=== PATIENT | male | born 1955 | race Caucasian/White ===

== ENCOUNTER 2018-03-23 14:42 | Inpatient (IN) | payer OTHER ==
[~2018-03-23] VITALS: Ht 182.9 cm; Wt 104.4 kg
[~2018-03-23 14:42] MED LIST: ABILIFY5 MG PO; ADVAIR 250-501 EACH IH; ASA81EC PO; ASPIR-LOW81 MG PO; CARDIZEM CD180 MG PO; DIGOXIN125 MCG PO; DOXYCYCLINE HY100 MG PO; FAMOTIDINE20 MG PO; GABAPENTIN100 MG PO; K DUR10 MEQ PO; LASIX40 MG PO; LIPITOR20 MG PO; LOPRESSOR25 MG PO; MIRTAZAPINE15 MG PO; MTP50T PO; PREDNISONE20 MG PO; PREDNISONE5 MG PO; PROAIR HFA INH8.5 GM IH; PROAIR HFA INH8.5 GM INH; SPIRIVA18 MCG INH; VITAMIN B-1100 MG PO; XARELTO10 MG PO; XARELTO15 MG PO; ZITHROMAX500 MG PO; ZOCOR20 MG PO
--- OUTSIDE RECORDS SUMMARY | 2018-03-23 14:47 | XMS REPORT | Continuity of Care Document ---
Author Author [facility] Interface Address Unknown Phone Unavailable Problems Problem Status Onset Date Classification Date Reported Comments Source BRONCHITIS, CHEST PAIN Active 2015 [facility] SOB / CHEST PAIN Active 2015 [facility] CHEST PAIN, BRADYCARDIA, SUICIDAL IDEATI Active 08/18/2015 [facility] WEAK Active 08/18/2015 [facility] DEBILITY Active 08/07/2015 [facility] DEBILITATED Active 08/07/2015 [facility] LEFT CORONARY ANOMALY Active 07/20/2015 [facility] Anxiety Active Problem 12/05/2015 [facility] COPD Active Problem 12/05/2015 [facility] Depressed Active Problem 12/05/2015 [facility] Hypertension Active Problem 12/05/2015 [facility] Major depressive disorder Active Problem 12/05/2015 [facility] Pacemaker Active Problem 12/05/2015 [facility] Psychomotor retardation Active Problem 12/05/2015 [facility] Pulmonary embolism Resolved Problem 12/05/2015 [facility] Tobacco abuse Active Problem 12/05/2015 [facility] Unstable angina Active Problem 12/05/2015 [facility] OTHER SPECIFIED CONGENITAL DEFORMITIES Active [facility] OTHER MALAISE Active [facility] BRONCHITIS, NOT SPECIFIED ACUTE OR CH Active [facility] Medications Medication Details Route Status Patient Instructions Ordering Provider Order Date Source rivaroxaban 20 mg oral tablet 20 mg=1 tab, PO, QPM, 0 Refill(s) Active 12/02/2015 [facility] lamoTRIgine 25 mg oral tablet 25 mg=1 tab, PO, BID, 0 Refill(s) Active 12/02/2015 [facility] QUEtiapine 25 mg oral tablet 25 mg=1 tab, PO, Q4H, PRN Anxiety, 0 Refill(s) Active 12/02/2015 [facility] Seroquel 25 mg, 1 tab, Route: PO, Drug form: TAB, TID, Dosing Weight 105.455, kg, Start date: 12/02/15 13:00:00 CDT, Duration: 30 day, Stop date: 01/01/16 9:00:00 CDTNotes: (Same as: SEROquel) Inactive 12/02/2015 [facility] Seroquel 25 mg, 1 tab, Route: PO, Drug form: TAB, Q4H, Dosing Weight 105.455, kg, PRN Anxiety, Start date: 12/02/15 12:54:00 CDT, Duration: 30 day, Stop date: 01/01/16 12:53:00 CDTNotes: (Same as: SEROquel) Inactive 12/02/2015 [facility] lamoTRIgine 25 mg oral tablet 25 mg, 1 tab, Route: PO, Drug form: TAB, BID, Dosing Weight 105.455, kg, Priority: NOW, Start date: 12/02/15 11:31:00 CDT, Duration: 30 day, Stop date: 01/01/16 9:00:00 CDTNotes: (Same as:LaMICtal) Inactive 12/02/2015 [facility] Mirtazapine 30 mg, 2 tab, Route: PO, Drug form: TAB, Bedtime, Dosing Weight 105.455, kg, Start date: 11/29/15 21:00:00 CDT, Duration: 30 day, Stop date: 12/28/15 21:00:00 CDTNotes: (Same as:Remeron) No Longer Active 11/30/2015 [facility] Seroquel 50 mg, 2 tab, Route: PO, Drug form: TAB, Bedtime, Dosing Weight 105.455, kg, Start date: 11/29/15 21:00:00 CDT, Stop date: 12/28/15 21:00:00 CDTNotes: (Same as: SEROquel) No Longer Active 11/30/2015 [facility] Xarelto 20 mg, 1 tab, Route: PO, Drug form: TAB, QPM, Dosing Weight 105.455, kg, Start date: 11/29/15 20:00:00 CDT, Duration: 30 day, Stop date: 12/28/15 20:00:00 CDTNotes: (Same as: Xarelto) Administer with food No Longer Active 11/30/2015 [facility] Seroquel 25 mg, 1 tab, Route: PO, Drug form: TAB, Q6H, Dosing Weight 105.455, kg, PRN Agitation, Start date: 11/29/15 19:38:00 CDT, Duration: 30 day, Stop date: 12/29/15 19:37:00 CDTNotes: (Same as: SEROquel) No Longer Active 11/30/2015 [facility] Acetaminophen 300 MG / Codeine Phosphate 30 MG Oral Tablet [Tylenol with Codeine #3] 1 tab, Route: PO, Drug Form: TAB, Dosing Weight 105.455, kg, Q6H, PRN Pain Score 6-10, Start date: 11/29/15 18:44:00 CDT, Duration: 30 day, Stop date: 12/29/15 18:43:00 CDTNotes: Do not exceed 4gm/day of acetaminophen. (Same as: Tylenol with Codeine # 3) No Longer Active 11/29/2015 [facility] POLYETHYLENE GLYCOL 3350 17 gm, 1 pkt, Route: PO, Drug form: PWDR, BID, Dosing Weight 105.455, kg, Start date: 11/29/15 9:00:00 CDT, Duration: 30 day, Stop date: 12/28/15 17:00:00 CDTNotes: Dissolve in 8 oz of water or juice. (Same as: Miralax) No Longer Active 11/29/2015 [facility] Folic Acid 1 mg, 1 tab, Route: PO, Drug form: TAB, Daily, Dosing Weight 105.455, kg, Start date: 11/29/15 9:00:00 CDT, Duration: 30 day, Stop date: 12/28/15 9:00:00 CDTNotes: (Same as: Folvite) No Longer Active 11/29/2015 [facility] Flonase 0.05 mg/inh nasal spray 2 spray, Route: Each Affected Nostril, Drug Form: SPRY, Dosing Weight 105.455, kg, Daily, Start date: 11/29/15 9:00:00 CDT, Duration: 30 day, Stop date: 12/28/15 9:00:00 CDTNotes: (Same as: Flonase) No Longer Active 11/29/2015 [facility] carvedilol 3.125 mg, 1 tab, Route: PO, Drug form: TAB, Q12H, Dosing Weight 105.455, kg, Start date: 11/29/15 9:00:00 CDT, Duration: 30 day, Stop date: 12/28/15 21:00:00 CDTNotes: Give with food. (Same As: Coreg) No Longer Active 11/29/2015 [facility] Budesonide 1 inhalation, Route: INHALATION, Drug form: PWDR, BID, Dosing Weight 105.455, kg, Start date: 11/29/15 9:00:00 CDT, Duration: 30 day, Stop date: 12/28/15 17:00:00 CDTNotes: Same as Pulmicort Flexhaler Non-Formulary Drug No Longer Active 11/29/2015 [facility] Aspirin 81 mg, 1 tab, Route: PO, Drug form: ECTAB, Daily, Dosing Weight 105.455, kg, Start date: 11/29/15 9:00:00 CDT, Duration: 30 day, Stop date: 12/28/15 9:00:00 CDTNotes: Do not crush or chew. (Same As: Ecotrin) No Longer Active 11/29/2015 [facility] Thiamine 100 mg, 1 tab, Route: PO, Drug form: TAB, Daily, Dosing Weight 105.455, kg, Start date: 11/29/15 9:00:00 CDT, Duration: 30 day, Stop date: 12/28/15 9:00:00 CDTNotes: (Same As: Vitamin B1) No Longer Active 11/29/2015 [facility] Nitroglycerin 0.4 MG Sublingual Tablet 0.4 mg, 1 tab, Route: SL, Drug form: TAB, Q5Min, Dosing Weight 105.455, kg, PRN Chest Pain, Start date: 11/28/15 21:08:00 CDT, Duration: 30 day, Stop date: 12/28/15 21:07:00 CDT Inactive 11/29/2015 [facility] Calcium Carbonate 500 MG Chewable Tablet 500 mg, 1 tab, Route: CHEW, Drug form: CHEWTAB, TID, Dosing Weight 105.455, kg, PRN Indigestion, Start date: 11/28/15 21:07:00 CDT, Duration: 30 day, Stop date: 12/28/15 21:06:00 CDTNotes: (Same As: César) Calcium Carbonate 500 yr=780 mg elemental calcium Dose= mg calcium carbonate ( mg elemental calcium) No Longer Active 11/29/2015 [facility] 200 ACTUAT Albuterol 0.09 MG/ACTUAT Metered Dose Inhaler 2 puff, Route: INHALATION, Drug Form: AERO/A, Dosing Weight 105.455, kg, QID, PRN Wheezing, Start date: 11/28/15 21:07:00 CDT, Duration: 30 day, Stop date: 12/28/15 21:06:00 CDTNotes: Albuterol 90 microgram/inh 8gm HFA WASTE: Aerosol - Return to Pharmacy Same as: Kenneth Oakes No Longer Active 11/29/2015 [facility] Saline Flush 0.9% 10 ml, Route: IVP, Drug Form: INJ, Dosing Weight 113.636, kg, Q12H, Start date: 11/28/15 21:00:00 CDT, Duration: 30 day, Stop date: 12/28/15 9:00:00 CDTNotes: (Same as: BD Posiflush) No Longer Active 11/29/2015 [facility] Albuterol 0.83 MG/ML Inhalant Solution 2.5 mg, 3.01 mL, Route: INHALATION, Drug form: SOLN, RQ6H, Dosing Weight 113.636, kg, Start date: 11/28/15 20:00:00 CDT, Duration: 30 day, Stop date: 12/28/15 14:00:00 CDTNotes: SEE RT DOCUMENTATION (Same as: Proventil) No Longer Active 11/29/2015 [facility] Lovenox 105.455 mg, 0.7 mL, Route: SUB-Q, Drug form: INJ, [id number], Dosing Weight 105.455, kg, Start date: 11/28/15 17:00:00 CDT, Duration: 30 day, Stop date: 12/28/15 9:00:00 CDTNotes: Nurse to ensure document ation of patient education per anticoagulation policy. (Same as: Lovenox) No Longer Active 2015 [facility] Alprazolam 1 MG Oral Tablet [Xanax] 1 mg, 1 tab, Route: PO, Drug form: TAB, ONCE, Dosing Weight 105.455, kg, PRN Anxiety, Start date: 11/28/15 16:13:00 CDT, Stop date: 12/28/15 16:12:00 CDTNotes: With food or milk (Same as: Xanax) Inactive 2015 [facility] Saline Flush 0.9% 10 ml, Route: IVP, Drug Form: INJ, Dosing Weight 113.636, kg, PRN, PRN Line Flush, Start date: 11/28/15 15:24:00 CDT, Duration: 30 day, Stop date: 12/28/15 15:23:00 CDTNotes: (Same as: BD Posiflush) No Longer Active 2015 [facility] Nitroglycerin 0.4 mg, 1 tab, Route: SL, Drug form: TAB, Q5Min, Dosing Weight 113.636, kg, PRN Chest Pain, Start date: 11/28/15 15:24:00 CDT, Duration: 3 doses or times, Stop date: Limited # of timesNotes: (Same as :Nitroquick, Nitrostat) "Do Not Crush" Sublingual tablet No Longer Active 2015 [facility] Morphine 2 mg, 1 mL, Route: IVP, Drug form: INJ, Q15Min, Dosing Weight 113.636, kg, PRN Chest Pain, Start date: 11/28/15 15:24:00 CDT, Duration: 2 doses or times, Stop date: Limited # of timesNotes: (Same as: MORPhine Sulfate) No Longer Active 2015 [facility] Ondansetron 4 mg, 1 tab, Route: PO, Drug form: TAB, Q8H, Dosing Weight 113.636, kg, PRN Nausea & Vomiting, Start date: 11/28/15 15:24:00 CDT, Duration: 30 day, Stop date: 12/28/15 15:23:00 CDTNotes: (Same as: Zofran) No Longer Active 2015 [facility] Aspirin 325 MG Oral Tablet 325 mg, 1 tab, Route: PO, Drug form: TAB, ONCE, Dosing Weight 113.636, kg, Start date: 11/28/15 15:24:00 CDT, Stop date: 11/28/15 15:24:00 CDTNotes: Take with food. Inactive 2015 [facility] Sodium Chloride 0.154 MEQ/ML Injectable Solution 1,000 mL, 1,000 ml/hr, Infuse Over: 1 hr, Route: IV, ONCE, Priority: STAT, Dosing Weight 113.636 kg, Start date: 11/28/15 13:34:00 CDT, Duration: 1 doses or times, Stop date: 11/28/15 13:34:00 CDT Inactive 2015 [facility] Morphine 4 mg, Route: IVP, Drug form: INJ, ONCE, Dosing Weight 113.636, kg, Priority: STAT, Start date: 11/28/15 13:34:00 CDT, Stop date: 11/28/15 13:34:00 CDT Inactive 2015 [facility] Nitroglycerin 0.02 MG/MG Topical Ointment 0.5 inch, Route: TOP, Dosing Weight 113.636, kg, ONCE, STAT, Start date: 11/28/15 13:32:00 CDT, Stop date: 11/28/15 13:32:00 CDT Inactive 2015 [facility] Ipratropium 0.5 mg, 2.5 mL, Route: NEB, Drug form: SOLN, ONCE, Dosing Weight 113.636, kg, Priority: STAT, Start date: 11/28/15 10:59:00 CDT, Stop date: 11/28/15 10:59:00 CDTNotes: SEE RT DOCUMENTATION (Same as:Stacey romero) Inactive 2015 [facility] Albuterol 0.83 MG/ML Inhalant Solution 10 mg, Route: NEB, Drug form: SOLN, Continuous, Dosing Weight 113.636, kg, Priority: STAT, Start date: 11/28/15 10:59:00 CDT, Duration: 30 day, Stop date: 12/28/15 10:58:00 CDT Inactive 2015 [facility] methylPREDNISolone SODium SUCCinate 125 mg, 2 mL, Route: IVP, Drug form: INJ, ONCE, Dosing Weight 113.636, kg, Priority: STAT, Start date: 11/28/15 10:59:00 CDT, Stop date: 11/28/15 10:59:00 CDTNotes: (Same as:Solu-MEDROL, A-Methapred) Inactive 2015 [facility] Magnesium Sulfate 2 gm, Route: IVPB, ONCE, Dosing Weight 113.636, kg, Priority: STAT, Start date: 11/28/15 10:59:00 CDT, Stop date: 11/28/15 10:59:00 CDT Inactive 2015 [facility] Saline Flush 0.9% 10 mL, Route: IVP, Drug Form: INJ, Dosing Weight 113.636, kg, PRN, PRN Line Flush, Start date: 11/28/15 10:59:00 CDT, Duration: 30 day, Stop date: 12/28/15 10:58:00 CDTNotes: (Same as: BD Posiflush) Inactive 2015 [facility] Ketoconazole 20 MG/ML Medicated Shampoo 1 appl, Route: TOP, QWed, Drug form: SHMP, Start date: 08/23/15 9:00:00 CDT, Duration: 30 day, Stop date: 09/20/15 9:00:00 CDT No Longer Active 08/23/2015 [facility] predniSONE 5 mg, 1 tab, Route: PO, Drug form: TAB, Daily, Start date: 08/20/15 9:00:00 CDT, Duration: 3 doses or times, Stop date: 08/22/15 9:00:00 CDTNotes: Take with food. No Longer Active 08/20/2015 [facility] Xarelto 15 mg, 1 tab, Route: PO, Drug form: TAB, Q12H, Dosing Weight 95, kg, Start date: 08/20/15 9:00:00 CDT, Duration: 30 day, Stop date: 09/18/15 21:00:00 CDTNotes: (Same as: Xarelto) Administer with food No Longer Active 08/20/2015 [facility] {42 (rivaroxaban 15 MG Oral Tablet [Xarelto]) / 9 (rivaroxaban 20 MG Oral Tablet [Xarelto]) } Pack [Xarelto Kit] 1 tab, PO, BID-Meals, Take 15 mg tablets twice daily with food for 21 days. Beginning day 22,take one 20 mg tablet daily with food for the remainder of therapy., X 30 day, # 1 pkt, 0 Refill(s) Active 08/20/2015 [facility] Pulmicort Respules 0.5 mg, 2 mL, Route: NEB, Drug form: SUSP, RBID, Start date: 08/19/15 22:00:00 CDT, Duration: 30 day, Stop date: 09/18/15 20:00:00 CDTNotes: (Same As: Pulmicort) No Longer Active 08/20/2015 [facility] Thiamine 100 mg, 1 tab, Route: PO, Drug form: TAB, Daily, Dosing Weight 95, kg, Start date: 08/19/15 9:00:00 CDT, Duration: 30 day, Stop date: 09/17/15 9:00:00 CDTNotes: (Same As: Vitamin B1) No Longer Active 08/19/2015 [facility] Ketoconazole 20 MG/ML Medicated Shampoo 1 appl, Route: TOP, QSat, Drug form: SHMP, Start date: 08/19/15 9:00:00 CDT, Duration: 30 day, Stop date: 09/16/15 9:00:00 CDT No Longer Active 08/19/2015 [facility] Folic Acid 1 mg, 1 tab, Route: PO, Drug form: TAB, Daily, Dosing Weight 95, kg, Start date: 08/19/15 9:00:00 CDT, Duration: 30 day, Stop date: 09/17/15 9:00:00 CDTNotes: (Same as: Folvite) No Longer Active 08/19/2015 [facility] Flonase 0.05 mg/inh nasal spray 2 spray, Route: Each Affected Nostril, Drug Form: SPRY, Dosing Weight 95, kg, Daily, Start date: 08/19/15 9:00:00 CDT, Duration: 30 day, Stop date: 09/17/15 9:00:00 CDTNotes: (Same as: Flonase) No Longer Active 08/19/2015 [facility] Aspirin 81 mg, 1 tab, Route: PO, Drug form: ECTAB, Daily, Dosing Weight 95, kg, Start date: 08/19/15 9:00:00 CDT, Duration: 30 day, Stop date: 09/17/15 9:00:00 CDTNotes: Do not crush or chew. (Same As: Ecotrin) No Longer Active 08/19/2015 [facility] Bacitracin 0.4 UNT/MG / Neomycin 0.0035 MG/MG / Polymyxin B 10 UNT/MG Ophthalmic Ointment 1 appl, Route: BOTH EYES, Q3H, Drug form: OINT, Start date: 08/18/15 23:00:00 CDT, Duration: 30 day, Stop date: 09/17/15 20:00:00 CDTNotes: (bacitracin/neomycin/ polymyxin B 3.5 gm oph OIN) (Same As: Neosporin, Triple Antibiotic) No Longer Active 08/19/2015 [facility] Mirtazapine 30 mg, 2 tab, Route: PO, Drug form: TAB, Bedtime, Dosing Weight 95, kg, Start date: 08/18/15 21:00:00 CDT, Duration: 30 day, Stop date: 09/16/15 21:00:00 CDTNotes: (Same as:Remeron) No Longer Active 08/19/2015 [facility] carvedilol 3.125 mg, 1 tab, Route: PO, Drug form: TAB, Q12H, Dosing Weight 95, kg, Start date: 08/18/15 21:00:00 CDT, Duration: 30 day, Stop date: 09/17/15 9:00:00 CDTNotes: Give with food. (Same As: Coreg) No Longer Active 08/19/2015 [facility] Budesonide 1 inhalation, Route: INHALATION, Drug form: PWDR, RBID, Dosing Weight 95, kg, Start date: 08/18/15 20:00:00 CDT, Duration: 30 day, Stop date: 09/17/15 8:00:00 CDTNotes: Same as Pulmicort Flexhaler Non- Formulary Drug Inactive 08/19/2015 [facility] Polymyxin B 92676 UNT/ML / Trimethoprim 1 MG/ML Ophthalmic Solution 1 drp, Route: BOTH EYES, Q3H, Start date: 08/18/15 17:00:00 CDT, Duration: 30 day, Stop date: 09/17/15 14:00:00 CDT Inactive 08/18/2015 [facility] Warfarin 7.5 mg, 1 tab, Route: PO, Drug form: TAB, QPM, Dosing Weight 95, kg, Start date: 08/18/15 17:00:00 CDT, Duration: 30 day, Stop date: 09/16/15 17:00:00 CDTNotes: Nurse to ensure documentation of patient education per anticoagulation policy. Avoid large intake of vitamin-K containing foods diet. WASTE: F/P - P Waste Black; E - P Waste Black (Same As: Coumadin) No Longer Active 08/18/2015 [facility] POLYETHYLENE GLYCOL 3350 17 gm, Route: PO, Drug form: PDR/REC, BID, Dosing Weight 95, kg, Start date: 08/18/15 17:00:00 CDT, Duration: 30 day, Stop date: 09/17/15 9:00:00 CDTNotes: (Same as: MiraLax) No Longer Active 08/18/2015 [facility] Polymyxin B 69617 UNT/ML / Trimethoprim 1 MG/ML Ophthalmic Solution 1 drp, BOTH EYES, Q3H, X 7 day, # 10 mL, 0 Refill(s) No Longer Active 08/18/2015 [facility] remove patch 1 patch, Route: TOP, Q24H, Drug form: ERFILM, Start date: 08/18/15 15:00:00 CDT, Duration: 30 day, Stop date: 09/16/15 15:00:00 CDTNotes: Remove patch 12 hours after application each day. No Longer Active 08/18/2015 [facility] Lidocaine Hydrochloride 0.05 MG/MG Transdermal Patch [Lidoderm] 1 patch, Route: TOP, Q24H, Drug form: FILM, Start date: 08/18/15 15:00:00 CDT, Duration: 30 day, Stop date: 09/16/15 15:00:00 CDTNotes: Apply only once for up to 12 hours in a 24-hour period (12 hours on and 12 hours off). (Same as: Lidoderm) "Remove old patch before application of new patch" No Longer Active 08/18/2015 [facility] predniSONE 10 mg, 1 tab, Route: PO, Drug form: TAB, Daily, Start date: 08/18/15 14:27:00 CDT, Duration: 2 doses or times, Stop date: 08/19/15 9:00:00 CDTNotes: (Same as: PredniSONE) Take with food. No Longer Active 08/18/2015 [facility] tramadol hydrochloride 50 MG Oral Tablet [Ultram] 50 mg, 1 tab, Route: PO, Drug form: TAB, Q6H, Dosing Weight 95, kg, PRN Pain Score 6- 10, Start date: 08/18/15 14:08:00 CDT, Duration: 30 day, Stop date: 09/17/15 14:07:00 CDTNotes: Not to exceed 400mg/day. (Same As: Ultram) No Longer Active 08/18/2015 [facility] Prednisone 1 MG Oral Tablet Dose: See Instructions, Route: SUB-Q, Drug form: TAB, Sliding Scale, PRN Blood Glucose Results, Start date: 08/18/15 14:08:00 CDT, Duration: 30 day, Stop date: 09/17/15 14:07:00 CDT Inactive 08/18/2015 [facility] Nitroglycerin 0.4 MG Sublingual Tablet 0.4 mg, 1 tab, Route: SL, Drug form: TAB, Q5Min, Dosing Weight 95, kg, PRN Chest Pain, Start date: 08/18/15 14:08:00 CDT, Duration: 30 day, Stop date: 09/17/15 14:07:00 CDTNotes: (Same as:Nitroquick, Nitrostat) "Do Not Crush" Sublingual tablet No Longer Active 08/18/2015 [facility] hydrocortisone topical 2.5% cream 1 appl, Route: TOP, BID, Drug form: CRM, PRN Itching, Start date: 08/18/15 14:08:00 CDT, Duration: 30 day, Stop date: 09/17/15 14:07:00 CDT No Longer Active 08/18/2015 [facility] Calcium Carbonate 500 MG Chewable Tablet 500 mg, 1 tab, Route: CHEW, Drug form: CHEWTAB, TID, Dosing Weight 95, kg, PRN Indigestion, Start date: 08/18/15 14:08:00 CDT, Duration: 30 day, Stop date: 09/17/15 14:07:00 CDTNotes: (Same As: Tums) Calcium Carbonate 500 ct=881 mg elemental calcium Dose= mg calcium carbonate ( mg elemental calcium) No Longer Active 08/18/2015 [facility] 200 ACTUAT Albuterol 0.09 MG/ACTUAT Metered Dose Inhaler 2 puff, Route: INHALATION, Drug Form: AERO/A, Dosing Weight 95, kg, RQID, PRN Wheezing, Start date: 08/18/15 14:08:00 CDT, Duration: 30 day, Stop date: 09/17/15 14:07:00 CDT No Longer Active 08/18/2015 [facility] Acetaminophen 1,000 mg, 2 tab, Route: PO, Drug form: TAB, Q6H, Dosing Weight 95, kg, PRN Pain Score 1-5, Start date: 08/18/15 14:07:00 CDT, Duration: 30 day, Stop date: 09/17/15 14:06:00 CDTNotes: Max acetaminophen 4000 mg/day (4 gm/day). (Same as: Tylenol Extra Strength) No Longer Active 08/18/2015 [facility] Sodium Chloride 0.9% IV 25 mL, Route: IV, Start date: 08/18/15 14:03:00 CDT, Duration: 30 day, Stop date: 09/17/15 14:02:00 CDT, PRN Line Flush No Longer Active 08/18/2015 [facility] Artificial Tears 1 drp, Route: Each Affected Eye, QID, Drug form: SOLN, PRN Dry Eyes, Start date: 08/18/15 13:56:00 CDT, Duration: 30 day, Stop date: 09/17/15 13:55:00 CDTNotes: (Same as: Aquasite) No Longer Active 08/18/2015 [facility] Diphenhydramine 25 mg, 0.5 mL, Route: IV, Drug form: INJ, Q6H, Dosing Weight 95, kg, PRN as needed for itching, Start date: 08/18/15 13:55:00 CDT, Duration: 30 day, Stop date: 09/17/15 13:54:00 CDTNotes: (Same as: Benadryl) No Longer Active 08/18/2015 [facility] Lorazepam 1 mg, 0.5 mL, Route: IV, Drug form: INJ, Q6H, Dosing Weight 95, kg, PRN as needed for anxiety, Start date: 08/18/15 13:55:00 CDT, Stop date: 09/17/15 13:54:00 CDTNotes: (Same as: Ativan) No Longer Active 08/18/2015 [facility] Ketoconazole 20 MG/ML Medicated Shampoo 1 appl, TOP, QSat, 0 Refill(s) Active 08/18/2015 [facility] Ketoconazole 20 MG/ML Medicated Shampoo 1 appl, TOP, QWed, 0 Refill(s) Active 08/18/2015 [facility] Saline Flush 0.9% 10 mL, Route: IVP, Drug Form: INJ, Dosing Weight 99.574, kg, PRN, PRN Line Flush, Start date: 08/18/15 8:30:00 CDT, Duration: 30 day, Stop date: 09/17/15 8:29:00 CDTNotes: (Same as: BD Posiflush) No Longer Active 08/18/2015 [facility] Ativan 1 mg, 1 tab, Route: PO, Drug form: TAB, ONCE, Dosing Weight 99.574, kg, Start date: 08/17/15 23:25:00 CDT, Stop date: 08/17/15 23:25:00 CDTNotes: (Same as: Ativan) Inactive 08/18/2015 [facility] tramadol hydrochloride 50 MG Oral Tablet [Ultram] 50 mg=1 tab, PO, Q6H, PRN Pain Score 6-10, # 1 tab, 0 Refill(s), other Active 08/18/2015 [facility] predniSONE 10 mg oral tablet See Instructions, Take 1 tab (10mg) PO daily for 2 days and then take 1/2 tab (5mg) PO daily for 3 days and stop. Take w/ food., # 1 tab, 0 Refill(s), other Active 08/18/2015 [facility] 200 ACTUAT Albuterol 0.09 MG/ACTUAT Metered Dose Inhaler 2 puff, INHALATION, QID, PRN as needed for wheezing, # 3 ea, 0 Refill(s), other Active 08/18/2015 [facility] thiamine 100 mg oral tablet 100 mg=1 tab, PO, Daily, 0 Refill(s) Active 08/18/2015 [facility] tramadol hydrochloride 50 MG Oral Tablet [Ultram] 50 mg=1 tab, PO, Q4H, PRN Pain Score 4-6, 0 Refill(s) Inactive 08/18/2015 [facility] POLYETHYLENE GLYCOL 3350 17 gm, PO, BID, 0 Refill(s) Active 08/18/2015 [facility] methocarbamol 500 mg oral tablet 500 mg=1 tab, PO, QID, PRN Muscle Spasms, per [place] [facility] [place] robaxin and not taking, 0 Refill(s) No Longer Active 08/18/2015 [facility] Lidocaine Hydrochloride 0.05 MG/MG Transdermal Patch [Lidoderm] 1 patch, TOP, Q24H, Remove after 12 hours, 0 Refill(s) Active 08/18/2015 [facility] hydrocortisone topical 2.5% cream 1 appl, TOP, BID, PRN Itching, 0 Refill(s) Active 08/18/2015 [facility] Folic Acid 1 MG Oral Tablet 1 mg=1 tab, PO, Daily, 0 Refill(s) Active 08/18/2015 [facility] Calcium Carbonate 500 MG Chewable Tablet 500 mg=1 tab, CHEW, TID, PRN Indigestion, 0 Refill(s) Active 08/18/2015 [facility] Flonase 0.05 mg/inh nasal spray 100 microgram=2 spray, Each Affected Nostril, Daily, 0 Refill(s) Active 08/18/2015 [facility] busPIRone 5 mg oral tablet 5 mg=1 tab, PO, TID, Investigating the current use. New rx from 08/17/15 but not seen on papaers provided by facility. RN Sonny will fax the list, 0 Refill(s) No Longer Active 08/18/2015 [facility] mirtazapine 30 mg oral tablet 30 mg=1 tab, PO, Bedtime, 0 Refill(s) Active 08/18/2015 [facility] warfarin 2.5 mg oral tablet 7.5 mg, PO, QPM, # 1 tab, 0 Refill(s), other No Longer Active 08/18/2015 [facility] acetaminophen 500 mg oral tablet 1,000 mg=2 tab, PO, Q6H, PRN Pain Score 1-5, 0 Refill(s) Active 08/18/2015 [facility] Warfarin 7.5 mg, 1 tab, Route: PO, Drug form: TAB, Q5PM, Dosing Weight 99.574, kg, Start date: 08/17/15 17:00:00 CDT, Duration: 1 doses or times, Stop date: 08/17/15 17:00:00 CDTNotes: Nurse to ensure documentation of patient education per anticoagulation policy. Avoid large intake of vitamin-K containing foods diet. WASTE: F/P - P Waste Black; E - P Waste Black (Same As: Coumadin) Inactive 08/17/2015 [facility] Buspar 5 mg, 1 tab, Route: PO, Drug form: TAB, TID, Dosing Weight 99.574, kg, Start date: 08/17/15 9:00:00 CDT, Duration: 30 day, Stop date: 09/15/15 17:00:00 CDTNotes: (Same As: BuSpar) No Longer Active 08/17/2015 [facility] Warfarin 7.5 mg, 1 tab, Route: PO, Drug form: TAB, Q5PM, Dosing Weight 99.574, kg, Start date: 08/16/15 17:00:00 CDT, Duration: 1 doses or times, Stop date: 08/16/15 17:00:00 CDTNotes: Nurse to ensure documentation of patient education per anticoagulation policy. Avoid large intake of vitamin-K containing foods diet. WASTE: F/P - P Waste Black; E - P Waste Black (Same As: Coumadin) Inactive 08/16/2015 [facility] Methocarbamol 500 mg, 1 tab, Route: PO, Drug form: TAB, QID, Dosing Weight 99.574, kg, PRN Muscle Spasms, Start date: 08/15/15 22:54:00 CDT, Duration: 30 day, Stop date: 09/14/15 22:53:00 CDTNotes: (Same as:Robaxin) No Longer Active 08/16/2015 [facility] Ativan 1 mg, 0.5 mL, Route: IVP, Drug form: INJ, ONCE, Dosing Weight 99.574, kg, Start date: 08/15/15 19:39:00 CDT, Stop date: 08/15/15 19:39:00 CDTNotes: (Same as: Ativan) Inactive 08/16/2015 [facility] Warfarin 6 mg, 1 tab, Route: PO, Drug form: TAB, Q5PM, Dosing Weight 99.574, kg, Start date: 08/15/15 17:00:00 CDT, Duration: 1 doses or times, Stop date: 08/15/15 17:00:00 CDTNotes: Nurse to ensure documentation of patient education per anticoagulation policy. Avoid large intake of vitamin-K containing foods diet. WASTE: F/P - P Waste Black; E - P Waste Black (Same As: Coumadin) Inactive 08/15/2015 [facility] Clonazepam 0.25 mg, 0.5 tab, Route: PO, Drug form: TAB, ONCE, Dosing Weight 99.574, kg, Priority: NOW, Start date: 08/15/15 10:09:00 CDT, Stop date: 08/15/15 10:09:00 CDTNotes: (Same As: KlonoPIN) Inactive 08/15/2015 [facility] Warfarin 5 mg, 1 tab, Route: PO, Drug form: TAB, Q5PM, Dosing Weight 99.574, kg, Start date: 08/14/15 17:00:00 CDT, Duration: 1 doses or times, Stop date: 08/14/15 17:00:00 CDTNotes: Nurse to ensure documentation of patient education per anticoagulation policy. Avoid large intake of vitamin-K containing foods diet. WASTE: F/P - P Waste Black; E - P Waste Black (Same As: Coumadin) Inactive 08/14/2015 [facility] remove patch 1 patch, Route: TOP, Bedtime, Drug form: ERFILM, Start date: 08/14/15 1:00:00 CDT, Duration: 30 day, Stop date: 09/12/15 1:00:00 CDTNotes: Remove patch 12 hours after application each day. No Longer Active 08/14/2015 [facility] Warfarin 5 mg, 1 tab, Route: PO, Drug form: TAB, Q5PM, Dosing Weight 99.574, kg, Start date: 08/13/15 17:00:00 CDT, Duration: 1 doses or times, Stop date: 08/13/15 17:00:00 CDTNotes: Nurse to ensure documentation of patient education per anticoagulation policy. Avoid large intake of vitamin-K containing foods diet. WASTE: F/P - P Waste Black; E - P Waste Black (Same As: Coumadin) Inactive 08/13/2015 [facility] Miralax 17 gm, 1 pkt, Route: PO, Drug form: PWDR, BID, Dosing Weight 99.574, kg, Priority: NOW, Start date: 08/13/15 14:34:00 CDT, Duration: 30 day, Stop date: 09/12/15 9:00:00 CDTNotes: Dissolve in 8 oz of water or juice. (Same as: Miralax) No Longer Active 08/13/2015 [facility] Dulcolax Laxative 10 mg, 1 supp, Route: [place], Drug form: SUPP, ONCE, Dosing Weight 99.574, kg, Priority: NOW, Start date: 08/13/15 14:29:00 CDT, Stop date: 08/13/15 14:29:00 CDTNotes: (Same As: Dulcolax, [place]- Lax) Inactive 08/13/2015 [facility] Lidocaine Hydrochloride 0.05 MG/MG Transdermal Patch [Lidoderm] 1 patch, Route: TOP, Q24H, Drug form: FILM, Priority: Now, Start date: 08/13/15 13:00:00 CDT, Duration: 30 day, Stop date: 09/11/15 13:00:00 CDT, Remove after 12 hoursNotes: Apply only once for up to 12 hours in a 24-hour period (12 hours on and 12 hours off). (Same as: Lidoderm) "Remove old patch before application of new patch" No Longer Active 08/13/2015 [facility] Warfarin 6 mg, 1 tab, Route: PO, Drug form: TAB, Q5PM, Dosing Weight 99.574, kg, Start date: 08/12/15 17:00:00, Duration: 1 doses or times, Stop date: 08/12/15 17:00:00Notes: Nurse to ensure documentation of pat ient education per anticoagulation policy. Avoid large intake of vitamin-K containing foods diet. WASTE: F/P - P Waste Black; E - P Waste Black (Same As: Coumadin) Inactive 08/12/2015 [facility] warfarin 3 mg oral tablet 6 mg=2 tab, PO, Daily, # 30 tab, 0 Refill(s) No Longer Active 08/12/2015 [facility] 200 ACTUAT Albuterol 0.09 MG/ACTUAT Metered Dose Inhaler 2 puff, INHALATION, QID, # 3 ea, 0 Refill(s) No Longer Active 08/12/2015 [facility] predniSONE 10 mg oral tablet 20 mg=2 tab, PO, Daily, for 3 days then 1 tab daily for 3 days then 0.5 tab for 4 days., # 11 tab, 0 Refill(s) Inactive 08/12/2015 [facility] carvedilol 3.125 mg oral tablet 3.125 mg=1 tab, PO, Q12H, # 60 tab, 0 Refill(s) Active 08/12/2015 [facility] tramadol hydrochloride 50 MG Oral Tablet 50 mg=1 tab, PO, Q6H, PRN Pain, PRN for pain q 6 hrs, # 30 tab, 0 Refill(s) Inactive 08/12/2015 [facility] Nitroglycerin 0.4 MG Sublingual Tablet 0.4 mg=1 tab, SL, Q5Min, PRN Chest Pain, Give up to 3 doses. Call 911 if pain persists., # 100 tab, 0 Refill(s) Active 08/12/2015 [facility] mirtazapine 15 mg oral tablet 15 mg=1 tab, PO, Bedtime, # 30 tab, 0 Refill(s) No Longer Active 08/12/2015 [facility] budesonide 180 mcg/inh inhalation powder 1 puff, INHALATION, BID, # 2 ea, 0 Refill(s) Active 08/12/2015 [facility] Warfarin 7.5 mg, 1 tab, Route: PO, Drug form: TAB, Q5PM, Dosing Weight 99.574, kg, Start date: 08/11/15 17:00:00, Duration: 1 doses or times, Stop date: 08/11/15 17:00:00Notes: Nurse to ensure documentation of p atient education per anticoagulation policy. Avoid large intake of vitamin-K containing foods diet. WASTE: F/P - P Waste Black; E - P Waste Black (Same As: Coumadin) Inactive 08/11/2015 [facility] Warfarin 6 mg, 1 tab, Route: PO, Drug form: TAB, Q5PM, Dosing Weight 99.574, kg, Start date: 08/10/15 17:00:00, Duration: 1 doses or times, Stop date: 08/10/15 17:00:00Notes: Nurse to ensure documentation of pat ient education per anticoagulation policy. Avoid large intake of vitamin-K containing foods diet. WASTE: F/P - P Waste Black; E - P Waste Black (Same As: Coumadin) Inactive 08/10/2015 [facility] Warfarin 7.5 mg, 1 tab, Route: PO, Drug form: TAB, ONCE, Dosing Weight 99.574, kg, Priority: NOW, Start date: 08/09/15 18:12:00, Stop date: 08/09/15 18:12:00Notes: Nurse to ensure documentation of patient education per anticoagulation policy. Avoid large intake of vitamin-K containing foods diet. WASTE: F/P - P Waste Black; E - P Waste Black (Same As: Coumadin) Inactive 08/09/2015 [facility] Oxycodone Hydrochloride 5 MG Oral Tablet 5 mg, 1 tab, Route: PO, Drug form: TAB, Q6H, Dosing Weight 99.574, kg, PRN Pain Score 7-10, Start date: 08/08/15 18:10:00 CDT, Duration: 30 day, Stop date: 09/07/15 18:09:00 CDTNotes: (Same as: Roxicodone) No Longer Active 08/08/2015 [facility] Tums 500 mg, 1 tab, Route: CHEW, Drug form: CHEWTAB, TID, Dosing Weight 99.574, kg, PRN Indigestion, Start date: 08/08/15 18:07:00, Duration: 30 day, Stop date: 09/07/15 18:06:00Notes: (Same As: Tums) Calcium Carbonate 500 et=503 mg elemental calcium Dose= mg calcium carbonate ( mg elemental calcium) No Longer Active 08/08/2015 [facility] Coumadin 7.5 mg, 1 tab, Route: PO, Drug form: TAB, Q5PM, Dosing Weight 99.574, kg, Start date: 08/08/15 17:00:00, Duration: 1 doses or times, Stop date: 08/08/15 17:00:00Notes: Nurse to ensure documentation of p atient education per anticoagulation policy. Avoid large intake of vitamin-K containing foods diet. WASTE: F/P - P Waste Black; E - P Waste Black (Same As: Coumadin) Inactive 08/08/2015 [facility] Tylenol 1,000 mg, 2 tab, Route: PO, Drug form: TAB, Q6H, Dosing Weight 99.574, kg, Start date: 08/07/15 18:00:00, Duration: 30 day, Stop date: 09/06/15 12:00:00Notes: Max acetaminophen 4000 mg/day (4 gm/day). (Same as: Tylenol Extra Strength) No Longer Active 08/07/2015 [facility] Coumadin 7.5 mg, 1 tab, Route: PO, Drug form: TAB, Q5PM, Dosing Weight 99.574, kg, Start date: 08/07/15 17:00:00, Duration: 1 doses or times, Stop date: 08/07/15 17:00:00Notes: Nurse to ensure documentation of p atient education per anticoagulation policy. Avoid large intake of vitamin-K containing foods diet. WASTE: F/P - P Waste Black; E - P Waste Black (Same As: Coumadin) Inactive 08/07/2015 [facility] tramadol hydrochloride 50 MG Oral Tablet [Ultram] 50 mg, 1 tab, Route: PO, Drug form: TAB, Q4H, Dosing Weight 99.574, kg, PRN Pain Score 4-6, Start date: 08/07/15 12:36:00, Duration: 30 day, Stop date: 09/06/15 12:35:00Notes: Not to exceed 400mg/day. (Same As: Ultram) No Longer Active 08/07/2015 [facility] naproxen sodium 550 mg, Route: PO, Drug form: TAB, BID, Dosing Weight 99.574, kg, PRN Pain Score 1-3, Start date: 08/07/15 12:27:00, Duration: 30 day, Stop date: 09/06/15 12:26:00 Inactive 08/07/2015 [facility] Acetaminophen 325 MG / Hydrocodone Bitartrate 5 MG Oral Tablet [[place] 5/325] 1 tab, Route: PO, Drug Form: TAB, Dosing Weight 99.574, kg, Q4H, PRN Pain Score 1-3, Start date: 08/07/15 10:36:00, Duration: 30 day, Stop date: 09/06/15 10:35:00Notes: (Same as: [place] 325/5) Do not exceed 4gm/day of acetaminophen. Inactive 08/07/2015 [facility] Coumadin 5 mg, 1 tab, Route: PO, Drug form: TAB, Q5PM, Dosing Weight 99.574, kg, Start date: 08/06/15 17:00:00, Duration: 1 doses or times, Stop date: 08/06/15 17:00:00Notes: Nurse to ensure documentation of pat ient education per anticoagulation policy. Avoid large intake of vitamin-K containing foods diet. WASTE: F/P - P Waste Black; E - P Waste Black (Same As: Coumadin) Inactive 08/06/2015 [facility] Ativan 0.5 mg, 1 tab, Route: PO, Drug form: TAB, TID, Dosing Weight 99.574, kg, PRN Anxiety, Start date: 08/06/15 9:39:00, Duration: 30 day, Stop date: 09/05/15 9:38:00Notes: (Same as: Ativan) No Longer Active 08/06/2015 [facility] Ativan 0.5 mg, 0.25 mL, Route: IV, Drug form: INJ, ONCE, Dosing Weight 99.574, kg, Start date: 08/06/15 9:06:00, Stop date: 08/06/15 9:06:00Notes: (Same as: Ativan) Inactive 08/06/2015 [facility] Ativan 0.5 mg, 0.25 mL, Route: IV, Drug form: INJ, ONCE, Dosing Weight 99.574, kg, Start date: 08/06/15 8:49:00, Stop date: 08/06/15 8:49:00Notes: (Same as: Ativan) Inactive 08/06/2015 [facility] Coumadin 10 mg, 1 tab, Route: PO, Drug form: TAB, Q5PM, Dosing Weight 99.574, kg, Start date: 08/05/15 17:00:00, Duration: 1 doses or times, Stop date: 08/05/15 17:00:00Notes: Nurse to ensure documentation of pa tient education per anticoagulation policy. Avoid large intake of vitamin-K containing foods diet. (Same As: Coumadin) WASTE: F/P - P Waste Black; E - P Waste Black Inactive 08/05/2015 [facility] Coreg 3.125 mg, 1 tab, Route: PO, Drug form: TAB, Q12H, Dosing Weight 99.574, kg, Priority: NOW, Start date: 08/04/15 20:48:00, Duration: 30 day, Stop date: 09/03/15 9:00:00Notes: Give with food. (Same As: Coreg) No Longer Active 08/05/2015 [facility] Warfarin 10 mg, 1 tab, Route: PO, Drug form: TAB, Q5PM, Dosing Weight 99.574, kg, Start date: 08/04/15 17:00:00, Duration: 1 doses or times, Stop date: 08/04/15 17:00:00Notes: Nurse to ensure documentation of pa tient education per anticoagulation policy. Avoid large intake of vitamin-K containing foods diet. (Same As: Coumadin) WASTE: F/P - P Waste Black; E - P Waste Black Inactive 08/04/2015 [facility] Prednisone 10 mg, 1 tab, Route: PO, Drug form: TAB, Daily, Dosing Weight 99.574, kg, Start date: 08/04/15 9:00:00 CDT, Stop date: 09/02/15 9:00:00 CDTNotes: (Same as: PredniSONE) Take with food. No Longer Active 08/04/2015 [facility] Coumadin 7.5 mg, 1 tab, Route: PO, Drug form: TAB, Q5PM, Dosing Weight 99.574, kg, Start date: 08/03/15 17:00:00, Duration: 1 doses or times, Stop date: 08/03/15 17:00:00Notes: Nurse to ensure documentation of p atient education per anticoagulation policy. Avoid large intake of vitamin-K containing foods diet. WASTE: F/P - P Waste Black; E - P Waste Black (Same As: Coumadin) Inactive 08/03/2015 [facility] K-Dur 20 40 mEq, 2 tab, Route: PO, Drug form: ERTAB, ONCE, Start date: 08/03/15 14:00:00, Stop date: 08/03/15 14:00:00Notes: (Same as: K- Dur 20) "Do Not Crush" With food and full glass of water Inactive 08/03/2015 [facility] Flonase 0.05 mg/inh nasal spray 2 spray, Route: Each Affected Nostril, Drug Form: SPRY, Dosing Weight 99.574, kg, Daily, NOW, Start date: 08/02/15 18:04:00, Stop date: 09/01/15 9:00:00Notes: (Same as: Flonase) No Longer Active 08/02/2015 [facility] Budesonide 0.25 MG/ML Inhalant Solution [Pulmicort] 0.5 mg, 2 mL, Route: NEB, Drug form: SUSP, BID, Dosing Weight 99.574, kg, Priority: NOW, Start date: 08/02/15 17:58:00, Duration: 30 day, Stop date: 09/01/15 17:00:00Notes: (Same As: Pulmicort) No Longer Active 08/02/2015 [facility] Coumadin 7.5 mg, 1 tab, Route: PO, Drug form: TAB, Q5PM, Dosing Weight 99.574, kg, Start date: 08/02/15 17:00:00, Duration: 1 doses or times, Stop date: 08/02/15 17:00:00Notes: Nurse to ensure documentation of p atient education per anticoagulation policy. Avoid large intake of vitamin-K containing foods diet. WASTE: F/P - P Waste Black; E - P Waste Black (Same As: Coumadin) Inactive 08/02/2015 [facility] Albuterol 0.83 MG/ML Inhalant Solution 2.49 mg, 3 mL, Route: PO, Drug form: SOLN, RQ4H, Dosing Weight 99.574, kg, PRN Wheezing, Start date: 08/02/15 10:21:00, Duration: 30 day, Stop date: 09/01/15 10:20:00Notes: SEE RT DOCUMENTATION (Same as: Proventil) No Longer Active 08/02/2015 [facility] Coumadin 7.5 mg, 1 tab, Route: PO, Drug form: TAB, Q5PM, Start date: 08/01/15 17:00:00, Duration: 1 day, Stop date: 08/01/15 17:00:00Notes: Nurse to ensure documentation of patient education per anticoagulation policy. Avoid large intake of vitamin-K containing foods diet. WASTE: F/P - P Waste Black; E - P Waste Black (Same As: Coumadin) Inactive 08/01/2015 [facility] Warfarin 5 mg, Route: PO, Q5PM, Dosing Weight 99.574, kg, Start date: 08/01/15 17:00:00, Duration: 1 doses or times, Stop date: 08/01/15 17:00:00 Inactive 08/01/2015 [facility] Bumex 1 mg, 1 tab, Route: PO, Drug form: TAB, Daily, Dosing Weight 99.574, kg, Start date: 08/01/15 9:00:00, Duration: 30 day, Stop date: 08/30/15 9:00:00Notes: (Same As: Bumex) No Longer Active 08/01/2015 [facility] trazodone 50 mg oral tablet 25 mg, 0.5 tab, Route: PO, Drug form: TAB, ONCE, Dosing Weight 99.574, kg, Start date: 07/31/15 23:00:00, Stop date: 07/31/15 23:00:00Notes: (Same As: Desyrel) Inactive 08/01/2015 [facility] Trazodone 25 mg, 0.5 tab, Route: PO, Drug form: TAB, ONCE, Dosing Weight 99.574, kg, PRN Sleep, Start date: 07/31/15 21:49:00, Stop date: 07/31/15 21:49:00Notes: (Same As: Desyrel) Inactive 08/01/2015 [facility] Warfarin 5 mg, 1 tab, Route: PO, Drug form: TAB, Q5PM, Dosing Weight 99.574, kg, Start date: 07/31/15 17:00:00, Duration: 1 doses or times, Stop date: 07/31/15 17:00:00Notes: Nurse to ensure documentation of pat ient education per anticoagulation policy. Avoid large intake of vitamin-K containing foods diet. WASTE: F/P - P Waste Black; E - P Waste Black (Same As: Coumadin) Inactive 07/31/2015 [facility] Lactulose 20 gm, 30 ml, Route: PO, Drug Form: SYRP, Dosing Weight 99.574, kg, ONCE, PRN Constipation, Start date: 07/31/15 9:55:00, Stop date: 08/30/15 9:54:00Notes: (Same as:Chronulac) Inactive 07/31/2015 [facility] azithromycin 250 mg oral tablet 250 mg, 1 tab, Route: PO, Drug form: TAB, Daily, Dosing Weight 99.574, kg, Start date: 07/31/15 9:00:00, Duration: 4 day, Stop date: 08/03/15 9:00:00Notes: Take 1 hour before or 2 hours after meals. (Same As: Zithromax) No Longer Active 07/31/2015 [facility] Lidocaine Hydrochloride 10 MG/ML Injectable Solution 100 mg, 10 mL, Route: IV, Drug Form: INJ, Dosing Weight 99.574, kg, ONCE, Start date: 07/30/15 20:34:00, Stop date: 07/30/15 20:34:00Notes: (Same as: Xylocaine) Inactive 07/31/2015 [facility] Lidocaine Hydrochloride 20 MG/ML Injectable Solution 200 mg, 10 mL, Route: SUB-Q, Drug Form: INJ, Dosing Weight 99.574, kg, ONCE, Start date: 07/30/15 18:53:00, Stop date: 07/30/15 18:53:00Notes: Syringe (Same as: Xylocaine) Inactive 07/30/2015 [facility] azithromycin 500 mg oral tablet 500 mg, 2 tab, Route: PO, Drug form: TAB, Daily, Dosing Weight 99.574, kg, Priority: STAT, Start date: 07/30/15 18:45:00, Duration: 1 doses or times, Stop date: 07/30/15 18:45:00Notes: Take 1 hour before or 2 hours after meals. (Same As: Zithromax) Inactive 07/30/2015 [facility] Albuterol 0.833 MG/ML / Ipratropium [place] 0.167 MG/ML Inhalant Solution 3 ml, Route: NEB, Drug Form: SOLN, Dosing Weight 99.574, kg, RQ4H, STAT, Start date: 07/30/15 18:45:00, Duration: 30 day, Stop date: 08/29/15 15:00:00Notes: (Same as: Duoneb) No Longer Active 07/30/2015 [facility] Prednisone 60 mg, 3 tab, Route: PO, Drug form: TAB, Daily, Dosing Weight 99.574, kg, Priority: STAT, Start date: 07/30/15 18:45:00, Duration: 30 day, Stop date: 08/29/15 9:00:00Notes: Take with food. No Longer Active 07/30/2015 [facility] Magnesium Sulfate 2 gm, 50 mL, Route: IVPB, Drug form: INJ, ONCE, Dosing Weight 99.574, kg, Start date: 07/30/15 15:19:00, Duration: 2 hr, Stop date: 07/30/15 15:19:00Notes: WASTE: F/P - Sink; E - Municipal Trash Bin Inactive 07/30/2015 [facility] Tylenol 650 mg, 2 tab, Route: PO, Drug form: TAB, ONCE, Dosing Weight 99.574, kg, Start date: 07/30/15 1:27:00, Stop date: 07/30/15 1:27:00Notes: Do not exceed 4 gm/day. (Same as: Tylenol) Inactive 07/30/2015 [facility] Magnesium Sulfate 2 gm, 50 mL, Route: IVPB, Drug form: INJ, ONCE, Dosing Weight 99.574, kg, Start date: 07/29/15 10:51:00, Duration: 2 hr, Stop date: 07/29/15 10:51:00Notes: WASTE: F/P - Sink; E - Municipal Trash Bin Inactive 07/29/2015 [facility] Bumex 1 mg, 4 mL, Route: IVP, Drug form: INJ, Daily, Dosing Weight 99.574, kg, Priority: NOW, Start date: 07/29/15 10:17:00, Duration: 30 day, Stop date: 08/28/15 9:00:00Notes: (Same As: Bumex) No Longer Active 07/29/2015 [facility] ketoconazole topical 2% shampoo 1 appl, Route: SHAMPOO, QSat, Drug form: SHMP, Start date: 07/29/15 9:00:00, Duration: 30 day, Stop date: 08/26/15 9:00:00Notes: Non-Formulary Drug (Same as:Nizoral Topical) No Longer Active 07/29/2015 [facility] normal saline 0.9% IV 1,000 mL 1,000 mL, Rate: 50 ml/hr, Infuse over: 20 hr, Route: IVPB, Dosing Weight 99.574 kg, Total Volume: 1,000, Start date: 07/27/15 22:04:00, Duration: 30 day, Stop date: 08/26/15 22:03:00 No Longer Active 07/28/2015 [facility] hydrocortisone topical 2.5% cream 1 appl, Route: TOP, BID, Drug form: CRM, PRN Itching, Start date: 07/26/15 14:53:00, Duration: 30 day, Stop date: 08/25/15 14:52:00 No Longer Active 07/26/2015 [facility] Ketoconazole 20 MG/ML Medicated Shampoo 1 appl, Route: TOP, QWed, Drug form: SHMP, Start date: 07/26/15 14:50:00, Duration: 30 day, Stop date: 08/23/15 15:00:00Notes: Non-Formulary Drug (Same as:Nizoral Topical) No Longer Active 07/26/2015 [facility] tiotropium 0.018 MG/ACTUAT Inhalant Powder [Spiriva] 18 microgram, 1 inhalation, Route: INHALATION, Drug form: CAP, Daily, Dosing Weight 99.574, kg, Start date: 07/26/15 9:00:00, Duration: 30 day, Stop date: 08/24/15 9:00:00Notes: (Same As: Spiriva) No Longer Active 07/26/2015 [facility] Clonidine Hydrochloride 0.1 MG Oral Tablet 0.1 mg, 1 tab, Route: PO, Drug form: TAB, TID, Dosing Weight 99.574, kg, Start date: 07/22/15 17:00:00, Duration: 30 day, Stop date: 08/21/15 13:00:00Notes: (Same As: Catapres) No Longer Active 07/22/2015 [facility] Remeron 30 mg, 2 tab, Route: PO, Drug form: TAB, Bedtime, Dosing Weight 99.574, kg, Start date: 07/21/15 21:00:00, Duration: 30 day, Stop date: 08/19/15 21:00:00Notes: (Same as:Remeron) Inactive 07/22/2015 [facility] Mirtazapine 30 mg, 1 tab, Route: PO, Drug form: TAB, Bedtime, Dosing Weight 99.574, kg, Start date: 07/21/15 21:00:00, Duration: 30 day, Stop date: 09/18/15 21:00:00Notes: (Same as:Remeron) No Longer Active 07/22/2015 [facility] Hydrocortisone-Aloe 0.5% topical cream 1 appl, Route: TOP, BID, Drug form: CRM, Start date: 07/21/15 9:00:00, Duration: 30 day, Stop date: 08/19/15 17:00:00 No Longer Active 07/21/2015 [facility] Aspirin 81 mg, 1 tab, Route: PO, Drug form: ECTAB, Daily, Dosing Weight 99.574, kg, Start date: 07/21/15 9:00:00, Duration: 30 day, Stop date: 09/18/15 9:00:00Notes: Do not crush or chew. (Same As: Ecotrin) No Longer Active 07/21/2015 [facility] Clonidine Hydrochloride 0.1 MG Oral Tablet 0.1 mg, 1 tab, Route: PO, Drug form: TAB, QID, Dosing Weight 99.574, kg, Start date: 07/21/15 9:00:00, Duration: 30 day, Stop date: 08/19/15 21:00:00Notes: (Same As: Catapres) No Longer Active 07/21/2015 [facility] Folic Acid 1 mg, 1 tab, Route: PO, Drug form: TAB, Daily, Dosing Weight 99.574, kg, Start date: 07/21/15 9:00:00, Duration: 30 day, Stop date: 09/18/15 9:00:00Notes: (Same as: Folvite) No Longer Active 07/21/2015 [facility] Thiamine 100 mg, 1 tab, Route: PO, Drug form: TAB, Daily, Dosing Weight 99.574, kg, Start date: 07/21/15 9:00:00, Duration: 30 day, Stop date: 09/18/15 9:00:00Notes: (Same As: Vitamin B1) No Longer Active 07/21/2015 [facility] heparin additive 25,000 unit [18 unit/kg/hr] + Premix Diluent Dextrose 5% 500 mL 500 mL, Rate: 31.1 ml/hr, Infuse over: 16.1 hr, Route: IV, Dosing Weight 86.39 kg, Total Volume: 500 mL, Start date: 07/21/15 3:49:00, Duration: 30 day, Stop date: 08/20/15 3:48:00 No Longer Active 07/21/2015 [facility] Heparin 40 unit/kg [place] (Heparin Dosing Weight) Route: IVP, PRN, 3,500 unit, 3.5 mL, Drug form: INJ, PRN, Heparin Protocol, Start date: 07/21/15 3:49:00 Stop date: 08/20/15 3:48:00, 30 day No Longer Active 07/21/2015 [facility] Heparin 80 unit/kg Bolus (Heparin Dosing Weight) Route: IVP, PRN, 6,900 unit, 6.9 mL, Drug form: INJ, PRN, Heparin Protocol, Start date: 07/21/15 3:49:00 Stop date: 08/20/15 3:48:00, 30 day No Longer Active 07/21/2015 [facility] tramadol hydrochloride 50 MG Oral Tablet 50 mg, 1 tab, Route: PO, Drug form: TAB, Q6H, Dosing Weight 99.574, kg, PRN Pain Score 6-10, Start date: 07/21/15 3:33:00, Duration: 30 day, Stop date: 08/20/15 3:32:00Notes: Not to exceed 400mg/day. (Same As: Ultram) No Longer Active 07/21/2015 [facility] Artificial Tears 2 drp, Route: BOTH EYES, PRN, Drug form: SOLN, PRN as needed for dry eyes, Start date: 07/21/15 3:33:00 CDT, Duration: 30 day, Stop date: 09/19/15 3:32:00 CDT No Longer Active 07/21/2015 [facility] Nitroglycerin 0.4 MG Sublingual Tablet 0.4 mg, 1 tab, Route: SL, Drug form: TAB, Q5Min, Dosing Weight 99.574, kg, PRN Chest Pain, Start date: 07/21/15 3:33:00 CDT, Duration: 30 day, Stop date: 09/19/15 3:32:00 CDTNotes: (Same as:Nitroquick, Nitrostat) "Do Not Crush" Sublingual tablet No Longer Active 07/21/2015 [facility] Clonazepam 0.5 mg, 1 tab, Route: PO, Drug form: TAB, Q6H, Dosing Weight 99.574, kg, PRN Anxiety, Start date: 07/21/15 3:33:00, Duration: 30 day, Stop date: 08/20/15 3:32:00Notes: (Same As: KlonoPIN) No Longer Active 07/21/2015 [facility] Tylenol PO, Q6H, PRN Pain Score 1-5, 0 Refill(s) No Longer Active 07/21/2015 [facility] Hydrocortisone-Aloe 0.5% topical cream 1 appl, TOP, BID, # 30 gm, 0 Refill(s) No Longer Active 07/21/2015 [facility] Aspirin 81 mg, PO, Daily, 0 Refill(s) Active 07/21/2015 [facility] 24 HR Nicotine 0.875 MG/HR Transdermal Patch =1 patch, Transdermal, Daily, 0 Refill(s) No Longer Active 07/21/2015 [facility] Clonidine Hydrochloride 0.1 MG Oral Tablet 0.1 mg=1 tab, PO, QID, 0 Refill(s) No Longer Active 07/21/2015 [facility] clonazePAM 0.5 mg oral tablet 0.5 mg=1 tab, PO, PRN, Prn anxiety q 6 hrs, 0 Refill(s) No Longer Active 07/21/2015 [facility] mirtazapine 15 mg oral tablet 15 mg=1 tab, PO, Bedtime, # 30 tab, 0 Refill(s) No Longer Active 07/21/2015 [facility] Alprazolam 0.25 MG Oral Tablet 0.25 mg=1 tab, PO, BID, PRN anxiety, stress, # 20 tab, 0 Refill(s) No Longer Active 07/21/2015 [facility] tramadol hydrochloride 50 MG Oral Tablet 50 mg=1 tab, PO, Q6H, PRN Pain, PRN for pain q 6 hrs, 0 Refill(s) No Longer Active 07/21/2015 [facility] Nitroglycerin 0.4 MG Sublingual Tablet 0.4 mg=1 tab, SL, Q5Min, PRN Chest Pain, Give up to 3 doses. Call 911 if pain persists., # 25 tab, 3 Refill(s) No Longer Active 07/21/2015 [facility] Artificial Tears BOTH EYES, PRN, 1 drop each eye q 4 hours, 0 Refill(s) No Longer Active 07/21/2015 [facility] Allergies, Adverse Reactions, Alerts Substance Category Reaction Severity Reaction type Status Date Reported Comments Source Immunizations Immunization Date Given Site Status Last Updated Comments Source Results Order Name Results Value Reference Range Date Interpretation Comments Source HEMATOLOGY PT 14.0 s 12.0 - 14.7 11/29/2015 [facility] HEMATOLOGY INR 1.05 0.85 - 1.17 11/29/2015 [facility] LIPIDS CHD Risk 3.28 4.00 - 7.30 11/29/2015 [facility] LIPIDS Chol 210 mg/dL <=199 mg/dL 11/29/2015 [facility] LIPIDS Trig 69 mg/dL <=149 mg/dL 11/29/2015 [facility] LIPIDS HDL 64 mg/dL >=61 mg/dL 11/29/2015 [facility] LIPIDS VLDL 14 11/29/2015 [facility] LIPIDS LDL (Calculated) 132 mg/dL <=99 mg/dL 11/29/2015 [facility] CARDIAC ENZYMES Troponin-I null 0.00 - 0.40 11/29/2015 [facility] CARDIAC ENZYMES Total CK 48 unit/L 12 - 191 11/29/2015 [facility] CARDIAC ENZYMES Troponin-I null 0.00 - 0.40 2015 [facility] CARDIAC ENZYMES Total CK 50 unit/L 12 - 191 2015 [facility] Chest CTA Chest CTA Patient Name: ALETHA LOWERY : 1955; Age: 59 years Male MR: [id number] Study: Chest CTA 2015 3:09 PM CDT Clinical Indication: Chest pain. hx of pe < 6 months ago. COMPARISON: Chest x-ray 2015. TECHNIQUE: Sequential trans-axial images were obtained thru the chest and upper abdomen after administration of iodinated contrast. Coronal and sagittal reconstructions were obtained. 3D post-processing reconstruction post IV contrast volume rendering images are submitted. FINDINGS: LUNG PARENCHYMA AND PLEURA: Mild centrilobular emphysematous change. Right lower lobe atelectasis. There are no pleural effusions. There is no pneumothorax. AIRWAY: The central airway is normal. MEDIASTINUM: No significant mediastinal lymphadenopathy. HEART: Cardiomegaly with coronary artery calcifications. There is no pericardial effusion. VASCULAR STRUCTURES: Filling defects in the distal left lower lobe pulmonary arteries are noted with reconstitution of the more distal vessels. The great vessels are normal. The aortic root measures 4.2 cm in diameter. The superior vena cava is normal.The pulmonary vasculature is normal. OSSEOUS STRUCTURES: Chronic right posterior rib fractures. VISUALIZED UPPER ABDOMEN: Moderate distention. IMPRESSION: 1. Small distal left lower lobe pulmonary embolus. 2. Right lower lobe atelectasis. 3. Cardiomegaly with coronary artery calcifications. 4. Annuloaortic ectasia. 5. Chronic right posterior rib fractures. 6. Emphysema. These findings were communicated to the patient's nurse Artie at 2015 6:09 PM CDT. SL: [id number] 2015 - - Read by: Mikhail Krutz MD Dictated Date/time: 11/28/15 18:01 Electronically Signed by: Mikhail Kurtz MD 11/28/15 18:09 FINAL REPORT [facility] CARDIAC ENZYMES CK MB Index 4.7 0.0 - 2.5 2015 [facility] CARDIAC ENZYMES BNP 92 pg/mL <=100 pg/mL 2015 [facility] CARDIAC ENZYMES Troponin-I null 0.00 - 0.40 2015 [facility] CARDIAC ENZYMES CK MB 2.7 ng/mL 0.5 - 3.6 2015 [facility] CARDIAC ENZYMES Total CK 57 unit/L 12 - 191 2015 [facility] CHEM PANEL eGFR 96 mL/min/1.73m2 2015 Result Comment: The eGFR is calculated using the CKD-EPI formula. In most young, healthy individuals the eGFR will be >90 mL/min/1.73m2. The eGFR declines with age. An eGFR of 60-89 may be normal in some populations, particularly the elderly, for whom the CKD-EPI formula has not been extensively validated. Use of the eGFR is not recommended in the following populations: Individuals with unstable creatinine concentrations, including patients and those with serious co-morbid conditions. Patients with extremes in muscle mass or diet. The data above are obtained from the National Kidney Disease Education Program (NKDEP) which additionally recommends that when the eGFR is used in patients with extremes of body mass index for purposes of drug dosing, the eGFR should be multiplied by the estimated BMI. [facility] CHEM PANEL ALT 26 unit/L 0 - 65 2015 [facility] CHEM PANEL Albumin Lvl 3.7 g/dL 3.5 - 5.0 2015 [facility] CHEM PANEL AST 16 unit/L 0 - 37 2015 [facility] CHEM PANEL Calcium Lvl 8.6 mg/dL 8.5 - 10.5 2015 [facility] CHEM PANEL Total Protein 7.2 g/dL 6.4 - 8.4 2015 [facility] CHEM PANEL AGAP 10.0 meq/L 10.0 - 20.0 2015 [facility] CHEM PANEL Alk Phos 64 unit/L 39 - 136 2015 [facility] CHEM PANEL Bili Total 0.3 mg/dL 0.2 - 1.3 2015 [facility] CHEM PANEL CO2 29 meq/L 24 - 32 2015 [facility] CHEM PANEL Chloride Lvl 106 meq/L 95 - 109 2015 [facility] CHEM PANEL Potassium Lvl 4.0 meq/L 3.5 - 5.1 2015 [facility] CHEM PANEL A/G Ratio 1.1 0.7 - 1.6 2015 [facility] CHEM PANEL Globulin 3.5 g/dL 2.0 - 4.0 2015 [facility] CHEM PANEL B/C Ratio 13 6 - 25 2015 [facility] CHEM PANEL Sodium Lvl 141 meq/L 135 - 145 2015 [facility] CHEM PANEL BUN 11 mg/dL 7 - 22 2015 [facility] CHEM PANEL Glucose Lvl 86 mg/dL 70 - 99 2015 [facility] CHEM PANEL Creatinine Lvl 0.86 mg/dL 0.50 - 1.40 2015 [facility] HEMATOLOGY Segs-Bands # 7.8 K/CMM 1.5 - 8.1 2015 [facility] HEMATOLOGY Basophils 0.9 % 0.0 - 1.0 2015 [facility] HEMATOLOGY Basophils # 0.1 K/CMM 0.0 - 0.2 2015 [facility] HEMATOLOGY Segs 67.3 % 45.0 - 75.0 2015 [facility] HEMATOLOGY Monocytes # 0.7 K/CMM 0.0 - 0.8 2015 [facility] HEMATOLOGY Lymphocytes # 3.0 K/CMM 1.0 - 5.5 2015 [facility] HEMATOLOGY Eosinophils 0.2 % 0.0 - 4.0 2015 [facility] HEMATOLOGY Lymphocytes 25.5 % 20.0 - 40.0 2015 [facility] HEMATOLOGY Monocytes 6.1 % 2.0 - 12.0 2015 [facility] HEMATOLOGY RBC 5.08 M/CMM 4.70 - 6.10 2015 [facility] HEMATOLOGY WBC 11.6 K/CMM 3.7 - 10.4 2015 [facility] HEMATOLOGY MPV 7.4 fL 7.4 - 10.4 2015 [facility] Hct 43.6 % 42.0 - 54.0 2015 [facility] Hgb 14.0 g/dL 14.0 - 18.0 2015 [facility] MCV 85.7 fL 80.0 - 94.0 2015 [facility] MCH 27.5 pg 27.0 - 31.0 2015 [facility] RDW 15.0 % 11.5 - 14.5 2015 [facility] Platelet 244 K/CMM 133 - 450 2015 [facility] MCHC 32.1 g/dL 32.0 - 36.0 2015 [facility] Chest 1view DX Chest 1view DX Study: Chest 1view DX Clinical Indication: Dyspnea Comparison: Chest x-ray from 08/21/2015 FINDINGS: Left sided dual-chamber pacemaker is stable. Cardiac silhouette is normal in size. Small right pleural effusion is seen. There is no pneumothorax. The osseous structures are unremarkable. IMPRESSION: Small right pleural effusion SL: [id number] 2015 - - Read by: Ivan Lugo MD Dictated Date/time: 11/28/15 11:17 Electronically Signed by: Ivan Lugo MD 11/28/15 11:18 FINAL REPORT [facility] ELECTROLYTES AGAP 14.0 meq/L 10.0 - 20.0 08/22/2015 [facility] ELECTROLYTES Calcium Lvl 8.3 mg/dL 8.5 - 10.5 08/22/2015 [facility] ELECTROLYTES CO2 26 meq/L 24 - 32 08/22/2015 [facility] ELECTROLYTES eGFR 104 mL/min/1.73m2 08/22/2015 Result Comment: The eGFR is calculated using the CKD-EPI formula. In most young, healthy individuals the eGFR will be >90 mL/min/1.73m2. The eGFR declines with age. An eGFR of 60-89 may be normal in some populations, particularly the elderly, for whom the CKD-EPI formula has not been extensively validated. Use of the eGFR is not recommended in the following populations: Individuals with unstable creatinine concentrations, including patients and those with serious co-morbid conditions. Patients with extremes in muscle mass or diet. The data above are obtained from the National Kidney Disease Education Program (NKDEP) which additionally recommends that when the eGFR is used in patients with extremes of body mass index for purposes of drug dosing, the eGFR should be multiplied by the estimated BMI. [facility] ELECTROLYTES Chloride Lvl 107 meq/L 95 - 109 08/22/2015 [facility] ELECTROLYTES Potassium Lvl 4.0 meq/L 3.5 - 5.1 08/22/2015 [facility] ELECTROLYTES Glucose Lvl 84 mg/dL 70 - 99 08/22/2015 [facility] ELECTROLYTES Sodium Lvl 143 meq/L 135 - 145 08/22/2015 [facility] ELECTROLYTES BUN 11 mg/dL 7 - 22 08/22/2015 [facility] ELECTROLYTES Creatinine Lvl 0.71 mg/dL 0.50 - 1.40 08/22/2015 [facility] HEMATOLOGY Basophils # 0.0 K/CMM 0.0 - 0.2 08/22/2015 [facility] HEMATOLOGY Eosinophils 1.2 % 0.0 - 4.0 08/22/2015 [facility] HEMATOLOGY Monocytes 9.5 % 2.0 - 12.0 08/22/2015 [facility] HEMATOLOGY Monocytes # 0.6 K/CMM 0.0 - 0.8 08/22/2015 [facility] HEMATOLOGY Segs 59.2 % 45.0 - 75.0 08/22/2015 [facility] HEMATOLOGY Lymphocytes 29.8 % 20.0 - 40.0 08/22/2015 [facility] HEMATOLOGY Basophils 0.3 % 0.0 - 1.0 08/22/2015 [facility] HEMATOLOGY Segs-Bands # 3.8 K/CMM 1.5 - 8.1 08/22/2015 [facility] HEMATOLOGY Eosinophils # 0.1 K/CMM 0.0 - 0.5 08/22/2015 [facility] HEMATOLOGY Lymphocytes # 1.9 K/CMM 1.0 - 5.5 08/22/2015 [facility] HEMATOLOGY RBC 4.51 M/CMM 4.70 - 6.10 08/22/2015 [facility] HEMATOLOGY WBC 6.5 K/CMM 3.7 - 10.4 08/22/2015 [facility] HEMATOLOGY MCV 87.9 fL 80.0 - 94.0 08/22/2015 [facility] HEMATOLOGY Hct 39.6 % 42.0 - 54.0 08/22/2015 [facility] HEMATOLOGY Hgb 12.7 g/dL 14.0 - 18.0 08/22/2015 [facility] HEMATOLOGY MCHC 32.1 g/dL 32.0 - 36.0 08/22/2015 [facility] HEMATOLOGY MCH 28.2 pg 27.0 - 31.0 08/22/2015 [facility] HEMATOLOGY MPV 8.1 fL 7.4 - 10.4 08/22/2015 [facility] HEMATOLOGY Platelet 161 K/CMM 133 - 450 08/22/2015 [facility] HEMATOLOGY RDW 16.3 % 11.5 - 14.5 08/22/2015 [facility] Chest 1view DX Chest 1view DX Patient Name: ALETHA LOWERY. : 1955; Age: 59 years y/o; Male. MR: [id number]. Ordering Physician: Jocy Bailon MD. PORTABLE CHEST AP: HISTORY: Cough. COMPARISON: Chest x-ray 08/18/2015 and 07/21/2015. FINDINGS: Portable frontal view of the chest was obtained. Blunting of the right costophrenic sulcus is again noted suspicious for trace volume right pleural effusion versus pleural parenchymal thickening/scarring, unchanged since the chest x-ray of 07/21/2015. Right lower lung field calcified granulomas again noted. Left lung is clear. Pacemaker in the left upper lateral chest wall is unchanged. The cardiomediastinal silhouette and pulmonary vasculature are unremarkable. The partially visualized upper abdomen is unremarkable. IMPRESSION: Stable blunting of the right costophrenic sulcus suspicious for trace volume right pleural effusion versus pleural parenchymal thickening/scarring. Left lung is unremarkable. SL: [id number] 08/21/2015 - - Read by: Noe Deras MD Dictated Date/time: 08/21/15 18:19 Electronically Signed by: Noe Deras MD 08/21/15 18:[address] [facility] Knee 1-2 Views Bilateral DX Knee 1-2 Views Bilateral DX Two-view bilateral knees. INDICATION: Pain from fall today. Anterior knee pain from fall. FINDINGS: A trace right knee joint effusion may be present. No left knee joint effusion identified. Minimal tibial spine spurring is seen bilaterally. No acute fractures or dislocations are seen. Vascular calcifications noted. IMPRESSION: 1. No acute osseous abnormality of bilateral knees. 2. Trace right knee joint effusion suspected. SL: [id number] 08/20/2015 - - Read by: Raulito Arthur MD Dictated Date/time: 08/20/15 16:02 Electronically Signed by: Raulito Arthur MD 08/20/15 16:[address] [facility] Brain wo contrast CT Brain wo contrast CT Patient Name: ALETHA LOWERY : 1955; Age: 59 years; Gender: Male MR: [id number] Ordering Physician: Piter Leslie MD PROCEDURE: CT head without contrast INDICATION: Pain Post Trauma. Fall with trauma to the frontal area. Patient is on blood thinners. TECHNIQUE: CT images were obtained from the foramen magnum to the vertex without the use of intravenous contrast on a multidetector CT. Total CT radiation dose: ELK=1904 mGy-cm COMPARISON: None. FINDINGS: No evidence for intracranial hemorrhage, mass or acute infarct. Well- defined hypodense encephalomalacia is identified within the right posterior parietal and occipital lobe which appears most compatible with old cerebral infarct. Mild generalized intracranial atrophy. No focal edema, mass effect or midline shift. Likely chronic small vessel white matter ischemic changes with mild periventricular white matter hypodensity. No acute bony abnormality. Fluid identified within right maxillary sinus. IMPRESSION: 1. No evidence for acute intracranial abnormality. 2. 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 Likely chronic small vessel white matter ischemic changes. 3. Possible mild right maxillary sinusitis. SL: [id number] 08/20/2015 - - Read by: Colin Howard MD Dictated Date/time: 08/20/15 15:44 Electronically Signed by: Colin Howard MD 08/20/15 15:[address] [facility] CARDIAC ENZYMES Troponin-I null 0.00 - 0.40 08/19/2015 [facility] CARDIAC ENZYMES Total CK 54 unit/L 12 - 191 08/19/2015 [facility] CARDIAC ENZYMES Troponin-I null 0.00 - 0.40 08/18/2015 [facility] CARDIAC ENZYMES Total CK 30 unit/L 12 - 191 08/18/2015 [facility] CARDIAC ENZYMES Troponin-I null 0.00 - 0.40 08/18/2015 [facility] HEMATOLOGY PT 24.6 s 12.0 - 14.7 08/18/2015 [facility] HEMATOLOGY INR 2.18 0.85 - 1.17 08/18/2015 [facility] BACTERIAL - SEROLOGY MRSA by PCR Negative (08/18/15 1:44 PM) 08/18/2015 [facility] CARDIAC ENZYMES CK MB Index 3.2 0.0 - 2.5 08/18/2015 [facility] CARDIAC ENZYMES CK MB 2.0 ng/mL 0.5 - 3.6 08/18/2015 [facility] CARDIAC ENZYMES Total CK 62 unit/L 12 - 191 08/18/2015 [facility] CHEM PANEL Lipase Lvl 114 unit/L 73 - 393 08/18/2015 [facility] CHEM PANEL eGFR 97 mL/min/1.73m2 08/18/2015 Result Comment: The eGFR is calculated using the CKD-EPI formula. In most young, healthy individuals the eGFR will be >90 mL/min/1.73m2. The eGFR declines with age. An eGFR of 60-89 may be normal in some populations, particularly the elderly, for whom the CKD-EPI formula has not been extensively validated. Use of the eGFR is not recommended in the following populations: Individuals with unstable creatinine concentrations, including patients and those with serious co-morbid conditions. Patients with extremes in muscle mass or diet. The data above are obtained from the National Kidney Disease Education Program (NKDEP) which additionally recommends that when the eGFR is used in patients with extremes of body mass index for purposes of drug dosing, the eGFR should be multiplied by the estimated BMI. [facility] CHEM PANEL AGAP 14.6 meq/L 10.0 - 20.0 08/18/2015 [facility] CHEM PANEL CO2 23 meq/L 24 - 32 08/18/2015 [facility] CHEM PANEL Calcium Lvl 8.7 mg/dL 8.5 - 10.5 08/18/2015 [facility] CHEM PANEL Globulin 3.6 g/dL 2.0 - 4.0 08/18/2015 [facility] CHEM PANEL Total Protein 6.7 g/dL 6.4 - 8.4 08/18/2015 [facility] CHEM PANEL Albumin Lvl 3.1 g/dL 3.5 - 5.0 08/18/2015 [facility] CHEM PANEL AST 21 unit/L 0 - 37 08/18/2015 [facility] CHEM PANEL ALT 36 unit/L 0 - 65 08/18/2015 [facility] CHEM PANEL B/C Ratio 25 6 - 25 08/18/2015 [facility] CHEM PANEL Bili Total 0.4 mg/dL 0.2 - 1.3 08/18/2015 [facility] CHEM PANEL A/G Ratio 0.9 0.7 - 1.6 08/18/2015 [facility] CHEM PANEL Alk Phos 64 unit/L 39 - 136 08/18/2015 [facility] CHEM PANEL Glucose Lvl 85 mg/dL 70 - 99 08/18/2015 [facility] CHEM PANEL BUN 21 mg/dL 7 - 22 08/18/2015 [facility] CHEM PANEL Creatinine Lvl 0.83 mg/dL 0.50 - 1.40 08/18/2015 [facility] CHEM PANEL Potassium Lvl 4.6 meq/L 3.5 - 5.1 08/18/2015 [facility] CHEM PANEL Sodium Lvl 140 meq/L 135 - 145 08/18/2015 [facility] CHEM PANEL Chloride Lvl 107 meq/L 95 - 109 08/18/2015 [facility] HEMATOLOGY Basophils # 0.1 K/CMM 0.0 - 0.2 08/18/2015 [facility] HEMATOLOGY Eosinophils # 0.1 K/CMM 0.0 - 0.5 08/18/2015 [facility] HEMATOLOGY Monocytes # 1.0 K/CMM 0.0 - 0.8 08/18/2015 [facility] HEMATOLOGY Lymphocytes # 2.4 K/CMM 1.0 - 5.5 08/18/2015 [facility] HEMATOLOGY Eosinophils 0.5 % 0.0 - 4.0 08/18/2015 [facility] HEMATOLOGY Monocytes 7.3 % 2.0 - 12.0 08/18/2015 [facility] HEMATOLOGY Segs-Bands # 10.0 K/CMM 1.5 - 8.1 08/18/2015 [facility] HEMATOLOGY Basophils 0.4 % 0.0 - 1.0 08/18/2015 [facility] HEMATOLOGY Lymphocytes 18.0 % 20.0 - 40.0 08/18/2015 [facility] HEMATOLOGY Segs 73.8 % 45.0 - 75.0 08/18/2015 [facility] HEMATOLOGY Plt Morph Normal (4/15/16 9:22 AM) 08/18/2015 [facility] RBC Morph Normal (08/18/15 9:22 AM) 08/18/2015 [facility] HEMATOLOGY Platelet 207 K/CMM 133 - 450 08/18/2015 Result Comment: Reviewed. [facility] RBC 4.79 M/CMM 4.70 - 6.10 08/18/2015 [facility] WBC 13.5 K/CMM 3.7 - 10.4 08/18/2015 [facility] HEMATOLOGY Hgb 13.7 g/dL 14.0 - 18.0 08/18/2015 [facility] Hct 42.1 % 42.0 - 54.0 08/18/2015 [facility] HEMATOLOGY RDW 16.1 % 11.5 - 14.5 08/18/2015 [facility] HEMATOLOGY MPV 7.7 fL 7.4 - 10.4 08/18/2015 [facility] MCH 28.5 pg 27.0 - 31.0 08/18/2015 [facility] HEMATOLOGY MCV 87.9 fL 80.0 - 94.0 08/18/2015 [facility] MCHC 32.4 g/dL 32.0 - 36.0 08/18/2015 [facility] Chest 1view DX Chest 1view DX CHEST RADIOGRAPH ONE VIEW 08/18/2015 AT 0857 HOURS. CLINICAL HISTORY: Central chest pain and shortness of breath. COMPARISON STUDIES: Chest one view from 08/06/2015. FINDINGS: One view of the chest was obtained. The lungs are clear. Mild right costophrenic pleural thickening and or low volume pleural fluid are noted. A calcified granuloma is identified in the right lung base. The cardiac silhouette is enlarged with a dual-lead pacemaker battery. The previously present right PICC line catheter has been removed. No destructive bone lesions. IMPRESSION: 1. No edema or consolidation. Old granulomatous disease. 2. Low-volume right costophrenic pleural fluid and/or thickening. 3. Enlarged cardiac silhouette. SL: [id number] 08/18/2015 - - Read by: Bob Charles MD Dictated Date/time: 08/18/15 09:14 Electronically Signed by: Bob Charles MD 08/18/15 09:[address] [facility] ELECTROLYTES AGAP 11.7 meq/L 10.0 - 20.0 08/17/2015 [facility] ELECTROLYTES eGFR 112 mL/min/1.73m2 08/17/2015 Result Comment: The eGFR is calculated using the CKD-EPI formula. In most young, healthy individuals the eGFR will be >90 mL/min/1.73m2. The eGFR declines with age. An eGFR of 60-89 may be normal in some populations, particularly the elderly, for whom the CKD-EPI formula has not been extensively validated. Use of the eGFR is not recommended in the following populations: Individuals with unstable creatinine concentrations, including patients and those with serious co-morbid conditions. Patients with extremes in muscle mass or diet. The data above are obtained from the National Kidney Disease Education Program (NKDEP) which additionally recommends that when the eGFR is used in patients with extremes of body mass index for purposes of drug dosing, the eGFR should be multiplied by the estimated BMI. [facility] ELECTROLYTES Calcium Lvl 7.1 mg/dL 8.5 - 10.5 08/17/2015 [facility] ELECTROLYTES Creatinine Lvl 0.58 mg/dL 0.50 - 1.40 08/17/2015 [facility] ELECTROLYTES Sodium Lvl 146 meq/L 135 - 145 08/17/2015 [facility] ELECTROLYTES BUN 13 mg/dL 7 - 22 08/17/2015 [facility] ELECTROLYTES Glucose Lvl 78 mg/dL 70 - 99 08/17/2015 [facility] ELECTROLYTES Chloride Lvl 115 meq/L 95 - 109 08/17/2015 [facility] ELECTROLYTES CO2 23 meq/L 24 - 32 08/17/2015 [facility] ELECTROLYTES Potassium Lvl 3.7 meq/L 3.5 - 5.1 08/17/2015 [facility] HEMATOLOGY MCH 28.8 pg 27.0 - 31.0 08/17/2015 [facility] HEMATOLOGY Hct 36.5 % 42.0 - 54.0 08/17/2015 [facility] HEMATOLOGY MCV 88.6 fL 80.0 - 94.0 08/17/2015 [facility] HEMATOLOGY Hgb 11.8 g/dL 14.0 - 18.0 08/17/2015 [facility] HEMATOLOGY Platelet 149 K/CMM 133 - 450 08/17/2015 [facility] HEMATOLOGY MCHC 32.5 g/dL 32.0 - 36.0 08/17/2015 [facility] HEMATOLOGY RDW 15.4 % 11.5 - 14.5 08/17/2015 [facility] HEMATOLOGY MPV 7.2 fL 7.4 - 10.4 08/17/2015 [facility] HEMATOLOGY WBC 8.5 K/CMM 3.7 - 10.4 08/17/2015 [facility] HEMATOLOGY RBC 4.12 M/CMM 4.70 - 6.10 08/17/2015 [facility] HEMATOLOGY Monocytes 7.1 % 2.0 - 12.0 08/17/2015 [facility] HEMATOLOGY Basophils 0.4 % 0.0 - 1.0 08/17/2015 [facility] HEMATOLOGY Segs-Bands # 5.8 K/CMM 1.5 - 8.1 08/17/2015 [facility] HEMATOLOGY Eosinophils 0.5 % 0.0 - 4.0 08/17/2015 [facility] HEMATOLOGY Lymphocytes 23.4 % 20.0 - 40.0 08/17/2015 [facility] HEMATOLOGY Segs 68.6 % 45.0 - 75.0 08/17/2015 [facility] HEMATOLOGY Lymphocytes # 2.0 K/CMM 1.0 - 5.5 08/17/2015 [facility] HEMATOLOGY Monocytes # 0.6 K/CMM 0.0 - 0.8 08/17/2015 [facility] HEMATOLOGY INR 2.09 0.85 - 1.17 08/17/2015 [facility] HEMATOLOGY PT 23.8 s 12.0 - 14.7 08/17/2015 [facility] HEMATOLOGY INR 1.84 0.85 - 1.17 08/16/2015 [facility] HEMATOLOGY PT 21.6 s 12.0 - 14.7 08/16/2015 [facility] HEMATOLOGY INR 2.24 0.85 - 1.17 08/15/2015 [facility] HEMATOLOGY PT 25.1 s 12.0 - 14.7 08/15/2015 [facility] ELECTROLYTES Potassium Lvl 4.2 meq/L 3.5 - 5.1 08/14/2015 [facility] ELECTROLYTES Chloride Lvl 107 meq/L 95 - 109 08/14/2015 [facility] ELECTROLYTES Creatinine Lvl 0.93 mg/dL 0.50 - 1.40 08/14/2015 [facility] ELECTROLYTES Sodium Lvl 140 meq/L 135 - 145 08/14/2015 [facility] ELECTROLYTES BUN 27 mg/dL 7 - 22 08/14/2015 [facility] ELECTROLYTES Calcium Lvl 8.5 mg/dL 8.5 - 10.5 08/14/2015 [facility] ELECTROLYTES CO2 26 meq/L 24 - 32 08/14/2015 [facility] ELECTROLYTES eGFR 91 mL/min/1.73m2 08/14/2015 Result Comment: The eGFR is calculated using the CKD-EPI formula. In most young, healthy individuals the eGFR will be >90 mL/min/1.73m2. The eGFR declines with age. An eGFR of 60-89 may be normal in some populations, particularly the elderly, for whom the CKD-EPI formula has not been extensively validated. Use of the eGFR is not recommended in the following populations: Individuals with unstable creatinine concentrations, including patients and those with serious co-morbid conditions. Patients with extremes in muscle mass or diet. The data above are obtained from the National Kidney Disease Education Program (NKDEP) which additionally recommends that when the eGFR is used in patients with extremes of body mass index for purposes of drug dosing, the eGFR should be multiplied by the estimated BMI. [facility] ELECTROLYTES Glucose Lvl 84 mg/dL 70 - 99 08/14/2015 [facility] ELECTROLYTES AGAP 11.2 meq/L 10.0 - 20.0 08/14/2015 [facility] CHEM PANEL Magnesium Lvl 2.2 mg/dL 1.8 - 2.4 08/10/2015 [facility] CHEM PANEL eGFR 102 mL/min/1.73m2 08/10/2015 Result Comment: The eGFR is calculated using the CKD-EPI formula. In most young, healthy individuals the eGFR will be >90 mL/min/1.73m2. The eGFR declines with age. An eGFR of 60-89 may be normal in some populations, particularly the elderly, for whom the CKD-EPI formula has not been extensively validated. Use of the eGFR is not recommended in the following populations: Individuals with unstable creatinine concentrations, including patients and those with serious co-morbid conditions. Patients with extremes in muscle mass or diet. The data above are obtained from the National Kidney Disease Education Program (NKDEP) which additionally recommends that when the eGFR is used in patients with extremes of body mass index for purposes of drug dosing, the eGFR should be multiplied by the estimated BMI. [facility] CHEM PANEL Calcium Lvl 8.8 mg/dL 8.5 - 10.5 08/10/2015 [facility] CHEM PANEL CO2 28 meq/L 24 - 32 08/10/2015 [facility] CHEM PANEL Chloride Lvl 106 meq/L 95 - 109 08/10/2015 [facility] CHEM PANEL Potassium Lvl 4.2 meq/L 3.5 - 5.1 08/10/2015 [facility] CHEM PANEL Sodium Lvl 140 meq/L 135 - 145 08/10/2015 [facility] CHEM PANEL BUN 20 mg/dL 7 - 22 08/10/2015 [facility] CHEM PANEL Creatinine Lvl 0.74 mg/dL 0.50 - 1.40 08/10/2015 [facility] CHEM PANEL Glucose Lvl 78 mg/dL 70 - 99 08/10/2015 [facility] CHEM PANEL AGAP 10.2 meq/L 10.0 - 20.0 08/10/2015 [facility] CHEM PANEL Phosphorus 3.7 mg/dL 2.5 - 4.5 08/10/2015 [facility] HEMATOLOGY RBC Morph Normal (08/10/15 5:29 AM) 08/10/2015 [facility] HEMATOLOGY Plt Morph Normal (08/10/15 5:29 AM) 08/10/2015 [facility] HEMATOLOGY Atypical Lymphs 0.0 % <=0.0 % 08/10/2015 [facility] HEMATOLOGY Myelocytes 1.0 % <=0.0 % 08/10/2015 [facility] HEMATOLOGY Metamyelocytes 1.0 % 0.0 - 1.0 08/10/2015 [facility] HEMATOLOGY Lymphocytes 24.0 % 20.0 - 40.0 08/10/2015 [facility] HEMATOLOGY Monocytes 6.0 % 2.0 - 12.0 08/10/2015 [facility] HEMATOLOGY Segs-Bands # 8.4 K/CMM 1.5 - 8.1 08/10/2015 [facility] HEMATOLOGY Bands 1.0 % 0.0 - 11.0 08/10/2015 [facility] HEMATOLOGY Monocytes # 0.7 K/CMM 0.0 - 0.8 08/10/2015 [facility] HEMATOLOGY Lymphocytes # 3.0 K/CMM 1.0 - 5.5 08/10/2015 [facility] HEMATOLOGY Segs 67.0 % 45.0 - 75.0 08/10/2015 [facility] HEMATOLOGY WBC 12.3 K/CMM 3.7 - 10.4 08/10/2015 [facility] HEMATOLOGY RBC 4.82 M/CMM 4.70 - 6.10 08/10/2015 [facility] HEMATOLOGY Hgb 13.6 g/dL 14.0 - 18.0 08/10/2015 [facility] HEMATOLOGY MCH 28.3 pg 27.0 - 31.0 08/10/2015 [facility] HEMATOLOGY Platelet 227 K/CMM 133 - 450 08/10/2015 [facility] HEMATOLOGY MCHC 32.4 g/dL 32.0 - 36.0 08/10/2015 [facility] HEMATOLOGY RDW 15.3 % 11.5 - 14.5 08/10/2015 [facility] HEMATOLOGY MCV 87.2 fL 80.0 - 94.0 08/10/2015 [facility] HEMATOLOGY Hct 42.0 % 42.0 - 54.0 08/10/2015 [facility] HEMATOLOGY MPV 7.2 fL 7.4 - 10.4 08/10/2015 [facility] CHEM PANEL Magnesium Lvl 2.1 mg/dL 1.8 - 2.4 08/09/2015 [facility] CHEM PANEL Phosphorus 3.9 mg/dL 2.5 - 4.5 08/09/2015 [facility] HEMATOLOGY Myelocytes 1.0 % <=0.0 % 08/09/2015 [facility] HEMATOLOGY RBC Morph Normal (08/09/15 4:34 AM) 08/09/2015 [facility] HEMATOLOGY Atypical Lymphs 1.0 % <=0.0 % 08/09/2015 [facility] HEMATOLOGY Monocytes # 0.4 K/CMM 0.0 - 0.8 08/09/2015 [facility] HEMATOLOGY Segs-Bands # 7.7 K/CMM 1.5 - 8.1 08/09/2015 [facility] HEMATOLOGY Lymphocytes # 2.8 K/CMM 1.0 - 5.5 08/09/2015 [facility] HEMATOLOGY Plt Morph Normal (08/09/15 4:34 AM) 08/09/2015 [facility] HEMATOLOGY Lymphocytes 24.0 % 20.0 - 40.0 08/09/2015 [facility] HEMATOLOGY Monocytes 4.0 % 2.0 - 12.0 08/09/2015 [facility] HEMATOLOGY Segs 65.0 % 45.0 - 75.0 08/09/2015 [facility] HEMATOLOGY Bands 4.0 % 0.0 - 11.0 08/09/2015 [facility] HEMATOLOGY Metamyelocytes 1.0 % 0.0 - 1.0 08/09/2015 [facility] HEMATOLOGY MCV 88.1 fL 80.0 - 94.0 08/09/2015 [facility] HEMATOLOGY MCHC 32.6 g/dL 32.0 - 36.0 08/09/2015 [facility] HEMATOLOGY MCH 28.7 pg 27.0 - 31.0 08/09/2015 [facility] HEMATOLOGY Hct 42.6 % 42.0 - 54.0 08/09/2015 [facility] HEMATOLOGY Hgb 13.9 g/dL 14.0 - 18.0 08/09/2015 [facility] HEMATOLOGY MPV 7.4 fL 7.4 - 10.4 08/09/2015 [facility] HEMATOLOGY RDW 15.4 % 11.5 - 14.5 08/09/2015 [facility] HEMATOLOGY Platelet 205 K/CMM 133 - 450 08/09/2015 [facility] HEMATOLOGY RBC 4.83 M/CMM 4.70 - 6.10 08/09/2015 [facility] HEMATOLOGY WBC 11.1 K/CMM 3.7 - 10.4 08/09/2015 [facility] CHEM PANEL Magnesium Lvl 2.2 mg/dL 1.8 - 2.4 08/08/2015 [facility] CHEM PANEL Phosphorus 4.1 mg/dL 2.5 - 4.5 08/08/2015 [facility] HEMATOLOGY Eosinophils # 0.2 K/CMM 0.0 - 0.5 08/08/2015 [facility] HEMATOLOGY Basophils # 0.1 K/CMM 0.0 - 0.2 08/08/2015 [facility] HEMATOLOGY Plt Morph Normal (08/08/15 3:55 AM) 08/08/2015 [facility] HEMATOLOGY RBC Morph Normal (08/08/15 3:55 AM) 08/08/2015 [facility] HEMATOLOGY Basophils 0.5 % 0.0 - 1.0 08/08/2015 [facility] HEMATOLOGY Eosinophils 1.2 % 0.0 - 4.0 08/08/2015 [facility] HEMATOLOGY Basophils 0.7 % 0.0 - 1.0 08/07/2015 [facility] HEMATOLOGY Eosinophils 0.4 % 0.0 - 4.0 08/07/2015 [facility] HEMATOLOGY Basophils # 0.1 K/CMM 0.0 - 0.2 08/07/2015 [facility] HEMATOLOGY PTT 69.5 s 22.9 - 35.8 08/06/2015 [facility] Chest 1view DX Chest 1view DX EXAM: XR CHEST 1 VIEW DATE: 08/06/2015 8:49 AM CDT INDICATION: Coughing. FINDINGS: Comparison is made to August 01. The cardiomediastinal silhouette, life-support lines and tubes are stable. The lungs are clear of consolidation. There are calcified granulomas in the right lower lobe. No pleural effusions are identified. IMPRESSION: No acute abnormality. 08/06/2015 - - Read by: Sara Ritter MD Dictated Date/time: 08/06/15 09:34 Electronically Signed by: Sara Ritter MD 08/06/15 09:53 FINAL REPORT [facility] HEMATOLOGY Toxic Gran See Note 1 (08/06/15 3:33 AM) None Seen 08/06/2015 Result Comment: Slight [facility] HEMATOLOGY Atypical Lymphs 0.0 % <=0.0 % 08/06/2015 [facility] HEMATOLOGY Bands 1.0 % 0.0 - 11.0 08/06/2015 [facility] HEMATOLOGY PTT 64.0 s 22.9 - 35.8 08/05/2015 [facility] HEMATOLOGY Toxic Gran slight 08/05/2015 [facility] HEMATOLOGY PTT 68.9 s 22.9 - 35.8 08/05/2015 [facility] Chest 1view DX Chest 1view DX EXAM: XR CHEST 1 VIEW DATE: 08/02/2015 10:20 AM CDT INDICATION: Abnormal chest sounds COMPARISON: Chest x-ray from 07/30/2015 TECHNIQUE: AP chest FINDINGS: Stable right arm PICC. Stable left implantable cardiac defibrillator Stable cardiomediastinal silhouette. Small right pleural effusion versus pleural thickening. No new pleural or parenchymal based abnormalities. IMPRESSION: No significant change. 08/02/2015 - - Read by: Ángel Sue MD Dictated Date/time: 08/02/15 13:43 Electronically Signed by: Ángel Sue 08/02/15 13:46 FINAL REPORT [facility] HEMATOLOGY Anisocyte 1+ *ABN* (07/31/15 10:41 AM) None Seen 07/31/2015 [facility] HEMATOLOGY Basophils # 0.2 K/CMM 0.0 - 0.2 07/31/2015 [facility] Chest 1view DX Chest 1view DX EXAM: XR CHEST 1 VIEW DATE: 07/30/2015 7:41 PM CDT INDICATION: Dyspnea COMPARISON: Yesterday TECHNIQUE: AP chest FINDINGS: Stable right arm PICC. Stable left implantable cardiac defibrillator Stable cardiomediastinal silhouette. Small right pleural effusion versus pleural thickening. No new pleural or parenchymal based abnormalities. IMPRESSION: No significant changes compared to yesterday. 07/30/2015 - - Read by: Ángel Sue MD Dictated Date/time: 07/31/15 08:59 Electronically Signed by: Ángel Sue 07/31/15 09:00 FINAL REPORT [facility] CHEM PANEL Lactic Acid Lvl 1.0 mMol/L 0.5 - 2.2 07/30/2015 [facility] HVI VAS Venous Lower Ext Bilat Doppler HVI VAS Venous Lower Ext Bilat Doppler INDICATION: Lower extremity pain. IMPRESSION: 1. There is no evidence of deep venous thrombosis in the bilateral lower extremities. COMMENT: No prior study is available for comparison. Bilateral lower extremity cope scale, color-flow, and Doppler examination of the venous system was performed. Examination of the bilateral distal external iliac, common femoral, superficial femoral, deep femoral, and popliteal veins demonstrates normal phasic flow and appropriate response to compression and augmentation. Calf veins are also imaged. There is no evidence of deep venous thrombosis. 07/29/2015 - - This report was dictated by a Controller Mechanic/Fellow. I have personally reviewed the images as well as the Resident's interpretation and agree with the findings. Read by: Arianna Lala MD Resident: Arianna Lala MD Dictated Date/time: 07/30/15 19:12 Electronically Signed by: Skinny Riley MD 07/31/15 08:30 FINAL REPORT [facility] Chest 1view DX Chest 1view DX EXAM: XR CHEST 1 VIEW DATE: 07/29/2015 9:47 AM CDT INDICATION: Shortness of Breath COMPARISON: 07/21/2015 TECHNIQUE: AP chest FINDINGS: Stable right arm PICC. Stable left implantable cardiac defibrillator Stable cardiomediastinal silhouette. Small right pleural effusion. No new pleural or parenchymal based abnormalities. IMPRESSION: No significant changes compared to yesterday at 2:24 AM 07/29/2015 - - Read by: Ángel Sue MD Dictated Date/time: 07/29/15 11:58 Electronically Signed by: Ángel Sue 07/29/15 11:59 FINAL REPORT [facility] HEMATOLOGY POC Activated Clotting Time 206 s 07/28/2015 [facility] HEMATOLOGY Eosinophils # 0.1 K/CMM 0.0 - 0.5 07/28/2015 [facility] HEMATOLOGY Eosinophils # 0.1 K/CMM 0.0 - 0.5 07/27/2015 [facility] LIPIDS HDL 45 mg/dL >=61 mg/dL 07/25/2015 [facility] LIPIDS Chol 162 mg/dL <=199 mg/dL 07/25/2015 [facility] LIPIDS Trig 74 mg/dL <=149 mg/dL 07/25/2015 [facility] LIPIDS VLDL 15 07/25/2015 [facility] LIPIDS LDL (Calculated) 102 mg/dL <=99 mg/dL 07/25/2015 [facility] LIPIDS CHD Risk 3.60 4.00 - 7.30 07/25/2015 [facility] CARDIAC ENZYMES Troponin-I 0.09 ng/mL 0.00 - 0.40 07/21/2015 [facility] CARDIAC ENZYMES Troponin-T 0.035 ng/mL 0.000 - 0.100 07/21/2015 [facility] CARDIAC ENZYMES Total CK 36 unit/L 12 - 191 07/21/2015 [facility] HVI VAS Arterial Extracranial Doppler Bi HVI VAS Arterial Extracranial Doppler Bi INDICATION: Preoperative evaluation prior to high risk cardiac procedure . IMPRESSION: 1. There is evidence of mild atherosclerotic disease of bilateral carotid bulbs and proximal internal carotid arteries consistent with less than 50% stenosis. COMMENT: No prior studies are available for comparison. Bilateral grayscale, color-flow, and Doppler examination of the extracranial carotid arterial system was performed. On the right, mild, echogenic, heterogeneous, smooth plaque is noted in the internal carotid artery. The right internal carotid to common carotid peak systolic velocity ratio is 1.40. The peak systolic velocity in the internal carotid artery is 90.4 cm/sec. This is consistent with less than 50% stenosis. On the left, mild, echogenic, heterogeneous, smooth plaque is noted in the internal carotid artery. The left internal carotid to common carotid peak systolic velocity ratio is 0.53. The peak systolic velocity in the internal carotid artery a 79.6 cm/sec. This is consistent with less than 50% stenosis. Bilateral external carotid arteries are patent. Bilateral antegrade flow was noted in the vertebral arteries. 07/21/2015 - - This report was dictated by a Controller Mechanic/Fellow. I have personally reviewed the images as well as the Resident's interpretation and agree with the findings. Read by: Dexter Redd (Fellow) Resident: Detxer Redd (Fellow) Dictated Date/time: 07/22/15 12:00 Electronically Signed by: Skinny Riley MD 07/25/15 07:27 FINAL REPORT [facility] CARDIAC ENZYMES Troponin-I 0.10 ng/mL 0.00 - 0.40 07/21/2015 [facility] CARDIAC ENZYMES Total CK 32 unit/L 12 - 191 07/21/2015 [facility] CARDIAC ENZYMES BNP 158 pg/mL <=100 pg/mL 07/21/2015 [facility] CHEM PANEL A/G Ratio 0.9 0.7 - 1.6 07/21/2015 [facility] CHEM PANEL Bili Total 0.8 mg/dL 0.2 - 1.3 07/21/2015 [facility] CHEM PANEL Alk Phos 59 unit/L 39 - 136 07/21/2015 [facility] CHEM PANEL Globulin 3.3 g/dL 2.0 - 4.0 07/21/2015 [facility] CHEM PANEL B/C Ratio 14 6 - 25 07/21/2015 [facility] CHEM PANEL AST 6 unit/L 0 - 37 07/21/2015 [facility] CHEM PANEL ALT 15 unit/L 0 - 65 07/21/2015 [facility] CHEM PANEL Albumin Lvl 2.9 g/dL 3.5 - 5.0 07/21/2015 [facility] CHEM PANEL Total Protein 6.2 g/dL 6.4 - 8.4 07/21/2015 [facility] CHEM PANEL Amylase Lvl 46 unit/L 25 - 115 07/21/2015 [facility] CHEM PANEL Lipase Lvl 85 unit/L 73 - 393 07/21/2015 [facility] SPECIAL CHEMISTRY Hgb A1C 5.4 % <=5.6 % 07/21/2015 [facility] Chest 1view DX Chest 1view DX EXAM: XR CHEST 1 VIEW DATE: 07/21/2015 1:51 AM CDT INDICATION: PICC Line Placement COMPARISON: None. TECHNIQUE: AP chest, semierect. FINDINGS: Lines and tubes, and life support devices: Right-sided PICC line tip overlies the right brachiocephalic vein. Left subclavian approach AICD noted with lead tips overlying the right atrium and right ventricle. Lungs and pleura: Blunting of the right costophrenic sulcus may represent pleural fluid/thickening. Right lower lung calcific granuloma noted. Mild bibasilar subsegmental atelectasis seen. Heart and mediastinum: Mildly prominent but may be related to portable technique. Bones and soft tissues: No acute osseous abnormality. IMPRESSION: 1. Blunting of the right costophrenic sulcus may represent pleural fluid/thickening. Mild bibasilar subsegmental atelectasis. 2. Right-sided PICC line tip overlies the right brachiocephalic vein. 07/21/2015 - - Read by: Saad Ferris Dictated Date/time: 07/21/15 07:59 Electronically Signed by: Saad Ferris 07/21/15 08:01 FINAL REPORT [facility] Vital Signs Vital Sign Value Date Comments Source Systolic (mm Hg) 109 12/02/2015 [facility] Diastolic (mm Hg) 76 12/02/2015 [facility] Respitory Rate 22 12/02/2015 [facility] Heart Rate 87 12/02/2015 [facility] Temperature Oral (F) 97.6 F 12/02/2015 [facility] Systolic (mm Hg) 122 12/02/2015 [facility] Diastolic (mm Hg) 82 12/02/2015 [facility] Heart Rate 74 12/02/2015 [facility] Temperature Oral (F) 97.3 F 12/02/2015 [facility] Respitory Rate 21 12/02/2015 [facility] Temperature Oral (F) 97.3 F 12/02/2015 [facility] Heart Rate 73 12/02/2015 [facility] Systolic (mm Hg) 104 12/02/2015 [facility] Diastolic (mm Hg) 67 12/02/2015 [facility] Respitory Rate 16 12/02/2015 [facility] Height 182.88 cm 2015 [facility] BMI Calculated 31.53 2015 [facility] Weight 105.455 2015 [facility] Weight 113.636 2015 [facility] Height 182.88 cm 2015 [facility] BMI Calculated 33.98 2015 [facility] Respitory Rate 20 08/23/2015 [facility] Heart Rate 83 08/23/2015 [facility] Temperature Oral (F) 97.4 F 08/23/2015 [facility] Systolic (mm Hg) 107 08/23/2015 [facility] Diastolic (mm Hg) 53 08/23/2015 [facility] Temperature Oral (F) 97.7 F 08/23/2015 [facility] Heart Rate 82 08/23/2015 [facility] Respitory Rate 20 08/23/2015 [facility] Systolic (mm Hg) 130 08/23/2015 [facility] Diastolic (mm Hg) 84 08/23/2015 [facility] Respitory Rate 20 08/23/2015 [facility] Temperature Oral (F) 97.3 F 08/23/2015 [facility] Systolic (mm Hg) 128 08/23/2015 [facility] Diastolic (mm Hg) 85 08/23/2015 [facility] Height 182.88 cm 08/18/2015 [facility] Weight 95 08/18/2015 [facility] BMI Calculated 28.4 08/18/2015 [facility] Heart Rate 83 08/18/2015 [facility] Systolic (mm Hg) 125 08/18/2015 [facility] Diastolic (mm Hg) 82 08/18/2015 [facility] Heart Rate 105 08/18/2015 [facility] Respitory Rate 18 08/18/2015 [facility] Temperature Oral (F) 97.9 F 08/18/2015 [facility] Heart Rate 83 08/18/2015 [facility] Respitory Rate 18 08/18/2015 [facility] Systolic (mm Hg) 91 08/18/2015 [facility] Diastolic (mm Hg) 67 08/18/2015 [facility] Temperature Oral (F) 97.7 F 08/17/2015 [facility] Systolic (mm Hg) 102 08/17/2015 [facility] Diastolic (mm Hg) 71 08/17/2015 [facility] Respitory Rate 18 08/17/2015 [facility] Heart Rate 81 08/17/2015 [facility] Temperature Oral (F) 97.7 F 08/17/2015 [facility] BMI Calculated 29.77 07/21/2015 [facility] Weight 99.574 07/21/2015 [facility] Height 182.88 cm 07/21/2015 [facility] Encounters Location Location Details Encounter Type Encounter Number Reason For Visit Attending Provider ADM Date DC Date Status Source [facility] Inpatient [id number] Arie Chung 07/21/2015 08/18/2015 [facility] OBS Observation Patient [id number] Elham Bryson 08/18/2015 [facility] [id number] Octavio Dc Jr 2015 12/02/2015 [facility] Procedures Procedure Code Date Perfomer Comments Source Insertion of cardiac pacemaker [id number] [facility]
--- OUTSIDE RECORDS SUMMARY | 2018-03-23 14:48 | XMS REPORT | Summary of Care ---
Author Author [facility] Organization [facility] Address Unknown Phone Unavailable Encounter ELENA Anglin(MERCEDES) [id number] Date(s): 11/28/15 - 12/02/15 [facility] [address] [place] [address]- Discharge Disposition: Acute Care Attending Physician: Octavio Wells MD Admitting Physician: Octavio Wells MD Vital Signs 1 2 3 Most recent to oldest [Reference Range]: 182.88 cm (11/28/15 3:46 PM) 182.88 cm (11/28/15 10:29 AM) Height 97.6 DegF (12/02/15 11:03 AM) 97.3 DegF (12/02/15 8:43 AM) 97.3 DegF (12/02/15 3:08 AM) Temperature Oral [96.4-99.1 DegF] 109/76 mmHg (12/02/15 11:03 AM) 122/82 mmHg (12/02/15 8:43 AM) 104/67 mmHg (12/02/15 3:08 AM) Blood Pressure [90-140/60-90 mmHg] 22 BRMIN *HI* (12/02/15 11:03 AM) 21 BRMIN *HI* (12/02/15 7:16 AM) 16 BRMIN (12/02/15 3:08 AM) Respiratory Rate [14-20 BRMIN] 87 bpm (12/02/15 11:03 AM) 74 bpm (12/02/15 8:43 AM) 73 bpm (12/02/15 3:08 AM) Peripheral Pulse Rate [60-100 bpm] 105.455 kg (11/28/15 3:46 PM) 113.636 kg (11/28/15 10:29 AM) Weight 31.53 m2 (11/28/15 3:46 PM) 33.98 m2 (11/28/15 10:29 AM) Body Mass Index Problem List Condition Effective Dates Status Health Status Informant Anxiety(Confirmed) Active COPD(Confirmed) Active COPD(Confirmed) Active Depressed(Confirmed) Active Hypertension(Confirm Active ed) Major depressive Active disorder(Confirmed) Pacemaker(Confirmed) Active 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(Confirmed) Pulmonary Active embolism(Confirmed) Tobacco Active abuse(Confirmed) Unstable Active angina(Confirmed) Allergies, Adverse Reactions, Alerts Substance Reaction Severity Status NKDA Active Medications albuterol 0.083% inhalation solution 2.5 mg, 3.01 mL, Route: INHALATION, Drug form: SOLN, RQ6H, Dosing Weight 113.636 , kg, Start date: 11/28/15 20:00:00 CDT, Duration: 30 day, Stop date: 12/28/15 1 4:00:00 CDT Notes: SEE RT DOCUMENTATION (Same as: Kenneth) Start Date: 11/28/15 Stop Date: 12/02/15 Status: Discontinued albuterol 0.083% inhalation solution 10 mg, Route: NEB, Drug form: SOLN, Continuous, Dosing Weight 113.636, kg, Prior ity: STAT, Start date: 11/28/15 10:59:00 CDT, Duration: 30 day, Stop date: 12/27 10:58:00 CDT Start Date: 11/28/15 Stop Date: 11/28/15 Status: Completed albuterol 0.083% inhalation solution 2.49 mg, 3 mL, Route: NEB, Drug form: SOLN, ONCE, Dosing Weight 113.636, kg, Jacki ority: STAT, Start date: 11/28/15 10:59:00 CDT, Stop date: 11/28/15 10:59:00 CDT Notes: SEE RT DOCUMENTATION (Same as: Kenneth) Start Date: 11/28/15 Stop Date: 11/28/15 Status: Completed albuterol 90 mcg/inh inhalation aerosol 2 puff, Route: INHALATION, Drug Form: AERO/A, Dosing Weight 105.455, kg, QID, LA N Wheezing, Start date: 11/28/15 21:07:00 CDT, Duration: 30 day, Stop date: 12/04 09/17 21:06:00 CDT Notes: Albuterol 90 microgram/inh 8gm HFAWASTE: Aerosol - Return to Pharmacy [facility] as: Kenneth Oakes Start Date: 11/28/15 Stop Date: 12/02/15 Status: Discontinued aspirin 81 mg, 1 tab, Route: PO, Drug form: ECTAB, Daily, Dosing Weight 105.455, kg, Sta rt date: 11/29/15 9:00:00 CDT, Duration: 30 day, Stop date: 12/28/15 9:00:00 CDT Notes: Do not crush or chew.(Same As: Ecotrin) Start Date: 11/29/15 Stop Date: 12/02/15 Status: Discontinued aspirin 325 mg tablet 325 mg, 1 tab, Route: PO, Drug form: TAB, ONCE, Dosing Weight 113.636, kg, Start date: 11/28/15 15:24:00 CDT, Stop date: 11/28/15 15:24:00 CDT Notes: Take with food. Start Date: 11/28/15 Stop Date: 11/28/15 Status: Completed budesonide 1 inhalation, Route: INHALATION, Drug form: PWDR, BID, Dosing Weight 105.455, kg , Start date: 11/29/15 9:00:00 CDT, Duration: 30 day, Stop date: 12/28/15 17:00: 00 CDT Notes: Same as Pulmicort FlexhalerNon-Formulary Drug Start Date: 11/29/15 Stop Date: 12/02/15 Status: Discontinued calcium carbonate 500 mg (200 mg elemental calcium) oral tablet 500 mg, 1 tab, Route: CHEW, Drug form: CHEWTAB, TID, Dosing Weight 105.455, kg, PRN Indigestion, Start date: 11/28/15 21:07:00 CDT, Duration: 30 day, Stop date: 12/28/15 21:06:00 CDT Notes: (Same As: César)Calcium Carbonate 500 ff=196 mg elemental calcium Dose=_ mg calcium carbonate ( mg elemental calcium) Start Date: 11/28/15 Stop Date: 12/02/15 Status: Discontinued carvedilol 3.125 mg, 1 tab, Route: PO, Drug form: TAB, Q12H, Dosing Weight 105.455, kg, Sta rt date: 11/29/15 9:00:00 CDT, Duration: 30 day, Stop date: 12/28/15 21:00:00 CD T Notes: Give with food. (Same As: Coreg) Start Date: 11/29/15 Stop Date: 12/02/15 Status: Discontinued Flonase 0.05 mg/inh nasal spray 2 spray, Route: Each Affected Nostril, Drug Form: SPRY, Dosing Weight 105.455, k g, Daily, Start date: 11/29/15 9:00:00 CDT, Duration: 30 day, Stop date: 6 9:00:00 CDT Notes: (Same as: Flonase) Start Date: 11/29/15 Stop Date: 12/02/15 Status: Discontinued folic acid 1 mg, 1 tab, Route: PO, Drug form: TAB, Daily, Dosing Weight 105.455, kg, Start date: 11/29/15 9:00:00 CDT, Duration: 30 day, Stop date: 12/28/15 9:00:00 CDT Notes: (Same as: Folvite) Start Date: 11/29/15 Stop Date: 12/02/15 Status: Discontinued ipratropium 0.5 mg, 2.5 mL, Route: NEB, Drug form: SOLN, ONCE, Dosing Weight 113.636, kg, Pr iority: STAT, Start date: 11/28/15 10:59:00 CDT, Stop date: 11/28/15 10:59:00 CD T Notes: SEE RT DOCUMENTATION(Same as:Atrovent) Start Date: 11/28/15 Stop Date: 11/28/15 Status: Completed lamoTRIgine 25 mg oral tablet 25 mg=1 tab, PO, BID, 0 Refill(s) Start Date: 12/02/15 Status: Ordered lamoTRIgine 25 mg oral tablet 25 mg, 1 tab, Route: PO, Drug form: TAB, BID, Dosing Weight 105.455, kg, Priorit y: NOW, Start date: 12/02/15 11:31:00 CDT, Duration: 30 day, Stop date: 01/01/16 9:00:00 CDT Notes: (Same as:LaMICtal) Start Date: 12/02/15 Stop Date: 12/02/15 Status: Discontinued Lovenox 105.455 mg, 0.7 mL, Route: SUB-Q, Drug form: INJ, [id number], Dosing Weight 105.45 5, kg, Start date: 11/28/15 17:00:00 CDT, Duration: 30 day, Stop date: 12/28/15 9:00:00 CDT Notes: Nurse to ensure documentation of patient education per anticoagulation po licy. (Same as: Lovenox) Start Date: 11/28/15 Stop Date: 11/29/15 Status: Discontinued magnesium sulfate 2 gm, Route: IVPB, ONCE, Dosing Weight 113.636, kg, Priority: STAT, Start date: 11/28/15 10:59:00 CDT, Stop date: 11/28/15 10:59:00 CDT Start Date: 11/28/15 Stop Date: 11/28/15 Status: Completed methylPREDNISolone SODium SUCCinate 125 mg, 2 mL, Route: IVP, Drug form: INJ, ONCE, Dosing Weight 113.636, kg, Prior ity: STAT, Start date: 11/28/15 10:59:00 CDT, Stop date: 11/28/15 10:59:00 CDT Notes: (Same as:Solu-MEDROL, A-Methapred) Start Date: 11/28/15 Stop Date: 11/28/15 Status: Completed mirtazapine 30 mg, 2 tab, Route: PO, Drug form: TAB, Bedtime, Dosing Weight 105.455, kg, Sta rt date: 11/29/15 21:00:00 CDT, Duration: 30 day, Stop date: 12/28/15 21:00:00 C DT Notes: (Same as:Remeron) Start Date: 11/29/15 Stop Date: 12/02/15 Status: Discontinued morphine Sulfate 4 mg, Route: IVP, Drug form: INJ, ONCE, Dosing Weight 113.636, kg, Priority: STA T, Start date: 11/28/15 13:34:00 CDT, Stop date: 11/28/15 13:34:00 CDT Start Date: 11/28/15 Stop Date: 11/28/15 Status: Completed morphine Sulfate 2 mg, 1 mL, Route: IVP, Drug form: INJ, Q15Min, Dosing Weight 113.636, kg, PRN C hest Pain, Start date: 11/28/15 15:24:00 CDT, Duration: 2 doses or times, Stop d ate: Limited # of times Notes: (Same as:MORPhine Sulfate) Start Date: 11/28/15 Stop Date: 11/29/15 Status: Completed nitroglycerin 0.4 mg sublingual tablet 0.4 mg, 1 tab, Route: SL, Drug form: TAB, Q5Min, Dosing Weight 105.455, kg, PRN Chest Pain, Start date: 11/28/15 21:08:00 CDT, Duration: 30 day, Stop date: 12/04 09/17 21:07:00 CDT Start Date: 11/28/15 Stop Date: 11/28/15 Status: Deleted nitroglycerin 2% topical ointment 0.5 inch, Route: TOP, Dosing Weight 113.636, kg, ONCE, STAT, Start date: 6 13:32:00 CDT, Stop date: 11/28/15 13:32:00 CDT Start Date: 11/28/15 Stop Date: 11/28/15 Status: Completed nitroglycerin SL Tab 0.4 mg, 1 tab, Route: SL, Drug form: TAB, Q5Min, Dosing Weight 113.636, kg, PRN Chest Pain, Start date: 11/28/15 15:24:00 CDT, Duration: 3 doses or times, Stop date: Limited # of times Notes: (Same as:Nitroquick, Nitrostat)"Do Not Crush" Sublingual tablet Start Date: 11/28/15 Stop Date: 12/02/15 Status: Discontinued NS (Bolus) IV 1,000 mL, 1,000 ml/hr, Infuse Over: 1 hr, Route: IV, ONCE, Priority: STAT, Dosin g Weight 113.636 kg, Start date: 11/28/15 13:34:00 CDT, Duration: 1 doses or yo es, Stop date: 11/28/15 13:34:00 CDT Start Date: 11/28/15 Stop Date: 11/28/15 Status: Completed ondansetron 4 mg, 1 tab, Route: PO, Drug form: TAB, Q8H, Dosing Weight 113.636, kg, PRN Naus ea & Vomiting, Start date: 11/28/15 15:24:00 CDT, Duration: 30 day, Stop date: 12/28/15 15:23:00 CDT Notes: (Same as: Zofran) Start Date: 11/28/15 Stop Date: 12/02/15 Status: Discontinued polyethylene glycol 3350 17 gm, 1 pkt, Route: PO, Drug form: PWDR, BID, Dosing Weight 105.455, kg, Start date: 11/29/15 9:00:00 CDT, Duration: 30 day, Stop date: 12/28/15 17:00:00 CDT Notes: Dissolve in 8 oz of water or juice.(Same as: Miralax) Start Date: 11/29/15 Stop Date: 12/02/15 Status: Discontinued QUEtiapine 25 mg oral tablet 25 mg=1 tab, PO, Q4H, PRN Anxiety, 0 Refill(s) Start Date: 12/02/15 Status: Ordered QUEtiapine 25 mg oral tablet 25 mg=1 tab, PO, TID, 0 Refill(s) Start Date: 12/02/15 Status: Ordered rivaroxaban 20 mg oral tablet 20 mg=1 tab, PO, QPM, 0 Refill(s) Start Date: 12/02/15 Status: Ordered Saline Flush 0.9% 10 mL, Route: IVP, Drug Form: INJ, Dosing Weight 113.636, kg, PRN, PRN Line Flus h, Start date: 11/28/15 10:59:00 CDT, Duration: 30 day, Stop date: 12/28/15 10:5 8:00 CDT Notes: (Same as: BD Posiflush) Start Date: 11/28/15 Stop Date: 11/28/15 Status: Discontinued Saline Flush 0.9% 10 ml, Route: IVP, Drug Form: INJ, Dosing Weight 113.636, kg, Q12H, Start date: 11/28/15 21:00:00 CDT, Duration: 30 day, Stop date: 12/28/15 9:00:00 CDT Notes: (Same as: BD Posiflush) Start Date: 11/28/15 Stop Date: 12/02/15 Status: Discontinued Saline Flush 0.9% 10 ml, Route: IVP, Drug Form: INJ, Dosing Weight 113.636, kg, PRN, PRN Line Flus h, Start date: 11/28/15 15:24:00 CDT, Duration: 30 day, Stop date: 12/28/15 15:2 3:00 CDT Notes: (Same as: BD Posiflush) Start Date: 11/28/15 Stop Date: 12/02/15 Status: Discontinued SEROquel 25 mg, 1 tab, Route: PO, Drug form: TAB, Q6H, Dosing Weight 105.455, kg, PRN Marylu tation, Start date: 11/29/15 19:38:00 CDT, Duration: 30 day, Stop date: 12/29/15 19:37:00 CDT Notes: (Same as: SEROquel) Start Date: 11/29/15 Stop Date: 12/02/15 Status: Discontinued SEROquel 25 mg, 1 tab, Route: PO, Drug form: TAB, Q4H, Dosing Weight 105.455, kg, PRN Anx iety, Start date: 12/02/15 12:54:00 CDT, Duration: 30 day, Stop date: 01/01/16 1 2:53:00 CDT Notes: (Same as: SEROquel) Start Date: 12/02/15 Stop Date: 12/02/15 Status: Discontinued SEROquel 25 mg, 1 tab, Route: PO, Drug form: TAB, TID, Dosing Weight 105.455, kg, Start d ate: 12/02/15 13:00:00 CDT, Duration: 30 day, Stop date: 01/01/16 9:00:00 CDT Notes: (Same as: SEROquel) Start Date: 12/02/15 Stop Date: 12/02/15 Status: Discontinued SEROquel 50 mg, 2 tab, Route: PO, Drug form: TAB, Bedtime, Dosing Weight 105.455, kg, Sta rt date: 11/29/15 21:00:00 CDT, Stop date: 12/28/15 21:00:00 CDT Notes: (Same as: SEROquel) Start Date: 11/29/15 Stop Date: 12/02/15 Status: Discontinued thiamine 100 mg, 1 tab, Route: PO, Drug form: TAB, Daily, Dosing Weight 105.455, kg, Star t date: 11/29/15 9:00:00 CDT, Duration: 30 day, Stop date: 12/28/15 9:00:00 CDT Notes: (Same As: Vitamin B1) Start Date: 11/29/15 Stop Date: 12/02/15 Status: Discontinued Tylenol with Codeine #3 oral tablet 1 tab, Route: PO, Drug Form: TAB, Dosing Weight 105.455, kg, Q6H, PRN Pain Score 6-10, Start date: 11/29/15 18:44:00 CDT, Duration: 30 day, Stop date: 12/29/15 18:43:00 CDT Notes: Do not exceed 4gm/day of acetaminophen. (Same as: Tylenol with Codeine # 3) Start Date: 11/29/15 Stop Date: 12/02/15 Status: Discontinued Xanax 1 mg oral tablet 1 mg, 1 tab, Route: PO, Drug form: TAB, ONCE, Dosing Weight 105.455, kg, PRN Anx iety, Start date: 11/28/15 16:13:00 CDT, Stop date: 12/28/15 16:12:00 CDT Notes: With food or milk(Same as: Xanax) Start Date: 11/28/15 Stop Date: 11/28/15 Status: Completed Xarelto 20 mg, 1 tab, Route: PO, Drug form: TAB, QPM, Dosing Weight 105.455, kg, Start d ate: 11/29/15 20:00:00 CDT, Duration: 30 day, Stop date: 12/28/15 20:00:00 CDT Notes: (Same as: Xarelto)Administer with food Start Date: 11/29/15 Stop Date: 12/02/15 Status: Discontinued Results ELECTROLYTES 1 2 3 Most recent to oldest [Reference Range]: 141 mEq/L (11/28/15 11:16 AM) Sodium Lvl [135-145 mEq/L] 4.0 mEq/L (11/28/15 11:16 AM) Potassium Lvl [3.5-5.1 mEq/L] 106 mEq/L (7/26/16 11:16 AM) Chloride Lvl [95-109 mEq/L] 29 mEq/L (11/28/15 11:16 AM) CO2 [24-32 mEq/L] 10.0 mEq/L (11/28/15 11:16 AM) AGAP [10.0-20.0 mEq/L] CHEM PANEL 1 2 3 Most recent to oldest [Reference Range]: 0.86 mg/dL (11/28/15 11:16 AM) Creatinine Lvl [0.50-1.40 mg/dL] 96 mL/min/1.73m2 1 *NA* (11/28/15 11:16 AM) eGFR 11 mg/dL (11/28/15 11:16 AM) BUN [7-22 mg/dL] 13 (11/28/15 11:16 AM) B/C Ratio [6-25] 86 mg/dL (11/28/15 11:16 AM) Glucose Lvl [70-99 mg/dL] 7.2 g/dL (11/28/15 11:16 AM) Total Protein [6.4-8.4 g/dL] 3.7 g/dL (11/28/15 11:16 AM) Albumin Lvl [3.5-5.0 g/dL] 3.5 g/dL (11/28/15 11:16 AM) Globulin [2.0-4.0 g/dL] 1.1 (11/28/15 11:16 AM) A/G Ratio [0.7-1.6] 8.6 mg/dL (11/28/15 11:16 AM) Calcium Lvl [8.5-10.5 mg/dL] 26 unit/L (11/28/15 11:16 AM) ALT [0-65 unit/L] 16 unit/L (11/28/15 11:16 AM) AST [0-37 unit/L] 64 unit/L (11/28/15 11:16 AM) Alk Phos [39-136 unit/L] 0.3 mg/dL (11/28/15 11:16 AM) Bili Total [0.2-1.3 mg/dL] 1Result Comment: The eGFR is calculated using the [...] from the National Kidney Disease Education Program ( NKDEP) which additionally recommends that when the eGFR is used in patients with extremes of body mass index for purposes of drug dosing, the eGFR should be mul tiplied by the estimated BMI. CARDIAC ENZYMES 1 2 3 Most recent to oldest [Reference Range]: 48 unit/L (11/28/15 9:15 PM) 50 unit/L (11/28/15 6:03 PM) 57 unit/L (11/28/15 11:16 AM) Total CK [12-191 unit/L] 2.7 ng/mL (11/28/15 11:16 AM) CK MB [0.5-3.6 ng/mL] 4.7 *HI* (11/28/15 11:16 AM) CK MB Index [0.0-2.5] <0.02 ng/mL (11/28/15 9:15 PM) <0.02 ng/mL (11/28/15 6:03 PM) <0.02 ng/mL (11/28/15 11:16 AM) Troponin-I [0.00-0.40 ng/mL] 92 pg/mL (11/28/15 11:16 AM) BNP [<=100 pg/mL] LIPIDS 1 2 3 Most recent to oldest [Reference Range]: 3.28 *LOW* (11/29/15 5:17 AM) CHD Risk [4.00-7.30] 210 mg/dL *HI* (11/29/15 5:17 AM) Chol [<=199 mg/dL] 69 mg/dL (11/29/15 5:17 AM) Trig [<=149 mg/dL] 64 mg/dL (11/29/15 5:17 AM) HDL [>=61 mg/dL] 132 mg/dL *HI* (11/29/15 5:17 AM) LDL (Calculated) [<=99 mg/dL] 14 *NA* (11/29/15 5:17 AM) VLDL HEMATOLOGY 1 2 3 Most recent to oldest [Reference Range]: 11.6 K/CMM *HI* (11/28/15 11:16 AM) WBC [3.7-10.4 K/CMM] 5.08 M/CMM (11/28/15 11:16 AM) RBC [4.70-6.10 M/CMM] 14.0 g/dL (11/28/15 11:16 AM) Hgb [14.0-18.0 g/dL] 43.6 % (11/28/15 11:16 AM) Hct [42.0-54.0 %] 85.7 fL (11/28/15 11:16 AM) MCV [80.0-94.0 fL] 27.5 pg (11/28/15 11:16 AM) MCH [27.0-31.0 pg] 32.1 g/dL (11/28/15 11:16 AM) MCHC [32.0-36.0 g/dL] 15.0 % *HI* (11/28/15 11:16 AM) RDW [11.5-14.5 %] 244 K/CMM (11/28/15 11:16 AM) Platelet [133-450 K/CMM] 7.4 fL (11/28/15 11:16 AM) MPV [7.4-10.4 fL] 67.3 % (11/28/15 11:16 AM) Segs [45.0-75.0 %] 25.5 % (11/28/15 11:16 AM) Lymphocytes [20.0-40.0 %] 6.1 % (11/28/15 11:16 AM) Monocytes [2.0-12.0 %] 0.2 % (11/28/15 11:16 AM) Eosinophils [0.0-4.0 %] 0.9 % (11/28/15 11:16 AM) Basophils [0.0-1.0 %] 7.8 K/CMM (11/28/15 11:16 AM) Segs-Bands # [1.5-8.1 K/CMM] 3.0 K/CMM (11/28/15 11:16 AM) Lymphocytes # [1.0-5.5 K/CMM] 0.7 K/CMM (11/28/15 11:16 AM) Monocytes # [0.0-0.8 K/CMM] 0.1 K/CMM (11/28/15 11:16 AM) Basophils # [0.0-0.2 K/CMM] 14.0 seconds (11/29/15 5:17 AM) PT [12.0-14.7 seconds] 1.05 (11/29/15 5:17 AM) INR [0.85-1.17] Immunizations No data available for this section Procedures Procedure Date Related Diagnosis Body Site Insertion of cardiac pacemaker Social History Social History Type Response Alcohol Current, Type Beer. Frequency: Daily. 3 Drinks/Episode average. Started age 18 Years. Previous treatment: None. Alcohol use interferes with work or home: No. Drinks more than intended: Yes. Others hurt by drinking: No. Ready to change: No. Household alcohol concerns: No. 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 ok to d/c from CV perspective. Subjective: Patient seen and examined. No cp or sob PPM interrogation reviewed. normal function. chronic a-fib. Objective: Vitals and Temp: VitalsTmp(F)[id number] 12/01 11:[id number]--- 12/01 08:4397.803193/82-------- 12/01 07:16 2198 1.0L/m 12/01 07:15 98 1.0L/m 12/01 03:[id number] 3.0L/m 24 Hr Tmax: 98F (36.67c) at 11/30 16:00Vital Signs are the last 5 in the past 48 hours. General: Awake and Alert, NAD HEENT: Neck Supple, No JVD CVS: Regular rate, Normal S1S2 LUNGS: mildly decreased bs ABD: Soft, Non-tender, + BS EXT: No edema, Skin: No ulcers Neuro: Awake and Alert, Labs (Last four charted values) WBC H 11.6(NOV 27) Hgb 14.0(NOV 27) Hct 43.6(NOV 27) Plt 244(NOV 27) Na 141(NOV 27) K 4.0(NOV 27) CO2 29(NOV 27) Cl 106(NOV 27) Cr 0.86(NOV 27) BUN 11(NOV 27) Glucose Random 86(NOV 27) Ca 8.6(NOV 27) PT 14.0(NOV 28) INR 1.05(NOV 28) Troponin <0.02(NOV 27)<0.02(NOV 27)<0.02(NOV 27) CK MB 2.7(NOV 27) Total CK 48(NOV 27)50(NOV 27)57(NOV 27) Scheduled Meds (13): 12/02/15 QUEtiapine (SEROquel) 25 mg PO TID 11/28/15 albuterol (albuterol 0.083% inhalation solution) 2.5 mg INHALATION RQ6H 11/29/15 aspirin 81 mg PO Daily 11/29/15 budesonide 1 inhalation INHALATION BID 11/29/15 carvedilol 3.125 mg PO Q12H 11/29/15 fluticasone nasal (Flonase 0.05 mg/inh nasal spray) 2 spray Each Affected Nostril Daily 11/29/15 folic acid 1 mg PO Daily 12/02/15 lamoTRIgine (lamoTRIgine 25 mg oral tablet) 25 mg PO BID 11/29/15 mirtazapine 30 mg PO Bedtime 11/29/15 polyethylene glycol 3350 17 gm PO BID 11/29/15 rivaroxaban (Xarelto) 20 mg PO QPM 11/28/15 sodium chloride (Saline Flush 0.9%) 10 ml IVP Q12H 11/29/15 thiamine 100 mg PO Daily Continuous Infusions: None Extracted from: Title: Hospitalist History and Author: Octavio Wells MD Date: 11/28/15 Physical Assessment/Plan 1.Pulmonary embolism There is no way to know if this is acute versus chronic without his prior CTA of the chest done at the [facility]. Those records would be helpful, to determineif this is merely resolution of a known pulmonary embolism versus a new clot. There was no INR with EC evaluation, so it is not known if he therapeutic presently. Will order with AM labs. Agree with starting lovenox weight based. Plan to resume warfarin as well. He is very stable hemodynamically 2.Anxiety Patient apparently had an anxiety attack while in CDU. 3.COPD Does not appear to be having an acute exacerbation. No wheezing auscultated. Has severe COPD. Will resume home medications. Ordered: albuterol 90 mcg/inh inhalation aerosol, 180 microgram, 2 puff, Route: INHALATION, Drug Form: AERO/A, Dosing Weight 105.455, kg, QID, PRN Wheezing, Start date: 11/28/15 21:07:00 CDT, Duration: 30 day, Stop date: 12/28/15 21:06:00 CDT budesonide, 180 microgram, Route: INHALATION, Drug form: PWDR, BID, Dosing Weight 105.455, kg, Start date: 11/29/15 9:00:00 CDT, Duration: 30 day, Stop date: 12/28/15 17:00:00 CDT 4.Major depressive disorder Will resume patient's home mirtazepine. The patient apparently has significant mental delay as well as suffering related to the of his 18 months ago. Does not appear suicidal, though not specifically asked. Ordered: mirtazapine, 30 mg, Route: PO, Drug form: TAB, Bedtime, Dosing Weight 105.455, kg, Start date: 11/29/15 21:00:00 CDT, Duration: 30 day, Stop date: 12/28/15 21:00:00 CDT Orders: albuterol 0.083% inhalation solution, 2.5 mg, 3.01 mL, Route: INHALATION, Drug form: SOLN, RQ6H, Dosing Weight 113.636, kg, Start date: 11/28/15 20:00:00 CDT, Duration: 30 day, Stop date: 12/28/15 14:00:00 CDT aspirin, 81 mg, Route: PO, Daily, Dosing Weight 105.455, kg, Start date: 11/29/15 9:00:00 CDT, Duration: 30 day, Stop date: 12/28/15 9:00:00 CDT calcium carbonate 500 mg (200 mg elemental calcium) oral tablet, 500 mg, 1 tab, Route: CHEW, Drug form: CHEWTAB, TID, Dosing Weight 105.455, kg, PRN Indigestion, Start date: 11/28/15 21:07:00 CDT, Duration: 30 day, Stop date: 12/28/15 21:06:00 CDT carvedilol, 3.125 mg, Route: PO, Drug form: TAB, Q12H, Dosing Weight 105.455, kg, Start date: 11/29/15 9:00:00 CDT, Duration: 30 day, Stop date: 12/28/15 21:00:00 CDT Flonase 0.05 mg/inh nasal spray, 100 microgram, 2 spray, Route: Each Affected Nostril, Drug Form: SPRY, Dosing Weight 105.455, kg, Daily, Start date: 11/29/15 9:00:00 CDT, Duration: 30 day, Stop date: 12/28/15 9:00:00 CDT folic acid, 1 mg, Route: PO, Drug form: TAB, Daily, Dosing Weight 105.455, kg, Start date: 11/29/15 9:00:00 CDT, Duration: 30 day, Stop date: 12/28/15 9:00:00 CDT morphine Sulfate, 2 mg, 1 mL, Route: IVP, Drug form: INJ, Q15Min, Dosing Weight 113.636, kg, PRN Chest Pain, Start date: 11/28/15 15:24:00 CDT, Duration: 2 doses or times, Stop date: Limited # of times nitroglycerin 0.4 mg sublingual tablet, 0.4 mg, 1 tab, Route: SL, Drug form: TAB, Q5Min, Dosing Weight 105.455, kg, PRN Chest Pain, Start date: 11/28/15 21:08:00 CDT, Duration: 30 day, Stop date: 12/28/15 21:07:00 CDT nitroglycerin SL Tab, 0.4 mg, 1 tab, Route: SL, Drug form: TAB, Q5Min, Dosing Weight 113.636, kg, PRN Chest Pain, Start date: 11/28/15 15:24:00 CDT, Duration: 3 doses or times, Stop date: Limited # of times ondansetron, 4 mg, 1 tab, Route: PO, Drug form: TAB, Q8H, Dosing Weight 113.636, kg, PRN Nausea & Vomiting, Start date: 11/28/15 15:24:00 CDT, Duration: 30 day, Stop date: 12/28/15 15:23:00 CDT polyethylene glycol 3350, 17 gm, Route: PO, Drug form: PDR/REC, BID, Dosing Weight 105.455, kg, Start date: 11/29/15 9:00:00 CDT, Duration: 30 day, Stop date: 12/28/15 17:00:00 CDT Saline Flush 0.9%, 10 ml, Route: IVP, Drug Form: INJ, Dosing Weight 113.636, kg, Q12H, Start date: 11/28/15 21:00:00 CDT, Duration: 30 day, Stop date: 12/28/15 9:00:00 CDT Saline Flush 0.9%, 10 ml, Route: IVP, Drug Form: INJ, Dosing Weight 113.636, kg, PRN, PRN Line Flush, Start date: 11/28/15 15:24:00 CDT, Duration: 30 day, Stop date: 12/28/15 15:23:00 CDT thiamine, 100 mg, Route: PO, Drug form: TAB, Daily, Dosing Weight 105.455, kg, Start date: 11/29/15 9:00:00 CDT, Duration: 30 day, Stop date: 12/28/15 9:00:00 CDT Admit / Condition Ambulation Cardiac Monitoring (e.g. ED, PACU, IMU, ICU) CDM Cardiac Enzymes Panel CDM Chest Pain Low Risk Admission CDM Saline Lock Interrogate Device Creatine Kinase w/ Reflex MB Isoenzyme Diet Heart Healthy IV Saline Lock AC4 Lipid Panel w/calculated LDL Nebulizer Treatment Notify MD Notify MD Notify MD Notify MD Patient Assessment by Respiratory Care Provide Education AC4 PT Pulse Oximetry - Continuous Resuscitation (Code) Status Telemetry (e.g. Acute Care Floor) Troponin-I Vital Signs Prophylaxis On treatment dose of lovenox Disposition I doubt any true acuity in his diagnosis. Will plan for discharge tomorrow. Will likely need SW assistance. [facility] is primary. Call with questions.
--- OUTSIDE RECORDS SUMMARY | 2018-03-23 14:48 | XMS REPORT | Summary of Care ---
Author Author [facility] Organization [facility] Address Unknown Phone Unavailable Encounter ELENA Anglin(MERCEDES) [id number] Date(s): 07/21/15 - 08/18/15 [facility] [address] [employer] provided by [facility] [place] [address]- Discharge Disposition: Home Attending Physician: Arie Chung MD Admitting Physician: Lance Bailon MD Referring Physician: Michelet Mayo MD Vital Signs 1 2 3 Most recent to oldest [Reference Range]: 182.88 cm (07/21/15 1:52 AM) Height 95.909 kg (08/05/15 4:00 AM) 96.773 kg (08/04/15 4:49 AM) 96.818 kg (08/03/15 5:09 AM) Current Weight 97.9 DegF (08/17/15 7:32 PM) 97.7 DegF (08/17/15 4:20 PM) 97.7 DegF (08/17/15 8:42 AM) Temperature Oral [96.4-99.1 DegF] 125/82 mmHg (08/17/15 9:57 PM) 91/67 mmHg (08/17/15 7:32 PM) 102/71 mmHg (08/17/15 4:20 PM) Blood Pressure [90-140/60-90 mmHg] 18 BRMIN (08/17/15 8:21 PM) 18 BRMIN (08/17/15 7:32 PM) 18 BRMIN (08/17/15 4:20 PM) Respiratory Rate [14-20 BRMIN] 105 bpm *HI* (08/17/15 9:57 PM) 83 bpm (08/17/15 7:32 PM) 81 bpm (08/17/15 4:20 PM) Peripheral Pulse Rate [60-100 bpm] 99.574 kg (07/21/15 1:52 AM) Weight 29.77 m2 (07/21/15 1:52 AM) Body Mass Index Problem List Condition Effective Dates Status Health Status Informant Anxiety(Confirmed) Active COPD(Confirmed) Active COPD(Confirmed) Active Depressed(Confirmed) Active Hypertension(Confirm Active ed) Major depressive Active disorder(Confirmed) Pacemaker(Confirmed) Active 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(Confirmed) Pulmonary Active embolism(Confirmed) Tobacco Active abuse(Confirmed) Unstable Active angina(Confirmed) Allergies, Adverse Reactions, Alerts Substance Reaction Severity Status NKDA Active Medications acetaminophen 500 mg oral tablet 1,000 mg=2 tab, PO, Q6H, PRN Pain Score 1-5, 0 Refill(s) Start Date: 08/17/15 Status: Ordered albuterol 0.083% inhalation solution 2.49 mg, 3 mL, Route: PO, Drug form: SOLN, RQ4H, Dosing Weight 99.574, kg, PRN W beth, Start date: 08/02/15 10:21:00, Duration: 30 day, Stop date: 09/01/15 10 :20:00 Notes: SEE RT DOCUMENTATION (Same as: Kenneth) Start Date: 08/02/15 Stop Date: 08/18/15 Status: Discontinued albuterol 90 mcg/inh inhalation aerosol 2 puff, INHALATION, QID, # 3 ea, 0 Refill(s) Start Date: 08/12/15 Stop Date: 08/17/15 Status: Discontinued albuterol 90 mcg/inh inhalation aerosol 2 puff, INHALATION, QID, PRN as needed for wheezing, # 3 ea, 0 Refill(s), other Start Date: 08/17/15 Status: Ordered albuterol-ipratropium 2.5-0.5 mg inhalation solution 3 ml, Route: NEB, Drug Form: SOLN, Dosing Weight 99.574, kg, RQ4H, STAT, Start d ate: 07/30/15 18:45:00, Duration: 30 day, Stop date: 08/29/15 15:00:00 Notes: (Same as: Conner) Start Date: 07/30/15 Stop Date: 08/18/15 Status: Discontinued ALPRAZOLam 0.25 mg oral tablet 0.25 mg=1 tab, PO, BID, PRN anxiety, stress, # 20 tab, 0 Refill(s) Start Date: 07/21/15 Stop Date: 08/12/15 Status: Discontinued Artificial Tears 2 drp, Route: BOTH EYES, PRN, Drug form: SOLN, PRN as needed for dry eyes, Start date: 07/21/15 3:33:00 CDT, Duration: 30 day, Stop date: 09/19/15 3:32:00 CDT Start Date: 07/21/15 Stop Date: 08/18/15 Status: Discontinued Artificial Tears BOTH EYES, PRN, 1 drop each eye q 4 hours, 0 Refill(s) Start Date: 07/21/15 Stop Date: 08/12/15 Status: Discontinued aspirin 81 mg, PO, Daily, 0 Refill(s) Start Date: 07/21/15 Status: Ordered aspirin 81 mg, 1 tab, Route: PO, Drug form: ECTAB, Daily, Dosing Weight 99.574, kg, Star t date: 07/21/15 9:00:00, Duration: 30 day, Stop date: 09/18/15 9:00:00 Notes: Do not crush or chew.(Same As: Ecotrin) Start Date: 07/21/15 Stop Date: 08/18/15 Status: Discontinued Ativan 0.5 mg, 1 tab, Route: PO, Drug form: TAB, TID, Dosing Weight 99.574, kg, PRN Anx iety, Start date: 08/06/15 9:39:00, Duration: 30 day, Stop date: 09/05/15 9:38:0 0 Notes: (Same as: Ativan) Start Date: 08/06/15 Stop Date: 08/12/15 Status: Discontinued Ativan 0.5 mg, 0.25 mL, Route: IV, Drug form: INJ, ONCE, Dosing Weight 99.574, kg, Star t date: 08/06/15 9:06:00, Stop date: 08/06/15 9:06:00 Notes: (Same as: Ativan) Start Date: 08/06/15 Stop Date: 08/06/15 Status: Completed Ativan 1 mg, 0.5 mL, Route: IVP, Drug form: INJ, ONCE, Dosing Weight 99.574, kg, Start date: 08/15/15 19:39:00 CDT, Stop date: 08/15/15 19:39:00 CDT Notes: (Same as: Ativan) Start Date: 08/15/15 Stop Date: 08/15/15 Status: Completed Ativan 1 mg, Route: IVP, Drug form: INJ, ONCE, Dosing Weight 99.574, kg, Start date: 19:39:00 CDT, Stop date: 08/15/15 19:39:00 CDT Start Date: 08/15/15 Stop Date: 08/15/15 Status: Completed Ativan 0.5 mg, 0.25 mL, Route: IV, Drug form: INJ, ONCE, Dosing Weight 99.574, kg, Star t date: 08/06/15 8:49:00, Stop date: 08/06/15 8:49:00 Notes: (Same as: Ativan) Start Date: 08/06/15 Stop Date: 08/06/15 Status: Completed Ativan 1 mg, 1 tab, Route: PO, Drug form: TAB, ONCE, Dosing Weight 99.574, kg, Start da te: 08/17/15 23:25:00 CDT, Stop date: 08/17/15 23:25:00 CDT Notes: (Same as: Ativan) Start Date: 08/17/15 Stop Date: 08/17/15 Status: Completed azithromycin 250 mg oral tablet 250 mg, 1 tab, Route: PO, Drug form: TAB, Daily, Dosing Weight 99.574, kg, Start date: 07/31/15 9:00:00, Duration: 4 day, Stop date: 08/03/15 9:00:00 Notes: Take 1 hour before or 2 hours after meals.(Same As: Zithromax) Start Date: 07/31/15 Stop Date: 08/03/15 Status: Completed azithromycin 500 mg oral tablet 500 mg, 2 tab, Route: PO, Drug form: TAB, Daily, Dosing Weight 99.574, kg, Prior ity: STAT, Start date: 07/30/15 18:45:00, Duration: 1 doses or times, Stop date: 07/30/15 18:45:00 Notes: Take 1 hour before or 2 hours after meals.(Same As: Zithromax) Start Date: 07/30/15 Stop Date: 07/30/15 Status: Completed budesonide 180 mcg/inh inhalation powder 1 puff, INHALATION, BID, # 2 ea, 0 Refill(s) Start Date: 08/12/15 Status: Ordered Bumex 1 mg, 1 tab, Route: PO, Drug form: TAB, Daily, Dosing Weight 99.574, kg, Start d ate: 08/01/15 9:00:00, Duration: 30 day, Stop date: 08/30/15 9:00:00 Notes: (Same As: Bumex) Start Date: 08/01/15 Stop Date: 08/13/15 Status: Discontinued Bumex 1 mg, 4 mL, Route: IVP, Drug form: INJ, Daily, Dosing Weight 99.574, kg, Priorit y: NOW, Start date: 07/29/15 10:17:00, Duration: 30 day, Stop date: 08/28/15 9:0 0:00 Notes: (Same As: Bumex) Start Date: 07/29/15 Stop Date: 07/31/15 Status: Discontinued BuSpar 5 mg, 1 tab, Route: PO, Drug form: TAB, TID, Dosing Weight 99.574, kg, Start nanda e: 08/17/15 9:00:00 CDT, Duration: 30 day, Stop date: 09/15/15 17:00:00 CDT Notes: (Same As: BuSpar) Start Date: 08/17/15 Stop Date: 08/18/15 Status: Discontinued busPIRone 5 mg oral tablet 5 mg=1 tab, PO, TID, Investigating the current use. New rx from 08/17/15 but not seen on papaers provided by facility. RN Sonny will fax the list, 0 Refill(s) Start Date: 08/17/15 Stop Date: 08/18/15 Status: Completed calcium carbonate 500 mg (200 mg elemental calcium) oral tablet 500 mg=1 tab, CHEW, TID, PRN Indigestion, 0 Refill(s) Start Date: 08/17/15 Status: Ordered carvedilol 3.125 mg oral tablet 3.125 mg=1 tab, PO, Q12H, # 60 tab, 0 Refill(s) Start Date: 08/12/15 Status: Ordered clonazePAM 0.5 mg, 1 tab, Route: PO, Drug form: TAB, Q6H, Dosing Weight 99.574, kg, PRN Anx iety, Start date: 07/21/15 3:33:00, Duration: 30 day, Stop date: 08/20/15 3:32:0 0 Notes: (Same As: RoelonoPIN) Start Date: 07/21/15 Stop Date: 08/13/15 Status: Discontinued clonazePAM 0.25 mg, 0.5 tab, Route: PO, Drug form: TAB, ONCE, Dosing Weight 99.574, kg, Jacki ority: NOW, Start date: 08/15/15 10:09:00 CDT, Stop date: 08/15/15 10:09:00 CDT Notes: (Same As: KlonoPIN) Start Date: 08/15/15 Stop Date: 08/15/15 Status: Completed clonazePAM 0.5 mg oral tablet 0.5 mg=1 tab, PO, PRN, Prn anxiety q 6 hrs, 0 Refill(s) Start Date: 07/21/15 Stop Date: 08/12/15 Status: Discontinued cloNIDine 0.1 mg oral tablet 0.1 mg, 1 tab, Route: PO, Drug form: TAB, TID, Dosing Weight 99.574, kg, Start d ate: 07/22/15 17:00:00, Duration: 30 day, Stop date: 08/21/15 13:00:00 Notes: (Same As: Sushma) Start Date: 07/22/15 Stop Date: 07/28/15 Status: Discontinued cloNIDine 0.1 mg oral tablet 0.1 mg=1 tab, PO, QID, 0 Refill(s) Start Date: 07/21/15 Stop Date: 08/12/15 Status: Discontinued cloNIDine 0.1 mg oral tablet 0.1 mg, 1 tab, Route: PO, Drug form: TAB, QID, Dosing Weight 99.574, kg, Start d ate: 07/21/15 9:00:00, Duration: 30 day, Stop date: 08/19/15 21:00:00 Notes: (Same As: Catapres) Start Date: 07/21/15 Stop Date: 07/22/15 Status: Discontinued Coreg 3.125 mg, 1 tab, Route: PO, Drug form: TAB, Q12H, Dosing Weight 99.574, kg, Prio rity: NOW, Start date: 08/04/15 20:48:00, Duration: 30 day, Stop date: 09/03/15 9:00:00 Notes: Give with food. (Same As: Coreg) Start Date: 08/04/15 Stop Date: 08/18/15 Status: Discontinued Coumadin 7.5 mg, 1 tab, Route: PO, Drug form: TAB, Q5PM, Dosing Weight 99.574, kg, Start date: 08/02/15 17:00:00, Duration: 1 doses or times, Stop date: 08/02/15 17:00:0 0 Notes: Nurse to ensure documentation of patient education per anticoagulation po licy.Avoid large intake of vitamin-K containing foods diet.WASTE: F/P - P Waste Black; E - P Waste Black(Same As: Coumadin) Start Date: 08/02/15 Stop Date: 08/02/15 Status: Completed Coumadin 7.5 mg, 1 tab, Route: PO, Drug form: TAB, Q5PM, Dosing Weight 99.574, kg, Start date: 08/03/15 17:00:00, Duration: 1 doses or times, Stop date: 08/03/15 17:00:0 0 Notes: Nurse to ensure documentation of patient education per anticoagulation po licy.Avoid large intake of vitamin-K containing foods diet.WASTE: F/P - P Waste Black; E - P Waste Black(Same As: Coumadin) Start Date: 08/03/15 Stop Date: 08/03/15 Status: Completed Coumadin 10 mg, 1 tab, Route: PO, Drug form: TAB, Q5PM, Dosing Weight 99.574, kg, Start d ate: 08/05/15 17:00:00, Duration: 1 doses or times, Stop date: 08/05/15 17:00:00 Notes: Nurse to ensure documentation of patient education per anticoagulation po licy.Avoid large intake of vitamin-K containing foods diet.(Same As: Coumadin)WA KATARINA: F/P - P Waste Black; E - P Waste Black Start Date: 08/05/15 Stop Date: 08/05/15 Status: Completed Coumadin 7.5 mg, 1 tab, Route: PO, Drug form: TAB, Q5PM, Start date: 08/01/15 17:00:00, D uration: 1 day, Stop date: 08/01/15 17:00:00 Notes: Nurse to ensure documentation of patient education per anticoagulation po licy.Avoid large intake of vitamin-K containing foods diet.WASTE: F/P - P Waste Black; E - P Waste Black(Same As: Coumadin) Start Date: 08/01/15 Stop Date: 08/01/15 Status: Completed Coumadin 5 mg, 1 tab, Route: PO, Drug form: TAB, Q5PM, Dosing Weight 99.574, kg, Start da te: 08/06/15 17:00:00, Duration: 1 doses or times, Stop date: 08/06/15 17:00:00 Notes: Nurse to ensure documentation of patient education per anticoagulation po licy.Avoid large intake of vitamin-K containing foods diet.WASTE: F/P - P Waste Black; E - P Waste Black(Same As: Coumadin) Start Date: 08/06/15 Stop Date: 08/06/15 Status: Completed Coumadin 7.5 mg, 1 tab, Route: PO, Drug form: TAB, Q5PM, Dosing Weight 99.574, kg, Start date: 08/07/15 17:00:00, Duration: 1 doses or times, Stop date: 08/07/15 17:00:0 0 Notes: Nurse to ensure documentation of patient education per anticoagulation po licy.Avoid large intake of vitamin-K containing foods diet.WASTE: F/P - P Waste Black; E - P Waste Black(Same As: Coumadin) Start Date: 08/07/15 Stop Date: 08/07/15 Status: Completed Coumadin 7.5 mg, 1 tab, Route: PO, Drug form: TAB, Q5PM, Dosing Weight 99.574, kg, Start date: 08/08/15 17:00:00, Duration: 1 doses or times, Stop date: 08/08/15 17:00:0 0 Notes: Nurse to ensure documentation of patient education per anticoagulation po licy.Avoid large intake of vitamin-K containing foods diet.WASTE: F/P - P Waste Black; E - P Waste Black(Same As: Coumadin) Start Date: 08/08/15 Stop Date: 08/08/15 Status: Completed Dulcolax Laxative 10 mg, 1 supp, Route: UT, Drug form: SUPP, ONCE, Dosing Weight 99.574, kg, Prior ity: NOW, Start date: 08/13/15 14:29:00 CDT, Stop date: 08/13/15 14:29:00 CDT Notes: (Same As: Dulcolax, Bisco-Lax) Start Date: 08/13/15 Stop Date: 08/13/15 Status: Completed Flonase 0.05 mg/inh nasal spray 100 microgram=2 spray, Each Affected Nostril, Daily, 0 Refill(s) Start Date: 08/17/15 Status: Ordered Flonase 0.05 mg/inh nasal spray 2 spray, Route: Each Affected Nostril, Drug Form: SPRY, Dosing Weight 99.574, kg , Daily, NOW, Start date: 08/02/15 18:04:00, Stop date: 09/01/15 9:00:00 Notes: (Same as: Flonase) Start Date: 08/02/15 Stop Date: 08/18/15 Status: Discontinued folic acid 1 mg, 1 tab, Route: PO, Drug form: TAB, Daily, Dosing Weight 99.574, kg, Start d ate: 07/21/15 9:00:00, Duration: 30 day, Stop date: 09/18/15 9:00:00 Notes: (Same as: Folvite) Start Date: 07/21/15 Stop Date: 08/18/15 Status: Discontinued folic acid 1 mg oral tablet 1 mg=1 tab, PO, Daily, 0 Refill(s) Start Date: 08/17/15 Status: Ordered Heparin 40 unit/kg Bolus (Heparin Dosing Weight) Route: IVP, PRN, 3,500 unit, 3.5 mL, Drug form: INJ, PRN, Heparin Protocol, Star t date: 07/21/15 3:49:00 Stop date: 08/20/15 3:48:00, 30 day Start Date: 07/21/15 Stop Date: 08/06/15 Status: Discontinued Heparin 80 unit/kg Bolus (Heparin Dosing Weight) Route: IVP, PRN, 6,900 unit, 6.9 mL, Drug form: INJ, PRN, Heparin Protocol, Star t date: 07/21/15 3:49:00 Stop date: 08/20/15 3:48:00, 30 day Start Date: 07/21/15 Stop Date: 08/06/15 Status: Discontinued heparin additive 25,000 unit [18 unit/kg/hr] + Premix Diluent Dextrose 5% 500 mL 500 mL, Rate: 31.1 ml/hr, Infuse over: 16.1 hr, Route: IV, Dosing Weight 86.39 k g, Total Volume: 500 mL, Start date: 07/21/15 3:49:00, Duration: 30 day, Stop da te: 08/20/15 3:48:00 Start Date: 07/21/15 Stop Date: 08/07/15 Status: Discontinued hydrocortisone topical 2.5% cream 1 appl, TOP, BID, PRN Itching, 0 Refill(s) Start Date: 08/17/15 Status: Ordered hydrocortisone topical 2.5% cream 1 appl, Route: TOP, BID, Drug form: CRM, PRN Itching, Start date: 07/26/15 14:53 :00, Duration: 30 day, Stop date: 08/25/15 14:52:00 Start Date: 07/26/15 Stop Date: 08/18/15 Status: Discontinued Hydrocortisone-Aloe 0.5% topical cream 1 appl, TOP, BID, # 30 gm, 0 Refill(s) Start Date: 07/21/15 Stop Date: 08/12/15 Status: Discontinued Hydrocortisone-Aloe 0.5% topical cream 1 appl, Route: TOP, BID, Drug form: CRM, Start date: 07/21/15 9:00:00, Duration: 30 day, Stop date: 08/19/15 17:00:00 Start Date: 07/21/15 Stop Date: 07/26/15 Status: Discontinued K-Dur 20 40 mEq, 2 tab, Route: PO, Drug form: ERTAB, ONCE, Start date: 08/03/15 14:00:00, Stop date: 08/03/15 14:00:00 Notes: (Same as: K-Dur 20)"Do Not Crush" With food and full glass of water Start Date: 08/03/15 Stop Date: 08/03/15 Status: Completed ketoconazole topical 2% shampoo 1 appl, Route: TOP, QWed, Drug form: SHMP, Start date: 07/26/15 14:50:00, Durati on: 30 day, Stop date: 08/23/15 15:00:00 Notes: Non-Formulary Drug (Same as:Nizoral Topical) Start Date: 07/26/15 Stop Date: 08/18/15 Status: Discontinued ketoconazole topical 2% shampoo 1 appl, Route: SHAMPOO, QSat, Drug form: SHMP, Start date: 07/29/15 9:00:00, Dur ation: 30 day, Stop date: 08/26/15 9:00:00 Notes: Non-Formulary Drug (Same as:Nizoral Topical) Start Date: 07/29/15 Stop Date: 08/18/15 Status: Discontinued lactulose 20 gm, 30 ml, Route: PO, Drug Form: SYRP, Dosing Weight 99.574, kg, ONCE, PRN Co nstipation, Start date: 07/31/15 9:55:00, Stop date: 08/30/15 9:54:00 Notes: (Same as:Chronulac) Start Date: 07/31/15 Stop Date: 07/31/15 Status: Completed lidocaine 1% 100 mg, 10 mL, Route: IV, Drug Form: INJ, Dosing Weight 99.574, kg, ONCE, Start date: 07/30/15 20:34:00, Stop date: 07/30/15 20:34:00 Notes: (Same as: Xylocaine) Start Date: 07/30/15 Stop Date: 07/30/15 Status: Completed lidocaine 2% injectable solution 200 mg, 10 mL, Route: SUB-Q, Drug Form: INJ, Dosing Weight 99.574, kg, ONCE, Sta rt date: 07/30/15 18:53:00, Stop date: 07/30/15 18:53:00 Notes: Syringe (Same as: Xylocaine) Start Date: 07/30/15 Stop Date: 07/30/15 Status: Discontinued Lidoderm 5% topical film (patch) 1 patch, TOP, Q24H, Remove after 12 hours, 0 Refill(s) Start Date: 08/17/15 Status: Ordered Lidoderm 5% topical film (patch) 1 patch, Route: TOP, Q24H, Drug form: FILM, Priority: Now, Start date: 08/13/15 13:00:00 CDT, Duration: 30 day, Stop date: 09/11/15 13:00:00 CDT, Remove after 1 2 hours Notes: Apply only once for up to 12 hours in [id number] period (12 hours on and 12 hours off).(Same as: Lidoderm)"Remove old patch before application of new patch" Start Date: 08/13/15 Stop Date: 08/18/15 Status: Discontinued magnesium sulfate 2 gm in Water 50 ml 2 gm, 50 mL, Route: IVPB, Drug form: INJ, ONCE, Dosing Weight 99.574, kg, Start date: 07/30/15 15:19:00, Duration: 2 hr, Stop date: 07/30/15 15:19:00 Notes: WASTE: F/P - Sink; E - Municipal Trash Bin Start Date: 07/30/15 Stop Date: 07/30/15 Status: Completed magnesium sulfate 2gm / NS 50ml (premixed) 2 gm, 50 mL, Route: IVPB, Drug form: INJ, ONCE, Dosing Weight 99.574, kg, Start date: 07/29/15 10:51:00, Duration: 2 hr, Stop date: 07/29/15 10:51:00 Notes: WASTE: F/P - Sink; E - Municipal Trash Bin Start Date: 07/29/15 Stop Date: 07/29/15 Status: Completed methocarbamol 500 mg, 1 tab, Route: PO, Drug form: TAB, QID, Dosing Weight 99.574, kg, PRN Mus shelli Spasms, Start date: 08/15/15 22:54:00 CDT, Duration: 30 day, Stop date: 09/02 06/20 22:53:00 CDT Notes: (Same as:Robaxin) Start Date: 08/15/15 Stop Date: 08/18/15 Status: Discontinued methocarbamol 500 mg oral tablet 500 mg=1 tab, PO, QID, PRN Muscle Spasms, per RN Sonny at [facility] [place] MD brian did not approve robaxin and not taking, 0 Refill(s) Start Date: 08/17/15 Stop Date: 08/18/15 Status: Completed MiraLax 17 gm, 1 pkt, Route: PO, Drug form: PWDR, BID, Dosing Weight 99.574, kg, Priorit y: NOW, Start date: 08/13/15 14:34:00 CDT, Duration: 30 day, Stop date: 09/12/15 9:00:00 CDT Notes: Dissolve in 8 oz of water or juice.(Same as: Miralax) Start Date: 08/13/15 Stop Date: 08/18/15 Status: Discontinued mirtazapine 30 mg, 1 tab, Route: PO, Drug form: TAB, Bedtime, Dosing Weight 99.574, kg, Star t date: 07/21/15 21:00:00, Duration: 30 day, Stop date: 09/18/15 21:00:00 Notes: (Same as:Remeron) Start Date: 07/21/15 Stop Date: 08/18/15 Status: Discontinued mirtazapine 15 mg oral tablet 15 mg=1 tab, PO, Bedtime, # 30 tab, 0 Refill(s) Start Date: 07/21/15 Stop Date: 08/12/15 Status: Discontinued mirtazapine 15 mg oral tablet 15 mg=1 tab, PO, Bedtime, # 30 tab, 0 Refill(s) Start Date: 08/12/15 Stop Date: 08/17/15 Status: Discontinued mirtazapine 30 mg oral tablet 30 mg=1 tab, PO, Bedtime, 0 Refill(s) Start Date: 08/17/15 Status: Ordered naproxen sodium 550 mg, Route: PO, Drug form: TAB, BID, Dosing Weight 99.574, kg, PRN Pain Score 1-3, Start date: 08/07/15 12:27:00, Duration: 30 day, Stop date: 09/06/15 12:26 :00 Start Date: 08/07/15 Stop Date: 08/07/15 Status: Discontinued nicotine 21 mg/24 hr transdermal film, extended release =1 patch, Transdermal, Daily, 0 Refill(s) Start Date: 07/21/15 Stop Date: 08/12/15 Status: Discontinued nitroglycerin 0.4 mg sublingual tablet 0.4 mg=1 tab, SL, Q5Min, PRN Chest Pain, Give up to 3 doses. Call 911 if pain pe rsists., # 25 tab, 3 Refill(s) Start Date: 07/21/15 Stop Date: 08/12/15 Status: Discontinued nitroglycerin 0.4 mg sublingual tablet 0.4 mg, 1 tab, Route: SL, Drug form: TAB, Q5Min, Dosing Weight 99.574, kg, PRN C hest Pain, Start date: 07/21/15 3:33:00 CDT, Duration: 30 day, Stop date: 3:32:00 CDT Notes: (Same as:Nitroquick, Nitrostat)"Do Not Crush" Sublingual tablet Start Date: 07/21/15 Stop Date: 08/18/15 Status: Discontinued nitroglycerin 0.4 mg sublingual tablet 0.4 mg=1 tab, SL, Q5Min, PRN Chest Pain, Give up to 3 doses. Call 911 if pain pe rsists., # 100 tab, 0 Refill(s) Start Date: 08/12/15 Status: Ordered Mandan 5/325 oral tablet 1 tab, Route: PO, Drug Form: TAB, Dosing Weight 99.574, kg, Q4H, PRN Pain Score 1-3, Start date: 08/07/15 10:36:00, Duration: 30 day, Stop date: 09/06/15 10:35: 00 Notes: (Same as: Mandan 325/5) Do not exceed 4gm/day of acetaminophen. Start Date: 08/07/15 Stop Date: 08/07/15 Status: Discontinued normal saline 0.9% IV 1,000 mL 1,000 mL, Rate: 50 ml/hr, Infuse over: 20 hr, Route: IVPB, Dosing Weight 99.574 kg, Total Volume: 1,000, Start date: 07/27/15 22:04:00, Duration: 30 day, Stop d ate: 08/26/15 22:03:00 Start Date: 07/27/15 Stop Date: 07/31/15 Status: Discontinued oxyCODONE 5 mg immediate release 5 mg, 1 tab, Route: PO, Drug form: TAB, Q6H, Dosing Weight 99.574, kg, PRN Pain Score 7-10, Start date: 08/08/15 18:10:00 CDT, Duration: 30 day, Stop date: 09/17 18:09:00 CDT Notes: (Same as: Roxicodone) Start Date: 08/08/15 Stop Date: 08/18/15 Status: Discontinued polyethylene glycol 3350 17 gm, PO, BID, 0 Refill(s) Start Date: 08/17/15 Status: Ordered predniSONE 10 mg, 1 tab, Route: PO, Drug form: TAB, Daily, Dosing Weight 99.574, kg, Start date: 08/04/15 9:00:00 CDT, Stop date: 09/02/15 9:00:00 CDT Notes: (Same as: PredniSONE) Take with food. Start Date: 08/04/15 Stop Date: 08/18/15 Status: Discontinued predniSONE 60 mg, 3 tab, Route: PO, Drug form: TAB, Daily, Dosing Weight 99.574, kg, Priori ty: STAT, Start date: 07/30/15 18:45:00, Duration: 30 day, Stop date: 08/29/15 9 :00:00 Notes: Take with food. Start Date: 07/30/15 Stop Date: 08/03/15 Status: Discontinued predniSONE 10 mg oral tablet 20 mg=2 tab, PO, Daily, for 3 days then 1 tab daily for 3 days then 0.5 tab for 4 days., # 11 tab, 0 Refill(s) Start Date: 08/12/15 Stop Date: 08/12/15 Status: Completed predniSONE 10 mg oral tablet See Instructions, Take 1 tab (10mg) PO daily for 2 days and then take 1/2 tab (5 mg) PO daily for 3 days and stop. Take w/ food., # 1 tab, 0 Refill(s), other Start Date: 08/17/15 Stop Date: 08/23/15 Status: Ordered Pulmicort Respules 0.5 mg/2 mL inhalation suspension 0.5 mg, 2 mL, Route: NEB, Drug form: SUSP, BID, Dosing Weight 99.574, kg, Priori ty: NOW, Start date: 08/02/15 17:58:00, Duration: 30 day, Stop date: 09/01/15 17 :00:00 Notes: (Same As: Pulmicort) Start Date: 08/02/15 Stop Date: 08/18/15 Status: Discontinued Remeron 30 mg, 2 tab, Route: PO, Drug form: TAB, Bedtime, Dosing Weight 99.574, kg, Star t date: 07/21/15 21:00:00, Duration: 30 day, Stop date: 08/19/15 21:00:00 Notes: (Same as:Remeron) Start Date: 07/21/15 Stop Date: 07/21/15 Status: Canceled remove patch 1 patch, Route: TOP, Bedtime, Drug form: ERFILM, Start date: 08/14/15 1:00:00 CD T, Duration: 30 day, Stop date: 09/12/15 1:00:00 CDT Notes: Remove patch 12 hours after application each day. Start Date: 08/14/15 Stop Date: 08/18/15 Status: Discontinued Spiriva 18 mcg inhalation capsule 18 microgram, 1 inhalation, Route: INHALATION, Drug form: CAP, Daily, Dosing [place] ght 99.574, kg, Start date: 07/26/15 9:00:00, Duration: 30 day, Stop date: 08/23 9:00:00 Notes: (Same As: Spiriva) Start Date: 07/26/15 Stop Date: 08/02/15 Status: Discontinued thiamine 100 mg, 1 tab, Route: PO, Drug form: TAB, Daily, Dosing Weight 99.574, kg, Start date: 07/21/15 9:00:00, Duration: 30 day, Stop date: 09/18/15 9:00:00 Notes: (Same As: Vitamin B1) Start Date: 07/21/15 Stop Date: 08/18/15 Status: Discontinued thiamine 100 mg oral tablet 100 mg=1 tab, PO, Daily, 0 Refill(s) Start Date: 08/17/15 Status: Ordered tramadol 50 mg oral tablet 50 mg=1 tab, PO, Q6H, PRN Pain, PRN for pain q 6 hrs, 0 Refill(s) Start Date: 07/21/15 Stop Date: 08/12/15 Status: Discontinued tramadol 50 mg oral tablet 50 mg, 1 tab, Route: PO, Drug form: TAB, Q6H, Dosing Weight 99.574, kg, PRN Pain Score 6-10, Start date: 07/21/15 3:33:00, Duration: 30 day, Stop date: 08/20/15 3:32:00 Notes: Not to exceed 400mg/day. (Same As: Ultram) Start Date: 07/21/15 Stop Date: 08/07/15 Status: Discontinued tramadol 50 mg oral tablet 50 mg=1 tab, PO, Q6H, PRN Pain, PRN for pain q 6 hrs, # 30 tab, 0 Refill(s) Start Date: 08/12/15 Stop Date: 08/12/15 Status: Completed trazodone 25 mg, 0.5 tab, Route: PO, Drug form: TAB, ONCE, Dosing Weight 99.574, kg, PRN S leep, Start date: 07/31/15 21:49:00, Stop date: 07/31/15 21:49:00 Notes: (Same As: Viktoria) Start Date: 07/31/15 Stop Date: 07/31/15 Status: Deleted trazodone 50 mg oral tablet 25 mg, 0.5 tab, Route: PO, Drug form: TAB, ONCE, Dosing Weight 99.574, kg, Start date: 07/31/15 23:00:00, Stop date: 07/31/15 23:00:00 Notes: (Same As: Viktoria) Start Date: 07/31/15 Stop Date: 07/31/15 Status: Completed Tums 500 mg, 1 tab, Route: CHEW, Drug form: CHEWTAB, TID, Dosing Weight 99.574, kg, P RN Indigestion, Start date: 08/08/15 18:07:00, Duration: 30 day, Stop date: 09/17 18:06:00 Notes: (Same As: Tums)Calcium Carbonate 500 jn=875 mg elemental calcium Dose=_ mg calcium carbonate ( mg elemental calcium) Start Date: 08/08/15 Stop Date: 08/18/15 Status: Discontinued Tylenol 1,000 mg, 2 tab, Route: PO, Drug form: TAB, Q6H, Dosing Weight 99.574, kg, Start date: 08/07/15 18:00:00, Duration: 30 day, Stop date: 09/06/15 12:00:00 Notes: Max acetaminophen 4000 mg/day (4 gm/day). (Same as: Tylenol Extra Streng th) Start Date: 08/07/15 Stop Date: 08/18/15 Status: Discontinued Tylenol PO, Q6H, PRN Pain Score 1-5, 0 Refill(s) Start Date: 07/21/15 Stop Date: 08/12/15 Status: Discontinued Tylenol 650 mg, 2 tab, Route: PO, Drug form: TAB, ONCE, Dosing Weight 99.574, kg, Start date: 07/30/15 1:27:00, Stop date: 07/30/15 1:27:00 Notes: Do not exceed 4 gm/day. (Same as: Tylenol) Start Date: 07/30/15 Stop Date: 07/30/15 Status: Completed Ultram 50 mg oral tablet 50 mg=1 tab, PO, Q4H, PRN Pain Score 4-6, 0 Refill(s) Start Date: 08/17/15 Stop Date: 08/17/15 Status: Discontinued Ultram 50 mg oral tablet 50 mg=1 tab, PO, Q6H, PRN Pain Score 6-10, # 1 tab, 0 Refill(s), other Start Date: 08/17/15 Stop Date: 09/02/15 Status: Ordered Ultram 50 mg oral tablet 50 mg, 1 tab, Route: PO, Drug form: TAB, Q4H, Dosing Weight 99.574, kg, PRN Pain Score 4-6, Start date: 08/07/15 12:36:00, Duration: 30 day, Stop date: 09/06/15 12:35:00 Notes: Not to exceed 400mg/day. (Same As: Ultram) Start Date: 08/07/15 Stop Date: 08/18/15 Status: Discontinued warfarin 7.5 mg, 1 tab, Route: PO, Drug form: TAB, Q5PM, Dosing Weight 99.574, kg, Start date: 08/17/15 17:00:00 CDT, Duration: 1 doses or times, Stop date: 08/17/15 17: 00:00 CDT Notes: Nurse to ensure documentation of patient education per anticoagulation po licy.Avoid large intake of vitamin-K containing foods diet.WASTE: F/P - P Waste Black; E - P Waste Black(Same As: Coumadin) Start Date: 08/17/15 Stop Date: 08/17/15 Status: Completed warfarin 10 mg, 1 tab, Route: PO, Drug form: TAB, Q5PM, Dosing Weight 99.574, kg, Start d ate: 08/04/15 17:00:00, Duration: 1 doses or times, Stop date: 08/04/15 17:00:00 Notes: Nurse to ensure documentation of patient education per anticoagulation po licy.Avoid large intake of vitamin-K containing foods diet.(Same As: Coumadin)WA KATARINA: F/P - P Waste Black; E - P Waste Black Start Date: 08/04/15 Stop Date: 08/04/15 Status: Completed warfarin 6 mg, 1 tab, Route: PO, Drug form: TAB, Q5PM, Dosing Weight 99.574, kg, Start da te: 08/15/15 17:00:00 CDT, Duration: 1 doses or times, Stop date: 08/15/15 17:00 :00 CDT Notes: Nurse to ensure documentation of patient education per anticoagulation po licy.Avoid large intake of vitamin-K containing foods diet.WASTE: F/P - P Waste Black; E - P Waste Black(Same As: Coumadin) Start Date: 08/15/15 Stop Date: 08/15/15 Status: Completed warfarin 6 mg, 1 tab, Route: PO, Drug form: TAB, Q5PM, Dosing Weight 99.574, kg, Start da te: 08/12/15 17:00:00, Duration: 1 doses or times, Stop date: 08/12/15 17:00:00 Notes: Nurse to ensure documentation of patient education per anticoagulation po licy.Avoid large intake of vitamin-K containing foods diet.WASTE: F/P - P Waste Black; E - P Waste Black(Same As: Coumadin) Start Date: 08/12/15 Stop Date: 08/12/15 Status: Completed warfarin 6 mg, 1 tab, Route: PO, Drug form: TAB, Q5PM, Dosing Weight 99.574, kg, Start da te: 08/10/15 17:00:00, Duration: 1 doses or times, Stop date: 08/10/15 17:00:00 Notes: Nurse to ensure documentation of patient education per anticoagulation po licy.Avoid large intake of vitamin-K containing foods diet.WASTE: F/P - P Waste Black; E - P Waste Black(Same As: Coumadin) Start Date: 08/10/15 Stop Date: 08/10/15 Status: Completed warfarin 7.5 mg, 1 tab, Route: PO, Drug form: TAB, Q5PM, Dosing Weight 99.574, kg, Start date: 08/16/15 17:00:00 CDT, Duration: 1 doses or times, Stop date: 08/16/15 17: 00:00 CDT Notes: Nurse to ensure documentation of patient education per anticoagulation po licy.Avoid large intake of vitamin-K containing foods diet.WASTE: F/P - P Waste Black; E - P Waste Black(Same As: Coumadin) Start Date: 08/16/15 Stop Date: 08/16/15 Status: Completed warfarin 5 mg, 1 tab, Route: PO, Drug form: TAB, Q5PM, Dosing Weight 99.574, kg, Start da te: 08/13/15 17:00:00 CDT, Duration: 1 doses or times, Stop date: 08/13/15 17:00 :00 CDT Notes: Nurse to ensure documentation of patient education per anticoagulation po licy.Avoid large intake of vitamin-K containing foods diet.WASTE: F/P - P Waste Black; E - P Waste Black(Same As: Coumadin) Start Date: 08/13/15 Stop Date: 08/13/15 Status: Completed warfarin 7.5 mg, 1 tab, Route: PO, Drug form: TAB, ONCE, Dosing Weight 99.574, kg, Priori ty: NOW, Start date: 08/09/15 18:12:00, Stop date: 08/09/15 18:12:00 Notes: Nurse to ensure documentation of patient education per anticoagulation po licy.Avoid large intake of vitamin-K containing foods diet.WASTE: F/P - P Waste Black; E - P Waste Black(Same As: Coumadin) Start Date: 08/09/15 Stop Date: 08/09/15 Status: Completed warfarin 7.5 mg, 1 tab, Route: PO, Drug form: TAB, Q5PM, Dosing Weight 99.574, kg, Start date: 08/11/15 17:00:00, Duration: 1 doses or times, Stop date: 08/11/15 17:00:0 0 Notes: Nurse to ensure documentation of patient education per anticoagulation po licy.Avoid large intake of vitamin-K containing foods diet.WASTE: F/P - P Waste Black; E - P Waste Black(Same As: Coumadin) Start Date: 08/11/15 Stop Date: 08/11/15 Status: Completed warfarin 5 mg, 1 tab, Route: PO, Drug form: TAB, Q5PM, Dosing Weight 99.574, kg, Start da te: 07/31/15 17:00:00, Duration: 1 doses or times, Stop date: 07/31/15 17:00:00 Notes: Nurse to ensure documentation of patient education per anticoagulation po licy.Avoid large intake of vitamin-K containing foods diet.WASTE: F/P - P Waste Black; E - P Waste Black(Same As: Coumadin) Start Date: 07/31/15 Stop Date: 07/31/15 Status: Completed warfarin 5 mg, 1 tab, Route: PO, Drug form: TAB, Q5PM, Dosing Weight 99.574, kg, Start da te: 08/14/15 17:00:00 CDT, Duration: 1 doses or times, Stop date: 08/14/15 17:00 :00 CDT Notes: Nurse to ensure documentation of patient education per anticoagulation po licy.Avoid large intake of vitamin-K containing foods diet.WASTE: F/P - P Waste Black; E - P Waste Black(Same As: Coumadin) Start Date: 08/14/15 Stop Date: 08/14/15 Status: Completed warfarin 5 mg, Route: PO, Q5PM, Dosing Weight 99.574, kg, Start date: 08/01/15 17:00:00, Duration: 1 doses or times, Stop date: 08/01/15 17:00:00 Start Date: 08/01/15 Stop Date: 08/01/15 Status: Deleted warfarin 2.5 mg oral tablet 7.5 mg, PO, QPM, # 1 tab, 0 Refill(s), other Start Date: 08/17/15 Stop Date: 08/20/15 Status: Discontinued warfarin 3 mg oral tablet 6 mg=2 tab, PO, Daily, # 30 tab, 0 Refill(s) Start Date: 08/12/15 Stop Date: 08/17/15 Status: Discontinued Results ELECTROLYTES 1 2 3 Most recent to oldest [Reference Range]: 146 mEq/L *HI* (08/17/15 10:34 AM) 140 mEq/L (08/14/15 2:37 AM) 140 mEq/L (08/10/15 5:29 AM) Sodium Lvl [135-145 mEq/L] 3.7 mEq/L (08/17/15 10:34 AM) 4.2 mEq/L (08/14/15 2:37 AM) 4.2 mEq/L (08/10/15 5:29 AM) Potassium Lvl [3.5-5.1 mEq/L] 115 mEq/L *HI* (08/17/15 10:34 AM) 107 mEq/L (08/14/15 2:37 AM) 106 mEq/L (08/10/15 5:29 AM) Chloride Lvl [95-109 mEq/L] 23 mEq/L *LOW* (08/17/15 10:34 AM) 26 mEq/L (08/14/15 2:37 AM) 28 mEq/L (08/10/15 5:29 AM) CO2 [24-32 mEq/L] 11.7 mEq/L (08/17/15 10:34 AM) 11.2 mEq/L (08/14/15 2:37 AM) 10.2 mEq/L (08/10/15 5:29 AM) AGAP [10.0-20.0 mEq/L] CHEM PANEL 1 2 3 Most recent to oldest [Reference Range]: 0.58 mg/dL (08/17/15 10:34 AM) 0.93 mg/dL (08/14/15 2:37 AM) 0.74 mg/dL (08/10/15 5:29 AM) Creatinine Lvl [0.50-1.40 mg/dL] 112 mL/min/1.73m2 1 *NA* (08/17/15 10:34 AM) 91 mL/min/1.73m2 2 *NA* (08/14/15 2:37 AM) 102 mL/min/1.73m2 3 *NA* (08/10/15 5:29 AM) eGFR 13 mg/dL (08/17/15 10:34 AM) 27 mg/dL *HI* (08/14/15 2:37 AM) 20 mg/dL (08/10/15 5:29 AM) BUN [7-22 mg/dL] 14 (07/21/15 4:01 AM) B/C Ratio [6-25] 78 mg/dL (08/17/15 10:34 AM) 84 mg/dL (08/14/15 2:37 AM) 78 mg/dL (08/10/15 5:29 AM) Glucose Lvl [70-99 mg/dL] 6.2 g/dL *LOW* (07/21/15 4:01 AM) Total Protein [6.4-8.4 g/dL] 2.9 g/dL *LOW* (07/21/15 4:01 AM) Albumin Lvl [3.5-5.0 g/dL] 3.3 g/dL (07/21/15 4:01 AM) Globulin [2.0-4.0 g/dL] 0.9 (07/21/15 4:01 AM) A/G Ratio [0.7-1.6] 7.1 mg/dL *LOW* (08/17/15 10:34 AM) 8.5 mg/dL (08/14/15 2:37 AM) 8.8 mg/dL (08/10/15 5:29 AM) Calcium Lvl [8.5-10.5 mg/dL] 3.7 mg/dL (08/10/15 5:29 AM) 3.9 mg/dL (08/09/15 4:34 AM) 4.1 mg/dL (08/08/15 3:55 AM) Phosphorus [2.5-4.5 mg/dL] 2.2 mg/dL (08/10/15 5:29 AM) 2.1 mg/dL (08/09/15 4:34 AM) 2.2 mg/dL (08/08/15 3:55 AM) Magnesium Lvl [1.8-2.4 mg/dL] 15 unit/L (07/21/15 4:01 AM) ALT [0-65 unit/L] 6 unit/L (07/21/15 4:01 AM) AST [0-37 unit/L] 59 unit/L (07/21/15 4:01 AM) Alk Phos [39-136 unit/L] 0.8 mg/dL (07/21/15 4:01 AM) Bili Total [0.2-1.3 mg/dL] 46 unit/L (07/21/15 4:01 AM) Amylase Lvl [25-115 unit/L] 85 unit/L (07/21/15 4:01 AM) Lipase Lvl [73-393 unit/L] 1.0 mMol/L (07/30/15 1:44 AM) Lactic Acid Lvl [0.5-2.2 mMol/L] 1Result Comment: The eGFR is calculated using [...] be mul tiplied by the estimated BMI. 2Result Comment: The eGFR is calculated using the [...] be mul tiplied by the estimated BMI. 3Result Comment: The eGFR is calculated using the [...] 3 Most recent to oldest [Reference Range]: 36 unit/L (07/21/15 11:28 AM) 32 unit/L (07/21/15 4:01 AM) Total CK [12-191 unit/L] 0.035 ng/mL (07/21/15 11:28 AM) Troponin-T [0.000-0.100 ng/mL] 0.09 ng/mL (07/21/15 11:28 AM) 0.10 ng/mL (07/21/15 4:01 AM) Troponin-I [0.00-0.40 ng/mL] 158 pg/mL *HI* (07/21/15 4:01 AM) BNP [<=100 pg/mL] LIPIDS 1 2 3 Most recent to oldest [Reference Range]: 3.60 *LOW* (07/25/15 5:14 AM) CHD Risk [4.00-7.30] 162 mg/dL (07/25/15 5:14 AM) Chol [<=199 mg/dL] 74 mg/dL (07/25/15 5:14 AM) Trig [<=149 mg/dL] 45 mg/dL *LOW* (07/25/15 5:14 AM) HDL [>=61 mg/dL] 102 mg/dL *HI* (07/25/15 5:14 AM) LDL (Calculated) [<=99 mg/dL] 15 *NA* (07/25/15 5:14 AM) VLDL SPECIAL CHEMISTRY 1 2 3 Most recent to oldest [Reference Range]: 5.4 % (07/21/15 4:01 AM) Hgb A1C [<=5.6 %] HEMATOLOGY 1 2 3 Most recent to oldest [Reference Range]: 8.5 K/CMM (08/17/15 10:34 AM) 12.3 K/CMM *HI* (08/10/15 5:29 AM) 11.1 K/CMM *HI* (08/09/15 4:34 AM) WBC [3.7-10.4 K/CMM] 4.12 M/CMM *LOW* (08/17/15 10:34 AM) 4.82 M/CMM (08/10/15 5:29 AM) 4.83 M/CMM (08/09/15 4:34 AM) RBC [4.70-6.10 M/CMM] 11.8 g/dL *LOW* (08/17/15 10:34 AM) 13.6 g/dL *LOW* (08/10/15 5:29 AM) 13.9 g/dL *LOW* (08/09/15 4:34 AM) Hgb [14.0-18.0 g/dL] 36.5 % *LOW* (08/17/15 10:34 AM) 42.0 % (08/10/15 5:29 AM) 42.6 % (08/09/15 4:34 AM) Hct [42.0-54.0 %] 88.6 fL (08/17/15 10:34 AM) 87.2 fL (08/10/15 5:29 AM) 88.1 fL (08/09/15 4:34 AM) MCV [80.0-94.0 fL] 28.8 pg (08/17/15 10:34 AM) 28.3 pg (08/10/15 5:29 AM) 28.7 pg (08/09/15 4:34 AM) MCH [27.0-31.0 pg] 32.5 g/dL (08/17/15 10:34 AM) 32.4 g/dL (08/10/15 5:29 AM) 32.6 g/dL (08/09/15 4:34 AM) MCHC [32.0-36.0 g/dL] 15.4 % *HI* (08/17/15 10:34 AM) 15.3 % *HI* (08/10/15 5:29 AM) 15.4 % *HI* (08/09/15 4:34 AM) RDW [11.5-14.5 %] 149 K/CMM (08/17/15 10:34 AM) 227 K/CMM (08/10/15 5:29 AM) 205 K/CMM (08/09/15 4:34 AM) Platelet [133-450 K/CMM] 7.2 fL *LOW* (08/17/15 10:34 AM) 7.2 fL *LOW* (08/10/15 5:29 AM) 7.4 fL (08/09/15 4:34 AM) MPV [7.4-10.4 fL] 68.6 % (08/17/15 10:34 AM) 67.0 % (08/10/15 5:29 AM) 65.0 % (08/09/15 4:34 AM) Segs [45.0-75.0 %] 1.0 % (08/10/15 5:29 AM) 4.0 % (08/09/15 4:34 AM) 1.0 % (08/06/15 3:33 AM) Bands [0.0-11.0 %] 23.4 % (08/17/15 10:34 AM) 24.0 % (08/10/15 5:29 AM) 24.0 % (08/09/15 4:34 AM) Lymphocytes [20.0-40.0 %] 0.0 % (08/10/15 5:29 AM) 1.0 % *HI* (08/09/15 4:34 AM) 0.0 % (08/06/15 3:33 AM) Atypical Lymphs [<=0.0 %] 7.1 % (08/17/15 10:34 AM) 6.0 % (08/10/15 5:29 AM) 4.0 % (08/09/15 4:34 AM) Monocytes [2.0-12.0 %] 0.5 % (08/17/15 10:34 AM) 1.2 % (08/08/15 3:55 AM) 0.4 % (08/07/15 2:31 AM) Eosinophils [0.0-4.0 %] 0.4 % (08/17/15 10:34 AM) 0.5 % (08/08/15 3:55 AM) 0.7 % (08/07/15 2:31 AM) Basophils [0.0-1.0 %] 1.0 % (08/10/15 5:29 AM) 1.0 % (08/09/15 4:34 AM) Metamyelocytes [0.0-1.0 %] 1.0 % *HI* (08/10/15 5:29 AM) 1.0 % *HI* (08/09/15 4:34 AM) Myelocytes [<=0.0 %] 5.8 K/CMM (08/17/15 10:34 AM) 8.4 K/CMM *HI* (08/10/15 5:29 AM) 7.7 K/CMM (08/09/15 4:34 AM) Segs-Bands # [1.5-8.1 K/CMM] 2.0 K/CMM (08/17/15 10:34 AM) 3.0 K/CMM (08/10/15 5:29 AM) 2.8 K/CMM (08/09/15 4:34 AM) Lymphocytes # [1.0-5.5 K/CMM] 0.6 K/CMM (08/17/15 10:34 AM) 0.7 K/CMM (08/10/15 5:29 AM) 0.4 K/CMM (08/09/15 4:34 AM) Monocytes # [0.0-0.8 K/CMM] 0.2 K/CMM (08/08/15 3:55 AM) 0.1 K/CMM (07/28/15 1:24 AM) 0.1 K/CMM (07/27/15 4:30 AM) Eosinophils # [0.0-0.5 K/CMM] 0.1 K/CMM (08/08/15 3:55 AM) 0.1 K/CMM (08/07/15 2:31 AM) 0.2 K/CMM (07/31/15 10:41 AM) Basophils # [0.0-0.2 K/CMM] Normal (08/10/15 5:29 AM) Normal (08/09/15 4:34 AM) Normal (08/08/15 3:55 AM) RBC Morph 1+ *ABN* (07/31/15 10:41 AM) Anisocyte [None Seen] See Note 1 (08/06/15 3:33 AM) Toxic Gran [None Seen] slight *NA* (08/05/15 12:43 AM) Toxic Gran Normal (08/10/15 5:29 AM) Normal (08/09/15 4:34 AM) Normal (08/08/15 3:55 AM) Plt Morph 23.8 seconds *HI* (08/17/15 2:51 AM) 21.6 seconds *HI* (08/16/15 3:16 AM) 25.1 seconds *HI* (08/15/15 4:27 AM) PT [12.0-14.7 seconds] 2.09 *HI* (08/17/15 2:51 AM) 1.84 *HI* (08/16/15 3:16 AM) 2.24 *HI* (08/15/15 4:27 AM) INR [0.85-1.17] 206 seconds *NA* (07/28/15 2:40 PM) POC Activated Clotting Time 69.5 seconds *HI* (08/06/15 4:21 AM) 64.0 seconds *HI* (08/05/15 6:24 AM) 68.9 seconds *HI* (08/05/15 12:43 AM) PTT [22.9-35.8 seconds] 1Result Comment: Slight Immunizations No data available for this section Procedures No data available for this section Social History Social History Type Response Alcohol Current, Type Beer. Frequency: Daily. 3 Drinks/Episode average. Started age 18 Years. Previous treatment: None. Alcohol use interferes with work or home: No. Drinks more than intended: Yes. Others hurt by drinking: No. Ready to change: No. Household alcohol concerns: No. Smoking Status Current every day smoker; Exposure to Tobacco Smoke None; Cigarette Smoking Last 365 Days Yes; Reg Smoking Cessation Counseling No Assessment and Plan Extracted from: Title: Clinical Document Author: Arie Chung MD Date: 08/16/15 Acute Care Service Line Progress Note Pager#[phone] Attending: Arie Chung Subjective: complains of back pain. An episode of anxiety last night. Scheduled Meds (16):acetaminophen (Tylenol), albuterol-ipratropium (albuterol- ipratropium 2.5-0.5 mg inhalation solution), aspirin, budesonide (Pulmicort Respules 0.5 mg/2 mL inhalation suspension), carvedilol (Coreg), fluticasone nasal (Flonase 0.05 mg/inh nasal spray), folic acid, ketoconazole topical (ketoconazole topical 2% shampoo), ketoconazole topical (ketoconazole topical 2% shampoo), lidocaine topical (Lidoderm 5% topical film (patch)), mirtazapine, polyethylene glycol 3350 (MiraLax), predniSONE, remove patch, thiamine, warfarin Unscheduled Meds: None PRN Meds (8):albuterol (albuterol 0.083% inhalation solution), calcium carbonate (Tums), hydrocortisone topical (hydrocortisone topical 2.5% cream), methocarbamol, nitroglycerin (nitroglycerin 0.4 mg sublingual tablet), ocular lubricant (Artificial Tears), oxyCODONE (oxyCODONE 5 mg immediate release), tramadol (Ultram 50 mg oral tablet) One Time Meds (3):(Completed) LORazepam (Ativan), (Completed) LORazepam (Ativan), (Completed) clonazePAM Continuous Infusions: None Vitals and Temp: VitalsTmp(F)[id number] 08/15 13:11 96 2.0L/m 08/15 [id number]--- 08/15 03:[id number]--- 08/14 23:44 94--- 08/14 18:[id number]--- 24 Hr Tmax: 98.6F (37.00c) at 08/14 16:16Vital Signs are the last 5 in the past 48 hours. GENERAL: He was awake, alert, lying in bed in no acute distress. HEENT: He does have the rosacea on his face with desquamation, a little bit of flat affect. Pupils equal, round and reactive to light with extraocular muscles intact. Moist mucous membranes with no lesions or thrush. NECK: Supple with no lymphadenopathy, thyromegaly or JVD. LUNGS: Clear to auscultation bilaterally. CARDIOVASCULAR: Regular rate and rhythm, no murmurs, gallops or rubs. In terms of his back, he has no point tenderness, no CVA tenderness. ABDOMEN: Soft, nontender, nondistended with normoactive bowel sounds with no organomegaly noted. EXTREMITIES: No clubbing, cyanosis or edema. There is some crepitus on range of motion on his left knee. NEUROLOGIC: Cranial nerves II-XII intact with 2+ DTRs in biceps and patella. PSYCHIATRIC: Moderately flat affect. Labs (Last four charted values) WBC H 12.3(AUG 09)H 11.1(AUG 08)H 13.5(AUG 07)H 11.2(AUG 06) Hgb L 13.6(AUG 09)L 13.9(AUG 08)14.0(AUG 07)L 13.4(AUG 06) Hct 42.0(AUG 09)42.6(AUG 08)43.5(AUG 05)L 40.9(AUG 06) Plt 227(AUG 09)205(AUG 08)210(AUG 05)182(AUG 06) Na 140(AUG 13)140(AUG 09)138(AUG 06)137(AUG 05) K 4.2(AUG 13)4.2(AUG 09)4.8(AUG 08)4.8(AUG 07) CO2 26(AUG 13)28(AUG 09)26(AUG 08)26(AUG 07) Cl 107(AUG 13)106(AUG 09)104(AUG 06)103(AUG 05) Cr 0.93(AUG 13)0.74(AUG 09)0.85(AUG 08)0.79(AUG 07) BUN H 27(AUG 13)20(AUG 09)19(AUG 08)22(AUG 07) Glucose Random 84(AUG 13)78(AUG 09)78(AUG 08)71(AUG 07) Mg 2.2(AUG 09)2.1(AUG 08)2.2(AUG 07)2.2(AUG 06) Phos 3.7(AUG 09)3.9(AUG 08)4.1(AUG 07)4.2(AUG 06) Ca 8.5(AUG 13)8.8(AUG 09)8.5(AUG 08)9.1(AUG 07) PT H 21.6(AUG 15)H 25.1(AUG 14)H 27.7(AUG 13)H 31.1(AUG 12) INR H 1.84(AUG 15)H 2.24(AUG 14)H 2.55(AUG 13)H 2.96(AUG 12) PTT H 69.5(AUG 05)H 64.0(AUG 04)H 68.9(AUG 04)C 129.5(AUG 03) Troponin 0.09(JUL 20)0.10(JUL 20) Total CK 36(JUL 20)32(JUL 20) ASSESSMENT AND PLAN: Mr. Castañeda is a 59-year-old male with past medical history significant for depression, alcohol abuse and COPD who presented to [facility] with chest pain as an outside hospital transfer for evaluation of anomalous coronary artery which turned out to be not the cause of his chest pain after workup and was found to have PE. 1. Suicidal ideations: does not currently endorse or acknowledge SI but remains at risk. Working on placement. Medically and physically cleared by the primary team for transfer working on identifying a bed. He does currently have a PICC inplace which will be discontinued upon DC. He does require daily INRs and the PICC since it is in place allows the ability to avoid venous stick lab draws daily. The patient will not be discharged with a PICC in place. 2. Chronic obstructive pulmonary disease without evidence of exacerbation: exacerbation has resolved continue current regimen with as needed nebs. 3. Pulmonary embolism: INR 1.86. 7.5mg today. 4. Major depressive disorder now with suicidal ideations: on mirtazapine trying to avoid benzos given his alcohol history. 5. Basal cell carcinoma on the face: will need derm follow up as an outpatient 6. Debility: has chronic knee pain which he would benefit from knee sleeve not available in our formulary currently. 8. Anomalous left coronary artery: no chest pain no issues. outpatient follow up. 9. Hypertension, benign essential, continue his Coreg. 10. DVT prophylaxis, warfarin 12. Disposition: Awaiting transfer to inpatient psychiatric facility. The patient currently has a PICC line which will be discontinued upon discharge. Its current use is for lab draws which would otherwise require daily venous sticks.
--- OUTSIDE RECORDS SUMMARY | 2018-03-23 14:48 | XMS REPORT ---
Author Author [facility] Address Unknown Phone Unavailable Care Team Providers Care Boiler Welder Name Role Phone Unavailable Unavailable Payers Payer Name Policy Type Policy Number Effective Date Expiration Date Problems This patient has no known problems. Allergies, Adverse Reactions, Alerts Allergy Name Allergy Type Status Severity Reaction(s) Onset Date Inactive Date Treating Clinician Comments No Known Allergies DA Active U 2018-03-18 00:00:00 No Known Allergies DA Active U 2018-03-14 00:00:00 No Known Allergies DA Active U 2018-03-09 00:00:00 No Known Allergies DA Active U 2018-02-27 00:00:00 No Known Allergies DA Active U 2018-02-09 00:00:00 No Known Allergies DA Active U 2017-12-18 00:00:00 Medications This patient has no known medications.
--- OUTSIDE RECORDS SUMMARY | 2018-03-23 14:48 | XMS REPORT | Summary of Care ---
Author Author [facility] Organization [facility] Address Unknown Phone Unavailable Encounter ELENA Anglin(MERCEDES) [id number] Date(s): 08/18/15 - 08/23/15 [facility] [address] [place] [address]- [phone] Discharge Disposition: [facility] Attending Physician: Elham Bryson MD Vital Signs 1 2 3 Most recent to oldest [Reference Range]: 182.88 cm (08/18/15 1:11 PM) Height 97.4 DegF (08/23/15 12:14 PM) 97.7 DegF (08/23/15 7:52 AM) 97.3 DegF (08/23/15 4:37 AM) Temperature Oral [96.4-99.1 DegF] 107/53 mmHg (08/23/15 12:14 PM) 130/84 mmHg (08/23/15 7:52 AM) 128/85 mmHg (08/23/15 4:37 AM) Blood Pressure [90-140/60-90 mmHg] 20 BRMIN (08/23/15 12:14 PM) 20 BRMIN (08/23/15 7:52 AM) 20 BRMIN (08/23/15 4:37 AM) Respiratory Rate [14-20 BRMIN] 83 bpm (08/23/15 12:14 PM) 82 bpm (08/23/15 7:52 AM) 83 bpm (08/18/15 12:34 PM) Peripheral Pulse Rate [60-100 bpm] 95 kg (08/18/15 1:11 PM) Weight 28.4 m2 (08/18/15 1:11 PM) Body Mass Index Problem List Condition Effective Dates Status Health Status Informant Anxiety(Confirmed) Active COPD(Confirmed) Active COPD(Confirmed) Active Depressed(Confirmed) Active Hypertension(Confirm Active ed) Major depressive Active disorder(Confirmed) Pacemaker(Confirmed) Active 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(Confirmed) Pulmonary Active embolism(Confirmed) Tobacco Active abuse(Confirmed) Unstable Active angina(Confirmed) Allergies, Adverse Reactions, Alerts Substance Reaction Severity Status NKDA Active Medications acetaminophen 1,000 mg, 2 tab, Route: PO, Drug form: TAB, Q6H, Dosing Weight 95, kg, PRN Pain Score 1-5, Start date: 08/18/15 14:07:00 CDT, Duration: 30 day, Stop date: 09/16 14:06:00 CDT Notes: Max acetaminophen 4000 mg/day (4 gm/day). (Same as: Tylenol Extra Streng th) Start Date: 08/18/15 Stop Date: 08/23/15 Status: Discontinued albuterol 90 mcg/inh inhalation aerosol 2 puff, Route: INHALATION, Drug Form: AERO/A, Dosing Weight 95, kg, RQID, PRN Wh eezing, Start date: 08/18/15 14:08:00 CDT, Duration: 30 day, Stop date: 09/17/15 14:07:00 CDT Start Date: 08/18/15 Stop Date: 08/23/15 Status: Discontinued Artificial Tears 1 drp, Route: Each Affected Eye, QID, Drug form: SOLN, PRN Dry Eyes, Start date: 08/18/15 13:56:00 CDT, Duration: 30 day, Stop date: 09/17/15 13:55:00 CDT Notes: (Same as: Aquasite) Start Date: 08/18/15 Stop Date: 08/23/15 Status: Discontinued aspirin 81 mg, 1 tab, Route: PO, Drug form: ECTAB, Daily, Dosing Weight 95, kg, Start da te: 08/19/15 9:00:00 CDT, Duration: 30 day, Stop date: 09/17/15 9:00:00 CDT Notes: Do not crush or chew.(Same As: Ecotrin) Start Date: 08/19/15 Stop Date: 08/23/15 Status: Discontinued bacitracin/neomycin/polymyxin B ophthalmic ointment 1 appl, Route: BOTH EYES, Q3H, Drug form: OINT, Start date: 08/18/15 23:00:00 CD T, Duration: 30 day, Stop date: 09/17/15 20:00:00 CDT Notes: (bacitracin/neomycin/ polymyxin B 3.5 gm oph OIN) (Same As: Neosporin, T riple Antibiotic) Start Date: 08/18/15 Stop Date: 08/23/15 Status: Discontinued budesonide 1 inhalation, Route: INHALATION, Drug form: PWDR, RBID, Dosing Weight 95, kg, St art date: 08/18/15 20:00:00 CDT, Duration: 30 day, Stop date: 09/17/15 8:00:00 C DT Notes: Same as Pulmicort FlexhalerNon-Formulary Drug Start Date: 08/18/15 Stop Date: 08/18/15 Status: Discontinued calcium carbonate 500 mg (200 mg elemental calcium) oral tablet 500 mg, 1 tab, Route: CHEW, Drug form: CHEWTAB, TID, Dosing Weight 95, kg, PRN I ndigestion, Start date: 08/18/15 14:08:00 CDT, Duration: 30 day, Stop date: 09/02 09/17 14:07:00 CDT Notes: (Same As: Tums)Calcium Carbonate 500 kg=618 mg elemental calcium Dose=_ mg calcium carbonate ( mg elemental calcium) Start Date: 08/18/15 Stop Date: 08/23/15 Status: Discontinued carvedilol 3.125 mg, 1 tab, Route: PO, Drug form: TAB, Q12H, Dosing Weight 95, kg, Start da te: 08/18/15 21:00:00 CDT, Duration: 30 day, Stop date: 09/17/15 9:00:00 CDT Notes: Give with food. (Same As: Coreg) Start Date: 08/18/15 Stop Date: 08/23/15 Status: Discontinued diphenhydrAMINE 25 mg, 0.5 mL, Route: IV, Drug form: INJ, Q6H, Dosing Weight 95, kg, PRN as need ed for itching, Start date: 08/18/15 13:55:00 CDT, Duration: 30 day, Stop date: 09/17/15 13:54:00 CDT Notes: (Same as: Benadryl) Start Date: 08/18/15 Stop Date: 08/23/15 Status: Discontinued Flonase 0.05 mg/inh nasal spray 2 spray, Route: Each Affected Nostril, Drug Form: SPRY, Dosing Weight 95, kg, Da gvoind, Start date: 08/19/15 9:00:00 CDT, Duration: 30 day, Stop date: 09/17/15 9:0 0:00 CDT Notes: (Same as: Flonase) Start Date: 08/19/15 Stop Date: 08/23/15 Status: Discontinued folic acid 1 mg, 1 tab, Route: PO, Drug form: TAB, Daily, Dosing Weight 95, kg, Start date: 08/19/15 9:00:00 CDT, Duration: 30 day, Stop date: 09/17/15 9:00:00 CDT Notes: (Same as: Folvite) Start Date: 08/19/15 Stop Date: 08/23/15 Status: Discontinued hydrocortisone topical 2.5% cream 1 appl, Route: TOP, BID, Drug form: CRM, PRN Itching, Start date: 08/18/15 14:08 :00 CDT, Duration: 30 day, Stop date: 09/17/15 14:07:00 CDT Start Date: 08/18/15 Stop Date: 08/23/15 Status: Discontinued ketoconazole topical 2% shampoo 1 appl, TOP, QWed, 0 Refill(s) Start Date: 08/18/15 Status: Ordered ketoconazole topical 2% shampoo 1 appl, TOP, QSat, 0 Refill(s) Start Date: 08/18/15 Status: Ordered ketoconazole topical 2% shampoo 1 appl, Route: TOP, QWed, Drug form: SHMP, Start date: 08/23/15 9:00:00 CDT, Dur ation: 30 day, Stop date: 09/20/15 9:00:00 CDT Start Date: 08/23/15 Stop Date: 08/18/15 Status: Canceled ketoconazole topical 2% shampoo 1 appl, Route: TOP, QSat, Drug form: SHMP, Start date: 08/19/15 9:00:00 CDT, Dur ation: 30 day, Stop date: 09/16/15 9:00:00 CDT Start Date: 08/19/15 Stop Date: 08/18/15 Status: Canceled Lidoderm 5% topical film (patch) 1 patch, Route: TOP, Q24H, Drug form: FILM, Start date: 08/18/15 15:00:00 CDT, D uration: 30 day, Stop date: 09/16/15 15:00:00 CDT Notes: Apply only once for up to 12 hours in [id number] period (12 hours on and 12 hours off).(Same as: Lidoderm)"Remove old patch before application of new patch" Start Date: 08/18/15 Stop Date: 08/23/15 Status: Discontinued LORazepam 1 mg, 0.5 mL, Route: IV, Drug form: INJ, Q6H, Dosing Weight 95, kg, PRN as neede d for anxiety, Start date: 08/18/15 13:55:00 CDT, Stop date: 09/17/15 13:54:00 C DT Notes: (Same as: Ativan) Start Date: 08/18/15 Stop Date: 08/23/15 Status: Discontinued mirtazapine 30 mg, 2 tab, Route: PO, Drug form: TAB, Bedtime, Dosing Weight 95, kg, Start da te: 08/18/15 21:00:00 CDT, Duration: 30 day, Stop date: 09/16/15 21:00:00 CDT Notes: (Same as:Remeron) Start Date: 08/18/15 Stop Date: 08/23/15 Status: Discontinued nitroglycerin 0.4 mg sublingual tablet 0.4 mg, 1 tab, Route: SL, Drug form: TAB, Q5Min, Dosing Weight 95, kg, PRN Chest Pain, Start date: 08/18/15 14:08:00 CDT, Duration: 30 day, Stop date: 09/17/15 14:07:00 CDT Notes: (Same as:Nitroquick, Nitrostat)"Do Not Crush" Sublingual tablet Start Date: 08/18/15 Stop Date: 08/23/15 Status: Discontinued polyethylene glycol 3350 17 gm, Route: PO, Drug form: PDR/REC, BID, Dosing Weight 95, kg, Start date: 17:00:00 CDT, Duration: 30 day, Stop date: 09/17/15 9:00:00 CDT Notes: (Same as: MiraLax) Start Date: 08/18/15 Stop Date: 08/23/15 Status: Discontinued polymyxin B-trimethoprim ophthalmic solution 1 drp, BOTH EYES, Q3H, X 7 day, # 10 mL, 0 Refill(s) Start Date: 08/18/15 Stop Date: 08/25/15 Status: Completed polymyxin B-trimethoprim ophthalmic solution 1 drp, Route: BOTH EYES, Q3H, Start date: 08/18/15 17:00:00 CDT, Duration: 30 da y, Stop date: 09/17/15 14:00:00 CDT Start Date: 08/18/15 Stop Date: 08/18/15 Status: Discontinued predniSONE 5 mg, 1 tab, Route: PO, Drug form: TAB, Daily, Start date: 08/20/15 9:00:00 CDT, Duration: 3 doses or times, Stop date: 08/22/15 9:00:00 CDT Notes: Take with food. Start Date: 08/20/15 Stop Date: 08/22/15 Status: Completed predniSONE 10 mg, 1 tab, Route: PO, Drug form: TAB, Daily, Start date: 08/18/15 14:27:00 CD T, Duration: 2 doses or times, Stop date: 08/19/15 9:00:00 CDT Notes: (Same as: PredniSONE) Take with food. Start Date: 08/18/15 Stop Date: 08/19/15 Status: Completed predniSONE taper daily Dose: See Instructions, Route: SUB-Q, Drug form: TAB, Sliding Scale, PRN Blood G lucose Results, Start date: 08/18/15 14:08:00 CDT, Duration: 30 day, Stop date: 09/17/15 14:07:00 CDT Start Date: 08/18/15 Stop Date: 08/18/15 Status: Deleted Pulmicort Respules 0.5 mg, 2 mL, Route: NEB, Drug form: SUSP, RBID, Start date: 08/19/15 22:00:00 C DT, Duration: 30 day, Stop date: 09/18/15 20:00:00 CDT Notes: (Same As: Pulmicort) Start Date: 08/19/15 Stop Date: 08/23/15 Status: Discontinued remove patch 1 patch, Route: TOP, Q24H, Drug form: ERFILM, Start date: 08/18/15 15:00:00 CDT, Duration: 30 day, Stop date: 09/16/15 15:00:00 CDT Notes: Remove patch 12 hours after application each day. Start Date: 08/18/15 Stop Date: 08/23/15 Status: Discontinued Saline Flush 0.9% 10 mL, Route: IVP, Drug Form: INJ, Dosing Weight 99.574, kg, PRN, PRN Line Flush , Start date: 08/18/15 8:30:00 CDT, Duration: 30 day, Stop date: 09/17/15 8:29:0 0 CDT Notes: (Same as: BD Posiflush) Start Date: 08/18/15 Stop Date: 08/21/15 Status: Discontinued Sodium Chloride 0.9% IV 25 mL, Route: IV, Start date: 08/18/15 14:03:00 CDT, Duration: 30 day, Stop date : 09/17/15 14:02:00 CDT, PRN Line Flush Start Date: 08/18/15 Stop Date: 08/23/15 Status: Discontinued thiamine 100 mg, 1 tab, Route: PO, Drug form: TAB, Daily, Dosing Weight 95, kg, Start nanda e: 08/19/15 9:00:00 CDT, Duration: 30 day, Stop date: 09/17/15 9:00:00 CDT Notes: (Same As: Vitamin B1) Start Date: 08/19/15 Stop Date: 08/23/15 Status: Discontinued Ultram 50 mg oral tablet 50 mg, 1 tab, Route: PO, Drug form: TAB, Q6H, Dosing Weight 95, kg, PRN Pain Sco re 6-10, Start date: 08/18/15 14:08:00 CDT, Duration: 30 day, Stop date: 6 14:07:00 CDT Notes: Not to exceed 400mg/day. (Same As: Ultram) Start Date: 08/18/15 Stop Date: 08/23/15 Status: Discontinued warfarin 7.5 mg, 1 tab, Route: PO, Drug form: TAB, QPM, Dosing Weight 95, kg, Start date: 08/18/15 17:00:00 CDT, Duration: 30 day, Stop date: 09/16/15 17:00:00 CDT Notes: Nurse to ensure documentation of patient education per anticoagulation po licy.Avoid large intake of vitamin-K containing foods diet.WASTE: F/P - P Waste Black; E - P Waste Black(Same As: Coumadin) Start Date: 08/18/15 Stop Date: 08/20/15 Status: Discontinued Xarelto 15 mg, 1 tab, Route: PO, Drug form: TAB, Q12H, Dosing Weight 95, kg, Start date: 08/20/15 9:00:00 CDT, Duration: 30 day, Stop date: 09/18/15 21:00:00 CDT Notes: (Same as: Xarelto)Administer with food Start Date: 08/20/15 Stop Date: 08/23/15 Status: Discontinued Xarelto Starter Pack 15 mg-20 mg oral tablet 1 tab, PO, BID-Meals, Take 15 mg tablets twice daily with food for 21 days. Begi nning day 22,take one 20 mg tablet daily with food for the remainder of therapy. , X 30 day, # 1 pkt, 0 Refill(s) Start Date: 08/20/15 Stop Date: 09/19/15 Status: Ordered Results ELECTROLYTES 1 2 3 Most recent to oldest [Reference Range]: 143 mEq/L (08/22/15 3:25 AM) 140 mEq/L (08/18/15 9:22 AM) Sodium Lvl [135-145 mEq/L] 4.0 mEq/L (08/22/15 3:25 AM) 4.6 mEq/L (08/18/15 9:22 AM) Potassium Lvl [3.5-5.1 mEq/L] 107 mEq/L (08/22/15 3:25 AM) 107 mEq/L (08/18/15 9:22 AM) Chloride Lvl [95-109 mEq/L] 26 mEq/L (08/22/15 3:25 AM) 23 mEq/L *LOW* (08/18/15 9:22 AM) CO2 [24-32 mEq/L] 14.0 mEq/L (08/22/15 3:25 AM) 14.6 mEq/L (08/18/15 9:22 AM) AGAP [10.0-20.0 mEq/L] CHEM PANEL 1 2 3 Most recent to oldest [Reference Range]: 0.71 mg/dL (08/22/15 3:25 AM) 0.83 mg/dL (08/18/15 9:22 AM) Creatinine Lvl [0.50-1.40 mg/dL] 104 mL/min/1.73m2 1 *NA* (08/22/15 3:25 AM) 97 mL/min/1.73m2 2 *NA* (08/18/15 9:22 AM) eGFR 11 mg/dL (08/22/15 3:25 AM) 21 mg/dL (08/18/15 9:22 AM) BUN [7-22 mg/dL] 25 (08/18/15 9:22 AM) B/C Ratio [6-25] 84 mg/dL (08/22/15 3:25 AM) 85 mg/dL (08/18/15 9:22 AM) Glucose Lvl [70-99 mg/dL] 6.7 g/dL (08/18/15 9:22 AM) Total Protein [6.4-8.4 g/dL] 3.1 g/dL *LOW* (08/18/15 9:22 AM) Albumin Lvl [3.5-5.0 g/dL] 3.6 g/dL (08/18/15 9:22 AM) Globulin [2.0-4.0 g/dL] 0.9 (08/18/15 9:22 AM) A/G Ratio [0.7-1.6] 8.3 mg/dL *LOW* (08/22/15 3:25 AM) 8.7 mg/dL (08/18/15 9:22 AM) Calcium Lvl [8.5-10.5 mg/dL] 36 unit/L (08/18/15 9:22 AM) ALT [0-65 unit/L] 21 unit/L (08/18/15 9:22 AM) AST [0-37 unit/L] 64 unit/L (08/18/15 9:22 AM) Alk Phos [39-136 unit/L] 0.4 mg/dL (08/18/15 9:22 AM) Bili Total [0.2-1.3 mg/dL] 114 unit/L (08/18/15 9:22 AM) Lipase Lvl [73-393 unit/L] 1Result Comment: The eGFR is calculated using [...] 3 Most recent to oldest [Reference Range]: 54 unit/L (08/18/15 11:00 PM) 30 unit/L (08/18/15 3:31 PM) 62 unit/L (08/18/15 9:22 AM) Total CK [12-191 unit/L] 2.0 ng/mL (08/18/15 9:22 AM) CK MB [0.5-3.6 ng/mL] 3.2 *HI* (08/18/15 9:22 AM) CK MB Index [0.0-2.5] <0.02 ng/mL (08/18/15 11:00 PM) <0.02 ng/mL (08/18/15 3:31 PM) <0.02 ng/mL (08/18/15 3:31 PM) Troponin-I [0.00-0.40 ng/mL] HEMATOLOGY 1 2 3 Most recent to oldest [Reference Range]: 6.5 K/CMM (08/22/15 3:25 AM) 13.5 K/CMM *HI* (08/18/15 9:22 AM) WBC [3.7-10.4 K/CMM] 4.51 M/CMM *LOW* (08/22/15 3:25 AM) 4.79 M/CMM (08/18/15 9:22 AM) RBC [4.70-6.10 M/CMM] 12.7 g/dL *LOW* (08/22/15 3:25 AM) 13.7 g/dL *LOW* (08/18/15 9:22 AM) Hgb [14.0-18.0 g/dL] 39.6 % *LOW* (08/22/15 3:25 AM) 42.1 % (08/18/15 9:22 AM) Hct [42.0-54.0 %] 87.9 fL (08/22/15 3:25 AM) 87.9 fL (08/18/15 9:22 AM) MCV [80.0-94.0 fL] 28.2 pg (08/22/15 3:25 AM) 28.5 pg (08/18/15 9:22 AM) MCH [27.0-31.0 pg] 32.1 g/dL (08/22/15 3:25 AM) 32.4 g/dL (08/18/15 9:22 AM) MCHC [32.0-36.0 g/dL] 16.3 % *HI* (08/22/15 3:25 AM) 16.1 % *HI* (08/18/15 9:22 AM) RDW [11.5-14.5 %] 161 K/CMM (08/22/15 3:25 AM) 207 K/CMM 1 (08/18/15 9:22 AM) Platelet [133-450 K/CMM] 8.1 fL (08/22/15 3:25 AM) 7.7 fL (08/18/15 9:22 AM) MPV [7.4-10.4 fL] 59.2 % (08/22/15 3:25 AM) 73.8 % (08/18/15 9:22 AM) Segs [45.0-75.0 %] 29.8 % (08/22/15 3:25 AM) 18.0 % *LOW* (08/18/15 9:22 AM) Lymphocytes [20.0-40.0 %] 9.5 % (08/22/15 3:25 AM) 7.3 % (08/18/15 9:22 AM) Monocytes [2.0-12.0 %] 1.2 % (08/22/15 3:25 AM) 0.5 % (08/18/15 9:22 AM) Eosinophils [0.0-4.0 %] 0.3 % (08/22/15 3:25 AM) 0.4 % (08/18/15 9:22 AM) Basophils [0.0-1.0 %] 3.8 K/CMM (08/22/15 3:25 AM) 10.0 K/CMM *HI* (08/18/15 9:22 AM) Segs-Bands # [1.5-8.1 K/CMM] 1.9 K/CMM (08/22/15 3:25 AM) 2.4 K/CMM (08/18/15 9:22 AM) Lymphocytes # [1.0-5.5 K/CMM] 0.6 K/CMM (08/22/15 3:25 AM) 1.0 K/CMM *HI* (08/18/15 9:22 AM) Monocytes # [0.0-0.8 K/CMM] 0.1 K/CMM (08/22/15 3:25 AM) 0.1 K/CMM (08/18/15 9:22 AM) Eosinophils # [0.0-0.5 K/CMM] 0.0 K/CMM (4/19/16 3:25 AM) 0.1 K/CMM (08/18/15 9:22 AM) Basophils # [0.0-0.2 K/CMM] Normal (08/18/15 9:22 AM) RBC Morph Normal (08/18/15 9:22 AM) Plt Morph 24.6 seconds *HI* (08/18/15 3:31 PM) PT [12.0-14.7 seconds] 2.18 *HI* (08/18/15 3:31 PM) INR [0.85-1.17] 1Result Comment: Reviewed. BACTERIAL - SEROLOGY 1 2 3 Most recent to oldest [Reference Range]: Negative (08/18/15 1:44 PM) MRSA by PCR Immunizations No data available for this section [...] No Assessment and Plan Extracted from: Title: Discharge Summary Author: Jocy Bailon MD Date: 08/23/15 <Discharge Summary> Attending: Elham Bryson MDPhone: Service: Internal Medicine Code status: None Specified=FULL CODE Reason for Admission: CHEST PAIN, BRADYCARDIA, SUICIDAL IDEATION Working DRG: None Documented Isolation: None Documented Consulting Physicians: Humberto Beavers MDOffice: MSO: [id number]: Cardiology Piter Leslie MDOffice: MSO: [id number]: Medicine Jocy Bailon MDOffice: MSO: [id number]: Medicine Elham Bryson MDOffice: MSO: [id number]: Medicine Admission Date: 08/18/2015 Discharge Date: 08/23/2015 Discharge Type: Discharge to [facility]patient [facility] CC: Bradycardia and hypoxia Discharge Dx: 1. Likely false readings 2. CP due to anxiety and panic attacks 3. PE 4. Severe depression with Suicidal ideation 5. Basal cell CA of the nose 6. HTN 7. COPD with acute exacerbation 8. Reactive leukocytosis Hospital Course: Mr. Lowery is a 59yo M with h/o COPD, HTN, depression, recently dx iwth PE, who was sent from [facility] for an episode of bradycardia and hypoxia. Pt has a pacemaker and he was placed in observation for eval. His PPM was interrogated and pt did not have any episodes of bradycardia. This was likely a false reading. He also was not hypoxic. He had just overcome an exacerbation of his COPD and his steroids were being tapered down. He had a cough which is likely chronic and he did not have any fevers, chills. He also had complained of CP and his trop were neg and his EKG was without changes. He was seen and cleared by Cardiology. Pt's anticoagulation was changed from coumadin to Xarelto (for his h/o of recent PE). He was then discharged to a psych hospital for continued treatment of his depression which is severe as he has suicidal thoughts. Discharge Condition: Fair, improved Diet: Heart Healthy Activity: As tolerated Discharge Medications: See Discharge Medication Reconciliation Significant Labs / Imaging: See Care4 Physical Exam: VitalsTmp(F)[id number] 08/22 12:[id number]--- 08/22 09:01 99--- 08/22 07:[id number]--- 08/22 04:[id number]--- 08/21 22:[id number]--- 24 Hr Tmax: 97.7F (36.50c) at 08/22 07:52Vital Signs are the last 5 in the past 48 hours. Gen: NAD, Alert, disheveled CV: Reg, +S1, S2, PMI ND Lungs: CTA B/L with distant BS but good air flow, symm excursion Abd: +BS, soft, NT/ND, no masses Ext: No edema Skin: No rashes or lesions visible Follow-up: F/U with PCP in 1 week after discharge from [facility] I have spent 35 min with the patient and in coordinating discharge. Extracted from: Title: [facility] Cardiology Consult Note Author: Rosemary Vasquez MD Date: 08/18/15 Assessment/Plan Mr. Lowery is a 59-year-old gentleman with history of anomalous left main coronary artery, permanent atrial fibrillation and bradycardia status postSt.Jose'spermanent pacemaker, tobacco and alcohol abuse, anxiety/depression who presented via EMS with complaints of chest pain. 1. Chest pain Anomalous LM coronary artery and non-obstructive CAD per angiography 07/28/2015. He has had 2 sets of Tn negative thus far and has been chest pain free since prior to arrival to ED -No further cardiac evaluation at this time -Continue aspirin -He is not on statin. Patient refuses 2. Reported bradycardia; permanent atrial fibrillation status post [employer] PPM Device interrogated with normal function -Continue warfarin for goal INR 2-3 Thank you for this consult. Patient okay to discharge back to [facility]. He should follow-up with PCP or Documentation Specialist upon discharge.
--- NOTE | 2018-03-23 16:09 | Diagnostic Imaging Report ---
EXAMINATION: CHEST SINGLE (PORTABLE) INDICATION: Chest pain, shortness of breath. COMPARISON: Chest radiograph 01/18/16. FINDINGS: TUBES and LINES: Left sided pacemaker device with leads overlying the expected location of the right atrium and right ventricle. LUNGS: Lungs are well inflated. Mild patchy right basilar opacity, which may represent atelectasis or scarring. There is no evidence of pneumonia or pulmonary edema. PLEURA: No pleural effusion or pneumothorax. Mild biapical pleural-parenchymal opacity. HEART AND MEDIASTINUM: The cardiomediastinal silhouette is unremarkable. BONES AND SOFT TISSUES: No acute osseous lesion. Soft tissues are unremarkable. UPPER ABDOMEN: No free air under the diaphragm. IMPRESSION: No acute radiographic abnormality. Signed by: Dr. Federico Moses MD on 03/23/2018 4:06 PM
[2018-03-23 16:42] LABS: BILIRUBIN,URINE NEGATIVE (NEGATIVE); CLARITY,URINE CLEAR (CLEAR); COLOR,URINE YELLOW (YELLOW); KETONES,URINE NEGATIVE (NEGATIVE); LEUKOCYTE ESTERASE ,URINE NEGATIVE (NEGATIVE); NITRITE,URINE NEGATIVE (NEGATIVE); PROTEIN,URINE DIPSTICK NEGATIVE (NEGATIVE); URINE UROBILINOGEN 0.2 mg/dL (0.2 - 1)
[2018-03-23 17:07] LABS: BACTERIA,URINE RARE /HPF; RBC,URINE 0-5 /HPF (0-5); WBC,URINE (MAN) 0-5 /HPF (0-5)
[2018-03-23] MEDS ORDERED: ONDANSETRON HCL INJ 2 MG/ML VIAL IV ONE (17:21)
[2018-03-23] MEDS ORDERED: MORPHINE SULFATE 2 MG/ML SYR IV ONE (17:21)
[2018-03-23 17:26] LABS: BASOPHILS % 0.2 % (0.0-1.0); EOSINOPHILS % 0.1 % (0.0-6.0); HEMOGLOBIN 13.2 g/dL (14.0-18.0); LYMPHOCYTES # (AUTO) 2.2 (1.0-3.2); LYMPHOCYTES % 13.2 % (18.0-39.1); MEAN CORPUSCULAR HEMOGLOBIN 29.1 pg (28-32); MEAN CORPUSCULAR HGB CONC 31.4 g/dL (31-35); MEAN CORPUSCULAR VOLUME 92.5 fL (81-99); MONOCYTES # (AUTO) 1.2 (0.2-0.8); MONOCYTES % 7.3 % (4.4-11.3); NEUTROPHILS # (AUTO) 12.5 (2.1-6.9); NEUTROPHILS % 76.7 % (38.7-80.0); PLATELET COUNT 258 x10e3/uL (140-360); RED BLOOD COUNT 4.54 x10e6/uL (4.3-5.7); RED CELL DISTRIBUTION WIDTH 13.2 % (11.7-14.4)
[2018-03-23] MEDS: ALBUTEROL/IPRATROPIUM 3 ML NEB NEB SCH (17:28)
[2018-03-23 17:40] LABS: INR 0.84; PROTHROMBIN TIME 12.3 seconds (11.9-14.5)
[2018-03-23 17:42] LABS: PARTIAL THROMBOPLASTIN TIME 19.7 seconds (23.8-35.5)
[2018-03-23 17:49] LABS: ALANINE AMINOTRANSFERASE 33 IU/L (0-55); ALBUMIN 3.4 g/dL (3.5-5.0); ALBUMIN/GLOBULIN RATIO 1.1 (0.8-2.0); ALKALINE PHOSPHATASE 57 IU/L (40-150); ANION GAP 11.9 mmol/L (8-16); BLOOD UREA NITROGEN 14 mg/dL (7-26); BUN/CREATININE RATIO 18 (6-25); CARBON DIOXIDE 30 mmol/L (22-29); CHLORIDE 103 mmol/L (98-107); CREATINE KINASE 34 IU/L (30-200); CREATININE, SERUM 0.79 mg/dL (0.72-1.25); EST GLOMERULAR FILTRATION RATE > 60 ML/MIN (60-); GLUCOSE 87 mg/dL (74-118); MAGNESIUM 2.3 MG/DL (1.3-2.1); POTASSIUM 3.9 mmol/L (3.5-5.1); SODIUM 141 mmol/L (136-145)
[2018-03-23 18:00] LABS: B-TYPE NATRIURETIC PEPTIDE2 58.9 pg/mL (0-100)
--- NOTE | 2018-03-23 18:56 | History and Physical ---
CHIEF COMPLAINT: Chest pain. HISTORY OF PRESENT ILLNESS: Mr. Castañeda is a 62-year-old male. He presented to the emergency room with the complaint of chest pain. He lives in [facility] assisted living. The patient reports that he was recently at [facility] with similar complaints. He denies any complaints of nausea, vomiting, diarrhea. He has COPD. He still smokes. Has been a smoker for 40 years, 1 pack per day. He also has history of coronary artery disease and was advised CABG during last admission. He has an AICD defibrillator. REVIEW OF SYSTEMS: GENERAL: Denies any fever or chills. HEAD: Denies any head trauma. ENT: He denies any earache. CVS: Chest pain. RESPIRATORY: Shortness of breath at baseline. Patient uses home oxygen. GI: Denies any nausea or vomiting. REST OF THE REVIEW OF SYSTEMS: Negative except as in history of present illness. PAST MEDICAL HISTORY: Hypertension, coronary artery disease, pacemaker status. PAST SURGICAL HISTORY: Pacemaker placement. FAMILY AND SOCIAL HISTORY: He smokes. Lives in assisted living at [facility]. 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 PHYSICAL EXAM: VITAL SIGNS: Temperature 97.9, pulse of 70, blood pressure 134/71, respiratory rate of 18. HEENT: Head atraumatic, normocephalic. NECK: Supple. CHEST: Reduced air entry but otherwise no wheezing, no crackles. HEART: S1/S2 audible. ABDOMEN: Soft, nontender, nondistended. EXTREMITIES: No clubbing, cyanosis or edema. NEUROLOGIC: Awake, alert, following commands. Responds to questions appropriately. There are no new labs. Labs are still pending. Underwent chest x-ray, which is not showing any pneumonia. I have reviewed the images. ASSESSMENT: Mr. Castañeda is a 62-year-old male with a history of coronary artery disease, has pacemaker, reports that he was recommended coronary artery bypass graft by the assistant research scientist but he never followed up. CURRENT PROBLEMS: 1. Chest pain. 2. Smoker. 3. Reported history of chronic obstructive pulmonary disease. 4. Hypertension. 5. Pacemaker status. PLAN: 1. Consult Cardiology. 2. Start the nebulizer treatment. 3. Serial cardiac enzymes. 4. Follow the labs and further recommendation after reviewing the labs. Job#: [id number] EV
[2018-03-23] MEDS ORDERED: ONDANSETRON HCL INJ 2 MG/ML VIAL IV PRN (19:30)
[2018-03-23 19:55] LABS: LYMPHOCYTES % (MANUAL) 13 % (19-48); MONOCYTES % (MANUAL) 3 % (3.4-9.0); NEUTROPHILS % (MANUAL) 80 % (40-74); PLATELET ESTIMATE ADEQUATE; PLATELET MORPHOLOGY COMMENT NORMAL; RBC MORPHOLOGY COMMENT NORMAL
[2018-03-23] MEDS: AZITHROMYCIN 500MG/NS 250 ML 250 ML IV SCH (21:43)
[2018-03-23] MEDS: FAMOTIDINE 20 MG/2 ML VIAL IV SCH (21:43)
[2018-03-24] MEDS: MORPHINE SULFATE 2 MG/ML SYR IV PRN ×5 (00:16→22:47)
[2018-03-24] MEDS: ALBUTEROL/IPRATROPIUM 3 ML NEB NEB SCH ×4 (00:18→19:30)
[2018-03-24 06:05] LABS: BASOPHILS # (AUTO) 0.1 (0.0-0.1); BASOPHILS % 0.5 % (0.0-1.0); EOSINOPHILS % 0.2 % (0.0-6.0); HEMATOCRIT 43.9 % (38.2-49.6); HEMOGLOBIN 13.2 g/dL (14.0-18.0); LYMPHOCYTES # (AUTO) 2.4 (1.0-3.2); LYMPHOCYTES % 22.2 % (18.0-39.1); MEAN CORPUSCULAR HGB CONC 30.1 g/dL (31-35); MEAN CORPUSCULAR VOLUME 96.5 fL (81-99); MONOCYTES # (AUTO) 1.3 (0.2-0.8); MONOCYTES % 11.6 % (4.4-11.3); NEUTROPHILS # (AUTO) 6.9 (2.1-6.9); NEUTROPHILS % 63.4 % (38.7-80.0); PLATELET COUNT 191 x10e3/uL (140-360); RED BLOOD COUNT 4.55 x10e6/uL (4.3-5.7); RED CELL DISTRIBUTION WIDTH 13.3 % (11.7-14.4)
[2018-03-24 06:21] LABS: BLOOD UREA NITROGEN 13 mg/dL (7-26); BUN/CREATININE RATIO 17 (6-25); CALCIUM 8.6 mg/dL (8.4-10.2); CARBON DIOXIDE 25 mmol/L (22-29); CHLORIDE 103 mmol/L (98-107); CHOLESTEROL 153 MD/DL (0-199); CREATININE, SERUM 0.78 mg/dL (0.72-1.25); EST GLOMERULAR FILTRATION RATE > 60 ML/MIN (60-); GLUCOSE 76 mg/dL (74-118); HDL CHOLESTEROL 51 MG/DL (40-60); LDL CHOLESTEROL 84 MG/DL (60-130); SODIUM 136 mmol/L (136-145); TRIGLYCERIDES 90 MG/DL (0-149)
[2018-03-24] MEDS: FAMOTIDINE 20 MG/2 ML VIAL IV SCH ×2 (07:40→19:30)
[2018-03-24 07:42] LABS: CREATINE KINASE MB 1.8 ng/mL (0-5.0)
[2018-03-24 08:09] LABS: EOSINOPHILS % (MANUAL) 1 % (0-7); LYMPHOCYTES % (MANUAL) 17 % (19-48); METAMYELOCYTES % (MANUAL) 2 % (0-0); MONOCYTES % (MANUAL) 9 % (3.4-9.0); NEUTROPHILS % (MANUAL) 68 % (40-74); PLATELET ESTIMATE ADEQUATE; PLATELET MORPHOLOGY COMMENT NORMAL
[2018-03-24] MEDS: ASPIRIN 81 MG ENTERIC COATED PO SCH (08:55)
[2018-03-24] MEDS: AZITHROMYCIN 500MG/NS 250 ML 250 ML IV SCH ×2 (08:56→09:37)
--- NOTE | 2018-03-24 12:23 | Diagnostic Imaging Report ---
EXAM: CHEST XRAY LINE PLACEMENT, PA and lateral DATE: 03/24/2018 11:23 AM Time stamp on exam: 11:26 AM INDICATION: PICC placement COMPARISON: 03/23/2018 FINDINGS: LINES/TUBES: Unchanged appearance of a left chest wall dual lead cardiac device. A right-sided PICC has been placed. Tip of this overlies the SVC. LUNGS: No consolidations or edema. Lung bases are obscured due to positioning. PLEURA: Small left pleural effusion. HEART AND MEDIASTINUM: Normal size and contour. BONES AND SOFT TISSUES: No acute findings. IMPRESSION: 1. Status post right PICC placement. 2. Small left pleural effusion. Signed by: Dr. Layton Broussard DO on 03/24/2018 12:19 PM
[2018-03-24] MEDS ORDERED: CELEXA20 MG PO (12:26)
[2018-03-24] MEDS ORDERED: PLAVIX75 MG PO (12:26)
[2018-03-24] MEDS ORDERED: SYMBICORT 16010.2 GM (12:33)
[2018-03-24] MEDS ORDERED: ZYRTEC10 M3 PO (12:33)
[2018-03-24] MEDS ORDERED: MIRTAZAPINE15 MG PO (12:33)
[2018-03-24] MEDS ORDERED: LISINOPRIL2.5 MG PO (12:33)
[2018-03-24] MEDS ORDERED: LOPRESSOR25 MG PO (12:33)
[2018-03-24] MEDS ORDERED: LASIX20 MG PO (12:33)
[2018-03-24] MEDS ORDERED: WARFARIN SODIUM1 MG PO (12:33)
[2018-03-24] MEDS: NITROGLYCERIN 0.4 MG SUBL SL PRN (12:50)
[2018-03-24 13:30] VITALS: BP 104/73
[2018-03-24 14:37] LABS: CREATINE KINASE 23 IU/L (30-200)
[2018-03-24 16:06] VITALS: BP 104/73
[2018-03-24] MEDS ORDERED: ANORO ELLIPTA INH (17:26)
[2018-03-24] MEDS ORDERED: [UNRECOGNIZED DRUG - OTHER] PO (17:26)
[2018-03-24] MEDS ORDERED: TYLENOL # 31 EA PO (17:26)
[2018-03-24] MEDS ORDERED: ROBAFEN PO (17:26)
[2018-03-24] MEDS ORDERED: BENZONATATE200 MG PO (17:26)
[2018-03-24] MEDS: ISOSORBIDE MONONITRATE 30 MG TAB CR PO SCH (18:19)
--- NOTE | 2018-03-24 19:38 | Consultation ---
DATE OF CONSULTATION: March 24, 2018 CARDIOLOGY CONSULTATION HISTORY OF PRESENT ILLNESS: This is a 62-year-old man who has a history of hypertension, coronary artery disease, status post percutaneous coronary intervention, dual lead pacemaker insertion, chronic obstructive pulmonary disease, tobacco use, who presented to the emergency department with chest pain. The patient states that he had chest pressure, felt like somebody was sitting on his chest, associated with some shortness of breath. No other exacerbating or alleviating factors. The patient states that he was admitted to [facility] and was told that he needed bypass surgery; however, was discharged. The patient ruled out for acute OH in the emergency department here, and he is currently seated in bed without any ongoing symptoms. He denies any current chest pain, shortness of breath, palpitations, or near syncope symptoms. REVIEW OF SYSTEMS: A 12-point review of systems was conducted, and is negative other than stated above in the HPI. PAST MEDICAL HISTORY: Hypertension, coronary artery disease, pacemaker, tobacco use, chronic obstructive pulmonary disease. PAST SURGICAL HISTORY: Percutaneous coronary intervention, pacemaker insertion. PAST FAMILY HISTORY: No premature coronary artery disease or sudden cardiac . SOCIAL HISTORY: Current smoker. Denies any illicit drug use or alcohol use. ALLERGIES: NO KNOWN DRUG ALLERGIES.. MEDICATIONS: See medication reconciliation form. PHYSICAL EXAMINATION VITAL SIGNS: Temperature 97.4, heart rate 71, respirations 20, blood pressure 104/73, oxygen saturation 97% on 3 liters nasal cannula. GENERAL: He is a well-appearing man seated in bed in no apparent distress. Alert and oriented x3. HEENT: Head is normocephalic, atraumatic. Eyes: Extraocular movements are intact. Conjunctivae clear. NECK: No JVD. No bruits. CARDIOVASCULAR: Regular rate and rhythm. Normal S1 and S2. No murmurs appreciated. LUNGS: Diminished air excursion in expiratory phase. No rales. ABDOMEN: Soft, nontender. EXTREMITIES: No edema. VASCULAR: Diminished pulses. SKIN: Warm, dry, and intact. NEUROLOGIC: No focal deficits noted. Cranial nerves are grossly intact. PSYCHIATRIC: Normal mood and affect. LABORATORY DATA: All reviewed and notable for troponin I of 0.004, 0.006, less than 0.001. Normal CK and CK-MB. BNP is 58. Creatinine is 0.78. LDL is 84. A 12-lead electroencephalogram showed ventricular paced rhythm. Chest x-ray showed clear lung galvan. IMPRESSION AND PLAN 1. Precordial pain. The patient ruled out for acute myocardial infarction. His electroencephalogram showed ventricular paced complexes. He has been told he had severe ____ coronary artery disease that would require bypass surgery. I am going to ask my colleague to review the films at [place] tomorrow. I will check a 2D echocardiogram. If the patient remains asymptomatic and is hemodynamically stable, he may be discharged with outpatient referral for bypass surgery if that is indeed required. 2. Hypertension. The patient's blood pressure is well controlled on current antihypertensive regimen. 3. Coronary artery disease. Continue aspirin. Avoid Plavix at this point in time, given possible need for bypass surgery. Will initiate nitroglycerin in the form of isosorbide mononitrate. 4. Tobacco use with chronic obstructive pulmonary disease. Treatment per primary team. Thank you for this consultation. I will follow along with you. Job#: [id number]
[2018-03-24 20:00] VITALS: BP 118/73
[2018-03-25] VITALS (11 sets, daily range): BP systolic 96–237; BP diastolic 51–189
[2018-03-25] MEDS: ALBUTEROL/IPRATROPIUM 3 ML NEB NEB SCH ×4 (00:30→19:11)
[2018-03-25] MEDS: MORPHINE SULFATE 2 MG/ML SYR IV PRN ×7 (04:05→22:02)
[2018-03-25] MEDS ORDERED: SODIUM CHLORIDE 0.9% 250ML 250 ML ONE (08:41)
[2018-03-25] MEDS: ISOSORBIDE MONONITRATE 30 MG TAB CR PO SCH (08:51)
[2018-03-25] MEDS: AZITHROMYCIN 500MG/NS 250 ML 250 ML IV SCH (08:51)
[2018-03-25] MEDS: ASPIRIN 81 MG ENTERIC COATED PO SCH (08:52)
[2018-03-25] MEDS: FAMOTIDINE 20 MG/2 ML VIAL IV SCH (08:52)
[2018-03-25] MEDS: ALBUTEROL SULF 0.083% NEB SOLN 3 ML NEB NEB PRN ×2 (09:57→16:32)
[2018-03-25] MEDS: IPRATROPIUM BROMIDE 0.02% 2.5 ML NEB NEB PRN ×2 (09:57→16:32)
[2018-03-25] MEDS ORDERED: FUROSEMIDE INJ 10 MG/ML 2 ML VIAL IV ONE (10:30)
--- NOTE | 2018-03-25 10:49 | Progress Note ---
DATE: March 25, 2018 CARDIOLOGY PROGRESS NOTE SUBJECTIVE: Patient still reports squeezing chest pain. Patient's symptoms did not improve with isosorbide. He continues to have a cough and is wheezing and mild shortness of breath. OBJECTIVE VITAL SIGNS: Temperature is 97.6, heart rate is 66, respirations are 22, blood pressure is 102/58, oxygen saturation 100% on 3 L nasal cannula. GENERAL: He is an elderly appearing man in no apparent distress. Alert and oriented times 3. CARDIOVASCULAR: He is regular rate and rhythm. Normal S1 and S2. No murmurs auscultated. LUNGS: Diffuse wheezing throughout both lung galvan. ABDOMEN: Soft and nontender. EXTREMITIES: Trace edema. VASCULAR: Diminished pulses. NEUROLOGIC: No focal deficits noted. LABORATORY DATA: Reviewed. None from March 25, 2018. Echocardiogram showed mildly reduced left ventricular systolic function at 45% to 50% with global hypokinesis. Telemetry monitoring revealed ventricular paced rhythm. Coronary angiography from [facility] was reviewed, and it shows an occluded left anterior descending coronary artery with its chronicity uncertain. IMPRESSION AND RECOMMENDATIONS 1. Coronary artery disease with continued chest pain: Patient ruled out for acute myocardial infarction. He has a ventricular paced rhythm on telemetry and 12-lead echocardiogram. He has continued chest pain. I will reinitiate his dual antiplatelet regimen with aspirin and Plavix along with statin. Patient will undergo repeat coronary angiography on March 27, 2018, with possible intervention of the left anterior descending coronary artery. 2. Vptgr-hh-uaztbbt systolic congestive heart failure: Patient has a mildly reduced left ventricular systolic function. Will reinitiate low-dose lisinopril. Will avoid beta mariano at this point in time given active moderate to severe wheezing. Will reinitiate low-dose Lasix as he has a left pleural effusion. 3. Chronic obstructive pulmonary disease: Treatment per primary team. 4. Hyperlipidemia: Reinitiate statin. Thank you for the consultation. Will continue to follow. Job#: [id number] JENNIFER
[2018-03-25] MEDS: CLOPIDOGREL BISULFATE 75 MG TAB PO SCH (10:58)
[2018-03-25] MEDS: METHYLPREDNISOLONE SOD SUCC 40 MG/ML VIAL IV SCH (17:24)
[2018-03-25] MEDS: FAMOTIDINE 20 MG TAB PO SCH (17:24)
[2018-03-25] MEDS: BUDESONIDE/FORMOTEROL 160/4.5MCG INHALER INH SCH (19:11)
[2018-03-25] MEDS: LORATADINE 10 MG TAB PO SCH (19:54)
[2018-03-25] MEDS: ATORVASTATIN 20 MG TAB PO SCH (19:54)
[2018-03-25] MEDS: MIRTAZAPINE 15 MG TAB PO SCH (19:55)
[2018-03-26] VITALS (7 sets, daily range): BP systolic 98–120; BP diastolic 65–88
[2018-03-26] MEDS: ALBUTEROL/IPRATROPIUM 3 ML NEB NEB SCH ×4 (00:16→19:51)
[2018-03-26] MEDS: MORPHINE SULFATE 2 MG/ML SYR IV PRN ×5 (02:39→18:04)
[2018-03-26 05:35] LABS: BASOPHILS % 0.1 % (0.0-1.0); HEMATOCRIT 40.3 % (38.2-49.6); HEMOGLOBIN 12.2 g/dL (14.0-18.0); LYMPHOCYTES # (AUTO) 0.6 (1.0-3.2); LYMPHOCYTES % 6.1 % (18.0-39.1); MEAN CORPUSCULAR HEMOGLOBIN 28.6 pg (28-32); MEAN CORPUSCULAR HGB CONC 30.3 g/dL (31-35); MEAN CORPUSCULAR VOLUME 94.4 fL (81-99); MONOCYTES # (AUTO) 0.4 (0.2-0.8); MONOCYTES % 3.5 % (4.4-11.3); NEUTROPHILS # (AUTO) 9.3 (2.1-6.9); PLATELET COUNT 194 x10e3/uL (140-360); RED BLOOD COUNT 4.27 x10e6/uL (4.3-5.7); RED CELL DISTRIBUTION WIDTH 12.9 % (11.7-14.4)
[2018-03-26 06:04] LABS: ANION GAP 11.7 mmol/L (8-16); BLOOD UREA NITROGEN 14 mg/dL (7-26); BUN/CREATININE RATIO 19 (6-25); CALCIUM 9.2 mg/dL (8.4-10.2); CARBON DIOXIDE 34 mmol/L (22-29); CHLORIDE 99 mmol/L (98-107); CREATININE, SERUM 0.73 mg/dL (0.72-1.25); EST GLOMERULAR FILTRATION RATE > 60 ML/MIN (60-); GLUCOSE 116 mg/dL (74-118); POTASSIUM 4.7 mmol/L (3.5-5.1); SODIUM 140 mmol/L (136-145)
--- NOTE | 2018-03-26 06:32 | Diagnostic Imaging Report ---
EXAMINATION: CHEST SINGLE (PORTABLE) INDICATION: Shortness of breath. COMPARISON: 03/24/2018 FINDINGS: AP view TUBES and LINES: Right upper extremity PICC tip overlies the SVC. Dual-lead cardiac pacer. LUNGS: Lungs are well inflated. There is no evidence of pneumonia or pulmonary edema. PLEURA: Trace right pleural effusion. No pneumothorax. HEART AND MEDIASTINUM: The cardiomediastinal silhouette is stable. BONES AND SOFT TISSUES: No acute osseous lesion. Soft tissues are unremarkable. UPPER ABDOMEN: No free air under the diaphragm. IMPRESSION: Right upper extremity PICC tip overlies the SVC. Trace right pleural effusion. Signed by: DR. Niraj Casillas MD on 03/26/2018 6:29 AM
[2018-03-26] MEDS: BUDESONIDE/FORMOTEROL 160/4.5MCG INHALER INH SCH ×3 (06:52→21:32)
[2018-03-26] MEDS: ISOSORBIDE MONONITRATE 30 MG TAB CR PO SCH (09:32)
[2018-03-26] MEDS: ASPIRIN 81 MG ENTERIC COATED PO SCH (09:32)
[2018-03-26] MEDS: FAMOTIDINE 20 MG TAB PO SCH ×2 (09:32→17:14)
[2018-03-26] MEDS: CLOPIDOGREL BISULFATE 75 MG TAB PO SCH (09:32)
[2018-03-26] MEDS: AZITHROMYCIN 500MG/NS 250 ML 250 ML IV SCH (09:32)
[2018-03-26] MEDS: CITALOPRAM HYDROBROMIDE 20 MG TAB PO SCH (09:32)
[2018-03-26] MEDS: LISINOPRIL 2.5 MG TAB PO SCH (09:32)
[2018-03-26] MEDS: METHYLPREDNISOLONE SOD SUCC 40 MG/ML VIAL IV SCH ×2 (09:32→17:14)
--- NOTE | 2018-03-26 19:24 | Progress Note ---
DATE: March 26, 2018 CARDIOLOGY PROGRESS NOTE SUBJECTIVE: No major events overnight. Continues to have episodic chest pain and pressure. OBJECTIVE VITAL SIGNS: Temperature 97.5, pulse 74, respiratory rate 22, blood pressure 109/76, satting 100% on 3 liters nasal cannula. GENERAL: Obese white man, in no acute distress. CARDIOVASCULAR: Regular rate and rhythm. No murmurs, rubs, or gallops. Palpable radial pulses. Palpable carotid pulses. LUNGS: Clear to auscultation bilaterally. ABDOMEN: Obese, soft, and nontender. No masses. NEURO AND PSYCH: Alert and oriented to person, place, and time. Normal affect. LABORATORY DATA: Reviewed. ECHOCARDIOGRAM: Reviewed. TELEMETRY DATA: Reviewed, shows ventricularly paced rhythm. ASSESSMENT AND PLAN 1. Coronary artery disease. 2. Unstable angina. 3. Wsnbw-uf-jmbsbvs systolic congestive heart failure. 4. Chronic obstructive pulmonary disease. 5. Hyperlipidemia. 6. Hypertension. RECOMMENDATION: Reviewed angiogram performed at [facility] recently shows total occlusion of the left anterior descending artery. Will plan for another angiogram tomorrow and decided revascularization plan for this likely CT of the LAD. Thank you for this consult. Will continue to follow. Job#: [id number] GANESH
[2018-03-26] MEDS: LORATADINE 10 MG TAB PO SCH (21:00)
[2018-03-26] MEDS: MIRTAZAPINE 15 MG TAB PO SCH (21:00)
[2018-03-26] MEDS: ATORVASTATIN 20 MG TAB PO SCH (21:00)
[2018-03-27] VITALS (7 sets, daily range): BP systolic 89–128; BP diastolic 64–80
[2018-03-27] MEDS: ALBUTEROL/IPRATROPIUM 3 ML NEB NEB SCH ×4 (01:22→19:21)
[2018-03-27] MEDS: METHYLPREDNISOLONE SOD SUCC 40 MG/ML VIAL IV SCH ×2 (08:36→17:42)
[2018-03-27] MEDS: AZITHROMYCIN 500MG/NS 250 ML 250 ML IV SCH (08:36)
[2018-03-27] MEDS: MORPHINE SULFATE 2 MG/ML SYR IV PRN ×3 (08:36→20:45)
[2018-03-27] MEDS: CITALOPRAM HYDROBROMIDE 20 MG TAB PO SCH (10:26)
[2018-03-27] MEDS: FAMOTIDINE 20 MG TAB PO SCH ×2 (10:26→17:42)
[2018-03-27] MEDS: CLOPIDOGREL BISULFATE 75 MG TAB PO SCH (10:26)
[2018-03-27] MEDS: ISOSORBIDE MONONITRATE 30 MG TAB CR PO SCH (10:26)
[2018-03-27] MEDS: ASPIRIN 81 MG ENTERIC COATED PO SCH (10:26)
[2018-03-27] MEDS: LISINOPRIL 2.5 MG TAB PO SCH (10:27)
--- NOTE | 2018-03-27 12:43 | Progress Note ---
DATE: March 27, 2018 CARDIOLOGY PROGRESS NOTE: SUBJECTIVE: No major events overnight. Still having some episodes of chest pain. OBJECTIVE: VITAL SIGNS: Temperature 96.1, pulse 73, respiratory rate 22, blood pressure 110/79, satting 100% on 2 liters nasal cannula. GENERAL: Obese white man, no acute distress, well developed. CARDIOVASCULAR: Regular rate and rhythm. No murmurs, rubs or gallops. PMI could not be palpated due to obesity. Palpable carotid pulses. Palpable radial pulses. LUNGS: Clear to auscultation bilaterally. No respiratory distress. ABDOMEN: Obese, soft, nontender. No masses. NEURO AND PSYCH: Alert and oriented to person, place and time. Normal affect. LABORATORY DATA: Reviewed. INPATIENT CARDIOVASCULAR MEDICATIONS: Reviewed. TELEMETRY DATA: Reviewed. Shows V-paced rhythm. ASSESSMENT: 1. Coronary artery disease. 2. Unstable angina. 3. Aycfi-uy-kynfomt systolic congestive heart failure. 4. Chronic obstructive pulmonary disease. 5. Hyperlipidemia. 6. Hypertension. RECOMMENDATIONS: Plan for angiogram for Friday to assess anatomy of his LAD, whether it is amenable to intervention versus bypass surgery. Remains stable hemodynamically otherwise. Continue current cardiovascular medicines. Thank you for this consult. Will continue to follow. Job#: [id number] RAN
[2018-03-27] MEDS: IPRATROPIUM BROMIDE 0.02% 2.5 ML NEB NEB PRN (15:00)
[2018-03-27] MEDS: ALBUTEROL SULF 0.083% NEB SOLN 3 ML NEB NEB PRN (15:00)
[2018-03-27] MEDS: BUDESONIDE/FORMOTEROL 160/4.5MCG INHALER INH SCH (19:21)
[2018-03-27] MEDS: ATORVASTATIN 20 MG TAB PO SCH (20:45)
[2018-03-27] MEDS: LORATADINE 10 MG TAB PO SCH (20:45)
[2018-03-27] MEDS: MIRTAZAPINE 15 MG TAB PO SCH (20:45)
[2018-03-28] VITALS (9 sets, daily range): BP systolic 108–173; BP diastolic 69–102
[2018-03-28] MEDS: MORPHINE SULFATE 2 MG/ML SYR IV PRN ×4 (00:34→22:07)
[2018-03-28] MEDS: ALBUTEROL/IPRATROPIUM 3 ML NEB NEB SCH ×4 (00:53→19:31)
[2018-03-28] MEDS: ASPIRIN 81 MG ENTERIC COATED PO SCH (08:57)
[2018-03-28] MEDS: CLOPIDOGREL BISULFATE 75 MG TAB PO SCH (08:57)
[2018-03-28] MEDS: CITALOPRAM HYDROBROMIDE 20 MG TAB PO SCH (08:57)
[2018-03-28] MEDS: METHYLPREDNISOLONE SOD SUCC 40 MG/ML VIAL IV SCH (08:57)
[2018-03-28] MEDS: LISINOPRIL 2.5 MG TAB PO SCH (08:57)
[2018-03-28] MEDS: ISOSORBIDE MONONITRATE 30 MG TAB CR PO SCH (08:57)
[2018-03-28] MEDS: FAMOTIDINE 20 MG TAB PO SCH ×2 (08:57→17:55)
[2018-03-28] MEDS: BUDESONIDE/FORMOTEROL 160/4.5MCG INHALER INH SCH ×2 (09:00→19:31)
--- NOTE | 2018-03-28 14:29 | Progress Note ---
DATE: March 28, 2018 CARDIOLOGY PROGRESS NOTE SUBJECTIVE: No major events overnight. Continues to have episodes of mild chest pain even at rest. OBJECTIVE VITAL SIGNS: Temperature 96.7, pulse 69, respiratory rate 20, blood pressure 126/79, satting 96% on 2 L nasal cannula. GENERAL: Obese white man, no acute distress. CARDIOVASCULAR: Regular rate and rhythm. No murmurs, rubs or gallops. Palpable carotid pulses. Palpable radial pulses. LUNGS: Clear to auscultation bilaterally. No respiratory distress. ABDOMEN: Obese, soft, nontender, and nondistended. NEURO AND PSYCH: Alert and oriented to person, place, and time. Normal affect. INPATIENT MEDICATIONS: Reviewed. LABORATORY DATA: Reviewed. IMAGING DATA: Reviewed. TELEMETRY DATA: Reviewed, shows normal sinus rhythm. ASSESSMENT 1. Coronary artery disease. 2. Unstable angina. 3. Phrjx-qm-clhrkzx systolic congestive heart failure. 4. Chronic obstructive pulmonary disease. 5. Hyperlipidemia. 6. Hypertension. RECOMMENDATIONS: Plan for coronary angiography with possible intervention on Friday. Remains stable hemodynamically otherwise. Continue current cardiovascular medications. Thank you for this consult. We will continue to follow. Job#: [id number] GANESH
[2018-03-28] MEDS: MIRTAZAPINE 15 MG TAB PO SCH (20:25)
[2018-03-28] MEDS: HEPARIN SOD (PORCINE) 5,000 UNIT/ML VIAL SC SCH (20:25)
[2018-03-28] MEDS: LORATADINE 10 MG TAB PO SCH (20:25)
[2018-03-28] MEDS: ATORVASTATIN 20 MG TAB PO SCH (20:25)
[2018-03-29] VITALS (8 sets, daily range): BP systolic 122–157; BP diastolic 66–93
[2018-03-29] MEDS: ALBUTEROL/IPRATROPIUM 3 ML NEB NEB SCH ×4 (00:35→19:12)
[2018-03-29] MEDS: MORPHINE SULFATE 2 MG/ML SYR IV PRN ×5 (01:05→23:50)
[2018-03-29] MEDS: BUDESONIDE/FORMOTEROL 160/4.5MCG INHALER INH SCH ×3 (06:45→19:23)
[2018-03-29] MEDS: HEPARIN SOD (PORCINE) 5,000 UNIT/ML VIAL SC SCH ×2 (08:40→20:05)
[2018-03-29] MEDS: ASPIRIN 81 MG ENTERIC COATED PO SCH (09:10)
[2018-03-29] MEDS: LISINOPRIL 2.5 MG TAB PO SCH (09:10)
[2018-03-29] MEDS: FAMOTIDINE 20 MG TAB PO SCH ×2 (09:10→16:29)
[2018-03-29] MEDS: CITALOPRAM HYDROBROMIDE 20 MG TAB PO SCH (09:10)
[2018-03-29] MEDS: CLOPIDOGREL BISULFATE 75 MG TAB PO SCH (09:10)
[2018-03-29] MEDS: ISOSORBIDE MONONITRATE 30 MG TAB CR PO SCH (09:10)
[2018-03-29] MEDS: METHYLPREDNISOLONE SOD SUCC 40 MG/ML VIAL IV SCH (09:10)
[2018-03-29] MEDS: ACETAMINOPHEN/CODEINE 300MG - 30MG TAB PO PRN (16:29)
--- NOTE | 2018-03-29 18:06 | Progress Note ---
DATE: March 29, 2018 CARDIOLOGY PROGRESS NOTE SUBJECTIVE: No major events overnight. OBJECTIVE VITAL SIGNS: Temperature 96.4, pulse 78, respiratory rate 20, blood pressure 122/66, satting 96% on 2 liters nasal cannula. GENERAL: Obese white man, no acute distress. CARDIOVASCULAR: Regular rate and rhythm. No murmurs, rubs, or gallops. Palpable carotid pulses. Palpable radial pulses. LUNGS: Clear to auscultation bilaterally. ABDOMEN: Obese, soft, nontender. No masses. NEURO AND PSYCH: Alert and oriented to person, place, and time. Normal affect. CARDIOVASCULAR MEDICATIONS: Reviewed. LABORATORY DATA: Reviewed. IMAGING DATA: Reviewed. TELEMETRY DATA: Reviewed. ASSESSMENT 1. Coronary artery disease. 2. Unstable angina. 3. Jphpc-kh-berxefv systolic congestive heart failure. 4. Chronic obstructive pulmonary disease. 5. Hyperlipidemia. 6. Hypertension. PLAN: Plan for coronary angiography with possible intervention tomorrow. Remains hemodynamically stable otherwise. Continue current cardiovascular medications. Thank you for this consult. We will continue to follow. Job#: [id number] RTY
[2018-03-29] MEDS: MIRTAZAPINE 15 MG TAB PO SCH (20:30)
[2018-03-29] MEDS: LORATADINE 10 MG TAB PO SCH (20:30)
[2018-03-29] MEDS: ATORVASTATIN 20 MG TAB PO SCH (20:30)
[2018-03-30] VITALS (7 sets, daily range): BP systolic 122–158; BP diastolic 63–91
[2018-03-30] MEDS: MORPHINE SULFATE 2 MG/ML SYR IV PRN ×5 (00:18→16:30)
[2018-03-30] MEDS: ALBUTEROL/IPRATROPIUM 3 ML NEB NEB SCH ×4 (01:07→19:23)
[2018-03-30] MEDS: ALBUTEROL SULF 0.083% NEB SOLN 3 ML NEB NEB PRN (03:45)
[2018-03-30 05:32] LABS: BASOPHILS % 0.2 % (0.0-1.0); HEMATOCRIT 42.2 % (38.2-49.6); HEMOGLOBIN 12.9 g/dL (14.0-18.0); LYMPHOCYTES # (AUTO) 1.5 (1.0-3.2); LYMPHOCYTES % 8.9 % (18.0-39.1); MEAN CORPUSCULAR HEMOGLOBIN 29.3 pg (28-32); MEAN CORPUSCULAR HGB CONC 30.6 g/dL (31-35); MEAN CORPUSCULAR VOLUME 95.9 fL (81-99); MONOCYTES # (AUTO) 1.2 (0.2-0.8); MONOCYTES % 6.8 % (4.4-11.3); NEUTROPHILS # (AUTO) 13.9 (2.1-6.9); NEUTROPHILS % 82.4 % (38.7-80.0); PLATELET COUNT 194 x10e3/uL (140-360)
[2018-03-30 05:45] LABS: INR 0.87; PROTHROMBIN TIME 12.6 seconds (11.9-14.5)
[2018-03-30 05:48] LABS: CALCIUM 9.4 mg/dL (8.4-10.2); CHLORIDE 98 mmol/L (98-107); GLUCOSE 96 mg/dL (74-118); POTASSIUM 4.3 mmol/L (3.5-5.1); SODIUM 139 mmol/L (136-145)
[2018-03-30 06:35] LABS: BLOOD UREA NITROGEN 17 mg/dL (7-26); BUN/CREATININE RATIO 24 (6-25); CARBON DIOXIDE 35 mmol/L (22-29); EST GLOMERULAR FILTRATION RATE > 60 ML/MIN (60-)
[2018-03-30 06:36] LABS: ANION GAP 10.3 mmol/L (8-16)
[2018-03-30] MEDS: HEPARIN SOD (PORCINE) 5,000 UNIT/ML VIAL SC SCH ×2 (09:00→21:14)
[2018-03-30] MEDS: FAMOTIDINE 20 MG TAB PO SCH ×2 (09:00→16:29)
[2018-03-30] MEDS: ASPIRIN 81 MG ENTERIC COATED PO SCH (09:00)
[2018-03-30] MEDS: BUDESONIDE/FORMOTEROL 160/4.5MCG INHALER INH SCH (09:00)
[2018-03-30] MEDS: METHYLPREDNISOLONE SOD SUCC 40 MG/ML VIAL IV SCH (09:28)
[2018-03-30] MEDS: CITALOPRAM HYDROBROMIDE 20 MG TAB PO SCH (13:03)
[2018-03-30] MEDS: ISOSORBIDE MONONITRATE 30 MG TAB CR PO SCH (13:04)
[2018-03-30] MEDS: CLOPIDOGREL BISULFATE 75 MG TAB PO SCH (13:17)
[2018-03-30] MEDS: LISINOPRIL 2.5 MG TAB PO SCH (13:17)
--- NOTE | 2018-03-30 15:11 | Progress Note ---
DATE: March 30, 2018 CARDIOLOGY PROGRESS NOTE SUBJECTIVE: The patient is hungry, denies any chest pain. He does report some shortness of breath. No other events otherwise. OBJECTIVE VITAL SIGNS: Temperature 97.5, heart rate 89, respirations 22, blood pressure 158/71, oxygen saturation 96% on 2 liters nasal cannula. GENERAL: He is an obese man, lying comfortably in bed. HEENT: Head is normocephalic, atraumatic. CARDIOVASCULAR: Regular rate and rhythm. No murmurs, rubs or gallops LUNGS: Scattered wheezes. ABDOMEN: Soft, nontender. EXTREMITIES: No edema. VASCULAR: 2+ pulses. NEUROLOGIC: No focal deficits noted. MEDICATIONS: Reviewed. LABORATORY DATA: Reviewed. TELEMETRY: Normal sinus rhythm. IMPRESSION 1. Coronary artery disease. 2. Unstable angina. 3. Pgeac-vt-nrmynbi systolic congestive heart failure. 4. Chronic obstructive pulmonary disease. 5. Hyperlipidemia. 6. Hypertension. RECOMMENDATIONS: Coronary angiography cannot be done today. Plan for possible intervention of the left anterior descending coronary artery on March 31. Otherwise, continue close telemetry monitoring and continue cardiovascular medications. Job#: [id number]
[2018-03-30] MEDS: LORATADINE 10 MG TAB PO SCH (21:12)
[2018-03-30] MEDS: MIRTAZAPINE 15 MG TAB PO SCH (21:12)
[2018-03-30] MEDS: ATORVASTATIN 20 MG TAB PO SCH (21:12)
[2018-03-31] VITALS (8 sets, daily range): BP systolic 117–165; BP diastolic 79–107
[2018-03-31] MEDS: ACETAMINOPHEN/CODEINE 300MG - 30MG TAB PO PRN ×2 (00:37→12:23)
[2018-03-31] MEDS: ALBUTEROL/IPRATROPIUM 3 ML NEB NEB SCH ×4 (01:50→19:20)
[2018-03-31] MEDS ORDERED: MIDAZOLAM HCL 2 MG/2 ML VIAL ONE ×2 (07:28→08:51)
[2018-03-31] MEDS ORDERED: LIDOCAINE HCL 2% LOCAL 20 ML VIAL ONE (07:28)
[2018-03-31] MEDS ORDERED: FENTANYL CITRATE/PF 100MCG/2 ML INJ ONE (07:28)
[2018-03-31] MEDS ORDERED: IOPAMIDOL 370 MG/ML 200 ML INFUS..BTL INJ ONE ×2 (07:29→08:31)
[2018-03-31] MEDS ORDERED: HEPARIN SOD/SOD CHLORIDE 2,000 ML ONE (07:29)
[2018-03-31] MEDS ORDERED: SODIUM CHLORIDE 0.9% 1000ML 1,000 ML ONE (07:29)
[2018-03-31] MEDS: ASPIRIN 81 MG ENTERIC COATED PO SCH (07:33)
[2018-03-31] MEDS: FAMOTIDINE 20 MG TAB PO SCH ×2 (07:33→16:00)
[2018-03-31] MEDS: ISOSORBIDE MONONITRATE 30 MG TAB CR PO SCH (07:33)
[2018-03-31] MEDS: CITALOPRAM HYDROBROMIDE 20 MG TAB PO SCH (07:33)
[2018-03-31] MEDS: LISINOPRIL 2.5 MG TAB PO SCH (07:34)
[2018-03-31] MEDS: CLOPIDOGREL BISULFATE 75 MG TAB PO SCH (07:34)
[2018-03-31] MEDS: HEPARIN SOD (PORCINE) 5,000 UNIT/ML VIAL SC SCH ×3 (07:34→20:29)
[2018-03-31] MEDS ORDERED: NITROGLYCERIN/D5W 200 MCG/ML 250 ML ONE (08:22)
[2018-03-31] MEDS ORDERED: HEPARIN SOD (PORCINE) 1000 UNIT/ML 30ML ONE (08:22)
[2018-03-31] MEDS ORDERED: NITROGLYCERIN 0.4 MG SUBL ONE (08:52)
[2018-03-31] MEDS ORDERED: SODIUM CHLORIDE 0.9% 1000ML 1,000 ML IV SCH (09:30)
[2018-03-31] MEDS: MORPHINE SULFATE 2 MG/ML SYR IV PRN ×3 (09:56→20:29)
--- NOTE | 2018-03-31 17:12 | Progress Note ---
DATE: March 31, 2018 CARDIOLOGY PROGRESS NOTE SUBJECTIVE: The patient overall feeling well with no further chest pain. Mild shortness of breath. OBJECTIVE VITAL SIGNS: Temperature 96.3, heart rate 71, respirations 18, blood pressure 165/107, oxygen saturation 99% on 2 liters nasal cannula. GENERAL: Elderly appearing, in no apparent distress. LUNGS: Diminished breath sounds. CARDIOVASCULAR: Regular rate and rhythm. No murmurs. ABDOMEN: Soft and nontender. EXTREMITIES: No edema. NEUROLOGIC: No focal deficits noted. CARDIOVASCULAR MEDICATIONS: Reviewed. LABORATORY DATA: Reviewed, shows a white blood cell count of 16.9, hemoglobin 12.9, creatinine 0.7, negative troponin. Coronary angiography today revealed a very small atretic [place] left anterior descending coronary artery. 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 Adequate visualization was not achieved. Right coronary artery with nonobstructive coronary artery disease. IMPRESSION 1. Coronary artery disease. 2. Anomalous coronary artery. 3. Zzsro-iq-rvuviqw congestive heart failure. 4. Chronic obstructive pulmonary disease. 5. Hyperlipidemia. 6. Hypertension. 7. Tobacco abuse. RECOMMENDATIONS: Coronary angiography today revealed no significant obstructive disease with an anomalous takeoff of his left anterior descending coronary artery. Adequate visualization was not achieved. Will order a CTA coronaries tomorrow to ensure a nonmalignant course of the LAD. Otherwise, continue all current cardiovascular medications. Will discuss anticoagulation needs with the patient prior to discharge. Job#: [id number]
--- NOTE | 2018-03-31 18:57 | Operative Report ---
DATE OF PROCEDURE: March 31, 2018 PROCEDURES PERFORMED 1. Conscious sedation 30 minutes. 2. Selective coronary angiography x2. 3. Left heart catheterization. PREPROCEDURE DIAGNOSIS: Abnormal result on cardiovascular study with coronary artery disease and chest pain. 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 ESTIMATED BLOOD LOSS: Less than 20 mL. SPECIMENS REMOVED: None. PROCEDURE IN DETAIL: After informed consent was obtained, the patient was brought to the cardiac catheterization laboratory in the fasting, nonsedated state. Bilateral groins were prepped and draped in the usual sterile fashion. Then 2% lidocaine was infiltrated over the right anterior groin for local anesthesia. Using a micropuncture needle, the right common femoral artery was accessed via the modified Seldinger technique, and a 6-[place] sheath was placed. Next, diagnostic coronary angiography was performed using a 5-[place] JL4, JR4, and 3DRC catheters. Diagnostic imaging revealed possible chronic total occlusion of the left anterior descending coronary artery in its normal position, and a possible anomalous left anterior descending coronary artery coming off the right coronary cusp. The patient then received systemic heparin for therapeutic anticoagulation. Decision was made to possibly intervene on the chronic total occlusion. Left main was cannulated with a 6-[place] XBLAD 4 guide catheter. After confirmation of therapy, clotting time, a Whisper wire was back loaded into 1.5 mm [id number] balloon, both of which were attempted to cross into the distal LAD itself. The wire continued to track into small branches, and there was no proximal cap identified. On further interrogation of the diagnostic images, there was no significant collateral flow from the right coronary artery into the LAD. The LAD appeared to have an anomalous takeoff of the right coronary artery cusp. The intervention was then aborted at this point in time. The arteriotomy site was closed with Mynx device with excellent hemostasis. The patient tolerated the procedure well. There were no immediate complications. He was transferred back to his room in stable condition. PROCEDURAL FINDINGS: 1. Left main coronary artery is patent without significant disease. 2. Ramus intermedius coronary artery is patent without significant coronary artery disease. 3. Left circumflex coronary artery is small, patent, and provides one obtuse marginal vessel. 4. Left anterior descending coronary artery in the original position is small and atretic. This provides one diagonal branch and is patent without significant disease. 5. There was anomalous coronary coming off the right coronary cusp which appeared to provide flow into the left anterior descending coronary artery distribution. There is no significant obstructive disease seen on these nonselective shots. 6. Right coronary artery is a large, dominant vessel and has diffuse 40% disease. 7. Left ventricular end diastolic pressure is 18 mmHg with no aortic valve gradient upon pullback. IMPRESSION AND PLAN: This is a 62-year-old gentleman who had been told he needed bypass surgery at an outside facility with known coronary artery disease and continued chest pain. 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 Recommend checking at CTA coronaries to ensure a nonmalignant course of the LAD. Job#: [id number]
[2018-03-31] MEDS: BUDESONIDE/FORMOTEROL 160/4.5MCG INHALER INH SCH (19:20)
[2018-03-31] MEDS: LORATADINE 10 MG TAB PO SCH (20:29)
[2018-03-31] MEDS: MIRTAZAPINE 15 MG TAB PO SCH (20:29)
[2018-03-31] MEDS: ATORVASTATIN 20 MG TAB PO SCH (20:29)
[2018-04-01] VITALS (9 sets, daily range): BP systolic 116–177; BP diastolic 71–103
[2018-04-01] MEDS: MORPHINE SULFATE 2 MG/ML SYR IV PRN ×5 (00:09→23:35)
[2018-04-01] MEDS: ALBUTEROL/IPRATROPIUM 3 ML NEB NEB SCH ×4 (01:18→19:20)
[2018-04-01] MEDS: BUDESONIDE/FORMOTEROL 160/4.5MCG INHALER INH SCH ×2 (08:00→17:00)
[2018-04-01] MEDS: HEPARIN SOD (PORCINE) 5,000 UNIT/ML VIAL SC SCH ×2 (09:00→20:17)
[2018-04-01] MEDS: FAMOTIDINE 20 MG TAB PO SCH ×2 (11:24→18:00)
[2018-04-01] MEDS: ASPIRIN 81 MG ENTERIC COATED PO SCH (11:24)
[2018-04-01] MEDS: LISINOPRIL 2.5 MG TAB PO SCH (11:24)
[2018-04-01] MEDS: CLOPIDOGREL BISULFATE 75 MG TAB PO SCH (11:24)
[2018-04-01] MEDS: CITALOPRAM HYDROBROMIDE 20 MG TAB PO SCH (11:24)
[2018-04-01] MEDS: ISOSORBIDE MONONITRATE 30 MG TAB CR PO SCH (11:24)
[2018-04-01 13:44] LABS: BASOPHILS % 0.2 % (0.0-1.0); EOSINOPHILS # (AUTO) 0.1 (0.0-0.4); EOSINOPHILS % 0.4 % (0.0-6.0); HEMATOCRIT 39.7 % (38.2-49.6); HEMOGLOBIN 12.1 g/dL (14.0-18.0); LYMPHOCYTES # (AUTO) 1.8 (1.0-3.2); LYMPHOCYTES % 13.8 % (18.0-39.1); MEAN CORPUSCULAR HEMOGLOBIN 29.2 pg (28-32); MEAN CORPUSCULAR HGB CONC 30.5 g/dL (31-35); MEAN CORPUSCULAR VOLUME 95.9 fL (81-99); MONOCYTES # (AUTO) 0.9 (0.2-0.8); MONOCYTES % 6.6 % (4.4-11.3); NEUTROPHILS # (AUTO) 10.3 (2.1-6.9); NEUTROPHILS % 77.8 % (38.7-80.0); PLATELET COUNT 174 x10e3/uL (140-360); RED BLOOD COUNT 4.14 x10e6/uL (4.3-5.7); RED CELL DISTRIBUTION WIDTH 13.1 % (11.7-14.4)
[2018-04-01 13:55] LABS: INR 0.87; PROTHROMBIN TIME 12.7 seconds (11.9-14.5)
[2018-04-01 14:04] LABS: ANION GAP 8.2 mmol/L (8-16); BLOOD UREA NITROGEN 15 mg/dL (7-26); BUN/CREATININE RATIO 21 (6-25); CALCIUM 8.6 mg/dL (8.4-10.2); CARBON DIOXIDE 36 mmol/L (22-29); CHLORIDE 98 mmol/L (98-107); CREATININE, SERUM 0.71 mg/dL (0.72-1.25); EST GLOMERULAR FILTRATION RATE > 60 ML/MIN (60-); GLUCOSE 112 mg/dL (74-118); POTASSIUM 4.2 mmol/L (3.5-5.1); SODIUM 138 mmol/L (136-145)
--- NOTE | 2018-04-01 14:12 | Progress Note ---
DATE: April 01, 2018 CARDIOLOGY PROGRESS NOTE SUBJECTIVE: Patient feels overall better. Denies any chest pain or shortness of breath. OBJECTIVE VITAL SIGNS: Temperature is 96, heart rate is 76, respirations are 22, blood pressure is 163/92, and oxygen saturation is 100% on 2 L nasal cannula. GENERAL: He is a chronically ill-appearing man in no apparent distress. CARDIOVASCULAR: Regular rate and rhythm. No murmurs. LUNGS: Scattered wheezes. ABDOMEN: Soft and nontender. EXTREMITIES: Trace edema. NEUROLOGIC: No focal deficits noted. CARDIOVASCULAR MEDICATIONS: Reviewed. CURRENT LABORATORY DATA: Pending. IMPRESSION 1. Coronary artery disease. 2. Anomalous coronary artery. 3. Chronic obstructive pulmonary disease. 4. Hyperlipidemia. 5. Hypertension. 6. Twlpa-mp-xprhkmx systolic congestive heart failure. 7. Tobacco abuse. 8. Atrial fibrillation. 9. Permanent pacemaker implantation. RECOMMENDATIONS: CT angiogram of the coronaries have been ordered today, and will review this once it has been resulted. This is evaluating the anomalous LAD to ensure that it is not taking a malignant course that would possibly require surgical intervention. Otherwise, continue current cardiovascular medications. I will reinitiate his anticoagulation as he does have AFib. Otherwise, continue all other current cardiovascular medications. Job#: [id number] JENNIFER
[2018-04-01] MEDS: LORATADINE 10 MG TAB PO SCH (20:10)
[2018-04-01] MEDS: ATORVASTATIN 20 MG TAB PO SCH (20:10)
[2018-04-01] MEDS: MIRTAZAPINE 15 MG TAB PO SCH (20:10)
[2018-04-01] MEDS ORDERED: CLONIDINE HCL 0.1 MG TAB PO PRN (20:45)
[2018-04-02] VITALS (7 sets, daily range): BP systolic 107–140; BP diastolic 70–87
[2018-04-02] MEDS: MORPHINE SULFATE 2 MG/ML SYR IV PRN ×4 (03:35→23:40)
[2018-04-02] MEDS: ALBUTEROL/IPRATROPIUM 3 ML NEB NEB SCH ×4 (07:05→19:45)
[2018-04-02] MEDS: BUDESONIDE/FORMOTEROL 160/4.5MCG INHALER INH SCH ×2 (07:10→19:45)
[2018-04-02] MEDS: HEPARIN SOD (PORCINE) 5,000 UNIT/ML VIAL SC SCH ×2 (09:00→21:18)
[2018-04-02] MEDS: LISINOPRIL 2.5 MG TAB PO SCH (09:00)
[2018-04-02] MEDS: ISOSORBIDE MONONITRATE 30 MG TAB CR PO SCH (09:00)
[2018-04-02] MEDS: CLOPIDOGREL BISULFATE 75 MG TAB PO SCH (09:00)
[2018-04-02] MEDS: FAMOTIDINE 20 MG TAB PO SCH ×2 (09:00→18:04)
[2018-04-02] MEDS: ASPIRIN 81 MG ENTERIC COATED PO SCH (09:00)
[2018-04-02] MEDS: CITALOPRAM HYDROBROMIDE 20 MG TAB PO SCH (09:00)
[2018-04-02] MEDS ORDERED: METOPROLOL TARTRATE 50 MG TAB PO NR (11:45)
[2018-04-02] MEDS ORDERED: NITROGLYCERIN 0.4 MG SUBL ONE (12:55)
[2018-04-02] MEDS ORDERED: METOPROLOL TARTRATE INJ 1 MG/ML VIAL ONE ×2 (13:05→13:33)
--- NOTE | 2018-04-02 16:44 | Diagnostic Imaging Report ---
EXAM: CALCIUM SCORE AND CORONARY CTA INDICATION: ^Anomalous LAD of right Coronary cusp COMPARISON: Chest radiograph 03/26/[address] chest without contrast 06/26/2014. TECHNIQUE: Multi-detector CT technology was employed (64 MDCT [employer]). Minimal slice thickness was performed following the intravenous administration of contrast material. The patient was premedicated with 50 mg by mouth and 5 mg i.v. metoprolol and 0.4 mg sublingual nitroglycerin for heart rate control and coronary dilation, respectively. IV CONTRAST: 100 mL of Isovue-370 ORAL CONTRAST: None COMPLICATIONS: None RADIATION DOSE: Total DLP: 2046.9 mGy*cm Estimated effective dose: (DLP x 0.015 x size factor) mSv CTDIvol has been reviewed. It is below the limits set by the Radiation Protocol Committee (RPC). For optimization of anatomic evaluation, multiplanar reconstruction, maximum intensity projections, and advanced 3-D off-line postprocessing were performed on a dedicated stand-alone workstation under the direct supervision of the interpreting physician. QUALITY: For due to an stable heart rate and motion artifact despite beta mariano treatment. FINDINGS: TUBES AND LINES: 2-lead pacemaker device in the left upper chest with leads in the right atrium and right ventricle. CALCIUM SCORE: The observed Agatston Calcium Score of 1362 is at percentile greater than 90% for subjects of the same age and gender who are free of clinical cardiovascular disease and treated diabetes. The Agatston score for each vessel is as follows: LM: 51.4 LAD: 287 LCx: 0 RCA: 1024 DISTRIBUTION OF THE CALCIFIED PLAQUES: Focal calcified plaque in the distal left main coronary artery, mid RCA and distal LAD. CORONARY ANATOMY: There is normal origin of the coronary arteries. Left Main Coronary Artery: The left main is a small sized vessel that bifurcates into the LAD and circumflex. Calcified plaque in the distal segment results in mild stenosis (20-30%). Left Anterior Descending Coronary Artery: Anomalous LAD origin, which has one branch arising from the right sinus of Valsalva, adjacent to the origin of the RCA, and running between the aorta and the RVOT, then extending into the interventricular groove (benign coarse) and terminating at the LV apex. Focal calcified plaque in the distal anomalous LAD. Unable to establish a degree of stenoses due to a small size vessel (2 mm). However, there is contrast opacification distal to the calcified plaque. There is also an orthotopic small LAD branch arising from the left main coronary artery, which runs within the interventricular groove and terminates in the mid interventricular septum. The LAD arising from the left sinus of Valsalva gives rise to 2 acute diagonal branches. No atherosclerotic disease in the remaining LAD segments. Left Circumflex Coronary Artery: The LCX is a small size vessel, which is non-dominant and is visualized until the level of the AV groove. It gives rise to 1 obtuse marginal branch. There is no evidence of atherosclerotic changes or stenotic disease. Right Coronary Artery: The RCA is a normal size vessel, which is dominant. It gives rise to a conus branch, AV dennis branch, and 2 acute marginal branches. In its distal segment it bifurcates into the PDA and PV branch. Atherosclerotic calcifications in the mid segment of the AP groove results in moderate to severe stenosis (60-70%). There appears to be a metallic stent in the distal RCA, which is patent without significant disease. CARDIAC MORPHOLOGY AND FUNCTION: Biatrial enlargement. LIMITED CHEST: Limited views of the visualized chest show no abnormality within chest wall and mediastinum. Few calcified right hilar lymph nodes. Mild bilateral interstitial edema. Diffuse bilateral hilar peribronchial wall thickening may relate to edema. Previously noted mildly spiculated pulmonary nodules are not included on this exam. The visualized portions of the ascending and descending thoracic aorta are of normal size. LIMITED ABDOMEN: Limited images of the upper abdomen reveal no abnormalities of the visualized organs. BONES: No acute osseous abnormalities. IMPRESSION: 1. Total Agatston Calcium Score: 1362 that corresponds to percentile greater than 90%, representing extensive plaque burden. 2. 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 It contains a focal calcified plaque in the mid segment, unable to quantify due to small vessel caliber (2 mm). - Additional small orthotopic LAD is arising from the left main from the left sinus of Valsalva and terminating at the mid interventricular septum and giving off 2 diagonal branches. - Normal origin of the RCA and LCX. 3. Complex plaque in the mid RCA resulting in moderate to severe stenosis (60-70%). There appears to be a patent metallic stent in the distal RCA. 4. Mild stenosis of the distal left main coronary artery due to calcified plaque. These preliminary results were discussed with Dr Beck on 04/02/2018 at 4:40 PM. A final report will be provided when calcium scoring and reconstructions are completed. Reference: [email or web address] Signed by: Dr. Liberty Paris M.D. on 04/03/2018 4:15 PM
--- NOTE | 2018-04-02 16:46 | Progress Note ---
DATE: April 02, 2018 CARDIOLOGY PROGRESS NOTE SUBJECTIVE: The patient feels better. No chest pain. No shortness of breath. OBJECTIVE VITAL SIGNS: Temperature 97.5, heart rate is 70, respirations are 20, blood pressure 117/79, O2 saturation 100% on 3 L nasal cannula. GENERAL: Is well-appearing and in no apparent distress. CARDIOVASCULAR: Regular rate and rhythm. LUNGS: Wheezing bilaterally. ABDOMEN: Soft and nontender. EXTREMITIES: No edema. Medications, laboratory and imaging data were reviewed. Telemetry monitoring revealed atrial fibrillation. IMPRESSION 1. 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 2. Qdzoe-ay-lkuomjl systolic congestive heart failure. 3. Chronic obstructive pulmonary disease. 4. Hyperlipidemia. 5. Hypertension. 6. Pacemaker implantation. 7. Atrial fibrillation. RECOMMENDATIONS: Coronary angiography revealed no significant coronary artery stenosis. Coronary CTA today performed and preliminary review shows likely that the LAD is arising from the right coronary cusp, and taking an intra-arterial approach in between the aorta and the pulmonary artery. This poses increased risk. Will await final radiology read for further recommendations. Otherwise, continue all current cardiovascular medications. Job#: [id number] TN
[2018-04-02] MEDS ORDERED: IOPAMIDOL 370 MG/ML 200 ML INFUS..BTL INJ ONE (16:54)
[2018-04-02] MEDS ORDERED: SODIUM CHLORIDE 0.9% 100 ML 100 ML ONE (16:54)
[2018-04-02] MEDS: LORATADINE 10 MG TAB PO SCH (21:17)
[2018-04-02] MEDS: MIRTAZAPINE 15 MG TAB PO SCH (21:17)
[2018-04-02] MEDS: ATORVASTATIN 20 MG TAB PO SCH (21:17)
[2018-04-03] VITALS (8 sets, daily range): BP systolic 84–131; BP diastolic 62–81
[2018-04-03] MEDS: ALBUTEROL/IPRATROPIUM 3 ML NEB NEB SCH ×4 (02:15→20:40)
[2018-04-03] MEDS: MORPHINE SULFATE 2 MG/ML SYR IV PRN ×4 (05:00→20:36)
[2018-04-03 05:18] LABS: BASOPHILS % 0.1 % (0.0-1.0); EOSINOPHILS # (AUTO) 0.1 (0.0-0.4); EOSINOPHILS % 0.7 % (0.0-6.0); HEMATOCRIT 40.6 % (38.2-49.6); HEMOGLOBIN 12.3 g/dL (14.0-18.0); LYMPHOCYTES # (AUTO) 1.6 (1.0-3.2); LYMPHOCYTES % 11.7 % (18.0-39.1); MEAN CORPUSCULAR HGB CONC 30.3 g/dL (31-35); MEAN CORPUSCULAR VOLUME 95.8 fL (81-99); MONOCYTES % 7.8 % (4.4-11.3); NEUTROPHILS # (AUTO) 10.5 (2.1-6.9); NEUTROPHILS % 78.7 % (38.7-80.0); PLATELET COUNT 174 x10e3/uL (140-360); RED BLOOD COUNT 4.24 x10e6/uL (4.3-5.7)
[2018-04-03 05:52] LABS: ANION GAP 10.6 mmol/L (8-16); BLOOD UREA NITROGEN 13 mg/dL (7-26); BUN/CREATININE RATIO 19 (6-25); CALCIUM 9.2 mg/dL (8.4-10.2); CARBON DIOXIDE 36 mmol/L (22-29); CHLORIDE 99 mmol/L (98-107); CREATININE, SERUM 0.69 mg/dL (0.72-1.25); EST GLOMERULAR FILTRATION RATE > 60 ML/MIN (60-); GLUCOSE 101 mg/dL (74-118); POTASSIUM 4.6 mmol/L (3.5-5.1); SODIUM 141 mmol/L (136-145)
[2018-04-03] MEDS: BUDESONIDE/FORMOTEROL 160/4.5MCG INHALER INH SCH ×2 (07:01→14:55)
[2018-04-03] MEDS: ASPIRIN 81 MG ENTERIC COATED PO SCH (09:18)
[2018-04-03] MEDS: FAMOTIDINE 20 MG TAB PO SCH ×2 (09:19→16:26)
[2018-04-03] MEDS: HEPARIN SOD (PORCINE) 5,000 UNIT/ML VIAL SC SCH ×2 (09:19→20:34)
[2018-04-03] MEDS: CITALOPRAM HYDROBROMIDE 20 MG TAB PO SCH (09:19)
[2018-04-03] MEDS: LISINOPRIL 2.5 MG TAB PO SCH (09:19)
[2018-04-03] MEDS: CLOPIDOGREL BISULFATE 75 MG TAB PO SCH (09:19)
[2018-04-03] MEDS: ISOSORBIDE MONONITRATE 30 MG TAB CR PO SCH (09:19)
--- NOTE | 2018-04-03 15:25 | Progress Note ---
DATE: April 03, 2018 CARDIOLOGY PROGRESS NOTE SUBJECTIVE: Patient has intermittent chest pain, mild shortness of breath. OBJECTIVE VITAL SIGNS: Temperature is 96.5, heart rate is 83, respirations are 20, blood pressure is 117/62, oxygen saturation 97% on 3 liters nasal cannula. GENERALLY: A chronically ill-appearing elderly man, no apparent distress. CARDIOVASCULAR: He is irregularly irregular. LUNGS: Clear to auscultation. ABDOMEN: Soft, nontender. EXTREMITIES: No edema. VASCULAR: 2+ pulses. NEUROLOGIC: No focal deficits noted. Laboratory data reviewed. Inpatient cardiovascular medications reviewed. CT angiography of the coronaries showed an anomalous left anterior descending coronary artery arising from the right sinus of Valsalva coursing in between the aorta and the proximal pulmonary artery/right ventricular outflow tract. IMPRESSION 1. Anomalous left anterior descending coronary artery taking an interarterial course. 2. Vhghy-xc-dxikqed systolic congestive heart failure. 3. Chronic obstructive pulmonary disease. 4. Hyperlipidemia. 5. Hypertension. 6. Pacemaker. 7. Atrial fibrillation. RECOMMENDATIONS: The patient has continued chest pain with an anomalous coronary artery taking an interarterial course. This is a rare condition; however, could predispose him to sudden cardiac . Will obtain a stress test to evaluate for any anterior ischemia. If the patient does have ischemia, likely bypass surgery would correct his condition. Otherwise, continue all current cardiovascular medications and closely monitor. Job#: [id number] EV
[2018-04-03] MEDS ORDERED: REGADENOSON 0.4 MG/5 ML SYR IV ONE (15:37)
--- NOTE | 2018-04-03 17:12 | Consultation ---
DATE OF CONSULTATION: April 03, 2018 PSYCHIATRIC CONSULTATION REASON FOR CONSULTATION: Evaluate the patient's mood. HISTORY OF PRESENT ILLNESS: The patient is a 62-year-old man admitted to the hospital for recent chest pain. Psychiatric consultation is called to evaluate the patient's mood. As per the medical record, the patient came to the ER for complaint of chest pain. He resides at [facility]. The patient recently was at [facility] with similar complaint. PAST MEDICAL HISTORY: Includes hypertension, CAD, and pacemaker. Upon evaluation today, the patient is found to be in the room sitting up in the bed. He is alert, awake and oriented to situation. The patient states that he is here for chest pain. He is calm, pleasant and cooperative. He denies depression or anxiety. He denies any suicidal or homicidal ideation. He denies any hallucinations. He denies any feeling hopeless or helpless. He claims that he is sleeping and eating well. As per nursing staff, he gets anxious easily. He hyperventilates at times. He has been medically cleared to be sent back to [facility]. PAST PSYCHIATRIC HISTORY: The patient denies past psychiatric history. He has 2 medications for mood of Remeron and Celexa. He denies past suicide attempts. He denies drug use, but admits to drinking alcohol occasionally. As per record, the patient does have a history of alcohol abuse. FAMILY HISTORY: Denies. SOCIAL HISTORY: The patient lives at [facility]. MENTAL STATUS EXAMINATION GENERAL: The patient is an elderly male. He is alert, awake and oriented to situation. His mood is anxious. Affect is blunt. Psychomotor status is passive. Denies suicide or homicidal ideations. Denies any hallucinations. He is calm, pleasant and no delusions or paranoia elicited. Thought process is concrete. Insight and judgment are fair. Memory appears to be forgetful. CURRENT MEDICATIONS 1. Morphine. 2. Symbicort. 3. Albuterol. 4. Heparin. 5. Famotidine. 6. Celexa 20 mg p.o. daily. 7. Plavix. 8. Lisinopril. 9. Imdur. 10. Aspirin. 11. Remeron 15 mg p.o. at bedtime. 12. Loratadine. 13. Atorvastatin. 14. Atrovent. 15. Nitroglycerin. 16. Clonidine. LABS: WBC 13.37, RBC 4.24, hemoglobin 12.3, hematocrit 40.6, and platelets are 134,000. Sodium 131, potassium 4.6, chloride 99, CO2 36, BUN 13, creatinine is 0.69. ASSESSMENT: Major depression, recurrent, mild and chronic anxiety disorder. PLAN: Add Ativan 0.5 mg p.o. q.6 h. p.r.n. Continue with Remeron 15 mg p.o. at bedtime. Continue with Celexa 20 mg p.o. daily. Supportive therapy. Monitor for mood. The patient is cleared from a psychiatric standpoint. Thank you for this consultation. DICTATED BY DEVENDRA HOUSER Job#: [id number] RI
[2018-04-03] MEDS ORDERED: LORAZEPAM 0.5 MG TAB PO PRN (17:30)
[2018-04-03] MEDS: LORATADINE 10 MG TAB PO SCH (20:36)
[2018-04-03] MEDS: ATORVASTATIN 20 MG TAB PO SCH (20:36)
[2018-04-03] MEDS: MIRTAZAPINE 15 MG TAB PO SCH (20:36)
[2018-04-04] VITALS (8 sets, daily range): BP systolic 98–161; BP diastolic 63–86
[2018-04-04] MEDS: MORPHINE SULFATE 2 MG/ML SYR IV PRN ×2 (01:58→07:52)
[2018-04-04] MEDS: ALBUTEROL/IPRATROPIUM 3 ML NEB NEB SCH ×4 (02:30→20:00)
[2018-04-04] MEDS: BUDESONIDE/FORMOTEROL 160/4.5MCG INHALER INH SCH ×2 (07:51→20:00)
[2018-04-04] MEDS: HEPARIN SOD (PORCINE) 5,000 UNIT/ML VIAL SC SCH ×2 (08:03→21:56)
[2018-04-04] MEDS: FAMOTIDINE 20 MG TAB PO SCH ×2 (09:00→16:22)
[2018-04-04] MEDS: ASPIRIN 81 MG ENTERIC COATED PO SCH (09:00)
[2018-04-04] MEDS: ISOSORBIDE MONONITRATE 30 MG TAB CR PO SCH (16:22)
[2018-04-04] MEDS: LISINOPRIL 2.5 MG TAB PO SCH (16:22)
[2018-04-04] MEDS: CITALOPRAM HYDROBROMIDE 20 MG TAB PO SCH (16:22)
[2018-04-04] MEDS: CLOPIDOGREL BISULFATE 75 MG TAB PO SCH (16:22)
--- NOTE | 2018-04-04 17:56 | Progress Note ---
DATE: April 04, 2018 CARDIOLOGY PROGRESS NOTE SUBJECTIVE: Patient feels overall better, reports some atypical pain in his chest and shortness of breath. OBJECTIVE VITAL SIGNS: Temperature is 98.0, heart rate is 72, respirations are 20, blood pressure is 115/80, ox saturation 97% on 3 liters nasal cannula. GENERAL: Chronically ill appearing, no apparent distress. CARDIOVASCULAR: Regular rate. LUNGS: Diminished breath sounds with wheezing. ABDOMEN: Soft, nontender. EXTREMITIES: Diminished pulses. NEUROLOGICAL: No focal deficits noted. All laboratory data and medications reviewed. Nuclear stress test with myocardial perfusion imaging today revealed no evidence of reversible anterior ischemia with a normal left ventricular ejection fraction of 66%. IMPRESSION 1. Anomalous coronary artery. 2. Coronary artery disease. 3. Uhelw-cz-xqiamkw systolic congestive heart failure. 4. Chronic obstructive pulmonary disease. 5. Hyperlipidemia. 6. Hypertension. 7. Atrial fibrillation. 8. Pacemaker. RECOMMENDATIONS: This patient has atypical symptoms. His stress test today showed no anterior ischemia. Patient would benefit from medical management only at this point in time. Bypass surgery is not indicated as there is no inducible ischemia. We will recommend reinitiation of his anticoagulant for his atrial fibrillation with aspirin alone. Otherwise, continue all current cardiovascular medications. Job#: [id number] LPA
[2018-04-04] MEDS: NITROGLYCERIN 0.4 MG SUBL SL PRN (20:56)
[2018-04-04] MEDS: HYDROCODONE/APAP 5MG-325MG TAB PO PRN (20:56)
[2018-04-04] MEDS: LORATADINE 10 MG TAB PO SCH (22:01)
[2018-04-04] MEDS: ATORVASTATIN 20 MG TAB PO SCH (22:01)
[2018-04-04] MEDS: MIRTAZAPINE 15 MG TAB PO SCH (22:01)
[2018-04-05] VITALS (10 sets, daily range): BP systolic 95–114; BP diastolic 58–84
[2018-04-05] MEDS: ALBUTEROL/IPRATROPIUM 3 ML NEB NEB SCH ×4 (01:45→19:45)
[2018-04-05] MEDS: ASPIRIN 81 MG ENTERIC COATED PO SCH (08:30)
[2018-04-05] MEDS: ISOSORBIDE MONONITRATE 30 MG TAB CR PO SCH (08:30)
[2018-04-05] MEDS: LISINOPRIL 2.5 MG TAB PO SCH (08:30)
[2018-04-05] MEDS: FAMOTIDINE 20 MG TAB PO SCH ×2 (08:30→18:31)
[2018-04-05] MEDS: CITALOPRAM HYDROBROMIDE 20 MG TAB PO SCH (08:30)
[2018-04-05] MEDS: CLOPIDOGREL BISULFATE 75 MG TAB PO SCH (08:30)
[2018-04-05] MEDS: BUDESONIDE/FORMOTEROL 160/4.5MCG INHALER INH SCH ×2 (09:00→19:45)
[2018-04-05] MEDS: HYDROCODONE/APAP 5MG-325MG TAB PO PRN (14:40)
[2018-04-05 16:09] LABS: BASOPHILS % 0.3 % (0.0-1.0); EOSINOPHILS # (AUTO) 0.1 (0.0-0.4); EOSINOPHILS % 1.1 % (0.0-6.0); HEMATOCRIT 36.7 % (38.2-49.6); LYMPHOCYTES # (AUTO) 1.1 (1.0-3.2); MEAN CORPUSCULAR HEMOGLOBIN 28.4 pg (28-32); MEAN CORPUSCULAR VOLUME 94.8 fL (81-99); MONOCYTES # (AUTO) 0.9 (0.2-0.8); MONOCYTES % 9.1 % (4.4-11.3); NEUTROPHILS # (AUTO) 7.5 (2.1-6.9); PLATELET COUNT 177 x10e3/uL (140-360); RED BLOOD COUNT 3.87 x10e6/uL (4.3-5.7); RED CELL DISTRIBUTION WIDTH 13.1 % (11.7-14.4)
[2018-04-05 16:17] LABS: ABG PH 7.33 (7.31-7.41)
[2018-04-05 16:19] LABS: ABG HCO3 36 mmol/L (23-28); ABG PCO2 68 mmHg (41-51); ABG PO2 109 mmHg (80-105)
[2018-04-05 16:25] LABS: ANION GAP 11.5 mmol/L (8-16); BLOOD UREA NITROGEN 10 mg/dL (7-26); BUN/CREATININE RATIO 15 (6-25); CALCIUM 8.8 mg/dL (8.4-10.2); CARBON DIOXIDE 32 mmol/L (22-29); CHLORIDE 95 mmol/L (98-107); CREATININE, SERUM 0.65 mg/dL (0.72-1.25); EST GLOMERULAR FILTRATION RATE > 60 ML/MIN (60-); GLUCOSE 114 mg/dL (74-118); POTASSIUM 4.5 mmol/L (3.5-5.1); SODIUM 134 mmol/L (136-145)
[2018-04-05 16:27] LABS: INR 0.86; PROTHROMBIN TIME 12.5 seconds (11.9-14.5)
--- NOTE | 2018-04-05 16:40 | Progress Note ---
DATE: April 05, 2018 CARDIOLOGY PROGRESS NOTE SUBJECTIVE: Patient is severely short of breath after returning from the bathroom. Had a bloody bowel movement. Reports chest tightness and severe shortness of breath. OBJECTIVE VITAL SIGNS: Temperature is 97.8, heart rate is 73, respirations are 35 to 40, blood pressure is 95/62, oxygen saturation is 92% on 2 liter nasal cannula. GENERAL: He is an elderly man, sited at bedside, appears severely short of breath, tachypneic. CARDIOVASCULAR: Regular rate and rhythm. LUNGS: Diminished air entry on bilateral lung galvan with scattered wheezes. Tachypnea is present. ABDOMEN: Soft, nontender. EXTREMITIES: No edema. LABORATORY DATA: Reviewed. MEDICATIONS: Reviewed. IMPRESSION 1. Shortness of breath. 2. Tqsmg-qb-bmxpyto systolic congestive heart failure. 3. Chronic obstructive pulmonary disease with exacerbation. 4. Anomalous coronary artery. 5. Nonobstructive coronary artery disease. 6. Hyperlipidemia. 7. Hypertension. 8. Atrial fibrillation. 9. Permanent pacemaker implantation. RECOMMENDATIONS: Patient appears severely dyspneic and has decreased air entry. Will recommend non-invasive positive pressure ventilation, bronchodilators, and continuation of the steroids. Will check a chest x-ray and all basic lab panels. Will also check an ABG. Patient did have a bloody bowel movement, so avoid anticoagulation at this point in time. Sent for a CBC. In regards to his coronary artery disease, patient has anomalous coronary artery, which takes intra-arterial approach; however, there was no anterior ischemia noted on stress test, so no surgical intervention is required at this point in time. Job#: [id number] GANESH
--- NOTE | 2018-04-05 16:59 | Diagnostic Imaging Report ---
EXAMINATION: CHEST SINGLE (PORTABLE) INDICATION: Bronchitis. COMPARISON: 03/26/2018 FINDINGS: AP view TUBES and LINES: Right upper extremity PICC tip projected on the high SVC, unchanged.. Dual-lead cardiac pacemaker again observed. LUNGS: Mild patchy density in the lung bases suggestive of subsegmental atelectasis. PLEURA: Trace right pleural effusion. No pneumothorax. HEART AND MEDIASTINUM: The cardiomediastinal silhouette is stable. BONES AND SOFT TISSUES: No acute osseous lesion. Soft tissues are unremarkable. UPPER ABDOMEN: No free air under the diaphragm. IMPRESSION: Bibasilar subsegmental atelectasis. Signed by: Dr. Dante Shine M.D. on 04/05/2018 4:55 PM
[2018-04-05] MEDS: METHYLPREDNISOLONE SOD SUCC 40 MG/ML VIAL IV SCH ×2 (18:31→20:34)
--- NOTE | 2018-04-05 19:21 | Diagnostic Imaging Report ---
Ventilation/perfusion lung scan Clinical Information: 62 M with bronchitis, tachypnea and chest pain Comparison: Chest radiograph 04/05/2018 Discussion: Xenon-133 gas 11 mCi was administered via inhalation. Dynamic images of the lungs in the posterior projection were obtained through single breath, equilibrium, and washout phases. Distribution of tracer activity is very irregular throughout the lungs. There are no segmental ventilatory defects. Washout of tracer is diffusely delayed with diffuse air trapping. Perfusion images of the lungs were obtained in multiple projections following intravenous administration of approximately 7 mCi of Tc-99m MAA. Distribution of tracer is very irregular throughout the lungs. The contours of the lungs are well demarcated. There are no segmental perfusion defects of any size. The cardiomediastinal silhouette is unremarkable. Impression: Scan findings represent a VERY LOW probability for acute pulmonary embolic disease based on the PIOPED II criteria. Scan evidence of severe obstructive lung disease. Signed by: Dr. Summer Gomes M.D. on 04/05/2018 7:18 PM
[2018-04-05] MEDS: NITROGLYCERIN 0.4 MG SUBL SL PRN (20:33)
[2018-04-05] MEDS: ATORVASTATIN 20 MG TAB PO SCH (20:34)
[2018-04-05] MEDS: LORATADINE 10 MG TAB PO SCH (20:34)
[2018-04-05] MEDS: MIRTAZAPINE 15 MG TAB PO SCH (20:34)
[2018-04-05] MEDS ORDERED: ASPIRIN 81 MG CHEW TAB PO ONE (21:15)
[2018-04-05] MEDS ORDERED: MORPHINE SULFATE 2 MG/ML SYR IV ONE (21:15)
[2018-04-05] MEDS ORDERED: MORPHINE SULFATE INJ 4 MG/ML INJ ONE (21:19)
[2018-04-05 23:04] LABS: CREATINE KINASE MB 1.7 ng/mL (0-5.0)
[2018-04-06] MEDS: ALBUTEROL/IPRATROPIUM 3 ML NEB NEB SCH ×6 (01:00→19:45)
[2018-04-06] MEDS: LORAZEPAM 0.5 MG TAB PO PRN ×3 (01:41→23:35)
[2018-04-06] MEDS ORDERED: ASPIRIN 81 MG CHEW TAB PO ONE (02:30)
[2018-04-06 04:10] VITALS: BP 133/87
[2018-04-06 04:38] LABS: HEMATOCRIT 37.7 % (38.2-49.6); HEMOGLOBIN 11.5 g/dL (14.0-18.0); LYMPHOCYTES # (AUTO) 0.3 (1.0-3.2); LYMPHOCYTES % 5.8 % (18.0-39.1); MEAN CORPUSCULAR HEMOGLOBIN 28.8 pg (28-32); MEAN CORPUSCULAR HGB CONC 30.5 g/dL (31-35); MEAN CORPUSCULAR VOLUME 94.5 fL (81-99); MONOCYTES % 0.8 % (4.4-11.3); NEUTROPHILS # (AUTO) 4.9 (2.1-6.9); NEUTROPHILS % 92.8 % (38.7-80.0); PLATELET COUNT 179 x10e3/uL (140-360); RED BLOOD COUNT 3.99 x10e6/uL (4.3-5.7); RED CELL DISTRIBUTION WIDTH 12.9 % (11.7-14.4)
[2018-04-06 04:57] LABS: ANION GAP 11.7 mmol/L (8-16); BLOOD UREA NITROGEN 8 mg/dL (7-26); BUN/CREATININE RATIO 12 (6-25); CALCIUM 9.1 mg/dL (8.4-10.2); CARBON DIOXIDE 33 mmol/L (22-29); CHLORIDE 97 mmol/L (98-107); CREATININE, SERUM 0.66 mg/dL (0.72-1.25); EST GLOMERULAR FILTRATION RATE > 60 ML/MIN (60-); GLUCOSE 162 mg/dL (74-118); POTASSIUM 4.7 mmol/L (3.5-5.1); SODIUM 137 mmol/L (136-145)
[2018-04-06 05:41] LABS: CREATINE KINASE MB 1.7 ng/mL (0-5.0)
[2018-04-06 08:18] VITALS: BP 104/64
[2018-04-06] MEDS: ASPIRIN 81 MG ENTERIC COATED PO SCH (08:54)
[2018-04-06] MEDS: FAMOTIDINE 20 MG TAB PO SCH ×2 (08:54→16:02)
[2018-04-06] MEDS: CLOPIDOGREL BISULFATE 75 MG TAB PO SCH (08:54)
[2018-04-06] MEDS: CITALOPRAM HYDROBROMIDE 20 MG TAB PO SCH (08:54)
[2018-04-06] MEDS: BUDESONIDE/FORMOTEROL 160/4.5MCG INHALER INH SCH ×2 (09:00→19:45)
[2018-04-06] MEDS: NICOTINE 7 MG PATCH TOP SCH (09:00)
[2018-04-06] MEDS: ISOSORBIDE MONONITRATE 30 MG TAB CR PO SCH (09:30)
[2018-04-06] MEDS: LISINOPRIL 2.5 MG TAB PO SCH (09:30)
[2018-04-06 12:00] VITALS: BP 116/82
[2018-04-06 12:02] VITALS: BP 116/82
[2018-04-06] MEDS: PREDNISONE 20 MG TAB PO SCH (12:25)
--- NOTE | 2018-04-06 13:49 | Cardiology Report ---
DATE OF STUDY: April 04, 2018 PROCEDURE TITLE: Rest stress and single isotope SPECT imaging with pharmacologic stress and gated SPECT imaging. INDICATIONS: Chest pain. PROCEDURE: Pharmacologic stress testing was performed with regadenoson per protocol. The heart rate was 73 beats per minute at rest and increased to 76 beats per minute during the regadenoson infusion. The rest blood pressure was 147/106 mmHg and increased to 168/113 mmHg, which is a normal response. The resting electrocardiogram demonstrated ventricular paced rhythm. There were no ST-segment changes consistent with myocardial ischemia. Myocardial perfusion imaging was performed at rest following the injection of 11 mCi of tetrofosmin. At peak pharmacologic effect, the patient was injected with 33 mCi of tetrofosmin. Gated post rest tomographic imaging was performed. Next, the overall quality of study is fair. Attenuation artifact is absent. Left ventricular cavity is noted to be normal size on the rest and stress studies. SPECT images demonstrate homogenous tracer distribution throughout the myocardium. Gated SPECT imaging reveals normal myocardial thickening and wall motion. The left ventricular ejection fraction was calculated at 66%. IMPRESSION: Myocardial perfusion imaging is normal. Overall left ventricular systolic motion was normal without regional wall motion abnormalities. Job#: [id number] TN
[2018-04-06 16:02] VITALS: BP 120/82
[2018-04-06] MEDS: HYDROCODONE/APAP 5MG-325MG TAB PO PRN (16:15)
--- NOTE | 2018-04-06 16:51 | Progress Note ---
DATE: April 06, 2018 CARDIOLOGY PROGRESS NOTE SUBJECTIVE: Patient is short of breath; however, improved from yesterday. Denies any chest pain. OBJECTIVE VITAL SIGNS: Temperature is 98.7, heart rate is 74, respirations are 19, blood pressure is 116/82, oxygen saturation 98% on 4 liters nasal cannula. GENERALLY: He is a chronically ill-appearing man seated at bedside, mildly in respiratory distress. HEAD: Normocephalic, atraumatic. NECK: No jugular venous distention. CARDIOVASCULAR: Irregular rhythm. LUNGS: Diminished breath sounds on the air entry. Scattered wheezes. ABDOMEN: Soft, nontender. EXTREMITIES: No edema. All cardiovascular medications, laboratory values, telemetry monitoring, and imaging data were reviewed. IMPRESSION 1. Smxnu-wx-zbjaafb obstructive pulmonary disease exacerbation. 2. Vcimw-bm-bnbfffb systolic congestive heart failure. 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 4. Nonobstructive coronary artery disease. 5. Hyperlipidemia. 6. Hypertension. 7. Atrial fibrillation. 8. Permanent pacemaker. RECOMMENDATIONS: The patient's breathing status has improved. Will defer all other COPD therapies to primary team. ABG checked yesterday showed hypercapnia; however, improved with noninvasive positive pressure ventilation. Patient is stable from a cardiovascular standpoint, and recent troponins checked during his acute respiratory distress episode were within normal limits. Continue dual antiplatelet therapy. However, may consider avoiding anticoagulation given recent bloody bowel movement. Again, previously stated that the patient has anomalous coronary artery which takes possibly an intra-arterial approach; however, no anterior ischemia was noted on stress test. Continue all other current cardiovascular medications and monitor closely on telemetry. Job#: [id number] EV
[2018-04-06 20:00] VITALS: BP 120/81
[2018-04-06] MEDS: LORATADINE 10 MG TAB PO SCH (20:07)
[2018-04-06] MEDS: MIRTAZAPINE 15 MG TAB PO SCH (20:07)
[2018-04-06] MEDS: ATORVASTATIN 20 MG TAB PO SCH (20:07)
[2018-04-07] VITALS (7 sets, daily range): BP systolic 112–141; BP diastolic 74–92
[2018-04-07] MEDS: ALBUTEROL/IPRATROPIUM 3 ML NEB NEB SCH ×7 (00:15→23:25)
[2018-04-07] MEDS: HYDROCODONE/APAP 5MG-325MG TAB PO PRN ×2 (05:07→10:43)
[2018-04-07] MEDS: BUDESONIDE/FORMOTEROL 160/4.5MCG INHALER INH SCH ×2 (07:45→19:00)
--- NOTE | 2018-04-07 08:08 | Progress Note ---
DATE: April 06, 2018 PSYCHIATRIC PROGRESS NOTE Patient evaluated and events noted. The patient is in the room. He is eating. He is calm, pleasant and cooperative. The patient's discharge was held due to his respiratory distress. He states he is doing well right now. He reports being less anxious. Denies anxiety at this time. Denies any depression, suicidal ideation or hallucinations. He reports eating and sleeping well. He is taking his medications and denies any side effects. ASSESSMENT: Major depressive disorder, recurrent, mild to moderate; anxiety disorder. PLAN 1. Continue Ativan 0.5 mg p.o. q.6 h. p.r.n. 2. Continue Remeron 15 mg p.o. at bedtime. 3. Continue Celexa 20 mg p.o. daily. 4. Supportive therapy. 5. Monitor for mood. Thank you for this consultation. Dictated by: DEVENDRA Reynoso Job#: [id number]
[2018-04-07] MEDS: LISINOPRIL 2.5 MG TAB PO SCH (08:30)
[2018-04-07] MEDS: CLOPIDOGREL BISULFATE 75 MG TAB PO SCH (08:30)
[2018-04-07] MEDS: CITALOPRAM HYDROBROMIDE 20 MG TAB PO SCH (08:30)
[2018-04-07] MEDS: NICOTINE 7 MG PATCH TOP SCH (08:30)
[2018-04-07] MEDS: FAMOTIDINE 20 MG TAB PO SCH ×2 (08:30→16:41)
[2018-04-07] MEDS: PREDNISONE 20 MG TAB PO SCH ×2 (08:30→12:31)
[2018-04-07] MEDS: ASPIRIN 81 MG ENTERIC COATED PO SCH (08:30)
[2018-04-07] MEDS: ISOSORBIDE MONONITRATE 30 MG TAB CR PO SCH (08:30)
[2018-04-07] MEDS: LORAZEPAM 0.5 MG TAB PO PRN (09:15)
[2018-04-07] MEDS ORDERED: PREDNISONE20 MG PO (13:42)
--- NOTE | 2018-04-07 14:36 | Discharge Summary ---
Patient of Dr. Perla, Dr. Sami Beck, Dr. Bush. The patient was discharged to the [facility] assisted-living. History of very severe obstructive pulmonary disease with an FEV1 of only 0.64 L, 17% of predicted. He was admitted on March 23, 2018. A 62 year old. He has a history of smoking and continues to smoke. He has been advised to discontinue this. History of coronary disease, apparently declined coronary bypass surgery, history of AICD defibrillator. He was seen by Dr. Beck and Dr. Bush. He has a history of end-stage COPD. Underwent evaluation by Dr. Beck and was found to have severe coronary disease with anomalous coronary artery of the left anterior descending from the right coronary cusp. Surgery was not felt to be indicated. Chronic and acute heart failure and hyperlipidemia. Decision was made to change his coagulation. He was placed on Plavix. Continued on nasal oxygen. He did have an episode of apparent acute exacerbation of COPD in the hospital and was treated with corticosteroids, as well as bronchodilators. He was checked for pulmonary emboli and V/Q scan was low probability. Dual antiplatelet agent was recommended. He had a bloody bowel movement, and decision was made to defer Coumadin therapy. He was discharged to continue supplemental oxygen. A portable unit was recommended and this is pending. Brief course of cortical steroids. He may continue his: 1. Tylenol No. 3 as needed for back pain. 2. ProAir inhaler. 3. Aspirin 81. 4. Lipitor 20. 5. Symbicort 164.5 mg 2 puffs b.i.d. 6. Zyrtec 10 mg at night. 7. Celexa 20 for depression. 8. Plavix 75. 9. Pepcid 20 b.i.d. 10. Lasix 20 b.i.d. 11. Lisinopril 2.5. 12. Mirtazapine 50 mg at night. Hemoglobin was stable. GI opinion is still pending. He may follow up with a car designer as an outpatient. White count fell from 16.9 to 5.3. Hemoglobin remains relatively stable at 11.5. AXEL STEWART MD Job#: [id number] RI
--- NOTE | 2018-04-07 15:02 | Pulmonary Function Test ---
DATE OF STUDY: April 06, 2018 SPIROMETRY REPORT Pre and post bronchodilators. Forced vital capacity 1.26 liters, 25% of predicted. FEV1 0.64 liters, 17% of predicted. FEV-1 FVC ratio 51%. FEF 25:75 13%. Consistent with very severe obstructive pulmonary disease. There was significant improvement following inhalation of bronchodilators, 13% in FVC and 6% in FEV1 to 0.68 liters. Very severe obstructive pulmonary disease. Improvement in FVC following inhalation of bronchodilators. Job#: [id number] EV
--- NOTE | 2018-04-07 16:35 | Progress Note ---
DATE: April 07, 2018 CARDIOLOGY PROGRESS NOTE SUBJECTIVE: Patient overall feels better than yesterday. Had an atypical chest pain episode this morning, which was relieved with [place]. Reports chronic shortness of breath. OBJECTIVE VITAL SIGNS: Temperature is 98.7, heart rate is 64, respirations are 18, blood pressure is 117/78, oxygen saturation is 96% on 3 liters nasal cannula. GENERALLY: He is a chronically ill-appearing man, in no apparent distress. CARDIOVASCULAR: Regular rate and rhythm. LUNGS: Diminished air entry. Scattered wheezes. ABDOMEN: Soft, nontender. EXTREMITIES: No edema. NEUROLOGIC: No focal deficits noted. Current cardiovascular medications reviewed. IMAGING DATA: Reviewed. LABORATORY TESTS: Reviewed. IMPRESSIONS 1. Xpail-gd-nnvmqzp obstructive pulmonary disease exacerbation. 2. Lkpef-yy-ncxtfyk systolic congestive heart failure. 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 4. Nonobstructive coronary artery disease. 5. Hyperlipidemia. 6. Hypertension. 7. Atrial fibrillation. 8. Permanent pacemaker. RECOMMENDATIONS: The patient is stable for discharge from a cardiovascular standpoint. Continue current cardiovascular medications. No surgical intervention is needed as the patient has no anterior ischemia. Medical management is recommended. Job#: [id number] DEDE
[2018-04-07] MEDS: MORPHINE SULFATE INJ 4 MG/ML INJ IV PRN (19:44)
[2018-04-07] MEDS ORDERED: MORPHINE SULFATE 2 MG/ML SYR IV PRN (19:45)
[2018-04-07 20:42] LABS: CREATINE KINASE MB 3.2 ng/mL (0-5.0)
[2018-04-07] MEDS: MIRTAZAPINE 15 MG TAB PO SCH (20:50)
[2018-04-07] MEDS: LORATADINE 10 MG TAB PO SCH (20:50)
[2018-04-07] MEDS: ATORVASTATIN 20 MG TAB PO SCH (20:50)
[2018-04-08] VITALS (8 sets, daily range): BP systolic 106–145; BP diastolic 78–92
[2018-04-08] MEDS: HYDROCODONE/APAP 5MG-325MG TAB PO PRN ×2 (01:49→16:26)
[2018-04-08] MEDS: ALBUTEROL/IPRATROPIUM 3 ML NEB NEB SCH ×7 (02:50→23:30)
[2018-04-08 04:52] LABS: CREATINE KINASE MB 3.2 ng/mL (0-5.0)
[2018-04-08] MEDS: BUDESONIDE/FORMOTEROL 160/4.5MCG INHALER INH SCH ×2 (07:45→19:20)
[2018-04-08] MEDS: ASPIRIN 81 MG ENTERIC COATED PO SCH (08:42)
[2018-04-08] MEDS: CITALOPRAM HYDROBROMIDE 20 MG TAB PO SCH (08:42)
[2018-04-08] MEDS: NICOTINE 7 MG PATCH TOP SCH (08:43)
[2018-04-08] MEDS: CLOPIDOGREL BISULFATE 75 MG TAB PO SCH (08:43)
[2018-04-08] MEDS: FAMOTIDINE 20 MG TAB PO SCH ×2 (08:43→16:58)
[2018-04-08] MEDS: LISINOPRIL 2.5 MG TAB PO SCH (08:43)
[2018-04-08] MEDS: ISOSORBIDE MONONITRATE 30 MG TAB CR PO SCH (08:43)
--- NOTE | 2018-04-08 15:12 | Progress Note ---
DATE: April 08, 2018 PSYCHIATRIC PROGRESS NOTE Patient evaluated and events noted. Patient is in the room. He is alert, awake and oriented to situation. Patient stated he is doing fair. He is having intermittent anxiety. He denies any depression. He denies any suicidal ideation. He denies any hallucinations. He reports sleeping well. He is taking his medication, and he denies any side effects. ASSESSMENT: Major depressive disorder, recurrent, mild to moderate; anxiety disorder. PLAN 1. Continue with Ativan p.r.n. p.o. 2. Continue with Remeron 50 mg p.o. nightly. 3. Continue with Celexa 20 mg p.o. daily. 4. Supportive therapy. 5. Monitor for mood. Dictated by: DEVENDRA Reynoso Job#: [id number] EV
--- NOTE | 2018-04-08 15:30 | Progress Note ---
DATE: April 08, 2018 PSYCHIATRIC PROGRESS NOTE Patient evaluated and events noted. Patient is in the room. He is alert and oriented to situation. He is reporting anxiety at times. He is getting 2 mg of Ativan medication. He denies any depression. Denies any suicidal ideation. He denies any hallucinations. He reports he is eating well. Nursing staff reports that the patient has been cleared by medical for possible discharge. ASSESSMENT 1. Major depression disorder, mild to moderate. 2. Anxiety. PLAN: Continue Ativan p.r.n. Add Ativan 0.5 mg p.o. q.12 h. Continue with Remeron. Continue Celexa. Supportive therapy. Monitor for mood. DICTATED BY DEVENDRA HOUSER Job#: [id number] JENNIFER
[2018-04-08] MEDS: LORAZEPAM 0.5 MG TAB PO SCH (16:58)
[2018-04-08] MEDS: ATORVASTATIN 20 MG TAB PO SCH (20:24)
[2018-04-08] MEDS: LORATADINE 10 MG TAB PO SCH (20:24)
[2018-04-08] MEDS: MIRTAZAPINE 15 MG TAB PO SCH (20:24)
[2018-04-08] MEDS: MORPHINE SULFATE INJ 4 MG/ML INJ IV PRN (22:16)
[2018-04-09] VITALS (20 sets, daily range): BP systolic 82–133; BP diastolic 22–95
[2018-04-09] MEDS: LORAZEPAM 0.5 MG TAB PO PRN (01:41)
[2018-04-09] MEDS: ALBUTEROL/IPRATROPIUM 3 ML NEB NEB SCH ×6 (02:55→23:00)
[2018-04-09] MEDS: BUDESONIDE/FORMOTEROL 160/4.5MCG INHALER INH SCH ×2 (07:45→17:00)
[2018-04-09] MEDS: LORAZEPAM 0.5 MG TAB PO SCH ×2 (10:10→17:55)
[2018-04-09] MEDS: ISOSORBIDE MONONITRATE 30 MG TAB CR PO SCH (10:10)
[2018-04-09] MEDS: LISINOPRIL 2.5 MG TAB PO SCH (10:10)
[2018-04-09] MEDS: NICOTINE 7 MG PATCH TOP SCH (10:10)
[2018-04-09] MEDS: MORPHINE SULFATE INJ 4 MG/ML INJ IV PRN ×3 (10:10→20:30)
[2018-04-09] MEDS: CLOPIDOGREL BISULFATE 75 MG TAB PO SCH (10:10)
[2018-04-09] MEDS: PREDNISONE 20 MG TAB PO SCH (10:10)
[2018-04-09] MEDS: ASPIRIN 81 MG ENTERIC COATED PO SCH (10:10)
[2018-04-09] MEDS: FAMOTIDINE 20 MG TAB PO SCH ×2 (10:10→17:55)
[2018-04-09] MEDS: CITALOPRAM HYDROBROMIDE 20 MG TAB PO SCH (10:10)
[2018-04-09] MEDS: HYDROCODONE/APAP 5MG-325MG TAB PO PRN (13:26)
[2018-04-09] MEDS: NITROGLYCERIN 0.4 MG SUBL SL PRN ×4 (16:55→17:45)
[2018-04-09] MEDS: METOPROLOL SUCCINATE 25 MG TAB XL PO SCH (17:55)
[2018-04-09] MEDS: MIRTAZAPINE 15 MG TAB PO SCH (20:31)
[2018-04-09] MEDS: ATORVASTATIN 20 MG TAB PO SCH (20:31)
[2018-04-09] MEDS: LORATADINE 10 MG TAB PO SCH (20:31)
[2018-04-10] VITALS (14 sets, daily range): BP systolic 107–146; BP diastolic 71–111
[2018-04-10] MEDS: LORAZEPAM 0.5 MG TAB PO PRN (00:12)
[2018-04-10] MEDS: MORPHINE SULFATE INJ 4 MG/ML INJ IV PRN ×4 (03:10→18:24)
[2018-04-10] MEDS: ALBUTEROL/IPRATROPIUM 3 ML NEB NEB SCH ×6 (04:02→22:49)
[2018-04-10] MEDS ORDERED: DONNATAL/LIDOCAINE/MAALOX 30 ML SUSP PO ONE (04:15)
[2018-04-10] MEDS ORDERED: BELLADONNA ALK/PHENOBARBITAL 5 ML UDC ONE (04:40)
[2018-04-10] MEDS ORDERED: LIDOCAINE VISC 2% SOLN 15 ML UDC ONE (04:40)
[2018-04-10] MEDS ORDERED: MAGNESIUM/ALUMINUM/SIMETHICONE 30 ML UDC ONE (04:41)
[2018-04-10] MEDS: BUDESONIDE/FORMOTEROL 160/4.5MCG INHALER INH SCH ×2 (07:24→19:17)
--- NOTE | 2018-04-10 08:26 | Progress Note ---
DATE: April 09, 2018 PSYCHIATRIC PROGRESS NOTE Patient evaluated and events noted. Patient is in the room. He is pleasant, calm and cooperative. He appears to be comfortable. He stated he is doing okay. He denies any depression or anxiety. He denies any hallucinations. He denies any suicidal ideation. He is waiting for return to facility, and has a discharge order ready. ASSESSMENT: Major depression disorder, recurrent, mild to moderate; anxiety disorder. PLAN: Continue with Ativan 0.5 mg p.o. q.12 h. Continue with Remeron. Continue with Celexa. Supportive therapy. Monitor for mood. DICTATED BY DEVENDRA HOUSER Job#: [id number] JENNIFER
[2018-04-10] MEDS ORDERED: METOPROLOL SUCC25 MG PO (08:51)
[2018-04-10] MEDS ORDERED: ISMO PO (08:53)
[2018-04-10] MEDS ORDERED: NITROGLYCERIN0.4 MG SL (08:54)
[2018-04-10] MEDS: NITROGLYCERIN 0.1MG/HR PATCH TOP SCH (09:00)
[2018-04-10] MEDS: LISINOPRIL 2.5 MG TAB PO SCH (09:00)
[2018-04-10] MEDS: METOPROLOL SUCCINATE 25 MG TAB XL PO SCH (09:00)
[2018-04-10] MEDS: ISOSORBIDE MONONITRATE 30 MG TAB CR PO SCH (09:00)
[2018-04-10] MEDS: PREDNISONE 20 MG TAB PO SCH (10:11)
[2018-04-10] MEDS: ASPIRIN 81 MG ENTERIC COATED PO SCH (10:11)
[2018-04-10] MEDS: LORAZEPAM 0.5 MG TAB PO SCH ×2 (10:14→18:19)
[2018-04-10] MEDS: CLOPIDOGREL BISULFATE 75 MG TAB PO SCH (10:14)
[2018-04-10] MEDS: CITALOPRAM HYDROBROMIDE 20 MG TAB PO SCH (10:14)
[2018-04-10] MEDS: FAMOTIDINE 20 MG TAB PO SCH ×2 (10:18→18:19)
[2018-04-10] MEDS: NICOTINE 7 MG PATCH TOP SCH (10:21)
[2018-04-10] MEDS ORDERED: PROPOFOL IV EMULSION 10 MG/ML 50 ML VIAL ONE (11:38)
[2018-04-10] MEDS ORDERED: LIDOCAINE HCL 2% LOCAL INJ 5 ML SDV VIAL INJ ONE (11:38)
--- NOTE | 2018-04-10 15:48 | Progress Note ---
DATE: April 10, 2018 CARDIOLOGY PROGRESS NOTE SUBJECTIVE: Patient still reports intermittent atypical chest pain. The patient is scheduled for EGD. Shortness of breath is still present, however, at baseline. OBJECTIVE VITAL SIGNS: Temperature is 98.5. Heart rate is 70. Respirations are 18. Blood pressure is 119/80. Oxygen saturation is 98% on 4 liters nasal cannula. GENERAL: He is a chronically ill-appearing man lying comfortably in bed. CARDIOVASCULAR: Regular rate and rhythm. LUNGS: Decreased air entry. Scattered wheezes. ABDOMEN: Obese, soft, nontender. EXTREMITIES: Trace edema. VASCULAR: Diminished pulses. CARDIOVASCULAR MEDICATIONS: Reviewed. LABORATORY DATA: Reviewed. The patient has had 4 sets of negative cardiac enzymes in the last 3 days. IMPRESSION 1. Jpzgm-tv-pydxnjw obstructive pulmonary disease exacerbation. 2. Tbmgs-ce-tehfwrp systolic congestive heart failure. 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 4. Nonobstructive coronary artery disease. 5. Hyperlipidemia. 6. Hypertension. 7. Atrial fibrillation. 8. Permanent pacemaker. 9. Anemia. RECOMMENDATIONS: This patient is stable for discharge from a cardiovascular standpoint. He has undergone extensive evaluation including an echocardiogram, coronary angiography, CT angiogram of the coronaries, and a Lexiscan nuclear myocardial perfusion study. The patient has no active ischemia in the anterior wall that would correlate with his anomalous left anterior descending coronary artery. Continue current cardiovascular medications. The patient is stable for discharge from a cardiovascular standpoint. Job#: [id number]
--- NOTE | 2018-04-10 18:14 | Operative Report ---
DATE OF PROCEDURE: April 10, 2018 REFERRING PHYSICIAN: Dr. Екатерина Bush MD. PROCEDURE PERFORMED: EGD with biopsies. INDICATIONS FOR PROCEDURE: Non-cardiac chest pain. MEDICATION: Patient was done under MAC. Please see anesthesiologist's note. PROCEDURE: With the patient in the left lateral decubitus position, flexible fiberoptic Olympus gastroscope was introduced into the esophagus under direct visualization without any difficulty. Grade 1 to 2 esophageal varices were noted without active bleeding or stigmata of recent hemorrhage. There was a minute ulcer noted in the mid esophagus without active bleeding or stigmata of recent hemorrhage. The scope was advanced into the distal esophagus and a minute nodule was noted at the GE junction that was biopsied. The scope was advanced with ease into the stomach traversing a small hiatal hernia. Mucosa overlying the antrum and the body revealed some diffuse erythema and moderate edema and biopsies were obtained, sent to stain for H. pylori. Pylorus appeared to be of normal contour and shape, was intubated with ease and the scope was advanced all the way to the second portion of the duodenum. The scope was then withdrawn slowly. Mucosa overlying the proximal second portion and the duodenal bulb appeared to be within normal limits. The scope was then withdrawn back into the stomach and retroflexed and the mucosa overlying the fundus and the cardia appeared to be within normal limits. The scope was then straightened out and was subsequently withdrawn. Patient tolerated the procedure well. IMPRESSION 1. Esophageal varices, grade 1 to 2 without active bleeding or stigmata of recent hemorrhage. 2. Minute ulcer mid esophagus. 3. Minute nodule gastroesophageal junction, biopsied. 4. Small hiatal hernia. 5. Gastritis, biopsied. Biopsies sent to stain for H. pylori. PLAN: Follow up histology. Initiate Protonix 40 mg 1 p.o. a c. b.i.d. Check hepatic panel. Check ultrasound of the liver. Job#: [id number] RTY cc:MD AXEL SPRINGER MD BENJAMIN METZ, DO
[2018-04-10] MEDS: PANTOPRAZOLE 40 MG 10ML VIAL IV SCH (18:19)
[2018-04-10] MEDS ORDERED: FENTANYL CITRATE/PF 100MCG/2 ML INJ ONE (20:00)
[2018-04-10] MEDS: LORATADINE 10 MG TAB PO SCH (20:39)
[2018-04-10] MEDS: MIRTAZAPINE 15 MG TAB PO SCH (20:39)
[2018-04-10] MEDS: ATORVASTATIN 20 MG TAB PO SCH (20:39)
[2018-04-11] MEDS: ALBUTEROL/IPRATROPIUM 3 ML NEB NEB SCH ×6 (03:15→22:53)
[2018-04-11 04:34] VITALS: BP 124/83
[2018-04-11] MEDS: MORPHINE SULFATE INJ 4 MG/ML INJ IV PRN (06:40)
[2018-04-11 07:08] VITALS: BP 133/94
[2018-04-11] MEDS: PREDNISONE 20 MG TAB PO SCH (07:44)
[2018-04-11] MEDS: FAMOTIDINE 20 MG TAB PO SCH ×2 (08:58→17:02)
[2018-04-11] MEDS: PANTOPRAZOLE 40 MG 10ML VIAL IV SCH ×2 (08:58→17:02)
[2018-04-11] MEDS: CITALOPRAM HYDROBROMIDE 20 MG TAB PO SCH (08:59)
[2018-04-11] MEDS: ASPIRIN 81 MG ENTERIC COATED PO SCH (09:00)
[2018-04-11] MEDS: NICOTINE 7 MG PATCH TOP SCH (09:01)
[2018-04-11] MEDS: CLOPIDOGREL BISULFATE 75 MG TAB PO SCH (09:02)
[2018-04-11] MEDS: ISOSORBIDE MONONITRATE 30 MG TAB CR PO SCH (09:03)
[2018-04-11] MEDS: LISINOPRIL 2.5 MG TAB PO SCH (09:05)
[2018-04-11] MEDS: METOPROLOL SUCCINATE 25 MG TAB XL PO SCH (09:05)
--- NOTE | 2018-04-11 09:17 | Diagnostic Imaging Report ---
ADDENDUM #1 Indication: Esophageal varices Signed by: Dr. Nelson Chow MD on 04/14/2018 7:58 AM ORIGINAL REPORT EXAM: RUQ ULTRASOUND Date: 04/11/2018 7:00 AM Indication: Comparison: None Technique: Sonographic evaluation of the right upper quadrant. Color doppler was utilized to supplement evaluation. FINDINGS: LIVER: No focal lesion is identified. The liver measures 15.8 cm in the right midclavicular line. Echotexture is normal. BILIARY: The gallbladder has a normal appearance, without evidence for gallstones, gallbladder wall thickening or pericholecystic fluid. The common bile duct measures 0.7 cm. PANCREAS: The pancreas is incompletely visualized due to overlying bowel gas, but no abnormality identified involving the visualized portions of the pancreas. RIGHT KIDNEY: Measures 10.6 cm in length. No hydronephrosis or solid mass lesion identified. PERITONEUM: No free fluid. VASCULATURE: Aorta: Visualized portions appear unremarkable. Interior vena cava: Visualized portions appear unremarkable. Portal Vein: Nondilated with hepatopedal flow. IMPRESSION: Unremarkable RUQ ultrasound. Signed by: Dr. Nelson Chow MD on 04/11/2018 9:14 AM
[2018-04-11] MEDS: LORAZEPAM 0.5 MG TAB PO SCH ×2 (09:30→17:02)
[2018-04-11] MEDS: NITROGLYCERIN 0.1MG/HR PATCH TOP SCH (09:47)
[2018-04-11] MEDS ORDERED: PROTONIX40 MG PO (10:57)
[2018-04-11] MEDS: BUDESONIDE/FORMOTEROL 160/4.5MCG INHALER INH SCH ×2 (11:07→19:10)
[2018-04-11 12:36] VITALS: BP 88/76
[2018-04-11 14:38] VITALS: BP 88/76
[2018-04-11 19:10] VITALS: BP 105/80
[2018-04-11] MEDS: MIRTAZAPINE 15 MG TAB PO SCH (20:30)
[2018-04-11] MEDS: LORATADINE 10 MG TAB PO SCH (20:30)
[2018-04-11] MEDS: HYDROCODONE/APAP 5MG-325MG TAB PO PRN (20:30)
[2018-04-11] MEDS: ATORVASTATIN 20 MG TAB PO SCH (20:30)
[2018-04-11 23:35] VITALS: BP 96/71
--- NOTE | 2018-04-12 01:58 | Discharge Summary ---
ADDENDUM Patient has persistent chest pain, it was felt not to be cardiac in origin. He underwent EGD and was found to have esophageal ulcer and grade 1 varices. Started on Protonix and Pepcid and improved and was discharged, to be followed as an outpatient. Prednisone will be discontinued as well. Job#: [id number] RTJodie
[2018-04-12] MEDS: ALBUTEROL/IPRATROPIUM 3 ML NEB NEB SCH ×3 (02:48→10:38)
[2018-04-12 03:30] VITALS: BP 131/87
[2018-04-12 07:59] VITALS: BP 128/90
[2018-04-12] MEDS: LORAZEPAM 0.5 MG TAB PO SCH (08:13)
[2018-04-12] MEDS: NITROGLYCERIN 0.1MG/HR PATCH TOP SCH (08:13)
[2018-04-12] MEDS: NICOTINE 7 MG PATCH TOP SCH (08:17)
[2018-04-12] MEDS: CITALOPRAM HYDROBROMIDE 20 MG TAB PO SCH (08:17)
[2018-04-12] MEDS: FAMOTIDINE 20 MG TAB PO SCH (08:17)
[2018-04-12] MEDS: ASPIRIN 81 MG ENTERIC COATED PO SCH (08:17)
[2018-04-12] MEDS: PANTOPRAZOLE 40 MG 10ML VIAL IV SCH (08:17)
[2018-04-12] MEDS: CLOPIDOGREL BISULFATE 75 MG TAB PO SCH (08:17)
[2018-04-12] MEDS: HYDROCODONE/APAP 5MG-325MG TAB PO PRN (08:18)
[2018-04-12] MEDS: BUDESONIDE/FORMOTEROL 160/4.5MCG INHALER INH SCH (08:35)
[2018-04-12 08:46] VITALS: BP 104/96
[2018-04-12 08:49] VITALS: BP 104/96
[2018-04-12 10:13] VITALS: BP 104/96
[2018-04-12] MEDS ORDERED: RANOLAZINE 500 MG TABSR PO SCH (10:30)
--- NOTE | 2018-04-12 11:16 | Progress Note ---
DATE: April 12, 2018 CARDIOLOGY PROGRESS NOTE SUBJECTIVE: Patient endorses some occasional chest pain that are almost daily and also some shortness of breath and a cough. All of these symptoms are reported to be unchanged from presentation per patient. OBJECTIVE VITAL SIGNS: Temperature 98.0, pulse 72, respiratory rate 22, blood pressure 104/96, oxygen saturation 96% on 2 liters nasal cannula. GENERAL: Alert and oriented x3, resting comfortably in bed. Does not appear to be in any acute distress. NECK: Supple. No JVD noted. LUNGS: Diminished breath sounds throughout. No wheezing or crackles noted. CARDIOVASCULAR: Regular rate and rhythm. No murmurs or gallops noted. Distant heart sounds. ABDOMEN: Soft, nontender. EXTREMITIES: Lower extremities, trace edema bilaterally and diminished pulses. CARDIOVASCULAR MEDICATIONS 1. Nicotine 7 mg p.o. daily. 2. Plavix 75 mg p.o. daily. 3. Aspirin 81 p.o. daily. 4. Nitro patch topically p.o. daily. 5. Atorvastatin 20 mg p.o. h.s. 6. Metoprolol 12.5 mg p.o. daily. 7. Isosorbide 30 mg p.o. daily. LABS: No new labs today. TELEMETRY: Atrially and ventricularly paced rhythm. IMPRESSION 1. Fjudq-rh-qskwrld, chronic obstructive pulmonary disease. 2. Cpcmj-hi-nitlmhd systolic heart failure. 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 4. Hyperlipidemia. 5. Hypertension. 6. Atrial fibrillation. 7. Permanent pacemaker. 8. Anemia. RECOMMENDATIONS: Continue the above-listed cardiac medication. Continue to monitor on telemetry. No AFib noted at this time. Medications adjusted and Ranexa added to control angina. Monitor closely. Patient has had extensive evaluation including echocardiogram, coronary angiogram, CT angiogram of the coronary, and also Lexiscan nuclear perfusion study. No ischemia has been noted at this moment. We will continue to follow this patient. Upon discharge, patient will need followup with cardiology in 1 week. Dictated by: Brianna Roberts NP Job#: [id number] PKU
--- NOTE | 2018-04-12 12:59 | Discharge Summary ---
FINAL DIAGNOSES 1. Chest pain. 2. Coronary artery disease. 3. Hypertension. 4. Anomalous left anterior descending coronary artery disease. 5. Chronic obstructive pulmonary disease. 6. Vefft-dk-wbuhoib hypoxic respiratory failure due to chronic obstructive pulmonary disease. 7. Smoker. ADMISSION HISTORY AND HOSPITAL COURSE: Mr. Castañeda is a 62-year-old male who was initially admitted on March 23 with shortness of breath. Patient was treated for COPD exacerbation, started having chest pain. When he was in the emergency room, Dr. Beck evaluated the patient. Stress test and cardiac cath was done and patient had anomalous LAD. Stress test was negative. Medical management was recommended. Patient was about to be discharged and started having chest pain again. Discharge was cancelled. Subsequently, he had severe chest pain and was transferred to [facility]. Dr. French Steven was consulted. Patient underwent EGD, which showed esophageal varices grade I or II without bleeding and esophageal ulcer. IV PPI was started. Patient started doing better and was discharged yesterday; however, just before sending him home, he started having chest pain again. Discharge was cancelled. Dr. Weiss evaluated the patient today and added Ranexa to the medical management regimen and patient is doing well today, breathing well. He will be discharged home. All other discharge medication prescriptions are in the chart. Discharge medication list reviewed. He will follow up with his primary care physician in 2 to 3 weeks. JAZMIN CURRAN MD Job#: [id number] GANESH
[2018-04-12] MEDS: LISINOPRIL 2.5 MG TAB PO SCH (13:14)
[2018-04-12] MEDS: ISOSORBIDE MONONITRATE 30 MG TAB CR PO SCH (13:14)
[2018-04-12] MEDS: METOPROLOL SUCCINATE 25 MG TAB XL PO SCH (13:17)
--- NOTE | 2018-04-13 09:08 | Progress Note ---
DATE: April 10, 2018 PSYCHIATRIC PROGRESS NOTE Patient is in the room. He is doing the same. He is cooperative, pleasant and comfortable. He is not agitated or combative. He denies any depression or anxiety. Denies any hallucinations. He is waiting for discharge. He denies any side effects to his medications. ASSESSMENT: Anxiety disorder. PLAN: Continue with same medications and supportive therapy. DICTATED BY DEVENDRA HOUSER Job#: [id number] JENNIFER
== END 2018-04-12 13:15 | DRG 286 ==
LOC: ER 15:01 → INTOOBSV 19:36 → ERHOLD 19:36 → OBSVTOIN 19:40 → MED/SURG3 03-24 13:20 → IMCU 04-05 17:25
PROVIDERS: ADMIT Internal Medicine; ATTEND Internal Medicine
PROC: 02HV33Z Insertion of Infusion Device into Superior Vena Cava, Percutaneous Approach (ICD-10-PCS; 2018-03-24)
PROC: B2111ZZ Fluoroscopy of Multiple Coronary Arteries using Low Osmolar Contrast (ICD-10-PCS; principal; 2018-03-31)
PROC: 5A09357 Assistance with Respiratory Ventilation, Less than 24 Consecutive Hours, Continuous Positive Airway Pressure (ICD-10-PCS; 2018-04-05)
PROC: 0DB48ZX Excision of Esophagogastric Junction, Via Natural or Artificial Opening Endoscopic, Diagnostic (ICD-10-PCS; 2018-04-10)
PROC: 0DB78ZX Excision of Stomach, Pylorus, Via Natural or Artificial Opening Endoscopic, Diagnostic (ICD-10-PCS; 2018-04-10)
PROC: 0DB68ZX Excision of Stomach, Via Natural or Artificial Opening Endoscopic, Diagnostic (ICD-10-PCS; 2018-04-10)
DX: Q24.5 Malformation of coronary vessels (principal); I50.23 Acute on chronic systolic (congestive) heart failure; J96.21 Acute and chronic respiratory failure with hypoxia; J44.1 Chronic obstructive pulmonary disease with (acute) exacerbation; F33.1 Major depressive disorder, recurrent, moderate; I85.00 Esophageal varices without bleeding; K22.10 Ulcer of esophagus without bleeding; I11.0 Hypertensive heart disease with heart failure; I25.10 Atherosclerotic heart disease of native coronary artery without angina pectoris; E78.5 Hyperlipidemia, unspecified; Z99.81 Dependence on supplemental oxygen; Z95.0 Presence of cardiac pacemaker; F41.9 Anxiety disorder, unspecified; F17.200 Nicotine dependence, unspecified, uncomplicated; I48.91 Unspecified atrial fibrillation; Z86.718 Personal history of other venous thrombosis and embolism; Z86.711 Personal history of pulmonary embolism; Z86.73 Personal history of transient ischemic attack (TIA), and cerebral infarction without residual deficits; Z79.02 Long term (current) use of antithrombotics/antiplatelets; Z79.82 Long term (current) use of aspirin; Z79.52 Long term (current) use of systemic steroids
CPT/HCPCS: 36415; 36569; 36600; 43239; 71045; 75574; 76705; 78452; 78582; 80048; 80053; 80061; 81001; 82550; 82553; 82805; 82948; 83605; 83735; 83880; 84484; 85014; 85018; 85025; 85347; 85610; 85730; 87040; 87086; 88305; 88312; 93005; 93017; 93306; 93458; 94060; 94640; 94660; 96372; 97139; 99284; A9502; A9540; A9558; C1769; J0456; J1644; J1940; J2001; J2250; J2270; J2405; J2920; J7030; J7050; J7512; Q9967

== ENCOUNTER 2018-06-03 16:51 | Inpatient (IN) | payer OTHER ==
[~2018-06-03] VITALS: Ht 182.9 cm; Wt 102.2 kg
[~2018-06-03 16:51] MED LIST changes: +ANORO ELLIPTA INH; +BENZONATATE200 MG PO; +CELEXA20 MG PO; +ISMO PO; +LASIX20 MG PO; +LISINOPRIL2.5 MG PO; +METOPROLOL SUCC25 MG PO; +NITROGLYCERIN0.4 MG SL; +PLAVIX75 MG PO; +PROTONIX40 MG PO; +ROBAFEN PO; +SYMBICORT 16010.2 GM; +TYLENOL # 31 EA PO; +WARFARIN SODIUM1 MG PO; +ZYRTEC10 M3 PO; +[UNRECOGNIZED DRUG - OTHER] PO
--- OUTSIDE RECORDS SUMMARY | 2018-06-03 16:55 | XMS REPORT | Continuity of Care Document ---
Author Author [facility] Interface Address Unknown Phone Unavailable Problems Problem Status Onset Date Classification Date Reported Comments Source BRONCHITIS, CHEST PAIN Active 2015 [facility] SOB / CHEST PAIN Active 2015 [facility] CHEST PAIN, BRADYCARDIA, SUICIDAL IDEATI Active 08/18/2015 [facility] WEAK Active 08/18/2015 [facility] DEBILITY Active 08/07/2015 [facility] DEBILITATED Active 08/07/2015 [facility] LEFT CORONARY ANOMALY Active 07/20/2015 [facility] Anxiety Active Problem 12/05/2015 [facility] COPD Active Problem 12/05/2015 [facility] Depressed Active Problem 12/05/2015 [facility] Hypertension Active Problem 12/05/2015 [facility] Major depressive disorder Active Problem 12/05/2015 [facility] Pacemaker Active Problem 12/05/2015 [facility] Psychomotor retardation Active Problem 12/05/2015 [facility] Pulmonary embolism Resolved Problem 12/05/2015 [facility] Tobacco abuse Active Problem 12/05/2015 [facility] Unstable angina Active Problem 12/05/2015 [facility] OTHER SPECIFIED CONGENITAL DEFORMITIES Active [facility] OTHER MALAISE Active [facility] BRONCHITIS, NOT SPECIFIED ACUTE OR CH Active [facility] Medications Medication Details Route Status Patient Instructions Ordering Provider Order Date Source rivaroxaban 20 mg oral tablet 20 mg=1 tab, PO, QPM, 0 Refill(s) Active 12/02/2015 [facility] lamoTRIgine 25 mg oral tablet 25 mg=1 tab, PO, BID, 0 Refill(s) Active 12/02/2015 [facility] QUEtiapine 25 mg oral tablet 25 mg=1 tab, PO, Q4H, PRN Anxiety, 0 Refill(s) Active 12/02/2015 [facility] Seroquel 25 mg, 1 tab, Route: PO, Drug form: TAB, TID, Dosing Weight 105.455, kg, Start date: 12/02/15 13:00:00 CDT, Duration: 30 day, Stop date: 01/01/16 9:00:00 CDTNotes: (Same as: SEROquel) Inactive 12/02/2015 [facility] Seroquel 25 mg, 1 tab, Route: PO, Drug form: TAB, Q4H, Dosing Weight 105.455, kg, PRN Anxiety, Start date: 12/02/15 12:54:00 CDT, Duration: 30 day, Stop date: 01/01/16 12:53:00 CDTNotes: (Same as: SEROquel) Inactive 12/02/2015 [facility] lamoTRIgine 25 mg oral tablet 25 mg, 1 tab, Route: PO, Drug form: TAB, BID, Dosing Weight 105.455, kg, Priority: NOW, Start date: 12/02/15 11:31:00 CDT, Duration: 30 day, Stop date: 01/01/16 9:00:00 CDTNotes: (Same as:LaMICtal) Inactive 12/02/2015 [facility] Mirtazapine 30 mg, 2 tab, Route: PO, Drug form: TAB, Bedtime, Dosing Weight 105.455, kg, Start date: 11/29/15 21:00:00 CDT, Duration: 30 day, Stop date: 12/28/15 21:00:00 CDTNotes: (Same as:Remeron) No Longer Active 11/30/2015 [facility] Seroquel 50 mg, 2 tab, Route: PO, Drug form: TAB, Bedtime, Dosing Weight 105.455, kg, Start date: 11/29/15 21:00:00 CDT, Stop date: 12/28/15 21:00:00 CDTNotes: (Same as: SEROquel) No Longer Active 11/30/2015 [facility] Xarelto 20 mg, 1 tab, Route: PO, Drug form: TAB, QPM, Dosing Weight 105.455, kg, Start date: 11/29/15 20:00:00 CDT, Duration: 30 day, Stop date: 12/28/15 20:00:00 CDTNotes: (Same as: Xarelto) Administer with food No Longer Active 11/30/2015 [facility] Seroquel 25 mg, 1 tab, Route: PO, Drug form: TAB, Q6H, Dosing Weight 105.455, kg, PRN Agitation, Start date: 11/29/15 19:38:00 CDT, Duration: 30 day, Stop date: 12/29/15 19:37:00 CDTNotes: (Same as: SEROquel) No Longer Active 11/30/2015 [facility] Acetaminophen 300 MG / Codeine Phosphate 30 MG Oral Tablet [Tylenol with Codeine #3] 1 tab, Route: PO, Drug Form: TAB, Dosing Weight 105.455, kg, Q6H, PRN Pain Score 6-10, Start date: 11/29/15 18:44:00 CDT, Duration: 30 day, Stop date: 12/29/15 18:43:00 CDTNotes: Do not exceed 4gm/day of acetaminophen. (Same as: Tylenol with Codeine # 3) No Longer Active 11/29/2015 [facility] POLYETHYLENE GLYCOL 3350 17 gm, 1 pkt, Route: PO, Drug form: PWDR, BID, Dosing Weight 105.455, kg, Start date: 11/29/15 9:00:00 CDT, Duration: 30 day, Stop date: 12/28/15 17:00:00 CDTNotes: Dissolve in 8 oz of water or juice. (Same as: Miralax) No Longer Active 11/29/2015 [facility] Folic Acid 1 mg, 1 tab, Route: PO, Drug form: TAB, Daily, Dosing Weight 105.455, kg, Start date: 11/29/15 9:00:00 CDT, Duration: 30 day, Stop date: 12/28/15 9:00:00 CDTNotes: (Same as: Folvite) No Longer Active 11/29/2015 [facility] Flonase 0.05 mg/inh nasal spray 2 spray, Route: Each Affected Nostril, Drug Form: SPRY, Dosing Weight 105.455, kg, Daily, Start date: 11/29/15 9:00:00 CDT, Duration: 30 day, Stop date: 12/28/15 9:00:00 CDTNotes: (Same as: Flonase) No Longer Active 11/29/2015 [facility] carvedilol 3.125 mg, 1 tab, Route: PO, Drug form: TAB, Q12H, Dosing Weight 105.455, kg, Start date: 11/29/15 9:00:00 CDT, Duration: 30 day, Stop date: 12/28/15 21:00:00 CDTNotes: Give with food. (Same As: Coreg) No Longer Active 11/29/2015 [facility] Budesonide 1 inhalation, Route: INHALATION, Drug form: PWDR, BID, Dosing Weight 105.455, kg, Start date: 11/29/15 9:00:00 CDT, Duration: 30 day, Stop date: 12/28/15 17:00:00 CDTNotes: Same as Pulmicort Flexhaler Non-Formulary Drug No Longer Active 11/29/2015 [facility] Aspirin 81 mg, 1 tab, Route: PO, Drug form: ECTAB, Daily, Dosing Weight 105.455, kg, Start date: 11/29/15 9:00:00 CDT, Duration: 30 day, Stop date: 12/28/15 9:00:00 CDTNotes: Do not crush or chew. (Same As: Ecotrin) No Longer Active 11/29/2015 [facility] Thiamine 100 mg, 1 tab, Route: PO, Drug form: TAB, Daily, Dosing Weight 105.455, kg, Start date: 11/29/15 9:00:00 CDT, Duration: 30 day, Stop date: 12/28/15 9:00:00 CDTNotes: (Same As: Vitamin B1) No Longer Active 11/29/2015 [facility] Nitroglycerin 0.4 MG Sublingual Tablet 0.4 mg, 1 tab, Route: SL, Drug form: TAB, Q5Min, Dosing Weight 105.455, kg, PRN Chest Pain, Start date: 11/28/15 21:08:00 CDT, Duration: 30 day, Stop date: 12/28/15 21:07:00 CDT Inactive 11/29/2015 [facility] Calcium Carbonate 500 MG Chewable Tablet 500 mg, 1 tab, Route: CHEW, Drug form: CHEWTAB, TID, Dosing Weight 105.455, kg, PRN Indigestion, Start date: 11/28/15 21:07:00 CDT, Duration: 30 day, Stop date: 12/28/15 21:06:00 CDTNotes: (Same As: César) Calcium Carbonate 500 oy=303 mg elemental calcium Dose= mg calcium carbonate ( mg elemental calcium) No Longer Active 11/29/2015 [facility] 200 ACTUAT Albuterol 0.09 MG/ACTUAT Metered Dose Inhaler 2 puff, Route: INHALATION, Drug Form: AERO/A, Dosing Weight 105.455, kg, QID, PRN Wheezing, Start date: 11/28/15 21:07:00 CDT, Duration: 30 day, Stop date: 12/28/15 21:06:00 CDTNotes: Albuterol 90 microgram/inh 8gm HFA WASTE: Aerosol - Return to Pharmacy Same as: Kenneth Oakes No Longer Active 11/29/2015 [facility] Saline Flush 0.9% 10 ml, Route: IVP, Drug Form: INJ, Dosing Weight 113.636, kg, Q12H, Start date: 11/28/15 21:00:00 CDT, Duration: 30 day, Stop date: 12/28/15 9:00:00 CDTNotes: (Same as: BD Posiflush) No Longer Active 11/29/2015 [facility] Albuterol 0.83 MG/ML Inhalant Solution 2.5 mg, 3.01 mL, Route: INHALATION, Drug form: SOLN, RQ6H, Dosing Weight 113.636, kg, Start date: 11/28/15 20:00:00 CDT, Duration: 30 day, Stop date: 12/28/15 14:00:00 CDTNotes: SEE RT DOCUMENTATION (Same as: Proventil) No Longer Active 11/29/2015 [facility] Lovenox 105.455 mg, 0.7 mL, Route: SUB-Q, Drug form: INJ, [id number], Dosing Weight 105.455, kg, Start date: 11/28/15 17:00:00 CDT, Duration: 30 day, Stop date: 12/28/15 9:00:00 CDTNotes: Nurse to ensure document ation of patient education per anticoagulation policy. (Same as: Lovenox) No Longer Active 2015 [facility] Alprazolam 1 MG Oral Tablet [Xanax] 1 mg, 1 tab, Route: PO, Drug form: TAB, ONCE, Dosing Weight 105.455, kg, PRN Anxiety, Start date: 11/28/15 16:13:00 CDT, Stop date: 12/28/15 16:12:00 CDTNotes: With food or milk (Same as: Xanax) Inactive 2015 [facility] Saline Flush 0.9% 10 ml, Route: IVP, Drug Form: INJ, Dosing Weight 113.636, kg, PRN, PRN Line Flush, Start date: 11/28/15 15:24:00 CDT, Duration: 30 day, Stop date: 12/28/15 15:23:00 CDTNotes: (Same as: BD Posiflush) No Longer Active 2015 [facility] Nitroglycerin 0.4 mg, 1 tab, Route: SL, Drug form: TAB, Q5Min, Dosing Weight 113.636, kg, PRN Chest Pain, Start date: 11/28/15 15:24:00 CDT, Duration: 3 doses or times, Stop date: Limited # of timesNotes: (Same as :Nitroquick, Nitrostat) "Do Not Crush" Sublingual tablet No Longer Active 2015 [facility] Morphine 2 mg, 1 mL, Route: IVP, Drug form: INJ, Q15Min, Dosing Weight 113.636, kg, PRN Chest Pain, Start date: 11/28/15 15:24:00 CDT, Duration: 2 doses or times, Stop date: Limited # of timesNotes: (Same as: MORPhine Sulfate) No Longer Active 2015 [facility] Ondansetron 4 mg, 1 tab, Route: PO, Drug form: TAB, Q8H, Dosing Weight 113.636, kg, PRN Nausea & Vomiting, Start date: 11/28/15 15:24:00 CDT, Duration: 30 day, Stop date: 12/28/15 15:23:00 CDTNotes: (Same as: Zofran) No Longer Active 2015 [facility] Aspirin 325 MG Oral Tablet 325 mg, 1 tab, Route: PO, Drug form: TAB, ONCE, Dosing Weight 113.636, kg, Start date: 11/28/15 15:24:00 CDT, Stop date: 11/28/15 15:24:00 CDTNotes: Take with food. Inactive 2015 [facility] Sodium Chloride 0.154 MEQ/ML Injectable Solution 1,000 mL, 1,000 ml/hr, Infuse Over: 1 hr, Route: IV, ONCE, Priority: STAT, Dosing Weight 113.636 kg, Start date: 11/28/15 13:34:00 CDT, Duration: 1 doses or times, Stop date: 11/28/15 13:34:00 CDT Inactive 2015 [facility] Morphine 4 mg, Route: IVP, Drug form: INJ, ONCE, Dosing Weight 113.636, kg, Priority: STAT, Start date: 11/28/15 13:34:00 CDT, Stop date: 11/28/15 13:34:00 CDT Inactive 2015 [facility] Nitroglycerin 0.02 MG/MG Topical Ointment 0.5 inch, Route: TOP, Dosing Weight 113.636, kg, ONCE, STAT, Start date: 11/28/15 13:32:00 CDT, Stop date: 11/28/15 13:32:00 CDT Inactive 2015 [facility] Ipratropium 0.5 mg, 2.5 mL, Route: NEB, Drug form: SOLN, ONCE, Dosing Weight 113.636, kg, Priority: STAT, Start date: 11/28/15 10:59:00 CDT, Stop date: 11/28/15 10:59:00 CDTNotes: SEE RT DOCUMENTATION (Same as:Stacey romero) Inactive 2015 [facility] Albuterol 0.83 MG/ML Inhalant Solution 10 mg, Route: NEB, Drug form: SOLN, Continuous, Dosing Weight 113.636, kg, Priority: STAT, Start date: 11/28/15 10:59:00 CDT, Duration: 30 day, Stop date: 12/28/15 10:58:00 CDT Inactive 2015 [facility] methylPREDNISolone SODium SUCCinate 125 mg, 2 mL, Route: IVP, Drug form: INJ, ONCE, Dosing Weight 113.636, kg, Priority: STAT, Start date: 11/28/15 10:59:00 CDT, Stop date: 11/28/15 10:59:00 CDTNotes: (Same as:Solu-MEDROL, A-Methapred) Inactive 2015 [facility] Magnesium Sulfate 2 gm, Route: IVPB, ONCE, Dosing Weight 113.636, kg, Priority: STAT, Start date: 11/28/15 10:59:00 CDT, Stop date: 11/28/15 10:59:00 CDT Inactive 2015 [facility] Saline Flush 0.9% 10 mL, Route: IVP, Drug Form: INJ, Dosing Weight 113.636, kg, PRN, PRN Line Flush, Start date: 11/28/15 10:59:00 CDT, Duration: 30 day, Stop date: 12/28/15 10:58:00 CDTNotes: (Same as: BD Posiflush) Inactive 2015 [facility] Ketoconazole 20 MG/ML Medicated Shampoo 1 appl, Route: TOP, QWed, Drug form: SHMP, Start date: 08/23/15 9:00:00 CDT, Duration: 30 day, Stop date: 09/20/15 9:00:00 CDT No Longer Active 08/23/2015 [facility] predniSONE 5 mg, 1 tab, Route: PO, Drug form: TAB, Daily, Start date: 08/20/15 9:00:00 CDT, Duration: 3 doses or times, Stop date: 08/22/15 9:00:00 CDTNotes: Take with food. No Longer Active 08/20/2015 [facility] Xarelto 15 mg, 1 tab, Route: PO, Drug form: TAB, Q12H, Dosing Weight 95, kg, Start date: 08/20/15 9:00:00 CDT, Duration: 30 day, Stop date: 09/18/15 21:00:00 CDTNotes: (Same as: Xarelto) Administer with food No Longer Active 08/20/2015 [facility] {42 (rivaroxaban 15 MG Oral Tablet [Xarelto]) / 9 (rivaroxaban 20 MG Oral Tablet [Xarelto]) } Pack [Xarelto Kit] 1 tab, PO, BID-Meals, Take 15 mg tablets twice daily with food for 21 days. Beginning day 22,take one 20 mg tablet daily with food for the remainder of therapy., X 30 day, # 1 pkt, 0 Refill(s) Active 08/20/2015 [facility] Pulmicort Respules 0.5 mg, 2 mL, Route: NEB, Drug form: SUSP, RBID, Start date: 08/19/15 22:00:00 CDT, Duration: 30 day, Stop date: 09/18/15 20:00:00 CDTNotes: (Same As: Pulmicort) No Longer Active 08/20/2015 [facility] Thiamine 100 mg, 1 tab, Route: PO, Drug form: TAB, Daily, Dosing Weight 95, kg, Start date: 08/19/15 9:00:00 CDT, Duration: 30 day, Stop date: 09/17/15 9:00:00 CDTNotes: (Same As: Vitamin B1) No Longer Active 08/19/2015 [facility] Ketoconazole 20 MG/ML Medicated Shampoo 1 appl, Route: TOP, QSat, Drug form: SHMP, Start date: 08/19/15 9:00:00 CDT, Duration: 30 day, Stop date: 09/16/15 9:00:00 CDT No Longer Active 08/19/2015 [facility] Folic Acid 1 mg, 1 tab, Route: PO, Drug form: TAB, Daily, Dosing Weight 95, kg, Start date: 08/19/15 9:00:00 CDT, Duration: 30 day, Stop date: 09/17/15 9:00:00 CDTNotes: (Same as: Folvite) No Longer Active 08/19/2015 [facility] Flonase 0.05 mg/inh nasal spray 2 spray, Route: Each Affected Nostril, Drug Form: SPRY, Dosing Weight 95, kg, Daily, Start date: 08/19/15 9:00:00 CDT, Duration: 30 day, Stop date: 09/17/15 9:00:00 CDTNotes: (Same as: Flonase) No Longer Active 08/19/2015 [facility] Aspirin 81 mg, 1 tab, Route: PO, Drug form: ECTAB, Daily, Dosing Weight 95, kg, Start date: 08/19/15 9:00:00 CDT, Duration: 30 day, Stop date: 09/17/15 9:00:00 CDTNotes: Do not crush or chew. (Same As: Ecotrin) No Longer Active 08/19/2015 [facility] Bacitracin 0.4 UNT/MG / Neomycin 0.0035 MG/MG / Polymyxin B 10 UNT/MG Ophthalmic Ointment 1 appl, Route: BOTH EYES, Q3H, Drug form: OINT, Start date: 08/18/15 23:00:00 CDT, Duration: 30 day, Stop date: 09/17/15 20:00:00 CDTNotes: (bacitracin/neomycin/ polymyxin B 3.5 gm oph OIN) (Same As: Neosporin, Triple Antibiotic) No Longer Active 08/19/2015 [facility] Mirtazapine 30 mg, 2 tab, Route: PO, Drug form: TAB, Bedtime, Dosing Weight 95, kg, Start date: 08/18/15 21:00:00 CDT, Duration: 30 day, Stop date: 09/16/15 21:00:00 CDTNotes: (Same as:Remeron) No Longer Active 08/19/2015 [facility] carvedilol 3.125 mg, 1 tab, Route: PO, Drug form: TAB, Q12H, Dosing Weight 95, kg, Start date: 08/18/15 21:00:00 CDT, Duration: 30 day, Stop date: 09/17/15 9:00:00 CDTNotes: Give with food. (Same As: Coreg) No Longer Active 08/19/2015 [facility] Budesonide 1 inhalation, Route: INHALATION, Drug form: PWDR, RBID, Dosing Weight 95, kg, Start date: 08/18/15 20:00:00 CDT, Duration: 30 day, Stop date: 09/17/15 8:00:00 CDTNotes: Same as Pulmicort Flexhaler Non- Formulary Drug Inactive 08/19/2015 [facility] Polymyxin B 49020 UNT/ML / Trimethoprim 1 MG/ML Ophthalmic Solution 1 drp, Route: BOTH EYES, Q3H, Start date: 08/18/15 17:00:00 CDT, Duration: 30 day, Stop date: 09/17/15 14:00:00 CDT Inactive 08/18/2015 [facility] Warfarin 7.5 mg, 1 tab, Route: PO, [...] (Same As: Coumadin) No Longer Active 08/18/2015 [facility] POLYETHYLENE GLYCOL 3350 17 gm, Route: PO, Drug form: PDR/REC, BID, Dosing Weight 95, kg, Start date: 08/18/15 17:00:00 CDT, Duration: 30 day, Stop date: 09/17/15 9:00:00 CDTNotes: (Same as: MiraLax) No Longer Active 08/18/2015 [facility] Polymyxin B 19583 UNT/ML / Trimethoprim 1 MG/ML Ophthalmic Solution 1 drp, BOTH EYES, Q3H, X 7 day, # 10 mL, 0 Refill(s) No Longer Active 08/18/2015 [facility] remove patch 1 patch, Route: TOP, Q24H, Drug form: ERFILM, Start date: 08/18/15 15:00:00 CDT, Duration: 30 day, Stop date: 09/16/15 15:00:00 CDTNotes: Remove patch 12 hours after application each day. No Longer Active 08/18/2015 [facility] Lidocaine Hydrochloride 0.05 MG/MG Transdermal Patch [Lidoderm] 1 patch, Route: TOP, Q24H, Drug form: FILM, Start date: 08/18/15 15:00:00 CDT, Duration: 30 day, Stop date: 09/16/15 15:00:00 CDTNotes: Apply only once for up to 12 hours in a 24-hour period (12 hours on and 12 hours off). (Same as: Lidoderm) "Remove old patch before application of new patch" No Longer Active 08/18/2015 [facility] predniSONE 10 mg, 1 tab, Route: PO, Drug form: TAB, Daily, Start date: 08/18/15 14:27:00 CDT, Duration: 2 doses or times, Stop date: 08/19/15 9:00:00 CDTNotes: (Same as: PredniSONE) Take with food. No Longer Active 08/18/2015 [facility] tramadol hydrochloride 50 MG Oral Tablet [Ultram] 50 mg, 1 tab, Route: PO, Drug form: TAB, Q6H, Dosing Weight 95, kg, PRN Pain Score 6- 10, Start date: 08/18/15 14:08:00 CDT, Duration: 30 day, Stop date: 09/17/15 14:07:00 CDTNotes: Not to exceed 400mg/day. (Same As: Ultram) No Longer Active 08/18/2015 [facility] Prednisone 1 MG Oral Tablet Dose: See Instructions, Route: SUB-Q, Drug form: TAB, Sliding Scale, PRN Blood Glucose Results, Start date: 08/18/15 14:08:00 CDT, Duration: 30 day, Stop date: 09/17/15 14:07:00 CDT Inactive 08/18/2015 [facility] Nitroglycerin 0.4 MG Sublingual Tablet 0.4 mg, 1 tab, Route: SL, Drug form: TAB, Q5Min, Dosing Weight 95, kg, PRN Chest Pain, Start date: 08/18/15 14:08:00 CDT, Duration: 30 day, Stop date: 09/17/15 14:07:00 CDTNotes: (Same as:Nitroquick, Nitrostat) "Do Not Crush" Sublingual tablet No Longer Active 08/18/2015 [facility] hydrocortisone topical 2.5% cream 1 appl, Route: TOP, BID, Drug form: CRM, PRN Itching, Start date: 08/18/15 14:08:00 CDT, Duration: 30 day, Stop date: 09/17/15 14:07:00 CDT No Longer Active 08/18/2015 [facility] Calcium Carbonate 500 MG Chewable Tablet 500 mg, 1 tab, Route: CHEW, Drug form: CHEWTAB, TID, Dosing Weight 95, kg, PRN Indigestion, Start date: 08/18/15 14:08:00 CDT, Duration: 30 day, Stop date: 09/17/15 14:07:00 CDTNotes: (Same As: Tums) Calcium Carbonate 500 cv=139 mg elemental calcium Dose= mg calcium carbonate ( mg elemental calcium) No Longer Active 08/18/2015 [facility] 200 ACTUAT Albuterol 0.09 MG/ACTUAT Metered Dose Inhaler 2 puff, Route: INHALATION, Drug Form: AERO/A, Dosing Weight 95, kg, RQID, PRN Wheezing, Start date: 08/18/15 14:08:00 CDT, Duration: 30 day, Stop date: 09/17/15 14:07:00 CDT No Longer Active 08/18/2015 [facility] Acetaminophen 1,000 mg, 2 tab, Route: PO, Drug form: TAB, Q6H, Dosing Weight 95, kg, PRN Pain Score 1-5, Start date: 08/18/15 14:07:00 CDT, Duration: 30 day, Stop date: 09/17/15 14:06:00 CDTNotes: Max acetaminophen 4000 mg/day (4 gm/day). (Same as: Tylenol Extra Strength) No Longer Active 08/18/2015 [facility] Sodium Chloride 0.9% IV 25 mL, Route: IV, Start date: 08/18/15 14:03:00 CDT, Duration: 30 day, Stop date: 09/17/15 14:02:00 CDT, PRN Line Flush No Longer Active 08/18/2015 [facility] Artificial Tears 1 drp, Route: Each Affected Eye, QID, Drug form: SOLN, PRN Dry Eyes, Start date: 08/18/15 13:56:00 CDT, Duration: 30 day, Stop date: 09/17/15 13:55:00 CDTNotes: (Same as: Aquasite) No Longer Active 08/18/2015 [facility] Diphenhydramine 25 mg, 0.5 mL, Route: IV, Drug form: INJ, Q6H, Dosing Weight 95, kg, PRN as needed for itching, Start date: 08/18/15 13:55:00 CDT, Duration: 30 day, Stop date: 09/17/15 13:54:00 CDTNotes: (Same as: Benadryl) No Longer Active 08/18/2015 [facility] Lorazepam 1 mg, 0.5 mL, Route: IV, Drug form: INJ, Q6H, Dosing Weight 95, kg, PRN as needed for anxiety, Start date: 08/18/15 13:55:00 CDT, Stop date: 09/17/15 13:54:00 CDTNotes: (Same as: Ativan) No Longer Active 08/18/2015 [facility] Ketoconazole 20 MG/ML Medicated Shampoo 1 appl, TOP, QSat, 0 Refill(s) Active 08/18/2015 [facility] Ketoconazole 20 MG/ML Medicated Shampoo 1 appl, TOP, QWed, 0 Refill(s) Active 08/18/2015 [facility] Saline Flush 0.9% 10 mL, Route: IVP, Drug Form: INJ, Dosing Weight 99.574, kg, PRN, PRN Line Flush, Start date: 08/18/15 8:30:00 CDT, Duration: 30 day, Stop date: 09/17/15 8:29:00 CDTNotes: (Same as: BD Posiflush) No Longer Active 08/18/2015 [facility] Ativan 1 mg, 1 tab, Route: PO, Drug form: TAB, ONCE, Dosing Weight 99.574, kg, Start date: 08/17/15 23:25:00 CDT, Stop date: 08/17/15 23:25:00 CDTNotes: (Same as: Ativan) Inactive 08/18/2015 [facility] tramadol hydrochloride 50 MG Oral Tablet [Ultram] 50 mg=1 tab, PO, Q6H, PRN Pain Score 6-10, # 1 tab, 0 Refill(s), other Active 08/18/2015 [facility] predniSONE 10 mg oral tablet See Instructions, Take 1 tab (10mg) PO daily for 2 days and then take 1/2 tab (5mg) PO daily for 3 days and stop. Take w/ food., # 1 tab, 0 Refill(s), other Active 08/18/2015 [facility] 200 ACTUAT Albuterol 0.09 MG/ACTUAT Metered Dose Inhaler 2 puff, INHALATION, QID, PRN as needed for wheezing, # 3 ea, 0 Refill(s), other Active 08/18/2015 [facility] thiamine 100 mg oral tablet 100 mg=1 tab, PO, Daily, 0 Refill(s) Active 08/18/2015 [facility] tramadol hydrochloride 50 MG Oral Tablet [Ultram] 50 mg=1 tab, PO, Q4H, PRN Pain Score 4-6, 0 Refill(s) Inactive 08/18/2015 [facility] POLYETHYLENE GLYCOL 3350 17 gm, PO, BID, 0 Refill(s) Active 08/18/2015 [facility] methocarbamol 500 mg oral tablet 500 mg=1 tab, PO, QID, PRN Muscle Spasms, per RN Sonny at [facility], MD did not approve robaxin and not taking, 0 Refill(s) No Longer Active 08/18/2015 [facility] Lidocaine Hydrochloride 0.05 MG/MG Transdermal Patch [Lidoderm] 1 patch, TOP, Q24H, Remove after 12 hours, 0 Refill(s) Active 08/18/2015 [facility] hydrocortisone topical 2.5% cream 1 appl, TOP, BID, PRN Itching, 0 Refill(s) Active 08/18/2015 [facility] Folic Acid 1 MG Oral Tablet 1 mg=1 tab, PO, Daily, 0 Refill(s) Active 08/18/2015 [facility] Calcium Carbonate 500 MG Chewable Tablet 500 mg=1 tab, CHEW, TID, PRN Indigestion, 0 Refill(s) Active 08/18/2015 [facility] Flonase 0.05 mg/inh nasal spray 100 microgram=2 spray, Each Affected Nostril, Daily, 0 Refill(s) Active 08/18/2015 [facility] busPIRone 5 mg oral tablet 5 mg=1 tab, PO, TID, Investigating the current use. New rx from 08/17/15 but not seen on papaers provided by facility. RN Sonny will fax the list, 0 Refill(s) No Longer Active 08/18/2015 [facility] mirtazapine 30 mg oral tablet 30 mg=1 tab, PO, Bedtime, 0 Refill(s) Active 08/18/2015 [facility] warfarin 2.5 mg oral tablet 7.5 mg, PO, QPM, # 1 tab, 0 Refill(s), other No Longer Active 08/18/2015 [facility] acetaminophen 500 mg oral tablet 1,000 mg=2 tab, PO, Q6H, PRN Pain Score 1-5, 0 Refill(s) Active 08/18/2015 [facility] Warfarin 7.5 mg, 1 tab, Route: PO, [...] Waste Black (Same As: Coumadin) Inactive 08/17/2015 [facility] Buspar 5 mg, 1 tab, Route: PO, Drug form: TAB, TID, Dosing Weight 99.574, kg, Start date: 08/17/15 9:00:00 CDT, Duration: 30 day, Stop date: 09/15/15 17:00:00 CDTNotes: (Same As: BuSpar) No Longer Active 08/17/2015 [facility] Warfarin 7.5 mg, 1 tab, Route: PO, [...] Waste Black (Same As: Coumadin) Inactive 08/16/2015 [facility] Methocarbamol 500 mg, 1 tab, Route: PO, Drug form: TAB, QID, Dosing Weight 99.574, kg, PRN Muscle Spasms, Start date: 08/15/15 22:54:00 CDT, Duration: 30 day, Stop date: 09/14/15 22:53:00 CDTNotes: (Same as:Robaxin) No Longer Active 08/16/2015 [facility] Ativan 1 mg, 0.5 mL, Route: IVP, Drug form: INJ, ONCE, Dosing Weight 99.574, kg, Start date: 08/15/15 19:39:00 CDT, Stop date: 08/15/15 19:39:00 CDTNotes: (Same as: Ativan) Inactive 08/16/2015 [facility] Warfarin 6 mg, 1 tab, Route: PO, [...] Waste Black (Same As: Coumadin) Inactive 08/15/2015 [facility] Clonazepam 0.25 mg, 0.5 tab, Route: PO, Drug form: TAB, ONCE, Dosing Weight 99.574, kg, Priority: NOW, Start date: 08/15/15 10:09:00 CDT, Stop date: 08/15/15 10:09:00 CDTNotes: (Same As: KlonoPIN) Inactive 08/15/2015 [facility] Warfarin 5 mg, 1 tab, Route: PO, [...] Waste Black (Same As: Coumadin) Inactive 08/14/2015 [facility] remove patch 1 patch, Route: TOP, Bedtime, Drug form: ERFILM, Start date: 08/14/15 1:00:00 CDT, Duration: 30 day, Stop date: 09/12/15 1:00:00 CDTNotes: Remove patch 12 hours after application each day. No Longer Active 08/14/2015 [facility] Warfarin 5 mg, 1 tab, Route: PO, [...] Waste Black (Same As: Coumadin) Inactive 08/13/2015 [facility] Miralax 17 gm, 1 pkt, Route: PO, Drug form: PWDR, BID, Dosing Weight 99.574, kg, Priority: NOW, Start date: 08/13/15 14:34:00 CDT, Duration: 30 day, Stop date: 09/12/15 9:00:00 CDTNotes: Dissolve in 8 oz of water or juice. (Same as: Miralax) No Longer Active 08/13/2015 [facility] Dulcolax Laxative 10 mg, 1 supp, Route: MT, Drug form: SUPP, ONCE, Dosing Weight 99.574, kg, Priority: NOW, Start date: 08/13/15 14:29:00 CDT, Stop date: 08/13/15 14:29:00 CDTNotes: (Same As: Dulcolax, Bisco- Lax) Inactive 08/13/2015 [facility] Lidocaine Hydrochloride 0.05 MG/MG Transdermal Patch [Lidoderm] [...] of new patch" No Longer Active 08/13/2015 [facility] Warfarin 6 mg, 1 tab, Route: PO, Drug form: TAB, Q5PM, Dosing Weight 99.574, kg, Start date: 08/12/15 17:00:00, Duration: 1 doses or times, Stop date: 08/12/15 17:00:00Notes: Nurse to ensure documentation of pat ient education per anticoagulation policy. Avoid large intake of vitamin-K containing foods diet. WASTE: F/P - P Waste Black; E - P Waste Black (Same As: Coumadin) Inactive 08/12/2015 [facility] warfarin 3 mg oral tablet 6 mg=2 tab, PO, Daily, # 30 tab, 0 Refill(s) No Longer Active 08/12/2015 [facility] 200 ACTUAT Albuterol 0.09 MG/ACTUAT Metered Dose Inhaler 2 puff, INHALATION, QID, # 3 ea, 0 Refill(s) No Longer Active 08/12/2015 [facility] predniSONE 10 mg oral tablet 20 mg=2 tab, PO, Daily, for 3 days then 1 tab daily for 3 days then 0.5 tab for 4 days., # 11 tab, 0 Refill(s) Inactive 08/12/2015 [facility] carvedilol 3.125 mg oral tablet 3.125 mg=1 tab, PO, Q12H, # 60 tab, 0 Refill(s) Active 08/12/2015 [facility] tramadol hydrochloride 50 MG Oral Tablet 50 mg=1 tab, PO, Q6H, PRN Pain, PRN for pain q 6 hrs, # 30 tab, 0 Refill(s) Inactive 08/12/2015 [facility] Nitroglycerin 0.4 MG Sublingual Tablet 0.4 mg=1 tab, SL, Q5Min, PRN Chest Pain, Give up to 3 doses. Call 911 if pain persists., # 100 tab, 0 Refill(s) Active 08/12/2015 [facility] mirtazapine 15 mg oral tablet 15 mg=1 tab, PO, Bedtime, # 30 tab, 0 Refill(s) No Longer Active 08/12/2015 [facility] budesonide 180 mcg/inh inhalation powder 1 puff, INHALATION, BID, # 2 ea, 0 Refill(s) Active 08/12/2015 [facility] Warfarin 7.5 mg, 1 tab, Route: PO, Drug form: TAB, Q5PM, Dosing Weight 99.574, kg, Start date: 08/11/15 17:00:00, Duration: 1 doses or times, Stop date: 08/11/15 17:00:00Notes: Nurse to ensure documentation of p atient education per anticoagulation policy. Avoid large intake of vitamin-K containing foods diet. WASTE: F/P - P Waste Black; E - P Waste Black (Same As: Coumadin) Inactive 08/11/2015 [facility] Warfarin 6 mg, 1 tab, Route: PO, Drug form: TAB, Q5PM, Dosing Weight 99.574, kg, Start date: 08/10/15 17:00:00, Duration: 1 doses or times, Stop date: 08/10/15 17:00:00Notes: Nurse to ensure documentation of pat ient education per anticoagulation policy. Avoid large intake of vitamin-K containing foods diet. WASTE: F/P - P Waste Black; E - P Waste Black (Same As: Coumadin) Inactive 08/10/2015 [facility] Warfarin 7.5 mg, 1 tab, Route: PO, Drug form: TAB, ONCE, Dosing Weight 99.574, kg, Priority: NOW, Start date: 08/09/15 18:12:00, Stop date: 08/09/15 18:12:00Notes: Nurse to ensure documentation of patient education per anticoagulation policy. Avoid large intake of vitamin-K containing foods diet. WASTE: F/P - P Waste Black; E - P Waste Black (Same As: Coumadin) Inactive 08/09/2015 [facility] Oxycodone Hydrochloride 5 MG Oral Tablet 5 mg, 1 tab, Route: PO, Drug form: TAB, Q6H, Dosing Weight 99.574, kg, PRN Pain Score 7-10, Start date: 08/08/15 18:10:00 CDT, Duration: 30 day, Stop date: 09/07/15 18:09:00 CDTNotes: (Same as: Roxicodone) No Longer Active 08/08/2015 [facility] Tums 500 mg, 1 tab, Route: CHEW, Drug form: CHEWTAB, TID, Dosing Weight 99.574, kg, PRN Indigestion, Start date: 08/08/15 18:07:00, Duration: 30 day, Stop date: 09/07/15 18:06:00Notes: (Same As: Tums) Calcium Carbonate 500 ku=925 mg elemental calcium Dose= mg calcium carbonate ( mg elemental calcium) No Longer Active 08/08/2015 [facility] Coumadin 7.5 mg, 1 tab, Route: PO, Drug form: TAB, Q5PM, Dosing Weight 99.574, kg, Start date: 08/08/15 17:00:00, Duration: 1 doses or times, Stop date: 08/08/15 17:00:00Notes: Nurse to ensure documentation of p atient education per anticoagulation policy. Avoid large intake of vitamin-K containing foods diet. WASTE: F/P - P Waste Black; E - P Waste Black (Same As: Coumadin) Inactive 08/08/2015 [facility] Tylenol 1,000 mg, 2 tab, Route: PO, Drug form: TAB, Q6H, Dosing Weight 99.574, kg, Start date: 08/07/15 18:00:00, Duration: 30 day, Stop date: 09/06/15 12:00:00Notes: Max acetaminophen 4000 mg/day (4 gm/day). (Same as: Tylenol Extra Strength) No Longer Active 08/07/2015 [facility] Coumadin 7.5 mg, 1 tab, Route: PO, Drug form: TAB, Q5PM, Dosing Weight 99.574, kg, Start date: 08/07/15 17:00:00, Duration: 1 doses or times, Stop date: 08/07/15 17:00:00Notes: Nurse to ensure documentation of p atient education per anticoagulation policy. Avoid large intake of vitamin-K containing foods diet. WASTE: F/P - P Waste Black; E - P Waste Black (Same As: Coumadin) Inactive 08/07/2015 [facility] tramadol hydrochloride 50 MG Oral Tablet [Ultram] 50 mg, 1 tab, Route: PO, Drug form: TAB, Q4H, Dosing Weight 99.574, kg, PRN Pain Score 4-6, Start date: 08/07/15 12:36:00, Duration: 30 day, Stop date: 09/06/15 12:35:00Notes: Not to exceed 400mg/day. (Same As: Ultram) No Longer Active 08/07/2015 [facility] naproxen sodium 550 mg, Route: PO, Drug form: TAB, BID, Dosing Weight 99.574, kg, PRN Pain Score 1-3, Start date: 08/07/15 12:27:00, Duration: 30 day, Stop date: 09/06/15 12:26:00 Inactive 08/07/2015 [facility] Acetaminophen 325 MG / Hydrocodone Bitartrate 5 MG Oral Tablet [[place] 5/325] 1 tab, Route: PO, Drug Form: TAB, Dosing Weight 99.574, kg, Q4H, PRN Pain Score 1-3, Start date: 08/07/15 10:36:00, Duration: 30 day, Stop date: 09/06/15 10:35:00Notes: (Same as: [place] 325/5) Do not exceed 4gm/day of acetaminophen. Inactive 08/07/2015 [facility] Coumadin 5 mg, 1 tab, Route: PO, Drug form: TAB, Q5PM, Dosing Weight 99.574, kg, Start date: 08/06/15 17:00:00, Duration: 1 doses or times, Stop date: 08/06/15 17:00:00Notes: Nurse to ensure documentation of pat ient education per anticoagulation policy. Avoid large intake of vitamin-K containing foods diet. WASTE: F/P - P Waste Black; E - P Waste Black (Same As: Coumadin) Inactive 08/06/2015 [facility] Ativan 0.5 mg, 1 tab, Route: PO, Drug form: TAB, TID, Dosing Weight 99.574, kg, PRN Anxiety, Start date: 08/06/15 9:39:00, Duration: 30 day, Stop date: 09/05/15 9:38:00Notes: (Same as: Ativan) No Longer Active 08/06/2015 [facility] Ativan 0.5 mg, 0.25 mL, Route: IV, Drug form: INJ, ONCE, Dosing Weight 99.574, kg, Start date: 08/06/15 9:06:00, Stop date: 08/06/15 9:06:00Notes: (Same as: Ativan) Inactive 08/06/2015 [facility] Ativan 0.5 mg, 0.25 mL, Route: IV, Drug form: INJ, ONCE, Dosing Weight 99.574, kg, Start date: 08/06/15 8:49:00, Stop date: 08/06/15 8:49:00Notes: (Same as: Ativan) Inactive 08/06/2015 [facility] Coumadin 10 mg, 1 tab, Route: PO, Drug form: TAB, Q5PM, Dosing Weight 99.574, kg, Start date: 08/05/15 17:00:00, Duration: 1 doses or times, Stop date: 08/05/15 17:00:00Notes: Nurse to ensure documentation of pa tient education per anticoagulation policy. Avoid large intake of vitamin-K containing foods diet. (Same As: Coumadin) WASTE: F/P - P Waste Black; E - P Waste Black Inactive 08/05/2015 [facility] Coreg 3.125 mg, 1 tab, Route: PO, Drug form: TAB, Q12H, Dosing Weight 99.574, kg, Priority: NOW, Start date: 08/04/15 20:48:00, Duration: 30 day, Stop date: 09/03/15 9:00:00Notes: Give with food. (Same As: Coreg) No Longer Active 08/05/2015 [facility] Warfarin 10 mg, 1 tab, Route: PO, Drug form: TAB, Q5PM, Dosing Weight 99.574, kg, Start date: 08/04/15 17:00:00, Duration: 1 doses or times, Stop date: 08/04/15 17:00:00Notes: Nurse to ensure documentation of pa tient education per anticoagulation policy. Avoid large intake of vitamin-K containing foods diet. (Same As: Coumadin) WASTE: F/P - P Waste Black; E - P Waste Black Inactive 08/04/2015 [facility] Prednisone 10 mg, 1 tab, Route: PO, Drug form: TAB, Daily, Dosing Weight 99.574, kg, Start date: 08/04/15 9:00:00 CDT, Stop date: 09/02/15 9:00:00 CDTNotes: (Same as: PredniSONE) Take with food. No Longer Active 08/04/2015 [facility] Coumadin 7.5 mg, 1 tab, Route: PO, Drug form: TAB, Q5PM, Dosing Weight 99.574, kg, Start date: 08/03/15 17:00:00, Duration: 1 doses or times, Stop date: 08/03/15 17:00:00Notes: Nurse to ensure documentation of p atient education per anticoagulation policy. Avoid large intake of vitamin-K containing foods diet. WASTE: F/P - P Waste Black; E - P Waste Black (Same As: Coumadin) Inactive 08/03/2015 [facility] K-Dur 20 40 mEq, 2 tab, Route: PO, Drug form: ERTAB, ONCE, Start date: 08/03/15 14:00:00, Stop date: 08/03/15 14:00:00Notes: (Same as: K- Dur 20) "Do Not Crush" With food and full glass of water Inactive 08/03/2015 [facility] Flonase 0.05 mg/inh nasal spray 2 spray, Route: Each Affected Nostril, Drug Form: SPRY, Dosing Weight 99.574, kg, Daily, NOW, Start date: 08/02/15 18:04:00, Stop date: 09/01/15 9:00:00Notes: (Same as: Flonase) No Longer Active 08/02/2015 [facility] Budesonide 0.25 MG/ML Inhalant Solution [Pulmicort] 0.5 mg, 2 mL, Route: NEB, Drug form: SUSP, BID, Dosing Weight 99.574, kg, Priority: NOW, Start date: 08/02/15 17:58:00, Duration: 30 day, Stop date: 09/01/15 17:00:00Notes: (Same As: Pulmicort) No Longer Active 08/02/2015 [facility] Coumadin 7.5 mg, 1 tab, Route: PO, Drug form: TAB, Q5PM, Dosing Weight 99.574, kg, Start date: 08/02/15 17:00:00, Duration: 1 doses or times, Stop date: 08/02/15 17:00:00Notes: Nurse to ensure documentation of p atient education per anticoagulation policy. Avoid large intake of vitamin-K containing foods diet. WASTE: F/P - P Waste Black; E - P Waste Black (Same As: Coumadin) Inactive 08/02/2015 [facility] Albuterol 0.83 MG/ML Inhalant Solution 2.49 mg, 3 mL, Route: PO, Drug form: SOLN, RQ4H, Dosing Weight 99.574, kg, PRN Wheezing, Start date: 08/02/15 10:21:00, Duration: 30 day, Stop date: 09/01/15 10:20:00Notes: SEE RT DOCUMENTATION (Same as: Proventil) No Longer Active 08/02/2015 [facility] Coumadin 7.5 mg, 1 tab, Route: PO, Drug form: TAB, Q5PM, Start date: 08/01/15 17:00:00, Duration: 1 day, Stop date: 08/01/15 17:00:00Notes: Nurse to ensure documentation of patient education per anticoagulation policy. Avoid large intake of vitamin-K containing foods diet. WASTE: F/P - P Waste Black; E - P Waste Black (Same As: Coumadin) Inactive 08/01/2015 [facility] Warfarin 5 mg, Route: PO, Q5PM, Dosing Weight 99.574, kg, Start date: 08/01/15 17:00:00, Duration: 1 doses or times, Stop date: 08/01/15 17:00:00 Inactive 08/01/2015 [facility] Bumex 1 mg, 1 tab, Route: PO, Drug form: TAB, Daily, Dosing Weight 99.574, kg, Start date: 08/01/15 9:00:00, Duration: 30 day, Stop date: 08/30/15 9:00:00Notes: (Same As: Bumex) No Longer Active 08/01/2015 [facility] trazodone 50 mg oral tablet 25 mg, 0.5 tab, Route: PO, Drug form: TAB, ONCE, Dosing Weight 99.574, kg, Start date: 07/31/15 23:00:00, Stop date: 07/31/15 23:00:00Notes: (Same As: Desyrel) Inactive 08/01/2015 [facility] Trazodone 25 mg, 0.5 tab, Route: PO, Drug form: TAB, ONCE, Dosing Weight 99.574, kg, PRN Sleep, Start date: 07/31/15 21:49:00, Stop date: 07/31/15 21:49:00Notes: (Same As: Desyrel) Inactive 08/01/2015 [facility] Warfarin 5 mg, 1 tab, Route: PO, Drug form: TAB, Q5PM, Dosing Weight 99.574, kg, Start date: 07/31/15 17:00:00, Duration: 1 doses or times, Stop date: 07/31/15 17:00:00Notes: Nurse to ensure documentation of pat ient education per anticoagulation policy. Avoid large intake of vitamin-K containing foods diet. WASTE: F/P - P Waste Black; E - P Waste Black (Same As: Coumadin) Inactive 07/31/2015 [facility] Lactulose 20 gm, 30 ml, Route: PO, Drug Form: SYRP, Dosing Weight 99.574, kg, ONCE, PRN Constipation, Start date: 07/31/15 9:55:00, Stop date: 08/30/15 9:54:00Notes: (Same as:Chronulac) Inactive 07/31/2015 [facility] azithromycin 250 mg oral tablet 250 mg, 1 tab, Route: PO, Drug form: TAB, Daily, Dosing Weight 99.574, kg, Start date: 07/31/15 9:00:00, Duration: 4 day, Stop date: 08/03/15 9:00:00Notes: Take 1 hour before or 2 hours after meals. (Same As: Zithromax) No Longer Active 07/31/2015 [facility] Lidocaine Hydrochloride 10 MG/ML Injectable Solution 100 mg, 10 mL, Route: IV, Drug Form: INJ, Dosing Weight 99.574, kg, ONCE, Start date: 07/30/15 20:34:00, Stop date: 07/30/15 20:34:00Notes: (Same as: Xylocaine) Inactive 07/31/2015 [facility] Lidocaine Hydrochloride 20 MG/ML Injectable Solution 200 mg, 10 mL, Route: SUB-Q, Drug Form: INJ, Dosing Weight 99.574, kg, ONCE, Start date: 07/30/15 18:53:00, Stop date: 07/30/15 18:53:00Notes: Syringe (Same as: Xylocaine) Inactive 07/30/2015 [facility] azithromycin 500 mg oral tablet 500 mg, 2 tab, Route: PO, Drug form: TAB, Daily, Dosing Weight 99.574, kg, Priority: STAT, Start date: 07/30/15 18:45:00, Duration: 1 doses or times, Stop date: 07/30/15 18:45:00Notes: Take 1 hour before or 2 hours after meals. (Same As: Zithromax) Inactive 07/30/2015 [facility] Albuterol 0.833 MG/ML / Ipratropium [place] 0.167 MG/ML Inhalant Solution 3 ml, Route: NEB, Drug Form: SOLN, Dosing Weight 99.574, kg, RQ4H, STAT, Start date: 07/30/15 18:45:00, Duration: 30 day, Stop date: 08/29/15 15:00:00Notes: (Same as: Duoneb) No Longer Active 07/30/2015 [facility] Prednisone 60 mg, 3 tab, Route: PO, Drug form: TAB, Daily, Dosing Weight 99.574, kg, Priority: STAT, Start date: 07/30/15 18:45:00, Duration: 30 day, Stop date: 08/29/15 9:00:00Notes: Take with food. No Longer Active 07/30/2015 [facility] Magnesium Sulfate 2 gm, 50 mL, Route: IVPB, Drug form: INJ, ONCE, Dosing Weight 99.574, kg, Start date: 07/30/15 15:19:00, Duration: 2 hr, Stop date: 07/30/15 15:19:00Notes: WASTE: F/P - Sink; E - Municipal Trash Bin Inactive 07/30/2015 [facility] Tylenol 650 mg, 2 tab, Route: PO, Drug form: TAB, ONCE, Dosing Weight 99.574, kg, Start date: 07/30/15 1:27:00, Stop date: 07/30/15 1:27:00Notes: Do not exceed 4 gm/day. (Same as: Tylenol) Inactive 07/30/2015 [facility] Magnesium Sulfate 2 gm, 50 mL, Route: IVPB, Drug form: INJ, ONCE, Dosing Weight 99.574, kg, Start date: 07/29/15 10:51:00, Duration: 2 hr, Stop date: 07/29/15 10:51:00Notes: WASTE: F/P - Sink; E - Municipal Trash Bin Inactive 07/29/2015 [facility] Bumex 1 mg, 4 mL, Route: IVP, Drug form: INJ, Daily, Dosing Weight 99.574, kg, Priority: NOW, Start date: 07/29/15 10:17:00, Duration: 30 day, Stop date: 08/28/15 9:00:00Notes: (Same As: Bumex) No Longer Active 07/29/2015 [facility] ketoconazole topical 2% shampoo 1 appl, Route: SHAMPOO, QSat, Drug form: SHMP, Start date: 07/29/15 9:00:00, Duration: 30 day, Stop date: 08/26/15 9:00:00Notes: Non-Formulary Drug (Same as:Nizoral Topical) No Longer Active 07/29/2015 [facility] normal saline 0.9% IV 1,000 mL 1,000 mL, Rate: 50 ml/hr, Infuse over: 20 hr, Route: IVPB, Dosing Weight 99.574 kg, Total Volume: 1,000, Start date: 07/27/15 22:04:00, Duration: 30 day, Stop date: 08/26/15 22:03:00 No Longer Active 07/28/2015 [facility] hydrocortisone topical 2.5% cream 1 appl, Route: TOP, BID, Drug form: CRM, PRN Itching, Start date: 07/26/15 14:53:00, Duration: 30 day, Stop date: 08/25/15 14:52:00 No Longer Active 07/26/2015 [facility] Ketoconazole 20 MG/ML Medicated Shampoo 1 appl, Route: TOP, QWed, Drug form: SHMP, Start date: 07/26/15 14:50:00, Duration: 30 day, Stop date: 08/23/15 15:00:00Notes: Non-Formulary Drug (Same as:Nizoral Topical) No Longer Active 07/26/2015 [facility] tiotropium 0.018 MG/ACTUAT Inhalant Powder [Spiriva] 18 microgram, 1 inhalation, Route: INHALATION, Drug form: CAP, Daily, Dosing Weight 99.574, kg, Start date: 07/26/15 9:00:00, Duration: 30 day, Stop date: 08/24/15 9:00:00Notes: (Same As: Spiriva) No Longer Active 07/26/2015 [facility] Clonidine Hydrochloride 0.1 MG Oral Tablet 0.1 mg, 1 tab, Route: PO, Drug form: TAB, TID, Dosing Weight 99.574, kg, Start date: 07/22/15 17:00:00, Duration: 30 day, Stop date: 08/21/15 13:00:00Notes: (Same As: Catapres) No Longer Active 07/22/2015 [facility] Remeron 30 mg, 2 tab, Route: PO, Drug form: TAB, Bedtime, Dosing Weight 99.574, kg, Start date: 07/21/15 21:00:00, Duration: 30 day, Stop date: 08/19/15 21:00:00Notes: (Same as:Remeron) Inactive 07/22/2015 [facility] Mirtazapine 30 mg, 1 tab, Route: PO, Drug form: TAB, Bedtime, Dosing Weight 99.574, kg, Start date: 07/21/15 21:00:00, Duration: 30 day, Stop date: 09/18/15 21:00:00Notes: (Same as:Remeron) No Longer Active 07/22/2015 [facility] Hydrocortisone-Aloe 0.5% topical cream 1 appl, Route: TOP, BID, Drug form: CRM, Start date: 07/21/15 9:00:00, Duration: 30 day, Stop date: 08/19/15 17:00:00 No Longer Active 07/21/2015 [facility] Aspirin 81 mg, 1 tab, Route: PO, Drug form: ECTAB, Daily, Dosing Weight 99.574, kg, Start date: 07/21/15 9:00:00, Duration: 30 day, Stop date: 09/18/15 9:00:00Notes: Do not crush or chew. (Same As: Ecotrin) No Longer Active 07/21/2015 [facility] Clonidine Hydrochloride 0.1 MG Oral Tablet 0.1 mg, 1 tab, Route: PO, Drug form: TAB, QID, Dosing Weight 99.574, kg, Start date: 07/21/15 9:00:00, Duration: 30 day, Stop date: 08/19/15 21:00:00Notes: (Same As: Catapres) No Longer Active 07/21/2015 [facility] Folic Acid 1 mg, 1 tab, Route: PO, Drug form: TAB, Daily, Dosing Weight 99.574, kg, Start date: 07/21/15 9:00:00, Duration: 30 day, Stop date: 09/18/15 9:00:00Notes: (Same as: Folvite) No Longer Active 07/21/2015 [facility] Thiamine 100 mg, 1 tab, Route: PO, Drug form: TAB, Daily, Dosing Weight 99.574, kg, Start date: 07/21/15 9:00:00, Duration: 30 day, Stop date: 09/18/15 9:00:00Notes: (Same As: Vitamin B1) No Longer Active 07/21/2015 [facility] heparin additive 25,000 unit [18 unit/kg/hr] + Premix Diluent Dextrose 5% 500 mL 500 mL, Rate: 31.1 ml/hr, Infuse over: 16.1 hr, Route: IV, Dosing Weight 86.39 kg, Total Volume: 500 mL, Start date: 07/21/15 3:49:00, Duration: 30 day, Stop date: 08/20/15 3:48:00 No Longer Active 07/21/2015 [facility] Heparin 40 unit/kg Bolus (Heparin Dosing Weight) Route: IVP, PRN, 3,500 unit, 3.5 mL, Drug form: INJ, PRN, Heparin Protocol, Start date: 07/21/15 3:49:00 Stop date: 08/20/15 3:48:00, 30 day No Longer Active 07/21/2015 [facility] Heparin 80 unit/kg Bolus (Heparin Dosing Weight) Route: IVP, PRN, 6,900 unit, 6.9 mL, Drug form: INJ, PRN, Heparin Protocol, Start date: 07/21/15 3:49:00 Stop date: 08/20/15 3:48:00, 30 day No Longer Active 07/21/2015 [facility] tramadol hydrochloride 50 MG Oral Tablet 50 mg, 1 tab, Route: PO, Drug form: TAB, Q6H, Dosing Weight 99.574, kg, PRN Pain Score 6-10, Start date: 07/21/15 3:33:00, Duration: 30 day, Stop date: 08/20/15 3:32:00Notes: Not to exceed 400mg/day. (Same As: Ultram) No Longer Active 07/21/2015 [facility] Artificial Tears 2 drp, Route: BOTH EYES, PRN, Drug form: SOLN, PRN as needed for dry eyes, Start date: 07/21/15 3:33:00 CDT, Duration: 30 day, Stop date: 09/19/15 3:32:00 CDT No Longer Active 07/21/2015 [facility] Nitroglycerin 0.4 MG Sublingual Tablet 0.4 mg, 1 tab, Route: SL, Drug form: TAB, Q5Min, Dosing Weight 99.574, kg, PRN Chest Pain, Start date: 07/21/15 3:33:00 CDT, Duration: 30 day, Stop date: 09/19/15 3:32:00 CDTNotes: (Same as:Nitroquick, Nitrostat) "Do Not Crush" Sublingual tablet No Longer Active 07/21/2015 [facility] Clonazepam 0.5 mg, 1 tab, Route: PO, Drug form: TAB, Q6H, Dosing Weight 99.574, kg, PRN Anxiety, Start date: 07/21/15 3:33:00, Duration: 30 day, Stop date: 08/20/15 3:32:00Notes: (Same As: KlonoPIN) No Longer Active 07/21/2015 [facility] Tylenol PO, Q6H, PRN Pain Score 1-5, 0 Refill(s) No Longer Active 07/21/2015 [facility] Hydrocortisone-Aloe 0.5% topical cream 1 appl, TOP, BID, # 30 gm, 0 Refill(s) No Longer Active 07/21/2015 [facility] Aspirin 81 mg, PO, Daily, 0 Refill(s) Active 07/21/2015 [facility] 24 HR Nicotine 0.875 MG/HR Transdermal Patch =1 patch, Transdermal, Daily, 0 Refill(s) No Longer Active 07/21/2015 [facility] Clonidine Hydrochloride 0.1 MG Oral Tablet 0.1 mg=1 tab, PO, QID, 0 Refill(s) No Longer Active 07/21/2015 [facility] clonazePAM 0.5 mg oral tablet 0.5 mg=1 tab, PO, PRN, Prn anxiety q 6 hrs, 0 Refill(s) No Longer Active 07/21/2015 [facility] mirtazapine 15 mg oral tablet 15 mg=1 tab, PO, Bedtime, # 30 tab, 0 Refill(s) No Longer Active 07/21/2015 [facility] Alprazolam 0.25 MG Oral Tablet 0.25 mg=1 tab, PO, BID, PRN anxiety, stress, # 20 tab, 0 Refill(s) No Longer Active 07/21/2015 [facility] tramadol hydrochloride 50 MG Oral Tablet 50 mg=1 tab, PO, Q6H, PRN Pain, PRN for pain q 6 hrs, 0 Refill(s) No Longer Active 07/21/2015 [facility] Nitroglycerin 0.4 MG Sublingual Tablet 0.4 mg=1 tab, SL, Q5Min, PRN Chest Pain, Give up to 3 doses. Call 911 if pain persists., # 25 tab, 3 Refill(s) No Longer Active 07/21/2015 [facility] Artificial Tears BOTH EYES, PRN, 1 drop each eye q 4 hours, 0 Refill(s) No Longer Active 07/21/2015 [facility] Allergies, Adverse Reactions, Alerts Substance Category Reaction Severity Reaction type Status Date Reported Comments Source Immunizations Immunization Date Given Site Status Last Updated Comments Source Results Order Name Results Value Reference Range Date Interpretation Comments Source HEMATOLOGY PT 14.0 s 12.0 - 14.7 11/29/2015 [facility] HEMATOLOGY INR 1.05 0.85 - 1.17 11/29/2015 [facility] LIPIDS CHD Risk 3.28 4.00 - 7.30 11/29/2015 [facility] LIPIDS Chol 210 mg/dL <=199 mg/dL 11/29/2015 [facility] LIPIDS Trig 69 mg/dL <=149 mg/dL 11/29/2015 [facility] LIPIDS HDL 64 mg/dL >=61 mg/dL 11/29/2015 [facility] LIPIDS VLDL 14 11/29/2015 [facility] LIPIDS LDL (Calculated) 132 mg/dL <=99 mg/dL 11/29/2015 [facility] CARDIAC ENZYMES Troponin-I null 0.00 - 0.40 11/29/2015 [facility] CARDIAC ENZYMES Total CK 48 unit/L 12 - 191 11/29/2015 [facility] CARDIAC ENZYMES Troponin-I null 0.00 - 0.40 2015 [facility] CARDIAC ENZYMES Total CK 50 unit/L 12 - 191 2015 [facility] Chest CTA Chest CTA Patient Name: ALETHA LOWERY : 1955; Age: 59 years Male MR: [id number] Study: Chest CTA 2015 3:09 PM CDT [...] JTHOLANY-PC 2015 - - Read by: Mikhail Kurtz MD Dictated Date/time: 11/28/15 18:01 Electronically Signed by: Mikhail Kurtz MD 11/28/15 18:09 FINAL REPORT [facility] CARDIAC ENZYMES CK MB Index 4.7 0.0 - 2.5 2015 [facility] CARDIAC ENZYMES BNP 92 pg/mL <=100 pg/mL 2015 [facility] CARDIAC ENZYMES Troponin-I null 0.00 - 0.40 2015 [facility] CARDIAC ENZYMES CK MB 2.7 ng/mL 0.5 - 3.6 2015 [facility] CARDIAC ENZYMES Total CK 57 unit/L 12 - 191 2015 [facility] CHEM PANEL eGFR 96 mL/min/1.73m2 2015 Result [...] should be multiplied by the estimated BMI. [facility] CHEM PANEL ALT 26 unit/L 0 - 65 2015 [facility] CHEM PANEL Albumin Lvl 3.7 g/dL 3.5 - 5.0 2015 [facility] CHEM PANEL AST 16 unit/L 0 - 37 2015 [facility] CHEM PANEL Calcium Lvl 8.6 mg/dL 8.5 - 10.5 2015 [facility] CHEM PANEL Total Protein 7.2 g/dL 6.4 - 8.4 2015 [facility] CHEM PANEL AGAP 10.0 meq/L 10.0 - 20.0 2015 [facility] CHEM PANEL Alk Phos 64 unit/L 39 [...] BUN 11 mg/dL 7 - 22 2015 [facility] CHEM PANEL Glucose Lvl 86 mg/dL 70 - 99 2015 [facility] CHEM PANEL Creatinine Lvl 0.86 mg/dL 0.50 - 1.40 2015 [facility] HEMATOLOGY Segs-Bands # 7.8 K/CMM 1.5 - 8.1 2015 [facility] HEMATOLOGY Basophils 0.9 % 0.0 - 1.0 2015 [facility] HEMATOLOGY Basophils # 0.1 K/CMM 0.0 - 0.2 2015 [facility] HEMATOLOGY Segs 67.3 % 45.0 - 75.0 2015 [facility] HEMATOLOGY Monocytes # 0.7 K/CMM 0.0 - 0.8 2015 [facility] HEMATOLOGY Lymphocytes # 3.0 K/CMM 1.0 - 5.5 2015 [facility] HEMATOLOGY Eosinophils 0.2 % 0.0 - 4.0 2015 [facility] HEMATOLOGY Lymphocytes 25.5 % 20.0 - 40.0 2015 [facility] HEMATOLOGY Monocytes 6.1 % 2.0 - 12.0 2015 [facility] HEMATOLOGY RBC 5.08 M/CMM 4.70 - 6.10 2015 [facility] HEMATOLOGY WBC 11.6 K/CMM 3.7 - 10.4 2015 [facility] HEMATOLOGY MPV 7.4 fL 7.4 - 10.4 2015 [facility] [place] Hct 43.6 % 42.0 - 54.0 2015 [facility] [place] Hgb 14.0 g/dL 14.0 - 18.0 2015 [facility] [place] MCV 85.7 fL 80.0 - 94.0 2015 [facility] [place] MCH 27.5 pg 27.0 - 31.0 2015 [facility] [place] RDW 15.0 % 11.5 - 14.5 2015 [facility] [place] Platelet 244 K/CMM 133 - 450 2015 [facility] [place] MCHC 32.1 g/dL 32.0 - 36.0 2015 [facility] Chest 1view DX Chest 1view DX Study: Chest 1view DX Clinical Indication: Dyspnea Comparison: Chest x-ray from 08/21/2015 FINDINGS: Left sided dual-chamber pacemaker is stable. Cardiac silhouette is normal in size. Small right pleural effusion is seen. There is no pneumothorax. The osseous structures are unremarkable. IMPRESSION: Small right pleural effusion SL: [id number] 2015 - - Read by: Ivan Lugo MD Dictated Date/time: 11/28/15 11:17 Electronically Signed by: Ivan Lugo MD 11/28/15 11:18 FINAL REPORT [facility] ELECTROLYTES AGAP 14.0 meq/L 10.0 - 20.0 08/22/2015 [facility] ELECTROLYTES Calcium Lvl 8.3 mg/dL 8.5 - 10.5 08/22/2015 [facility] ELECTROLYTES CO2 26 meq/L 24 - 32 08/22/2015 [facility] ELECTROLYTES eGFR 104 mL/min/1.73m2 08/22/2015 Result Comment: [...] should be multiplied by the estimated BMI. [facility] ELECTROLYTES Chloride Lvl 107 meq/L 95 - 109 08/22/2015 [facility] ELECTROLYTES Potassium Lvl 4.0 meq/L 3.5 - 5.1 08/22/2015 [facility] ELECTROLYTES Glucose Lvl 84 mg/dL 70 - 99 08/22/2015 [facility] ELECTROLYTES Sodium Lvl 143 meq/L 135 - 145 08/22/2015 [facility] ELECTROLYTES BUN 11 mg/dL 7 - 22 08/22/2015 [facility] ELECTROLYTES Creatinine Lvl 0.71 mg/dL 0.50 - 1.40 08/22/2015 [facility] HEMATOLOGY Basophils # 0.0 K/CMM 0.0 - 0.2 08/22/2015 [facility] HEMATOLOGY Eosinophils 1.2 % 0.0 - 4.0 08/22/2015 [facility] HEMATOLOGY Monocytes 9.5 % 2.0 - 12.0 08/22/2015 [facility] HEMATOLOGY Monocytes # 0.6 K/CMM 0.0 - 0.8 08/22/2015 [facility] HEMATOLOGY Segs 59.2 % 45.0 - 75.0 08/22/2015 [facility] HEMATOLOGY Lymphocytes 29.8 % 20.0 - 40.0 08/22/2015 [facility] HEMATOLOGY Basophils 0.3 % 0.0 - 1.0 08/22/2015 [facility] HEMATOLOGY Segs-Bands # 3.8 K/CMM 1.5 - 8.1 08/22/2015 [facility] HEMATOLOGY Eosinophils # 0.1 K/CMM 0.0 - 0.5 08/22/2015 [facility] HEMATOLOGY Lymphocytes # 1.9 K/CMM 1.0 - 5.5 08/22/2015 [facility] HEMATOLOGY RBC 4.51 M/CMM 4.70 - 6.10 08/22/2015 [facility] HEMATOLOGY WBC 6.5 K/CMM 3.7 - 10.4 08/22/2015 [facility] HEMATOLOGY MCV 87.9 fL 80.0 - 94.0 08/22/2015 [facility] HEMATOLOGY Hct 39.6 % 42.0 - 54.0 08/22/2015 [facility] HEMATOLOGY Hgb 12.7 g/dL 14.0 - 18.0 08/22/2015 [facility] HEMATOLOGY MCHC 32.1 g/dL 32.0 - 36.0 08/22/2015 [facility] HEMATOLOGY MCH 28.2 pg 27.0 - 31.0 08/22/2015 [facility] HEMATOLOGY MPV 8.1 fL 7.4 - 10.4 08/22/2015 [facility] HEMATOLOGY Platelet 161 K/CMM 133 - 450 08/22/2015 [facility] HEMATOLOGY RDW 16.3 % 11.5 - 14.5 08/22/2015 [facility] Chest 1view DX Chest 1view DX Patient Name: ALETHA LOWERY. : 1955; Age: 59 years y/o; Male. MR: [id number]. Ordering Physician: Jocy Bailon MD. PORTABLE CHEST [...] Noe Deras MD 08/21/15 18:21 FINAL REPORT [facility] Knee 1-2 Views Bilateral DX Knee 1-2 [...] Raulito Arthur MD 08/20/15 16:05 FINAL REPORT [facility] Brain wo contrast CT Brain wo contrast CT Patient Name: ALETHA LOWERY : 1955; Age: 59 years; Gender: Male MR: [id number] Ordering Physician: Piter Leslie MD PROCEDURE: CT head without contrast INDICATION: Pain Post Trauma. Fall with trauma to the frontal area. Patient is on blood thinners. TECHNIQUE: CT images were obtained from the foramen magnum to the vertex without the use of intravenous contrast on a multidetector CT. Total CT radiation dose: WYC=2697 mGy-cm COMPARISON: None. FINDINGS: No evidence for [...] 3. Possible mild right maxillary sinusitis. SL: [id number] 08/20/2015 - - Read by: Colin Howard MD Dictated Date/time: 08/20/15 15:44 Electronically Signed by: Colin Howard MD 08/20/15 15:47 FINAL REPORT [facility] CARDIAC ENZYMES Troponin-I null 0.00 - 0.40 08/19/2015 [facility] CARDIAC ENZYMES Total CK 54 unit/L 12 - 191 08/19/2015 [facility] CARDIAC ENZYMES Troponin-I null 0.00 - 0.40 08/18/2015 [facility] CARDIAC ENZYMES Total CK 30 unit/L 12 - 191 08/18/2015 [facility] CARDIAC ENZYMES Troponin-I null 0.00 - 0.40 08/18/2015 [facility] HEMATOLOGY PT 24.6 s 12.0 - 14.7 08/18/2015 [facility] HEMATOLOGY INR 2.18 0.85 - 1.17 08/18/2015 [facility] BACTERIAL - SEROLOGY MRSA by PCR Negative (08/18/15 1:44 PM) 08/18/2015 [facility] CARDIAC ENZYMES CK MB Index 3.2 0.0 - 2.5 08/18/2015 [facility] CARDIAC ENZYMES CK MB 2.0 ng/mL 0.5 - 3.6 08/18/2015 [facility] CARDIAC ENZYMES Total CK 62 unit/L 12 - 191 08/18/2015 [facility] CHEM PANEL Lipase Lvl 114 unit/L 73 - 393 08/18/2015 [facility] CHEM PANEL eGFR 97 mL/min/1.73m2 08/18/2015 Result [...] should be multiplied by the estimated BMI. [facility] CHEM PANEL AGAP 14.6 meq/L 10.0 - 20.0 08/18/2015 [facility] CHEM PANEL CO2 23 meq/L 24 - 32 08/18/2015 [facility] CHEM PANEL Calcium Lvl 8.7 mg/dL 8.5 - 10.5 08/18/2015 [facility] CHEM PANEL Globulin 3.6 g/dL 2.0 - 4.0 08/18/2015 [facility] CHEM PANEL Total Protein 6.7 g/dL 6.4 - 8.4 08/18/2015 [facility] CHEM PANEL Albumin Lvl 3.1 g/dL 3.5 - 5.0 08/18/2015 [facility] CHEM PANEL AST 21 unit/L 0 - 37 08/18/2015 [facility] CHEM PANEL ALT 36 unit/L 0 - 65 08/18/2015 [facility] CHEM PANEL B/C Ratio 25 6 - 25 08/18/2015 [facility] CHEM PANEL Bili Total 0.4 mg/dL 0.2 - 1.3 08/18/2015 [facility] CHEM PANEL A/G Ratio 0.9 0.7 - 1.6 08/18/2015 [facility] CHEM PANEL Alk Phos 64 unit/L 39 - 136 08/18/2015 [facility] CHEM PANEL Glucose Lvl 85 mg/dL 70 - 99 08/18/2015 [facility] CHEM PANEL BUN 21 mg/dL 7 - 22 08/18/2015 [facility] CHEM PANEL Creatinine Lvl 0.83 mg/dL 0.50 - 1.40 08/18/2015 [facility] CHEM PANEL Potassium Lvl 4.6 meq/L 3.5 - 5.1 08/18/2015 [facility] CHEM PANEL Sodium Lvl 140 meq/L 135 - 145 08/18/2015 [facility] CHEM PANEL Chloride Lvl 107 meq/L 95 - 109 08/18/2015 [facility] HEMATOLOGY Basophils # 0.1 K/CMM 0.0 - 0.2 08/18/2015 [facility] HEMATOLOGY Eosinophils # 0.1 K/CMM 0.0 - 0.5 08/18/2015 [facility] HEMATOLOGY Monocytes # 1.0 K/CMM 0.0 - 0.8 08/18/2015 [facility] HEMATOLOGY Lymphocytes # 2.4 K/CMM 1.0 - 5.5 08/18/2015 [facility] HEMATOLOGY Eosinophils 0.5 % 0.0 - 4.0 08/18/2015 [facility] HEMATOLOGY Monocytes 7.3 % 2.0 - 12.0 08/18/2015 [facility] HEMATOLOGY Segs-Bands # 10.0 K/CMM 1.5 - 8.1 08/18/2015 [facility] HEMATOLOGY Basophils 0.4 % 0.0 - 1.0 08/18/2015 [facility] HEMATOLOGY Lymphocytes 18.0 % 20.0 - 40.0 08/18/2015 [facility] HEMATOLOGY Segs 73.8 % 45.0 - 75.0 08/18/2015 [facility] HEMATOLOGY Plt Morph Normal (4/15/16 9:22 AM) 08/18/2015 [facility] RBC Morph Normal (08/18/15 9:22 AM) 08/18/2015 [facility] HEMATOLOGY Platelet 207 K/CMM 133 - 450 08/18/2015 Result Comment: Reviewed. [facility] RBC 4.79 M/CMM 4.70 - 6.10 08/18/2015 [facility] WBC 13.5 K/CMM 3.7 - 10.4 08/18/2015 [facility] HEMATOLOGY Hgb 13.7 g/dL 14.0 - 18.0 08/18/2015 [facility] Hct 42.1 % 42.0 - 54.0 08/18/2015 [facility] HEMATOLOGY RDW 16.1 % 11.5 - 14.5 08/18/2015 [facility] HEMATOLOGY MPV 7.7 fL 7.4 - 10.4 08/18/2015 [facility] MCH 28.5 pg 27.0 - 31.0 08/18/2015 [facility] HEMATOLOGY MCV 87.9 fL 80.0 - 94.0 08/18/2015 [facility] MCHC 32.4 g/dL 32.0 - 36.0 08/18/2015 [facility] Chest 1view DX Chest 1view DX CHEST [...] and/or thickening. 3. Enlarged cardiac silhouette. SL: [id number] 08/18/2015 - - Read by: Bob Charles MD Dictated Date/time: 08/18/15 09:14 Electronically Signed by: Bob Charles MD 08/18/15 09:16 FINAL REPORT [facility] ELECTROLYTES AGAP 11.7 meq/L 10.0 - 20.0 08/17/2015 [facility] ELECTROLYTES eGFR 112 mL/min/1.73m2 08/17/2015 Result Comment: [...] should be multiplied by the estimated BMI. [facility] ELECTROLYTES Calcium Lvl 7.1 mg/dL 8.5 - 10.5 08/17/2015 [facility] ELECTROLYTES Creatinine Lvl 0.58 mg/dL 0.50 - 1.40 08/17/2015 [facility] ELECTROLYTES Sodium Lvl 146 meq/L 135 - 145 08/17/2015 [facility] ELECTROLYTES BUN 13 mg/dL 7 - 22 08/17/2015 [facility] ELECTROLYTES Glucose Lvl 78 mg/dL 70 - 99 08/17/2015 [facility] ELECTROLYTES Chloride Lvl 115 meq/L 95 - 109 08/17/2015 [facility] ELECTROLYTES CO2 23 meq/L 24 - 32 08/17/2015 [facility] ELECTROLYTES Potassium Lvl 3.7 meq/L 3.5 - 5.1 08/17/2015 [facility] HEMATOLOGY MCH 28.8 pg 27.0 - 31.0 08/17/2015 [facility] HEMATOLOGY Hct 36.5 % 42.0 - 54.0 08/17/2015 [facility] HEMATOLOGY MCV 88.6 fL 80.0 - 94.0 08/17/2015 [facility] HEMATOLOGY Hgb 11.8 g/dL 14.0 - 18.0 08/17/2015 [facility] HEMATOLOGY Platelet 149 K/CMM 133 - 450 08/17/2015 [facility] HEMATOLOGY MCHC 32.5 g/dL 32.0 - 36.0 08/17/2015 [facility] HEMATOLOGY RDW 15.4 % 11.5 - 14.5 08/17/2015 [facility] HEMATOLOGY MPV 7.2 fL 7.4 - 10.4 08/17/2015 [facility] HEMATOLOGY WBC 8.5 K/CMM 3.7 - 10.4 08/17/2015 [facility] HEMATOLOGY RBC 4.12 M/CMM 4.70 - 6.10 08/17/2015 [facility] HEMATOLOGY Monocytes 7.1 % 2.0 - 12.0 08/17/2015 [facility] HEMATOLOGY Basophils 0.4 % 0.0 - 1.0 08/17/2015 [facility] HEMATOLOGY Segs-Bands # 5.8 K/CMM 1.5 - 8.1 08/17/2015 [facility] HEMATOLOGY Eosinophils 0.5 % 0.0 - 4.0 08/17/2015 [facility] HEMATOLOGY Lymphocytes 23.4 % 20.0 - 40.0 08/17/2015 [facility] HEMATOLOGY Segs 68.6 % 45.0 - 75.0 08/17/2015 [facility] HEMATOLOGY Lymphocytes # 2.0 K/CMM 1.0 - 5.5 08/17/2015 [facility] HEMATOLOGY Monocytes # 0.6 K/CMM 0.0 - 0.8 08/17/2015 [facility] HEMATOLOGY INR 2.09 0.85 - 1.17 08/17/2015 [facility] HEMATOLOGY PT 23.8 s 12.0 - 14.7 08/17/2015 [facility] HEMATOLOGY INR 1.84 0.85 - 1.17 08/16/2015 [facility] HEMATOLOGY PT 21.6 s 12.0 - 14.7 08/16/2015 [facility] HEMATOLOGY INR 2.24 0.85 - 1.17 08/15/2015 [facility] HEMATOLOGY PT 25.1 s 12.0 - 14.7 08/15/2015 [facility] ELECTROLYTES Potassium Lvl 4.2 meq/L 3.5 - 5.1 08/14/2015 [facility] ELECTROLYTES Chloride Lvl 107 meq/L 95 - 109 08/14/2015 [facility] ELECTROLYTES Creatinine Lvl 0.93 mg/dL 0.50 - 1.40 08/14/2015 [facility] ELECTROLYTES Sodium Lvl 140 meq/L 135 - 145 08/14/2015 [facility] ELECTROLYTES BUN 27 mg/dL 7 - 22 08/14/2015 [facility] ELECTROLYTES Calcium Lvl 8.5 mg/dL 8.5 - 10.5 08/14/2015 [facility] ELECTROLYTES CO2 26 meq/L 24 - 32 08/14/2015 [facility] ELECTROLYTES eGFR 91 mL/min/1.73m2 08/14/2015 Result Comment: [...] should be multiplied by the estimated BMI. [facility] ELECTROLYTES Glucose Lvl 84 mg/dL 70 - 99 08/14/2015 [facility] ELECTROLYTES AGAP 11.2 meq/L 10.0 - 20.0 08/14/2015 [facility] CHEM PANEL Magnesium Lvl 2.2 mg/dL 1.8 - 2.4 08/10/2015 [facility] CHEM PANEL eGFR 102 mL/min/1.73m2 08/10/2015 Result [...] should be multiplied by the estimated BMI. [facility] CHEM PANEL Calcium Lvl 8.8 mg/dL 8.5 - 10.5 08/10/2015 [facility] CHEM PANEL CO2 28 meq/L 24 - 32 08/10/2015 [facility] CHEM PANEL Chloride Lvl 106 meq/L 95 - 109 08/10/2015 [facility] CHEM PANEL Potassium Lvl 4.2 meq/L 3.5 - 5.1 08/10/2015 [facility] CHEM PANEL Sodium Lvl 140 meq/L 135 - 145 08/10/2015 [facility] CHEM PANEL BUN 20 mg/dL 7 - 22 08/10/2015 [facility] CHEM PANEL Creatinine Lvl 0.74 mg/dL 0.50 - 1.40 08/10/2015 [facility] CHEM PANEL Glucose Lvl 78 mg/dL 70 - 99 08/10/2015 [facility] CHEM PANEL AGAP 10.2 meq/L 10.0 - 20.0 08/10/2015 [facility] CHEM PANEL Phosphorus 3.7 mg/dL 2.5 - 4.5 08/10/2015 [facility] HEMATOLOGY RBC Morph Normal (08/10/15 5:29 AM) 08/10/2015 [facility] HEMATOLOGY Plt Morph Normal (08/10/15 5:29 AM) 08/10/2015 [facility] HEMATOLOGY Atypical Lymphs 0.0 % <=0.0 % 08/10/2015 [facility] HEMATOLOGY Myelocytes 1.0 % <=0.0 % 08/10/2015 [facility] HEMATOLOGY Metamyelocytes 1.0 % 0.0 - 1.0 08/10/2015 [facility] HEMATOLOGY Lymphocytes 24.0 % 20.0 - 40.0 08/10/2015 [facility] HEMATOLOGY Monocytes 6.0 % 2.0 - 12.0 08/10/2015 [facility] HEMATOLOGY Segs-Bands # 8.4 K/CMM 1.5 - 8.1 08/10/2015 [facility] HEMATOLOGY Bands 1.0 % 0.0 - 11.0 08/10/2015 [facility] HEMATOLOGY Monocytes # 0.7 K/CMM 0.0 - 0.8 08/10/2015 [facility] HEMATOLOGY Lymphocytes # 3.0 K/CMM 1.0 - 5.5 08/10/2015 [facility] HEMATOLOGY Segs 67.0 % 45.0 - 75.0 08/10/2015 [facility] HEMATOLOGY WBC 12.3 K/CMM 3.7 - 10.4 08/10/2015 [facility] HEMATOLOGY RBC 4.82 M/CMM 4.70 - 6.10 08/10/2015 [facility] HEMATOLOGY Hgb 13.6 g/dL 14.0 - 18.0 08/10/2015 [facility] HEMATOLOGY MCH 28.3 pg 27.0 - 31.0 08/10/2015 [facility] HEMATOLOGY Platelet 227 K/CMM 133 - 450 08/10/2015 [facility] HEMATOLOGY MCHC 32.4 g/dL 32.0 - 36.0 08/10/2015 [facility] HEMATOLOGY RDW 15.3 % 11.5 - 14.5 08/10/2015 [facility] HEMATOLOGY MCV 87.2 fL 80.0 - 94.0 08/10/2015 [facility] HEMATOLOGY Hct 42.0 % 42.0 - 54.0 08/10/2015 [facility] HEMATOLOGY MPV 7.2 fL 7.4 - 10.4 08/10/2015 [facility] CHEM PANEL Magnesium Lvl 2.1 mg/dL 1.8 - 2.4 08/09/2015 [facility] CHEM PANEL Phosphorus 3.9 mg/dL 2.5 - 4.5 08/09/2015 [facility] HEMATOLOGY Myelocytes 1.0 % <=0.0 % 08/09/2015 [facility] HEMATOLOGY RBC Morph Normal (08/09/15 4:34 AM) 08/09/2015 [facility] HEMATOLOGY Atypical Lymphs 1.0 % <=0.0 % 08/09/2015 [facility] HEMATOLOGY Monocytes # 0.4 K/CMM 0.0 - 0.8 08/09/2015 [facility] HEMATOLOGY Segs-Bands # 7.7 K/CMM 1.5 - 8.1 08/09/2015 [facility] HEMATOLOGY Lymphocytes # 2.8 K/CMM 1.0 - 5.5 08/09/2015 [facility] HEMATOLOGY Plt Morph Normal (08/09/15 4:34 AM) 08/09/2015 [facility] HEMATOLOGY Lymphocytes 24.0 % 20.0 - 40.0 08/09/2015 [facility] HEMATOLOGY Monocytes 4.0 % 2.0 - 12.0 08/09/2015 [facility] HEMATOLOGY Segs 65.0 % 45.0 - 75.0 08/09/2015 [facility] HEMATOLOGY Bands 4.0 % 0.0 - 11.0 08/09/2015 [facility] HEMATOLOGY Metamyelocytes 1.0 % 0.0 - 1.0 08/09/2015 [facility] HEMATOLOGY MCV 88.1 fL 80.0 - 94.0 08/09/2015 [facility] HEMATOLOGY MCHC 32.6 g/dL 32.0 - 36.0 08/09/2015 [facility] HEMATOLOGY MCH 28.7 pg 27.0 - 31.0 08/09/2015 [facility] HEMATOLOGY Hct 42.6 % 42.0 - 54.0 08/09/2015 [facility] HEMATOLOGY Hgb 13.9 g/dL 14.0 - 18.0 08/09/2015 [facility] HEMATOLOGY MPV 7.4 fL 7.4 - 10.4 08/09/2015 [facility] HEMATOLOGY RDW 15.4 % 11.5 - 14.5 08/09/2015 [facility] HEMATOLOGY Platelet 205 K/CMM 133 - 450 08/09/2015 [facility] HEMATOLOGY RBC 4.83 M/CMM 4.70 - 6.10 08/09/2015 [facility] HEMATOLOGY WBC 11.1 K/CMM 3.7 - 10.4 08/09/2015 [facility] CHEM PANEL Magnesium Lvl 2.2 mg/dL 1.8 - 2.4 08/08/2015 [facility] CHEM PANEL Phosphorus 4.1 mg/dL 2.5 - 4.5 08/08/2015 [facility] HEMATOLOGY Eosinophils # 0.2 K/CMM 0.0 - 0.5 08/08/2015 [facility] HEMATOLOGY Basophils # 0.1 K/CMM 0.0 - 0.2 08/08/2015 [facility] HEMATOLOGY Plt Morph Normal (08/08/15 3:55 AM) 08/08/2015 [facility] HEMATOLOGY RBC Morph Normal (08/08/15 3:55 AM) 08/08/2015 [facility] HEMATOLOGY Basophils 0.5 % 0.0 - 1.0 08/08/2015 [facility] HEMATOLOGY Eosinophils 1.2 % 0.0 - 4.0 08/08/2015 [facility] HEMATOLOGY Basophils 0.7 % 0.0 - 1.0 08/07/2015 [facility] HEMATOLOGY Eosinophils 0.4 % 0.0 - 4.0 08/07/2015 [facility] HEMATOLOGY Basophils # 0.1 K/CMM 0.0 - 0.2 08/07/2015 [facility] HEMATOLOGY PTT 69.5 s 22.9 - 35.8 08/06/2015 [facility] Chest 1view DX Chest 1view DX EXAM: [...] Sara Ritter MD 08/06/15 09:53 FINAL REPORT [facility] HEMATOLOGY Toxic Gran See Note 1 (08/06/15 3:33 AM) None Seen 08/06/2015 Result Comment: Slight [facility] HEMATOLOGY Atypical Lymphs 0.0 % <=0.0 % 08/06/2015 [facility] HEMATOLOGY Bands 1.0 % 0.0 - 11.0 08/06/2015 [facility] HEMATOLOGY PTT 64.0 s 22.9 - 35.8 08/05/2015 [facility] HEMATOLOGY Toxic Gran slight 08/05/2015 [facility] HEMATOLOGY PTT 68.9 s 22.9 - 35.8 08/05/2015 [facility] Chest 1view DX Chest 1view DX EXAM: [...] by: Ángel Sue 08/02/15 13:46 FINAL REPORT [facility] HEMATOLOGY Anisocyte 1+ *ABN* (07/31/15 10:41 AM) None Seen 07/31/2015 [facility] HEMATOLOGY Basophils # 0.2 K/CMM 0.0 - 0.2 07/31/2015 [facility] Chest 1view DX Chest 1view DX EXAM: [...] by: Ángel Sue 07/31/15 09:00 FINAL REPORT [facility] CHEM PANEL Lactic Acid Lvl 1.0 mMol/L 0.5 - 2.2 07/30/2015 [facility] HVI VAS Venous Lower Ext Bilat Doppler [...] - This report was dictated by a Manager Managed [employer]/Fellow. I have personally reviewed the images as well as the Resident's interpretation and agree with the findings. Read by: Arianna Lala MD Resident: Arianna Lala MD Dictated Date/time: 07/30/15 19:12 Electronically Signed by: Skinny Riley MD 07/31/15 08:30 FINAL REPORT [facility] Chest 1view DX Chest 1view DX EXAM: [...] by: Ángel Sue 07/29/15 11:59 FINAL REPORT [facility] HEMATOLOGY POC Activated Clotting Time 206 s 07/28/2015 [facility] HEMATOLOGY Eosinophils # 0.1 K/CMM 0.0 - 0.5 07/28/2015 [facility] HEMATOLOGY Eosinophils # 0.1 K/CMM 0.0 - 0.5 07/27/2015 [facility] LIPIDS HDL 45 mg/dL >=61 mg/dL 07/25/2015 [facility] LIPIDS Chol 162 mg/dL <=199 mg/dL 07/25/2015 [facility] LIPIDS Trig 74 mg/dL <=149 mg/dL 07/25/2015 [facility] LIPIDS VLDL 15 07/25/2015 [facility] LIPIDS LDL (Calculated) 102 mg/dL <=99 mg/dL 07/25/2015 [facility] LIPIDS CHD Risk 3.60 4.00 - 7.30 07/25/2015 [facility] CARDIAC ENZYMES Troponin-I 0.09 ng/mL 0.00 - 0.40 07/21/2015 [facility] CARDIAC ENZYMES Troponin-T 0.035 ng/mL 0.000 - 0.100 07/21/2015 [facility] CARDIAC ENZYMES Total CK 36 unit/L 12 - 191 07/21/2015 [facility] HVI VAS Arterial Extracranial Doppler Bi HVI [...] - This report was dictated by a Manager Managed Care/Fellow. I have personally reviewed the images as well as the Resident's interpretation and agree with the findings. Read by: Dexter Redd (Fellow) Resident: Dexter Redd (Fellow) Dictated Date/time: 07/22/15 12:00 Electronically Signed by: Skinny Riley MD 07/25/15 07:27 FINAL REPORT [facility] CARDIAC ENZYMES Troponin-I 0.10 ng/mL 0.00 - 0.40 07/21/2015 [facility] CARDIAC ENZYMES Total CK 32 unit/L 12 - 191 07/21/2015 [facility] CARDIAC ENZYMES BNP 158 pg/mL <=100 pg/mL 07/21/2015 [facility] CHEM PANEL A/G Ratio 0.9 0.7 - 1.6 07/21/2015 [facility] CHEM PANEL Bili Total 0.8 mg/dL 0.2 - 1.3 07/21/2015 [facility] CHEM PANEL Alk Phos 59 unit/L 39 - 136 07/21/2015 [facility] CHEM PANEL Globulin 3.3 g/dL 2.0 - 4.0 07/21/2015 [facility] CHEM PANEL B/C Ratio 14 6 - 25 07/21/2015 [facility] CHEM PANEL AST 6 unit/L 0 - 37 07/21/2015 [facility] CHEM PANEL ALT 15 unit/L 0 - 65 07/21/2015 [facility] CHEM PANEL Albumin Lvl 2.9 g/dL 3.5 - 5.0 07/21/2015 [facility] CHEM PANEL Total Protein 6.2 g/dL 6.4 - 8.4 07/21/2015 [facility] CHEM PANEL Amylase Lvl 46 unit/L 25 - 115 07/21/2015 [facility] CHEM PANEL Lipase Lvl 85 unit/L 73 - 393 07/21/2015 [facility] SPECIAL CHEMISTRY Hgb A1C 5.4 % <=5.6 % 07/21/2015 [facility] Chest 1view DX Chest 1view DX EXAM: [...] by: Saad Ferris 07/21/15 08:01 FINAL REPORT [facility] Vital Signs Vital Sign Value Date Comments Source Systolic (mm Hg) 109 12/02/2015 [facility] Diastolic (mm Hg) 76 12/02/2015 [facility] Respitory Rate 22 12/02/2015 [facility] Heart Rate 87 12/02/2015 [facility] Temperature Oral (F) 97.6 F 12/02/2015 [facility] Systolic (mm Hg) 122 12/02/2015 [facility] Diastolic (mm Hg) 82 12/02/2015 [facility] Heart Rate 74 12/02/2015 [facility] Temperature Oral (F) 97.3 F 12/02/2015 [facility] Respitory Rate 21 12/02/2015 [facility] Temperature Oral (F) 97.3 F 12/02/2015 [facility] Heart Rate 73 12/02/2015 [facility] Systolic (mm Hg) 104 12/02/2015 [facility] Diastolic (mm Hg) 67 12/02/2015 [facility] Respitory Rate 16 12/02/2015 [facility] Height 182.88 cm 2015 [facility] BMI Calculated 31.53 2015 [facility] Weight 105.455 2015 [facility] Weight 113.636 2015 [facility] Height 182.88 cm 2015 [facility] BMI Calculated 33.98 2015 [facility] Respitory Rate 20 08/23/2015 [facility] Heart Rate 83 08/23/2015 [facility] Temperature Oral (F) 97.4 F 08/23/2015 [facility] Systolic (mm Hg) 107 08/23/2015 [facility] Diastolic (mm Hg) 53 08/23/2015 [facility] Temperature Oral (F) 97.7 F 08/23/2015 [facility] Heart Rate 82 08/23/2015 [facility] Respitory Rate 20 08/23/2015 [facility] Systolic (mm Hg) 130 08/23/2015 [facility] Diastolic (mm Hg) 84 08/23/2015 [facility] Respitory Rate 20 08/23/2015 [facility] Temperature Oral (F) 97.3 F 08/23/2015 [facility] Systolic (mm Hg) 128 08/23/2015 [facility] Diastolic (mm Hg) 85 08/23/2015 [facility] Height 182.88 cm 08/18/2015 [facility] Weight 95 08/18/2015 [facility] BMI Calculated 28.4 08/18/2015 [facility] Heart Rate 83 08/18/2015 [facility] Systolic (mm Hg) 125 08/18/2015 [facility] Diastolic (mm Hg) 82 08/18/2015 [facility] Heart Rate 105 08/18/2015 [facility] Respitory Rate 18 08/18/2015 [facility] Temperature Oral (F) 97.9 F 08/18/2015 [facility] Heart Rate 83 08/18/2015 [facility] Respitory Rate 18 08/18/2015 [facility] Systolic (mm Hg) 91 08/18/2015 [facility] Diastolic (mm Hg) 67 08/18/2015 [facility] Temperature Oral (F) 97.7 F 08/17/2015 [facility] Systolic (mm Hg) 102 08/17/2015 [facility] Diastolic (mm Hg) 71 08/17/2015 [facility] Respitory Rate 18 08/17/2015 [facility] Heart Rate 81 08/17/2015 [facility] Temperature Oral (F) 97.7 F 08/17/2015 [facility] BMI Calculated 29.77 07/21/2015 [facility] Weight 99.574 07/21/2015 [facility] Height 182.88 cm 07/21/2015 [facility] Encounters Location Location Details Encounter Type Encounter Number Reason For Visit Attending Provider ADM Date DC Date Status Source [facility] Inpatient [id number] Arie Chung 07/21/2015 08/18/2015 [facility] OBS Observation Patient [id number] Elham Bryson 08/18/2015 08/23/2015 [facility] Inpatient [id number] Octavio Dc Jr 2015 12/02/2015 [facility] Procedures Procedure Code Date Perfomer Comments Source Insertion of cardiac pacemaker [id number] [facility]
[2018-06-03] MEDS ORDERED: ALBUTEROL SULF 0.083% NEB SOLN 3 ML NEB NEB STA (17:19)
[2018-06-03] MEDS ORDERED: IPRATROPIUM BROMIDE 0.02% 2.5 ML NEB NEB STA (17:19)
[2018-06-03] MEDS ORDERED: METHYLPREDNISOLONE SOD SUCC 125 MG/2ML VIAL IV STA (17:19)
[2018-06-03] MEDS ORDERED: ALBUTEROL SULF 0.083% NEB SOLN 3 ML NEB ONE (17:37)
[2018-06-03 18:28] LABS: BASOPHILS % 0.2 % (0.0-1.0); EOSINOPHILS % 0.1 % (0.0-6.0); HEMATOCRIT 37.9 % (38.2-49.6); HEMOGLOBIN 11.6 g/dL (14.0-18.0); LYMPHOCYTES # (AUTO) 1.8 (1.0-3.2); LYMPHOCYTES % 11.2 % (18.0-39.1); MEAN CORPUSCULAR HEMOGLOBIN 28.6 pg (28-32); MEAN CORPUSCULAR HGB CONC 30.6 g/dL (31-35); MEAN CORPUSCULAR VOLUME 93.3 fL (81-99); MONOCYTES # (AUTO) 1.3 (0.2-0.8); MONOCYTES % 8.2 % (4.4-11.3); NEUTROPHILS # (AUTO) 12.5 (2.1-6.9); NEUTROPHILS % 79.5 % (38.7-80.0); PLATELET COUNT 284 x10e3/uL (140-360); RED BLOOD COUNT 4.06 x10e6/uL (4.3-5.7); RED CELL DISTRIBUTION WIDTH 14.4 % (11.7-14.4)
[2018-06-03 18:37] LABS: INR 0.87; PROTHROMBIN TIME 12.6 seconds (11.9-14.5)
[2018-06-03 18:38] LABS: PARTIAL THROMBOPLASTIN TIME 23.7 seconds (23.8-35.5)
[2018-06-03 18:46] LABS: ALANINE AMINOTRANSFERASE 17 IU/L (0-55); ALBUMIN/GLOBULIN RATIO 1.2 (0.8-2.0); ALKALINE PHOSPHATASE 47 IU/L (40-150); ANION GAP 13.2 mmol/L (8-16); BLOOD UREA NITROGEN 13 mg/dL (7-26); BUN/CREATININE RATIO 17 (6-25); CALCIUM 8.7 mg/dL (8.4-10.2); CARBON DIOXIDE 31 mmol/L (22-29); CHLORIDE 100 mmol/L (98-107); CREATINE KINASE 34 IU/L (30-200); CREATININE, SERUM 0.75 mg/dL (0.72-1.25); EST GLOMERULAR FILTRATION RATE > 60 ML/MIN (60-); GLUCOSE 82 mg/dL (74-118); POTASSIUM 4.2 mmol/L (3.5-5.1); SODIUM 140 mmol/L (136-145)
--- NOTE | 2018-06-03 18:48 | Diagnostic Imaging Report ---
EXAM: XR CHEST 1 VIEW DATE: 06/03/2018 5:19 PM INDICATION: Shortness of breath COMPARISON: 12-18, no report available FINDINGS: Lines and Tubes: Right PICC no longer seen. Right IJ catheter tip superior SVC. Left chest wall pacemaker stable. Heart and Mediastinum: Prominent. Lungs and Pleura: Mild opacities mid/lower lungs. Bones and Soft Tissues: No acute findings. IMPRESSION: 1. Mild edema. Signed by: Dr. Nelson Chow MD on 06/03/2018 6:44 PM
[2018-06-03] MEDS ORDERED: SODIUM CHLORIDE 0.9% 1000ML 1,000 ML IV SCH (19:15)
[2018-06-03] MEDS ORDERED: KETOROLAC TROMETHAMINE 30 MG/ML VIAL IV ONE (19:15)
--- NOTE | 2018-06-03 20:28 | Diagnostic Imaging Report ---
EXAM: CTA Chest WITH contrast / Pulmonary Embolus Study INDICATION: Shortness of breath COMPARISON: None. TECHNIQUE: Angiogram of the chest was obtained using a multidetector helical scanner after administration of IV contrast. Coronal and sagittal reformations were obtained. Pulmonary embolus protocol. IV CONTRAST: 100 mL Isovue-370 COMPLICATIONS: None RADIATION DOSE: Total DLP: 597 mGy*cm Estimated effective dose: (DLP x 0.015 x size factor) mSv CTDIvol has been reviewed. It is below the limits set by the Radiation Protocol Committee (RPC). Appropriate CT dose reduction techniques were utilized. FINDINGS: Lines and Tubes: Pacemaker. Lower Neck: Visualized thyroid gland unremarkable. Heart and Great Vessels: The aorta and main pulmonary artery measure 41 and 34 mm. respectively. No central pulmonary embolus. Bolus timing somewhat limits peripheral lower lobe evaluation with no definite embolus. Coronary artery vascular calcifications. No significant pericardial effusion. Lymph Nodes: Small scattered mediastinal lymph nodes not distinctly enlarged by size criteria. Lungs: Moderate centrilobular and paraseptal emphysematous changes with biapical scarring. There is no pneumothorax or pleural effusion. Moderate respiratory motion lung bases limits evaluation. Bronchial wall thickening in the lung bases present with scattered opacities present in the right lung base. 18 x 10 mm nodular density series 3 image 67 and 16 x 5 mm nodular density image 96. Upper abdomen: No acute. Bones and Soft Tissues: Remote right rib fractures. IMPRESSION: 1. No central pulmonary embolus. Peripheral evaluation limited due to respiratory motion artifact. 2. Bibasilar bronchial wall thickening with scattered opacities in the right lung base, some of which are nodular. Correlation for an acute infectious or inflammatory process, to include aspiration. Given nodularity, three-month CT follow-up recommended. 3. Right hilar lymph nodes upper limits of normal, likely reactive. 4. Moderate emphysematous changes. Signed by: Dr. Nelson Chow MD on 06/03/2018 8:25 PM
[2018-06-03] MEDS ORDERED: AZITHROMYCIN 500MG/NS 250 ML 250 ML IV SCH (20:45)
[2018-06-03] MEDS ORDERED: SODIUM CHLORIDE FLUSH 10 ML SYR INJ PRN (21:00)
[2018-06-03] MEDS ORDERED: ASPIRIN 81 MG CHEW TAB PO ONE (21:00)
[2018-06-03] MEDS ORDERED: ACETAMINOPHEN 325 MG TAB PO PRN (21:00)
[2018-06-03] MEDS: IPRATROPIUM BROMIDE 0.02% 2.5 ML NEB NEB SCH (22:05)
[2018-06-03] MEDS: ALBUTEROL SULF 0.083% NEB SOLN 3 ML NEB NEB SCH ×2 (22:05→23:48)
[2018-06-03] MEDS: CEFTRIAXONE SOD 1 GM/NS 50 ML 50 ML IV SCH (22:23)
--- NOTE | 2018-06-03 22:43 | NUR ---
PT ARRIVED ON THE UNIT VIA STRETCHER AT 2243. PT IS A&OX3. PT HAS SOB WITH AMBULATION. PT ON 2L OF O2. PT ORIENTED TO THE ROOM, BED IN LOWEST POSITION, LOCKED, BED ALARM ON, AND CALL LIGHT WITHIN REACH. ADMISSION AND HEAD TO TOE ASSESSMENT COMPLETE. WILL CONTINUE TO MONITOR.
[2018-06-03] MEDS ORDERED: IOPAMIDOL 370 MG/ML 200 ML INFUS..BTL INJ ONE (22:52)
[2018-06-03 23:00] VITALS: BP 114/76
[2018-06-03 23:44] VITALS: BP 114/76
[2018-06-04] VITALS (8 sets, daily range): BP systolic 110–154; BP diastolic 65–87
[2018-06-04] MEDS: METHYLPREDNISOLONE SOD SUCC 40 MG/ML VIAL 1ML IV SCH ×2 (01:11→06:17)
--- NOTE | 2018-06-04 01:12 | NUR ---
PER DR CURRAN MORPHINE 2MG Q4H PRN. WILL CONTINUE TO MONITOR.
[2018-06-04 02:51] LABS: CREATINE KINASE MB 2.7 ng/mL (0-5.0)
[2018-06-04] MEDS: ALBUTEROL SULF 0.083% NEB SOLN 3 ML NEB NEB SCH ×6 (02:55→23:50)
[2018-06-04] MEDS: IPRATROPIUM BROMIDE 0.02% 2.5 ML NEB NEB SCH ×7 (02:55→23:50)
--- NOTE | 2018-06-04 07:00 | NUR ---
SHIFT REPORT RECEIVED FROM NIGHT RN WHILE ROUNDING. PT DENIES NEEDS AT THIS TIME.
[2018-06-04] MEDS ORDERED: NITROGLYCERIN 0.4 MG SUBL SL PRN (08:30)
[2018-06-04] MEDS ORDERED: METOPROLOL SUCCINATE 25 MG TAB XL PO SCH (09:00)
[2018-06-04] MEDS ORDERED: CITALOPRAM HYDROBROMIDE 20 MG TAB PO SCH (09:00)
[2018-06-04] MEDS ORDERED: ISOSORBIDE MONONITRATE 30 MG TAB CR PO SCH (09:00)
[2018-06-04] MEDS: ASPIRIN 81 MG CHEW TAB PO SCH (09:46)
[2018-06-04] MEDS: RANOLAZINE 500 MG TABSR PO SCH ×2 (09:47→16:57)
[2018-06-04] MEDS: PREDNISONE 20 MG TAB PO SCH (09:47)
[2018-06-04] MEDS: LISINOPRIL 2.5 MG TAB PO SCH (09:47)
[2018-06-04] MEDS: PANTOPRAZOLE SODIUM 40 MG SUSPDR.PKT PO SCH (09:47)
[2018-06-04] MEDS: FUROSEMIDE 20 MG TAB PO SCH ×2 (09:47→16:56)
[2018-06-04] MEDS: ISOSORBIDE MONONITRATE 30 MG TAB CR PO SCH ×2 (09:48→16:56)
[2018-06-04] MEDS: ACETAMINOPHEN/CODEINE 300MG - 30MG TAB PO PRN ×2 (09:49→22:49)
[2018-06-04] MEDS ORDERED: FUROSEMIDE INJ 10 MG/ML 4 ML VIAL IV SCH ×2 (10:45)
[2018-06-04] MEDS: BUDESONIDE/FORMOTEROL 160/4.5MCG INHALER INH SCH ×2 (11:34→19:55)
--- NOTE | 2018-06-04 11:41 | NUR ---
PT WORKED WITH PT. WALKED 60 FEET. UNSTEADY AND SOB. PT USED A WALKER. PT NEEDS A WALKER WHEN DISCHARGED PER PT.
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
[2018-06-04] MEDS: MORPHINE SULFATE INJ 4 MG/ML INJ 1ML IV PRN ×2 (13:03→19:48)
--- NOTE | 2018-06-04 13:13 | Consultation ---
DATE OF CONSULTATION: June 04, 2018 CARDIOLOGY CONSULTATION REASON FOR CONSULTATION: Chest pain. HISTORY OF PRESENT ILLNESS: This is a 62-year-old man with coronary artery disease, status post PCI, chronic systolic heart failure, anomalous left anterior descending coronary artery, hypertension, hyperlipidemia, atrial fibrillation, and permanent pacemaker, who presents with complaints of chest pain. Patient indicates he was sitting down after eating yesterday afternoon when he developed chest pressure. The pain was 10/10 in severity and associated with shortness of breath with radiation to the left arm. He denies any nausea or diaphoresis. He denies any edema, orthopnea, PND, or lightheadedness. The pain lasted a couple of hours until he presented to the ER for further evaluation. REVIEW OF SYSTEMS: Negative except as per HPI. PAST MEDICAL HISTORY: Coronary artery disease with prior stent, anomalous left coronary artery, chronic systolic heart failure with EF of 44% on echocardiogram March of 2018, atrial fibrillation, hypertension, hyperlipidemia, permanent pacemaker. PAST SURGICAL HISTORY: Pacemaker insertion, PCI, reported thoracotomy possibly due to empyema per the patient. SOCIAL HISTORY: He smokes a pack a day for the last 20 years. Occasional alcohol. No illicit drugs. FAMILY HISTORY: Denies history of premature coronary artery disease or sudden cardiac . ALLERGIES: NO KNOWN DRUG ALLERGIES. MEDICATIONS: Please see medication list. PHYSICAL EXAMINATION VITALS: Temperature 97.3 degrees, pulse 72, respiratory rate 20, blood pressure 154/87, oxygen saturation 99% on 2 L nasal cannula. GENERAL: A well-developed, well-nourished man in no acute distress. Awake and alert. HEENT: Normocephalic and atraumatic. Pupils equal. No scleral icterus. NECK: Supple. No thyromegaly or cervical lymphadenopathy. No carotid bruits. LUNGS: Clear to auscultation bilaterally. No wheezes or crackles. CARDIOVASCULAR: Normal rate. Regular rhythm. No murmur. Normal S1 and S2. ABDOMEN: Soft and nontender. EXTREMITIES: No edema. NEURO: Nonfocal exam. LABS: WBC 15.65, hemoglobin 11.6, hematocrit 37.9, and platelets 284,000. Sodium 140, potassium 4.2, chloride 100, CO2 31, BUN 13, creatinine 0.75. Troponin 0.005. BNP 227. Telemetry with electronic ventricular pacemaker. IMPRESSION 1. Chest pain. 2. Anomalous left anterior descending coronary artery. 3. Coronary artery disease with prior stent without significant stenosis on most recent cardiac catheterization last year. 4. Mild systolic heart failure, ejection fraction 44% on echocardiogram in March 2018. 5. Atrial fibrillation. 6. Hypertension. 7. Hyperlipidemia. 8. Permanent pacemaker. 9. Anemia. 10. Chronic obstructive pulmonary disease. RECOMMENDATIONS: The patient has ruled out for myocardial infarction with serial cardiac biomarkers. The patient had a full cardiac evaluation 3 months prior. Continue home cardiac medications. Will give 1 dose of IV Lasix given his elevated BNP. No further cardiac evaluation is indicated at this time. We will increase the patient's antianginal therapy given his elevated blood pressure. Thank you for this consult. We will continue to follow. Job#: [id number] JENNIFER
[2018-06-04 13:37] LABS: CREATINE KINASE MB 2.5 ng/mL (0-5.0)
[2018-06-04] MEDS ORDERED: LORAZEPAM 0.5 MG TAB PO PRN (14:00)
--- NOTE | 2018-06-04 14:16 | NUR ---
CASE MANAGEMENT INITIAL ASSESSMENT Wood Craftsman to bedside to discuss plan of care with patient/family. CM/SW role and care transitions discussed. Anticipated discharge plan discussed along with duration of care. CM/SW discussed patients right to make decisions in care. CM/SW work hours given. Patient lives: AT [facility] Admit/Transfer: ER Hospital/ER visits since last admit:[facility] LAST MONTH POA/Emergency contact: NONE LISTED Current/Previous Home Health: NONE PCP/Follow-up Care: NO PCP Current/Previous DME: [facility] 02 Medications (referring to index hospitalization or the first time you were in the hospital) a. Were changes made in your medications when you were in the hospital on [date of index hospitalization]? No Note: If no or not sure, please skip to question d b. Did you understand the changes? Yes No Explain: c. Were you able to obtain your new medications right away? Yes No n/a SNF only Explain: d. Were you able to take your medications like the doctor wanted you to? Yes No Explain: e. Did the hospital give you an accurate, easy to understand list of medications when you left? Yes No n/a SNF only Explain: Scale of 1-10 how comfortable does patient feel with disease management in outpatient settin Other Services: NONE Employment Status: RETIRED Areas of Concerns: STATES HE DOES NOT HAVE TRANSPORTATION TO GO TO THE DOCTOR AT HIS ASSISTED LIVING FAC[facility] Referral Needs: [facility] Education Needs: REGARDING F/U APPTS IMM/[facility] given and signed (if applicable): N/A Goal for discharge:TO RETURN TO ASSISTED LIVING FACILITY CM/SW left business card at the bedside with contact information. Name and number was also written on the patients whiteboard. Patient verbalized understanding of discussion. CM will follow-up with ongoing discharge and transition of care needs.
--- NOTE | 2018-06-04 14:42 | Consultation ---
DATE OF CONSULTATION: June 04, 2018 PSYCHIATRIC CONSULTATION REASON FOR CONSULTATION: To evaluate the patient's mood. HISTORY OF PRESENT ILLNESS: The patient is a 62-year-old male admitted to the hospital for COPD and pneumonia. Psychiatric consultation was called to evaluate the patient's mood. As per the medical record, the patient has been living at [facility]. He is frequently admitted to the hospital for similar issues. The patient has a history of chronic AFib, DVT, end-stage COPD, coronary artery disease, coronary stent, remote NC, depression, varices. Upon evaluation today, the patient was found to be lying on the bed. He is alert, awake and oriented to situation. He reports feeling fair. He denies depression or anxiety, but he admits that he never got over the passing of his . He denies any suicidal ideation. He denies any hallucination. He denies feeling hopeless or helpless. He denies any problem with sleep or appetite. As per nursing staff, the patient constantly is complaining of pain. He is getting p.r.n. medications for the pain. PAST PSYCHIATRIC HISTORY: The patient reports a history of depression and anxiety. He denies past suicide attempts. He denies drug use but admits to occasional alcohol use. FAMILY HISTORY: Denied. SOCIAL HISTORY: The patient lives at [facility]. MENTAL STATUS EXAMINATION: The patient is an elderly, male. He is alert, awake, and oriented to situation. His mood is anxious. He denies any suicidal or homicidal ideation. Psychomotor state is passive. Affect is blunt. Denies any hallucinations. Thought process is concrete. No delusions or paranoia elicited. Insight and judgment are fair. Memory appears to be grossly intact. CURRENT MEDICATIONS 1. Azithromycin. 2. Cefuroxime. 3. Sodium chloride. 4. Acetaminophen. 5. Albuterol p.r.n. 6. Aspirin. 7. Lipitor. 8. Atrovent. 9. Symbicort. 10. Celexa 20 mg p.o. daily 11. Plavix. 12. Lasix. 13. Imdur. 14. Toradol. 15. Lisinopril. 16. Metoprolol. 17. Methylprednisolone. 18. Remeron 50 mg p.o. nightly. 19. Morphine. 20. Nitroglycerin. 21. Pantoprazole. 22. Prednisone. 23. Ranexa. CURRENT LABS: WBC 15.65, RBC 4.06, hemoglobin 11.6, hematocrit 37.9, platelets 284. Chemistries: Sodium 140, potassium 4.2, chloride 100, CO2 31, BUN 13, creatinine 0.75. ASSESSMENT 1. Adjustment disorder. 2. Mood, depression and anxiety; generalized anxiety disorder 3. History of depression. PLAN 1. Add Ativan 0.5 mg p.o. q.12 h. 2. Add Ativan 0.5 mg p.o. q.8 h. p.r.n. 3. Discontinue Celexa. 4. Continue Remeron 15 mg p.o. nightly. 5. Add Cymbalta 30 mg p.o. daily. 6. Monitor for mood. 7. Supportive therapy. Thank you for this consultation. Dictated by: DEVENDRA Reynoso Job#: [id number]
[2018-06-04] MEDS: LORAZEPAM 0.5 MG TAB PO SCH (16:56)
[2018-06-04] MEDS: METOPROLOL SUCCINATE 25 MG TAB XL PO SCH (16:57)
[2018-06-04] MEDS ORDERED: ISMO PO SCH (17:00)
--- NOTE | 2018-06-04 19:05 | NUR ---
PT IS RESTING IN BED. NO RESPIRATORY DISTRESS NOTED. BED IN THE LOWEST POSITION, LOCKED, AND CALL LIGHT WITHIN REACH. WILL CONTINUE TO MONITOR.
[2018-06-04] MEDS: CLOPIDOGREL BISULFATE 75 MG TAB PO SCH (20:03)
[2018-06-04] MEDS: ATORVASTATIN 20 MG TAB PO SCH (20:03)
[2018-06-04] MEDS: CEFTRIAXONE SOD 1 GM/NS 50 ML 50 ML IV SCH (20:03)
[2018-06-04] MEDS: MIRTAZAPINE 15 MG TAB PO SCH (20:03)
[2018-06-05] VITALS (8 sets, daily range): BP systolic 105–124; BP diastolic 75–93
[2018-06-05] MEDS: MORPHINE SULFATE INJ 4 MG/ML INJ 1ML IV PRN ×5 (02:15→18:25)
[2018-06-05] MEDS: ALBUTEROL SULF 0.083% NEB SOLN 3 ML NEB NEB SCH ×5 (03:40→20:45)
[2018-06-05] MEDS: IPRATROPIUM BROMIDE 0.02% 2.5 ML NEB NEB SCH ×5 (03:40→20:45)
[2018-06-05 07:15] LABS: ANION GAP 10.5 mmol/L (8-16); BLOOD UREA NITROGEN 12 mg/dL (7-26); BUN/CREATININE RATIO 19 (6-25); CALCIUM 8.7 mg/dL (8.4-10.2); CARBON DIOXIDE 33 mmol/L (22-29); CHLORIDE 102 mmol/L (98-107); CREATININE, SERUM 0.63 mg/dL (0.72-1.25); EST GLOMERULAR FILTRATION RATE > 60 ML/MIN (60-); GLUCOSE 93 mg/dL (74-118); POTASSIUM 4.5 mmol/L (3.5-5.1); SODIUM 141 mmol/L (136-145)
[2018-06-05] MEDS: BUDESONIDE/FORMOTEROL 160/4.5MCG INHALER INH SCH ×2 (07:21→20:45)
[2018-06-05] MEDS: ISOSORBIDE MONONITRATE 30 MG TAB CR PO SCH ×2 (09:09→17:00)
[2018-06-05] MEDS: DULOXETINE HCL 30 MG DELAYED RELEASE PO SCH (09:09)
[2018-06-05] MEDS: ASPIRIN 81 MG CHEW TAB PO SCH (09:09)
[2018-06-05] MEDS: PANTOPRAZOLE SODIUM 40 MG SUSPDR.PKT PO SCH (09:09)
[2018-06-05] MEDS: LORAZEPAM 0.5 MG TAB PO SCH ×2 (09:09→17:38)
[2018-06-05] MEDS: FUROSEMIDE 20 MG TAB PO SCH ×2 (09:09→17:38)
[2018-06-05] MEDS: PREDNISONE 20 MG TAB PO SCH (09:09)
[2018-06-05] MEDS: LISINOPRIL 2.5 MG TAB PO SCH (09:10)
[2018-06-05] MEDS: METOPROLOL SUCCINATE 25 MG TAB XL PO SCH ×2 (09:10→17:00)
[2018-06-05] MEDS: RANOLAZINE 500 MG TABSR PO SCH ×2 (09:10→17:38)
--- NOTE | 2018-06-05 09:10 | NUR ---
Pt received resting in bed. Alert and oriented x4. Pt with right IJ. Oriented to staff and surroundings. Encouraged to press call madsen if help needed. All meds given as ordered. Emotional support given. Will monitor
--- NOTE | 2018-06-05 10:50 | NUR ---
Dressing change done to right IJ TLC. Will monitor
--- NOTE | 2018-06-05 13:43 | Progress Note ---
DATE: June 05, 2018 CARDIOLOGY PROGRESS NOTE SUBJECTIVE: The patient continues to complain of chest pain. He denies shortness of breath. OBJECTIVE VITALS: Temperature 95.8 degrees, pulse 72, respiratory rate 18, blood pressure 124/93, oxygen saturation 100% on 2 L nasal cannula. GENERAL: Awake, alert, in no acute distress. LUNGS: Clear to auscultation bilaterally. No wheezes or crackles. CARDIOVASCULAR: Normal rate. Regular rhythm. No murmur. Normal S1 and S2. ABDOMEN: Soft and nontender. EXTREMITIES: No edema. CARDIAC MEDICATIONS 1. Metoprolol succinate 50 mg p.o. b.i.d. 2. Ranolazine 500 mg p.o. b.i.d. 3. Lisinopril 2.5 mg p.o. daily. 4. Isosorbide mononitrate 30 mg p.o. b.i.d. 5. Furosemide 20 mg p.o. b.i.d. 6. Aspirin 81 mg p.o. daily. 7. Plavix 75 mg p.o. daily. 8. Atorvastatin 20 mg p.o. nightly. LABS: Sodium 141, potassium 4.5, chloride 102, CO2 33, BUN 12, creatinine 0.63. TELEMETRY: V-paced. IMPRESSION 1. Chest pain. 2. Anomalous left anterior descending coronary artery. 3. Coronary artery disease with prior stent without significant stenosis on most recent cardiac catheterization last year. 4. Mild systolic heart failure, ejection fraction 24% on echocardiogram in March 2018. 5. Atrial fibrillation. 6. Hypertension. 7. Hyperlipidemia. 8. Permanent pacemaker. 9. Anemia. 10. Chronic obstructive pulmonary disease. RECOMMENDATIONS: The patient ruled out for myocardial infarction with serial cardiac biomarkers. The patient had full cardiac evaluation within the last year. Continue current cardiac medications. No further cardiac evaluation is indicated at this time. The patient does have indication for anticoagulation given his atrial fibrillation. However, he is not currently on anticoagulation due to prior GI bleed. If H and H remain stable and no bleeding is noted, we will discuss reinitiation as an outpatient. Thank you for this consult. We will continue to follow. Job#: [id number]
--- NOTE | 2018-06-05 14:09 | NUR ---
Called and spoke to Zahra at [facility] [phone] and notified her that the patient states his concentrator is not working. Gave her the patient's direct number to his room [phone]. She was unable to reach him. CM gave pt Zahra's number and requested him to call her.
--- NOTE | 2018-06-05 14:24 | NUR ---
CM called and left voicemail at [facility] information/admission requesting if they provide rides for the residents to get to their physician appointments. Awaiting return call. [facility]: [phone]
--- NOTE | 2018-06-05 15:06 | Progress Note ---
DATE: June 05, 2018 PSYCHIATRIC PROGRESS NOTE Patient evaluated and events noted. Patient is in the room. He is alert, awake and oriented to situation. He reports feeling less anxious. He denies any depression. He also reports some pain around the chest, but it is generalized. He is asking for pain medications. I told him that he was not able to take it as it was too early. He appears to be somewhat fixated on pain medications. He denies any problem with sleep or appetite. He denies any hallucination, denies any suicidal ideation, denies any side effects of medication. ASSESSMENT 1. Adjustment disorder, mixed mood. 1. Generalized anxiety disorder. 2. History of depression. PLAN 1. Continue with Cymbalta 30 mg p.o. daily. 2. Continue Ativan 0.5 mg p.o. twice a day. 3. Continue with Remeron 15 mg p.o. nightly. 4. Continue with Ativan p.r.n. p.o. 5. Monitor for mood. 6. Supportive therapy. Dictated by: DEVENDRA Reynoso Job#: [id number] EV
--- NOTE | 2018-06-05 19:00 | NUR ---
patient recieved awake, alert, lying quietly in bed. vss. no c/o pain noted. /nc in use. pm assessment complete. patient instructed to call for assistance when needed.
[2018-06-05] MEDS: ATORVASTATIN 20 MG TAB PO SCH (20:41)
[2018-06-05] MEDS: MIRTAZAPINE 15 MG TAB PO SCH (20:41)
[2018-06-05] MEDS: CLOPIDOGREL BISULFATE 75 MG TAB PO SCH (20:41)
[2018-06-05] MEDS: CEFTRIAXONE SOD 1 GM/NS 50 ML 50 ML IV SCH (20:41)
[2018-06-05] MEDS ORDERED: SODIUM CHLORIDE 0.9% 250ML 250 ML ONE (20:49)
[2018-06-06] VITALS (8 sets, daily range): BP systolic 91–159; BP diastolic 72–107
[2018-06-06] MEDS: IPRATROPIUM BROMIDE 0.02% 2.5 ML NEB NEB SCH ×7 (00:15→23:15)
[2018-06-06] MEDS: ALBUTEROL SULF 0.083% NEB SOLN 3 ML NEB NEB SCH ×7 (00:15→23:20)
[2018-06-06] MEDS: MORPHINE SULFATE INJ 4 MG/ML INJ 1ML IV PRN ×4 (04:45→20:05)
--- NOTE | 2018-06-06 04:45 | NUR ---
bp 159/107 hr 68. patient medicated with morphine 2 mg ivp for generalized pain/chest pain 11/11. will continue to monitor.
--- NOTE | 2018-06-06 06:00 | NUR ---
bp 150/[address] Navi Bailon notified. no new orders noted.
[2018-06-06 07:07] LABS: BASOPHILS % 0.1 % (0.0-1.0); EOSINOPHILS % 0.1 % (0.0-6.0); HEMATOCRIT 35.3 % (38.2-49.6); HEMOGLOBIN 10.4 g/dL (14.0-18.0); LYMPHOCYTES % 10.3 % (18.0-39.1); MEAN CORPUSCULAR HEMOGLOBIN 28.1 pg (28-32); MEAN CORPUSCULAR HGB CONC 29.5 g/dL (31-35); MEAN CORPUSCULAR VOLUME 95.4 fL (81-99); MONOCYTES # (AUTO) 0.8 (0.2-0.8); MONOCYTES % 8.1 % (4.4-11.3); NEUTROPHILS # (AUTO) 7.9 (2.1-6.9); NEUTROPHILS % 80.4 % (38.7-80.0); PLATELET COUNT 281 x10e3/uL (140-360); RED CELL DISTRIBUTION WIDTH 14.7 % (11.7-14.4)
[2018-06-06 07:29] LABS: ANION GAP 12.2 mmol/L (8-16); BLOOD UREA NITROGEN 13 mg/dL (7-26); BUN/CREATININE RATIO 19 (6-25); CALCIUM 8.6 mg/dL (8.4-10.2); CARBON DIOXIDE 38 mmol/L (22-29); CHLORIDE 96 mmol/L (98-107); EST GLOMERULAR FILTRATION RATE > 60 ML/MIN (60-); GLUCOSE 88 mg/dL (74-118); POTASSIUM 4.2 mmol/L (3.5-5.1); SODIUM 142 mmol/L (136-145)
[2018-06-06] MEDS: BUDESONIDE/FORMOTEROL 160/4.5MCG INHALER INH SCH ×2 (07:41→19:00)
--- NOTE | 2018-06-06 08:50 | NUR ---
Pt received resting in bed. All meds given as ordered. Call madsen within reach. Pt encouraged to take a bath today but is refusing stating he would take a bath when he gets back home. Emotional support given. call madsen within reach. Will monitor
[2018-06-06] MEDS: LISINOPRIL 2.5 MG TAB PO SCH (08:53)
[2018-06-06] MEDS: LORAZEPAM 0.5 MG TAB PO SCH ×2 (08:53→17:02)
[2018-06-06] MEDS: FUROSEMIDE 20 MG TAB PO SCH ×2 (08:53→16:54)
[2018-06-06] MEDS: ASPIRIN 81 MG CHEW TAB PO SCH (08:53)
[2018-06-06] MEDS: PANTOPRAZOLE SOD 40 MG TABEC PO SCH (08:53)
[2018-06-06] MEDS: ISOSORBIDE MONONITRATE 30 MG TAB CR PO SCH ×2 (08:53→16:53)
[2018-06-06] MEDS: RANOLAZINE 500 MG TABSR PO SCH ×2 (08:53→17:02)
[2018-06-06] MEDS: DULOXETINE HCL 30 MG DELAYED RELEASE PO SCH (08:53)
[2018-06-06] MEDS: PREDNISONE 20 MG TAB PO SCH (08:53)
[2018-06-06] MEDS: METOPROLOL SUCCINATE 25 MG TAB XL PO SCH ×2 (08:53→16:53)
--- NOTE | 2018-06-06 18:55 | NUR ---
patient recieved awake, alert, lying quietly in bed. vss. no c/o pain noted. pm assessment complete. patient instructed to call for assistance when needed.
[2018-06-06] MEDS: MIRTAZAPINE 15 MG TAB PO SCH (20:05)
[2018-06-06] MEDS: CEFTRIAXONE SOD 1 GM/NS 50 ML 50 ML IV SCH (20:05)
[2018-06-06] MEDS: CLOPIDOGREL BISULFATE 75 MG TAB PO SCH (20:05)
[2018-06-06] MEDS: ATORVASTATIN 20 MG TAB PO SCH (20:05)
--- NOTE | 2018-06-06 20:05 | NUR ---
patient medicated with morphine 2 mg ivp for c/o chest pain 11/11. will continue to monitor.
[2018-06-07] VITALS (8 sets, daily range): BP systolic 88–127; BP diastolic 68–98
[2018-06-07] MEDS: ALBUTEROL SULF 0.083% NEB SOLN 3 ML NEB NEB SCH ×6 (03:00→23:20)
[2018-06-07] MEDS: IPRATROPIUM BROMIDE 0.02% 2.5 ML NEB NEB SCH ×6 (03:00→23:20)
[2018-06-07] MEDS: MORPHINE SULFATE INJ 4 MG/ML INJ 1ML IV PRN ×3 (05:30→14:55)
--- NOTE | 2018-06-07 05:30 | NUR ---
patient medicated with morphine 2 mg ivp for c/o chest pain 11/11. will continue to monitor.
[2018-06-07] MEDS: BUDESONIDE/FORMOTEROL 160/4.5MCG INHALER INH SCH ×2 (07:07→19:25)
[2018-06-07] MEDS: LORAZEPAM 0.5 MG TAB PO SCH ×2 (08:37→17:21)
[2018-06-07] MEDS: PANTOPRAZOLE SOD 40 MG TABEC PO SCH (08:37)
[2018-06-07] MEDS: DULOXETINE HCL 30 MG DELAYED RELEASE PO SCH (08:37)
[2018-06-07] MEDS: PREDNISONE 20 MG TAB PO SCH (08:37)
[2018-06-07] MEDS: FUROSEMIDE 20 MG TAB PO SCH ×2 (08:37→15:45)
[2018-06-07] MEDS: LISINOPRIL 2.5 MG TAB PO SCH (08:37)
[2018-06-07] MEDS: ASPIRIN 81 MG CHEW TAB PO SCH (08:37)
[2018-06-07] MEDS: ISOSORBIDE MONONITRATE 30 MG TAB CR PO SCH ×2 (08:37→15:44)
--- NOTE | 2018-06-07 08:37 | NUR ---
Pt received resting in bed. O2 @L NC in place. All meds given as ordered. Call madsen within reach. Emotional support given. call madsen within reach. Will monitor
[2018-06-07] MEDS: RANOLAZINE 500 MG TABSR PO SCH ×2 (08:38→15:44)
[2018-06-07] MEDS: METOPROLOL SUCCINATE 25 MG TAB XL PO SCH ×2 (11:56→15:45)
--- NOTE | 2018-06-07 19:00 | NUR ---
patient recieved awake, alert, lying quietly in bed. vss. no c/o pain noted. pm assessment complete. patient instructed to call for assistance when needed.
[2018-06-07] MEDS: CEFTRIAXONE SOD 1 GM/NS 50 ML 50 ML IV SCH (20:18)
[2018-06-07] MEDS ORDERED: SODIUM CHLORIDE 0.9% 250ML 250 ML ONE (20:19)
[2018-06-07] MEDS: CLOPIDOGREL BISULFATE 75 MG TAB PO SCH (20:19)
[2018-06-07] MEDS: MIRTAZAPINE 15 MG TAB PO SCH (20:19)
[2018-06-07] MEDS: ATORVASTATIN 20 MG TAB PO SCH (20:19)
[2018-06-08] VITALS (8 sets, daily range): BP systolic 92–128; BP diastolic 56–90
[2018-06-08] MEDS: ALBUTEROL SULF 0.083% NEB SOLN 3 ML NEB NEB SCH ×6 (03:05→23:30)
[2018-06-08] MEDS: IPRATROPIUM BROMIDE 0.02% 2.5 ML NEB NEB SCH ×6 (03:05→23:30)
[2018-06-08] MEDS: MORPHINE SULFATE INJ 4 MG/ML INJ 1ML IV PRN ×3 (03:30→18:55)
--- NOTE | 2018-06-08 06:00 | NUR ---
patient sitting up in bed drinking coffee. no further c/o pain noted at this time.
[2018-06-08] MEDS: BUDESONIDE/FORMOTEROL 160/4.5MCG INHALER INH SCH ×2 (07:00→19:45)
--- NOTE | 2018-06-08 07:14 | NUR ---
PATIENT SITTING UP IN BED WATCHING TV, NO RESPIRATORY DISTRESS OBSERVED. O2 IN PLACE VIA N/C. DENIED PAIN, BED IN LOWER POSITION, CALL LIGHT AT REACH.
[2018-06-08] MEDS: PANTOPRAZOLE SOD 40 MG TABEC PO SCH (07:56)
[2018-06-08] MEDS: ASPIRIN 81 MG CHEW TAB PO SCH (09:27)
[2018-06-08] MEDS: LISINOPRIL 2.5 MG TAB PO SCH (09:27)
[2018-06-08] MEDS: ISOSORBIDE MONONITRATE 30 MG TAB CR PO SCH ×2 (09:27→17:45)
[2018-06-08] MEDS: FUROSEMIDE 20 MG TAB PO SCH ×2 (09:27→17:45)
[2018-06-08] MEDS: RANOLAZINE 500 MG TABSR PO SCH ×2 (09:27→17:45)
[2018-06-08] MEDS: PREDNISONE 20 MG TAB PO SCH (09:27)
[2018-06-08] MEDS: LORAZEPAM 0.5 MG TAB PO SCH ×2 (09:27→17:45)
[2018-06-08] MEDS: DULOXETINE HCL 30 MG DELAYED RELEASE PO SCH (09:27)
[2018-06-08] MEDS: METOPROLOL SUCCINATE 25 MG TAB XL PO SCH ×2 (09:28→17:46)
--- NOTE | 2018-06-08 15:00 | NUR ---
PATIENT REQUESTED AND RECEIVED A CUP OF JUICE AND CRACKERS. URINAL EMPTIED. IN BED WITH CALL LIGHT AT REACH.
--- NOTE | 2018-06-08 15:37 | Progress Note ---
DATE: CARDIOLOGY PROGRESS NOTE SUBJECTIVE: Patient was found sleeping comfortably in no apparent distress. Upon awakening, patient reported chest pain. Denies any shortness of breath. OBJECTIVE VITAL SIGNS: Temperature is 97.9. Heart rate is 70. Respirations are 18. Blood pressure is 110/71. Oxygen saturation 96% on 2 liters nasal cannula. GENERAL: A chronically ill-appearing man lying comfortably in bed in no apparent distress. CARDIOVASCULAR: Regular rate and rhythm. LUNGS: No apparent distress. Equal breath sounds, scattered wheezes. ABDOMEN: Soft, nontender. LABORATORY DATA: Hemoglobin 10.4. Creatinine 0.7. Troponin is negative x3. TELEMETRY MONITORING: Ventricular paced rhythm. IMPRESSION 1. Atypical chest pain. 2. Anomalous left anterior descending coronary artery. 3. Nonobstructive coronary artery disease. 4. Systolic congestive heart failure. 5. Atrial fibrillation. 6. Presence of a permanent pacemaker. RECOMMENDATIONS: Patient ruled out for acute myocardial infarction. Patient had significant and full cardiac evaluation last year. Patient has anomalous coronary artery. However, stress testing revealed no ischemia. We will continue to monitor clinically. Patient was not on anticoagulation as he has a history of gastrointestinal bleed. H and H remain stable. Will rediscuss anticoagulation as an outpatient. Job#: [id number]
--- NOTE | 2018-06-08 17:26 | NUR ---
CALL PLACE TO [facility] @ [phone]. SPOKE David KYLE REGARDING PT'S CONCENTRATOR NEEDING POSS REPAIRS. STATES ANTHONY TRIED [facility] THE PT, BUT WAS UNSUCCESSFUL STATES THE PT NEED TO SPEAK TO THEIR BUSINESS OFFICE @ [phone] TO DISCUSS HIS BILL. WILL F/U AFTER PT SPEAKS David [facility]. Addendum: 06/08/18 at 1729 by Airam Alonso CM NURSE [facility] DOC PLANS TO DC PT HOME TOMORROW.
--- NOTE | 2018-06-08 19:16 | NUR ---
PT IS RESTING IN BED. NO RESPIRATORY DISTRESS NOTED. BED IN THE LOWEST POSITION, LOCKED, AND CALL LIGHT WITHIN REACH. WILL CONTINUE TO MONITOR.
--- NOTE | 2018-06-08 19:25 | Progress Note ---
DATE: June 08, 2018 PSYCHIATRIC PROGRESS NOTE SUBJECTIVE: Patient evaluated and events noted. Patient is in the room. He is calm and cooperative. He denies any depression, denies any anxiety. He states that he is doing fairly well. He denies any hallucination. He denies any suicidal ideation. He claims he is sleeping well. He denies any side effects on medication. ASSESSMENT: 1. Adjustment disorder with mixed mood. 2. Generalized anxiety disorder. 3. History of depression. PLAN: 1. To continue with Ativan p.r.n. 2. Continue with Cymbalta 30 mg p.o. every day. 3. Continue with Remeron. 4. Monitor for mood. 5. Supportive therapy. Dictated by DEVENDRA Reynoso Job#: [id number]
[2018-06-08] MEDS: ACETAMINOPHEN/CODEINE 300MG - 30MG TAB PO PRN (21:10)
[2018-06-08] MEDS: CLOPIDOGREL BISULFATE 75 MG TAB PO SCH (21:10)
[2018-06-08] MEDS: CEFTRIAXONE SOD 1 GM/NS 50 ML 50 ML IV SCH (21:10)
[2018-06-08] MEDS: MIRTAZAPINE 15 MG TAB PO SCH (21:10)
[2018-06-08] MEDS: ATORVASTATIN 20 MG TAB PO SCH (21:10)
[2018-06-09] VITALS (8 sets, daily range): BP systolic 94–126; BP diastolic 61–88
[2018-06-09] MEDS: IPRATROPIUM BROMIDE 0.02% 2.5 ML NEB NEB SCH ×6 (03:40→23:50)
[2018-06-09] MEDS: ALBUTEROL SULF 0.083% NEB SOLN 3 ML NEB NEB SCH ×6 (03:40→23:50)
[2018-06-09 06:59] LABS: BASOPHILS % 0.1 % (0.0-1.0); EOSINOPHILS # (AUTO) 0.1 (0.0-0.4); EOSINOPHILS % 0.7 % (0.0-6.0); HEMATOCRIT 35.4 % (38.2-49.6); HEMOGLOBIN 10.3 g/dL (14.0-18.0); LYMPHOCYTES # (AUTO) 0.9 (1.0-3.2); MEAN CORPUSCULAR HEMOGLOBIN 28.2 pg (28-32); MEAN CORPUSCULAR HGB CONC 29.1 g/dL (31-35); MONOCYTES # (AUTO) 0.7 (0.2-0.8); MONOCYTES % 6.5 % (4.4-11.3); NEUTROPHILS # (AUTO) 8.4 (2.1-6.9); NEUTROPHILS % 82.6 % (38.7-80.0); PLATELET COUNT 266 x10e3/uL (140-360); RED BLOOD COUNT 3.65 x10e6/uL (4.3-5.7); RED CELL DISTRIBUTION WIDTH 14.2 % (11.7-14.4)
[2018-06-09] MEDS: BUDESONIDE/FORMOTEROL 160/4.5MCG INHALER INH SCH ×2 (07:00→23:50)
[2018-06-09 07:16] LABS: ANION GAP 10.2 mmol/L (8-16); BLOOD UREA NITROGEN 11 mg/dL (7-26); BUN/CREATININE RATIO 17 (6-25); CALCIUM 8.4 mg/dL (8.4-10.2); CARBON DIOXIDE 40 mmol/L (22-29); CHLORIDE 97 mmol/L (98-107); CREATININE, SERUM 0.63 mg/dL (0.72-1.25); EST GLOMERULAR FILTRATION RATE > 60 ML/MIN (60-); GLUCOSE 84 mg/dL (74-118); POTASSIUM 4.2 mmol/L (3.5-5.1); SODIUM 143 mmol/L (136-145)
--- NOTE | 2018-06-09 07:35 | NUR ---
PATIENT IN BED RESTING WITH HEAD OF BED ELEVATED, NO RESPIRATORY DISTRESS OBSERVED. O2 IN PLACE VIA N/C. REQUESTED AND RECEIVED A CU OF COFFEE. BED IN LOWER POSITION, CALL LIGHT AT REACH.
[2018-06-09] MEDS: MORPHINE SULFATE INJ 4 MG/ML INJ 1ML IV PRN ×2 (07:40→13:52)
[2018-06-09] MEDS: PANTOPRAZOLE SOD 40 MG TABEC PO SCH (07:51)
[2018-06-09] MEDS: DULOXETINE HCL 30 MG DELAYED RELEASE PO SCH (09:14)
[2018-06-09] MEDS: LORAZEPAM 0.5 MG TAB PO SCH ×2 (09:14→17:14)
[2018-06-09] MEDS: FUROSEMIDE 20 MG TAB PO SCH ×2 (09:14→17:14)
[2018-06-09] MEDS: PREDNISONE 20 MG TAB PO SCH (09:14)
[2018-06-09] MEDS: RANOLAZINE 500 MG TABSR PO SCH ×2 (09:14→17:16)
[2018-06-09] MEDS: ISOSORBIDE MONONITRATE 30 MG TAB CR PO SCH ×2 (09:14→17:00)
[2018-06-09] MEDS: LISINOPRIL 2.5 MG TAB PO SCH (09:14)
[2018-06-09] MEDS: ASPIRIN 81 MG CHEW TAB PO SCH (09:14)
[2018-06-09] MEDS: METOPROLOL SUCCINATE 25 MG TAB XL PO SCH ×2 (09:15→17:00)
--- NOTE | 2018-06-09 11:15 | NUR ---
PATIENT SITTING UP IN BED RECEIVING NEB TREATMENT. NO COMPLAIN VOICED. BED IN LOWER POSITION, CALL LIGHT AT REACH.
--- NOTE | 2018-06-09 14:50 | NUR ---
PATIENT OUT OF BED TO CHAIR WATCHING TV. CALL LIGHT AT REACH.
--- NOTE | 2018-06-09 15:54 | NUR ---
CALL MADE TO [facility] @ [phone]. SPOKE David ALVARADO. INFORMED CHRISTIANO THE PT IS RETURNING HOME TODAY AND WILL NEED HIS CONCENTRATOR LOOKED AT. STATES SHE WILL CALL IN TO HAVE THE TECH GO OVER THIS EVENING. SPOKE David ESPINOSA RN. STATES SHE WAS AWAITING PSYCH TO WRITE DC SCRIPTS FOR THE PT. CALL WAS MADE TO [facility]. SPOKE MGR BROOKE. STATES THEY CAN P/U THE PT, BUT THE OFFICE TECHNOLOGIST LEAVES AT 4PM. [phone] Addendum: 06/09/18 at 1623 by Airam Alonso CM ADDENDUM: TORIN STATES THEY HAVE ASSESSED THE PT'S CONCENTRATOR AND IT WORKS FINE. STATES HE DOES NOT LIKE TO GO OUT W HIS TANKS WHEN HE LEAVES THE FACILITY. STATES HE SMOKES OFTEN AND WILL NOT COMPLY WITH THEIR REQUESTS. INFORMED HER I WILL PASS THE INFO ON.
--- NOTE | 2018-06-09 16:12 | NUR ---
INFORMED FRANCISCA THE PT CANNOT BE P/U TODAY, BECAUSE THE ARB[employer]IC[employer]URE INSTRUCTOR HAS GONE HOME FOR THE DAY. RACHEL ESPINOSA MADE CALL TO DR. GODWIN. SPOKE W DR. CURRAN TO INFORM OF [facility] WILL GO OUT TO CHECK PT'S CONCENTRATOR TODAY. ALSO TRANSPORTATION CAN BE PROVIDED TOMORROW BEFORE 4PM. DR. CURRAN REQUESTED TRANSPORTATION BE ARRANGED FOR 2PM TOMORROW. CALL WAS MADE TO [facility]. SPOKE W ALETHA MED TECH. STATES HE WILL PUT THE PT ON THE SCHEDULE FOR 2PM TOMORROW FOR P/U FROM [facility]. STATES HE WILL TAKE THE [employer] TECH TO CHECK THE PT'S CONCENTRATOR TONIGHT; MR. LOWERY DID NEED TO BE PRESENT. STATES HE WILL NOTIFY TORIN OF THIS INFO.
--- NOTE | 2018-06-09 17:00 | NUR ---
MANAGER SUPPORT SERVICES SPOKE WITH [facility] STAFF REGARDING PATIENT'S O2 CONCENTRATOR, HE STATED IT WILL BE CHECKED TONIGHT. PATIENT WILL BE DISCHARGE TOMORROW AROUND [address] ROWLAND NOTIFIED, HE STATED THAT HE WILL BE IN BEFORE DISCHARGE TO WRITE THE PRESCRIPTION.
--- NOTE | 2018-06-09 17:45 | NUR ---
Nutrition Screen Note RD Recommendation for Physician: - Continue Cardiac diet Plan of Care: RD following, monitoring for tolerance and adequacy Nutrition reason for involvement: LOS Primary Diagnose(s): COPD, PNA PMH: COPD, CAD, [place], esophageal varices Ht: 72 in Wt: 225 lb BMI: 30.5 kg/m2 IBW: [address] Assessment: (06/09) 62 YOM admitted for COPD and PNA. Pt discussed during am rounds, Psych consult pending prior to discharge. Pt seen today for LOS. 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 Pt denies any GI distress or wt loss, can not recall UBW. Skin intact. LBM 2/3. Chart reviewed. Labs and meds noted. Pt with no questions or concerns at time of visit. Will monitor and continue to follow. Current Diet: Cardiac Malnutrition Evaluation (06/09/18) The patient does not meet criteria for a specified degree of malnutrition at this time. Will re-evaluate at follow-up as appropriate. Diet Education Needs Assessment: Diet education not indicated. Nutrition Care Level: Low Signed: Jami Luevano RD, LD, [facility]
--- NOTE | 2018-06-09 19:08 | NUR ---
PT IS RESTING IN BED. NO RESPIRATORY DISTRESS NOTED. BED IN THE LOWEST POSITION, LOCKED, AND CALL LIGHT WITHIN REACH. WILL CONTINUE TO MONITOR.
[2018-06-09] MEDS: ATORVASTATIN 20 MG TAB PO SCH (21:35)
[2018-06-09] MEDS: CEFTRIAXONE SOD 1 GM/NS 50 ML 50 ML IV SCH (21:35)
[2018-06-09] MEDS: MIRTAZAPINE 15 MG TAB PO SCH (21:35)
[2018-06-09] MEDS: CLOPIDOGREL BISULFATE 75 MG TAB PO SCH (21:35)
[2018-06-10] VITALS: BP 94/66
[2018-06-10] MEDS: MORPHINE SULFATE INJ 4 MG/ML INJ 1ML IV PRN ×2 (03:27→08:25)
[2018-06-10 04:00] VITALS: BP 109/80
[2018-06-10] MEDS: IPRATROPIUM BROMIDE 0.02% 2.5 ML NEB NEB SCH ×3 (04:05→11:20)
[2018-06-10] MEDS: ALBUTEROL SULF 0.083% NEB SOLN 3 ML NEB NEB SCH ×3 (04:05→11:20)
[2018-06-10] MEDS: BUDESONIDE/FORMOTEROL 160/4.5MCG INHALER INH SCH (07:25)
[2018-06-10 08:15] VITALS: BP 123/75
[2018-06-10 08:25] VITALS: BP 123/75
[2018-06-10] MEDS: PANTOPRAZOLE SOD 40 MG TABEC PO SCH (08:25)
--- NOTE | 2018-06-10 08:25 | NUR ---
Pt received resting in bed. All meds given as ordered. Call madsen within reach. Pt oriented to staff and surroundings. Encouraged to press call madsen if help needed. Emotional support given. Will monitor
[2018-06-10] MEDS: ISOSORBIDE MONONITRATE 30 MG TAB CR PO SCH (08:26)
[2018-06-10] MEDS: PREDNISONE 20 MG TAB PO SCH (08:26)
[2018-06-10] MEDS: RANOLAZINE 500 MG TABSR PO SCH (08:26)
[2018-06-10] MEDS: FUROSEMIDE 20 MG TAB PO SCH (08:26)
[2018-06-10] MEDS: LORAZEPAM 0.5 MG TAB PO SCH (08:26)
[2018-06-10] MEDS: DULOXETINE HCL 30 MG DELAYED RELEASE PO SCH (08:26)
[2018-06-10] MEDS: ASPIRIN 81 MG CHEW TAB PO SCH (08:26)
[2018-06-10 12:19] VITALS: BP 129/59
[2018-06-10] MEDS: LISINOPRIL 2.5 MG TAB PO SCH (12:21)
[2018-06-10] MEDS: METOPROLOL SUCCINATE 25 MG TAB XL PO SCH (12:21)
--- NOTE | 2018-06-10 13:29 | Progress Note ---
DATE: June 10, 2018 PSYCHIATRIC PROGRESS NOTE Patient evaluated and events noted. Patient is in the room. He is alert, awake and oriented to situation. He is calm, cooperative. He denies depression. He denies anxiety. He denies any hallucination. He denies any suicidal ideation. He reports sleeping and eating well. He denies any side effects from the medications. Patient is distress today. Nursing staff requests oral script. ASSESSMENT 1. Adjustment disorder, mixed mood. 2. Generalized anxiety disorder. 3. History of depression. PLAN 1. Continue Ativan p.r.n. p.o. 2. Continue with Cymbalta 30 mg p.o. daily. 3. Continue Ativan 0.5 mg p.o. b.i.d. 4. Continue Remeron 15 mg p.o. nightly. 5. Scripts written for Cymbalta, Ativan and Remeron for 20 days with the exception of Ativan which is written for a 10-day supply. No p.r.n. Ativan given. 6. Supportive therapy. 7. Monitor for mood. Dictated by: DEVENDRA Reynoso Job#: [id number] EV
[2018-06-10] MEDS ORDERED: CYMBALTA30 MG PO (14:58)
[2018-06-10] MEDS ORDERED: REMERON15 MG PO (14:59)
[2018-06-10] MEDS ORDERED: ATIVAN0.5 MG PO (14:59)
[2018-06-10] MEDS ORDERED: PREDNISONE20 MG PO (15:00)
--- NOTE | 2018-06-10 15:14 | Discharge Summary ---
FINAL DIAGNOSES 1. Chronic obstructive pulmonary disease exacerbation. 2. Anxiety. 3. Coronary artery disease. 4. Hypertension. 5. Smoker. ADMISSION HISTORY AND HOSPITAL COURSE: Mr. Castañeda is a 62-year-old male who presented to the emergency room with chest pain and shortness of breath. Patient was admitted to the hospital. IV steroids were started. Patient started feeling better. Cardiology was consulted. They cleared the patient for discharge. Psychiatry was consulted. Patient was started on multiple antianxiety medications. The patient was feeling better. He will be discharged back to [facility]. His oxygen concentrator was not working. I had a detailed discussion with Case Management, and the [employer] is already going there to take care of the concentrator. Discharge medication list reviewed. JAZMIN CURRAN MD Job#: [id number] EV
--- NOTE | 2018-06-10 15:35 | NUR ---
Pt given discharge instructions regarding meds, diet, activities, and follow up appointment with PCP. Pt verbalized understanding of teaching. [facility] called to pick pt up. Pt leaving via wheelchair to van
== END 2018-06-10 15:41 | DRG 191 ==
LOC: ER 16:51 → ERHOLD 20:59 → MED/SURG3 22:38
PROVIDERS: ADMIT Internal Medicine; ATTEND Internal Medicine
PROC: 02HV33Z Insertion of Infusion Device into Superior Vena Cava, Percutaneous Approach (ICD-10-PCS; principal; 2018-06-03)
PROC: B548ZZA Ultrasonography of Superior Vena Cava, Guidance (ICD-10-PCS; 2018-06-03)
DX: J44.0 Chronic obstructive pulmonary disease with (acute) lower respiratory infection (principal); I50.22 Chronic systolic (congestive) heart failure; J20.9 Acute bronchitis, unspecified; J44.1 Chronic obstructive pulmonary disease with (acute) exacerbation; R94.31 Abnormal electrocardiogram [ECG] [EKG]; Z82.49 Family history of ischemic heart disease and other diseases of the circulatory system; Z83.6 Family history of other diseases of the respiratory system; I25.10 Atherosclerotic heart disease of native coronary artery without angina pectoris; E78.5 Hyperlipidemia, unspecified; I48.2 Chronic atrial fibrillation; I11.0 Hypertensive heart disease with heart failure; I25.2 Old myocardial infarction; Z95.5 Presence of coronary angioplasty implant and graft; Z86.718 Personal history of other venous thrombosis and embolism; Z95.0 Presence of cardiac pacemaker; F43.23 Adjustment disorder with mixed anxiety and depressed mood; F17.210 Nicotine dependence, cigarettes, uncomplicated
CPT/HCPCS: 36415; 71045; 71260; 80048; 80053; 82550; 82553; 83880; 84484; 85025; 85610; 85730; 93005; 94640; 94664; 99284; J0456; J0696; J1885; J2270; J2920; J2930; J7030; J7050; J7512; Q9967

== ENCOUNTER 2018-09-11 14:18 | Inpatient (IN) | payer OTHER ==
[~2018-09-11] VITALS: Ht 182.9 cm; Wt 95.5 kg
[~2018-09-11 14:18] MED LIST changes: +ATIVAN0.5 MG PO; +CYMBALTA30 MG PO; +REMERON15 MG PO
--- OUTSIDE RECORDS SUMMARY | 2018-09-11 14:22 | XMS REPORT | Continuity of Care Document ---
Author Author [facility] Interface Address Unknown Phone Unavailable Problems Problem Status Onset Date Classification Date Reported Comments Source SOB / CHEST PAIN Active 2015 [facility] BRONCHITIS, CHEST PAIN Active 2015 [facility] CHEST PAIN, BRADYCARDIA, SUICIDAL IDEATI Active 08/18/2015 [facility] WEAK Active 08/18/2015 [facility] DEBILITY Active 08/07/2015 [facility] DEBILITATED Active 08/07/2015 [facility] LEFT CORONARY ANOMALY Active 07/20/2015 [facility] Anxiety Active Problem 12/05/2015 [facility] COPD Active Problem 12/05/2015 [facility] Depressed Active Problem 12/05/2015 [facility] Hypertension Active Problem 12/05/2015 [facility] Major depressive disorder Active Problem 12/05/2015 [facility] Pacemaker Active Problem 12/05/2015 [facility] Psychomotor retardation Active Problem 12/05/2015 [facility] Pulmonary embolism Resolved Problem 12/05/2015 [facility] Tobacco abuse Active Problem 12/05/2015 [facility] Unstable angina Active Problem 12/05/2015 [facility] OTHER SPECIFIED CONGENITAL DEFORMITIES Active [facility] OTHER MALAISE Active [facility] BRONCHITIS, NOT SPECIFIED ACUTE OR CH Active [facility] Medications Medication Details Route Status Patient Instructions Ordering Provider Order Date Source rivaroxaban 20 mg oral tablet 20 mg=1 tab, PO, QPM, 0 Refill(s) Active 12/02/2015 [facility] lamoTRIgine 25 mg oral tablet 25 mg=1 tab, PO, BID, 0 Refill(s) Active 12/02/2015 [facility] QUEtiapine 25 mg oral tablet 25 mg=1 tab, PO, Q4H, PRN Anxiety, 0 Refill(s) Active 12/02/2015 [facility] Seroquel 25 mg, 1 tab, Route: PO, Drug form: TAB, TID, Dosing Weight 105.455, kg, Start date: 12/02/15 13:00:00 CDT, Duration: 30 day, Stop date: 01/01/16 9:00:00 CDTNotes: (Same as: SEROquel) Inactive 12/02/2015 [facility] Seroquel 25 mg, 1 tab, Route: PO, Drug form: TAB, Q4H, Dosing Weight 105.455, kg, PRN Anxiety, Start date: 12/02/15 12:54:00 CDT, Duration: 30 day, Stop date: 01/01/16 12:53:00 CDTNotes: (Same as: SEROquel) Inactive 12/02/2015 [facility] lamoTRIgine 25 mg oral tablet 25 mg, 1 tab, Route: PO, Drug form: TAB, BID, Dosing Weight 105.455, kg, Priority: NOW, Start date: 12/02/15 11:31:00 CDT, Duration: 30 day, Stop date: 01/01/16 9:00:00 CDTNotes: (Same as:LaMICtal) Inactive 12/02/2015 [facility] Mirtazapine 30 mg, 2 tab, Route: PO, Drug form: TAB, Bedtime, Dosing Weight 105.455, kg, Start date: 11/29/15 21:00:00 CDT, Duration: 30 day, Stop date: 12/28/15 21:00:00 CDTNotes: (Same as:Remeron) No Longer Active 11/30/2015 [facility] Seroquel 50 mg, 2 tab, Route: PO, Drug form: TAB, Bedtime, Dosing Weight 105.455, kg, Start date: 11/29/15 21:00:00 CDT, Stop date: 12/28/15 21:00:00 CDTNotes: (Same as: SEROquel) No Longer Active 11/30/2015 [facility] Xarelto 20 mg, 1 tab, Route: PO, Drug form: TAB, QPM, Dosing Weight 105.455, kg, Start date: 11/29/15 20:00:00 CDT, Duration: 30 day, Stop date: 12/28/15 20:00:00 CDTNotes: (Same as: Xarelto) Administer with food No Longer Active 11/30/2015 [facility] Seroquel 25 mg, 1 tab, Route: PO, Drug form: TAB, Q6H, Dosing Weight 105.455, kg, PRN Agitation, Start date: 11/29/15 19:38:00 CDT, Duration: 30 day, Stop date: 12/29/15 19:37:00 CDTNotes: (Same as: SEROquel) No Longer Active 11/30/2015 [facility] Acetaminophen 300 MG / Codeine Phosphate 30 MG Oral Tablet [Tylenol with Codeine #3] 1 tab, Route: PO, Drug Form: TAB, Dosing Weight 105.455, kg, Q6H, PRN Pain Score 6-10, Start date: 11/29/15 18:44:00 CDT, Duration: 30 day, Stop date: 12/29/15 18:43:00 CDTNotes: Do not exceed 4gm/day of acetaminophen. (Same as: Tylenol with Codeine # 3) No Longer Active 11/29/2015 [facility] POLYETHYLENE GLYCOL 3350 17 gm, 1 pkt, Route: PO, Drug form: PWDR, BID, Dosing Weight 105.455, kg, Start date: 11/29/15 9:00:00 CDT, Duration: 30 day, Stop date: 12/28/15 17:00:00 CDTNotes: Dissolve in 8 oz of water or juice. (Same as: Miralax) No Longer Active 11/29/2015 [facility] Folic Acid 1 mg, 1 tab, Route: PO, Drug form: TAB, Daily, Dosing Weight 105.455, kg, Start date: 11/29/15 9:00:00 CDT, Duration: 30 day, Stop date: 12/28/15 9:00:00 CDTNotes: (Same as: Folvite) No Longer Active 11/29/2015 [facility] Flonase 0.05 mg/inh nasal spray 2 spray, Route: Each Affected Nostril, Drug Form: SPRY, Dosing Weight 105.455, kg, Daily, Start date: 11/29/15 9:00:00 CDT, Duration: 30 day, Stop date: 12/28/15 9:00:00 CDTNotes: (Same as: Flonase) No Longer Active 11/29/2015 [facility] carvedilol 3.125 mg, 1 tab, Route: PO, Drug form: TAB, Q12H, Dosing Weight 105.455, kg, Start date: 11/29/15 9:00:00 CDT, Duration: 30 day, Stop date: 12/28/15 21:00:00 CDTNotes: Give with food. (Same As: Coreg) No Longer Active 11/29/2015 [facility] Budesonide 1 inhalation, Route: INHALATION, Drug form: PWDR, BID, Dosing Weight 105.455, kg, Start date: 11/29/15 9:00:00 CDT, Duration: 30 day, Stop date: 12/28/15 17:00:00 CDTNotes: Same as Pulmicort Flexhaler Non-Formulary Drug No Longer Active 11/29/2015 [facility] Aspirin 81 mg, 1 tab, Route: PO, Drug form: ECTAB, Daily, Dosing Weight 105.455, kg, Start date: 11/29/15 9:00:00 CDT, Duration: 30 day, Stop date: 12/28/15 9:00:00 CDTNotes: Do not crush or chew. (Same As: Ecotrin) No Longer Active 11/29/2015 [facility] Thiamine 100 mg, 1 tab, Route: PO, Drug form: TAB, Daily, Dosing Weight 105.455, kg, Start date: 11/29/15 9:00:00 CDT, Duration: 30 day, Stop date: 12/28/15 9:00:00 CDTNotes: (Same As: Vitamin B1) No Longer Active 11/29/2015 [facility] Nitroglycerin 0.4 MG Sublingual Tablet 0.4 mg, 1 tab, Route: SL, Drug form: TAB, Q5Min, Dosing Weight 105.455, kg, PRN Chest Pain, Start date: 11/28/15 21:08:00 CDT, Duration: 30 day, Stop date: 12/28/15 21:07:00 CDT Inactive 11/29/2015 [facility] Calcium Carbonate 500 MG Chewable Tablet 500 mg, 1 tab, Route: CHEW, Drug form: CHEWTAB, TID, Dosing Weight 105.455, kg, PRN Indigestion, Start date: 11/28/15 21:07:00 CDT, Duration: 30 day, Stop date: 12/28/15 21:06:00 CDTNotes: (Same As: César) Calcium Carbonate 500 yx=407 mg elemental calcium Dose= mg calcium carbonate ( mg elemental calcium) No Longer Active 11/29/2015 [facility] 200 ACTUAT Albuterol 0.09 MG/ACTUAT Metered Dose Inhaler 2 puff, Route: INHALATION, Drug Form: AERO/A, Dosing Weight 105.455, kg, QID, PRN Wheezing, Start date: 11/28/15 21:07:00 CDT, Duration: 30 day, Stop date: 12/28/15 21:06:00 CDTNotes: Albuterol 90 microgram/inh 8gm HFA WASTE: Aerosol - Return to Pharmacy Same as: Kenneth Oakes No Longer Active 11/29/2015 [facility] Saline Flush 0.9% 10 ml, Route: IVP, Drug Form: INJ, Dosing Weight 113.636, kg, Q12H, Start date: 11/28/15 21:00:00 CDT, Duration: 30 day, Stop date: 12/28/15 9:00:00 CDTNotes: (Same as: BD Posiflush) No Longer Active 11/29/2015 [facility] Albuterol 0.83 MG/ML Inhalant Solution 2.5 mg, 3.01 mL, Route: INHALATION, Drug form: SOLN, RQ6H, Dosing Weight 113.636, kg, Start date: 11/28/15 20:00:00 CDT, Duration: 30 day, Stop date: 12/28/15 14:00:00 CDTNotes: SEE RT DOCUMENTATION (Same as: Proventil) No Longer Active 11/29/2015 [facility] Lovenox 105.455 mg, 0.7 mL, Route: SUB-Q, Drug form: INJ, [id number], Dosing Weight 105.455, kg, Start date: 11/28/15 17:00:00 CDT, Duration: 30 day, Stop date: 12/28/15 9:00:00 CDTNotes: Nurse to ensure document ation of patient education per anticoagulation policy. (Same as: Lovenox) No Longer Active 2015 [facility] Alprazolam 1 MG Oral Tablet [Xanax] 1 mg, 1 tab, Route: PO, Drug form: TAB, ONCE, Dosing Weight 105.455, kg, PRN Anxiety, Start date: 11/28/15 16:13:00 CDT, Stop date: 12/28/15 16:12:00 CDTNotes: With food or milk (Same as: Xanax) Inactive 2015 [facility] Saline Flush 0.9% 10 ml, Route: IVP, Drug Form: INJ, Dosing Weight 113.636, kg, PRN, PRN Line Flush, Start date: 11/28/15 15:24:00 CDT, Duration: 30 day, Stop date: 12/28/15 15:23:00 CDTNotes: (Same as: BD Posiflush) No Longer Active 2015 [facility] Nitroglycerin 0.4 mg, 1 tab, Route: SL, Drug form: TAB, Q5Min, Dosing Weight 113.636, kg, PRN Chest Pain, Start date: 11/28/15 15:24:00 CDT, Duration: 3 doses or times, Stop date: Limited # of timesNotes: (Same as :Nitroquick, Nitrostat) "Do Not Crush" Sublingual tablet No Longer Active 2015 [facility] Morphine 2 mg, 1 mL, Route: IVP, Drug form: INJ, Q15Min, Dosing Weight 113.636, kg, PRN Chest Pain, Start date: 11/28/15 15:24:00 CDT, Duration: 2 doses or times, Stop date: Limited # of timesNotes: (Same as: MORPhine Sulfate) No Longer Active 2015 [facility] Ondansetron 4 mg, 1 tab, Route: PO, Drug form: TAB, Q8H, Dosing Weight 113.636, kg, PRN Nausea & Vomiting, Start date: 11/28/15 15:24:00 CDT, Duration: 30 day, Stop date: 12/28/15 15:23:00 CDTNotes: (Same as: Zofran) No Longer Active 2015 [facility] Aspirin 325 MG Oral Tablet 325 mg, 1 tab, Route: PO, Drug form: TAB, ONCE, Dosing Weight 113.636, kg, Start date: 11/28/15 15:24:00 CDT, Stop date: 11/28/15 15:24:00 CDTNotes: Take with food. Inactive 2015 [facility] Sodium Chloride 0.154 MEQ/ML Injectable Solution 1,000 mL, 1,000 ml/hr, Infuse Over: 1 hr, Route: IV, ONCE, Priority: STAT, Dosing Weight 113.636 kg, Start date: 11/28/15 13:34:00 CDT, Duration: 1 doses or times, Stop date: 11/28/15 13:34:00 CDT Inactive 2015 [facility] Morphine 4 mg, Route: IVP, Drug form: INJ, ONCE, Dosing Weight 113.636, kg, Priority: STAT, Start date: 11/28/15 13:34:00 CDT, Stop date: 11/28/15 13:34:00 CDT Inactive 2015 [facility] Nitroglycerin 0.02 MG/MG Topical Ointment 0.5 inch, Route: TOP, Dosing Weight 113.636, kg, ONCE, STAT, Start date: 11/28/15 13:32:00 CDT, Stop date: 11/28/15 13:32:00 CDT Inactive 2015 [facility] Ipratropium 0.5 mg, 2.5 mL, Route: NEB, Drug form: SOLN, ONCE, Dosing Weight 113.636, kg, Priority: STAT, Start date: 11/28/15 10:59:00 CDT, Stop date: 11/28/15 10:59:00 CDTNotes: SEE RT DOCUMENTATION (Same as:Stacey romero) Inactive 2015 [facility] Albuterol 0.83 MG/ML Inhalant Solution 10 mg, Route: NEB, Drug form: SOLN, Continuous, Dosing Weight 113.636, kg, Priority: STAT, Start date: 11/28/15 10:59:00 CDT, Duration: 30 day, Stop date: 12/28/15 10:58:00 CDT Inactive 2015 [facility] methylPREDNISolone SODium SUCCinate 125 mg, 2 mL, Route: IVP, Drug form: INJ, ONCE, Dosing Weight 113.636, kg, Priority: STAT, Start date: 11/28/15 10:59:00 CDT, Stop date: 11/28/15 10:59:00 CDTNotes: (Same as:Solu-MEDROL, A-Methapred) Inactive 2015 [facility] Magnesium Sulfate 2 gm, Route: IVPB, ONCE, Dosing Weight 113.636, kg, Priority: STAT, Start date: 11/28/15 10:59:00 CDT, Stop date: 11/28/15 10:59:00 CDT Inactive 2015 [facility] Saline Flush 0.9% 10 mL, Route: IVP, Drug Form: INJ, Dosing Weight 113.636, kg, PRN, PRN Line Flush, Start date: 11/28/15 10:59:00 CDT, Duration: 30 day, Stop date: 12/28/15 10:58:00 CDTNotes: (Same as: BD Posiflush) Inactive 2015 [facility] Ketoconazole 20 MG/ML Medicated Shampoo 1 appl, Route: TOP, QWed, Drug form: SHMP, Start date: 08/23/15 9:00:00 CDT, Duration: 30 day, Stop date: 09/20/15 9:00:00 CDT No Longer Active 08/23/2015 [facility] predniSONE 5 mg, 1 tab, Route: PO, Drug form: TAB, Daily, Start date: 08/20/15 9:00:00 CDT, Duration: 3 doses or times, Stop date: 08/22/15 9:00:00 CDTNotes: Take with food. No Longer Active 08/20/2015 [facility] Xarelto 15 mg, 1 tab, Route: PO, Drug form: TAB, Q12H, Dosing Weight 95, kg, Start date: 08/20/15 9:00:00 CDT, Duration: 30 day, Stop date: 09/18/15 21:00:00 CDTNotes: (Same as: Xarelto) Administer with food No Longer Active 08/20/2015 [facility] {42 (rivaroxaban 15 MG Oral Tablet [Xarelto]) / 9 (rivaroxaban 20 MG Oral Tablet [Xarelto]) } Pack [Xarelto Kit] 1 tab, PO, BID-Meals, Take 15 mg tablets twice daily with food for 21 days. Beginning day 22,take one 20 mg tablet daily with food for the remainder of therapy., X 30 day, # 1 pkt, 0 Refill(s) Active 08/20/2015 [facility] Pulmicort Respules 0.5 mg, 2 mL, Route: NEB, Drug form: SUSP, RBID, Start date: 08/19/15 22:00:00 CDT, Duration: 30 day, Stop date: 09/18/15 20:00:00 CDTNotes: (Same As: Pulmicort) No Longer Active 08/20/2015 [facility] Thiamine 100 mg, 1 tab, Route: PO, Drug form: TAB, Daily, Dosing Weight 95, kg, Start date: 08/19/15 9:00:00 CDT, Duration: 30 day, Stop date: 09/17/15 9:00:00 CDTNotes: (Same As: Vitamin B1) No Longer Active 08/19/2015 [facility] Ketoconazole 20 MG/ML Medicated Shampoo 1 appl, Route: TOP, QSat, Drug form: SHMP, Start date: 08/19/15 9:00:00 CDT, Duration: 30 day, Stop date: 09/16/15 9:00:00 CDT No Longer Active 08/19/2015 [facility] Folic Acid 1 mg, 1 tab, Route: PO, Drug form: TAB, Daily, Dosing Weight 95, kg, Start date: 08/19/15 9:00:00 CDT, Duration: 30 day, Stop date: 09/17/15 9:00:00 CDTNotes: (Same as: Folvite) No Longer Active 08/19/2015 [facility] Flonase 0.05 mg/inh nasal spray 2 spray, Route: Each Affected Nostril, Drug Form: SPRY, Dosing Weight 95, kg, Daily, Start date: 08/19/15 9:00:00 CDT, Duration: 30 day, Stop date: 09/17/15 9:00:00 CDTNotes: (Same as: Flonase) No Longer Active 08/19/2015 [facility] Aspirin 81 mg, 1 tab, Route: PO, Drug form: ECTAB, Daily, Dosing Weight 95, kg, Start date: 08/19/15 9:00:00 CDT, Duration: 30 day, Stop date: 09/17/15 9:00:00 CDTNotes: Do not crush or chew. (Same As: Ecotrin) No Longer Active 08/19/2015 [facility] Bacitracin 0.4 UNT/MG / Neomycin 0.0035 MG/MG / Polymyxin B 10 UNT/MG Ophthalmic Ointment 1 appl, Route: BOTH EYES, Q3H, Drug form: OINT, Start date: 08/18/15 23:00:00 CDT, Duration: 30 day, Stop date: 09/17/15 20:00:00 CDTNotes: (bacitracin/neomycin/ polymyxin B 3.5 gm oph OIN) (Same As: Neosporin, Triple Antibiotic) No Longer Active 08/19/2015 [facility] Mirtazapine 30 mg, 2 tab, Route: PO, Drug form: TAB, Bedtime, Dosing Weight 95, kg, Start date: 08/18/15 21:00:00 CDT, Duration: 30 day, Stop date: 09/16/15 21:00:00 CDTNotes: (Same as:Remeron) No Longer Active 08/19/2015 [facility] carvedilol 3.125 mg, 1 tab, Route: PO, Drug form: TAB, Q12H, Dosing Weight 95, kg, Start date: 08/18/15 21:00:00 CDT, Duration: 30 day, Stop date: 09/17/15 9:00:00 CDTNotes: Give with food. (Same As: Coreg) No Longer Active 08/19/2015 [facility] Budesonide 1 inhalation, Route: INHALATION, Drug form: PWDR, RBID, Dosing Weight 95, kg, Start date: 08/18/15 20:00:00 CDT, Duration: 30 day, Stop date: 09/17/15 8:00:00 CDTNotes: Same as Pulmicort Flexhaler Non- Formulary Drug Inactive 08/19/2015 [facility] Polymyxin B 46344 UNT/ML / Trimethoprim 1 MG/ML Ophthalmic Solution 1 drp, Route: BOTH EYES, Q3H, Start date: 08/18/15 17:00:00 CDT, Duration: 30 day, Stop date: 09/17/15 14:00:00 CDT Inactive 08/18/2015 [facility] Warfarin 7.5 mg, 1 tab, Route: [...] (Same As: Coumadin) No Longer Active 08/18/2015 [facility] POLYETHYLENE GLYCOL 3350 17 gm, Route: PO, Drug form: PDR/REC, BID, Dosing Weight 95, kg, Start date: 08/18/15 17:00:00 CDT, Duration: 30 day, Stop date: 09/17/15 9:00:00 CDTNotes: (Same as: MiraLax) No Longer Active 08/18/2015 [facility] Polymyxin B 19098 UNT/ML / Trimethoprim 1 MG/ML Ophthalmic Solution 1 drp, BOTH EYES, Q3H, X 7 day, # 10 mL, 0 Refill(s) No Longer Active 08/18/2015 [facility] remove patch 1 patch, Route: TOP, Q24H, Drug form: ERFILM, Start date: 08/18/15 15:00:00 CDT, Duration: 30 day, Stop date: 09/16/15 15:00:00 CDTNotes: Remove patch 12 hours after application each day. No Longer Active 08/18/2015 [facility] Lidocaine Hydrochloride 0.05 MG/MG Transdermal Patch [Lidoderm] 1 patch, Route: TOP, Q24H, Drug form: FILM, Start date: 08/18/15 15:00:00 CDT, Duration: 30 day, Stop date: 09/16/15 15:00:00 CDTNotes: Apply only once for up to 12 hours in a 24-hour period (12 hours on and 12 hours off). (Same as: Lidoderm) "Remove old patch before application of new patch" No Longer Active 08/18/2015 [facility] predniSONE 10 mg, 1 tab, Route: PO, Drug form: TAB, Daily, Start date: 08/18/15 14:27:00 CDT, Duration: 2 doses or times, Stop date: 08/19/15 9:00:00 CDTNotes: (Same as: PredniSONE) Take with food. No Longer Active 08/18/2015 [facility] tramadol hydrochloride 50 MG Oral Tablet [Ultram] 50 mg, 1 tab, Route: PO, Drug form: TAB, Q6H, Dosing Weight 95, kg, PRN Pain Score 6- 10, Start date: 08/18/15 14:08:00 CDT, Duration: 30 day, Stop date: 09/17/15 14:07:00 CDTNotes: Not to exceed 400mg/day. (Same As: Ultram) No Longer Active 08/18/2015 [facility] Prednisone 1 MG Oral Tablet Dose: See Instructions, Route: SUB-Q, Drug form: TAB, Sliding Scale, PRN Blood Glucose Results, Start date: 08/18/15 14:08:00 CDT, Duration: 30 day, Stop date: 09/17/15 14:07:00 CDT Inactive 08/18/2015 [facility] Nitroglycerin 0.4 MG Sublingual Tablet 0.4 mg, 1 tab, Route: SL, Drug form: TAB, Q5Min, Dosing Weight 95, kg, PRN Chest Pain, Start date: 08/18/15 14:08:00 CDT, Duration: 30 day, Stop date: 09/17/15 14:07:00 CDTNotes: (Same as:Nitroquick, Nitrostat) "Do Not Crush" Sublingual tablet No Longer Active 08/18/2015 [facility] hydrocortisone topical 2.5% cream 1 appl, Route: TOP, BID, Drug form: CRM, PRN Itching, Start date: 08/18/15 14:08:00 CDT, Duration: 30 day, Stop date: 09/17/15 14:07:00 CDT No Longer Active 08/18/2015 [facility] Calcium Carbonate 500 MG Chewable Tablet 500 mg, 1 tab, Route: CHEW, Drug form: CHEWTAB, TID, Dosing Weight 95, kg, PRN Indigestion, Start date: 08/18/15 14:08:00 CDT, Duration: 30 day, Stop date: 09/17/15 14:07:00 CDTNotes: (Same As: Tums) Calcium Carbonate 500 dq=686 mg elemental calcium Dose= mg calcium carbonate ( mg elemental calcium) No Longer Active 08/18/2015 [facility] 200 ACTUAT Albuterol 0.09 MG/ACTUAT Metered Dose Inhaler 2 puff, Route: INHALATION, Drug Form: AERO/A, Dosing Weight 95, kg, RQID, PRN Wheezing, Start date: 08/18/15 14:08:00 CDT, Duration: 30 day, Stop date: 09/17/15 14:07:00 CDT No Longer Active 08/18/2015 [facility] Acetaminophen 1,000 mg, 2 tab, Route: PO, Drug form: TAB, Q6H, Dosing Weight 95, kg, PRN Pain Score 1-5, Start date: 08/18/15 14:07:00 CDT, Duration: 30 day, Stop date: 09/17/15 14:06:00 CDTNotes: Max acetaminophen 4000 mg/day (4 gm/day). (Same as: Tylenol Extra Strength) No Longer Active 08/18/2015 [facility] Sodium Chloride 0.9% IV 25 mL, Route: IV, Start date: 08/18/15 14:03:00 CDT, Duration: 30 day, Stop date: 09/17/15 14:02:00 CDT, PRN Line Flush No Longer Active 08/18/2015 [facility] Artificial Tears 1 drp, Route: Each Affected Eye, QID, Drug form: SOLN, PRN Dry Eyes, Start date: 08/18/15 13:56:00 CDT, Duration: 30 day, Stop date: 09/17/15 13:55:00 CDTNotes: (Same as: Aquasite) No Longer Active 08/18/2015 [facility] Diphenhydramine 25 mg, 0.5 mL, Route: IV, Drug form: INJ, Q6H, Dosing Weight 95, kg, PRN as needed for itching, Start date: 08/18/15 13:55:00 CDT, Duration: 30 day, Stop date: 09/17/15 13:54:00 CDTNotes: (Same as: Benadryl) No Longer Active 08/18/2015 [facility] Lorazepam 1 mg, 0.5 mL, Route: IV, Drug form: INJ, Q6H, Dosing Weight 95, kg, PRN as needed for anxiety, Start date: 08/18/15 13:55:00 CDT, Stop date: 09/17/15 13:54:00 CDTNotes: (Same as: Ativan) No Longer Active 08/18/2015 [facility] Ketoconazole 20 MG/ML Medicated Shampoo 1 appl, TOP, QSat, 0 Refill(s) Active 08/18/2015 [facility] Ketoconazole 20 MG/ML Medicated Shampoo 1 appl, TOP, QWed, 0 Refill(s) Active 08/18/2015 [facility] Saline Flush 0.9% 10 mL, Route: IVP, Drug Form: INJ, Dosing Weight 99.574, kg, PRN, PRN Line Flush, Start date: 08/18/15 8:30:00 CDT, Duration: 30 day, Stop date: 09/17/15 8:29:00 CDTNotes: (Same as: BD Posiflush) No Longer Active 08/18/2015 [facility] Ativan 1 mg, 1 tab, Route: PO, Drug form: TAB, ONCE, Dosing Weight 99.574, kg, Start date: 08/17/15 23:25:00 CDT, Stop date: 08/17/15 23:25:00 CDTNotes: (Same as: Ativan) Inactive 08/18/2015 [facility] tramadol hydrochloride 50 MG Oral Tablet [Ultram] 50 mg=1 tab, PO, Q6H, PRN Pain Score 6-10, # 1 tab, 0 Refill(s), other Active 08/18/2015 [facility] predniSONE 10 mg oral tablet See Instructions, Take 1 tab (10mg) PO daily for 2 days and then take 1/2 tab (5mg) PO daily for 3 days and stop. Take w/ food., # 1 tab, 0 Refill(s), other Active 08/18/2015 [facility] 200 ACTUAT Albuterol 0.09 MG/ACTUAT Metered Dose Inhaler 2 puff, INHALATION, QID, PRN as needed for wheezing, # 3 ea, 0 Refill(s), other Active 08/18/2015 [facility] thiamine 100 mg oral tablet 100 mg=1 tab, PO, Daily, 0 Refill(s) Active 08/18/2015 [facility] tramadol hydrochloride 50 MG Oral Tablet [Ultram] 50 mg=1 tab, PO, Q4H, PRN Pain Score 4-6, 0 Refill(s) Inactive 08/18/2015 [facility] POLYETHYLENE GLYCOL 3350 17 gm, PO, BID, 0 Refill(s) Active 08/18/2015 [facility] methocarbamol 500 mg oral tablet 500 mg=1 tab, PO, QID, PRN Muscle Spasms, per RN Sonny at [facility], MD did not approve robaxin and not taking, 0 Refill(s) No Longer Active 08/18/2015 [facility] Lidocaine Hydrochloride 0.05 MG/MG Transdermal Patch [Lidoderm] 1 patch, TOP, Q24H, Remove after 12 hours, 0 Refill(s) Active 08/18/2015 [facility] hydrocortisone topical 2.5% cream 1 appl, TOP, BID, PRN Itching, 0 Refill(s) Active 08/18/2015 [facility] Folic Acid 1 MG Oral Tablet 1 mg=1 tab, PO, Daily, 0 Refill(s) Active 08/18/2015 [facility] Calcium Carbonate 500 MG Chewable Tablet 500 mg=1 tab, CHEW, TID, PRN Indigestion, 0 Refill(s) Active 08/18/2015 [facility] Flonase 0.05 mg/inh nasal spray 100 microgram=2 spray, Each Affected Nostril, Daily, 0 Refill(s) Active 08/18/2015 [facility] busPIRone 5 mg oral tablet 5 mg=1 tab, PO, TID, Investigating the current use. New rx from 08/17/15 but not seen on papaers provided by facility. RN Sonny will fax the list, 0 Refill(s) No Longer Active 08/18/2015 [facility] mirtazapine 30 mg oral tablet 30 mg=1 tab, PO, Bedtime, 0 Refill(s) Active 08/18/2015 [facility] warfarin 2.5 mg oral tablet 7.5 mg, PO, QPM, # 1 tab, 0 Refill(s), other No Longer Active 08/18/2015 [facility] acetaminophen 500 mg oral tablet 1,000 mg=2 tab, PO, Q6H, PRN Pain Score 1-5, 0 Refill(s) Active 08/18/2015 [facility] Warfarin 7.5 mg, 1 tab, Route: PO, [...] Waste Black (Same As: Coumadin) Inactive 08/17/2015 [facility] Buspar 5 mg, 1 tab, Route: PO, Drug form: TAB, TID, Dosing Weight 99.574, kg, Start date: 08/17/15 9:00:00 CDT, Duration: 30 day, Stop date: 09/15/15 17:00:00 CDTNotes: (Same As: BuSpar) No Longer Active 08/17/2015 [facility] Warfarin 7.5 mg, 1 tab, Route: PO, [...] Waste Black (Same As: Coumadin) Inactive 08/16/2015 [facility] Methocarbamol 500 mg, 1 tab, Route: PO, Drug form: TAB, QID, Dosing Weight 99.574, kg, PRN Muscle Spasms, Start date: 08/15/15 22:54:00 CDT, Duration: 30 day, Stop date: 09/14/15 22:53:00 CDTNotes: (Same as:Robaxin) No Longer Active 08/16/2015 [facility] Ativan 1 mg, 0.5 mL, Route: IVP, Drug form: INJ, ONCE, Dosing Weight 99.574, kg, Start date: 08/15/15 19:39:00 CDT, Stop date: 08/15/15 19:39:00 CDTNotes: (Same as: Ativan) Inactive 08/16/2015 [facility] Warfarin 6 mg, 1 tab, Route: PO, [...] Waste Black (Same As: Coumadin) Inactive 08/15/2015 [facility] Clonazepam 0.25 mg, 0.5 tab, Route: PO, Drug form: TAB, ONCE, Dosing Weight 99.574, kg, Priority: NOW, Start date: 08/15/15 10:09:00 CDT, Stop date: 08/15/15 10:09:00 CDTNotes: (Same As: KlonoPIN) Inactive 08/15/2015 [facility] Warfarin 5 mg, 1 tab, Route: PO, [...] Waste Black (Same As: Coumadin) Inactive 08/14/2015 [facility] remove patch 1 patch, Route: TOP, Bedtime, Drug form: ERFILM, Start date: 08/14/15 1:00:00 CDT, Duration: 30 day, Stop date: 09/12/15 1:00:00 CDTNotes: Remove patch 12 hours after application each day. No Longer Active 08/14/2015 [facility] Warfarin 5 mg, 1 tab, Route: PO, [...] Waste Black (Same As: Coumadin) Inactive 08/13/2015 [facility] Miralax 17 gm, 1 pkt, Route: PO, Drug form: PWDR, BID, Dosing Weight 99.574, kg, Priority: NOW, Start date: 08/13/15 14:34:00 CDT, Duration: 30 day, Stop date: 09/12/15 9:00:00 CDTNotes: Dissolve in 8 oz of water or juice. (Same as: Miralax) No Longer Active 08/13/2015 [facility] Dulcolax Laxative 10 mg, 1 supp, Route: OR, Drug form: SUPP, ONCE, Dosing Weight 99.574, kg, Priority: NOW, Start date: 08/13/15 14:29:00 CDT, Stop date: 08/13/15 14:29:00 CDTNotes: (Same As: Dulcolax, Bisco- Lax) Inactive 08/13/2015 [facility] Lidocaine Hydrochloride 0.05 MG/MG Transdermal Patch [Lidoderm] [...] of new patch" No Longer Active 08/13/2015 [facility] Warfarin 6 mg, 1 tab, Route: PO, Drug form: TAB, Q5PM, Dosing Weight 99.574, kg, Start date: 08/12/15 17:00:00, Duration: 1 doses or times, Stop date: 08/12/15 17:00:00Notes: Nurse to ensure documentation of pat ient education per anticoagulation policy. Avoid large intake of vitamin-K containing foods diet. WASTE: F/P - P Waste Black; E - P Waste Black (Same As: Coumadin) Inactive 08/12/2015 [facility] warfarin 3 mg oral tablet 6 mg=2 tab, PO, Daily, # 30 tab, 0 Refill(s) No Longer Active 08/12/2015 [facility] 200 ACTUAT Albuterol 0.09 MG/ACTUAT Metered Dose Inhaler 2 puff, INHALATION, QID, # 3 ea, 0 Refill(s) No Longer Active 08/12/2015 [facility] predniSONE 10 mg oral tablet 20 mg=2 tab, PO, Daily, for 3 days then 1 tab daily for 3 days then 0.5 tab for 4 days., # 11 tab, 0 Refill(s) Inactive 08/12/2015 [facility] carvedilol 3.125 mg oral tablet 3.125 mg=1 tab, PO, Q12H, # 60 tab, 0 Refill(s) Active 08/12/2015 [facility] tramadol hydrochloride 50 MG Oral Tablet 50 mg=1 tab, PO, Q6H, PRN Pain, PRN for pain q 6 hrs, # 30 tab, 0 Refill(s) Inactive 08/12/2015 [facility] Nitroglycerin 0.4 MG Sublingual Tablet 0.4 mg=1 tab, SL, Q5Min, PRN Chest Pain, Give up to 3 doses. Call 911 if pain persists., # 100 tab, 0 Refill(s) Active 08/12/2015 [facility] mirtazapine 15 mg oral tablet 15 mg=1 tab, PO, Bedtime, # 30 tab, 0 Refill(s) No Longer Active 08/12/2015 [facility] budesonide 180 mcg/inh inhalation powder 1 puff, INHALATION, BID, # 2 ea, 0 Refill(s) Active 08/12/2015 [facility] Warfarin 7.5 mg, 1 tab, Route: PO, Drug form: TAB, Q5PM, Dosing Weight 99.574, kg, Start date: 08/11/15 17:00:00, Duration: 1 doses or times, Stop date: 08/11/15 17:00:00Notes: Nurse to ensure documentation of p atient education per anticoagulation policy. Avoid large intake of vitamin-K containing foods diet. WASTE: F/P - P Waste Black; E - P Waste Black (Same As: Coumadin) Inactive 08/11/2015 [facility] Warfarin 6 mg, 1 tab, Route: PO, Drug form: TAB, Q5PM, Dosing Weight 99.574, kg, Start date: 08/10/15 17:00:00, Duration: 1 doses or times, Stop date: 08/10/15 17:00:00Notes: Nurse to ensure documentation of pat ient education per anticoagulation policy. Avoid large intake of vitamin-K containing foods diet. WASTE: F/P - P Waste Black; E - P Waste Black (Same As: Coumadin) Inactive 08/10/2015 [facility] Warfarin 7.5 mg, 1 tab, Route: PO, Drug form: TAB, ONCE, Dosing Weight 99.574, kg, Priority: NOW, Start date: 08/09/15 18:12:00, Stop date: 08/09/15 18:12:00Notes: Nurse to ensure documentation of patient education per anticoagulation policy. Avoid large intake of vitamin-K containing foods diet. WASTE: F/P - P Waste Black; E - P Waste Black (Same As: Coumadin) Inactive 08/09/2015 [facility] Oxycodone Hydrochloride 5 MG Oral Tablet 5 mg, 1 tab, Route: PO, Drug form: TAB, Q6H, Dosing Weight 99.574, kg, PRN Pain Score 7-10, Start date: 08/08/15 18:10:00 CDT, Duration: 30 day, Stop date: 09/07/15 18:09:00 CDTNotes: (Same as: Roxicodone) No Longer Active 08/08/2015 [facility] Tums 500 mg, 1 tab, Route: CHEW, Drug form: CHEWTAB, TID, Dosing Weight 99.574, kg, PRN Indigestion, Start date: 08/08/15 18:07:00, Duration: 30 day, Stop date: 09/07/15 18:06:00Notes: (Same As: Tums) Calcium Carbonate 500 ro=005 mg elemental calcium Dose= mg calcium carbonate ( mg elemental calcium) No Longer Active 08/08/2015 [facility] Coumadin 7.5 mg, 1 tab, Route: PO, Drug form: TAB, Q5PM, Dosing Weight 99.574, kg, Start date: 08/08/15 17:00:00, Duration: 1 doses or times, Stop date: 08/08/15 17:00:00Notes: Nurse to ensure documentation of p atient education per anticoagulation policy. Avoid large intake of vitamin-K containing foods diet. WASTE: F/P - P Waste Black; E - P Waste Black (Same As: Coumadin) Inactive 08/08/2015 [facility] Tylenol 1,000 mg, 2 tab, Route: PO, Drug form: TAB, Q6H, Dosing Weight 99.574, kg, Start date: 08/07/15 18:00:00, Duration: 30 day, Stop date: 09/06/15 12:00:00Notes: Max acetaminophen 4000 mg/day (4 gm/day). (Same as: Tylenol Extra Strength) No Longer Active 08/07/2015 [facility] Coumadin 7.5 mg, 1 tab, Route: PO, Drug form: TAB, Q5PM, Dosing Weight 99.574, kg, Start date: 08/07/15 17:00:00, Duration: 1 doses or times, Stop date: 08/07/15 17:00:00Notes: Nurse to ensure documentation of p atient education per anticoagulation policy. Avoid large intake of vitamin-K containing foods diet. WASTE: F/P - P Waste Black; E - P Waste Black (Same As: Coumadin) Inactive 08/07/2015 [facility] tramadol hydrochloride 50 MG Oral Tablet [Ultram] 50 mg, 1 tab, Route: PO, Drug form: TAB, Q4H, Dosing Weight 99.574, kg, PRN Pain Score 4-6, Start date: 08/07/15 12:36:00, Duration: 30 day, Stop date: 09/06/15 12:35:00Notes: Not to exceed 400mg/day. (Same As: Ultram) No Longer Active 08/07/2015 [facility] naproxen sodium 550 mg, Route: PO, Drug form: TAB, BID, Dosing Weight 99.574, kg, PRN Pain Score 1-3, Start date: 08/07/15 12:27:00, Duration: 30 day, Stop date: 09/06/15 12:26:00 Inactive 08/07/2015 [facility] Acetaminophen 325 MG / Hydrocodone Bitartrate 5 MG Oral Tablet [[place] 5/325] 1 tab, Route: PO, Drug Form: TAB, Dosing Weight 99.574, kg, Q4H, PRN Pain Score 1-3, Start date: 08/07/15 10:36:00, Duration: 30 day, Stop date: 09/06/15 10:35:00Notes: (Same as: [place] 325/5) Do not exceed 4gm/day of acetaminophen. Inactive 08/07/2015 [facility] Coumadin 5 mg, 1 tab, Route: PO, Drug form: TAB, Q5PM, Dosing Weight 99.574, kg, Start date: 08/06/15 17:00:00, Duration: 1 doses or times, Stop date: 08/06/15 17:00:00Notes: Nurse to ensure documentation of pat ient education per anticoagulation policy. Avoid large intake of vitamin-K containing foods diet. WASTE: F/P - P Waste Black; E - P Waste Black (Same As: Coumadin) Inactive 08/06/2015 [facility] Ativan 0.5 mg, 1 tab, Route: PO, Drug form: TAB, TID, Dosing Weight 99.574, kg, PRN Anxiety, Start date: 08/06/15 9:39:00, Duration: 30 day, Stop date: 09/05/15 9:38:00Notes: (Same as: Ativan) No Longer Active 08/06/2015 [facility] Ativan 0.5 mg, 0.25 mL, Route: IV, Drug form: INJ, ONCE, Dosing Weight 99.574, kg, Start date: 08/06/15 9:06:00, Stop date: 08/06/15 9:06:00Notes: (Same as: Ativan) Inactive 08/06/2015 [facility] Ativan 0.5 mg, 0.25 mL, Route: IV, Drug form: INJ, ONCE, Dosing Weight 99.574, kg, Start date: 08/06/15 8:49:00, Stop date: 08/06/15 8:49:00Notes: (Same as: Ativan) Inactive 08/06/2015 [facility] Coumadin 10 mg, 1 tab, Route: PO, Drug form: TAB, Q5PM, Dosing Weight 99.574, kg, Start date: 08/05/15 17:00:00, Duration: 1 doses or times, Stop date: 08/05/15 17:00:00Notes: Nurse to ensure documentation of pa tient education per anticoagulation policy. Avoid large intake of vitamin-K containing foods diet. (Same As: Coumadin) WASTE: F/P - P Waste Black; E - P Waste Black Inactive 08/05/2015 [facility] Coreg 3.125 mg, 1 tab, Route: PO, Drug form: TAB, Q12H, Dosing Weight 99.574, kg, Priority: NOW, Start date: 08/04/15 20:48:00, Duration: 30 day, Stop date: 09/03/15 9:00:00Notes: Give with food. (Same As: Coreg) No Longer Active 08/05/2015 [facility] Warfarin 10 mg, 1 tab, Route: PO, Drug form: TAB, Q5PM, Dosing Weight 99.574, kg, Start date: 08/04/15 17:00:00, Duration: 1 doses or times, Stop date: 08/04/15 17:00:00Notes: Nurse to ensure documentation of pa tient education per anticoagulation policy. Avoid large intake of vitamin-K containing foods diet. (Same As: Coumadin) WASTE: F/P - P Waste Black; E - P Waste Black Inactive 08/04/2015 [facility] Prednisone 10 mg, 1 tab, Route: PO, Drug form: TAB, Daily, Dosing Weight 99.574, kg, Start date: 08/04/15 9:00:00 CDT, Stop date: 09/02/15 9:00:00 CDTNotes: (Same as: PredniSONE) Take with food. No Longer Active 08/04/2015 [facility] Coumadin 7.5 mg, 1 tab, Route: PO, Drug form: TAB, Q5PM, Dosing Weight 99.574, kg, Start date: 08/03/15 17:00:00, Duration: 1 doses or times, Stop date: 08/03/15 17:00:00Notes: Nurse to ensure documentation of p atient education per anticoagulation policy. Avoid large intake of vitamin-K containing foods diet. WASTE: F/P - P Waste Black; E - P Waste Black (Same As: Coumadin) Inactive 08/03/2015 [facility] K-Dur 20 40 mEq, 2 tab, Route: PO, Drug form: ERTAB, ONCE, Start date: 08/03/15 14:00:00, Stop date: 08/03/15 14:00:00Notes: (Same as: K- Dur 20) "Do Not Crush" With food and full glass of water Inactive 08/03/2015 [facility] Flonase 0.05 mg/inh nasal spray 2 spray, Route: Each Affected Nostril, Drug Form: SPRY, Dosing Weight 99.574, kg, Daily, NOW, Start date: 08/02/15 18:04:00, Stop date: 09/01/15 9:00:00Notes: (Same as: Flonase) No Longer Active 08/02/2015 [facility] Budesonide 0.25 MG/ML Inhalant Solution [Pulmicort] 0.5 mg, 2 mL, Route: NEB, Drug form: SUSP, BID, Dosing Weight 99.574, kg, Priority: NOW, Start date: 08/02/15 17:58:00, Duration: 30 day, Stop date: 09/01/15 17:00:00Notes: (Same As: Pulmicort) No Longer Active 08/02/2015 [facility] Coumadin 7.5 mg, 1 tab, Route: PO, Drug form: TAB, Q5PM, Dosing Weight 99.574, kg, Start date: 08/02/15 17:00:00, Duration: 1 doses or times, Stop date: 08/02/15 17:00:00Notes: Nurse to ensure documentation of p atient education per anticoagulation policy. Avoid large intake of vitamin-K containing foods diet. WASTE: F/P - P Waste Black; E - P Waste Black (Same As: Coumadin) Inactive 08/02/2015 [facility] Albuterol 0.83 MG/ML Inhalant Solution 2.49 mg, 3 mL, Route: PO, Drug form: SOLN, RQ4H, Dosing Weight 99.574, kg, PRN Wheezing, Start date: 08/02/15 10:21:00, Duration: 30 day, Stop date: 09/01/15 10:20:00Notes: SEE RT DOCUMENTATION (Same as: Proventil) No Longer Active 08/02/2015 [facility] Coumadin 7.5 mg, 1 tab, Route: PO, Drug form: TAB, Q5PM, Start date: 08/01/15 17:00:00, Duration: 1 day, Stop date: 08/01/15 17:00:00Notes: Nurse to ensure documentation of patient education per anticoagulation policy. Avoid large intake of vitamin-K containing foods diet. WASTE: F/P - P Waste Black; E - P Waste Black (Same As: Coumadin) Inactive 08/01/2015 [facility] Warfarin 5 mg, Route: PO, Q5PM, Dosing Weight 99.574, kg, Start date: 08/01/15 17:00:00, Duration: 1 doses or times, Stop date: 08/01/15 17:00:00 Inactive 08/01/2015 [facility] Bumex 1 mg, 1 tab, Route: PO, Drug form: TAB, Daily, Dosing Weight 99.574, kg, Start date: 08/01/15 9:00:00, Duration: 30 day, Stop date: 08/30/15 9:00:00Notes: (Same As: Bumex) No Longer Active 08/01/2015 [facility] trazodone 50 mg oral tablet 25 mg, 0.5 tab, Route: PO, Drug form: TAB, ONCE, Dosing Weight 99.574, kg, Start date: 07/31/15 23:00:00, Stop date: 07/31/15 23:00:00Notes: (Same As: Desyrel) Inactive 08/01/2015 [facility] Trazodone 25 mg, 0.5 tab, Route: PO, Drug form: TAB, ONCE, Dosing Weight 99.574, kg, PRN Sleep, Start date: 07/31/15 21:49:00, Stop date: 07/31/15 21:49:00Notes: (Same As: Desyrel) Inactive 08/01/2015 [facility] Warfarin 5 mg, 1 tab, Route: PO, Drug form: TAB, Q5PM, Dosing Weight 99.574, kg, Start date: 07/31/15 17:00:00, Duration: 1 doses or times, Stop date: 07/31/15 17:00:00Notes: Nurse to ensure documentation of pat ient education per anticoagulation policy. Avoid large intake of vitamin-K containing foods diet. WASTE: F/P - P Waste Black; E - P Waste Black (Same As: Coumadin) Inactive 07/31/2015 [facility] Lactulose 20 gm, 30 ml, Route: PO, Drug Form: SYRP, Dosing Weight 99.574, kg, ONCE, PRN Constipation, Start date: 07/31/15 9:55:00, Stop date: 08/30/15 9:54:00Notes: (Same as:Chronulac) Inactive 07/31/2015 [facility] azithromycin 250 mg oral tablet 250 mg, 1 tab, Route: PO, Drug form: TAB, Daily, Dosing Weight 99.574, kg, Start date: 07/31/15 9:00:00, Duration: 4 day, Stop date: 08/03/15 9:00:00Notes: Take 1 hour before or 2 hours after meals. (Same As: Zithromax) No Longer Active 07/31/2015 [facility] Lidocaine Hydrochloride 10 MG/ML Injectable Solution 100 mg, 10 mL, Route: IV, Drug Form: INJ, Dosing Weight 99.574, kg, ONCE, Start date: 07/30/15 20:34:00, Stop date: 07/30/15 20:34:00Notes: (Same as: Xylocaine) Inactive 07/31/2015 [facility] Lidocaine Hydrochloride 20 MG/ML Injectable Solution 200 mg, 10 mL, Route: SUB-Q, Drug Form: INJ, Dosing Weight 99.574, kg, ONCE, Start date: 07/30/15 18:53:00, Stop date: 07/30/15 18:53:00Notes: Syringe (Same as: Xylocaine) Inactive 07/30/2015 [facility] azithromycin 500 mg oral tablet 500 mg, 2 tab, Route: PO, Drug form: TAB, Daily, Dosing Weight 99.574, kg, Priority: STAT, Start date: 07/30/15 18:45:00, Duration: 1 doses or times, Stop date: 07/30/15 18:45:00Notes: Take 1 hour before or 2 hours after meals. (Same As: Zithromax) Inactive 07/30/2015 [facility] Albuterol 0.833 MG/ML / Ipratropium [place] 0.167 MG/ML Inhalant Solution 3 ml, Route: NEB, Drug Form: SOLN, Dosing Weight 99.574, kg, RQ4H, STAT, Start date: 07/30/15 18:45:00, Duration: 30 day, Stop date: 08/29/15 15:00:00Notes: (Same as: Duoneb) No Longer Active 07/30/2015 [facility] Prednisone 60 mg, 3 tab, Route: PO, Drug form: TAB, Daily, Dosing Weight 99.574, kg, Priority: STAT, Start date: 07/30/15 18:45:00, Duration: 30 day, Stop date: 08/29/15 9:00:00Notes: Take with food. No Longer Active 07/30/2015 [facility] Magnesium Sulfate 2 gm, 50 mL, Route: IVPB, Drug form: INJ, ONCE, Dosing Weight 99.574, kg, Start date: 07/30/15 15:19:00, Duration: 2 hr, Stop date: 07/30/15 15:19:00Notes: WASTE: F/P - Sink; E - Municipal Trash Bin Inactive 07/30/2015 [facility] Tylenol 650 mg, 2 tab, Route: PO, Drug form: TAB, ONCE, Dosing Weight 99.574, kg, Start date: 07/30/15 1:27:00, Stop date: 07/30/15 1:27:00Notes: Do not exceed 4 gm/day. (Same as: Tylenol) Inactive 07/30/2015 [facility] Magnesium Sulfate 2 gm, 50 mL, Route: IVPB, Drug form: INJ, ONCE, Dosing Weight 99.574, kg, Start date: 07/29/15 10:51:00, Duration: 2 hr, Stop date: 07/29/15 10:51:00Notes: WASTE: F/P - Sink; E - Municipal Trash Bin Inactive 07/29/2015 [facility] Bumex 1 mg, 4 mL, Route: IVP, Drug form: INJ, Daily, Dosing Weight 99.574, kg, Priority: NOW, Start date: 07/29/15 10:17:00, Duration: 30 day, Stop date: 08/28/15 9:00:00Notes: (Same As: Bumex) No Longer Active 07/29/2015 [facility] ketoconazole topical 2% shampoo 1 appl, Route: SHAMPOO, QSat, Drug form: SHMP, Start date: 07/29/15 9:00:00, Duration: 30 day, Stop date: 08/26/15 9:00:00Notes: Non-Formulary Drug (Same as:Nizoral Topical) No Longer Active 07/29/2015 [facility] normal saline 0.9% IV 1,000 mL 1,000 mL, Rate: 50 ml/hr, Infuse over: 20 hr, Route: IVPB, Dosing Weight 99.574 kg, Total Volume: 1,000, Start date: 07/27/15 22:04:00, Duration: 30 day, Stop date: 08/26/15 22:03:00 No Longer Active 07/28/2015 [facility] hydrocortisone topical 2.5% cream 1 appl, Route: TOP, BID, Drug form: CRM, PRN Itching, Start date: 07/26/15 14:53:00, Duration: 30 day, Stop date: 08/25/15 14:52:00 No Longer Active 07/26/2015 [facility] Ketoconazole 20 MG/ML Medicated Shampoo 1 appl, Route: TOP, QWed, Drug form: SHMP, Start date: 07/26/15 14:50:00, Duration: 30 day, Stop date: 08/23/15 15:00:00Notes: Non-Formulary Drug (Same as:Nizoral Topical) No Longer Active 07/26/2015 [facility] tiotropium 0.018 MG/ACTUAT Inhalant Powder [Spiriva] 18 microgram, 1 inhalation, Route: INHALATION, Drug form: CAP, Daily, Dosing Weight 99.574, kg, Start date: 07/26/15 9:00:00, Duration: 30 day, Stop date: 08/24/15 9:00:00Notes: (Same As: Spiriva) No Longer Active 07/26/2015 [facility] Clonidine Hydrochloride 0.1 MG Oral Tablet 0.1 mg, 1 tab, Route: PO, Drug form: TAB, TID, Dosing Weight 99.574, kg, Start date: 07/22/15 17:00:00, Duration: 30 day, Stop date: 08/21/15 13:00:00Notes: (Same As: Catapres) No Longer Active 07/22/2015 [facility] Remeron 30 mg, 2 tab, Route: PO, Drug form: TAB, Bedtime, Dosing Weight 99.574, kg, Start date: 07/21/15 21:00:00, Duration: 30 day, Stop date: 08/19/15 21:00:00Notes: (Same as:Remeron) Inactive 07/22/2015 [facility] Mirtazapine 30 mg, 1 tab, Route: PO, Drug form: TAB, Bedtime, Dosing Weight 99.574, kg, Start date: 07/21/15 21:00:00, Duration: 30 day, Stop date: 09/18/15 21:00:00Notes: (Same as:Remeron) No Longer Active 07/22/2015 [facility] Hydrocortisone-Aloe 0.5% topical cream 1 appl, Route: TOP, BID, Drug form: CRM, Start date: 07/21/15 9:00:00, Duration: 30 day, Stop date: 08/19/15 17:00:00 No Longer Active 07/21/2015 [facility] Aspirin 81 mg, 1 tab, Route: PO, Drug form: ECTAB, Daily, Dosing Weight 99.574, kg, Start date: 07/21/15 9:00:00, Duration: 30 day, Stop date: 09/18/15 9:00:00Notes: Do not crush or chew. (Same As: Ecotrin) No Longer Active 07/21/2015 [facility] Clonidine Hydrochloride 0.1 MG Oral Tablet 0.1 mg, 1 tab, Route: PO, Drug form: TAB, QID, Dosing Weight 99.574, kg, Start date: 07/21/15 9:00:00, Duration: 30 day, Stop date: 08/19/15 21:00:00Notes: (Same As: Catapres) No Longer Active 07/21/2015 [facility] Folic Acid 1 mg, 1 tab, Route: PO, Drug form: TAB, Daily, Dosing Weight 99.574, kg, Start date: 07/21/15 9:00:00, Duration: 30 day, Stop date: 09/18/15 9:00:00Notes: (Same as: Folvite) No Longer Active 07/21/2015 [facility] Thiamine 100 mg, 1 tab, Route: PO, Drug form: TAB, Daily, Dosing Weight 99.574, kg, Start date: 07/21/15 9:00:00, Duration: 30 day, Stop date: 09/18/15 9:00:00Notes: (Same As: Vitamin B1) No Longer Active 07/21/2015 [facility] heparin additive 25,000 unit [18 unit/kg/hr] + Premix Diluent Dextrose 5% 500 mL 500 mL, Rate: 31.1 ml/hr, Infuse over: 16.1 hr, Route: IV, Dosing Weight 86.39 kg, Total Volume: 500 mL, Start date: 07/21/15 3:49:00, Duration: 30 day, Stop date: 08/20/15 3:48:00 No Longer Active 07/21/2015 [facility] Heparin 40 unit/kg Bolus (Heparin Dosing Weight) Route: IVP, PRN, 3,500 unit, 3.5 mL, Drug form: INJ, PRN, Heparin Protocol, Start date: 07/21/15 3:49:00 Stop date: 08/20/15 3:48:00, 30 day No Longer Active 07/21/2015 [facility] Heparin 80 unit/kg Bolus (Heparin Dosing Weight) Route: IVP, PRN, 6,900 unit, 6.9 mL, Drug form: INJ, PRN, Heparin Protocol, Start date: 07/21/15 3:49:00 Stop date: 08/20/15 3:48:00, 30 day No Longer Active 07/21/2015 [facility] tramadol hydrochloride 50 MG Oral Tablet 50 mg, 1 tab, Route: PO, Drug form: TAB, Q6H, Dosing Weight 99.574, kg, PRN Pain Score 6-10, Start date: 07/21/15 3:33:00, Duration: 30 day, Stop date: 08/20/15 3:32:00Notes: Not to exceed 400mg/day. (Same As: Ultram) No Longer Active 07/21/2015 [facility] Artificial Tears 2 drp, Route: BOTH EYES, PRN, Drug form: SOLN, PRN as needed for dry eyes, Start date: 07/21/15 3:33:00 CDT, Duration: 30 day, Stop date: 09/19/15 3:32:00 CDT No Longer Active 07/21/2015 [facility] Nitroglycerin 0.4 MG Sublingual Tablet 0.4 mg, 1 tab, Route: SL, Drug form: TAB, Q5Min, Dosing Weight 99.574, kg, PRN Chest Pain, Start date: 07/21/15 3:33:00 CDT, Duration: 30 day, Stop date: 09/19/15 3:32:00 CDTNotes: (Same as:Nitroquick, Nitrostat) "Do Not Crush" Sublingual tablet No Longer Active 07/21/2015 [facility] Clonazepam 0.5 mg, 1 tab, Route: PO, Drug form: TAB, Q6H, Dosing Weight 99.574, kg, PRN Anxiety, Start date: 07/21/15 3:33:00, Duration: 30 day, Stop date: 08/20/15 3:32:00Notes: (Same As: KlonoPIN) No Longer Active 07/21/2015 [facility] Tylenol PO, Q6H, PRN Pain Score 1-5, 0 Refill(s) No Longer Active 07/21/2015 [facility] Hydrocortisone-Aloe 0.5% topical cream 1 appl, TOP, BID, # 30 gm, 0 Refill(s) No Longer Active 07/21/2015 [facility] Aspirin 81 mg, PO, Daily, 0 Refill(s) Active 07/21/2015 [facility] 24 HR Nicotine 0.875 MG/HR Transdermal Patch =1 patch, Transdermal, Daily, 0 Refill(s) No Longer Active 07/21/2015 [facility] Clonidine Hydrochloride 0.1 MG Oral Tablet 0.1 mg=1 tab, PO, QID, 0 Refill(s) No Longer Active 07/21/2015 [facility] clonazePAM 0.5 mg oral tablet 0.5 mg=1 tab, PO, PRN, Prn anxiety q 6 hrs, 0 Refill(s) No Longer Active 07/21/2015 [facility] mirtazapine 15 mg oral tablet 15 mg=1 tab, PO, Bedtime, # 30 tab, 0 Refill(s) No Longer Active 07/21/2015 [facility] Alprazolam 0.25 MG Oral Tablet 0.25 mg=1 tab, PO, BID, PRN anxiety, stress, # 20 tab, 0 Refill(s) No Longer Active 07/21/2015 [facility] tramadol hydrochloride 50 MG Oral Tablet 50 mg=1 tab, PO, Q6H, PRN Pain, PRN for pain q 6 hrs, 0 Refill(s) No Longer Active 07/21/2015 [facility] Nitroglycerin 0.4 MG Sublingual Tablet 0.4 mg=1 tab, SL, Q5Min, PRN Chest Pain, Give up to 3 doses. Call 911 if pain persists., # 25 tab, 3 Refill(s) No Longer Active 07/21/2015 [facility] Artificial Tears BOTH EYES, PRN, 1 drop each eye q 4 hours, 0 Refill(s) No Longer Active 07/21/2015 [facility] Allergies, Adverse Reactions, Alerts Substance Category Reaction Severity Reaction type Status Date Reported Comments Source Immunizations Immunization Date Given Site Status Last Updated Comments Source Results Order Name Results Value Reference Range Date Interpretation Comments Source HEMATOLOGY PT 14.0 s 12.0 - 14.7 11/29/2015 [facility] HEMATOLOGY INR 1.05 0.85 - 1.17 11/29/2015 [facility] LIPIDS CHD Risk 3.28 4.00 - 7.30 11/29/2015 [facility] LIPIDS Chol 210 mg/dL <=199 mg/dL 11/29/2015 [facility] LIPIDS Trig 69 mg/dL <=149 mg/dL 11/29/2015 [facility] LIPIDS HDL 64 mg/dL >=61 mg/dL 11/29/2015 [facility] LIPIDS VLDL 14 11/29/2015 [facility] LIPIDS LDL (Calculated) 132 mg/dL <=99 mg/dL 11/29/2015 [facility] CARDIAC ENZYMES Troponin-I null 0.00 - 0.40 11/29/2015 [facility] CARDIAC ENZYMES Total CK 48 unit/L 12 - 191 11/29/2015 [facility] CARDIAC ENZYMES Troponin-I null 0.00 - 0.40 2015 [facility] CARDIAC ENZYMES Total CK 50 unit/L 12 - 191 2015 [facility] Chest CTA Chest CTA Patient Name: ALETHA LOWERY : 1955; Age: 59 years Male MR: [id number] Study: Chest CTA 2015 3:09 PM CDT [...] JTHOLANY-PC 2015 - - Read by: Mikhail Kutrz MD Dictated Date/time: 11/28/15 18:01 Electronically Signed by: Mikhail Kurtz MD 11/28/15 18:09 FINAL REPORT [facility] CARDIAC ENZYMES CK MB Index 4.7 0.0 - 2.5 2015 [facility] CARDIAC ENZYMES BNP 92 pg/mL <=100 pg/mL 2015 [facility] CARDIAC ENZYMES Troponin-I null 0.00 - 0.40 2015 [facility] CARDIAC ENZYMES CK MB 2.7 ng/mL 0.5 - 3.6 2015 [facility] CARDIAC ENZYMES Total CK 57 unit/L 12 - 191 2015 [facility] CHEM PANEL eGFR 96 mL/min/1.73m2 2015 [...] should be multiplied by the estimated BMI. [facility] CHEM PANEL ALT 26 unit/L 0 - 65 2015 [facility] CHEM PANEL Albumin Lvl 3.7 g/dL 3.5 - 5.0 2015 [facility] CHEM PANEL AST 16 unit/L 0 - 37 2015 [facility] CHEM PANEL Calcium Lvl 8.6 mg/dL 8.5 - 10.5 2015 [facility] CHEM PANEL Total Protein 7.2 g/dL 6.4 - 8.4 2015 [facility] CHEM PANEL AGAP 10.0 meq/L 10.0 - 20.0 2015 [facility] CHEM PANEL Alk Phos 64 unit/L [...] BUN 11 mg/dL 7 - 22 2015 [facility] CHEM PANEL Glucose Lvl 86 mg/dL 70 - 99 2015 [facility] CHEM PANEL Creatinine Lvl 0.86 mg/dL 0.50 - 1.40 2015 [facility] HEMATOLOGY Segs-Bands # 7.8 K/CMM 1.5 - 8.1 2015 [facility] HEMATOLOGY Basophils 0.9 % 0.0 - 1.0 2015 [facility] HEMATOLOGY Basophils # 0.1 K/CMM 0.0 - 0.2 2015 [facility] HEMATOLOGY Segs 67.3 % 45.0 - 75.0 2015 [facility] HEMATOLOGY Monocytes # 0.7 K/CMM 0.0 - 0.8 2015 [facility] HEMATOLOGY Lymphocytes # 3.0 K/CMM 1.0 - 5.5 2015 [facility] HEMATOLOGY Eosinophils 0.2 % 0.0 - 4.0 2015 [facility] HEMATOLOGY Lymphocytes 25.5 % 20.0 - 40.0 2015 [facility] HEMATOLOGY Monocytes 6.1 % 2.0 - 12.0 2015 [facility] HEMATOLOGY RBC 5.08 M/CMM 4.70 - 6.10 2015 [facility] HEMATOLOGY WBC 11.6 K/CMM 3.7 - 10.4 2015 [facility] HEMATOLOGY MPV 7.4 fL 7.4 - 10.4 2015 [facility] Hct 43.6 % 42.0 - 54.0 2015 [facility] Hgb 14.0 g/dL 14.0 - 18.0 2015 [facility] MCV 85.7 fL 80.0 - 94.0 2015 [facility] MCH 27.5 pg 27.0 - 31.0 2015 [facility] RDW 15.0 % 11.5 - 14.5 2015 [facility] Platelet 244 K/CMM 133 - 450 2015 [facility] MCHC 32.1 g/dL 32.0 - 36.0 2015 [facility] Chest 1view DX Chest 1view DX Study: Chest 1view DX Clinical Indication: Dyspnea Comparison: Chest x-ray from 08/21/2015 FINDINGS: Left sided dual-chamber pacemaker is stable. Cardiac silhouette is normal in size. Small right pleural effusion is seen. There is no pneumothorax. The osseous structures are unremarkable. IMPRESSION: Small right pleural effusion SL: [id number] 2015 - - Read by: Ivan Lugo MD Dictated Date/time: 11/28/15 11:17 Electronically Signed by: Ivan Lugo MD 11/28/15 11:18 FINAL REPORT [facility] ELECTROLYTES AGAP 14.0 meq/L 10.0 - 20.0 08/22/2015 [facility] ELECTROLYTES Calcium Lvl 8.3 mg/dL 8.5 - 10.5 08/22/2015 [facility] ELECTROLYTES CO2 26 meq/L 24 - 32 08/22/2015 [facility] ELECTROLYTES eGFR 104 mL/min/1.73m2 08/22/2015 Result [...] should be multiplied by the estimated BMI. [facility] ELECTROLYTES Chloride Lvl 107 meq/L 95 - 109 08/22/2015 [facility] ELECTROLYTES Potassium Lvl 4.0 meq/L 3.5 - 5.1 08/22/2015 [facility] ELECTROLYTES Glucose Lvl 84 mg/dL 70 - 99 08/22/2015 [facility] ELECTROLYTES Sodium Lvl 143 meq/L 135 - 145 08/22/2015 [facility] ELECTROLYTES BUN 11 mg/dL 7 - 22 08/22/2015 [facility] ELECTROLYTES Creatinine Lvl 0.71 mg/dL 0.50 - 1.40 08/22/2015 [facility] HEMATOLOGY Basophils # 0.0 K/CMM 0.0 - 0.2 08/22/2015 [facility] HEMATOLOGY Eosinophils 1.2 % 0.0 - 4.0 08/22/2015 [facility] HEMATOLOGY Monocytes 9.5 % 2.0 - 12.0 08/22/2015 [facility] HEMATOLOGY Monocytes # 0.6 K/CMM 0.0 - 0.8 08/22/2015 [facility] HEMATOLOGY Segs 59.2 % 45.0 - 75.0 08/22/2015 [facility] HEMATOLOGY Lymphocytes 29.8 % 20.0 - 40.0 08/22/2015 [facility] HEMATOLOGY Basophils 0.3 % 0.0 - 1.0 08/22/2015 [facility] HEMATOLOGY Segs-Bands # 3.8 K/CMM 1.5 - 8.1 08/22/2015 [facility] HEMATOLOGY Eosinophils # 0.1 K/CMM 0.0 - 0.5 08/22/2015 [facility] HEMATOLOGY Lymphocytes # 1.9 K/CMM 1.0 - 5.5 08/22/2015 [facility] HEMATOLOGY RBC 4.51 M/CMM 4.70 - 6.10 08/22/2015 [facility] HEMATOLOGY WBC 6.5 K/CMM 3.7 - 10.4 08/22/2015 [facility] HEMATOLOGY MCV 87.9 fL 80.0 - 94.0 08/22/2015 [facility] HEMATOLOGY Hct 39.6 % 42.0 - 54.0 08/22/2015 [facility] HEMATOLOGY Hgb 12.7 g/dL 14.0 - 18.0 08/22/2015 [facility] HEMATOLOGY MCHC 32.1 g/dL 32.0 - 36.0 08/22/2015 [facility] HEMATOLOGY MCH 28.2 pg 27.0 - 31.0 08/22/2015 [facility] HEMATOLOGY MPV 8.1 fL 7.4 - 10.4 08/22/2015 [facility] HEMATOLOGY Platelet 161 K/CMM 133 - 450 08/22/2015 [facility] HEMATOLOGY RDW 16.3 % 11.5 - 14.5 08/22/2015 [facility] Chest 1view DX Chest 1view DX Patient Name: ALETHA LOWERY. : 1955; Age: 59 years y/o; Male. MR: [id number]. Ordering Physician: Jocy Bailon MD. PORTABLE CHEST [...] Noe Deras MD 08/21/15 18:21 FINAL REPORT [facility] Knee 1-2 Views Bilateral DX Knee [...] Raulito Arthur MD 08/20/15 16:05 FINAL REPORT [facility] Brain wo contrast CT Brain wo contrast CT Patient Name: ALETHA LOWERY : 1955; Age: 59 years; Gender: Male MR: [id number] Ordering Physician: Piter Leslie MD PROCEDURE: CT head without contrast INDICATION: Pain Post Trauma. Fall with trauma to the frontal area. Patient is on blood thinners. TECHNIQUE: CT images were obtained from the foramen magnum to the vertex without the use of intravenous contrast on a multidetector CT. Total CT radiation dose: COM=[id number] mGy-cm COMPARISON: None. FINDINGS: No evidence for [...] 3. Possible mild right maxillary sinusitis. SL: [id number] 08/20/2015 - - Read by: Colin Howard MD Dictated Date/time: 08/20/15 15:44 Electronically Signed by: Colin Howard MD 08/20/15 15:47 FINAL REPORT [facility] CARDIAC ENZYMES Troponin-I null 0.00 - 0.40 08/19/2015 [facility] CARDIAC ENZYMES Total CK 54 unit/L 12 - 191 08/19/2015 [facility] CARDIAC ENZYMES Troponin-I null 0.00 - 0.40 08/18/2015 [facility] CARDIAC ENZYMES Total CK 30 unit/L 12 - 191 08/18/2015 [facility] CARDIAC ENZYMES Troponin-I null 0.00 - 0.40 08/18/2015 [facility] HEMATOLOGY PT 24.6 s 12.0 - 14.7 08/18/2015 [facility] HEMATOLOGY INR 2.18 0.85 - 1.17 08/18/2015 [facility] BACTERIAL - SEROLOGY MRSA by PCR Negative (08/18/15 1:44 PM) 08/18/2015 [facility] CARDIAC ENZYMES CK MB Index 3.2 0.0 - 2.5 08/18/2015 [facility] CARDIAC ENZYMES CK MB 2.0 ng/mL 0.5 - 3.6 08/18/2015 [facility] CARDIAC ENZYMES Total CK 62 unit/L 12 - 191 08/18/2015 [facility] CHEM PANEL Lipase Lvl 114 unit/L 73 - 393 08/18/2015 [facility] CHEM PANEL eGFR 97 mL/min/1.73m2 08/18/2015 [...] should be multiplied by the estimated BMI. [facility] CHEM PANEL AGAP 14.6 meq/L 10.0 - 20.0 08/18/2015 [facility] CHEM PANEL CO2 23 meq/L 24 - 32 08/18/2015 [facility] CHEM PANEL Calcium Lvl 8.7 mg/dL 8.5 - 10.5 08/18/2015 [facility] CHEM PANEL Globulin 3.6 g/dL 2.0 - 4.0 08/18/2015 [facility] CHEM PANEL Total Protein 6.7 g/dL 6.4 - 8.4 08/18/2015 [facility] CHEM PANEL Albumin Lvl 3.1 g/dL 3.5 - 5.0 08/18/2015 [facility] CHEM PANEL AST 21 unit/L 0 - 37 08/18/2015 [facility] CHEM PANEL ALT 36 unit/L 0 - 65 08/18/2015 [facility] CHEM PANEL B/C Ratio 25 6 - 25 08/18/2015 [facility] CHEM PANEL Bili Total 0.4 mg/dL 0.2 - 1.3 08/18/2015 [facility] CHEM PANEL A/G Ratio 0.9 0.7 - 1.6 08/18/2015 [facility] CHEM PANEL Alk Phos 64 unit/L 39 - 136 08/18/2015 [facility] CHEM PANEL Glucose Lvl 85 mg/dL 70 - 99 08/18/2015 [facility] CHEM PANEL BUN 21 mg/dL 7 - 22 08/18/2015 [facility] CHEM PANEL Creatinine Lvl 0.83 mg/dL 0.50 - 1.40 08/18/2015 [facility] CHEM PANEL Potassium Lvl 4.6 meq/L 3.5 - 5.1 08/18/2015 [facility] CHEM PANEL Sodium Lvl 140 meq/L 135 - 145 08/18/2015 [facility] CHEM PANEL Chloride Lvl 107 meq/L 95 - 109 08/18/2015 [facility] HEMATOLOGY Basophils # 0.1 K/CMM 0.0 - 0.2 08/18/2015 [facility] HEMATOLOGY Eosinophils # 0.1 K/CMM 0.0 - 0.5 08/18/2015 [facility] HEMATOLOGY Monocytes # 1.0 K/CMM 0.0 - 0.8 08/18/2015 [facility] HEMATOLOGY Lymphocytes # 2.4 K/CMM 1.0 - 5.5 08/18/2015 [facility] HEMATOLOGY Eosinophils 0.5 % 0.0 - 4.0 08/18/2015 [facility] HEMATOLOGY Monocytes 7.3 % 2.0 - 12.0 08/18/2015 [facility] HEMATOLOGY Segs-Bands # 10.0 K/CMM 1.5 - 8.1 08/18/2015 [facility] HEMATOLOGY Basophils 0.4 % 0.0 - 1.0 08/18/2015 [facility] HEMATOLOGY Lymphocytes 18.0 % 20.0 - 40.0 08/18/2015 [facility] HEMATOLOGY Segs 73.8 % 45.0 - 75.0 08/18/2015 [facility] HEMATOLOGY Plt Morph Normal (4/15/16 9:22 AM) 08/18/2015 [facility] RBC Morph Normal (08/18/15 9:22 AM) 08/18/2015 [facility] HEMATOLOGY Platelet 207 K/CMM 133 - 450 08/18/2015 Result Comment: Reviewed. [facility] RBC 4.79 M/CMM 4.70 - 6.10 08/18/2015 [facility] WBC 13.5 K/CMM 3.7 - 10.4 08/18/2015 [facility] HEMATOLOGY Hgb 13.7 g/dL 14.0 - 18.0 08/18/2015 [facility] Hct 42.1 % 42.0 - 54.0 08/18/2015 [facility] HEMATOLOGY RDW 16.1 % 11.5 - 14.5 08/18/2015 [facility] HEMATOLOGY MPV 7.7 fL 7.4 - 10.4 08/18/2015 [facility] MCH 28.5 pg 27.0 - 31.0 08/18/2015 [facility] HEMATOLOGY MCV 87.9 fL 80.0 - 94.0 08/18/2015 [facility] MCHC 32.4 g/dL 32.0 - 36.0 08/18/2015 [facility] Chest 1view DX Chest 1view DX [...] and/or thickening. 3. Enlarged cardiac silhouette. SL: [id number] 08/18/2015 - - Read by: Bob Charles MD Dictated Date/time: 08/18/15 09:14 Electronically Signed by: Bob Charles MD 08/18/15 09:16 FINAL REPORT [facility] ELECTROLYTES AGAP 11.7 meq/L 10.0 - 20.0 08/17/2015 [facility] ELECTROLYTES eGFR 112 mL/min/1.73m2 08/17/2015 Result Comment: [...] should be multiplied by the estimated BMI. [facility] ELECTROLYTES Calcium Lvl 7.1 mg/dL 8.5 - 10.5 08/17/2015 [facility] ELECTROLYTES Creatinine Lvl 0.58 mg/dL 0.50 - 1.40 08/17/2015 [facility] ELECTROLYTES Sodium Lvl 146 meq/L 135 - 145 08/17/2015 [facility] ELECTROLYTES BUN 13 mg/dL 7 - 22 08/17/2015 [facility] ELECTROLYTES Glucose Lvl 78 mg/dL 70 - 99 08/17/2015 [facility] ELECTROLYTES Chloride Lvl 115 meq/L 95 - 109 08/17/2015 [facility] ELECTROLYTES CO2 23 meq/L 24 - 32 08/17/2015 [facility] ELECTROLYTES Potassium Lvl 3.7 meq/L 3.5 - 5.1 08/17/2015 [facility] HEMATOLOGY MCH 28.8 pg 27.0 - 31.0 08/17/2015 [facility] HEMATOLOGY Hct 36.5 % 42.0 - 54.0 08/17/2015 [facility] HEMATOLOGY MCV 88.6 fL 80.0 - 94.0 08/17/2015 [facility] HEMATOLOGY Hgb 11.8 g/dL 14.0 - 18.0 08/17/2015 [facility] HEMATOLOGY Platelet 149 K/CMM 133 - 450 08/17/2015 [facility] HEMATOLOGY MCHC 32.5 g/dL 32.0 - 36.0 08/17/2015 [facility] HEMATOLOGY RDW 15.4 % 11.5 - 14.5 08/17/2015 [facility] HEMATOLOGY MPV 7.2 fL 7.4 - 10.4 08/17/2015 [facility] HEMATOLOGY WBC 8.5 K/CMM 3.7 - 10.4 08/17/2015 [facility] HEMATOLOGY RBC 4.12 M/CMM 4.70 - 6.10 08/17/2015 [facility] HEMATOLOGY Monocytes 7.1 % 2.0 - 12.0 08/17/2015 [facility] HEMATOLOGY Basophils 0.4 % 0.0 - 1.0 08/17/2015 [facility] HEMATOLOGY Segs-Bands # 5.8 K/CMM 1.5 - 8.1 08/17/2015 [facility] HEMATOLOGY Eosinophils 0.5 % 0.0 - 4.0 08/17/2015 [facility] HEMATOLOGY Lymphocytes 23.4 % 20.0 - 40.0 08/17/2015 [facility] HEMATOLOGY Segs 68.6 % 45.0 - 75.0 08/17/2015 [facility] HEMATOLOGY Lymphocytes # 2.0 K/CMM 1.0 - 5.5 08/17/2015 [facility] HEMATOLOGY Monocytes # 0.6 K/CMM 0.0 - 0.8 08/17/2015 [facility] HEMATOLOGY INR 2.09 0.85 - 1.17 08/17/2015 [facility] HEMATOLOGY PT 23.8 s 12.0 - 14.7 08/17/2015 [facility] HEMATOLOGY INR 1.84 0.85 - 1.17 08/16/2015 [facility] HEMATOLOGY PT 21.6 s 12.0 - 14.7 08/16/2015 [facility] HEMATOLOGY INR 2.24 0.85 - 1.17 08/15/2015 [facility] HEMATOLOGY PT 25.1 s 12.0 - 14.7 08/15/2015 [facility] ELECTROLYTES Potassium Lvl 4.2 meq/L 3.5 - 5.1 08/14/2015 [facility] ELECTROLYTES Chloride Lvl 107 meq/L 95 - 109 08/14/2015 [facility] ELECTROLYTES Creatinine Lvl 0.93 mg/dL 0.50 - 1.40 08/14/2015 [facility] ELECTROLYTES Sodium Lvl 140 meq/L 135 - 145 08/14/2015 [facility] ELECTROLYTES BUN 27 mg/dL 7 - 22 08/14/2015 [facility] ELECTROLYTES Calcium Lvl 8.5 mg/dL 8.5 - 10.5 08/14/2015 [facility] ELECTROLYTES CO2 26 meq/L 24 - 32 08/14/2015 [facility] ELECTROLYTES eGFR 91 mL/min/1.73m2 08/14/2015 Result Comment: [...] should be multiplied by the estimated BMI. [facility] ELECTROLYTES Glucose Lvl 84 mg/dL 70 - 99 08/14/2015 [facility] ELECTROLYTES AGAP 11.2 meq/L 10.0 - 20.0 08/14/2015 [facility] CHEM PANEL Magnesium Lvl 2.2 mg/dL 1.8 - 2.4 08/10/2015 [facility] CHEM PANEL eGFR 102 mL/min/1.73m2 08/10/2015 Result [...] should be multiplied by the estimated BMI. [facility] CHEM PANEL Calcium Lvl 8.8 mg/dL 8.5 - 10.5 08/10/2015 [facility] CHEM PANEL CO2 28 meq/L 24 - 32 08/10/2015 [facility] CHEM PANEL Chloride Lvl 106 meq/L 95 - 109 08/10/2015 [facility] CHEM PANEL Potassium Lvl 4.2 meq/L 3.5 - 5.1 08/10/2015 [facility] CHEM PANEL Sodium Lvl 140 meq/L 135 - 145 08/10/2015 [facility] CHEM PANEL BUN 20 mg/dL 7 - 22 08/10/2015 [facility] CHEM PANEL Creatinine Lvl 0.74 mg/dL 0.50 - 1.40 08/10/2015 [facility] CHEM PANEL Glucose Lvl 78 mg/dL 70 - 99 08/10/2015 [facility] CHEM PANEL AGAP 10.2 meq/L 10.0 - 20.0 08/10/2015 [facility] CHEM PANEL Phosphorus 3.7 mg/dL 2.5 - 4.5 08/10/2015 [facility] HEMATOLOGY RBC Morph Normal (08/10/15 5:29 AM) 08/10/2015 [facility] HEMATOLOGY Plt Morph Normal (08/10/15 5:29 AM) 08/10/2015 [facility] HEMATOLOGY Atypical Lymphs 0.0 % <=0.0 % 08/10/2015 [facility] HEMATOLOGY Myelocytes 1.0 % <=0.0 % 08/10/2015 [facility] HEMATOLOGY Metamyelocytes 1.0 % 0.0 - 1.0 08/10/2015 [facility] HEMATOLOGY Lymphocytes 24.0 % 20.0 - 40.0 08/10/2015 [facility] HEMATOLOGY Monocytes 6.0 % 2.0 - 12.0 08/10/2015 [facility] HEMATOLOGY Segs-Bands # 8.4 K/CMM 1.5 - 8.1 08/10/2015 [facility] HEMATOLOGY Bands 1.0 % 0.0 - 11.0 08/10/2015 [facility] HEMATOLOGY Monocytes # 0.7 K/CMM 0.0 - 0.8 08/10/2015 [facility] HEMATOLOGY Lymphocytes # 3.0 K/CMM 1.0 - 5.5 08/10/2015 [facility] HEMATOLOGY Segs 67.0 % 45.0 - 75.0 08/10/2015 [facility] HEMATOLOGY WBC 12.3 K/CMM 3.7 - 10.4 08/10/2015 [facility] HEMATOLOGY RBC 4.82 M/CMM 4.70 - 6.10 08/10/2015 [facility] HEMATOLOGY Hgb 13.6 g/dL 14.0 - 18.0 08/10/2015 [facility] HEMATOLOGY MCH 28.3 pg 27.0 - 31.0 08/10/2015 [facility] HEMATOLOGY Platelet 227 K/CMM 133 - 450 08/10/2015 [facility] HEMATOLOGY MCHC 32.4 g/dL 32.0 - 36.0 08/10/2015 [facility] HEMATOLOGY RDW 15.3 % 11.5 - 14.5 08/10/2015 [facility] HEMATOLOGY MCV 87.2 fL 80.0 - 94.0 08/10/2015 [facility] HEMATOLOGY Hct 42.0 % 42.0 - 54.0 08/10/2015 [facility] HEMATOLOGY MPV 7.2 fL 7.4 - 10.4 08/10/2015 [facility] CHEM PANEL Magnesium Lvl 2.1 mg/dL 1.8 - 2.4 08/09/2015 [facility] CHEM PANEL Phosphorus 3.9 mg/dL 2.5 - 4.5 08/09/2015 [facility] HEMATOLOGY Myelocytes 1.0 % <=0.0 % 08/09/2015 [facility] HEMATOLOGY RBC Morph Normal (08/09/15 4:34 AM) 08/09/2015 [facility] HEMATOLOGY Atypical Lymphs 1.0 % <=0.0 % 08/09/2015 [facility] HEMATOLOGY Monocytes # 0.4 K/CMM 0.0 - 0.8 08/09/2015 [facility] HEMATOLOGY Segs-Bands # 7.7 K/CMM 1.5 - 8.1 08/09/2015 [facility] HEMATOLOGY Lymphocytes # 2.8 K/CMM 1.0 - 5.5 08/09/2015 [facility] HEMATOLOGY Plt Morph Normal (08/09/15 4:34 AM) 08/09/2015 [facility] HEMATOLOGY Lymphocytes 24.0 % 20.0 - 40.0 08/09/2015 [facility] HEMATOLOGY Monocytes 4.0 % 2.0 - 12.0 08/09/2015 [facility] HEMATOLOGY Segs 65.0 % 45.0 - 75.0 08/09/2015 [facility] HEMATOLOGY Bands 4.0 % 0.0 - 11.0 08/09/2015 [facility] HEMATOLOGY Metamyelocytes 1.0 % 0.0 - 1.0 08/09/2015 [facility] HEMATOLOGY MCV 88.1 fL 80.0 - 94.0 08/09/2015 [facility] HEMATOLOGY MCHC 32.6 g/dL 32.0 - 36.0 08/09/2015 [facility] HEMATOLOGY MCH 28.7 pg 27.0 - 31.0 08/09/2015 [facility] HEMATOLOGY Hct 42.6 % 42.0 - 54.0 08/09/2015 [facility] HEMATOLOGY Hgb 13.9 g/dL 14.0 - 18.0 08/09/2015 [facility] HEMATOLOGY MPV 7.4 fL 7.4 - 10.4 08/09/2015 [facility] HEMATOLOGY RDW 15.4 % 11.5 - 14.5 08/09/2015 [facility] HEMATOLOGY Platelet 205 K/CMM 133 - 450 08/09/2015 [facility] HEMATOLOGY RBC 4.83 M/CMM 4.70 - 6.10 08/09/2015 [facility] HEMATOLOGY WBC 11.1 K/CMM 3.7 - 10.4 08/09/2015 [facility] CHEM PANEL Magnesium Lvl 2.2 mg/dL 1.8 - 2.4 08/08/2015 [facility] CHEM PANEL Phosphorus 4.1 mg/dL 2.5 - 4.5 08/08/2015 [facility] HEMATOLOGY Eosinophils # 0.2 K/CMM 0.0 - 0.5 08/08/2015 [facility] HEMATOLOGY Basophils # 0.1 K/CMM 0.0 - 0.2 08/08/2015 [facility] HEMATOLOGY Plt Morph Normal (08/08/15 3:55 AM) 08/08/2015 [facility] HEMATOLOGY RBC Morph Normal (08/08/15 3:55 AM) 08/08/2015 [facility] HEMATOLOGY Basophils 0.5 % 0.0 - 1.0 08/08/2015 [facility] HEMATOLOGY Eosinophils 1.2 % 0.0 - 4.0 08/08/2015 [facility] HEMATOLOGY Basophils 0.7 % 0.0 - 1.0 08/07/2015 [facility] HEMATOLOGY Eosinophils 0.4 % 0.0 - 4.0 08/07/2015 [facility] HEMATOLOGY Basophils # 0.1 K/CMM 0.0 - 0.2 08/07/2015 [facility] HEMATOLOGY PTT 69.5 s 22.9 - 35.8 08/06/2015 [facility] Chest 1view DX Chest 1view DX EXAM: [...] Sara Ritter MD 08/06/15 09:53 FINAL REPORT [facility] HEMATOLOGY Toxic Gran See Note 1 (08/06/15 3:33 AM) None Seen 08/06/2015 Result Comment: Slight [facility] HEMATOLOGY Atypical Lymphs 0.0 % <=0.0 % 08/06/2015 [facility] HEMATOLOGY Bands 1.0 % 0.0 - 11.0 08/06/2015 [facility] HEMATOLOGY PTT 64.0 s 22.9 - 35.8 08/05/2015 [facility] HEMATOLOGY Toxic Gran slight 08/05/2015 [facility] HEMATOLOGY PTT 68.9 s 22.9 - 35.8 08/05/2015 [facility] Chest 1view DX Chest 1view DX EXAM: [...] by: Ángel Sue 08/02/15 13:46 FINAL REPORT [facility] HEMATOLOGY Anisocyte 1+ *ABN* (07/31/15 10:41 AM) None Seen 07/31/2015 [facility] HEMATOLOGY Basophils # 0.2 K/CMM 0.0 - 0.2 07/31/2015 [facility] Chest 1view DX Chest 1view DX EXAM: [...] by: Ángel Sue 07/31/15 09:00 FINAL REPORT [facility] CHEM PANEL Lactic Acid Lvl 1.0 mMol/L 0.5 - 2.2 07/30/2015 [facility] HVI VAS Venous Lower Ext Bilat Doppler [...] - This report was dictated by a Mold Operator/Fellow. I have personally reviewed the images as well as the Resident's interpretation and agree with the findings. Read by: Arianna Lala MD Resident: Arianna Lala MD Dictated Date/time: 07/30/15 19:12 Electronically Signed by: Skinny Riley MD 07/31/15 08:30 FINAL REPORT [facility] Chest 1view DX Chest 1view DX EXAM: [...] by: Ángel Sue 07/29/15 11:59 FINAL REPORT [facility] HEMATOLOGY POC Activated Clotting Time 206 s 07/28/2015 [facility] HEMATOLOGY Eosinophils # 0.1 K/CMM 0.0 - 0.5 07/28/2015 [facility] HEMATOLOGY Eosinophils # 0.1 K/CMM 0.0 - 0.5 07/27/2015 [facility] LIPIDS HDL 45 mg/dL >=61 mg/dL 07/25/2015 [facility] LIPIDS Chol 162 mg/dL <=199 mg/dL 07/25/2015 [facility] LIPIDS Trig 74 mg/dL <=149 mg/dL 07/25/2015 [facility] LIPIDS VLDL 15 07/25/2015 [facility] LIPIDS LDL (Calculated) 102 mg/dL <=99 mg/dL 07/25/2015 [facility] LIPIDS CHD Risk 3.60 4.00 - 7.30 07/25/2015 [facility] CARDIAC ENZYMES Troponin-I 0.09 ng/mL 0.00 - 0.40 07/21/2015 [facility] CARDIAC ENZYMES Troponin-T 0.035 ng/mL 0.000 - 0.100 07/21/2015 [facility] CARDIAC ENZYMES Total CK 36 unit/L 12 - 191 07/21/2015 [facility] HVI VAS Arterial Extracranial Doppler Bi HVI [...] - This report was dictated by a Mold Operator/Fellow. I have personally reviewed the images as well as the Resident's interpretation and agree with the findings. Read by: Dexter Redd (Fellow) Resident: Dexter Redd (Fellow) Dictated Date/time: 07/22/15 12:00 Electronically Signed by: Skinny Riley MD 07/25/15 07:27 FINAL REPORT [facility] CARDIAC ENZYMES Troponin-I 0.10 ng/mL 0.00 - 0.40 07/21/2015 [facility] CARDIAC ENZYMES Total CK 32 unit/L 12 - 191 07/21/2015 [facility] CARDIAC ENZYMES BNP 158 pg/mL <=100 pg/mL 07/21/2015 [facility] CHEM PANEL A/G Ratio 0.9 0.7 - 1.6 07/21/2015 [facility] CHEM PANEL Bili Total 0.8 mg/dL 0.2 - 1.3 07/21/2015 [facility] CHEM PANEL Alk Phos 59 unit/L 39 - 136 07/21/2015 [facility] CHEM PANEL Globulin 3.3 g/dL 2.0 - 4.0 07/21/2015 [facility] CHEM PANEL B/C Ratio 14 6 - 25 07/21/2015 [facility] CHEM PANEL AST 6 unit/L 0 - 37 07/21/2015 [facility] CHEM PANEL ALT 15 unit/L 0 - 65 07/21/2015 [facility] CHEM PANEL Albumin Lvl 2.9 g/dL 3.5 - 5.0 07/21/2015 [facility] CHEM PANEL Total Protein 6.2 g/dL 6.4 - 8.4 07/21/2015 [facility] CHEM PANEL Amylase Lvl 46 unit/L 25 - 115 07/21/2015 [facility] CHEM PANEL Lipase Lvl 85 unit/L 73 - 393 07/21/2015 [facility] SPECIAL CHEMISTRY Hgb A1C 5.4 % <=5.6 % 07/21/2015 [facility] Chest 1view DX Chest 1view DX EXAM: [...] by: Saad Ferris 07/21/15 08:01 FINAL REPORT [facility] Vital Signs Vital Sign Value Date Comments Source Systolic (mm Hg) 109 12/02/2015 [facility] Diastolic (mm Hg) 76 12/02/2015 [facility] Respitory Rate 22 12/02/2015 [facility] Heart Rate 87 12/02/2015 [facility] Temperature Oral (F) 97.6 F 12/02/2015 [facility] Systolic (mm Hg) 122 12/02/2015 [facility] Diastolic (mm Hg) 82 12/02/2015 [facility] Heart Rate 74 12/02/2015 [facility] Temperature Oral (F) 97.3 F 12/02/2015 [facility] Respitory Rate 21 12/02/2015 [facility] Temperature Oral (F) 97.3 F 12/02/2015 [facility] Heart Rate 73 12/02/2015 [facility] Systolic (mm Hg) 104 12/02/2015 [facility] Diastolic (mm Hg) 67 12/02/2015 [facility] Respitory Rate 16 12/02/2015 [facility] Height 182.88 cm 2015 [facility] BMI Calculated 31.53 2015 [facility] Weight 105.455 2015 [facility] Weight 113.636 2015 [facility] Height 182.88 cm 2015 [facility] BMI Calculated 33.98 2015 [facility] Respitory Rate 20 08/23/2015 [facility] Heart Rate 83 08/23/2015 [facility] Temperature Oral (F) 97.4 F 08/23/2015 [facility] Systolic (mm Hg) 107 08/23/2015 [facility] Diastolic (mm Hg) 53 08/23/2015 [facility] Temperature Oral (F) 97.7 F 08/23/2015 [facility] Heart Rate 82 08/23/2015 [facility] Respitory Rate 20 08/23/2015 [facility] Systolic (mm Hg) 130 08/23/2015 [facility] Diastolic (mm Hg) 84 08/23/2015 [facility] Respitory Rate 20 08/23/2015 [facility] Temperature Oral (F) 97.3 F 08/23/2015 [facility] Systolic (mm Hg) 128 08/23/2015 [facility] Diastolic (mm Hg) 85 08/23/2015 [facility] Height 182.88 cm 08/18/2015 [facility] Weight 95 08/18/2015 [facility] BMI Calculated 28.4 08/18/2015 [facility] Heart Rate 83 08/18/2015 [facility] Systolic (mm Hg) 125 08/18/2015 [facility] Diastolic (mm Hg) 82 08/18/2015 [facility] Heart Rate 105 08/18/2015 [facility] Respitory Rate 18 08/18/2015 [facility] Temperature Oral (F) 97.9 F 08/18/2015 [facility] Heart Rate 83 08/18/2015 [facility] Respitory Rate 18 08/18/2015 [facility] Systolic (mm Hg) 91 08/18/2015 [facility] Diastolic (mm Hg) 67 08/18/2015 [facility] Temperature Oral (F) 97.7 F 08/17/2015 [facility] Systolic (mm Hg) 102 08/17/2015 [facility] Diastolic (mm Hg) 71 08/17/2015 [facility] Respitory Rate 18 08/17/2015 [facility] Heart Rate 81 08/17/2015 [facility] Temperature Oral (F) 97.7 F 08/17/2015 [facility] BMI Calculated 29.77 07/21/2015 [facility] Weight 99.574 07/21/2015 [facility] Height 182.88 cm 07/21/2015 [facility] Encounters Location Location Details Encounter Type Encounter Number Reason For Visit Attending Provider ADM Date DC Date Status Source [facility] Inpatient [id number] Arie Chung 07/21/2015 08/18/2015 [facility] OBS Observation Patient [id number] Elham Bryson 08/18/2015 08/23/[address] [facility] Inpatient [id number] Octavio Dc Jr 2015 12/02/2015 [facility] Procedures Procedure Code Date Perfomer Comments Source Insertion of cardiac pacemaker [id number] [facility]
[2018-09-11] MEDS ORDERED: METHYLPREDNISOLONE SOD SUCC 125 MG/2ML VIAL IV ONE (14:30)
[2018-09-11] MEDS ORDERED: ALBUTEROL SULF 0.083% NEB SOLN 3 ML NEB NEB ONE (14:30)
[2018-09-11] MEDS ORDERED: IPRATROPIUM BROMIDE 0.02% 2.5 ML NEB NEB ONE (14:30)
[2018-09-11] MEDS ORDERED: SODIUM CHLORIDE 0.9% 1000ML 1,000 ML IV STA ×2 (14:33→15:30)
[2018-09-11] MEDS ORDERED: VANCOMYCIN 1GM/NS 250 ML 250 ML IV ONE (15:23)
[2018-09-11 16:01] LABS: BASOPHILS % 0.1 % (0.0-1.0); EOSINOPHILS % 0.3 % (0.0-6.0); HEMATOCRIT 36.2 % (38.2-49.6); HEMOGLOBIN 11.1 g/dL (14.0-18.0); LYMPHOCYTES # (AUTO) 0.9 (1.0-3.2); LYMPHOCYTES % 7.1 % (18.0-39.1); MEAN CORPUSCULAR HGB CONC 30.7 g/dL (31-35); MEAN CORPUSCULAR VOLUME 88.1 fL (81-99); MONOCYTES # (AUTO) 0.5 (0.2-0.8); MONOCYTES % 3.9 % (4.4-11.3); NEUTROPHILS # (AUTO) 11.4 (2.1-6.9); NEUTROPHILS % 88.1 % (38.7-80.0); PLATELET COUNT 298 x10e3/uL (140-360); RED BLOOD COUNT 4.11 x10e6/uL (4.3-5.7); RED CELL DISTRIBUTION WIDTH 14.5 % (11.7-14.4)
[2018-09-11] MEDS: CEFEPIME 2 GM/NS 0.9% 100 ML 100 ML IV SCH (16:03)
--- NOTE | 2018-09-11 16:08 | Diagnostic Imaging Report ---
EXAM: CHEST SINGLE (PORTABLE) DATE: 09/11/2018 2:22 PM INDICATION: ^SOB, COPD ^[id number] ^[id number] COMPARISON: Chest x-ray, 06/03/2018; chest CT, 06/03/2018 FINDINGS: Lines and tubes: Stable appearance of implanted cardiac device on the left and transvenous lead positions. Again noted is a right IJ catheter. The catheter tip is not well visualized but likely extends to the upper SVC. The cardiac silhouette is upper limits of normal in size. No focal pulmonary opacity, pleural effusion or pneumothorax. Minimal atelectasis or scarring at the right lung base. Upper abdomen appears unremarkable. No acute bony abnormality. IMPRESSION: Borderline heart size with no pulmonary consolidation or pleural effusion. Signed by: Dr. Anthony Solorzano M.D. on 09/11/2018 4:05 PM
[2018-09-11 16:11] LABS: CLARITY,URINE CLEAR (CLEAR); COLOR,URINE COLORLESS (YELLOW); KETONES,URINE NEGATIVE (NEGATIVE); LEUKOCYTE ESTERASE ,URINE NEGATIVE (NEGATIVE); NITRITE,URINE NEGATIVE (NEGATIVE); PROTEIN,URINE DIPSTICK NEGATIVE (NEGATIVE)
[2018-09-11 16:12] LABS: BILIRUBIN,URINE NEGATIVE (NEGATIVE); URINE UROBILINOGEN 0.2 mg/dL (0.2 - 1)
[2018-09-11 16:17] LABS: INR 0.93
[2018-09-11 16:18] LABS: PARTIAL THROMBOPLASTIN TIME 26.5 seconds (23.8-35.5)
[2018-09-11 16:22] LABS: EPITHELIAL CELLS,URINE FEW /LPF; HYALINE CASTS 0-1 (0-1)
[2018-09-11 16:32] LABS: ALANINE AMINOTRANSFERASE 8 IU/L (0-55); ALBUMIN 3.2 g/dL (3.5-5.0); ALBUMIN/GLOBULIN RATIO 1.1 (0.8-2.0); ALKALINE PHOSPHATASE 69 IU/L (40-150); ANION GAP 11.1 mmol/L (8-16); BLOOD UREA NITROGEN 12 mg/dL (7-26); BUN/CREATININE RATIO 16 (6-25); CALCIUM 8.9 mg/dL (8.4-10.2); CARBON DIOXIDE 34 mmol/L (22-29); CHLORIDE 100 mmol/L (98-107); CREATINE KINASE 19 IU/L (30-200); CREATININE, SERUM 0.77 mg/dL (0.72-1.25); EST GLOMERULAR FILTRATION RATE > 60 ML/MIN (60-); GLUCOSE 97 mg/dL (74-118); POTASSIUM 4.1 mmol/L (3.5-5.1); SODIUM 141 mmol/L (136-145)
[2018-09-11] MEDS ORDERED: MORPHINE SULFATE 2 MG/ML SYR 1ML IV STA (17:05)
[2018-09-11] MEDS ORDERED: ONDANSETRON HCL INJ 2MG/ML 2ML 2 MG/ML VIAL IV ONE (17:05)
[2018-09-11] MEDS ORDERED: MORPHINE SULFATE INJ 4 MG/ML INJ 1ML IV ONE (17:15)
[2018-09-11] MEDS ORDERED: MORPHINE SULFATE 2 MG/ML SYR 1ML IV PRN (18:15)
[2018-09-11] MEDS ORDERED: SODIUM CHLORIDE 0.9% 1000ML 1,000 ML IV ONE (18:15)
--- NOTE | 2018-09-11 18:33 | Diagnostic Imaging Report ---
EXAM: CT Chest WITH contrast 09/11/2018 4:23 PM INDICATION: Shortness of breath. COMPARISON: 06/03/2018. TECHNIQUE: Chest was scanned utilizing a multidetector helical scanner from the lung apex through the level of the adrenal glands without administration of IV contrast. Coronal and sagittal reformations were obtained. Pulmonary embolism protocol was performed. IV CONTRAST: 100 cc Isovue-300 RADIATION DOSE: Total DLP: 1155.47 mGy*cm Estimated effective dose: (DLP x 0.014 x size factor) mSv COMPLICATIONS: None FINDINGS: Examination limited due to poor timing bolus, with images obtained on the aortic arterial phase of contrast enhancement LINES/ TUBES: None. Left-sided transvenous pacemaker with right atrial and right ventricle leads. LUNGS AND AIRWAYS: Allowing for limitations, no filling defects within them pulmonary arteries to the lobar level. Bilateral upper lobe paraseptal emphysematous changes, right greater than left. Biapical pleural-parenchymal scarring. Fibrotic changes in the posterior inferior right middle lobe, and right lung base with calcified granuloma in the right middle lobe posteriorly on image 44. Airways are normal. PLEURA: The pleural spaces are clear. HEART AND MEDIASTINUM: No mediastinal, hilar or axillary lymphadenopathy. The heart is normal in size.. There is no pericardial effusion. There are mild atherosclerotic calcifications in the aorta and coronary arteries. UPPER ABDOMEN: Limited non-contrast views of the upper abdomen show a 1.0 cm low-attenuation lesion in the anterior upper pole of the left kidney on image 65, indeterminate, but, most likely benign in etiology. BONES: Healed fractures of the posterior right fifth through eighth ribs. Compression fracture deformity of L1, increased since the prior exam. SOFT TISSUES: Unremarkable. IMPRESSION: 1. No evidence of pulmonary embolism within the limitations. 2. No change in appearance of the right lung suggestive of scarring. 3. Bilateral upper lobe emphysematous changes. Signed by: Dr. Dante Shine M.D. on 09/11/2018 6:30 PM
[2018-09-11] MEDS: FAMOTIDINE 20 MG/2 ML VIAL IV SCH (18:57)
[2018-09-11] MEDS ORDERED: IOPAMIDOL 370 MG/ML 200 ML INFUS..BTL INJ ONE (21:11)
[2018-09-11] MEDS ORDERED: SODIUM CHLORIDE 0.9% 50ML 50 ML ONE (21:11)
[2018-09-11 21:35] VITALS: BP 102/73
[2018-09-11 21:59] VITALS: BP 102/73
--- NOTE | 2018-09-11 22:13 | NUR ---
PATIENT RECEIVED FROM ER PER WHEELCHAIR AOX3, COMPLAINS OF NO DISTRESS OR PAIN. MULTIPLE BRUISES ON ARMS, CRACKLES AND WHEEZING IN LEFT POSTERIOR UPPER LOBE. BOTH SIDE RAILS ARE UP, BED LOW, CALL LIGHT WITHIN EASY REACH, WILL CONTINUE TO MONITOR.
[2018-09-12] VITALS (9 sets, daily range): BP systolic 80–130; BP diastolic 54–90
[2018-09-12] MEDS: MORPHINE SULFATE INJ 4 MG/ML INJ 1ML IV PRN ×6 (00:03→20:51)
[2018-09-12] MEDS: ONDANSETRON HCL INJ 2MG/ML 2ML 2 MG/ML VIAL IV PRN ×6 (00:03→20:51)
--- NOTE | 2018-09-12 01:07 | NUR ---
REASSESSED PATIENT'S BLOOD PRESSURE READING IS 91/57, HEART RATE 72. PATIENT HAS A HISTORY OF HYPOTENSION, NORMAL SALINE INFUSING AT 100 ML/HR. PATIENT CONDITION IS STABLE, NO RESPIRATORY DISTRESS OBSERVED AND HE DENIES PAIN.
[2018-09-12] MEDS ORDERED: SODIUM CHLORIDE 0.9% 50ML 50 ML ONE (03:22)
[2018-09-12] MEDS: CEFEPIME 2 GM/NS 0.9% 100 ML 100 ML IV SCH ×2 (03:47→15:30)
[2018-09-12 03:59] LABS: HEMATOCRIT 34.6 % (38.2-49.6); HEMOGLOBIN 10.6 g/dL (14.0-18.0); LYMPHOCYTES # (AUTO) 0.5 (1.0-3.2); LYMPHOCYTES % 7.8 % (18.0-39.1); MEAN CORPUSCULAR HEMOGLOBIN 27.3 pg (28-32); MEAN CORPUSCULAR HGB CONC 30.6 g/dL (31-35); MEAN CORPUSCULAR VOLUME 89.2 fL (81-99); MONOCYTES # (AUTO) 0.1 (0.2-0.8); MONOCYTES % 1.6 % (4.4-11.3); NEUTROPHILS # (AUTO) 6.2 (2.1-6.9); NEUTROPHILS % 90.2 % (38.7-80.0); PLATELET COUNT 281 x10e3/uL (140-360); RED BLOOD COUNT 3.88 x10e6/uL (4.3-5.7); RED CELL DISTRIBUTION WIDTH 14.5 % (11.7-14.4)
[2018-09-12 04:18] LABS: ALANINE AMINOTRANSFERASE 8 IU/L (0-55); ALBUMIN 2.9 g/dL (3.5-5.0); ALKALINE PHOSPHATASE 63 IU/L (40-150); ANION GAP 8.6 mmol/L (8-16); BLOOD UREA NITROGEN 14 mg/dL (7-26); BUN/CREATININE RATIO 19 (6-25); CALCIUM 8.5 mg/dL (8.4-10.2); CARBON DIOXIDE 33 mmol/L (22-29); CHLORIDE 103 mmol/L (98-107); CREATININE, SERUM 0.73 mg/dL (0.72-1.25); EST GLOMERULAR FILTRATION RATE > 60 ML/MIN (60-); GLUCOSE 124 mg/dL (74-118); POTASSIUM 4.6 mmol/L (3.5-5.1); SODIUM 140 mmol/L (136-145)
[2018-09-12 04:21] LABS: CREATINE KINASE 22 IU/L (30-200)
[2018-09-12] MEDS: FAMOTIDINE 20 MG/2 ML VIAL IV SCH ×2 (05:55→16:40)
--- NOTE | 2018-09-12 07:00 | NUR ---
bedside rounds complete, no distress noted updated on poc voiced understanding, denies pain at this time, o2 @ 2l nc no other co voiced call light in reach will continue ot monitor
[2018-09-12] MEDS ORDERED: ASPIRIN 81 MG ENTERIC COATED PO SCH (09:00)
[2018-09-12] MEDS ORDERED: ALBUTEROL/IPRATROPIUM 3 ML NEB NEB PRN (09:45)
[2018-09-12] MEDS: ALBUTEROL/IPRATROPIUM 3 ML NEB NEB SCH ×3 (09:58→19:15)
[2018-09-12] MEDS ORDERED: ALBUTEROL SULFATE HFA 8GM INHALATION AEROSOL INH PRN (12:00)
[2018-09-12] MEDS ORDERED: NITROGLYCERIN 0.4 MG SUBL SL SCH (12:00)
[2018-09-12 12:06] LABS: CREATINE KINASE 31 IU/L (30-200)
[2018-09-12] MEDS ORDERED: TUDORZA PRESS400 MCG INH (12:48)
[2018-09-12] MEDS ORDERED: POTASSIUM CHLO10 ME1 PO (12:48)
[2018-09-12] MEDS ORDERED: IPRATROPIU0.2 MG/1 M NEB (12:48)
[2018-09-12] MEDS ORDERED: KEPPRA500 MG PO (12:48)
[2018-09-12] MEDS ORDERED: SINGULAIR10 MG PO (12:48)
[2018-09-12] MEDS ORDERED: WARFARIN SODIUM3 MG PO (12:48)
[2018-09-12] MEDS ORDERED: SPIRIVA18 MCG INH (12:48)
[2018-09-12] MEDS ORDERED: CLARINEX5 MG PO (12:48)
[2018-09-12] MEDS ORDERED: IPRAT-ALBUT 0.5-3 ML INH (12:48)
[2018-09-12] MEDS ORDERED: TESSALON PERLE100 MG PO (12:48)
[2018-09-12] MEDS ORDERED: VENTOLIN HFA18 GM INH (12:48)
[2018-09-12] MEDS ORDERED: CARVEDILOL12.5 MG PO (12:48)
--- NOTE | 2018-09-12 16:03 | Consultation ---
DATE OF CONSULTATION: Cardiology Consultation REASON FOR CONSULTATION: Shortness of breath. HISTORY OF PRESENT ILLNESS: This is a 62-year-old man with a history of severe chronic obstructive pulmonary disease on oxygen, chronic systolic congestive heart failure, anomalous left coronary artery, atrial fibrillation status post pacemaker placement, hypertension, and hyperlipidemia, who presented with progressively worsening shortness of breath. The patient states that he had progressively worsening shortness of breath over the last days, associated with cough and wheezing, associated also with atypical chest discomfort, no other exacerbating or relieving factors, symptoms started at rest. REVIEW OF SYSTEMS: A 12-point review of system was conducted, is negative otherwise as stated above in the HPI. PAST MEDICAL HISTORY: As stated above in the HPI. PAST SURGICAL HISTORY: Percutaneous coronary intervention and pacemaker placement. FAMILY HISTORY: No premature coronary artery disease or sudden cardiac . SOCIAL HISTORY: No illicit drug, alcohol, or tobacco use currently. Former tobacco user. ALLERGIES: NO KNOWN DRUG ALLERGIES. MEDICATIONS: See medication reconciliation form. PHYSICAL EXAMINATION: VITAL SIGNS: Temperature is 97.0, heart rate 71, respirations are 18, blood pressure is 114/69, and oxygen saturation 98% on 2 L nasal cannula. GENERAL: He is a chronically ill-appearing white male, lying comfortably in bed, mild respiratory distress. CARDIOVASCULAR: Regular rate and rhythm. HEAD: Normocephalic, atraumatic. LUNGS: Loud wheezing throughout both lung galvan. ABDOMEN: Soft, nontender, nondistended. EXTREMITIES: No edema. VASCULAR: Diminished pulses. SKIN: Warm, dry, and intact. NEUROLOGIC: No focal deficits noted. LABORATORY DATA: Reviewed. White blood cell count 12.9, hemoglobin 11.1. Creatinine is 0.73. Troponins negative x2. Chest x-ray shows no acute pulmonary consolidation or pleural effusion. CT of the chest shows no evidence of pulmonary embolism with bilateral emphysematous changes. IMPRESSION: 1. Acute on chronic systolic congestive heart failure. 2. Chronic obstructive pulmonary disease exacerbation. 3. Atypical chest pain. 4. Nonobstructive coronary artery disease. 5. Anomalous left coronary artery. 6. Atrial fibrillation. 7. Presence of a permanent pacemaker. RECOMMENDATIONS: The patient's presenting symptoms likely related to his COPD exacerbation. Continue bronchodilators and steroids along with antibiotics per primary team. He is currently not on anticoagulation due to recent GI bleed. Continue Plavix and aspirin along with statin. Avoid beta blockers given extensive wheezing. We will check a limited 2D echo. Restart lisinopril for blood pressure control. DO ISAEL Martnies/BERNABE /[id number]
[2018-09-12] MEDS: LORAZEPAM 0.5 MG TAB PO SCH (16:39)
[2018-09-12] MEDS: LEVETIRACETAM 500 MG TAB PO SCH (16:39)
[2018-09-12] MEDS ORDERED: FUROSEMIDE 20 MG TAB PO SCH (17:00)
[2018-09-12] MEDS ORDERED: FAMOTIDINE 20 MG TAB PO SCH (17:00)
[2018-09-12] MEDS ORDERED: METOPROLOL SUCCINATE 25 MG TAB XL PO SCH (17:00)
--- NOTE | 2018-09-12 17:38 | History and Physical ---
CHIEF COMPLAINT: Chest pain. HISTORY OF PRESENT ILLNESS: Mr. Castañeda is a 62-year-old male, known to me from previous admission. The patient was here in June 2018, and was discharged. He has history of coronary artery disease. He continues to smoke. The patient had several admissions here and at [facility]. He presented because of chest pain. The chest pain started when he was climbing up the stairs, the elevators at the custodial were not working. In the emergency room, the patient was hypotensive and required fluid boluses. His blood pressure has been stable ever since he has received fluid boluses. He never required vasopressors. His white count was 12,000 when he came in. He had a CTA of the chest done because of sudden onset of chest pain, did not show any pulmonary embolism and some right lung scarring with emphysema. He has a coronary artery disease and in the past has been seen by Dr. Villafuerte's group. Dr. Sami Beck evaluated the patient last time when recommended that the patient has anomalous left anterior descending artery and a stress test, which was done in June did not show any ischemia, so no intervention was done. He had a full cardiac evaluation done the year before as well. REVIEW OF SYSTEMS: GENERAL: Denies any fever or chills. HEAD: Denies any head trauma. ENT: Denies any earaches. CVS: Denies any chest pain. RESPIRATORY: Shortness of breath. GI: Denies any nausea or vomiting. The rest of the review of systems are negative. PAST MEDICAL HISTORY: Hypertension, hyperlipidemia, coronary artery disease, COPD, anomalous left anterior descending artery, [id number] hypoxic respiratory failure, on home oxygen. FAMILY AND SOCIAL HISTORY: He continues to smoke. Lives in assisted living at [facility]. 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 PHYSICAL EXAMINATION: VITAL SIGNS: Temperature 96.9, pulse of 93, blood pressure 120/80, respiratory rate of 18. HEENT: Head is atraumatic, normocephalic. NECK: Supple. CHEST: Reduced air entry bilaterally. HEART: S1, S2 audible. ABDOMEN: Soft, nontender. EXTREMITIES: No pedal edema. NEUROLOGIC: Awake and alert. LABORATORY DATA: White count of 12,000, down to 6.9, hemoglobin 10.6, platelets 281. Chemistry is within normal limits. Troponin has been negative. BNP 241. IMAGING DATA: CT of the chest, no PE or scarring, no active pneumonia. ASSESSMENT: Mr. Castañeda is a 62-year-old male with coronary artery disease, also has a history of chronic obstructive pulmonary disease, continues to smoke. Currently, seems like that the patient may have developed chronic obstructive pulmonary disease exacerbation or he became hypoxic while climbing stairs. PLAN: 1. I will continue the patient on nebulizer treatment as ordered. At this point, we will hold off on the steroids. 2. The patient was hypotensive when he came in. Blood pressure has been stable ever since he has been on the floor. Continue the cefepime for now for presumed pneumonia. 3. I will consult Cardiology to evaluate the patient for chest pain. The patient has been seen in the past by Dr. Villafuerte's group. MD DWAYNE Mcghee/BERNABE /[id number]
[2018-09-12] MEDS: LORATADINE 10 MG TAB PO SCH (20:50)
[2018-09-12] MEDS: CLOPIDOGREL BISULFATE 75 MG TAB PO SCH (20:50)
[2018-09-12] MEDS: ATORVASTATIN 20 MG TAB PO SCH (20:50)
[2018-09-13] VITALS (19 sets, daily range): BP systolic 84–118; BP diastolic 60–94
[2018-09-13] MEDS: ALBUTEROL/IPRATROPIUM 3 ML NEB NEB SCH ×5 (00:50→23:05)
--- NOTE | 2018-09-13 01:09 | NUR ---
PATIENT INCREASED RR, LOW O2. REMAINED WITH PATIENT WHILE RESPIRATORY WAS NOTIFIED, PATIENT REFUSED INHALER. NEB TREATMENT PROVIDED. O2 WNL, RR WNL. PATIENT BEGAN HOLLERING. ENTERED ROOM RR 30 , O2 IN 70'S. INSTRUCTED PATIENT TO TAKE DEEP BREATHS, NOTIFIED RT. O2 IN 90'S NOW, PATIENT AGITATED. SPOKE WITH DR CURRAN. ORDERS RECEIVED FOR IV ATIVAN. WILL ENTER AND IMPLEMENT.
[2018-09-13] MEDS ORDERED: LORAZEPAM INJ 2 MG/ML VIAL IV ONE (01:15)
[2018-09-13] MEDS: CEFEPIME 2 GM/NS 0.9% 100 ML 100 ML IV SCH ×2 (03:45→16:17)
[2018-09-13] MEDS: FAMOTIDINE 20 MG/2 ML VIAL IV SCH ×2 (05:59→18:20)
[2018-09-13] MEDS: BUDESONIDE/FORMOTEROL 160/4.5MCG INHALER INH SCH ×2 (07:00→19:00)
--- NOTE | 2018-09-13 08:16 | NUR ---
NOTIFIED DR. CURRAN OF ABG RESULTS. RECEIVED ORDERS FOR BIPAP AND ICU TRANSFER. NOTIFIED CHARGE NURSE AND RESP THERAPIST AT THIS TIME. AWAITING ROOM FOR TRANSFER.
--- NOTE | 2018-09-13 08:48 | NUR ---
PT TRANSFERRED TO ICU ROOM 189 RECEIVING NURSE AND RT AT BEDSIDE. PROFESSIONAL CASTER REMOVED AND RETURNED TO TETRYL SCREEN OPERATOR.
--- NOTE | 2018-09-13 08:56 | NUR ---
Report from RACHEL Roque. Patient to Room 189, VSS on Bipap. Patient states he is a full code with no contact for decision making if he becomes unable to make decisions for himself.
[2018-09-13] MEDS ORDERED: LISINOPRIL 2.5 MG TAB PO SCH (09:00)
[2018-09-13] MEDS: LORAZEPAM 0.5 MG TAB PO SCH ×2 (09:00→16:24)
[2018-09-13 09:11] LABS: ABG PH 7.26 (7.31-7.41)
[2018-09-13 09:12] LABS: ABG HCO3 37 mmol/L (23-28); ABG PCO2 83 mmHg (41-51); ABG PO2 83 mmHg (80-105)
[2018-09-13] MEDS: PANTOPRAZOLE SODIUM 40 MG SUSPDR.PKT PO SCH (10:48)
[2018-09-13] MEDS: DULOXETINE HCL 30 MG DELAYED RELEASE PO SCH (10:48)
[2018-09-13] MEDS: LISINOPRIL 2.5 MG TAB PO SCH (10:48)
[2018-09-13] MEDS: ASPIRIN 81 MG CHEW TAB PO SCH (10:48)
[2018-09-13] MEDS: LEVETIRACETAM 500 MG TAB PO SCH ×2 (10:48→17:19)
[2018-09-13] MEDS: CITALOPRAM HYDROBROMIDE 20 MG TAB PO SCH (10:48)
--- NOTE | 2018-09-13 11:00 | NUR ---
Dr Bush to bedside; orders to continue with bipap and ABG at 1400.
[2018-09-13] MEDS: AZITHROMYCIN 250MG/NS 100 ML 100 ML IV SCH (11:52)
[2018-09-13 13:48] LABS: ABG PCO2 83 mmHg (41-51); ABG PH 7.28 (7.31-7.41); ABG PO2 80 mmHg (80-105)
[2018-09-13 14:21] LABS: ABG HCO3 39 mmol/L (23-28)
--- NOTE | 2018-09-13 16:07 | Progress Note ---
DATE: 09/13/2018 SUBJECTIVE: The patient was moved to the intensive care unit for respiratory distress. He is currently on noninvasive positive-pressure ventilation with continued shortness of breath. OBJECTIVE: VITAL SIGNS: Temperature 96.4, heart rate 70, respirations 16, blood pressure is 115/75, and oxygen saturation is 92% on BiPAP. He was noted to be hypoxic at 74% with 2 L nasal cannula this morning. GENERAL: Chronically ill-appearing man, in mild respiratory distress. CARDIOVASCULAR: He has regular rate and rhythm. LUNGS: Loud scattered wheezes throughout lung galvan. ABDOMEN: Soft, nontender. EXTREMITIES: Trace edema. VASCULAR: Diminished pulses. CARDIOVASCULAR MEDICATIONS: Reviewed. LABORATORY DATA: Today's labs pending. TELEMETRY: Monitoring revealed ventricular paced rhythm. IMPRESSION: 1. Chronic obstructive pulmonary disease exacerbation. 2. Acute on chronic systolic congestive heart failure. 3. Atypical chest pain. 4. Nonobstructive coronary artery disease. 5. Anomalous left coronary artery. 6. Paroxysmal atrial fibrillation. 7. Presence of permanent pacemaker. RECOMMENDATIONS: The patient's symptoms of shortness of breath and chest pain likely contributed to his chronic obstructive pulmonary disease exacerbation. Continue bronchodilators, steroids, and noninvasive positive-pressure per Pulmonology. He had a recent GI bleed, so he is not on anticoagulation. Continue dual antiplatelet therapy along with a statin for his nonobstructive coronary artery disease. The patient had a stress test last hospitalization, which showed no anterior ischemia from the anomalous left anterior descending coronary artery. Avoid beta-blockers at this point in time given extensive reactive airway disease. Resume lisinopril if his blood pressure can tolerate it. Sami Beck DO BM/MODL /[id number]
[2018-09-13] MEDS: ACETAMINOPHEN/CODEINE 300MG - 30MG TAB PO PRN (18:20)
--- NOTE | 2018-09-13 19:00 | NUR ---
Report received. Assumed care. Assessment done. See interventions. O2 per NC @ 2L. Sats 98%. Addendum: 09/13/18 at 2321 by Mya Kern RN NC at 3L.
[2018-09-13] MEDS: LORATADINE 10 MG TAB PO SCH (21:28)
[2018-09-13] MEDS: ATORVASTATIN 20 MG TAB PO SCH (21:28)
[2018-09-13] MEDS: CLOPIDOGREL BISULFATE 75 MG TAB PO SCH (21:29)
[2018-09-13] MEDS: MORPHINE SULFATE INJ 4 MG/ML INJ 1ML IV PRN (22:34)
--- NOTE | 2018-09-13 22:34 | NUR ---
Medicated for c/o chest/head pain.
[2018-09-14] VITALS (23 sets, daily range): BP systolic 81–145; BP diastolic 55–100
[2018-09-14] MEDS: ACETAMINOPHEN/CODEINE 300MG - 30MG TAB PO PRN ×3 (01:53→22:13)
--- NOTE | 2018-09-14 01:53 | NUR ---
Medicated for c/o pain the chest wall.
[2018-09-14] MEDS: CEFEPIME 2 GM/NS 0.9% 100 ML 100 ML IV SCH ×2 (03:21→15:30)
[2018-09-14] MEDS ORDERED: AMIODARONE 900MG 500 ML IV ONE (03:45)
--- NOTE | 2018-09-14 04:00 | NUR ---
Offered bath several times. Refused.
--- NOTE | 2018-09-14 05:10 | NUR ---
Medicated for c/o chest wall pain.
[2018-09-14] MEDS: MORPHINE SULFATE INJ 4 MG/ML INJ 1ML IV PRN ×2 (05:13→13:19)
[2018-09-14] MEDS: FAMOTIDINE 20 MG/2 ML VIAL IV SCH (06:15)
[2018-09-14] MEDS: BUDESONIDE/FORMOTEROL 160/4.5MCG INHALER INH SCH ×2 (07:00→19:00)
[2018-09-14] MEDS: PANTOPRAZOLE SODIUM 40 MG SUSPDR.PKT PO SCH (07:30)
[2018-09-14] MEDS: ALBUTEROL/IPRATROPIUM 3 ML NEB NEB SCH ×3 (07:45→19:00)
--- NOTE | 2018-09-14 08:22 | NUR ---
PT IS FROM [facility] NOT A SNF.
--- NOTE | 2018-09-14 08:55 | Diagnostic Imaging Report ---
Examination: Single AP view of the chest. COMPARISON: CT chest with contrast 09/11/2018, single frontal chest radiograph 09/11/2018 INDICATION: Shortness of breath, COPD DISCUSSION: Left subclavian approach implantable cardiac device body and leads, as well as right internal jugular central venous catheter are unchanged in position. Lungs remain hyperinflated. Worsening patchy bilateral lower lobe airspace opacities. Stable cardiomediastinal contour without overt pulmonary edema. No acute osseous abnormality. IMPRESSION: Worsening bibasilar airspace opacities likely represent atelectasis, though aspiration pneumonitis is an additional consideration in the appropriate clinical setting. Background emphysematous changes seen to better advantage on comparison chest CT. Signed by: Dr. Robi Gonzales M.D. on 09/14/2018 8:52 AM
[2018-09-14] MEDS: DULOXETINE HCL 30 MG DELAYED RELEASE PO SCH (08:56)
[2018-09-14] MEDS: LORAZEPAM 0.5 MG TAB PO SCH ×2 (08:56→17:00)
[2018-09-14] MEDS: ASPIRIN 81 MG CHEW TAB PO SCH (08:56)
[2018-09-14] MEDS: LEVETIRACETAM 500 MG TAB PO SCH ×2 (08:56→17:00)
[2018-09-14] MEDS: CITALOPRAM HYDROBROMIDE 20 MG TAB PO SCH (08:56)
[2018-09-14] MEDS: LISINOPRIL 2.5 MG TAB PO SCH (09:23)
--- NOTE | 2018-09-14 11:15 | NUR ---
CM TO BEDSIDE TO DISCUSS PLAN OF CARE WITH PATIENT. CM ROLE AND CARE TRANSITIONS DISCUSSED. ANTICIPATED DISCHARGE PLAN DISCUSSED ALONG WITH DURATION OF CARE. CM DISCUSSED PT RIGHTS TO MAKE DECISIONS IN CARE. CM WORK HOURS GIVEN PT LIVES: AT [facility] IN [place] ADMIT FROM ER HOSPITAL / ER VISITS SINCE LAST ADMIT: 2 ADMISSIONS TO [facility] FOR EXACERBATION OF COPD SINCE LAST DISCHARGE HERE IN JUN 2018 CURRENT/PREVIOUS HOME HEALTH: PT HAS HOME HEALTH BUT DOESN'T KNOW THE NAME. CM CALLED [facility]: SPOKE WITH SHER [phone]. SHE BELIEVES PT DOES HAVE HOME HEALTH BUT DOESN'T KNOW THE NAME OF THE COMPANY. SHE WILL CALL PT'S PCP AND FIND OUT AND CALL ME BACK PCP: DR OROPEZA COMES TO [facility] EVERY WEEK ; PT LAS SAW DR OROPEZA LAST SUNDAY 09/10 CURRENT DME: 02 WITH [facility]: [phone] PORTABLE AND CONCENTRATOR; ALSO HAS A CANE; LAST ADMISSION PT SAID HE HAD A ROLLATOR; NO STATES HE HAS NEVER HAD A ROLLATOR MEDICATIONS: (REFERRING TO INDEX HOSPITALIZATION OR THE "FIRST TIME YOU WERE IN THE HOSPITAL") A. WERE CHANGES MADE TO YOUR MEDICATIONS WHEN YOU WERE IN THE HOSPITAL ON (date of index hospitalization)? YES - LIST OF DC MEDS GIVEN TO [facility] NURSE NEW MED RX'S FILLED AND SUPPLIED TO ME BY [facility] DID PROVIDE AN ACCURATE, EASY TO UNDERSTAND LIST OF MEDS TO [facility] WHEN I LEFT SCALE OF 1-10 HOW COMFORTABLE DOES PATIENT FEEL WITH DISEASE MANAGEMENT IN OUTPATIENT SETTING: SUPPORT GOOD FROM [facility]; BUT PT CONTINUES TO SMOKE ON A DAILY BASIS OTHER SERVICES: TO BE DETERMINED EMPLOYMENT STATUS: UNEMPLOYED AREAS OF CONCERN: NONE REFERRAL NEEDS: NEED TO REFER TO HOME HEALTH ONCE NAME OF COMPANY IS DETERMINED
[2018-09-14] MEDS: AZITHROMYCIN 250MG/NS 100 ML 100 ML IV SCH (11:30)
--- NOTE | 2018-09-14 12:46 | Progress Note ---
DATE: 09/14/2018 Cardiology Progress Note SUBJECTIVE: No major events overnight. Chest pain is better this morning. OBJECTIVE: VITAL SIGNS: Temperature afebrile, pulse 73, respiratory rate 15, blood pressure 116/88, and saturating 100% on nasal cannula. GENERAL: Dishevelled, male, in no acute distress. CARDIOVASCULAR: Regular rate and rhythm. No murmurs, rubs, or gallops. LUNGS: Crackles in right lower lobe, otherwise clear to auscultation. ABDOMEN: Obese. Soft, nontender, and nondistended. NEURO AND PSYCH: Alert and oriented to person, place, and time. Normal affect. INPATIENT MEDICATIONS: Reviewed. LABORATORY DATA: Reviewed. IMAGING DATA: Reviewed. TELEMETRY DATA: Reviewed, shows paced rhythm. ASSESSMENT AND PLAN: 1. Chronic obstructive pulmonary disease exacerbation. 2. Acute on chronic systolic congestive heart failure. 3. Atypical chest pain. 4. Nonobstructive coronary artery disease. 5. Anomalous left coronary artery. 6. Paroxysmal atrial fibrillation. 7. Status post permanent pacemaker placement. RECOMMENDATIONS: Doing well from a cardiovascular standpoint. Okay to be moved out of the ICU. We will defer the decision to Pulmonary team given ongoing respiratory issues. No further studies or change in management plan from cardiovascular standpoint at this time. We will continue to follow. Thank you for this consult. MD GUIDO Argueta/BERNABE /[id number]
[2018-09-14] MEDS ORDERED: SODIUM CHLORIDE 0.9% 250ML 250 ML ONE (13:06)
[2018-09-14] MEDS ORDERED: FAMOTIDINE 20 MG/2 ML VIAL IV SCH (16:30)
[2018-09-14] MEDS: FAMOTIDINE 20 MG TAB PO SCH (16:30)
--- NOTE | 2018-09-14 19:19 | NUR ---
Psyche consult called with Dr. Driscoll and I spoke to Noe and message will be given to Dr. Driscoll for consult in AM.
[2018-09-14] MEDS: CLOPIDOGREL BISULFATE 75 MG TAB PO SCH (21:16)
[2018-09-14] MEDS: ATORVASTATIN 20 MG TAB PO SCH (21:16)
[2018-09-14] MEDS: LORATADINE 10 MG TAB PO SCH (21:16)
[2018-09-15] VITALS (13 sets, daily range): BP systolic 126–151; BP diastolic 76–102
[2018-09-15] MEDS: ALBUTEROL/IPRATROPIUM 3 ML NEB NEB SCH ×4 (01:00→19:15)
[2018-09-15] MEDS: CEFEPIME 2 GM/NS 0.9% 100 ML 100 ML IV SCH ×2 (03:48→15:30)
[2018-09-15] MEDS: ACETAMINOPHEN/CODEINE 300MG - 30MG TAB PO PRN ×3 (03:49→17:43)
[2018-09-15] MEDS: BUDESONIDE/FORMOTEROL 160/4.5MCG INHALER INH SCH ×2 (07:00→19:00)
[2018-09-15] MEDS: FAMOTIDINE 20 MG TAB PO SCH ×2 (07:30→17:10)
[2018-09-15] MEDS: LORAZEPAM 0.5 MG TAB PO SCH ×2 (08:26→17:10)
[2018-09-15] MEDS: CITALOPRAM HYDROBROMIDE 20 MG TAB PO SCH (08:26)
[2018-09-15] MEDS: ASPIRIN 81 MG CHEW TAB PO SCH (08:26)
[2018-09-15] MEDS: LEVETIRACETAM 500 MG TAB PO SCH ×2 (08:27→17:10)
[2018-09-15] MEDS: DULOXETINE HCL 30 MG DELAYED RELEASE PO SCH (08:27)
[2018-09-15] MEDS: LISINOPRIL 2.5 MG TAB PO SCH (08:28)
[2018-09-15 08:51] LABS: BASOPHILS % 0.1 % (0.0-1.0); EOSINOPHILS # (AUTO) 0.1 (0.0-0.4); EOSINOPHILS % 1.1 % (0.0-6.0); HEMATOCRIT 34.1 % (38.2-49.6); HEMOGLOBIN 10.3 g/dL (14.0-18.0); LYMPHOCYTES # (AUTO) 1.7 (1.0-3.2); LYMPHOCYTES % 20.8 % (18.0-39.1); MEAN CORPUSCULAR HEMOGLOBIN 27.2 pg (28-32); MEAN CORPUSCULAR HGB CONC 30.2 g/dL (31-35); MONOCYTES # (AUTO) 0.8 (0.2-0.8); MONOCYTES % 10.3 % (4.4-11.3); NEUTROPHILS # (AUTO) 5.4 (2.1-6.9); NEUTROPHILS % 67.1 % (38.7-80.0); PLATELET COUNT 234 x10e3/uL (140-360); RED BLOOD COUNT 3.79 x10e6/uL (4.3-5.7); RED CELL DISTRIBUTION WIDTH 14.4 % (11.7-14.4)
[2018-09-15 09:12] LABS: ANION GAP 9.2 mmol/L (8-16); BLOOD UREA NITROGEN 9 mg/dL (7-26); BUN/CREATININE RATIO 14 (6-25); CALCIUM 8.8 mg/dL (8.4-10.2); CARBON DIOXIDE 39 mmol/L (22-29); CHLORIDE 96 mmol/L (98-107); CREATININE, SERUM 0.65 mg/dL (0.72-1.25); EST GLOMERULAR FILTRATION RATE > 60 ML/MIN (60-); GLUCOSE 133 mg/dL (74-118); POTASSIUM 4.2 mmol/L (3.5-5.1); SODIUM 140 mmol/L (136-145)
--- NOTE | 2018-09-15 10:20 | NUR ---
PATIENT CALLED SAYING THAT HE WAS HAVING CHEST PAIN AND MEDICATED WITH TYLENOL #3 PO AT A10:09 AND TOLERATED WELL. SAYS HIS PAIN WAS A "9" ON A SCALE OF 1--10, WITH '10' BEING THE MOST SEVERE PAIN.
[2018-09-15] MEDS: AZITHROMYCIN 250MG/NS 100 ML 100 ML IV SCH (11:30)
[2018-09-15] MEDS ORDERED: SODIUM CHLORIDE 0.9% 250ML 250 ML ONE (12:40)
--- NOTE | 2018-09-15 14:30 | NUR ---
REPORT CALLED TO RACHEL VILLARREAL AND PATIENT TRANSFERRED VIA WHEELCHAIR TO [facility] ROOM 199 AND TOLERATED WELL. V/S ARE STABLE. DENIES ANY PAIN OR DISCOMFORT AT THIS TIME. RESPIRATIONS ARE EVEN AND UNLABORED AND O2 SATS ARE 100% AND ON O2 AT 2LITERS PER NASAL CANNULA.
--- NOTE | 2018-09-15 19:53 | Progress Note ---
DATE: 09/15/2018 Cardiology Progress Note SUBJECTIVE: No major events overnight. Transferred out of the ICU. OBJECTIVE: VITAL SIGNS: Temperature afebrile, pulse 78, respiratory rate 18, blood pressure 127/82, saturating 100% on nasal cannula. GENERAL: man, in no acute distress. CARDIOVASCULAR: Regular rate and rhythm. No murmurs, rubs, or gallops. LUNGS: Clear to auscultation bilaterally. ABDOMEN: Obese, soft, nontender, nondistended. PSYCH: Alert and oriented to person, place, and time. Normal affect. INPATIENT MEDICATIONS: Reviewed. LABORATORY DATA: Reviewed. IMAGING DATA: Reviewed. TELEMETRY DATA: Reviewed. Shows paced rhythm. ASSESSMENT AND PLAN: 1. Chronic obstructive pulmonary disease exacerbation. 2. Acute on chronic systolic congestive heart failure. 3. Atypical chest pain. 4. Nonobstructive coronary artery disease. 5. Anomalous left anterior descending artery from the right coronary cusp. 6. Paroxysmal atrial fibrillation. 7. Status post permanent pacemaker placement. RECOMMENDATIONS: Doing well from cardiovascular standpoint. Chest pain is noncardiac and has had a thorough workup on previous admissions. Management of COPD per pulmonary team. Thank you for this consult. We will continue to follow. MD GUIDO Argueta/BERNABE /[id number]
[2018-09-15] MEDS: LORATADINE 10 MG TAB PO SCH (20:39)
[2018-09-15] MEDS: ATORVASTATIN 20 MG TAB PO SCH (20:39)
[2018-09-15] MEDS: CLOPIDOGREL BISULFATE 75 MG TAB PO SCH (20:39)
[2018-09-15] MEDS ORDERED: ASPIRIN 81 MG CHEW TAB PO ONE (21:15)
[2018-09-15 21:39] LABS: CREATINE KINASE 10 IU/L (30-200)
[2018-09-15] MEDS: MORPHINE SULFATE INJ 4 MG/ML INJ 1ML IV PRN (22:23)
[2018-09-15] MEDS: LORAZEPAM 0.5 MG TAB PO PRN (22:23)
[2018-09-16] VITALS (13 sets, daily range): BP systolic 105–138; BP diastolic 76–101
--- NOTE | 2018-09-16 01:05 | Consultation ---
DATE OF CONSULTATION: 09/15/2018 Psychiatric Consultation REASON FOR CONSULTATION: To evaluate the patient's depression and anxiety. HISTORY OF PRESENT ILLNESS: The patient is a 62-year-old male admitted to the hospital for COPD with acute exacerbation. Psychiatric consultation is called to evaluate the patient's mood. The patient is well known to Psychiatry for his mood disorder and alcohol use. His past medical history includes hypertension, hyperlipidemia, coronary artery disease, COPD, and he takes oxygen at home. Upon evaluation today, the patient is found to be in the room. He is alert, awake, and oriented to situation. He claims that his mood is doing fair. He reports intermittent anxiety. He denies any depression. He denies any suicidal ideation. He denies any hallucination. He is calm and cooperative. He denies any problem with sleep or appetite. PAST PSYCHIATRIC HISTORY: The patient has history of depression, anxiety, and alcohol use. He denies past suicide attempts. He claims he drinks 1 beer once every month. He denies any drug use. FAMILY HISTORY: Denies. SOCIAL HISTORY: The patient lives in an assisted living facility. MENTAL STATUS EXAMINATION: The patient is an elderly male. He is alert, awake, and oriented to situation. His mood is anxious. He denies any suicidal or homicidal ideation. He denies any hallucination. Thought process is concrete. No delusion elicited. Affect is congruent with mood. Insight and judgment are fair. He denies any hallucinations. Psychomotor state is passive. CURRENT MEDICATION: 1. Ativan 0.25 mg p.o. twice a day. 2. Famotidine. 3. Keppra. 4. Cefepime. 5. Albuterol/ipratropium. 6. Azithromycin. 7. Tylenol No. 3. 8. Lisinopril. 9. Cymbalta 30 mg p.o. daily. 10. Celexa 20 mg p.o. daily. 11. Aspirin. 12. Plavix. 13. Claritin. 14. Lipitor. 15. Symbicort. 16. Albuterol. CURRENT LABORATORY DATA: WBC is 8.07, RBC 3.79, hemoglobin 10.3, hematocrit 34.1, and platelets 234. Sodium 140, potassium 4.2, chloride 96, CO2 39, BUN 9, and creatinine is 0.65. ASSESSMENT: 1. Major depressive disorder, recurrent, mild. 2. Generalized anxiety disorder. 3. Alcohol use. PLAN: 1. To change Ativan 0.25 mg p.o. b.i.d. to p.r.n. 2. Continue with Cymbalta 30 mg p.o. daily. 3. Continue with Celexa 20 mg p.o. daily. 4. Monitor for mood. 5. Supportive therapy. 6. Recommend abstinence from alcohol. Thank you for this consultation. Dictated by Nivia Howard PA-C Bessy Driscoll MD QTV/MODL /[id number]
[2018-09-16] MEDS: ALBUTEROL/IPRATROPIUM 3 ML NEB NEB SCH ×4 (02:35→19:15)
[2018-09-16] MEDS: CEFEPIME 2 GM/NS 0.9% 100 ML 100 ML IV SCH ×2 (04:11→17:05)
[2018-09-16] MEDS: MORPHINE SULFATE INJ 4 MG/ML INJ 1ML IV PRN (04:16)
[2018-09-16] MEDS: BUDESONIDE/FORMOTEROL 160/4.5MCG INHALER INH SCH ×2 (07:00→19:00)
[2018-09-16] MEDS: FAMOTIDINE 20 MG TAB PO SCH ×2 (08:08→17:05)
[2018-09-16] MEDS: ASPIRIN 81 MG CHEW TAB PO SCH (10:49)
[2018-09-16] MEDS: DULOXETINE HCL 30 MG DELAYED RELEASE PO SCH (10:49)
[2018-09-16] MEDS: CITALOPRAM HYDROBROMIDE 20 MG TAB PO SCH (10:49)
[2018-09-16] MEDS: LISINOPRIL 2.5 MG TAB PO SCH (10:50)
[2018-09-16] MEDS: LEVETIRACETAM 500 MG TAB PO SCH ×2 (10:50→17:30)
[2018-09-16] MEDS: AZITHROMYCIN 250MG/NS 100 ML 100 ML IV SCH (12:24)
--- NOTE | 2018-09-16 14:00 | NUR ---
PATIENT SEEN BY PHYSICAL THERAPY, PATIENT REFUSED SHOWER AND CHANGE OF LINENS.
--- NOTE | 2018-09-16 14:11 | NUR ---
WOUND CARE PUP SCREEN Saman Score =20 Conservative PUP LOS= 4 days Age=62 y/o [employer] HOB = 45 Degrees Patient Position: Left Ambulates with walker. PATIENT VISIT / SKIN CHECK: NO PRESSURE ULCERS RECOMMENDATION: Continue Conservative PUP Protocol Addendum: 09/16/18 at 1416 by Murray Turpin RN Amended: Links added.
--- NOTE | 2018-09-16 16:21 | NUR ---
Nutrition Screen Note RD Recommendation for Physician: -Continue cardiac diet as ordered -Pt refused diet education; handouts were left on bedside. Plan of Care: RD following, monitoring for tolerance and adequacy Nutrition reason for involvement: LOS Primary Diagnose(s): 1. Chronic obstructive pulmonary disease exacerbation. 2. Acute on chronic systolic congestive heart failure. PMH: Hypertension, hyperlipidemia, coronary artery disease, COPD, anomalous left anterior descending artery, [id number] hypoxic respiratory failure, on home oxygen. Ht: 72in Wt: 210.5lb BMI: 28.5kg/m2 IBW: 178lb RD Assessment: (09/16) Chart reviewed. Labs and meds reviewed. 62yo M, who was admitted for chest pain. Currently on BiPAP and abx. Smoker. Visited pt in the room. Pt reported good appetite without any GI complains. Pt denied any chewing or swallowing difficulty. Pt denied any recent weight loss [employer]. Pt refused diet education. Will continue to monitor and follow. Current Diet: cardiac diet Malnutrition Evaluation (09/16) The patient does not meet criteria for a specified degree of malnutrition at this time. Will re-evaluate at follow-up as appropriate. Diet Education Needs Assessment: Diet education indicated, pt was not interested. Nutrition Care Level: low Signed: Winnie Wisdom, MS, RD, LD
--- NOTE | 2018-09-16 19:00 | NUR ---
patient received awake, alert, lying quietly in bed. bp 138/101 hr 73 rr 18 02 sats 100% on /nc temp 97.6 patient remains on bedside telemetry. patient remains paced at this time. pm assessment complete. call madsen placed within reach. patient instructed to call for assistance when needed.
[2018-09-16] MEDS: LORAZEPAM 0.5 MG TAB PO PRN (20:00)
[2018-09-16] MEDS: ACETAMINOPHEN/CODEINE 300MG - 30MG TAB PO PRN (20:00)
[2018-09-16] MEDS: LORATADINE 10 MG TAB PO SCH (20:00)
[2018-09-16] MEDS: ATORVASTATIN 20 MG TAB PO SCH (20:00)
[2018-09-16] MEDS: CLOPIDOGREL BISULFATE 75 MG TAB PO SCH (20:00)
--- NOTE | 2018-09-16 20:00 | NUR ---
patient medicated with tylenol #3 po for c/o generalized pain 10/12 and ativan 0.25 mg po for anxiety. 02/2l/nc in use. respirations even and unlabored.
--- NOTE | 2018-09-16 21:00 | Progress Note ---
DATE: 09/16/2018 Cardiology Progress Note. SUBJECTIVE: No major events overnight. OBJECTIVE: VITAL SIGNS: Temperature afebrile, pulse 78, respiratory rate 20, blood pressure 105/76, saturating 99% on nasal cannula. GENERAL: Obese man in no acute distress. CARDIOVASCULAR: Regular rate and rhythm. No murmurs, rubs, or gallops. LUNGS: Clear to auscultation bilaterally. ABDOMEN: Soft, nontender, nondistended. Obese. PSYCH: Alert and oriented to person, place, and time. Normal affect. INPATIENT MEDICATIONS: Reviewed. LABORATORY DATA: Reviewed. IMAGING DATA: Reviewed. TELEMETRY DATA: Reviewed. Shows paced rhythm. ASSESSMENT AND PLAN: 1. Chronic obstructive pulmonary disease exacerbation. 2. Acute on chronic systolic congestive heart failure. 3. Atypical chest pain. 4. Nonobstructive coronary artery disease. 5. Anomalous left coronary artery. 6. Paroxysmal atrial fibrillation. 7. Status post permanent pacemaker placement. RECOMMENDATIONS: Doing well from cardiovascular standpoint. No further tests planned at this point. Continue current cardiovascular medications. We will continue to follow. MD GUIDO Argueta/BERNABE /[id number]
[2018-09-17] VITALS (9 sets, daily range): BP systolic 96–142; BP diastolic 78–103
--- NOTE | 2018-09-17 | NUR ---
patient appears to be resting quietly. no further c/o pain noted.
[2018-09-17] MEDS: CEFEPIME 2 GM/NS 0.9% 100 ML 100 ML IV SCH ×2 (03:29→14:30)
--- NOTE | 2018-09-17 04:00 | NUR ---
am labs drawn from right ij tlc at this time and sent to lab.
[2018-09-17 04:15] LABS: BASOPHILS % 0.1 % (0.0-1.0); EOSINOPHILS # (AUTO) 0.1 (0.0-0.4); EOSINOPHILS % 1.8 % (0.0-6.0); HEMATOCRIT 34.9 % (38.2-49.6); HEMOGLOBIN 10.6 g/dL (14.0-18.0); LYMPHOCYTES # (AUTO) 1.7 (1.0-3.2); LYMPHOCYTES % 23.3 % (18.0-39.1); MEAN CORPUSCULAR HGB CONC 30.4 g/dL (31-35); MEAN CORPUSCULAR VOLUME 88.8 fL (81-99); MONOCYTES # (AUTO) 0.8 (0.2-0.8); MONOCYTES % 10.8 % (4.4-11.3); NEUTROPHILS # (AUTO) 4.7 (2.1-6.9); NEUTROPHILS % 63.2 % (38.7-80.0); PLATELET COUNT 222 x10e3/uL (140-360); RED BLOOD COUNT 3.93 x10e6/uL (4.3-5.7); RED CELL DISTRIBUTION WIDTH 14.2 % (11.7-14.4)
[2018-09-17 04:32] LABS: ANION GAP 8.4 mmol/L (8-16); BLOOD UREA NITROGEN 9 mg/dL (7-26); BUN/CREATININE RATIO 16 (6-25); CARBON DIOXIDE 37 mmol/L (22-29); CHLORIDE 98 mmol/L (98-107); CREATININE, SERUM 0.56 mg/dL (0.72-1.25); EST GLOMERULAR FILTRATION RATE > 60 ML/MIN (60-); GLUCOSE 86 mg/dL (74-118); POTASSIUM 4.4 mmol/L (3.5-5.1); SODIUM 139 mmol/L (136-145)
--- NOTE | 2018-09-17 06:00 | NUR ---
patient offered a shower this am but patient refuses at this time.
[2018-09-17] MEDS: ALBUTEROL/IPRATROPIUM 3 ML NEB NEB SCH ×4 (07:00→19:30)
[2018-09-17] MEDS: BUDESONIDE/FORMOTEROL 160/4.5MCG INHALER INH SCH ×2 (07:00→21:00)
[2018-09-17] MEDS: DULOXETINE HCL 30 MG DELAYED RELEASE PO SCH (08:52)
[2018-09-17] MEDS: CITALOPRAM HYDROBROMIDE 20 MG TAB PO SCH (08:52)
[2018-09-17] MEDS: FAMOTIDINE 20 MG TAB PO SCH ×2 (08:53→17:21)
[2018-09-17] MEDS: LISINOPRIL 2.5 MG TAB PO SCH (08:53)
[2018-09-17] MEDS: ASPIRIN 81 MG CHEW TAB PO SCH (08:53)
[2018-09-17] MEDS: LEVETIRACETAM 500 MG TAB PO SCH ×2 (08:53→17:21)
[2018-09-17] MEDS: AZITHROMYCIN 250MG/NS 100 ML 100 ML IV SCH (12:04)
[2018-09-17] MEDS: LORAZEPAM 0.5 MG TAB PO PRN (17:20)
--- NOTE | 2018-09-17 19:05 | Progress Note ---
DATE: 09/17/2018 Psychiatric Progress Note SUBJECTIVE: The patient is evaluated and events noted. The patient is in the room. He is alert, awake, and oriented to situation. He is calm and cooperative. He denies anxiety, but he reports less anxious. Denies any depression. Denies any hallucination. Denies any suicidal ideation. He denies any side effects from his medication. ASSESSMENT: 1. Major depressive disorder, recurrent, mild. 2. Generalized anxiety disorder. 3. Alcohol use. PLAN: 1. Continue Ativan 0.25 mg p.o. twice a day as needed. 2. Continue Cymbalta 30 mg p.o. daily. 3. Continue Celexa 20 mg p.o. daily. 4. Monitor for mood. 5. Supportive therapy. Dictated by Nivia Howard PA-C Bessy Driscoll MD QTV/MODL /[id number]
--- NOTE | 2018-09-17 19:35 | NUR ---
RECEIVED PT IN BED AOX3 MAC PAIN .RESPIRATIONS ARE EVEN AND UNLABORED .PT IS ON TELEMETRY PACING .PT IS ON O2 2LN/C REDNESS TO BOTH ARMS .CALL LIGHT WITH IN REACH .CONTINUE TOO MONITOR
[2018-09-17] MEDS: LORATADINE 10 MG TAB PO SCH (20:41)
[2018-09-17] MEDS: CLOPIDOGREL BISULFATE 75 MG TAB PO SCH (20:41)
[2018-09-17] MEDS: ATORVASTATIN 20 MG TAB PO SCH (20:41)
[2018-09-17] MEDS: MORPHINE SULFATE INJ 4 MG/ML INJ 1ML IV PRN (21:30)
--- NOTE | 2018-09-17 23:00 | NUR ---
PT C/O PAIN ,GIVEN ORDERED MORPHINE .CONTINUE TO MONITOR
[2018-09-18] VITALS (7 sets, daily range): BP systolic 89–127; BP diastolic 66–99
[2018-09-18] MEDS ORDERED: SODIUM CHLORIDE 0.9% 250ML 250 ML ONE (03:04)
[2018-09-18] MEDS: CEFEPIME 2 GM/NS 0.9% 100 ML 100 ML IV SCH ×2 (03:30→15:30)
--- NOTE | 2018-09-18 06:40 | NUR ---
PT RESTING .CHANGED THE DRESSING AT THE IV SITE .REFUSED BATH .CONTINUE TO MONITOR
--- NOTE | 2018-09-18 07:00 | NUR ---
REPORT GIVEN TO THE ONCOMING NURSE.
[2018-09-18] MEDS: ALBUTEROL/IPRATROPIUM 3 ML NEB NEB SCH ×3 (07:19→13:23)
[2018-09-18] MEDS: BUDESONIDE/FORMOTEROL 160/4.5MCG INHALER INH SCH (07:30)
[2018-09-18] MEDS: DULOXETINE HCL 30 MG DELAYED RELEASE PO SCH (09:00)
[2018-09-18] MEDS: FAMOTIDINE 20 MG TAB PO SCH ×2 (09:00→16:30)
[2018-09-18] MEDS: CITALOPRAM HYDROBROMIDE 20 MG TAB PO SCH (09:00)
[2018-09-18] MEDS: ASPIRIN 81 MG CHEW TAB PO SCH (09:00)
[2018-09-18] MEDS: LEVETIRACETAM 500 MG TAB PO SCH ×2 (09:00→17:00)
[2018-09-18] MEDS: LISINOPRIL 2.5 MG TAB PO SCH (09:00)
[2018-09-18] MEDS: AZITHROMYCIN 250MG/NS 100 ML 100 ML IV SCH (11:45)
[2018-09-18] MEDS: ACETAMINOPHEN/CODEINE 300MG - 30MG TAB PO PRN (11:52)
--- NOTE | 2018-09-18 13:18 | NUR ---
CM CALLED [facility] [phone] SPOKE WITH [facility] [employer] [employer] 3 PM TODAY PT WILL NEED TAXI VOUCHER TO GET HOME NURSE NOTIFIED
--- NOTE | 2018-09-18 16:11 | Progress Note ---
DATE: 09/18/2018 Psychiatric Progress Note SUBJECTIVE: The patient is evaluated and events noted. The patient is in the room. He is calm and cooperative. He reports doing fair. He denies depression. Reports feeling less anxious. He denies any hallucination. He denies any suicidal ideation. He states that he is eating fair and sleeping fair. He denies any side effects from medications. ASSESSMENT: 1. Major depressive disorder, recurrent, mild. 2. Generalized anxiety disorder. 3. Alcohol use. PLAN: 1. Continue with Ativan 0.25 mg p.o. twice a day as needed. 2. Continue Cymbalta 30 mg p.o. daily. 3. Continue with Celexa 20 mg p.o. daily. 4. Supportive therapy. 5. Monitor for mood. Dictated by Nivia Howard PA-C Bessy Driscoll MD QTV/MODL /[id number]
--- NOTE | 2018-09-18 16:51 | NUR ---
PT CLEARED TO [place], [facility] NOTIFIED OF PT RETURN. PENDING TAXI PICKUP FOR TRANSPORT
--- NOTE | 2018-09-18 20:46 | Progress Note ---
DATE: 09/18/2018 SUBJECTIVE: No major events overnight. OBJECTIVE: VITAL SIGNS: Temperature 98.3, pulse 75, respiratory rate 20, blood pressure 125/92, and saturating 100% on nasal cannula. GENERAL: Obese white man, in no acute distress. CARDIOVASCULAR: Regular rate and rhythm. No murmurs, rubs, or gallops. LUNGS: Clear to auscultation bilaterally. ABDOMEN: Soft, nontender, and nondistended. Obese. NEURO AND PSYCH: Alert and oriented to person, place, and time. Normal affect. INPATIENT MEDICATIONS: Reviewed. LABORATORY DATA: Reviewed. IMAGING DATA: Reviewed. TELEMETRY DATA: Reviewed, paced rhythm. ASSESSMENT AND PLAN: 1. Chronic obstructive pulmonary disease exacerbation. 2. Acute on chronic systolic congestive heart failure. 3. Atypical chest pain. 4. Nonobstructive coronary artery disease. 5. Anomalous left coronary artery. 6. Paroxysmal atrial fibrillation. 7. Status post permanent pacemaker placement. RECOMMENDATIONS: Doing well from cardiovascular standpoint. No further testing is planned at this point. Continue current CV regimen. Okay to be discharged from cardiac standpoint. Thank you. We will continue to follow. MD GUIDO Argueta/BERNABE /[id number]
--- NOTE | 2018-09-19 04:57 | Discharge Summary ---
FINAL DIAGNOSES: 1. Pneumonia. 2. Chronic obstructive pulmonary disease exacerbation. 3. Coronary artery disease. 4. Hypertension. 5. Chronic chest pain. ADMISSION HISTORY AND HOSPITAL COURSE: Mr. Castañeda is a 62-year-old male presented with shortness of breath, hypotension, and he was possibly septic due to pneumonia. IV antibiotics and IV hydration was done, he responded to them and he never required vasopressors. The patient improved. The patient has a chronic chest pain and also has coronary artery disease, which has been worked up in the past. Cardiology was consulted and Cardiology evaluated the patient. Antibiotics were continued for pneumonia, the patient improved. He will be discharged back to the [facility]. He will continue all his home medications. Apparently, he was on Coumadin, however, his INR here was normal, and the patient never mentioned that he was taking Coumadin. We called [facility] and they confirmed that the patient has been prescribed Coumadin, however, he is noncompliant with taking the medications. I have recommended that he will continue all the medications which has been prescribed to him. He has verbalized understanding. He will continue the oxygen. MD DWAYNE Mcghee/BERNABE /[id number]
== END 2018-09-18 18:30 | DRG 871 ==
LOC: ER 14:18 → ERHOLD 18:43 → MED/SURG 20:45 → ICU 09-13 08:43 → IMCU 09-15 14:52
PROVIDERS: ADMIT Internal Medicine; ATTEND Internal Medicine
DX: A41.9 Sepsis, unspecified organism (principal); J18.9 Pneumonia, unspecified organism; J96.21 Acute and chronic respiratory failure with hypoxia; I50.23 Acute on chronic systolic (congestive) heart failure; J44.1 Chronic obstructive pulmonary disease with (acute) exacerbation; I25.10 Atherosclerotic heart disease of native coronary artery without angina pectoris; I48.91 Unspecified atrial fibrillation
CPT/HCPCS: 36415; 36556; 36600; 71045; 71260; 80048; 80053; 81001; 82550; 82553; 82805; 83605; 83735; 83880; 84484; 85025; 85610; 85730; 87040; 87086; 93005; 94640; 94660; 94664; 96367; 96374; 96376; 97139; 99284; J2060; J2270; J2405; J2930; J3370; J7030; J7050; Q9967

== ENCOUNTER 2018-09-24 15:29 | Inpatient (IN) | payer OTHER ==
[~2018-09-24] VITALS: Ht 182.9 cm; Wt 98.0 kg
[~2018-09-24 15:29] MED LIST changes: +CARVEDILOL12.5 MG PO; +CLARINEX5 MG PO; +IPRAT-ALBUT 0.5-3 ML INH; +IPRATROPIU0.2 MG/1 M NEB; +KEPPRA500 MG PO; +POTASSIUM CHLO10 ME1 PO; +SINGULAIR10 MG PO; -SYMBICORT 16010.2 GM; +SYMBICORT 16010.2 GM INH; +TESSALON PERLE100 MG PO; +TUDORZA PRESS400 MCG INH; +VENTOLIN HFA18 GM INH; +WARFARIN SODIUM3 MG PO
[2018-09-24] MEDS ORDERED: ALBUTEROL/IPRATROPIUM 3 ML NEB NEB ONE (15:45)
[2018-09-24] MEDS ORDERED: MAGNESIUM SULFATE 2GM/50ML 50 ML IV ONE (15:45)
[2018-09-24] MEDS ORDERED: DEXAMETHASONE SOD PHOS 10 MG/1 ML VIAL IV ONE (15:45)
[2018-09-24 16:28] LABS: BASOPHILS % 0.1 % (0.0-1.0); EOSINOPHILS # (AUTO) 0.1 (0.0-0.4); EOSINOPHILS % 0.4 % (0.0-6.0); HEMATOCRIT 37.7 % (38.2-49.6); HEMOGLOBIN 11.7 g/dL (14.0-18.0); LYMPHOCYTES # (AUTO) 1.8 (1.0-3.2); LYMPHOCYTES % 12.5 % (18.0-39.1); MEAN CORPUSCULAR HEMOGLOBIN 26.8 pg (28-32); MEAN CORPUSCULAR VOLUME 86.5 fL (81-99); MONOCYTES # (AUTO) 1.1 (0.2-0.8); MONOCYTES % 7.3 % (4.4-11.3); NEUTROPHILS # (AUTO) 11.4 (2.1-6.9); NEUTROPHILS % 79.1 % (38.7-80.0); PLATELET COUNT 286 x10e3/uL (140-360); RED BLOOD COUNT 4.36 x10e6/uL (4.3-5.7); RED CELL DISTRIBUTION WIDTH 14.8 % (11.7-14.4)
--- NOTE | 2018-09-24 16:40 | Diagnostic Imaging Report ---
EXAM: CHEST SINGLE (PORTABLE), AP Portable DATE: 09/24/2018 Time stamp on exam: 4:14 PM INDICATION: Chest pain and shortness of breath COMPARISON: 09/14/2018 FINDINGS: LINES/TUBES: Dual lead cardiac device from a left subclavian approach. LUNGS: Mild pulmonary vascular congestion. PLEURA: Small right pleural effusion. HEART AND MEDIASTINUM: Normal size and contour. BONES AND SOFT TISSUES: No acute findings. IMPRESSION: Mild pulmonary vascular congestion and a small right pleural effusion. Signed by: Dr. Layton Broussard DO on 09/24/2018 4:37 PM
[2018-09-24 16:46] LABS: ALANINE AMINOTRANSFERASE 19 IU/L (0-55); ALBUMIN 3.4 g/dL (3.5-5.0); ALBUMIN/GLOBULIN RATIO 1.3 (0.8-2.0); ALKALINE PHOSPHATASE 68 IU/L (40-150); ANION GAP 15.3 mmol/L (8-16); BLOOD UREA NITROGEN 12 mg/dL (7-26); BUN/CREATININE RATIO 18 (6-25); CALCIUM 9.1 mg/dL (8.4-10.2); CARBON DIOXIDE 25 mmol/L (22-29); CHLORIDE 100 mmol/L (98-107); CREATININE, SERUM 0.67 mg/dL (0.72-1.25); EST GLOMERULAR FILTRATION RATE > 60 ML/MIN (60-); GLUCOSE 77 mg/dL (74-118); POTASSIUM 4.3 mmol/L (3.5-5.1); SODIUM 136 mmol/L (136-145)
[2018-09-24 17:02] LABS: ABG PCO2 44 mmHg (41-51); ABG PO2 73 mmHg (80-105)
[2018-09-24 17:03] LABS: ABG HCO3 28 mmol/L (23-28)
[2018-09-24] MEDS ORDERED: ASPIRIN 81 MG CHEW TAB PO ONE (17:30)
[2018-09-24] MEDS ORDERED: SODIUM CHLORIDE FLUSH 10 ML SYR INJ PRN (17:30)
[2018-09-24] MEDS: FAMOTIDINE 20 MG/2 ML VIAL IV SCH (18:16)
[2018-09-24] MEDS: AZITHROMYCIN 250 MG TAB PO SCH (18:16)
[2018-09-24] MEDS: ALBUTEROL/IPRATROPIUM 3 ML NEB NEB SCH ×2 (19:05→23:50)
[2018-09-24] MEDS ORDERED: ROBAFEN100 MG/5 M PO (19:49)
[2018-09-24] MEDS ORDERED: anoro ellipta INH (19:51)
[2018-09-24] MEDS ORDERED: CYMBALTA20 MG PO (19:52)
[2018-09-24] MEDS ORDERED: FUROSEMIDE40 MG PO (19:54)
[2018-09-24] MEDS ORDERED: CLARINEX5 MG PO (19:54)
[2018-09-24] MEDS ORDERED: METOPROLOL TART25 MG PO (19:57)
[2018-09-24] MEDS ORDERED: TUDORZA PRESS400 MCG INH (19:59)
[2018-09-24] MEDS ORDERED: SPIRIVA18 MCG INH (19:59)
[2018-09-24] MEDS ORDERED: SEROQUEL25 MG PO (20:00)
[2018-09-24] MEDS ORDERED: duoneb INH (20:01)
[2018-09-24] MEDS ORDERED: MEDI PO (20:04)
[2018-09-24] MEDS ORDERED: NON-FORMULARY MEDICATION (Benzonatate (Tessalon Perle) 200 MG) PO PRN (21:30)
[2018-09-24] MEDS ORDERED: ALBUTEROL SULFATE HFA 8GM INHALATION AEROSOL INH PRN (21:30)
[2018-09-24] MEDS ORDERED: MEDI PO PRN (21:30)
[2018-09-24] MEDS ORDERED: IPRATROPIUM BROMIDE 0.02% 2.5 ML NEB NEB PRN (21:30)
[2018-09-24] MEDS ORDERED: ALBUTEROL/IPRATROPIUM 3 ML NEB INH PRN (21:30)
[2018-09-24] MEDS: ACETAMINOPHEN/CODEINE 300MG - 30MG TAB PO PRN (21:43)
[2018-09-24] MEDS: METHYLPREDNISOLONE SOD SUCC 125 MG/2ML VIAL IV SCH (21:45)
[2018-09-24 21:57] LABS: CREATINE KINASE MB 3.2 ng/mL (0-5.0)
[2018-09-24] MEDS ORDERED: BENZONATATE 100 MG CAP PO PRN (22:00)
[2018-09-24] MEDS: GUAIFENESIN 200 MG/10 ML UDC PO SCH (23:12)
[2018-09-25 01:13] LABS: CREATINE KINASE 22 IU/L (30-200)
[2018-09-25] MEDS: FAMOTIDINE 20 MG/2 ML VIAL IV SCH ×2 (05:33→17:22)
[2018-09-25] MEDS: METHYLPREDNISOLONE SOD SUCC 125 MG/2ML VIAL IV SCH ×3 (05:33→21:42)
[2018-09-25] MEDS: GUAIFENESIN 200 MG/10 ML UDC PO SCH ×3 (05:33→21:43)
[2018-09-25] MEDS: ALBUTEROL/IPRATROPIUM 3 ML NEB NEB SCH ×5 (06:35→22:29)
[2018-09-25 06:53] LABS: HEMATOCRIT 33.8 % (38.2-49.6); HEMOGLOBIN 10.5 g/dL (14.0-18.0); LYMPHOCYTES # (AUTO) 0.4 (1.0-3.2); LYMPHOCYTES % 6.4 % (18.0-39.1); MEAN CORPUSCULAR HGB CONC 31.1 g/dL (31-35); MEAN CORPUSCULAR VOLUME 86.9 fL (81-99); MONOCYTES # (AUTO) 0.1 (0.2-0.8); MONOCYTES % 0.9 % (4.4-11.3); NEUTROPHILS # (AUTO) 6.3 (2.1-6.9); NEUTROPHILS % 92.1 % (38.7-80.0); PLATELET COUNT 255 x10e3/uL (140-360); RED BLOOD COUNT 3.89 x10e6/uL (4.3-5.7); RED CELL DISTRIBUTION WIDTH 14.9 % (11.7-14.4)
[2018-09-25 07:13] LABS: ANION GAP 11.1 mmol/L (8-16); BLOOD UREA NITROGEN 14 mg/dL (7-26); BUN/CREATININE RATIO 22 (6-25); CALCIUM 8.3 mg/dL (8.4-10.2); CARBON DIOXIDE 26 mmol/L (22-29); CHLORIDE 106 mmol/L (98-107); CREATININE, SERUM 0.63 mg/dL (0.72-1.25); EST GLOMERULAR FILTRATION RATE > 60 ML/MIN (60-); GLUCOSE 140 mg/dL (74-118); POTASSIUM 4.1 mmol/L (3.5-5.1); SODIUM 139 mmol/L (136-145)
[2018-09-25 08:12] LABS: CREATINE KINASE MB 2.4 ng/mL (0-5.0)
[2018-09-25] MEDS: CARVEDILOL 12.5 MG TAB PO SCH ×2 (08:40→17:21)
[2018-09-25] MEDS: ASPIRIN 81 MG CHEW TAB PO SCH (08:40)
[2018-09-25] MEDS: LISINOPRIL 2.5 MG TAB PO SCH (08:41)
[2018-09-25] MEDS: LORAZEPAM 0.5 MG TAB PO SCH ×3 (08:41→21:42)
[2018-09-25] MEDS: METOPROLOL TARTRATE 25 MG TAB PO SCH (08:41)
[2018-09-25] MEDS: FUROSEMIDE 40 MG TAB PO SCH ×2 (08:41→17:22)
[2018-09-25] MEDS: POTASSIUM CHLORIDE 10MEQ EA PO SCH (08:41)
[2018-09-25] MEDS: DULOXETINE HCL 20 MG DELAYED RELEASE PO SCH (08:41)
[2018-09-25] MEDS: LEVETIRACETAM 500 MG TAB PO SCH ×2 (08:41→17:22)
[2018-09-25] MEDS: CITALOPRAM HYDROBROMIDE 20 MG TAB PO SCH (08:41)
[2018-09-25] MEDS: PANTOPRAZOLE SODIUM 40 MG SUSPDR.PKT PO SCH (08:43)
[2018-09-25] MEDS ORDERED: NON-FORMULARY MEDICATION (Desloratadine (Clarinex) 5 MG) PO SCH (09:00)
[2018-09-25] MEDS ORDERED: LORATADINE 10 MG TAB PO SCH (09:00)
[2018-09-25] MEDS: ACLIDINIUM BROMIDE INH SCH (09:00)
[2018-09-25] MEDS ORDERED: NICOTINE 14 MG/EA PATCH TOP SCH (09:00)
[2018-09-25 09:59] LABS: INR 1.01; PROTHROMBIN TIME 13.8 seconds (11.9-14.5)
[2018-09-25] MEDS: ACETAMINOPHEN 325 MG TAB PO PRN ×2 (10:14→18:40)
--- NOTE | 2018-09-25 10:15 | NUR ---
DR LAIRD AT BEDSIDE WITH PT
[2018-09-25] MEDS: BUDESONIDE/FORMOTEROL 160/4.5MCG INHALER INH SCH ×2 (10:30→20:22)
[2018-09-25] MEDS: TIOTROPIUM 18 MCG INH POWDER INH SCH (10:30)
--- NOTE | 2018-09-25 12:05 | NUR ---
Recvd patient from ER, AAOx3, assisted him to bed, on O2 3LNC, On Tele, denies SOB or Chest pain, not in any distress, call light in reach, keep monitoring
[2018-09-25 12:30] VITALS: BP 90/59
[2018-09-25 13:25] VITALS: BP 105/77
[2018-09-25] MEDS: ALBUTEROL SULFATE HFA 8GM INHALATION AEROSOL INH PRN ×2 (13:45→19:32)
[2018-09-25] MEDS: ACETAMINOPHEN/CODEINE 300MG - 30MG TAB PO PRN ×2 (14:31→19:02)
--- NOTE | 2018-09-25 15:05 | History and Physical ---
CHIEF COMPLAINT: Respiratory failure, congestive heart failure. HISTORY OF PRESENT ILLNESS: The patient is a 62-year-old male with recurrent hospitalization. He was just recently here discharged on September 19, 2018. Prior to that, he was in the hospital previously at [facility] as well. The patient has baseline multiple medical problems. He is oxygen dependent. He has major depression, anxiety disorder. He has history of alcohol use but denied excessive usage. The patient lives at [facility]. He came in now with increase in respiratory problem. He has slight increase in WBC and also chest x-ray showed some vascular congestion. Baseline, the patient has COPD on oxygen support 3 L per minute. He has also had coronary artery disease with previous stent, had a permanent pacemaker in the left chest area. The patient's lab work in the emergency room showed WBC of 14.3. His chemistry panel otherwise unremarkable. The patient is also on anticoagulant therapy. His coagulation is still pending at this time. The patient is currently stable. PAST MEDICAL HISTORY: COPD, major depression, anxiety disorder, coronary artery disease with previous stent. Atrial fibrillation. Left permanent pacemaker. 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 PAST SURGICAL HISTORY: Permanent pacemaker, left upper chest. SOCIAL HISTORY: The patient is a smoker. He is a social drinker. ALLERGIES: NO KNOWN ALLERGIES. HOME MEDICATIONS: List is extensively reviewed. The patient is on Tylenol No. 3, aspirin, DuoNeb, Lipitor, Tessalon Perles, Symbicort, Coreg, Celexa, Plavix, Cymbalta, Pepcid, Lasix, Keppra, lisinopril, Claritin, Ativan, recent steroids, metoprolol, Remeron, Singulair, nicotine patch, potassium, Seroquel, and warfarin. PHYSICAL EXAMINATION: VITAL SIGNS: Temperature is 97, blood pressure 105/82, pulse rate 80, respirations 20. The patient is on oxygen support. HEENT: Normocephalic, atraumatic. Anicteric. NECK: Supple grossly. PULMONARY: Bilateral rhonchi and wheezing. There are rales at the bases. CARDIOVASCULAR: S1, S2. Atrial fibrillation, rate controlled. ABDOMEN: Soft, obese. EXTREMITIES: No cyanosis or edema. NEUROLOGIC: No gross focal deficit. Agitated but not confused. LABORATORY DATA: Sodium is 139, potassium 4.1, chloride 106, bicarb 26, BUN 14, creatinine 0.6, glucose 140. Cardiac enzymes negative. WBC is 14.3, hemoglobin 11.7, hematocrit 37.7, and platelet is 286. IMPRESSION: 1. Acute chronic obstructive pulmonary disease exacerbation. 2. Acute congestive heart failure. 3. Multiple chronic baseline medical problems. PLAN: The patient admitted. Resume home medication. IV Lasix. Echocardiogram if not yet done. We will continue with checking the patient protime for his warfarin. We will continue to monitor this patient closely. The patient will need pulmonary and cardiology consultation. MD KALA Haley/ALANAL /[id number]
[2018-09-25 16:50] VITALS: BP 100/69
[2018-09-25] MEDS: AZITHROMYCIN 250 MG TAB PO SCH (17:22)
[2018-09-25] MEDS: WARFARIN SOD 3 MG TAB PO SCH (17:22)
[2018-09-25] MEDS: NITROGLYCERIN 0.4 MG SUBL SL SCH ×2 (18:40→19:26)
--- NOTE | 2018-09-25 19:28 | NUR ---
patient is complaining of pain in the chest 10/12. MD notified received new order for malox 30cc every 6 hours as needed for chest pain. will continue to monitor patient for chest pain.
[2018-09-25] MEDS ORDERED: MAGNESIUM/ALUMINUM/SIMETHICONE 30 ML UDC PO PRN (19:30)
--- NOTE | 2018-09-25 19:51 | NUR ---
patient is upset about order to receive malox. patient has stormed out of facility to smoke. Voice message left on MD's phone. will continue to monitor patient.
[2018-09-25 20:00] VITALS: BP 112/63
[2018-09-25 20:38] VITALS: BP 112/63
--- NOTE | 2018-09-25 21:10 | NUR ---
patient is agitated and states he is going to go outside to smoke. patient has been educated on the no smoking policy of the facility. patient has been told that it is not in his best interest to go out to smoke as he is short of breath and requires continuous oxygen. patient states he doesn't care and is going to go out and smoke.
--- NOTE | 2018-09-25 21:15 | NUR ---
patient left unit unannounced and went outside to have a cigarette. whilst outside patient became short of breath. patient was found by security advisor in the [facility] having difficulty breathing. Rapid response was initiated and patient was given some oxygen and escorted back into his room. MD was notified immediately. MD states he is not able to stop patient from smoking. MD states we are to follow hospital protocol in regards to patient's that want to smoke. Patient has been re-educated on the hospital policy which prohibits smoking on the facility grounds. Patient has been informed that if he goes out and smokes again he risks jeopardizing his stay here at the hospital. patient states he will not go out and smoke again. Will continue to monitor patient.
[2018-09-25] MEDS: ATORVASTATIN 20 MG TAB PO SCH (21:42)
[2018-09-25] MEDS: MIRTAZAPINE 15 MG TAB PO SCH (21:42)
[2018-09-25] MEDS: MONTELUKAST SODIUM 10 MG TAB PO SCH (21:42)
[2018-09-25] MEDS: QUETIAPINE FUMARATE 25 MG TAB PO SCH (21:42)
[2018-09-25] MEDS: LORATADINE 10 MG TAB PO SCH (21:42)
[2018-09-25] MEDS: CLOPIDOGREL BISULFATE 75 MG TAB PO SCH (21:42)
[2018-09-26] VITALS (8 sets, daily range): BP systolic 71–128; BP diastolic 48–86
[2018-09-26] MEDS: ALBUTEROL/IPRATROPIUM 3 ML NEB NEB SCH ×6 (00:23→20:02)
[2018-09-26] MEDS: GUAIFENESIN 200 MG/10 ML UDC PO SCH ×3 (06:11→20:50)
[2018-09-26] MEDS: FAMOTIDINE 20 MG/2 ML VIAL IV SCH ×2 (06:11→18:50)
[2018-09-26] MEDS: METHYLPREDNISOLONE SOD SUCC 125 MG/2ML VIAL IV SCH (06:11)
[2018-09-26] MEDS: TIOTROPIUM 18 MCG INH POWDER INH SCH (07:12)
[2018-09-26] MEDS: BUDESONIDE/FORMOTEROL 160/4.5MCG INHALER INH SCH ×2 (07:13→20:15)
--- NOTE | 2018-09-26 07:13 | NUR ---
report given to day nurse. patient is resting in bed. bed is in lowest position and call madsen is within reach.
--- NOTE | 2018-09-26 08:32 | NUR ---
Patient resting in bed, Alert with no distress, No SOB, Low BP 84/58, Notified Dr Carter, no new orders
[2018-09-26] MEDS: CARVEDILOL 12.5 MG TAB PO SCH ×2 (09:00→16:51)
[2018-09-26] MEDS: ACLIDINIUM BROMIDE INH SCH (09:00)
[2018-09-26] MEDS: METOPROLOL TARTRATE 25 MG TAB PO SCH (09:00)
[2018-09-26] MEDS: LISINOPRIL 2.5 MG TAB PO SCH (09:00)
[2018-09-26] MEDS: PANTOPRAZOLE SODIUM 40 MG SUSPDR.PKT PO SCH (09:57)
[2018-09-26] MEDS: LORAZEPAM 0.5 MG TAB PO SCH ×3 (09:58→22:16)
[2018-09-26] MEDS: CEFTRIAXONE SOD 1 GM/NS 50 ML 50 ML IV SCH (09:58)
[2018-09-26] MEDS: DULOXETINE HCL 20 MG DELAYED RELEASE PO SCH (09:58)
[2018-09-26] MEDS: ASPIRIN 81 MG CHEW TAB PO SCH (09:58)
[2018-09-26] MEDS: CITALOPRAM HYDROBROMIDE 20 MG TAB PO SCH (09:58)
[2018-09-26] MEDS: POTASSIUM CHLORIDE 10MEQ EA PO SCH (09:58)
[2018-09-26] MEDS: NICOTINE 21 MG/EA PATCH TOP SCH (09:59)
[2018-09-26] MEDS: LEVETIRACETAM 500 MG TAB PO SCH ×2 (09:59→16:52)
--- NOTE | 2018-09-26 11:21 | Diagnostic Imaging Report ---
EXAM: CT Chest WITHOUT contrast INDICATION: ^SOB COMPARISON: Chest x-ray 09/24/2018. 09/14/2018. CT chest 09/11/2018. TECHNIQUE: Chest was scanned utilizing a multidetector helical scanner from the lung apex through the level of the adrenal glands without administration of IV contrast. Absence of intravenous contrast decreases sensitivity for detection of lymphadenopathy and vascular pathology. Coronal and sagittal reformations were obtained. Routine protocol was performed. IV CONTRAST: None COMPLICATIONS: None RADIATION DOSE: Total DLP: 560.85 mGy*cm Estimated effective dose: (DLP x 0.014 x size factor) mSv CTDIvol has been reviewed. It is below the limits set by the Radiation Protocol Committee (RPC). Dose modulation, iterative reconstruction, and/or weight based adjustment of the mA/kV was utilized to reduce the radiation dose to as low as reasonably achievable. FINDINGS: LINES/ TUBES: Left-sided pacemaker with 2 intact leads. LUNGS AND AIRWAYS: Bilateral upper lobe paraseptal emphysematous changes, right greater than left. Mild centrilobular emphysema. Biapical pleural-parenchymal scarring. Fibrotic changes in the posterior inferior right middle lobe, and right lung base with calcified granuloma in the right middle lobe posteriorly on image 80. Unchanged mild bronchial wall thickening. PLEURA: The pleural spaces are clear. HEART AND MEDIASTINUM: The thyroid gland is normal. No mediastinal, hilar or axillary lymphadenopathy. Single prominent 0.7 cm precarinal lymph node. The heart is normal in size. There is no pericardial effusion. There are mild atherosclerotic calcifications in the aorta and coronary arteries. Right coronary artery stent and less likely calcification. UPPER ABDOMEN: Small sliding hernia. Small sliding hiatal hernia. BONES: There are degenerative changes in the thoracic spine. Unchanged mild compression deformity of T12 vertebral body. Stable compression fracture of L1 vertebral body with greater than 50% height loss. Healed fractures of the posterior right fifth through eighth ribs. SOFT TISSUES: Unremarkable. IMPRESSION: 1. No change in right lung base scarring. 2. No change in upper lobe predominant emphysema. Unchanged mild bronchial wall thickening, likely reactive airway. Signed by: Dr. Tevin South M.D. on 09/26/2018 11:18 AM
[2018-09-26] MEDS: FUROSEMIDE INJ 10 MG/ML 4 ML VIAL IV SCH (11:55)
[2018-09-26] MEDS: METHYLPREDNISOLONE SOD SUCC 40 MG/ML VIAL 1ML IV SCH ×2 (15:10→20:50)
--- NOTE | 2018-09-26 16:06 | Consultation ---
DATE OF CONSULTATION: 09/26/2018 REASON FOR THE CONSULTATION: Shortness of breath and chest tightness. HISTORY: This is a 62-year-old gentleman, who is known with multiple medical health problem. In fact, he had multiple admissions to the hospital. Most recently was in [facility]. The patient apparently is heavy, heavy and heavy smoker. He has his own home oxygen, but he does not take it because he smokes. He used to be seen in the past by Dr. Gonzáles. Then, he was in several hospitals. He comes to the hospital frequently with severe shortness of breath. Unfortunately, he is a heavy smoker. The patient is supposed to be on oxygen, but he does not use it. He continues to smoke heavily. He drinks but he said in moderation. He came to this institution, "I am having shortness of breath." The patient admitted for further management. Cardiac consultation is obtained. I visited with the patient who is really truly poorly historian. His main problem is shortness of breath on exertion and easy fatigability. He did have definitely chest pain. He had serial cardiac enzymes, which all were normal. His BNP is only at 187. His main issue is severe shortness of breath and easy fatigability. There is no orthopnea, no paroxysmal nocturnal dyspnea. He does have frequent cough productive and wheezes. "I cannot breathe." He denied having any angina. Of note, the patient had pacemaker and possible history of atrial fibrillation as per Dr. Carter's note. However, he is on anticoagulation probably secondary to poor compliance. Definitely, there is also good compliance, talking to the patient and taking care of his health and his medication. PAST MEDICAL HISTORY: 1. COPD, home oxygen dependency. 2. Depression. 3. Anxiety. 4. Coronary artery disease, prior PCI. 5. Possible atrial fibrillation. 6. Pacemaker. 7. "Anomaly" of the left anterior descending coronary artery as per record. 8. The patient also used cane to walk and he complained also of degenerative joint disease. SOCIAL HISTORY: He is staying in [address]. He is a smoker. He is social alcohol drinker. He is unemployed for many years. CURRENT MEDICATIONS: Long list including albuterol and ipratropium, aspirin 81 mg a day, Plavix 75 mg a day, Coreg 25 mg twice a day, Protonix 40 mg a day. Atorvastatin 20 mg a day. Potassium 10 mEq a day. Levetiracetam 500 mg twice a day. Seroquel 50 mg at bedtime, lisinopril 2.5 mg a day. Singulair. Following admission, also the patient started on nebulizer, ceftriaxone, and azithromycin. ALLERGIES: NONE. FAMILY HISTORY: Noncontributory. PHYSICAL EXAMINATION: VITAL SIGNS: Height of 6 feet, weight of 192 pounds. Blood pressure is 104/64, heart rate of 70, respiratory rate of 18. HEENT: Pupils are reactive. NECK: No elevation of jugular venous pulsation. CHEST: Pacemaker is noted in place. Decreased lung expansion. Crackles. HEART: PMI 5th left intercostal space. Increased intensity of 2nd heart sound. ABDOMEN: Soft with good bowel sounds. EXTREMITIES: No cyanosis, no clubbing, no edema. NEUROLOGIC: Gait is abnormal. The patient uses cane and he has tendency to fall. LABORATORY DATA: Sodium of 139, potassium 4.1, BUN of 14, creatinine of 0.63, glucose of 140. White blood cell count of 6.9, hemoglobin of 10.5, hematocrit 33%, platelet count of 255,000. ABGs on 2 L oxygen showed pH of 7.4, pCO2 of 44, PO2 of 73. EKG showing pacer activities. CT chest showing emphysema. Degenerative joint disease of the spine. Right coronary artery stent. IMPRESSION AND PLAN: 1. Acute on chronic obstructive pulmonary disease exacerbation. 2. Coronary artery disease. 3. Possible diastolic heart failure. The patient currently seems to be compensated clinically by BNP criteria. 4. Depression. 5. Anxiety. 6. Possible pulmonary hypertension. Cardiac melendez, my recommendation will be to minimize his medication for better compliance since his left ventricular systolic function by preliminary echo report, which I am going to review showed ejection fraction in the 45 to 50 and because of his blood pressure on lower side, probably we will stop his lisinopril. We will continue his Coreg. We will continue his aspirin. We will continue his Plavix. Oral anticoagulation seems to be out of the picture. All this are discussed and explained. Questions are answered. MD LILO Jansen/MODL /[id number]
[2018-09-26] MEDS: AZITHROMYCIN 250 MG TAB PO SCH (16:52)
[2018-09-26] MEDS: WARFARIN SOD 3 MG TAB PO SCH (16:52)
--- NOTE | 2018-09-26 18:39 | NUR ---
patient ambulating on [address], not in any distress, denies chest pain this time
[2018-09-26] MEDS: ATORVASTATIN 20 MG TAB PO SCH (20:50)
[2018-09-26] MEDS: CLOPIDOGREL BISULFATE 75 MG TAB PO SCH (20:50)
[2018-09-26] MEDS: LORATADINE 10 MG TAB PO SCH (20:50)
[2018-09-26] MEDS: MONTELUKAST SODIUM 10 MG TAB PO SCH (20:50)
[2018-09-26] MEDS: QUETIAPINE FUMARATE 25 MG TAB PO SCH (20:50)
[2018-09-26] MEDS: MIRTAZAPINE 15 MG TAB PO SCH (20:50)
[2018-09-26] MEDS: ALPRAZOLAM 0.25 MG TAB PO PRN (20:54)
[2018-09-26] MEDS: NITROGLYCERIN 0.4 MG SUBL SL SCH (20:55)
--- NOTE | 2018-09-26 21:52 | NUR ---
Patient arrived to the unit (in Rm 286) as a transfer from OBS unit. Patient alert and oriented x3 and ambulatory using a cane prn. Pt frequently on 3L NC. Pt respiratory rate elevated (around 20s). MD aware. Pt aware not to wander off the unit per MD order. Call madsen within reach. Pt asking for food and juice. Will monitor closely.
--- NOTE | 2018-09-26 22:20 | NUR ---
Patient given 1 cup apple juice and 1 sandwich per request. No distress or discomfort noted.
[2018-09-27] VITALS (8 sets, daily range): BP systolic 109–139; BP diastolic 73–96
[2018-09-27] MEDS: NITROGLYCERIN 0.4 MG SUBL SL SCH (00:37)
[2018-09-27] MEDS: ALBUTEROL/IPRATROPIUM 3 ML NEB NEB SCH ×6 (02:15→23:00)
[2018-09-27] MEDS: ACETAMINOPHEN/CODEINE 300MG - 30MG TAB PO PRN ×2 (05:15→15:46)
[2018-09-27] MEDS: METHYLPREDNISOLONE SOD SUCC 40 MG/ML VIAL 1ML IV SCH ×3 (05:16→21:58)
[2018-09-27] MEDS: FAMOTIDINE 20 MG/2 ML VIAL IV SCH ×2 (05:16→17:10)
[2018-09-27] MEDS: GUAIFENESIN 200 MG/10 ML UDC PO SCH ×3 (05:17→21:58)
[2018-09-27] MEDS: TIOTROPIUM 18 MCG INH POWDER INH SCH (06:00)
--- NOTE | 2018-09-27 06:23 | NUR ---
Patient resting in bed. No distress noted. Call madsen within reach.
[2018-09-27 06:44] LABS: BASOPHILS % 0.1 % (0.0-1.0); HEMATOCRIT 36.1 % (38.2-49.6); LYMPHOCYTES # (AUTO) 0.6 (1.0-3.2); LYMPHOCYTES % 3.7 % (18.0-39.1); MEAN CORPUSCULAR HEMOGLOBIN 26.6 pg (28-32); MEAN CORPUSCULAR HGB CONC 30.5 g/dL (31-35); MEAN CORPUSCULAR VOLUME 87.4 fL (81-99); MONOCYTES # (AUTO) 0.2 (0.2-0.8); NEUTROPHILS % 94.7 % (38.7-80.0); PLATELET COUNT 150 x10e3/uL (140-360); RED BLOOD COUNT 4.13 x10e6/uL (4.3-5.7); RED CELL DISTRIBUTION WIDTH 15.3 % (11.7-14.4)
[2018-09-27] MEDS: BUDESONIDE/FORMOTEROL 160/4.5MCG INHALER INH SCH ×2 (07:00→19:00)
--- NOTE | 2018-09-27 07:00 | NUR ---
RECEIVED AM REPORT FROM NURSE. PT IS ASLEEP IN BED, NO S/S OF DISTRESS. O2 3L VIA NC.
[2018-09-27 07:45] LABS: ANION GAP 12.9 mmol/L (8-16); BLOOD UREA NITROGEN 14 mg/dL (7-26); BUN/CREATININE RATIO 20 (6-25); CALCIUM 8.6 mg/dL (8.4-10.2); CARBON DIOXIDE 27 mmol/L (22-29); CHLORIDE 104 mmol/L (98-107); CREATININE, SERUM 0.71 mg/dL (0.72-1.25); EST GLOMERULAR FILTRATION RATE > 60 ML/MIN (60-); GLUCOSE 195 mg/dL (74-118); POTASSIUM 3.9 mmol/L (3.5-5.1); SODIUM 140 mmol/L (136-145)
[2018-09-27] MEDS: ASPIRIN 81 MG CHEW TAB PO SCH (09:29)
[2018-09-27] MEDS: LORAZEPAM 0.5 MG TAB PO SCH ×3 (09:30→21:12)
[2018-09-27] MEDS: CITALOPRAM HYDROBROMIDE 20 MG TAB PO SCH (09:30)
[2018-09-27] MEDS: CARVEDILOL 12.5 MG TAB PO SCH ×2 (09:31→17:00)
[2018-09-27] MEDS: DULOXETINE HCL 20 MG DELAYED RELEASE PO SCH (09:31)
[2018-09-27] MEDS: POTASSIUM CHLORIDE 10MEQ EA PO SCH (09:32)
[2018-09-27] MEDS: LEVETIRACETAM 500 MG TAB PO SCH ×2 (09:32→17:00)
[2018-09-27] MEDS: METOPROLOL TARTRATE 25 MG TAB PO SCH (09:33)
[2018-09-27] MEDS: NICOTINE 21 MG/EA PATCH TOP SCH (09:34)
[2018-09-27] MEDS: LISINOPRIL 2.5 MG TAB PO SCH (09:34)
[2018-09-27] MEDS: FUROSEMIDE INJ 10 MG/ML 4 ML VIAL IV SCH (09:36)
[2018-09-27] MEDS: CEFTRIAXONE SOD 1 GM/NS 50 ML 50 ML IV SCH (09:45)
[2018-09-27 10:54] LABS: % IRON SATURATION 8 % (15-50); IRON 28 ug/dL (65-175); TOTAL IRON BINDING CAPACITY 364 ug/dL (261-478); TRANSFERRIN 260 mg/dL (174-364)
[2018-09-27] MEDS ORDERED: IPRATROPIUM BROMIDE 0.02% 2.5 ML NEB NEB SCH (11:00)
[2018-09-27 12:28] LABS: LYMPHOCYTES % (MANUAL) 5 % (19-48); NEUTROPHILS % (MANUAL) 95 % (40-74)
--- NOTE | 2018-09-27 12:54 | Consultation ---
DATE OF CONSULTATION: 09/27/2018 Pulmonary Consultation Patient of Dr. Carter and Dr. Snow, charming but unfortunate 62-year-old gentleman, disabled by stroke, living in [facility]. Patient of Dr. Perla, history of COPD, very severe; coronary artery disease, stent, old stroke with left-sided weakness; remote decortication, right side; heart failure, diastolic and systolic, with ejection fraction approximately of 45%. He is on home oxygen. He is depressed. He has a pacemaker. He has history of anomalous LAD. He continues to smoke despite the admonitions of his physicians. He is a poor historian. He is admitted with shortness of breath and cough. He denies sputum production. PHYSICAL EXAMINATION: VITAL SIGNS: Temperature 96.5, pulse 70, respirations 17, blood pressure 118/60. HEAD: Normocephalic, atraumatic. EYES: Extraocular movements intact. LUNGS: Diminished breath sounds. HEART: Regular rhythm. ABDOMEN: Nontender. EXTREMITIES: Nonedematous. Left-sided weakness, uses a cane. LABORATORY DATA: White count was elevated on admission, 14.3. Has anemia, apparently check serum iron level. IMPRESSION AND PLAN: Heart failure, atherosclerosis, chronic obstructive pulmonary disease, depression, anemia possibly iron deficient, pleural and pulmonary scars. Recommended cigarette smoking cessation, therapy of depression, reduce duplicate medications such as Anoro, Tudorza, and ipratropium. Moderate dose corticosteroids due to the therapy. Thank you for this kind referral. MD THELMA Gonzalez/MODL /[id number]
[2018-09-27] MEDS: WARFARIN SOD 3 MG TAB PO SCH (17:00)
[2018-09-27] MEDS: AZITHROMYCIN 250 MG TAB PO SCH (17:10)
--- NOTE | 2018-09-27 17:57 | NUR ---
Nutrition Screen Note RD Recommendation for Physician: Continue diet as ordered Plan of Care: RD following, monitoring for tolerance and adequacy Nutrition reason for involvement: Nutrition Risk Trigger - MST Primary Diagnose(s): COPD with acute exacerbation, hypoxemia PMH: CAD, atrial fibrillation Ht:72 in Wt:192.06lb BMI:26 kg/m2 IBW:178lb RD Assessment: (09/27/2018) Chart reviewed. Labs and meds reviewed. Pt is on Warfarin Initial encounter with patient. Pt denies any difficulty chewing or swallowing. 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 Denies N,V,D. Normal BM. No wt changes. Current Diet: Cardiac Malnutrition Evaluation (09/27/2018) The patient does not meet criteria for a specified degree of malnutrition at this time. Will re-evaluate at follow-up as appropriate. Diet Education Needs Assessment: Diet education not indicated. Nutrition Care Level: Low, Moderate, High Signed: Bernard Zavala RD, LD, [facility]
--- NOTE | 2018-09-27 19:15 | NUR ---
Rounding done & report received. Patient is awake and sitting in bed, A&Ox4, RR even & unlabored, no distress noted. Patient c/o CP 11/11 & is requesting pain med, will medicate per order. Call light within reach, bed set to lowest position & siderails x2 raised.
[2018-09-27] MEDS: LORATADINE 10 MG TAB PO SCH (21:12)
[2018-09-27] MEDS: ATORVASTATIN 20 MG TAB PO SCH (21:12)
[2018-09-27] MEDS: MIRTAZAPINE 15 MG TAB PO SCH (21:12)
[2018-09-27] MEDS: MONTELUKAST SODIUM 10 MG TAB PO SCH (21:12)
[2018-09-27] MEDS: CLOPIDOGREL BISULFATE 75 MG TAB PO SCH (21:12)
[2018-09-27] MEDS: QUETIAPINE FUMARATE 25 MG TAB PO SCH (21:12)
[2018-09-28] VITALS (9 sets, daily range): BP systolic 75–122; BP diastolic 52–81
[2018-09-28] MEDS: ALBUTEROL/IPRATROPIUM 3 ML NEB NEB SCH ×7 (04:50→23:55)
[2018-09-28] MEDS: ACETAMINOPHEN/CODEINE 300MG - 30MG TAB PO PRN ×2 (05:02→15:45)
[2018-09-28] MEDS: TIOTROPIUM 18 MCG INH POWDER INH SCH (06:00)
[2018-09-28] MEDS: GUAIFENESIN 200 MG/10 ML UDC PO SCH ×3 (06:08→21:46)
[2018-09-28] MEDS: METHYLPREDNISOLONE SOD SUCC 40 MG/ML VIAL 1ML IV SCH ×2 (06:08→16:08)
[2018-09-28] MEDS: FAMOTIDINE 20 MG/2 ML VIAL IV SCH ×2 (06:08→16:58)
[2018-09-28] MEDS: BUDESONIDE/FORMOTEROL 160/4.5MCG INHALER INH SCH ×2 (07:00→19:22)
--- NOTE | 2018-09-28 07:02 | NUR ---
RECEIVED PATIENT RESTING IN BED. NO ACUTE DISTRESS NOTED. CALL LIGHT WITHIN REACH. BED IN THE LOWEST POSITION.
[2018-09-28] MEDS: CEFTRIAXONE SOD 1 GM/NS 50 ML 50 ML IV SCH (08:44)
[2018-09-28] MEDS: FUROSEMIDE INJ 10 MG/ML 4 ML VIAL IV SCH (08:44)
[2018-09-28] MEDS: PANTOPRAZOLE SOD 40 MG TABEC PO SCH (08:44)
[2018-09-28] MEDS: POTASSIUM CHLORIDE 10MEQ EA PO SCH (08:45)
[2018-09-28] MEDS: LORAZEPAM 0.5 MG TAB PO SCH ×3 (08:45→20:43)
[2018-09-28] MEDS: METOPROLOL TARTRATE 25 MG TAB PO SCH (08:45)
[2018-09-28] MEDS: ASPIRIN 81 MG CHEW TAB PO SCH (08:45)
[2018-09-28] MEDS: DULOXETINE HCL 20 MG DELAYED RELEASE PO SCH (08:45)
[2018-09-28] MEDS: LISINOPRIL 2.5 MG TAB PO SCH (08:45)
[2018-09-28] MEDS: NICOTINE 21 MG/EA PATCH TOP SCH (08:45)
[2018-09-28] MEDS: LEVETIRACETAM 500 MG TAB PO SCH ×2 (08:45→16:08)
[2018-09-28] MEDS: CARVEDILOL 12.5 MG TAB PO SCH ×2 (08:45→16:08)
[2018-09-28] MEDS: CITALOPRAM HYDROBROMIDE 20 MG TAB PO SCH (08:45)
[2018-09-28] MEDS: SUCRALFATE 1 GM/10 ML SUSP NG SCH ×3 (10:42→20:43)
[2018-09-28 10:57] LABS: INR 3.37; PROTHROMBIN TIME 34.9 seconds (11.9-14.5)
--- NOTE | 2018-09-28 14:39 | NUR ---
NOTIFIED DR. MCCOLLUM OF PATIENT'S INR OF 3.37 AND PATIENT TAKING COUMADIN 9MG, PER MD DO NOT GIVE TODAY'S DOSE.
[2018-09-28] MEDS: AZITHROMYCIN 250 MG TAB PO SCH (16:58)
--- NOTE | 2018-09-28 19:31 | NUR ---
REPORT GIVEN TO ONCOMING NURSE, WALKING ROUNDS DONE. PATIENT IS RESTING IN BED. NO ACUTE DISTRESS NOTED. NO S/S OF DISTRESS NOTED. CALL LIGHT WITHIN REACH. BED IN THE LOWEST POSITION.
--- NOTE | 2018-09-28 19:38 | NUR ---
PT IS RESTING IN BED. NO RESPIRATORY DISTRESS NOTED. BED IN THE LOWEST POSITION, LOCKED, AND CALL LIGHT WITHIN REACH. WILL CONTINUE TO MONITOR.
[2018-09-28] MEDS: ATORVASTATIN 20 MG TAB PO SCH (20:43)
[2018-09-28] MEDS: MIRTAZAPINE 15 MG TAB PO SCH (20:43)
[2018-09-28] MEDS: CLOPIDOGREL BISULFATE 75 MG TAB PO SCH (20:43)
[2018-09-28] MEDS: QUETIAPINE FUMARATE 25 MG TAB PO SCH (20:43)
[2018-09-28] MEDS: LORATADINE 10 MG TAB PO SCH (20:43)
[2018-09-28] MEDS: MONTELUKAST SODIUM 10 MG TAB PO SCH (20:44)
[2018-09-29] VITALS (7 sets, daily range): BP systolic 92–130; BP diastolic 54–94
[2018-09-29] MEDS: ALBUTEROL/IPRATROPIUM 3 ML NEB NEB SCH ×5 (03:00→20:52)
[2018-09-29] MEDS: ACETAMINOPHEN/CODEINE 300MG - 30MG TAB PO PRN (03:13)
[2018-09-29] MEDS: GUAIFENESIN 200 MG/10 ML UDC PO SCH ×3 (05:40→21:19)
[2018-09-29] MEDS: FAMOTIDINE 20 MG/2 ML VIAL IV SCH ×2 (05:40→17:19)
[2018-09-29 06:11] LABS: BASOPHILS % 0.1 % (0.0-1.0); HEMATOCRIT 34.6 % (38.2-49.6); HEMOGLOBIN 10.8 g/dL (14.0-18.0); LYMPHOCYTES # (AUTO) 0.7 (1.0-3.2); LYMPHOCYTES % 4.7 % (18.0-39.1); MEAN CORPUSCULAR HEMOGLOBIN 26.7 pg (28-32); MEAN CORPUSCULAR HGB CONC 31.2 g/dL (31-35); MEAN CORPUSCULAR VOLUME 85.6 fL (81-99); MONOCYTES # (AUTO) 0.8 (0.2-0.8); MONOCYTES % 5.7 % (4.4-11.3); NEUTROPHILS # (AUTO) 12.4 (2.1-6.9); NEUTROPHILS % 88.8 % (38.7-80.0); PLATELET COUNT 286 x10e3/uL (140-360); RED BLOOD COUNT 4.04 x10e6/uL (4.3-5.7); RED CELL DISTRIBUTION WIDTH 15.2 % (11.7-14.4)
[2018-09-29 06:14] LABS: INR 2.96; PROTHROMBIN TIME 31.6 seconds (11.9-14.5)
[2018-09-29 06:19] LABS: ANION GAP 9.8 mmol/L (8-16); BLOOD UREA NITROGEN 19 mg/dL (7-26); BUN/CREATININE RATIO 29 (6-25); CARBON DIOXIDE 33 mmol/L (22-29); CHLORIDE 98 mmol/L (98-107); CREATININE, SERUM 0.66 mg/dL (0.72-1.25); EST GLOMERULAR FILTRATION RATE > 60 ML/MIN (60-); GLUCOSE 127 mg/dL (74-118); POTASSIUM 3.8 mmol/L (3.5-5.1); SODIUM 137 mmol/L (136-145)
[2018-09-29] MEDS: TIOTROPIUM 18 MCG INH POWDER INH SCH (07:00)
[2018-09-29] MEDS: BUDESONIDE/FORMOTEROL 160/4.5MCG INHALER INH SCH ×2 (07:00→20:52)
--- NOTE | 2018-09-29 07:06 | NUR ---
RECEIVED PATIENT RESTING IN BED. RESPIRATIONS EVEN AND UNLABORED, NO ACUTE DISTRESS NOTED. NO S/S OF PAIN NOTED. CALL LIGHT WITHIN REACH. BED IN THE LOWEST POSITION.
[2018-09-29] MEDS: DULOXETINE HCL 20 MG DELAYED RELEASE PO SCH (08:33)
[2018-09-29] MEDS: METHYLPREDNISOLONE SOD SUCC 40 MG/ML VIAL 1ML IV SCH ×2 (08:33→16:38)
[2018-09-29] MEDS: LISINOPRIL 2.5 MG TAB PO SCH (08:33)
[2018-09-29] MEDS: LEVETIRACETAM 500 MG TAB PO SCH ×2 (08:33→16:39)
[2018-09-29] MEDS: SUCRALFATE 1 GM/10 ML SUSP NG SCH ×4 (08:33→20:41)
[2018-09-29] MEDS: CEFTRIAXONE SOD 1 GM/NS 50 ML 50 ML IV SCH (08:33)
[2018-09-29] MEDS: METOPROLOL TARTRATE 25 MG TAB PO SCH ×2 (08:33→16:39)
[2018-09-29] MEDS: CITALOPRAM HYDROBROMIDE 20 MG TAB PO SCH (08:33)
[2018-09-29] MEDS: FUROSEMIDE INJ 10 MG/ML 4 ML VIAL IV SCH (08:33)
[2018-09-29] MEDS: PANTOPRAZOLE SOD 40 MG TABEC PO SCH (08:33)
[2018-09-29] MEDS: CARVEDILOL 12.5 MG TAB PO SCH (08:33)
[2018-09-29] MEDS: LORAZEPAM 0.5 MG TAB PO SCH ×3 (08:33→20:41)
[2018-09-29] MEDS: POTASSIUM CHLORIDE 10MEQ EA PO SCH (08:33)
[2018-09-29] MEDS: ASPIRIN 81 MG CHEW TAB PO SCH (08:33)
[2018-09-29] MEDS: NICOTINE 21 MG/EA PATCH TOP SCH (08:34)
--- NOTE | 2018-09-29 12:58 | NUR ---
ORDERS FOR SNF TODAY FROM DR LAIRD PT IS GOING OUTSIDE ALONE SMOKING WALKING GREATER THAN 200 FEET WITHOUT ASSISTANCE NO SNF CRITERIA NOTE ON CHART FOR DR LAIRD PT NEEDS TO BE DISCHARGED BACK TO [facility] TO FOLLOW
[2018-09-29] MEDS: WARFARIN SOD 5 MG TAB PO SCH (16:38)
--- NOTE | 2018-09-29 19:00 | NUR ---
patient received awake, alert, lying quietly in bed. no c/o pain noted. respirations even and unlabored. 3l/nc in use. pm assessment complete. call madsen placed within reach. patient instructed to call for assistance when needed.
--- NOTE | 2018-09-29 19:10 | NUR ---
REPORT GIVEN TO ONCOMING NURSE, WALKING ROUNDS DONE. PATIENT IS RESTING IN BED. NO ACUTE DISTRESS NOTED. CALL LIGHT WITHIN REACH. BED IN THE LOWEST POSITION.
[2018-09-29] MEDS: QUETIAPINE FUMARATE 25 MG TAB PO SCH (20:41)
[2018-09-29] MEDS: LORATADINE 10 MG TAB PO SCH (20:41)
[2018-09-29] MEDS: ATORVASTATIN 20 MG TAB PO SCH (20:41)
[2018-09-29] MEDS: MIRTAZAPINE 15 MG TAB PO SCH (20:41)
[2018-09-29] MEDS: CLOPIDOGREL BISULFATE 75 MG TAB PO SCH (20:41)
[2018-09-29] MEDS: MONTELUKAST SODIUM 10 MG TAB PO SCH (20:41)
[2018-09-30] VITALS (8 sets, daily range): BP systolic 102–150; BP diastolic 58–91
--- NOTE | 2018-09-30 | NUR ---
patient appears to be resting quietly. no c/o pain noted at this time.
[2018-09-30] MEDS: ALBUTEROL/IPRATROPIUM 3 ML NEB NEB SCH ×5 (03:05→20:31)
[2018-09-30] MEDS: FAMOTIDINE 20 MG/2 ML VIAL IV SCH (05:33)
[2018-09-30] MEDS: GUAIFENESIN 200 MG/10 ML UDC PO SCH ×3 (05:33→21:06)
[2018-09-30 06:04] LABS: INR 2.72; PROTHROMBIN TIME 29.6 seconds (11.9-14.5)
[2018-09-30] MEDS: BUDESONIDE/FORMOTEROL 160/4.5MCG INHALER INH SCH ×2 (06:54→19:00)
--- NOTE | 2018-09-30 07:30 | NUR ---
Pt received in bed with eyes open. Aox4 and able to verbalize needs. Pt is able to ambulate with use of cane. Denies SOB and continuous on O2 3LNC. 0 s/s of acute distress noted.
[2018-09-30] MEDS: FUROSEMIDE INJ 10 MG/ML 4 ML VIAL IV SCH (08:42)
[2018-09-30] MEDS: PANTOPRAZOLE SOD 40 MG TABEC PO SCH (08:42)
[2018-09-30] MEDS: CEFTRIAXONE SOD 1 GM/NS 50 ML 50 ML IV SCH (08:42)
[2018-09-30] MEDS: LORAZEPAM 0.5 MG TAB PO SCH ×3 (08:42→21:06)
[2018-09-30] MEDS: METHYLPREDNISOLONE SOD SUCC 40 MG/ML VIAL 1ML IV SCH ×2 (08:42→17:22)
[2018-09-30] MEDS: CITALOPRAM HYDROBROMIDE 20 MG TAB PO SCH (08:43)
[2018-09-30] MEDS: DULOXETINE HCL 20 MG DELAYED RELEASE PO SCH (08:43)
[2018-09-30] MEDS: POTASSIUM CHLORIDE 10MEQ EA PO SCH (08:44)
[2018-09-30] MEDS: LISINOPRIL 2.5 MG TAB PO SCH (08:44)
[2018-09-30] MEDS: METOPROLOL TARTRATE 25 MG TAB PO SCH ×2 (08:44→17:22)
[2018-09-30] MEDS: LEVETIRACETAM 500 MG TAB PO SCH ×2 (08:44→17:22)
[2018-09-30] MEDS: NICOTINE 21 MG/EA PATCH TOP SCH (08:58)
[2018-09-30] MEDS: SUCRALFATE 1 GM/10 ML SUSP NG SCH ×4 (08:58→21:06)
--- NOTE | 2018-09-30 11:05 | NUR ---
WENT AND SPOKE WITH PT ABOUT SNF, HE REFUSED AND STATED HE IS HAPPY WHERE HE IS AND WANTS TO RETURN TO [place].
[2018-09-30] MEDS: NITROGLYCERIN 0.4 MG SUBL SL SCH ×4 (12:02→18:45)
--- NOTE | 2018-09-30 13:33 | NUR ---
CM SPOKE TO IVA FROM [facility] T[facility] REGARDING PATIENT PLAN OF CARE. UR INSURANCE REP, IVA, GIVEN CLINICAL OVER THE PHONE FOR YESTERDAY AND APPROVED PATIENT UP TO 09/29. SHE RECOMMENDS DISCHARGING PATIENT TODAY BECAUSE OF LACK OF MEDICAL NECESSITY FOR TODAY'S CLINICAL. CM GIVEN INSURANCE DISCHARGE CM NAME AND NUMBER FOR DISCHARGE PLANNING. CM REQUESTED RESOURCES FROM INSURANCE THAT COULD HELP WITH PATIENT OUT OF HOSPITAL. CM STATES TO CONTACT INSURANCE CM VAMP PRESSER FOR RESOURCES AFTER 2:00 PM. [facility] VAMP PRESSER: GABINO VALLEJO [phone] [facility] UR REP: IVA Gonzalez. [phone]
--- NOTE | 2018-09-30 13:49 | NUR ---
Pt complained of chest pain. Nitro administered BP 131/71 p-78 and pt states his pain has decreased. Dr. Snow here and made aware of chest pain no new orders received.
[2018-09-30] MEDS: TIOTROPIUM 18 MCG INH POWDER INH SCH (14:48)
[2018-09-30] MEDS: FAMOTIDINE 20 MG TAB PO SCH (17:21)
[2018-09-30] MEDS: WARFARIN SOD 5 MG TAB PO SCH (17:22)
--- NOTE | 2018-09-30 18:45 | NUR ---
Pt c/o chest pain and Nitrostat administered and pt also given xanax. Pt states chest pain has no chest pain any longer. Pt is now asking where vending machine is in order to go buy snacks.
[2018-09-30] MEDS: ALPRAZOLAM 0.25 MG TAB PO PRN (18:55)
--- NOTE | 2018-09-30 19:05 | NUR ---
Bedside rounds completed with morning nurse. Pt alert and orient to name. Lying in bed HOB 45 degrees. Denies pain at this time. tele #[address] Call madsen within reach. Will continue to monitor.
[2018-09-30 19:41] LABS: CREATINE KINASE 23 IU/L (30-200)
[2018-09-30] MEDS: ATORVASTATIN 20 MG TAB PO SCH (21:06)
[2018-09-30] MEDS: QUETIAPINE FUMARATE 25 MG TAB PO SCH (21:06)
[2018-09-30] MEDS: LORATADINE 10 MG TAB PO SCH (21:06)
[2018-09-30] MEDS: CLOPIDOGREL BISULFATE 75 MG TAB PO SCH (21:06)
[2018-09-30] MEDS: MIRTAZAPINE 15 MG TAB PO SCH (21:06)
[2018-09-30] MEDS: MONTELUKAST SODIUM 10 MG TAB PO SCH (21:06)
[2018-10-01] VITALS (8 sets, daily range): BP systolic 114–169; BP diastolic 69–88
[2018-10-01] MEDS: ALPRAZOLAM 0.25 MG TAB PO PRN (03:35)
--- NOTE | 2018-10-01 03:40 | NUR ---
Pt c/o sudden tightness of chest pain while sleeping. Placed hand over center of chest over sternum. Pain does not radiate. Pt rates pain as 8 on a scale of 0 to 10. BP 102/58, P 70 v-paced, RR 22. Xanax prn admin. O2 @ 3 L via NC. Continuous pulse oximetry with O2 sat. 97%. Stat 12-lead ECG and serum cardiac biomarkers obtained previously, no significant changes. Reassured pt. that he's being closely monitored, has tele #[address] Denies n/v, or SOB. Will continue to monitor. Call madsen within reach.
[2018-10-01] MEDS: ALBUTEROL/IPRATROPIUM 3 ML NEB NEB SCH ×6 (04:11→23:11)
[2018-10-01 05:58] LABS: BASOPHILS % 0.2 % (0.0-1.0); HEMATOCRIT 37.5 % (38.2-49.6); HEMOGLOBIN 11.4 g/dL (14.0-18.0); LYMPHOCYTES # (AUTO) 0.7 (1.0-3.2); LYMPHOCYTES % 4.4 % (18.0-39.1); MEAN CORPUSCULAR HEMOGLOBIN 26.7 pg (28-32); MEAN CORPUSCULAR HGB CONC 30.4 g/dL (31-35); MEAN CORPUSCULAR VOLUME 87.8 fL (81-99); MONOCYTES # (AUTO) 0.6 (0.2-0.8); MONOCYTES % 4.2 % (4.4-11.3); NEUTROPHILS # (AUTO) 13.6 (2.1-6.9); NEUTROPHILS % 89.9 % (38.7-80.0); PLATELET COUNT 284 x10e3/uL (140-360); RED BLOOD COUNT 4.27 x10e6/uL (4.3-5.7); RED CELL DISTRIBUTION WIDTH 14.7 % (11.7-14.4)
[2018-10-01] MEDS: GUAIFENESIN 200 MG/10 ML UDC PO SCH ×3 (06:00→21:47)
[2018-10-01 06:09] LABS: ANION GAP 8.5 mmol/L (8-16); BLOOD UREA NITROGEN 18 mg/dL (7-26); BUN/CREATININE RATIO 31 (6-25); CALCIUM 8.4 mg/dL (8.4-10.2); CARBON DIOXIDE 33 mmol/L (22-29); CHLORIDE 98 mmol/L (98-107); CREATININE, SERUM 0.58 mg/dL (0.72-1.25); EST GLOMERULAR FILTRATION RATE > 60 ML/MIN (60-); GLUCOSE 115 mg/dL (74-118); POTASSIUM 4.5 mmol/L (3.5-5.1); SODIUM 135 mmol/L (136-145)
--- NOTE | 2018-10-01 06:40 | NUR ---
Pt resting quietly with eyes closed. Resp even and unlabored. HOB 75 degrees. O2 @3L via NC. No acute distress noted. Call madsen within reach. Will continue to monitor.
[2018-10-01] MEDS: BUDESONIDE/FORMOTEROL 160/4.5MCG INHALER INH SCH ×2 (06:55→19:31)
[2018-10-01] MEDS: TIOTROPIUM 18 MCG INH POWDER INH SCH (06:55)
--- NOTE | 2018-10-01 07:45 | NUR ---
Pt in bed receiving breathing treatment at this time. 0 s/s of acute distress noted. Denies any pain at this time. aox4 and able to verbalize needs.
[2018-10-01] MEDS: METOPROLOL TARTRATE 25 MG TAB PO SCH ×2 (08:00→17:01)
[2018-10-01] MEDS: DULOXETINE HCL 20 MG DELAYED RELEASE PO SCH (08:00)
[2018-10-01] MEDS: PANTOPRAZOLE SOD 40 MG TABEC PO SCH (08:00)
[2018-10-01] MEDS: CITALOPRAM HYDROBROMIDE 20 MG TAB PO SCH (08:00)
[2018-10-01] MEDS: SUCRALFATE 1 GM/10 ML SUSP NG SCH ×4 (08:00→20:53)
[2018-10-01] MEDS: POTASSIUM CHLORIDE 10MEQ EA PO SCH (08:00)
[2018-10-01] MEDS: FAMOTIDINE 20 MG TAB PO SCH ×2 (08:00→17:00)
[2018-10-01] MEDS: LISINOPRIL 2.5 MG TAB PO SCH (08:00)
[2018-10-01] MEDS: FUROSEMIDE INJ 10 MG/ML 4 ML VIAL IV SCH (08:00)
[2018-10-01] MEDS: NICOTINE 21 MG/EA PATCH TOP SCH (08:00)
[2018-10-01] MEDS: LEVETIRACETAM 500 MG TAB PO SCH ×2 (08:00→17:00)
[2018-10-01] MEDS: LORAZEPAM 0.5 MG TAB PO SCH ×3 (09:00→20:53)
[2018-10-01 09:13] LABS: INR 3.27; PROTHROMBIN TIME 34.1 seconds (11.9-14.5)
[2018-10-01] MEDS: LEVOFLOXACIN 500 MG TAB PO SCH (10:54)
[2018-10-01] MEDS: ACETAMINOPHEN/CODEINE 300MG - 30MG TAB PO PRN ×2 (14:52→20:40)
--- NOTE | 2018-10-01 15:07 | NUR ---
Nutrition Screen Note RD Recommendation for Physician: Continue diet as ordered Plan of Care: RD following, monitoring for tolerance and adequacy Nutrition reason for involvement: Follow up Primary Diagnose(s): COPD with acute exacerbation, hypoxemia PMH: CAD, atrial fibrillation Ht:72 in Wt:192.06lb; 197lb BMI:26 kg/m2 IBW:178lb RD Assessment: (10/01/2018) Visited pt in the room. Pt reported good appetite with 75 100 % recorded PO intake. No complains or nausea or vomiting. LBM 09/30. Pt denied any chewing or swallowing difficulty. No further nutrition intervention is needed at this time. Please consult if needed. (09/27/2018) Chart reviewed. Labs and meds reviewed. Pt is on Warfarin Initial encounter with patient. Pt denies any difficulty chewing or swallowing. 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 Denies N,V,D. Normal BM. No wt changes. Current Diet: Cardiac Malnutrition Evaluation (09/27/2018) The patient does not meet criteria for a specified degree of malnutrition at this time. Will re-evaluate at follow-up as appropriate. Diet Education Needs Assessment: Diet education not indicated. Nutrition Care Level: Low Signed: Winnie Wisdom, MS, RD, LD
--- NOTE | 2018-10-01 17:13 | NUR ---
WOUND CARE PUP SCREEN Saman Score: 21 PUP: Conservative LOS: 6 days Age: 62 [employer] HOB = 30 Degrees Patient Position: Back PATIENT VISIT / SKIN CHECK: No Pressure Ulcers Identified. Ambulates with Cane. RECOMMENDATION: - Continue Conservative PUP Addendum: 10/01/18 at 1713 by Murray Turpin RN Amended: Links added.
--- NOTE | 2018-10-01 18:30 | NUR ---
Pt in bed. Aox4 and able to verbalize needs. Pt denies any pain at this time. Denies SOB, continues on O2 3L/NC.
--- NOTE | 2018-10-01 19:20 | NUR ---
Rounds completed with morning nurse. Pt alert and orient to name. Lying in bed HOB 45 degrees. Denies pain at this time. tele #[address] Call madsen within reach. Will continue to monitor.
[2018-10-01] MEDS: CLOPIDOGREL BISULFATE 75 MG TAB PO SCH (20:53)
[2018-10-01] MEDS: LORATADINE 10 MG TAB PO SCH (20:53)
[2018-10-01] MEDS: QUETIAPINE FUMARATE 25 MG TAB PO SCH (20:53)
[2018-10-01] MEDS: ATORVASTATIN 20 MG TAB PO SCH (20:53)
[2018-10-01] MEDS: MIRTAZAPINE 15 MG TAB PO SCH (20:53)
[2018-10-01] MEDS: MONTELUKAST SODIUM 10 MG TAB PO SCH (20:53)
[2018-10-02] VITALS (9 sets, daily range): BP systolic 85–110; BP diastolic 54–80
[2018-10-02] MEDS: ALBUTEROL/IPRATROPIUM 3 ML NEB NEB SCH ×6 (02:20→23:05)
[2018-10-02] MEDS: ALPRAZOLAM 0.25 MG TAB PO PRN ×2 (02:50→18:45)
[2018-10-02 05:27] LABS: BASOPHILS # (AUTO) 0.1 (0.0-0.1); BASOPHILS % 0.2 % (0.0-1.0); HEMATOCRIT 36.4 % (38.2-49.6); HEMOGLOBIN 11.3 g/dL (14.0-18.0); LYMPHOCYTES # (AUTO) 1.5 (1.0-3.2); LYMPHOCYTES % 5.1 % (18.0-39.1); MEAN CORPUSCULAR VOLUME 86.9 fL (81-99); MONOCYTES # (AUTO) 1.7 (0.2-0.8); MONOCYTES % 5.9 % (4.4-11.3); NEUTROPHILS # (AUTO) 25.7 (2.1-6.9); PLATELET COUNT 287 x10e3/uL (140-360); RED BLOOD COUNT 4.19 x10e6/uL (4.3-5.7); RED CELL DISTRIBUTION WIDTH 14.8 % (11.7-14.4)
[2018-10-02 05:49] LABS: INR 2.37; PROTHROMBIN TIME 26.6 seconds (11.9-14.5)
[2018-10-02 05:56] LABS: ANION GAP 7.5 mmol/L (8-16); BLOOD UREA NITROGEN 20 mg/dL (7-26); BUN/CREATININE RATIO 33 (6-25); CALCIUM 8.4 mg/dL (8.4-10.2); CARBON DIOXIDE 34 mmol/L (22-29); CHLORIDE 98 mmol/L (98-107); CREATININE, SERUM 0.61 mg/dL (0.72-1.25); EST GLOMERULAR FILTRATION RATE > 60 ML/MIN (60-); GLUCOSE 91 mg/dL (74-118); POTASSIUM 4.5 mmol/L (3.5-5.1); SODIUM 135 mmol/L (136-145)
[2018-10-02] MEDS: GUAIFENESIN 200 MG/10 ML UDC PO SCH ×3 (06:00→21:54)
[2018-10-02] MEDS: TIOTROPIUM 18 MCG INH POWDER INH SCH (06:55)
--- NOTE | 2018-10-02 07:04 | NUR ---
RECEIVED PATIENT RESTING IN BED. NO ACUTE DISTRESS NOTED. NO S/S OF PAIN OR DISCOMFORT NOTED. CALL LIGHT WITHIN REACH. BED IN THE LOWEST POSITION.
--- NOTE | 2018-10-02 07:22 | NUR ---
Report given to morning nurse. Pt alert and orient to name., lying in bed, HOB 60 degrees. O2 @3L via NC. Denies pain or discomfort. No acute distress noted.
[2018-10-02] MEDS: FAMOTIDINE 20 MG TAB PO SCH ×2 (08:59→16:25)
[2018-10-02] MEDS: SUCRALFATE 1 GM/10 ML SUSP NG SCH ×4 (08:59→21:53)
[2018-10-02] MEDS: PANTOPRAZOLE SOD 40 MG TABEC PO SCH (08:59)
[2018-10-02] MEDS: LEVOFLOXACIN 500 MG TAB PO SCH (08:59)
[2018-10-02] MEDS: CITALOPRAM HYDROBROMIDE 20 MG TAB PO SCH (09:07)
[2018-10-02] MEDS: NICOTINE 21 MG/EA PATCH TOP SCH (09:07)
[2018-10-02] MEDS: LORAZEPAM 0.5 MG TAB PO SCH ×3 (09:07→21:53)
[2018-10-02] MEDS: LISINOPRIL 2.5 MG TAB PO SCH (09:07)
[2018-10-02] MEDS: DULOXETINE HCL 20 MG DELAYED RELEASE PO SCH (09:07)
[2018-10-02] MEDS: POTASSIUM CHLORIDE 10MEQ EA PO SCH (09:07)
[2018-10-02] MEDS: METOPROLOL TARTRATE 25 MG TAB PO SCH ×2 (09:07→16:26)
[2018-10-02] MEDS: LEVETIRACETAM 500 MG TAB PO SCH ×2 (09:07→16:26)
--- NOTE | 2018-10-02 09:45 | NUR ---
PER [place], BOAT DRIVER RESUME COUMADIN ORDERED.
[2018-10-02] MEDS: FUROSEMIDE 40 MG TAB PO SCH (10:07)
[2018-10-02] MEDS: BUDESONIDE/FORMOTEROL 160/4.5MCG INHALER INH SCH ×2 (12:14→19:00)
[2018-10-02 13:40] LABS: LYMPHOCYTES % (MANUAL) 11 % (19-48); MONOCYTES % (MANUAL) 2 % (3.4-9.0); NEUTROPHILS % (MANUAL) 86 % (40-74)
[2018-10-02 13:41] LABS: ANISOCYTOSIS SLIGHT; HYPOCHROMASIA SLIG; PLATELET ESTIMATE ADEQUATE; PLATELET MORPHOLOGY COMMENT NORMAL; RBC MORPHOLOGY COMMENT NORMAL
[2018-10-02] MEDS ORDERED: CEFEPIME 1GM/NS 0.9% 50 ML 50 ML IV SCH (14:45)
[2018-10-02] MEDS: ACETAMINOPHEN/CODEINE 300MG - 30MG TAB PO PRN (15:23)
[2018-10-02] MEDS ORDERED: METRONIDAZOLE 500MG/NS 100ML 100 ML IV SCH (16:00)
[2018-10-02] MEDS: VANCOMYCIN 250MG/5ML ORAL SOLN PO SCH ×2 (16:25→21:54)
[2018-10-02] MEDS ORDERED: WARFARIN SOD 5 MG TAB PO SCH (17:00)
--- NOTE | 2018-10-02 19:24 | NUR ---
REPORT GIVEN TO ONCOMING NURSE, WALKING ROUNDS DONE. PATIENT IS RESTING IN BED. NO ACUTE DISTRESS NOTED. CALL LIGHT WITHIN REACH. BED IN THE LOWEST POSITION.
--- NOTE | 2018-10-02 19:36 | NUR ---
PT IS RESTING IN BED. NO RESPIRATORY DISTRESS NOTED. BED IN THE LOWEST POSITION, LOCKED, AND CALL LIGHT WITHIN REACH. WILL CONTINUE TO MONITOR.
--- NOTE | 2018-10-02 20:13 | NUR ---
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 WILL CONTINUE TO MONITOR.
--- NOTE | 2018-10-02 21:30 | Diagnostic Imaging Report ---
EXAMINATION: CHEST 2 VIEWS INDICATION: ^pneumonia ^[id number] ^2100 COMPARISON: CT chest 09/26/2018, chest x-ray 09/24/2018 FINDINGS: PA and lateral views TUBES and LINES: Dual-lead pacemaker is stable in position. Right PICC line terminates in the SVC. LUNGS: Diffuse hyperinflation consistent with emphysema. Patchy airspace opacity in the lateral right lung base is stable and may be secondary to scarring. No interstitial edema. No new pulmonary findings. PLEURA: Blunting of the right lateral costophrenic angle is stable. No pneumothorax. HEART AND MEDIASTINUM: Stable cardiomegaly. BONES AND SOFT TISSUES: No focal osseous lesions. Soft tissues are unremarkable. UPPER ABDOMEN: No free air under the diaphragm. IMPRESSION: Stable right basilar scarring. Right lateral costophrenic angle blunting is stable and may be due to effusion or pleural thickening. No new cardiopulmonary process. Signed by: Dr. Lisa Palma MD on 10/02/2018 9:27 PM
[2018-10-02] MEDS ORDERED: SODIUM CHLORIDE 0.9% 250ML 250 ML ONE (21:49)
[2018-10-02] MEDS: CEFEPIME 1GM/NS 0.9% 50 ML 50 ML IV SCH (21:53)
[2018-10-02] MEDS: ATORVASTATIN 20 MG TAB PO SCH (21:54)
[2018-10-02] MEDS: MIRTAZAPINE 15 MG TAB PO SCH (21:54)
[2018-10-02] MEDS: CLOPIDOGREL BISULFATE 75 MG TAB PO SCH (21:54)
[2018-10-02] MEDS: MONTELUKAST SODIUM 10 MG TAB PO SCH (21:54)
[2018-10-02] MEDS: LORATADINE 10 MG TAB PO SCH (21:54)
[2018-10-02] MEDS: QUETIAPINE FUMARATE 25 MG TAB PO SCH (21:54)
[2018-10-02] MEDS: METRONIDAZOLE 500MG/NS 100ML 100 ML IV SCH (22:37)
[2018-10-03] VITALS (9 sets, daily range): BP systolic 90–122; BP diastolic 55–76
[2018-10-03] MEDS: ALBUTEROL/IPRATROPIUM 3 ML NEB NEB SCH ×6 (01:15→23:20)
[2018-10-03] MEDS: METRONIDAZOLE 500MG/NS 100ML 100 ML IV SCH ×3 (04:17→21:37)
[2018-10-03] MEDS: ACETAMINOPHEN/CODEINE 300MG - 30MG TAB PO PRN ×3 (04:18→18:35)
[2018-10-03] MEDS: GUAIFENESIN 200 MG/10 ML UDC PO SCH ×3 (05:45→21:02)
[2018-10-03] MEDS: VANCOMYCIN 250MG/5ML ORAL SOLN PO SCH ×3 (05:45→21:02)
[2018-10-03] MEDS: TIOTROPIUM 18 MCG INH POWDER INH SCH (06:00)
[2018-10-03 06:42] LABS: BASOPHILS # (AUTO) 0.1 (0.0-0.1); BASOPHILS % 0.2 % (0.0-1.0); EOSINOPHILS % 0.1 % (0.0-6.0); HEMATOCRIT 34.5 % (38.2-49.6); HEMOGLOBIN 10.4 g/dL (14.0-18.0); LYMPHOCYTES # (AUTO) 1.5 (1.0-3.2); LYMPHOCYTES % 5.8 % (18.0-39.1); MEAN CORPUSCULAR HEMOGLOBIN 26.6 pg (28-32); MEAN CORPUSCULAR HGB CONC 30.1 g/dL (31-35); MEAN CORPUSCULAR VOLUME 88.2 fL (81-99); MONOCYTES # (AUTO) 2.1 (0.2-0.8); MONOCYTES % 7.9 % (4.4-11.3); NEUTROPHILS # (AUTO) 21.9 (2.1-6.9); NEUTROPHILS % 84.2 % (38.7-80.0); PLATELET COUNT 232 x10e3/uL (140-360); RED BLOOD COUNT 3.91 x10e6/uL (4.3-5.7); RED CELL DISTRIBUTION WIDTH 14.7 % (11.7-14.4)
[2018-10-03 06:48] LABS: ANION GAP 8.2 mmol/L (8-16); BLOOD UREA NITROGEN 18 mg/dL (7-26); BUN/CREATININE RATIO 30 (6-25); CALCIUM 7.9 mg/dL (8.4-10.2); CARBON DIOXIDE 36 mmol/L (22-29); CHLORIDE 92 mmol/L (98-107); EST GLOMERULAR FILTRATION RATE > 60 ML/MIN (60-); GLUCOSE 82 mg/dL (74-118); POTASSIUM 4.2 mmol/L (3.5-5.1); SODIUM 132 mmol/L (136-145)
--- NOTE | 2018-10-03 06:54 | NUR ---
RECEIVED PATIENT RESTING IN BED. NO ACUTE DISTRESS NOTED, DENIES PAIN OR DISCOMFORT AT THIS TIME. CALL LIGHT WITHIN REACH. BED IN THE LOWEST POSITION.
[2018-10-03] MEDS: BUDESONIDE/FORMOTEROL 160/4.5MCG INHALER INH SCH ×2 (07:11→19:25)
[2018-10-03] MEDS: LISINOPRIL 2.5 MG TAB PO SCH (07:59)
[2018-10-03] MEDS: METOPROLOL TARTRATE 25 MG TAB PO SCH ×2 (07:59→16:20)
[2018-10-03] MEDS: DULOXETINE HCL 20 MG DELAYED RELEASE PO SCH (08:29)
[2018-10-03] MEDS: PANTOPRAZOLE SOD 40 MG TABEC PO SCH (08:29)
[2018-10-03] MEDS: FAMOTIDINE 20 MG TAB PO SCH ×2 (08:29→16:19)
[2018-10-03] MEDS: LORAZEPAM 0.5 MG TAB PO SCH ×3 (08:29→20:35)
[2018-10-03] MEDS: SUCRALFATE 1 GM/10 ML SUSP NG SCH ×4 (08:29→20:35)
[2018-10-03] MEDS: NICOTINE 21 MG/EA PATCH TOP SCH (08:29)
[2018-10-03] MEDS: CITALOPRAM HYDROBROMIDE 20 MG TAB PO SCH (08:29)
[2018-10-03] MEDS: POTASSIUM CHLORIDE 10MEQ EA PO SCH (08:29)
[2018-10-03] MEDS: LEVETIRACETAM 500 MG TAB PO SCH ×2 (08:29→16:20)
[2018-10-03] MEDS: CEFEPIME 1GM/NS 0.9% 50 ML 50 ML IV SCH ×2 (08:29→20:35)
[2018-10-03] MEDS: FUROSEMIDE 40 MG TAB PO SCH (08:29)
[2018-10-03 12:40] LABS: INR 1.89; PROTHROMBIN TIME 22.4 seconds (11.9-14.5)
[2018-10-03] MEDS: WARFARIN SOD 2 MG TAB PO SCH (16:19)
--- NOTE | 2018-10-03 19:02 | NUR ---
REPORT GIVEN TO ONCOMING NURSE, PATIENT IS RESTING IN BED. NO ACUTE DISTRESS NOTED. NO S/S OF PAIN NOTED. CALL LIGHT WITHIN REACH. BED IN THE LOWEST POSITION.
--- NOTE | 2018-10-03 19:15 | NUR ---
PT IS RESTING IN BED. NO RESPIRATORY DISTRESS NOTED. BED IN THE LOWEST POSITION, LOCKED, AND CALL LIGHT WITHIN REACH. WILL CONTINUE TO MONITOR.
[2018-10-03] MEDS: ATORVASTATIN 20 MG TAB PO SCH (20:35)
[2018-10-03] MEDS: MIRTAZAPINE 15 MG TAB PO SCH (20:35)
[2018-10-03] MEDS: CLOPIDOGREL BISULFATE 75 MG TAB PO SCH (20:35)
[2018-10-03] MEDS: MONTELUKAST SODIUM 10 MG TAB PO SCH (20:35)
[2018-10-03] MEDS: QUETIAPINE FUMARATE 25 MG TAB PO SCH (20:35)
[2018-10-03] MEDS: LORATADINE 10 MG TAB PO SCH (20:35)
[2018-10-04] VITALS (8 sets, daily range): BP systolic 98–185; BP diastolic 60–72
[2018-10-04] MEDS: ALBUTEROL/IPRATROPIUM 3 ML NEB NEB SCH ×5 (03:05→20:15)
[2018-10-04] MEDS: ACETAMINOPHEN/CODEINE 300MG - 30MG TAB PO PRN ×3 (03:16→16:39)
[2018-10-04] MEDS: METRONIDAZOLE 500MG/NS 100ML 100 ML IV SCH ×3 (05:05→21:04)
[2018-10-04] MEDS: GUAIFENESIN 200 MG/10 ML UDC PO SCH ×3 (05:05→21:04)
[2018-10-04] MEDS: VANCOMYCIN 250MG/5ML ORAL SOLN PO SCH ×3 (05:05→21:04)
[2018-10-04 06:23] LABS: BASOPHILS % 0.1 % (0.0-1.0); EOSINOPHILS # (AUTO) 0.1 (0.0-0.4); EOSINOPHILS % 0.5 % (0.0-6.0); HEMATOCRIT 34.5 % (38.2-49.6); HEMOGLOBIN 10.6 g/dL (14.0-18.0); LYMPHOCYTES # (AUTO) 0.8 (1.0-3.2); LYMPHOCYTES % 3.6 % (18.0-39.1); MEAN CORPUSCULAR HEMOGLOBIN 26.8 pg (28-32); MEAN CORPUSCULAR HGB CONC 30.7 g/dL (31-35); MEAN CORPUSCULAR VOLUME 87.3 fL (81-99); MONOCYTES # (AUTO) 1.4 (0.2-0.8); MONOCYTES % 6.1 % (4.4-11.3); NEUTROPHILS # (AUTO) 20.1 (2.1-6.9); PLATELET COUNT 193 x10e3/uL (140-360); RED BLOOD COUNT 3.95 x10e6/uL (4.3-5.7); RED CELL DISTRIBUTION WIDTH 14.6 % (11.7-14.4)
[2018-10-04 06:43] LABS: BLOOD UREA NITROGEN 13 mg/dL (7-26); BUN/CREATININE RATIO 22 (6-25); CARBON DIOXIDE 32 mmol/L (22-29); CHLORIDE 94 mmol/L (98-107); CREATININE, SERUM 0.58 mg/dL (0.72-1.25); EST GLOMERULAR FILTRATION RATE > 60 ML/MIN (60-); GLUCOSE 106 mg/dL (74-118); SODIUM 131 mmol/L (136-145)
[2018-10-04] MEDS: TIOTROPIUM 18 MCG INH POWDER INH SCH (06:48)
[2018-10-04] MEDS: BUDESONIDE/FORMOTEROL 160/4.5MCG INHALER INH SCH ×2 (06:48→20:15)
--- NOTE | 2018-10-04 06:49 | NUR ---
RECEIVED PATIENT RESTING IN BED. NO ACUTE DISTRESS NOTED. NO S/S OF PAIN NOTED. CALL LIGHT WITHIN REACH. BED IN THE LOWEST POSITION.
[2018-10-04 07:27] LABS: INR 2.24; PROTHROMBIN TIME 25.5 seconds (11.9-14.5)
[2018-10-04 07:35] LABS: LYMPHOCYTES % (MANUAL) 5 % (19-48); MONOCYTES % (MANUAL) 7 % (3.4-9.0); NEUTROPHILS % (MANUAL) 88 % (40-74)
[2018-10-04] MEDS: FAMOTIDINE 20 MG TAB PO SCH ×2 (08:34→16:38)
[2018-10-04] MEDS: LEVETIRACETAM 500 MG TAB PO SCH ×2 (08:34→16:39)
[2018-10-04] MEDS: SUCRALFATE 1 GM/10 ML SUSP NG SCH ×4 (08:34→20:11)
[2018-10-04] MEDS: CITALOPRAM HYDROBROMIDE 20 MG TAB PO SCH (08:34)
[2018-10-04] MEDS: FUROSEMIDE 40 MG TAB PO SCH (08:34)
[2018-10-04] MEDS: PANTOPRAZOLE SOD 40 MG TABEC PO SCH (08:34)
[2018-10-04] MEDS: NICOTINE 21 MG/EA PATCH TOP SCH (08:34)
[2018-10-04] MEDS: CEFEPIME 1GM/NS 0.9% 50 ML 50 ML IV SCH ×2 (08:34→20:11)
[2018-10-04] MEDS: DULOXETINE HCL 20 MG DELAYED RELEASE PO SCH (08:34)
[2018-10-04] MEDS: LORAZEPAM 0.5 MG TAB PO SCH ×3 (08:34→20:11)
[2018-10-04] MEDS: POTASSIUM CHLORIDE 10MEQ EA PO SCH (08:34)
[2018-10-04] MEDS: METOPROLOL TARTRATE 25 MG TAB PO SCH ×2 (08:38→16:39)
--- NOTE | 2018-10-04 09:54 | NUR ---
DR. Stacey HAWKINS NOTIFIED OF TODAY'S PT/INR, NO NEW ORDERS RECEIVED.
--- NOTE | 2018-10-04 10:00 | NUR ---
PATIENT'S TELEMETRY DCD BY DR. Stacey HAWKINS AT THIS TIME.
[2018-10-04] MEDS: WARFARIN SOD 2 MG TAB PO SCH (16:39)
--- NOTE | 2018-10-04 17:10 | NUR ---
Visit made by the Spiritual Care Department Pastoral Visitor, Roger Alvarado. PV provided pastoral presence, hospitality, and supportive listening. Pastoral Visitor informed pt/family of the scope of Account Resolution Analyst Services and availability. BRYCE EDGE Water Supervisor Spiritual Care Department O: [phone] Pager: [phone] ([phone] calling from)
--- NOTE | 2018-10-04 18:54 | NUR ---
REPORT GIVEN TO ONCOMING NURSE, WALKING ROUNDS DONE. PATIENT IS RESTING IN BED. RESPIRATIONS EVEN AND UNLABORED, NO ACUTE DISTRESS NOTED. NO S/S OF PAIN OR DISCOMFORT NOTED AT THIS TIME. CALL LIGHT WITHIN REACH. BED IN THE LOWEST POSITION.
--- NOTE | 2018-10-04 18:56 | NUR ---
PT IS RESTING IN BED. NO RESPIRATORY DISTRESS NOTED. BED IN THE LOWEST POSITION, LOCKED, AND CALL LIGHT WITHIN REACH. WILL CONTINUE TO MONITOR.
[2018-10-04] MEDS: ATORVASTATIN 20 MG TAB PO SCH (20:11)
[2018-10-04] MEDS: LORATADINE 10 MG TAB PO SCH (20:11)
[2018-10-04] MEDS: MONTELUKAST SODIUM 10 MG TAB PO SCH (20:11)
[2018-10-04] MEDS: QUETIAPINE FUMARATE 25 MG TAB PO SCH (20:11)
[2018-10-04] MEDS: CLOPIDOGREL BISULFATE 75 MG TAB PO SCH (20:11)
[2018-10-04] MEDS: MIRTAZAPINE 15 MG TAB PO SCH (20:11)
[2018-10-05] VITALS (8 sets, daily range): BP systolic 92–142; BP diastolic 40–80
[2018-10-05] MEDS: ALBUTEROL/IPRATROPIUM 3 ML NEB NEB SCH ×6 (03:00→19:45)
[2018-10-05] MEDS: ACETAMINOPHEN/CODEINE 300MG - 30MG TAB PO PRN (05:23)
[2018-10-05] MEDS: METRONIDAZOLE 500MG/NS 100ML 100 ML IV SCH ×3 (05:23→20:17)
[2018-10-05] MEDS: VANCOMYCIN 250MG/5ML ORAL SOLN PO SCH ×3 (05:23→21:15)
[2018-10-05] MEDS: GUAIFENESIN 200 MG/10 ML UDC PO SCH ×3 (05:23→21:15)
[2018-10-05] MEDS: TIOTROPIUM 18 MCG INH POWDER INH SCH (07:00)
[2018-10-05] MEDS: BUDESONIDE/FORMOTEROL 160/4.5MCG INHALER INH SCH ×2 (07:00→19:45)
[2018-10-05 07:19] LABS: INR 2.79; PROTHROMBIN TIME 30.2 seconds (11.9-14.5)
[2018-10-05] MEDS: SUCRALFATE 1 GM/10 ML SUSP NG SCH ×4 (07:30→20:18)
[2018-10-05] MEDS: FAMOTIDINE 20 MG TAB PO SCH ×2 (07:30→17:34)
[2018-10-05] MEDS: ACETAMINOPHEN 325 MG TAB PO PRN (07:45)
[2018-10-05] MEDS: PANTOPRAZOLE SOD 40 MG TABEC PO SCH (07:48)
[2018-10-05] MEDS: LORAZEPAM 0.5 MG TAB PO SCH ×3 (07:49→20:18)
[2018-10-05] MEDS: CEFEPIME 1GM/NS 0.9% 50 ML 50 ML IV SCH ×2 (07:49→20:00)
[2018-10-05] MEDS: LEVETIRACETAM 500 MG TAB PO SCH ×2 (07:50→17:34)
[2018-10-05] MEDS: FUROSEMIDE 40 MG TAB PO SCH (07:50)
[2018-10-05] MEDS: DULOXETINE HCL 20 MG DELAYED RELEASE PO SCH (07:51)
[2018-10-05] MEDS: POTASSIUM CHLORIDE 10MEQ EA PO SCH (07:52)
[2018-10-05] MEDS: NICOTINE 21 MG/EA PATCH TOP SCH (07:53)
[2018-10-05] MEDS: CITALOPRAM HYDROBROMIDE 20 MG TAB PO SCH (07:54)
[2018-10-05] MEDS ORDERED: DICLOFENAC SOD 1% GEL 100 GM TUBE TP PRN (10:45)
[2018-10-05] MEDS ORDERED: SODIUM CHLORIDE 0.9% 250ML 250 ML ONE (12:43)
[2018-10-05] MEDS: WARFARIN SOD 2 MG TAB PO SCH (17:37)
--- NOTE | 2018-10-05 19:00 | NUR ---
patient received awake, alert, lying quietly in bed. no c/o pain noted. 3l/nc in use. respirations even and unlabored. pm assessment complete. patient instructed to call for assistance when needed.
--- NOTE | 2018-10-05 19:19 | NUR ---
Bedside change of shift report given to RACHEL Muniz. Pt is AAOX3, resp even and unlabored on 3L NC. Pt is in no acute distress noted, denies pain at this time.
[2018-10-05] MEDS: MIRTAZAPINE 15 MG TAB PO SCH (20:18)
[2018-10-05] MEDS: LORATADINE 10 MG TAB PO SCH (20:18)
[2018-10-05] MEDS: MONTELUKAST SODIUM 10 MG TAB PO SCH (20:18)
[2018-10-05] MEDS: CLOPIDOGREL BISULFATE 75 MG TAB PO SCH (20:18)
[2018-10-05] MEDS: QUETIAPINE FUMARATE 25 MG TAB PO SCH (20:18)
[2018-10-05] MEDS: ATORVASTATIN 20 MG TAB PO SCH (20:18)
[2018-10-06] VITALS (8 sets, daily range): BP systolic 95–126; BP diastolic 58–70
[2018-10-06] MEDS: ALBUTEROL/IPRATROPIUM 3 ML NEB NEB SCH ×8 (00:30→23:45)
[2018-10-06] MEDS: METRONIDAZOLE 500MG/NS 100ML 100 ML IV SCH (05:00)
[2018-10-06] MEDS: VANCOMYCIN 250MG/5ML ORAL SOLN PO SCH ×3 (06:00→21:50)
[2018-10-06] MEDS: GUAIFENESIN 200 MG/10 ML UDC PO SCH ×3 (06:00→21:50)
[2018-10-06 07:13] LABS: INR 2.64; PROTHROMBIN TIME 28.9 seconds (11.9-14.5)
--- NOTE | 2018-10-06 07:30 | NUR ---
Received patient aaox3, on o2 via NC running at 3l/min. no s/s of distress. R upper PICC line double lumen dry and intact dressing to it. walker at the bedside. non-skid socks on. side rails up x2, call madsen within reach, and bed in lowest position.
[2018-10-06 07:31] LABS: ANION GAP 8.2 mmol/L (8-16); BLOOD UREA NITROGEN 8 mg/dL (7-26); BUN/CREATININE RATIO 14 (6-25); CALCIUM 8.3 mg/dL (8.4-10.2); CARBON DIOXIDE 32 mmol/L (22-29); CHLORIDE 101 mmol/L (98-107); CREATININE, SERUM 0.57 mg/dL (0.72-1.25); EST GLOMERULAR FILTRATION RATE > 60 ML/MIN (60-); GLUCOSE 98 mg/dL (74-118); POTASSIUM 4.2 mmol/L (3.5-5.1); SODIUM 137 mmol/L (136-145)
[2018-10-06] MEDS: BUDESONIDE/FORMOTEROL 160/4.5MCG INHALER INH SCH ×2 (07:40→19:15)
--- NOTE | 2018-10-06 08:00 | NUR ---
Patient refused to shower.
[2018-10-06 08:01] LABS: BASOPHILS % 0.1 % (0.0-1.0); EOSINOPHILS # (AUTO) 0.1 (0.0-0.4); EOSINOPHILS % 0.8 % (0.0-6.0); HEMATOCRIT 31.9 % (38.2-49.6); HEMOGLOBIN 9.8 g/dL (14.0-18.0); LYMPHOCYTES # (AUTO) 1.1 (1.0-3.2); LYMPHOCYTES % 7.3 % (18.0-39.1); MEAN CORPUSCULAR HEMOGLOBIN 27.3 pg (28-32); MEAN CORPUSCULAR HGB CONC 30.7 g/dL (31-35); MEAN CORPUSCULAR VOLUME 88.9 fL (81-99); MONOCYTES # (AUTO) 1.7 (0.2-0.8); MONOCYTES % 11.5 % (4.4-11.3); NEUTROPHILS # (AUTO) 11.5 (2.1-6.9); NEUTROPHILS % 79.2 % (38.7-80.0); PLATELET COUNT 203 x10e3/uL (140-360); RED BLOOD COUNT 3.59 x10e6/uL (4.3-5.7); RED CELL DISTRIBUTION WIDTH 15.2 % (11.7-14.4)
[2018-10-06] MEDS: SUCRALFATE 1 GM/10 ML SUSP NG SCH ×4 (08:31→20:40)
[2018-10-06] MEDS: FAMOTIDINE 20 MG TAB PO SCH ×2 (08:32→17:00)
[2018-10-06] MEDS: PANTOPRAZOLE SOD 40 MG TABEC PO SCH (08:33)
[2018-10-06] MEDS: DULOXETINE HCL 20 MG DELAYED RELEASE PO SCH (08:33)
[2018-10-06] MEDS: CITALOPRAM HYDROBROMIDE 20 MG TAB PO SCH (08:33)
[2018-10-06] MEDS: CEFEPIME 1GM/NS 0.9% 50 ML 50 ML IV SCH ×2 (08:33→20:00)
[2018-10-06] MEDS: LORAZEPAM 0.5 MG TAB PO SCH ×3 (08:33→20:40)
[2018-10-06] MEDS: FUROSEMIDE 40 MG TAB PO SCH (08:34)
[2018-10-06] MEDS: LEVETIRACETAM 500 MG TAB PO SCH ×2 (08:34→18:13)
[2018-10-06] MEDS: POTASSIUM CHLORIDE 10MEQ EA PO SCH (08:34)
[2018-10-06] MEDS: NICOTINE 21 MG/EA PATCH TOP SCH (08:42)
--- NOTE | 2018-10-06 10:00 | NUR ---
Asked patient if wanted to shower. Patient refused to shower.
[2018-10-06 11:08] LABS: EOSINOPHILS % (MANUAL) 1 % (0-7); LYMPHOCYTES % (MANUAL) 12 % (19-48); MONOCYTES % (MANUAL) 6 % (3.4-9.0); NEUTROPHILS % (MANUAL) 81 % (40-74)
[2018-10-06 11:09] LABS: HYPOCHROMASIA SLIGHT; PLATELET ESTIMATE ADEQUATE; PLATELET MORPHOLOGY COMMENT NORMAL; RBC MORPHOLOGY COMMENT NORMAL
--- NOTE | 2018-10-06 13:30 | NUR ---
Patient requested breathing treatment. Notified RT.
[2018-10-06] MEDS: TIOTROPIUM 18 MCG INH POWDER INH SCH (14:07)
[2018-10-06] MEDS: WARFARIN SOD 2 MG TAB PO SCH (18:13)
--- NOTE | 2018-10-06 18:45 | NUR ---
Patient is laying down with no s/s of distress and o2 running at 3l/min. Side rails up x2, call madsen within reach, and bed in the lowest position.
--- NOTE | 2018-10-06 19:00 | NUR ---
patient received awake, alert, lying quietly in bed. respirations even and unlabored. 02/3l/nc in use. pm assessment complete. patient instructed to call for assistance when needed.
[2018-10-06] MEDS: MONTELUKAST SODIUM 10 MG TAB PO SCH (20:40)
[2018-10-06] MEDS: LORATADINE 10 MG TAB PO SCH (20:40)
[2018-10-06] MEDS: ATORVASTATIN 20 MG TAB PO SCH (20:40)
[2018-10-06] MEDS: MIRTAZAPINE 15 MG TAB PO SCH (20:40)
[2018-10-06] MEDS: QUETIAPINE FUMARATE 25 MG TAB PO SCH (20:40)
[2018-10-06] MEDS: CLOPIDOGREL BISULFATE 75 MG TAB PO SCH (20:40)
[2018-10-07] VITALS (8 sets, daily range): BP systolic 106–123; BP diastolic 60–70
[2018-10-07] MEDS: ALBUTEROL/IPRATROPIUM 3 ML NEB NEB SCH ×6 (02:45→23:15)
[2018-10-07] MEDS: ACETAMINOPHEN/CODEINE 300MG - 30MG TAB PO PRN ×2 (03:16→10:25)
--- NOTE | 2018-10-07 03:16 | NUR ---
patient medicated with tylenol #3 1 po for c/o generalized pain 5/10 at this time.
--- NOTE | 2018-10-07 05:00 | NUR ---
am labs collected from patients right upper arm picc without difficulty.
[2018-10-07] MEDS: GUAIFENESIN 200 MG/10 ML UDC PO SCH ×3 (05:04→22:00)
[2018-10-07] MEDS: VANCOMYCIN 250MG/5ML ORAL SOLN PO SCH ×3 (05:04→22:00)
[2018-10-07 06:04] LABS: INR 2.72; PROTHROMBIN TIME 29.6 seconds (11.9-14.5)
--- NOTE | 2018-10-07 06:50 | NUR ---
RECEIVED PATIENT RESTING IN BED. NO ACUTE DISTRESS NOTED, NO S/S OF PAIN NOTED. CALL LIGHT WITHIN REACH. BED IN THE LOWEST POSITION.
[2018-10-07] MEDS: TIOTROPIUM 18 MCG INH POWDER INH SCH (07:53)
[2018-10-07] MEDS: BUDESONIDE/FORMOTEROL 160/4.5MCG INHALER INH SCH ×2 (07:53→20:07)
[2018-10-07] MEDS: NICOTINE 21 MG/EA PATCH TOP SCH (08:30)
[2018-10-07] MEDS: FUROSEMIDE 40 MG TAB PO SCH (08:31)
[2018-10-07] MEDS: DULOXETINE HCL 20 MG DELAYED RELEASE PO SCH (08:31)
[2018-10-07] MEDS: LEVETIRACETAM 500 MG TAB PO SCH ×2 (08:31→16:00)
[2018-10-07] MEDS: CEFEPIME 1GM/NS 0.9% 50 ML 50 ML IV SCH ×2 (08:31→20:00)
[2018-10-07] MEDS: SUCRALFATE 1 GM/10 ML SUSP NG SCH ×4 (08:31→20:35)
[2018-10-07] MEDS: POTASSIUM CHLORIDE 10MEQ EA PO SCH (08:31)
[2018-10-07] MEDS: CITALOPRAM HYDROBROMIDE 20 MG TAB PO SCH (08:31)
[2018-10-07] MEDS: PANTOPRAZOLE SOD 40 MG TABEC PO SCH (08:31)
[2018-10-07] MEDS: LORAZEPAM 0.5 MG TAB PO SCH ×3 (08:31→20:35)
[2018-10-07] MEDS: FAMOTIDINE 20 MG TAB PO SCH ×2 (08:31→16:00)
--- NOTE | 2018-10-07 09:33 | NUR ---
NOTIFIED LAZARO REYNA OF TODAY'S INR, NO NEW ORDERS.
--- NOTE | 2018-10-07 18:58 | NUR ---
REPORT GIVEN TO ONCOMING NURSE, WALKING ROUNDS DONE. PATIENT IS IN STABLE CONDITION. NO S/S OF PAIN NOTED. CALL LIGHT WITHIN REACH. BED IN THE LOWEST POSITION.
--- NOTE | 2018-10-07 19:00 | NUR ---
patient received awake, alert, lying quietly in bed. no c/o pain noted at this time. pm assessment complete. patient instructed to call for assistance when needed.
[2018-10-07] MEDS: MIRTAZAPINE 15 MG TAB PO SCH (20:35)
[2018-10-07] MEDS: ATORVASTATIN 20 MG TAB PO SCH (20:35)
[2018-10-07] MEDS: CLOPIDOGREL BISULFATE 75 MG TAB PO SCH (20:35)
[2018-10-07] MEDS: QUETIAPINE FUMARATE 25 MG TAB PO SCH (20:35)
[2018-10-07] MEDS: MONTELUKAST SODIUM 10 MG TAB PO SCH (20:35)
[2018-10-07] MEDS: LORATADINE 10 MG TAB PO SCH (20:35)
[2018-10-08] VITALS (7 sets, daily range): BP systolic 90–128; BP diastolic 57–87
[2018-10-08] MEDS: ALBUTEROL/IPRATROPIUM 3 ML NEB NEB SCH ×6 (03:55→22:50)
[2018-10-08 05:41] LABS: BASOPHILS % 0.2 % (0.0-1.0); EOSINOPHILS % 0.3 % (0.0-6.0); HEMATOCRIT 30.1 % (38.2-49.6); HEMOGLOBIN 8.8 g/dL (14.0-18.0); LYMPHOCYTES % 8.3 % (18.0-39.1); MEAN CORPUSCULAR HEMOGLOBIN 26.9 pg (28-32); MEAN CORPUSCULAR HGB CONC 29.2 g/dL (31-35); MONOCYTES # (AUTO) 1.4 (0.2-0.8); NEUTROPHILS # (AUTO) 9.4 (2.1-6.9); NEUTROPHILS % 78.5 % (38.7-80.0); PLATELET COUNT 206 x10e3/uL (140-360); RED BLOOD COUNT 3.27 x10e6/uL (4.3-5.7)
[2018-10-08] MEDS: VANCOMYCIN 250MG/5ML ORAL SOLN PO SCH (05:44)
[2018-10-08] MEDS: GUAIFENESIN 200 MG/10 ML UDC PO SCH ×3 (05:44→21:41)
[2018-10-08 06:02] LABS: ANION GAP 9.3 mmol/L (8-16); BLOOD UREA NITROGEN 7 mg/dL (7-26); BUN/CREATININE RATIO 13 (6-25); CALCIUM 8.5 mg/dL (8.4-10.2); CARBON DIOXIDE 38 mmol/L (22-29); CHLORIDE 96 mmol/L (98-107); CREATININE, SERUM 0.55 mg/dL (0.72-1.25); EST GLOMERULAR FILTRATION RATE > 60 ML/MIN (60-); GLUCOSE 103 mg/dL (74-118); POTASSIUM 4.3 mmol/L (3.5-5.1); SODIUM 139 mmol/L (136-145)
[2018-10-08 06:27] LABS: INR 2.24; PROTHROMBIN TIME 25.5 seconds (11.9-14.5)
[2018-10-08] MEDS: TIOTROPIUM 18 MCG INH POWDER INH SCH (06:28)
[2018-10-08] MEDS: BUDESONIDE/FORMOTEROL 160/4.5MCG INHALER INH SCH ×2 (06:28→19:15)
[2018-10-08] MEDS: SUCRALFATE 1 GM/10 ML SUSP NG SCH ×4 (08:33→21:00)
[2018-10-08] MEDS: PANTOPRAZOLE SOD 40 MG TABEC PO SCH (08:33)
[2018-10-08] MEDS: FAMOTIDINE 20 MG TAB PO SCH ×2 (08:33→16:32)
[2018-10-08] MEDS: FUROSEMIDE 40 MG TAB PO SCH (08:34)
[2018-10-08] MEDS: DULOXETINE HCL 20 MG DELAYED RELEASE PO SCH (08:34)
[2018-10-08] MEDS: POTASSIUM CHLORIDE 10MEQ EA PO SCH (08:34)
[2018-10-08] MEDS: NICOTINE 21 MG/EA PATCH TOP SCH (08:34)
[2018-10-08] MEDS: CEFEPIME 1GM/NS 0.9% 50 ML 50 ML IV SCH (08:34)
[2018-10-08] MEDS: LEVETIRACETAM 500 MG TAB PO SCH ×2 (08:34→16:32)
[2018-10-08] MEDS: CITALOPRAM HYDROBROMIDE 20 MG TAB PO SCH (08:34)
[2018-10-08] MEDS ORDERED: PIPER-TAZ 3.375 GM 50 ML IV SCH (09:30)
[2018-10-08] MEDS: ACETAMINOPHEN/CODEINE 300MG - 30MG TAB PO PRN (09:50)
[2018-10-08] MEDS ORDERED: VANCOMYCIN 750MG/NS 150ML IVPB 150 ML IV SCH (10:00)
--- NOTE | 2018-10-08 10:26 | NUR ---
SPOKE WITH PT WHOM SIGNED CHOICE FOR [facility]
[2018-10-08] MEDS: ACETAMINOPHEN 325 MG TAB PO PRN (11:32)
--- NOTE | 2018-10-08 14:20 | NUR ---
INITIATED WITH [facility], REP IS REVIEWING CLINICALS AND PENDING INSURANCE
[2018-10-08] MEDS: WARFARIN SOD 2 MG TAB PO SCH (17:35)
[2018-10-08] MEDS ORDERED: SODIUM CHLORIDE 0.9% 50ML 50 ML ONE (17:36)
[2018-10-08] MEDS ORDERED: IOPAMIDOL 370 MG/ML 200 ML INFUS..BTL INJ ONE (17:36)
--- NOTE | 2018-10-08 17:43 | Diagnostic Imaging Report ---
EXAMINATION: CT of the abdomen and pelvis with contrast. TECHNIQUE: Helical CT images of the abdomen and pelvis were performed from the lung bases to the lesser trochanters after the intravenous administration of 100 cc of Omnipaque 300 and the oral administration of none. Coronal and sagittal reformatted images were obtained.Dose modulation, iterative reconstruction, and/or weight based adjustment of the mA/kV was utilized to reduce the radiation dose to as low as reasonably achievable. COMPARISON: September 26, 2018 CLINICAL HISTORY:Evaluate for infection DISCUSSION: ABDOMEN/PELVIS: LOWER THORAX:Right lower lobe consolidation. Small pleural effusions HEPATOBILIARY: No focal hepatic lesions. No intra-or extrahepatic biliary ductal dilation. The gallbladder is normal. SPLEEN: No splenomegaly. PANCREAS: No focal masses or ductal dilatation. ADRENALS: No adrenal nodules. KIDNEYS/URETERS: No hydronephrosis. Simple left renal cyst. Left renal calculi versus vascular calcifications. PELVIC ORGANS/BLADDER: The bladder is normal. PERITONEUM/RETROPERITONEUM: No free air or fluid. LYMPH NODES: No intra-abdominal, retroperitoneal, pelvic or inguinal lymphadenopathy. VESSELS: Vascular calcifications. GI TRACT: No obstruction. Appendix is normal. BONES AND SOFT TISSUE: Chronic appearing wedge deformity of L1. No soft tissue abnormalities. IMPRESSION: Right lower lobe pneumonia Small pleural effusions No acute CT finding within the abdomen or pelvis Signed by: Dr. Ramiro Santacruz M.D. on 10/08/2018 5:40 PM
--- NOTE | 2018-10-08 19:14 | NUR ---
REPORT GIVEN TO ONCOMING NURSE, PATIENT IS RESTING IN BED. NO ACUTE DISTRESS NOTED. NO S/S OF PAIN OR DISCOMFORT NOTED. CALL LIGHT WITHIN REACH. BED IN THE LOWEST POSITION.
--- NOTE | 2018-10-08 19:15 | NUR ---
patient received awake, lying quietly in bed. respirations even and unlabored. 02/3l/nc in use at this time. no c/o pain noted. pm assessment complete. side rails up x 3. call madsen placed within reach. patient instructed to call for assistance when needed.
--- NOTE | 2018-10-08 20:29 | Consultation ---
DATE OF CONSULTATION: 10/08/2018 REASON FOR CONSULTATION: Recommendation of antibiotic. HISTORY OF PRESENT ILLNESS: Mr. Castañeda is a 62-year-old white gentleman, who was admitted on September 25 to [facility] in [place]. [facility] with shortness of breath. The patient who had multiple hospitalization, he was recently here and discharged on September 19. He was in [place], comes repeatedly for shortness of breath. The patient does have underlying history of COPD, congestive heart failure. He does have stent and a permanent pacemaker. He is on home oxygen 3 L. The patient also has history of COPD, major depression, anxiety disorder, coronary artery disease, atrial fibrillation, and left permanent pacemaker. PAST SURGICAL HISTORY: Pacemaker placement. SOCIAL HISTORY: He is a smoker and drinks occasionally. Unfortunately, he continued to smoke while he was repeatedly advice to quit. MEDICATIONS: At home he is on; DuoNeb, Lipitor, Tessalon Perles, Symbicort, Plavix, Cymbalta, Pepcid, Keppra, lisinopril, Claritin, Seroquel, metoprolol. ALLERGIES: NKA. REVIEW OF SYSTEMS: GENERAL: He is currently complaining shortness of breath, but overall he said he is feeling better. No fever. No chills. : Negative. GI: Negative. SKIN: There is no other rash. There is no chest pain at the present time. He stated when he first came there was chest pain, but now is better. There has been no cough. The patient otherwise has no other complaints and the patient was seen by Cardiology. He does also have anomaly of the left anterior descending coronary artery disease per record. Also per the Social Work, he is staying at the [facility] and heavy smoking as mentioned above. His medication list at home was extended and all reviewed. The patient was admitted with acute shortness of breath, acute on chronic obstructive pulmonary disease exacerbation, coronary artery disease, diastolic congestive heart failure, depression and anxiety. LABORATORY DATA: Reviewed. His white count on admission was 29.49 , today is 11.96, hemoglobin 8.8. His sodium 125, potassium 4.5, creatinine 0.6. The patient had a chest x-ray on October 02, showed right basilar scarring, right bilateral angle blunting. The patient has been running fever of 100.3 last couple of days, so that is why Infection Disease was consulted. The patient tells me he is okay, but apparently he remains on oxygen and still short of breath. Vancomycin was started today. His medications, he is currently on Carafate, Tylenol, DuoNeb, vancomycin, Zosyn, Lasix, Keppra, Celexa, Ventolin, Maalox. The patient had a CT scan of the chest on September 26, which showed right lung base scarring, upper lobe emphysema. His white count as mentioned above; white count was 11.96, hemoglobin 8.8, hematocrit 30, monocytes was 12. PHYSICAL EXAMINATION: GENERAL: He is currently alert and comfortable, does not seem to be in acute distress. VITAL SIGNS: Stable currently afebrile, but earlier he had fever as mentioned above. HEENT: Normocephalic. CHEST: Few crackles. COR: S1, S2. No S3, S4, or murmur. ABDOMEN: Soft. Bowel sounds present. No tenderness. EXTREMITIES: No edema. IMPRESSION AND PLAN: Acute exacerbation present on admission of chronic obstructive pulmonary disease with underlying history of congestive heart failure with leukocytosis concerning for infection, maybe pneumonia. The patient is really not a good source of information and his examination was unremarkable, but I am concerned that he came with leukocytosis, now he is having fever. The leukocytosis did resolve, but now is having low fever, so I think we are dealing within two different problems. 1. Infection on admission, source is unclear. We will get CT of abdomen and pelvis to rule out source. 2. Fever with monocytosis, which makes me believe it is probably drug related. He has been on Zosyn, so we will discontinue that. I would like to hold off any other antibiotics till we finish the workup. I will also obtain blood cultures should he spike fever and we will reassess. 3. Chronic obstructive pulmonary disease. 4. Congestive heart failure. 5. Complicated medical history as mentioned above. We will follow with you. Thank you for asking me to see this patient. MD JAIME Jerry/BERNABE /[id number]
[2018-10-08] MEDS: ATORVASTATIN 20 MG TAB PO SCH (21:00)
[2018-10-08] MEDS: LORATADINE 10 MG TAB PO SCH (21:00)
[2018-10-08] MEDS: QUETIAPINE FUMARATE 25 MG TAB PO SCH (21:00)
[2018-10-08] MEDS: CLOPIDOGREL BISULFATE 75 MG TAB PO SCH (21:00)
[2018-10-08] MEDS: MONTELUKAST SODIUM 10 MG TAB PO SCH (21:00)
[2018-10-08] MEDS: MIRTAZAPINE 15 MG TAB PO SCH (21:00)
[2018-10-09] VITALS (7 sets, daily range): BP systolic 111–122; BP diastolic 55–74
[2018-10-09 01:19] LABS: BASOPHILS % 0.2 % (0.0-1.0); EOSINOPHILS % 0.3 % (0.0-6.0); HEMATOCRIT 26.7 % (38.2-49.6); HEMOGLOBIN 8.2 g/dL (14.0-18.0); LYMPHOCYTES # (AUTO) 0.9 (1.0-3.2); LYMPHOCYTES % 6.7 % (18.0-39.1); MEAN CORPUSCULAR HEMOGLOBIN 27.8 pg (28-32); MEAN CORPUSCULAR HGB CONC 30.7 g/dL (31-35); MEAN CORPUSCULAR VOLUME 90.5 fL (81-99); MONOCYTES # (AUTO) 1.3 (0.2-0.8); MONOCYTES % 9.9 % (4.4-11.3); NEUTROPHILS # (AUTO) 10.7 (2.1-6.9); NEUTROPHILS % 82.1 % (38.7-80.0); PLATELET COUNT 218 x10e3/uL (140-360); RED BLOOD COUNT 2.95 x10e6/uL (4.3-5.7)
[2018-10-09 01:28] LABS: INR 1.75; PROTHROMBIN TIME 21.1 seconds (11.9-14.5)
[2018-10-09 01:36] LABS: ANION GAP 10.1 mmol/L (8-16); BLOOD UREA NITROGEN 6 mg/dL (7-26); BUN/CREATININE RATIO 10 (6-25); CALCIUM 8.2 mg/dL (8.4-10.2); CARBON DIOXIDE 37 mmol/L (22-29); CHLORIDE 95 mmol/L (98-107); CREATININE, SERUM 0.58 mg/dL (0.72-1.25); EST GLOMERULAR FILTRATION RATE > 60 ML/MIN (60-); GLUCOSE 130 mg/dL (74-118); POTASSIUM 4.1 mmol/L (3.5-5.1); SODIUM 138 mmol/L (136-145)
[2018-10-09] MEDS: ALPRAZOLAM 0.25 MG TAB PO PRN ×2 (02:05→12:34)
[2018-10-09] MEDS: ALBUTEROL/IPRATROPIUM 3 ML NEB NEB SCH ×4 (02:40→15:32)
[2018-10-09] MEDS: GUAIFENESIN 200 MG/10 ML UDC PO SCH ×2 (05:56→15:43)
[2018-10-09] MEDS: PANTOPRAZOLE SOD 40 MG TABEC PO SCH (07:30)
[2018-10-09] MEDS: FAMOTIDINE 20 MG TAB PO SCH ×2 (07:30→15:43)
[2018-10-09] MEDS: CITALOPRAM HYDROBROMIDE 20 MG TAB PO SCH (09:00)
[2018-10-09] MEDS: LEVETIRACETAM 500 MG TAB PO SCH ×2 (09:00→17:00)
[2018-10-09] MEDS: FUROSEMIDE 40 MG TAB PO SCH (09:00)
[2018-10-09] MEDS: NICOTINE 21 MG/EA PATCH TOP SCH (09:00)
[2018-10-09] MEDS: DULOXETINE HCL 20 MG DELAYED RELEASE PO SCH (09:00)
[2018-10-09] MEDS: BUDESONIDE/FORMOTEROL 160/4.5MCG INHALER INH SCH (11:52)
[2018-10-09] MEDS: TIOTROPIUM 18 MCG INH POWDER INH SCH (11:52)
[2018-10-09] MEDS: SUCRALFATE 1 GM/10 ML SUSP NG SCH ×4 (12:30→20:37)
[2018-10-09] MEDS: POTASSIUM CHLORIDE 10MEQ EA PO SCH (12:34)
[2018-10-09] MEDS ORDERED: VANCOMYCIN 750MG/NS 150ML IVPB 150 ML IV SCH (14:00)
--- NOTE | 2018-10-09 14:58 | NUR ---
Patient has been assessed 3x by PT services and currently able to get OOB, Mod(I) and walk without LOB. His limiting factor is his respiratory status. (+) SOB whenever ambulating to the nurse station w/o O2. Pt has been instructed to call for assistance with the O2 tank when ambulating. Provided pt a RW to improve safety. Nursing and family to encourage pt to get up nazia for meals. No PT needed at this time. , the PT evals have been posted under rehab for your review. Addendum: 10/09/18 at 1502 by Drake Mendoza PT Amended: Links added.
[2018-10-09] MEDS: DOXYCYCLINE HYCLATE TABLET 100 MG TAB PO SCH ×2 (15:43→17:39)
--- NOTE | 2018-10-09 16:16 | NUR ---
LONG-TERM ACUTE CARE DISCHARGE INFORMATION PATIENT HAS BEEN ACCEPTED TO: NAME: [facility] ADDRESS: [address] [place] [id number] ACCEPTING [employer] OPERATIONS DIRECTOR: FARZAD COLE, PROVIDER EDUCATION SPECIALIST ACCEPTING MD: DR. JASON ADHIKARI ROOM: 238 NURSE CALL REPORT TO: [phone] THE FOLLOWING DOCUMENTS MUST ACCOMPANY PATIENT FOR TRANSFER: COPIED CHART: BY REVENUE ACCOUNTANT MOT INFO RECEIVED FROM: LEONARDA LUZ ORDER/RECONCILED MED LIST: BEDSIDE NURSE; NORMAN BRIGHT [id number] DNR: N/A
[2018-10-09] MEDS ORDERED: WARFARIN SOD 2 MG TAB PO SCH (17:00)
--- NOTE | 2018-10-09 17:33 | NUR ---
Transfer report given to Jillian of [facility]. Pt is going to room 321.
[2018-10-09] MEDS ORDERED: PIPERACILLIN/TAZO 2.25 GM 50 ML IV SCH (18:00)
--- NOTE | 2018-10-09 19:42 | NUR ---
RECEIVED PT IN BED AOX3 SLEEPING .NO ACUTE DISTRESS NOTED DENIES PAIN PT IS GOING TO [facility] .CALL LIGHT WITH IN REACH .CONTINUE TO MONITOR
[2018-10-09] MEDS: QUETIAPINE FUMARATE 25 MG TAB PO SCH (20:38)
[2018-10-09] MEDS: LORATADINE 10 MG TAB PO SCH (20:38)
[2018-10-09] MEDS: MIRTAZAPINE 15 MG TAB PO SCH (20:38)
[2018-10-09] MEDS: CLOPIDOGREL BISULFATE 75 MG TAB PO SCH (20:38)
[2018-10-09] MEDS: ATORVASTATIN 20 MG TAB PO SCH (20:38)
[2018-10-09] MEDS: MONTELUKAST SODIUM 10 MG TAB PO SCH (20:38)
--- NOTE | 2018-10-09 20:53 | Progress Note ---
DATE: 10/09/2018 SUBJECTIVE: Mr. Castañeda is lying in bed comfortably, has no complaints. REVIEW OF SYSTEMS: HEENT: Negative. PULMONARY: Negative. CARDIAC: Negative. : Negative. PHYSICAL EXAMINATION: GENERAL: He is currently alert. VITAL SIGNS: Stable, currently afebrile. HEENT: He is not icteric. NECK: Supple. CHEST: Clear. Bilateral few crackles. COR: S1 and S2. No murmurs. ABDOMEN: Soft. Bowel sounds present. No tenderness. EXTREMITIES: No edema. SKIN: No rash. IMPRESSION: 1. Acute over chronic obstructive pulmonary disease exacerbation, seems to be stable, coronary artery disease, diastolic congestive heart failure. 2. Depression. 3. Anxiety. 4. Possibly pulmonary hypertension. 5. Dementia. 6. Recurrent pneumonia, recurrent aspiration. The patient is on vancomycin and Zosyn, to finish in 8 days. The patient had recurrent admissions to the hospital. Prognosis is guarded. MD JAIME Jerry/BERNABE /[id number]
--- NOTE | 2018-10-09 21:55 | NUR ---
PT IS TRANSFERRED TO [facility] .PT IS STABLE .BELONGINGS AND PAPER WORKS ARE GIVEN TO THE AMBULANCE
== END 2018-10-09 21:47 | DRG 871 ==
LOC: ER 15:29 → ERHOLD 17:34 → IMCU 09-25 11:30 → OBSVTOIN 09-26 08:47 → MED/SURG3 09-26 21:55
PROVIDERS: ADMIT Internal Medicine; ATTEND Internal Medicine
PROC: 02HV33Z Insertion of Infusion Device into Superior Vena Cava, Percutaneous Approach (ICD-10-PCS; principal; 2018-09-30)
DX: A41.9 Sepsis, unspecified organism (principal); J18.9 Pneumonia, unspecified organism; J96.01 Acute respiratory failure with hypoxia; J69.0 Pneumonitis due to inhalation of food and vomit; I50.43 Acute on chronic combined systolic (congestive) and diastolic (congestive) heart failure; J44.0 Chronic obstructive pulmonary disease with (acute) lower respiratory infection; J44.1 Chronic obstructive pulmonary disease with (acute) exacerbation; I11.0 Hypertensive heart disease with heart failure; I48.91 Unspecified atrial fibrillation; Z79.01 Long term (current) use of anticoagulants; I27.20 Pulmonary hypertension, unspecified; Z87.01 Personal history of pneumonia (recurrent); Z86.73 Personal history of transient ischemic attack (TIA), and cerebral infarction without residual deficits; D50.9 Iron deficiency anemia, unspecified; F17.210 Nicotine dependence, cigarettes, uncomplicated
CPT/HCPCS: 36415; 36569; 36600; 71045; 71046; 71250; 74177; 80048; 80053; 82550; 82553; 82805; 82948; 83540; 83605; 83880; 84466; 84484; 85025; 85610; 87040; 93005; 93306; 94640; 94664; 94668; 96361; 96374; 97139; 99285; G0378; J0692; J0696; J1100; J1940; J2543; J2920; J2930; J3475; J7050; Q9967

== ENCOUNTER 2018-12-06 12:08 | Inpatient (IN) | payer OTHER ==
[~2018-12-06] VITALS: Ht 182.9 cm; Wt 100.1 kg
[~2018-12-06 12:08] MED LIST changes: +CYMBALTA20 MG PO; +FUROSEMIDE40 MG PO; +MEDI PO; +METOPROLOL TART25 MG PO; +ROBAFEN100 MG/5 M PO; +SEROQUEL25 MG PO; +anoro ellipta INH; +duoneb INH
--- OUTSIDE RECORDS SUMMARY | 2018-12-06 12:12 | XMS REPORT | Continuity of Care Document ---
Author Author [employer] Organization [employer] Address Unknown Phone Unavailable Care Team Providers Care Paralegal Supervisor Name Role Phone [employer] Information [employer] Unavailable Unavailable Problems Problem Status Onset Date Classification Date Reported Comments Source SOB / CHEST PAIN Active 2015 [facility] [place] BRONCHITIS, CHEST PAIN Active 2015 [facility] [place] WEAK Active 08/18/2015 [facility] CHEST PAIN, BRADYCARDIA, SUICIDAL IDEATI Active 08/18/2015 [facility] DEBILITATED Active 08/07/2015 [facility] DEBILITY Active 08/07/2015 [facility] LEFT CORONARY ANOMALY Active 07/20/2015 [facility] Anxiety Active Problem 12/05/2015 [facility] [place],[facility] COPD Active Problem 12/05/2015 [facility] Depressed Active Problem 12/05/2015 [facility] Hypertension Active Problem 12/05/2015 [facility] [place],[facility] Major depressive disorder Active Problem 12/05/2015 [facility] Pacemaker Active Problem 12/05/2015 [facility] Psychomotor retardation Active Problem 12/05/2015 [facility] Pulmonary embolism Resolved Problem 12/05/2015 [facility] Tobacco abuse Active Problem 12/05/2015 [facility] Unstable angina Active Problem 12/05/2015 [facility] [place],[facility] OTHER SPECIFIED CONGENITAL DEFORMITIES Active [facility] OTHER MALAISE Active [facility] BRONCHITIS, NOT SPECIFIED ACUTE OR CH Active [facility] [place] Medications Medication Details Route Status Patient Instructions Ordering Provider Order Date Source rivaroxaban 20 mg oral tablet 20 mg=1 tab, PO, QPM, 0 Refill(s) Active 12/02/2015 [facility] [place] lamoTRIgine 25 mg oral tablet 25 mg=1 tab, PO, BID, 0 Refill(s) Active 12/02/2015 [facility] [place] QUEtiapine 25 mg oral tablet 25 mg=1 tab, PO, Q4H, PRN Anxiety, 0 Refill(s) Active 12/02/2015 [facility] [place] Seroquel 25 mg, 1 tab, Route: PO, Drug form: TAB, TID, Dosing Weight 105.455, kg, Start date: 12/02/15 13:00:00 CDT, Duration: 30 day, Stop date: 01/01/16 9:00:00 CDTNotes: (Same as: SEROquel) Inactive 12/02/2015 [facility] [place] Seroquel 25 mg, 1 tab, Route: PO, Drug form: TAB, Q4H, Dosing Weight 105.455, kg, PRN Anxiety, Start date: 12/02/15 12:54:00 CDT, Duration: 30 day, Stop date: 01/01/16 12:53:00 CDTNotes: (Same as: SEROquel) Inactive 12/02/2015 [facility] [place] lamoTRIgine 25 mg oral tablet 25 mg, 1 tab, Route: PO, Drug form: TAB, BID, Dosing Weight 105.455, kg, Priority: NOW, Start date: 12/02/15 11:31:00 CDT, Duration: 30 day, Stop date: 01/01/16 9:00:00 CDTNotes: (Same as:LaMICtal) Inactive 12/02/2015 [facility] [place] Mirtazapine 30 mg, 2 tab, Route: PO, Drug form: TAB, Bedtime, Dosing Weight 105.455, kg, Start date: 11/29/15 21:00:00 CDT, Duration: 30 day, Stop date: 12/28/15 21:00:00 CDTNotes: (Same as:Remeron) No Longer Active 11/30/2015 [facility] [place] Seroquel 50 mg, 2 tab, Route: PO, Drug form: TAB, Bedtime, Dosing Weight 105.455, kg, Start date: 11/29/15 21:00:00 CDT, Stop date: 12/28/15 21:00:00 CDTNotes: (Same as: SEROquel) No Longer Active 11/30/2015 [facility] [place] Xarelto 20 mg, 1 tab, Route: PO, Drug form: TAB, QPM, Dosing Weight 105.455, kg, Start date: 11/29/15 20:00:00 CDT, Duration: 30 day, Stop date: 12/28/15 20:00:00 CDTNotes: (Same as: Xarelto) Administer with food No Longer Active 11/30/2015 [facility] [place] Seroquel 25 mg, 1 tab, Route: PO, Drug form: TAB, Q6H, Dosing Weight 105.455, kg, PRN Agitation, Start date: 11/29/15 19:38:00 CDT, Duration: 30 day, Stop date: 12/29/15 19:37:00 CDTNotes: (Same as: SEROquel) No Longer Active 11/30/2015 [facility] [place] Acetaminophen 300 MG / Codeine Phosphate 30 MG Oral Tablet [Tylenol with Codeine #3] 1 tab, Route: PO, Drug Form: TAB, Dosing Weight 105.455, kg, Q6H, PRN Pain Score 6-10, Start date: 11/29/15 18:44:00 CDT, Duration: 30 day, Stop date: 12/29/15 18:43:00 CDTNotes: Do not exceed 4gm/day of acetaminophen. (Same as: Tylenol with Codeine # 3) No Longer Active 11/29/2015 [facility] [place] POLYETHYLENE GLYCOL 3350 17 gm, 1 pkt, Route: PO, Drug form: PWDR, BID, Dosing Weight 105.455, kg, Start date: 11/29/15 9:00:00 CDT, Duration: 30 day, Stop date: 12/28/15 17:00:00 CDTNotes: Dissolve in 8 oz of water or juice. (Same as: Miralax) No Longer Active 11/29/2015 [facility] [place] Folic Acid 1 mg, 1 tab, Route: PO, Drug form: TAB, Daily, Dosing Weight 105.455, kg, Start date: 11/29/15 9:00:00 CDT, Duration: 30 day, Stop date: 12/28/15 9:00:00 CDTNotes: (Same as: Folvite) No Longer Active 11/29/2015 [facility] [place] Flonase 0.05 mg/inh nasal spray 2 spray, Route: Each Affected Nostril, Drug Form: SPRY, Dosing Weight 105.455, kg, Daily, Start date: 11/29/15 9:00:00 CDT, Duration: 30 day, Stop date: 12/28/15 9:00:00 CDTNotes: (Same as: Flonase) No Longer Active 11/29/2015 [facility] [place] carvedilol 3.125 mg, 1 tab, Route: PO, Drug form: TAB, Q12H, Dosing Weight 105.455, kg, Start date: 11/29/15 9:00:00 CDT, Duration: 30 day, Stop date: 12/28/15 21:00:00 CDTNotes: Give with food. (Same As: Coreg) No Longer Active 11/29/2015 [facility] [place] Budesonide 1 inhalation, Route: INHALATION, Drug form: PWDR, BID, Dosing Weight 105.455, kg, Start date: 11/29/15 9:00:00 CDT, Duration: 30 day, Stop date: 12/28/15 17:00:00 CDTNotes: Same as Pulmicort Flexhaler Non-Formulary Drug No Longer Active 11/29/2015 [facility] [place] Aspirin 81 mg, 1 tab, Route: PO, Drug form: ECTAB, Daily, Dosing Weight 105.455, kg, Start date: 11/29/15 9:00:00 CDT, Duration: 30 day, Stop date: 12/28/15 9:00:00 CDTNotes: Do not crush or chew. (Same As: Ecotrin) No Longer Active 11/29/2015 [facility] [place] Thiamine 100 mg, 1 tab, Route: PO, Drug form: TAB, Daily, Dosing Weight 105.455, kg, Start date: 11/29/15 9:00:00 CDT, Duration: 30 day, Stop date: 12/28/15 9:00:00 CDTNotes: (Same As: Vitamin B1) No Longer Active 11/29/2015 [facility] [place] Nitroglycerin 0.4 MG Sublingual Tablet 0.4 mg, 1 tab, Route: SL, Drug form: TAB, Q5Min, Dosing Weight 105.455, kg, PRN Chest Pain, Start date: 11/28/15 21:08:00 CDT, Duration: 30 day, Stop date: 12/28/15 21:07:00 CDT Inactive 11/29/2015 [facility] [place] Calcium Carbonate 500 MG Chewable Tablet 500 mg, 1 tab, Route: CHEW, Drug form: CHEWTAB, TID, Dosing Weight 105.455, kg, PRN Indigestion, Start date: 11/28/15 21:07:00 CDT, Duration: 30 day, Stop date: 12/28/15 21:06:00 CDTNotes: (Same As: César) Calcium Carbonate 500 lh=937 mg elemental calcium Dose= mg calcium carbonate ( mg elemental calcium) No Longer Active 11/29/2015 [facility] [place] 200 ACTUAT Albuterol 0.09 MG/ACTUAT Metered Dose Inhaler 2 puff, Route: INHALATION, Drug Form: AERO/A, Dosing Weight 105.455, kg, QID, PRN Wheezing, Start date: 11/28/15 21:07:00 CDT, Duration: 30 day, Stop date: 12/28/15 21:06:00 CDTNotes: Albuterol 90 microgram/inh 8gm HFA WASTE: Aerosol - Return to Pharmacy Same as: Violette Proventil No Longer Active 11/29/2015 [facility] [place] Saline Flush 0.9% 10 ml, Route: IVP, Drug Form: INJ, Dosing Weight 113.636, kg, Q12H, Start date: 11/28/15 21:00:00 CDT, Duration: 30 day, Stop date: 12/28/15 9:00:00 CDTNotes: (Same as: BD Posiflush) No Longer Active 11/29/2015 [facility] [place] Albuterol 0.83 MG/ML Inhalant Solution 2.5 mg, 3.01 mL, Route: INHALATION, Drug form: SOLN, RQ6H, Dosing Weight 113.636, kg, Start date: 11/28/15 20:00:00 CDT, Duration: 30 day, Stop date: 12/28/15 14:00:00 CDTNotes: SEE RT DOCUMENTATION (Same as: Proventil) No Longer Active 11/29/2015 [facility] [place] Lovenox 105.455 mg, 0.7 mL, Route: SUB-Q, Drug form: INJ, [id number], Dosing Weight 105.455, kg, Start date: 11/28/15 17:00:00 CDT, Duration: 30 day, Stop date: 12/28/15 9:00:00 CDTNotes: Nurse to ensure document ation of patient education per anticoagulation policy. (Same as: Lovenox) No Longer Active 2015 [facility] [place] Alprazolam 1 MG Oral Tablet [Xanax] 1 mg, 1 tab, Route: PO, Drug form: TAB, ONCE, Dosing Weight 105.455, kg, PRN Anxiety, Start date: 11/28/15 16:13:00 CDT, Stop date: 12/28/15 16:12:00 CDTNotes: With food or milk (Same as: Xanax) Inactive 2015 [facility] [place] Saline Flush 0.9% 10 ml, Route: IVP, Drug Form: INJ, Dosing Weight 113.636, kg, PRN, PRN Line Flush, Start date: 11/28/15 15:24:00 CDT, Duration: 30 day, Stop date: 12/28/15 15:23:00 CDTNotes: (Same as: BD Posiflush) No Longer Active 2015 [facility] [place] Nitroglycerin 0.4 mg, 1 tab, Route: SL, Drug form: TAB, Q5Min, Dosing Weight 113.636, kg, PRN Chest Pain, Start date: 11/28/15 15:24:00 CDT, Duration: 3 doses or times, Stop date: Limited # of timesNotes: (Same as :Nitroquick, Nitrostat) "Do Not Crush" Sublingual tablet No Longer Active 2015 [facility] [place] Morphine 2 mg, 1 mL, Route: IVP, Drug form: INJ, Q15Min, Dosing Weight 113.636, kg, PRN Chest Pain, Start date: 11/28/15 15:24:00 CDT, Duration: 2 doses or times, Stop date: Limited # of timesNotes: (Same as: MORPhine Sulfate) No Longer Active 2015 [facility] [place] Ondansetron 4 mg, 1 tab, Route: PO, Drug form: TAB, Q8H, Dosing Weight 113.636, kg, PRN Nausea & Vomiting, Start date: 11/28/15 15:24:00 CDT, Duration: 30 day, Stop date: 12/28/15 15:23:00 CDTNotes: (Same as: Glen) No Longer Active 2015 [facility] [place] Aspirin 325 MG Oral Tablet 325 mg, 1 tab, Route: PO, Drug form: TAB, ONCE, Dosing Weight 113.636, kg, Start date: 11/28/15 15:24:00 CDT, Stop date: 11/28/15 15:24:00 CDTNotes: Take with food. Inactive 2015 [facility] [place] Sodium Chloride 0.154 MEQ/ML Injectable Solution 1,000 mL, 1,000 ml/hr, Infuse Over: 1 hr, Route: IV, ONCE, Priority: STAT, Dosing Weight 113.636 kg, Start date: 11/28/15 13:34:00 CDT, Duration: 1 doses or times, Stop date: 11/28/15 13:34:00 CDT Inactive 2015 [facility] [place] Morphine 4 mg, Route: IVP, Drug form: INJ, ONCE, Dosing Weight 113.636, kg, Priority: STAT, Start date: 11/28/15 13:34:00 CDT, Stop date: 11/28/15 13:34:00 CDT Inactive 2015 [facility] [place] Nitroglycerin 0.02 MG/MG Topical Ointment 0.5 inch, Route: TOP, Dosing Weight 113.636, kg, ONCE, STAT, Start date: 11/28/15 13:32:00 CDT, Stop date: 11/28/15 13:32:00 CDT Inactive 2015 [facility] [place] Ipratropium 0.5 mg, 2.5 mL, Route: NEB, Drug form: SOLN, ONCE, Dosing Weight 113.636, kg, Priority: STAT, Start date: 11/28/15 10:59:00 CDT, Stop date: 11/28/15 10:59:00 CDTNotes: SEE RT DOCUMENTATION (Same as:Stacey romero) Inactive 2015 [facility] [place] Albuterol 0.83 MG/ML Inhalant Solution 10 mg, Route: NEB, Drug form: SOLN, Continuous, Dosing Weight 113.636, kg, Priority: STAT, Start date: 11/28/15 10:59:00 CDT, Duration: 30 day, Stop date: 12/28/15 10:58:00 CDT Inactive 2015 [facility] [place] methylPREDNISolone SODium SUCCinate 125 mg, 2 mL, Route: IVP, Drug form: INJ, ONCE, Dosing Weight 113.636, kg, Priority: STAT, Start date: 11/28/15 10:59:00 CDT, Stop date: 11/28/15 10:59:00 CDTNotes: (Same as:Solu-MEDROL, A-Methapred) Inactive 2015 [facility] [place] Magnesium Sulfate 2 gm, Route: IVPB, ONCE, Dosing Weight 113.636, kg, Priority: STAT, Start date: 11/28/15 10:59:00 CDT, Stop date: 11/28/15 10:59:00 CDT Inactive 2015 [facility] [place] Saline Flush 0.9% 10 mL, Route: IVP, Drug Form: INJ, Dosing Weight 113.636, kg, PRN, PRN Line Flush, Start date: 11/28/15 10:59:00 CDT, Duration: 30 day, Stop date: 12/28/15 10:58:00 CDTNotes: (Same as: BD Posiflush) Inactive 2015 [facility] [place] Ketoconazole 20 MG/ML Medicated Shampoo 1 appl, Route: TOP, QWed, Drug form: SHMP, Start date: 08/23/15 9:00:00 CDT, Duration: 30 day, Stop date: 09/20/15 9:00:00 CDT No Longer Active 08/23/2015 [facility] predniSONE 5 mg, 1 tab, Route: PO, Drug form: TAB, Daily, Start date: 08/20/15 9:00:00 CDT, Duration: 3 doses or times, Stop date: 08/22/15 9:00:00 CDTNotes: Take with food. No Longer Active 08/20/2015 [facility] Xarelto 15 mg, 1 tab, Route: PO, Drug form: TAB, Q12H, Dosing Weight 95, kg, Start date: 08/20/15 9:00:00 CDT, Duration: 30 day, Stop date: 09/18/15 21:00:00 CDTNotes: (Same as: Xarelto) Administer with food No Longer Active 08/20/2015 [facility] {42 (rivaroxaban 15 MG Oral Tablet [Xarelto]) / 9 (rivaroxaban 20 MG Oral Tablet [Xarelto]) } Pack [Xarelto Kit] 1 tab, PO, BID-Meals, Take 15 mg tablets twice daily with food for 21 days. Beginning day 22,take one 20 mg tablet daily with food for the remainder of therapy., X 30 day, # 1 pkt, 0 Refill(s) Active 08/20/2015 [facility] Pulmicort Respules 0.5 mg, 2 mL, Route: NEB, Drug form: SUSP, RBID, Start date: 08/19/15 22:00:00 CDT, Duration: 30 day, Stop date: 09/18/15 20:00:00 CDTNotes: (Same As: Pulmicort) No Longer Active 08/20/2015 [facility] Thiamine 100 mg, 1 tab, Route: PO, Drug form: TAB, Daily, Dosing Weight 95, kg, Start date: 08/19/15 9:00:00 CDT, Duration: 30 day, Stop date: 09/17/15 9:00:00 CDTNotes: (Same As: Vitamin B1) No Longer Active 08/19/2015 [facility] Ketoconazole 20 MG/ML Medicated Shampoo 1 appl, Route: TOP, QSat, Drug form: SHMP, Start date: 08/19/15 9:00:00 CDT, Duration: 30 day, Stop date: 09/16/15 9:00:00 CDT No Longer Active 08/19/2015 [facility] Folic Acid 1 mg, 1 tab, Route: PO, Drug form: TAB, Daily, Dosing Weight 95, kg, Start date: 08/19/15 9:00:00 CDT, Duration: 30 day, Stop date: 09/17/15 9:00:00 CDTNotes: (Same as: Folvite) No Longer Active 08/19/2015 [facility] Flonase 0.05 mg/inh nasal spray 2 spray, Route: Each Affected Nostril, Drug Form: SPRY, Dosing Weight 95, kg, Daily, Start date: 08/19/15 9:00:00 CDT, Duration: 30 day, Stop date: 09/17/15 9:00:00 CDTNotes: (Same as: Flonase) No Longer Active 08/19/2015 [facility] Aspirin 81 mg, 1 tab, Route: PO, Drug form: ECTAB, Daily, Dosing Weight 95, kg, Start date: 08/19/15 9:00:00 CDT, Duration: 30 day, Stop date: 09/17/15 9:00:00 CDTNotes: Do not crush or chew. (Same As: Ecotrin) No Longer Active 08/19/2015 [facility] Bacitracin 0.4 UNT/MG / Neomycin 0.0035 MG/MG / Polymyxin B 10 UNT/MG Ophthalmic Ointment 1 appl, Route: BOTH EYES, Q3H, Drug form: OINT, Start date: 08/18/15 23:00:00 CDT, Duration: 30 day, Stop date: 09/17/15 20:00:00 CDTNotes: (bacitracin/neomycin/ polymyxin B 3.5 gm oph OIN) (Same As: Neosporin, Triple Antibiotic) No Longer Active 08/19/2015 [facility] Mirtazapine 30 mg, 2 tab, Route: PO, Drug form: TAB, Bedtime, Dosing Weight 95, kg, Start date: 08/18/15 21:00:00 CDT, Duration: 30 day, Stop date: 09/16/15 21:00:00 CDTNotes: (Same as:Remeron) No Longer Active 08/19/2015 [facility] carvedilol 3.125 mg, 1 tab, Route: PO, Drug form: TAB, Q12H, Dosing Weight 95, kg, Start date: 08/18/15 21:00:00 CDT, Duration: 30 day, Stop date: 09/17/15 9:00:00 CDTNotes: Give with food. (Same As: Coreg) No Longer Active 08/19/2015 [facility] Budesonide 1 inhalation, Route: INHALATION, Drug form: PWDR, RBID, Dosing Weight 95, kg, Start date: 08/18/15 20:00:00 CDT, Duration: 30 day, Stop date: 09/17/15 8:00:00 CDTNotes: Same as Pulmicort Flexhaler Non- Formulary Drug Inactive 08/19/2015 [facility] Polymyxin B 32124 UNT/ML / Trimethoprim 1 MG/ML Ophthalmic Solution 1 drp, Route: BOTH EYES, Q3H, Start date: 08/18/15 17:00:00 CDT, Duration: 30 day, Stop date: 09/17/15 14:00:00 CDT Inactive 08/18/2015 [facility] Warfarin 7.5 mg, 1 tab, [...] (Same As: Coumadin) No Longer Active 08/18/2015 [facility] POLYETHYLENE GLYCOL 3350 17 gm, Route: PO, Drug form: PDR/REC, BID, Dosing Weight 95, kg, Start date: 08/18/15 17:00:00 CDT, Duration: 30 day, Stop date: 09/17/15 9:00:00 CDTNotes: (Same as: MiraLax) No Longer Active 08/18/2015 [facility] Polymyxin B 79007 UNT/ML / Trimethoprim 1 MG/ML Ophthalmic Solution 1 drp, BOTH EYES, Q3H, X 7 day, # 10 mL, 0 Refill(s) No Longer Active 08/18/2015 [facility] remove patch 1 patch, Route: TOP, Q24H, Drug form: ERFILM, Start date: 08/18/15 15:00:00 CDT, Duration: 30 day, Stop date: 09/16/15 15:00:00 CDTNotes: Remove patch 12 hours after application each day. No Longer Active 08/18/2015 [facility] Lidocaine Hydrochloride 0.05 MG/MG Transdermal [...] of new patch" No Longer Active 08/18/2015 [facility] predniSONE 10 mg, 1 tab, Route: PO, Drug form: TAB, Daily, Start date: 08/18/15 14:27:00 CDT, Duration: 2 doses or times, Stop date: 08/19/15 9:00:00 CDTNotes: (Same as: PredniSONE) Take with food. No Longer Active 08/18/2015 [facility] tramadol hydrochloride 50 MG Oral Tablet [Ultram] 50 mg, 1 tab, Route: PO, Drug form: TAB, Q6H, Dosing Weight 95, kg, PRN Pain Score 6- 10, Start date: 08/18/15 14:08:00 CDT, Duration: 30 day, Stop date: 09/17/15 14:07:00 CDTNotes: Not to exceed 400mg/day. (Same As: Ultram) No Longer Active 08/18/2015 [facility] Prednisone 1 MG Oral Tablet Dose: See Instructions, Route: SUB-Q, Drug form: TAB, Sliding Scale, PRN Blood Glucose Results, Start date: 08/18/15 14:08:00 CDT, Duration: 30 day, Stop date: 09/17/15 14:07:00 CDT Inactive 08/18/2015 [facility] Nitroglycerin 0.4 MG Sublingual Tablet 0.4 mg, 1 tab, Route: SL, Drug form: TAB, Q5Min, Dosing Weight 95, kg, PRN Chest Pain, Start date: 08/18/15 14:08:00 CDT, Duration: 30 day, Stop date: 09/17/15 14:07:00 CDTNotes: (Same as:Nitroquick, Nitrostat) "Do Not Crush" Sublingual tablet No Longer Active 08/18/2015 [facility] hydrocortisone topical 2.5% cream 1 appl, Route: TOP, BID, Drug form: CRM, PRN Itching, Start date: 08/18/15 14:08:00 CDT, Duration: 30 day, Stop date: 09/17/15 14:07:00 CDT No Longer Active 08/18/2015 [facility] Calcium Carbonate 500 MG Chewable Tablet 500 mg, 1 tab, Route: CHEW, Drug form: CHEWTAB, TID, Dosing Weight 95, kg, PRN Indigestion, Start date: 08/18/15 14:08:00 CDT, Duration: 30 day, Stop date: 09/17/15 14:07:00 CDTNotes: (Same As: César) Calcium Carbonate 500 oa=540 mg elemental calcium Dose= mg calcium carbonate ( mg elemental calcium) No Longer Active 08/18/2015 [facility] 200 ACTUAT Albuterol 0.09 MG/ACTUAT Metered Dose Inhaler 2 puff, Route: INHALATION, Drug Form: AERO/A, Dosing Weight 95, kg, RQID, PRN Wheezing, Start date: 08/18/15 14:08:00 CDT, Duration: 30 day, Stop date: 09/17/15 14:07:00 CDT No Longer Active 08/18/2015 [facility] Acetaminophen 1,000 mg, 2 tab, Route: PO, Drug form: TAB, Q6H, Dosing Weight 95, kg, PRN Pain Score 1-5, Start date: 08/18/15 14:07:00 CDT, Duration: 30 day, Stop date: 09/17/15 14:06:00 CDTNotes: Max acetaminophen 4000 mg/day (4 gm/day). (Same as: Tylenol Extra Strength) No Longer Active 08/18/2015 [facility] Sodium Chloride 0.9% IV 25 mL, Route: IV, Start date: 08/18/15 14:03:00 CDT, Duration: 30 day, Stop date: 09/17/15 14:02:00 CDT, PRN Line Flush No Longer Active 08/18/2015 [facility] Artificial Tears 1 drp, Route: Each Affected Eye, QID, Drug form: SOLN, PRN Dry Eyes, Start date: 08/18/15 13:56:00 CDT, Duration: 30 day, Stop date: 09/17/15 13:55:00 CDTNotes: (Same as: Aquasite) No Longer Active 08/18/2015 [facility] Diphenhydramine 25 mg, 0.5 mL, Route: IV, Drug form: INJ, Q6H, Dosing Weight 95, kg, PRN as needed for itching, Start date: 08/18/15 13:55:00 CDT, Duration: 30 day, Stop date: 09/17/15 13:54:00 CDTNotes: (Same as: Benadryl) No Longer Active 08/18/2015 [facility] Lorazepam 1 mg, 0.5 mL, Route: IV, Drug form: INJ, Q6H, Dosing Weight 95, kg, PRN as needed for anxiety, Start date: 08/18/15 13:55:00 CDT, Stop date: 09/17/15 13:54:00 CDTNotes: (Same as: Ativan) No Longer Active 08/18/2015 [facility] Ketoconazole 20 MG/ML Medicated Shampoo 1 appl, TOP, QSat, 0 Refill(s) Active 08/18/2015 [facility] Ketoconazole 20 MG/ML Medicated Shampoo 1 appl, TOP, QWed, 0 Refill(s) Active 08/18/2015 [facility] Saline Flush 0.9% 10 mL, Route: IVP, Drug Form: INJ, Dosing Weight 99.574, kg, PRN, PRN Line Flush, Start date: 08/18/15 8:30:00 CDT, Duration: 30 day, Stop date: 09/17/15 8:29:00 CDTNotes: (Same as: BD Posiflush) No Longer Active 08/18/2015 [facility] Ativan 1 mg, 1 tab, Route: PO, Drug form: TAB, ONCE, Dosing Weight 99.574, kg, Start date: 08/17/15 23:25:00 CDT, Stop date: 08/17/15 23:25:00 CDTNotes: (Same as: Ativan) Inactive 08/18/2015 [facility] tramadol hydrochloride 50 MG Oral Tablet [Ultram] 50 mg=1 tab, PO, Q6H, PRN Pain Score 6-10, # 1 tab, 0 Refill(s), other Active 08/18/2015 [facility] predniSONE 10 mg oral tablet See Instructions, Take 1 tab (10mg) PO daily for 2 days and then take 1/2 tab (5mg) PO daily for 3 days and stop. Take w/ food., # 1 tab, 0 Refill(s), other Active 08/18/2015 [facility] 200 ACTUAT Albuterol 0.09 MG/ACTUAT Metered Dose Inhaler 2 puff, INHALATION, QID, PRN as needed for wheezing, # 3 ea, 0 Refill(s), other Active 08/18/2015 [facility] thiamine 100 mg oral tablet 100 mg=1 tab, PO, Daily, 0 Refill(s) Active 08/18/2015 [facility] tramadol hydrochloride 50 MG Oral Tablet [Ultram] 50 mg=1 tab, PO, Q4H, PRN Pain Score 4-6, 0 Refill(s) Inactive 08/18/2015 [facility] POLYETHYLENE GLYCOL 3350 17 gm, PO, BID, 0 Refill(s) Active 08/18/2015 [facility] methocarbamol 500 mg oral tablet 500 mg=1 tab, PO, QID, PRN Muscle Spasms, per RACHEL Dennis at [facility], did not approve robaxin and not taking, 0 Refill(s) No Longer Active 08/18/2015 [facility] Lidocaine Hydrochloride 0.05 MG/MG Transdermal Patch [Lidoderm] 1 patch, TOP, Q24H, Remove after 12 hours, 0 Refill(s) Active 08/18/2015 [facility] hydrocortisone topical 2.5% cream 1 appl, TOP, BID, PRN Itching, 0 Refill(s) Active 08/18/2015 [facility] Folic Acid 1 MG Oral Tablet 1 mg=1 tab, PO, Daily, 0 Refill(s) Active 08/18/2015 [facility] Calcium Carbonate 500 MG Chewable Tablet 500 mg=1 tab, CHEW, TID, PRN Indigestion, 0 Refill(s) Active 08/18/2015 [facility] Flonase 0.05 mg/inh nasal spray 100 microgram=2 spray, Each Affected Nostril, Daily, 0 Refill(s) Active 08/18/2015 [facility] busPIRone 5 mg oral tablet 5 mg=1 tab, PO, TID, Investigating the current use. New rx from 08/17/15 but not seen on papaers provided by facility. RN Sonny will fax the list, 0 Refill(s) No Longer Active 08/18/2015 [facility] mirtazapine 30 mg oral tablet 30 mg=1 tab, PO, Bedtime, 0 Refill(s) Active 08/18/2015 [facility] warfarin 2.5 mg oral tablet 7.5 mg, PO, QPM, # 1 tab, 0 Refill(s), other No Longer Active 08/18/2015 [facility] acetaminophen 500 mg oral tablet 1,000 mg=2 tab, PO, Q6H, PRN Pain Score 1-5, 0 Refill(s) Active 08/18/2015 [facility] Warfarin 7.5 mg, 1 tab, Route: PO, [...] Waste Black (Same As: Coumadin) Inactive 08/17/2015 [facility] Buspar 5 mg, 1 tab, Route: PO, Drug form: TAB, TID, Dosing Weight 99.574, kg, Start date: 08/17/15 9:00:00 CDT, Duration: 30 day, Stop date: 09/15/15 17:00:00 CDTNotes: (Same As: BuSpar) No Longer Active 08/17/2015 [facility] Warfarin 7.5 mg, 1 tab, Route: PO, [...] Waste Black (Same As: Coumadin) Inactive 08/16/2015 [facility] Methocarbamol 500 mg, 1 tab, Route: PO, Drug form: TAB, QID, Dosing Weight 99.574, kg, PRN Muscle Spasms, Start date: 08/15/15 22:54:00 CDT, Duration: 30 day, Stop date: 09/14/15 22:53:00 CDTNotes: (Same as:Robaxin) No Longer Active 08/16/2015 [facility] Ativan 1 mg, 0.5 mL, Route: IVP, Drug form: INJ, ONCE, Dosing Weight 99.574, kg, Start date: 08/15/15 19:39:00 CDT, Stop date: 08/15/15 19:39:00 CDTNotes: (Same as: Ativan) Inactive 08/16/2015 [facility] Warfarin 6 mg, 1 tab, Route: PO, [...] Waste Black (Same As: Coumadin) Inactive 08/15/2015 [facility] Clonazepam 0.25 mg, 0.5 tab, Route: PO, Drug form: TAB, ONCE, Dosing Weight 99.574, kg, Priority: NOW, Start date: 08/15/15 10:09:00 CDT, Stop date: 08/15/15 10:09:00 CDTNotes: (Same As: KlonoPIN) Inactive 08/15/2015 [facility] Warfarin 5 mg, 1 tab, Route: PO, [...] Waste Black (Same As: Coumadin) Inactive 08/14/2015 [facility] remove patch 1 patch, Route: TOP, Bedtime, Drug form: ERFILM, Start date: 08/14/15 1:00:00 CDT, Duration: 30 day, Stop date: 09/12/15 1:00:00 CDTNotes: Remove patch 12 hours after application each day. No Longer Active 08/14/2015 [facility] Warfarin 5 mg, 1 tab, Route: PO, [...] Waste Black (Same As: Coumadin) Inactive 08/13/2015 [facility] Miralax 17 gm, 1 pkt, Route: PO, Drug form: PWDR, BID, Dosing Weight 99.574, kg, Priority: NOW, Start date: 08/13/15 14:34:00 CDT, Duration: 30 day, Stop date: 09/12/15 9:00:00 CDTNotes: Dissolve in 8 oz of water or juice. (Same as: Miralax) No Longer Active 08/13/2015 [facility] Dulcolax Laxative 10 mg, 1 supp, Route: NH, Drug form: SUPP, ONCE, Dosing Weight 99.574, kg, Priority: NOW, Start date: 08/13/15 14:29:00 CDT, Stop date: 08/13/15 14:29:00 CDTNotes: (Same As: Dulcolax, Bisco- Lax) Inactive 08/13/2015 [facility] Lidocaine Hydrochloride 0.05 MG/MG Transdermal Patch [Lidoderm] [...] of new patch" No Longer Active 08/13/2015 [facility] Warfarin 6 mg, 1 tab, Route: PO, Drug form: TAB, Q5PM, Dosing Weight 99.574, kg, Start date: 08/12/15 17:00:00, Duration: 1 doses or times, Stop date: 08/12/15 17:00:00Notes: Nurse to ensure documentation of pat ient education per anticoagulation policy. Avoid large intake of vitamin-K containing foods diet. WASTE: F/P - P Waste Black; E - P Waste Black (Same As: Coumadin) Inactive 08/12/2015 [facility] warfarin 3 mg oral tablet 6 mg=2 tab, PO, Daily, # 30 tab, 0 Refill(s) No Longer Active 08/12/2015 [facility] 200 ACTUAT Albuterol 0.09 MG/ACTUAT Metered Dose Inhaler 2 puff, INHALATION, QID, # 3 ea, 0 Refill(s) No Longer Active 08/12/2015 [facility] predniSONE 10 mg oral tablet 20 mg=2 tab, PO, Daily, for 3 days then 1 tab daily for 3 days then 0.5 tab for 4 days., # 11 tab, 0 Refill(s) Inactive 08/12/2015 [facility] carvedilol 3.125 mg oral tablet 3.125 mg=1 tab, PO, Q12H, # 60 tab, 0 Refill(s) Active 08/12/2015 [facility] tramadol hydrochloride 50 MG Oral Tablet 50 mg=1 tab, PO, Q6H, PRN Pain, PRN for pain q 6 hrs, # 30 tab, 0 Refill(s) Inactive 08/12/2015 [facility] Nitroglycerin 0.4 MG Sublingual Tablet 0.4 mg=1 tab, SL, Q5Min, PRN Chest Pain, Give up to 3 doses. Call 911 if pain persists., # 100 tab, 0 Refill(s) Active 08/12/2015 [facility] mirtazapine 15 mg oral tablet 15 mg=1 tab, PO, Bedtime, # 30 tab, 0 Refill(s) No Longer Active 08/12/2015 [facility] budesonide 180 mcg/inh inhalation powder 1 puff, INHALATION, BID, # 2 ea, 0 Refill(s) Active 08/12/2015 [facility] Warfarin 7.5 mg, 1 tab, Route: PO, Drug form: TAB, Q5PM, Dosing Weight 99.574, kg, Start date: 08/11/15 17:00:00, Duration: 1 doses or times, Stop date: 08/11/15 17:00:00Notes: Nurse to ensure documentation of p atient education per anticoagulation policy. Avoid large intake of vitamin-K containing foods diet. WASTE: F/P - P Waste Black; E - P Waste Black (Same As: Coumadin) Inactive 08/11/2015 [facility] Warfarin 6 mg, 1 tab, Route: PO, Drug form: TAB, Q5PM, Dosing Weight 99.574, kg, Start date: 08/10/15 17:00:00, Duration: 1 doses or times, Stop date: 08/10/15 17:00:00Notes: Nurse to ensure documentation of pat ient education per anticoagulation policy. Avoid large intake of vitamin-K containing foods diet. WASTE: F/P - P Waste Black; E - P Waste Black (Same As: Coumadin) Inactive 08/10/2015 [facility] Warfarin 7.5 mg, 1 tab, Route: PO, Drug form: TAB, ONCE, Dosing Weight 99.574, kg, Priority: NOW, Start date: 08/09/15 18:12:00, Stop date: 08/09/15 18:12:00Notes: Nurse to ensure documentation of patient education per anticoagulation policy. Avoid large intake of vitamin-K containing foods diet. WASTE: F/P - P Waste Black; E - P Waste Black (Same As: Coumadin) Inactive 08/09/2015 [facility] Oxycodone Hydrochloride 5 MG Oral Tablet 5 mg, 1 tab, Route: PO, Drug form: TAB, Q6H, Dosing Weight 99.574, kg, PRN Pain Score 7-10, Start date: 08/08/15 18:10:00 CDT, Duration: 30 day, Stop date: 09/07/15 18:09:00 CDTNotes: (Same as: Roxicodone) No Longer Active 08/08/2015 [facility] Tums 500 mg, 1 tab, Route: CHEW, Drug form: CHEWTAB, TID, Dosing Weight 99.574, kg, PRN Indigestion, Start date: 08/08/15 18:07:00, Duration: 30 day, Stop date: 09/07/15 18:06:00Notes: (Same As: Tums) Calcium Carbonate 500 ui=000 mg elemental calcium Dose= mg calcium carbonate ( mg elemental calcium) No Longer Active 08/08/2015 [facility] Coumadin 7.5 mg, 1 tab, Route: PO, Drug form: TAB, Q5PM, Dosing Weight 99.574, kg, Start date: 08/08/15 17:00:00, Duration: 1 doses or times, Stop date: 08/08/15 17:00:00Notes: Nurse to ensure documentation of p atient education per anticoagulation policy. Avoid large intake of vitamin-K containing foods diet. WASTE: F/P - P Waste Black; E - P Waste Black (Same As: Coumadin) Inactive 08/08/2015 [facility] Tylenol 1,000 mg, 2 tab, Route: PO, Drug form: TAB, Q6H, Dosing Weight 99.574, kg, Start date: 08/07/15 18:00:00, Duration: 30 day, Stop date: 09/06/15 12:00:00Notes: Max acetaminophen 4000 mg/day (4 gm/day). (Same as: Tylenol Extra Strength) No Longer Active 08/07/2015 [facility] Coumadin 7.5 mg, 1 tab, Route: PO, Drug form: TAB, Q5PM, Dosing Weight 99.574, kg, Start date: 08/07/15 17:00:00, Duration: 1 doses or times, Stop date: 08/07/15 17:00:00Notes: Nurse to ensure documentation of p atient education per anticoagulation policy. Avoid large intake of vitamin-K containing foods diet. WASTE: F/P - P Waste Black; E - P Waste Black (Same As: Coumadin) Inactive 08/07/2015 [facility] tramadol hydrochloride 50 MG Oral Tablet [Ultram] 50 mg, 1 tab, Route: PO, Drug form: TAB, Q4H, Dosing Weight 99.574, kg, PRN Pain Score 4-6, Start date: 08/07/15 12:36:00, Duration: 30 day, Stop date: 09/06/15 12:35:00Notes: Not to exceed 400mg/day. (Same As: Ultram) No Longer Active 08/07/2015 [facility] naproxen sodium 550 mg, Route: PO, Drug form: TAB, BID, Dosing Weight 99.574, kg, PRN Pain Score 1-3, Start date: 08/07/15 12:27:00, Duration: 30 day, Stop date: 09/06/15 12:26:00 Inactive 08/07/2015 [facility] Acetaminophen 325 MG / Hydrocodone Bitartrate 5 MG Oral Tablet [Hines 5/325] 1 tab, Route: PO, Drug Form: TAB, Dosing Weight 99.574, kg, Q4H, PRN Pain Score 1-3, Start date: 08/07/15 10:36:00, Duration: 30 day, Stop date: 09/06/15 10:35:00Notes: (Same as: Hines 325/5) Do not exceed 4gm/day of acetaminophen. Inactive 08/07/2015 [facility] Coumadin 5 mg, 1 tab, Route: PO, Drug form: TAB, Q5PM, Dosing Weight 99.574, kg, Start date: 08/06/15 17:00:00, Duration: 1 doses or times, Stop date: 08/06/15 17:00:00Notes: Nurse to ensure documentation of pat ient education per anticoagulation policy. Avoid large intake of vitamin-K containing foods diet. WASTE: F/P - P Waste Black; E - P Waste Black (Same As: Coumadin) Inactive 08/06/2015 [facility] Ativan 0.5 mg, 1 tab, Route: PO, Drug form: TAB, TID, Dosing Weight 99.574, kg, PRN Anxiety, Start date: 08/06/15 9:39:00, Duration: 30 day, Stop date: 09/05/15 9:38:00Notes: (Same as: Ativan) No Longer Active 08/06/2015 [facility] Ativan 0.5 mg, 0.25 mL, Route: IV, Drug form: INJ, ONCE, Dosing Weight 99.574, kg, Start date: 08/06/15 9:06:00, Stop date: 08/06/15 9:06:00Notes: (Same as: Ativan) Inactive 08/06/2015 [facility] Ativan 0.5 mg, 0.25 mL, Route: IV, Drug form: INJ, ONCE, Dosing Weight 99.574, kg, Start date: 08/06/15 8:49:00, Stop date: 08/06/15 8:49:00Notes: (Same as: Ativan) Inactive 08/06/2015 [facility] Coumadin 10 mg, 1 tab, Route: PO, Drug form: TAB, Q5PM, Dosing Weight 99.574, kg, Start date: 08/05/15 17:00:00, Duration: 1 doses or times, Stop date: 08/05/15 17:00:00Notes: Nurse to ensure documentation of pa tient education per anticoagulation policy. Avoid large intake of vitamin-K containing foods diet. (Same As: Coumadin) WASTE: F/P - P Waste Black; E - P Waste Black Inactive 08/05/2015 [facility] Coreg 3.125 mg, 1 tab, Route: PO, Drug form: TAB, Q12H, Dosing Weight 99.574, kg, Priority: NOW, Start date: 08/04/15 20:48:00, Duration: 30 day, Stop date: 09/03/15 9:00:00Notes: Give with food. (Same As: Coreg) No Longer Active 08/05/2015 [facility] Warfarin 10 mg, 1 tab, Route: PO, Drug form: TAB, Q5PM, Dosing Weight 99.574, kg, Start date: 08/04/15 17:00:00, Duration: 1 doses or times, Stop date: 08/04/15 17:00:00Notes: Nurse to ensure documentation of pa tient education per anticoagulation policy. Avoid large intake of vitamin-K containing foods diet. (Same As: Coumadin) WASTE: F/P - P Waste Black; E - P Waste Black Inactive 08/04/2015 [facility] Prednisone 10 mg, 1 tab, Route: PO, Drug form: TAB, Daily, Dosing Weight 99.574, kg, Start date: 08/04/15 9:00:00 CDT, Stop date: 09/02/15 9:00:00 CDTNotes: (Same as: PredniSONE) Take with food. No Longer Active 08/04/2015 [facility] Coumadin 7.5 mg, 1 tab, Route: PO, Drug form: TAB, Q5PM, Dosing Weight 99.574, kg, Start date: 08/03/15 17:00:00, Duration: 1 doses or times, Stop date: 08/03/15 17:00:00Notes: Nurse to ensure documentation of p atient education per anticoagulation policy. Avoid large intake of vitamin-K containing foods diet. WASTE: F/P - P Waste Black; E - P Waste Black (Same As: Coumadin) Inactive 08/03/2015 [facility] K-Dur 20 40 mEq, 2 tab, Route: PO, Drug form: ERTAB, ONCE, Start date: 08/03/15 14:00:00, Stop date: 08/03/15 14:00:00Notes: (Same as: K- Dur 20) "Do Not Crush" With food and full glass of water Inactive 08/03/2015 [facility] Flonase 0.05 mg/inh nasal spray 2 spray, Route: Each Affected Nostril, Drug Form: SPRY, Dosing Weight 99.574, kg, Daily, NOW, Start date: 08/02/15 18:04:00, Stop date: 09/01/15 9:00:00Notes: (Same as: Flonase) No Longer Active 08/02/2015 [facility] Budesonide 0.25 MG/ML Inhalant Solution [Pulmicort] 0.5 mg, 2 mL, Route: NEB, Drug form: SUSP, BID, Dosing Weight 99.574, kg, Priority: NOW, Start date: 08/02/15 17:58:00, Duration: 30 day, Stop date: 09/01/15 17:00:00Notes: (Same As: Pulmicort) No Longer Active 08/02/2015 [facility] Coumadin 7.5 mg, 1 tab, Route: PO, Drug form: TAB, Q5PM, Dosing Weight 99.574, kg, Start date: 08/02/15 17:00:00, Duration: 1 doses or times, Stop date: 08/02/15 17:00:00Notes: Nurse to ensure documentation of p atient education per anticoagulation policy. Avoid large intake of vitamin-K containing foods diet. WASTE: F/P - P Waste Black; E - P Waste Black (Same As: Coumadin) Inactive 08/02/2015 [facility] Albuterol 0.83 MG/ML Inhalant Solution 2.49 mg, 3 mL, Route: PO, Drug form: SOLN, RQ4H, Dosing Weight 99.574, kg, PRN Wheezing, Start date: 08/02/15 10:21:00, Duration: 30 day, Stop date: 09/01/15 10:20:00Notes: SEE RT DOCUMENTATION (Same as: Proventil) No Longer Active 08/02/2015 [facility] Coumadin 7.5 mg, 1 tab, Route: PO, Drug form: TAB, Q5PM, Start date: 08/01/15 17:00:00, Duration: 1 day, Stop date: 08/01/15 17:00:00Notes: Nurse to ensure documentation of patient education per anticoagulation policy. Avoid large intake of vitamin-K containing foods diet. WASTE: F/P - P Waste Black; E - P Waste Black (Same As: Coumadin) Inactive 08/01/2015 [facility] Warfarin 5 mg, Route: PO, Q5PM, Dosing Weight 99.574, kg, Start date: 08/01/15 17:00:00, Duration: 1 doses or times, Stop date: 08/01/15 17:00:00 Inactive 08/01/2015 [facility] Bumex 1 mg, 1 tab, Route: PO, Drug form: TAB, Daily, Dosing Weight 99.574, kg, Start date: 08/01/15 9:00:00, Duration: 30 day, Stop date: 08/30/15 9:00:00Notes: (Same As: Bumex) No Longer Active 08/01/2015 [facility] trazodone 50 mg oral tablet 25 mg, 0.5 tab, Route: PO, Drug form: TAB, ONCE, Dosing Weight 99.574, kg, Start date: 07/31/15 23:00:00, Stop date: 07/31/15 23:00:00Notes: (Same As: Desyrel) Inactive 08/01/2015 [facility] Trazodone 25 mg, 0.5 tab, Route: PO, Drug form: TAB, ONCE, Dosing Weight 99.574, kg, PRN Sleep, Start date: 07/31/15 21:49:00, Stop date: 07/31/15 21:49:00Notes: (Same As: Desyrel) Inactive 08/01/2015 [facility] Warfarin 5 mg, 1 tab, Route: PO, Drug form: TAB, Q5PM, Dosing Weight 99.574, kg, Start date: 07/31/15 17:00:00, Duration: 1 doses or times, Stop date: 07/31/15 17:00:00Notes: Nurse to ensure documentation of pat ient education per anticoagulation policy. Avoid large intake of vitamin-K containing foods diet. WASTE: F/P - P Waste Black; E - P Waste Black (Same As: Coumadin) Inactive 07/31/2015 [facility] Lactulose 20 gm, 30 ml, Route: PO, Drug Form: SYRP, Dosing Weight 99.574, kg, ONCE, PRN Constipation, Start date: 07/31/15 9:55:00, Stop date: 08/30/15 9:54:00Notes: (Same as:Chronulac) Inactive 07/31/2015 [facility] azithromycin 250 mg oral tablet 250 mg, 1 tab, Route: PO, Drug form: TAB, Daily, Dosing Weight 99.574, kg, Start date: 07/31/15 9:00:00, Duration: 4 day, Stop date: 08/03/15 9:00:00Notes: Take 1 hour before or 2 hours after meals. (Same As: Zithromax) No Longer Active 07/31/2015 [facility] Lidocaine Hydrochloride 10 MG/ML Injectable Solution 100 mg, 10 mL, Route: IV, Drug Form: INJ, Dosing Weight 99.574, kg, ONCE, Start date: 07/30/15 20:34:00, Stop date: 07/30/15 20:34:00Notes: (Same as: Xylocaine) Inactive 07/31/2015 [facility] Lidocaine Hydrochloride 20 MG/ML Injectable Solution 200 mg, 10 mL, Route: SUB-Q, Drug Form: INJ, Dosing Weight 99.574, kg, ONCE, Start date: 07/30/15 18:53:00, Stop date: 07/30/15 18:53:00Notes: Syringe (Same as: Xylocaine) Inactive 07/30/2015 [facility] azithromycin 500 mg oral tablet 500 mg, 2 tab, Route: PO, Drug form: TAB, Daily, Dosing Weight 99.574, kg, Priority: STAT, Start date: 07/30/15 18:45:00, Duration: 1 doses or times, Stop date: 07/30/15 18:45:00Notes: Take 1 hour before or 2 hours after meals. (Same As: Zithromax) Inactive 07/30/2015 [facility] Albuterol 0.833 MG/ML / Ipratropium [place] 0.167 MG/ML Inhalant Solution 3 ml, Route: NEB, Drug Form: SOLN, Dosing Weight 99.574, kg, RQ4H, STAT, Start date: 07/30/15 18:45:00, Duration: 30 day, Stop date: 08/29/15 15:00:00Notes: (Same as: Duoneb) No Longer Active 07/30/2015 [facility] Prednisone 60 mg, 3 tab, Route: PO, Drug form: TAB, Daily, Dosing Weight 99.574, kg, Priority: STAT, Start date: 07/30/15 18:45:00, Duration: 30 day, Stop date: 08/29/15 9:00:00Notes: Take with food. No Longer Active 07/30/2015 [facility] Magnesium Sulfate 2 gm, 50 mL, Route: IVPB, Drug form: INJ, ONCE, Dosing Weight 99.574, kg, Start date: 07/30/15 15:19:00, Duration: 2 hr, Stop date: 07/30/15 15:19:00Notes: WASTE: F/P - Sink; E - Municipal Trash Bin Inactive 07/30/2015 [facility] Tylenol 650 mg, 2 tab, Route: PO, Drug form: TAB, ONCE, Dosing Weight 99.574, kg, Start date: 07/30/15 1:27:00, Stop date: 07/30/15 1:27:00Notes: Do not exceed 4 gm/day. (Same as: Tylenol) Inactive 07/30/2015 [facility] Magnesium Sulfate 2 gm, 50 mL, Route: IVPB, Drug form: INJ, ONCE, Dosing Weight 99.574, kg, Start date: 07/29/15 10:51:00, Duration: 2 hr, Stop date: 07/29/15 10:51:00Notes: WASTE: F/P - Sink; E - Municipal Trash Bin Inactive 07/29/2015 [facility] Bumex 1 mg, 4 mL, Route: IVP, Drug form: INJ, Daily, Dosing Weight 99.574, kg, Priority: NOW, Start date: 07/29/15 10:17:00, Duration: 30 day, Stop date: 08/28/15 9:00:00Notes: (Same As: Bumex) No Longer Active 07/29/2015 [facility] ketoconazole topical 2% shampoo 1 appl, Route: SHAMPOO, QSat, Drug form: SHMP, Start date: 07/29/15 9:00:00, Duration: 30 day, Stop date: 08/26/15 9:00:00Notes: Non-Formulary Drug (Same as:Nizoral Topical) No Longer Active 07/29/2015 [facility] normal saline 0.9% IV 1,000 mL 1,000 mL, Rate: 50 ml/hr, Infuse over: 20 hr, Route: IVPB, Dosing Weight 99.574 kg, Total Volume: 1,000, Start date: 07/27/15 22:04:00, Duration: 30 day, Stop date: 08/26/15 22:03:00 No Longer Active 07/28/2015 [facility] hydrocortisone topical 2.5% cream 1 appl, Route: TOP, BID, Drug form: CRM, PRN Itching, Start date: 07/26/15 14:53:00, Duration: 30 day, Stop date: 08/25/15 14:52:00 No Longer Active 07/26/2015 [facility] Ketoconazole 20 MG/ML Medicated Shampoo 1 appl, Route: TOP, QWed, Drug form: SHMP, Start date: 07/26/15 14:50:00, Duration: 30 day, Stop date: 08/23/15 15:00:00Notes: Non-Formulary Drug (Same as:Nizoral Topical) No Longer Active 07/26/2015 [facility] tiotropium 0.018 MG/ACTUAT Inhalant Powder [Spiriva] 18 microgram, 1 inhalation, Route: INHALATION, Drug form: CAP, Daily, Dosing Weight 99.574, kg, Start date: 07/26/15 9:00:00, Duration: 30 day, Stop date: 08/24/15 9:00:00Notes: (Same As: Spiriva) No Longer Active 07/26/2015 [facility] Clonidine Hydrochloride 0.1 MG Oral Tablet 0.1 mg, 1 tab, Route: PO, Drug form: TAB, TID, Dosing Weight 99.574, kg, Start date: 07/22/15 17:00:00, Duration: 30 day, Stop date: 08/21/15 13:00:00Notes: (Same As: Catapres) No Longer Active 07/22/2015 [facility] Remeron 30 mg, 2 tab, Route: PO, Drug form: TAB, Bedtime, Dosing Weight 99.574, kg, Start date: 07/21/15 21:00:00, Duration: 30 day, Stop date: 08/19/15 21:00:00Notes: (Same as:Remeron) Inactive 07/22/2015 [facility] Mirtazapine 30 mg, 1 tab, Route: PO, Drug form: TAB, Bedtime, Dosing Weight 99.574, kg, Start date: 07/21/15 21:00:00, Duration: 30 day, Stop date: 09/18/15 21:00:00Notes: (Same as:Remeron) No Longer Active 07/22/2015 [facility] Hydrocortisone-Aloe 0.5% topical cream 1 appl, Route: TOP, BID, Drug form: CRM, Start date: 07/21/15 9:00:00, Duration: 30 day, Stop date: 08/19/15 17:00:00 No Longer Active 07/21/2015 [facility] Aspirin 81 mg, 1 tab, Route: PO, Drug form: ECTAB, Daily, Dosing Weight 99.574, kg, Start date: 07/21/15 9:00:00, Duration: 30 day, Stop date: 09/18/15 9:00:00Notes: Do not crush or chew. (Same As: Ecotrin) No Longer Active 07/21/2015 [facility] Clonidine Hydrochloride 0.1 MG Oral Tablet 0.1 mg, 1 tab, Route: PO, Drug form: TAB, QID, Dosing Weight 99.574, kg, Start date: 07/21/15 9:00:00, Duration: 30 day, Stop date: 08/19/15 21:00:00Notes: (Same As: Catapres) No Longer Active 07/21/2015 [facility] Folic Acid 1 mg, 1 tab, Route: PO, Drug form: TAB, Daily, Dosing Weight 99.574, kg, Start date: 07/21/15 9:00:00, Duration: 30 day, Stop date: 09/18/15 9:00:00Notes: (Same as: Folvite) No Longer Active 07/21/2015 [facility] Thiamine 100 mg, 1 tab, Route: PO, Drug form: TAB, Daily, Dosing Weight 99.574, kg, Start date: 07/21/15 9:00:00, Duration: 30 day, Stop date: 09/18/15 9:00:00Notes: (Same As: Vitamin B1) No Longer Active 07/21/2015 [facility] heparin additive 25,000 unit [18 unit/kg/hr] + Premix Diluent Dextrose 5% 500 mL 500 mL, Rate: 31.1 ml/hr, Infuse over: 16.1 hr, Route: IV, Dosing Weight 86.39 kg, Total Volume: 500 mL, Start date: 07/21/15 3:49:00, Duration: 30 day, Stop date: 08/20/15 3:48:00 No Longer Active 07/21/2015 [facility] Heparin 40 unit/kg Bolus (Heparin Dosing Weight) Route: IVP, PRN, 3,500 unit, 3.5 mL, Drug form: INJ, PRN, Heparin Protocol, Start date: 07/21/15 3:49:00 Stop date: 08/20/15 3:48:00, 30 day No Longer Active 07/21/2015 [facility] Heparin 80 unit/kg Bolus (Heparin Dosing Weight) Route: IVP, PRN, 6,900 unit, 6.9 mL, Drug form: INJ, PRN, Heparin Protocol, Start date: 07/21/15 3:49:00 Stop date: 08/20/15 3:48:00, 30 day No Longer Active 07/21/2015 [facility] tramadol hydrochloride 50 MG Oral Tablet 50 mg, 1 tab, Route: PO, Drug form: TAB, Q6H, Dosing Weight 99.574, kg, PRN Pain Score 6-10, Start date: 07/21/15 3:33:00, Duration: 30 day, Stop date: 08/20/15 3:32:00Notes: Not to exceed 400mg/day. (Same As: Ultram) No Longer Active 07/21/2015 [facility] Artificial Tears 2 drp, Route: BOTH EYES, PRN, Drug form: SOLN, PRN as needed for dry eyes, Start date: 07/21/15 3:33:00 CDT, Duration: 30 day, Stop date: 09/19/15 3:32:00 CDT No Longer Active 07/21/2015 [facility] Nitroglycerin 0.4 MG Sublingual Tablet 0.4 mg, 1 tab, Route: SL, Drug form: TAB, Q5Min, Dosing Weight 99.574, kg, PRN Chest Pain, Start date: 07/21/15 3:33:00 CDT, Duration: 30 day, Stop date: 09/19/15 3:32:00 CDTNotes: (Same as:Nitroquick, Nitrostat) "Do Not Crush" Sublingual tablet No Longer Active 07/21/2015 [facility] Clonazepam 0.5 mg, 1 tab, Route: PO, Drug form: TAB, Q6H, Dosing Weight 99.574, kg, PRN Anxiety, Start date: 07/21/15 3:33:00, Duration: 30 day, Stop date: 08/20/15 3:32:00Notes: (Same As: KlonoPIN) No Longer Active 07/21/2015 [facility] Tylenol PO, Q6H, PRN Pain Score 1-5, 0 Refill(s) No Longer Active 07/21/2015 [facility] Hydrocortisone-Aloe 0.5% topical cream 1 appl, TOP, BID, # 30 gm, 0 Refill(s) No Longer Active 07/21/2015 [facility] Aspirin 81 mg, PO, Daily, 0 Refill(s) Active 07/21/2015 [facility] 24 HR Nicotine 0.875 MG/HR Transdermal Patch =1 patch, Transdermal, Daily, 0 Refill(s) No Longer Active 07/21/2015 [facility] Clonidine Hydrochloride 0.1 MG Oral Tablet 0.1 mg=1 tab, PO, QID, 0 Refill(s) No Longer Active 07/21/2015 [facility] clonazePAM 0.5 mg oral tablet 0.5 mg=1 tab, PO, PRN, Prn anxiety q 6 hrs, 0 Refill(s) No Longer Active 07/21/2015 [facility] mirtazapine 15 mg oral tablet 15 mg=1 tab, PO, Bedtime, # 30 tab, 0 Refill(s) No Longer Active 07/21/2015 [facility] Alprazolam 0.25 MG Oral Tablet 0.25 mg=1 tab, PO, BID, PRN anxiety, stress, # 20 tab, 0 Refill(s) No Longer Active 07/21/2015 [facility] tramadol hydrochloride 50 MG Oral Tablet 50 mg=1 tab, PO, Q6H, PRN Pain, PRN for pain q 6 hrs, 0 Refill(s) No Longer Active 07/21/2015 [facility] Nitroglycerin 0.4 MG Sublingual Tablet 0.4 mg=1 tab, SL, Q5Min, PRN Chest Pain, Give up to 3 doses. Call 911 if pain persists., # 25 tab, 3 Refill(s) No Longer Active 07/21/2015 [facility] Artificial Tears BOTH EYES, PRN, 1 drop each eye q 4 hours, 0 Refill(s) No Longer Active 07/21/2015 [facility] Allergies, Adverse Reactions, Alerts No Known Medication Allergies Immunizations No Data Provided for This Section Results Order Name Results Value Reference Range Date Interpretation Comments Source HEMATOLOGY PT 14.0 12.0 - 14.7 11/29/2015 [facility] [place] HEMATOLOGY INR 1.05 0.85 - 1.17 11/29/2015 [facility] [place] LIPIDS CHD Risk 3.28 4.00 - 7.30 11/29/2015 [facility] [place] LIPIDS Chol 210 <=199 mg/dL 11/29/2015 [facility] [place] LIPIDS Trig 69 <=149 mg/dL 11/29/2015 [facility] [place] LIPIDS HDL 64 >=61 mg/dL 11/29/2015 [facility] [place] LIPIDS VLDL 14 11/29/2015 [facility] [place] LIPIDS LDL (Calculated) 132 <=99 mg/dL 11/29/2015 [facility] [place] CARDIAC ENZYMES Troponin-I <0.02 0.00 - 0.40 11/29/2015 [facility] [place] CARDIAC ENZYMES Total CK 48 12 - 191 11/29/2015 [facility] [place] CARDIAC ENZYMES Troponin-I <0.02 0.00 - 0.40 2015 [facility] [place] CARDIAC ENZYMES Total CK 50 12 - 191 2015 [facility] [place] CARDIAC ENZYMES CK MB Index 4.7 0.0 - 2.5 2015 [facility] [place] CARDIAC ENZYMES BNP 92 <=100 pg/mL 2015 [facility] [place] CARDIAC ENZYMES Troponin-I <0.02 0.00 - 0.40 2015 [facility] [place] CARDIAC ENZYMES CK MB 2.7 0.5 - 3.6 2015 [facility] [place] CARDIAC ENZYMES Total CK 57 12 - 191 2015 [facility] [place] CHEM PANEL eGFR 96 2015 Result Comment: The eGFR is calculated [...] should be multiplied by the estimated BMI. [facility] CHEM PANEL ALT 26 0 - 65 2015 [facility] CHEM PANEL Albumin Lvl 3.7 3.5 - 5.0 2015 [facility] CHEM PANEL AST 16 0 - 37 2015 [facility] CHEM PANEL Calcium Lvl 8.6 8.5 - 10.5 2015 [facility] CHEM PANEL Total Protein 7.2 6.4 - 8.4 2015 [facility] CHEM PANEL AGAP 10.0 10.0 - 20.0 2015 [facility] CHEM PANEL Alk Phos 64 39 - 136 2015 [facility] [place] CHEM PANEL Bili Total 0.3 0.2 - 1.3 2015 [facility] CHEM PANEL CO2 29 24 - 32 2015 [facility] CHEM PANEL Chloride Lvl 106 95 - 109 2015 [facility] [place] CHEM PANEL Potassium Lvl 4.0 3.5 - 5.1 2015 [facility] CHEM PANEL A/G Ratio 1.1 0.7 - 1.6 2015 [facility] CHEM PANEL Globulin 3.5 2.0 - 4.0 2015 [facility] [place] CHEM PANEL B/C Ratio 13 6 - 25 2015 [facility] CHEM PANEL Sodium Lvl 141 135 - 145 2015 [facility] CHEM PANEL BUN 11 7 - 22 2015 [facility] CHEM PANEL Glucose Lvl 86 70 - 99 2015 [facility] CHEM PANEL Creatinine Lvl 0.86 0.50 - 1.40 2015 [facility] [place] HEMATOLOGY Segs-Bands # 7.8 1.5 - 8.1 2015 [facility] [place] HEMATOLOGY Basophils 0.9 0.0 - 1.0 2015 [facility] [place] HEMATOLOGY Basophils # 0.1 0.0 - 0.2 2015 [facility] [place] HEMATOLOGY Segs 67.3 45.0 - 75.0 2015 [facility] [place] HEMATOLOGY Monocytes # 0.7 0.0 - 0.8 2015 [facility] [place] HEMATOLOGY Lymphocytes # 3.0 1.0 - 5.5 2015 [facility] [place] HEMATOLOGY Eosinophils 0.2 0.0 - 4.0 2015 [facility] [place] HEMATOLOGY Lymphocytes 25.5 20.0 - 40.0 2015 [facility] Monocytes 6.1 2.0 - 12.0 2015 [facility] RBC 5.08 4.70 - 6.10 2015 [facility] WBC 11.6 3.7 - 10.4 2015 [facility] MPV 7.4 7.4 - 10.4 2015 [facility] Hct 43.6 42.0 - 54.0 2015 [facility] Hgb 14.0 14.0 - 18.0 2015 [facility] MCV 85.7 80.0 - 94.0 2015 [facility] MCH 27.5 27.0 - 31.0 2015 [facility] RDW 15.0 11.5 - 14.5 2015 [facility] Platelet 244 133 - 450 2015 [facility] MCHC 32.1 32.0 - 36.0 2015 [facility] [place] ELECTROLYTES AGAP 14.0 10.0 - 20.0 08/22/2015 [facility] ELECTROLYTES Calcium Lvl 8.3 8.5 - 10.5 08/22/2015 [facility] ELECTROLYTES CO2 26 24 - 32 08/22/2015 [facility] ELECTROLYTES eGFR 104 08/22/2015 Result Comment: The eGFR is calculated [...] should be multiplied by the estimated BMI. [facility] ELECTROLYTES Chloride Lvl 107 95 - 109 08/22/2015 [facility] ELECTROLYTES Potassium Lvl 4.0 3.5 - 5.1 08/22/2015 [facility] ELECTROLYTES Glucose Lvl 84 70 - 99 08/22/2015 [facility] ELECTROLYTES Sodium Lvl 143 135 - 145 08/22/2015 [facility] ELECTROLYTES BUN 11 7 - 22 08/22/2015 [facility] ELECTROLYTES Creatinine Lvl 0.71 0.50 - 1.40 08/22/2015 [facility] HEMATOLOGY Basophils # 0.0 0.0 - 0.2 08/22/2015 [facility] HEMATOLOGY Eosinophils 1.2 0.0 - 4.0 08/22/2015 [facility] HEMATOLOGY Monocytes 9.5 2.0 - 12.0 08/22/2015 [facility] HEMATOLOGY Monocytes # 0.6 0.0 - 0.8 08/22/2015 [facility] HEMATOLOGY Segs 59.2 45.0 - 75.0 08/22/2015 [facility] HEMATOLOGY Lymphocytes 29.8 20.0 - 40.0 08/22/2015 [facility] HEMATOLOGY Basophils 0.3 0.0 - 1.0 08/22/2015 [facility] HEMATOLOGY Segs-Bands # 3.8 1.5 - 8.1 08/22/2015 [facility] HEMATOLOGY Eosinophils # 0.1 0.0 - 0.5 08/22/2015 [facility] HEMATOLOGY Lymphocytes # 1.9 1.0 - 5.5 08/22/2015 [facility] HEMATOLOGY RBC 4.51 4.70 - 6.10 08/22/2015 [facility] HEMATOLOGY WBC 6.5 3.7 - 10.4 08/22/2015 [facility] HEMATOLOGY MCV 87.9 80.0 - 94.0 08/22/2015 [facility] HEMATOLOGY Hct 39.6 42.0 - 54.0 08/22/2015 [facility] HEMATOLOGY Hgb 12.7 14.0 - 18.0 08/22/2015 [facility] HEMATOLOGY MCHC 32.1 32.0 - 36.0 08/22/2015 [facility] HEMATOLOGY MCH 28.2 27.0 - 31.0 08/22/2015 [facility] HEMATOLOGY MPV 8.1 7.4 - 10.4 08/22/2015 [facility] HEMATOLOGY Platelet 161 133 - 450 08/22/2015 [facility] HEMATOLOGY RDW 16.3 11.5 - 14.5 08/22/2015 [facility] CARDIAC ENZYMES Troponin-I <0.02 0.00 - 0.40 08/19/2015 [facility] CARDIAC ENZYMES Total CK 54 12 - 191 08/19/2015 [facility] CARDIAC ENZYMES Troponin-I <0.02 0.00 - 0.40 08/18/2015 [facility] CARDIAC ENZYMES Total CK 30 12 - 191 08/18/2015 [facility] CARDIAC ENZYMES Troponin-I <0.02 0.00 - 0.40 08/18/2015 [facility] HEMATOLOGY PT 24.6 12.0 - 14.7 08/18/2015 [facility] HEMATOLOGY INR 2.18 0.85 - 1.17 08/18/2015 [facility] BACTERIAL - SEROLOGY MRSA by PCR Negative (08/18/15 1:44 PM) 08/18/2015 [facility] CARDIAC ENZYMES CK MB Index 3.2 0.0 - 2.5 08/18/2015 [facility] CARDIAC ENZYMES CK MB 2.0 0.5 - 3.6 08/18/2015 [facility] CARDIAC ENZYMES Total CK 62 12 - 191 08/18/2015 [facility] CHEM PANEL Lipase Lvl 114 73 - 393 08/18/2015 [facility] CHEM PANEL eGFR 97 08/18/2015 Result Comment: The eGFR is calculated [...] should be multiplied by the estimated BMI. [facility] CHEM PANEL AGAP 14.6 10.0 - 20.0 08/18/2015 [facility] CHEM PANEL CO2 23 24 - 32 08/18/2015 [facility] CHEM PANEL Calcium Lvl 8.7 8.5 - 10.5 08/18/2015 [facility] CHEM PANEL Globulin 3.6 2.0 - 4.0 08/18/2015 [facility] CHEM PANEL Total Protein 6.7 6.4 - 8.4 08/18/2015 [facility] CHEM PANEL Albumin Lvl 3.1 3.5 - 5.0 08/18/2015 [facility] CHEM PANEL AST 21 0 - 37 08/18/2015 [facility] CHEM PANEL ALT 36 0 - 65 08/18/2015 [facility] CHEM PANEL B/C Ratio 25 6 - 25 08/18/2015 [facility] CHEM PANEL Bili Total 0.4 0.2 - 1.3 08/18/2015 [facility] CHEM PANEL A/G Ratio 0.9 0.7 - 1.6 08/18/2015 [facility] CHEM PANEL Alk Phos 64 39 - 136 08/18/2015 [facility] CHEM PANEL Glucose Lvl 85 70 - 99 08/18/2015 [facility] CHEM PANEL BUN 21 7 - 22 08/18/2015 [facility] CHEM PANEL Creatinine Lvl 0.83 0.50 - 1.40 08/18/2015 [facility] CHEM PANEL Potassium Lvl 4.6 3.5 - 5.1 08/18/2015 [facility] CHEM PANEL Sodium Lvl 140 135 - 145 08/18/2015 [facility] CHEM PANEL Chloride Lvl 107 95 - 109 08/18/2015 [facility] HEMATOLOGY Basophils # 0.1 0.0 - 0.2 08/18/2015 [facility] HEMATOLOGY Eosinophils # 0.1 0.0 - 0.5 08/18/2015 [facility] HEMATOLOGY Monocytes # 1.0 0.0 - 0.8 08/18/2015 [facility] HEMATOLOGY Lymphocytes # 2.4 1.0 - 5.5 08/18/2015 [facility] HEMATOLOGY Eosinophils 0.5 0.0 - 4.0 08/18/2015 [facility] HEMATOLOGY Monocytes 7.3 2.0 - 12.0 08/18/2015 [facility] HEMATOLOGY Segs-Bands # 10.0 1.5 - 8.1 08/18/2015 [facility] HEMATOLOGY Basophils 0.4 0.0 - 1.0 08/18/2015 [facility] HEMATOLOGY Lymphocytes 18.0 20.0 - 40.0 08/18/2015 [facility] HEMATOLOGY Segs 73.8 45.0 - 75.0 08/18/2015 [facility] HEMATOLOGY Plt Morph Normal (08/18/15 9:22 AM) 08/18/2015 [facility] HEMATOLOGY RBC Morph Normal (08/18/15 9:22 AM) 08/18/2015 [facility] HEMATOLOGY Platelet 207 133 - 450 08/18/2015 Result Comment: Reviewed. [facility] HEMATOLOGY RBC 4.79 4.70 - 6.10 08/18/2015 [facility] HEMATOLOGY WBC 13.5 3.7 - 10.4 08/18/2015 [facility] HEMATOLOGY Hgb 13.7 14.0 - 18.0 08/18/2015 [facility] HEMATOLOGY Hct 42.1 42.0 - 54.0 08/18/2015 [facility] HEMATOLOGY RDW 16.1 11.5 - 14.5 08/18/2015 [facility] HEMATOLOGY MPV 7.7 7.4 - 10.4 08/18/2015 [facility] HEMATOLOGY MCH 28.5 27.0 - 31.0 08/18/2015 [facility] HEMATOLOGY MCV 87.9 80.0 - 94.0 08/18/2015 [facility] HEMATOLOGY MCHC 32.4 32.0 - 36.0 08/18/2015 [facility] ELECTROLYTES AGAP 11.7 10.0 - 20.0 08/17/2015 [facility] ELECTROLYTES eGFR 112 08/17/2015 Result Comment: The eGFR is calculated [...] should be multiplied by the estimated BMI. [facility] ELECTROLYTES Calcium Lvl 7.1 8.5 - 10.5 08/17/2015 [facility] ELECTROLYTES Creatinine Lvl 0.58 0.50 - 1.40 08/17/2015 [facility] ELECTROLYTES Sodium Lvl 146 135 - 145 08/17/2015 [facility] ELECTROLYTES BUN 13 7 - 22 08/17/2015 [facility] ELECTROLYTES Glucose Lvl 78 70 - 99 08/17/2015 [facility] ELECTROLYTES Chloride Lvl 115 95 - 109 08/17/2015 [facility] ELECTROLYTES CO2 23 24 - 32 08/17/2015 [facility] ELECTROLYTES Potassium Lvl 3.7 3.5 - 5.1 08/17/2015 [facility] HEMATOLOGY MCH 28.8 27.0 - 31.0 08/17/2015 [facility] HEMATOLOGY Hct 36.5 42.0 - 54.0 08/17/2015 [facility] HEMATOLOGY MCV 88.6 80.0 - 94.0 08/17/2015 [facility] HEMATOLOGY Hgb 11.8 14.0 - 18.0 08/17/2015 [facility] HEMATOLOGY Platelet 149 133 - 450 08/17/2015 [facility] HEMATOLOGY MCHC 32.5 32.0 - 36.0 08/17/2015 [facility] HEMATOLOGY RDW 15.4 11.5 - 14.5 08/17/2015 [facility] HEMATOLOGY MPV 7.2 7.4 - 10.4 08/17/2015 [facility] HEMATOLOGY WBC 8.5 3.7 - 10.4 08/17/2015 [facility] HEMATOLOGY RBC 4.12 4.70 - 6.10 08/17/2015 [facility] HEMATOLOGY Monocytes 7.1 2.0 - 12.0 08/17/2015 [facility] HEMATOLOGY Basophils 0.4 0.0 - 1.0 08/17/2015 [facility] HEMATOLOGY Segs-Bands # 5.8 1.5 - 8.1 08/17/2015 [facility] HEMATOLOGY Eosinophils 0.5 0.0 - 4.0 08/17/2015 [facility] HEMATOLOGY Lymphocytes 23.4 20.0 - 40.0 08/17/2015 [facility] HEMATOLOGY Segs 68.6 45.0 - 75.0 08/17/2015 [facility] HEMATOLOGY Lymphocytes # 2.0 1.0 - 5.5 08/17/2015 [facility] HEMATOLOGY Monocytes # 0.6 0.0 - 0.8 08/17/2015 [facility] HEMATOLOGY INR 2.09 0.85 - 1.17 08/17/2015 [facility] HEMATOLOGY PT 23.8 12.0 - 14.7 08/17/2015 [facility] HEMATOLOGY INR 1.84 0.85 - 1.17 08/16/2015 [facility] HEMATOLOGY PT 21.6 12.0 - 14.7 08/16/2015 [facility] HEMATOLOGY INR 2.24 0.85 - 1.17 08/15/2015 [facility] HEMATOLOGY PT 25.1 12.0 - 14.7 08/15/2015 [facility] ELECTROLYTES Potassium Lvl 4.2 3.5 - 5.1 08/14/2015 [facility] ELECTROLYTES Chloride Lvl 107 95 - 109 08/14/2015 [facility] ELECTROLYTES Creatinine Lvl 0.93 0.50 - 1.40 08/14/2015 [facility] ELECTROLYTES Sodium Lvl 140 135 - 145 08/14/2015 [facility] ELECTROLYTES BUN 27 7 - 22 08/14/2015 [facility] ELECTROLYTES Calcium Lvl 8.5 8.5 - 10.5 08/14/2015 [facility] ELECTROLYTES CO2 26 24 - 32 08/14/2015 [facility] ELECTROLYTES eGFR 91 08/14/2015 Result Comment: The eGFR is calculated [...] should be multiplied by the estimated BMI. [facility] ELECTROLYTES Glucose Lvl 84 70 - 99 08/14/2015 [facility] ELECTROLYTES AGAP 11.2 10.0 - 20.0 08/14/2015 [facility] CHEM PANEL Magnesium Lvl 2.2 1.8 - 2.4 08/10/2015 [facility] CHEM PANEL eGFR 102 08/10/2015 Result Comment: The eGFR is calculated [...] should be multiplied by the estimated BMI. [facility] CHEM PANEL Calcium Lvl 8.8 8.5 - 10.5 08/10/2015 [facility] CHEM PANEL CO2 28 24 - 32 08/10/2015 [facility] CHEM PANEL Chloride Lvl 106 95 - 109 08/10/2015 [facility] CHEM PANEL Potassium Lvl 4.2 3.5 - 5.1 08/10/2015 [facility] CHEM PANEL Sodium Lvl 140 135 - 145 08/10/2015 [facility] CHEM PANEL BUN 20 7 - 22 08/10/2015 [facility] CHEM PANEL Creatinine Lvl 0.74 0.50 - 1.40 08/10/2015 [facility] CHEM PANEL Glucose Lvl 78 70 - 99 08/10/2015 [facility] CHEM PANEL AGAP 10.2 10.0 - 20.0 08/10/2015 [facility] CHEM PANEL Phosphorus 3.7 2.5 - 4.5 08/10/2015 [facility] HEMATOLOGY RBC Morph Normal (08/10/15 5:29 AM) 08/10/2015 [facility] HEMATOLOGY Plt Morph Normal (08/10/15 5:29 AM) 08/10/2015 [facility] HEMATOLOGY Atypical Lymphs 0.0 <=0.0 % 08/10/2015 [facility] HEMATOLOGY Myelocytes 1.0 <=0.0 % 08/10/2015 [facility] HEMATOLOGY Metamyelocytes 1.0 0.0 - 1.0 08/10/2015 [facility] HEMATOLOGY Lymphocytes 24.0 20.0 - 40.0 08/10/2015 [facility] HEMATOLOGY Monocytes 6.0 2.0 - 12.0 08/10/2015 [facility] HEMATOLOGY Segs-Bands # 8.4 1.5 - 8.1 08/10/2015 [facility] HEMATOLOGY Bands 1.0 0.0 - 11.0 08/10/2015 [facility] HEMATOLOGY Monocytes # 0.7 0.0 - 0.8 08/10/2015 [facility] HEMATOLOGY Lymphocytes # 3.0 1.0 - 5.5 08/10/2015 [facility] HEMATOLOGY Segs 67.0 45.0 - 75.0 08/10/2015 [facility] HEMATOLOGY WBC 12.3 3.7 - 10.4 08/10/2015 [facility] HEMATOLOGY RBC 4.82 4.70 - 6.10 08/10/2015 [facility] HEMATOLOGY Hgb 13.6 14.0 - 18.0 08/10/2015 [facility] HEMATOLOGY MCH 28.3 27.0 - 31.0 08/10/2015 [facility] HEMATOLOGY Platelet 227 133 - 450 08/10/2015 [facility] HEMATOLOGY MCHC 32.4 32.0 - 36.0 08/10/2015 [facility] HEMATOLOGY RDW 15.3 11.5 - 14.5 08/10/2015 [facility] HEMATOLOGY MCV 87.2 80.0 - 94.0 08/10/2015 [facility] HEMATOLOGY Hct 42.0 42.0 - 54.0 08/10/2015 [facility] HEMATOLOGY MPV 7.2 7.4 - 10.4 08/10/2015 [facility] CHEM PANEL Magnesium Lvl 2.1 1.8 - 2.4 08/09/2015 [facility] CHEM PANEL Phosphorus 3.9 2.5 - 4.5 08/09/2015 [facility] HEMATOLOGY Myelocytes 1.0 <=0.0 % 08/09/2015 [facility] HEMATOLOGY RBC Morph Normal (08/09/15 4:34 AM) 08/09/2015 [facility] HEMATOLOGY Atypical Lymphs 1.0 <=0.0 % 08/09/2015 [facility] HEMATOLOGY Monocytes # 0.4 0.0 - 0.8 08/09/2015 [facility] HEMATOLOGY Segs-Bands # 7.7 1.5 - 8.1 08/09/2015 [facility] HEMATOLOGY Lymphocytes # 2.8 1.0 - 5.5 08/09/2015 [facility] HEMATOLOGY Plt Morph Normal (08/09/15 4:34 AM) 08/09/2015 [facility] HEMATOLOGY Lymphocytes 24.0 20.0 - 40.0 08/09/2015 [facility] HEMATOLOGY Monocytes 4.0 2.0 - 12.0 08/09/2015 [facility] HEMATOLOGY Segs 65.0 45.0 - 75.0 08/09/2015 [facility] HEMATOLOGY Bands 4.0 0.0 - 11.0 08/09/2015 [facility] HEMATOLOGY Metamyelocytes 1.0 0.0 - 1.0 08/09/2015 [facility] HEMATOLOGY MCV 88.1 80.0 - 94.0 08/09/2015 [facility] HEMATOLOGY MCHC 32.6 32.0 - 36.0 08/09/2015 [facility] HEMATOLOGY MCH 28.7 27.0 - 31.0 08/09/2015 [facility] HEMATOLOGY Hct 42.6 42.0 - 54.0 08/09/2015 [facility] HEMATOLOGY Hgb 13.9 14.0 - 18.0 08/09/2015 [facility] HEMATOLOGY MPV 7.4 7.4 - 10.4 08/09/2015 [facility] HEMATOLOGY RDW 15.4 11.5 - 14.5 08/09/2015 [facility] HEMATOLOGY Platelet 205 133 - 450 08/09/2015 [facility] HEMATOLOGY RBC 4.83 4.70 - 6.10 08/09/2015 [facility] HEMATOLOGY WBC 11.1 3.7 - 10.4 08/09/2015 [facility] CHEM PANEL Magnesium Lvl 2.2 1.8 - 2.4 08/08/2015 [facility] CHEM PANEL Phosphorus 4.1 2.5 - 4.5 08/08/2015 [facility] HEMATOLOGY Eosinophils # 0.2 0.0 - 0.5 08/08/2015 [facility] HEMATOLOGY Basophils # 0.1 0.0 - 0.2 08/08/2015 [facility] HEMATOLOGY Plt Morph Normal (08/08/15 3:55 AM) 08/08/2015 [facility] HEMATOLOGY RBC Morph Normal (08/08/15 3:55 AM) 08/08/2015 [facility] HEMATOLOGY Basophils 0.5 0.0 - 1.0 08/08/2015 [facility] HEMATOLOGY Eosinophils 1.2 0.0 - 4.0 08/08/2015 [facility] HEMATOLOGY Basophils 0.7 0.0 - 1.0 08/07/2015 [facility] HEMATOLOGY Eosinophils 0.4 0.0 - 4.0 08/07/2015 [facility] HEMATOLOGY Basophils # 0.1 0.0 - 0.2 08/07/2015 [facility] HEMATOLOGY PTT 69.5 22.9 - 35.8 08/06/2015 [facility] HEMATOLOGY Toxic Gran See Note 1 (08/06/15 3:33 AM) None Seen 08/06/2015 Result Comment: Slight [facility] HEMATOLOGY Atypical Lymphs 0.0 <=0.0 % 08/06/2015 [facility] HEMATOLOGY Bands 1.0 0.0 - 11.0 08/06/2015 [facility] HEMATOLOGY PTT 64.0 22.9 - 35.8 08/05/2015 [facility] HEMATOLOGY Toxic Gran slight 08/05/2015 [facility] HEMATOLOGY PTT 68.9 22.9 - 35.8 08/05/2015 [facility] HEMATOLOGY Anisocyte 1+ *ABN* (07/31/15 10:41 AM) None Seen 07/31/2015 [facility] HEMATOLOGY Basophils # 0.2 0.0 - 0.2 07/31/2015 [facility] CHEM PANEL Lactic Acid Lvl 1.0 0.5 - 2.2 07/30/2015 [facility] HEMATOLOGY POC Activated Clotting Time 206 07/28/2015 [facility] HEMATOLOGY Eosinophils # 0.1 0.0 - 0.5 07/28/2015 [facility] HEMATOLOGY Eosinophils # 0.1 0.0 - 0.5 07/27/2015 [facility] LIPIDS HDL 45 >=61 mg/dL 07/25/2015 [facility] LIPIDS Chol 162 <=199 mg/dL 07/25/2015 [facility] LIPIDS Trig 74 <=149 mg/dL 07/25/2015 [facility] LIPIDS VLDL 15 07/25/2015 [facility] LIPIDS LDL (Calculated) 102 <=99 mg/dL 07/25/2015 [facility] LIPIDS CHD Risk 3.60 4.00 - 7.30 07/25/2015 [facility] CARDIAC ENZYMES Troponin-I 0.09 0.00 - 0.40 07/21/2015 [facility] CARDIAC ENZYMES Troponin-T 0.035 0.000 - 0.100 07/21/2015 [facility] CARDIAC ENZYMES Total CK 36 12 - 191 07/21/2015 [facility] CARDIAC ENZYMES Troponin-I 0.10 0.00 - 0.40 07/21/2015 [facility] CARDIAC ENZYMES Total CK 32 12 - 191 07/21/2015 [facility] CARDIAC ENZYMES BNP 158 <=100 pg/mL 07/21/2015 [facility] CHEM PANEL A/G Ratio 0.9 0.7 - 1.6 07/21/2015 [facility] CHEM PANEL Bili Total 0.8 0.2 - 1.3 07/21/2015 [facility] CHEM PANEL Alk Phos 59 39 - 136 07/21/2015 [facility] CHEM PANEL Globulin 3.3 2.0 - 4.0 07/21/2015 [facility] CHEM PANEL B/C Ratio 14 6 - 25 07/21/2015 [facility] CHEM PANEL AST 6 0 - 37 07/21/2015 [facility] CHEM PANEL ALT 15 0 - 65 07/21/2015 [facility] CHEM PANEL Albumin Lvl 2.9 3.5 - 5.0 07/21/2015 [facility] CHEM PANEL Total Protein 6.2 6.4 - 8.4 07/21/2015 [facility] CHEM PANEL Amylase Lvl 46 25 - 115 07/21/2015 [facility] CHEM PANEL Lipase Lvl 85 73 - 393 07/21/2015 [facility] SPECIAL CHEMISTRY Hgb A1C 5.4 <=5.6 % 07/21/2015 [facility] Pathology Reports No Data Provided for This Section Diagnostic Reports Report Value Date Source Chest CTA Patient Name: ALETHA LOWERY : 1955; Age: 59 years Male MR: [id number] Study: Chest CTA 2015 3:09 PM CDT [...] Artie at 2015 6:09 PM CDT. SL: ANGELY 2015 [facility] 1view DX Study: Chest 1view DX Clinical Indication: Dyspnea Comparison: Chest x-ray from 08/21/2015 FINDINGS: Left sided dual-chamber pacemaker is stable. Cardiac silhouette is normal in size. Small right pleural effusion is seen. There is no pneumothorax. The osseous structures are unremarkable. IMPRESSION: Small right pleural effusion SL: [id number] 2015 [facility] 1view DX Patient Name: ALETHA LOWERY. : 1955; Age: 59 years y/o; Male. MR: [id number]. Ordering Physician: Jocy Bailon MD. PORTABLE CHEST [...] Left lung is unremarkable. SL: [id number] 08/21/2015 [facility] Knee 1-2 Views Bilateral DX Two-view bilateral [...] knee joint effusion suspected. SL: [id number] 08/20/2015 [facility] Brain wo contrast CT Patient Name: ALETHA LOWERY : 1955; Age: 59 years; Gender: Male MR: [id number] Ordering Physician: Piter Leslie MD PROCEDURE: CT head without contrast INDICATION: Pain Post Trauma. Fall with trauma to the frontal area. Patient is on blood thinners. TECHNIQUE: CT images were obtained from the foramen magnum to the vertex without the use of intravenous contrast on a multidetector CT. Total CT radiation dose: ELQ=7594 mGy-cm COMPARISON: None. FINDINGS: No evidence for [...] 3. Possible mild right maxillary sinusitis. SL: [id number] 08/20/2015 [facility] Chest 1view DX CHEST RADIOGRAPH ONE VIEW [...] and/or thickening. 3. Enlarged cardiac silhouette. SL: [id number] 08/18/2015 [facility] Chest 1view DX EXAM: XR CHEST 1 VIEW DATE: 08/06/2015 8:49 AM CDT INDICATION: Coughing. FINDINGS: Comparison is made to August 01. The cardiomediastinal silhouette, life-support lines and tubes are stable. The lungs are clear of consolidation. There are calcified granulomas in the right lower lobe. No pleural effusions are identified. IMPRESSION: No acute abnormality. 08/06/2015 [facility] Chest 1view DX EXAM: XR CHEST 1 VIEW DATE: 08/02/2015 10:20 AM CDT INDICATION: Abnormal chest sounds COMPARISON: Chest x-ray from 07/30/2015 TECHNIQUE: AP chest FINDINGS: Stable right arm PICC. Stable left implantable cardiac defibrillator Stable cardiomediastinal silhouette. Small right pleural effusion versus pleural thickening. No new pleural or parenchymal based abnormalities. IMPRESSION: No significant change. 08/02/2015 [facility] Chest 1view DX EXAM: XR CHEST 1 VIEW DATE: 07/30/2015 7:41 PM CDT INDICATION: Dyspnea COMPARISON: Yesterday TECHNIQUE: AP chest FINDINGS: Stable right arm PICC. Stable left implantable cardiac defibrillator Stable cardiomediastinal silhouette. Small right pleural effusion versus pleural thickening. No new pleural or parenchymal based abnormalities. IMPRESSION: No significant changes compared to yesterday. 07/30/2015 [facility] HVI VAS Venous Lower Ext Bilat Doppler [...] no evidence of deep venous thrombosis. 07/29/2015 [facility] Chest 1view DX EXAM: XR CHEST 1 VIEW DATE: 07/29/2015 9:47 AM CDT INDICATION: Shortness of Breath COMPARISON: 07/21/2015 TECHNIQUE: AP chest FINDINGS: Stable right arm PICC. Stable left implantable cardiac defibrillator Stable cardiomediastinal silhouette. Small right pleural effusion. No new pleural or parenchymal based abnormalities. IMPRESSION: No significant changes compared to yesterday at 2:24 AM 07/29/2015 [facility] HVI VAS Arterial Extracranial Doppler Bi INDICATION: [...] was noted in the vertebral arteries. 07/21/2015 [facility] Chest 1view DX EXAM: XR CHEST 1 [...] tip overlies the right brachiocephalic vein. 07/21/2015 [facility] Consultation Notes No Data Provided for This Section Discharge Summaries No Data Provided for This Section History and Physicals No Data Provided for This Section Vital Signs Vital Sign Value Date Comments Source Systolic (mm Hg) 109 12/02/2015 [facility] [place] Diastolic (mm Hg) 76 12/02/2015 [facility] [place] Respitory Rate 22 12/02/2015 [facility] [place] Heart Rate 87 12/02/2015 [facility] [place] Temperature Oral (F) 97.6 F 12/02/2015 [facility] [place] Systolic (mm Hg) 122 12/02/2015 [facility] [place] Diastolic (mm Hg) 82 12/02/2015 [facility] [place] Heart Rate 74 12/02/2015 [facility] [place] Temperature Oral (F) 97.3 F 12/02/2015 [facility] [place] Respitory Rate 21 12/02/2015 [facility] [place] Temperature Oral (F) 97.3 F 12/02/2015 [facility] [place] Heart Rate 73 12/02/2015 [facility] [place] Systolic (mm Hg) 104 12/02/2015 [facility] [place] Diastolic (mm Hg) 67 12/02/2015 [facility] [place] Respitory Rate 16 12/02/2015 [facility] [place] Height 182.88 cm 2015 [facility] [place] BMI Calculated 31.53 2015 [facility] [place] Weight 105.455 2015 [facility] [place] Weight 113.636 2015 [facility] [place] Height 182.88 cm 2015 [facility] [place] BMI Calculated 33.98 2015 [facility] [place] Respitory Rate 20 08/23/2015 [facility] Heart Rate 83 08/23/2015 [facility] Temperature Oral (F) 97.4 F 08/23/2015 [facility] Systolic (mm Hg) 107 08/23/2015 [facility] Diastolic (mm Hg) 53 08/23/2015 [facility] Temperature Oral (F) 97.7 F 08/23/2015 [facility] Heart Rate 82 08/23/2015 [facility] Respitory Rate 20 08/23/2015 [facility] Systolic (mm Hg) 130 08/23/2015 [facility] Diastolic (mm Hg) 84 08/23/2015 [facility] Respitory Rate 20 08/23/2015 [facility] Temperature Oral (F) 97.3 F 08/23/2015 [facility] Systolic (mm Hg) 128 08/23/2015 [facility] Diastolic (mm Hg) 85 08/23/2015 [facility] Height 182.88 cm 08/18/2015 [facility] Weight 95 08/18/2015 [facility] BMI Calculated 28.4 08/18/2015 [facility] Heart Rate 83 08/18/2015 [facility] Systolic (mm Hg) 125 08/18/2015 [facility] Diastolic (mm Hg) 82 08/18/2015 [facility] Heart Rate 105 08/18/2015 [facility] Respitory Rate 18 08/18/2015 [facility] Temperature Oral (F) 97.9 F 08/18/2015 [facility] Heart Rate 83 08/18/2015 [facility] Respitory Rate 18 08/18/2015 [facility] Systolic (mm Hg) 91 08/18/2015 [facility] Diastolic (mm Hg) 67 08/18/2015 [facility] Temperature Oral (F) 97.7 F 08/17/2015 [facility] Systolic (mm Hg) 102 08/17/2015 [facility] Diastolic (mm Hg) 71 08/17/2015 [facility] Respitory Rate 18 08/17/2015 [facility] Heart Rate 81 08/17/2015 [facility] Temperature Oral (F) 97.7 F 08/17/2015 [facility] BMI Calculated 29.77 07/21/2015 [facility] Weight 99.574 07/21/2015 [facility] Height 182.88 cm 07/21/2015 [facility] Encounters Location Location Details Encounter Type Encounter Number Reason For Visit Attending Provider ADM Date DC Date Status Source [facility] Inpatient [id number] Arie Chung 07/21/2015 08/18/2015 [facility] OBS Observation Patient [id number] Elham Bryson 08/18/2015 08/23/2015 [facility] Inpatient [id number] Octavio Dc Jr 2015 12/02/2015 [facility] [place] Procedures Procedure Code Date Perfomer Comments Source Insertion of cardiac pacemaker [id number] [facility] [place] Assessment and Plan Assessment and Plan Date Source Extracted from:Title: Clinical Document Author: Jana Monson MD Date: 12/02/15 [facility] Progress Note Impression: Prior [...] function. chronic a-fib. Objective: Vitals and Temp: Vitals Tmp(F) Pulse BP RR SpO2 FIO2 12/01 11:03 97.6 87 109/76 22 97 --- 12/01 08:43 97.3 74 122/82 -- --- --- 12/01 07:16 ---- --- ----- 21 98 1.0L/m 12/01 07:15 ---- --- ----- -- 98 1.0L/m 12/01 03:08 97.3 73 104/67 16 98 3.0L/m 24 Hr Tmax: 98F (36.67c) at 11/30 16:00 Vital Signs are the last 5 in the past 48 hours. General: Awake and Alert, NAD HEENT: Neck Supple, No JVD CVS: Regular rate, Normal S1S2 LUNGS: mildly decreased bs ABD: Soft, Non-tender, + BS EXT: No edema, Skin: No ulcers Neuro: Awake and Alert, Labs (Last four charted values) WBC H 11.6 (NOV 27) Hgb 14.0 (NOV 27) Hct 43.6 (NOV 27) Plt 244 (NOV 27) Na 141 (NOV 27) K 4.0 (NOV 27) CO2 29 (NOV 27) Cl 106 (NOV 27) Cr 0.86 (NOV 27) BUN 11 (NOV 27) Glucose Random 86 (NOV 27) Ca 8.6 (NOV 27) PT 14.0 (NOV 28) INR 1.05 (NOV 28) Troponin <0.02 (NOV 27) <0.02 (NOV 27) <0.02 (NOV 27) CK MB 2.7 (NOV 27) Total CK 48 (NOV 27) 50 (NOV 27) 57 (NOV 27) Scheduled Meds (13): 12/02/15 QUEtiapine (SEROquel) [...] mg PO Daily Continuous Infusions: None Extracted from:Title: Hospitalist History and Physical Author: Octavio Wells MD Date: 11/28/15 Assessment/Plan 1.Pulmonary embolism There is no way to know if this is acute versus chronic without his prior CTA of the chest done at the [facility]. Those records would be helpful, to [...] mg, 3.01 mL, Route: INHALATION, Drug form: MARTINA, RQ6H, Dosing Weight 113.636, kg, Start date: [...] Q8H, Dosing Weight 113.636, kg, PRN Nausea and Vomiting, Start date: 11/28/15 15:24:00 CDT, Duration: [...] w/calculated LDL Nebulizer Treatment Notify MD Notify Notify MD Notify MD Patient Assessment by Respiratory Care Provide Education AC4 PT Pulse Oximetry - Continuous Resuscitation (Code) Status Telemetry (e.g. Acute Care Floor) Troponin-I Vital Signs Prophylaxis On treatment dose of lovenox Disposition I doubt any true acuity in his diagnosis. Will plan for discharge tomorrow. Will likely need SW assistance. [facility] Providers Hospitalist Service is primary. Call with questions. 12/02/2015 BAL[facility] Rosales Extracted from:Title: Discharge Summary Author: Jocy Bailon MD Date: 08/23/15 <Discharge Summary> Attending: Elham Bryson MD Service: Internal Medicine Code status: None Specified=FULL CODE Reason for Admission: CHEST PAIN, BRADYCARDIA, SUICIDAL IDEATION Working DRG: None Documented Isolation: None Documented Consulting Physicians: Humberto Beavers MD Office: MSO: [id number] Service: Cardiology Piter Leslie MD Office: MSO: [id number] Service: Medicine Jocy Bailon MD Office: MSO: [id number] Service: Medicine Elham Bryson MD Office: MSO: [id number] Service: Medicine Admission Date: 08/18/2015 Discharge Date: 08/23/2015 [...] dx iwth PE, who was sent from [facility] for an episode of bradycardia and hypoxia. [...] Labs / Imaging: See Care4 Physical Exam: Vitals Tmp(F) Pulse BP RR SpO2 FIO2 08/22 12:14 97.4 83 107/53 20 96 --- 04/20 09:01 ---- --- ----- -- 99 --- 08/22 07:52 97.7 82 130/84 20 97 --- 08/22 04:37 97.3 82 128/85 20 97 --- 08/21 22:58 98.5 79 142/93 20 95 --- 24 Hr Tmax: 97.7F (36.50c) at 08/22 07:52 Vital Signs are the last 5 in the past 48 hours. Gen: NAD, Alert, disheveled CV: Reg, +S1, S2, PMI ND Lungs: CTA B/L with distant BS but good air flow, symm excursion Abd: +BS, soft, NT/ND, no masses Ext: No edema Skin: No rashes or lesions visible Follow-up: F/U with PCP in 1 week after discharge from [facility] I have spent 35 min with the patient and in coordinating discharge. Extracted from:Title: [facility] Cardiology Consult Note Author: Rosemary Vasquez MD [...] consult. Patient okay to discharge back to [facility]. He should follow-up with PCP or Axle Turner upon discharge. 08/23/2015 [facility] Extracted from:Title: Clinical Document Author: Arie Chung MD Date: 08/16/15 Acute Care Service Line Progress Note Pager#[phone] Attending: Arie Chung Subjective: complains of back [...] clonazePAM Continuous Infusions: None Vitals and Temp: Vitals Tmp(F) Pulse BP RR SpO2 FIO2 08/15 13:11 ---- --- ----- -- 96 2.0L/m 08/15 07:14 98.0 83 123/85 18 99 --- 08/15 03:23 98.0 83 135/86 18 98 --- 08/14 23:44 ---- --- ----- -- 94 --- 08/14 18:59 98.0 82 136/86 18 94 --- 24 Hr Tmax: 98.6F (37.00c) at 08/14 16:16 Vital Signs are the last 5 in the [...] Labs (Last four charted values) WBC H 12.3 (AUG 09) H 11.1 (AUG 08) H 13.5 (AUG 07) H 11.2 (AUG 06) Hgb L 13.6 (AUG 09) L 13.9 (AUG 08) 14.0 (AUG 07) L 13.4 (AUG 06) Hct 42.0 (AUG 09) 42.6 (AUG 08) 43.5 (AUG 07) L 40.9 (AUG 06) Plt 227 (AUG 09) 205 (AUG 08) 210 (AUG 07) 182 (AUG 06) Na 140 (AUG 13) 140 (AUG 09) 138 (AUG 08) 137 (AUG 05) K 4.2 (AUG 13) 4.2 (AUG 09) 4.8 (AUG 08) 4.8 (AUG 07) CO2 26 (AUG 13) 28 (AUG 09) 26 (AUG 08) 26 (AUG 07) Cl 107 (AUG 13) 106 (AUG 09) 104 (AUG 08) 103 (AUG 07) Cr 0.93 (AUG 13) 0.74 (AUG 09) 0.85 (AUG 08) 0.79 (AUG 07) BUN H 27 (AUG 13) 20 (AUG 09) 19 (AUG 08) 22 (AUG 07) Glucose Random 84 (AUG 13) 78 (AUG 09) 78 (AUG 08) 71 (AUG 05) Mg 2.2 (AUG 09) 2.1 (AUG 08) 2.2 (AUG 07) 2.2 (AUG 06) Phos 3.7 (AUG 09) 3.9 (AUG 08) 4.1 (AUG 07) 4.2 (AUG 06) Ca 8.5 (AUG 13) 8.8 (AUG 09) 8.5 (AUG 08) 9.1 (AUG 07) PT H 21.6 (AUG 15) H 25.1 (AUG 14) H 27.7 (AUG 13) H 31.1 (AUG 12) INR H 1.84 (AUG 15) H 2.24 (AUG 14) H 2.55 (AUG 13) H 2.96 (AUG 12) PTT H 69.5 (AUG 05) H 64.0 (AUG 04) H 68.9 (AUG 04) C 129.5 (AUG 03) Troponin 0.09 (JUL 20) 0.10 (JUL 20) Total CK 36 (JUL 20) 32 (JUL 20) ASSESSMENT AND PLAN: Mr. Lowery is a 59-year-old male with past medical history significant for depression, alcohol abuse and COPD who presented to [facility] with chest pain as an outside hospital [...] which would otherwise require daily venous sticks. 08/18/2015 [facility] Plan of Care No Data Provided for This Section Social History Social History Date Source Social History TypeResponse Alcohol Current, Type Beer. Frequency: Daily. 3 [...] Days Yes; Reg Smoking Cessation Counseling No 12/01/2015 [facility] [place] Social History TypeResponse Alcohol Current, Type Beer. Frequency: Daily. 3 [...] Days Yes; Reg Smoking Cessation Counseling No 07/21/2015 [facility] Social History TypeResponse Alcohol Current, Type Beer. Frequency: Daily. 3 [...] Days Yes; Reg Smoking Cessation Counseling No 07/21/2015 [facility] Family History No Data Provided for This Section Advance Directives No Data Provided for This Section Functional Status No Data Provided for This Section
[2018-12-06] MEDS ORDERED: SODIUM CHLORIDE 0.9% 1000ML 1,000 ML IV STA ×2 (12:41→16:22)
[2018-12-06] MEDS ORDERED: ALBUTEROL/IPRATROPIUM 3 ML NEB NEB ONE (13:00)
[2018-12-06] MEDS ORDERED: METHYLPREDNISOLONE SOD SUCC 125 MG/2ML VIAL IV ONE (13:30)
--- NOTE | 2018-12-06 13:50 | Diagnostic Imaging Report ---
EXAMINATION: CHEST SINGLE (PORTABLE) COMPARISON: Chest x-ray 10/02/2018 INDICATION: Shortness of breath and chest pain ^SOB, CP ^[id number] ^1311 DISCUSSION: Frontal view of the chest obtained at 1311 hours. HEART AND MEDIASTINUM: The heart is top normal in size and stable LINES: Dual-lead pacemaker wires terminate in the right atrium and right ventricle and are stable LUNGS: New patchy airspace opacity in the right upper lobe. Pulmonary vasculature is normal. PLEURA: No pleural effusion or pneumothorax. BONES AND SOFT TISSUES: No focal osseous lesion. The soft tissues are normal. IMPRESSION: New patchy airspace opacity in the right upper lobe is concerning for pneumonia. Signed by: Dr. Lisa Palma MD on 12/06/2018 1:47 PM
--- NOTE | 2018-12-06 14:17 | NUR ---
KRISTIE BURNETTE NOTIFIED OF NEED FOR IV ACCESS. PATIENT IS A DIFFICULT STICK.
[2018-12-06] MEDS ORDERED: VANCOMYCIN 1GM/NS 250 ML 250 ML IV ONE (14:30)
--- NOTE | 2018-12-06 14:48 | NUR ---
KRISTIE RAMOS, AOS ABLE TO OBTAIN IV ACCESS TO LEFT AC WITH ULTRASOUND; UNABLE TO DRAW LABS. LAB NOTIFIED OF NEED FOR BLOOD DRAW. AWAITING LAB AT THIS TIME
--- NOTE | 2018-12-06 14:51 | NUR ---
SPOKE WITH SHANICE IN THE LAB WHO STATED THAT SOMEONE WOULD COME AND DRAW LABS
--- NOTE | 2018-12-06 16:51 | NUR ---
LABS DRAWN FROM CENTRAL LINE AND WALKED TO LAB; CALLED AGAIN AND SPOKE WITH SHANICE TO INFORM OF NO LONGER NEEDING LAB TO COME AND DRAW
[2018-12-06 16:53] LABS: BASOPHILS % 0.2 % (0.0-1.0); EOSINOPHILS % 0.1 % (0.0-6.0); HEMATOCRIT 31.5 % (38.2-49.6); HEMOGLOBIN 9.3 g/dL (14.0-18.0); LYMPHOCYTES # (AUTO) 0.7 (1.0-3.2); LYMPHOCYTES % 6.5 % (18.0-39.1); MEAN CORPUSCULAR HEMOGLOBIN 23.5 pg (28-32); MEAN CORPUSCULAR HGB CONC 29.5 g/dL (31-35); MEAN CORPUSCULAR VOLUME 79.7 fL (81-99); MONOCYTES # (AUTO) 0.1 (0.2-0.8); MONOCYTES % 0.8 % (4.4-11.3); NEUTROPHILS # (AUTO) 10.1 (2.1-6.9); PLATELET COUNT 372 x10e3/uL (140-360); RED BLOOD COUNT 3.95 x10e6/uL (4.3-5.7); RED CELL DISTRIBUTION WIDTH 17.5 % (11.7-14.4)
[2018-12-06] MEDS: CEFEPIME 2 GM/NS 0.9% 100 ML 100 ML IV SCH (16:56)
--- NOTE | 2018-12-06 16:59 | Diagnostic Imaging Report ---
EXAMINATION: CHEST SINGLE (PORTABLE) COMPARISON: Chest x-ray 12/06/2018 at 1311 hours, chest x-ray INDICATION: ^S/P CENTRAL LINE ^[id number] ^1635 DISCUSSION: Frontal view of the chest obtained at 1621 hours. HEART AND MEDIASTINUM: Stable mild cardiomegaly LINES: Right IJ catheter terminates in the SVC. Dual-lead pacemaker wires are stable in position. LUNGS: No change in right upper lobe airspace opacity. The lungs are hyperinflated. Subcentimeter calcified granuloma in the right lower lobe. PLEURA: No pneumothorax. Blunting of the right lateral costophrenic angle may be due to pleural thickening or pleural effusion. No change compared to 10/02/2018. BONES AND SOFT TISSUES: No focal osseous lesion. The soft tissues are normal. IMPRESSION: 1. Right IJ catheter terminates in the SVC without pneumothorax. 2. No change in right upper lobe airspace opacity. 3. Right lateral costophrenic angle blunting is chronic, either pleural thickening or loculated effusion. Signed by: Dr. Lisa Palma MD on 12/06/2018 4:56 PM
[2018-12-06 17:03] LABS: INR 0.98; PROTHROMBIN TIME 13.5 seconds (11.9-14.5)
[2018-12-06 17:04] LABS: PARTIAL THROMBOPLASTIN TIME 34.3 seconds (23.8-35.5)
[2018-12-06 17:14] LABS: ALANINE AMINOTRANSFERASE 11 IU/L (0-55); ALBUMIN 3.2 g/dL (3.5-5.0); ALBUMIN/GLOBULIN RATIO 0.8 (0.8-2.0); ALKALINE PHOSPHATASE 101 IU/L (40-150); ANION GAP 14.2 mmol/L (8-16); BLOOD UREA NITROGEN 9 mg/dL (7-26); BUN/CREATININE RATIO 12 (6-25); CALCIUM 9.1 mg/dL (8.4-10.2); CARBON DIOXIDE 26 mmol/L (22-29); CHLORIDE 104 mmol/L (98-107); CREATINE KINASE 29 IU/L (30-200); CREATININE, SERUM 0.77 mg/dL (0.72-1.25); EST GLOMERULAR FILTRATION RATE > 60 ML/MIN (60-); GLUCOSE 128 mg/dL (74-118); POTASSIUM 4.2 mmol/L (3.5-5.1); SODIUM 140 mmol/L (136-145)
[2018-12-06] MEDS ORDERED: NOREPINEPHRINE 8 MG/D5W 250 ML 250 ML ONE (17:24)
[2018-12-06] MEDS ORDERED: NOREPINEPHRINE 8 MG/D5W 250 ML 8 MG in DEXTROSE 5% 250ML 0 ML IV SCH (17:30)
[2018-12-06 17:34] LABS: B-TYPE NATRIURETIC PEPTIDE2 144.1 pg/mL (0-100)
[2018-12-06] MEDS: NOREPINEPHRINE 8 MG/D5W 250 ML 250 ML IV SCH (17:37)
[2018-12-06] MEDS ORDERED: AZTREONAM 1 GM/NS 50 ML 50 ML IV SCH (18:00)
[2018-12-06 18:50] LABS: BILIRUBIN,URINE NEGATIVE (NEGATIVE); CLARITY,URINE CLEAR (CLEAR); COLOR,URINE YELLOW (YELLOW); KETONES,URINE NEGATIVE (NEGATIVE); LEUKOCYTE ESTERASE ,URINE NEGATIVE (NEGATIVE); NITRITE,URINE NEGATIVE (NEGATIVE); PROTEIN,URINE DIPSTICK NEGATIVE (NEGATIVE); URINE UROBILINOGEN 0.2 mg/dL (0.2 - 1)
--- OUTSIDE RECORDS SUMMARY | 2018-12-06 18:55 | XMS REPORT | Continuity of Care Document ---
Author Author [employer] Organization [employer] Address Unknown Phone Unavailable Care Team Providers Care Teacher Home Therapy Name Role Phone [employer] Information COMMUNICATIONS [employer] IN[employer]MENTS Unavailable Unavailable Problems Problem Status Onset Date Classification Date Reported Comments Source SOB / CHEST PAIN Active 2015 [facility] BRONCHITIS, CHEST PAIN Active 2015 [facility] WEAK Active 08/18/2015 [facility] CHEST PAIN, BRADYCARDIA, SUICIDAL IDEATI Active 08/18/2015 [facility] DEBILITATED Active 08/07/2015 [facility] DEBILITY Active 08/07/2015 [facility] LEFT CORONARY ANOMALY Active 07/20/2015 [facility] Anxiety Active Problem 12/05/2015 [facility] COPD Active Problem 12/05/2015 [facility] Depressed Active Problem 12/05/2015 [facility] Hypertension Active Problem 12/05/2015 [facility] Major depressive disorder Active Problem 12/05/2015 [facility] Pacemaker Active Problem 12/05/2015 [facility] Psychomotor retardation Active Problem 12/05/2015 [facility] Pulmonary embolism Resolved Problem 12/05/2015 [facility] Tobacco abuse Active Problem 12/05/2015 [facility] Unstable angina Active Problem 12/05/2015 [facility] OTHER SPECIFIED CONGENITAL DEFORMITIES Active [facility] OTHER MALAISE Active [facility] BRONCHITIS, NOT SPECIFIED ACUTE OR CH Active [facility] Medications Medication Details Route Status Patient Instructions Ordering Provider Order Date Source rivaroxaban 20 mg oral tablet 20 mg=1 tab, PO, QPM, 0 Refill(s) Active 12/02/2015 [facility] lamoTRIgine 25 mg oral tablet 25 mg=1 tab, PO, BID, 0 Refill(s) Active 12/02/2015 [facility] QUEtiapine 25 mg oral tablet 25 mg=1 tab, PO, Q4H, PRN Anxiety, 0 Refill(s) Active 12/02/2015 [facility] Seroquel 25 mg, 1 tab, Route: PO, Drug form: TAB, TID, Dosing Weight 105.455, kg, Start date: 12/02/15 13:00:00 CDT, Duration: 30 day, Stop date: 01/01/16 9:00:00 CDTNotes: (Same as: SEROquel) Inactive 12/02/2015 [facility] Seroquel 25 mg, 1 tab, Route: PO, Drug form: TAB, Q4H, Dosing Weight 105.455, kg, PRN Anxiety, Start date: 12/02/15 12:54:00 CDT, Duration: 30 day, Stop date: 01/01/16 12:53:00 CDTNotes: (Same as: SEROquel) Inactive 12/02/2015 [facility] lamoTRIgine 25 mg oral tablet 25 mg, 1 tab, Route: PO, Drug form: TAB, BID, Dosing Weight 105.455, kg, Priority: NOW, Start date: 12/02/15 11:31:00 CDT, Duration: 30 day, Stop date: 01/01/16 9:00:00 CDTNotes: (Same as:LaMICtal) Inactive 12/02/2015 [facility] Mirtazapine 30 mg, 2 tab, Route: PO, Drug form: TAB, Bedtime, Dosing Weight 105.455, kg, Start date: 11/29/15 21:00:00 CDT, Duration: 30 day, Stop date: 12/28/15 21:00:00 CDTNotes: (Same as:Remeron) No Longer Active 11/30/2015 [facility] Seroquel 50 mg, 2 tab, Route: PO, Drug form: TAB, Bedtime, Dosing Weight 105.455, kg, Start date: 11/29/15 21:00:00 CDT, Stop date: 12/28/15 21:00:00 CDTNotes: (Same as: SEROquel) No Longer Active 11/30/2015 [facility] Xarelto 20 mg, 1 tab, Route: PO, Drug form: TAB, QPM, Dosing Weight 105.455, kg, Start date: 11/29/15 20:00:00 CDT, Duration: 30 day, Stop date: 12/28/15 20:00:00 CDTNotes: (Same as: Xarelto) Administer with food No Longer Active 11/30/2015 [facility] Seroquel 25 mg, 1 tab, Route: PO, Drug form: TAB, Q6H, Dosing Weight 105.455, kg, PRN Agitation, Start date: 11/29/15 19:38:00 CDT, Duration: 30 day, Stop date: 12/29/15 19:37:00 CDTNotes: (Same as: SEROquel) No Longer Active 11/30/2015 [facility] Acetaminophen 300 MG / Codeine Phosphate 30 MG Oral Tablet [Tylenol with Codeine #3] 1 tab, Route: PO, Drug Form: TAB, Dosing Weight 105.455, kg, Q6H, PRN Pain Score 6-10, Start date: 11/29/15 18:44:00 CDT, Duration: 30 day, Stop date: 12/29/15 18:43:00 CDTNotes: Do not exceed 4gm/day of acetaminophen. (Same as: Tylenol with Codeine # 3) No Longer Active 11/29/2015 [facility] POLYETHYLENE GLYCOL 3350 17 gm, 1 pkt, Route: PO, Drug form: PWDR, BID, Dosing Weight 105.455, kg, Start date: 11/29/15 9:00:00 CDT, Duration: 30 day, Stop date: 12/28/15 17:00:00 CDTNotes: Dissolve in 8 oz of water or juice. (Same as: Miralax) No Longer Active 11/29/2015 [facility] Folic Acid 1 mg, 1 tab, Route: PO, Drug form: TAB, Daily, Dosing Weight 105.455, kg, Start date: 11/29/15 9:00:00 CDT, Duration: 30 day, Stop date: 12/28/15 9:00:00 CDTNotes: (Same as: Folvite) No Longer Active 11/29/2015 [facility] Flonase 0.05 mg/inh nasal spray 2 spray, Route: Each Affected Nostril, Drug Form: SPRY, Dosing Weight 105.455, kg, Daily, Start date: 11/29/15 9:00:00 CDT, Duration: 30 day, Stop date: 12/28/15 9:00:00 CDTNotes: (Same as: Flonase) No Longer Active 11/29/2015 [facility] carvedilol 3.125 mg, 1 tab, Route: PO, Drug form: TAB, Q12H, Dosing Weight 105.455, kg, Start date: 11/29/15 9:00:00 CDT, Duration: 30 day, Stop date: 12/28/15 21:00:00 CDTNotes: Give with food. (Same As: Coreg) No Longer Active 11/29/2015 [facility] Budesonide 1 inhalation, Route: INHALATION, Drug form: PWDR, BID, Dosing Weight 105.455, kg, Start date: 11/29/15 9:00:00 CDT, Duration: 30 day, Stop date: 12/28/15 17:00:00 CDTNotes: Same as Pulmicort Flexhaler Non-Formulary Drug No Longer Active 11/29/2015 [facility] Aspirin 81 mg, 1 tab, Route: PO, Drug form: ECTAB, Daily, Dosing Weight 105.455, kg, Start date: 11/29/15 9:00:00 CDT, Duration: 30 day, Stop date: 12/28/15 9:00:00 CDTNotes: Do not crush or chew. (Same As: Ecotrin) No Longer Active 11/29/2015 [facility] Thiamine 100 mg, 1 tab, Route: PO, Drug form: TAB, Daily, Dosing Weight 105.455, kg, Start date: 11/29/15 9:00:00 CDT, Duration: 30 day, Stop date: 12/28/15 9:00:00 CDTNotes: (Same As: Vitamin B1) No Longer Active 11/29/2015 [facility] Nitroglycerin 0.4 MG Sublingual Tablet 0.4 mg, 1 tab, Route: SL, Drug form: TAB, Q5Min, Dosing Weight 105.455, kg, PRN Chest Pain, Start date: 11/28/15 21:08:00 CDT, Duration: 30 day, Stop date: 12/28/15 21:07:00 CDT Inactive 11/29/2015 [facility] Calcium Carbonate 500 MG Chewable Tablet 500 mg, 1 tab, Route: CHEW, Drug form: CHEWTAB, TID, Dosing Weight 105.455, kg, PRN Indigestion, Start date: 11/28/15 21:07:00 CDT, Duration: 30 day, Stop date: 12/28/15 21:06:00 CDTNotes: (Same As: César) Calcium Carbonate 500 vm=430 mg elemental calcium Dose= mg calcium carbonate ( mg elemental calcium) No Longer Active 11/29/2015 [facility] 200 ACTUAT Albuterol 0.09 MG/ACTUAT Metered Dose Inhaler 2 puff, Route: INHALATION, Drug Form: AERO/A, Dosing Weight 105.455, kg, QID, PRN Wheezing, Start date: 11/28/15 21:07:00 CDT, Duration: 30 day, Stop date: 12/28/15 21:06:00 CDTNotes: Albuterol 90 microgram/inh 8gm HFA WASTE: Aerosol - Return to Pharmacy Same as: Violette Proventil No Longer Active 11/29/2015 [facility] Saline Flush 0.9% 10 ml, Route: IVP, Drug Form: INJ, Dosing Weight 113.636, kg, Q12H, Start date: 11/28/15 21:00:00 CDT, Duration: 30 day, Stop date: 12/28/15 9:00:00 CDTNotes: (Same as: BD Posiflush) No Longer Active 11/29/2015 [facility] Albuterol 0.83 MG/ML Inhalant Solution 2.5 mg, 3.01 mL, Route: INHALATION, Drug form: SOLN, RQ6H, Dosing Weight 113.636, kg, Start date: 11/28/15 20:00:00 CDT, Duration: 30 day, Stop date: 12/28/15 14:00:00 CDTNotes: SEE RT DOCUMENTATION (Same as: Proventil) No Longer Active 11/29/2015 [facility] Lovenox 105.455 mg, 0.7 mL, Route: SUB-Q, Drug form: INJ, [id number], Dosing Weight 105.455, kg, Start date: 11/28/15 17:00:00 CDT, Duration: 30 day, Stop date: 12/28/15 9:00:00 CDTNotes: Nurse to ensure document ation of patient education per anticoagulation policy. (Same as: Lovenox) No Longer Active 2015 [facility] Alprazolam 1 MG Oral Tablet [Xanax] 1 mg, 1 tab, Route: PO, Drug form: TAB, ONCE, Dosing Weight 105.455, kg, PRN Anxiety, Start date: 11/28/15 16:13:00 CDT, Stop date: 12/28/15 16:12:00 CDTNotes: With food or milk (Same as: Xanax) Inactive 2015 [facility] Saline Flush 0.9% 10 ml, Route: IVP, Drug Form: INJ, Dosing Weight 113.636, kg, PRN, PRN Line Flush, Start date: 11/28/15 15:24:00 CDT, Duration: 30 day, Stop date: 12/28/15 15:23:00 CDTNotes: (Same as: BD Posiflush) No Longer Active 2015 [facility] Nitroglycerin 0.4 mg, 1 tab, Route: SL, Drug form: TAB, Q5Min, Dosing Weight 113.636, kg, PRN Chest Pain, Start date: 11/28/15 15:24:00 CDT, Duration: 3 doses or times, Stop date: Limited # of timesNotes: (Same as :Nitroquick, Nitrostat) "Do Not Crush" Sublingual tablet No Longer Active 2015 [facility] Morphine 2 mg, 1 mL, Route: IVP, Drug form: INJ, Q15Min, Dosing Weight 113.636, kg, PRN Chest Pain, Start date: 11/28/15 15:24:00 CDT, Duration: 2 doses or times, Stop date: Limited # of timesNotes: (Same as: MORPhine Sulfate) No Longer Active 2015 [facility] Ondansetron 4 mg, 1 tab, Route: PO, Drug form: TAB, Q8H, Dosing Weight 113.636, kg, PRN Nausea & Vomiting, Start date: 11/28/15 15:24:00 CDT, Duration: 30 day, Stop date: 12/28/15 15:23:00 CDTNotes: (Same as: Glen) No Longer Active 2015 [facility] Aspirin 325 MG Oral Tablet 325 mg, 1 tab, Route: PO, Drug form: TAB, ONCE, Dosing Weight 113.636, kg, Start date: 11/28/15 15:24:00 CDT, Stop date: 11/28/15 15:24:00 CDTNotes: Take with food. Inactive 2015 [facility] Sodium Chloride 0.154 MEQ/ML Injectable Solution 1,000 mL, 1,000 ml/hr, Infuse Over: 1 hr, Route: IV, ONCE, Priority: STAT, Dosing Weight 113.636 kg, Start date: 11/28/15 13:34:00 CDT, Duration: 1 doses or times, Stop date: 11/28/15 13:34:00 CDT Inactive 2015 [facility] Morphine 4 mg, Route: IVP, Drug form: INJ, ONCE, Dosing Weight 113.636, kg, Priority: STAT, Start date: 11/28/15 13:34:00 CDT, Stop date: 11/28/15 13:34:00 CDT Inactive 2015 [facility] Nitroglycerin 0.02 MG/MG Topical Ointment 0.5 inch, Route: TOP, Dosing Weight 113.636, kg, ONCE, STAT, Start date: 11/28/15 13:32:00 CDT, Stop date: 11/28/15 13:32:00 CDT Inactive 2015 [facility] Ipratropium 0.5 mg, 2.5 mL, Route: NEB, Drug form: SOLN, ONCE, Dosing Weight 113.636, kg, Priority: STAT, Start date: 11/28/15 10:59:00 CDT, Stop date: 11/28/15 10:59:00 CDTNotes: SEE RT DOCUMENTATION (Same as:Stacey romero) Inactive 2015 [facility] Albuterol 0.83 MG/ML Inhalant Solution 10 mg, Route: NEB, Drug form: SOLN, Continuous, Dosing Weight 113.636, kg, Priority: STAT, Start date: 11/28/15 10:59:00 CDT, Duration: 30 day, Stop date: 12/28/15 10:58:00 CDT Inactive 2015 [facility] methylPREDNISolone SODium SUCCinate 125 mg, 2 mL, Route: IVP, Drug form: INJ, ONCE, Dosing Weight 113.636, kg, Priority: STAT, Start date: 11/28/15 10:59:00 CDT, Stop date: 11/28/15 10:59:00 CDTNotes: (Same as:Solu-MEDROL, A-Methapred) Inactive 2015 [facility] Magnesium Sulfate 2 gm, Route: IVPB, ONCE, Dosing Weight 113.636, kg, Priority: STAT, Start date: 11/28/15 10:59:00 CDT, Stop date: 11/28/15 10:59:00 CDT Inactive 2015 [facility] Saline Flush 0.9% 10 mL, Route: IVP, Drug Form: INJ, Dosing Weight 113.636, kg, PRN, PRN Line Flush, Start date: 11/28/15 10:59:00 CDT, Duration: 30 day, Stop date: 12/28/15 10:58:00 CDTNotes: (Same as: BD Posiflush) Inactive 2015 [facility] Ketoconazole 20 MG/ML Medicated Shampoo 1 appl, Route: TOP, QWed, Drug form: SHMP, Start date: 08/23/15 9:00:00 CDT, Duration: 30 day, Stop date: 09/20/15 9:00:00 CDT No Longer Active 08/23/2015 [facility] predniSONE 5 mg, 1 tab, Route: PO, Drug form: TAB, Daily, Start date: 08/20/15 9:00:00 CDT, Duration: 3 doses or times, Stop date: 08/22/15 9:00:00 CDTNotes: Take with food. No Longer Active 08/20/2015 [facility] Xarelto 15 mg, 1 tab, Route: PO, Drug form: TAB, Q12H, Dosing Weight 95, kg, Start date: 08/20/15 9:00:00 CDT, Duration: 30 day, Stop date: 09/18/15 21:00:00 CDTNotes: (Same as: Xarelto) Administer with food No Longer Active 08/20/2015 [facility] {42 (rivaroxaban 15 MG Oral Tablet [Xarelto]) / 9 (rivaroxaban 20 MG Oral Tablet [Xarelto]) } Pack [Xarelto Kit] 1 tab, PO, BID-Meals, Take 15 mg tablets twice daily with food for 21 days. Beginning day 22,take one 20 mg tablet daily with food for the remainder of therapy., X 30 day, # 1 pkt, 0 Refill(s) Active 08/20/2015 [facility] Pulmicort Respules 0.5 mg, 2 mL, Route: NEB, Drug form: SUSP, RBID, Start date: 08/19/15 22:00:00 CDT, Duration: 30 day, Stop date: 09/18/15 20:00:00 CDTNotes: (Same As: Pulmicort) No Longer Active 08/20/2015 [facility] Thiamine 100 mg, 1 tab, Route: PO, Drug form: TAB, Daily, Dosing Weight 95, kg, Start date: 08/19/15 9:00:00 CDT, Duration: 30 day, Stop date: 09/17/15 9:00:00 CDTNotes: (Same As: Vitamin B1) No Longer Active 08/19/2015 [facility] Ketoconazole 20 MG/ML Medicated Shampoo 1 appl, Route: TOP, QSat, Drug form: SHMP, Start date: 08/19/15 9:00:00 CDT, Duration: 30 day, Stop date: 09/16/15 9:00:00 CDT No Longer Active 08/19/2015 [facility] Folic Acid 1 mg, 1 tab, Route: PO, Drug form: TAB, Daily, Dosing Weight 95, kg, Start date: 08/19/15 9:00:00 CDT, Duration: 30 day, Stop date: 09/17/15 9:00:00 CDTNotes: (Same as: Folvite) No Longer Active 08/19/2015 [facility] Flonase 0.05 mg/inh nasal spray 2 spray, Route: Each Affected Nostril, Drug Form: SPRY, Dosing Weight 95, kg, Daily, Start date: 08/19/15 9:00:00 CDT, Duration: 30 day, Stop date: 09/17/15 9:00:00 CDTNotes: (Same as: Flonase) No Longer Active 08/19/2015 [facility] Aspirin 81 mg, 1 tab, Route: PO, Drug form: ECTAB, Daily, Dosing Weight 95, kg, Start date: 08/19/15 9:00:00 CDT, Duration: 30 day, Stop date: 09/17/15 9:00:00 CDTNotes: Do not crush or chew. (Same As: Ecotrin) No Longer Active 08/19/2015 [facility] Bacitracin 0.4 UNT/MG / Neomycin 0.0035 MG/MG / Polymyxin B 10 UNT/MG Ophthalmic Ointment 1 appl, Route: BOTH EYES, Q3H, Drug form: OINT, Start date: 08/18/15 23:00:00 CDT, Duration: 30 day, Stop date: 09/17/15 20:00:00 CDTNotes: (bacitracin/neomycin/ polymyxin B 3.5 gm oph OIN) (Same As: Neosporin, Triple Antibiotic) No Longer Active 08/19/2015 [facility] Mirtazapine 30 mg, 2 tab, Route: PO, Drug form: TAB, Bedtime, Dosing Weight 95, kg, Start date: 08/18/15 21:00:00 CDT, Duration: 30 day, Stop date: 09/16/15 21:00:00 CDTNotes: (Same as:Remeron) No Longer Active 08/19/2015 [facility] carvedilol 3.125 mg, 1 tab, Route: PO, Drug form: TAB, Q12H, Dosing Weight 95, kg, Start date: 08/18/15 21:00:00 CDT, Duration: 30 day, Stop date: 09/17/15 9:00:00 CDTNotes: Give with food. (Same As: Coreg) No Longer Active 08/19/2015 [facility] Budesonide 1 inhalation, Route: INHALATION, Drug form: PWDR, RBID, Dosing Weight 95, kg, Start date: 08/18/15 20:00:00 CDT, Duration: 30 day, Stop date: 09/17/15 8:00:00 CDTNotes: Same as Pulmicort Flexhaler Non- Formulary Drug Inactive 08/19/2015 [facility] Polymyxin B 62528 UNT/ML / Trimethoprim 1 MG/ML Ophthalmic Solution 1 drp, Route: BOTH EYES, Q3H, Start date: 08/18/15 17:00:00 CDT, Duration: 30 day, Stop date: 09/17/15 14:00:00 CDT Inactive 08/18/2015 [facility] Warfarin 7.5 mg, 1 tab, Route: [...] (Same As: Coumadin) No Longer Active 08/18/2015 [facility] POLYETHYLENE GLYCOL 3350 17 gm, Route: PO, Drug form: PDR/REC, BID, Dosing Weight 95, kg, Start date: 08/18/15 17:00:00 CDT, Duration: 30 day, Stop date: 09/17/15 9:00:00 CDTNotes: (Same as: MiraLax) No Longer Active 08/18/2015 [facility] Polymyxin B 58714 UNT/ML / Trimethoprim 1 MG/ML Ophthalmic Solution 1 drp, BOTH EYES, Q3H, X 7 day, # 10 mL, 0 Refill(s) No Longer Active 08/18/2015 [facility] remove patch 1 patch, Route: TOP, Q24H, Drug form: ERFILM, Start date: 08/18/15 15:00:00 CDT, Duration: 30 day, Stop date: 09/16/15 15:00:00 CDTNotes: Remove patch 12 hours after application each day. No Longer Active 08/18/2015 [facility] Lidocaine Hydrochloride 0.05 MG/MG Transdermal Patch [Lidoderm] 1 patch, Route: TOP, Q24H, Drug form: FILM, Start date: 08/18/15 15:00:00 CDT, Duration: 30 day, Stop date: 09/16/15 15:00:00 CDTNotes: Apply only once for up to 12 hours in a 24-hour period (12 hours on and 12 hours off). (Same as: Lidoderm) "Remove old patch before application of new patch" No Longer Active 08/18/2015 [facility] predniSONE 10 mg, 1 tab, Route: PO, Drug form: TAB, Daily, Start date: 08/18/15 14:27:00 CDT, Duration: 2 doses or times, Stop date: 08/19/15 9:00:00 CDTNotes: (Same as: PredniSONE) Take with food. No Longer Active 08/18/2015 [facility] tramadol hydrochloride 50 MG Oral Tablet [Ultram] 50 mg, 1 tab, Route: PO, Drug form: TAB, Q6H, Dosing Weight 95, kg, PRN Pain Score 6- 10, Start date: 08/18/15 14:08:00 CDT, Duration: 30 day, Stop date: 09/17/15 14:07:00 CDTNotes: Not to exceed 400mg/day. (Same As: Ultram) No Longer Active 08/18/2015 [facility] Prednisone 1 MG Oral Tablet Dose: See Instructions, Route: SUB-Q, Drug form: TAB, Sliding Scale, PRN Blood Glucose Results, Start date: 08/18/15 14:08:00 CDT, Duration: 30 day, Stop date: 09/17/15 14:07:00 CDT Inactive 08/18/2015 [facility] Nitroglycerin 0.4 MG Sublingual Tablet 0.4 mg, 1 tab, Route: SL, Drug form: TAB, Q5Min, Dosing Weight 95, kg, PRN Chest Pain, Start date: 08/18/15 14:08:00 CDT, Duration: 30 day, Stop date: 09/17/15 14:07:00 CDTNotes: (Same as:Nitroquick, Nitrostat) "Do Not Crush" Sublingual tablet No Longer Active 08/18/2015 [facility] hydrocortisone topical 2.5% cream 1 appl, Route: TOP, BID, Drug form: CRM, PRN Itching, Start date: 08/18/15 14:08:00 CDT, Duration: 30 day, Stop date: 09/17/15 14:07:00 CDT No Longer Active 08/18/2015 [facility] Calcium Carbonate 500 MG Chewable Tablet 500 mg, 1 tab, Route: CHEW, Drug form: CHEWTAB, TID, Dosing Weight 95, kg, PRN Indigestion, Start date: 08/18/15 14:08:00 CDT, Duration: 30 day, Stop date: 09/17/15 14:07:00 CDTNotes: (Same As: César) Calcium Carbonate 500 gu=662 mg elemental calcium Dose= mg calcium carbonate ( mg elemental calcium) No Longer Active 08/18/2015 [facility] 200 ACTUAT Albuterol 0.09 MG/ACTUAT Metered Dose Inhaler 2 puff, Route: INHALATION, Drug Form: AERO/A, Dosing Weight 95, kg, RQID, PRN Wheezing, Start date: 08/18/15 14:08:00 CDT, Duration: 30 day, Stop date: 09/17/15 14:07:00 CDT No Longer Active 08/18/2015 [facility] Acetaminophen 1,000 mg, 2 tab, Route: PO, Drug form: TAB, Q6H, Dosing Weight 95, kg, PRN Pain Score 1-5, Start date: 08/18/15 14:07:00 CDT, Duration: 30 day, Stop date: 09/17/15 14:06:00 CDTNotes: Max acetaminophen 4000 mg/day (4 gm/day). (Same as: Tylenol Extra Strength) No Longer Active 08/18/2015 [facility] Sodium Chloride 0.9% IV 25 mL, Route: IV, Start date: 08/18/15 14:03:00 CDT, Duration: 30 day, Stop date: 09/17/15 14:02:00 CDT, PRN Line Flush No Longer Active 08/18/2015 [facility] Artificial Tears 1 drp, Route: Each Affected Eye, QID, Drug form: SOLN, PRN Dry Eyes, Start date: 08/18/15 13:56:00 CDT, Duration: 30 day, Stop date: 09/17/15 13:55:00 CDTNotes: (Same as: Aquasite) No Longer Active 08/18/2015 [facility] Diphenhydramine 25 mg, 0.5 mL, Route: IV, Drug form: INJ, Q6H, Dosing Weight 95, kg, PRN as needed for itching, Start date: 08/18/15 13:55:00 CDT, Duration: 30 day, Stop date: 09/17/15 13:54:00 CDTNotes: (Same as: Benadryl) No Longer Active 08/18/2015 [facility] Lorazepam 1 mg, 0.5 mL, Route: IV, Drug form: INJ, Q6H, Dosing Weight 95, kg, PRN as needed for anxiety, Start date: 08/18/15 13:55:00 CDT, Stop date: 09/17/15 13:54:00 CDTNotes: (Same as: Ativan) No Longer Active 08/18/2015 [facility] Ketoconazole 20 MG/ML Medicated Shampoo 1 appl, TOP, QSat, 0 Refill(s) Active 08/18/2015 [facility] Ketoconazole 20 MG/ML Medicated Shampoo 1 appl, TOP, QWed, 0 Refill(s) Active 08/18/2015 [facility] Saline Flush 0.9% 10 mL, Route: IVP, Drug Form: INJ, Dosing Weight 99.574, kg, PRN, PRN Line Flush, Start date: 08/18/15 8:30:00 CDT, Duration: 30 day, Stop date: 09/17/15 8:29:00 CDTNotes: (Same as: BD Posiflush) No Longer Active 08/18/2015 [facility] Ativan 1 mg, 1 tab, Route: PO, Drug form: TAB, ONCE, Dosing Weight 99.574, kg, Start date: 08/17/15 23:25:00 CDT, Stop date: 08/17/15 23:25:00 CDTNotes: (Same as: Ativan) Inactive 08/18/2015 [facility] tramadol hydrochloride 50 MG Oral Tablet [Ultram] 50 mg=1 tab, PO, Q6H, PRN Pain Score 6-10, # 1 tab, 0 Refill(s), other Active 08/18/2015 [facility] predniSONE 10 mg oral tablet See Instructions, Take 1 tab (10mg) PO daily for 2 days and then take 1/2 tab (5mg) PO daily for 3 days and stop. Take w/ food., # 1 tab, 0 Refill(s), other Active 08/18/2015 [facility] 200 ACTUAT Albuterol 0.09 MG/ACTUAT Metered Dose Inhaler 2 puff, INHALATION, QID, PRN as needed for wheezing, # 3 ea, 0 Refill(s), other Active 08/18/2015 [facility] thiamine 100 mg oral tablet 100 mg=1 tab, PO, Daily, 0 Refill(s) Active 08/18/2015 [facility] tramadol hydrochloride 50 MG Oral Tablet [Ultram] 50 mg=1 tab, PO, Q4H, PRN Pain Score 4-6, 0 Refill(s) Inactive 08/18/2015 [facility] POLYETHYLENE GLYCOL 3350 17 gm, PO, BID, 0 Refill(s) Active 08/18/2015 [facility] methocarbamol 500 mg oral tablet 500 mg=1 tab, PO, QID, PRN Muscle Spasms, per RACHEL Dennis at [facility], did not approve robaxin and not taking, 0 Refill(s) No Longer Active 08/18/2015 [facility] Lidocaine Hydrochloride 0.05 MG/MG Transdermal Patch [Lidoderm] 1 patch, TOP, Q24H, Remove after 12 hours, 0 Refill(s) Active 08/18/2015 [facility] hydrocortisone topical 2.5% cream 1 appl, TOP, BID, PRN Itching, 0 Refill(s) Active 08/18/2015 [facility] Folic Acid 1 MG Oral Tablet 1 mg=1 tab, PO, Daily, 0 Refill(s) Active 08/18/2015 [facility] Calcium Carbonate 500 MG Chewable Tablet 500 mg=1 tab, CHEW, TID, PRN Indigestion, 0 Refill(s) Active 08/18/2015 [facility] Flonase 0.05 mg/inh nasal spray 100 microgram=2 spray, Each Affected Nostril, Daily, 0 Refill(s) Active 08/18/2015 [facility] busPIRone 5 mg oral tablet 5 mg=1 tab, PO, TID, Investigating the current use. New rx from 08/17/15 but not seen on papaers provided by facility. RN Sonny will fax the list, 0 Refill(s) No Longer Active 08/18/2015 [facility] mirtazapine 30 mg oral tablet 30 mg=1 tab, PO, Bedtime, 0 Refill(s) Active 08/18/2015 [facility] warfarin 2.5 mg oral tablet 7.5 mg, PO, QPM, # 1 tab, 0 Refill(s), other No Longer Active 08/18/2015 [facility] acetaminophen 500 mg oral tablet 1,000 mg=2 tab, PO, Q6H, PRN Pain Score 1-5, 0 Refill(s) Active 08/18/2015 [facility] Warfarin 7.5 mg, 1 tab, Route: [...] Waste Black (Same As: Coumadin) Inactive 08/17/2015 [facility] Buspar 5 mg, 1 tab, Route: PO, Drug form: TAB, TID, Dosing Weight 99.574, kg, Start date: 08/17/15 9:00:00 CDT, Duration: 30 day, Stop date: 09/15/15 17:00:00 CDTNotes: (Same As: BuSpar) No Longer Active 08/17/2015 [facility] Warfarin 7.5 mg, 1 tab, Route: [...] Waste Black (Same As: Coumadin) Inactive 08/16/2015 [facility] Methocarbamol 500 mg, 1 tab, Route: PO, Drug form: TAB, QID, Dosing Weight 99.574, kg, PRN Muscle Spasms, Start date: 08/15/15 22:54:00 CDT, Duration: 30 day, Stop date: 09/14/15 22:53:00 CDTNotes: (Same as:Robaxin) No Longer Active 08/16/2015 [facility] Ativan 1 mg, 0.5 mL, Route: IVP, Drug form: INJ, ONCE, Dosing Weight 99.574, kg, Start date: 08/15/15 19:39:00 CDT, Stop date: 08/15/15 19:39:00 CDTNotes: (Same as: Ativan) Inactive 08/16/2015 [facility] Warfarin 6 mg, 1 tab, Route: PO, [...] Waste Black (Same As: Coumadin) Inactive 08/15/2015 [facility] Clonazepam 0.25 mg, 0.5 tab, Route: PO, Drug form: TAB, ONCE, Dosing Weight 99.574, kg, Priority: NOW, Start date: 08/15/15 10:09:00 CDT, Stop date: 08/15/15 10:09:00 CDTNotes: (Same As: KlonoPIN) Inactive 08/15/2015 [facility] Warfarin 5 mg, 1 tab, Route: PO, [...] Waste Black (Same As: Coumadin) Inactive 08/14/2015 [facility] remove patch 1 patch, Route: TOP, Bedtime, Drug form: ERFILM, Start date: 08/14/15 1:00:00 CDT, Duration: 30 day, Stop date: 09/12/15 1:00:00 CDTNotes: Remove patch 12 hours after application each day. No Longer Active 08/14/2015 [facility] Warfarin 5 mg, 1 tab, Route: PO, [...] Waste Black (Same As: Coumadin) Inactive 08/13/2015 [facility] Miralax 17 gm, 1 pkt, Route: PO, Drug form: PWDR, BID, Dosing Weight 99.574, kg, Priority: NOW, Start date: 08/13/15 14:34:00 CDT, Duration: 30 day, Stop date: 09/12/15 9:00:00 CDTNotes: Dissolve in 8 oz of water or juice. (Same as: Miralax) No Longer Active 08/13/2015 [facility] Dulcolax Laxative 10 mg, 1 supp, Route: [place], Drug form: SUPP, ONCE, Dosing Weight 99.574, kg, Priority: NOW, Start date: 08/13/15 14:29:00 CDT, Stop date: 08/13/15 14:29:00 CDTNotes: (Same As: Dulcolax, Bisco- Lax) Inactive 08/13/2015 [facility] Lidocaine Hydrochloride 0.05 MG/MG Transdermal Patch [...] of new patch" No Longer Active 08/13/2015 [facility] Warfarin 6 mg, 1 tab, Route: PO, Drug form: TAB, Q5PM, Dosing Weight 99.574, kg, Start date: 08/12/15 17:00:00, Duration: 1 doses or times, Stop date: 08/12/15 17:00:00Notes: Nurse to ensure documentation of pat ient education per anticoagulation policy. Avoid large intake of vitamin-K containing foods diet. WASTE: F/P - P Waste Black; E - P Waste Black (Same As: Coumadin) Inactive 08/12/2015 [facility] warfarin 3 mg oral tablet 6 mg=2 tab, PO, Daily, # 30 tab, 0 Refill(s) No Longer Active 08/12/2015 [facility] 200 ACTUAT Albuterol 0.09 MG/ACTUAT Metered Dose Inhaler 2 puff, INHALATION, QID, # 3 ea, 0 Refill(s) No Longer Active 08/12/2015 [facility] predniSONE 10 mg oral tablet 20 mg=2 tab, PO, Daily, for 3 days then 1 tab daily for 3 days then 0.5 tab for 4 days., # 11 tab, 0 Refill(s) Inactive 08/12/2015 [facility] carvedilol 3.125 mg oral tablet 3.125 mg=1 tab, PO, Q12H, # 60 tab, 0 Refill(s) Active 08/12/2015 [facility] tramadol hydrochloride 50 MG Oral Tablet 50 mg=1 tab, PO, Q6H, PRN Pain, PRN for pain q 6 hrs, # 30 tab, 0 Refill(s) Inactive 08/12/2015 [facility] Nitroglycerin 0.4 MG Sublingual Tablet 0.4 mg=1 tab, SL, Q5Min, PRN Chest Pain, Give up to 3 doses. Call 911 if pain persists., # 100 tab, 0 Refill(s) Active 08/12/2015 [facility] mirtazapine 15 mg oral tablet 15 mg=1 tab, PO, Bedtime, # 30 tab, 0 Refill(s) No Longer Active 08/12/2015 [facility] budesonide 180 mcg/inh inhalation powder 1 puff, INHALATION, BID, # 2 ea, 0 Refill(s) Active 08/12/2015 [facility] Warfarin 7.5 mg, 1 tab, Route: [...] Waste Black (Same As: Coumadin) Inactive 08/11/2015 [facility] Warfarin 6 mg, 1 tab, Route: PO, Drug form: TAB, Q5PM, Dosing Weight 99.574, kg, Start date: 08/10/15 17:00:00, Duration: 1 doses or times, Stop date: 08/10/15 17:00:00Notes: Nurse to ensure documentation of pat ient education per anticoagulation policy. Avoid large intake of vitamin-K containing foods diet. WASTE: F/P - P Waste Black; E - P Waste Black (Same As: Coumadin) Inactive 08/10/2015 [facility] Warfarin 7.5 mg, 1 tab, Route: PO, Drug form: TAB, ONCE, Dosing Weight 99.574, kg, Priority: NOW, Start date: 08/09/15 18:12:00, Stop date: 08/09/15 18:12:00Notes: Nurse to ensure documentation of patient education per anticoagulation policy. Avoid large intake of vitamin-K containing foods diet. WASTE: F/P - P Waste Black; E - P Waste Black (Same As: Coumadin) Inactive 08/09/2015 [facility] Oxycodone Hydrochloride 5 MG Oral Tablet 5 mg, 1 tab, Route: PO, Drug form: TAB, Q6H, Dosing Weight 99.574, kg, PRN Pain Score 7-10, Start date: 08/08/15 18:10:00 CDT, Duration: 30 day, Stop date: 09/07/15 18:09:00 CDTNotes: (Same as: Roxicodone) No Longer Active 08/08/2015 [facility] Tums 500 mg, 1 tab, Route: CHEW, Drug form: CHEWTAB, TID, Dosing Weight 99.574, kg, PRN Indigestion, Start date: 08/08/15 18:07:00, Duration: 30 day, Stop date: 09/07/15 18:06:00Notes: (Same As: Tums) Calcium Carbonate 500 [id number] mg elemental calcium Dose= mg calcium carbonate ( mg elemental calcium) No Longer Active 08/08/2015 [facility] Coumadin 7.5 mg, 1 tab, Route: PO, Drug form: TAB, Q5PM, Dosing Weight 99.574, kg, Start date: 08/08/15 17:00:00, Duration: 1 doses or times, Stop date: 08/08/15 17:00:00Notes: Nurse to ensure documentation of p atient education per anticoagulation policy. Avoid large intake of vitamin-K containing foods diet. WASTE: F/P - P Waste Black; E - P Waste Black (Same As: Coumadin) Inactive 08/08/2015 [facility] Tylenol 1,000 mg, 2 tab, Route: PO, Drug form: TAB, Q6H, Dosing Weight 99.574, kg, Start date: 08/07/15 18:00:00, Duration: 30 day, Stop date: 09/06/15 12:00:00Notes: Max acetaminophen 4000 mg/day (4 gm/day). (Same as: Tylenol Extra Strength) No Longer Active 08/07/2015 [facility] Coumadin 7.5 mg, 1 tab, Route: PO, Drug form: TAB, Q5PM, Dosing Weight 99.574, kg, Start date: 08/07/15 17:00:00, Duration: 1 doses or times, Stop date: 08/07/15 17:00:00Notes: Nurse to ensure documentation of p atient education per anticoagulation policy. Avoid large intake of vitamin-K containing foods diet. WASTE: F/P - P Waste Black; E - P Waste Black (Same As: Coumadin) Inactive 08/07/2015 [facility] tramadol hydrochloride 50 MG Oral Tablet [Ultram] 50 mg, 1 tab, Route: PO, Drug form: TAB, Q4H, Dosing Weight 99.574, kg, PRN Pain Score 4-6, Start date: 08/07/15 12:36:00, Duration: 30 day, Stop date: 09/06/15 12:35:00Notes: Not to exceed 400mg/day. (Same As: Ultram) No Longer Active 08/07/2015 [facility] naproxen sodium 550 mg, Route: PO, Drug form: TAB, BID, Dosing Weight 99.574, kg, PRN Pain Score 1-3, Start date: 08/07/15 12:27:00, Duration: 30 day, Stop date: 09/06/15 12:26:00 Inactive 08/07/2015 [facility] Acetaminophen 325 MG / Hydrocodone Bitartrate 5 MG Oral Tablet [[place] 5/325] 1 tab, Route: PO, Drug Form: TAB, Dosing Weight 99.574, kg, Q4H, PRN Pain Score 1-3, Start date: 08/07/15 10:36:00, Duration: 30 day, Stop date: 09/06/15 10:35:00Notes: (Same as: [place] 325/5) Do not exceed 4gm/day of acetaminophen. Inactive 08/07/2015 [facility] Coumadin 5 mg, 1 tab, Route: PO, Drug form: TAB, Q5PM, Dosing Weight 99.574, kg, Start date: 08/06/15 17:00:00, Duration: 1 doses or times, Stop date: 08/06/15 17:00:00Notes: Nurse to ensure documentation of pat ient education per anticoagulation policy. Avoid large intake of vitamin-K containing foods diet. WASTE: F/P - P Waste Black; E - P Waste Black (Same As: Coumadin) Inactive 08/06/2015 [facility] Ativan 0.5 mg, 1 tab, Route: PO, Drug form: TAB, TID, Dosing Weight 99.574, kg, PRN Anxiety, Start date: 08/06/15 9:39:00, Duration: 30 day, Stop date: 09/05/15 9:38:00Notes: (Same as: Ativan) No Longer Active 08/06/2015 [facility] Ativan 0.5 mg, 0.25 mL, Route: IV, Drug form: INJ, ONCE, Dosing Weight 99.574, kg, Start date: 08/06/15 9:06:00, Stop date: 08/06/15 9:06:00Notes: (Same as: Ativan) Inactive 08/06/2015 [facility] Ativan 0.5 mg, 0.25 mL, Route: IV, Drug form: INJ, ONCE, Dosing Weight 99.574, kg, Start date: 08/06/15 8:49:00, Stop date: 08/06/15 8:49:00Notes: (Same as: Ativan) Inactive 08/06/2015 [facility] Coumadin 10 mg, 1 tab, Route: PO, Drug form: TAB, Q5PM, Dosing Weight 99.574, kg, Start date: 08/05/15 17:00:00, Duration: 1 doses or times, Stop date: 08/05/15 17:00:00Notes: Nurse to ensure documentation of pa tient education per anticoagulation policy. Avoid large intake of vitamin-K containing foods diet. (Same As: Coumadin) WASTE: F/P - P Waste Black; E - P Waste Black Inactive 08/05/2015 [facility] Coreg 3.125 mg, 1 tab, Route: PO, Drug form: TAB, Q12H, Dosing Weight 99.574, kg, Priority: NOW, Start date: 08/04/15 20:48:00, Duration: 30 day, Stop date: 09/03/15 9:00:00Notes: Give with food. (Same As: Coreg) No Longer Active 08/05/2015 [facility] Warfarin 10 mg, 1 tab, Route: PO, Drug form: TAB, Q5PM, Dosing Weight 99.574, kg, Start date: 08/04/15 17:00:00, Duration: 1 doses or times, Stop date: 08/04/15 17:00:00Notes: Nurse to ensure documentation of pa tient education per anticoagulation policy. Avoid large intake of vitamin-K containing foods diet. (Same As: Coumadin) WASTE: F/P - P Waste Black; E - P Waste Black Inactive 08/04/2015 [facility] Prednisone 10 mg, 1 tab, Route: PO, Drug form: TAB, Daily, Dosing Weight 99.574, kg, Start date: 08/04/15 9:00:00 CDT, Stop date: 09/02/15 9:00:00 CDTNotes: (Same as: PredniSONE) Take with food. No Longer Active 08/04/2015 [facility] Coumadin 7.5 mg, 1 tab, Route: PO, Drug form: TAB, Q5PM, Dosing Weight 99.574, kg, Start date: 08/03/15 17:00:00, Duration: 1 doses or times, Stop date: 08/03/15 17:00:00Notes: Nurse to ensure documentation of p atient education per anticoagulation policy. Avoid large intake of vitamin-K containing foods diet. WASTE: F/P - P Waste Black; E - P Waste Black (Same As: Coumadin) Inactive 08/03/2015 [facility] K-Dur 20 40 mEq, 2 tab, Route: PO, Drug form: ERTAB, ONCE, Start date: 08/03/15 14:00:00, Stop date: 08/03/15 14:00:00Notes: (Same as: K- Dur 20) "Do Not Crush" With food and full glass of water Inactive 08/03/2015 [facility] Flonase 0.05 mg/inh nasal spray 2 spray, Route: Each Affected Nostril, Drug Form: SPRY, Dosing Weight 99.574, kg, Daily, NOW, Start date: 08/02/15 18:04:00, Stop date: 09/01/15 9:00:00Notes: (Same as: Flonase) No Longer Active 08/02/2015 [facility] Budesonide 0.25 MG/ML Inhalant Solution [Pulmicort] 0.5 mg, 2 mL, Route: NEB, Drug form: SUSP, BID, Dosing Weight 99.574, kg, Priority: NOW, Start date: 08/02/15 17:58:00, Duration: 30 day, Stop date: 09/01/15 17:00:00Notes: (Same As: Pulmicort) No Longer Active 08/02/2015 [facility] Coumadin 7.5 mg, 1 tab, Route: PO, Drug form: TAB, Q5PM, Dosing Weight 99.574, kg, Start date: 08/02/15 17:00:00, Duration: 1 doses or times, Stop date: 08/02/15 17:00:00Notes: Nurse to ensure documentation of p atient education per anticoagulation policy. Avoid large intake of vitamin-K containing foods diet. WASTE: F/P - P Waste Black; E - P Waste Black (Same As: Coumadin) Inactive 08/02/2015 [facility] Albuterol 0.83 MG/ML Inhalant Solution 2.49 mg, 3 mL, Route: PO, Drug form: SOLN, RQ4H, Dosing Weight 99.574, kg, PRN Wheezing, Start date: 08/02/15 10:21:00, Duration: 30 day, Stop date: 09/01/15 10:20:00Notes: SEE RT DOCUMENTATION (Same as: Proventil) No Longer Active 08/02/2015 [facility] Coumadin 7.5 mg, 1 tab, Route: PO, Drug form: TAB, Q5PM, Start date: 08/01/15 17:00:00, Duration: 1 day, Stop date: 08/01/15 17:00:00Notes: Nurse to ensure documentation of patient education per anticoagulation policy. Avoid large intake of vitamin-K containing foods diet. WASTE: F/P - P Waste Black; E - P Waste Black (Same As: Coumadin) Inactive 08/01/2015 [facility] Warfarin 5 mg, Route: PO, Q5PM, Dosing Weight 99.574, kg, Start date: 08/01/15 17:00:00, Duration: 1 doses or times, Stop date: 08/01/15 17:00:00 Inactive 08/01/2015 [facility] Bumex 1 mg, 1 tab, Route: PO, Drug form: TAB, Daily, Dosing Weight 99.574, kg, Start date: 08/01/15 9:00:00, Duration: 30 day, Stop date: 08/30/15 9:00:00Notes: (Same As: Bumex) No Longer Active 08/01/2015 [facility] trazodone 50 mg oral tablet 25 mg, 0.5 tab, Route: PO, Drug form: TAB, ONCE, Dosing Weight 99.574, kg, Start date: 07/31/15 23:00:00, Stop date: 07/31/15 23:00:00Notes: (Same As: Desyrel) Inactive 08/01/2015 [facility] Trazodone 25 mg, 0.5 tab, Route: PO, Drug form: TAB, ONCE, Dosing Weight 99.574, kg, PRN Sleep, Start date: 07/31/15 21:49:00, Stop date: 07/31/15 21:49:00Notes: (Same As: Desyrel) Inactive 08/01/2015 [facility] Warfarin 5 mg, 1 tab, Route: PO, Drug form: TAB, Q5PM, Dosing Weight 99.574, kg, Start date: 07/31/15 17:00:00, Duration: 1 doses or times, Stop date: 07/31/15 17:00:00Notes: Nurse to ensure documentation of pat ient education per anticoagulation policy. Avoid large intake of vitamin-K containing foods diet. WASTE: F/P - P Waste Black; E - P Waste Black (Same As: Coumadin) Inactive 07/31/2015 [facility] Lactulose 20 gm, 30 ml, Route: PO, Drug Form: SYRP, Dosing Weight 99.574, kg, ONCE, PRN Constipation, Start date: 07/31/15 9:55:00, Stop date: 08/30/15 9:54:00Notes: (Same as:Chronulac) Inactive 07/31/2015 [facility] azithromycin 250 mg oral tablet 250 mg, 1 tab, Route: PO, Drug form: TAB, Daily, Dosing Weight 99.574, kg, Start date: 07/31/15 9:00:00, Duration: 4 day, Stop date: 08/03/15 9:00:00Notes: Take 1 hour before or 2 hours after meals. (Same As: Zithromax) No Longer Active 07/31/2015 [facility] Lidocaine Hydrochloride 10 MG/ML Injectable Solution 100 mg, 10 mL, Route: IV, Drug Form: INJ, Dosing Weight 99.574, kg, ONCE, Start date: 07/30/15 20:34:00, Stop date: 07/30/15 20:34:00Notes: (Same as: Xylocaine) Inactive 07/31/2015 [facility] Lidocaine Hydrochloride 20 MG/ML Injectable Solution 200 mg, 10 mL, Route: SUB-Q, Drug Form: INJ, Dosing Weight 99.574, kg, ONCE, Start date: 07/30/15 18:53:00, Stop date: 07/30/15 18:53:00Notes: Syringe (Same as: Xylocaine) Inactive 07/30/2015 [facility] azithromycin 500 mg oral tablet 500 mg, 2 tab, Route: PO, Drug form: TAB, Daily, Dosing Weight 99.574, kg, Priority: STAT, Start date: 07/30/15 18:45:00, Duration: 1 doses or times, Stop date: 07/30/15 18:45:00Notes: Take 1 hour before or 2 hours after meals. (Same As: Zithromax) Inactive 07/30/2015 [facility] Albuterol 0.833 MG/ML / Ipratropium [place] 0.167 MG/ML Inhalant Solution 3 ml, Route: NEB, Drug Form: SOLN, Dosing Weight 99.574, kg, RQ4H, STAT, Start date: 07/30/15 18:45:00, Duration: 30 day, Stop date: 08/29/15 15:00:00Notes: (Same as: Duoneb) No Longer Active 07/30/2015 [facility] Prednisone 60 mg, 3 tab, Route: PO, Drug form: TAB, Daily, Dosing Weight 99.574, kg, Priority: STAT, Start date: 07/30/15 18:45:00, Duration: 30 day, Stop date: 08/29/15 9:00:00Notes: Take with food. No Longer Active 07/30/2015 [facility] Magnesium Sulfate 2 gm, 50 mL, Route: IVPB, Drug form: INJ, ONCE, Dosing Weight 99.574, kg, Start date: 07/30/15 15:19:00, Duration: 2 hr, Stop date: 07/30/15 15:19:00Notes: WASTE: F/P - Sink; E - Municipal Trash Bin Inactive 07/30/2015 [facility] Tylenol 650 mg, 2 tab, Route: PO, Drug form: TAB, ONCE, Dosing Weight 99.574, kg, Start date: 07/30/15 1:27:00, Stop date: 07/30/15 1:27:00Notes: Do not exceed 4 gm/day. (Same as: Tylenol) Inactive 07/30/2015 [facility] Magnesium Sulfate 2 gm, 50 mL, Route: IVPB, Drug form: INJ, ONCE, Dosing Weight 99.574, kg, Start date: 07/29/15 10:51:00, Duration: 2 hr, Stop date: 07/29/15 10:51:00Notes: WASTE: F/P - Sink; E - Municipal Trash Bin Inactive 07/29/2015 [facility] Bumex 1 mg, 4 mL, Route: IVP, Drug form: INJ, Daily, Dosing Weight 99.574, kg, Priority: NOW, Start date: 07/29/15 10:17:00, Duration: 30 day, Stop date: 08/28/15 9:00:00Notes: (Same As: Bumex) No Longer Active 07/29/2015 [facility] ketoconazole topical 2% shampoo 1 appl, Route: SHAMPOO, QSat, Drug form: SHMP, Start date: 07/29/15 9:00:00, Duration: 30 day, Stop date: 08/26/15 9:00:00Notes: Non-Formulary Drug (Same as:Nizoral Topical) No Longer Active 07/29/2015 [facility] normal saline 0.9% IV 1,000 mL 1,000 mL, Rate: 50 ml/hr, Infuse over: 20 hr, Route: IVPB, Dosing Weight 99.574 kg, Total Volume: 1,000, Start date: 07/27/15 22:04:00, Duration: 30 day, Stop date: 08/26/15 22:03:00 No Longer Active 07/28/2015 [facility] hydrocortisone topical 2.5% cream 1 appl, Route: TOP, BID, Drug form: CRM, PRN Itching, Start date: 07/26/15 14:53:00, Duration: 30 day, Stop date: 08/25/15 14:52:00 No Longer Active 07/26/2015 [facility] Ketoconazole 20 MG/ML Medicated Shampoo 1 appl, Route: TOP, QWed, Drug form: SHMP, Start date: 07/26/15 14:50:00, Duration: 30 day, Stop date: 08/23/15 15:00:00Notes: Non-Formulary Drug (Same as:Nizoral Topical) No Longer Active 07/26/2015 [facility] tiotropium 0.018 MG/ACTUAT Inhalant Powder [Spiriva] 18 microgram, 1 inhalation, Route: INHALATION, Drug form: CAP, Daily, Dosing Weight 99.574, kg, Start date: 07/26/15 9:00:00, Duration: 30 day, Stop date: 08/24/15 9:00:00Notes: (Same As: Spiriva) No Longer Active 07/26/2015 [facility] Clonidine Hydrochloride 0.1 MG Oral Tablet 0.1 mg, 1 tab, Route: PO, Drug form: TAB, TID, Dosing Weight 99.574, kg, Start date: 07/22/15 17:00:00, Duration: 30 day, Stop date: 08/21/15 13:00:00Notes: (Same As: Catapres) No Longer Active 07/22/2015 [facility] Remeron 30 mg, 2 tab, Route: PO, Drug form: TAB, Bedtime, Dosing Weight 99.574, kg, Start date: 07/21/15 21:00:00, Duration: 30 day, Stop date: 08/19/15 21:00:00Notes: (Same as:Remeron) Inactive 07/22/2015 [facility] Mirtazapine 30 mg, 1 tab, Route: PO, Drug form: TAB, Bedtime, Dosing Weight 99.574, kg, Start date: 07/21/15 21:00:00, Duration: 30 day, Stop date: 09/18/15 21:00:00Notes: (Same as:Remeron) No Longer Active 07/22/2015 [facility] Hydrocortisone-Aloe 0.5% topical cream 1 appl, Route: TOP, BID, Drug form: CRM, Start date: 07/21/15 9:00:00, Duration: 30 day, Stop date: 08/19/15 17:00:00 No Longer Active 07/21/2015 [facility] Aspirin 81 mg, 1 tab, Route: PO, Drug form: ECTAB, Daily, Dosing Weight 99.574, kg, Start date: 07/21/15 9:00:00, Duration: 30 day, Stop date: 09/18/15 9:00:00Notes: Do not crush or chew. (Same As: Ecotrin) No Longer Active 07/21/2015 [facility] Clonidine Hydrochloride 0.1 MG Oral Tablet 0.1 mg, 1 tab, Route: PO, Drug form: TAB, QID, Dosing Weight 99.574, kg, Start date: 07/21/15 9:00:00, Duration: 30 day, Stop date: 08/19/15 21:00:00Notes: (Same As: Catapres) No Longer Active 07/21/2015 [facility] Folic Acid 1 mg, 1 tab, Route: PO, Drug form: TAB, Daily, Dosing Weight 99.574, kg, Start date: 07/21/15 9:00:00, Duration: 30 day, Stop date: 09/18/15 9:00:00Notes: (Same as: Folvite) No Longer Active 07/21/2015 [facility] Thiamine 100 mg, 1 tab, Route: PO, Drug form: TAB, Daily, Dosing Weight 99.574, kg, Start date: 07/21/15 9:00:00, Duration: 30 day, Stop date: 09/18/15 9:00:00Notes: (Same As: Vitamin B1) No Longer Active 07/21/2015 [facility] heparin additive 25,000 unit [18 unit/kg/hr] + Premix Diluent Dextrose 5% 500 mL 500 mL, Rate: 31.1 ml/hr, Infuse over: 16.1 hr, Route: IV, Dosing Weight 86.39 kg, Total Volume: 500 mL, Start date: 07/21/15 3:49:00, Duration: 30 day, Stop date: 08/20/15 3:48:00 No Longer Active 07/21/2015 [facility] Heparin 40 unit/kg Bolus (Heparin Dosing Weight) Route: IVP, PRN, 3,500 unit, 3.5 mL, Drug form: INJ, PRN, Heparin Protocol, Start date: 07/21/15 3:49:00 Stop date: 08/20/15 3:48:00, 30 day No Longer Active 07/21/2015 [facility] Heparin 80 unit/kg Bolus (Heparin Dosing Weight) Route: IVP, PRN, 6,900 unit, 6.9 mL, Drug form: INJ, PRN, Heparin Protocol, Start date: 07/21/15 3:49:00 Stop date: 08/20/15 3:48:00, 30 day No Longer Active 07/21/2015 [facility] tramadol hydrochloride 50 MG Oral Tablet 50 mg, 1 tab, Route: PO, Drug form: TAB, Q6H, Dosing Weight 99.574, kg, PRN Pain Score 6-10, Start date: 07/21/15 3:33:00, Duration: 30 day, Stop date: 08/20/15 3:32:00Notes: Not to exceed 400mg/day. (Same As: Ultram) No Longer Active 07/21/2015 [facility] Artificial Tears 2 drp, Route: BOTH EYES, PRN, Drug form: SOLN, PRN as needed for dry eyes, Start date: 07/21/15 3:33:00 CDT, Duration: 30 day, Stop date: 09/19/15 3:32:00 CDT No Longer Active 07/21/2015 [facility] Nitroglycerin 0.4 MG Sublingual Tablet 0.4 mg, 1 tab, Route: SL, Drug form: TAB, Q5Min, Dosing Weight 99.574, kg, PRN Chest Pain, Start date: 07/21/15 3:33:00 CDT, Duration: 30 day, Stop date: 09/19/15 3:32:00 CDTNotes: (Same as:Nitroquick, Nitrostat) "Do Not Crush" Sublingual tablet No Longer Active 07/21/2015 [facility] Clonazepam 0.5 mg, 1 tab, Route: PO, Drug form: TAB, Q6H, Dosing Weight 99.574, kg, PRN Anxiety, Start date: 07/21/15 3:33:00, Duration: 30 day, Stop date: 08/20/15 3:32:00Notes: (Same As: KlonoPIN) No Longer Active 07/21/2015 [facility] Tylenol PO, Q6H, PRN Pain Score 1-5, 0 Refill(s) No Longer Active 07/21/2015 [facility] Hydrocortisone-Aloe 0.5% topical cream 1 appl, TOP, BID, # 30 gm, 0 Refill(s) No Longer Active 07/21/2015 [facility] Aspirin 81 mg, PO, Daily, 0 Refill(s) Active 07/21/2015 [facility] 24 HR Nicotine 0.875 MG/HR Transdermal Patch =1 patch, Transdermal, Daily, 0 Refill(s) No Longer Active 07/21/2015 [facility] Clonidine Hydrochloride 0.1 MG Oral Tablet 0.1 mg=1 tab, PO, QID, 0 Refill(s) No Longer Active 07/21/2015 [facility] clonazePAM 0.5 mg oral tablet 0.5 mg=1 tab, PO, PRN, Prn anxiety q 6 hrs, 0 Refill(s) No Longer Active 07/21/2015 [facility] mirtazapine 15 mg oral tablet 15 mg=1 tab, PO, Bedtime, # 30 tab, 0 Refill(s) No Longer Active 07/21/2015 [facility] Alprazolam 0.25 MG Oral Tablet 0.25 mg=1 tab, PO, BID, PRN anxiety, stress, # 20 tab, 0 Refill(s) No Longer Active 07/21/2015 [facility] tramadol hydrochloride 50 MG Oral Tablet 50 mg=1 tab, PO, Q6H, PRN Pain, PRN for pain q 6 hrs, 0 Refill(s) No Longer Active 07/21/2015 [facility] Nitroglycerin 0.4 MG Sublingual Tablet 0.4 mg=1 tab, SL, Q5Min, PRN Chest Pain, Give up to 3 doses. Call 911 if pain persists., # 25 tab, 3 Refill(s) No Longer Active 07/21/2015 [facility] Artificial Tears BOTH EYES, PRN, 1 drop each eye q 4 hours, 0 Refill(s) No Longer Active 07/21/2015 [facility] Allergies, Adverse Reactions, Alerts No Known Medication Allergies Immunizations No Data Provided for This Section Results Order Name Results Value Reference Range Date Interpretation Comments Source HEMATOLOGY PT 14.0 12.0 - 14.7 11/29/2015 [facility] HEMATOLOGY INR 1.05 0.85 - 1.17 11/29/2015 [facility] LIPIDS CHD Risk 3.28 4.00 - 7.30 11/29/2015 [facility] LIPIDS Chol 210 <=199 mg/dL 11/29/2015 [facility] LIPIDS Trig 69 <=149 mg/dL 11/29/2015 [facility] LIPIDS HDL 64 >=61 mg/dL 11/29/2015 [facility] LIPIDS VLDL 14 11/29/2015 [facility] LIPIDS LDL (Calculated) 132 <=99 mg/dL 11/29/2015 [facility] CARDIAC ENZYMES Troponin-I <0.02 0.00 - 0.40 11/29/2015 [facility] CARDIAC ENZYMES Total CK 48 12 - 191 11/29/2015 [facility] CARDIAC ENZYMES Troponin-I <0.02 0.00 - 0.40 2015 [facility] CARDIAC ENZYMES Total CK 50 12 - 191 2015 [facility] CARDIAC ENZYMES CK MB Index 4.7 0.0 - 2.5 2015 [facility] CARDIAC ENZYMES BNP 92 <=100 pg/mL 2015 [facility] CARDIAC ENZYMES Troponin-I <0.02 0.00 - 0.40 2015 [facility] CARDIAC ENZYMES CK MB 2.7 0.5 - 3.6 2015 [facility] CARDIAC ENZYMES Total CK 57 12 - 191 2015 [facility] CHEM PANEL eGFR 96 2015 Result Comment: [...] Alk Phos 64 39 - 136 2015 [facility] CHEM PANEL Bili Total 0.3 0.2 - 1.3 2015 [facility] CHEM PANEL CO2 29 24 - 32 2015 [facility] CHEM PANEL Chloride Lvl 106 95 - 109 2015 [facility] CHEM PANEL Potassium Lvl 4.0 3.5 - 5.1 2015 [facility] CHEM PANEL A/G Ratio 1.1 0.7 - 1.6 2015 [facility] CHEM PANEL Globulin 3.5 2.0 - 4.0 2015 [facility] CHEM PANEL B/C Ratio 13 6 - 25 2015 [facility] CHEM PANEL Sodium Lvl 141 135 - 145 2015 [facility] CHEM PANEL BUN 11 7 - 22 2015 [facility] CHEM PANEL Glucose Lvl 86 70 - 99 2015 [facility] CHEM PANEL Creatinine Lvl 0.86 0.50 - 1.40 2015 [facility] HEMATOLOGY Segs-Bands # 7.8 1.5 - 8.1 2015 [facility] HEMATOLOGY Basophils 0.9 0.0 - 1.0 2015 [facility] HEMATOLOGY Basophils # 0.1 0.0 - 0.2 2015 [facility] HEMATOLOGY Segs 67.3 45.0 - 75.0 2015 [facility] HEMATOLOGY Monocytes # 0.7 0.0 - 0.8 2015 [facility] HEMATOLOGY Lymphocytes # 3.0 1.0 - 5.5 2015 [facility] HEMATOLOGY Eosinophils 0.2 0.0 - 4.0 2015 [facility] HEMATOLOGY Lymphocytes 25.5 20.0 - 40.0 2015 [facility] Monocytes 6.1 2.0 - 12.0 2015 [facility] RBC 5.08 4.70 - 6.10 2015 [facility] WBC 11.6 3.7 - 10.4 2015 [facility] MPV 7.4 7.4 - 10.4 2015 [facility] Hct 43.6 42.0 - 54.0 2015 [facility] Hgb 14.0 14.0 - 18.0 2015 [facility] MCV 85.7 80.0 - 94.0 2015 [facility] MCH 27.5 27.0 - 31.0 2015 [facility] RDW 15.0 11.5 - 14.5 2015 [facility] Platelet 244 133 - 450 2015 [facility] MCHC 32.1 32.0 - 36.0 2015 [facility] ELECTROLYTES AGAP 14.0 10.0 - 20.0 08/22/2015 [facility] ELECTROLYTES Calcium Lvl 8.3 8.5 - 10.5 08/22/2015 [facility] ELECTROLYTES CO2 26 24 - 32 08/22/2015 [facility] ELECTROLYTES eGFR 104 08/22/2015 Result Comment: The [...] should be multiplied by the estimated BMI. [facility] ELECTROLYTES Chloride Lvl 107 95 - 109 08/22/2015 [facility] ELECTROLYTES Potassium Lvl 4.0 3.5 - 5.1 08/22/2015 [facility] ELECTROLYTES Glucose Lvl 84 70 - 99 08/22/2015 [facility] ELECTROLYTES Sodium Lvl 143 135 - 145 08/22/2015 [facility] ELECTROLYTES BUN 11 7 - 22 08/22/2015 [facility] ELECTROLYTES Creatinine Lvl 0.71 0.50 - 1.40 08/22/2015 [facility] HEMATOLOGY Basophils # 0.0 0.0 - 0.2 08/22/2015 [facility] HEMATOLOGY Eosinophils 1.2 0.0 - 4.0 08/22/2015 [facility] HEMATOLOGY Monocytes 9.5 2.0 - 12.0 08/22/2015 [facility] HEMATOLOGY Monocytes # 0.6 0.0 - 0.8 08/22/2015 [facility] HEMATOLOGY Segs 59.2 45.0 - 75.0 08/22/2015 [facility] HEMATOLOGY Lymphocytes 29.8 20.0 - 40.0 08/22/2015 [facility] HEMATOLOGY Basophils 0.3 0.0 - 1.0 08/22/2015 [facility] HEMATOLOGY Segs-Bands # 3.8 1.5 - 8.1 08/22/2015 [facility] HEMATOLOGY Eosinophils # 0.1 0.0 - 0.5 08/22/2015 [facility] HEMATOLOGY Lymphocytes # 1.9 1.0 - 5.5 08/22/2015 [facility] HEMATOLOGY RBC 4.51 4.70 - 6.10 08/22/2015 [facility] HEMATOLOGY WBC 6.5 3.7 - 10.4 08/22/2015 [facility] HEMATOLOGY MCV 87.9 80.0 - 94.0 08/22/2015 [facility] HEMATOLOGY Hct 39.6 42.0 - 54.0 08/22/2015 [facility] HEMATOLOGY Hgb 12.7 14.0 - 18.0 08/22/2015 [facility] HEMATOLOGY MCHC 32.1 32.0 - 36.0 08/22/2015 [facility] HEMATOLOGY MCH 28.2 27.0 - 31.0 08/22/2015 [facility] HEMATOLOGY MPV 8.1 7.4 - 10.4 08/22/2015 [facility] HEMATOLOGY Platelet 161 133 - 450 08/22/2015 [facility] HEMATOLOGY RDW 16.3 11.5 - 14.5 08/22/2015 [facility] CARDIAC ENZYMES Troponin-I <0.02 0.00 - 0.40 08/19/2015 [facility] CARDIAC ENZYMES Total CK 54 12 - 191 08/19/2015 [facility] CARDIAC ENZYMES Troponin-I <0.02 0.00 - 0.40 08/18/2015 [facility] CARDIAC ENZYMES Total CK 30 12 - 191 08/18/2015 [facility] CARDIAC ENZYMES Troponin-I <0.02 0.00 - 0.40 08/18/2015 [facility] HEMATOLOGY PT 24.6 12.0 - 14.7 08/18/2015 [facility] HEMATOLOGY INR 2.18 0.85 - 1.17 08/18/2015 [facility] BACTERIAL - SEROLOGY MRSA by PCR Negative (08/18/15 1:44 PM) 08/18/2015 [facility] CARDIAC ENZYMES CK MB Index 3.2 0.0 - 2.5 08/18/2015 [facility] CARDIAC ENZYMES CK MB 2.0 0.5 - 3.6 08/18/2015 [facility] CARDIAC ENZYMES Total CK 62 12 - 191 08/18/2015 [facility] CHEM PANEL Lipase Lvl 114 73 - 393 08/18/2015 [facility] CHEM PANEL eGFR 97 08/18/2015 Result Comment: [...] should be multiplied by the estimated BMI. [facility] CHEM PANEL AGAP 14.6 10.0 - 20.0 08/18/2015 [facility] CHEM PANEL CO2 23 24 - 32 08/18/2015 [facility] CHEM PANEL Calcium Lvl 8.7 8.5 - 10.5 08/18/2015 [facility] CHEM PANEL Globulin 3.6 2.0 - 4.0 08/18/2015 [facility] CHEM PANEL Total Protein 6.7 6.4 - 8.4 08/18/2015 [facility] CHEM PANEL Albumin Lvl 3.1 3.5 - 5.0 08/18/2015 [facility] CHEM PANEL AST 21 0 - 37 08/18/2015 [facility] CHEM PANEL ALT 36 0 - 65 08/18/2015 [facility] CHEM PANEL B/C Ratio 25 6 - 25 08/18/2015 [facility] CHEM PANEL Bili Total 0.4 0.2 - 1.3 08/18/2015 [facility] CHEM PANEL A/G Ratio 0.9 0.7 - 1.6 08/18/2015 [facility] CHEM PANEL Alk Phos 64 39 - 136 08/18/2015 [facility] CHEM PANEL Glucose Lvl 85 70 - 99 08/18/2015 [facility] CHEM PANEL BUN 21 7 - 22 08/18/2015 [facility] CHEM PANEL Creatinine Lvl 0.83 0.50 - 1.40 08/18/2015 [facility] CHEM PANEL Potassium Lvl 4.6 3.5 - 5.1 08/18/2015 [facility] CHEM PANEL Sodium Lvl 140 135 - 145 08/18/2015 [facility] CHEM PANEL Chloride Lvl 107 95 - 109 08/18/2015 [facility] HEMATOLOGY Basophils # 0.1 0.0 - 0.2 08/18/2015 [facility] HEMATOLOGY Eosinophils # 0.1 0.0 - 0.5 08/18/2015 [facility] HEMATOLOGY Monocytes # 1.0 0.0 - 0.8 08/18/2015 [facility] HEMATOLOGY Lymphocytes # 2.4 1.0 - 5.5 08/18/2015 [facility] HEMATOLOGY Eosinophils 0.5 0.0 - 4.0 08/18/2015 [facility] HEMATOLOGY Monocytes 7.3 2.0 - 12.0 08/18/2015 [facility] HEMATOLOGY Segs-Bands # 10.0 1.5 - 8.1 08/18/2015 [facility] HEMATOLOGY Basophils 0.4 0.0 - 1.0 08/18/2015 [facility] HEMATOLOGY Lymphocytes 18.0 20.0 - 40.0 08/18/2015 [facility] HEMATOLOGY Segs 73.8 45.0 - 75.0 08/18/2015 [facility] HEMATOLOGY Plt Morph Normal (08/18/15 9:22 AM) 08/18/2015 [facility] HEMATOLOGY RBC Morph Normal (08/18/15 9:22 AM) 08/18/2015 [facility] HEMATOLOGY Platelet 207 133 - 450 08/18/2015 Result Comment: Reviewed. [facility] HEMATOLOGY RBC 4.79 4.70 - 6.10 08/18/2015 [facility] HEMATOLOGY WBC 13.5 3.7 - 10.4 08/18/2015 [facility] HEMATOLOGY Hgb 13.7 14.0 - 18.0 08/18/2015 [facility] HEMATOLOGY Hct 42.1 42.0 - 54.0 08/18/2015 [facility] HEMATOLOGY RDW 16.1 11.5 - 14.5 08/18/2015 [facility] HEMATOLOGY MPV 7.7 7.4 - 10.4 08/18/2015 [facility] HEMATOLOGY MCH 28.5 27.0 - 31.0 08/18/2015 [facility] HEMATOLOGY MCV 87.9 80.0 - 94.0 08/18/2015 [facility] HEMATOLOGY MCHC 32.4 32.0 - 36.0 08/18/2015 [facility] ELECTROLYTES AGAP 11.7 10.0 - 20.0 08/17/2015 [facility] ELECTROLYTES eGFR 112 08/17/2015 Result Comment: The [...] should be multiplied by the estimated BMI. [facility] ELECTROLYTES Calcium Lvl 7.1 8.5 - 10.5 08/17/2015 [facility] ELECTROLYTES Creatinine Lvl 0.58 0.50 - 1.40 08/17/2015 [facility] ELECTROLYTES Sodium Lvl 146 135 - 145 08/17/2015 [facility] ELECTROLYTES BUN 13 7 - 22 08/17/2015 [facility] ELECTROLYTES Glucose Lvl 78 70 - 99 08/17/2015 [facility] ELECTROLYTES Chloride Lvl 115 95 - 109 08/17/2015 [facility] ELECTROLYTES CO2 23 24 - 32 08/17/2015 [facility] ELECTROLYTES Potassium Lvl 3.7 3.5 - 5.1 08/17/2015 [facility] HEMATOLOGY MCH 28.8 27.0 - 31.0 08/17/2015 [facility] HEMATOLOGY Hct 36.5 42.0 - 54.0 08/17/2015 [facility] HEMATOLOGY MCV 88.6 80.0 - 94.0 08/17/2015 [facility] HEMATOLOGY Hgb 11.8 14.0 - 18.0 08/17/2015 [facility] HEMATOLOGY Platelet 149 133 - 450 08/17/2015 [facility] HEMATOLOGY MCHC 32.5 32.0 - 36.0 08/17/2015 [facility] HEMATOLOGY RDW 15.4 11.5 - 14.5 08/17/2015 [facility] HEMATOLOGY MPV 7.2 7.4 - 10.4 08/17/2015 [facility] HEMATOLOGY WBC 8.5 3.7 - 10.4 08/17/2015 [facility] HEMATOLOGY RBC 4.12 4.70 - 6.10 08/17/2015 [facility] HEMATOLOGY Monocytes 7.1 2.0 - 12.0 08/17/2015 [facility] HEMATOLOGY Basophils 0.4 0.0 - 1.0 08/17/2015 [facility] HEMATOLOGY Segs-Bands # 5.8 1.5 - 8.1 08/17/2015 [facility] HEMATOLOGY Eosinophils 0.5 0.0 - 4.0 08/17/2015 [facility] HEMATOLOGY Lymphocytes 23.4 20.0 - 40.0 08/17/2015 [facility] HEMATOLOGY Segs 68.6 45.0 - 75.0 08/17/2015 [facility] HEMATOLOGY Lymphocytes # 2.0 1.0 - 5.5 08/17/2015 [facility] HEMATOLOGY Monocytes # 0.6 0.0 - 0.8 08/17/2015 [facility] HEMATOLOGY INR 2.09 0.85 - 1.17 08/17/2015 [facility] HEMATOLOGY PT 23.8 12.0 - 14.7 08/17/2015 [facility] HEMATOLOGY INR 1.84 0.85 - 1.17 08/16/2015 [facility] HEMATOLOGY PT 21.6 12.0 - 14.7 08/16/2015 [facility] HEMATOLOGY INR 2.24 0.85 - 1.17 08/15/2015 [facility] HEMATOLOGY PT 25.1 12.0 - 14.7 08/15/2015 [facility] ELECTROLYTES Potassium Lvl 4.2 3.5 - 5.1 08/14/2015 [facility] ELECTROLYTES Chloride Lvl 107 95 - 109 08/14/2015 [facility] ELECTROLYTES Creatinine Lvl 0.93 0.50 - 1.40 08/14/2015 [facility] ELECTROLYTES Sodium Lvl 140 135 - 145 08/14/2015 [facility] ELECTROLYTES BUN 27 7 - 22 08/14/2015 [facility] ELECTROLYTES Calcium Lvl 8.5 8.5 - 10.5 08/14/2015 [facility] ELECTROLYTES CO2 26 24 - 32 08/14/2015 [facility] ELECTROLYTES eGFR 91 08/14/2015 Result Comment: The [...] should be multiplied by the estimated BMI. [facility] ELECTROLYTES Glucose Lvl 84 70 - 99 08/14/2015 [facility] ELECTROLYTES AGAP 11.2 10.0 - 20.0 08/14/2015 [facility] CHEM PANEL Magnesium Lvl 2.2 1.8 - 2.4 08/10/2015 [facility] CHEM PANEL eGFR 102 08/10/2015 Result Comment: [...] should be multiplied by the estimated BMI. [facility] CHEM PANEL Calcium Lvl 8.8 8.5 - 10.5 08/10/2015 [facility] CHEM PANEL CO2 28 24 - 32 08/10/2015 [facility] CHEM PANEL Chloride Lvl 106 95 - 109 08/10/2015 [facility] CHEM PANEL Potassium Lvl 4.2 3.5 - 5.1 08/10/2015 [facility] CHEM PANEL Sodium Lvl 140 135 - 145 08/10/2015 [facility] CHEM PANEL BUN 20 7 - 22 08/10/2015 [facility] CHEM PANEL Creatinine Lvl 0.74 0.50 - 1.40 08/10/2015 [facility] CHEM PANEL Glucose Lvl 78 70 - 99 08/10/2015 [facility] CHEM PANEL AGAP 10.2 10.0 - 20.0 08/10/2015 [facility] CHEM PANEL Phosphorus 3.7 2.5 - 4.5 08/10/2015 [facility] HEMATOLOGY RBC Morph Normal (08/10/15 5:29 AM) 08/10/2015 [facility] HEMATOLOGY Plt Morph Normal (08/10/15 5:29 AM) 08/10/2015 [facility] HEMATOLOGY Atypical Lymphs 0.0 <=0.0 % 08/10/2015 [facility] HEMATOLOGY Myelocytes 1.0 <=0.0 % 08/10/2015 [facility] HEMATOLOGY Metamyelocytes 1.0 0.0 - 1.0 08/10/2015 [facility] HEMATOLOGY Lymphocytes 24.0 20.0 - 40.0 08/10/2015 [facility] HEMATOLOGY Monocytes 6.0 2.0 - 12.0 08/10/2015 [facility] HEMATOLOGY Segs-Bands # 8.4 1.5 - 8.1 08/10/2015 [facility] HEMATOLOGY Bands 1.0 0.0 - 11.0 08/10/2015 [facility] HEMATOLOGY Monocytes # 0.7 0.0 - 0.8 08/10/2015 [facility] HEMATOLOGY Lymphocytes # 3.0 1.0 - 5.5 08/10/2015 [facility] HEMATOLOGY Segs 67.0 45.0 - 75.0 08/10/2015 [facility] HEMATOLOGY WBC 12.3 3.7 - 10.4 08/10/2015 [facility] HEMATOLOGY RBC 4.82 4.70 - 6.10 08/10/2015 [facility] HEMATOLOGY Hgb 13.6 14.0 - 18.0 08/10/2015 [facility] HEMATOLOGY MCH 28.3 27.0 - 31.0 08/10/2015 [facility] HEMATOLOGY Platelet 227 133 - 450 08/10/2015 [facility] HEMATOLOGY MCHC 32.4 32.0 - 36.0 08/10/2015 [facility] HEMATOLOGY RDW 15.3 11.5 - 14.5 08/10/2015 [facility] HEMATOLOGY MCV 87.2 80.0 - 94.0 08/10/2015 [facility] HEMATOLOGY Hct 42.0 42.0 - 54.0 08/10/2015 [facility] HEMATOLOGY MPV 7.2 7.4 - 10.4 08/10/2015 [facility] CHEM PANEL Magnesium Lvl 2.1 1.8 - 2.4 08/09/2015 [facility] CHEM PANEL Phosphorus 3.9 2.5 - 4.5 08/09/2015 [facility] HEMATOLOGY Myelocytes 1.0 <=0.0 % 08/09/2015 [facility] HEMATOLOGY RBC Morph Normal (08/09/15 4:34 AM) 08/09/2015 [facility] HEMATOLOGY Atypical Lymphs 1.0 <=0.0 % 08/09/2015 [facility] HEMATOLOGY Monocytes # 0.4 0.0 - 0.8 08/09/2015 [facility] HEMATOLOGY Segs-Bands # 7.7 1.5 - 8.1 08/09/2015 [facility] HEMATOLOGY Lymphocytes # 2.8 1.0 - 5.5 08/09/2015 [facility] HEMATOLOGY Plt Morph Normal (08/09/15 4:34 AM) 08/09/2015 [facility] HEMATOLOGY Lymphocytes 24.0 20.0 - 40.0 08/09/2015 [facility] HEMATOLOGY Monocytes 4.0 2.0 - 12.0 08/09/2015 [facility] HEMATOLOGY Segs 65.0 45.0 - 75.0 08/09/2015 [facility] HEMATOLOGY Bands 4.0 0.0 - 11.0 08/09/2015 [facility] HEMATOLOGY Metamyelocytes 1.0 0.0 - 1.0 08/09/2015 [facility] HEMATOLOGY MCV 88.1 80.0 - 94.0 08/09/2015 [facility] HEMATOLOGY MCHC 32.6 32.0 - 36.0 08/09/2015 [facility] HEMATOLOGY MCH 28.7 27.0 - 31.0 08/09/2015 [facility] HEMATOLOGY Hct 42.6 42.0 - 54.0 08/09/2015 [facility] HEMATOLOGY Hgb 13.9 14.0 - 18.0 08/09/2015 [facility] HEMATOLOGY MPV 7.4 7.4 - 10.4 08/09/2015 [facility] HEMATOLOGY RDW 15.4 11.5 - 14.5 08/09/2015 [facility] HEMATOLOGY Platelet 205 133 - 450 08/09/2015 [facility] HEMATOLOGY RBC 4.83 4.70 - 6.10 08/09/2015 [facility] HEMATOLOGY WBC 11.1 3.7 - 10.4 08/09/2015 [facility] CHEM PANEL Magnesium Lvl 2.2 1.8 - 2.4 08/08/2015 [facility] CHEM PANEL Phosphorus 4.1 2.5 - 4.5 08/08/2015 [facility] HEMATOLOGY Eosinophils # 0.2 0.0 - 0.5 08/08/2015 [facility] HEMATOLOGY Basophils # 0.1 0.0 - 0.2 08/08/2015 [facility] HEMATOLOGY Plt Morph Normal (08/08/15 3:55 AM) 08/08/2015 [facility] HEMATOLOGY RBC Morph Normal (08/08/15 3:55 AM) 08/08/2015 [facility] HEMATOLOGY Basophils 0.5 0.0 - 1.0 08/08/2015 [facility] HEMATOLOGY Eosinophils 1.2 0.0 - 4.0 08/08/2015 [facility] HEMATOLOGY Basophils 0.7 0.0 - 1.0 08/07/2015 [facility] HEMATOLOGY Eosinophils 0.4 0.0 - 4.0 08/07/2015 [facility] HEMATOLOGY Basophils # 0.1 0.0 - 0.2 08/07/2015 [facility] HEMATOLOGY PTT 69.5 22.9 - 35.8 08/06/2015 [facility] HEMATOLOGY Toxic Gran See Note 1 (08/06/15 3:33 AM) None Seen 08/06/2015 Result Comment: Slight [facility] HEMATOLOGY Atypical Lymphs 0.0 <=0.0 % 08/06/2015 [facility] HEMATOLOGY Bands 1.0 0.0 - 11.0 08/06/2015 [facility] HEMATOLOGY PTT 64.0 22.9 - 35.8 08/05/2015 [facility] HEMATOLOGY Toxic Gran slight 08/05/2015 [facility] HEMATOLOGY PTT 68.9 22.9 - 35.8 08/05/2015 [facility] HEMATOLOGY Anisocyte 1+ *ABN* (07/31/15 10:41 AM) None Seen 07/31/2015 [facility] HEMATOLOGY Basophils # 0.2 0.0 - 0.2 07/31/2015 [facility] CHEM PANEL Lactic Acid Lvl 1.0 0.5 - 2.2 07/30/2015 [facility] HEMATOLOGY POC Activated Clotting Time 206 07/28/2015 [facility] HEMATOLOGY Eosinophils # 0.1 0.0 - 0.5 07/28/2015 [facility] HEMATOLOGY Eosinophils # 0.1 0.0 - 0.5 07/27/2015 [facility] LIPIDS HDL 45 >=61 mg/dL 07/25/2015 [facility] LIPIDS Chol 162 <=199 mg/dL 07/25/2015 [facility] LIPIDS Trig 74 <=149 mg/dL 07/25/2015 [facility] LIPIDS VLDL 15 07/25/2015 [facility] LIPIDS LDL (Calculated) 102 <=99 mg/dL 07/25/2015 [facility] LIPIDS CHD Risk 3.60 4.00 - 7.30 07/25/2015 [facility] CARDIAC ENZYMES Troponin-I 0.09 0.00 - 0.40 07/21/2015 [facility] CARDIAC ENZYMES Troponin-T 0.035 0.000 - 0.100 07/21/2015 [facility] CARDIAC ENZYMES Total CK 36 12 - 191 07/21/2015 [facility] CARDIAC ENZYMES Troponin-I 0.10 0.00 - 0.40 07/21/2015 [facility] CARDIAC ENZYMES Total CK 32 12 - 191 07/21/2015 [facility] CARDIAC ENZYMES BNP 158 <=100 pg/mL 07/21/2015 [facility] CHEM PANEL A/G Ratio 0.9 0.7 - 1.6 07/21/2015 [facility] CHEM PANEL Bili Total 0.8 0.2 - 1.3 07/21/2015 [facility] CHEM PANEL Alk Phos 59 39 - 136 07/21/2015 [facility] CHEM PANEL Globulin 3.3 2.0 - 4.0 07/21/2015 [facility] CHEM PANEL B/C Ratio 14 6 - 25 07/21/2015 [facility] CHEM PANEL AST 6 0 - 37 07/21/2015 [facility] CHEM PANEL ALT 15 0 - 65 07/21/2015 [facility] CHEM PANEL Albumin Lvl 2.9 3.5 - 5.0 07/21/2015 [facility] CHEM PANEL Total Protein 6.2 6.4 - 8.4 07/21/2015 [facility] CHEM PANEL Amylase Lvl 46 25 - 115 07/21/2015 [facility] CHEM PANEL Lipase Lvl 85 73 - 393 07/21/2015 [facility] SPECIAL CHEMISTRY Hgb A1C 5.4 <=5.6 % 07/21/2015 [facility] Pathology Reports No Data Provided for This Section Diagnostic Reports Report Value Date Source Chest CTA Patient Name: ALETHA LOWERY : 1955; Age: 59 years Male MR: [id number] Study: Chest CTA 2015 3:09 PM CDT [...] 2015 6:09 PM CDT. SL: ANGELY 2015 [facility] 1view DX Study: Chest 1view DX Clinical Indication: Dyspnea Comparison: Chest x-ray from 08/21/2015 FINDINGS: Left sided dual-chamber pacemaker is stable. Cardiac silhouette is normal in size. Small right pleural effusion is seen. There is no pneumothorax. The osseous structures are unremarkable. IMPRESSION: Small right pleural effusion SL: [id number] 2015 [facility] 1view DX Patient Name: ALETHA LOWERY. : 1955; Age: 59 years y/o; Male. MR: [id number]. Ordering Physician: Jocy Bialon MD. PORTABLE CHEST AP: HISTORY: Cough. COMPARISON: [...] Left lung is unremarkable. SL: WR4-M 08/21/2015 [facility] Knee 1-2 Views Bilateral DX Two-view bilateral [...] knee joint effusion suspected. SL: WR1-M 08/20/2015 [facility] Brain wo contrast CT Patient Name: ALETHA LOWERY : 1955; Age: 59 years; Gender: Male MR: [id number] Ordering Physician: Piter Leslie MD PROCEDURE: CT head without contrast INDICATION: Pain Post Trauma. Fall with trauma to the frontal area. Patient is on blood thinners. TECHNIQUE: CT images were obtained from the foramen magnum to the vertex without the use of intravenous contrast on a multidetector CT. Total CT radiation dose: PHB=3283 mGy-cm COMPARISON: None. FINDINGS: No evidence for [...] 3. Possible mild right maxillary sinusitis. SL: [id number] 08/20/2015 [facility] Chest 1view DX CHEST RADIOGRAPH ONE VIEW [...] and/or thickening. 3. Enlarged cardiac silhouette. SL: [id number] 08/18/2015 [facility] Chest 1view DX EXAM: XR CHEST 1 VIEW DATE: 08/06/2015 8:49 AM CDT INDICATION: Coughing. FINDINGS: Comparison is made to August 01. The cardiomediastinal silhouette, life-support lines and tubes are stable. The lungs are clear of consolidation. There are calcified granulomas in the right lower lobe. No pleural effusions are identified. IMPRESSION: No acute abnormality. 08/06/2015 [facility] Chest 1view DX EXAM: XR CHEST 1 VIEW DATE: 08/02/2015 10:20 AM CDT INDICATION: Abnormal chest sounds COMPARISON: Chest x-ray from 07/30/2015 TECHNIQUE: AP chest FINDINGS: Stable right arm PICC. Stable left implantable cardiac defibrillator Stable cardiomediastinal silhouette. Small right pleural effusion versus pleural thickening. No new pleural or parenchymal based abnormalities. IMPRESSION: No significant change. 08/02/2015 [facility] Chest 1view DX EXAM: XR CHEST 1 VIEW DATE: 07/30/2015 7:41 PM CDT INDICATION: Dyspnea COMPARISON: Yesterday TECHNIQUE: AP chest FINDINGS: Stable right arm PICC. Stable left implantable cardiac defibrillator Stable cardiomediastinal silhouette. Small right pleural effusion versus pleural thickening. No new pleural or parenchymal based abnormalities. IMPRESSION: No significant changes compared to yesterday. 07/30/2015 [facility] HVI VAS Venous Lower Ext Bilat Doppler [...] no evidence of deep venous thrombosis. 07/29/2015 [facility] Chest 1view DX EXAM: XR CHEST 1 VIEW DATE: 07/29/2015 9:47 AM CDT INDICATION: Shortness of Breath COMPARISON: 07/21/2015 TECHNIQUE: AP chest FINDINGS: Stable right arm PICC. Stable left implantable cardiac defibrillator Stable cardiomediastinal silhouette. Small right pleural effusion. No new pleural or parenchymal based abnormalities. IMPRESSION: No significant changes compared to yesterday at 2:24 AM 07/29/2015 [facility] HVI VAS Arterial Extracranial Doppler Bi INDICATION: [...] was noted in the vertebral arteries. 07/21/2015 [facility] Chest 1view DX EXAM: XR CHEST 1 [...] tip overlies the right brachiocephalic vein. 07/21/2015 [facility] Consultation Notes No Data Provided for This Section Discharge Summaries No Data Provided for This Section History and Physicals No Data Provided for This Section Vital Signs Vital Sign Value Date Comments Source Systolic (mm Hg) 109 12/02/2015 [facility] Diastolic (mm Hg) 76 12/02/2015 [facility] Respitory Rate 22 12/02/2015 [facility] Heart Rate 87 12/02/2015 [facility] Temperature Oral (F) 97.6 F 12/02/2015 [facility] Systolic (mm Hg) 122 12/02/2015 [facility] Diastolic (mm Hg) 82 12/02/2015 [facility] Heart Rate 74 12/02/2015 [facility] Temperature Oral (F) 97.3 F 12/02/2015 [facility] Respitory Rate 21 12/02/2015 [facility] Temperature Oral (F) 97.3 F 12/02/2015 [facility] Heart Rate 73 12/02/2015 [facility] Systolic (mm Hg) 104 12/02/2015 [facility] Diastolic (mm Hg) 67 12/02/2015 [facility] Respitory Rate 16 12/02/2015 [facility] Height 182.88 cm 2015 [facility] BMI Calculated 31.53 2015 [facility] Weight 105.455 2015 [facility] Weight 113.636 2015 [facility] Height 182.88 cm 2015 [facility] BMI Calculated 33.98 2015 [facility] Respitory Rate 20 08/23/2015 [facility] Heart Rate 83 08/23/2015 [facility] Temperature Oral (F) 97.4 F 08/23/2015 [facility] Systolic (mm Hg) 107 08/23/2015 [facility] Diastolic (mm Hg) 53 08/23/2015 [facility] Temperature Oral (F) 97.7 F 08/23/2015 [facility] Heart Rate 82 08/23/2015 [facility] Respitory Rate 20 08/23/2015 [facility] Systolic (mm Hg) 130 08/23/2015 [facility] Diastolic (mm Hg) 84 08/23/2015 [facility] Respitory Rate 20 08/23/2015 [facility] Temperature Oral (F) 97.3 F 08/23/2015 [facility] Systolic (mm Hg) 128 08/23/2015 [facility] Diastolic (mm Hg) 85 08/23/2015 [facility] Height 182.88 cm 08/18/2015 [facility] Weight 95 08/18/2015 [facility] BMI Calculated 28.4 08/18/2015 [facility] Heart Rate 83 08/18/2015 [facility] Systolic (mm Hg) 125 08/18/2015 [facility] Diastolic (mm Hg) 82 08/18/2015 [facility] Heart Rate 105 08/18/2015 [facility] Respitory Rate 18 08/18/2015 [facility] Temperature Oral (F) 97.9 F 08/18/2015 [facility] Heart Rate 83 08/18/2015 [facility] Respitory Rate 18 08/18/2015 [facility] Systolic (mm Hg) 91 08/18/2015 [facility] Diastolic (mm Hg) 67 08/18/2015 [facility] Temperature Oral (F) 97.7 F 08/17/2015 [facility] Systolic (mm Hg) 102 08/17/2015 [facility] Diastolic (mm Hg) 71 08/17/2015 [facility] Respitory Rate 18 08/17/2015 [facility] Heart Rate 81 08/17/2015 [facility] Temperature Oral (F) 97.7 F 08/17/2015 [facility] BMI Calculated 29.77 07/21/2015 [facility] Weight 99.574 07/21/2015 [facility] Height 182.88 cm 07/21/2015 [facility] Encounters Location Location Details Encounter Type Encounter Number Reason For Visit Attending Provider ADM Date DC Date Status Source [facility] Inpatient [id number] Arie Chung 07/21/2015 08/18/2015 [facility] OBS Observation Patient [id number] Elham Bryson 08/18/2015 08/23/2015 [facility]patient [id number] Octavio Dc Jr 2015 12/02/2015 [facility] Procedures Procedure Code Date Perfomer Comments Source Insertion of cardiac pacemaker [id number] [facility] Assessment and Plan Assessment and Plan Date Source Extracted from:Title: Clinical Document Author: Jana Monson MD Date: 12/02/15 [facility] Progress Note Impression: Prior [...] CTA of the chest done at the [facility]. Those records would be helpful, to determineif [...] discharge tomorrow. Will likely need SW assistance. [facility] Hospitalist Service is primary. Call with questions. 12/02/2015 BALDO Rosales Extracted from:Title: Discharge Summary Author: Jocy Bailon MD Date: 08/23/15 <Discharge Summary> Attending: Elham Bryson MD Service: Internal Medicine Code status: None Specified=FULL CODE Reason for Admission: CHEST PAIN, BRADYCARDIA, SUICIDAL IDEATION Working DRG: None Documented Isolation: None Documented Consulting Physicians: Humberto Beavers MD Office: MSO: [id number] Service: Cardiology Piter Leslie MD Office: MSO: [id number] Service: Medicine Jocy Bailon MD Office: MSO: [id number] Service: Medicine Elham Bryson MD Office: MSO: [id number] Service: Medicine Admission Date: 08/18/2015 Discharge Date: [...] dx iwth PE, who was sent from [facility] for an episode of bradycardia and [...] PCP in 1 week after discharge from [facility] I have spent 35 min with the patient and in coordinating discharge. Extracted from:Title: [facility] Cardiology Consult Note Author: Rosemary Vasquez MD [...] consult. Patient okay to discharge back to [facility]. He should follow-up with PCP or Senior [facility] upon discharge. 08/23/2015 [facility] Extracted from:Title: Clinical Document Author: Arie Chung MD Date: 08/16/15 Acute Care Service Line Progress Note Pager#[phone] Attending: Arie Chung Subjective: complains of back [...] alcohol abuse and COPD who presented to [facility] with chest pain as an outside [...] would otherwise require daily venous sticks. 08/18/2015 [facility] Plan of Care No Data Provided for [...] Yes; Reg Smoking Cessation Counseling No 12/01/2015 [facility] Social History TypeResponse Alcohol Current, Type Beer. [...] Yes; Reg Smoking Cessation Counseling No 07/21/2015 [facility] Social History TypeResponse Alcohol Current, Type Beer. [...] Yes; Reg Smoking Cessation Counseling No 07/21/2015 [facility] Family History No Data Provided for This Section Advance Directives No Data Provided for This Section Functional Status No Data Provided for This Section
[2018-12-06 18:57] LABS: MUCUS,URINE FEW (RARE); WBC,URINE (MAN) 0-5 /HPF (0-5)
[2018-12-06 19:00] LABS: HYALINE CASTS >15 (0-1)
[2018-12-06] MEDS ORDERED: ALBUTEROL SULF 0.083% NEB SOLN 3 ML NEB NEB SCH (19:00)
[2018-12-06] MEDS ORDERED: IPRATROPIUM BROMIDE 0.02% 2.5 ML NEB NEB SCH (19:00)
--- NOTE | 2018-12-06 19:00 | NUR ---
SPOKE WITH ER - NO NEED FOR SECOND LACTIC ACID DRAW PER DR BOOGIE
[2018-12-06] MEDS: AZITHROMYCIN 500MG/NS 250 ML 250 ML IV SCH (19:09)
[2018-12-06] MEDS: SODIUM CHLORIDE 0.9% 1000ML 1,000 ML IV SCH (19:09)
[2018-12-06] MEDS: ALBUTEROL/IPRATROPIUM 3 ML NEB INH SCH ×2 (20:12→22:53)
--- NOTE | 2018-12-06 22:20 | NUR ---
Received to 195 from ER. Placed on EKG, pulse ox & NBP for monitoring. Admission history, vaccine history & Initial admission assessment completed. IV NS @ 125ml/hr & Levophed @ 7.5mcg/min. Requests something to drink. Advised of NPO status.
[2018-12-06 22:30] VITALS: BP 121/107
[2018-12-06 22:39] VITALS: BP 121/83
[2018-12-06 22:45] VITALS: BP 131/103
[2018-12-06 23:04] VITALS: BP 74/57
[2018-12-06 23:15] VITALS: BP 97/73
--- NOTE | 2018-12-06 23:15 | NUR ---
Requests pain medication. Advised of hypotension.
[2018-12-07] VITALS (47 sets, daily range): BP systolic 66–170; BP diastolic 23–120
[2018-12-07 01:27] LABS: CREATINE KINASE 30 IU/L (30-200)
[2018-12-07] MEDS ORDERED: VANCOMYCIN 1GM/NS 250 ML 250 ML IV SCH (02:00)
[2018-12-07] MEDS: CEFEPIME 2 GM/NS 0.9% 100 ML 100 ML IV SCH ×2 (02:00→13:05)
--- NOTE | 2018-12-07 02:09 | NUR ---
Once again asking for water. Advised of NPO status. Cont to yell "I want water". Lemon swabs given.
[2018-12-07] MEDS: ALBUTEROL/IPRATROPIUM 3 ML NEB INH SCH ×7 (03:00→23:00)
--- NOTE | 2018-12-07 04:00 | NUR ---
Very beligerant. Threating to leave AMA. Wanting H2O. Advised when MD makes rounds he can ask for diet.
[2018-12-07 04:24] LABS: BASOPHILS % 0.1 % (0.0-1.0); EOSINOPHILS # (AUTO) 0.2 (0.0-0.4); HEMATOCRIT 27.7 % (38.2-49.6); HEMOGLOBIN 8.2 g/dL (14.0-18.0); LYMPHOCYTES # (AUTO) 0.9 (1.0-3.2); LYMPHOCYTES % 12.8 % (18.0-39.1); MEAN CORPUSCULAR HEMOGLOBIN 23.4 pg (28-32); MEAN CORPUSCULAR HGB CONC 29.6 g/dL (31-35); MEAN CORPUSCULAR VOLUME 78.9 fL (81-99); MONOCYTES % 0.3 % (4.4-11.3); NEUTROPHILS # (AUTO) 6.2 (2.1-6.9); NEUTROPHILS % 84.4 % (38.7-80.0); PLATELET COUNT 347 x10e3/uL (140-360); RED BLOOD COUNT 3.51 x10e6/uL (4.3-5.7); RED CELL DISTRIBUTION WIDTH 17.3 % (11.7-14.4)
[2018-12-07 04:46] LABS: ALANINE AMINOTRANSFERASE 10 IU/L (0-55); ALBUMIN 2.9 g/dL (3.5-5.0); ALBUMIN/GLOBULIN RATIO 0.9 (0.8-2.0); ALKALINE PHOSPHATASE 87 IU/L (40-150); ANION GAP 14.1 mmol/L (8-16); BLOOD UREA NITROGEN 12 mg/dL (7-26); BUN/CREATININE RATIO 17 (6-25); CALCIUM 8.3 mg/dL (8.4-10.2); CARBON DIOXIDE 23 mmol/L (22-29); CHLORIDE 106 mmol/L (98-107); CREATININE, SERUM 0.71 mg/dL (0.72-1.25); EST GLOMERULAR FILTRATION RATE > 60 ML/MIN (60-); GLUCOSE 147 mg/dL (74-118); POTASSIUM 4.1 mmol/L (3.5-5.1); SODIUM 139 mmol/L (136-145)
[2018-12-07 05:06] LABS: CREATINE KINASE 26 IU/L (30-200)
--- NOTE | 2018-12-07 05:30 | NUR ---
Call to Earnest Bruner NP for Dr. Marin. Advised of pt wanting to leave. Requested diet order. CL diet given. H2O given per request.
[2018-12-07] MEDS: SODIUM CHLORIDE 0.9% 1000ML 1,000 ML IV SCH ×2 (05:43→11:26)
[2018-12-07 06:45] LABS: LYMPHOCYTES % (MANUAL) 15 % (19-48); MONOCYTES % (MANUAL) 2 % (3.4-9.0); NEUTROPHILS % (MANUAL) 83 % (40-74)
[2018-12-07 06:46] LABS: ANISOCYTOSIS S; OVALOCYTES FEW; PLATELET ESTIMATE ADEQUATE; PLATELET MORPHOLOGY COMMENT NORMAL; POIKILOCYTOSIS F; RBC MORPHOLOGY COMMENT NORMAL
--- NOTE | 2018-12-07 07:48 | Diagnostic Imaging Report ---
EXAM: CHEST SINGLE (PORTABLE), AP Portable DATE: 12/07/2018 Time stamp on exam: 5:45 AM INDICATION: Pneumonia COMPARISON: 12/06/2018 FINDINGS: LINES/TUBES: No change in the right IJ central line with a dual lead left-sided cardiac device again noted. LUNGS: No change in the right upper lobe pulmonary opacity. There is slight increased pulmonary vascularity compared to the prior study. PLEURA: Small right pleural effusion. HEART AND MEDIASTINUM: Normal size and contour. BONES AND SOFT TISSUES: No acute findings. IMPRESSION: Increased pulmonary vascularity without significant change involving the right upper lobe pulmonary opacity. Signed by: Dr. Layton Broussard DO on 12/07/2018 7:45 AM
[2018-12-07] MEDS ORDERED: MORPHINE SULFATE INJ 4 MG/ML INJ 1ML ONE (08:04)
[2018-12-07] MEDS: MORPHINE SULFATE 2 MG/ML SYR 1ML IV PRN ×4 (08:05→21:41)
[2018-12-07 08:54] LABS: CREATINE KINASE 26 IU/L (30-200)
[2018-12-07] MEDS: AZITHROMYCIN 500MG/NS 250 ML 250 ML IV SCH (09:15)
--- NOTE | 2018-12-07 11:40 | NUR ---
LEFT MESSAGE WITH DR KUMAR'S OFFICE REGARDING NEW CONSULT FOR CHEST PAIN.
[2018-12-07] MEDS ORDERED: ALBUTEROL/IPRATROPIUM 3 ML NEB NEB PRN (11:45)
--- NOTE | 2018-12-07 12:06 | NUR ---
LEFT MESSAGE WITH VENEER SUPERVISOR REGARDING NEW CONSULT.
[2018-12-07] MEDS: GUAIFENESIN 200 MG/10 ML UDC PO SCH ×2 (13:05→21:41)
[2018-12-07] MEDS: NITROGLYCERIN 0.4 MG SUBL SL PRN ×3 (14:11→18:21)
--- NOTE | 2018-12-07 15:24 | NUR ---
0800PATIENT COMPLAINS OF CHEST PAIN 02/11. SPOKE WITH EVERARDO,SULKY DRIVER AND NEW ORDERS RECEIVED. MEDICATED WITH MORPHINE. AND STAT EKG DONE. CONTINUES ON LEVOPHED FOR BP SUPPORT. 1400PATIENT CONTINUES TO COMPLAIN OF CHEST PAIN. 01/12. RR 35 NITRO SUBLINGUAL GIVEN AT 1411 AND 1417 WITH SOME RELIEF. PATIENT FELL ASLEEP SHORTLY AFTER GIVEN NITRO AND RR 20. BP SUPPORTED WITH LEVOPHED,
[2018-12-07] MEDS: HYDROCODONE/APAP 5MG-325MG TAB PO PRN (15:43)
[2018-12-07] MEDS: LEVETIRACETAM 500 MG TAB PO SCH (17:18)
[2018-12-07] MEDS: NOREPINEPHRINE 8 MG/D5W 250 ML 250 ML IV SCH (18:00)
[2018-12-07] MEDS ORDERED: NICOTINE 21 MG/EA PATCH TOP PRN (18:15)
[2018-12-07] MEDS: MIRTAZAPINE 15 MG TAB PO SCH (20:04)
[2018-12-07] MEDS: LORATADINE 10 MG TAB PO SCH (20:04)
[2018-12-07] MEDS: ATORVASTATIN 20 MG TAB PO SCH (20:04)
[2018-12-07] MEDS: CLOPIDOGREL BISULFATE 75 MG TAB PO SCH (20:04)
[2018-12-07] MEDS: QUETIAPINE FUMARATE 25 MG TAB PO SCH (20:05)
[2018-12-07] MEDS ORDERED: METHYLPREDNISOLONE SOD SUCC 40 MG/ML VIAL 1ML IV SCH ×2 (21:00)
[2018-12-08] VITALS (24 sets, daily range): BP systolic 86–162; BP diastolic 58–145
[2018-12-08] MEDS: CEFEPIME 2 GM/NS 0.9% 100 ML 100 ML IV SCH ×2 (01:16→13:45)
--- NOTE | 2018-12-08 01:42 | Consultation ---
DATE OF CONSULTATION: 12/07/2018 Cardiology Consult Note REASON FOR CONSULT: Chest pain. CHIEF COMPLAINT: Chest pain. HISTORY OF PRESENT ILLNESS: The patient is a 63-year-old man, who is well known to our service. He has a history of left bundle-branch block, pacemaker placement. 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 Paroxysmal atrial fibrillation, chronic systolic heart failure, EF 45%. He frequently presents to the hospital with complaints of chest pain. He requires high doses of opioids for control, which has been a long cardiac workup done for origins of his chest pain, which has been largely unrevealing. 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 He once again presents with the same chest pain he describes as substernal, sharp, 10/10 in severity with no associated alleviating or exacerbating factors. Of note, however, at this time, the patient was noted to be a little hypotensive and had to be started on Levophed and transferred to the ICU. Cardiac enzymes negative x3. REVIEW OF SYSTEMS: As above. Otherwise, negative. FAMILY HISTORY: Noncontributory. SOCIAL HISTORY: The patient is a previous smoker and previous drinker. Denies any drug use. OUTPATIENT MEDICATIONS: Reviewed. ALLERGIES: NO KNOWN DRUG ALLERGIES. OBJECTIVE: VITAL SIGNS: Temperature afebrile, pulse 73, respiratory rate 20, blood pressure 121/86, and saturating 100% on 2 L nasal cannula. GENERAL: Obese white man, in no acute distress. CARDIOVASCULAR: Regular rate and rhythm. No murmurs, rubs, or gallops. LUNGS: Clear to auscultation anteriorly. Decreased breath sounds at the bases. ABDOMEN: Obese, soft, nontender, and nondistended. NEUROLOGIC AND PSYCHIATRIC: Alert and oriented to person, place, and time. Normal affect. INPATIENT MEDICATIONS: Reviewed. LABORATORY DATA: Reviewed. Troponins negative x3. Hemoglobin is 9.3 on presentation. BNP of 144. IMAGING DATA: Reviewed. TELEMETRY DATA: Reviewed, shows paced rhythm. ASSESSMENT: 1. Chest pain. 2. 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 3. History of atrial fibrillation. 4. Status post pacemaker placement. 5. Chronic systolic heart failure, ejection fraction 45%. PLAN: The patient has been ruled out for acute NV with serial troponins. No further cardiac workup is required for his chest pain at this time. CT scan for possible pulmonary embolus is pending. Hold antihypertensives given low blood pressure at this time. Thank you for this consult. We will continue to follow. MD GUIDO Argueta/BERNABE /[id number]
--- NOTE | 2018-12-08 01:57 | Consultation ---
DATE OF CONSULTATION: Pulmonary Consultation Patient of Dr. Marin, Dr. Perla, Dr. Navi Bailon. HISTORY OF PRESENT ILLNESS: A charming, but unfortunate 63-year-old gentleman with a history of coronary artery disease and coronary stent along with coronary artery anatomy, peptic gastric ulcer disease, admitted with chest pain on and off for approximately 5 days, squeezing in nature. He has a history of stroke with left-sided weakness. Lives in the [facility] with a roommate. He has a history of esophageal varices, history of remote lung decortication, history of congestive heart failure. Ejection fraction when last checked was 45%. History of pacemaker implantation depression. Drinks occasional beer. Smokes daily despite the admonitions of his physicians. He has had gastric ulcers in the past. He is currently on pressor support. MEDICATIONS: Include: 1. Tylenol 3. 2. Warfarin. 3. Aspirin. 4. Symbicort. 5. Coreg. 6. Lisinopril. 7. Lasix. 8. Metoprolol. 9. Ativan. 10. Montelukast. 11. Nitroglycerin. He has had coronary stent placement, decortication. PHYSICAL EXAMINATION: GENERAL: This is a well-developed bearded white male, in no acute distress. VITAL SIGNS: Temperature 98.3, pulse 75, respirations 21, blood pressure 125/70, on pressors. HEENT: Head, normocephalic, atraumatic. Eyes extraocular movements intact. LUNGS: Bilateral rales, left greater than right. HEART: Regular rhythm. ABDOMEN: Nontender. EXTREMITIES: Trace edema. Moderate left-sided weakness. IMPRESSIONS: 1. Very severe chronic obstructive pulmonary disease. 2. Pneumonia. 3. Congestive heart failure. 4. Depression. 5. Coronary artery disease, old stroke. The patient requests full measures at this time. PLAN: Bronchodilators. CT of the chest, antibiotics. Hold antihypertensive medications. Case discussed with Dr. Bailon. Thank you for this kind referral. MD THELMA Gonzalez/MODL /[id number]
[2018-12-08 05:11] LABS: BASOPHILS % 0.1 % (0.0-1.0); HEMATOCRIT 26.3 % (38.2-49.6); HEMOGLOBIN 7.6 g/dL (14.0-18.0); LYMPHOCYTES # (AUTO) 0.8 (1.0-3.2); LYMPHOCYTES % 7.6 % (18.0-39.1); MEAN CORPUSCULAR HEMOGLOBIN 23.2 pg (28-32); MEAN CORPUSCULAR HGB CONC 28.9 g/dL (31-35); MEAN CORPUSCULAR VOLUME 80.4 fL (81-99); MONOCYTES # (AUTO) 0.2 (0.2-0.8); MONOCYTES % 2.4 % (4.4-11.3); NEUTROPHILS % 89.3 % (38.7-80.0); PLATELET COUNT 331 x10e3/uL (140-360); RED BLOOD COUNT 3.27 x10e6/uL (4.3-5.7); RED CELL DISTRIBUTION WIDTH 17.4 % (11.7-14.4)
[2018-12-08] MEDS: MORPHINE SULFATE 2 MG/ML SYR 1ML IV PRN ×4 (05:11→19:47)
[2018-12-08 05:19] LABS: INR 1.01; PROTHROMBIN TIME 13.8 seconds (11.9-14.5)
[2018-12-08 05:26] LABS: BLOOD UREA NITROGEN 11 mg/dL (7-26); BUN/CREATININE RATIO 17 (6-25); CALCIUM 8.6 mg/dL (8.4-10.2); CARBON DIOXIDE 26 mmol/L (22-29); CHLORIDE 107 mmol/L (98-107); CREATININE, SERUM 0.64 mg/dL (0.72-1.25); EST GLOMERULAR FILTRATION RATE > 60 ML/MIN (60-); GLUCOSE 159 mg/dL (74-118); SODIUM 142 mmol/L (136-145)
[2018-12-08 05:35] LABS: B-TYPE NATRIURETIC PEPTIDE2 375.4 pg/mL (0-100)
[2018-12-08 05:48] LABS: FREE T4 (FREE THYROXINE) 0.74 ng/dL (0.8-1.8); THYROID STIMULATING HORMONE 0.444 uIU/mL (0.350-4.940)
[2018-12-08 05:57] LABS: FOLATE 4.2 ng/mL (7.0-15.4)
[2018-12-08 06:06] LABS: FERRITIN 62.12 ng/mL (21.81-274.66)
[2018-12-08] MEDS: GUAIFENESIN 200 MG/10 ML UDC PO SCH ×3 (06:53→22:00)
[2018-12-08] MEDS ORDERED: PANTOPRAZOLE SODIUM 40 MG SUSPDR.PKT PO SCH (07:30)
[2018-12-08] MEDS: ALBUTEROL/IPRATROPIUM 3 ML NEB INH SCH ×4 (07:45→19:15)
[2018-12-08 08:02] LABS: ANISOCYTOSIS MODERATE; HYPOCHROMASIA MODERATE; PLATELET ESTIMATE ADEQUATE; PLATELET MORPHOLOGY COMMENT NORMAL; POIKILOCYTOSIS SLIGHT
[2018-12-08 08:03] LABS: TARGET CELLS FEW
[2018-12-08] MEDS: AZITHROMYCIN 500MG/NS 250 ML 250 ML IV SCH (09:01)
[2018-12-08] MEDS: CITALOPRAM HYDROBROMIDE 20 MG TAB PO SCH (09:01)
[2018-12-08] MEDS: DULOXETINE HCL 20 MG DELAYED RELEASE PO SCH (09:01)
[2018-12-08] MEDS: PANTOPRAZOLE SOD 40 MG TABEC PO SCH (09:01)
[2018-12-08] MEDS: ASPIRIN 81 MG CHEW TAB PO SCH (09:01)
[2018-12-08] MEDS: LEVETIRACETAM 500 MG TAB PO SCH ×2 (09:02→16:36)
[2018-12-08] MEDS: FOLIC ACID 1 MG TAB PO SCH (09:02)
[2018-12-08] MEDS: NITROGLYCERIN 0.4 MG SUBL SL PRN (09:15)
[2018-12-08] MEDS: IRON SUCROSE 100 MG in SODIUM CHLORIDE 0.9% 100 ML 100 ML IV SCH (09:29)
[2018-12-08] MEDS: HYDROCODONE/APAP 5MG-325MG TAB PO PRN ×2 (11:39→23:00)
--- NOTE | 2018-12-08 16:26 | Diagnostic Imaging Report ---
EXAM: CT Chest WITHOUT intravenous contrast 12/08/2018 5:51 PM INDICATION: Shortness of breath COMPARISON: Chest radiograph of 12/07/2018, chest CT of 09/26/2018, chest CT of 06/03/2018 TECHNIQUE: Chest was scanned utilizing a multidetector helical scanner from the lung apex through the level of the adrenal glands without administration of IV contrast. Coronal and sagittal reformations were obtained. Routine protocol was performed. IV CONTRAST: None RADIATION DOSE: Total DLP: 529.2 mGy*cm. Dose modulation, iterative reconstruction, and/or weight based adjustment of the mA/kV was utilized to reduce the radiation dose to as low as reasonably achievable. COMPLICATIONS: None FINDINGS: LINES/ TUBES: None. LUNGS AND AIRWAYS: There is a small amount of dependent mucus in the right mainstem bronchus. There is bilateral upper lobe predominant centrilobular emphysema and biapical subpleural blebbing. Biapical pleural parenchymal thickening/scarring. Patchy consolidative opacities at the dependent right upper lobe are new from 09/26/2018 and may represent acute aspiration or pneumonia. There are unchanged predominantly peripheral increased reticular opacities with associated subpleural cystic change and mild right lower lobe bronchiectasis. Unchanged right lower lobe calcified granuloma. PLEURA: Trace left pleural effusion. No pneumothorax. HEART AND MEDIASTINUM: The thyroid gland appears unremarkable. No supraclavicular lymphadenopathy. Several prominent mediastinal lymph nodes appear essentially unchanged, for example a 18 x 12 mm pretracheal lymph node and a 19 x 12 mm right suprahilar lymph node. No hilar lymphadenopathy. No axillary, subpectoral, or internal mammary lymphadenopathy. Mild cardiomegaly. Left chest pacer with leads in the right atrium and right ventricle. No pericardial effusion. UPPER ABDOMEN: Limited non-contrast views of the upper abdomen show no abnormality within the visualized liver, spleen, right adrenal or superior most right kidney. The left adrenal and left kidney and pancreas are not visualized. BONES: The visualized bony thorax is within normal limits. SOFT TISSUES: Unremarkable. IMPRESSION: New patchy consolidative opacities at the dependent right upper lobe may represent aspiration and/or pneumonia. Small amount of dependent mucus in the right mainstem bronchus is supportive of aspiration. Unchanged background of nonspecific pulmonary fibrosis, centrilobular emphysema, and biapical subpleural blebbing. Signed by: Brayden Fragoso MD on 12/08/2018 4:23 PM
[2018-12-08] MEDS: WARFARIN SOD 3 MG TAB PO SCH (16:36)
[2018-12-08] MEDS: NOREPINEPHRINE 8 MG/D5W 250 ML 250 ML IV SCH (18:00)
[2018-12-08] MEDS: ATORVASTATIN 20 MG TAB PO SCH (22:00)
[2018-12-08] MEDS: MIRTAZAPINE 15 MG TAB PO SCH (22:00)
[2018-12-08] MEDS: LORATADINE 10 MG TAB PO SCH (22:00)
[2018-12-08] MEDS: QUETIAPINE FUMARATE 25 MG TAB PO SCH (22:00)
[2018-12-08] MEDS: CLOPIDOGREL BISULFATE 75 MG TAB PO SCH (22:00)
[2018-12-09] VITALS (10 sets, daily range): BP systolic 99–135; BP diastolic 58–93
[2018-12-09] MEDS: ALBUTEROL/IPRATROPIUM 3 ML NEB INH SCH ×6 (02:35→23:00)
[2018-12-09] MEDS: CEFEPIME 2 GM/NS 0.9% 100 ML 100 ML IV SCH ×2 (02:51→13:19)
[2018-12-09] MEDS: MORPHINE SULFATE 2 MG/ML SYR 1ML IV PRN ×5 (02:51→22:55)
[2018-12-09 05:45] LABS: HEMATOCRIT 27.8 % (38.2-49.6); LYMPHOCYTES # (AUTO) 1.4 (1.0-3.2); LYMPHOCYTES % 16.9 % (18.0-39.1); MEAN CORPUSCULAR HEMOGLOBIN 23.7 pg (28-32); MEAN CORPUSCULAR HGB CONC 28.8 g/dL (31-35); MEAN CORPUSCULAR VOLUME 82.2 fL (81-99); MONOCYTES # (AUTO) 0.6 (0.2-0.8); NEUTROPHILS # (AUTO) 6.4 (2.1-6.9); NEUTROPHILS % 75.6 % (38.7-80.0); PLATELET COUNT 281 x10e3/uL (140-360); RED BLOOD COUNT 3.38 x10e6/uL (4.3-5.7); RED CELL DISTRIBUTION WIDTH 17.4 % (11.7-14.4)
[2018-12-09 05:58] LABS: INR 0.92; PROTHROMBIN TIME 12.9 seconds (11.9-14.5)
[2018-12-09 06:01] LABS: ANION GAP 10.7 mmol/L (8-16); BLOOD UREA NITROGEN 10 mg/dL (7-26); BUN/CREATININE RATIO 16 (6-25); CALCIUM 8.7 mg/dL (8.4-10.2); CARBON DIOXIDE 30 mmol/L (22-29); CHLORIDE 106 mmol/L (98-107); CREATININE, SERUM 0.64 mg/dL (0.72-1.25); EST GLOMERULAR FILTRATION RATE > 60 ML/MIN (60-); GLUCOSE 105 mg/dL (74-118); MAGNESIUM 1.9 MG/DL (1.3-2.1); POTASSIUM 3.7 mmol/L (3.5-5.1); SODIUM 143 mmol/L (136-145)
[2018-12-09] MEDS: GUAIFENESIN 200 MG/10 ML UDC PO SCH (06:40)
[2018-12-09 07:07] LABS: LYMPHOCYTES % (MANUAL) 22 % (19-48); MONOCYTES % (MANUAL) 15 % (3.4-9.0); NEUTROPHILS % (MANUAL) 59 % (40-74)
[2018-12-09 07:09] LABS: ANISOCYTOSIS S; HYPOCHROMASIA S; PLATELET ESTIMATE ADEQUATE; PLATELET MORPHOLOGY COMMENT NORMAL; POIKILOCYTOSIS S; RBC MORPHOLOGY COMMENT ABNORMAL
[2018-12-09] MEDS ORDERED: METHYLPREDNISOLONE SOD SUCC 40 MG/ML VIAL 1ML IV SCH (07:30)
[2018-12-09] MEDS: PANTOPRAZOLE SOD 40 MG TABEC PO SCH (08:07)
[2018-12-09] MEDS: ASPIRIN 81 MG CHEW TAB PO SCH (08:07)
[2018-12-09] MEDS: AZITHROMYCIN 500MG/NS 250 ML 250 ML IV SCH (08:07)
[2018-12-09] MEDS: FOLIC ACID 1 MG TAB PO SCH (08:07)
[2018-12-09] MEDS: LEVETIRACETAM 500 MG TAB PO SCH ×2 (08:07→17:14)
[2018-12-09] MEDS: FUROSEMIDE INJ 10 MG/ML 4 ML VIAL IV SCH ×2 (08:07→21:02)
[2018-12-09] MEDS: DULOXETINE HCL 20 MG DELAYED RELEASE PO SCH (08:07)
[2018-12-09] MEDS: CITALOPRAM HYDROBROMIDE 20 MG TAB PO SCH (08:07)
[2018-12-09] MEDS: IRON SUCROSE 100 MG in SODIUM CHLORIDE 0.9% 100 ML 100 ML IV SCH (10:00)
[2018-12-09] MEDS: HYDROCODONE/APAP 5MG-325MG TAB PO PRN ×2 (12:30→17:39)
[2018-12-09] MEDS: GUAIFENESIN 600 MG TAB PO SCH ×2 (12:41→17:14)
--- NOTE | 2018-12-09 14:50 | NUR ---
PT TRANSFERRED TO ROOM 204 RN TO RESUME CARE
--- NOTE | 2018-12-09 15:15 | Progress Note ---
DATE: 12/09/2018 SUBJECTIVE: No major events overnight. OBJECTIVE: VITAL SIGNS: Temperature afebrile, pulse 73, respiratory rate 20, blood pressure 104/73, saturating 100% on 2 L nasal cannula. GENERAL: Obese, white man, in no acute distress. CARDIOVASCULAR: Regular rate and rhythm. No murmurs, rubs, or gallops. LUNGS: Clear to auscultation bilaterally. ABDOMEN: Soft, nontender, nondistended. Obese. NEURO AND PSYCH: Alert and oriented to person, place, and time. Normal affect. INPATIENT MEDICATIONS: Reviewed. LABORATORY DATA: Reviewed. IMAGING DATA: Reviewed. TELEMETRY DATA: Reviewed shows paced rhythm. ASSESSMENT AND PLAN: 1. Chest pain. 2. 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 3. History of atrial fibrillation. 4. Status post pacemaker placement. 5. Chronic systolic heart failure, ejection fraction 45%. PLAN: Ruled out for acute HI. The patient has had extensive cardiac workup recently. His chest pain is noncardiac and chronic at this point. The patient is okay to be transferred to the ICU from a cardiology standpoint. Now his blood pressure is improved. Thank you for this consult. We will continue to follow. MD GUIDO Argueta/BERNABE /[id number]
[2018-12-09] MEDS: WARFARIN SOD 3 MG TAB PO SCH (17:14)
--- NOTE | 2018-12-09 19:35 | NUR ---
Received patient from day nurse, patient is stable, assessed, safety and fall precautions maintained as per hospital protocol: bed in lowest position and locked, needed items beside bed and patient educated about the use of the call light. patient made aware of need for stool sample and assures me that any time he feels like going he will let me know.
[2018-12-09] MEDS: QUETIAPINE FUMARATE 25 MG TAB PO SCH (21:02)
[2018-12-09] MEDS: ATORVASTATIN 20 MG TAB PO SCH (21:02)
[2018-12-09] MEDS: CLOPIDOGREL BISULFATE 75 MG TAB PO SCH (21:02)
[2018-12-09] MEDS: LORATADINE 10 MG TAB PO SCH (21:03)
[2018-12-09] MEDS: MIRTAZAPINE 15 MG TAB PO SCH (21:06)
[2018-12-10] VITALS (7 sets, daily range): BP systolic 96–157; BP diastolic 55–97
[2018-12-10] MEDS: CEFEPIME 2 GM/NS 0.9% 100 ML 100 ML IV SCH ×2 (02:05→12:30)
[2018-12-10] MEDS: GUAIFENESIN 600 MG TAB PO SCH ×4 (02:05→16:25)
[2018-12-10] MEDS: MORPHINE SULFATE 2 MG/ML SYR 1ML IV PRN ×6 (03:52→20:44)
[2018-12-10 04:15] LABS: HEMATOCRIT 27.1 % (38.2-49.6); HEMOGLOBIN 7.8 g/dL (14.0-18.0); LYMPHOCYTES % 11.8 % (18.0-39.1); MEAN CORPUSCULAR HEMOGLOBIN 23.5 pg (28-32); MEAN CORPUSCULAR HGB CONC 28.8 g/dL (31-35); MEAN CORPUSCULAR VOLUME 81.6 fL (81-99); MONOCYTES # (AUTO) 0.7 (0.2-0.8); MONOCYTES % 8.3 % (4.4-11.3); NEUTROPHILS % 79.2 % (38.7-80.0); PLATELET COUNT 271 x10e3/uL (140-360); RED BLOOD COUNT 3.32 x10e6/uL (4.3-5.7); RED CELL DISTRIBUTION WIDTH 17.3 % (11.7-14.4)
[2018-12-10] MEDS ORDERED: BISACODYL 5 MG TAB EC PO PRN (04:15)
[2018-12-10 04:34] LABS: BLOOD UREA NITROGEN 10 mg/dL (7-26); BUN/CREATININE RATIO 16 (6-25); CALCIUM 8.6 mg/dL (8.4-10.2); CARBON DIOXIDE 34 mmol/L (22-29); CHLORIDE 99 mmol/L (98-107); CREATININE, SERUM 0.63 mg/dL (0.72-1.25); EST GLOMERULAR FILTRATION RATE > 60 ML/MIN (60-); GLUCOSE 124 mg/dL (74-118); SODIUM 140 mmol/L (136-145)
[2018-12-10] MEDS: ALBUTEROL/IPRATROPIUM 3 ML NEB INH SCH ×6 (04:48→23:00)
--- NOTE | 2018-12-10 07:04 | NUR ---
Endorsed to next shift for continuity of care.
--- NOTE | 2018-12-10 07:06 | NUR ---
Received bed side report from night RN. Pt is in stable condition. will continue to monitor.
[2018-12-10 07:19] LABS: ANISOCYTOSIS MODERATE; HYPOCHROMASIA MODERATE; MICROCYTOSIS MODERATE; OVALOCYTES FEW; PLATELET ESTIMATE ADEQUATE; PLATELET MORPHOLOGY COMMENT NORMAL; RBC MORPHOLOGY COMMENT ABNORMAL
[2018-12-10] MEDS: DOCUSATE SODIUM 100 MG CAP PO SCH ×2 (08:52→16:25)
[2018-12-10] MEDS: LEVETIRACETAM 500 MG TAB PO SCH ×2 (08:52→16:25)
[2018-12-10] MEDS: FUROSEMIDE INJ 10 MG/ML 4 ML VIAL IV SCH ×2 (08:52→21:00)
[2018-12-10] MEDS: DULOXETINE HCL 20 MG DELAYED RELEASE PO SCH (08:52)
[2018-12-10] MEDS: FOLIC ACID 1 MG TAB PO SCH (08:52)
[2018-12-10] MEDS: CITALOPRAM HYDROBROMIDE 20 MG TAB PO SCH (08:52)
[2018-12-10] MEDS: ASPIRIN 81 MG CHEW TAB PO SCH (08:52)
[2018-12-10] MEDS: PANTOPRAZOLE SOD 40 MG TABEC PO SCH (08:52)
[2018-12-10] MEDS: MIDODRINE 2.5 MG TAB PO SCH ×3 (08:52→16:25)
[2018-12-10 10:52] LABS: INR 1.07; PROTHROMBIN TIME 14.4 seconds (11.9-14.5)
[2018-12-10] MEDS: IRON SUCROSE 100 MG in SODIUM CHLORIDE 0.9% 100 ML 100 ML IV SCH (14:30)
[2018-12-10] MEDS: WARFARIN SOD 3 MG TAB PO SCH (16:25)
--- NOTE | 2018-12-10 19:10 | NUR ---
Patient visited in room during nursing rounds. Patient alert and oriented x3. Pt c/o frequent chest pain (MD aware) and get pain medication prn. Pt ambulatory using cane in room prn. On 2L NC. Call madsen within reach. Will monitor closely.
--- NOTE | 2018-12-10 19:18 | NUR ---
report given to oncoming nurse. pt is stable.
--- NOTE | 2018-12-10 20:40 | NUR ---
Dressing change done on central line (right IJ).
[2018-12-10] MEDS: CLOPIDOGREL BISULFATE 75 MG TAB PO SCH (21:00)
[2018-12-10] MEDS: QUETIAPINE FUMARATE 25 MG TAB PO SCH (21:00)
[2018-12-10] MEDS: MIRTAZAPINE 15 MG TAB PO SCH (21:00)
[2018-12-10] MEDS: LORATADINE 10 MG TAB PO SCH (21:00)
[2018-12-10] MEDS: ATORVASTATIN 20 MG TAB PO SCH (21:00)
[2018-12-11] VITALS (8 sets, daily range): BP systolic 89–153; BP diastolic 65–95
[2018-12-11] MEDS: ALBUTEROL/IPRATROPIUM 3 ML NEB INH SCH ×6 (00:05→21:00)
[2018-12-11] MEDS ORDERED: SODIUM CHLORIDE 0.9% 250ML 250 ML ONE (01:49)
[2018-12-11] MEDS: CEFEPIME 2 GM/NS 0.9% 100 ML 100 ML IV SCH ×2 (01:54→13:45)
[2018-12-11 03:39] LABS: BASOPHILS % 0.1 % (0.0-1.0); HEMATOCRIT 27.2 % (38.2-49.6); HEMOGLOBIN 7.8 g/dL (14.0-18.0); LYMPHOCYTES # (AUTO) 1.6 (1.0-3.2); LYMPHOCYTES % 15.6 % (18.0-39.1); MEAN CORPUSCULAR HEMOGLOBIN 23.4 pg (28-32); MEAN CORPUSCULAR HGB CONC 28.7 g/dL (31-35); MEAN CORPUSCULAR VOLUME 81.4 fL (81-99); MONOCYTES # (AUTO) 0.8 (0.2-0.8); MONOCYTES % 8.1 % (4.4-11.3); NEUTROPHILS # (AUTO) 7.5 (2.1-6.9); NEUTROPHILS % 75.5 % (38.7-80.0); PLATELET COUNT 283 x10e3/uL (140-360); RED BLOOD COUNT 3.34 x10e6/uL (4.3-5.7); RED CELL DISTRIBUTION WIDTH 17.6 % (11.7-14.4)
[2018-12-11 04:00] LABS: ANION GAP 7.9 mmol/L (8-16); BLOOD UREA NITROGEN 12 mg/dL (7-26); BUN/CREATININE RATIO 21 (6-25); CALCIUM 8.6 mg/dL (8.4-10.2); CHLORIDE 96 mmol/L (98-107); CREATININE, SERUM 0.58 mg/dL (0.72-1.25); EST GLOMERULAR FILTRATION RATE > 60 ML/MIN (60-); GLUCOSE 97 mg/dL (74-118); POTASSIUM 3.9 mmol/L (3.5-5.1); SODIUM 143 mmol/L (136-145)
[2018-12-11 04:04] LABS: CARBON DIOXIDE 43 mmol/L (22-29)
--- NOTE | 2018-12-11 04:10 | NUR ---
Carlnie Zamudio making rounds and saw pt this morning. She saw lab results this morning. CO2 level of 43. Carline suggested to nurse (Adriel) to call Dr. Montez to inform about CO2 level.
[2018-12-11] MEDS: MORPHINE SULFATE 2 MG/ML SYR 1ML IV PRN ×4 (04:50→23:13)
--- NOTE | 2018-12-11 05:08 | NUR ---
Spoke with Dr. Montez and informed him of CO2 level of 43. MD aware and no new orders given.
[2018-12-11] MEDS: GUAIFENESIN 600 MG TAB PO SCH ×5 (06:30→23:13)
[2018-12-11] MEDS: PANTOPRAZOLE SOD 40 MG TABEC PO SCH (06:40)
--- NOTE | 2018-12-11 07:00 | NUR ---
RCD PT AT BED PT IS ALERT AND ORIENTED PT RESTING ON BED BED LOW AND LOCKED CALL LIGHT IN REACH
[2018-12-11] MEDS: HYDROCODONE/APAP 5MG-325MG TAB PO PRN ×2 (07:30→20:34)
[2018-12-11 07:45] LABS: HYPOCHROMASIA MODERATE; LYMPHOCYTES % (MANUAL) 23 % (19-48); MONOCYTES % (MANUAL) 8 % (3.4-9.0); NEUTROPHILS % (MANUAL) 69 % (40-74)
[2018-12-11 07:46] LABS: ANISOCYTOSIS MODERATE; OVALOCYTES FEW; POIKILOCYTOSIS MODE
[2018-12-11 07:47] LABS: ELLIPTOCYTE, RBC SLIGHT; PLATELET ESTIMATE ADEQUATE; PLATELET MORPHOLOGY COMMENT NORMAL; RBC MORPHOLOGY COMMENT ABNORMAL; TEAR DROP CELLS FEW
[2018-12-11] MEDS: MIDODRINE 2.5 MG TAB PO SCH ×3 (08:00→16:00)
[2018-12-11] MEDS: DULOXETINE HCL 20 MG DELAYED RELEASE PO SCH (09:00)
[2018-12-11] MEDS: FUROSEMIDE INJ 10 MG/ML 4 ML VIAL IV SCH (09:00)
[2018-12-11] MEDS: CITALOPRAM HYDROBROMIDE 20 MG TAB PO SCH (09:00)
[2018-12-11] MEDS ORDERED: PREDNISONE 20 MG TAB PO SCH (09:00)
[2018-12-11] MEDS: ASPIRIN 81 MG CHEW TAB PO SCH (09:00)
[2018-12-11] MEDS: FOLIC ACID 1 MG TAB PO SCH (09:00)
[2018-12-11] MEDS: DOCUSATE SODIUM 100 MG CAP PO SCH ×2 (09:00→17:00)
[2018-12-11] MEDS: LEVETIRACETAM 500 MG TAB PO SCH ×2 (09:00→17:00)
[2018-12-11] MEDS ORDERED: ACETAZOLAMIDE 250 MG TAB PO PRN (10:15)
[2018-12-11 11:10] LABS: INR 1.52; PROTHROMBIN TIME 18.9 seconds (11.9-14.5)
--- NOTE | 2018-12-11 12:29 | Diagnostic Imaging Report ---
EXAMINATION: CHEST SINGLE (PORTABLE) INDICATION: Shortness of breath COMPARISON: Chest CT of 12/08/2018, chest radiograph of 12/07/2018 FINDINGS: LINES/TUBES:Left chest pacemaker with leads in unchanged position. EKG leads overlie the chest. Right IJ nontunneled central venous catheter terminates in the superior vena cava. LUNGS:The lungs are well-inflated. There has been interval decrease in patchy airspace opacity at the right upper lung. No new focal consolidation or pulmonary edema. Unchanged right apical pleural parenchymal thickening/scarring PLEURA:Trace right pleural effusion. No pneumothorax. MEDIASTINUM:Cardiomediastinal silhouette is stably enlarged. BONES/SOFT TISSUES:No acute osseous injury. ABDOMEN:No free air under the diaphragm. IMPRESSION: Interval decrease in right upper lung patchy airspace opacity compatible with resolving aspiration or pneumonia. No new consolidation or pulmonary edema. Stable cardiomegaly. Signed by: Brayden Fragoso MD on 12/11/2018 12:26 PM
[2018-12-11] MEDS: WARFARIN SOD 3 MG TAB PO SCH (17:00)
--- NOTE | 2018-12-11 17:23 | NUR ---
Nutrition LOS Note RD Recommendation for Physician: Continue diet as ordered Plan of Care: Patient has been screened and assessed for nutrition risk. At this time, the patient does not pose any nutrition risk. No further nutrition intervention is warranted at this time. Will re-evaluate if consulted by medical staff. Nutrition reason for involvement: LOS Primary Diagnose(s): COPD , chest pain PMH: coronary artery disease and coronary stent along with coronary artery anatomy, peptic gastric ulcer disease, CHF Ht:72 in Wt: 220lb BMI:29.8kg/m2 IBW:178lb +/-10% RD Assessment: (12/11/2018) 63yo M, who was admitted for chest pain. Pt was well known to me from his previous admissions. Visited pt in the room. Pt reported good appetite with 100 % recorded PO intake. No complains or nausea or vomiting. Pt denied any chewing or swallowing difficulty. Pt has no nutrition related question at this time. Please consult if needed. Current Diet: Cardiac Malnutrition Evaluation (12/11/2018) The patient does not meet criteria for a specified degree of malnutrition at this time. Will re-evaluate at follow-up as appropriate. Diet Education Needs Assessment: Diet education not indicated. Nutrition Care Level: Low Signed: Winnie Wisdom, MS, RD, LD
--- NOTE | 2018-12-11 18:51 | NUR ---
PT RESTING ON BED BED SIDE REPORT GIVEN TO ONCOMING NURSE
[2018-12-11] MEDS: MIRTAZAPINE 15 MG TAB PO SCH (20:33)
[2018-12-11] MEDS: ATORVASTATIN 20 MG TAB PO SCH (20:33)
[2018-12-11] MEDS: CLOPIDOGREL BISULFATE 75 MG TAB PO SCH (20:33)
[2018-12-11] MEDS: QUETIAPINE FUMARATE 25 MG TAB PO SCH (20:33)
[2018-12-11] MEDS: LORATADINE 10 MG TAB PO SCH (20:33)
[2018-12-12 00:15] VITALS: BP 112/62
[2018-12-12] MEDS: CEFEPIME 2 GM/NS 0.9% 100 ML 100 ML IV SCH ×2 (02:45→14:08)
[2018-12-12 03:10] LABS: BASOPHILS % 0.1 % (0.0-1.0); EOSINOPHILS # (AUTO) 0.1 (0.0-0.4); EOSINOPHILS % 0.7 % (0.0-6.0); HEMOGLOBIN 7.7 g/dL (14.0-18.0); MEAN CORPUSCULAR HEMOGLOBIN 23.4 pg (28-32); MEAN CORPUSCULAR HGB CONC 28.5 g/dL (31-35); MEAN CORPUSCULAR VOLUME 82.1 fL (81-99); MONOCYTES # (AUTO) 0.9 (0.2-0.8); MONOCYTES % 9.5 % (4.4-11.3); NEUTROPHILS % 66.8 % (38.7-80.0); PLATELET COUNT 271 x10e3/uL (140-360); RED BLOOD COUNT 3.29 x10e6/uL (4.3-5.7); RED CELL DISTRIBUTION WIDTH 18.3 % (11.7-14.4)
[2018-12-12 03:23] LABS: ALANINE AMINOTRANSFERASE 13 IU/L (0-55); ALBUMIN 2.8 g/dL (3.5-5.0); ALKALINE PHOSPHATASE 59 IU/L (40-150); ANION GAP 11.7 mmol/L (8-16); BLOOD UREA NITROGEN 12 mg/dL (7-26); BUN/CREATININE RATIO 20 (6-25); CALCIUM 8.6 mg/dL (8.4-10.2); CARBON DIOXIDE 39 mmol/L (22-29); CHLORIDE 98 mmol/L (98-107); CREATININE, SERUM 0.61 mg/dL (0.72-1.25); EST GLOMERULAR FILTRATION RATE > 60 ML/MIN (60-); GLUCOSE 103 mg/dL (74-118); POTASSIUM 3.7 mmol/L (3.5-5.1); SODIUM 145 mmol/L (136-145)
[2018-12-12] MEDS: ALBUTEROL/IPRATROPIUM 3 ML NEB INH SCH ×4 (03:55→15:25)
[2018-12-12] MEDS ORDERED: FUROSEMIDE40 MG PO (05:12)
[2018-12-12] MEDS ORDERED: FOLIC ACID1 MG PO (05:12)
[2018-12-12] MEDS ORDERED: MIDODRINE HCL2.5 MG PO (05:12)
[2018-12-12] MEDS ORDERED: PREDNISONE5 MG PO (05:14)
[2018-12-12] MEDS ORDERED: CEFDINIR300 MG PO (05:16)
[2018-12-12] MEDS: GUAIFENESIN 600 MG TAB PO SCH ×3 (05:20→18:00)
[2018-12-12] MEDS: MORPHINE SULFATE 2 MG/ML SYR 1ML IV PRN ×2 (05:20→11:25)
[2018-12-12 05:38] VITALS: BP 122/72
--- NOTE | 2018-12-12 07:00 | NUR ---
BEDSIDE SHIFT CHANGE REPORT FROM SAE RAMOS. PT DENIES NEEDS AT THIS TIME.
[2018-12-12 08:43] VITALS: BP 115/81
[2018-12-12] MEDS: PANTOPRAZOLE SOD 40 MG TABEC PO SCH (08:43)
[2018-12-12] MEDS: MIDODRINE 2.5 MG TAB PO SCH ×3 (08:44→16:30)
[2018-12-12] MEDS: ASPIRIN 81 MG CHEW TAB PO SCH (08:44)
[2018-12-12] MEDS: FOLIC ACID 1 MG TAB PO SCH (08:45)
[2018-12-12] MEDS: LEVETIRACETAM 500 MG TAB PO SCH ×2 (08:45→17:09)
[2018-12-12] MEDS: DULOXETINE HCL 20 MG DELAYED RELEASE PO SCH (08:45)
[2018-12-12] MEDS: CITALOPRAM HYDROBROMIDE 20 MG TAB PO SCH (08:45)
[2018-12-12] MEDS: DOCUSATE SODIUM 100 MG CAP PO SCH ×2 (08:45→17:09)
[2018-12-12 09:00] VITALS: BP 115/81
[2018-12-12] MEDS ORDERED: FUROSEMIDE INJ 10 MG/ML 4 ML VIAL IV SCH (09:00)
[2018-12-12] MEDS ORDERED: PREDNISONE 5 MG TAB PO SCH (09:00)
[2018-12-12 09:32] LABS: INR 1.75; PROTHROMBIN TIME 21.1 seconds (11.9-14.5)
--- NOTE | 2018-12-12 10:29 | NUR ---
Met with patient and gave him handouts for Ride assistance. He stated he did not need it because he lives in assisted living and they provide transportation. He stated he does not have a PCP, and Mike RAMOS at bedside stated he would provide follow up MD info on discharge papers.
[2018-12-12] MEDS ORDERED: FUROSEMIDE INJ 10 MG/ML 2 ML VIAL IV NR (11:00)
--- NOTE | 2018-12-12 11:41 | Progress Note ---
DATE: Cardiology Progress Note SUBJECTIVE: The patient continues to experience some chest pain and also shortness of breath, especially with exertion. OBJECTIVE: VITAL SIGNS: Temperature 96.0, pulse 71, respiratory rate 17, blood pressure 115/81, and oxygen saturation 100% on 2 L nasal cannula. GENERAL: Alert and oriented x3. Resting comfortably in bed. Does not appear to be in any acute distress. NECK: Supple. No JVD noted. CARDIOVASCULAR: Regular rate and rhythm. LUNGS: Diminished breath sounds throughout. No wheezing, no rhonchi, or crackles. ABDOMEN: Soft and nontender. CARDIOVASCULAR MEDICATIONS: Midodrine 5 mg p.o. t.i.d., furosemide 40 mg IV daily, aspirin 81 mg p.o. daily, Plavix 75 mg p.o. at bedtime, atorvastatin 20 mg p.o. at bedtime, and warfarin 9 mg p.o. daily. LABORATORY DATA: WBC 9.01, hemoglobin 7.7, hematocrit 27.0, and platelets 271. Sodium 145, potassium 3.7, BUN 12, creatinine 0.61, and calcium 8.6. BNP 193.3. INR 1.75. Telemetry ventricularly paced rhythm. IMPRESSION: 1. Chest pain. 2. 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 3. History of atrial fibrillation. 4. Status post pacemaker. 5. Chronic systolic heart failure, ejection fraction of 45%. PLAN: Acute coronary syndrome has been ruled out. Chest pain is chronic and appears to be noncardiac in nature. Continue to monitor and continue respiratory care and support. Monitor blood pressure closely. Maintain on telemetry. Dictated by Brianna Roberts NP MD MARIYA MerazV/BERNABE /[id number]
[2018-12-12 13:06] VITALS: BP 113/75
--- NOTE | 2018-12-12 13:07 | Diagnostic Imaging Report ---
EXAMINATION: CHEST SINGLE (PORTABLE) INDICATION: ^SOB ^[id number] ^1212 COMPARISON: 12/11/2018 FINDINGS: AP view TUBES and LINES: Stable left chest wall cardiac device. Stable right IJ central line. LUNGS: Lungs are well inflated. Pulmonary vascular congestion on mild interstitial edema. PLEURA: No pneumothorax. Suspected small right pleural effusion. HEART AND MEDIASTINUM: The cardiomediastinal silhouette is unremarkable. BONES AND SOFT TISSUES: No acute osseous lesion. Soft tissues are unremarkable. UPPER ABDOMEN: No free air under the diaphragm. IMPRESSION: Pulmonary vascular congestion and mild interstitial edema. Suspected small right pleural effusion. Signed by: Dr. Oneil Ochoa MD on 12/12/2018 1:04 PM
--- NOTE | 2018-12-12 14:08 | NUR ---
DR. STACY SOLANO FOR PT TO DISCHARGE BACK TO [facility]. CALL PLACED TO DR. STEWART.
--- NOTE | 2018-12-12 14:45 | NUR ---
OK FROM DR. RECINOS VIEWPOINT FOR PT TO DISCHARGE BACK TO [facility].
[2018-12-12] MEDS: HYDROCODONE/APAP 5MG-325MG TAB PO PRN (17:10)
[2018-12-12] MEDS: WARFARIN SOD 3 MG TAB PO SCH (17:10)
[2018-12-12 17:25] VITALS: BP 108/74
--- NOTE | 2018-12-12 18:14 | Discharge Summary ---
ADMISSION DIAGNOSES: 1. Chest pain. 2. Acute exacerbation of chronic obstructive pulmonary disease. 3. Community-acquired pneumonia with septic shock. 4. Chronic systolic congestive heart failure. 5. History of cerebrovascular accident and myocardial infarction. 6. Hypertension. 7. Anxiety. 8. Depression. 9. Seizures. 10. Microcytic anemia. DISCHARGE DIAGNOSES: 1. Chest pain. 2. Acute exacerbation of chronic obstructive pulmonary disease. 3. Community-acquired pneumonia with septic shock. 4. Chronic systolic congestive heart failure. 5. History of cerebrovascular accident and myocardial infarction. 6. Hypertension. 7. Anxiety. 8. Depression. 9. Seizures. 10. Microcytic anemia. 11. Rule out myocardial infarction. HISTORY: The patient has a history of chronic systolic CHF, COPD, hypertension, CAD with stents, ID and CVA with left deficit, anxiety, depression, seizures. SURGICAL HISTORY: Cardiac stent x1, pacemaker placement. FAMILY HISTORY: Noncontributory. SOCIAL HISTORY: The patient admits to smoking one pack a day of cigarettes for 42 years and occasional alcohol use. HOSPITAL COURSE: A 63-year-old male complains of left-sided chest pain, described as squeezing, that radiates down his left arm. He had associated dizziness and diaphoresis. He denies cough. The symptoms began after eating lunch yesterday. Symptoms improved with medications and worsened with activity. On admission, troponins were negative x4. EKG showed V pacing. The patient was given an aspirin. Chest x-ray showed new patchy airspace opacity in the right upper lobe. The patient was initially in the ICU, but since ID was ruled out, he was moved. He was started on IV antibiotics on admission and he was also given a Levophed drip due to septic shock. His blood pressure medicines were held throughout hospitalization and he had to start using midodrine. His IV antibiotics of Zithromax and cefepime were changed at time of discharge to Omnicef as his Zithromax was completed. He was also given a new prescription for prednisone, midodrine t.i.d., and folic acid. The patient was instructed to closely follow up with Pulmonology and primary care, so that he could stop the frequent admissions. The patient understands discharge instructions and agrees to plan. He said that he was having trouble finding a ride to get to appointments, so Case Management was consulted, who gave the patient a lot of information on ride services. Vital signs stable, patient afebrile. He will be discharged to [facility]. Dictated by Carline Zamudio, COMMUNICATIONS CONSULTANT MD TARA Botello/BERNABE /[id number]
--- NOTE | 2018-12-12 18:25 | NUR ---
PT WHEELED TO TAXI BY THIS NURSE. PT TOLERATED TRANSFER WITH NO PROBLEMS. PT DENIES FURTHER NEEDS.
== END 2018-12-12 18:13 | disposition home or self-care (01) | DRG 871 ==
LOC: ER 12:08 → ERHOLD 18:46 → ICU 22:16 → MED/SURG2 12-09 14:52
PROVIDERS: ADMIT Internal Medicine; ATTEND Internal Medicine
PROC: 02HV33Z Insertion of Infusion Device into Superior Vena Cava, Percutaneous Approach (ICD-10-PCS; principal; 2018-12-06)
PROC: 3E043XZ Introduction of Vasopressor into Central Vein, Percutaneous Approach (ICD-10-PCS; 2018-12-06)
DX: A41.9 Sepsis, unspecified organism (principal); J18.9 Pneumonia, unspecified organism; R65.21 Severe sepsis with septic shock; J44.0 Chronic obstructive pulmonary disease with (acute) lower respiratory infection; J44.1 Chronic obstructive pulmonary disease with (acute) exacerbation; I50.22 Chronic systolic (congestive) heart failure; I69.354 Hemiplegia and hemiparesis following cerebral infarction affecting left non-dominant side; Q24.5 Malformation of coronary vessels; I11.0 Hypertensive heart disease with heart failure; I48.0 Paroxysmal atrial fibrillation; I44.7 Left bundle-branch block, unspecified; F41.9 Anxiety disorder, unspecified; F32.9 Major depressive disorder, single episode, unspecified; G40.909 Epilepsy, unspecified, not intractable, without status epilepticus; D50.9 Iron deficiency anemia, unspecified; I25.10 Atherosclerotic heart disease of native coronary artery without angina pectoris; F17.210 Nicotine dependence, cigarettes, uncomplicated; I25.2 Old myocardial infarction; Z95.0 Presence of cardiac pacemaker; Z95.5 Presence of coronary angioplasty implant and graft; Z87.11 Personal history of peptic ulcer disease; Z99.81 Dependence on supplemental oxygen; Z79.01 Long term (current) use of anticoagulants; Z79.02 Long term (current) use of antithrombotics/antiplatelets; Z79.82 Long term (current) use of aspirin; Z79.52 Long term (current) use of systemic steroids
CPT/HCPCS: 36415; 36555; 71045; 71250; 80048; 80053; 81001; 82270; 82550; 82553; 82607; 82728; 82746; 83036; 83540; 83605; 83735; 83880; 84439; 84443; 84466; 84484; 85025; 85610; 85730; 86850; 86900; 87040; 87086; 93005; 93306; 94640; 97139; 99284; J0456; J1756; J1940; J2270; J2920; J2930; J3370; J7030; J7050; J7512

== ENCOUNTER 2018-12-16 03:39 | Observation (INO) | payer OTHER ==
[~2018-12-16] VITALS: Ht 182.9 cm; Wt 95.3 kg
[~2018-12-16 03:39] MED LIST changes: +CEFDINIR300 MG PO; +FOLIC ACID1 MG PO; +MIDODRINE HCL2.5 MG PO
[2018-12-16] MEDS ORDERED: ASPIRIN 81 MG CHEW TAB PO ONE (03:45)
--- OUTSIDE RECORDS SUMMARY | 2018-12-16 03:46 | XMS REPORT | Continuity of Care Document ---
Author Author [employer] Organization [employer] Address Unknown Phone Unavailable Care Team Providers Care Specification Consultant Name Role Phone [employer] Information imageloop Unavailable Unavailable Problems Problem Status Onset Date Classification Date Reported Comments Source SOB / CHEST PAIN Active 2015 [facility] BRONCHITIS, CHEST PAIN Active 2015 [facility] WEAK Active 08/18/2015 [facility] CHEST PAIN, BRADYCARDIA, SUICIDAL IDEATI Active 08/18/2015 [facility] DEBILITATED Active 08/07/2015 [facility] DEBILITY Active 08/07/2015 [facility] LEFT CORONARY ANOMALY Active 07/20/2015 [facility] Anxiety Active Problem 12/05/2015 [facility] COPD Active Problem 12/05/2015 [facility] Depressed Active Problem 12/05/2015 [facility] Hypertension Active Problem 12/05/2015 [facility] Major depressive disorder Active Problem 12/05/2015 [facility] Pacemaker Active Problem 12/05/2015 [facility] Psychomotor retardation Active Problem 12/05/2015 [facility] Pulmonary embolism Resolved Problem 12/05/2015 [facility] Tobacco abuse Active Problem 12/05/2015 [facility] Unstable angina Active Problem 12/05/2015 [facility] OTHER SPECIFIED CONGENITAL DEFORMITIES Active [facility] OTHER MALAISE Active [facility] BRONCHITIS, NOT SPECIFIED ACUTE OR CH Active [facility] Medications Medication Details Route Status Patient Instructions Ordering Provider Order Date Source rivaroxaban 20 mg oral tablet 20 mg=1 tab, PO, QPM, 0 Refill(s) Active 12/02/2015 [facility] lamoTRIgine 25 mg oral tablet 25 mg=1 tab, PO, BID, 0 Refill(s) Active 12/02/2015 [facility] QUEtiapine 25 mg oral tablet 25 mg=1 tab, PO, Q4H, PRN Anxiety, 0 Refill(s) Active 12/02/2015 [facility] Seroquel 25 mg, 1 tab, Route: PO, Drug form: TAB, TID, Dosing Weight 105.455, kg, Start date: 12/02/15 13:00:00 CDT, Duration: 30 day, Stop date: 01/01/16 9:00:00 CDTNotes: (Same as: SEROquel) Inactive 12/02/2015 [facility] Seroquel 25 mg, 1 tab, Route: PO, Drug form: TAB, Q4H, Dosing Weight 105.455, kg, PRN Anxiety, Start date: 12/02/15 12:54:00 CDT, Duration: 30 day, Stop date: 01/01/16 12:53:00 CDTNotes: (Same as: SEROquel) Inactive 12/02/2015 [facility] lamoTRIgine 25 mg oral tablet 25 mg, 1 tab, Route: PO, Drug form: TAB, BID, Dosing Weight 105.455, kg, Priority: NOW, Start date: 12/02/15 11:31:00 CDT, Duration: 30 day, Stop date: 01/01/16 9:00:00 CDTNotes: (Same as:LaMICtal) Inactive 12/02/2015 [facility] Mirtazapine 30 mg, 2 tab, Route: PO, Drug form: TAB, Bedtime, Dosing Weight 105.455, kg, Start date: 11/29/15 21:00:00 CDT, Duration: 30 day, Stop date: 12/28/15 21:00:00 CDTNotes: (Same as:Remeron) No Longer Active 11/30/2015 [facility] Seroquel 50 mg, 2 tab, Route: PO, Drug form: TAB, Bedtime, Dosing Weight 105.455, kg, Start date: 11/29/15 21:00:00 CDT, Stop date: 12/28/15 21:00:00 CDTNotes: (Same as: SEROquel) No Longer Active 11/30/2015 [facility] Xarelto 20 mg, 1 tab, Route: PO, Drug form: TAB, QPM, Dosing Weight 105.455, kg, Start date: 11/29/15 20:00:00 CDT, Duration: 30 day, Stop date: 12/28/15 20:00:00 CDTNotes: (Same as: Xarelto) Administer with food No Longer Active 11/30/2015 [facility] Seroquel 25 mg, 1 tab, Route: PO, Drug form: TAB, Q6H, Dosing Weight 105.455, kg, PRN Agitation, Start date: 11/29/15 19:38:00 CDT, Duration: 30 day, Stop date: 12/29/15 19:37:00 CDTNotes: (Same as: SEROquel) No Longer Active 11/30/2015 [facility] Acetaminophen 300 MG / Codeine Phosphate 30 MG Oral Tablet [Tylenol with Codeine #3] 1 tab, Route: PO, Drug Form: TAB, Dosing Weight 105.455, kg, Q6H, PRN Pain Score 6-10, Start date: 11/29/15 18:44:00 CDT, Duration: 30 day, Stop date: 12/29/15 18:43:00 CDTNotes: Do not exceed 4gm/day of acetaminophen. (Same as: Tylenol with Codeine # 3) No Longer Active 11/29/2015 [facility] POLYETHYLENE GLYCOL 3350 17 gm, 1 pkt, Route: PO, Drug form: PWDR, BID, Dosing Weight 105.455, kg, Start date: 11/29/15 9:00:00 CDT, Duration: 30 day, Stop date: 12/28/15 17:00:00 CDTNotes: Dissolve in 8 oz of water or juice. (Same as: Miralax) No Longer Active 11/29/2015 [facility] Folic Acid 1 mg, 1 tab, Route: PO, Drug form: TAB, Daily, Dosing Weight 105.455, kg, Start date: 11/29/15 9:00:00 CDT, Duration: 30 day, Stop date: 12/28/15 9:00:00 CDTNotes: (Same as: Folvite) No Longer Active 11/29/2015 [facility] Flonase 0.05 mg/inh nasal spray 2 spray, Route: Each Affected Nostril, Drug Form: SPRY, Dosing Weight 105.455, kg, Daily, Start date: 11/29/15 9:00:00 CDT, Duration: 30 day, Stop date: 12/28/15 9:00:00 CDTNotes: (Same as: Flonase) No Longer Active 11/29/2015 [facility] carvedilol 3.125 mg, 1 tab, Route: PO, Drug form: TAB, Q12H, Dosing Weight 105.455, kg, Start date: 11/29/15 9:00:00 CDT, Duration: 30 day, Stop date: 12/28/15 21:00:00 CDTNotes: Give with food. (Same As: Coreg) No Longer Active 11/29/2015 [facility] Budesonide 1 inhalation, Route: INHALATION, Drug form: PWDR, BID, Dosing Weight 105.455, kg, Start date: 11/29/15 9:00:00 CDT, Duration: 30 day, Stop date: 12/28/15 17:00:00 CDTNotes: Same as Pulmicort Flexhaler Non-Formulary Drug No Longer Active 11/29/2015 [facility] Aspirin 81 mg, 1 tab, Route: PO, Drug form: ECTAB, Daily, Dosing Weight 105.455, kg, Start date: 11/29/15 9:00:00 CDT, Duration: 30 day, Stop date: 12/28/15 9:00:00 CDTNotes: Do not crush or chew. (Same As: Ecotrin) No Longer Active 11/29/2015 [facility] Thiamine 100 mg, 1 tab, Route: PO, Drug form: TAB, Daily, Dosing Weight 105.455, kg, Start date: 11/29/15 9:00:00 CDT, Duration: 30 day, Stop date: 12/28/15 9:00:00 CDTNotes: (Same As: Vitamin B1) No Longer Active 11/29/2015 [facility] Nitroglycerin 0.4 MG Sublingual Tablet 0.4 mg, 1 tab, Route: SL, Drug form: TAB, Q5Min, Dosing Weight 105.455, kg, PRN Chest Pain, Start date: 11/28/15 21:08:00 CDT, Duration: 30 day, Stop date: 12/28/15 21:07:00 CDT Inactive 11/29/2015 [facility] Calcium Carbonate 500 MG Chewable Tablet 500 mg, 1 tab, Route: CHEW, Drug form: CHEWTAB, TID, Dosing Weight 105.455, kg, PRN Indigestion, Start date: 11/28/15 21:07:00 CDT, Duration: 30 day, Stop date: 12/28/15 21:06:00 CDTNotes: (Same As: César) Calcium Carbonate 500 tg=627 mg elemental calcium Dose= mg calcium carbonate ( mg elemental calcium) No Longer Active 11/29/2015 [facility] 200 ACTUAT Albuterol 0.09 MG/ACTUAT Metered Dose Inhaler 2 puff, Route: INHALATION, Drug Form: AERO/A, Dosing Weight 105.455, kg, QID, PRN Wheezing, Start date: 11/28/15 21:07:00 CDT, Duration: 30 day, Stop date: 12/28/15 21:06:00 CDTNotes: Albuterol 90 microgram/inh 8gm HFA WASTE: Aerosol - Return to Pharmacy Same as: Violette Proventil No Longer Active 11/29/2015 [facility] Saline Flush 0.9% 10 ml, Route: IVP, Drug Form: INJ, Dosing Weight 113.636, kg, Q12H, Start date: 11/28/15 21:00:00 CDT, Duration: 30 day, Stop date: 12/28/15 9:00:00 CDTNotes: (Same as: BD Posiflush) No Longer Active 11/29/2015 [facility] Albuterol 0.83 MG/ML Inhalant Solution 2.5 mg, 3.01 mL, Route: INHALATION, Drug form: SOLN, RQ6H, Dosing Weight 113.636, kg, Start date: 11/28/15 20:00:00 CDT, Duration: 30 day, Stop date: 12/28/15 14:00:00 CDTNotes: SEE RT DOCUMENTATION (Same as: Proventil) No Longer Active 11/29/2015 [facility] Lovenox 105.455 mg, 0.7 mL, Route: SUB-Q, Drug form: INJ, [id number], Dosing Weight 105.455, kg, Start date: 11/28/15 17:00:00 CDT, Duration: 30 day, Stop date: 12/28/15 9:00:00 CDTNotes: Nurse to ensure document ation of patient education per anticoagulation policy. (Same as: Lovenox) No Longer Active 2015 [facility] Alprazolam 1 MG Oral Tablet [Xanax] 1 mg, 1 tab, Route: PO, Drug form: TAB, ONCE, Dosing Weight 105.455, kg, PRN Anxiety, Start date: 11/28/15 16:13:00 CDT, Stop date: 12/28/15 16:12:00 CDTNotes: With food or milk (Same as: Xanax) Inactive 2015 [facility] Saline Flush 0.9% 10 ml, Route: IVP, Drug Form: INJ, Dosing Weight 113.636, kg, PRN, PRN Line Flush, Start date: 11/28/15 15:24:00 CDT, Duration: 30 day, Stop date: 12/28/15 15:23:00 CDTNotes: (Same as: BD Posiflush) No Longer Active 2015 [facility] Nitroglycerin 0.4 mg, 1 tab, Route: SL, Drug form: TAB, Q5Min, Dosing Weight 113.636, kg, PRN Chest Pain, Start date: 11/28/15 15:24:00 CDT, Duration: 3 doses or times, Stop date: Limited # of timesNotes: (Same as :Nitroquick, Nitrostat) "Do Not Crush" Sublingual tablet No Longer Active 2015 [facility] Morphine 2 mg, 1 mL, Route: IVP, Drug form: INJ, Q15Min, Dosing Weight 113.636, kg, PRN Chest Pain, Start date: 11/28/15 15:24:00 CDT, Duration: 2 doses or times, Stop date: Limited # of timesNotes: (Same as: MORPhine Sulfate) No Longer Active 2015 [facility] Ondansetron 4 mg, 1 tab, Route: PO, Drug form: TAB, Q8H, Dosing Weight 113.636, kg, PRN Nausea & Vomiting, Start date: 11/28/15 15:24:00 CDT, Duration: 30 day, Stop date: 12/28/15 15:23:00 CDTNotes: (Same as: Glen) No Longer Active 2015 [facility] Aspirin 325 MG Oral Tablet 325 mg, 1 tab, Route: PO, Drug form: TAB, ONCE, Dosing Weight 113.636, kg, Start date: 11/28/15 15:24:00 CDT, Stop date: 11/28/15 15:24:00 CDTNotes: Take with food. Inactive 2015 [facility] Sodium Chloride 0.154 MEQ/ML Injectable Solution 1,000 mL, 1,000 ml/hr, Infuse Over: 1 hr, Route: IV, ONCE, Priority: STAT, Dosing Weight 113.636 kg, Start date: 11/28/15 13:34:00 CDT, Duration: 1 doses or times, Stop date: 11/28/15 13:34:00 CDT Inactive 2015 [facility] Morphine 4 mg, Route: IVP, Drug form: INJ, ONCE, Dosing Weight 113.636, kg, Priority: STAT, Start date: 11/28/15 13:34:00 CDT, Stop date: 11/28/15 13:34:00 CDT Inactive 2015 [facility] Nitroglycerin 0.02 MG/MG Topical Ointment 0.5 inch, Route: TOP, Dosing Weight 113.636, kg, ONCE, STAT, Start date: 11/28/15 13:32:00 CDT, Stop date: 11/28/15 13:32:00 CDT Inactive 2015 [facility] Ipratropium 0.5 mg, 2.5 mL, Route: NEB, Drug form: SOLN, ONCE, Dosing Weight 113.636, kg, Priority: STAT, Start date: 11/28/15 10:59:00 CDT, Stop date: 11/28/15 10:59:00 CDTNotes: SEE RT DOCUMENTATION (Same as:Stacey romero) Inactive 2015 [facility] Albuterol 0.83 MG/ML Inhalant Solution 10 mg, Route: NEB, Drug form: SOLN, Continuous, Dosing Weight 113.636, kg, Priority: STAT, Start date: 11/28/15 10:59:00 CDT, Duration: 30 day, Stop date: 12/28/15 10:58:00 CDT Inactive 2015 [facility] methylPREDNISolone SODium SUCCinate 125 mg, 2 mL, Route: IVP, Drug form: INJ, ONCE, Dosing Weight 113.636, kg, Priority: STAT, Start date: 11/28/15 10:59:00 CDT, Stop date: 11/28/15 10:59:00 CDTNotes: (Same as:Solu-MEDROL, A-Methapred) Inactive 2015 [facility] Magnesium Sulfate 2 gm, Route: IVPB, ONCE, Dosing Weight 113.636, kg, Priority: STAT, Start date: 11/28/15 10:59:00 CDT, Stop date: 11/28/15 10:59:00 CDT Inactive 2015 [facility] Saline Flush 0.9% 10 mL, Route: IVP, Drug Form: INJ, Dosing Weight 113.636, kg, PRN, PRN Line Flush, Start date: 11/28/15 10:59:00 CDT, Duration: 30 day, Stop date: 12/28/15 10:58:00 CDTNotes: (Same as: BD Posiflush) Inactive 2015 [facility] Ketoconazole 20 MG/ML Medicated Shampoo 1 appl, Route: TOP, QWed, Drug form: SHMP, Start date: 08/23/15 9:00:00 CDT, Duration: 30 day, Stop date: 09/20/15 9:00:00 CDT No Longer Active 08/23/2015 [facility] predniSONE 5 mg, 1 tab, Route: PO, Drug form: TAB, Daily, Start date: 08/20/15 9:00:00 CDT, Duration: 3 doses or times, Stop date: 08/22/15 9:00:00 CDTNotes: Take with food. No Longer Active 08/20/2015 [facility] Xarelto 15 mg, 1 tab, Route: PO, Drug form: TAB, Q12H, Dosing Weight 95, kg, Start date: 08/20/15 9:00:00 CDT, Duration: 30 day, Stop date: 09/18/15 21:00:00 CDTNotes: (Same as: Xarelto) Administer with food No Longer Active 08/20/2015 [facility] {42 (rivaroxaban 15 MG Oral Tablet [Xarelto]) / 9 (rivaroxaban 20 MG Oral Tablet [Xarelto]) } Pack [Xarelto Kit] 1 tab, PO, BID-Meals, Take 15 mg tablets twice daily with food for 21 days. Beginning day 22,take one 20 mg tablet daily with food for the remainder of therapy., X 30 day, # 1 pkt, 0 Refill(s) Active 08/20/2015 [facility] Pulmicort Respules 0.5 mg, 2 mL, Route: NEB, Drug form: SUSP, RBID, Start date: 08/19/15 22:00:00 CDT, Duration: 30 day, Stop date: 09/18/15 20:00:00 CDTNotes: (Same As: Pulmicort) No Longer Active 08/20/2015 [facility] Thiamine 100 mg, 1 tab, Route: PO, Drug form: TAB, Daily, Dosing Weight 95, kg, Start date: 08/19/15 9:00:00 CDT, Duration: 30 day, Stop date: 09/17/15 9:00:00 CDTNotes: (Same As: Vitamin B1) No Longer Active 08/19/2015 [facility] Ketoconazole 20 MG/ML Medicated Shampoo 1 appl, Route: TOP, QSat, Drug form: SHMP, Start date: 08/19/15 9:00:00 CDT, Duration: 30 day, Stop date: 09/16/15 9:00:00 CDT No Longer Active 08/19/2015 [facility] Folic Acid 1 mg, 1 tab, Route: PO, Drug form: TAB, Daily, Dosing Weight 95, kg, Start date: 08/19/15 9:00:00 CDT, Duration: 30 day, Stop date: 09/17/15 9:00:00 CDTNotes: (Same as: Folvite) No Longer Active 08/19/2015 [facility] Flonase 0.05 mg/inh nasal spray 2 spray, Route: Each Affected Nostril, Drug Form: SPRY, Dosing Weight 95, kg, Daily, Start date: 08/19/15 9:00:00 CDT, Duration: 30 day, Stop date: 09/17/15 9:00:00 CDTNotes: (Same as: Flonase) No Longer Active 08/19/2015 [facility] Aspirin 81 mg, 1 tab, Route: PO, Drug form: ECTAB, Daily, Dosing Weight 95, kg, Start date: 08/19/15 9:00:00 CDT, Duration: 30 day, Stop date: 09/17/15 9:00:00 CDTNotes: Do not crush or chew. (Same As: Ecotrin) No Longer Active 08/19/2015 [facility] Bacitracin 0.4 UNT/MG / Neomycin 0.0035 MG/MG / Polymyxin B 10 UNT/MG Ophthalmic Ointment 1 appl, Route: BOTH EYES, Q3H, Drug form: OINT, Start date: 08/18/15 23:00:00 CDT, Duration: 30 day, Stop date: 09/17/15 20:00:00 CDTNotes: (bacitracin/neomycin/ polymyxin B 3.5 gm oph OIN) (Same As: Neosporin, Triple Antibiotic) No Longer Active 08/19/2015 [facility] Mirtazapine 30 mg, 2 tab, Route: PO, Drug form: TAB, Bedtime, Dosing Weight 95, kg, Start date: 08/18/15 21:00:00 CDT, Duration: 30 day, Stop date: 09/16/15 21:00:00 CDTNotes: (Same as:Remeron) No Longer Active 08/19/2015 [facility] carvedilol 3.125 mg, 1 tab, Route: PO, Drug form: TAB, Q12H, Dosing Weight 95, kg, Start date: 08/18/15 21:00:00 CDT, Duration: 30 day, Stop date: 09/17/15 9:00:00 CDTNotes: Give with food. (Same As: Coreg) No Longer Active 08/19/2015 [facility] Budesonide 1 inhalation, Route: INHALATION, Drug form: PWDR, RBID, Dosing Weight 95, kg, Start date: 08/18/15 20:00:00 CDT, Duration: 30 day, Stop date: 09/17/15 8:00:00 CDTNotes: Same as Pulmicort Flexhaler Non- Formulary Drug Inactive 08/19/2015 [facility] Polymyxin B 16650 UNT/ML / Trimethoprim 1 MG/ML Ophthalmic Solution 1 drp, Route: BOTH EYES, Q3H, Start date: 08/18/15 17:00:00 CDT, Duration: 30 day, Stop date: 09/17/15 14:00:00 CDT Inactive 08/18/2015 [facility] Warfarin 7.5 mg, 1 tab, Route: [...] (Same As: Coumadin) No Longer Active 08/18/2015 [facility] POLYETHYLENE GLYCOL 3350 17 gm, Route: PO, Drug form: PDR/REC, BID, Dosing Weight 95, kg, Start date: 08/18/15 17:00:00 CDT, Duration: 30 day, Stop date: 09/17/15 9:00:00 CDTNotes: (Same as: MiraLax) No Longer Active 08/18/2015 [facility] Polymyxin B 14139 UNT/ML / Trimethoprim 1 MG/ML Ophthalmic Solution 1 drp, BOTH EYES, Q3H, X 7 day, # 10 mL, 0 Refill(s) No Longer Active 08/18/2015 [facility] remove patch 1 patch, Route: TOP, Q24H, Drug form: ERFILM, Start date: 08/18/15 15:00:00 CDT, Duration: 30 day, Stop date: 09/16/15 15:00:00 CDTNotes: Remove patch 12 hours after application each day. No Longer Active 08/18/2015 [facility] Lidocaine Hydrochloride 0.05 MG/MG Transdermal Patch [Lidoderm] 1 patch, Route: TOP, Q24H, Drug form: FILM, Start date: 08/18/15 15:00:00 CDT, Duration: 30 day, Stop date: 09/16/15 15:00:00 CDTNotes: Apply only once for up to 12 hours in a 24-hour period (12 hours on and 12 hours off). (Same as: Lidoderm) "Remove old patch before application of new patch" No Longer Active 08/18/2015 [facility] predniSONE 10 mg, 1 tab, Route: PO, Drug form: TAB, Daily, Start date: 08/18/15 14:27:00 CDT, Duration: 2 doses or times, Stop date: 08/19/15 9:00:00 CDTNotes: (Same as: PredniSONE) Take with food. No Longer Active 08/18/2015 [facility] tramadol hydrochloride 50 MG Oral Tablet [Ultram] 50 mg, 1 tab, Route: PO, Drug form: TAB, Q6H, Dosing Weight 95, kg, PRN Pain Score 6- 10, Start date: 08/18/15 14:08:00 CDT, Duration: 30 day, Stop date: 09/17/15 14:07:00 CDTNotes: Not to exceed 400mg/day. (Same As: Ultram) No Longer Active 08/18/2015 [facility] Prednisone 1 MG Oral Tablet Dose: See Instructions, Route: SUB-Q, Drug form: TAB, Sliding Scale, PRN Blood Glucose Results, Start date: 08/18/15 14:08:00 CDT, Duration: 30 day, Stop date: 09/17/15 14:07:00 CDT Inactive 08/18/2015 [facility] Nitroglycerin 0.4 MG Sublingual Tablet 0.4 mg, 1 tab, Route: SL, Drug form: TAB, Q5Min, Dosing Weight 95, kg, PRN Chest Pain, Start date: 08/18/15 14:08:00 CDT, Duration: 30 day, Stop date: 09/17/15 14:07:00 CDTNotes: (Same as:Nitroquick, Nitrostat) "Do Not Crush" Sublingual tablet No Longer Active 08/18/2015 [facility] hydrocortisone topical 2.5% cream 1 appl, Route: TOP, BID, Drug form: CRM, PRN Itching, Start date: 08/18/15 14:08:00 CDT, Duration: 30 day, Stop date: 09/17/15 14:07:00 CDT No Longer Active 08/18/2015 [facility] Calcium Carbonate 500 MG Chewable Tablet 500 mg, 1 tab, Route: CHEW, Drug form: CHEWTAB, TID, Dosing Weight 95, kg, PRN Indigestion, Start date: 08/18/15 14:08:00 CDT, Duration: 30 day, Stop date: 09/17/15 14:07:00 CDTNotes: (Same As: César) Calcium Carbonate 500 lc=679 mg elemental calcium Dose= mg calcium carbonate ( mg elemental calcium) No Longer Active 08/18/2015 [facility] 200 ACTUAT Albuterol 0.09 MG/ACTUAT Metered Dose Inhaler 2 puff, Route: INHALATION, Drug Form: AERO/A, Dosing Weight 95, kg, RQID, PRN Wheezing, Start date: 08/18/15 14:08:00 CDT, Duration: 30 day, Stop date: 09/17/15 14:07:00 CDT No Longer Active 08/18/2015 [facility] Acetaminophen 1,000 mg, 2 tab, Route: PO, Drug form: TAB, Q6H, Dosing Weight 95, kg, PRN Pain Score 1-5, Start date: 08/18/15 14:07:00 CDT, Duration: 30 day, Stop date: 09/17/15 14:06:00 CDTNotes: Max acetaminophen 4000 mg/day (4 gm/day). (Same as: Tylenol Extra Strength) No Longer Active 08/18/2015 [facility] Sodium Chloride 0.9% IV 25 mL, Route: IV, Start date: 08/18/15 14:03:00 CDT, Duration: 30 day, Stop date: 09/17/15 14:02:00 CDT, PRN Line Flush No Longer Active 08/18/2015 [facility] Artificial Tears 1 drp, Route: Each Affected Eye, QID, Drug form: SOLN, PRN Dry Eyes, Start date: 08/18/15 13:56:00 CDT, Duration: 30 day, Stop date: 09/17/15 13:55:00 CDTNotes: (Same as: Aquasite) No Longer Active 08/18/2015 [facility] Diphenhydramine 25 mg, 0.5 mL, Route: IV, Drug form: INJ, Q6H, Dosing Weight 95, kg, PRN as needed for itching, Start date: 08/18/15 13:55:00 CDT, Duration: 30 day, Stop date: 09/17/15 13:54:00 CDTNotes: (Same as: Benadryl) No Longer Active 08/18/2015 [facility] Lorazepam 1 mg, 0.5 mL, Route: IV, Drug form: INJ, Q6H, Dosing Weight 95, kg, PRN as needed for anxiety, Start date: 08/18/15 13:55:00 CDT, Stop date: 09/17/15 13:54:00 CDTNotes: (Same as: Ativan) No Longer Active 08/18/2015 [facility] Ketoconazole 20 MG/ML Medicated Shampoo 1 appl, TOP, QSat, 0 Refill(s) Active 08/18/2015 [facility] Ketoconazole 20 MG/ML Medicated Shampoo 1 appl, TOP, QWed, 0 Refill(s) Active 08/18/2015 [facility] Saline Flush 0.9% 10 mL, Route: IVP, Drug Form: INJ, Dosing Weight 99.574, kg, PRN, PRN Line Flush, Start date: 08/18/15 8:30:00 CDT, Duration: 30 day, Stop date: 09/17/15 8:29:00 CDTNotes: (Same as: BD Posiflush) No Longer Active 08/18/2015 [facility] Ativan 1 mg, 1 tab, Route: PO, Drug form: TAB, ONCE, Dosing Weight 99.574, kg, Start date: 08/17/15 23:25:00 CDT, Stop date: 08/17/15 23:25:00 CDTNotes: (Same as: Ativan) Inactive 08/18/2015 [facility] tramadol hydrochloride 50 MG Oral Tablet [Ultram] 50 mg=1 tab, PO, Q6H, PRN Pain Score 6-10, # 1 tab, 0 Refill(s), other Active 08/18/2015 [facility] predniSONE 10 mg oral tablet See Instructions, Take 1 tab (10mg) PO daily for 2 days and then take 1/2 tab (5mg) PO daily for 3 days and stop. Take w/ food., # 1 tab, 0 Refill(s), other Active 08/18/2015 [facility] 200 ACTUAT Albuterol 0.09 MG/ACTUAT Metered Dose Inhaler 2 puff, INHALATION, QID, PRN as needed for wheezing, # 3 ea, 0 Refill(s), other Active 08/18/2015 [facility] thiamine 100 mg oral tablet 100 mg=1 tab, PO, Daily, 0 Refill(s) Active 08/18/2015 [facility] tramadol hydrochloride 50 MG Oral Tablet [Ultram] 50 mg=1 tab, PO, Q4H, PRN Pain Score 4-6, 0 Refill(s) Inactive 08/18/2015 [facility] POLYETHYLENE GLYCOL 3350 17 gm, PO, BID, 0 Refill(s) Active 08/18/2015 [facility] methocarbamol 500 mg oral tablet 500 mg=1 tab, PO, QID, PRN Muscle Spasms, per RACHEL Dennis at [facility], did not approve robaxin and not taking, 0 Refill(s) No Longer Active 08/18/2015 [facility] Lidocaine Hydrochloride 0.05 MG/MG Transdermal Patch [Lidoderm] 1 patch, TOP, Q24H, Remove after 12 hours, 0 Refill(s) Active 08/18/2015 [facility] hydrocortisone topical 2.5% cream 1 appl, TOP, BID, PRN Itching, 0 Refill(s) Active 08/18/2015 [facility] Folic Acid 1 MG Oral Tablet 1 mg=1 tab, PO, Daily, 0 Refill(s) Active 08/18/2015 [facility] Calcium Carbonate 500 MG Chewable Tablet 500 mg=1 tab, CHEW, TID, PRN Indigestion, 0 Refill(s) Active 08/18/2015 [facility] Flonase 0.05 mg/inh nasal spray 100 microgram=2 spray, Each Affected Nostril, Daily, 0 Refill(s) Active 08/18/2015 [facility] busPIRone 5 mg oral tablet 5 mg=1 tab, PO, TID, Investigating the current use. New rx from 08/17/15 but not seen on papaers provided by facility. RN Sonny will fax the list, 0 Refill(s) No Longer Active 08/18/2015 [facility] mirtazapine 30 mg oral tablet 30 mg=1 tab, PO, Bedtime, 0 Refill(s) Active 08/18/2015 [facility] warfarin 2.5 mg oral tablet 7.5 mg, PO, QPM, # 1 tab, 0 Refill(s), other No Longer Active 08/18/2015 [facility] acetaminophen 500 mg oral tablet 1,000 mg=2 tab, PO, Q6H, PRN Pain Score 1-5, 0 Refill(s) Active 08/18/2015 [facility] Warfarin 7.5 mg, 1 tab, Route: [...] Waste Black (Same As: Coumadin) Inactive 08/17/2015 [facility] Buspar 5 mg, 1 tab, Route: PO, Drug form: TAB, TID, Dosing Weight 99.574, kg, Start date: 08/17/15 9:00:00 CDT, Duration: 30 day, Stop date: 09/15/15 17:00:00 CDTNotes: (Same As: BuSpar) No Longer Active 08/17/2015 [facility] Warfarin 7.5 mg, 1 tab, Route: [...] Waste Black (Same As: Coumadin) Inactive 08/16/2015 [facility] Methocarbamol 500 mg, 1 tab, Route: PO, Drug form: TAB, QID, Dosing Weight 99.574, kg, PRN Muscle Spasms, Start date: 08/15/15 22:54:00 CDT, Duration: 30 day, Stop date: 09/14/15 22:53:00 CDTNotes: (Same as:Robaxin) No Longer Active 08/16/2015 [facility] Ativan 1 mg, 0.5 mL, Route: IVP, Drug form: INJ, ONCE, Dosing Weight 99.574, kg, Start date: 08/15/15 19:39:00 CDT, Stop date: 08/15/15 19:39:00 CDTNotes: (Same as: Ativan) Inactive 08/16/2015 [facility] Warfarin 6 mg, 1 tab, Route: [...] Waste Black (Same As: Coumadin) Inactive 08/15/2015 [facility] Clonazepam 0.25 mg, 0.5 tab, Route: PO, Drug form: TAB, ONCE, Dosing Weight 99.574, kg, Priority: NOW, Start date: 08/15/15 10:09:00 CDT, Stop date: 08/15/15 10:09:00 CDTNotes: (Same As: KlonoPIN) Inactive 08/15/2015 [facility] Warfarin 5 mg, 1 tab, Route: [...] Waste Black (Same As: Coumadin) Inactive 08/14/2015 [facility] remove patch 1 patch, Route: TOP, Bedtime, Drug form: ERFILM, Start date: 08/14/15 1:00:00 CDT, Duration: 30 day, Stop date: 09/12/15 1:00:00 CDTNotes: Remove patch 12 hours after application each day. No Longer Active 08/14/2015 [facility] Warfarin 5 mg, 1 tab, Route: [...] Waste Black (Same As: Coumadin) Inactive 08/13/2015 [facility] Miralax 17 gm, 1 pkt, Route: PO, Drug form: PWDR, BID, Dosing Weight 99.574, kg, Priority: NOW, Start date: 08/13/15 14:34:00 CDT, Duration: 30 day, Stop date: 09/12/15 9:00:00 CDTNotes: Dissolve in 8 oz of water or juice. (Same as: Miralax) No Longer Active 08/13/2015 [facility] Dulcolax Laxative 10 mg, 1 supp, Route: IN, Drug form: SUPP, ONCE, Dosing Weight 99.574, kg, Priority: NOW, Start date: 08/13/15 14:29:00 CDT, Stop date: 08/13/15 14:29:00 CDTNotes: (Same As: Dulcolax, [place]- Lax) Inactive 08/13/2015 [facility] Lidocaine Hydrochloride 0.05 MG/MG Transdermal Patch [...] of new patch" No Longer Active 08/13/2015 [facility] Warfarin 6 mg, 1 tab, Route: [...] Waste Black (Same As: Coumadin) Inactive 08/12/2015 [facility] warfarin 3 mg oral tablet 6 mg=2 tab, PO, Daily, # 30 tab, 0 Refill(s) No Longer Active 08/12/2015 [facility] 200 ACTUAT Albuterol 0.09 MG/ACTUAT Metered Dose Inhaler 2 puff, INHALATION, QID, # 3 ea, 0 Refill(s) No Longer Active 08/12/2015 [facility] predniSONE 10 mg oral tablet 20 mg=2 tab, PO, Daily, for 3 days then 1 tab daily for 3 days then 0.5 tab for 4 days., # 11 tab, 0 Refill(s) Inactive 08/12/2015 [facility] carvedilol 3.125 mg oral tablet 3.125 mg=1 tab, PO, Q12H, # 60 tab, 0 Refill(s) Active 08/12/2015 [facility] tramadol hydrochloride 50 MG Oral Tablet 50 mg=1 tab, PO, Q6H, PRN Pain, PRN for pain q 6 hrs, # 30 tab, 0 Refill(s) Inactive 08/12/2015 [facility] Nitroglycerin 0.4 MG Sublingual Tablet 0.4 mg=1 tab, SL, Q5Min, PRN Chest Pain, Give up to 3 doses. Call 911 if pain persists., # 100 tab, 0 Refill(s) Active 08/12/2015 [facility] mirtazapine 15 mg oral tablet 15 mg=1 tab, PO, Bedtime, # 30 tab, 0 Refill(s) No Longer Active 08/12/2015 [facility] budesonide 180 mcg/inh inhalation powder 1 puff, INHALATION, BID, # 2 ea, 0 Refill(s) Active 08/12/2015 [facility] Warfarin 7.5 mg, 1 tab, Route: [...] Waste Black (Same As: Coumadin) Inactive 08/11/2015 [facility] Warfarin 6 mg, 1 tab, Route: [...] Waste Black (Same As: Coumadin) Inactive 08/10/2015 [facility] Warfarin 7.5 mg, 1 tab, Route: PO, Drug form: TAB, ONCE, Dosing Weight 99.574, kg, Priority: NOW, Start date: 08/09/15 18:12:00, Stop date: 08/09/15 18:12:00Notes: Nurse to ensure documentation of patient education per anticoagulation policy. Avoid large intake of vitamin-K containing foods diet. WASTE: F/P - P Waste Black; E - P Waste Black (Same As: Coumadin) Inactive 08/09/2015 [facility] Oxycodone Hydrochloride 5 MG Oral Tablet 5 mg, 1 tab, Route: PO, Drug form: TAB, Q6H, Dosing Weight 99.574, kg, PRN Pain Score 7-10, Start date: 08/08/15 18:10:00 CDT, Duration: 30 day, Stop date: 09/07/15 18:09:00 CDTNotes: (Same as: Roxicodone) No Longer Active 08/08/2015 [facility] Tums 500 mg, 1 tab, Route: CHEW, Drug form: CHEWTAB, TID, Dosing Weight 99.574, kg, PRN Indigestion, Start date: 08/08/15 18:07:00, Duration: 30 day, Stop date: 09/07/15 18:06:00Notes: (Same As: Tums) Calcium Carbonate 500 iv=350 mg elemental calcium Dose= mg calcium carbonate ( mg elemental calcium) No Longer Active 08/08/2015 [facility] Coumadin 7.5 mg, 1 tab, Route: [...] Waste Black (Same As: Coumadin) Inactive 08/08/2015 [facility] Tylenol 1,000 mg, 2 tab, Route: PO, Drug form: TAB, Q6H, Dosing Weight 99.574, kg, Start date: 08/07/15 18:00:00, Duration: 30 day, Stop date: 09/06/15 12:00:00Notes: Max acetaminophen 4000 mg/day (4 gm/day). (Same as: Tylenol Extra Strength) No Longer Active 08/07/2015 [facility] Coumadin 7.5 mg, 1 tab, Route: [...] Waste Black (Same As: Coumadin) Inactive 08/07/2015 [facility] tramadol hydrochloride 50 MG Oral Tablet [Ultram] 50 mg, 1 tab, Route: PO, Drug form: TAB, Q4H, Dosing Weight 99.574, kg, PRN Pain Score 4-6, Start date: 08/07/15 12:36:00, Duration: 30 day, Stop date: 09/06/15 12:35:00Notes: Not to exceed 400mg/day. (Same As: Ultram) No Longer Active 08/07/2015 [facility] naproxen sodium 550 mg, Route: PO, Drug form: TAB, BID, Dosing Weight 99.574, kg, PRN Pain Score 1-3, Start date: 08/07/15 12:27:00, Duration: 30 day, Stop date: 09/06/15 12:26:00 Inactive 08/07/2015 [facility] Acetaminophen 325 MG / Hydrocodone Bitartrate 5 MG Oral Tablet [[place] 5/325] 1 tab, Route: PO, Drug Form: TAB, Dosing Weight 99.574, kg, Q4H, PRN Pain Score 1-3, Start date: 08/07/15 10:36:00, Duration: 30 day, Stop date: 09/06/15 10:35:00Notes: (Same as: [place] 325/5) Do not exceed 4gm/day of acetaminophen. Inactive 08/07/2015 [facility] Coumadin 5 mg, 1 tab, Route: [...] Waste Black (Same As: Coumadin) Inactive 08/06/2015 [facility] Ativan 0.5 mg, 1 tab, Route: PO, Drug form: TAB, TID, Dosing Weight 99.574, kg, PRN Anxiety, Start date: 08/06/15 9:39:00, Duration: 30 day, Stop date: 09/05/15 9:38:00Notes: (Same as: Ativan) No Longer Active 08/06/2015 [facility] Ativan 0.5 mg, 0.25 mL, Route: IV, Drug form: INJ, ONCE, Dosing Weight 99.574, kg, Start date: 08/06/15 9:06:00, Stop date: 08/06/15 9:06:00Notes: (Same as: Ativan) Inactive 08/06/2015 [facility] Ativan 0.5 mg, 0.25 mL, Route: IV, Drug form: INJ, ONCE, Dosing Weight 99.574, kg, Start date: 08/06/15 8:49:00, Stop date: 08/06/15 8:49:00Notes: (Same as: Ativan) Inactive 08/06/2015 [facility] Coumadin 10 mg, 1 tab, Route: [...] E - P Waste Black Inactive 08/05/2015 [facility] Coreg 3.125 mg, 1 tab, Route: PO, Drug form: TAB, Q12H, Dosing Weight 99.574, kg, Priority: NOW, Start date: 08/04/15 20:48:00, Duration: 30 day, Stop date: 09/03/15 9:00:00Notes: Give with food. (Same As: Coreg) No Longer Active 08/05/2015 [facility] Warfarin 10 mg, 1 tab, Route: [...] E - P Waste Black Inactive 08/04/2015 [facility] Prednisone 10 mg, 1 tab, Route: PO, Drug form: TAB, Daily, Dosing Weight 99.574, kg, Start date: 08/04/15 9:00:00 CDT, Stop date: 09/02/15 9:00:00 CDTNotes: (Same as: PredniSONE) Take with food. No Longer Active 08/04/2015 [facility] Coumadin 7.5 mg, 1 tab, Route: [...] Waste Black (Same As: Coumadin) Inactive 08/03/2015 [facility] K-Dur 20 40 mEq, 2 tab, Route: PO, Drug form: ERTAB, ONCE, Start date: 08/03/15 14:00:00, Stop date: 08/03/15 14:00:00Notes: (Same as: K- Dur 20) "Do Not Crush" With food and full glass of water Inactive 08/03/2015 [facility] Flonase 0.05 mg/inh nasal spray 2 spray, Route: Each Affected Nostril, Drug Form: SPRY, Dosing Weight 99.574, kg, Daily, NOW, Start date: 08/02/15 18:04:00, Stop date: 09/01/15 9:00:00Notes: (Same as: Flonase) No Longer Active 08/02/2015 [facility] Budesonide 0.25 MG/ML Inhalant Solution [Pulmicort] 0.5 mg, 2 mL, Route: NEB, Drug form: SUSP, BID, Dosing Weight 99.574, kg, Priority: NOW, Start date: 08/02/15 17:58:00, Duration: 30 day, Stop date: 09/01/15 17:00:00Notes: (Same As: Pulmicort) No Longer Active 08/02/2015 [facility] Coumadin 7.5 mg, 1 tab, Route: [...] Waste Black (Same As: Coumadin) Inactive 08/02/2015 [facility] Albuterol 0.83 MG/ML Inhalant Solution 2.49 mg, 3 mL, Route: PO, Drug form: SOLN, RQ4H, Dosing Weight 99.574, kg, PRN Wheezing, Start date: 08/02/15 10:21:00, Duration: 30 day, Stop date: 09/01/15 10:20:00Notes: SEE RT DOCUMENTATION (Same as: Proventil) No Longer Active 08/02/2015 [facility] Coumadin 7.5 mg, 1 tab, Route: PO, Drug form: TAB, Q5PM, Start date: 08/01/15 17:00:00, Duration: 1 day, Stop date: 08/01/15 17:00:00Notes: Nurse to ensure documentation of patient education per anticoagulation policy. Avoid large intake of vitamin-K containing foods diet. WASTE: F/P - P Waste Black; E - P Waste Black (Same As: Coumadin) Inactive 08/01/2015 [facility] Warfarin 5 mg, Route: PO, Q5PM, Dosing Weight 99.574, kg, Start date: 08/01/15 17:00:00, Duration: 1 doses or times, Stop date: 08/01/15 17:00:00 Inactive 08/01/2015 [facility] Bumex 1 mg, 1 tab, Route: PO, Drug form: TAB, Daily, Dosing Weight 99.574, kg, Start date: 08/01/15 9:00:00, Duration: 30 day, Stop date: 08/30/15 9:00:00Notes: (Same As: Bumex) No Longer Active 08/01/2015 [facility] trazodone 50 mg oral tablet 25 mg, 0.5 tab, Route: PO, Drug form: TAB, ONCE, Dosing Weight 99.574, kg, Start date: 07/31/15 23:00:00, Stop date: 07/31/15 23:00:00Notes: (Same As: Desyrel) Inactive 08/01/2015 [facility] Trazodone 25 mg, 0.5 tab, Route: PO, Drug form: TAB, ONCE, Dosing Weight 99.574, kg, PRN Sleep, Start date: 07/31/15 21:49:00, Stop date: 07/31/15 21:49:00Notes: (Same As: Desyrel) Inactive 08/01/2015 [facility] Warfarin 5 mg, 1 tab, Route: [...] Waste Black (Same As: Coumadin) Inactive 07/31/2015 [facility] Lactulose 20 gm, 30 ml, Route: PO, Drug Form: SYRP, Dosing Weight 99.574, kg, ONCE, PRN Constipation, Start date: 07/31/15 9:55:00, Stop date: 08/30/15 9:54:00Notes: (Same as:Chronulac) Inactive 07/31/2015 [facility] azithromycin 250 mg oral tablet 250 mg, 1 tab, Route: PO, Drug form: TAB, Daily, Dosing Weight 99.574, kg, Start date: 07/31/15 9:00:00, Duration: 4 day, Stop date: 08/03/15 9:00:00Notes: Take 1 hour before or 2 hours after meals. (Same As: Zithromax) No Longer Active 07/31/2015 [facility] Lidocaine Hydrochloride 10 MG/ML Injectable Solution 100 mg, 10 mL, Route: IV, Drug Form: INJ, Dosing Weight 99.574, kg, ONCE, Start date: 07/30/15 20:34:00, Stop date: 07/30/15 20:34:00Notes: (Same as: Xylocaine) Inactive 07/31/2015 [facility] Lidocaine Hydrochloride 20 MG/ML Injectable Solution 200 mg, 10 mL, Route: SUB-Q, Drug Form: INJ, Dosing Weight 99.574, kg, ONCE, Start date: 07/30/15 18:53:00, Stop date: 07/30/15 18:53:00Notes: Syringe (Same as: Xylocaine) Inactive 07/30/2015 [facility] azithromycin 500 mg oral tablet 500 mg, 2 tab, Route: PO, Drug form: TAB, Daily, Dosing Weight 99.574, kg, Priority: STAT, Start date: 07/30/15 18:45:00, Duration: 1 doses or times, Stop date: 07/30/15 18:45:00Notes: Take 1 hour before or 2 hours after meals. (Same As: Zithromax) Inactive 07/30/2015 [facility] Albuterol 0.833 MG/ML / Ipratropium [place] 0.167 MG/ML Inhalant Solution 3 ml, Route: NEB, Drug Form: SOLN, Dosing Weight 99.574, kg, RQ4H, STAT, Start date: 07/30/15 18:45:00, Duration: 30 day, Stop date: 08/29/15 15:00:00Notes: (Same as: Duoneb) No Longer Active 07/30/2015 [facility] Prednisone 60 mg, 3 tab, Route: PO, Drug form: TAB, Daily, Dosing Weight 99.574, kg, Priority: STAT, Start date: 07/30/15 18:45:00, Duration: 30 day, Stop date: 08/29/15 9:00:00Notes: Take with food. No Longer Active 07/30/2015 [facility] Magnesium Sulfate 2 gm, 50 mL, Route: IVPB, Drug form: INJ, ONCE, Dosing Weight 99.574, kg, Start date: 07/30/15 15:19:00, Duration: 2 hr, Stop date: 07/30/15 15:19:00Notes: WASTE: F/P - Sink; E - Municipal Trash Bin Inactive 07/30/2015 [facility] Tylenol 650 mg, 2 tab, Route: PO, Drug form: TAB, ONCE, Dosing Weight 99.574, kg, Start date: 07/30/15 1:27:00, Stop date: 07/30/15 1:27:00Notes: Do not exceed 4 gm/day. (Same as: Tylenol) Inactive 07/30/2015 [facility] Magnesium Sulfate 2 gm, 50 mL, Route: IVPB, Drug form: INJ, ONCE, Dosing Weight 99.574, kg, Start date: 07/29/15 10:51:00, Duration: 2 hr, Stop date: 07/29/15 10:51:00Notes: WASTE: F/P - Sink; E - Municipal Trash Bin Inactive 07/29/2015 [facility] Bumex 1 mg, 4 mL, Route: IVP, Drug form: INJ, Daily, Dosing Weight 99.574, kg, Priority: NOW, Start date: 07/29/15 10:17:00, Duration: 30 day, Stop date: 08/28/15 9:00:00Notes: (Same As: Bumex) No Longer Active 07/29/2015 [facility] ketoconazole topical 2% shampoo 1 appl, Route: SHAMPOO, QSat, Drug form: SHMP, Start date: 07/29/15 9:00:00, Duration: 30 day, Stop date: 08/26/15 9:00:00Notes: Non-Formulary Drug (Same as:Nizoral Topical) No Longer Active 07/29/2015 [facility] normal saline 0.9% IV 1,000 mL 1,000 mL, Rate: 50 ml/hr, Infuse over: 20 hr, Route: IVPB, Dosing Weight 99.574 kg, Total Volume: 1,000, Start date: 07/27/15 22:04:00, Duration: 30 day, Stop date: 08/26/15 22:03:00 No Longer Active 07/28/2015 [facility] hydrocortisone topical 2.5% cream 1 appl, Route: TOP, BID, Drug form: CRM, PRN Itching, Start date: 07/26/15 14:53:00, Duration: 30 day, Stop date: 08/25/15 14:52:00 No Longer Active 07/26/2015 [facility] Ketoconazole 20 MG/ML Medicated Shampoo 1 appl, Route: TOP, QWed, Drug form: SHMP, Start date: 07/26/15 14:50:00, Duration: 30 day, Stop date: 08/23/15 15:00:00Notes: Non-Formulary Drug (Same as:Nizoral Topical) No Longer Active 07/26/2015 [facility] tiotropium 0.018 MG/ACTUAT Inhalant Powder [Spiriva] 18 microgram, 1 inhalation, Route: INHALATION, Drug form: CAP, Daily, Dosing Weight 99.574, kg, Start date: 07/26/15 9:00:00, Duration: 30 day, Stop date: 08/24/15 9:00:00Notes: (Same As: Spiriva) No Longer Active 07/26/2015 [facility] Clonidine Hydrochloride 0.1 MG Oral Tablet 0.1 mg, 1 tab, Route: PO, Drug form: TAB, TID, Dosing Weight 99.574, kg, Start date: 07/22/15 17:00:00, Duration: 30 day, Stop date: 08/21/15 13:00:00Notes: (Same As: Catapres) No Longer Active 07/22/2015 [facility] Remeron 30 mg, 2 tab, Route: PO, Drug form: TAB, Bedtime, Dosing Weight 99.574, kg, Start date: 07/21/15 21:00:00, Duration: 30 day, Stop date: 08/19/15 21:00:00Notes: (Same as:Remeron) Inactive 07/22/2015 [facility] Mirtazapine 30 mg, 1 tab, Route: PO, Drug form: TAB, Bedtime, Dosing Weight 99.574, kg, Start date: 07/21/15 21:00:00, Duration: 30 day, Stop date: 09/18/15 21:00:00Notes: (Same as:Remeron) No Longer Active 07/22/2015 [facility] Hydrocortisone-Aloe 0.5% topical cream 1 appl, Route: TOP, BID, Drug form: CRM, Start date: 07/21/15 9:00:00, Duration: 30 day, Stop date: 08/19/15 17:00:00 No Longer Active 07/21/2015 [facility] Aspirin 81 mg, 1 tab, Route: PO, Drug form: ECTAB, Daily, Dosing Weight 99.574, kg, Start date: 07/21/15 9:00:00, Duration: 30 day, Stop date: 09/18/15 9:00:00Notes: Do not crush or chew. (Same As: Ecotrin) No Longer Active 07/21/2015 [facility] Clonidine Hydrochloride 0.1 MG Oral Tablet 0.1 mg, 1 tab, Route: PO, Drug form: TAB, QID, Dosing Weight 99.574, kg, Start date: 07/21/15 9:00:00, Duration: 30 day, Stop date: 08/19/15 21:00:00Notes: (Same As: Catapres) No Longer Active 07/21/2015 [facility] Folic Acid 1 mg, 1 tab, Route: PO, Drug form: TAB, Daily, Dosing Weight 99.574, kg, Start date: 07/21/15 9:00:00, Duration: 30 day, Stop date: 09/18/15 9:00:00Notes: (Same as: Folvite) No Longer Active 07/21/2015 [facility] Thiamine 100 mg, 1 tab, Route: PO, Drug form: TAB, Daily, Dosing Weight 99.574, kg, Start date: 07/21/15 9:00:00, Duration: 30 day, Stop date: 09/18/15 9:00:00Notes: (Same As: Vitamin B1) No Longer Active 07/21/2015 [facility] heparin additive 25,000 unit [18 unit/kg/hr] + Premix Diluent Dextrose 5% 500 mL 500 mL, Rate: 31.1 ml/hr, Infuse over: 16.1 hr, Route: IV, Dosing Weight 86.39 kg, Total Volume: 500 mL, Start date: 07/21/15 3:49:00, Duration: 30 day, Stop date: 08/20/15 3:48:00 No Longer Active 07/21/2015 [facility] Heparin 40 unit/kg Bolus (Heparin Dosing Weight) Route: IVP, PRN, 3,500 unit, 3.5 mL, Drug form: INJ, PRN, Heparin Protocol, Start date: 07/21/15 3:49:00 Stop date: 08/20/15 3:48:00, 30 day No Longer Active 07/21/2015 [facility] Heparin 80 unit/kg Bolus (Heparin Dosing Weight) Route: IVP, PRN, 6,900 unit, 6.9 mL, Drug form: INJ, PRN, Heparin Protocol, Start date: 07/21/15 3:49:00 Stop date: 08/20/15 3:48:00, 30 day No Longer Active 07/21/2015 [facility] tramadol hydrochloride 50 MG Oral Tablet 50 mg, 1 tab, Route: PO, Drug form: TAB, Q6H, Dosing Weight 99.574, kg, PRN Pain Score 6-10, Start date: 07/21/15 3:33:00, Duration: 30 day, Stop date: 08/20/15 3:32:00Notes: Not to exceed 400mg/day. (Same As: Ultram) No Longer Active 07/21/2015 [facility] Artificial Tears 2 drp, Route: BOTH EYES, PRN, Drug form: SOLN, PRN as needed for dry eyes, Start date: 07/21/15 3:33:00 CDT, Duration: 30 day, Stop date: 09/19/15 3:32:00 CDT No Longer Active 07/21/2015 [facility] Nitroglycerin 0.4 MG Sublingual Tablet 0.4 mg, 1 tab, Route: SL, Drug form: TAB, Q5Min, Dosing Weight 99.574, kg, PRN Chest Pain, Start date: 07/21/15 3:33:00 CDT, Duration: 30 day, Stop date: 09/19/15 3:32:00 CDTNotes: (Same as:Nitroquick, Nitrostat) "Do Not Crush" Sublingual tablet No Longer Active 07/21/2015 [facility] Clonazepam 0.5 mg, 1 tab, Route: PO, Drug form: TAB, Q6H, Dosing Weight 99.574, kg, PRN Anxiety, Start date: 07/21/15 3:33:00, Duration: 30 day, Stop date: 08/20/15 3:32:00Notes: (Same As: KlonoPIN) No Longer Active 07/21/2015 [facility] Tylenol PO, Q6H, PRN Pain Score 1-5, 0 Refill(s) No Longer Active 07/21/2015 [facility] Hydrocortisone-Aloe 0.5% topical cream 1 appl, TOP, BID, # 30 gm, 0 Refill(s) No Longer Active 07/21/2015 [facility] Aspirin 81 mg, PO, Daily, 0 Refill(s) Active 07/21/2015 [facility] 24 HR Nicotine 0.875 MG/HR Transdermal Patch =1 patch, Transdermal, Daily, 0 Refill(s) No Longer Active 07/21/2015 [facility] Clonidine Hydrochloride 0.1 MG Oral Tablet 0.1 mg=1 tab, PO, QID, 0 Refill(s) No Longer Active 07/21/2015 [facility] clonazePAM 0.5 mg oral tablet 0.5 mg=1 tab, PO, PRN, Prn anxiety q 6 hrs, 0 Refill(s) No Longer Active 07/21/2015 [facility] mirtazapine 15 mg oral tablet 15 mg=1 tab, PO, Bedtime, # 30 tab, 0 Refill(s) No Longer Active 07/21/2015 [facility] Alprazolam 0.25 MG Oral Tablet 0.25 mg=1 tab, PO, BID, PRN anxiety, stress, # 20 tab, 0 Refill(s) No Longer Active 07/21/2015 [facility] tramadol hydrochloride 50 MG Oral Tablet 50 mg=1 tab, PO, Q6H, PRN Pain, PRN for pain q 6 hrs, 0 Refill(s) No Longer Active 07/21/2015 [facility] Nitroglycerin 0.4 MG Sublingual Tablet 0.4 mg=1 tab, SL, Q5Min, PRN Chest Pain, Give up to 3 doses. Call 911 if pain persists., # 25 tab, 3 Refill(s) No Longer Active 07/21/2015 [facility] Artificial Tears BOTH EYES, PRN, 1 drop each eye q 4 hours, 0 Refill(s) No Longer Active 07/21/2015 [facility] Allergies, Adverse Reactions, Alerts No Known Medication Allergies Immunizations No Data Provided for This Section Results Order Name Results Value Reference Range Date Interpretation Comments Source HEMATOLOGY PT 14.0 12.0 - 14.7 11/29/2015 [facility] HEMATOLOGY INR 1.05 0.85 - 1.17 11/29/2015 [facility] LIPIDS CHD Risk 3.28 4.00 - 7.30 11/29/2015 [facility] LIPIDS Chol 210 <=199 mg/dL 11/29/2015 [facility] LIPIDS Trig 69 <=149 mg/dL 11/29/2015 [facility] LIPIDS HDL 64 >=61 mg/dL 11/29/2015 [facility] LIPIDS VLDL 14 11/29/2015 [facility] LIPIDS LDL (Calculated) 132 <=99 mg/dL 11/29/2015 [facility] CARDIAC ENZYMES Troponin-I <0.02 0.00 - 0.40 11/29/2015 [facility] CARDIAC ENZYMES Total CK 48 12 - 191 11/29/2015 [facility] CARDIAC ENZYMES Troponin-I <0.02 0.00 - 0.40 2015 [facility] CARDIAC ENZYMES Total CK 50 12 - 191 2015 [facility] CARDIAC ENZYMES CK MB Index 4.7 0.0 - 2.5 2015 [facility] CARDIAC ENZYMES BNP 92 <=100 pg/mL 2015 [facility] CARDIAC ENZYMES Troponin-I <0.02 0.00 - 0.40 2015 [facility] CARDIAC ENZYMES CK MB 2.7 0.5 - 3.6 2015 [facility] CARDIAC ENZYMES Total CK 57 12 - 191 2015 [facility] CHEM PANEL eGFR 96 2015 Result [...] Alk Phos 64 39 - 136 2015 [facility] CHEM PANEL Bili Total 0.3 0.2 - 1.3 2015 [facility]M PANEL CO2 29 24 - 32 2015 [facility] CHEM PANEL Chloride Lvl 106 95 - 109 2015 [facility] CHEM PANEL Potassium Lvl 4.0 3.5 - 5.1 2015 [facility] CHEM PANEL A/G Ratio 1.1 0.7 - 1.6 2015 [facility] CHEM PANEL Globulin 3.5 2.0 - 4.0 2015 [facility] CHEM PANEL B/C Ratio 13 6 - 25 2015 [facility] CHEM PANEL Sodium Lvl 141 135 - 145 2015 [facility] CHEM PANEL BUN 11 7 - 22 2015 [facility] CHEM PANEL Glucose Lvl 86 70 - 99 2015 [facility] CHEM PANEL Creatinine Lvl 0.86 0.50 - 1.40 2015 [facility] HEMATOLOGY Segs-Bands # 7.8 1.5 - 8.1 2015 [facility] HEMATOLOGY Basophils 0.9 0.0 - 1.0 2015 [facility] HEMATOLOGY Basophils # 0.1 0.0 - 0.2 2015 [facility] HEMATOLOGY Segs 67.3 45.0 - 75.0 2015 [facility] HEMATOLOGY Monocytes # 0.7 0.0 - 0.8 2015 [facility] HEMATOLOGY Lymphocytes # 3.0 1.0 - 5.5 2015 [facility] HEMATOLOGY Eosinophils 0.2 0.0 - 4.0 2015 [facility] HEMATOLOGY Lymphocytes 25.5 20.0 - 40.0 2015 [facility] Monocytes 6.1 2.0 - 12.0 2015 [facility] RBC 5.08 4.70 - 6.10 2015 [facility] WBC 11.6 3.7 - 10.4 2015 [facility] MPV 7.4 7.4 - 10.4 2015 [facility] Hct 43.6 42.0 - 54.0 2015 [facility] [facility] Hgb 14.0 14.0 - 18.0 2015 [facility] MCV 85.7 80.0 - 94.0 2015 [facility] MCH 27.5 27.0 - 31.0 2015 [facility] RDW 15.0 11.5 - 14.5 2015 [facility] Platelet 244 133 - 450 2015 [facility] MCHC 32.1 32.0 - 36.0 2015 [facility] ELECTROLYTES AGAP 14.0 10.0 - 20.0 08/22/2015 [facility] ELECTROLYTES Calcium Lvl 8.3 8.5 - 10.5 08/22/2015 [facility] ELECTROLYTES CO2 26 24 - 32 08/22/2015 [facility] ELECTROLYTES eGFR 104 08/22/2015 Result Comment: [...] should be multiplied by the estimated BMI. [facility] ELECTROLYTES Chloride Lvl 107 95 - 109 08/22/2015 [facility] ELECTROLYTES Potassium Lvl 4.0 3.5 - 5.1 08/22/2015 [facility] ELECTROLYTES Glucose Lvl 84 70 - 99 08/22/2015 [facility] ELECTROLYTES Sodium Lvl 143 135 - 145 08/22/2015 [facility] ELECTROLYTES BUN 11 7 - 22 08/22/2015 [facility] ELECTROLYTES Creatinine Lvl 0.71 0.50 - 1.40 08/22/2015 [facility] HEMATOLOGY Basophils # 0.0 0.0 - 0.2 08/22/2015 [facility] HEMATOLOGY Eosinophils 1.2 0.0 - 4.0 08/22/2015 [facility] HEMATOLOGY Monocytes 9.5 2.0 - 12.0 08/22/2015 [facility] HEMATOLOGY Monocytes # 0.6 0.0 - 0.8 08/22/2015 [facility] HEMATOLOGY Segs 59.2 45.0 - 75.0 08/22/2015 [facility] HEMATOLOGY Lymphocytes 29.8 20.0 - 40.0 08/22/2015 [facility] HEMATOLOGY Basophils 0.3 0.0 - 1.0 08/22/2015 [facility] HEMATOLOGY Segs-Bands # 3.8 1.5 - 8.1 08/22/2015 [facility] HEMATOLOGY Eosinophils # 0.1 0.0 - 0.5 08/22/2015 [facility] HEMATOLOGY Lymphocytes # 1.9 1.0 - 5.5 08/22/2015 [facility] HEMATOLOGY RBC 4.51 4.70 - 6.10 08/22/2015 [facility] HEMATOLOGY WBC 6.5 3.7 - 10.4 08/22/2015 [facility] HEMATOLOGY MCV 87.9 80.0 - 94.0 08/22/2015 [facility] HEMATOLOGY Hct 39.6 42.0 - 54.0 08/22/2015 [facility] HEMATOLOGY Hgb 12.7 14.0 - 18.0 08/22/2015 [facility] HEMATOLOGY MCHC 32.1 32.0 - 36.0 08/22/2015 [facility] HEMATOLOGY MCH 28.2 27.0 - 31.0 08/22/2015 [facility] HEMATOLOGY MPV 8.1 7.4 - 10.4 08/22/2015 [facility] HEMATOLOGY Platelet 161 133 - 450 08/22/2015 [facility] HEMATOLOGY RDW 16.3 11.5 - 14.5 08/22/2015 [facility] CARDIAC ENZYMES Troponin-I <0.02 0.00 - 0.40 08/19/2015 [facility] CARDIAC ENZYMES Total CK 54 12 - 191 08/19/2015 [facility] CARDIAC ENZYMES Troponin-I <0.02 0.00 - 0.40 08/18/2015 [facility] CARDIAC ENZYMES Total CK 30 12 - 191 08/18/2015 [facility] CARDIAC ENZYMES Troponin-I <0.02 0.00 - 0.40 08/18/2015 [facility] HEMATOLOGY PT 24.6 12.0 - 14.7 08/18/2015 [facility] HEMATOLOGY INR 2.18 0.85 - 1.17 08/18/2015 [facility] BACTERIAL - SEROLOGY MRSA by PCR Negative (08/18/15 1:44 PM) 08/18/2015 [facility] CARDIAC ENZYMES CK MB Index 3.2 0.0 - 2.5 08/18/2015 [facility] CARDIAC ENZYMES CK MB 2.0 0.5 - 3.6 08/18/2015 [facility] CARDIAC ENZYMES Total CK 62 12 - 191 08/18/2015 [facility] CHEM PANEL Lipase Lvl 114 73 - 393 08/18/2015 [facility] CHEM PANEL eGFR 97 08/18/2015 Result [...] should be multiplied by the estimated BMI. [facility] CHEM PANEL AGAP 14.6 10.0 - 20.0 08/18/2015 [facility] CHEM PANEL CO2 23 24 - 32 08/18/2015 [facility] CHEM PANEL Calcium Lvl 8.7 8.5 - 10.5 08/18/2015 [facility] CHEM PANEL Globulin 3.6 2.0 - 4.0 08/18/2015 [facility] CHEM PANEL Total Protein 6.7 6.4 - 8.4 08/18/2015 [facility] CHEM PANEL Albumin Lvl 3.1 3.5 - 5.0 08/18/2015 [facility] CHEM PANEL AST 21 0 - 37 08/18/2015 [facility] CHEM PANEL ALT 36 0 - 65 08/18/2015 [facility] CHEM PANEL B/C Ratio 25 6 - 25 08/18/2015 [facility] CHEM PANEL Bili Total 0.4 0.2 - 1.3 08/18/2015 [facility] CHEM PANEL A/G Ratio 0.9 0.7 - 1.6 08/18/2015 [facility] CHEM PANEL Alk Phos 64 39 - 136 08/18/2015 [facility] CHEM PANEL Glucose Lvl 85 70 - 99 08/18/2015 [facility] CHEM PANEL BUN 21 7 - 22 08/18/2015 [facility] CHEM PANEL Creatinine Lvl 0.83 0.50 - 1.40 08/18/2015 [facility] CHEM PANEL Potassium Lvl 4.6 3.5 - 5.1 08/18/2015 [facility] CHEM PANEL Sodium Lvl 140 135 - 145 08/18/2015 [facility] CHEM PANEL Chloride Lvl 107 95 - 109 08/18/2015 [facility] HEMATOLOGY Basophils # 0.1 0.0 - 0.2 08/18/2015 [facility] HEMATOLOGY Eosinophils # 0.1 0.0 - 0.5 08/18/2015 [facility] HEMATOLOGY Monocytes # 1.0 0.0 - 0.8 08/18/2015 [facility] HEMATOLOGY Lymphocytes # 2.4 1.0 - 5.5 08/18/2015 [facility] HEMATOLOGY Eosinophils 0.5 0.0 - 4.0 08/18/2015 [facility] HEMATOLOGY Monocytes 7.3 2.0 - 12.0 08/18/2015 [facility] HEMATOLOGY Segs-Bands # 10.0 1.5 - 8.1 08/18/2015 [facility] HEMATOLOGY Basophils 0.4 0.0 - 1.0 08/18/2015 [facility] HEMATOLOGY Lymphocytes 18.0 20.0 - 40.0 08/18/2015 [facility] HEMATOLOGY Segs 73.8 45.0 - 75.0 08/18/2015 [facility] HEMATOLOGY Plt Morph Normal (08/18/15 9:22 AM) 08/18/2015 [facility] HEMATOLOGY RBC Morph Normal (08/18/15 9:22 AM) 08/18/2015 [facility] HEMATOLOGY Platelet 207 133 - 450 08/18/2015 Result Comment: Reviewed. [facility] HEMATOLOGY RBC 4.79 4.70 - 6.10 08/18/2015 [facility] HEMATOLOGY WBC 13.5 3.7 - 10.4 08/18/2015 [facility] HEMATOLOGY Hgb 13.7 14.0 - 18.0 08/18/2015 [facility] HEMATOLOGY Hct 42.1 42.0 - 54.0 08/18/2015 [facility] HEMATOLOGY RDW 16.1 11.5 - 14.5 08/18/2015 [facility] HEMATOLOGY MPV 7.7 7.4 - 10.4 08/18/2015 [facility] HEMATOLOGY MCH 28.5 27.0 - 31.0 08/18/2015 [facility] HEMATOLOGY MCV 87.9 80.0 - 94.0 08/18/2015 [facility] HEMATOLOGY MCHC 32.4 32.0 - 36.0 08/18/2015 [facility] ELECTROLYTES AGAP 11.7 10.0 - 20.0 08/17/2015 [facility] ELECTROLYTES eGFR 112 08/17/2015 Result Comment: [...] should be multiplied by the estimated BMI. [facility] ELECTROLYTES Calcium Lvl 7.1 8.5 - 10.5 08/17/2015 [facility] ELECTROLYTES Creatinine Lvl 0.58 0.50 - 1.40 08/17/2015 [facility] ELECTROLYTES Sodium Lvl 146 135 - 145 08/17/2015 [facility] ELECTROLYTES BUN 13 7 - 22 08/17/2015 [facility] ELECTROLYTES Glucose Lvl 78 70 - 99 08/17/2015 [facility] ELECTROLYTES Chloride Lvl 115 95 - 109 08/17/2015 [facility] ELECTROLYTES CO2 23 24 - 32 08/17/2015 [facility] ELECTROLYTES Potassium Lvl 3.7 3.5 - 5.1 08/17/2015 [facility] HEMATOLOGY MCH 28.8 27.0 - 31.0 08/17/2015 [facility] HEMATOLOGY Hct 36.5 42.0 - 54.0 08/17/2015 [facility] HEMATOLOGY MCV 88.6 80.0 - 94.0 08/17/2015 [facility] HEMATOLOGY Hgb 11.8 14.0 - 18.0 08/17/2015 [facility] HEMATOLOGY Platelet 149 133 - 450 08/17/2015 [facility] HEMATOLOGY MCHC 32.5 32.0 - 36.0 08/17/2015 [facility] HEMATOLOGY RDW 15.4 11.5 - 14.5 08/17/2015 [facility] HEMATOLOGY MPV 7.2 7.4 - 10.4 08/17/2015 [facility] HEMATOLOGY WBC 8.5 3.7 - 10.4 08/17/2015 [facility] HEMATOLOGY RBC 4.12 4.70 - 6.10 08/17/2015 [facility] HEMATOLOGY Monocytes 7.1 2.0 - 12.0 08/17/2015 [facility] HEMATOLOGY Basophils 0.4 0.0 - 1.0 08/17/2015 [facility] HEMATOLOGY Segs-Bands # 5.8 1.5 - 8.1 08/17/2015 [facility] HEMATOLOGY Eosinophils 0.5 0.0 - 4.0 08/17/2015 [facility] HEMATOLOGY Lymphocytes 23.4 20.0 - 40.0 08/17/2015 [facility] HEMATOLOGY Segs 68.6 45.0 - 75.0 08/17/2015 [facility] HEMATOLOGY Lymphocytes # 2.0 1.0 - 5.5 08/17/2015 [facility] HEMATOLOGY Monocytes # 0.6 0.0 - 0.8 08/17/2015 [facility] HEMATOLOGY INR 2.09 0.85 - 1.17 08/17/2015 [facility] HEMATOLOGY PT 23.8 12.0 - 14.7 08/17/2015 [facility] HEMATOLOGY INR 1.84 0.85 - 1.17 08/16/2015 [facility] HEMATOLOGY PT 21.6 12.0 - 14.7 08/16/2015 [facility] HEMATOLOGY INR 2.24 0.85 - 1.17 08/15/2015 [facility] HEMATOLOGY PT 25.1 12.0 - 14.7 08/15/2015 [facility] ELECTROLYTES Potassium Lvl 4.2 3.5 - 5.1 08/14/2015 [facility] ELECTROLYTES Chloride Lvl 107 95 - 109 08/14/2015 [facility] ELECTROLYTES Creatinine Lvl 0.93 0.50 - 1.40 08/14/2015 [facility] ELECTROLYTES Sodium Lvl 140 135 - 145 08/14/2015 [facility] ELECTROLYTES BUN 27 7 - 22 08/14/2015 [facility] ELECTROLYTES Calcium Lvl 8.5 8.5 - 10.5 08/14/2015 [facility] ELECTROLYTES CO2 26 24 - 32 08/14/2015 [facility] ELECTROLYTES eGFR 91 08/14/2015 Result Comment: [...] should be multiplied by the estimated BMI. [facility] ELECTROLYTES Glucose Lvl 84 70 - 99 08/14/2015 [facility] ELECTROLYTES AGAP 11.2 10.0 - 20.0 08/14/2015 [facility] CHEM PANEL Magnesium Lvl 2.2 1.8 - 2.4 08/10/2015 [facility] CHEM PANEL eGFR 102 08/10/2015 Result [...] should be multiplied by the estimated BMI. [facility] CHEM PANEL Calcium Lvl 8.8 8.5 - 10.5 08/10/2015 [facility] CHEM PANEL CO2 28 24 - 32 08/10/2015 [facility] CHEM PANEL Chloride Lvl 106 95 - 109 08/10/2015 [facility] CHEM PANEL Potassium Lvl 4.2 3.5 - 5.1 08/10/2015 [facility] CHEM PANEL Sodium Lvl 140 135 - 145 08/10/2015 [facility] CHEM PANEL BUN 20 7 - 22 08/10/2015 [facility] CHEM PANEL Creatinine Lvl 0.74 0.50 - 1.40 08/10/2015 [facility] CHEM PANEL Glucose Lvl 78 70 - 99 08/10/2015 [facility] CHEM PANEL AGAP 10.2 10.0 - 20.0 08/10/2015 [facility] CHEM PANEL Phosphorus 3.7 2.5 - 4.5 08/10/2015 [facility] HEMATOLOGY RBC Morph Normal (08/10/15 5:29 AM) 08/10/2015 [facility] HEMATOLOGY Plt Morph Normal (08/10/15 5:29 AM) 08/10/2015 [facility] HEMATOLOGY Atypical Lymphs 0.0 <=0.0 % 08/10/2015 [facility] HEMATOLOGY Myelocytes 1.0 <=0.0 % 08/10/2015 [facility] HEMATOLOGY Metamyelocytes 1.0 0.0 - 1.0 08/10/2015 [facility] HEMATOLOGY Lymphocytes 24.0 20.0 - 40.0 08/10/2015 [facility] HEMATOLOGY Monocytes 6.0 2.0 - 12.0 08/10/2015 [facility] HEMATOLOGY Segs-Bands # 8.4 1.5 - 8.1 08/10/2015 [facility] HEMATOLOGY Bands 1.0 0.0 - 11.0 08/10/2015 [facility] HEMATOLOGY Monocytes # 0.7 0.0 - 0.8 08/10/2015 [facility] HEMATOLOGY Lymphocytes # 3.0 1.0 - 5.5 08/10/2015 [facility] HEMATOLOGY Segs 67.0 45.0 - 75.0 08/10/2015 [facility] HEMATOLOGY WBC 12.3 3.7 - 10.4 08/10/2015 [facility] HEMATOLOGY RBC 4.82 4.70 - 6.10 08/10/2015 [facility] HEMATOLOGY Hgb 13.6 14.0 - 18.0 08/10/2015 [facility] HEMATOLOGY MCH 28.3 27.0 - 31.0 08/10/2015 [facility] HEMATOLOGY Platelet 227 133 - 450 08/10/2015 [facility] HEMATOLOGY MCHC 32.4 32.0 - 36.0 08/10/2015 [facility] HEMATOLOGY RDW 15.3 11.5 - 14.5 08/10/2015 [facility] HEMATOLOGY MCV 87.2 80.0 - 94.0 08/10/2015 [facility] HEMATOLOGY Hct 42.0 42.0 - 54.0 08/10/2015 [facility] HEMATOLOGY MPV 7.2 7.4 - 10.4 08/10/2015 [facility] CHEM PANEL Magnesium Lvl 2.1 1.8 - 2.4 08/09/2015 [facility] CHEM PANEL Phosphorus 3.9 2.5 - 4.5 08/09/2015 [facility] HEMATOLOGY Myelocytes 1.0 <=0.0 % 08/09/2015 [facility] HEMATOLOGY RBC Morph Normal (08/09/15 4:34 AM) 08/09/2015 [facility] HEMATOLOGY Atypical Lymphs 1.0 <=0.0 % 08/09/2015 [facility] HEMATOLOGY Monocytes # 0.4 0.0 - 0.8 08/09/2015 [facility] HEMATOLOGY Segs-Bands # 7.7 1.5 - 8.1 08/09/2015 [facility] HEMATOLOGY Lymphocytes # 2.8 1.0 - 5.5 08/09/2015 [facility] HEMATOLOGY Plt Morph Normal (08/09/15 4:34 AM) 08/09/2015 [facility] HEMATOLOGY Lymphocytes 24.0 20.0 - 40.0 08/09/2015 [facility] HEMATOLOGY Monocytes 4.0 2.0 - 12.0 08/09/2015 [facility] HEMATOLOGY Segs 65.0 45.0 - 75.0 08/09/2015 [facility] HEMATOLOGY Bands 4.0 0.0 - 11.0 08/09/2015 [facility] HEMATOLOGY Metamyelocytes 1.0 0.0 - 1.0 08/09/2015 [facility] HEMATOLOGY MCV 88.1 80.0 - 94.0 08/09/2015 [facility] HEMATOLOGY MCHC 32.6 32.0 - 36.0 08/09/2015 [facility] HEMATOLOGY MCH 28.7 27.0 - 31.0 08/09/2015 [facility] HEMATOLOGY Hct 42.6 42.0 - 54.0 08/09/2015 [facility] HEMATOLOGY Hgb 13.9 14.0 - 18.0 08/09/2015 [facility] HEMATOLOGY MPV 7.4 7.4 - 10.4 08/09/2015 [facility] HEMATOLOGY RDW 15.4 11.5 - 14.5 08/09/2015 [facility] HEMATOLOGY Platelet 205 133 - 450 08/09/2015 [facility] HEMATOLOGY RBC 4.83 4.70 - 6.10 08/09/2015 [facility] HEMATOLOGY WBC 11.1 3.7 - 10.4 08/09/2015 [facility] CHEM PANEL Magnesium Lvl 2.2 1.8 - 2.4 08/08/2015 [facility] CHEM PANEL Phosphorus 4.1 2.5 - 4.5 08/08/2015 [facility] HEMATOLOGY Eosinophils # 0.2 0.0 - 0.5 08/08/2015 [facility] HEMATOLOGY Basophils # 0.1 0.0 - 0.2 08/08/2015 [facility] HEMATOLOGY Plt Morph Normal (08/08/15 3:55 AM) 08/08/2015 [facility] HEMATOLOGY RBC Morph Normal (08/08/15 3:55 AM) 08/08/2015 [facility] HEMATOLOGY Basophils 0.5 0.0 - 1.0 08/08/2015 [facility] HEMATOLOGY Eosinophils 1.2 0.0 - 4.0 08/08/2015 [facility] HEMATOLOGY Basophils 0.7 0.0 - 1.0 08/07/2015 [facility] HEMATOLOGY Eosinophils 0.4 0.0 - 4.0 08/07/2015 [facility] HEMATOLOGY Basophils # 0.1 0.0 - 0.2 08/07/2015 [facility] HEMATOLOGY PTT 69.5 22.9 - 35.8 08/06/2015 [facility] HEMATOLOGY Toxic Gran See Note 1 (08/06/15 3:33 AM) None Seen 08/06/2015 Result Comment: Slight [facility] HEMATOLOGY Atypical Lymphs 0.0 <=0.0 % 08/06/2015 [facility] HEMATOLOGY Bands 1.0 0.0 - 11.0 08/06/2015 [facility] HEMATOLOGY PTT 64.0 22.9 - 35.8 08/05/2015 [facility] HEMATOLOGY Toxic Gran slight 08/05/2015 [facility] HEMATOLOGY PTT 68.9 22.9 - 35.8 08/05/2015 [facility] HEMATOLOGY Anisocyte 1+ *ABN* (07/31/15 10:41 AM) None Seen 07/31/2015 [facility] HEMATOLOGY Basophils # 0.2 0.0 - 0.2 07/31/2015 [facility] CHEM PANEL Lactic Acid Lvl 1.0 0.5 - 2.2 07/30/2015 [facility] HEMATOLOGY POC Activated Clotting Time 206 07/28/2015 [facility] HEMATOLOGY Eosinophils # 0.1 0.0 - 0.5 07/28/2015 [facility] HEMATOLOGY Eosinophils # 0.1 0.0 - 0.5 07/27/2015 [facility] LIPIDS HDL 45 >=61 mg/dL 07/25/2015 [facility] LIPIDS Chol 162 <=199 mg/dL 07/25/2015 [facility] LIPIDS Trig 74 <=149 mg/dL 07/25/2015 [facility] LIPIDS VLDL 15 07/25/2015 [facility] LIPIDS LDL (Calculated) 102 <=99 mg/dL 07/25/2015 [facility] LIPIDS CHD Risk 3.60 4.00 - 7.30 07/25/2015 [facility] CARDIAC ENZYMES Troponin-I 0.09 0.00 - 0.40 07/21/2015 [facility] CARDIAC ENZYMES Troponin-T 0.035 0.000 - 0.100 07/21/2015 [facility] CARDIAC ENZYMES Total CK 36 12 - 191 07/21/2015 [facility] CARDIAC ENZYMES Troponin-I 0.10 0.00 - 0.40 07/21/2015 [facility] CARDIAC ENZYMES Total CK 32 12 - 191 07/21/2015 [facility] CARDIAC ENZYMES BNP 158 <=100 pg/mL 07/21/2015 [facility] CHEM PANEL A/G Ratio 0.9 0.7 - 1.6 07/21/2015 [facility] CHEM PANEL Bili Total 0.8 0.2 - 1.3 07/21/2015 [facility] CHEM PANEL Alk Phos 59 39 - 136 07/21/2015 [facility] CHEM PANEL Globulin 3.3 2.0 - 4.0 07/21/2015 [facility] CHEM PANEL B/C Ratio 14 6 - 25 07/21/2015 [facility] CHEM PANEL AST 6 0 - 37 07/21/2015 [facility] CHEM PANEL ALT 15 0 - 65 07/21/2015 [facility] CHEM PANEL Albumin Lvl 2.9 3.5 - 5.0 07/21/2015 [facility] CHEM PANEL Total Protein 6.2 6.4 - 8.4 07/21/2015 [facility] CHEM PANEL Amylase Lvl 46 25 - 115 07/21/2015 [facility] CHEM PANEL Lipase Lvl 85 73 - 393 07/21/2015 [facility] SPECIAL CHEMISTRY Hgb A1C 5.4 <=5.6 % 07/21/2015 [facility] Pathology Reports No Data Provided for This Section Diagnostic Reports Report Value Date Source Chest CTA Patient Name: ALETHA LOWERY : 1955; Age: 59 years Male MR: [id number] Study: Chest CTA 2015 3:09 PM CDT [...] 2015 6:09 PM CDT. SL: ANGELY 2015 [facility] 1view DX Study: Chest 1view DX Clinical Indication: Dyspnea Comparison: Chest x-ray from 08/21/2015 FINDINGS: Left sided dual-chamber pacemaker is stable. Cardiac silhouette is normal in size. Small right pleural effusion is seen. There is no pneumothorax. The osseous structures are unremarkable. IMPRESSION: Small right pleural effusion SL: [id number] 2015 [facility] 1view DX Patient Name: ALETHA LOWERY. : 1955; Age: 59 years y/o; Male. MR: [id number]. Ordering Physician: Jocy Bailon MD. PORTABLE CHEST [...] Left lung is unremarkable. SL: [id number] 08/21/2015 [facility] Knee 1-2 Views Bilateral DX Two-view [...] knee joint effusion suspected. SL: [id number]-M 08/20/2015 [facility] Brain wo contrast CT Patient Name: ALETHA LOWERY : 1955; Age: 59 years; Gender: Male MR: [id number] Ordering Physician: Piter Leslie MD PROCEDURE: CT head without contrast INDICATION: Pain Post Trauma. Fall with trauma to the frontal area. Patient is on blood thinners. TECHNIQUE: CT images were obtained from the foramen magnum to the vertex without the use of intravenous contrast on a multidetector CT. Total CT radiation dose: HFQ=4866 mGy-cm COMPARISON: None. FINDINGS: No evidence for [...] 3. Possible mild right maxillary sinusitis. SL: [id number] 08/20/2015 [facility] Chest 1view DX CHEST RADIOGRAPH ONE [...] and/or thickening. 3. Enlarged cardiac silhouette. SL: [id number] 08/18/2015 [facility] Chest 1view DX EXAM: XR CHEST 1 VIEW DATE: 08/06/2015 8:49 AM CDT INDICATION: Coughing. FINDINGS: Comparison is made to August 01. The cardiomediastinal silhouette, life-support lines and tubes are stable. The lungs are clear of consolidation. There are calcified granulomas in the right lower lobe. No pleural effusions are identified. IMPRESSION: No acute abnormality. 08/06/2015 [facility] Chest 1view DX EXAM: XR CHEST 1 VIEW DATE: 08/02/2015 10:20 AM CDT INDICATION: Abnormal chest sounds COMPARISON: Chest x-ray from 07/30/2015 TECHNIQUE: AP chest FINDINGS: Stable right arm PICC. Stable left implantable cardiac defibrillator Stable cardiomediastinal silhouette. Small right pleural effusion versus pleural thickening. No new pleural or parenchymal based abnormalities. IMPRESSION: No significant change. 08/02/2015 [facility] Chest 1view DX EXAM: XR CHEST 1 VIEW DATE: 07/30/2015 7:41 PM CDT INDICATION: Dyspnea COMPARISON: Yesterday TECHNIQUE: AP chest FINDINGS: Stable right arm PICC. Stable left implantable cardiac defibrillator Stable cardiomediastinal silhouette. Small right pleural effusion versus pleural thickening. No new pleural or parenchymal based abnormalities. IMPRESSION: No significant changes compared to yesterday. 07/30/2015 [facility] HVI VAS Venous Lower Ext Bilat [...] no evidence of deep venous thrombosis. 07/29/2015 [facility] Chest 1view DX EXAM: XR CHEST 1 VIEW DATE: 07/29/2015 9:47 AM CDT INDICATION: Shortness of Breath COMPARISON: 07/21/2015 TECHNIQUE: AP chest FINDINGS: Stable right arm PICC. Stable left implantable cardiac defibrillator Stable cardiomediastinal silhouette. Small right pleural effusion. No new pleural or parenchymal based abnormalities. IMPRESSION: No significant changes compared to yesterday at 2:24 AM 07/29/2015 [facility] HVI VAS Arterial Extracranial Doppler Bi [...] was noted in the vertebral arteries. 07/21/2015 [facility] Chest 1view DX EXAM: XR CHEST [...] tip overlies the right brachiocephalic vein. 07/21/2015 [facility] Consultation Notes No Data Provided for This Section Discharge Summaries No Data Provided for This Section History and Physicals No Data Provided for This Section Vital Signs Vital Sign Value Date Comments Source Systolic (mm Hg) 109 12/02/2015 [facility] Diastolic (mm Hg) 76 12/02/2015 [facility] Respitory Rate 22 12/02/2015 [facility] Heart Rate 87 12/02/2015 [facility] Temperature Oral (F) 97.6 F 12/02/2015 [facility] Systolic (mm Hg) 122 12/02/2015 [facility] Diastolic (mm Hg) 82 12/02/2015 [facility] Heart Rate 74 12/02/2015 [facility] Temperature Oral (F) 97.3 F 12/02/2015 [facility] Respitory Rate 21 12/02/2015 [facility] Temperature Oral (F) 97.3 F 12/02/2015 [facility] Heart Rate 73 12/02/2015 [facility] Systolic (mm Hg) 104 12/02/2015 [facility] Diastolic (mm Hg) 67 12/02/2015 [facility] Respitory Rate 16 12/02/2015 [facility] Height 182.88 cm 2015 [facility] BMI Calculated 31.53 2015 [facility] Weight 105.455 2015 [facility] Weight 113.636 2015 [facility] Height 182.88 cm 2015 [facility] BMI Calculated 33.98 2015 [facility] Respitory Rate 20 08/23/2015 [facility] Heart Rate 83 08/23/2015 [facility] Temperature Oral (F) 97.4 F 08/23/2015 [facility] Systolic (mm Hg) 107 08/23/2015 [facility] Diastolic (mm Hg) 53 08/23/2015 [facility] Temperature Oral (F) 97.7 F 08/23/2015 [facility] Heart Rate 82 08/23/2015 [facility] Respitory Rate 20 08/23/2015 [facility] Systolic (mm Hg) 130 08/23/2015 [facility] Diastolic (mm Hg) 84 08/23/2015 [facility] Respitory Rate 20 08/23/2015 [facility] Temperature Oral (F) 97.3 F 08/23/2015 [facility] Systolic (mm Hg) 128 08/23/2015 [facility] Diastolic (mm Hg) 85 08/23/2015 [facility] Height 182.88 cm 08/18/2015 [facility] Weight 95 08/18/2015 [facility] BMI Calculated 28.4 08/18/2015 [facility] Heart Rate 83 08/18/2015 [facility] Systolic (mm Hg) 125 08/18/2015 [facility] Diastolic (mm Hg) 82 08/18/2015 [facility] Heart Rate 105 08/18/2015 [facility] Respitory Rate 18 08/18/2015 [facility] Temperature Oral (F) 97.9 F 08/18/2015 [facility] Heart Rate 83 08/18/2015 [facility] Respitory Rate 18 08/18/2015 [facility] Systolic (mm Hg) 91 08/18/2015 [facility] Diastolic (mm Hg) 67 08/18/2015 [facility] Temperature Oral (F) 97.7 F 08/17/2015 [facility] Systolic (mm Hg) 102 08/17/2015 [facility] Diastolic (mm Hg) 71 08/17/2015 [facility] Respitory Rate 18 08/17/2015 [facility] Heart Rate 81 08/17/2015 [facility] Temperature Oral (F) 97.7 F 08/17/2015 [facility] BMI Calculated 29.77 07/21/2015 [facility] Weight 99.574 07/21/2015 [facility] Height 182.88 cm 07/21/2015 [facility] Encounters Location Location Details Encounter Type Encounter Number Reason For Visit Attending Provider ADM Date DC Date Status Source [facility] [id number] Arie Chung 07/21/2015 08/18/2015 [facility] OBS Observation Patient [id number] Elham Bryson 08/18/2015 08/23/2015 [facility] [id number] Octavio Dc Jr 2015 12/02/2015 [facility] Procedures Procedure Code Date Perfomer Comments Source Insertion of cardiac pacemaker [id number] [facility] Assessment and Plan Assessment and Plan Date Source Extracted from:Title: Clinical Document Author: Jana Monson MD Date: 12/02/15 [facility] Progress Note Impression: Prior PE [...] CTA of the chest done at the [facility]. Those records would be helpful, [...] discharge tomorrow. Will likely need SW assistance. [facility] Providers Hospitalist Service is primary. Call with questions. 12/02/2015 BALDO Rosales Extracted from:Title: Discharge Summary Author: Jocy Bailon MD Date: 08/23/15 <Discharge Summary> Attending: Elham Bryson MD Service: Internal Medicine Code status: None Specified=FULL CODE Reason for Admission: CHEST PAIN, BRADYCARDIA, SUICIDAL IDEATION Working DRG: None Documented Isolation: None Documented Consulting Physicians: Humberto Beavers MD Office: MSO: [id number] Service: Cardiology Piter Leslie MD Office: MSO: [id number] Service: Medicine Jocy Bailon MD Office: MSO: [id number] Service: Medicine Elham Bryson MD Office: MSO: [id number] Service: Medicine Admission Date: 08/18/2015 Discharge Date: [...] dx iwth PE, who was sent from [facility] for an episode of bradycardia and hypoxia. [...] PCP in 1 week after discharge from [facility] I have spent 35 min with the patient and in coordinating discharge. Extracted from:Title: [facility] Cardiology Consult Note Author: Rosemary Vasquez MD [...] consult. Patient okay to discharge back to [facility]. He should follow-up with PCP or Pleat Patternmaker upon discharge. 08/23/2015 [facility] Extracted from:Title: Clinical Document Author: Arie Chung MD Date: 08/16/15 Acute Care Service Line Progress Note Pager#[phone] Attending: Arie Chung Subjective: complains of back [...] alcohol abuse and COPD who presented to [facility] with chest pain as an outside hospital [...] would otherwise require daily venous sticks. 08/18/2015 [facility] Plan of Care No Data Provided [...] Yes; Reg Smoking Cessation Counseling No 12/01/2015 [facility] Social History TypeResponse Alcohol Current, Type [...] Yes; Reg Smoking Cessation Counseling No 07/21/2015 [facility] Social History TypeResponse Alcohol Current, Type [...] Yes; Reg Smoking Cessation Counseling No 07/21/2015 [facility] Family History No Data Provided for This Section Advance Directives No Data Provided for This Section Functional Status No Data Provided for This Section
[2018-12-16] MEDS ORDERED: ALBUTEROL SULF 0.083% NEB SOLN 3 ML NEB NEB STA (03:52)
--- NOTE | 2018-12-16 03:52 | NUR ---
RT AT BEDSIDE FOR BIPAP PLACEMENT.
[2018-12-16] MEDS ORDERED: METHYLPREDNISOLONE SOD SUCC 125 MG/2ML VIAL IV ONE (04:00)
[2018-12-16] MEDS ORDERED: IPRATROPIUM BROMIDE 0.02% 2.5 ML NEB NEB ONE (04:00)
[2018-12-16 04:39] LABS: ABG HCO3 27 mmol/L (23-28); ABG PCO2 51 mmHg (41-51); ABG PH 7.33 (7.31-7.41); ABG PO2 179 mmHg (80-105)
[2018-12-16 05:54] LABS: BASOPHILS % 0.1 % (0.0-1.0); EOSINOPHILS # (AUTO) 0.2 (0.0-0.4); EOSINOPHILS % 2.1 % (0.0-6.0); HEMATOCRIT 30.6 % (38.2-49.6); HEMOGLOBIN 8.9 g/dL (14.0-18.0); LYMPHOCYTES % 18.5 % (18.0-39.1); MEAN CORPUSCULAR HEMOGLOBIN 24.1 pg (28-32); MEAN CORPUSCULAR HGB CONC 29.1 g/dL (31-35); MEAN CORPUSCULAR VOLUME 82.9 fL (81-99); MONOCYTES # (AUTO) 1.1 (0.2-0.8); NEUTROPHILS # (AUTO) 7.5 (2.1-6.9); NEUTROPHILS % 68.5 % (38.7-80.0); PLATELET COUNT 250 x10e3/uL (140-360); RED BLOOD COUNT 3.69 x10e6/uL (4.3-5.7); RED CELL DISTRIBUTION WIDTH 20.4 % (11.7-14.4)
[2018-12-16 06:01] LABS: INR 1.25; PARTIAL THROMBOPLASTIN TIME 31.3 seconds (23.8-35.5); PROTHROMBIN TIME 16.3 seconds (11.9-14.5)
[2018-12-16 06:09] LABS: ALANINE AMINOTRANSFERASE 17 IU/L (0-55); ALBUMIN 3.2 g/dL (3.5-5.0); ALBUMIN/GLOBULIN RATIO 1.1 (0.8-2.0); ALKALINE PHOSPHATASE 71 IU/L (40-150); ANION GAP 11.5 mmol/L (8-16); BLOOD UREA NITROGEN 13 mg/dL (7-26); BUN/CREATININE RATIO 20 (6-25); CALCIUM 8.4 mg/dL (8.4-10.2); CARBON DIOXIDE 29 mmol/L (22-29); CHLORIDE 100 mmol/L (98-107); CREATINE KINASE 53 IU/L (30-200); CREATININE, SERUM 0.66 mg/dL (0.72-1.25); EST GLOMERULAR FILTRATION RATE > 60 ML/MIN (60-); GLUCOSE 75 mg/dL (74-118); POTASSIUM 4.5 mmol/L (3.5-5.1); SODIUM 136 mmol/L (136-145)
--- NOTE | 2018-12-16 06:30 | Diagnostic Imaging Report ---
Two frontal views of the chest. HISTORY: Shortness of breath, COPD, CHF COMPARISON: Chest radiograph December 12, 2018 and December 11, 2018 DISCUSSION: Portable technique, limits sensitivity of the exam. Left anterior oblique rotation. The costophrenic angles are not entirely included. Soft tissue attenuation partially limits sensitivity of the exam. Overlying monitoring lead and other artifacts. Tubes/Lines: Unchanged appearance of the implanted left-sided cardiac device. Lungs and pleura: Diffusely increased pulmonary tissue markings. Mild right atelectasis. Trace right pleural effusion versus pleural thickening. Heart and mediastinum: The cardiac silhouette and central pulmonary vasculature appear(s) mildly enlarged. Bones and soft tissues: Appear unremarkable, given this limited exam. IMPRESSION: 1. Central pulmonary vascular congestion and mild pulmonary edema. 2. Trace right pleural effusion versus pleural thickening with adjacent atelectasis. Signed by: Dr. Gary Arzola D.O., M.M.M. on 12/16/2018 6:25 AM
[2018-12-16] MEDS ORDERED: AZITHROMYCIN 250 MG TAB PO SCH (06:45)
--- NOTE | 2018-12-16 06:45 | NUR ---
REPORT GIVEN TO GREGORY RAMOS
--- OUTSIDE RECORDS SUMMARY | 2018-12-16 06:58 | XMS REPORT | Continuity of Care Document ---
Author Author [employer] Organization [employer] Address Unknown Phone Unavailable Care Team Providers Care Business Intelligence Etl Developer Name Role Phone [email or web address] Information [employer] Unavailable Unavailable Problems Problem Status Onset Date Classification Date Reported Comments Source SOB / CHEST PAIN Active 2015 [facility] BRONCHITIS, CHEST PAIN Active 2015 [facility] WEAK Active 08/18/2015 [facility] CHEST PAIN, BRADYCARDIA, SUICIDAL IDEATI Active 08/18/2015 [facility] DEBILITATED Active 08/07/2015 [facility] DEBILITY Active 08/07/2015 [facility] LEFT CORONARY ANOMALY Active 07/20/2015 [facility] Anxiety Active Problem 12/05/2015 [facility] COPD Active Problem 12/05/2015 [facility] Depressed Active Problem 12/05/2015 [facility] Hypertension Active Problem 12/05/2015 [facility] Major depressive disorder Active Problem 12/05/2015 [facility] Pacemaker Active Problem 12/05/2015 [facility] Psychomotor retardation Active Problem 12/05/2015 [facility] Pulmonary embolism Resolved Problem 12/05/2015 [facility] Tobacco abuse Active Problem 12/05/2015 [facility] Unstable angina Active Problem 12/05/2015 [facility] OTHER SPECIFIED CONGENITAL DEFORMITIES Active [facility] OTHER MALAISE Active [facility] BRONCHITIS, NOT SPECIFIED ACUTE OR CH Active [facility] Medications Medication Details Route Status Patient Instructions Ordering Provider Order Date Source rivaroxaban 20 mg oral tablet 20 mg=1 tab, PO, QPM, 0 Refill(s) Active 12/02/2015 [facility] lamoTRIgine 25 mg oral tablet 25 mg=1 tab, PO, BID, 0 Refill(s) Active 12/02/2015 [facility] QUEtiapine 25 mg oral tablet 25 mg=1 tab, PO, Q4H, PRN Anxiety, 0 Refill(s) Active 12/02/2015 [facility] Seroquel 25 mg, 1 tab, Route: PO, Drug form: TAB, TID, Dosing Weight 105.455, kg, Start date: 12/02/15 13:00:00 CDT, Duration: 30 day, Stop date: 01/01/16 9:00:00 CDTNotes: (Same as: SEROquel) Inactive 12/02/2015 [facility] Seroquel 25 mg, 1 tab, Route: PO, Drug form: TAB, Q4H, Dosing Weight 105.455, kg, PRN Anxiety, Start date: 12/02/15 12:54:00 CDT, Duration: 30 day, Stop date: 01/01/16 12:53:00 CDTNotes: (Same as: SEROquel) Inactive 12/02/2015 [facility] lamoTRIgine 25 mg oral tablet 25 mg, 1 tab, Route: PO, Drug form: TAB, BID, Dosing Weight 105.455, kg, Priority: NOW, Start date: 12/02/15 11:31:00 CDT, Duration: 30 day, Stop date: 01/01/16 9:00:00 CDTNotes: (Same as:LaMICtal) Inactive 12/02/2015 [facility] Mirtazapine 30 mg, 2 tab, Route: PO, Drug form: TAB, Bedtime, Dosing Weight 105.455, kg, Start date: 11/29/15 21:00:00 CDT, Duration: 30 day, Stop date: 12/28/15 21:00:00 CDTNotes: (Same as:Remeron) No Longer Active 11/30/2015 [facility] Seroquel 50 mg, 2 tab, Route: PO, Drug form: TAB, Bedtime, Dosing Weight 105.455, kg, Start date: 11/29/15 21:00:00 CDT, Stop date: 12/28/15 21:00:00 CDTNotes: (Same as: SEROquel) No Longer Active 11/30/2015 [facility] Xarelto 20 mg, 1 tab, Route: PO, Drug form: TAB, QPM, Dosing Weight 105.455, kg, Start date: 11/29/15 20:00:00 CDT, Duration: 30 day, Stop date: 12/28/15 20:00:00 CDTNotes: (Same as: Xarelto) Administer with food No Longer Active 11/30/2015 [facility] Seroquel 25 mg, 1 tab, Route: PO, Drug form: TAB, Q6H, Dosing Weight 105.455, kg, PRN Agitation, Start date: 11/29/15 19:38:00 CDT, Duration: 30 day, Stop date: 12/29/15 19:37:00 CDTNotes: (Same as: SEROquel) No Longer Active 11/30/2015 [facility] Acetaminophen 300 MG / Codeine Phosphate 30 MG Oral Tablet [Tylenol with Codeine #3] 1 tab, Route: PO, Drug Form: TAB, Dosing Weight 105.455, kg, Q6H, PRN Pain Score 6-10, Start date: 11/29/15 18:44:00 CDT, Duration: 30 day, Stop date: 12/29/15 18:43:00 CDTNotes: Do not exceed 4gm/day of acetaminophen. (Same as: Tylenol with Codeine # 3) No Longer Active 11/29/2015 [facility] POLYETHYLENE GLYCOL 3350 17 gm, 1 pkt, Route: PO, Drug form: PWDR, BID, Dosing Weight 105.455, kg, Start date: 11/29/15 9:00:00 CDT, Duration: 30 day, Stop date: 12/28/15 17:00:00 CDTNotes: Dissolve in 8 oz of water or juice. (Same as: Miralax) No Longer Active 11/29/2015 [facility] Folic Acid 1 mg, 1 tab, Route: PO, Drug form: TAB, Daily, Dosing Weight 105.455, kg, Start date: 11/29/15 9:00:00 CDT, Duration: 30 day, Stop date: 12/28/15 9:00:00 CDTNotes: (Same as: Folvite) No Longer Active 11/29/2015 [facility] Flonase 0.05 mg/inh nasal spray 2 spray, Route: Each Affected Nostril, Drug Form: SPRY, Dosing Weight 105.455, kg, Daily, Start date: 11/29/15 9:00:00 CDT, Duration: 30 day, Stop date: 12/28/15 9:00:00 CDTNotes: (Same as: Flonase) No Longer Active 11/29/2015 [facility] carvedilol 3.125 mg, 1 tab, Route: PO, Drug form: TAB, Q12H, Dosing Weight 105.455, kg, Start date: 11/29/15 9:00:00 CDT, Duration: 30 day, Stop date: 12/28/15 21:00:00 CDTNotes: Give with food. (Same As: Coreg) No Longer Active 11/29/2015 [facility] Budesonide 1 inhalation, Route: INHALATION, Drug form: PWDR, BID, Dosing Weight 105.455, kg, Start date: 11/29/15 9:00:00 CDT, Duration: 30 day, Stop date: 12/28/15 17:00:00 CDTNotes: Same as Pulmicort Flexhaler Non-Formulary Drug No Longer Active 11/29/2015 [facility] Aspirin 81 mg, 1 tab, Route: PO, Drug form: ECTAB, Daily, Dosing Weight 105.455, kg, Start date: 11/29/15 9:00:00 CDT, Duration: 30 day, Stop date: 12/28/15 9:00:00 CDTNotes: Do not crush or chew. (Same As: Ecotrin) No Longer Active 11/29/2015 [facility] Thiamine 100 mg, 1 tab, Route: PO, Drug form: TAB, Daily, Dosing Weight 105.455, kg, Start date: 11/29/15 9:00:00 CDT, Duration: 30 day, Stop date: 12/28/15 9:00:00 CDTNotes: (Same As: Vitamin B1) No Longer Active 11/29/2015 [facility] Nitroglycerin 0.4 MG Sublingual Tablet 0.4 mg, 1 tab, Route: SL, Drug form: TAB, Q5Min, Dosing Weight 105.455, kg, PRN Chest Pain, Start date: 11/28/15 21:08:00 CDT, Duration: 30 day, Stop date: 12/28/15 21:07:00 CDT Inactive 11/29/2015 [facility] Calcium Carbonate 500 MG Chewable Tablet 500 mg, 1 tab, Route: CHEW, Drug form: CHEWTAB, TID, Dosing Weight 105.455, kg, PRN Indigestion, Start date: 11/28/15 21:07:00 CDT, Duration: 30 day, Stop date: 12/28/15 21:06:00 CDTNotes: (Same As: César) Calcium Carbonate 500 ma=692 mg elemental calcium Dose= mg calcium carbonate ( mg elemental calcium) No Longer Active 11/29/2015 [facility] 200 ACTUAT Albuterol 0.09 MG/ACTUAT Metered Dose Inhaler 2 puff, Route: INHALATION, Drug Form: AERO/A, Dosing Weight 105.455, kg, QID, PRN Wheezing, Start date: 11/28/15 21:07:00 CDT, Duration: 30 day, Stop date: 12/28/15 21:06:00 CDTNotes: Albuterol 90 microgram/inh 8gm HFA WASTE: Aerosol - Return to Pharmacy Same as: Violette Proventil No Longer Active 11/29/2015 [facility] Saline Flush 0.9% 10 ml, Route: IVP, Drug Form: INJ, Dosing Weight 113.636, kg, Q12H, Start date: 11/28/15 21:00:00 CDT, Duration: 30 day, Stop date: 12/28/15 9:00:00 CDTNotes: (Same as: BD Posiflush) No Longer Active 11/29/2015 [facility] Albuterol 0.83 MG/ML Inhalant Solution 2.5 mg, 3.01 mL, Route: INHALATION, Drug form: SOLN, RQ6H, Dosing Weight 113.636, kg, Start date: 11/28/15 20:00:00 CDT, Duration: 30 day, Stop date: 12/28/15 14:00:00 CDTNotes: SEE RT DOCUMENTATION (Same as: Proventil) No Longer Active 11/29/2015 [facility] Lovenox 105.455 mg, 0.7 mL, Route: SUB-Q, Drug form: INJ, [id number], Dosing Weight 105.455, kg, Start date: 11/28/15 17:00:00 CDT, Duration: 30 day, Stop date: 12/28/15 9:00:00 CDTNotes: Nurse to ensure document ation of patient education per anticoagulation policy. (Same as: Lovenox) No Longer Active 2015 [facility] Alprazolam 1 MG Oral Tablet [Xanax] 1 mg, 1 tab, Route: PO, Drug form: TAB, ONCE, Dosing Weight 105.455, kg, PRN Anxiety, Start date: 11/28/15 16:13:00 CDT, Stop date: 12/28/15 16:12:00 CDTNotes: With food or milk (Same as: Xanax) Inactive 2015 [facility] Saline Flush 0.9% 10 ml, Route: IVP, Drug Form: INJ, Dosing Weight 113.636, kg, PRN, PRN Line Flush, Start date: 11/28/15 15:24:00 CDT, Duration: 30 day, Stop date: 12/28/15 15:23:00 CDTNotes: (Same as: BD Posiflush) No Longer Active 2015 [facility] Nitroglycerin 0.4 mg, 1 tab, Route: SL, Drug form: TAB, Q5Min, Dosing Weight 113.636, kg, PRN Chest Pain, Start date: 11/28/15 15:24:00 CDT, Duration: 3 doses or times, Stop date: Limited # of timesNotes: (Same as :Nitroquick, Nitrostat) "Do Not Crush" Sublingual tablet No Longer Active 2015 [facility] Morphine 2 mg, 1 mL, Route: IVP, Drug form: INJ, Q15Min, Dosing Weight 113.636, kg, PRN Chest Pain, Start date: 11/28/15 15:24:00 CDT, Duration: 2 doses or times, Stop date: Limited # of timesNotes: (Same as: MORPhine Sulfate) No Longer Active 2015 [facility] Ondansetron 4 mg, 1 tab, Route: PO, Drug form: TAB, Q8H, Dosing Weight 113.636, kg, PRN Nausea & Vomiting, Start date: 11/28/15 15:24:00 CDT, Duration: 30 day, Stop date: 12/28/15 15:23:00 CDTNotes: (Same as: Glen) No Longer Active 2015 [facility] Aspirin 325 MG Oral Tablet 325 mg, 1 tab, Route: PO, Drug form: TAB, ONCE, Dosing Weight 113.636, kg, Start date: 11/28/15 15:24:00 CDT, Stop date: 11/28/15 15:24:00 CDTNotes: Take with food. Inactive 2015 [facility] Sodium Chloride 0.154 MEQ/ML Injectable Solution 1,000 mL, 1,000 ml/hr, Infuse Over: 1 hr, Route: IV, ONCE, Priority: STAT, Dosing Weight 113.636 kg, Start date: 11/28/15 13:34:00 CDT, Duration: 1 doses or times, Stop date: 11/28/15 13:34:00 CDT Inactive 2015 [facility] Morphine 4 mg, Route: IVP, Drug form: INJ, ONCE, Dosing Weight 113.636, kg, Priority: STAT, Start date: 11/28/15 13:34:00 CDT, Stop date: 11/28/15 13:34:00 CDT Inactive 2015 [facility] Nitroglycerin 0.02 MG/MG Topical Ointment 0.5 inch, Route: TOP, Dosing Weight 113.636, kg, ONCE, STAT, Start date: 11/28/15 13:32:00 CDT, Stop date: 11/28/15 13:32:00 CDT Inactive 2015 [facility] Ipratropium 0.5 mg, 2.5 mL, Route: NEB, Drug form: SOLN, ONCE, Dosing Weight 113.636, kg, Priority: STAT, Start date: 11/28/15 10:59:00 CDT, Stop date: 11/28/15 10:59:00 CDTNotes: SEE RT DOCUMENTATION (Same as:Stacey romero) Inactive 2015 [facility] Albuterol 0.83 MG/ML Inhalant Solution 10 mg, Route: NEB, Drug form: SOLN, Continuous, Dosing Weight 113.636, kg, Priority: STAT, Start date: 11/28/15 10:59:00 CDT, Duration: 30 day, Stop date: 12/28/15 10:58:00 CDT Inactive 2015 [facility] methylPREDNISolone SODium SUCCinate 125 mg, 2 mL, Route: IVP, Drug form: INJ, ONCE, Dosing Weight 113.636, kg, Priority: STAT, Start date: 11/28/15 10:59:00 CDT, Stop date: 11/28/15 10:59:00 CDTNotes: (Same as:Solu-MEDROL, A-Methapred) Inactive 2015 [facility] Magnesium Sulfate 2 gm, Route: IVPB, ONCE, Dosing Weight 113.636, kg, Priority: STAT, Start date: 11/28/15 10:59:00 CDT, Stop date: 11/28/15 10:59:00 CDT Inactive 2015 [facility] Saline Flush 0.9% 10 mL, Route: IVP, Drug Form: INJ, Dosing Weight 113.636, kg, PRN, PRN Line Flush, Start date: 11/28/15 10:59:00 CDT, Duration: 30 day, Stop date: 12/28/15 10:58:00 CDTNotes: (Same as: BD Posiflush) Inactive 2015 [facility] Ketoconazole 20 MG/ML Medicated Shampoo 1 appl, Route: TOP, QWed, Drug form: SHMP, Start date: 08/23/15 9:00:00 CDT, Duration: 30 day, Stop date: 09/20/15 9:00:00 CDT No Longer Active 08/23/2015 [facility] predniSONE 5 mg, 1 tab, Route: PO, Drug form: TAB, Daily, Start date: 08/20/15 9:00:00 CDT, Duration: 3 doses or times, Stop date: 08/22/15 9:00:00 CDTNotes: Take with food. No Longer Active 08/20/2015 [facility] Xarelto 15 mg, 1 tab, Route: PO, Drug form: TAB, Q12H, Dosing Weight 95, kg, Start date: 08/20/15 9:00:00 CDT, Duration: 30 day, Stop date: 09/18/15 21:00:00 CDTNotes: (Same as: Xarelto) Administer with food No Longer Active 08/20/2015 [facility] {42 (rivaroxaban 15 MG Oral Tablet [Xarelto]) / 9 (rivaroxaban 20 MG Oral Tablet [Xarelto]) } Pack [Xarelto Kit] 1 tab, PO, BID-Meals, Take 15 mg tablets twice daily with food for 21 days. Beginning day 22,take one 20 mg tablet daily with food for the remainder of therapy., X 30 day, # 1 pkt, 0 Refill(s) Active 08/20/2015 [facility] Pulmicort Respules 0.5 mg, 2 mL, Route: NEB, Drug form: SUSP, RBID, Start date: 08/19/15 22:00:00 CDT, Duration: 30 day, Stop date: 09/18/15 20:00:00 CDTNotes: (Same As: Pulmicort) No Longer Active 08/20/2015 [facility] Thiamine 100 mg, 1 tab, Route: PO, Drug form: TAB, Daily, Dosing Weight 95, kg, Start date: 08/19/15 9:00:00 CDT, Duration: 30 day, Stop date: 09/17/15 9:00:00 CDTNotes: (Same As: Vitamin B1) No Longer Active 08/19/2015 [facility] Ketoconazole 20 MG/ML Medicated Shampoo 1 appl, Route: TOP, QSat, Drug form: SHMP, Start date: 08/19/15 9:00:00 CDT, Duration: 30 day, Stop date: 09/16/15 9:00:00 CDT No Longer Active 08/19/2015 [facility] Folic Acid 1 mg, 1 tab, Route: PO, Drug form: TAB, Daily, Dosing Weight 95, kg, Start date: 08/19/15 9:00:00 CDT, Duration: 30 day, Stop date: 09/17/15 9:00:00 CDTNotes: (Same as: Folvite) No Longer Active 08/19/2015 [facility] Flonase 0.05 mg/inh nasal spray 2 spray, Route: Each Affected Nostril, Drug Form: SPRY, Dosing Weight 95, kg, Daily, Start date: 08/19/15 9:00:00 CDT, Duration: 30 day, Stop date: 09/17/15 9:00:00 CDTNotes: (Same as: Flonase) No Longer Active 08/19/2015 [facility] Aspirin 81 mg, 1 tab, Route: PO, Drug form: ECTAB, Daily, Dosing Weight 95, kg, Start date: 08/19/15 9:00:00 CDT, Duration: 30 day, Stop date: 09/17/15 9:00:00 CDTNotes: Do not crush or chew. (Same As: Ecotrin) No Longer Active 08/19/2015 [facility] Bacitracin 0.4 UNT/MG / Neomycin 0.0035 MG/MG / Polymyxin B 10 UNT/MG Ophthalmic Ointment 1 appl, Route: BOTH EYES, Q3H, Drug form: OINT, Start date: 08/18/15 23:00:00 CDT, Duration: 30 day, Stop date: 09/17/15 20:00:00 CDTNotes: (bacitracin/neomycin/ polymyxin B 3.5 gm oph OIN) (Same As: Neosporin, Triple Antibiotic) No Longer Active 08/19/2015 [facility] Mirtazapine 30 mg, 2 tab, Route: PO, Drug form: TAB, Bedtime, Dosing Weight 95, kg, Start date: 08/18/15 21:00:00 CDT, Duration: 30 day, Stop date: 09/16/15 21:00:00 CDTNotes: (Same as:Remeron) No Longer Active 08/19/2015 [facility] carvedilol 3.125 mg, 1 tab, Route: PO, Drug form: TAB, Q12H, Dosing Weight 95, kg, Start date: 08/18/15 21:00:00 CDT, Duration: 30 day, Stop date: 09/17/15 9:00:00 CDTNotes: Give with food. (Same As: Coreg) No Longer Active 08/19/2015 [facility] Budesonide 1 inhalation, Route: INHALATION, Drug form: PWDR, RBID, Dosing Weight 95, kg, Start date: 08/18/15 20:00:00 CDT, Duration: 30 day, Stop date: 09/17/15 8:00:00 CDTNotes: Same as Pulmicort Flexhaler Non- Formulary Drug Inactive 08/19/2015 [facility] Polymyxin B 44849 UNT/ML / Trimethoprim 1 MG/ML Ophthalmic Solution 1 drp, Route: BOTH EYES, Q3H, Start date: 08/18/15 17:00:00 CDT, Duration: 30 day, Stop date: 09/17/15 14:00:00 CDT Inactive 08/18/2015 [facility] Warfarin 7.5 mg, 1 tab, Route: [...] Coumadin) No Longer Active 08/18/2015 [facility] POLYETHYLENE GLYCOL 3350 17 gm, Route: PO, Drug form: PDR/REC, BID, Dosing Weight 95, kg, Start date: 08/18/15 17:00:00 CDT, Duration: 30 day, Stop date: 09/17/15 9:00:00 CDTNotes: (Same as: MiraLax) No Longer Active 08/18/2015 [facility] Polymyxin B 20679 UNT/ML / Trimethoprim 1 MG/ML Ophthalmic Solution 1 drp, BOTH EYES, Q3H, X 7 day, # 10 mL, 0 Refill(s) No Longer Active 08/18/2015 [facility] remove patch 1 patch, Route: TOP, Q24H, Drug form: ERFILM, Start date: 08/18/15 15:00:00 CDT, Duration: 30 day, Stop date: 09/16/15 15:00:00 CDTNotes: Remove patch 12 hours after application each day. No Longer Active 08/18/2015 [facility] Lidocaine Hydrochloride 0.05 MG/MG Transdermal Patch [...] patch" No Longer Active 08/18/2015 [facility] predniSONE 10 mg, 1 tab, Route: PO, Drug form: TAB, Daily, Start date: 08/18/15 14:27:00 CDT, Duration: 2 doses or times, Stop date: 08/19/15 9:00:00 CDTNotes: (Same as: PredniSONE) Take with food. No Longer Active 08/18/2015 [facility] tramadol hydrochloride 50 MG Oral Tablet [Ultram] 50 mg, 1 tab, Route: PO, Drug form: TAB, Q6H, Dosing Weight 95, kg, PRN Pain Score 6- 10, Start date: 08/18/15 14:08:00 CDT, Duration: 30 day, Stop date: 09/17/15 14:07:00 CDTNotes: Not to exceed 400mg/day. (Same As: Ultram) No Longer Active 08/18/2015 [facility] Prednisone 1 MG Oral Tablet Dose: See Instructions, Route: SUB-Q, Drug form: TAB, Sliding Scale, PRN Blood Glucose Results, Start date: 08/18/15 14:08:00 CDT, Duration: 30 day, Stop date: 09/17/15 14:07:00 CDT Inactive 08/18/2015 [facility] Nitroglycerin 0.4 MG Sublingual Tablet 0.4 mg, 1 tab, Route: SL, Drug form: TAB, Q5Min, Dosing Weight 95, kg, PRN Chest Pain, Start date: 08/18/15 14:08:00 CDT, Duration: 30 day, Stop date: 09/17/15 14:07:00 CDTNotes: (Same as:Nitroquick, Nitrostat) "Do Not Crush" Sublingual tablet No Longer Active 08/18/2015 [facility] hydrocortisone topical 2.5% cream 1 appl, Route: TOP, BID, Drug form: CRM, PRN Itching, Start date: 08/18/15 14:08:00 CDT, Duration: 30 day, Stop date: 09/17/15 14:07:00 CDT No Longer Active 08/18/2015 [facility] Calcium Carbonate 500 MG Chewable Tablet 500 mg, 1 tab, Route: CHEW, Drug form: CHEWTAB, TID, Dosing Weight 95, kg, PRN Indigestion, Start date: 08/18/15 14:08:00 CDT, Duration: 30 day, Stop date: 09/17/15 14:07:00 CDTNotes: (Same As: César) Calcium Carbonate 500 pr=590 mg elemental calcium Dose= mg calcium carbonate ( mg elemental calcium) No Longer Active 08/18/2015 [facility] 200 ACTUAT Albuterol 0.09 MG/ACTUAT Metered Dose Inhaler 2 puff, Route: INHALATION, Drug Form: AERO/A, Dosing Weight 95, kg, RQID, PRN Wheezing, Start date: 08/18/15 14:08:00 CDT, Duration: 30 day, Stop date: 09/17/15 14:07:00 CDT No Longer Active 08/18/2015 [facility] Acetaminophen 1,000 mg, 2 tab, Route: PO, Drug form: TAB, Q6H, Dosing Weight 95, kg, PRN Pain Score 1-5, Start date: 08/18/15 14:07:00 CDT, Duration: 30 day, Stop date: 09/17/15 14:06:00 CDTNotes: Max acetaminophen 4000 mg/day (4 gm/day). (Same as: Tylenol Extra Strength) No Longer Active 08/18/2015 [facility] Sodium Chloride 0.9% IV 25 mL, Route: IV, Start date: 08/18/15 14:03:00 CDT, Duration: 30 day, Stop date: 09/17/15 14:02:00 CDT, PRN Line Flush No Longer Active 08/18/2015 [facility] Artificial Tears 1 drp, Route: Each Affected Eye, QID, Drug form: SOLN, PRN Dry Eyes, Start date: 08/18/15 13:56:00 CDT, Duration: 30 day, Stop date: 09/17/15 13:55:00 CDTNotes: (Same as: Aquasite) No Longer Active 08/18/2015 [facility] Diphenhydramine 25 mg, 0.5 mL, Route: IV, Drug form: INJ, Q6H, Dosing Weight 95, kg, PRN as needed for itching, Start date: 08/18/15 13:55:00 CDT, Duration: 30 day, Stop date: 09/17/15 13:54:00 CDTNotes: (Same as: Benadryl) No Longer Active 08/18/2015 [facility] Lorazepam 1 mg, 0.5 mL, Route: IV, Drug form: INJ, Q6H, Dosing Weight 95, kg, PRN as needed for anxiety, Start date: 08/18/15 13:55:00 CDT, Stop date: 09/17/15 13:54:00 CDTNotes: (Same as: Ativan) No Longer Active 08/18/2015 [facility] Ketoconazole 20 MG/ML Medicated Shampoo 1 appl, TOP, QSat, 0 Refill(s) Active 08/18/2015 [facility] Ketoconazole 20 MG/ML Medicated Shampoo 1 appl, TOP, QWed, 0 Refill(s) Active 08/18/2015 [facility] Saline Flush 0.9% 10 mL, Route: IVP, Drug Form: INJ, Dosing Weight 99.574, kg, PRN, PRN Line Flush, Start date: 08/18/15 8:30:00 CDT, Duration: 30 day, Stop date: 09/17/15 8:29:00 CDTNotes: (Same as: BD Posiflush) No Longer Active 08/18/2015 [facility] Ativan 1 mg, 1 tab, Route: PO, Drug form: TAB, ONCE, Dosing Weight 99.574, kg, Start date: 08/17/15 23:25:00 CDT, Stop date: 08/17/15 23:25:00 CDTNotes: (Same as: Ativan) Inactive 08/18/2015 [facility] tramadol hydrochloride 50 MG Oral Tablet [Ultram] 50 mg=1 tab, PO, Q6H, PRN Pain Score 6-10, # 1 tab, 0 Refill(s), other Active 08/18/2015 [facility] predniSONE 10 mg oral tablet See Instructions, Take 1 tab (10mg) PO daily for 2 days and then take 1/2 tab (5mg) PO daily for 3 days and stop. Take w/ food., # 1 tab, 0 Refill(s), other Active 08/18/2015 [facility] 200 ACTUAT Albuterol 0.09 MG/ACTUAT Metered Dose Inhaler 2 puff, INHALATION, QID, PRN as needed for wheezing, # 3 ea, 0 Refill(s), other Active 08/18/2015 [facility] thiamine 100 mg oral tablet 100 mg=1 tab, PO, Daily, 0 Refill(s) Active 08/18/2015 [facility] tramadol hydrochloride 50 MG Oral Tablet [Ultram] 50 mg=1 tab, PO, Q4H, PRN Pain Score 4-6, 0 Refill(s) Inactive 08/18/2015 [facility] POLYETHYLENE GLYCOL 3350 17 gm, PO, BID, 0 Refill(s) Active 08/18/2015 [facility] methocarbamol 500 mg oral tablet 500 mg=1 tab, PO, QID, PRN Muscle Spasms, per RACHEL Dennis at [facility], did not approve robaxin and not taking, 0 Refill(s) No Longer Active 08/18/2015 [facility] Lidocaine Hydrochloride 0.05 MG/MG Transdermal Patch [Lidoderm] 1 patch, TOP, Q24H, Remove after 12 hours, 0 Refill(s) Active 08/18/2015 [facility] hydrocortisone topical 2.5% cream 1 appl, TOP, BID, PRN Itching, 0 Refill(s) Active 08/18/2015 [facility] Folic Acid 1 MG Oral Tablet 1 mg=1 tab, PO, Daily, 0 Refill(s) Active 08/18/2015 [facility] Calcium Carbonate 500 MG Chewable Tablet 500 mg=1 tab, CHEW, TID, PRN Indigestion, 0 Refill(s) Active 08/18/2015 [facility] Flonase 0.05 mg/inh nasal spray 100 microgram=2 spray, Each Affected Nostril, Daily, 0 Refill(s) Active 08/18/2015 [facility] busPIRone 5 mg oral tablet 5 mg=1 tab, PO, TID, Investigating the current use. New rx from 08/17/15 but not seen on papaers provided by facility. RN Sonny will fax the list, 0 Refill(s) No Longer Active 08/18/2015 [facility] mirtazapine 30 mg oral tablet 30 mg=1 tab, PO, Bedtime, 0 Refill(s) Active 08/18/2015 [facility] warfarin 2.5 mg oral tablet 7.5 mg, PO, QPM, # 1 tab, 0 Refill(s), other No Longer Active 08/18/2015 [facility] acetaminophen 500 mg oral tablet 1,000 mg=2 tab, PO, Q6H, PRN Pain Score 1-5, 0 Refill(s) Active 08/18/2015 [facility] Warfarin 7.5 mg, 1 tab, [...] Waste Black (Same As: Coumadin) Inactive 08/17/2015 [facility] Buspar 5 mg, 1 tab, Route: PO, Drug form: TAB, TID, Dosing Weight 99.574, kg, Start date: 08/17/15 9:00:00 CDT, Duration: 30 day, Stop date: 09/15/15 17:00:00 CDTNotes: (Same As: BuSpar) No Longer Active 08/17/2015 [facility] Warfarin 7.5 mg, 1 tab, [...] Waste Black (Same As: Coumadin) Inactive 08/16/2015 [facility] Methocarbamol 500 mg, 1 tab, Route: PO, Drug form: TAB, QID, Dosing Weight 99.574, kg, PRN Muscle Spasms, Start date: 08/15/15 22:54:00 CDT, Duration: 30 day, Stop date: 09/14/15 22:53:00 CDTNotes: (Same as:Robaxin) No Longer Active 08/16/2015 [facility] Ativan 1 mg, 0.5 mL, Route: IVP, Drug form: INJ, ONCE, Dosing Weight 99.574, kg, Start date: 08/15/15 19:39:00 CDT, Stop date: 08/15/15 19:39:00 CDTNotes: (Same as: Ativan) Inactive 08/16/2015 [facility] Warfarin 6 mg, 1 tab, [...] Waste Black (Same As: Coumadin) Inactive 08/15/2015 [facility] Clonazepam 0.25 mg, 0.5 tab, Route: PO, Drug form: TAB, ONCE, Dosing Weight 99.574, kg, Priority: NOW, Start date: 08/15/15 10:09:00 CDT, Stop date: 08/15/15 10:09:00 CDTNotes: (Same As: KlonoPIN) Inactive 08/15/2015 [facility] Warfarin 5 mg, 1 tab, [...] Waste Black (Same As: Coumadin) Inactive 08/14/2015 [facility] remove patch 1 patch, Route: TOP, Bedtime, Drug form: ERFILM, Start date: 08/14/15 1:00:00 CDT, Duration: 30 day, Stop date: 09/12/15 1:00:00 CDTNotes: Remove patch 12 hours after application each day. No Longer Active 08/14/2015 [facility] Warfarin 5 mg, 1 tab, [...] Waste Black (Same As: Coumadin) Inactive 08/13/2015 [facility] Miralax 17 gm, 1 pkt, Route: PO, Drug form: PWDR, BID, Dosing Weight 99.574, kg, Priority: NOW, Start date: 08/13/15 14:34:00 CDT, Duration: 30 day, Stop date: 09/12/15 9:00:00 CDTNotes: Dissolve in 8 oz of water or juice. (Same as: Miralax) No Longer Active 08/13/2015 [facility] Dulcolax Laxative 10 mg, 1 supp, Route: VT, Drug form: SUPP, ONCE, Dosing Weight 99.574, kg, Priority: NOW, Start date: 08/13/15 14:29:00 CDT, Stop date: 08/13/15 14:29:00 CDTNotes: (Same As: Dulcolax, Bisco- Lax) Inactive 08/13/2015 [facility] Lidocaine Hydrochloride 0.05 MG/MG Transdermal [...] of new patch" No Longer Active 08/13/2015 [facility] Warfarin 6 mg, 1 tab, [...] Waste Black (Same As: Coumadin) Inactive 08/12/2015 [facility] warfarin 3 mg oral tablet 6 mg=2 tab, PO, Daily, # 30 tab, 0 Refill(s) No Longer Active 08/12/2015 [facility] 200 ACTUAT Albuterol 0.09 MG/ACTUAT Metered Dose Inhaler 2 puff, INHALATION, QID, # 3 ea, 0 Refill(s) No Longer Active 08/12/2015 [facility] predniSONE 10 mg oral tablet 20 mg=2 tab, PO, Daily, for 3 days then 1 tab daily for 3 days then 0.5 tab for 4 days., # 11 tab, 0 Refill(s) Inactive 08/12/2015 [facility] carvedilol 3.125 mg oral tablet 3.125 mg=1 tab, PO, Q12H, # 60 tab, 0 Refill(s) Active 08/12/2015 [facility] tramadol hydrochloride 50 MG Oral Tablet 50 mg=1 tab, PO, Q6H, PRN Pain, PRN for pain q 6 hrs, # 30 tab, 0 Refill(s) Inactive 08/12/2015 [facility] Nitroglycerin 0.4 MG Sublingual Tablet 0.4 mg=1 tab, SL, Q5Min, PRN Chest Pain, Give up to 3 doses. Call 911 if pain persists., # 100 tab, 0 Refill(s) Active 08/12/2015 [facility] mirtazapine 15 mg oral tablet 15 mg=1 tab, PO, Bedtime, # 30 tab, 0 Refill(s) No Longer Active 08/12/2015 [facility] budesonide 180 mcg/inh inhalation powder 1 puff, INHALATION, BID, # 2 ea, 0 Refill(s) Active 08/12/2015 [facility] Warfarin 7.5 mg, 1 tab, [...] Waste Black (Same As: Coumadin) Inactive 08/11/2015 [facility] Warfarin 6 mg, 1 tab, [...] Waste Black (Same As: Coumadin) Inactive 08/10/2015 [facility] Warfarin 7.5 mg, 1 tab, Route: PO, Drug form: TAB, ONCE, Dosing Weight 99.574, kg, Priority: NOW, Start date: 08/09/15 18:12:00, Stop date: 08/09/15 18:12:00Notes: Nurse to ensure documentation of patient education per anticoagulation policy. Avoid large intake of vitamin-K containing foods diet. WASTE: F/P - P Waste Black; E - P Waste Black (Same As: Coumadin) Inactive 08/09/2015 [facility] Oxycodone Hydrochloride 5 MG Oral Tablet 5 mg, 1 tab, Route: PO, Drug form: TAB, Q6H, Dosing Weight 99.574, kg, PRN Pain Score 7-10, Start date: 08/08/15 18:10:00 CDT, Duration: 30 day, Stop date: 09/07/15 18:09:00 CDTNotes: (Same as: Roxicodone) No Longer Active 08/08/2015 [facility] Tums 500 mg, 1 tab, Route: CHEW, Drug form: CHEWTAB, TID, Dosing Weight 99.574, kg, PRN Indigestion, Start date: 08/08/15 18:07:00, Duration: 30 day, Stop date: 09/07/15 18:06:00Notes: (Same As: Tums) Calcium Carbonate 500 hk=577 mg elemental calcium Dose= mg calcium carbonate ( mg elemental calcium) No Longer Active 08/08/2015 [facility] Coumadin 7.5 mg, 1 tab, [...] Waste Black (Same As: Coumadin) Inactive 08/08/2015 [facility] Tylenol 1,000 mg, 2 tab, Route: PO, Drug form: TAB, Q6H, Dosing Weight 99.574, kg, Start date: 08/07/15 18:00:00, Duration: 30 day, Stop date: 09/06/15 12:00:00Notes: Max acetaminophen 4000 mg/day (4 gm/day). (Same as: Tylenol Extra Strength) No Longer Active 08/07/2015 [facility] Coumadin 7.5 mg, 1 tab, [...] Waste Black (Same As: Coumadin) Inactive 08/07/2015 [facility] tramadol hydrochloride 50 MG Oral Tablet [Ultram] 50 mg, 1 tab, Route: PO, Drug form: TAB, Q4H, Dosing Weight 99.574, kg, PRN Pain Score 4-6, Start date: 08/07/15 12:36:00, Duration: 30 day, Stop date: 09/06/15 12:35:00Notes: Not to exceed 400mg/day. (Same As: Ultram) No Longer Active 08/07/2015 [facility] naproxen sodium 550 mg, Route: PO, Drug form: TAB, BID, Dosing Weight 99.574, kg, PRN Pain Score 1-3, Start date: 08/07/15 12:27:00, Duration: 30 day, Stop date: 09/06/15 12:26:00 Inactive 08/07/2015 [facility] Acetaminophen 325 MG / Hydrocodone Bitartrate 5 MG Oral Tablet [[place] 5/325] 1 tab, Route: PO, Drug Form: TAB, Dosing Weight 99.574, kg, Q4H, PRN Pain Score 1-3, Start date: 08/07/15 10:36:00, Duration: 30 day, Stop date: 09/06/15 10:35:00Notes: (Same as: [place] 325/5) Do not exceed 4gm/day of acetaminophen. Inactive 08/07/2015 [facility] Coumadin 5 mg, 1 tab, [...] Waste Black (Same As: Coumadin) Inactive 08/06/2015 [facility] Ativan 0.5 mg, 1 tab, Route: PO, Drug form: TAB, TID, Dosing Weight 99.574, kg, PRN Anxiety, Start date: 08/06/15 9:39:00, Duration: 30 day, Stop date: 09/05/15 9:38:00Notes: (Same as: Ativan) No Longer Active 08/06/2015 [facility] Ativan 0.5 mg, 0.25 mL, Route: IV, Drug form: INJ, ONCE, Dosing Weight 99.574, kg, Start date: 08/06/15 9:06:00, Stop date: 08/06/15 9:06:00Notes: (Same as: Ativan) Inactive 08/06/2015 [facility] Ativan 0.5 mg, 0.25 mL, Route: IV, Drug form: INJ, ONCE, Dosing Weight 99.574, kg, Start date: 08/06/15 8:49:00, Stop date: 08/06/15 8:49:00Notes: (Same as: Ativan) Inactive 08/06/2015 [facility] Coumadin 10 mg, 1 tab, [...] E - P Waste Black Inactive 08/05/2015 [facility] Coreg 3.125 mg, 1 tab, Route: PO, Drug form: TAB, Q12H, Dosing Weight 99.574, kg, Priority: NOW, Start date: 08/04/15 20:48:00, Duration: 30 day, Stop date: 09/03/15 9:00:00Notes: Give with food. (Same As: Coreg) No Longer Active 08/05/2015 [facility] Warfarin 10 mg, 1 tab, [...] E - P Waste Black Inactive 08/04/2015 [facility] Prednisone 10 mg, 1 tab, Route: PO, Drug form: TAB, Daily, Dosing Weight 99.574, kg, Start date: 08/04/15 9:00:00 CDT, Stop date: 09/02/15 9:00:00 CDTNotes: (Same as: PredniSONE) Take with food. No Longer Active 08/04/2015 [facility] Coumadin 7.5 mg, 1 tab, [...] Waste Black (Same As: Coumadin) Inactive 08/03/2015 [facility] K-Dur 20 40 mEq, 2 tab, Route: PO, Drug form: ERTAB, ONCE, Start date: 08/03/15 14:00:00, Stop date: 08/03/15 14:00:00Notes: (Same as: K- Dur 20) "Do Not Crush" With food and full glass of water Inactive 08/03/2015 [facility] Flonase 0.05 mg/inh nasal spray 2 spray, Route: Each Affected Nostril, Drug Form: SPRY, Dosing Weight 99.574, kg, Daily, NOW, Start date: 08/02/15 18:04:00, Stop date: 09/01/15 9:00:00Notes: (Same as: Flonase) No Longer Active 08/02/2015 [facility] Budesonide 0.25 MG/ML Inhalant Solution [Pulmicort] 0.5 mg, 2 mL, Route: NEB, Drug form: SUSP, BID, Dosing Weight 99.574, kg, Priority: NOW, Start date: 08/02/15 17:58:00, Duration: 30 day, Stop date: 09/01/15 17:00:00Notes: (Same As: Pulmicort) No Longer Active 08/02/2015 [facility] Coumadin 7.5 mg, 1 tab, [...] Waste Black (Same As: Coumadin) Inactive 08/02/2015 [facility] Albuterol 0.83 MG/ML Inhalant Solution 2.49 mg, 3 mL, Route: PO, Drug form: SOLN, RQ4H, Dosing Weight 99.574, kg, PRN Wheezing, Start date: 08/02/15 10:21:00, Duration: 30 day, Stop date: 09/01/15 10:20:00Notes: SEE RT DOCUMENTATION (Same as: Proventil) No Longer Active 08/02/2015 [facility] Coumadin 7.5 mg, 1 tab, Route: PO, Drug form: TAB, Q5PM, Start date: 08/01/15 17:00:00, Duration: 1 day, Stop date: 08/01/15 17:00:00Notes: Nurse to ensure documentation of patient education per anticoagulation policy. Avoid large intake of vitamin-K containing foods diet. WASTE: F/P - P Waste Black; E - P Waste Black (Same As: Coumadin) Inactive 08/01/2015 [facility] Warfarin 5 mg, Route: PO, Q5PM, Dosing Weight 99.574, kg, Start date: 08/01/15 17:00:00, Duration: 1 doses or times, Stop date: 08/01/15 17:00:00 Inactive 08/01/2015 [facility] Bumex 1 mg, 1 tab, Route: PO, Drug form: TAB, Daily, Dosing Weight 99.574, kg, Start date: 08/01/15 9:00:00, Duration: 30 day, Stop date: 08/30/15 9:00:00Notes: (Same As: Bumex) No Longer Active 08/01/2015 [facility] trazodone 50 mg oral tablet 25 mg, 0.5 tab, Route: PO, Drug form: TAB, ONCE, Dosing Weight 99.574, kg, Start date: 07/31/15 23:00:00, Stop date: 07/31/15 23:00:00Notes: (Same As: Desyrel) Inactive 08/01/2015 [facility] Trazodone 25 mg, 0.5 tab, Route: PO, Drug form: TAB, ONCE, Dosing Weight 99.574, kg, PRN Sleep, Start date: 07/31/15 21:49:00, Stop date: 07/31/15 21:49:00Notes: (Same As: Desyrel) Inactive 08/01/2015 [facility] Warfarin 5 mg, 1 tab, [...] Waste Black (Same As: Coumadin) Inactive 07/31/2015 [facility] Lactulose 20 gm, 30 ml, Route: PO, Drug Form: SYRP, Dosing Weight 99.574, kg, ONCE, PRN Constipation, Start date: 07/31/15 9:55:00, Stop date: 08/30/15 9:54:00Notes: (Same as:Chronulac) Inactive 07/31/2015 [facility] azithromycin 250 mg oral tablet 250 mg, 1 tab, Route: PO, Drug form: TAB, Daily, Dosing Weight 99.574, kg, Start date: 07/31/15 9:00:00, Duration: 4 day, Stop date: 08/03/15 9:00:00Notes: Take 1 hour before or 2 hours after meals. (Same As: Zithromax) No Longer Active 07/31/2015 [facility] Lidocaine Hydrochloride 10 MG/ML Injectable Solution 100 mg, 10 mL, Route: IV, Drug Form: INJ, Dosing Weight 99.574, kg, ONCE, Start date: 07/30/15 20:34:00, Stop date: 07/30/15 20:34:00Notes: (Same as: Xylocaine) Inactive 07/31/2015 [facility] Lidocaine Hydrochloride 20 MG/ML Injectable Solution 200 mg, 10 mL, Route: SUB-Q, Drug Form: INJ, Dosing Weight 99.574, kg, ONCE, Start date: 07/30/15 18:53:00, Stop date: 07/30/15 18:53:00Notes: Syringe (Same as: Xylocaine) Inactive 07/30/2015 [facility] azithromycin 500 mg oral tablet 500 mg, 2 tab, Route: PO, Drug form: TAB, Daily, Dosing Weight 99.574, kg, Priority: STAT, Start date: 07/30/15 18:45:00, Duration: 1 doses or times, Stop date: 07/30/15 18:45:00Notes: Take 1 hour before or 2 hours after meals. (Same As: Zithromax) Inactive 07/30/2015 [facility] Albuterol 0.833 MG/ML / Ipratropium [place] 0.167 MG/ML Inhalant Solution 3 ml, Route: NEB, Drug Form: SOLN, Dosing Weight 99.574, kg, RQ4H, STAT, Start date: 07/30/15 18:45:00, Duration: 30 day, Stop date: 08/29/15 15:00:00Notes: (Same as: Duoneb) No Longer Active 07/30/2015 [facility] Prednisone 60 mg, 3 tab, Route: PO, Drug form: TAB, Daily, Dosing Weight 99.574, kg, Priority: STAT, Start date: 07/30/15 18:45:00, Duration: 30 day, Stop date: 08/29/15 9:00:00Notes: Take with food. No Longer Active 07/30/2015 [facility] Magnesium Sulfate 2 gm, 50 mL, Route: IVPB, Drug form: INJ, ONCE, Dosing Weight 99.574, kg, Start date: 07/30/15 15:19:00, Duration: 2 hr, Stop date: 07/30/15 15:19:00Notes: WASTE: F/P - Sink; E - Municipal Trash Bin Inactive 07/30/2015 [facility] Tylenol 650 mg, 2 tab, Route: PO, Drug form: TAB, ONCE, Dosing Weight 99.574, kg, Start date: 07/30/15 1:27:00, Stop date: 07/30/15 1:27:00Notes: Do not exceed 4 gm/day. (Same as: Tylenol) Inactive 07/30/2015 [facility] Magnesium Sulfate 2 gm, 50 mL, Route: IVPB, Drug form: INJ, ONCE, Dosing Weight 99.574, kg, Start date: 07/29/15 10:51:00, Duration: 2 hr, Stop date: 07/29/15 10:51:00Notes: WASTE: F/P - Sink; E - Municipal Trash Bin Inactive 07/29/2015 [facility] Bumex 1 mg, 4 mL, Route: IVP, Drug form: INJ, Daily, Dosing Weight 99.574, kg, Priority: NOW, Start date: 07/29/15 10:17:00, Duration: 30 day, Stop date: 08/28/15 9:00:00Notes: (Same As: Bumex) No Longer Active 07/29/2015 [facility] ketoconazole topical 2% shampoo 1 appl, Route: SHAMPOO, QSat, Drug form: SHMP, Start date: 07/29/15 9:00:00, Duration: 30 day, Stop date: 08/26/15 9:00:00Notes: Non-Formulary Drug (Same as:Nizoral Topical) No Longer Active 07/29/2015 [facility] normal saline 0.9% IV 1,000 mL 1,000 mL, Rate: 50 ml/hr, Infuse over: 20 hr, Route: IVPB, Dosing Weight 99.574 kg, Total Volume: 1,000, Start date: 07/27/15 22:04:00, Duration: 30 day, Stop date: 08/26/15 22:03:00 No Longer Active 07/28/2015 [facility] hydrocortisone topical 2.5% cream 1 appl, Route: TOP, BID, Drug form: CRM, PRN Itching, Start date: 07/26/15 14:53:00, Duration: 30 day, Stop date: 08/25/15 14:52:00 No Longer Active 07/26/2015 [facility] Ketoconazole 20 MG/ML Medicated Shampoo 1 appl, Route: TOP, QWed, Drug form: SHMP, Start date: 07/26/15 14:50:00, Duration: 30 day, Stop date: 08/23/15 15:00:00Notes: Non-Formulary Drug (Same as:Nizoral Topical) No Longer Active 07/26/2015 [facility] tiotropium 0.018 MG/ACTUAT Inhalant Powder [Spiriva] 18 microgram, 1 inhalation, Route: INHALATION, Drug form: CAP, Daily, Dosing Weight 99.574, kg, Start date: 07/26/15 9:00:00, Duration: 30 day, Stop date: 08/24/15 9:00:00Notes: (Same As: Spiriva) No Longer Active 07/26/2015 [facility] Clonidine Hydrochloride 0.1 MG Oral Tablet 0.1 mg, 1 tab, Route: PO, Drug form: TAB, TID, Dosing Weight 99.574, kg, Start date: 07/22/15 17:00:00, Duration: 30 day, Stop date: 08/21/15 13:00:00Notes: (Same As: Catapres) No Longer Active 07/22/2015 [facility] Remeron 30 mg, 2 tab, Route: PO, Drug form: TAB, Bedtime, Dosing Weight 99.574, kg, Start date: 07/21/15 21:00:00, Duration: 30 day, Stop date: 08/19/15 21:00:00Notes: (Same as:Remeron) Inactive 07/22/2015 [facility] Mirtazapine 30 mg, 1 tab, Route: PO, Drug form: TAB, Bedtime, Dosing Weight 99.574, kg, Start date: 07/21/15 21:00:00, Duration: 30 day, Stop date: 09/18/15 21:00:00Notes: (Same as:Remeron) No Longer Active 07/22/2015 [facility] Hydrocortisone-Aloe 0.5% topical cream 1 appl, Route: TOP, BID, Drug form: CRM, Start date: 07/21/15 9:00:00, Duration: 30 day, Stop date: 08/19/15 17:00:00 No Longer Active 07/21/2015 [facility] Aspirin 81 mg, 1 tab, Route: PO, Drug form: ECTAB, Daily, Dosing Weight 99.574, kg, Start date: 07/21/15 9:00:00, Duration: 30 day, Stop date: 09/18/15 9:00:00Notes: Do not crush or chew. (Same As: Ecotrin) No Longer Active 07/21/2015 [facility] Clonidine Hydrochloride 0.1 MG Oral Tablet 0.1 mg, 1 tab, Route: PO, Drug form: TAB, QID, Dosing Weight 99.574, kg, Start date: 07/21/15 9:00:00, Duration: 30 day, Stop date: 08/19/15 21:00:00Notes: (Same As: Catapres) No Longer Active 07/21/2015 [facility] Folic Acid 1 mg, 1 tab, Route: PO, Drug form: TAB, Daily, Dosing Weight 99.574, kg, Start date: 07/21/15 9:00:00, Duration: 30 day, Stop date: 09/18/15 9:00:00Notes: (Same as: Folvite) No Longer Active 07/21/2015 [facility] Thiamine 100 mg, 1 tab, Route: PO, Drug form: TAB, Daily, Dosing Weight 99.574, kg, Start date: 07/21/15 9:00:00, Duration: 30 day, Stop date: 09/18/15 9:00:00Notes: (Same As: Vitamin B1) No Longer Active 07/21/2015 [facility] heparin additive 25,000 unit [18 unit/kg/hr] + Premix Diluent Dextrose 5% 500 mL 500 mL, Rate: 31.1 ml/hr, Infuse over: 16.1 hr, Route: IV, Dosing Weight 86.39 kg, Total Volume: 500 mL, Start date: 07/21/15 3:49:00, Duration: 30 day, Stop date: 08/20/15 3:48:00 No Longer Active 07/21/2015 [facility] Heparin 40 unit/kg Bolus (Heparin Dosing Weight) Route: IVP, PRN, 3,500 unit, 3.5 mL, Drug form: INJ, PRN, Heparin Protocol, Start date: 07/21/15 3:49:00 Stop date: 08/20/15 3:48:00, 30 day No Longer Active 07/21/2015 [facility] Heparin 80 unit/kg Bolus (Heparin Dosing Weight) Route: IVP, PRN, 6,900 unit, 6.9 mL, Drug form: INJ, PRN, Heparin Protocol, Start date: 07/21/15 3:49:00 Stop date: 08/20/15 3:48:00, 30 day No Longer Active 07/21/2015 [facility] tramadol hydrochloride 50 MG Oral Tablet 50 mg, 1 tab, Route: PO, Drug form: TAB, Q6H, Dosing Weight 99.574, kg, PRN Pain Score 6-10, Start date: 07/21/15 3:33:00, Duration: 30 day, Stop date: 08/20/15 3:32:00Notes: Not to exceed 400mg/day. (Same As: Ultram) No Longer Active 07/21/2015 [facility] Artificial Tears 2 drp, Route: BOTH EYES, PRN, Drug form: SOLN, PRN as needed for dry eyes, Start date: 07/21/15 3:33:00 CDT, Duration: 30 day, Stop date: 09/19/15 3:32:00 CDT No Longer Active 07/21/2015 [facility] Nitroglycerin 0.4 MG Sublingual Tablet 0.4 mg, 1 tab, Route: SL, Drug form: TAB, Q5Min, Dosing Weight 99.574, kg, PRN Chest Pain, Start date: 07/21/15 3:33:00 CDT, Duration: 30 day, Stop date: 09/19/15 3:32:00 CDTNotes: (Same as:Nitroquick, Nitrostat) "Do Not Crush" Sublingual tablet No Longer Active 07/21/2015 [facility] Clonazepam 0.5 mg, 1 tab, Route: PO, Drug form: TAB, Q6H, Dosing Weight 99.574, kg, PRN Anxiety, Start date: 07/21/15 3:33:00, Duration: 30 day, Stop date: 08/20/15 3:32:00Notes: (Same As: KlonoPIN) No Longer Active 07/21/2015 [facility] Tylenol PO, Q6H, PRN Pain Score 1-5, 0 Refill(s) No Longer Active 07/21/2015 [facility] Hydrocortisone-Aloe 0.5% topical cream 1 appl, TOP, BID, # 30 gm, 0 Refill(s) No Longer Active 07/21/2015 [facility] Aspirin 81 mg, PO, Daily, 0 Refill(s) Active 07/21/2015 [facility] 24 HR Nicotine 0.875 MG/HR Transdermal Patch =1 patch, Transdermal, Daily, 0 Refill(s) No Longer Active 07/21/2015 [facility] Clonidine Hydrochloride 0.1 MG Oral Tablet 0.1 mg=1 tab, PO, QID, 0 Refill(s) No Longer Active 07/21/2015 [facility] clonazePAM 0.5 mg oral tablet 0.5 mg=1 tab, PO, PRN, Prn anxiety q 6 hrs, 0 Refill(s) No Longer Active 07/21/2015 [facility] mirtazapine 15 mg oral tablet 15 mg=1 tab, PO, Bedtime, # 30 tab, 0 Refill(s) No Longer Active 07/21/2015 [facility] Alprazolam 0.25 MG Oral Tablet 0.25 mg=1 tab, PO, BID, PRN anxiety, stress, # 20 tab, 0 Refill(s) No Longer Active 07/21/2015 [facility] tramadol hydrochloride 50 MG Oral Tablet 50 mg=1 tab, PO, Q6H, PRN Pain, PRN for pain q 6 hrs, 0 Refill(s) No Longer Active 07/21/2015 [facility] Nitroglycerin 0.4 MG Sublingual Tablet 0.4 mg=1 tab, SL, Q5Min, PRN Chest Pain, Give up to 3 doses. Call 911 if pain persists., # 25 tab, 3 Refill(s) No Longer Active 07/21/2015 [facility] Artificial Tears BOTH EYES, PRN, 1 drop each eye q 4 hours, 0 Refill(s) No Longer Active 07/21/2015 [facility] Allergies, Adverse Reactions, Alerts No Known Medication Allergies Immunizations No Data Provided for This Section Results Order Name Results Value Reference Range Date Interpretation Comments Source HEMATOLOGY PT 14.0 12.0 - 14.7 11/29/2015 [facility] HEMATOLOGY INR 1.05 0.85 - 1.17 11/29/2015 [facility] LIPIDS CHD Risk 3.28 4.00 - 7.30 11/29/2015 [facility] LIPIDS Chol 210 <=199 mg/dL 11/29/2015 [facility] LIPIDS Trig 69 <=149 mg/dL 11/29/2015 [facility] LIPIDS HDL 64 >=61 mg/dL 11/29/2015 [facility] LIPIDS VLDL 14 11/29/2015 [facility] LIPIDS LDL (Calculated) 132 <=99 mg/dL 11/29/2015 [facility] CARDIAC ENZYMES Troponin-I <0.02 0.00 - 0.40 11/29/2015 [facility] CARDIAC ENZYMES Total CK 48 12 - 191 11/29/2015 [facility] CARDIAC ENZYMES Troponin-I <0.02 0.00 - 0.40 2015 [facility] CARDIAC ENZYMES Total CK 50 12 - 191 2015 [facility] CARDIAC ENZYMES CK MB Index 4.7 0.0 - 2.5 2015 [facility] CARDIAC ENZYMES BNP 92 <=100 pg/mL 2015 [facility] CARDIAC ENZYMES Troponin-I <0.02 0.00 - 0.40 2015 [facility] CARDIAC ENZYMES CK MB 2.7 0.5 - 3.6 2015 [facility] CARDIAC ENZYMES Total CK 57 12 - 191 2015 [facility] CHEM PANEL eGFR 96 2015 Result Comment: [...] Alk Phos 64 39 - 136 2015 [facility] CHEM PANEL Bili Total 0.3 0.2 - 1.3 2015 [facility]M PANEL CO2 29 24 - 32 2015 [facility] CHEM PANEL Chloride Lvl 106 95 - 109 2015 [facility] CHEM PANEL Potassium Lvl 4.0 3.5 - 5.1 2015 [facility] CHEM PANEL A/G Ratio 1.1 0.7 - 1.6 2015 [facility] CHEM PANEL Globulin 3.5 2.0 - 4.0 2015 [facility] CHEM PANEL B/C Ratio 13 6 - 25 2015 [facility] CHEM PANEL Sodium Lvl 141 135 - 145 2015 [facility] CHEM PANEL BUN 11 7 - 22 2015 [facility] CHEM PANEL Glucose Lvl 86 70 - 99 2015 [facility] CHEM PANEL Creatinine Lvl 0.86 0.50 - 1.40 2015 [facility] HEMATOLOGY Segs-Bands # 7.8 1.5 - 8.1 2015 [facility] HEMATOLOGY Basophils 0.9 0.0 - 1.0 2015 [facility] HEMATOLOGY Basophils # 0.1 0.0 - 0.2 2015 [facility] HEMATOLOGY Segs 67.3 45.0 - 75.0 2015 [facility] HEMATOLOGY Monocytes # 0.7 0.0 - 0.8 2015 [facility] HEMATOLOGY Lymphocytes # 3.0 1.0 - 5.5 2015 [facility] HEMATOLOGY Eosinophils 0.2 0.0 - 4.0 2015 [facility] HEMATOLOGY Lymphocytes 25.5 20.0 - 40.0 2015 [facility] [place] Monocytes 6.1 2.0 - 12.0 2015 [facility] [place] RBC 5.08 4.70 - 6.10 2015 [facility] [place] WBC 11.6 3.7 - 10.4 2015 [facility] [place] MPV 7.4 7.4 - 10.4 2015 [facility] [place] Hct 43.6 42.0 - 54.0 2015 [facility] [place] Hgb 14.0 14.0 - 18.0 2015 [facility] [place] MCV 85.7 80.0 - 94.0 2015 [facility] [place] MCH 27.5 27.0 - 31.0 2015 [facility] [place] RDW 15.0 11.5 - 14.5 2015 [facility] [place] Platelet 244 133 - 450 2015 [facility] [place] MCHC 32.1 32.0 - 36.0 2015 [facility] ELECTROLYTES AGAP 14.0 10.0 - 20.0 08/22/2015 [facility] ELECTROLYTES Calcium Lvl 8.3 8.5 - 10.5 08/22/2015 [facility] ELECTROLYTES CO2 26 24 - 32 08/22/2015 [facility] ELECTROLYTES eGFR 104 08/22/2015 Result Comment: [...] multiplied by the estimated BMI. [facility] ELECTROLYTES Chloride Lvl 107 95 - 109 08/22/2015 [facility] ELECTROLYTES Potassium Lvl 4.0 3.5 - 5.1 08/22/2015 [facility] ELECTROLYTES Glucose Lvl 84 70 - 99 08/22/2015 [facility] ELECTROLYTES Sodium Lvl 143 135 - 145 08/22/2015 [facility] ELECTROLYTES BUN 11 7 - 22 08/22/2015 [facility] ELECTROLYTES Creatinine Lvl 0.71 0.50 - 1.40 08/22/2015 [facility] HEMATOLOGY Basophils # 0.0 0.0 - 0.2 08/22/2015 [facility] HEMATOLOGY Eosinophils 1.2 0.0 - 4.0 08/22/2015 [facility] HEMATOLOGY Monocytes 9.5 2.0 - 12.0 08/22/2015 [facility] HEMATOLOGY Monocytes # 0.6 0.0 - 0.8 08/22/2015 [facility] [facility] HEMATOLOGY Segs 59.2 45.0 - 75.0 08/22/2015 [facility] HEMATOLOGY Lymphocytes 29.8 20.0 - 40.0 08/22/2015 [facility] HEMATOLOGY Basophils 0.3 0.0 - 1.0 08/22/2015 [facility] HEMATOLOGY Segs-Bands # 3.8 1.5 - 8.1 08/22/2015 [facility] HEMATOLOGY Eosinophils # 0.1 0.0 - 0.5 08/22/2015 [facility] HEMATOLOGY Lymphocytes # 1.9 1.0 - 5.5 08/22/2015 [facility] HEMATOLOGY RBC 4.51 4.70 - 6.10 08/22/2015 [facility] HEMATOLOGY WBC 6.5 3.7 - 10.4 08/22/2015 [facility] HEMATOLOGY MCV 87.9 80.0 - 94.0 08/22/2015 [facility] HEMATOLOGY Hct 39.6 42.0 - 54.0 08/22/2015 [facility] HEMATOLOGY Hgb 12.7 14.0 - 18.0 08/22/2015 [facility] HEMATOLOGY MCHC 32.1 32.0 - 36.0 08/22/2015 [facility] HEMATOLOGY MCH 28.2 27.0 - 31.0 08/22/2015 [facility] HEMATOLOGY MPV 8.1 7.4 - 10.4 08/22/2015 [facility] HEMATOLOGY Platelet 161 133 - 450 08/22/2015 [facility] HEMATOLOGY RDW 16.3 11.5 - 14.5 08/22/2015 [facility] CARDIAC ENZYMES Troponin-I <0.02 0.00 - 0.40 08/19/2015 [facility] CARDIAC ENZYMES Total CK 54 12 - 191 08/19/2015 [facility] CARDIAC ENZYMES Troponin-I <0.02 0.00 - 0.40 08/18/2015 [facility] CARDIAC ENZYMES Total CK 30 12 - 191 08/18/2015 [facility] CARDIAC ENZYMES Troponin-I <0.02 0.00 - 0.40 08/18/2015 [facility] HEMATOLOGY PT 24.6 12.0 - 14.7 08/18/2015 [facility] HEMATOLOGY INR 2.18 0.85 - 1.17 08/18/2015 [facility] BACTERIAL - SEROLOGY MRSA by PCR Negative (08/18/15 1:44 PM) 08/18/2015 [facility] CARDIAC ENZYMES CK MB Index 3.2 0.0 - 2.5 08/18/2015 [facility] CARDIAC ENZYMES CK MB 2.0 0.5 - 3.6 08/18/2015 [facility] CARDIAC ENZYMES Total CK 62 12 - 191 08/18/2015 [facility] CHEM PANEL Lipase Lvl 114 73 - 393 08/18/2015 [facility] CHEM PANEL eGFR 97 08/18/2015 Result [...] multiplied by the estimated BMI. [facility] CHEM PANEL AGAP 14.6 10.0 - 20.0 08/18/2015 [facility] CHEM PANEL CO2 23 24 - 32 08/18/2015 [facility] CHEM PANEL Calcium Lvl 8.7 8.5 - 10.5 08/18/2015 [facility] CHEM PANEL Globulin 3.6 2.0 - 4.0 08/18/2015 [facility] CHEM PANEL Total Protein 6.7 6.4 - 8.4 08/18/2015 [facility] CHEM PANEL Albumin Lvl 3.1 3.5 - 5.0 08/18/2015 [facility] CHEM PANEL AST 21 0 - 37 08/18/2015 [facility] CHEM PANEL ALT 36 0 - 65 08/18/2015 [facility] CHEM PANEL B/C Ratio 25 6 - 25 08/18/2015 [facility] CHEM PANEL Bili Total 0.4 0.2 - 1.3 08/18/2015 [facility] CHEM PANEL A/G Ratio 0.9 0.7 - 1.6 08/18/2015 [facility] CHEM PANEL Alk Phos 64 39 - 136 08/18/2015 [facility] CHEM PANEL Glucose Lvl 85 70 - 99 08/18/2015 [facility] CHEM PANEL BUN 21 7 - 22 08/18/2015 [facility] CHEM PANEL Creatinine Lvl 0.83 0.50 - 1.40 08/18/2015 [facility] CHEM PANEL Potassium Lvl 4.6 3.5 - 5.1 08/18/2015 [facility] CHEM PANEL Sodium Lvl 140 135 - 145 08/18/2015 [facility] CHEM PANEL Chloride Lvl 107 95 - 109 08/18/2015 [facility] HEMATOLOGY Basophils # 0.1 0.0 - 0.2 08/18/2015 [facility] HEMATOLOGY Eosinophils # 0.1 0.0 - 0.5 08/18/2015 [facility] HEMATOLOGY Monocytes # 1.0 0.0 - 0.8 08/18/2015 [facility] HEMATOLOGY Lymphocytes # 2.4 1.0 - 5.5 08/18/2015 [facility] HEMATOLOGY Eosinophils 0.5 0.0 - 4.0 08/18/2015 [facility] HEMATOLOGY Monocytes 7.3 2.0 - 12.0 08/18/2015 [facility] HEMATOLOGY Segs-Bands # 10.0 1.5 - 8.1 08/18/2015 [facility] HEMATOLOGY Basophils 0.4 0.0 - 1.0 08/18/2015 [facility] HEMATOLOGY Lymphocytes 18.0 20.0 - 40.0 08/18/2015 [facility] HEMATOLOGY Segs 73.8 45.0 - 75.0 08/18/2015 [facility] HEMATOLOGY Plt Morph Normal (08/18/15 9:22 AM) 08/18/2015 [facility] HEMATOLOGY RBC Morph Normal (08/18/15 9:22 AM) 08/18/2015 [facility] HEMATOLOGY Platelet 207 133 - 450 08/18/2015 Result Comment: Reviewed. [facility] HEMATOLOGY RBC 4.79 4.70 - 6.10 08/18/2015 [facility] HEMATOLOGY WBC 13.5 3.7 - 10.4 08/18/2015 [facility] HEMATOLOGY Hgb 13.7 14.0 - 18.0 08/18/2015 [facility] HEMATOLOGY Hct 42.1 42.0 - 54.0 08/18/2015 [facility] HEMATOLOGY RDW 16.1 11.5 - 14.5 08/18/2015 [facility] HEMATOLOGY MPV 7.7 7.4 - 10.4 08/18/2015 [facility] HEMATOLOGY MCH 28.5 27.0 - 31.0 08/18/2015 [facility] HEMATOLOGY MCV 87.9 80.0 - 94.0 08/18/2015 [facility] HEMATOLOGY MCHC 32.4 32.0 - 36.0 08/18/2015 [facility] ELECTROLYTES AGAP 11.7 10.0 - 20.0 08/17/2015 [facility] ELECTROLYTES eGFR 112 08/17/2015 Result Comment: The [...] should be multiplied by the estimated BMI. [facility] ELECTROLYTES Calcium Lvl 7.1 8.5 - 10.5 08/17/2015 [facility] ELECTROLYTES Creatinine Lvl 0.58 0.50 - 1.40 08/17/2015 [facility] ELECTROLYTES Sodium Lvl 146 135 - 145 08/17/2015 [facility] ELECTROLYTES BUN 13 7 - 22 08/17/2015 [facility] ELECTROLYTES Glucose Lvl 78 70 - 99 08/17/2015 [facility] ELECTROLYTES Chloride Lvl 115 95 - 109 08/17/2015 [facility] ELECTROLYTES CO2 23 24 - 32 08/17/2015 [facility] ELECTROLYTES Potassium Lvl 3.7 3.5 - 5.1 08/17/2015 [facility] HEMATOLOGY MCH 28.8 27.0 - 31.0 08/17/2015 [facility] HEMATOLOGY Hct 36.5 42.0 - 54.0 08/17/2015 [facility] HEMATOLOGY MCV 88.6 80.0 - 94.0 08/17/2015 [facility] HEMATOLOGY Hgb 11.8 14.0 - 18.0 08/17/2015 [facility] HEMATOLOGY Platelet 149 133 - 450 08/17/2015 [facility] HEMATOLOGY MCHC 32.5 32.0 - 36.0 08/17/2015 [facility] HEMATOLOGY RDW 15.4 11.5 - 14.5 08/17/2015 [facility] HEMATOLOGY MPV 7.2 7.4 - 10.4 08/17/2015 [facility] HEMATOLOGY WBC 8.5 3.7 - 10.4 08/17/2015 [facility] HEMATOLOGY RBC 4.12 4.70 - 6.10 08/17/2015 [facility] HEMATOLOGY Monocytes 7.1 2.0 - 12.0 08/17/2015 [facility] HEMATOLOGY Basophils 0.4 0.0 - 1.0 08/17/2015 [facility] HEMATOLOGY Segs-Bands # 5.8 1.5 - 8.1 08/17/2015 [facility] HEMATOLOGY Eosinophils 0.5 0.0 - 4.0 08/17/2015 [facility] HEMATOLOGY Lymphocytes 23.4 20.0 - 40.0 08/17/2015 [facility] HEMATOLOGY Segs 68.6 45.0 - 75.0 08/17/2015 [facility] HEMATOLOGY Lymphocytes # 2.0 1.0 - 5.5 08/17/2015 [facility] HEMATOLOGY Monocytes # 0.6 0.0 - 0.8 08/17/2015 [facility] HEMATOLOGY INR 2.09 0.85 - 1.17 08/17/2015 [facility] HEMATOLOGY PT 23.8 12.0 - 14.7 08/17/2015 [facility] HEMATOLOGY INR 1.84 0.85 - 1.17 08/16/2015 [facility] HEMATOLOGY PT 21.6 12.0 - 14.7 08/16/2015 [facility] HEMATOLOGY INR 2.24 0.85 - 1.17 08/15/2015 [facility] HEMATOLOGY PT 25.1 12.0 - 14.7 08/15/2015 [facility] ELECTROLYTES Potassium Lvl 4.2 3.5 - 5.1 08/14/2015 [facility] ELECTROLYTES Chloride Lvl 107 95 - 109 08/14/2015 [facility] ELECTROLYTES Creatinine Lvl 0.93 0.50 - 1.40 08/14/2015 [facility] ELECTROLYTES Sodium Lvl 140 135 - 145 08/14/2015 [facility] ELECTROLYTES BUN 27 7 - 22 08/14/2015 [facility] ELECTROLYTES Calcium Lvl 8.5 8.5 - 10.5 08/14/2015 [facility] ELECTROLYTES CO2 26 24 - 32 08/14/2015 [facility] ELECTROLYTES eGFR 91 08/14/2015 Result Comment: The [...] should be multiplied by the estimated BMI. [facility] ELECTROLYTES Glucose Lvl 84 70 - 99 08/14/2015 [facility] ELECTROLYTES AGAP 11.2 10.0 - 20.0 08/14/2015 [facility] CHEM PANEL Magnesium Lvl 2.2 1.8 - 2.4 08/10/2015 [facility] CHEM PANEL eGFR 102 08/10/2015 Result Comment: [...] should be multiplied by the estimated BMI. [facility] CHEM PANEL Calcium Lvl 8.8 8.5 - 10.5 08/10/2015 [facility] CHEM PANEL CO2 28 24 - 32 08/10/2015 [facility] CHEM PANEL Chloride Lvl 106 95 - 109 08/10/2015 [facility] CHEM PANEL Potassium Lvl 4.2 3.5 - 5.1 08/10/2015 [facility] CHEM PANEL Sodium Lvl 140 135 - 145 08/10/2015 [facility] CHEM PANEL BUN 20 7 - 22 08/10/2015 [facility] CHEM PANEL Creatinine Lvl 0.74 0.50 - 1.40 08/10/2015 [facility] CHEM PANEL Glucose Lvl 78 70 - 99 08/10/2015 [facility] CHEM PANEL AGAP 10.2 10.0 - 20.0 08/10/2015 [facility] CHEM PANEL Phosphorus 3.7 2.5 - 4.5 08/10/2015 [facility] HEMATOLOGY RBC Morph Normal (08/10/15 5:29 AM) 08/10/2015 [facility] HEMATOLOGY Plt Morph Normal (08/10/15 5:29 AM) 08/10/2015 [facility] HEMATOLOGY Atypical Lymphs 0.0 <=0.0 % 08/10/2015 [facility] HEMATOLOGY Myelocytes 1.0 <=0.0 % 08/10/2015 [facility] HEMATOLOGY Metamyelocytes 1.0 0.0 - 1.0 08/10/2015 [facility] HEMATOLOGY Lymphocytes 24.0 20.0 - 40.0 08/10/2015 [facility] HEMATOLOGY Monocytes 6.0 2.0 - 12.0 08/10/2015 [facility] HEMATOLOGY Segs-Bands # 8.4 1.5 - 8.1 08/10/2015 [facility] HEMATOLOGY Bands 1.0 0.0 - 11.0 08/10/2015 [facility] HEMATOLOGY Monocytes # 0.7 0.0 - 0.8 08/10/2015 [facility] HEMATOLOGY Lymphocytes # 3.0 1.0 - 5.5 08/10/2015 [facility] HEMATOLOGY Segs 67.0 45.0 - 75.0 08/10/2015 [facility] HEMATOLOGY WBC 12.3 3.7 - 10.4 08/10/2015 [facility] HEMATOLOGY RBC 4.82 4.70 - 6.10 08/10/2015 [facility] HEMATOLOGY Hgb 13.6 14.0 - 18.0 08/10/2015 [facility] HEMATOLOGY MCH 28.3 27.0 - 31.0 08/10/2015 [facility] HEMATOLOGY Platelet 227 133 - 450 08/10/2015 [facility] HEMATOLOGY MCHC 32.4 32.0 - 36.0 08/10/2015 [facility] HEMATOLOGY RDW 15.3 11.5 - 14.5 08/10/2015 [facility] HEMATOLOGY MCV 87.2 80.0 - 94.0 08/10/2015 [facility] HEMATOLOGY Hct 42.0 42.0 - 54.0 08/10/2015 [facility] HEMATOLOGY MPV 7.2 7.4 - 10.4 08/10/2015 [facility] CHEM PANEL Magnesium Lvl 2.1 1.8 - 2.4 08/09/2015 [facility] CHEM PANEL Phosphorus 3.9 2.5 - 4.5 08/09/2015 [facility] HEMATOLOGY Myelocytes 1.0 <=0.0 % 08/09/2015 [facility] HEMATOLOGY RBC Morph Normal (08/09/15 4:34 AM) 08/09/2015 [facility] HEMATOLOGY Atypical Lymphs 1.0 <=0.0 % 08/09/2015 [facility] HEMATOLOGY Monocytes # 0.4 0.0 - 0.8 08/09/2015 [facility] HEMATOLOGY Segs-Bands # 7.7 1.5 - 8.1 08/09/2015 [facility] HEMATOLOGY Lymphocytes # 2.8 1.0 - 5.5 08/09/2015 [facility] HEMATOLOGY Plt Morph Normal (08/09/15 4:34 AM) 08/09/2015 [facility] HEMATOLOGY Lymphocytes 24.0 20.0 - 40.0 08/09/2015 [facility] HEMATOLOGY Monocytes 4.0 2.0 - 12.0 08/09/2015 [facility] HEMATOLOGY Segs 65.0 45.0 - 75.0 08/09/2015 [facility] HEMATOLOGY Bands 4.0 0.0 - 11.0 08/09/2015 [facility] HEMATOLOGY Metamyelocytes 1.0 0.0 - 1.0 08/09/2015 [facility] HEMATOLOGY MCV 88.1 80.0 - 94.0 08/09/2015 [facility] HEMATOLOGY MCHC 32.6 32.0 - 36.0 08/09/2015 [facility] HEMATOLOGY MCH 28.7 27.0 - 31.0 08/09/2015 [facility] HEMATOLOGY Hct 42.6 42.0 - 54.0 08/09/2015 [facility] HEMATOLOGY Hgb 13.9 14.0 - 18.0 08/09/2015 [facility] HEMATOLOGY MPV 7.4 7.4 - 10.4 08/09/2015 [facility] HEMATOLOGY RDW 15.4 11.5 - 14.5 08/09/2015 [facility] HEMATOLOGY Platelet 205 133 - 450 08/09/2015 [facility] HEMATOLOGY RBC 4.83 4.70 - 6.10 08/09/2015 [facility] HEMATOLOGY WBC 11.1 3.7 - 10.4 08/09/2015 [facility] CHEM PANEL Magnesium Lvl 2.2 1.8 - 2.4 08/08/2015 [facility] CHEM PANEL Phosphorus 4.1 2.5 - 4.5 08/08/2015 [facility] HEMATOLOGY Eosinophils # 0.2 0.0 - 0.5 08/08/2015 [facility] HEMATOLOGY Basophils # 0.1 0.0 - 0.2 08/08/2015 [facility] HEMATOLOGY Plt Morph Normal (08/08/15 3:55 AM) 08/08/2015 [facility] HEMATOLOGY RBC Morph Normal (08/08/15 3:55 AM) 08/08/2015 [facility] HEMATOLOGY Basophils 0.5 0.0 - 1.0 08/08/2015 [facility] HEMATOLOGY Eosinophils 1.2 0.0 - 4.0 08/08/2015 [facility] HEMATOLOGY Basophils 0.7 0.0 - 1.0 08/07/2015 [facility] HEMATOLOGY Eosinophils 0.4 0.0 - 4.0 08/07/2015 [facility] HEMATOLOGY Basophils # 0.1 0.0 - 0.2 08/07/2015 [facility] HEMATOLOGY PTT 69.5 22.9 - 35.8 08/06/2015 [facility] HEMATOLOGY Toxic Gran See Note 1 (08/06/15 3:33 AM) None Seen 08/06/2015 Result Comment: Slight [facility] HEMATOLOGY Atypical Lymphs 0.0 <=0.0 % 08/06/2015 [facility] HEMATOLOGY Bands 1.0 0.0 - 11.0 08/06/2015 [facility] HEMATOLOGY PTT 64.0 22.9 - 35.8 08/05/2015 [facility] HEMATOLOGY Toxic Gran slight 08/05/2015 [facility] HEMATOLOGY PTT 68.9 22.9 - 35.8 08/05/2015 [facility] HEMATOLOGY Anisocyte 1+ *ABN* (07/31/15 10:41 AM) None Seen 07/31/2015 [facility] HEMATOLOGY Basophils # 0.2 0.0 - 0.2 07/31/2015 [facility] CHEM PANEL Lactic Acid Lvl 1.0 0.5 - 2.2 07/30/2015 [facility] HEMATOLOGY POC Activated Clotting Time 206 07/28/2015 [facility] HEMATOLOGY Eosinophils # 0.1 0.0 - 0.5 07/28/2015 [facility] HEMATOLOGY Eosinophils # 0.1 0.0 - 0.5 07/27/2015 [facility] LIPIDS HDL 45 >=61 mg/dL 07/25/2015 [facility] LIPIDS Chol 162 <=199 mg/dL 07/25/2015 [facility] LIPIDS Trig 74 <=149 mg/dL 07/25/2015 [facility] LIPIDS VLDL 15 07/25/2015 [facility] LIPIDS LDL (Calculated) 102 <=99 mg/dL 07/25/2015 [facility] LIPIDS CHD Risk 3.60 4.00 - 7.30 07/25/2015 [facility] CARDIAC ENZYMES Troponin-I 0.09 0.00 - 0.40 07/21/2015 [facility] CARDIAC ENZYMES Troponin-T 0.035 0.000 - 0.100 07/21/2015 [facility] CARDIAC ENZYMES Total CK 36 12 - 191 07/21/2015 [facility] CARDIAC ENZYMES Troponin-I 0.10 0.00 - 0.40 07/21/2015 [facility] CARDIAC ENZYMES Total CK 32 12 - 191 07/21/2015 [facility] CARDIAC ENZYMES BNP 158 <=100 pg/mL 07/21/2015 [facility] CHEM PANEL A/G Ratio 0.9 0.7 - 1.6 07/21/2015 [facility] CHEM PANEL Bili Total 0.8 0.2 - 1.3 07/21/2015 [facility] CHEM PANEL Alk Phos 59 39 - 136 07/21/2015 [facility] CHEM PANEL Globulin 3.3 2.0 - 4.0 07/21/2015 [facility] CHEM PANEL B/C Ratio 14 6 - 25 07/21/2015 [facility] CHEM PANEL AST 6 0 - 37 07/21/2015 [facility] CHEM PANEL ALT 15 0 - 65 07/21/2015 [facility] CHEM PANEL Albumin Lvl 2.9 3.5 - 5.0 07/21/2015 [facility] CHEM PANEL Total Protein 6.2 6.4 - 8.4 07/21/2015 [facility] CHEM PANEL Amylase Lvl 46 25 - 115 07/21/2015 [facility] CHEM PANEL Lipase Lvl 85 73 - 393 07/21/2015 [facility] SPECIAL CHEMISTRY Hgb A1C 5.4 <=5.6 % 07/21/2015 [facility] Pathology Reports No Data Provided for This Section Diagnostic Reports Report Value Date Source Chest CTA Patient Name: ALETHA LOWERY : 1955; Age: 59 years Male MR: [id number] Study: Chest CTA 2015 3:09 PM CDT [...] 2015 6:09 PM CDT. SL: ANGELY 2015 [facility] 1view DX Study: Chest 1view DX Clinical Indication: Dyspnea Comparison: Chest x-ray from 08/21/2015 FINDINGS: Left sided dual-chamber pacemaker is stable. Cardiac silhouette is normal in size. Small right pleural effusion is seen. There is no pneumothorax. The osseous structures are unremarkable. IMPRESSION: Small right pleural effusion SL: [id number] 2015 [facility] 1view DX Patient Name: ALETHA LOWERY. : 1955; Age: 59 years y/o; Male. MR: [id number]. Ordering Physician: Jocy Bailon MD. PORTABLE CHEST [...] Left lung is unremarkable. SL: [id number] 08/21/2015 [facility] Knee 1-2 Views Bilateral DX Two-view [...] knee joint effusion suspected. SL: WR1-M 08/20/2015 [facility] Brain wo contrast CT Patient Name: ALETHA LOWERY : 1955; Age: 59 years; Gender: Male MR: [id number] Ordering Physician: Piter Leslie MD PROCEDURE: CT head without contrast INDICATION: Pain Post Trauma. Fall with trauma to the frontal area. Patient is on blood thinners. TECHNIQUE: CT images were obtained from the foramen magnum to the vertex without the use of intravenous contrast on a multidetector CT. Total CT radiation dose: VJG=4112 mGy-cm COMPARISON: None. FINDINGS: No evidence for [...] 3. Possible mild right maxillary sinusitis. SL: [id number] 08/20/2015 [facility] Chest 1view DX CHEST RADIOGRAPH ONE [...] and/or thickening. 3. Enlarged cardiac silhouette. SL: [id number] 08/18/2015 [facility] Chest 1view DX EXAM: XR CHEST 1 VIEW DATE: 08/06/2015 8:49 AM CDT INDICATION: Coughing. FINDINGS: Comparison is made to August 01. The cardiomediastinal silhouette, life-support lines and tubes are stable. The lungs are clear of consolidation. There are calcified granulomas in the right lower lobe. No pleural effusions are identified. IMPRESSION: No acute abnormality. 08/06/2015 [facility] Chest 1view DX EXAM: XR CHEST 1 VIEW DATE: 08/02/2015 10:20 AM CDT INDICATION: Abnormal chest sounds COMPARISON: Chest x-ray from 07/30/2015 TECHNIQUE: AP chest FINDINGS: Stable right arm PICC. Stable left implantable cardiac defibrillator Stable cardiomediastinal silhouette. Small right pleural effusion versus pleural thickening. No new pleural or parenchymal based abnormalities. IMPRESSION: No significant change. 08/02/2015 [facility] Chest 1view DX EXAM: XR CHEST 1 VIEW DATE: 07/30/2015 7:41 PM CDT INDICATION: Dyspnea COMPARISON: Yesterday TECHNIQUE: AP chest FINDINGS: Stable right arm PICC. Stable left implantable cardiac defibrillator Stable cardiomediastinal silhouette. Small right pleural effusion versus pleural thickening. No new pleural or parenchymal based abnormalities. IMPRESSION: No significant changes compared to yesterday. 07/30/2015 [facility] HVI VAS Venous Lower Ext [...] no evidence of deep venous thrombosis. 07/29/2015 [facility] Chest 1view DX EXAM: XR CHEST 1 VIEW DATE: 07/29/2015 9:47 AM CDT INDICATION: Shortness of Breath COMPARISON: 07/21/2015 TECHNIQUE: AP chest FINDINGS: Stable right arm PICC. Stable left implantable cardiac defibrillator Stable cardiomediastinal silhouette. Small right pleural effusion. No new pleural or parenchymal based abnormalities. IMPRESSION: No significant changes compared to yesterday at 2:24 AM 07/29/2015 [facility] HVI VAS Arterial Extracranial Doppler Bi INDICATION: [...] was noted in the vertebral arteries. 07/21/2015 [facility] Chest 1view DX EXAM: XR [...] tip overlies the right brachiocephalic vein. 07/21/2015 [facility] Consultation Notes No Data Provided for This Section Discharge Summaries No Data Provided for This Section History and Physicals No Data Provided for This Section Vital Signs Vital Sign Value Date Comments Source Systolic (mm Hg) 109 12/02/2015 [facility] Diastolic (mm Hg) 76 12/02/2015 [facility] Respitory Rate 22 12/02/2015 [facility] Heart Rate 87 12/02/2015 [facility] Temperature Oral (F) 97.6 F 12/02/2015 [facility] Systolic (mm Hg) 122 12/02/2015 [facility] Diastolic (mm Hg) 82 12/02/2015 [facility] Heart Rate 74 12/02/2015 [facility] Temperature Oral (F) 97.3 F 12/02/2015 [facility] Respitory Rate 21 12/02/2015 [facility] Temperature Oral (F) 97.3 F 12/02/2015 [facility] Heart Rate 73 12/02/2015 [facility] Systolic (mm Hg) 104 12/02/2015 [facility] Diastolic (mm Hg) 67 12/02/2015 [facility] Respitory Rate 16 12/02/2015 [facility] Height 182.88 cm 2015 [facility] BMI Calculated 31.53 2015 [facility] Weight 105.455 2015 [facility] Weight 113.636 2015 [facility] Height 182.88 cm 2015 [facility] BMI Calculated 33.98 2015 [facility] Respitory Rate 20 08/23/2015 [facility] Heart Rate 83 08/23/2015 [facility] Temperature Oral (F) 97.4 F 08/23/2015 [facility] Systolic (mm Hg) 107 08/23/2015 [facility] Diastolic (mm Hg) 53 08/23/2015 [facility] Temperature Oral (F) 97.7 F 08/23/2015 [facility] Heart Rate 82 08/23/2015 [facility] Respitory Rate 20 08/23/2015 [facility] Systolic (mm Hg) 130 08/23/2015 [facility] Diastolic (mm Hg) 84 08/23/2015 [facility] Respitory Rate 20 08/23/2015 [facility] Temperature Oral (F) 97.3 F 08/23/2015 [facility] Systolic (mm Hg) 128 08/23/2015 [facility] Diastolic (mm Hg) 85 08/23/2015 [facility] Height 182.88 cm 08/18/2015 [facility] Weight 95 08/18/2015 [facility] BMI Calculated 28.4 08/18/2015 [facility] Heart Rate 83 08/18/2015 [facility] Systolic (mm Hg) 125 08/18/2015 [facility] Diastolic (mm Hg) 82 08/18/2015 [facility] Heart Rate 105 08/18/2015 [facility] Respitory Rate 18 08/18/2015 [facility] Temperature Oral (F) 97.9 F 08/18/2015 [facility] Heart Rate 83 08/18/2015 [facility] Respitory Rate 18 08/18/2015 [facility] Systolic (mm Hg) 91 08/18/2015 [facility] Diastolic (mm Hg) 67 08/18/2015 [facility] Temperature Oral (F) 97.7 F 08/17/2015 [facility] Systolic (mm Hg) 102 08/17/2015 [facility] Diastolic (mm Hg) 71 08/17/2015 [facility] Respitory Rate 18 08/17/2015 [facility] Heart Rate 81 08/17/2015 [facility] Temperature Oral (F) 97.7 F 08/17/2015 [facility] BMI Calculated 29.77 07/21/2015 [facility] Weight 99.574 07/21/2015 [facility] Height 182.88 cm 07/21/2015 [facility] Encounters Location Location Details Encounter Type Encounter Number Reason For Visit Attending Provider ADM Date DC Date Status Source [facility] Inpatient [id number] Arie Chung 07/21/2015 08/18/2015 [facility] [facility] [place] [facility] Observation Patient [id number] Elham Bryson 08/18/2015 08/23/2015 [facility] Inpatient [id number] Octavio Dc Jr 2015 12/02/2015 [facility] Procedures Procedure Code Date Perfomer Comments Source Insertion of cardiac pacemaker [id number] [facility] Assessment and Plan Assessment and Plan Date Source Extracted from:Title: Clinical Document Author: Jana Monson MD Date: 12/02/15 [facility] Progress Note Impression: Prior PE [...] CTA of the chest done at the [facility]. Those records would be helpful, to determineif [...] discharge tomorrow. Will likely need SW assistance. [facility] Providers Hospitalist Service is primary. Call with questions. 12/02/2015 BALDO Rosales Extracted from:Title: Discharge Summary Author: Jocy Bailon MD Date: 08/23/15 <Discharge Summary> Attending: Elham Bryson MD Service: Internal Medicine Code status: None Specified=FULL CODE Reason for Admission: CHEST PAIN, BRADYCARDIA, SUICIDAL IDEATION Working DRG: None Documented Isolation: None Documented Consulting Physicians: Humberto Beavers MD Office: MSO: [id number] Service: Cardiology Piter Leslie MD Office: MSO: [id number] Service: Medicine Jocy Bailon MD Office: MSO: [id number] Service: Medicine Elham Bryson MD Office: MSO: [id number] Service: Medicine Admission Date: 08/18/2015 Discharge Date: [...] dx iwth PE, who was sent from [facility] for an episode of bradycardia and [...] PCP in 1 week after discharge from [facility] I have spent 35 min with the patient and in coordinating discharge. Extracted from:Title: [facility] Cardiology Consult Note Author: Rosemary Vasquez MD [...] consult. Patient okay to discharge back [facility]. He should follow-up with PCP or [facility] upon discharge. 08/23/2015 [facility] Extracted from:Title: Clinical Document Author: Arie Chung MD Date: 08/16/15 Acute Care Service Line Progress Note Pager#[phone] Attending: Arie Chung Subjective: complains of back [...] alcohol abuse and COPD who presented to [facility] with chest pain as an [...] would otherwise require daily venous sticks. 08/18/2015 [facility] Plan of Care No Data Provided for [...] Yes; Reg Smoking Cessation Counseling No 12/01/2015 [facility] Social History TypeResponse Alcohol Current, Type Beer. [...] Yes; Reg Smoking Cessation Counseling No 07/21/2015 [facility] Social History TypeResponse Alcohol Current, Type [...] Yes; Reg Smoking Cessation Counseling No 07/21/2015 [facility] Family History No Data Provided for This Section Advance Directives No Data Provided for This Section Functional Status No Data Provided for This Section
--- OUTSIDE RECORDS SUMMARY | 2018-12-16 07:02 | XMS REPORT | Continuity of Care Document ---
Author Author [employer] Organization [employer] Address Unknown Phone Unavailable Care Team Providers Care Supervisor [employer] Name Role Phone [employer] Unavailable Unavailable Problems Problem Status Onset Date Classification Date Reported Comments Source SOB / CHEST PAIN Active 2015 [facility] BRONCHITIS, CHEST PAIN Active 2015 [facility] WEAK Active 08/18/2015 [facility] CHEST PAIN, BRADYCARDIA, SUICIDAL IDEATI Active 08/18/2015 [facility] DEBILITATED Active 08/07/2015 [facility] DEBILITY Active 08/07/2015 [facility] LEFT CORONARY ANOMALY Active 07/20/2015 [facility] Anxiety Active Problem 12/05/2015 [facility] COPD Active Problem 12/05/2015 [facility] Depressed Active Problem 12/05/2015 [facility] Hypertension Active Problem 12/05/2015 [facility] Major depressive disorder Active Problem 12/05/2015 [facility] Pacemaker Active Problem 12/05/2015 [facility] Psychomotor retardation Active Problem 12/05/2015 [facility] Pulmonary embolism Resolved Problem 12/05/2015 [facility] Tobacco abuse Active Problem 12/05/2015 [facility] Unstable angina Active Problem 12/05/2015 [facility] OTHER SPECIFIED CONGENITAL DEFORMITIES Active [facility] OTHER MALAISE Active [facility] BRONCHITIS, NOT SPECIFIED ACUTE OR CH Active [facility] Medications Medication Details Route Status Patient Instructions Ordering Provider Order Date Source rivaroxaban 20 mg oral tablet 20 mg=1 tab, PO, QPM, 0 Refill(s) Active 12/02/2015 [facility] lamoTRIgine 25 mg oral tablet 25 mg=1 tab, PO, BID, 0 Refill(s) Active 12/02/2015 [facility] QUEtiapine 25 mg oral tablet 25 mg=1 tab, PO, Q4H, PRN Anxiety, 0 Refill(s) Active 12/02/2015 [facility] Seroquel 25 mg, 1 tab, Route: PO, Drug form: TAB, TID, Dosing Weight 105.455, kg, Start date: 12/02/15 13:00:00 CDT, Duration: 30 day, Stop date: 01/01/16 9:00:00 CDTNotes: (Same as: SEROquel) Inactive 12/02/2015 [facility] Seroquel 25 mg, 1 tab, Route: PO, Drug form: TAB, Q4H, Dosing Weight 105.455, kg, PRN Anxiety, Start date: 12/02/15 12:54:00 CDT, Duration: 30 day, Stop date: 01/01/16 12:53:00 CDTNotes: (Same as: SEROquel) Inactive 12/02/2015 [facility] lamoTRIgine 25 mg oral tablet 25 mg, 1 tab, Route: PO, Drug form: TAB, BID, Dosing Weight 105.455, kg, Priority: NOW, Start date: 12/02/15 11:31:00 CDT, Duration: 30 day, Stop date: 01/01/16 9:00:00 CDTNotes: (Same as:LaMICtal) Inactive 12/02/2015 [facility] Mirtazapine 30 mg, 2 tab, Route: PO, Drug form: TAB, Bedtime, Dosing Weight 105.455, kg, Start date: 11/29/15 21:00:00 CDT, Duration: 30 day, Stop date: 12/28/15 21:00:00 CDTNotes: (Same as:Remeron) No Longer Active 11/30/2015 [facility] Seroquel 50 mg, 2 tab, Route: PO, Drug form: TAB, Bedtime, Dosing Weight 105.455, kg, Start date: 11/29/15 21:00:00 CDT, Stop date: 12/28/15 21:00:00 CDTNotes: (Same as: SEROquel) No Longer Active 11/30/2015 [facility] Xarelto 20 mg, 1 tab, Route: PO, Drug form: TAB, QPM, Dosing Weight 105.455, kg, Start date: 11/29/15 20:00:00 CDT, Duration: 30 day, Stop date: 12/28/15 20:00:00 CDTNotes: (Same as: Xarelto) Administer with food No Longer Active 11/30/2015 [facility] Seroquel 25 mg, 1 tab, Route: PO, Drug form: TAB, Q6H, Dosing Weight 105.455, kg, PRN Agitation, Start date: 11/29/15 19:38:00 CDT, Duration: 30 day, Stop date: 12/29/15 19:37:00 CDTNotes: (Same as: SEROquel) No Longer Active 11/30/2015 [facility] Acetaminophen 300 MG / Codeine Phosphate 30 MG Oral Tablet [Tylenol with Codeine #3] 1 tab, Route: PO, Drug Form: TAB, Dosing Weight 105.455, kg, Q6H, PRN Pain Score 6-10, Start date: 11/29/15 18:44:00 CDT, Duration: 30 day, Stop date: 12/29/15 18:43:00 CDTNotes: Do not exceed 4gm/day of acetaminophen. (Same as: Tylenol with Codeine # 3) No Longer Active 11/29/2015 [facility] POLYETHYLENE GLYCOL 3350 17 gm, 1 pkt, Route: PO, Drug form: PWDR, BID, Dosing Weight 105.455, kg, Start date: 11/29/15 9:00:00 CDT, Duration: 30 day, Stop date: 12/28/15 17:00:00 CDTNotes: Dissolve in 8 oz of water or juice. (Same as: Miralax) No Longer Active 11/29/2015 [facility] Folic Acid 1 mg, 1 tab, Route: PO, Drug form: TAB, Daily, Dosing Weight 105.455, kg, Start date: 11/29/15 9:00:00 CDT, Duration: 30 day, Stop date: 12/28/15 9:00:00 CDTNotes: (Same as: Folvite) No Longer Active 11/29/2015 [facility] Flonase 0.05 mg/inh nasal spray 2 spray, Route: Each Affected Nostril, Drug Form: SPRY, Dosing Weight 105.455, kg, Daily, Start date: 11/29/15 9:00:00 CDT, Duration: 30 day, Stop date: 12/28/15 9:00:00 CDTNotes: (Same as: Flonase) No Longer Active 11/29/2015 [facility] carvedilol 3.125 mg, 1 tab, Route: PO, Drug form: TAB, Q12H, Dosing Weight 105.455, kg, Start date: 11/29/15 9:00:00 CDT, Duration: 30 day, Stop date: 12/28/15 21:00:00 CDTNotes: Give with food. (Same As: Coreg) No Longer Active 11/29/2015 [facility] Budesonide 1 inhalation, Route: INHALATION, Drug form: PWDR, BID, Dosing Weight 105.455, kg, Start date: 11/29/15 9:00:00 CDT, Duration: 30 day, Stop date: 12/28/15 17:00:00 CDTNotes: Same as Pulmicort Flexhaler Non-Formulary Drug No Longer Active 11/29/2015 [facility] Aspirin 81 mg, 1 tab, Route: PO, Drug form: ECTAB, Daily, Dosing Weight 105.455, kg, Start date: 11/29/15 9:00:00 CDT, Duration: 30 day, Stop date: 12/28/15 9:00:00 CDTNotes: Do not crush or chew. (Same As: Ecotrin) No Longer Active 11/29/2015 [facility] Thiamine 100 mg, 1 tab, Route: PO, Drug form: TAB, Daily, Dosing Weight 105.455, kg, Start date: 11/29/15 9:00:00 CDT, Duration: 30 day, Stop date: 12/28/15 9:00:00 CDTNotes: (Same As: Vitamin B1) No Longer Active 11/29/2015 [facility] Nitroglycerin 0.4 MG Sublingual Tablet 0.4 mg, 1 tab, Route: SL, Drug form: TAB, Q5Min, Dosing Weight 105.455, kg, PRN Chest Pain, Start date: 11/28/15 21:08:00 CDT, Duration: 30 day, Stop date: 12/28/15 21:07:00 CDT Inactive 11/29/2015 [facility] Calcium Carbonate 500 MG Chewable Tablet 500 mg, 1 tab, Route: CHEW, Drug form: CHEWTAB, TID, Dosing Weight 105.455, kg, PRN Indigestion, Start date: 11/28/15 21:07:00 CDT, Duration: 30 day, Stop date: 12/28/15 21:06:00 CDTNotes: (Same As: César) Calcium Carbonate 500 il=667 mg elemental calcium Dose= mg calcium carbonate ( mg elemental calcium) No Longer Active 11/29/2015 [facility] 200 ACTUAT Albuterol 0.09 MG/ACTUAT Metered Dose Inhaler 2 puff, Route: INHALATION, Drug Form: AERO/A, Dosing Weight 105.455, kg, QID, PRN Wheezing, Start date: 11/28/15 21:07:00 CDT, Duration: 30 day, Stop date: 12/28/15 21:06:00 CDTNotes: Albuterol 90 microgram/inh 8gm HFA WASTE: Aerosol - Return to Pharmacy Same as: Violette Proventil No Longer Active 11/29/2015 [facility] Saline Flush 0.9% 10 ml, Route: IVP, Drug Form: INJ, Dosing Weight 113.636, kg, Q12H, Start date: 11/28/15 21:00:00 CDT, Duration: 30 day, Stop date: 12/28/15 9:00:00 CDTNotes: (Same as: BD Posiflush) No Longer Active 11/29/2015 [facility] Albuterol 0.83 MG/ML Inhalant Solution 2.5 mg, 3.01 mL, Route: INHALATION, Drug form: SOLN, RQ6H, Dosing Weight 113.636, kg, Start date: 11/28/15 20:00:00 CDT, Duration: 30 day, Stop date: 12/28/15 14:00:00 CDTNotes: SEE RT DOCUMENTATION (Same as: Proventil) No Longer Active 11/29/2015 [facility] Lovenox 105.455 mg, 0.7 mL, Route: SUB-Q, Drug form: INJ, [id number], Dosing Weight 105.455, kg, Start date: 11/28/15 17:00:00 CDT, Duration: 30 day, Stop date: 12/28/15 9:00:00 CDTNotes: Nurse to ensure document ation of patient education per anticoagulation policy. (Same as: Lovenox) No Longer Active 2015 [facility] Alprazolam 1 MG Oral Tablet [Xanax] 1 mg, 1 tab, Route: PO, Drug form: TAB, ONCE, Dosing Weight 105.455, kg, PRN Anxiety, Start date: 11/28/15 16:13:00 CDT, Stop date: 12/28/15 16:12:00 CDTNotes: With food or milk (Same as: Xanax) Inactive 2015 [facility] Saline Flush 0.9% 10 ml, Route: IVP, Drug Form: INJ, Dosing Weight 113.636, kg, PRN, PRN Line Flush, Start date: 11/28/15 15:24:00 CDT, Duration: 30 day, Stop date: 12/28/15 15:23:00 CDTNotes: (Same as: BD Posiflush) No Longer Active 2015 [facility] Nitroglycerin 0.4 mg, 1 tab, Route: SL, Drug form: TAB, Q5Min, Dosing Weight 113.636, kg, PRN Chest Pain, Start date: 11/28/15 15:24:00 CDT, Duration: 3 doses or times, Stop date: Limited # of timesNotes: (Same as :Nitroquick, Nitrostat) "Do Not Crush" Sublingual tablet No Longer Active 2015 [facility] Morphine 2 mg, 1 mL, Route: IVP, Drug form: INJ, Q15Min, Dosing Weight 113.636, kg, PRN Chest Pain, Start date: 11/28/15 15:24:00 CDT, Duration: 2 doses or times, Stop date: Limited # of timesNotes: (Same as: MORPhine Sulfate) No Longer Active 2015 [facility] Ondansetron 4 mg, 1 tab, Route: PO, Drug form: TAB, Q8H, Dosing Weight 113.636, kg, PRN Nausea & Vomiting, Start date: 11/28/15 15:24:00 CDT, Duration: 30 day, Stop date: 12/28/15 15:23:00 CDTNotes: (Same as: Glen) No Longer Active 2015 [facility] Aspirin 325 MG Oral Tablet 325 mg, 1 tab, Route: PO, Drug form: TAB, ONCE, Dosing Weight 113.636, kg, Start date: 11/28/15 15:24:00 CDT, Stop date: 11/28/15 15:24:00 CDTNotes: Take with food. Inactive 2015 [facility] Sodium Chloride 0.154 MEQ/ML Injectable Solution 1,000 mL, 1,000 ml/hr, Infuse Over: 1 hr, Route: IV, ONCE, Priority: STAT, Dosing Weight 113.636 kg, Start date: 11/28/15 13:34:00 CDT, Duration: 1 doses or times, Stop date: 11/28/15 13:34:00 CDT Inactive 2015 [facility] Morphine 4 mg, Route: IVP, Drug form: INJ, ONCE, Dosing Weight 113.636, kg, Priority: STAT, Start date: 11/28/15 13:34:00 CDT, Stop date: 11/28/15 13:34:00 CDT Inactive 2015 [facility] Nitroglycerin 0.02 MG/MG Topical Ointment 0.5 inch, Route: TOP, Dosing Weight 113.636, kg, ONCE, STAT, Start date: 11/28/15 13:32:00 CDT, Stop date: 11/28/15 13:32:00 CDT Inactive 2015 [facility] Ipratropium 0.5 mg, 2.5 mL, Route: NEB, Drug form: SOLN, ONCE, Dosing Weight 113.636, kg, Priority: STAT, Start date: 11/28/15 10:59:00 CDT, Stop date: 11/28/15 10:59:00 CDTNotes: SEE RT DOCUMENTATION (Same as:Stacey romero) Inactive 2015 [facility] Albuterol 0.83 MG/ML Inhalant Solution 10 mg, Route: NEB, Drug form: SOLN, Continuous, Dosing Weight 113.636, kg, Priority: STAT, Start date: 11/28/15 10:59:00 CDT, Duration: 30 day, Stop date: 12/28/15 10:58:00 CDT Inactive 2015 [facility] methylPREDNISolone SODium SUCCinate 125 mg, 2 mL, Route: IVP, Drug form: INJ, ONCE, Dosing Weight 113.636, kg, Priority: STAT, Start date: 11/28/15 10:59:00 CDT, Stop date: 11/28/15 10:59:00 CDTNotes: (Same as:Solu-MEDROL, A-Methapred) Inactive 2015 [facility] Magnesium Sulfate 2 gm, Route: IVPB, ONCE, Dosing Weight 113.636, kg, Priority: STAT, Start date: 11/28/15 10:59:00 CDT, Stop date: 11/28/15 10:59:00 CDT Inactive 2015 [facility] Saline Flush 0.9% 10 mL, Route: IVP, Drug Form: INJ, Dosing Weight 113.636, kg, PRN, PRN Line Flush, Start date: 11/28/15 10:59:00 CDT, Duration: 30 day, Stop date: 12/28/15 10:58:00 CDTNotes: (Same as: BD Posiflush) Inactive 2015 [facility] Ketoconazole 20 MG/ML Medicated Shampoo 1 appl, Route: TOP, QWed, Drug form: SHMP, Start date: 08/23/15 9:00:00 CDT, Duration: 30 day, Stop date: 09/20/15 9:00:00 CDT No Longer Active 08/23/2015 [facility] predniSONE 5 mg, 1 tab, Route: PO, Drug form: TAB, Daily, Start date: 08/20/15 9:00:00 CDT, Duration: 3 doses or times, Stop date: 08/22/15 9:00:00 CDTNotes: Take with food. No Longer Active 08/20/2015 [facility] Xarelto 15 mg, 1 tab, Route: PO, Drug form: TAB, Q12H, Dosing Weight 95, kg, Start date: 08/20/15 9:00:00 CDT, Duration: 30 day, Stop date: 09/18/15 21:00:00 CDTNotes: (Same as: Xarelto) Administer with food No Longer Active 08/20/2015 [facility] {42 (rivaroxaban 15 MG Oral Tablet [Xarelto]) / 9 (rivaroxaban 20 MG Oral Tablet [Xarelto]) } Pack [Xarelto Kit] 1 tab, PO, BID-Meals, Take 15 mg tablets twice daily with food for 21 days. Beginning day 22,take one 20 mg tablet daily with food for the remainder of therapy., X 30 day, # 1 pkt, 0 Refill(s) Active 08/20/2015 [facility] Pulmicort Respules 0.5 mg, 2 mL, Route: NEB, Drug form: SUSP, RBID, Start date: 08/19/15 22:00:00 CDT, Duration: 30 day, Stop date: 09/18/15 20:00:00 CDTNotes: (Same As: Pulmicort) No Longer Active 08/20/2015 [facility] Thiamine 100 mg, 1 tab, Route: PO, Drug form: TAB, Daily, Dosing Weight 95, kg, Start date: 08/19/15 9:00:00 CDT, Duration: 30 day, Stop date: 09/17/15 9:00:00 CDTNotes: (Same As: Vitamin B1) No Longer Active 08/19/2015 [facility] Ketoconazole 20 MG/ML Medicated Shampoo 1 appl, Route: TOP, QSat, Drug form: SHMP, Start date: 08/19/15 9:00:00 CDT, Duration: 30 day, Stop date: 09/16/15 9:00:00 CDT No Longer Active 08/19/2015 [facility] Folic Acid 1 mg, 1 tab, Route: PO, Drug form: TAB, Daily, Dosing Weight 95, kg, Start date: 08/19/15 9:00:00 CDT, Duration: 30 day, Stop date: 09/17/15 9:00:00 CDTNotes: (Same as: Folvite) No Longer Active 08/19/2015 [facility] Flonase 0.05 mg/inh nasal spray 2 spray, Route: Each Affected Nostril, Drug Form: SPRY, Dosing Weight 95, kg, Daily, Start date: 08/19/15 9:00:00 CDT, Duration: 30 day, Stop date: 09/17/15 9:00:00 CDTNotes: (Same as: Flonase) No Longer Active 08/19/2015 [facility] Aspirin 81 mg, 1 tab, Route: PO, Drug form: ECTAB, Daily, Dosing Weight 95, kg, Start date: 08/19/15 9:00:00 CDT, Duration: 30 day, Stop date: 09/17/15 9:00:00 CDTNotes: Do not crush or chew. (Same As: Ecotrin) No Longer Active 08/19/2015 [facility] Bacitracin 0.4 UNT/MG / Neomycin 0.0035 MG/MG / Polymyxin B 10 UNT/MG Ophthalmic Ointment 1 appl, Route: BOTH EYES, Q3H, Drug form: OINT, Start date: 08/18/15 23:00:00 CDT, Duration: 30 day, Stop date: 09/17/15 20:00:00 CDTNotes: (bacitracin/neomycin/ polymyxin B 3.5 gm oph OIN) (Same As: Neosporin, Triple Antibiotic) No Longer Active 08/19/2015 [facility] Mirtazapine 30 mg, 2 tab, Route: PO, Drug form: TAB, Bedtime, Dosing Weight 95, kg, Start date: 08/18/15 21:00:00 CDT, Duration: 30 day, Stop date: 09/16/15 21:00:00 CDTNotes: (Same as:Remeron) No Longer Active 08/19/2015 [facility] carvedilol 3.125 mg, 1 tab, Route: PO, Drug form: TAB, Q12H, Dosing Weight 95, kg, Start date: 08/18/15 21:00:00 CDT, Duration: 30 day, Stop date: 09/17/15 9:00:00 CDTNotes: Give with food. (Same As: Coreg) No Longer Active 08/19/2015 [facility] Budesonide 1 inhalation, Route: INHALATION, Drug form: PWDR, RBID, Dosing Weight 95, kg, Start date: 08/18/15 20:00:00 CDT, Duration: 30 day, Stop date: 09/17/15 8:00:00 CDTNotes: Same as Pulmicort Flexhaler Non- Formulary Drug Inactive 08/19/2015 [facility] Polymyxin B 54860 UNT/ML / Trimethoprim 1 MG/ML Ophthalmic Solution 1 drp, Route: BOTH EYES, Q3H, Start date: 08/18/15 17:00:00 CDT, Duration: 30 day, Stop date: 09/17/15 14:00:00 CDT Inactive 08/18/2015 [facility] Warfarin 7.5 mg, 1 tab, Route: PO, [...] (Same As: Coumadin) No Longer Active 08/18/2015 [facility] POLYETHYLENE GLYCOL 3350 17 gm, Route: PO, Drug form: PDR/REC, BID, Dosing Weight 95, kg, Start date: 08/18/15 17:00:00 CDT, Duration: 30 day, Stop date: 09/17/15 9:00:00 CDTNotes: (Same as: MiraLax) No Longer Active 08/18/2015 [facility] Polymyxin B 95148 UNT/ML / Trimethoprim 1 MG/ML Ophthalmic Solution 1 drp, BOTH EYES, Q3H, X 7 day, # 10 mL, 0 Refill(s) No Longer Active 08/18/2015 [facility] remove patch 1 patch, Route: TOP, Q24H, Drug form: ERFILM, Start date: 08/18/15 15:00:00 CDT, Duration: 30 day, Stop date: 09/16/15 15:00:00 CDTNotes: Remove patch 12 hours after application each day. No Longer Active 08/18/2015 [facility] Lidocaine Hydrochloride 0.05 MG/MG Transdermal Patch [Lidoderm] 1 patch, Route: TOP, Q24H, Drug form: FILM, Start date: 08/18/15 15:00:00 CDT, Duration: 30 day, Stop date: 09/16/15 15:00:00 CDTNotes: Apply only once for up to 12 hours in a 24-hour period (12 hours on and 12 hours off). (Same as: Lidoderm) "Remove old patch before application of new patch" No Longer Active 08/18/2015 [facility] predniSONE 10 mg, 1 tab, Route: PO, Drug form: TAB, Daily, Start date: 08/18/15 14:27:00 CDT, Duration: 2 doses or times, Stop date: 08/19/15 9:00:00 CDTNotes: (Same as: PredniSONE) Take with food. No Longer Active 08/18/2015 [facility] tramadol hydrochloride 50 MG Oral Tablet [Ultram] 50 mg, 1 tab, Route: PO, Drug form: TAB, Q6H, Dosing Weight 95, kg, PRN Pain Score 6- 10, Start date: 08/18/15 14:08:00 CDT, Duration: 30 day, Stop date: 09/17/15 14:07:00 CDTNotes: Not to exceed 400mg/day. (Same As: Ultram) No Longer Active 08/18/2015 [facility] Prednisone 1 MG Oral Tablet Dose: See Instructions, Route: SUB-Q, Drug form: TAB, Sliding Scale, PRN Blood Glucose Results, Start date: 08/18/15 14:08:00 CDT, Duration: 30 day, Stop date: 09/17/15 14:07:00 CDT Inactive 08/18/2015 [facility] Nitroglycerin 0.4 MG Sublingual Tablet 0.4 mg, 1 tab, Route: SL, Drug form: TAB, Q5Min, Dosing Weight 95, kg, PRN Chest Pain, Start date: 08/18/15 14:08:00 CDT, Duration: 30 day, Stop date: 09/17/15 14:07:00 CDTNotes: (Same as:Nitroquick, Nitrostat) "Do Not Crush" Sublingual tablet No Longer Active 08/18/2015 [facility] hydrocortisone topical 2.5% cream 1 appl, Route: TOP, BID, Drug form: CRM, PRN Itching, Start date: 08/18/15 14:08:00 CDT, Duration: 30 day, Stop date: 09/17/15 14:07:00 CDT No Longer Active 08/18/2015 [facility] Calcium Carbonate 500 MG Chewable Tablet 500 mg, 1 tab, Route: CHEW, Drug form: CHEWTAB, TID, Dosing Weight 95, kg, PRN Indigestion, Start date: 08/18/15 14:08:00 CDT, Duration: 30 day, Stop date: 09/17/15 14:07:00 CDTNotes: (Same As: César) Calcium Carbonate 500 zm=918 mg elemental calcium Dose= mg calcium carbonate ( mg elemental calcium) No Longer Active 08/18/2015 [facility] 200 ACTUAT Albuterol 0.09 MG/ACTUAT Metered Dose Inhaler 2 puff, Route: INHALATION, Drug Form: AERO/A, Dosing Weight 95, kg, RQID, PRN Wheezing, Start date: 08/18/15 14:08:00 CDT, Duration: 30 day, Stop date: 09/17/15 14:07:00 CDT No Longer Active 08/18/2015 [facility] Acetaminophen 1,000 mg, 2 tab, Route: PO, Drug form: TAB, Q6H, Dosing Weight 95, kg, PRN Pain Score 1-5, Start date: 08/18/15 14:07:00 CDT, Duration: 30 day, Stop date: 09/17/15 14:06:00 CDTNotes: Max acetaminophen 4000 mg/day (4 gm/day). (Same as: Tylenol Extra Strength) No Longer Active 08/18/2015 [facility] Sodium Chloride 0.9% IV 25 mL, Route: IV, Start date: 08/18/15 14:03:00 CDT, Duration: 30 day, Stop date: 09/17/15 14:02:00 CDT, PRN Line Flush No Longer Active 08/18/2015 [facility] Artificial Tears 1 drp, Route: Each Affected Eye, QID, Drug form: SOLN, PRN Dry Eyes, Start date: 08/18/15 13:56:00 CDT, Duration: 30 day, Stop date: 09/17/15 13:55:00 CDTNotes: (Same as: Aquasite) No Longer Active 08/18/2015 [facility] Diphenhydramine 25 mg, 0.5 mL, Route: IV, Drug form: INJ, Q6H, Dosing Weight 95, kg, PRN as needed for itching, Start date: 08/18/15 13:55:00 CDT, Duration: 30 day, Stop date: 09/17/15 13:54:00 CDTNotes: (Same as: Benadryl) No Longer Active 08/18/2015 [facility] Lorazepam 1 mg, 0.5 mL, Route: IV, Drug form: INJ, Q6H, Dosing Weight 95, kg, PRN as needed for anxiety, Start date: 08/18/15 13:55:00 CDT, Stop date: 09/17/15 13:54:00 CDTNotes: (Same as: Ativan) No Longer Active 08/18/2015 [facility] Ketoconazole 20 MG/ML Medicated Shampoo 1 appl, TOP, QSat, 0 Refill(s) Active 08/18/2015 [facility] Ketoconazole 20 MG/ML Medicated Shampoo 1 appl, TOP, QWed, 0 Refill(s) Active 08/18/2015 [facility] Saline Flush 0.9% 10 mL, Route: IVP, Drug Form: INJ, Dosing Weight 99.574, kg, PRN, PRN Line Flush, Start date: 08/18/15 8:30:00 CDT, Duration: 30 day, Stop date: 09/17/15 8:29:00 CDTNotes: (Same as: BD Posiflush) No Longer Active 08/18/2015 [facility] Ativan 1 mg, 1 tab, Route: PO, Drug form: TAB, ONCE, Dosing Weight 99.574, kg, Start date: 08/17/15 23:25:00 CDT, Stop date: 08/17/15 23:25:00 CDTNotes: (Same as: Ativan) Inactive 08/18/2015 [facility] tramadol hydrochloride 50 MG Oral Tablet [Ultram] 50 mg=1 tab, PO, Q6H, PRN Pain Score 6-10, # 1 tab, 0 Refill(s), other Active 08/18/2015 [facility] predniSONE 10 mg oral tablet See Instructions, Take 1 tab (10mg) PO daily for 2 days and then take 1/2 tab (5mg) PO daily for 3 days and stop. Take w/ food., # 1 tab, 0 Refill(s), other Active 08/18/2015 [facility] 200 ACTUAT Albuterol 0.09 MG/ACTUAT Metered Dose Inhaler 2 puff, INHALATION, QID, PRN as needed for wheezing, # 3 ea, 0 Refill(s), other Active 08/18/2015 [facility] thiamine 100 mg oral tablet 100 mg=1 tab, PO, Daily, 0 Refill(s) Active 08/18/2015 [facility] tramadol hydrochloride 50 MG Oral Tablet [Ultram] 50 mg=1 tab, PO, Q4H, PRN Pain Score 4-6, 0 Refill(s) Inactive 08/18/2015 [facility] POLYETHYLENE GLYCOL 3350 17 gm, PO, BID, 0 Refill(s) Active 08/18/2015 [facility] methocarbamol 500 mg oral tablet 500 mg=1 tab, PO, QID, PRN Muscle Spasms, per RACHEL Dennis at [facility], did not approve robaxin and not taking, 0 Refill(s) No Longer Active 08/18/2015 [facility] Lidocaine Hydrochloride 0.05 MG/MG Transdermal Patch [Lidoderm] 1 patch, TOP, Q24H, Remove after 12 hours, 0 Refill(s) Active 08/18/2015 [facility] hydrocortisone topical 2.5% cream 1 appl, TOP, BID, PRN Itching, 0 Refill(s) Active 08/18/2015 [facility] Folic Acid 1 MG Oral Tablet 1 mg=1 tab, PO, Daily, 0 Refill(s) Active 08/18/2015 [facility] Calcium Carbonate 500 MG Chewable Tablet 500 mg=1 tab, CHEW, TID, PRN Indigestion, 0 Refill(s) Active 08/18/2015 [facility] Flonase 0.05 mg/inh nasal spray 100 microgram=2 spray, Each Affected Nostril, Daily, 0 Refill(s) Active 08/18/2015 [facility] busPIRone 5 mg oral tablet 5 mg=1 tab, PO, TID, Investigating the current use. New rx from 08/17/15 but not seen on papaers provided by facility. RN Sonny will fax the list, 0 Refill(s) No Longer Active 08/18/2015 [facility] mirtazapine 30 mg oral tablet 30 mg=1 tab, PO, Bedtime, 0 Refill(s) Active 08/18/2015 [facility] warfarin 2.5 mg oral tablet 7.5 mg, PO, QPM, # 1 tab, 0 Refill(s), other No Longer Active 08/18/2015 [facility] acetaminophen 500 mg oral tablet 1,000 mg=2 tab, PO, Q6H, PRN Pain Score 1-5, 0 Refill(s) Active 08/18/2015 [facility] Warfarin 7.5 mg, 1 tab, [...] Waste Black (Same As: Coumadin) Inactive 08/17/2015 [facility] Buspar 5 mg, 1 tab, Route: PO, Drug form: TAB, TID, Dosing Weight 99.574, kg, Start date: 08/17/15 9:00:00 CDT, Duration: 30 day, Stop date: 09/15/15 17:00:00 CDTNotes: (Same As: BuSpar) No Longer Active 08/17/2015 [facility] Warfarin 7.5 mg, 1 tab, [...] Waste Black (Same As: Coumadin) Inactive 08/16/2015 [facility] Methocarbamol 500 mg, 1 tab, Route: PO, Drug form: TAB, QID, Dosing Weight 99.574, kg, PRN Muscle Spasms, Start date: 08/15/15 22:54:00 CDT, Duration: 30 day, Stop date: 09/14/15 22:53:00 CDTNotes: (Same as:Robaxin) No Longer Active 08/16/2015 [facility] Ativan 1 mg, 0.5 mL, Route: IVP, Drug form: INJ, ONCE, Dosing Weight 99.574, kg, Start date: 08/15/15 19:39:00 CDT, Stop date: 08/15/15 19:39:00 CDTNotes: (Same as: Ativan) Inactive 08/16/2015 [facility] Warfarin 6 mg, 1 tab, [...] Waste Black (Same As: Coumadin) Inactive 08/15/2015 [facility] Clonazepam 0.25 mg, 0.5 tab, Route: PO, Drug form: TAB, ONCE, Dosing Weight 99.574, kg, Priority: NOW, Start date: 08/15/15 10:09:00 CDT, Stop date: 08/15/15 10:09:00 CDTNotes: (Same As: KlonoPIN) Inactive 08/15/2015 [facility] Warfarin 5 mg, 1 tab, [...] Waste Black (Same As: Coumadin) Inactive 08/14/2015 [facility] remove patch 1 patch, Route: TOP, Bedtime, Drug form: ERFILM, Start date: 08/14/15 1:00:00 CDT, Duration: 30 day, Stop date: 09/12/15 1:00:00 CDTNotes: Remove patch 12 hours after application each day. No Longer Active 08/14/2015 [facility] Warfarin 5 mg, 1 tab, [...] Waste Black (Same As: Coumadin) Inactive 08/13/2015 [facility] Miralax 17 gm, 1 pkt, Route: PO, Drug form: PWDR, BID, Dosing Weight 99.574, kg, Priority: NOW, Start date: 08/13/15 14:34:00 CDT, Duration: 30 day, Stop date: 09/12/15 9:00:00 CDTNotes: Dissolve in 8 oz of water or juice. (Same as: Miralax) No Longer Active 08/13/2015 [facility] Dulcolax Laxative 10 mg, 1 supp, Route: LA, Drug form: SUPP, ONCE, Dosing Weight 99.574, kg, Priority: NOW, Start date: 08/13/15 14:29:00 CDT, Stop date: 08/13/15 14:29:00 CDTNotes: (Same As: Dulcolax, Bisco- Lax) Inactive 08/13/2015 [facility] Lidocaine Hydrochloride 0.05 MG/MG Transdermal [...] of new patch" No Longer Active 08/13/2015 [facility] Warfarin 6 mg, 1 tab, [...] Waste Black (Same As: Coumadin) Inactive 08/12/2015 [facility] warfarin 3 mg oral tablet 6 mg=2 tab, PO, Daily, # 30 tab, 0 Refill(s) No Longer Active 08/12/2015 [facility] 200 ACTUAT Albuterol 0.09 MG/ACTUAT Metered Dose Inhaler 2 puff, INHALATION, QID, # 3 ea, 0 Refill(s) No Longer Active 08/12/2015 [facility] predniSONE 10 mg oral tablet 20 mg=2 tab, PO, Daily, for 3 days then 1 tab daily for 3 days then 0.5 tab for 4 days., # 11 tab, 0 Refill(s) Inactive 08/12/2015 [facility] carvedilol 3.125 mg oral tablet 3.125 mg=1 tab, PO, Q12H, # 60 tab, 0 Refill(s) Active 08/12/2015 [facility] tramadol hydrochloride 50 MG Oral Tablet 50 mg=1 tab, PO, Q6H, PRN Pain, PRN for pain q 6 hrs, # 30 tab, 0 Refill(s) Inactive 08/12/2015 [facility] Nitroglycerin 0.4 MG Sublingual Tablet 0.4 mg=1 tab, SL, Q5Min, PRN Chest Pain, Give up to 3 doses. Call 911 if pain persists., # 100 tab, 0 Refill(s) Active 08/12/2015 [facility] mirtazapine 15 mg oral tablet 15 mg=1 tab, PO, Bedtime, # 30 tab, 0 Refill(s) No Longer Active 08/12/2015 [facility] budesonide 180 mcg/inh inhalation powder 1 puff, INHALATION, BID, # 2 ea, 0 Refill(s) Active 08/12/2015 [facility] Warfarin 7.5 mg, 1 tab, [...] Waste Black (Same As: Coumadin) Inactive 08/11/2015 [facility] Warfarin 6 mg, 1 tab, [...] Waste Black (Same As: Coumadin) Inactive 08/10/2015 [facility] Warfarin 7.5 mg, 1 tab, Route: PO, Drug form: TAB, ONCE, Dosing Weight 99.574, kg, Priority: NOW, Start date: 08/09/15 18:12:00, Stop date: 08/09/15 18:12:00Notes: Nurse to ensure documentation of patient education per anticoagulation policy. Avoid large intake of vitamin-K containing foods diet. WASTE: F/P - P Waste Black; E - P Waste Black (Same As: Coumadin) Inactive 08/09/2015 [facility] Oxycodone Hydrochloride 5 MG Oral Tablet 5 mg, 1 tab, Route: PO, Drug form: TAB, Q6H, Dosing Weight 99.574, kg, PRN Pain Score 7-10, Start date: 08/08/15 18:10:00 CDT, Duration: 30 day, Stop date: 09/07/15 18:09:00 CDTNotes: (Same as: Roxicodone) No Longer Active 08/08/2015 [facility] Tums 500 mg, 1 tab, Route: CHEW, Drug form: CHEWTAB, TID, Dosing Weight 99.574, kg, PRN Indigestion, Start date: 08/08/15 18:07:00, Duration: 30 day, Stop date: 09/07/15 18:06:00Notes: (Same As: Tums) Calcium Carbonate 500 lu=204 mg elemental calcium Dose= mg calcium carbonate ( mg elemental calcium) No Longer Active 08/08/2015 [facility] Coumadin 7.5 mg, 1 tab, [...] Waste Black (Same As: Coumadin) Inactive 08/08/2015 [facility] Tylenol 1,000 mg, 2 tab, Route: PO, Drug form: TAB, Q6H, Dosing Weight 99.574, kg, Start date: 08/07/15 18:00:00, Duration: 30 day, Stop date: 09/06/15 12:00:00Notes: Max acetaminophen 4000 mg/day (4 gm/day). (Same as: Tylenol Extra Strength) No Longer Active 08/07/2015 [facility] Coumadin 7.5 mg, 1 tab, [...] Waste Black (Same As: Coumadin) Inactive 08/07/2015 [facility] tramadol hydrochloride 50 MG Oral Tablet [Ultram] 50 mg, 1 tab, Route: PO, Drug form: TAB, Q4H, Dosing Weight 99.574, kg, PRN Pain Score 4-6, Start date: 08/07/15 12:36:00, Duration: 30 day, Stop date: 09/06/15 12:35:00Notes: Not to exceed 400mg/day. (Same As: Ultram) No Longer Active 08/07/2015 [facility] naproxen sodium 550 mg, Route: PO, Drug form: TAB, BID, Dosing Weight 99.574, kg, PRN Pain Score 1-3, Start date: 08/07/15 12:27:00, Duration: 30 day, Stop date: 09/06/15 12:26:00 Inactive 08/07/2015 [facility] Acetaminophen 325 MG / Hydrocodone Bitartrate 5 MG Oral Tablet [Sadorus 5/325] 1 tab, Route: PO, Drug Form: TAB, Dosing Weight 99.574, kg, Q4H, PRN Pain Score 1-3, Start date: 08/07/15 10:36:00, Duration: 30 day, Stop date: 09/06/15 10:35:00Notes: (Same as: Sadorus 325/5) Do not exceed 4gm/day of acetaminophen. Inactive 08/07/2015 [facility] Coumadin 5 mg, 1 tab, [...] Waste Black (Same As: Coumadin) Inactive 08/06/2015 [facility] Ativan 0.5 mg, 1 tab, Route: PO, Drug form: TAB, TID, Dosing Weight 99.574, kg, PRN Anxiety, Start date: 08/06/15 9:39:00, Duration: 30 day, Stop date: 09/05/15 9:38:00Notes: (Same as: Ativan) No Longer Active 08/06/2015 [facility] Ativan 0.5 mg, 0.25 mL, Route: IV, Drug form: INJ, ONCE, Dosing Weight 99.574, kg, Start date: 08/06/15 9:06:00, Stop date: 08/06/15 9:06:00Notes: (Same as: Ativan) Inactive 08/06/2015 [facility] Ativan 0.5 mg, 0.25 mL, Route: IV, Drug form: INJ, ONCE, Dosing Weight 99.574, kg, Start date: 08/06/15 8:49:00, Stop date: 08/06/15 8:49:00Notes: (Same as: Ativan) Inactive 08/06/2015 [facility] Coumadin 10 mg, 1 tab, [...] E - P Waste Black Inactive 08/05/2015 [facility] Coreg 3.125 mg, 1 tab, Route: PO, Drug form: TAB, Q12H, Dosing Weight 99.574, kg, Priority: NOW, Start date: 08/04/15 20:48:00, Duration: 30 day, Stop date: 09/03/15 9:00:00Notes: Give with food. (Same As: Coreg) No Longer Active 08/05/2015 [facility] Warfarin 10 mg, 1 tab, [...] E - P Waste Black Inactive 08/04/2015 [facility] Prednisone 10 mg, 1 tab, Route: PO, Drug form: TAB, Daily, Dosing Weight 99.574, kg, Start date: 08/04/15 9:00:00 CDT, Stop date: 09/02/15 9:00:00 CDTNotes: (Same as: PredniSONE) Take with food. No Longer Active 08/04/2015 [facility] Coumadin 7.5 mg, 1 tab, [...] Waste Black (Same As: Coumadin) Inactive 08/03/2015 [facility] K-Dur 20 40 mEq, 2 tab, Route: PO, Drug form: ERTAB, ONCE, Start date: 08/03/15 14:00:00, Stop date: 08/03/15 14:00:00Notes: (Same as: K- Dur 20) "Do Not Crush" With food and full glass of water Inactive 08/03/2015 [facility] Flonase 0.05 mg/inh nasal spray 2 spray, Route: Each Affected Nostril, Drug Form: SPRY, Dosing Weight 99.574, kg, Daily, NOW, Start date: 08/02/15 18:04:00, Stop date: 09/01/15 9:00:00Notes: (Same as: Flonase) No Longer Active 08/02/2015 [facility] Budesonide 0.25 MG/ML Inhalant Solution [Pulmicort] 0.5 mg, 2 mL, Route: NEB, Drug form: SUSP, BID, Dosing Weight 99.574, kg, Priority: NOW, Start date: 08/02/15 17:58:00, Duration: 30 day, Stop date: 09/01/15 17:00:00Notes: (Same As: Pulmicort) No Longer Active 08/02/2015 [facility] Coumadin 7.5 mg, 1 tab, [...] Waste Black (Same As: Coumadin) Inactive 08/02/2015 [facility] Albuterol 0.83 MG/ML Inhalant Solution 2.49 mg, 3 mL, Route: PO, Drug form: SOLN, RQ4H, Dosing Weight 99.574, kg, PRN Wheezing, Start date: 08/02/15 10:21:00, Duration: 30 day, Stop date: 09/01/15 10:20:00Notes: SEE RT DOCUMENTATION (Same as: Proventil) No Longer Active 08/02/2015 [facility] Coumadin 7.5 mg, 1 tab, Route: PO, Drug form: TAB, Q5PM, Start date: 08/01/15 17:00:00, Duration: 1 day, Stop date: 08/01/15 17:00:00Notes: Nurse to ensure documentation of patient education per anticoagulation policy. Avoid large intake of vitamin-K containing foods diet. WASTE: F/P - P Waste Black; E - P Waste Black (Same As: Coumadin) Inactive 08/01/2015 [facility] Warfarin 5 mg, Route: PO, Q5PM, Dosing Weight 99.574, kg, Start date: 08/01/15 17:00:00, Duration: 1 doses or times, Stop date: 08/01/15 17:00:00 Inactive 08/01/2015 [facility] Bumex 1 mg, 1 tab, Route: PO, Drug form: TAB, Daily, Dosing Weight 99.574, kg, Start date: 08/01/15 9:00:00, Duration: 30 day, Stop date: 08/30/15 9:00:00Notes: (Same As: Bumex) No Longer Active 08/01/2015 [facility] trazodone 50 mg oral tablet 25 mg, 0.5 tab, Route: PO, Drug form: TAB, ONCE, Dosing Weight 99.574, kg, Start date: 07/31/15 23:00:00, Stop date: 07/31/15 23:00:00Notes: (Same As: Desyrel) Inactive 08/01/2015 [facility] Trazodone 25 mg, 0.5 tab, Route: PO, Drug form: TAB, ONCE, Dosing Weight 99.574, kg, PRN Sleep, Start date: 07/31/15 21:49:00, Stop date: 07/31/15 21:49:00Notes: (Same As: Desyrel) Inactive 08/01/2015 [facility] Warfarin 5 mg, 1 tab, [...] Waste Black (Same As: Coumadin) Inactive 07/31/2015 [facility] Lactulose 20 gm, 30 ml, Route: PO, Drug Form: SYRP, Dosing Weight 99.574, kg, ONCE, PRN Constipation, Start date: 07/31/15 9:55:00, Stop date: 08/30/15 9:54:00Notes: (Same as:Chronulac) Inactive 07/31/2015 [facility] azithromycin 250 mg oral tablet 250 mg, 1 tab, Route: PO, Drug form: TAB, Daily, Dosing Weight 99.574, kg, Start date: 07/31/15 9:00:00, Duration: 4 day, Stop date: 08/03/15 9:00:00Notes: Take 1 hour before or 2 hours after meals. (Same As: Zithromax) No Longer Active 07/31/2015 [facility] Lidocaine Hydrochloride 10 MG/ML Injectable Solution 100 mg, 10 mL, Route: IV, Drug Form: INJ, Dosing Weight 99.574, kg, ONCE, Start date: 07/30/15 20:34:00, Stop date: 07/30/15 20:34:00Notes: (Same as: Xylocaine) Inactive 07/31/2015 [facility] Lidocaine Hydrochloride 20 MG/ML Injectable Solution 200 mg, 10 mL, Route: SUB-Q, Drug Form: INJ, Dosing Weight 99.574, kg, ONCE, Start date: 07/30/15 18:53:00, Stop date: 07/30/15 18:53:00Notes: Syringe (Same as: Xylocaine) Inactive 07/30/2015 [facility] azithromycin 500 mg oral tablet 500 mg, 2 tab, Route: PO, Drug form: TAB, Daily, Dosing Weight 99.574, kg, Priority: STAT, Start date: 07/30/15 18:45:00, Duration: 1 doses or times, Stop date: 07/30/15 18:45:00Notes: Take 1 hour before or 2 hours after meals. (Same As: Zithromax) Inactive 07/30/2015 [facility] Albuterol 0.833 MG/ML / Ipratropium [place] 0.167 MG/ML Inhalant Solution 3 ml, Route: NEB, Drug Form: SOLN, Dosing Weight 99.574, kg, RQ4H, STAT, Start date: 07/30/15 18:45:00, Duration: 30 day, Stop date: 08/29/15 15:00:00Notes: (Same as: Duoneb) No Longer Active 07/30/2015 [facility] Prednisone 60 mg, 3 tab, Route: PO, Drug form: TAB, Daily, Dosing Weight 99.574, kg, Priority: STAT, Start date: 07/30/15 18:45:00, Duration: 30 day, Stop date: 08/29/15 9:00:00Notes: Take with food. No Longer Active 07/30/2015 [facility] Magnesium Sulfate 2 gm, 50 mL, Route: IVPB, Drug form: INJ, ONCE, Dosing Weight 99.574, kg, Start date: 07/30/15 15:19:00, Duration: 2 hr, Stop date: 07/30/15 15:19:00Notes: WASTE: F/P - Sink; E - Municipal Trash Bin Inactive 07/30/2015 [facility] Tylenol 650 mg, 2 tab, Route: PO, Drug form: TAB, ONCE, Dosing Weight 99.574, kg, Start date: 07/30/15 1:27:00, Stop date: 07/30/15 1:27:00Notes: Do not exceed 4 gm/day. (Same as: Tylenol) Inactive 07/30/2015 [facility] Magnesium Sulfate 2 gm, 50 mL, Route: IVPB, Drug form: INJ, ONCE, Dosing Weight 99.574, kg, Start date: 07/29/15 10:51:00, Duration: 2 hr, Stop date: 07/29/15 10:51:00Notes: WASTE: F/P - Sink; E - Municipal Trash Bin Inactive 07/29/2015 [facility] Bumex 1 mg, 4 mL, Route: IVP, Drug form: INJ, Daily, Dosing Weight 99.574, kg, Priority: NOW, Start date: 07/29/15 10:17:00, Duration: 30 day, Stop date: 08/28/15 9:00:00Notes: (Same As: Bumex) No Longer Active 07/29/2015 [facility] ketoconazole topical 2% shampoo 1 appl, Route: SHAMPOO, QSat, Drug form: SHMP, Start date: 07/29/15 9:00:00, Duration: 30 day, Stop date: 08/26/15 9:00:00Notes: Non-Formulary Drug (Same as:Nizoral Topical) No Longer Active 07/29/2015 [facility] normal saline 0.9% IV 1,000 mL 1,000 mL, Rate: 50 ml/hr, Infuse over: 20 hr, Route: IVPB, Dosing Weight 99.574 kg, Total Volume: 1,000, Start date: 07/27/15 22:04:00, Duration: 30 day, Stop date: 08/26/15 22:03:00 No Longer Active 07/28/2015 [facility] hydrocortisone topical 2.5% cream 1 appl, Route: TOP, BID, Drug form: CRM, PRN Itching, Start date: 07/26/15 14:53:00, Duration: 30 day, Stop date: 08/25/15 14:52:00 No Longer Active 07/26/2015 [facility] Ketoconazole 20 MG/ML Medicated Shampoo 1 appl, Route: TOP, QWed, Drug form: SHMP, Start date: 07/26/15 14:50:00, Duration: 30 day, Stop date: 08/23/15 15:00:00Notes: Non-Formulary Drug (Same as:Nizoral Topical) No Longer Active 07/26/2015 [facility] tiotropium 0.018 MG/ACTUAT Inhalant Powder [Spiriva] 18 microgram, 1 inhalation, Route: INHALATION, Drug form: CAP, Daily, Dosing Weight 99.574, kg, Start date: 07/26/15 9:00:00, Duration: 30 day, Stop date: 08/24/15 9:00:00Notes: (Same As: Spiriva) No Longer Active 07/26/2015 [facility] Clonidine Hydrochloride 0.1 MG Oral Tablet 0.1 mg, 1 tab, Route: PO, Drug form: TAB, TID, Dosing Weight 99.574, kg, Start date: 07/22/15 17:00:00, Duration: 30 day, Stop date: 08/21/15 13:00:00Notes: (Same As: Catapres) No Longer Active 07/22/2015 [facility] Remeron 30 mg, 2 tab, Route: PO, Drug form: TAB, Bedtime, Dosing Weight 99.574, kg, Start date: 07/21/15 21:00:00, Duration: 30 day, Stop date: 08/19/15 21:00:00Notes: (Same as:Remeron) Inactive 07/22/2015 [facility] Mirtazapine 30 mg, 1 tab, Route: PO, Drug form: TAB, Bedtime, Dosing Weight 99.574, kg, Start date: 07/21/15 21:00:00, Duration: 30 day, Stop date: 09/18/15 21:00:00Notes: (Same as:Remeron) No Longer Active 07/22/2015 [facility] Hydrocortisone-Aloe 0.5% topical cream 1 appl, Route: TOP, BID, Drug form: CRM, Start date: 07/21/15 9:00:00, Duration: 30 day, Stop date: 08/19/15 17:00:00 No Longer Active 07/21/2015 [facility] Aspirin 81 mg, 1 tab, Route: PO, Drug form: ECTAB, Daily, Dosing Weight 99.574, kg, Start date: 07/21/15 9:00:00, Duration: 30 day, Stop date: 09/18/15 9:00:00Notes: Do not crush or chew. (Same As: Ecotrin) No Longer Active 07/21/2015 [facility] Clonidine Hydrochloride 0.1 MG Oral Tablet 0.1 mg, 1 tab, Route: PO, Drug form: TAB, QID, Dosing Weight 99.574, kg, Start date: 07/21/15 9:00:00, Duration: 30 day, Stop date: 08/19/15 21:00:00Notes: (Same As: Catapres) No Longer Active 07/21/2015 [facility] Folic Acid 1 mg, 1 tab, Route: PO, Drug form: TAB, Daily, Dosing Weight 99.574, kg, Start date: 07/21/15 9:00:00, Duration: 30 day, Stop date: 09/18/15 9:00:00Notes: (Same as: Folvite) No Longer Active 07/21/2015 [facility] Thiamine 100 mg, 1 tab, Route: PO, Drug form: TAB, Daily, Dosing Weight 99.574, kg, Start date: 07/21/15 9:00:00, Duration: 30 day, Stop date: 09/18/15 9:00:00Notes: (Same As: Vitamin B1) No Longer Active 07/21/2015 [facility] heparin additive 25,000 unit [18 unit/kg/hr] + Premix Diluent Dextrose 5% 500 mL 500 mL, Rate: 31.1 ml/hr, Infuse over: 16.1 hr, Route: IV, Dosing Weight 86.39 kg, Total Volume: 500 mL, Start date: 07/21/15 3:49:00, Duration: 30 day, Stop date: 08/20/15 3:48:00 No Longer Active 07/21/2015 [facility] Heparin 40 unit/kg Bolus (Heparin Dosing Weight) Route: IVP, PRN, 3,500 unit, 3.5 mL, Drug form: INJ, PRN, Heparin Protocol, Start date: 07/21/15 3:49:00 Stop date: 08/20/15 3:48:00, 30 day No Longer Active 07/21/2015 [facility] Heparin 80 unit/kg Bolus (Heparin Dosing Weight) Route: IVP, PRN, 6,900 unit, 6.9 mL, Drug form: INJ, PRN, Heparin Protocol, Start date: 07/21/15 3:49:00 Stop date: 08/20/15 3:48:00, 30 day No Longer Active 07/21/2015 [facility] tramadol hydrochloride 50 MG Oral Tablet 50 mg, 1 tab, Route: PO, Drug form: TAB, Q6H, Dosing Weight 99.574, kg, PRN Pain Score 6-10, Start date: 07/21/15 3:33:00, Duration: 30 day, Stop date: 08/20/15 3:32:00Notes: Not to exceed 400mg/day. (Same As: Ultram) No Longer Active 07/21/2015 [facility] Artificial Tears 2 drp, Route: BOTH EYES, PRN, Drug form: SOLN, PRN as needed for dry eyes, Start date: 07/21/15 3:33:00 CDT, Duration: 30 day, Stop date: 09/19/15 3:32:00 CDT No Longer Active 07/21/2015 [facility] Nitroglycerin 0.4 MG Sublingual Tablet 0.4 mg, 1 tab, Route: SL, Drug form: TAB, Q5Min, Dosing Weight 99.574, kg, PRN Chest Pain, Start date: 07/21/15 3:33:00 CDT, Duration: 30 day, Stop date: 09/19/15 3:32:00 CDTNotes: (Same as:Nitroquick, Nitrostat) "Do Not Crush" Sublingual tablet No Longer Active 07/21/2015 [facility] Clonazepam 0.5 mg, 1 tab, Route: PO, Drug form: TAB, Q6H, Dosing Weight 99.574, kg, PRN Anxiety, Start date: 07/21/15 3:33:00, Duration: 30 day, Stop date: 08/20/15 3:32:00Notes: (Same As: KlonoPIN) No Longer Active 07/21/2015 [facility] Tylenol PO, Q6H, PRN Pain Score 1-5, 0 Refill(s) No Longer Active 07/21/2015 [facility] Hydrocortisone-Aloe 0.5% topical cream 1 appl, TOP, BID, # 30 gm, 0 Refill(s) No Longer Active 07/21/2015 [facility] Aspirin 81 mg, PO, Daily, 0 Refill(s) Active 07/21/2015 [facility] 24 HR Nicotine 0.875 MG/HR Transdermal Patch =1 patch, Transdermal, Daily, 0 Refill(s) No Longer Active 07/21/2015 [facility] Clonidine Hydrochloride 0.1 MG Oral Tablet 0.1 mg=1 tab, PO, QID, 0 Refill(s) No Longer Active 07/21/2015 [facility] clonazePAM 0.5 mg oral tablet 0.5 mg=1 tab, PO, PRN, Prn anxiety q 6 hrs, 0 Refill(s) No Longer Active 07/21/2015 [facility] mirtazapine 15 mg oral tablet 15 mg=1 tab, PO, Bedtime, # 30 tab, 0 Refill(s) No Longer Active 07/21/2015 [facility] Alprazolam 0.25 MG Oral Tablet 0.25 mg=1 tab, PO, BID, PRN anxiety, stress, # 20 tab, 0 Refill(s) No Longer Active 07/21/2015 [facility] tramadol hydrochloride 50 MG Oral Tablet 50 mg=1 tab, PO, Q6H, PRN Pain, PRN for pain q 6 hrs, 0 Refill(s) No Longer Active 07/21/2015 [facility] Nitroglycerin 0.4 MG Sublingual Tablet 0.4 mg=1 tab, SL, Q5Min, PRN Chest Pain, Give up to 3 doses. Call 911 if pain persists., # 25 tab, 3 Refill(s) No Longer Active 07/21/2015 [facility] Artificial Tears BOTH EYES, PRN, 1 drop each eye q 4 hours, 0 Refill(s) No Longer Active 07/21/2015 [facility] Allergies, Adverse Reactions, Alerts No Known Medication Allergies Immunizations No Data Provided for This Section Results Order Name Results Value Reference Range Date Interpretation Comments Source HEMATOLOGY PT 14.0 12.0 - 14.7 11/29/2015 [facility] HEMATOLOGY INR 1.05 0.85 - 1.17 11/29/2015 [facility] LIPIDS CHD Risk 3.28 4.00 - 7.30 11/29/2015 [facility] LIPIDS Chol 210 <=199 mg/dL 11/29/2015 [facility] LIPIDS Trig 69 <=149 mg/dL 11/29/2015 [facility] LIPIDS HDL 64 >=61 mg/dL 11/29/2015 [facility] LIPIDS VLDL 14 11/29/2015 [facility] LIPIDS LDL (Calculated) 132 <=99 mg/dL 11/29/2015 [facility] CARDIAC ENZYMES Troponin-I <0.02 0.00 - 0.40 11/29/2015 [facility] CARDIAC ENZYMES Total CK 48 12 - 191 11/29/2015 [facility] CARDIAC ENZYMES Troponin-I <0.02 0.00 - 0.40 2015 [facility] CARDIAC ENZYMES Total CK 50 12 - 191 2015 [facility] CARDIAC ENZYMES CK MB Index 4.7 0.0 - 2.5 2015 [facility] CARDIAC ENZYMES BNP 92 <=100 pg/mL 2015 [facility] CARDIAC ENZYMES Troponin-I <0.02 0.00 - 0.40 2015 [facility] CARDIAC ENZYMES CK MB 2.7 0.5 - 3.6 2015 [facility] CARDIAC ENZYMES Total CK 57 12 - 191 2015 [facility] CHEM PANEL eGFR 96 2015 Result Comment: [...] Alk Phos 64 39 - 136 2015 [facility] CHEM PANEL Bili Total 0.3 0.2 - 1.3 2015 [facility]M PANEL CO2 29 24 - 32 2015 [facility] CHEM PANEL Chloride Lvl 106 95 - 109 2015 [facility] CHEM PANEL Potassium Lvl 4.0 3.5 - 5.1 2015 [facility] CHEM PANEL A/G Ratio 1.1 0.7 - 1.6 2015 [facility] CHEM PANEL Globulin 3.5 2.0 - 4.0 2015 [facility] CHEM PANEL B/C Ratio 13 6 - 25 2015 [facility] CHEM PANEL Sodium Lvl 141 135 - 145 2015 [facility] CHEM PANEL BUN 11 7 - 22 2015 [facility] CHEM PANEL Glucose Lvl 86 70 - 99 2015 [facility] CHEM PANEL Creatinine Lvl 0.86 0.50 - 1.40 2015 [facility] HEMATOLOGY Segs-Bands # 7.8 1.5 - 8.1 2015 [facility] HEMATOLOGY Basophils 0.9 0.0 - 1.0 2015 [facility] HEMATOLOGY Basophils # 0.1 0.0 - 0.2 2015 [facility] HEMATOLOGY Segs 67.3 45.0 - 75.0 2015 [facility] HEMATOLOGY Monocytes # 0.7 0.0 - 0.8 2015 [facility] HEMATOLOGY Lymphocytes # 3.0 1.0 - 5.5 2015 [facility] HEMATOLOGY Eosinophils 0.2 0.0 - 4.0 2015 [facility] HEMATOLOGY Lymphocytes 25.5 20.0 - 40.0 2015 [facility] Monocytes 6.1 2.0 - 12.0 2015 [facility] RBC 5.08 4.70 - 6.10 2015 [facility] WBC 11.6 3.7 - 10.4 2015 [facility] MPV 7.4 7.4 - 10.4 2015 [facility] Hct 43.6 42.0 - 54.0 2015 [facility] Hgb 14.0 14.0 - 18.0 2015 [facility] MCV 85.7 80.0 - 94.0 2015 [facility] MCH 27.5 27.0 - 31.0 2015 [facility] RDW 15.0 11.5 - 14.5 2015 [facility] Platelet 244 133 - 450 2015 [facility] MCHC 32.1 32.0 - 36.0 2015 [facility] ELECTROLYTES AGAP 14.0 10.0 - 20.0 08/22/2015 [facility] ELECTROLYTES Calcium Lvl 8.3 8.5 - 10.5 08/22/2015 [facility] ELECTROLYTES CO2 26 24 - 32 08/22/2015 [facility] ELECTROLYTES eGFR 104 08/22/2015 Result Comment: The [...] be multiplied by the estimated BMI. [facility] ELECTROLYTES Chloride Lvl 107 95 - 109 08/22/2015 [facility] ELECTROLYTES Potassium Lvl 4.0 3.5 - 5.1 08/22/2015 [facility] ELECTROLYTES Glucose Lvl 84 70 - 99 08/22/2015 [facility] ELECTROLYTES Sodium Lvl 143 135 - 145 08/22/2015 [facility] ELECTROLYTES BUN 11 7 - 22 08/22/2015 [facility] ELECTROLYTES Creatinine Lvl 0.71 0.50 - 1.40 08/22/2015 [facility] HEMATOLOGY Basophils # 0.0 0.0 - 0.2 08/22/2015 [facility] HEMATOLOGY Eosinophils 1.2 0.0 - 4.0 08/22/2015 [facility] HEMATOLOGY Monocytes 9.5 2.0 - 12.0 08/22/2015 [facility] HEMATOLOGY Monocytes # 0.6 0.0 - 0.8 08/22/2015 [facility] HEMATOLOGY Segs 59.2 45.0 - 75.0 08/22/2015 [facility] HEMATOLOGY Lymphocytes 29.8 20.0 - 40.0 08/22/2015 [facility] HEMATOLOGY Basophils 0.3 0.0 - 1.0 08/22/2015 [facility] HEMATOLOGY Segs-Bands # 3.8 1.5 - 8.1 08/22/2015 [facility] HEMATOLOGY Eosinophils # 0.1 0.0 - 0.5 08/22/2015 [facility] HEMATOLOGY Lymphocytes # 1.9 1.0 - 5.5 08/22/2015 [facility] HEMATOLOGY RBC 4.51 4.70 - 6.10 08/22/2015 [facility] HEMATOLOGY WBC 6.5 3.7 - 10.4 08/22/2015 [facility] HEMATOLOGY MCV 87.9 80.0 - 94.0 08/22/2015 [facility] HEMATOLOGY Hct 39.6 42.0 - 54.0 08/22/2015 [facility] HEMATOLOGY Hgb 12.7 14.0 - 18.0 08/22/2015 [facility] HEMATOLOGY MCHC 32.1 32.0 - 36.0 08/22/2015 [facility] HEMATOLOGY MCH 28.2 27.0 - 31.0 08/22/2015 [facility] HEMATOLOGY MPV 8.1 7.4 - 10.4 08/22/2015 [facility] HEMATOLOGY Platelet 161 133 - 450 08/22/2015 [facility] HEMATOLOGY RDW 16.3 11.5 - 14.5 08/22/2015 [facility] CARDIAC ENZYMES Troponin-I <0.02 0.00 - 0.40 08/19/2015 [facility] CARDIAC ENZYMES Total CK 54 12 - 191 08/19/2015 [facility] CARDIAC ENZYMES Troponin-I <0.02 0.00 - 0.40 08/18/2015 [facility] CARDIAC ENZYMES Total CK 30 12 - 191 08/18/2015 [facility] CARDIAC ENZYMES Troponin-I <0.02 0.00 - 0.40 08/18/2015 [facility] HEMATOLOGY PT 24.6 12.0 - 14.7 08/18/2015 [facility] HEMATOLOGY INR 2.18 0.85 - 1.17 08/18/2015 [facility] BACTERIAL - SEROLOGY MRSA by PCR Negative (08/18/15 1:44 PM) 08/18/2015 [facility] CARDIAC ENZYMES CK MB Index 3.2 0.0 - 2.5 08/18/2015 [facility] CARDIAC ENZYMES CK MB 2.0 0.5 - 3.6 08/18/2015 [facility] CARDIAC ENZYMES Total CK 62 12 - 191 08/18/2015 [facility] CHEM PANEL Lipase Lvl 114 73 - 393 08/18/2015 [facility] CHEM PANEL eGFR 97 08/18/2015 Result Comment: [...] be multiplied by the estimated BMI. [facility] CHEM PANEL AGAP 14.6 10.0 - 20.0 08/18/2015 [facility] CHEM PANEL CO2 23 24 - 32 08/18/2015 [facility] CHEM PANEL Calcium Lvl 8.7 8.5 - 10.5 08/18/2015 [facility] CHEM PANEL Globulin 3.6 2.0 - 4.0 08/18/2015 [facility] CHEM PANEL Total Protein 6.7 6.4 - 8.4 08/18/2015 [facility] CHEM PANEL Albumin Lvl 3.1 3.5 - 5.0 08/18/2015 [facility] CHEM PANEL AST 21 0 - 37 08/18/2015 [facility] CHEM PANEL ALT 36 0 - 65 08/18/2015 [facility] CHEM PANEL B/C Ratio 25 6 - 25 08/18/2015 [facility] CHEM PANEL Bili Total 0.4 0.2 - 1.3 08/18/2015 [facility] CHEM PANEL A/G Ratio 0.9 0.7 - 1.6 08/18/2015 [facility] CHEM PANEL Alk Phos 64 39 - 136 08/18/2015 [facility] CHEM PANEL Glucose Lvl 85 70 - 99 08/18/2015 [facility] CHEM PANEL BUN 21 7 - 22 08/18/2015 [facility] CHEM PANEL Creatinine Lvl 0.83 0.50 - 1.40 08/18/2015 [facility] CHEM PANEL Potassium Lvl 4.6 3.5 - 5.1 08/18/2015 [facility] CHEM PANEL Sodium Lvl 140 135 - 145 08/18/2015 [facility] CHEM PANEL Chloride Lvl 107 95 - 109 08/18/2015 [facility] HEMATOLOGY Basophils # 0.1 0.0 - 0.2 08/18/2015 [facility] HEMATOLOGY Eosinophils # 0.1 0.0 - 0.5 08/18/2015 [facility] HEMATOLOGY Monocytes # 1.0 0.0 - 0.8 08/18/2015 [facility] HEMATOLOGY Lymphocytes # 2.4 1.0 - 5.5 08/18/2015 [facility] HEMATOLOGY Eosinophils 0.5 0.0 - 4.0 08/18/2015 [facility] HEMATOLOGY Monocytes 7.3 2.0 - 12.0 08/18/2015 [facility] HEMATOLOGY Segs-Bands # 10.0 1.5 - 8.1 08/18/2015 [facility] HEMATOLOGY Basophils 0.4 0.0 - 1.0 08/18/2015 [facility] HEMATOLOGY Lymphocytes 18.0 20.0 - 40.0 08/18/2015 [facility] HEMATOLOGY Segs 73.8 45.0 - 75.0 08/18/2015 [facility] HEMATOLOGY Plt Morph Normal (08/18/15 9:22 AM) 08/18/2015 [facility] HEMATOLOGY RBC Morph Normal (08/18/15 9:22 AM) 08/18/2015 [facility] HEMATOLOGY Platelet 207 133 - 450 08/18/2015 Result Comment: Reviewed. [facility] HEMATOLOGY RBC 4.79 4.70 - 6.10 08/18/2015 [facility] HEMATOLOGY WBC 13.5 3.7 - 10.4 08/18/2015 [facility] HEMATOLOGY Hgb 13.7 14.0 - 18.0 08/18/2015 [facility] HEMATOLOGY Hct 42.1 42.0 - 54.0 08/18/2015 [facility] HEMATOLOGY RDW 16.1 11.5 - 14.5 08/18/2015 [facility] HEMATOLOGY MPV 7.7 7.4 - 10.4 08/18/2015 [facility] HEMATOLOGY MCH 28.5 27.0 - 31.0 08/18/2015 [facility] HEMATOLOGY MCV 87.9 80.0 - 94.0 08/18/2015 [facility] HEMATOLOGY MCHC 32.4 32.0 - 36.0 08/18/2015 [facility] ELECTROLYTES AGAP 11.7 10.0 - 20.0 08/17/2015 [facility] ELECTROLYTES eGFR 112 08/17/2015 Result [...] should be multiplied by the estimated BMI. [facility] ELECTROLYTES Calcium Lvl 7.1 8.5 - 10.5 08/17/2015 [facility] ELECTROLYTES Creatinine Lvl 0.58 0.50 - 1.40 08/17/2015 [facility] ELECTROLYTES Sodium Lvl 146 135 - 145 08/17/2015 [facility] ELECTROLYTES BUN 13 7 - 22 08/17/2015 [facility] ELECTROLYTES Glucose Lvl 78 70 - 99 08/17/2015 [facility] ELECTROLYTES Chloride Lvl 115 95 - 109 08/17/2015 [facility] ELECTROLYTES CO2 23 24 - 32 08/17/2015 [facility] ELECTROLYTES Potassium Lvl 3.7 3.5 - 5.1 08/17/2015 [facility] HEMATOLOGY MCH 28.8 27.0 - 31.0 08/17/2015 [facility] HEMATOLOGY Hct 36.5 42.0 - 54.0 08/17/2015 [facility] HEMATOLOGY MCV 88.6 80.0 - 94.0 08/17/2015 [facility] HEMATOLOGY Hgb 11.8 14.0 - 18.0 08/17/2015 [facility] HEMATOLOGY Platelet 149 133 - 450 08/17/2015 [facility] HEMATOLOGY MCHC 32.5 32.0 - 36.0 08/17/2015 [facility] HEMATOLOGY RDW 15.4 11.5 - 14.5 08/17/2015 [facility] HEMATOLOGY MPV 7.2 7.4 - 10.4 08/17/2015 [facility] HEMATOLOGY WBC 8.5 3.7 - 10.4 08/17/2015 [facility] HEMATOLOGY RBC 4.12 4.70 - 6.10 08/17/2015 [facility] HEMATOLOGY Monocytes 7.1 2.0 - 12.0 08/17/2015 [facility] HEMATOLOGY Basophils 0.4 0.0 - 1.0 08/17/2015 [facility] HEMATOLOGY Segs-Bands # 5.8 1.5 - 8.1 08/17/2015 [facility] HEMATOLOGY Eosinophils 0.5 0.0 - 4.0 08/17/2015 [facility] HEMATOLOGY Lymphocytes 23.4 20.0 - 40.0 08/17/2015 [facility] HEMATOLOGY Segs 68.6 45.0 - 75.0 08/17/2015 [facility] HEMATOLOGY Lymphocytes # 2.0 1.0 - 5.5 08/17/2015 [facility] HEMATOLOGY Monocytes # 0.6 0.0 - 0.8 08/17/2015 [facility] HEMATOLOGY INR 2.09 0.85 - 1.17 08/17/2015 [facility] HEMATOLOGY PT 23.8 12.0 - 14.7 08/17/2015 [facility] HEMATOLOGY INR 1.84 0.85 - 1.17 08/16/2015 [facility] HEMATOLOGY PT 21.6 12.0 - 14.7 08/16/2015 [facility] HEMATOLOGY INR 2.24 0.85 - 1.17 08/15/2015 [facility] HEMATOLOGY PT 25.1 12.0 - 14.7 08/15/2015 [facility] ELECTROLYTES Potassium Lvl 4.2 3.5 - 5.1 08/14/2015 [facility] ELECTROLYTES Chloride Lvl 107 95 - 109 08/14/2015 [facility] ELECTROLYTES Creatinine Lvl 0.93 0.50 - 1.40 08/14/2015 [facility] ELECTROLYTES Sodium Lvl 140 135 - 145 08/14/2015 [facility] ELECTROLYTES BUN 27 7 - 22 08/14/2015 [facility] ELECTROLYTES Calcium Lvl 8.5 8.5 - 10.5 08/14/2015 [facility] ELECTROLYTES CO2 26 24 - 32 08/14/2015 [facility] ELECTROLYTES eGFR 91 08/14/2015 Result [...] should be multiplied by the estimated BMI. [facility] ELECTROLYTES Glucose Lvl 84 70 - 99 08/14/2015 [facility] ELECTROLYTES AGAP 11.2 10.0 - 20.0 08/14/2015 [facility] CHEM PANEL Magnesium Lvl 2.2 1.8 - 2.4 08/10/2015 [facility] CHEM PANEL eGFR 102 08/10/2015 [...] should be multiplied by the estimated BMI. [facility] CHEM PANEL Calcium Lvl 8.8 8.5 - 10.5 08/10/2015 [facility] CHEM PANEL CO2 28 24 - 32 08/10/2015 [facility] CHEM PANEL Chloride Lvl 106 95 - 109 08/10/2015 [facility] CHEM PANEL Potassium Lvl 4.2 3.5 - 5.1 08/10/2015 [facility] CHEM PANEL Sodium Lvl 140 135 - 145 08/10/2015 [facility] CHEM PANEL BUN 20 7 - 22 08/10/2015 [facility] CHEM PANEL Creatinine Lvl 0.74 0.50 - 1.40 08/10/2015 [facility] CHEM PANEL Glucose Lvl 78 70 - 99 08/10/2015 [facility] CHEM PANEL AGAP 10.2 10.0 - 20.0 08/10/2015 [facility] CHEM PANEL Phosphorus 3.7 2.5 - 4.5 08/10/2015 [facility] HEMATOLOGY RBC Morph Normal (08/10/15 5:29 AM) 08/10/2015 [facility] HEMATOLOGY Plt Morph Normal (08/10/15 5:29 AM) 08/10/2015 [facility] HEMATOLOGY Atypical Lymphs 0.0 <=0.0 % 08/10/2015 [facility] HEMATOLOGY Myelocytes 1.0 <=0.0 % 08/10/2015 [facility] HEMATOLOGY Metamyelocytes 1.0 0.0 - 1.0 08/10/2015 [facility] HEMATOLOGY Lymphocytes 24.0 20.0 - 40.0 08/10/2015 [facility] HEMATOLOGY Monocytes 6.0 2.0 - 12.0 08/10/2015 [facility] HEMATOLOGY Segs-Bands # 8.4 1.5 - 8.1 08/10/2015 [facility] HEMATOLOGY Bands 1.0 0.0 - 11.0 08/10/2015 [facility] HEMATOLOGY Monocytes # 0.7 0.0 - 0.8 08/10/2015 [facility] HEMATOLOGY Lymphocytes # 3.0 1.0 - 5.5 08/10/2015 [facility] HEMATOLOGY Segs 67.0 45.0 - 75.0 08/10/2015 [facility] HEMATOLOGY WBC 12.3 3.7 - 10.4 08/10/2015 [facility] HEMATOLOGY RBC 4.82 4.70 - 6.10 08/10/2015 [facility] HEMATOLOGY Hgb 13.6 14.0 - 18.0 08/10/2015 [facility] HEMATOLOGY MCH 28.3 27.0 - 31.0 08/10/2015 [facility] HEMATOLOGY Platelet 227 133 - 450 08/10/2015 [facility] HEMATOLOGY MCHC 32.4 32.0 - 36.0 08/10/2015 [facility] HEMATOLOGY RDW 15.3 11.5 - 14.5 08/10/2015 [facility] HEMATOLOGY MCV 87.2 80.0 - 94.0 08/10/2015 [facility] HEMATOLOGY Hct 42.0 42.0 - 54.0 08/10/2015 [facility] HEMATOLOGY MPV 7.2 7.4 - 10.4 08/10/2015 [facility] CHEM PANEL Magnesium Lvl 2.1 1.8 - 2.4 08/09/2015 [facility] CHEM PANEL Phosphorus 3.9 2.5 - 4.5 08/09/2015 [facility] HEMATOLOGY Myelocytes 1.0 <=0.0 % 08/09/2015 [facility] HEMATOLOGY RBC Morph Normal (08/09/15 4:34 AM) 08/09/2015 [facility] HEMATOLOGY Atypical Lymphs 1.0 <=0.0 % 08/09/2015 [facility] HEMATOLOGY Monocytes # 0.4 0.0 - 0.8 08/09/2015 [facility] HEMATOLOGY Segs-Bands # 7.7 1.5 - 8.1 08/09/2015 [facility] HEMATOLOGY Lymphocytes # 2.8 1.0 - 5.5 08/09/2015 [facility] HEMATOLOGY Plt Morph Normal (08/09/15 4:34 AM) 08/09/2015 [facility] HEMATOLOGY Lymphocytes 24.0 20.0 - 40.0 08/09/2015 [facility] HEMATOLOGY Monocytes 4.0 2.0 - 12.0 08/09/2015 [facility] HEMATOLOGY Segs 65.0 45.0 - 75.0 08/09/2015 [facility] HEMATOLOGY Bands 4.0 0.0 - 11.0 08/09/2015 [facility] HEMATOLOGY Metamyelocytes 1.0 0.0 - 1.0 08/09/2015 [facility] HEMATOLOGY MCV 88.1 80.0 - 94.0 08/09/2015 [facility] HEMATOLOGY MCHC 32.6 32.0 - 36.0 08/09/2015 [facility] HEMATOLOGY MCH 28.7 27.0 - 31.0 08/09/2015 [facility] HEMATOLOGY Hct 42.6 42.0 - 54.0 08/09/2015 [facility] HEMATOLOGY Hgb 13.9 14.0 - 18.0 08/09/2015 [facility] HEMATOLOGY MPV 7.4 7.4 - 10.4 08/09/2015 [facility] HEMATOLOGY RDW 15.4 11.5 - 14.5 08/09/2015 [facility] HEMATOLOGY Platelet 205 133 - 450 08/09/2015 [facility] HEMATOLOGY RBC 4.83 4.70 - 6.10 08/09/2015 [facility] HEMATOLOGY WBC 11.1 3.7 - 10.4 08/09/2015 [facility] CHEM PANEL Magnesium Lvl 2.2 1.8 - 2.4 08/08/2015 [facility] CHEM PANEL Phosphorus 4.1 2.5 - 4.5 08/08/2015 [facility] HEMATOLOGY Eosinophils # 0.2 0.0 - 0.5 08/08/2015 [facility] HEMATOLOGY Basophils # 0.1 0.0 - 0.2 08/08/2015 [facility] HEMATOLOGY Plt Morph Normal (08/08/15 3:55 AM) 08/08/2015 [facility] HEMATOLOGY RBC Morph Normal (08/08/15 3:55 AM) 08/08/2015 [facility] HEMATOLOGY Basophils 0.5 0.0 - 1.0 08/08/2015 [facility] HEMATOLOGY Eosinophils 1.2 0.0 - 4.0 08/08/2015 [facility] HEMATOLOGY Basophils 0.7 0.0 - 1.0 08/07/2015 [facility] HEMATOLOGY Eosinophils 0.4 0.0 - 4.0 08/07/2015 [facility] HEMATOLOGY Basophils # 0.1 0.0 - 0.2 08/07/2015 [facility] HEMATOLOGY PTT 69.5 22.9 - 35.8 08/06/2015 [facility] HEMATOLOGY Toxic Gran See Note 1 (08/06/15 3:33 AM) None Seen 08/06/2015 Result Comment: Slight [facility] HEMATOLOGY Atypical Lymphs 0.0 <=0.0 % 08/06/2015 [facility] HEMATOLOGY Bands 1.0 0.0 - 11.0 08/06/2015 [facility] HEMATOLOGY PTT 64.0 22.9 - 35.8 08/05/2015 [facility] HEMATOLOGY Toxic Gran slight 08/05/2015 [facility] HEMATOLOGY PTT 68.9 22.9 - 35.8 08/05/2015 [facility] HEMATOLOGY Anisocyte 1+ *ABN* (07/31/15 10:41 AM) None Seen 07/31/2015 [facility] HEMATOLOGY Basophils # 0.2 0.0 - 0.2 07/31/2015 [facility] CHEM PANEL Lactic Acid Lvl 1.0 0.5 - 2.2 07/30/2015 [facility] HEMATOLOGY POC Activated Clotting Time 206 07/28/2015 [facility] HEMATOLOGY Eosinophils # 0.1 0.0 - 0.5 07/28/2015 [facility] HEMATOLOGY Eosinophils # 0.1 0.0 - 0.5 07/27/2015 [facility] LIPIDS HDL 45 >=61 mg/dL 07/25/2015 [facility] LIPIDS Chol 162 <=199 mg/dL 07/25/2015 [facility] LIPIDS Trig 74 <=149 mg/dL 07/25/2015 [facility] LIPIDS VLDL 15 07/25/2015 [facility] LIPIDS LDL (Calculated) 102 <=99 mg/dL 07/25/2015 [facility] LIPIDS CHD Risk 3.60 4.00 - 7.30 07/25/2015 [facility] CARDIAC ENZYMES Troponin-I 0.09 0.00 - 0.40 07/21/2015 [facility] CARDIAC ENZYMES Troponin-T 0.035 0.000 - 0.100 07/21/2015 [facility] CARDIAC ENZYMES Total CK 36 12 - 191 07/21/2015 [facility] CARDIAC ENZYMES Troponin-I 0.10 0.00 - 0.40 07/21/2015 [facility] CARDIAC ENZYMES Total CK 32 12 - 191 07/21/2015 [facility] CARDIAC ENZYMES BNP 158 <=100 pg/mL 07/21/2015 [facility] CHEM PANEL A/G Ratio 0.9 0.7 - 1.6 07/21/2015 [facility] CHEM PANEL Bili Total 0.8 0.2 - 1.3 07/21/2015 [facility] CHEM PANEL Alk Phos 59 39 - 136 07/21/2015 [facility] CHEM PANEL Globulin 3.3 2.0 - 4.0 07/21/2015 [facility] CHEM PANEL B/C Ratio 14 6 - 25 07/21/2015 [facility] CHEM PANEL AST 6 0 - 37 07/21/2015 [facility] CHEM PANEL ALT 15 0 - 65 07/21/2015 [facility] CHEM PANEL Albumin Lvl 2.9 3.5 - 5.0 07/21/2015 [facility] CHEM PANEL Total Protein 6.2 6.4 - 8.4 07/21/2015 [facility] CHEM PANEL Amylase Lvl 46 25 - 115 07/21/2015 [facility] CHEM PANEL Lipase Lvl 85 73 - 393 07/21/2015 [facility] SPECIAL CHEMISTRY Hgb A1C 5.4 <=5.6 % 07/21/2015 [facility] Pathology Reports No Data Provided for This Section Diagnostic Reports Report Value Date Source Chest CTA Patient Name: ALETHA LOWERY : 1955; Age: 59 years Male MR: [id number] Study: Chest CTA 2015 3:09 PM CDT [...] 2015 6:09 PM CDT. SL: ANGELY 2015 [facility] 1view DX Study: Chest 1view DX Clinical Indication: Dyspnea Comparison: Chest x-ray from 08/21/2015 FINDINGS: Left sided dual-chamber pacemaker is stable. Cardiac silhouette is normal in size. Small right pleural effusion is seen. There is no pneumothorax. The osseous structures are unremarkable. IMPRESSION: Small right pleural effusion SL: [id number] 2015 [facility] 1view DX Patient Name: ALETHA LOWERY. : 1955; Age: 59 years y/o; Male. MR: [id number]. Ordering Physician: Jocy Bailon MD. PORTABLE CHEST [...] Left lung is unremarkable. SL: [id number] 08/21/2015 [facility] Knee 1-2 Views Bilateral DX Two-view bilateral [...] knee joint effusion suspected. SL: WR1-M 08/20/2015 [facility] Brain wo contrast CT Patient Name: ALETHA LOWERY : 1955; Age: 59 years; Gender: Male MR: [id number] Ordering Physician: Piter Leslie MD PROCEDURE: CT head without contrast INDICATION: Pain Post Trauma. Fall with trauma to the frontal area. Patient is on blood thinners. TECHNIQUE: CT images were obtained from the foramen magnum to the vertex without the use of intravenous contrast on a multidetector CT. Total CT radiation dose: VQF=4797 mGy-cm COMPARISON: None. FINDINGS: No evidence for [...] 3. Possible mild right maxillary sinusitis. SL: [id number] 08/20/2015 [facility] Chest 1view DX CHEST RADIOGRAPH ONE VIEW [...] and/or thickening. 3. Enlarged cardiac silhouette. SL: [id number] 08/18/2015 [facility] Chest 1view DX EXAM: XR CHEST 1 VIEW DATE: 08/06/2015 8:49 AM CDT INDICATION: Coughing. FINDINGS: Comparison is made to August 01. The cardiomediastinal silhouette, life-support lines and tubes are stable. The lungs are clear of consolidation. There are calcified granulomas in the right lower lobe. No pleural effusions are identified. IMPRESSION: No acute abnormality. 08/06/2015 [facility] Chest 1view DX EXAM: XR CHEST 1 VIEW DATE: 08/02/2015 10:20 AM CDT INDICATION: Abnormal chest sounds COMPARISON: Chest x-ray from 07/30/2015 TECHNIQUE: AP chest FINDINGS: Stable right arm PICC. Stable left implantable cardiac defibrillator Stable cardiomediastinal silhouette. Small right pleural effusion versus pleural thickening. No new pleural or parenchymal based abnormalities. IMPRESSION: No significant change. 08/02/2015 [facility] Chest 1view DX EXAM: XR CHEST 1 VIEW DATE: 07/30/2015 7:41 PM CDT INDICATION: Dyspnea COMPARISON: Yesterday TECHNIQUE: AP chest FINDINGS: Stable right arm PICC. Stable left implantable cardiac defibrillator Stable cardiomediastinal silhouette. Small right pleural effusion versus pleural thickening. No new pleural or parenchymal based abnormalities. IMPRESSION: No significant changes compared to yesterday. 07/30/2015 [facility] HVI VAS Venous Lower Ext [...] no evidence of deep venous thrombosis. 07/29/2015 [facility] Chest 1view DX EXAM: XR CHEST 1 VIEW DATE: 07/29/2015 9:47 AM CDT INDICATION: Shortness of Breath COMPARISON: 07/21/2015 TECHNIQUE: AP chest FINDINGS: Stable right arm PICC. Stable left implantable cardiac defibrillator Stable cardiomediastinal silhouette. Small right pleural effusion. No new pleural or parenchymal based abnormalities. IMPRESSION: No significant changes compared to yesterday at 2:24 AM 07/29/2015 [facility] HVI VAS Arterial Extracranial Doppler [...] was noted in the vertebral arteries. 07/21/2015 [facility] Chest 1view DX EXAM: XR [...] tip overlies the right brachiocephalic vein. 07/21/2015 [facility] Consultation Notes No Data Provided for This Section Discharge Summaries No Data Provided for This Section History and Physicals No Data Provided for This Section Vital Signs Vital Sign Value Date Comments Source Systolic (mm Hg) 109 12/02/2015 [facility] Diastolic (mm Hg) 76 12/02/2015 [facility] Respitory Rate 22 12/02/2015 [facility] Heart Rate 87 12/02/2015 [facility] Temperature Oral (F) 97.6 F 12/02/2015 [facility] Systolic (mm Hg) 122 12/02/2015 [facility] Diastolic (mm Hg) 82 12/02/2015 [facility] Heart Rate 74 12/02/2015 [facility] Temperature Oral (F) 97.3 F 12/02/2015 [facility] Respitory Rate 21 12/02/2015 [facility] Temperature Oral (F) 97.3 F 12/02/2015 [facility] Heart Rate 73 12/02/2015 [facility] Systolic (mm Hg) 104 12/02/2015 [facility] Diastolic (mm Hg) 67 12/02/2015 [facility] Respitory Rate 16 12/02/2015 [facility] Height 182.88 cm 2015 [facility] BMI Calculated 31.53 2015 [facility] Weight 105.455 2015 [facility] Weight 113.636 2015 [facility] Height 182.88 cm 2015 [facility] BMI Calculated 33.98 2015 [facility] Respitory Rate 20 08/23/2015 [facility] Heart Rate 83 08/23/2015 [facility] Temperature Oral (F) 97.4 F 08/23/2015 [facility] Systolic (mm Hg) 107 08/23/2015 [facility] Diastolic (mm Hg) 53 08/23/2015 [facility] Temperature Oral (F) 97.7 F 08/23/2015 [facility] Heart Rate 82 08/23/2015 [facility] Respitory Rate 20 08/23/2015 [facility] Systolic (mm Hg) 130 08/23/2015 [facility] Diastolic (mm Hg) 84 08/23/2015 [facility] Respitory Rate 20 08/23/2015 [facility] Temperature Oral (F) 97.3 F 08/23/2015 [facility] Systolic (mm Hg) 128 08/23/2015 [facility] Diastolic (mm Hg) 85 08/23/2015 [facility] Height 182.88 cm 08/18/2015 [facility] Weight 95 08/18/2015 [facility] BMI Calculated 28.4 08/18/2015 [facility] Heart Rate 83 08/18/2015 [facility] Systolic (mm Hg) 125 08/18/2015 [facility] Diastolic (mm Hg) 82 08/18/2015 [facility] Heart Rate 105 08/18/2015 [facility] Respitory Rate 18 08/18/2015 [facility] Temperature Oral (F) 97.9 F 08/18/2015 [facility] Heart Rate 83 08/18/2015 [facility] Respitory Rate 18 08/18/2015 [facility] Systolic (mm Hg) 91 08/18/2015 [facility] Diastolic (mm Hg) 67 08/18/2015 [facility] Temperature Oral (F) 97.7 F 08/17/2015 [facility] Systolic (mm Hg) 102 08/17/2015 [facility] Diastolic (mm Hg) 71 08/17/2015 [facility] Respitory Rate 18 08/17/2015 [facility] Heart Rate 81 08/17/2015 [facility] Temperature Oral (F) 97.7 F 08/17/2015 [facility] BMI Calculated 29.77 07/21/2015 [facility] Weight 99.574 07/21/2015 [facility] Height 182.88 cm 07/21/2015 [facility] Encounters Location Location Details Encounter Type Encounter Number Reason For Visit Attending Provider ADM Date DC Date Status Source [facility] Inpatient [id number] Arie Chung 07/21/2015 08/18/[address] [facility] OBS Observation Patient [id number] Elham Bryson 08/18/2015 08/23/2015 [facility] Inpatient [id number] Octavio Dc Jr 2015 12/02/2015 [facility] Procedures Procedure Code Date Perfomer Comments Source Insertion of cardiac pacemaker [id number] [facility] Assessment and Plan Assessment and Plan Date [...] CTA of the chest done at the [facility]. Those records would be helpful, to determineif [...] Will likely need SW assistance. [facility] Providers Hospitalist Service is primary. Call with questions. 12/02/2015 BALDO Rosales Extracted from:Title: Discharge Summary Author: Jocy Bailon MD Date: 08/23/15 <Discharge Summary> Attending: Elham Bryson MD Service: Internal Medicine Code status: None Specified=FULL CODE Reason for Admission: CHEST PAIN, BRADYCARDIA, SUICIDAL IDEATION Working DRG: None Documented Isolation: None Documented Consulting Physicians: Humberto Beavers MD Office: MSO: [id number] Service: Cardiology Piter Leslie MD Office: MSO: [id number] Service: Medicine Jocy Bailon MD Office: MSO: [id number] Service: Medicine Elham Bryson MD Office: MSO: [id number] Service: Medicine Admission Date: 08/18/2015 Discharge Date: [...] dx iwth PE, who was sent from [facility] for an episode of bradycardia [...] in 1 week after discharge from [facility] I have spent 35 min with the patient and in coordinating discharge. Extracted from:Title: [facility] Cardiology Consult Note Author: Rosemary Vasquez [...] consult. Patient okay to discharge back to [facility]. He should follow-up with PCP or University Demonstrator upon discharge. 08/23/2015 [facility] Extracted from:Title: Clinical Document Author: Arie Chung MD Date: 08/16/15 Acute Care Service Line Progress Note Pager#[phone] Attending: Arie Chung Subjective: complains of back [...] alcohol abuse and COPD who presented to [facility] with chest pain as an outside [...] would otherwise require daily venous sticks. 08/18/2015 [facility] Plan of Care No Data [...] Yes; Reg Smoking Cessation Counseling No 12/01/2015 [facility] Social History TypeResponse Alcohol Current, Type Beer. [...] Reg Smoking Cessation Counseling No 07/21/2015 [facility] Social History TypeResponse Alcohol Current, Type Beer. [...] Yes; Reg Smoking Cessation Counseling No 07/21/2015 [facility] Family History No Data Provided for This Section Advance Directives No Data Provided for This Section Functional Status No Data Provided for This Section
[2018-12-16 07:28] LABS: BILIRUBIN,URINE NEGATIVE (NEGATIVE); CLARITY,URINE CLEAR (CLEAR); COLOR,URINE YELLOW (YELLOW); KETONES,URINE NEGATIVE (NEGATIVE); LEUKOCYTE ESTERASE ,URINE NEGATIVE (NEGATIVE); NITRITE,URINE NEGATIVE (NEGATIVE); PROTEIN,URINE DIPSTICK NEGATIVE (NEGATIVE); URINE UROBILINOGEN 0.2 mg/dL (0.2 - 1)
[2018-12-16] MEDS ORDERED: AZITHROMYCIN 500MG/NS 250 ML 250 ML IV SCH (07:30)
[2018-12-16 07:49] LABS: BACTERIA,URINE FEW /HPF; EPITHELIAL CELLS,URINE FEW /LPF; RBC,URINE 0-5 /HPF (0-5); WBC,URINE (MAN) 0-5 /HPF (0-5)
[2018-12-16] MEDS ORDERED: MIDODRINE 2.5 MG TAB PO SCH ×2 (08:00→12:00)
[2018-12-16 09:03] LABS: ABG HCO3 25 mmol/L (23-28); ABG PCO2 49 mmHg (41-51); ABG PH 7.31 (7.31-7.41); ABG PO2 121 mmHg (80-105)
[2018-12-16] MEDS ORDERED: LASIX40 MG PO (09:09)
[2018-12-16] MEDS: ALBUTEROL/IPRATROPIUM 3 ML NEB NEB SCH ×2 (09:10→12:39)
[2018-12-16] MEDS ORDERED: ACETAZOLAMIDE250 MG PO (09:11)
[2018-12-16] MEDS ORDERED: BUMETANIDE1 MG PO (09:18)
[2018-12-16] MEDS ORDERED: CARVEDILOL25 MG PO (09:19)
[2018-12-16] MEDS ORDERED: LISINOPRIL2.5 MG PO (09:20)
[2018-12-16] MEDS ORDERED: LEXAPRO10 MG PO (09:20)
[2018-12-16] MEDS ORDERED: RANEXA500 MG PO (09:21)
[2018-12-16 09:30] VITALS: BP 138/88
[2018-12-16] MEDS ORDERED: FUROSEMIDE INJ 10 MG/ML 4 ML VIAL ONE (09:44)
[2018-12-16] MEDS ORDERED: ACETAMINOPHEN/CODEINE 300MG - 30MG TAB PO PRN (09:45)
[2018-12-16] MEDS ORDERED: PREDNISONE5 MG PO (09:55)
[2018-12-16] MEDS ORDERED: ATIVAN0.5 MG PO (09:55)
[2018-12-16] MEDS ORDERED: ACETAZOLAMIDE 250 MG TAB PO ONE (10:00)
[2018-12-16] MEDS ORDERED: FUROSEMIDE INJ 10 MG/ML 4 ML VIAL IV ONE (10:15)
[2018-12-16 11:00] VITALS: BP 134/86
[2018-12-16] MEDS ORDERED: METHYLPREDNISOLONE SOD SUCC 40 MG/ML VIAL 1ML IV SCH (12:00)
[2018-12-16] MEDS ORDERED: MIDODRINE HCL 5 MG TABLET PO SCH (12:00)
[2018-12-16 13:00] VITALS: BP 108/72
--- NOTE | 2018-12-16 13:10 | NUR ---
Patient arrived from ER this morning on bipap. Patient eventually transitioned to 3L NC. Medication list placed in computer however patient states he has no idea what medications he has been taking, he states I just take whatever they give me at the facility. [facility] CEO [employer] BOARD DIRECTOR came and assessed patient, per CEO & BOARD DIRECTOR he was discharged less than a week ago. [facility] contacted to see if patient has been taking midodrine that was prescribed upon discharge. Per facility he has not been taking the medication. When pt is questioned about why he has not been following up with hammer driver or PCP outpatient, pt states no one will take him, and there is no way for him to get there. [facility] CEO & BOARD DIRECTOR called [facility] and asked if there is a way they can take him to follow up visits, they state they can take him they just need notification from him prior to appt. Updated medication list faxed to [facility]. Facility called to make sure they received the fax of updated medications, which [facility] has stated they received. Respiratory called to give breathing treatment prior to discharge. Patient weaned to room air and tolerating well, oxygen saturation 97%, resting in bed sleeping. network control operators supervisor notified of patient needing transport back to [facility].
[2018-12-16] MEDS ORDERED: BUMETANIDE 1 MG TAB PO SCH (14:00)
[2018-12-16] MEDS ORDERED: GUAIFENESIN 200 MG/10 ML UDC PO SCH (14:00)
--- NOTE | 2018-12-16 14:01 | NUR ---
Yellow cab arrived to transport patient back to [facility]. Patient does not appear to be in any s/s of distress at this time. Patient instructed to follow up with Dr. Montez in 1 week, as well as PCP.
[2018-12-16] MEDS ORDERED: LEVETIRACETAM 500 MG TAB PO SCH (17:00)
[2018-12-16] MEDS ORDERED: RANOLAZINE 500 MG TABSR PO SCH (17:00)
[2018-12-16] MEDS ORDERED: FUROSEMIDE 40 MG TAB PO SCH (17:00)
[2018-12-16] MEDS ORDERED: MIRTAZAPINE 15 MG TAB PO SCH (21:00)
[2018-12-16] MEDS ORDERED: ATORVASTATIN 20 MG TAB PO SCH (21:00)
[2018-12-16] MEDS ORDERED: QUETIAPINE FUMARATE 25 MG TAB PO SCH (21:00)
[2018-12-16] MEDS ORDERED: CLOPIDOGREL BISULFATE 75 MG TAB PO SCH (21:00)
[2018-12-16] MEDS ORDERED: LORATADINE 10 MG TAB PO SCH (21:00)
[2018-12-16] MEDS ORDERED: MONTELUKAST SODIUM 10 MG TAB PO SCH (21:00)
--- NOTE | 2018-12-17 02:44 | Discharge Summary ---
ADMISSION DIAGNOSES: Chronic pulmonary disease, chronic systolic congestive heart failure, anxiety, depression, history of coronary artery disease with stents, seizure, hyperlipidemia, anemia. DISCHARGE DIAGNOSES: Chronic obstructive pulmonary disease, chronic systolic congestive heart failure, anxiety, depression, history of coronary artery disease with stents, seizure, hyperlipidemia, anemia. HISTORY: COPD, chronic systolic CHF, CVA with left-sided deficit, [place], anxiety, depression, seizure, anemia, CAD with stents. SURGICAL HISTORY: Pacemaker and cardiac stent x1. FAMILY HISTORY: Noncontributory. SOCIAL HISTORY: Occasional alcohol use and one pack of cigarettes per day. HOSPITAL COURSE: A 63-year-old male complains of shortness of breath that began this morning. Shortness of breath worsens with activity. He is currently on 3 L nasal cannula and uses the same at the assisted living facility. He is very noncompliant and continues to smoke and take off his oxygen. On admission to the ER, his SpO2 was above 90%. Chest x-ray showed central pulmonary congestion and mild pulmonary edema and a trace right effusion. The ER put him on BiPAP, although his ABG was normal. His CO2 was 51 on the high end of normal, so he was given a dose of Diamox and discharged back to the assisted living facility. Last hospitalization, the patient said that he did not have a ride to get to his followup pulmonology appointments, so Case Management gave him a lot of information on how to get a ride. On this admission, he says he did not qualify for anything what the Case Management gave him, but I called his assisted living facility and they said they will take him to any appointments that he needs to with a 48-hour notice. I informed the patient, asked him if he was wearing his oxygen, he says he does, although the assisted living facility says he does not, so he said he did not have portable oxygen, so I went and got Case Management to speak to the patient. They said he does have portable oxygen and they gave him his company name so he could refill it when needed. The patient continues to be noncompliant and try to readmit to the hospital for some reason, rather than following up with the appointments as discussed. The patient understands discharge instructions and appears to agree with plan. Vital signs stable, the patient afebrile. Dictated by Carline Zamudio NP MD TARA Botello/BERNABE /[id number]
[2018-12-17] MEDS ORDERED: PANTOPRAZOLE SODIUM 40 MG SUSPDR.PKT PO SCH (07:30)
[2018-12-17] MEDS ORDERED: POTASSIUM CHLORIDE 20 MEQ TAB CR PO SCH (09:00)
[2018-12-17] MEDS ORDERED: DULOXETINE HCL 20 MG DELAYED RELEASE PO SCH (09:00)
[2018-12-17] MEDS ORDERED: PREDNISONE 5 MG TAB PO SCH (09:00)
[2018-12-17] MEDS ORDERED: FOLIC ACID 1 MG TAB PO SCH (09:00)
[2018-12-17] MEDS ORDERED: ASPIRIN 81 MG CHEW TAB PO SCH (09:00)
[2018-12-17] MEDS ORDERED: POTASSIUM CHLORIDE 10MEQ EA PO SCH (09:00)
[2018-12-17] MEDS ORDERED: ESCITALOPRAM OXALATE 10 MG TAB PO SCH (09:00)
[2018-12-17] MEDS ORDERED: CITALOPRAM HYDROBROMIDE 20 MG TAB PO SCH (09:00)
[2018-12-17] MEDS ORDERED: WARFARIN SOD 3 MG TAB PO SCH (17:00)
== END 2018-12-16 14:00 ==
LOC: ER 06:54 → INTOOBSV 06:57 → ERHOLD 06:57 → IMCU 08:43
PROVIDERS: ADMIT Internal Medicine; ATTEND Internal Medicine
DX: J44.1 Chronic obstructive pulmonary disease with (acute) exacerbation (principal); I11.0 Hypertensive heart disease with heart failure; I50.22 Chronic systolic (congestive) heart failure; R06.03 Acute respiratory distress; Z82.49 Family history of ischemic heart disease and other diseases of the circulatory system; Z95.810 Presence of automatic (implantable) cardiac defibrillator; D64.9 Anemia, unspecified; I48.91 Unspecified atrial fibrillation; Z86.73 Personal history of transient ischemic attack (TIA), and cerebral infarction without residual deficits; I25.10 Atherosclerotic heart disease of native coronary artery without angina pectoris; F41.9 Anxiety disorder, unspecified; F32.9 Major depressive disorder, single episode, unspecified; Z95.5 Presence of coronary angioplasty implant and graft; R56.9 Unspecified convulsions; E78.5 Hyperlipidemia, unspecified; Z72.0 Tobacco use; Z72.89 Other problems related to lifestyle; Z91.19 Patient's noncompliance with other medical treatment and regimen
CPT/HCPCS: 36415; 36600; 71045; 80053; 81001; 82550; 82553; 82805; 83605; 83880; 84484; 85025; 85610; 85730; 87040; 93005; 94640 ×2; 94660; 99284; G0378; J0456; J1940; J2930

== ENCOUNTER 2019-01-26 10:21 | Emergency (ER) | payer OTHER ==
[~2019-01-26] VITALS: Ht 182.9 cm; Wt 95.3 kg
--- OUTSIDE RECORDS SUMMARY | 2019-01-26 10:29 | XMS REPORT | Continuity of Care Document ---
Author Author [employer] Organization Photo [employer] Address Unknown Phone Unavailable Care Team Providers Care Commission Sales Associate Name Role Phone [employer] Information [employer] Unavailable Unavailable Problems Problem Status Onset Date Classification Date Reported Comments Source SOB / CHEST PAIN Active 2015 [facility] BRONCHITIS, CHEST PAIN Active 2015 [facility] WEAK Active 08/18/2015 [facility] CHEST PAIN, BRADYCARDIA, SUICIDAL IDEATI Active 08/18/2015 [facility] DEBILITATED Active 08/07/2015 [facility] DEBILITY Active 08/07/2015 [facility] LEFT CORONARY ANOMALY Active 07/20/2015 [facility] Anxiety Active Problem 12/05/2015 [facility] COPD Active Problem 12/05/2015 [facility] Depressed Active Problem 12/05/2015 [facility] Hypertension Active Problem 12/05/2015 [facility] Major depressive disorder Active Problem 12/05/2015 [facility] Pacemaker Active Problem 12/05/2015 [facility] Psychomotor retardation Active Problem 12/05/2015 [facility] Pulmonary embolism Resolved Problem 12/05/2015 [facility] Tobacco abuse Active Problem 12/05/2015 [facility] Unstable angina Active Problem 12/05/2015 [facility] OTHER SPECIFIED CONGENITAL DEFORMITIES Active [facility] OTHER MALAISE Active [facility] BRONCHITIS, NOT SPECIFIED ACUTE OR CH Active [facility] Medications Medication Details Route Status Patient Instructions Ordering Provider Order Date Source rivaroxaban 20 mg oral tablet 20 mg=1 tab, PO, QPM, 0 Refill(s) Active 12/02/2015 [facility] lamoTRIgine 25 mg oral tablet 25 mg=1 tab, PO, BID, 0 Refill(s) Active 12/02/2015 [facility] QUEtiapine 25 mg oral tablet 25 mg=1 tab, PO, Q4H, PRN Anxiety, 0 Refill(s) Active 12/02/2015 [facility] Seroquel 25 mg, 1 tab, Route: PO, Drug form: TAB, TID, Dosing Weight 105.455, kg, Start date: 12/02/15 13:00:00 CDT, Duration: 30 day, Stop date: 01/01/16 9:00:00 CDTNotes: (Same as: SEROquel) Inactive 12/02/2015 [facility] Seroquel 25 mg, 1 tab, Route: PO, Drug form: TAB, Q4H, Dosing Weight 105.455, kg, PRN Anxiety, Start date: 12/02/15 12:54:00 CDT, Duration: 30 day, Stop date: 01/01/16 12:53:00 CDTNotes: (Same as: SEROquel) Inactive 12/02/2015 [facility] lamoTRIgine 25 mg oral tablet 25 mg, 1 tab, Route: PO, Drug form: TAB, BID, Dosing Weight 105.455, kg, Priority: NOW, Start date: 12/02/15 11:31:00 CDT, Duration: 30 day, Stop date: 01/01/16 9:00:00 CDTNotes: (Same as:LaMICtal) Inactive 12/02/2015 [facility] Mirtazapine 30 mg, 2 tab, Route: PO, Drug form: TAB, Bedtime, Dosing Weight 105.455, kg, Start date: 11/29/15 21:00:00 CDT, Duration: 30 day, Stop date: 12/28/15 21:00:00 CDTNotes: (Same as:Remeron) No Longer Active 11/30/2015 [facility] Seroquel 50 mg, 2 tab, Route: PO, Drug form: TAB, Bedtime, Dosing Weight 105.455, kg, Start date: 11/29/15 21:00:00 CDT, Stop date: 12/28/15 21:00:00 CDTNotes: (Same as: SEROquel) No Longer Active 11/30/2015 [facility] Xarelto 20 mg, 1 tab, Route: PO, Drug form: TAB, QPM, Dosing Weight 105.455, kg, Start date: 11/29/15 20:00:00 CDT, Duration: 30 day, Stop date: 12/28/15 20:00:00 CDTNotes: (Same as: Xarelto) Administer with food No Longer Active 11/30/2015 [facility] Seroquel 25 mg, 1 tab, Route: PO, Drug form: TAB, Q6H, Dosing Weight 105.455, kg, PRN Agitation, Start date: 11/29/15 19:38:00 CDT, Duration: 30 day, Stop date: 12/29/15 19:37:00 CDTNotes: (Same as: SEROquel) No Longer Active 11/30/2015 [facility] Acetaminophen 300 MG / Codeine Phosphate 30 MG Oral Tablet [Tylenol with Codeine #3] 1 tab, Route: PO, Drug Form: TAB, Dosing Weight 105.455, kg, Q6H, PRN Pain Score 6-10, Start date: 11/29/15 18:44:00 CDT, Duration: 30 day, Stop date: 12/29/15 18:43:00 CDTNotes: Do not exceed 4gm/day of acetaminophen. (Same as: Tylenol with Codeine # 3) No Longer Active 11/29/2015 [facility] POLYETHYLENE GLYCOL 3350 17 gm, 1 pkt, Route: PO, Drug form: PWDR, BID, Dosing Weight 105.455, kg, Start date: 11/29/15 9:00:00 CDT, Duration: 30 day, Stop date: 12/28/15 17:00:00 CDTNotes: Dissolve in 8 oz of water or juice. (Same as: Miralax) No Longer Active 11/29/2015 [facility] Folic Acid 1 mg, 1 tab, Route: PO, Drug form: TAB, Daily, Dosing Weight 105.455, kg, Start date: 11/29/15 9:00:00 CDT, Duration: 30 day, Stop date: 12/28/15 9:00:00 CDTNotes: (Same as: Folvite) No Longer Active 11/29/2015 [facility] Flonase 0.05 mg/inh nasal spray 2 spray, Route: Each Affected Nostril, Drug Form: SPRY, Dosing Weight 105.455, kg, Daily, Start date: 11/29/15 9:00:00 CDT, Duration: 30 day, Stop date: 12/28/15 9:00:00 CDTNotes: (Same as: Flonase) No Longer Active 11/29/2015 [facility] carvedilol 3.125 mg, 1 tab, Route: PO, Drug form: TAB, Q12H, Dosing Weight 105.455, kg, Start date: 11/29/15 9:00:00 CDT, Duration: 30 day, Stop date: 12/28/15 21:00:00 CDTNotes: Give with food. (Same As: Coreg) No Longer Active 11/29/2015 [facility] Budesonide 1 inhalation, Route: INHALATION, Drug form: PWDR, BID, Dosing Weight 105.455, kg, Start date: 11/29/15 9:00:00 CDT, Duration: 30 day, Stop date: 12/28/15 17:00:00 CDTNotes: Same as Pulmicort Flexhaler Non-Formulary Drug No Longer Active 11/29/2015 [facility] Aspirin 81 mg, 1 tab, Route: PO, Drug form: ECTAB, Daily, Dosing Weight 105.455, kg, Start date: 11/29/15 9:00:00 CDT, Duration: 30 day, Stop date: 12/28/15 9:00:00 CDTNotes: Do not crush or chew. (Same As: Ecotrin) No Longer Active 11/29/2015 [facility] Thiamine 100 mg, 1 tab, Route: PO, Drug form: TAB, Daily, Dosing Weight 105.455, kg, Start date: 11/29/15 9:00:00 CDT, Duration: 30 day, Stop date: 12/28/15 9:00:00 CDTNotes: (Same As: Vitamin B1) No Longer Active 11/29/2015 [facility] Nitroglycerin 0.4 MG Sublingual Tablet 0.4 mg, 1 tab, Route: SL, Drug form: TAB, Q5Min, Dosing Weight 105.455, kg, PRN Chest Pain, Start date: 11/28/15 21:08:00 CDT, Duration: 30 day, Stop date: 12/28/15 21:07:00 CDT Inactive 11/29/2015 [facility] Calcium Carbonate 500 MG Chewable Tablet 500 mg, 1 tab, Route: CHEW, Drug form: CHEWTAB, TID, Dosing Weight 105.455, kg, PRN Indigestion, Start date: 11/28/15 21:07:00 CDT, Duration: 30 day, Stop date: 12/28/15 21:06:00 CDTNotes: (Same As: César) Calcium Carbonate 500 nt=456 mg elemental calcium Dose= mg calcium carbonate ( mg elemental calcium) No Longer Active 11/29/2015 [facility] 200 ACTUAT Albuterol 0.09 MG/ACTUAT Metered Dose Inhaler 2 puff, Route: INHALATION, Drug Form: AERO/A, Dosing Weight 105.455, kg, QID, PRN Wheezing, Start date: 11/28/15 21:07:00 CDT, Duration: 30 day, Stop date: 12/28/15 21:06:00 CDTNotes: Albuterol 90 microgram/inh 8gm HFA WASTE: Aerosol - Return to Pharmacy Same as: Violette Proventil No Longer Active 11/29/2015 [facility] Saline Flush 0.9% 10 ml, Route: IVP, Drug Form: INJ, Dosing Weight 113.636, kg, Q12H, Start date: 11/28/15 21:00:00 CDT, Duration: 30 day, Stop date: 12/28/15 9:00:00 CDTNotes: (Same as: BD Posiflush) No Longer Active 11/29/2015 [facility] Albuterol 0.83 MG/ML Inhalant Solution 2.5 mg, 3.01 mL, Route: INHALATION, Drug form: SOLN, RQ6H, Dosing Weight 113.636, kg, Start date: 11/28/15 20:00:00 CDT, Duration: 30 day, Stop date: 12/28/15 14:00:00 CDTNotes: SEE RT DOCUMENTATION (Same as: Proventil) No Longer Active 11/29/2015 [facility] Lovenox 105.455 mg, 0.7 mL, Route: SUB-Q, Drug form: INJ, [id number], Dosing Weight 105.455, kg, Start date: 11/28/15 17:00:00 CDT, Duration: 30 day, Stop date: 12/28/15 9:00:00 CDTNotes: Nurse to ensure document ation of patient education per anticoagulation policy. (Same as: Lovenox) No Longer Active 2015 [facility] Alprazolam 1 MG Oral Tablet [Xanax] 1 mg, 1 tab, Route: PO, Drug form: TAB, ONCE, Dosing Weight 105.455, kg, PRN Anxiety, Start date: 11/28/15 16:13:00 CDT, Stop date: 12/28/15 16:12:00 CDTNotes: With food or milk (Same as: Xanax) Inactive 2015 [facility] Saline Flush 0.9% 10 ml, Route: IVP, Drug Form: INJ, Dosing Weight 113.636, kg, PRN, PRN Line Flush, Start date: 11/28/15 15:24:00 CDT, Duration: 30 day, Stop date: 12/28/15 15:23:00 CDTNotes: (Same as: BD Posiflush) No Longer Active 2015 [facility] Nitroglycerin 0.4 mg, 1 tab, Route: SL, Drug form: TAB, Q5Min, Dosing Weight 113.636, kg, PRN Chest Pain, Start date: 11/28/15 15:24:00 CDT, Duration: 3 doses or times, Stop date: Limited # of timesNotes: (Same as :Nitroquick, Nitrostat) "Do Not Crush" Sublingual tablet No Longer Active 2015 [facility] Morphine 2 mg, 1 mL, Route: IVP, Drug form: INJ, Q15Min, Dosing Weight 113.636, kg, PRN Chest Pain, Start date: 11/28/15 15:24:00 CDT, Duration: 2 doses or times, Stop date: Limited # of timesNotes: (Same as: MORPhine Sulfate) No Longer Active 2015 [facility] Ondansetron 4 mg, 1 tab, Route: PO, Drug form: TAB, Q8H, Dosing Weight 113.636, kg, PRN Nausea & Vomiting, Start date: 11/28/15 15:24:00 CDT, Duration: 30 day, Stop date: 12/28/15 15:23:00 CDTNotes: (Same as: Glen) No Longer Active 2015 [facility] Aspirin 325 MG Oral Tablet 325 mg, 1 tab, Route: PO, Drug form: TAB, ONCE, Dosing Weight 113.636, kg, Start date: 11/28/15 15:24:00 CDT, Stop date: 11/28/15 15:24:00 CDTNotes: Take with food. Inactive 2015 [facility] Sodium Chloride 0.154 MEQ/ML Injectable Solution 1,000 mL, 1,000 ml/hr, Infuse Over: 1 hr, Route: IV, ONCE, Priority: STAT, Dosing Weight 113.636 kg, Start date: 11/28/15 13:34:00 CDT, Duration: 1 doses or times, Stop date: 11/28/15 13:34:00 CDT Inactive 2015 [facility] Morphine 4 mg, Route: IVP, Drug form: INJ, ONCE, Dosing Weight 113.636, kg, Priority: STAT, Start date: 11/28/15 13:34:00 CDT, Stop date: 11/28/15 13:34:00 CDT Inactive 2015 [facility] Nitroglycerin 0.02 MG/MG Topical Ointment 0.5 inch, Route: TOP, Dosing Weight 113.636, kg, ONCE, STAT, Start date: 11/28/15 13:32:00 CDT, Stop date: 11/28/15 13:32:00 CDT Inactive 2015 [facility] Ipratropium 0.5 mg, 2.5 mL, Route: NEB, Drug form: SOLN, ONCE, Dosing Weight 113.636, kg, Priority: STAT, Start date: 11/28/15 10:59:00 CDT, Stop date: 11/28/15 10:59:00 CDTNotes: SEE RT DOCUMENTATION (Same as:Stacey romero) Inactive 2015 [facility] Albuterol 0.83 MG/ML Inhalant Solution 10 mg, Route: NEB, Drug form: SOLN, Continuous, Dosing Weight 113.636, kg, Priority: STAT, Start date: 11/28/15 10:59:00 CDT, Duration: 30 day, Stop date: 12/28/15 10:58:00 CDT Inactive 2015 [facility] methylPREDNISolone SODium SUCCinate 125 mg, 2 mL, Route: IVP, Drug form: INJ, ONCE, Dosing Weight 113.636, kg, Priority: STAT, Start date: 11/28/15 10:59:00 CDT, Stop date: 11/28/15 10:59:00 CDTNotes: (Same as:Solu-MEDROL, A-Methapred) Inactive 2015 [facility] Magnesium Sulfate 2 gm, Route: IVPB, ONCE, Dosing Weight 113.636, kg, Priority: STAT, Start date: 11/28/15 10:59:00 CDT, Stop date: 11/28/15 10:59:00 CDT Inactive 2015 [facility] Saline Flush 0.9% 10 mL, Route: IVP, Drug Form: INJ, Dosing Weight 113.636, kg, PRN, PRN Line Flush, Start date: 11/28/15 10:59:00 CDT, Duration: 30 day, Stop date: 12/28/15 10:58:00 CDTNotes: (Same as: BD Posiflush) Inactive 2015 [facility] Ketoconazole 20 MG/ML Medicated Shampoo 1 appl, Route: TOP, QWed, Drug form: SHMP, Start date: 08/23/15 9:00:00 CDT, Duration: 30 day, Stop date: 09/20/15 9:00:00 CDT No Longer Active 08/23/2015 [facility] predniSONE 5 mg, 1 tab, Route: PO, Drug form: TAB, Daily, Start date: 08/20/15 9:00:00 CDT, Duration: 3 doses or times, Stop date: 08/22/15 9:00:00 CDTNotes: Take with food. No Longer Active 08/20/2015 [facility] Xarelto 15 mg, 1 tab, Route: PO, Drug form: TAB, Q12H, Dosing Weight 95, kg, Start date: 08/20/15 9:00:00 CDT, Duration: 30 day, Stop date: 09/18/15 21:00:00 CDTNotes: (Same as: Xarelto) Administer with food No Longer Active 08/20/2015 [facility] {42 (rivaroxaban 15 MG Oral Tablet [Xarelto]) / 9 (rivaroxaban 20 MG Oral Tablet [Xarelto]) } Pack [Xarelto Kit] 1 tab, PO, BID-Meals, Take 15 mg tablets twice daily with food for 21 days. Beginning day 22,take one 20 mg tablet daily with food for the remainder of therapy., X 30 day, # 1 pkt, 0 Refill(s) Active 08/20/2015 [facility] Pulmicort Respules 0.5 mg, 2 mL, Route: NEB, Drug form: SUSP, RBID, Start date: 08/19/15 22:00:00 CDT, Duration: 30 day, Stop date: 09/18/15 20:00:00 CDTNotes: (Same As: Pulmicort) No Longer Active 08/20/2015 [facility] Thiamine 100 mg, 1 tab, Route: PO, Drug form: TAB, Daily, Dosing Weight 95, kg, Start date: 08/19/15 9:00:00 CDT, Duration: 30 day, Stop date: 09/17/15 9:00:00 CDTNotes: (Same As: Vitamin B1) No Longer Active 08/19/2015 [facility] Ketoconazole 20 MG/ML Medicated Shampoo 1 appl, Route: TOP, QSat, Drug form: SHMP, Start date: 08/19/15 9:00:00 CDT, Duration: 30 day, Stop date: 09/16/15 9:00:00 CDT No Longer Active 08/19/2015 [facility] Folic Acid 1 mg, 1 tab, Route: PO, Drug form: TAB, Daily, Dosing Weight 95, kg, Start date: 08/19/15 9:00:00 CDT, Duration: 30 day, Stop date: 09/17/15 9:00:00 CDTNotes: (Same as: Folvite) No Longer Active 08/19/2015 [facility] Flonase 0.05 mg/inh nasal spray 2 spray, Route: Each Affected Nostril, Drug Form: SPRY, Dosing Weight 95, kg, Daily, Start date: 08/19/15 9:00:00 CDT, Duration: 30 day, Stop date: 09/17/15 9:00:00 CDTNotes: (Same as: Flonase) No Longer Active 08/19/2015 [facility] Aspirin 81 mg, 1 tab, Route: PO, Drug form: ECTAB, Daily, Dosing Weight 95, kg, Start date: 08/19/15 9:00:00 CDT, Duration: 30 day, Stop date: 09/17/15 9:00:00 CDTNotes: Do not crush or chew. (Same As: Ecotrin) No Longer Active 08/19/2015 [facility] Bacitracin 0.4 UNT/MG / Neomycin 0.0035 MG/MG / Polymyxin B 10 UNT/MG Ophthalmic Ointment 1 appl, Route: BOTH EYES, Q3H, Drug form: OINT, Start date: 08/18/15 23:00:00 CDT, Duration: 30 day, Stop date: 09/17/15 20:00:00 CDTNotes: (bacitracin/neomycin/ polymyxin B 3.5 gm oph OIN) (Same As: Neosporin, Triple Antibiotic) No Longer Active 08/19/2015 [facility] Mirtazapine 30 mg, 2 tab, Route: PO, Drug form: TAB, Bedtime, Dosing Weight 95, kg, Start date: 08/18/15 21:00:00 CDT, Duration: 30 day, Stop date: 09/16/15 21:00:00 CDTNotes: (Same as:Remeron) No Longer Active 08/19/2015 [facility] carvedilol 3.125 mg, 1 tab, Route: PO, Drug form: TAB, Q12H, Dosing Weight 95, kg, Start date: 08/18/15 21:00:00 CDT, Duration: 30 day, Stop date: 09/17/15 9:00:00 CDTNotes: Give with food. (Same As: Coreg) No Longer Active 08/19/2015 [facility] Budesonide 1 inhalation, Route: INHALATION, Drug form: PWDR, RBID, Dosing Weight 95, kg, Start date: 08/18/15 20:00:00 CDT, Duration: 30 day, Stop date: 09/17/15 8:00:00 CDTNotes: Same as Pulmicort Flexhaler Non- Formulary Drug Inactive 08/19/2015 [facility] Polymyxin B 50673 UNT/ML / Trimethoprim 1 MG/ML Ophthalmic Solution 1 drp, Route: BOTH EYES, Q3H, Start date: 08/18/15 17:00:00 CDT, Duration: 30 day, Stop date: 09/17/15 14:00:00 CDT Inactive 08/18/2015 [facility] Warfarin 7.5 mg, 1 tab, [...] (Same As: Coumadin) No Longer Active 08/18/2015 [facility] POLYETHYLENE GLYCOL 3350 17 gm, Route: PO, Drug form: PDR/REC, BID, Dosing Weight 95, kg, Start date: 08/18/15 17:00:00 CDT, Duration: 30 day, Stop date: 09/17/15 9:00:00 CDTNotes: (Same as: MiraLax) No Longer Active 08/18/2015 [facility] Polymyxin B 80508 UNT/ML / Trimethoprim 1 MG/ML Ophthalmic Solution 1 drp, BOTH EYES, Q3H, X 7 day, # 10 mL, 0 Refill(s) No Longer Active 08/18/2015 [facility] remove patch 1 patch, Route: TOP, Q24H, Drug form: ERFILM, Start date: 08/18/15 15:00:00 CDT, Duration: 30 day, Stop date: 09/16/15 15:00:00 CDTNotes: Remove patch 12 hours after application each day. No Longer Active 08/18/2015 [facility] Lidocaine Hydrochloride 0.05 MG/MG Transdermal [...] of new patch" No Longer Active 08/18/2015 [facility] predniSONE 10 mg, 1 tab, Route: PO, Drug form: TAB, Daily, Start date: 08/18/15 14:27:00 CDT, Duration: 2 doses or times, Stop date: 08/19/15 9:00:00 CDTNotes: (Same as: PredniSONE) Take with food. No Longer Active 08/18/2015 [facility] tramadol hydrochloride 50 MG Oral Tablet [Ultram] 50 mg, 1 tab, Route: PO, Drug form: TAB, Q6H, Dosing Weight 95, kg, PRN Pain Score 6- 10, Start date: 08/18/15 14:08:00 CDT, Duration: 30 day, Stop date: 09/17/15 14:07:00 CDTNotes: Not to exceed 400mg/day. (Same As: Ultram) No Longer Active 08/18/2015 [facility] Prednisone 1 MG Oral Tablet Dose: See Instructions, Route: SUB-Q, Drug form: TAB, Sliding Scale, PRN Blood Glucose Results, Start date: 08/18/15 14:08:00 CDT, Duration: 30 day, Stop date: 09/17/15 14:07:00 CDT Inactive 08/18/2015 [facility] Nitroglycerin 0.4 MG Sublingual Tablet 0.4 mg, 1 tab, Route: SL, Drug form: TAB, Q5Min, Dosing Weight 95, kg, PRN Chest Pain, Start date: 08/18/15 14:08:00 CDT, Duration: 30 day, Stop date: 09/17/15 14:07:00 CDTNotes: (Same as:Nitroquick, Nitrostat) "Do Not Crush" Sublingual tablet No Longer Active 08/18/2015 [facility] hydrocortisone topical 2.5% cream 1 appl, Route: TOP, BID, Drug form: CRM, PRN Itching, Start date: 08/18/15 14:08:00 CDT, Duration: 30 day, Stop date: 09/17/15 14:07:00 CDT No Longer Active 08/18/2015 [facility] Calcium Carbonate 500 MG Chewable Tablet 500 mg, 1 tab, Route: CHEW, Drug form: CHEWTAB, TID, Dosing Weight 95, kg, PRN Indigestion, Start date: 08/18/15 14:08:00 CDT, Duration: 30 day, Stop date: 09/17/15 14:07:00 CDTNotes: (Same As: César) Calcium Carbonate 500 oi=696 mg elemental calcium Dose= mg calcium carbonate ( mg elemental calcium) No Longer Active 08/18/2015 [facility] 200 ACTUAT Albuterol 0.09 MG/ACTUAT Metered Dose Inhaler 2 puff, Route: INHALATION, Drug Form: AERO/A, Dosing Weight 95, kg, RQID, PRN Wheezing, Start date: 08/18/15 14:08:00 CDT, Duration: 30 day, Stop date: 09/17/15 14:07:00 CDT No Longer Active 08/18/2015 [facility] Acetaminophen 1,000 mg, 2 tab, Route: PO, Drug form: TAB, Q6H, Dosing Weight 95, kg, PRN Pain Score 1-5, Start date: 08/18/15 14:07:00 CDT, Duration: 30 day, Stop date: 09/17/15 14:06:00 CDTNotes: Max acetaminophen 4000 mg/day (4 gm/day). (Same as: Tylenol Extra Strength) No Longer Active 08/18/2015 [facility] Sodium Chloride 0.9% IV 25 mL, Route: IV, Start date: 08/18/15 14:03:00 CDT, Duration: 30 day, Stop date: 09/17/15 14:02:00 CDT, PRN Line Flush No Longer Active 08/18/2015 [facility] Artificial Tears 1 drp, Route: Each Affected Eye, QID, Drug form: SOLN, PRN Dry Eyes, Start date: 08/18/15 13:56:00 CDT, Duration: 30 day, Stop date: 09/17/15 13:55:00 CDTNotes: (Same as: Aquasite) No Longer Active 08/18/2015 [facility] Diphenhydramine 25 mg, 0.5 mL, Route: IV, Drug form: INJ, Q6H, Dosing Weight 95, kg, PRN as needed for itching, Start date: 08/18/15 13:55:00 CDT, Duration: 30 day, Stop date: 09/17/15 13:54:00 CDTNotes: (Same as: Benadryl) No Longer Active 08/18/2015 [facility] Lorazepam 1 mg, 0.5 mL, Route: IV, Drug form: INJ, Q6H, Dosing Weight 95, kg, PRN as needed for anxiety, Start date: 08/18/15 13:55:00 CDT, Stop date: 09/17/15 13:54:00 CDTNotes: (Same as: Ativan) No Longer Active 08/18/2015 [facility] Ketoconazole 20 MG/ML Medicated Shampoo 1 appl, TOP, QSat, 0 Refill(s) Active 08/18/2015 [facility] Ketoconazole 20 MG/ML Medicated Shampoo 1 appl, TOP, QWed, 0 Refill(s) Active 08/18/2015 [facility] Saline Flush 0.9% 10 mL, Route: IVP, Drug Form: INJ, Dosing Weight 99.574, kg, PRN, PRN Line Flush, Start date: 08/18/15 8:30:00 CDT, Duration: 30 day, Stop date: 09/17/15 8:29:00 CDTNotes: (Same as: BD Posiflush) No Longer Active 08/18/2015 [facility] Ativan 1 mg, 1 tab, Route: PO, Drug form: TAB, ONCE, Dosing Weight 99.574, kg, Start date: 08/17/15 23:25:00 CDT, Stop date: 08/17/15 23:25:00 CDTNotes: (Same as: Ativan) Inactive 08/18/2015 [facility] tramadol hydrochloride 50 MG Oral Tablet [Ultram] 50 mg=1 tab, PO, Q6H, PRN Pain Score 6-10, # 1 tab, 0 Refill(s), other Active 08/18/2015 [facility] predniSONE 10 mg oral tablet See Instructions, Take 1 tab (10mg) PO daily for 2 days and then take 1/2 tab (5mg) PO daily for 3 days and stop. Take w/ food., # 1 tab, 0 Refill(s), other Active 08/18/2015 [facility] 200 ACTUAT Albuterol 0.09 MG/ACTUAT Metered Dose Inhaler 2 puff, INHALATION, QID, PRN as needed for wheezing, # 3 ea, 0 Refill(s), other Active 08/18/2015 [facility] thiamine 100 mg oral tablet 100 mg=1 tab, PO, Daily, 0 Refill(s) Active 08/18/2015 [facility] tramadol hydrochloride 50 MG Oral Tablet [Ultram] 50 mg=1 tab, PO, Q4H, PRN Pain Score 4-6, 0 Refill(s) Inactive 08/18/2015 [facility] POLYETHYLENE GLYCOL 3350 17 gm, PO, BID, 0 Refill(s) Active 08/18/2015 [facility] methocarbamol 500 mg oral tablet 500 mg=1 tab, PO, QID, PRN Muscle Spasms, per RACHEL Dennis at [facility], did not approve robaxin and not taking, 0 Refill(s) No Longer Active 08/18/2015 [facility] Lidocaine Hydrochloride 0.05 MG/MG Transdermal Patch [Lidoderm] 1 patch, TOP, Q24H, Remove after 12 hours, 0 Refill(s) Active 08/18/2015 [facility] hydrocortisone topical 2.5% cream 1 appl, TOP, BID, PRN Itching, 0 Refill(s) Active 08/18/2015 [facility] Folic Acid 1 MG Oral Tablet 1 mg=1 tab, PO, Daily, 0 Refill(s) Active 08/18/2015 [facility] Calcium Carbonate 500 MG Chewable Tablet 500 mg=1 tab, CHEW, TID, PRN Indigestion, 0 Refill(s) Active 08/18/2015 [facility] Flonase 0.05 mg/inh nasal spray 100 microgram=2 spray, Each Affected Nostril, Daily, 0 Refill(s) Active 08/18/2015 [facility] busPIRone 5 mg oral tablet 5 mg=1 tab, PO, TID, Investigating the current use. New rx from 08/17/15 but not seen on papaers provided by facility. RN Sonny will fax the list, 0 Refill(s) No Longer Active 08/18/2015 [facility] mirtazapine 30 mg oral tablet 30 mg=1 tab, PO, Bedtime, 0 Refill(s) Active 08/18/2015 [facility] warfarin 2.5 mg oral tablet 7.5 mg, PO, QPM, # 1 tab, 0 Refill(s), other No Longer Active 08/18/2015 [facility] acetaminophen 500 mg oral tablet 1,000 mg=2 tab, PO, Q6H, PRN Pain Score 1-5, 0 Refill(s) Active 08/18/2015 [facility] Warfarin 7.5 mg, 1 tab, Route: [...] Waste Black (Same As: Coumadin) Inactive 08/17/2015 [facility] Buspar 5 mg, 1 tab, Route: PO, Drug form: TAB, TID, Dosing Weight 99.574, kg, Start date: 08/17/15 9:00:00 CDT, Duration: 30 day, Stop date: 09/15/15 17:00:00 CDTNotes: (Same As: BuSpar) No Longer Active 08/17/2015 [facility] Warfarin 7.5 mg, 1 tab, Route: [...] Waste Black (Same As: Coumadin) Inactive 08/16/2015 [facility] Methocarbamol 500 mg, 1 tab, Route: PO, Drug form: TAB, QID, Dosing Weight 99.574, kg, PRN Muscle Spasms, Start date: 08/15/15 22:54:00 CDT, Duration: 30 day, Stop date: 09/14/15 22:53:00 CDTNotes: (Same as:Robaxin) No Longer Active 08/16/2015 [facility] Ativan 1 mg, 0.5 mL, Route: IVP, Drug form: INJ, ONCE, Dosing Weight 99.574, kg, Start date: 08/15/15 19:39:00 CDT, Stop date: 08/15/15 19:39:00 CDTNotes: (Same as: Ativan) Inactive 08/16/2015 [facility] Warfarin 6 mg, 1 tab, Route: [...] Waste Black (Same As: Coumadin) Inactive 08/15/2015 [facility] Clonazepam 0.25 mg, 0.5 tab, Route: PO, Drug form: TAB, ONCE, Dosing Weight 99.574, kg, Priority: NOW, Start date: 08/15/15 10:09:00 CDT, Stop date: 08/15/15 10:09:00 CDTNotes: (Same As: KlonoPIN) Inactive 08/15/2015 [facility] Warfarin 5 mg, 1 tab, Route: [...] Waste Black (Same As: Coumadin) Inactive 08/14/2015 [facility] remove patch 1 patch, Route: TOP, Bedtime, Drug form: ERFILM, Start date: 08/14/15 1:00:00 CDT, Duration: 30 day, Stop date: 09/12/15 1:00:00 CDTNotes: Remove patch 12 hours after application each day. No Longer Active 08/14/2015 [facility] Warfarin 5 mg, 1 tab, Route: [...] Waste Black (Same As: Coumadin) Inactive 08/13/2015 [facility] Miralax 17 gm, 1 pkt, Route: PO, Drug form: PWDR, BID, Dosing Weight 99.574, kg, Priority: NOW, Start date: 08/13/15 14:34:00 CDT, Duration: 30 day, Stop date: 09/12/15 9:00:00 CDTNotes: Dissolve in 8 oz of water or juice. (Same as: Miralax) No Longer Active 08/13/2015 [facility] Dulcolax Laxative 10 mg, 1 supp, Route: DE, Drug form: SUPP, ONCE, Dosing Weight 99.574, kg, Priority: NOW, Start date: 08/13/15 14:29:00 CDT, Stop date: 08/13/15 14:29:00 CDTNotes: (Same As: Dulcolax, Bisco- Lax) Inactive 08/13/2015 [facility] Lidocaine Hydrochloride 0.05 MG/MG Transdermal Patch [...] of new patch" No Longer Active 08/13/2015 [facility] Warfarin 6 mg, 1 tab, Route: [...] Waste Black (Same As: Coumadin) Inactive 08/12/2015 [facility] warfarin 3 mg oral tablet 6 mg=2 tab, PO, Daily, # 30 tab, 0 Refill(s) No Longer Active 08/12/2015 [facility] 200 ACTUAT Albuterol 0.09 MG/ACTUAT Metered Dose Inhaler 2 puff, INHALATION, QID, # 3 ea, 0 Refill(s) No Longer Active 08/12/2015 [facility] predniSONE 10 mg oral tablet 20 mg=2 tab, PO, Daily, for 3 days then 1 tab daily for 3 days then 0.5 tab for 4 days., # 11 tab, 0 Refill(s) Inactive 08/12/2015 [facility] carvedilol 3.125 mg oral tablet 3.125 mg=1 tab, PO, Q12H, # 60 tab, 0 Refill(s) Active 08/12/2015 [facility] tramadol hydrochloride 50 MG Oral Tablet 50 mg=1 tab, PO, Q6H, PRN Pain, PRN for pain q 6 hrs, # 30 tab, 0 Refill(s) Inactive 08/12/2015 [facility] Nitroglycerin 0.4 MG Sublingual Tablet 0.4 mg=1 tab, SL, Q5Min, PRN Chest Pain, Give up to 3 doses. Call 911 if pain persists., # 100 tab, 0 Refill(s) Active 08/12/2015 [facility] mirtazapine 15 mg oral tablet 15 mg=1 tab, PO, Bedtime, # 30 tab, 0 Refill(s) No Longer Active 08/12/2015 [facility] budesonide 180 mcg/inh inhalation powder 1 puff, INHALATION, BID, # 2 ea, 0 Refill(s) Active 08/12/2015 [facility] Warfarin 7.5 mg, 1 tab, Route: [...] Waste Black (Same As: Coumadin) Inactive 08/11/2015 [facility] Warfarin 6 mg, 1 tab, Route: [...] Waste Black (Same As: Coumadin) Inactive 08/10/2015 [facility] Warfarin 7.5 mg, 1 tab, Route: PO, Drug form: TAB, ONCE, Dosing Weight 99.574, kg, Priority: NOW, Start date: 08/09/15 18:12:00, Stop date: 08/09/15 18:12:00Notes: Nurse to ensure documentation of patient education per anticoagulation policy. Avoid large intake of vitamin-K containing foods diet. WASTE: F/P - P Waste Black; E - P Waste Black (Same As: Coumadin) Inactive 08/09/2015 [facility] Oxycodone Hydrochloride 5 MG Oral Tablet 5 mg, 1 tab, Route: PO, Drug form: TAB, Q6H, Dosing Weight 99.574, kg, PRN Pain Score 7-10, Start date: 08/08/15 18:10:00 CDT, Duration: 30 day, Stop date: 09/07/15 18:09:00 CDTNotes: (Same as: Roxicodone) No Longer Active 08/08/2015 [facility] Tums 500 mg, 1 tab, Route: CHEW, Drug form: CHEWTAB, TID, Dosing Weight 99.574, kg, PRN Indigestion, Start date: 08/08/15 18:07:00, Duration: 30 day, Stop date: 09/07/15 18:06:00Notes: (Same As: Tums) Calcium Carbonate 500 re=570 mg elemental calcium Dose= mg calcium carbonate ( mg elemental calcium) No Longer Active 08/08/2015 [facility] Coumadin 7.5 mg, 1 tab, Route: [...] Waste Black (Same As: Coumadin) Inactive 08/08/2015 [facility] Tylenol 1,000 mg, 2 tab, Route: PO, Drug form: TAB, Q6H, Dosing Weight 99.574, kg, Start date: 08/07/15 18:00:00, Duration: 30 day, Stop date: 09/06/15 12:00:00Notes: Max acetaminophen 4000 mg/day (4 gm/day). (Same as: Tylenol Extra Strength) No Longer Active 08/07/2015 [facility] Coumadin 7.5 mg, 1 tab, Route: [...] Waste Black (Same As: Coumadin) Inactive 08/07/2015 [facility] tramadol hydrochloride 50 MG Oral Tablet [Ultram] 50 mg, 1 tab, Route: PO, Drug form: TAB, Q4H, Dosing Weight 99.574, kg, PRN Pain Score 4-6, Start date: 08/07/15 12:36:00, Duration: 30 day, Stop date: 09/06/15 12:35:00Notes: Not to exceed 400mg/day. (Same As: Ultram) No Longer Active 08/07/2015 [facility] naproxen sodium 550 mg, Route: PO, Drug form: TAB, BID, Dosing Weight 99.574, kg, PRN Pain Score 1-3, Start date: 08/07/15 12:27:00, Duration: 30 day, Stop date: 09/06/15 12:26:00 Inactive 08/07/2015 [facility] Acetaminophen 325 MG / Hydrocodone Bitartrate 5 MG Oral Tablet [[place] 5/325] 1 tab, Route: PO, Drug Form: TAB, Dosing Weight 99.574, kg, Q4H, PRN Pain Score 1-3, Start date: 08/07/15 10:36:00, Duration: 30 day, Stop date: 09/06/15 10:35:00Notes: (Same as: [place] 325/5) Do not exceed 4gm/day of acetaminophen. Inactive 08/07/2015 [facility] Coumadin 5 mg, 1 tab, Route: [...] Waste Black (Same As: Coumadin) Inactive 08/06/2015 [facility] Ativan 0.5 mg, 1 tab, Route: PO, Drug form: TAB, TID, Dosing Weight 99.574, kg, PRN Anxiety, Start date: 08/06/15 9:39:00, Duration: 30 day, Stop date: 09/05/15 9:38:00Notes: (Same as: Ativan) No Longer Active 08/06/2015 [facility] Ativan 0.5 mg, 0.25 mL, Route: IV, Drug form: INJ, ONCE, Dosing Weight 99.574, kg, Start date: 08/06/15 9:06:00, Stop date: 08/06/15 9:06:00Notes: (Same as: Ativan) Inactive 08/06/2015 [facility] Ativan 0.5 mg, 0.25 mL, Route: IV, Drug form: INJ, ONCE, Dosing Weight 99.574, kg, Start date: 08/06/15 8:49:00, Stop date: 08/06/15 8:49:00Notes: (Same as: Ativan) Inactive 08/06/2015 [facility] Coumadin 10 mg, 1 tab, Route: [...] E - P Waste Black Inactive 08/05/2015 [facility] Coreg 3.125 mg, 1 tab, Route: PO, Drug form: TAB, Q12H, Dosing Weight 99.574, kg, Priority: NOW, Start date: 08/04/15 20:48:00, Duration: 30 day, Stop date: 09/03/15 9:00:00Notes: Give with food. (Same As: Coreg) No Longer Active 08/05/2015 [facility] Warfarin 10 mg, 1 tab, Route: [...] E - P Waste Black Inactive 08/04/2015 [facility] Prednisone 10 mg, 1 tab, Route: PO, Drug form: TAB, Daily, Dosing Weight 99.574, kg, Start date: 08/04/15 9:00:00 CDT, Stop date: 09/02/15 9:00:00 CDTNotes: (Same as: PredniSONE) Take with food. No Longer Active 08/04/2015 [facility] Coumadin 7.5 mg, 1 tab, Route: [...] Waste Black (Same As: Coumadin) Inactive 08/03/2015 [facility] K-Dur 20 40 mEq, 2 tab, Route: PO, Drug form: ERTAB, ONCE, Start date: 08/03/15 14:00:00, Stop date: 08/03/15 14:00:00Notes: (Same as: K- Dur 20) "Do Not Crush" With food and full glass of water Inactive 08/03/2015 [facility] Flonase 0.05 mg/inh nasal spray 2 spray, Route: Each Affected Nostril, Drug Form: SPRY, Dosing Weight 99.574, kg, Daily, NOW, Start date: 08/02/15 18:04:00, Stop date: 09/01/15 9:00:00Notes: (Same as: Flonase) No Longer Active 08/02/2015 [facility] Budesonide 0.25 MG/ML Inhalant Solution [Pulmicort] 0.5 mg, 2 mL, Route: NEB, Drug form: SUSP, BID, Dosing Weight 99.574, kg, Priority: NOW, Start date: 08/02/15 17:58:00, Duration: 30 day, Stop date: 09/01/15 17:00:00Notes: (Same As: Pulmicort) No Longer Active 08/02/2015 [facility] Coumadin 7.5 mg, 1 tab, Route: [...] Waste Black (Same As: Coumadin) Inactive 08/02/2015 [facility] Albuterol 0.83 MG/ML Inhalant Solution 2.49 mg, 3 mL, Route: PO, Drug form: SOLN, RQ4H, Dosing Weight 99.574, kg, PRN Wheezing, Start date: 08/02/15 10:21:00, Duration: 30 day, Stop date: 09/01/15 10:20:00Notes: SEE RT DOCUMENTATION (Same as: Proventil) No Longer Active 08/02/2015 [facility] Coumadin 7.5 mg, 1 tab, Route: PO, Drug form: TAB, Q5PM, Start date: 08/01/15 17:00:00, Duration: 1 day, Stop date: 08/01/15 17:00:00Notes: Nurse to ensure documentation of patient education per anticoagulation policy. Avoid large intake of vitamin-K containing foods diet. WASTE: F/P - P Waste Black; E - P Waste Black (Same As: Coumadin) Inactive 08/01/2015 [facility] Warfarin 5 mg, Route: PO, Q5PM, Dosing Weight 99.574, kg, Start date: 08/01/15 17:00:00, Duration: 1 doses or times, Stop date: 08/01/15 17:00:00 Inactive 08/01/2015 [facility] Bumex 1 mg, 1 tab, Route: PO, Drug form: TAB, Daily, Dosing Weight 99.574, kg, Start date: 08/01/15 9:00:00, Duration: 30 day, Stop date: 08/30/15 9:00:00Notes: (Same As: Bumex) No Longer Active 08/01/2015 [facility] trazodone 50 mg oral tablet 25 mg, 0.5 tab, Route: PO, Drug form: TAB, ONCE, Dosing Weight 99.574, kg, Start date: 07/31/15 23:00:00, Stop date: 07/31/15 23:00:00Notes: (Same As: Desyrel) Inactive 08/01/2015 [facility] Trazodone 25 mg, 0.5 tab, Route: PO, Drug form: TAB, ONCE, Dosing Weight 99.574, kg, PRN Sleep, Start date: 07/31/15 21:49:00, Stop date: 07/31/15 21:49:00Notes: (Same As: Desyrel) Inactive 08/01/2015 [facility] Warfarin 5 mg, 1 tab, Route: [...] Waste Black (Same As: Coumadin) Inactive 07/31/2015 [facility] Lactulose 20 gm, 30 ml, Route: PO, Drug Form: SYRP, Dosing Weight 99.574, kg, ONCE, PRN Constipation, Start date: 07/31/15 9:55:00, Stop date: 08/30/15 9:54:00Notes: (Same as:Chronulac) Inactive 07/31/2015 [facility] azithromycin 250 mg oral tablet 250 mg, 1 tab, Route: PO, Drug form: TAB, Daily, Dosing Weight 99.574, kg, Start date: 07/31/15 9:00:00, Duration: 4 day, Stop date: 08/03/15 9:00:00Notes: Take 1 hour before or 2 hours after meals. (Same As: Zithromax) No Longer Active 07/31/2015 [facility] Lidocaine Hydrochloride 10 MG/ML Injectable Solution 100 mg, 10 mL, Route: IV, Drug Form: INJ, Dosing Weight 99.574, kg, ONCE, Start date: 07/30/15 20:34:00, Stop date: 07/30/15 20:34:00Notes: (Same as: Xylocaine) Inactive 07/31/2015 [facility] Lidocaine Hydrochloride 20 MG/ML Injectable Solution 200 mg, 10 mL, Route: SUB-Q, Drug Form: INJ, Dosing Weight 99.574, kg, ONCE, Start date: 07/30/15 18:53:00, Stop date: 07/30/15 18:53:00Notes: Syringe (Same as: Xylocaine) Inactive 07/30/2015 [facility] azithromycin 500 mg oral tablet 500 mg, 2 tab, Route: PO, Drug form: TAB, Daily, Dosing Weight 99.574, kg, Priority: STAT, Start date: 07/30/15 18:45:00, Duration: 1 doses or times, Stop date: 07/30/15 18:45:00Notes: Take 1 hour before or 2 hours after meals. (Same As: Zithromax) Inactive 07/30/2015 [facility] Albuterol 0.833 MG/ML / Ipratropium [place] 0.167 MG/ML Inhalant Solution 3 ml, Route: NEB, Drug Form: SOLN, Dosing Weight 99.574, kg, RQ4H, STAT, Start date: 07/30/15 18:45:00, Duration: 30 day, Stop date: 08/29/15 15:00:00Notes: (Same as: Duoneb) No Longer Active 07/30/2015 [facility] Prednisone 60 mg, 3 tab, Route: PO, Drug form: TAB, Daily, Dosing Weight 99.574, kg, Priority: STAT, Start date: 07/30/15 18:45:00, Duration: 30 day, Stop date: 08/29/15 9:00:00Notes: Take with food. No Longer Active 07/30/2015 [facility] Magnesium Sulfate 2 gm, 50 mL, Route: IVPB, Drug form: INJ, ONCE, Dosing Weight 99.574, kg, Start date: 07/30/15 15:19:00, Duration: 2 hr, Stop date: 07/30/15 15:19:00Notes: WASTE: F/P - Sink; E - Municipal Trash Bin Inactive 07/30/2015 [facility] Tylenol 650 mg, 2 tab, Route: PO, Drug form: TAB, ONCE, Dosing Weight 99.574, kg, Start date: 07/30/15 1:27:00, Stop date: 07/30/15 1:27:00Notes: Do not exceed 4 gm/day. (Same as: Tylenol) Inactive 07/30/2015 [facility] Magnesium Sulfate 2 gm, 50 mL, Route: IVPB, Drug form: INJ, ONCE, Dosing Weight 99.574, kg, Start date: 07/29/15 10:51:00, Duration: 2 hr, Stop date: 07/29/15 10:51:00Notes: WASTE: F/P - Sink; E - Municipal Trash Bin Inactive 07/29/2015 [facility] Bumex 1 mg, 4 mL, Route: IVP, Drug form: INJ, Daily, Dosing Weight 99.574, kg, Priority: NOW, Start date: 07/29/15 10:17:00, Duration: 30 day, Stop date: 08/28/15 9:00:00Notes: (Same As: Bumex) No Longer Active 07/29/2015 [facility] ketoconazole topical 2% shampoo 1 appl, Route: SHAMPOO, QSat, Drug form: SHMP, Start date: 07/29/15 9:00:00, Duration: 30 day, Stop date: 08/26/15 9:00:00Notes: Non-Formulary Drug (Same as:Nizoral Topical) No Longer Active 07/29/2015 [facility] normal saline 0.9% IV 1,000 mL 1,000 mL, Rate: 50 ml/hr, Infuse over: 20 hr, Route: IVPB, Dosing Weight 99.574 kg, Total Volume: 1,000, Start date: 07/27/15 22:04:00, Duration: 30 day, Stop date: 08/26/15 22:03:00 No Longer Active 07/28/2015 [facility] hydrocortisone topical 2.5% cream 1 appl, Route: TOP, BID, Drug form: CRM, PRN Itching, Start date: 07/26/15 14:53:00, Duration: 30 day, Stop date: 08/25/15 14:52:00 No Longer Active 07/26/2015 [facility] Ketoconazole 20 MG/ML Medicated Shampoo 1 appl, Route: TOP, QWed, Drug form: SHMP, Start date: 07/26/15 14:50:00, Duration: 30 day, Stop date: 08/23/15 15:00:00Notes: Non-Formulary Drug (Same as:Nizoral Topical) No Longer Active 07/26/2015 [facility] tiotropium 0.018 MG/ACTUAT Inhalant Powder [Spiriva] 18 microgram, 1 inhalation, Route: INHALATION, Drug form: CAP, Daily, Dosing Weight 99.574, kg, Start date: 07/26/15 9:00:00, Duration: 30 day, Stop date: 08/24/15 9:00:00Notes: (Same As: Spiriva) No Longer Active 07/26/2015 [facility] Clonidine Hydrochloride 0.1 MG Oral Tablet 0.1 mg, 1 tab, Route: PO, Drug form: TAB, TID, Dosing Weight 99.574, kg, Start date: 07/22/15 17:00:00, Duration: 30 day, Stop date: 08/21/15 13:00:00Notes: (Same As: Catapres) No Longer Active 07/22/2015 [facility] Remeron 30 mg, 2 tab, Route: PO, Drug form: TAB, Bedtime, Dosing Weight 99.574, kg, Start date: 07/21/15 21:00:00, Duration: 30 day, Stop date: 08/19/15 21:00:00Notes: (Same as:Remeron) Inactive 07/22/2015 [facility] Mirtazapine 30 mg, 1 tab, Route: PO, Drug form: TAB, Bedtime, Dosing Weight 99.574, kg, Start date: 07/21/15 21:00:00, Duration: 30 day, Stop date: 09/18/15 21:00:00Notes: (Same as:Remeron) No Longer Active 07/22/2015 [facility] Hydrocortisone-Aloe 0.5% topical cream 1 appl, Route: TOP, BID, Drug form: CRM, Start date: 07/21/15 9:00:00, Duration: 30 day, Stop date: 08/19/15 17:00:00 No Longer Active 07/21/2015 [facility] Aspirin 81 mg, 1 tab, Route: PO, Drug form: ECTAB, Daily, Dosing Weight 99.574, kg, Start date: 07/21/15 9:00:00, Duration: 30 day, Stop date: 09/18/15 9:00:00Notes: Do not crush or chew. (Same As: Ecotrin) No Longer Active 07/21/2015 [facility] Clonidine Hydrochloride 0.1 MG Oral Tablet 0.1 mg, 1 tab, Route: PO, Drug form: TAB, QID, Dosing Weight 99.574, kg, Start date: 07/21/15 9:00:00, Duration: 30 day, Stop date: 08/19/15 21:00:00Notes: (Same As: Catapres) No Longer Active 07/21/2015 [facility] Folic Acid 1 mg, 1 tab, Route: PO, Drug form: TAB, Daily, Dosing Weight 99.574, kg, Start date: 07/21/15 9:00:00, Duration: 30 day, Stop date: 09/18/15 9:00:00Notes: (Same as: Folvite) No Longer Active 07/21/2015 [facility] Thiamine 100 mg, 1 tab, Route: PO, Drug form: TAB, Daily, Dosing Weight 99.574, kg, Start date: 07/21/15 9:00:00, Duration: 30 day, Stop date: 09/18/15 9:00:00Notes: (Same As: Vitamin B1) No Longer Active 07/21/2015 [facility] heparin additive 25,000 unit [18 unit/kg/hr] + Premix Diluent Dextrose 5% 500 mL 500 mL, Rate: 31.1 ml/hr, Infuse over: 16.1 hr, Route: IV, Dosing Weight 86.39 kg, Total Volume: 500 mL, Start date: 07/21/15 3:49:00, Duration: 30 day, Stop date: 08/20/15 3:48:00 No Longer Active 07/21/2015 [facility] Heparin 40 unit/kg Bolus (Heparin Dosing Weight) Route: IVP, PRN, 3,500 unit, 3.5 mL, Drug form: INJ, PRN, Heparin Protocol, Start date: 07/21/15 3:49:00 Stop date: 08/20/15 3:48:00, 30 day No Longer Active 07/21/2015 [facility] Heparin 80 unit/kg Bolus (Heparin Dosing Weight) Route: IVP, PRN, 6,900 unit, 6.9 mL, Drug form: INJ, PRN, Heparin Protocol, Start date: 07/21/15 3:49:00 Stop date: 08/20/15 3:48:00, 30 day No Longer Active 07/21/2015 [facility] tramadol hydrochloride 50 MG Oral Tablet 50 mg, 1 tab, Route: PO, Drug form: TAB, Q6H, Dosing Weight 99.574, kg, PRN Pain Score 6-10, Start date: 07/21/15 3:33:00, Duration: 30 day, Stop date: 08/20/15 3:32:00Notes: Not to exceed 400mg/day. (Same As: Ultram) No Longer Active 07/21/2015 [facility] Artificial Tears 2 drp, Route: BOTH EYES, PRN, Drug form: SOLN, PRN as needed for dry eyes, Start date: 07/21/15 3:33:00 CDT, Duration: 30 day, Stop date: 09/19/15 3:32:00 CDT No Longer Active 07/21/2015 [facility] Nitroglycerin 0.4 MG Sublingual Tablet 0.4 mg, 1 tab, Route: SL, Drug form: TAB, Q5Min, Dosing Weight 99.574, kg, PRN Chest Pain, Start date: 07/21/15 3:33:00 CDT, Duration: 30 day, Stop date: 09/19/15 3:32:00 CDTNotes: (Same as:Nitroquick, Nitrostat) "Do Not Crush" Sublingual tablet No Longer Active 07/21/2015 [facility] Clonazepam 0.5 mg, 1 tab, Route: PO, Drug form: TAB, Q6H, Dosing Weight 99.574, kg, PRN Anxiety, Start date: 07/21/15 3:33:00, Duration: 30 day, Stop date: 08/20/15 3:32:00Notes: (Same As: KlonoPIN) No Longer Active 07/21/2015 [facility] Tylenol PO, Q6H, PRN Pain Score 1-5, 0 Refill(s) No Longer Active 07/21/2015 [facility] Hydrocortisone-Aloe 0.5% topical cream 1 appl, TOP, BID, # 30 gm, 0 Refill(s) No Longer Active 07/21/2015 [facility] Aspirin 81 mg, PO, Daily, 0 Refill(s) Active 07/21/2015 [facility] 24 HR Nicotine 0.875 MG/HR Transdermal Patch =1 patch, Transdermal, Daily, 0 Refill(s) No Longer Active 07/21/2015 [facility] Clonidine Hydrochloride 0.1 MG Oral Tablet 0.1 mg=1 tab, PO, QID, 0 Refill(s) No Longer Active 07/21/2015 [facility] clonazePAM 0.5 mg oral tablet 0.5 mg=1 tab, PO, PRN, Prn anxiety q 6 hrs, 0 Refill(s) No Longer Active 07/21/2015 [facility] mirtazapine 15 mg oral tablet 15 mg=1 tab, PO, Bedtime, # 30 tab, 0 Refill(s) No Longer Active 07/21/2015 [facility] Alprazolam 0.25 MG Oral Tablet 0.25 mg=1 tab, PO, BID, PRN anxiety, stress, # 20 tab, 0 Refill(s) No Longer Active 07/21/2015 [facility] tramadol hydrochloride 50 MG Oral Tablet 50 mg=1 tab, PO, Q6H, PRN Pain, PRN for pain q 6 hrs, 0 Refill(s) No Longer Active 07/21/2015 [facility] Nitroglycerin 0.4 MG Sublingual Tablet 0.4 mg=1 tab, SL, Q5Min, PRN Chest Pain, Give up to 3 doses. Call 911 if pain persists., # 25 tab, 3 Refill(s) No Longer Active 07/21/2015 [facility] Artificial Tears BOTH EYES, PRN, 1 drop each eye q 4 hours, 0 Refill(s) No Longer Active 07/21/2015 [facility] Allergies, Adverse Reactions, Alerts No Known Medication Allergies Immunizations No Data Provided for This Section Results Order Name Results Value Reference Range Date Interpretation Comments Source HEMATOLOGY PT 14.0 12.0 - 14.7 11/29/2015 [facility] HEMATOLOGY INR 1.05 0.85 - 1.17 11/29/2015 [facility] LIPIDS CHD Risk 3.28 4.00 - 7.30 11/29/2015 [facility] LIPIDS Chol 210 <=199 mg/dL 11/29/2015 [facility] LIPIDS Trig 69 <=149 mg/dL 11/29/2015 [facility] LIPIDS HDL 64 >=61 mg/dL 11/29/2015 [facility] LIPIDS VLDL 14 11/29/2015 [facility] LIPIDS LDL (Calculated) 132 <=99 mg/dL 11/29/2015 [facility] CARDIAC ENZYMES Troponin-I <0.02 0.00 - 0.40 11/29/2015 [facility] CARDIAC ENZYMES Total CK 48 12 - 191 11/29/2015 [facility] CARDIAC ENZYMES Troponin-I <0.02 0.00 - 0.40 2015 [facility] CARDIAC ENZYMES Total CK 50 12 - 191 2015 [facility] CARDIAC ENZYMES CK MB Index 4.7 0.0 - 2.5 2015 [facility] CARDIAC ENZYMES BNP 92 <=100 pg/mL 2015 [facility] CARDIAC ENZYMES Troponin-I <0.02 0.00 - 0.40 2015 [facility] CARDIAC ENZYMES CK MB 2.7 0.5 - 3.6 2015 [facility] CARDIAC ENZYMES Total CK 57 12 - 191 2015 [facility] CHEM PANEL eGFR 96 2015 Result Comment: [...] Alk Phos 64 39 - 136 2015 [facility] CHEM PANEL Bili Total 0.3 0.2 - 1.3 2015 [facility] CHEM PANEL CO2 29 24 - 32 2015 [facility] CHEM PANEL Chloride Lvl 106 95 - 109 2015 [facility] CHEM PANEL Potassium Lvl 4.0 3.5 - 5.1 2015 [facility] CHEM PANEL A/G Ratio 1.1 0.7 - 1.6 2015 [facility] CHEM PANEL Globulin 3.5 2.0 - 4.0 2015 [facility] CHEM PANEL B/C Ratio 13 6 - 25 2015 [facility] CHEM PANEL Sodium Lvl 141 135 - 145 2015 [facility] CHEM PANEL BUN 11 7 - 22 2015 [facility] CHEM PANEL Glucose Lvl 86 70 - 99 2015 [facility] CHEM PANEL Creatinine Lvl 0.86 0.50 - 1.40 2015 [facility] HEMATOLOGY Segs-Bands # 7.8 1.5 - 8.1 2015 [facility] HEMATOLOGY Basophils 0.9 0.0 - 1.0 2015 [facility] HEMATOLOGY Basophils # 0.1 0.0 - 0.2 2015 [facility] HEMATOLOGY Segs 67.3 45.0 - 75.0 2015 [facility] HEMATOLOGY Monocytes # 0.7 0.0 - 0.8 2015 [facility] HEMATOLOGY Lymphocytes # 3.0 1.0 - 5.5 2015 [facility] HEMATOLOGY Eosinophils 0.2 0.0 - 4.0 2015 [facility] HEMATOLOGY Lymphocytes 25.5 20.0 - 40.0 2015 [facility] Monocytes 6.1 2.0 - 12.0 2015 [facility] RBC 5.08 4.70 - 6.10 2015 [facility] WBC 11.6 3.7 - 10.4 2015 [facility] MPV 7.4 7.4 - 10.4 2015 [facility] Hct 43.6 42.0 - 54.0 2015 [facility] Hgb 14.0 14.0 - 18.0 2015 [facility] MCV 85.7 80.0 - 94.0 2015 [facility] MCH 27.5 27.0 - 31.0 2015 [facility] RDW 15.0 11.5 - 14.5 2015 [facility] Platelet 244 133 - 450 2015 [facility] MCHC 32.1 32.0 - 36.0 2015 [facility] ELECTROLYTES AGAP 14.0 10.0 - 20.0 08/22/2015 [facility] ELECTROLYTES Calcium Lvl 8.3 8.5 - 10.5 08/22/2015 [facility] ELECTROLYTES CO2 26 24 - 32 08/22/2015 [facility] ELECTROLYTES eGFR 104 08/22/2015 Result Comment: [...] should be multiplied by the estimated BMI. [facility] ELECTROLYTES Chloride Lvl 107 95 - 109 08/22/2015 [facility] ELECTROLYTES Potassium Lvl 4.0 3.5 - 5.1 08/22/2015 [facility] ELECTROLYTES Glucose Lvl 84 70 - 99 08/22/2015 [facility] ELECTROLYTES Sodium Lvl 143 135 - 145 08/22/2015 [facility] ELECTROLYTES BUN 11 7 - 22 08/22/2015 [facility] ELECTROLYTES Creatinine Lvl 0.71 0.50 - 1.40 08/22/2015 [facility] HEMATOLOGY Basophils # 0.0 0.0 - 0.2 08/22/2015 [facility] [facility] HEM[facility] Eosinophils 1.2 0.0 - 4.0 08/22/2015 [facility] HEMATOLOGY Monocytes 9.5 2.0 - 12.0 08/22/2015 [facility] HEMATOLOGY Monocytes # 0.6 0.0 - 0.8 08/22/2015 [facility] HEMATOLOGY Segs 59.2 45.0 - 75.0 08/22/2015 [facility] HEMATOLOGY Lymphocytes 29.8 20.0 - 40.0 08/22/2015 [facility] HEMATOLOGY Basophils 0.3 0.0 - 1.0 08/22/2015 [facility] HEMATOLOGY Segs-Bands # 3.8 1.5 - 8.1 08/22/2015 [facility] HEMATOLOGY Eosinophils # 0.1 0.0 - 0.5 08/22/2015 [facility] HEMATOLOGY Lymphocytes # 1.9 1.0 - 5.5 08/22/2015 [facility] HEMATOLOGY RBC 4.51 4.70 - 6.10 08/22/2015 [facility] HEMATOLOGY WBC 6.5 3.7 - 10.4 08/22/2015 [facility] HEMATOLOGY MCV 87.9 80.0 - 94.0 08/22/2015 [facility] HEMATOLOGY Hct 39.6 42.0 - 54.0 08/22/2015 [facility] HEMATOLOGY Hgb 12.7 14.0 - 18.0 08/22/2015 [facility] HEMATOLOGY MCHC 32.1 32.0 - 36.0 08/22/2015 [facility] HEMATOLOGY MCH 28.2 27.0 - 31.0 08/22/2015 [facility] HEMATOLOGY MPV 8.1 7.4 - 10.4 08/22/2015 [facility] HEMATOLOGY Platelet 161 133 - 450 08/22/2015 [facility] HEMATOLOGY RDW 16.3 11.5 - 14.5 08/22/2015 [facility] CARDIAC ENZYMES Troponin-I <0.02 0.00 - 0.40 08/19/2015 [facility] CARDIAC ENZYMES Total CK 54 12 - 191 08/19/2015 [facility] CARDIAC ENZYMES Troponin-I <0.02 0.00 - 0.40 08/18/2015 [facility] CARDIAC ENZYMES Total CK 30 12 - 191 08/18/2015 [facility] CARDIAC ENZYMES Troponin-I <0.02 0.00 - 0.40 08/18/2015 [facility] HEMATOLOGY PT 24.6 12.0 - 14.7 08/18/2015 [facility] HEMATOLOGY INR 2.18 0.85 - 1.17 08/18/2015 [facility] BACTERIAL - SEROLOGY MRSA by PCR Negative (08/18/15 1:44 PM) 08/18/2015 [facility] CARDIAC ENZYMES CK MB Index 3.2 0.0 - 2.5 08/18/2015 [facility] CARDIAC ENZYMES CK MB 2.0 0.5 - 3.6 08/18/2015 [facility] CARDIAC ENZYMES Total CK 62 12 - 191 08/18/2015 [facility] CHEM PANEL Lipase Lvl 114 73 - 393 08/18/2015 [facility] CHEM PANEL eGFR 97 08/18/2015 Result [...] should be multiplied by the estimated BMI. [facility] CHEM PANEL AGAP 14.6 10.0 - 20.0 08/18/2015 [facility] CHEM PANEL CO2 23 24 - 32 08/18/2015 [facility] CHEM PANEL Calcium Lvl 8.7 8.5 - 10.5 08/18/2015 [facility] CHEM PANEL Globulin 3.6 2.0 - 4.0 08/18/2015 [facility] CHEM PANEL Total Protein 6.7 6.4 - 8.4 08/18/2015 [facility] CHEM PANEL Albumin Lvl 3.1 3.5 - 5.0 08/18/2015 [facility] CHEM PANEL AST 21 0 - 37 08/18/2015 [facility] CHEM PANEL ALT 36 0 - 65 08/18/2015 [facility] CHEM PANEL B/C Ratio 25 6 - 25 08/18/2015 [facility] CHEM PANEL Bili Total 0.4 0.2 - 1.3 08/18/2015 [facility] CHEM PANEL A/G Ratio 0.9 0.7 - 1.6 08/18/2015 [facility] CHEM PANEL Alk Phos 64 39 - 136 08/18/2015 [facility] CHEM PANEL Glucose Lvl 85 70 - 99 08/18/2015 [facility] CHEM PANEL BUN 21 7 - 22 08/18/2015 [facility] CHEM PANEL Creatinine Lvl 0.83 0.50 - 1.40 08/18/2015 [facility] CHEM PANEL Potassium Lvl 4.6 3.5 - 5.1 08/18/2015 [facility] CHEM PANEL Sodium Lvl 140 135 - 145 08/18/2015 [facility] CHEM PANEL Chloride Lvl 107 95 - 109 08/18/2015 [facility] HEMATOLOGY Basophils # 0.1 0.0 - 0.2 08/18/2015 [facility] HEMATOLOGY Eosinophils # 0.1 0.0 - 0.5 08/18/2015 [facility] HEMATOLOGY Monocytes # 1.0 0.0 - 0.8 08/18/2015 [facility] HEMATOLOGY Lymphocytes # 2.4 1.0 - 5.5 08/18/2015 [facility] HEMATOLOGY Eosinophils 0.5 0.0 - 4.0 08/18/2015 [facility] HEMATOLOGY Monocytes 7.3 2.0 - 12.0 08/18/2015 [facility] HEMATOLOGY Segs-Bands # 10.0 1.5 - 8.1 08/18/2015 [facility] HEMATOLOGY Basophils 0.4 0.0 - 1.0 08/18/2015 [facility] HEMATOLOGY Lymphocytes 18.0 20.0 - 40.0 08/18/2015 [facility] HEMATOLOGY Segs 73.8 45.0 - 75.0 08/18/2015 [facility] HEMATOLOGY Plt Morph Normal (08/18/15 9:22 AM) 08/18/2015 [facility] HEMATOLOGY RBC Morph Normal (08/18/15 9:22 AM) 08/18/2015 [facility] HEMATOLOGY Platelet 207 133 - 450 08/18/2015 Result Comment: Reviewed. [facility] HEMATOLOGY RBC 4.79 4.70 - 6.10 08/18/2015 [facility] HEMATOLOGY WBC 13.5 3.7 - 10.4 08/18/2015 [facility] HEMATOLOGY Hgb 13.7 14.0 - 18.0 08/18/2015 [facility] HEMATOLOGY Hct 42.1 42.0 - 54.0 08/18/2015 [facility] HEMATOLOGY RDW 16.1 11.5 - 14.5 08/18/2015 [facility] HEMATOLOGY MPV 7.7 7.4 - 10.4 08/18/2015 [facility] HEMATOLOGY MCH 28.5 27.0 - 31.0 08/18/2015 [facility] HEMATOLOGY MCV 87.9 80.0 - 94.0 08/18/2015 [facility] HEMATOLOGY MCHC 32.4 32.0 - 36.0 08/18/2015 [facility] ELECTROLYTES AGAP 11.7 10.0 - 20.0 08/17/2015 [facility] ELECTROLYTES eGFR 112 08/17/2015 Result Comment: [...] be multiplied by the estimated BMI. [facility] ELECTROLYTES Calcium Lvl 7.1 8.5 - 10.5 08/17/2015 [facility] ELECTROLYTES Creatinine Lvl 0.58 0.50 - 1.40 08/17/2015 [facility] ELECTROLYTES Sodium Lvl 146 135 - 145 08/17/2015 [facility] ELECTROLYTES BUN 13 7 - 22 08/17/2015 [facility] ELECTROLYTES Glucose Lvl 78 70 - 99 08/17/2015 [facility] ELECTROLYTES Chloride Lvl 115 95 - 109 08/17/2015 [facility] ELECTROLYTES CO2 23 24 - 32 08/17/2015 [facility] ELECTROLYTES Potassium Lvl 3.7 3.5 - 5.1 08/17/2015 [facility] HEMATOLOGY MCH 28.8 27.0 - 31.0 08/17/2015 [facility] HEMATOLOGY Hct 36.5 42.0 - 54.0 08/17/2015 [facility] HEMATOLOGY MCV 88.6 80.0 - 94.0 08/17/2015 [facility] HEMATOLOGY Hgb 11.8 14.0 - 18.0 08/17/2015 [facility] HEMATOLOGY Platelet 149 133 - 450 08/17/2015 [facility] HEMATOLOGY MCHC 32.5 32.0 - 36.0 08/17/2015 [facility] HEMATOLOGY RDW 15.4 11.5 - 14.5 08/17/2015 [facility] HEMATOLOGY MPV 7.2 7.4 - 10.4 08/17/2015 [facility] HEMATOLOGY WBC 8.5 3.7 - 10.4 08/17/2015 [facility] HEMATOLOGY RBC 4.12 4.70 - 6.10 08/17/2015 [facility] HEMATOLOGY Monocytes 7.1 2.0 - 12.0 08/17/2015 [facility] HEMATOLOGY Basophils 0.4 0.0 - 1.0 08/17/2015 [facility] HEMATOLOGY Segs-Bands # 5.8 1.5 - 8.1 08/17/2015 [facility] HEMATOLOGY Eosinophils 0.5 0.0 - 4.0 08/17/2015 [facility] HEMATOLOGY Lymphocytes 23.4 20.0 - 40.0 08/17/2015 [facility] HEMATOLOGY Segs 68.6 45.0 - 75.0 08/17/2015 [facility] HEMATOLOGY Lymphocytes # 2.0 1.0 - 5.5 08/17/2015 [facility] HEMATOLOGY Monocytes # 0.6 0.0 - 0.8 08/17/2015 [facility] HEMATOLOGY INR 2.09 0.85 - 1.17 08/17/2015 [facility] HEMATOLOGY PT 23.8 12.0 - 14.7 08/17/2015 [facility] HEMATOLOGY INR 1.84 0.85 - 1.17 08/16/2015 [facility] HEMATOLOGY PT 21.6 12.0 - 14.7 08/16/2015 [facility] HEMATOLOGY INR 2.24 0.85 - 1.17 08/15/2015 [facility] HEMATOLOGY PT 25.1 12.0 - 14.7 08/15/2015 [facility] ELECTROLYTES Potassium Lvl 4.2 3.5 - 5.1 08/14/2015 [facility] ELECTROLYTES Chloride Lvl 107 95 - 109 08/14/2015 [facility] ELECTROLYTES Creatinine Lvl 0.93 0.50 - 1.40 08/14/2015 [facility] ELECTROLYTES Sodium Lvl 140 135 - 145 08/14/2015 [facility] ELECTROLYTES BUN 27 7 - 22 08/14/2015 [facility] ELECTROLYTES Calcium Lvl 8.5 8.5 - 10.5 08/14/2015 [facility] ELECTROLYTES CO2 26 24 - 32 08/14/2015 [facility] ELECTROLYTES eGFR 91 08/14/2015 Result Comment: [...] be multiplied by the estimated BMI. [facility] ELECTROLYTES Glucose Lvl 84 70 - 99 08/14/2015 [facility] ELECTROLYTES AGAP 11.2 10.0 - 20.0 08/14/2015 [facility] CHEM PANEL Magnesium Lvl 2.2 1.8 - 2.4 08/10/2015 [facility] CHEM PANEL eGFR 102 08/10/2015 Result [...] be multiplied by the estimated BMI. [facility] CHEM PANEL Calcium Lvl 8.8 8.5 - 10.5 08/10/2015 [facility] CHEM PANEL CO2 28 24 - 32 08/10/2015 [facility] CHEM PANEL Chloride Lvl 106 95 - 109 08/10/2015 [facility] CHEM PANEL Potassium Lvl 4.2 3.5 - 5.1 08/10/2015 [facility] CHEM PANEL Sodium Lvl 140 135 - 145 08/10/2015 [facility] CHEM PANEL BUN 20 7 - 22 08/10/2015 [facility] CHEM PANEL Creatinine Lvl 0.74 0.50 - 1.40 08/10/2015 [facility] CHEM PANEL Glucose Lvl 78 70 - 99 08/10/2015 [facility] CHEM PANEL AGAP 10.2 10.0 - 20.0 08/10/2015 [facility] CHEM PANEL Phosphorus 3.7 2.5 - 4.5 08/10/2015 [facility] HEMATOLOGY RBC Morph Normal (08/10/15 5:29 AM) 08/10/2015 [facility] HEMATOLOGY Plt Morph Normal (08/10/15 5:29 AM) 08/10/2015 [facility] HEMATOLOGY Atypical Lymphs 0.0 <=0.0 % 08/10/2015 [facility] HEMATOLOGY Myelocytes 1.0 <=0.0 % 08/10/2015 [facility] HEMATOLOGY Metamyelocytes 1.0 0.0 - 1.0 08/10/2015 [facility] HEMATOLOGY Lymphocytes 24.0 20.0 - 40.0 08/10/2015 [facility] HEMATOLOGY Monocytes 6.0 2.0 - 12.0 08/10/2015 [facility] HEMATOLOGY Segs-Bands # 8.4 1.5 - 8.1 08/10/2015 [facility] HEMATOLOGY Bands 1.0 0.0 - 11.0 08/10/2015 [facility] HEMATOLOGY Monocytes # 0.7 0.0 - 0.8 08/10/2015 [facility] HEMATOLOGY Lymphocytes # 3.0 1.0 - 5.5 08/10/2015 [facility] HEMATOLOGY Segs 67.0 45.0 - 75.0 08/10/2015 [facility] HEMATOLOGY WBC 12.3 3.7 - 10.4 08/10/2015 [facility] HEMATOLOGY RBC 4.82 4.70 - 6.10 08/10/2015 [facility] HEMATOLOGY Hgb 13.6 14.0 - 18.0 08/10/2015 [facility] HEMATOLOGY MCH 28.3 27.0 - 31.0 08/10/2015 [facility] HEMATOLOGY Platelet 227 133 - 450 08/10/2015 [facility] HEMATOLOGY MCHC 32.4 32.0 - 36.0 08/10/2015 [facility] HEMATOLOGY RDW 15.3 11.5 - 14.5 08/10/2015 [facility] HEMATOLOGY MCV 87.2 80.0 - 94.0 08/10/2015 [facility] HEMATOLOGY Hct 42.0 42.0 - 54.0 08/10/2015 [facility] HEMATOLOGY MPV 7.2 7.4 - 10.4 08/10/2015 [facility] CHEM PANEL Magnesium Lvl 2.1 1.8 - 2.4 08/09/2015 [facility] CHEM PANEL Phosphorus 3.9 2.5 - 4.5 08/09/2015 [facility] HEMATOLOGY Myelocytes 1.0 <=0.0 % 08/09/2015 [facility] HEMATOLOGY RBC Morph Normal (08/09/15 4:34 AM) 08/09/2015 [facility] HEMATOLOGY Atypical Lymphs 1.0 <=0.0 % 08/09/2015 [facility] HEMATOLOGY Monocytes # 0.4 0.0 - 0.8 08/09/2015 [facility] HEMATOLOGY Segs-Bands # 7.7 1.5 - 8.1 08/09/2015 [facility] HEMATOLOGY Lymphocytes # 2.8 1.0 - 5.5 08/09/2015 [facility] HEMATOLOGY Plt Morph Normal (08/09/15 4:34 AM) 08/09/2015 [facility] HEMATOLOGY Lymphocytes 24.0 20.0 - 40.0 08/09/2015 [facility] HEMATOLOGY Monocytes 4.0 2.0 - 12.0 08/09/2015 [facility] HEMATOLOGY Segs 65.0 45.0 - 75.0 08/09/2015 [facility] HEMATOLOGY Bands 4.0 0.0 - 11.0 08/09/2015 [facility] HEMATOLOGY Metamyelocytes 1.0 0.0 - 1.0 08/09/2015 [facility] HEMATOLOGY MCV 88.1 80.0 - 94.0 08/09/2015 [facility] HEMATOLOGY MCHC 32.6 32.0 - 36.0 08/09/2015 [facility] HEMATOLOGY MCH 28.7 27.0 - 31.0 08/09/2015 [facility] HEMATOLOGY Hct 42.6 42.0 - 54.0 08/09/2015 [facility] HEMATOLOGY Hgb 13.9 14.0 - 18.0 08/09/2015 [facility] HEMATOLOGY MPV 7.4 7.4 - 10.4 08/09/2015 [facility] HEMATOLOGY RDW 15.4 11.5 - 14.5 08/09/2015 [facility] HEMATOLOGY Platelet 205 133 - 450 08/09/2015 [facility] HEMATOLOGY RBC 4.83 4.70 - 6.10 08/09/2015 [facility] HEMATOLOGY WBC 11.1 3.7 - 10.4 08/09/2015 [facility] CHEM PANEL Magnesium Lvl 2.2 1.8 - 2.4 08/08/2015 [facility] CHEM PANEL Phosphorus 4.1 2.5 - 4.5 08/08/2015 [facility] HEMATOLOGY Eosinophils # 0.2 0.0 - 0.5 08/08/2015 [facility] HEMATOLOGY Basophils # 0.1 0.0 - 0.2 08/08/2015 [facility] HEMATOLOGY Plt Morph Normal (08/08/15 3:55 AM) 08/08/2015 [facility] HEMATOLOGY RBC Morph Normal (08/08/15 3:55 AM) 08/08/2015 [facility] HEMATOLOGY Basophils 0.5 0.0 - 1.0 08/08/2015 [facility] HEMATOLOGY Eosinophils 1.2 0.0 - 4.0 08/08/2015 [facility] HEMATOLOGY Basophils 0.7 0.0 - 1.0 08/07/2015 [facility] HEMATOLOGY Eosinophils 0.4 0.0 - 4.0 08/07/2015 [facility] HEMATOLOGY Basophils # 0.1 0.0 - 0.2 08/07/2015 [facility] HEMATOLOGY PTT 69.5 22.9 - 35.8 08/06/2015 [facility] HEMATOLOGY Toxic Gran See Note 1 (08/06/15 3:33 AM) None Seen 08/06/2015 Result Comment: Slight [facility] HEMATOLOGY Atypical Lymphs 0.0 <=0.0 % 08/06/2015 [facility] HEMATOLOGY Bands 1.0 0.0 - 11.0 08/06/2015 [facility] HEMATOLOGY PTT 64.0 22.9 - 35.8 08/05/2015 [facility] HEMATOLOGY Toxic Gran slight 08/05/2015 [facility] HEMATOLOGY PTT 68.9 22.9 - 35.8 08/05/2015 [facility] HEMATOLOGY Anisocyte 1+ *ABN* (07/31/15 10:41 AM) None Seen 07/31/2015 [facility] HEMATOLOGY Basophils # 0.2 0.0 - 0.2 07/31/2015 [facility] CHEM PANEL Lactic Acid Lvl 1.0 0.5 - 2.2 07/30/2015 [facility] HEMATOLOGY POC Activated Clotting Time 206 07/28/2015 [facility] HEMATOLOGY Eosinophils # 0.1 0.0 - 0.5 07/28/2015 [facility] HEMATOLOGY Eosinophils # 0.1 0.0 - 0.5 07/27/2015 [facility] LIPIDS HDL 45 >=61 mg/dL 07/25/2015 [facility] LIPIDS Chol 162 <=199 mg/dL 07/25/2015 [facility] LIPIDS Trig 74 <=149 mg/dL 07/25/2015 [facility] LIPIDS VLDL 15 07/25/2015 [facility] LIPIDS LDL (Calculated) 102 <=99 mg/dL 07/25/2015 [facility] LIPIDS CHD Risk 3.60 4.00 - 7.30 07/25/2015 [facility] CARDIAC ENZYMES Troponin-I 0.09 0.00 - 0.40 07/21/2015 [facility] CARDIAC ENZYMES Troponin-T 0.035 0.000 - 0.100 07/21/2015 [facility] CARDIAC ENZYMES Total CK 36 12 - 191 07/21/2015 [facility] CARDIAC ENZYMES Troponin-I 0.10 0.00 - 0.40 07/21/2015 [facility] CARDIAC ENZYMES Total CK 32 12 - 191 07/21/2015 [facility] CARDIAC ENZYMES BNP 158 <=100 pg/mL 07/21/2015 [facility] CHEM PANEL A/G Ratio 0.9 0.7 - 1.6 07/21/2015 [facility] CHEM PANEL Bili Total 0.8 0.2 - 1.3 07/21/2015 [facility] CHEM PANEL Alk Phos 59 39 - 136 07/21/2015 [facility] CHEM PANEL Globulin 3.3 2.0 - 4.0 07/21/2015 [facility] CHEM PANEL B/C Ratio 14 6 - 25 07/21/2015 [facility] CHEM PANEL AST 6 0 - 37 07/21/2015 [facility] CHEM PANEL ALT 15 0 - 65 07/21/2015 [facility] CHEM PANEL Albumin Lvl 2.9 3.5 - 5.0 07/21/2015 [facility] CHEM PANEL Total Protein 6.2 6.4 - 8.4 07/21/2015 [facility] CHEM PANEL Amylase Lvl 46 25 - 115 07/21/2015 [facility] CHEM PANEL Lipase Lvl 85 73 - 393 07/21/2015 [facility] SPECIAL CHEMISTRY Hgb A1C 5.4 <=5.6 % 07/21/2015 [facility] Pathology Reports No Data Provided for This Section Diagnostic Reports Report Value Date Source Chest CTA Patient Name: ALETHA LOWERY : 1955; Age: 59 years Male MR: [id number] Study: Chest CTA 2015 3:09 PM CDT [...] 2015 6:09 PM CDT. SL: ANGELY 2015 [facility] 1view DX Study: Chest 1view DX Clinical Indication: Dyspnea Comparison: Chest x-ray from 08/21/2015 FINDINGS: Left sided dual-chamber pacemaker is stable. Cardiac silhouette is normal in size. Small right pleural effusion is seen. There is no pneumothorax. The osseous structures are unremarkable. IMPRESSION: Small right pleural effusion SL: [id number] 2015 [facility] 1view DX Patient Name: ALETHA LOWERY. : 1955; Age: 59 years y/o; Male. MR: [id number]. Ordering Physician: Jocy Bailon MD. PORTABLE CHEST [...] Left lung is unremarkable. SL: [id number] 08/21/2015 [facility] Knee 1-2 Views Bilateral DX Two-view [...] knee joint effusion suspected. SL: WR1-M 08/20/2015 [facility] Brain wo contrast CT Patient Name: ALETHA LOWERY : 1955; Age: 59 years; Gender: Male MR: [id number] Ordering Physician: Piter Leslie MD PROCEDURE: CT head without contrast INDICATION: Pain Post Trauma. Fall with trauma to the frontal area. Patient is on blood thinners. TECHNIQUE: CT images were obtained from the foramen magnum to the vertex without the use of intravenous contrast on a multidetector CT. Total CT radiation dose: MVW=2545 mGy-cm COMPARISON: None. FINDINGS: No evidence for [...] 3. Possible mild right maxillary sinusitis. SL: [id number] 08/20/2015 [facility] Chest 1view DX CHEST RADIOGRAPH ONE [...] and/or thickening. 3. Enlarged cardiac silhouette. SL: [id number] 08/18/2015 [facility] Chest 1view DX EXAM: XR CHEST 1 VIEW DATE: 08/06/2015 8:49 AM CDT INDICATION: Coughing. FINDINGS: Comparison is made to August 01. The cardiomediastinal silhouette, life-support lines and tubes are stable. The lungs are clear of consolidation. There are calcified granulomas in the right lower lobe. No pleural effusions are identified. IMPRESSION: No acute abnormality. 08/06/2015 [facility] Chest 1view DX EXAM: XR CHEST 1 VIEW DATE: 08/02/2015 10:20 AM CDT INDICATION: Abnormal chest sounds COMPARISON: Chest x-ray from 07/30/2015 TECHNIQUE: AP chest FINDINGS: Stable right arm PICC. Stable left implantable cardiac defibrillator Stable cardiomediastinal silhouette. Small right pleural effusion versus pleural thickening. No new pleural or parenchymal based abnormalities. IMPRESSION: No significant change. 08/02/2015 [facility] Chest 1view DX EXAM: XR CHEST 1 VIEW DATE: 07/30/2015 7:41 PM CDT INDICATION: Dyspnea COMPARISON: Yesterday TECHNIQUE: AP chest FINDINGS: Stable right arm PICC. Stable left implantable cardiac defibrillator Stable cardiomediastinal silhouette. Small right pleural effusion versus pleural thickening. No new pleural or parenchymal based abnormalities. IMPRESSION: No significant changes compared to yesterday. 07/30/2015 [facility] HVI VAS Venous Lower Ext Bilat [...] no evidence of deep venous thrombosis. 07/29/2015 [facility] Chest 1view DX EXAM: XR CHEST 1 VIEW DATE: 07/29/2015 9:47 AM CDT INDICATION: Shortness of Breath COMPARISON: 07/21/2015 TECHNIQUE: AP chest FINDINGS: Stable right arm PICC. Stable left implantable cardiac defibrillator Stable cardiomediastinal silhouette. Small right pleural effusion. No new pleural or parenchymal based abnormalities. IMPRESSION: No significant changes compared to yesterday at 2:24 AM 07/29/2015 [facility] HVI VAS Arterial Extracranial Doppler Bi [...] was noted in the vertebral arteries. 07/21/2015 [facility] Chest 1view DX EXAM: XR CHEST [...] tip overlies the right brachiocephalic vein. 07/21/2015 [facility] Consultation Notes No Data Provided for This Section Discharge Summaries No Data Provided for This Section History and Physicals No Data Provided for This Section Vital Signs Vital Sign Value Date Comments Source Systolic (mm Hg) 109 12/02/2015 [facility] Diastolic (mm Hg) 76 12/02/2015 [facility] Respitory Rate 22 12/02/2015 [facility] Heart Rate 87 12/02/2015 [facility] Temperature Oral (F) 97.6 F 12/02/2015 [facility] Systolic (mm Hg) 122 12/02/2015 [facility] Diastolic (mm Hg) 82 12/02/2015 [facility] Heart Rate 74 12/02/2015 [facility] Temperature Oral (F) 97.3 F 12/02/2015 [facility] Respitory Rate 21 12/02/2015 [facility] Temperature Oral (F) 97.3 F 12/02/2015 [facility] Heart Rate 73 12/02/2015 [facility] Systolic (mm Hg) 104 12/02/2015 [facility] Diastolic (mm Hg) 67 12/02/2015 [facility] Respitory Rate 16 12/02/2015 [facility] Height 182.88 cm 2015 [facility] BMI Calculated 31.53 2015 [facility] Weight 105.455 2015 [facility] Weight 113.636 2015 [facility] Height 182.88 cm 2015 [facility] BMI Calculated 33.98 2015 [facility] Respitory Rate 20 08/23/2015 [facility] Heart Rate 83 08/23/2015 [facility] Temperature Oral (F) 97.4 F 08/23/2015 [facility] Systolic (mm Hg) 107 08/23/2015 [facility] Diastolic (mm Hg) 53 08/23/2015 [facility] Temperature Oral (F) 97.7 F 08/23/2015 [facility] Heart Rate 82 08/23/2015 [facility] Respitory Rate 20 08/23/2015 [facility] Systolic (mm Hg) 130 08/23/2015 [facility] Diastolic (mm Hg) 84 08/23/2015 [facility] Respitory Rate 20 08/23/2015 [facility] Temperature Oral (F) 97.3 F 08/23/2015 [facility] Systolic (mm Hg) 128 08/23/2015 [facility] Diastolic (mm Hg) 85 08/23/2015 [facility] Height 182.88 cm 08/18/2015 [facility] Weight 95 08/18/2015 [facility] BMI Calculated 28.4 08/18/2015 [facility] Heart Rate 83 08/18/2015 [facility] Systolic (mm Hg) 125 08/18/2015 [facility] Diastolic (mm Hg) 82 08/18/2015 [facility] Heart Rate 105 08/18/2015 [facility] Respitory Rate 18 08/18/2015 [facility] Temperature Oral (F) 97.9 F 08/18/2015 [facility] Heart Rate 83 08/18/2015 [facility] Respitory Rate 18 08/18/2015 [facility] Systolic (mm Hg) 91 08/18/2015 [facility] Diastolic (mm Hg) 67 08/18/2015 [facility] Temperature Oral (F) 97.7 F 08/17/2015 [facility] Systolic (mm Hg) 102 08/17/2015 [facility] Diastolic (mm Hg) 71 08/17/2015 [facility] Respitory Rate 18 08/17/2015 [facility] Heart Rate 81 08/17/2015 [facility] Temperature Oral (F) 97.7 F 08/17/2015 [facility] BMI Calculated 29.77 07/21/2015 [facility] Weight 99.574 07/21/2015 [facility] [facility] Height 182.88 cm 07/21/2015 [facility] Encounters Location Location Details Encounter Type Encounter Number Reason For Visit Attending Provider ADM Date DC Date Status Source [facility] Inpatient [id number] Arie Chung 07/21/2015 08/18/2015 [facility] OBS Observation Patient [id number] Elham Bryson 08/18/2015 08/23/2015 [facility] Inpatient [id number] Octavio Dc Jr 2015 12/02/2015 [facility] Procedures Procedure Code Date Perfomer Comments Source Insertion of cardiac pacemaker [id number] [facility] Assessment and Plan Assessment and Plan Date Source Extracted from:Title: Clinical Document Author: Jana Monson MD Date: 12/02/15 [facility] Progress Note Impression: Prior PE [...] CTA of the chest done at the [facility]. Those records would be helpful, to [...] discharge tomorrow. Will likely need SW assistance. [facility] Providers Hospitalist Service is primary. Call with questions. 12/02/2015 BALDO Rosales Extracted from:Title: Discharge Summary Author: Jocy Bailon MD Date: 08/23/15 <Discharge Summary> Attending: Elham Bryson MD Service: Internal Medicine Code status: None Specified=FULL CODE Reason for Admission: CHEST PAIN, BRADYCARDIA, SUICIDAL IDEATION Working DRG: None Documented Isolation: None Documented Consulting Physicians: Humberto Beavers MD Office: MSO: [id number] Service: Cardiology Piter Leslie MD Office: MSO: [id number] Service: Medicine Jocy Bailon MD Office: MSO: [id number] Service: Medicine Elham Bryson MD Office: MSO: [id number] Service: Medicine Admission Date: 08/18/2015 Discharge Date: [...] dx iwth PE, who was sent from [facility] for an episode of bradycardia and [...] PCP in 1 week after discharge from [facility] I have spent 35 min with the patient and in coordinating discharge. Extracted from:Title: [facility] Cardiology Consult Note Author: Rosemary Vasquez [...] consult. Patient okay to discharge back to [facility] [place]. He should follow-up with PCP or Billing Rep upon discharge. 08/23/2015 [facility] Extracted from:Title: Clinical Document Author: Arie Chung MD Date: 08/16/15 Acute Care Service Line Progress Note Pager#[phone] Attending: Arie Chung Subjective: complains of back [...] alcohol abuse and COPD who presented to [facility] with chest pain as an outside [...] would otherwise require daily venous sticks. 08/18/2015 [facility] Plan of Care No Data Provided [...] Yes; Reg Smoking Cessation Counseling No 12/01/2015 [facility] Social History TypeResponse Alcohol Current, Type Beer. [...] Yes; Reg Smoking Cessation Counseling No 07/21/2015 [facility] Social History TypeResponse Alcohol Current, Type [...] Yes; Reg Smoking Cessation Counseling No 07/21/2015 [facility] Family History No Data Provided for This Section Advance Directives No Data Provided for This Section Functional Status No Data Provided for This Section
--- OUTSIDE RECORDS SUMMARY | 2019-01-26 10:36 | XMS REPORT | Continuity of Care Document ---
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 Role Phone StyleCaster Information [place] Unavailable Unavailable Problems Problem Status Onset Date Classification Date Reported Comments Source SOB / CHEST PAIN Active 2015 [facility] BRONCHITIS, CHEST PAIN Active 2015 [facility] WEAK Active 08/18/2015 [facility] CHEST PAIN, BRADYCARDIA, SUICIDAL IDEATI Active 08/18/2015 [facility] DEBILITATED Active 08/07/2015 [facility] DEBILITY Active 08/07/2015 [facility] LEFT CORONARY ANOMALY Active 07/20/2015 [facility] Anxiety Active Problem 12/05/2015 [facility] COPD Active Problem 12/05/2015 [facility] Depressed Active Problem 12/05/2015 [facility] Hypertension Active Problem 12/05/2015 [facility] Major depressive disorder Active Problem 12/05/2015 [facility] Pacemaker Active Problem 12/05/2015 [facility] Psychomotor retardation Active Problem 12/05/2015 [facility] Pulmonary embolism Resolved Problem 12/05/2015 [facility] Tobacco abuse Active Problem 12/05/2015 [facility] Unstable angina Active Problem 12/05/2015 [facility] OTHER SPECIFIED CONGENITAL DEFORMITIES Active [facility] OTHER MALAISE Active [facility] BRONCHITIS, NOT SPECIFIED ACUTE OR CH Active [facility] Medications Medication Details Route Status Patient Instructions Ordering Provider Order Date Source rivaroxaban 20 mg oral tablet 20 mg=1 tab, PO, QPM, 0 Refill(s) Active 12/02/2015 [facility] lamoTRIgine 25 mg oral tablet 25 mg=1 tab, PO, BID, 0 Refill(s) Active 12/02/2015 [facility] QUEtiapine 25 mg oral tablet 25 mg=1 tab, PO, Q4H, PRN Anxiety, 0 Refill(s) Active 12/02/2015 [facility] Seroquel 25 mg, 1 tab, Route: PO, Drug form: TAB, TID, Dosing Weight 105.455, kg, Start date: 12/02/15 13:00:00 CDT, Duration: 30 day, Stop date: 01/01/16 9:00:00 CDTNotes: (Same as: SEROquel) Inactive 12/02/2015 [facility] Seroquel 25 mg, 1 tab, Route: PO, Drug form: TAB, Q4H, Dosing Weight 105.455, kg, PRN Anxiety, Start date: 12/02/15 12:54:00 CDT, Duration: 30 day, Stop date: 01/01/16 12:53:00 CDTNotes: (Same as: SEROquel) Inactive 12/02/2015 [facility] lamoTRIgine 25 mg oral tablet 25 mg, 1 tab, Route: PO, Drug form: TAB, BID, Dosing Weight 105.455, kg, Priority: NOW, Start date: 12/02/15 11:31:00 CDT, Duration: 30 day, Stop date: 01/01/16 9:00:00 CDTNotes: (Same as:LaMICtal) Inactive 12/02/2015 [facility] Mirtazapine 30 mg, 2 tab, Route: PO, Drug form: TAB, Bedtime, Dosing Weight 105.455, kg, Start date: 11/29/15 21:00:00 CDT, Duration: 30 day, Stop date: 12/28/15 21:00:00 CDTNotes: (Same as:Remeron) No Longer Active 11/30/2015 [facility] Seroquel 50 mg, 2 tab, Route: PO, Drug form: TAB, Bedtime, Dosing Weight 105.455, kg, Start date: 11/29/15 21:00:00 CDT, Stop date: 12/28/15 21:00:00 CDTNotes: (Same as: SEROquel) No Longer Active 11/30/2015 [facility] Xarelto 20 mg, 1 tab, Route: PO, Drug form: TAB, QPM, Dosing Weight 105.455, kg, Start date: 11/29/15 20:00:00 CDT, Duration: 30 day, Stop date: 12/28/15 20:00:00 CDTNotes: (Same as: Xarelto) Administer with food No Longer Active 11/30/2015 [facility] Seroquel 25 mg, 1 tab, Route: PO, Drug form: TAB, Q6H, Dosing Weight 105.455, kg, PRN Agitation, Start date: 11/29/15 19:38:00 CDT, Duration: 30 day, Stop date: 12/29/15 19:37:00 CDTNotes: (Same as: SEROquel) No Longer Active 11/30/2015 [facility] Acetaminophen 300 MG / Codeine Phosphate 30 MG Oral Tablet [Tylenol with Codeine #3] 1 tab, Route: PO, Drug Form: TAB, Dosing Weight 105.455, kg, Q6H, PRN Pain Score 6-10, Start date: 11/29/15 18:44:00 CDT, Duration: 30 day, Stop date: 12/29/15 18:43:00 CDTNotes: Do not exceed 4gm/day of acetaminophen. (Same as: Tylenol with Codeine # 3) No Longer Active 11/29/2015 [facility] POLYETHYLENE GLYCOL 3350 17 gm, 1 pkt, Route: PO, Drug form: PWDR, BID, Dosing Weight 105.455, kg, Start date: 11/29/15 9:00:00 CDT, Duration: 30 day, Stop date: 12/28/15 17:00:00 CDTNotes: Dissolve in 8 oz of water or juice. (Same as: Miralax) No Longer Active 11/29/2015 [facility] Folic Acid 1 mg, 1 tab, Route: PO, Drug form: TAB, Daily, Dosing Weight 105.455, kg, Start date: 11/29/15 9:00:00 CDT, Duration: 30 day, Stop date: 12/28/15 9:00:00 CDTNotes: (Same as: Folvite) No Longer Active 11/29/2015 [facility] Flonase 0.05 mg/inh nasal spray 2 spray, Route: Each Affected Nostril, Drug Form: SPRY, Dosing Weight 105.455, kg, Daily, Start date: 11/29/15 9:00:00 CDT, Duration: 30 day, Stop date: 12/28/15 9:00:00 CDTNotes: (Same as: Flonase) No Longer Active 11/29/2015 [facility] carvedilol 3.125 mg, 1 tab, Route: PO, Drug form: TAB, Q12H, Dosing Weight 105.455, kg, Start date: 11/29/15 9:00:00 CDT, Duration: 30 day, Stop date: 12/28/15 21:00:00 CDTNotes: Give with food. (Same As: Coreg) No Longer Active 11/29/2015 [facility] Budesonide 1 inhalation, Route: INHALATION, Drug form: PWDR, BID, Dosing Weight 105.455, kg, Start date: 11/29/15 9:00:00 CDT, Duration: 30 day, Stop date: 12/28/15 17:00:00 CDTNotes: Same as Pulmicort Flexhaler Non-Formulary Drug No Longer Active 11/29/2015 [facility] Aspirin 81 mg, 1 tab, Route: PO, Drug form: ECTAB, Daily, Dosing Weight 105.455, kg, Start date: 11/29/15 9:00:00 CDT, Duration: 30 day, Stop date: 12/28/15 9:00:00 CDTNotes: Do not crush or chew. (Same As: Ecotrin) No Longer Active 11/29/2015 [facility] Thiamine 100 mg, 1 tab, Route: PO, Drug form: TAB, Daily, Dosing Weight 105.455, kg, Start date: 11/29/15 9:00:00 CDT, Duration: 30 day, Stop date: 12/28/15 9:00:00 CDTNotes: (Same As: Vitamin B1) No Longer Active 11/29/2015 [facility] Nitroglycerin 0.4 MG Sublingual Tablet 0.4 mg, 1 tab, Route: SL, Drug form: TAB, Q5Min, Dosing Weight 105.455, kg, PRN Chest Pain, Start date: 11/28/15 21:08:00 CDT, Duration: 30 day, Stop date: 12/28/15 21:07:00 CDT Inactive 11/29/2015 [facility] Calcium Carbonate 500 MG Chewable Tablet 500 mg, 1 tab, Route: CHEW, Drug form: CHEWTAB, TID, Dosing Weight 105.455, kg, PRN Indigestion, Start date: 11/28/15 21:07:00 CDT, Duration: 30 day, Stop date: 12/28/15 21:06:00 CDTNotes: (Same As: César) Calcium Carbonate 500 vm=157 mg elemental calcium Dose= mg calcium carbonate ( mg elemental calcium) No Longer Active 11/29/2015 [facility] 200 ACTUAT Albuterol 0.09 MG/ACTUAT Metered Dose Inhaler 2 puff, Route: INHALATION, Drug Form: AERO/A, Dosing Weight 105.455, kg, QID, PRN Wheezing, Start date: 11/28/15 21:07:00 CDT, Duration: 30 day, Stop date: 12/28/15 21:06:00 CDTNotes: Albuterol 90 microgram/inh 8gm HFA WASTE: Aerosol - Return to Pharmacy Same as: Violette Proventil No Longer Active 11/29/2015 [facility] Saline Flush 0.9% 10 ml, Route: IVP, Drug Form: INJ, Dosing Weight 113.636, kg, Q12H, Start date: 11/28/15 21:00:00 CDT, Duration: 30 day, Stop date: 12/28/15 9:00:00 CDTNotes: (Same as: BD Posiflush) No Longer Active 11/29/2015 [facility] Albuterol 0.83 MG/ML Inhalant Solution 2.5 mg, 3.01 mL, Route: INHALATION, Drug form: SOLN, RQ6H, Dosing Weight 113.636, kg, Start date: 11/28/15 20:00:00 CDT, Duration: 30 day, Stop date: 12/28/15 14:00:00 CDTNotes: SEE RT DOCUMENTATION (Same as: Proventil) No Longer Active 11/29/2015 [facility] Lovenox 105.455 mg, 0.7 mL, Route: SUB-Q, Drug form: INJ, [id number], Dosing Weight 105.455, kg, Start date: 11/28/15 17:00:00 CDT, Duration: 30 day, Stop date: 12/28/15 9:00:00 CDTNotes: Nurse to ensure document ation of patient education per anticoagulation policy. (Same as: Lovenox) No Longer Active 2015 [facility] Alprazolam 1 MG Oral Tablet [Xanax] 1 mg, 1 tab, Route: PO, Drug form: TAB, ONCE, Dosing Weight 105.455, kg, PRN Anxiety, Start date: 11/28/15 16:13:00 CDT, Stop date: 12/28/15 16:12:00 CDTNotes: With food or milk (Same as: Xanax) Inactive 2015 [facility] Saline Flush 0.9% 10 ml, Route: IVP, Drug Form: INJ, Dosing Weight 113.636, kg, PRN, PRN Line Flush, Start date: 11/28/15 15:24:00 CDT, Duration: 30 day, Stop date: 12/28/15 15:23:00 CDTNotes: (Same as: BD Posiflush) No Longer Active 2015 [facility] Nitroglycerin 0.4 mg, 1 tab, Route: SL, Drug form: TAB, Q5Min, Dosing Weight 113.636, kg, PRN Chest Pain, Start date: 11/28/15 15:24:00 CDT, Duration: 3 doses or times, Stop date: Limited # of timesNotes: (Same as :Nitroquick, Nitrostat) "Do Not Crush" Sublingual tablet No Longer Active 2015 [facility] Morphine 2 mg, 1 mL, Route: IVP, Drug form: INJ, Q15Min, Dosing Weight 113.636, kg, PRN Chest Pain, Start date: 11/28/15 15:24:00 CDT, Duration: 2 doses or times, Stop date: Limited # of timesNotes: (Same as: MORPhine Sulfate) No Longer Active 2015 [facility] Ondansetron 4 mg, 1 tab, Route: PO, Drug form: TAB, Q8H, Dosing Weight 113.636, kg, PRN Nausea & Vomiting, Start date: 11/28/15 15:24:00 CDT, Duration: 30 day, Stop date: 12/28/15 15:23:00 CDTNotes: (Same as: Glen) No Longer Active 2015 [facility] Aspirin 325 MG Oral Tablet 325 mg, 1 tab, Route: PO, Drug form: TAB, ONCE, Dosing Weight 113.636, kg, Start date: 11/28/15 15:24:00 CDT, Stop date: 11/28/15 15:24:00 CDTNotes: Take with food. Inactive 2015 [facility] Sodium Chloride 0.154 MEQ/ML Injectable Solution 1,000 mL, 1,000 ml/hr, Infuse Over: 1 hr, Route: IV, ONCE, Priority: STAT, Dosing Weight 113.636 kg, Start date: 11/28/15 13:34:00 CDT, Duration: 1 doses or times, Stop date: 11/28/15 13:34:00 CDT Inactive 2015 [facility] Morphine 4 mg, Route: IVP, Drug form: INJ, ONCE, Dosing Weight 113.636, kg, Priority: STAT, Start date: 11/28/15 13:34:00 CDT, Stop date: 11/28/15 13:34:00 CDT Inactive 2015 [facility] Nitroglycerin 0.02 MG/MG Topical Ointment 0.5 inch, Route: TOP, Dosing Weight 113.636, kg, ONCE, STAT, Start date: 11/28/15 13:32:00 CDT, Stop date: 11/28/15 13:32:00 CDT Inactive 2015 [facility] Ipratropium 0.5 mg, 2.5 mL, Route: NEB, Drug form: SOLN, ONCE, Dosing Weight 113.636, kg, Priority: STAT, Start date: 11/28/15 10:59:00 CDT, Stop date: 11/28/15 10:59:00 CDTNotes: SEE RT DOCUMENTATION (Same as:Stacey romero) Inactive 2015 [facility] Albuterol 0.83 MG/ML Inhalant Solution 10 mg, Route: NEB, Drug form: SOLN, Continuous, Dosing Weight 113.636, kg, Priority: STAT, Start date: 11/28/15 10:59:00 CDT, Duration: 30 day, Stop date: 12/28/15 10:58:00 CDT Inactive 2015 [facility] methylPREDNISolone SODium SUCCinate 125 mg, 2 mL, Route: IVP, Drug form: INJ, ONCE, Dosing Weight 113.636, kg, Priority: STAT, Start date: 11/28/15 10:59:00 CDT, Stop date: 11/28/15 10:59:00 CDTNotes: (Same as:Solu-MEDROL, A-Methapred) Inactive 2015 [facility] Magnesium Sulfate 2 gm, Route: IVPB, ONCE, Dosing Weight 113.636, kg, Priority: STAT, Start date: 11/28/15 10:59:00 CDT, Stop date: 11/28/15 10:59:00 CDT Inactive 2015 [facility] Saline Flush 0.9% 10 mL, Route: IVP, Drug Form: INJ, Dosing Weight 113.636, kg, PRN, PRN Line Flush, Start date: 11/28/15 10:59:00 CDT, Duration: 30 day, Stop date: 12/28/15 10:58:00 CDTNotes: (Same as: BD Posiflush) Inactive 2015 [facility] Ketoconazole 20 MG/ML Medicated Shampoo 1 appl, Route: TOP, QWed, Drug form: SHMP, Start date: 08/23/15 9:00:00 CDT, Duration: 30 day, Stop date: 09/20/15 9:00:00 CDT No Longer Active 08/23/2015 [facility] predniSONE 5 mg, 1 tab, Route: PO, Drug form: TAB, Daily, Start date: 08/20/15 9:00:00 CDT, Duration: 3 doses or times, Stop date: 08/22/15 9:00:00 CDTNotes: Take with food. No Longer Active 08/20/2015 [facility] Xarelto 15 mg, 1 tab, Route: PO, Drug form: TAB, Q12H, Dosing Weight 95, kg, Start date: 08/20/15 9:00:00 CDT, Duration: 30 day, Stop date: 09/18/15 21:00:00 CDTNotes: (Same as: Xarelto) Administer with food No Longer Active 08/20/2015 [facility] {42 (rivaroxaban 15 MG Oral Tablet [Xarelto]) / 9 (rivaroxaban 20 MG Oral Tablet [Xarelto]) } Pack [Xarelto Kit] 1 tab, PO, BID-Meals, Take 15 mg tablets twice daily with food for 21 days. Beginning day 22,take one 20 mg tablet daily with food for the remainder of therapy., X 30 day, # 1 pkt, 0 Refill(s) Active 08/20/2015 [facility] Pulmicort Respules 0.5 mg, 2 mL, Route: NEB, Drug form: SUSP, RBID, Start date: 08/19/15 22:00:00 CDT, Duration: 30 day, Stop date: 09/18/15 20:00:00 CDTNotes: (Same As: Pulmicort) No Longer Active 08/20/2015 [facility] Thiamine 100 mg, 1 tab, Route: PO, Drug form: TAB, Daily, Dosing Weight 95, kg, Start date: 08/19/15 9:00:00 CDT, Duration: 30 day, Stop date: 09/17/15 9:00:00 CDTNotes: (Same As: Vitamin B1) No Longer Active 08/19/2015 [facility] Ketoconazole 20 MG/ML Medicated Shampoo 1 appl, Route: TOP, QSat, Drug form: SHMP, Start date: 08/19/15 9:00:00 CDT, Duration: 30 day, Stop date: 09/16/15 9:00:00 CDT No Longer Active 08/19/2015 [facility] Folic Acid 1 mg, 1 tab, Route: PO, Drug form: TAB, Daily, Dosing Weight 95, kg, Start date: 08/19/15 9:00:00 CDT, Duration: 30 day, Stop date: 09/17/15 9:00:00 CDTNotes: (Same as: Folvite) No Longer Active 08/19/2015 [facility] Flonase 0.05 mg/inh nasal spray 2 spray, Route: Each Affected Nostril, Drug Form: SPRY, Dosing Weight 95, kg, Daily, Start date: 08/19/15 9:00:00 CDT, Duration: 30 day, Stop date: 09/17/15 9:00:00 CDTNotes: (Same as: Flonase) No Longer Active 08/19/2015 [facility] Aspirin 81 mg, 1 tab, Route: PO, Drug form: ECTAB, Daily, Dosing Weight 95, kg, Start date: 08/19/15 9:00:00 CDT, Duration: 30 day, Stop date: 09/17/15 9:00:00 CDTNotes: Do not crush or chew. (Same As: Ecotrin) No Longer Active 08/19/2015 [facility] Bacitracin 0.4 UNT/MG / Neomycin 0.0035 MG/MG / Polymyxin B 10 UNT/MG Ophthalmic Ointment 1 appl, Route: BOTH EYES, Q3H, Drug form: OINT, Start date: 08/18/15 23:00:00 CDT, Duration: 30 day, Stop date: 09/17/15 20:00:00 CDTNotes: (bacitracin/neomycin/ polymyxin B 3.5 gm oph OIN) (Same As: Neosporin, Triple Antibiotic) No Longer Active 08/19/2015 [facility] Mirtazapine 30 mg, 2 tab, Route: PO, Drug form: TAB, Bedtime, Dosing Weight 95, kg, Start date: 08/18/15 21:00:00 CDT, Duration: 30 day, Stop date: 09/16/15 21:00:00 CDTNotes: (Same as:Remeron) No Longer Active 08/19/2015 [facility] carvedilol 3.125 mg, 1 tab, Route: PO, Drug form: TAB, Q12H, Dosing Weight 95, kg, Start date: 08/18/15 21:00:00 CDT, Duration: 30 day, Stop date: 09/17/15 9:00:00 CDTNotes: Give with food. (Same As: Coreg) No Longer Active 08/19/2015 [facility] Budesonide 1 inhalation, Route: INHALATION, Drug form: PWDR, RBID, Dosing Weight 95, kg, Start date: 08/18/15 20:00:00 CDT, Duration: 30 day, Stop date: 09/17/15 8:00:00 CDTNotes: Same as Pulmicort Flexhaler Non- Formulary Drug Inactive 08/19/2015 [facility] Polymyxin B 90911 UNT/ML / Trimethoprim 1 MG/ML Ophthalmic Solution 1 drp, Route: BOTH EYES, Q3H, Start date: 08/18/15 17:00:00 CDT, Duration: 30 day, Stop date: 09/17/15 14:00:00 CDT Inactive 08/18/2015 [facility] Warfarin 7.5 mg, 1 tab, Route: [...] Coumadin) No Longer Active 08/18/2015 [facility] POLYETHYLENE GLYCOL 3350 17 gm, Route: PO, Drug form: PDR/REC, BID, Dosing Weight 95, kg, Start date: 08/18/15 17:00:00 CDT, Duration: 30 day, Stop date: 09/17/15 9:00:00 CDTNotes: (Same as: MiraLax) No Longer Active 08/18/2015 [facility] Polymyxin B 04277 UNT/ML / Trimethoprim 1 MG/ML Ophthalmic Solution 1 drp, BOTH EYES, Q3H, X 7 day, # 10 mL, 0 Refill(s) No Longer Active 08/18/2015 [facility] remove patch 1 patch, Route: TOP, Q24H, Drug form: ERFILM, Start date: 08/18/15 15:00:00 CDT, Duration: 30 day, Stop date: 09/16/15 15:00:00 CDTNotes: Remove patch 12 hours after application each day. No Longer Active 08/18/2015 [facility] Lidocaine Hydrochloride 0.05 MG/MG Transdermal Patch [...] patch" No Longer Active 08/18/2015 [facility] predniSONE 10 mg, 1 tab, Route: PO, Drug form: TAB, Daily, Start date: 08/18/15 14:27:00 CDT, Duration: 2 doses or times, Stop date: 08/19/15 9:00:00 CDTNotes: (Same as: PredniSONE) Take with food. No Longer Active 08/18/2015 [facility] tramadol hydrochloride 50 MG Oral Tablet [Ultram] 50 mg, 1 tab, Route: PO, Drug form: TAB, Q6H, Dosing Weight 95, kg, PRN Pain Score 6- 10, Start date: 08/18/15 14:08:00 CDT, Duration: 30 day, Stop date: 09/17/15 14:07:00 CDTNotes: Not to exceed 400mg/day. (Same As: Ultram) No Longer Active 08/18/2015 [facility] Prednisone 1 MG Oral Tablet Dose: See Instructions, Route: SUB-Q, Drug form: TAB, Sliding Scale, PRN Blood Glucose Results, Start date: 08/18/15 14:08:00 CDT, Duration: 30 day, Stop date: 09/17/15 14:07:00 CDT Inactive 08/18/2015 [facility] Nitroglycerin 0.4 MG Sublingual Tablet 0.4 mg, 1 tab, Route: SL, Drug form: TAB, Q5Min, Dosing Weight 95, kg, PRN Chest Pain, Start date: 08/18/15 14:08:00 CDT, Duration: 30 day, Stop date: 09/17/15 14:07:00 CDTNotes: (Same as:Nitroquick, Nitrostat) "Do Not Crush" Sublingual tablet No Longer Active 08/18/2015 [facility] hydrocortisone topical 2.5% cream 1 appl, Route: TOP, BID, Drug form: CRM, PRN Itching, Start date: 08/18/15 14:08:00 CDT, Duration: 30 day, Stop date: 09/17/15 14:07:00 CDT No Longer Active 08/18/2015 [facility] Calcium Carbonate 500 MG Chewable Tablet 500 mg, 1 tab, Route: CHEW, Drug form: CHEWTAB, TID, Dosing Weight 95, kg, PRN Indigestion, Start date: 08/18/15 14:08:00 CDT, Duration: 30 day, Stop date: 09/17/15 14:07:00 CDTNotes: (Same As: César) Calcium Carbonate 500 ik=100 mg elemental calcium Dose= mg calcium carbonate ( mg elemental calcium) No Longer Active 08/18/2015 [facility] 200 ACTUAT Albuterol 0.09 MG/ACTUAT Metered Dose Inhaler 2 puff, Route: INHALATION, Drug Form: AERO/A, Dosing Weight 95, kg, RQID, PRN Wheezing, Start date: 08/18/15 14:08:00 CDT, Duration: 30 day, Stop date: 09/17/15 14:07:00 CDT No Longer Active 08/18/2015 [facility] Acetaminophen 1,000 mg, 2 tab, Route: PO, Drug form: TAB, Q6H, Dosing Weight 95, kg, PRN Pain Score 1-5, Start date: 08/18/15 14:07:00 CDT, Duration: 30 day, Stop date: 09/17/15 14:06:00 CDTNotes: Max acetaminophen 4000 mg/day (4 gm/day). (Same as: Tylenol Extra Strength) No Longer Active 08/18/2015 [facility] Sodium Chloride 0.9% IV 25 mL, Route: IV, Start date: 08/18/15 14:03:00 CDT, Duration: 30 day, Stop date: 09/17/15 14:02:00 CDT, PRN Line Flush No Longer Active 08/18/2015 [facility] Artificial Tears 1 drp, Route: Each Affected Eye, QID, Drug form: SOLN, PRN Dry Eyes, Start date: 08/18/15 13:56:00 CDT, Duration: 30 day, Stop date: 09/17/15 13:55:00 CDTNotes: (Same as: Aquasite) No Longer Active 08/18/2015 [facility] Diphenhydramine 25 mg, 0.5 mL, Route: IV, Drug form: INJ, Q6H, Dosing Weight 95, kg, PRN as needed for itching, Start date: 08/18/15 13:55:00 CDT, Duration: 30 day, Stop date: 09/17/15 13:54:00 CDTNotes: (Same as: Benadryl) No Longer Active 08/18/2015 [facility] Lorazepam 1 mg, 0.5 mL, Route: IV, Drug form: INJ, Q6H, Dosing Weight 95, kg, PRN as needed for anxiety, Start date: 08/18/15 13:55:00 CDT, Stop date: 09/17/15 13:54:00 CDTNotes: (Same as: Ativan) No Longer Active 08/18/2015 [facility] Ketoconazole 20 MG/ML Medicated Shampoo 1 appl, TOP, QSat, 0 Refill(s) Active 08/18/2015 [facility] Ketoconazole 20 MG/ML Medicated Shampoo 1 appl, TOP, QWed, 0 Refill(s) Active 08/18/2015 [facility] Saline Flush 0.9% 10 mL, Route: IVP, Drug Form: INJ, Dosing Weight 99.574, kg, PRN, PRN Line Flush, Start date: 08/18/15 8:30:00 CDT, Duration: 30 day, Stop date: 09/17/15 8:29:00 CDTNotes: (Same as: BD Posiflush) No Longer Active 08/18/2015 [facility] Ativan 1 mg, 1 tab, Route: PO, Drug form: TAB, ONCE, Dosing Weight 99.574, kg, Start date: 08/17/15 23:25:00 CDT, Stop date: 08/17/15 23:25:00 CDTNotes: (Same as: Ativan) Inactive 08/18/2015 [facility] tramadol hydrochloride 50 MG Oral Tablet [Ultram] 50 mg=1 tab, PO, Q6H, PRN Pain Score 6-10, # 1 tab, 0 Refill(s), other Active 08/18/2015 [facility] predniSONE 10 mg oral tablet See Instructions, Take 1 tab (10mg) PO daily for 2 days and then take 1/2 tab (5mg) PO daily for 3 days and stop. Take w/ food., # 1 tab, 0 Refill(s), other Active 08/18/2015 [facility] 200 ACTUAT Albuterol 0.09 MG/ACTUAT Metered Dose Inhaler 2 puff, INHALATION, QID, PRN as needed for wheezing, # 3 ea, 0 Refill(s), other Active 08/18/2015 [facility] thiamine 100 mg oral tablet 100 mg=1 tab, PO, Daily, 0 Refill(s) Active 08/18/2015 [facility] tramadol hydrochloride 50 MG Oral Tablet [Ultram] 50 mg=1 tab, PO, Q4H, PRN Pain Score 4-6, 0 Refill(s) Inactive 08/18/2015 [facility] POLYETHYLENE GLYCOL 3350 17 gm, PO, BID, 0 Refill(s) Active 08/18/2015 [facility] methocarbamol 500 mg oral tablet 500 mg=1 tab, PO, QID, PRN Muscle Spasms, per RACHEL Dennis at [facility], did not approve robaxin and not taking, 0 Refill(s) No Longer Active 08/18/2015 [facility] Lidocaine Hydrochloride 0.05 MG/MG Transdermal Patch [Lidoderm] 1 patch, TOP, Q24H, Remove after 12 hours, 0 Refill(s) Active 08/18/2015 [facility] hydrocortisone topical 2.5% cream 1 appl, TOP, BID, PRN Itching, 0 Refill(s) Active 08/18/2015 [facility] Folic Acid 1 MG Oral Tablet 1 mg=1 tab, PO, Daily, 0 Refill(s) Active 08/18/2015 [facility] Calcium Carbonate 500 MG Chewable Tablet 500 mg=1 tab, CHEW, TID, PRN Indigestion, 0 Refill(s) Active 08/18/2015 [facility] Flonase 0.05 mg/inh nasal spray 100 microgram=2 spray, Each Affected Nostril, Daily, 0 Refill(s) Active 08/18/2015 [facility] busPIRone 5 mg oral tablet 5 mg=1 tab, PO, TID, Investigating the current use. New rx from 08/17/15 but not seen on papaers provided by facility. RN Sonny will fax the list, 0 Refill(s) No Longer Active 08/18/2015 [facility] mirtazapine 30 mg oral tablet 30 mg=1 tab, PO, Bedtime, 0 Refill(s) Active 08/18/2015 [facility] warfarin 2.5 mg oral tablet 7.5 mg, PO, QPM, # 1 tab, 0 Refill(s), other No Longer Active 08/18/2015 [facility] acetaminophen 500 mg oral tablet 1,000 mg=2 tab, PO, Q6H, PRN Pain Score 1-5, 0 Refill(s) Active 08/18/2015 [facility] Warfarin 7.5 mg, 1 tab, Route: [...] Waste Black (Same As: Coumadin) Inactive 08/17/2015 [facility] Buspar 5 mg, 1 tab, Route: PO, Drug form: TAB, TID, Dosing Weight 99.574, kg, Start date: 08/17/15 9:00:00 CDT, Duration: 30 day, Stop date: 09/15/15 17:00:00 CDTNotes: (Same As: BuSpar) No Longer Active 08/17/2015 [facility] Warfarin 7.5 mg, 1 tab, Route: [...] Waste Black (Same As: Coumadin) Inactive 08/16/2015 [facility] Methocarbamol 500 mg, 1 tab, Route: PO, Drug form: TAB, QID, Dosing Weight 99.574, kg, PRN Muscle Spasms, Start date: 08/15/15 22:54:00 CDT, Duration: 30 day, Stop date: 09/14/15 22:53:00 CDTNotes: (Same as:Robaxin) No Longer Active 08/16/2015 [facility] Ativan 1 mg, 0.5 mL, Route: IVP, Drug form: INJ, ONCE, Dosing Weight 99.574, kg, Start date: 08/15/15 19:39:00 CDT, Stop date: 08/15/15 19:39:00 CDTNotes: (Same as: Ativan) Inactive 08/16/2015 [facility] Warfarin 6 mg, 1 tab, Route: [...] Waste Black (Same As: Coumadin) Inactive 08/15/2015 [facility] Clonazepam 0.25 mg, 0.5 tab, Route: PO, Drug form: TAB, ONCE, Dosing Weight 99.574, kg, Priority: NOW, Start date: 08/15/15 10:09:00 CDT, Stop date: 08/15/15 10:09:00 CDTNotes: (Same As: KlonoPIN) Inactive 08/15/2015 [facility] Warfarin 5 mg, 1 tab, Route: [...] Waste Black (Same As: Coumadin) Inactive 08/14/2015 [facility] remove patch 1 patch, Route: TOP, Bedtime, Drug form: ERFILM, Start date: 08/14/15 1:00:00 CDT, Duration: 30 day, Stop date: 09/12/15 1:00:00 CDTNotes: Remove patch 12 hours after application each day. No Longer Active 08/14/2015 [facility] Warfarin 5 mg, 1 tab, Route: [...] Waste Black (Same As: Coumadin) Inactive 08/13/2015 [facility] Miralax 17 gm, 1 pkt, Route: PO, Drug form: PWDR, BID, Dosing Weight 99.574, kg, Priority: NOW, Start date: 08/13/15 14:34:00 CDT, Duration: 30 day, Stop date: 09/12/15 9:00:00 CDTNotes: Dissolve in 8 oz of water or juice. (Same as: Miralax) No Longer Active 08/13/2015 [facility] Dulcolax Laxative 10 mg, 1 supp, Route: DC, Drug form: SUPP, ONCE, Dosing Weight 99.574, kg, Priority: NOW, Start date: 08/13/15 14:29:00 CDT, Stop date: 08/13/15 14:29:00 CDTNotes: (Same As: Dulcolax, Bisco- Lax) Inactive 08/13/2015 [facility] Lidocaine Hydrochloride 0.05 MG/MG Transdermal Patch [...] of new patch" No Longer Active 08/13/2015 [facility] Warfarin 6 mg, 1 tab, Route: [...] Waste Black (Same As: Coumadin) Inactive 08/12/2015 [facility] warfarin 3 mg oral tablet 6 mg=2 tab, PO, Daily, # 30 tab, 0 Refill(s) No Longer Active 08/12/2015 [facility] 200 ACTUAT Albuterol 0.09 MG/ACTUAT Metered Dose Inhaler 2 puff, INHALATION, QID, # 3 ea, 0 Refill(s) No Longer Active 08/12/2015 [facility] predniSONE 10 mg oral tablet 20 mg=2 tab, PO, Daily, for 3 days then 1 tab daily for 3 days then 0.5 tab for 4 days., # 11 tab, 0 Refill(s) Inactive 08/12/2015 [facility] carvedilol 3.125 mg oral tablet 3.125 mg=1 tab, PO, Q12H, # 60 tab, 0 Refill(s) Active 08/12/2015 [facility] tramadol hydrochloride 50 MG Oral Tablet 50 mg=1 tab, PO, Q6H, PRN Pain, PRN for pain q 6 hrs, # 30 tab, 0 Refill(s) Inactive 08/12/2015 [facility] Nitroglycerin 0.4 MG Sublingual Tablet 0.4 mg=1 tab, SL, Q5Min, PRN Chest Pain, Give up to 3 doses. Call 911 if pain persists., # 100 tab, 0 Refill(s) Active 08/12/2015 [facility] mirtazapine 15 mg oral tablet 15 mg=1 tab, PO, Bedtime, # 30 tab, 0 Refill(s) No Longer Active 08/12/2015 [facility] budesonide 180 mcg/inh inhalation powder 1 puff, INHALATION, BID, # 2 ea, 0 Refill(s) Active 08/12/2015 [facility] Warfarin 7.5 mg, 1 tab, Route: [...] Waste Black (Same As: Coumadin) Inactive 08/11/2015 [facility] Warfarin 6 mg, 1 tab, Route: [...] Waste Black (Same As: Coumadin) Inactive 08/10/2015 [facility] Warfarin 7.5 mg, 1 tab, Route: PO, Drug form: TAB, ONCE, Dosing Weight 99.574, kg, Priority: NOW, Start date: 08/09/15 18:12:00, Stop date: 08/09/15 18:12:00Notes: Nurse to ensure documentation of patient education per anticoagulation policy. Avoid large intake of vitamin-K containing foods diet. WASTE: F/P - P Waste Black; E - P Waste Black (Same As: Coumadin) Inactive 08/09/2015 [facility] Oxycodone Hydrochloride 5 MG Oral Tablet 5 mg, 1 tab, Route: PO, Drug form: TAB, Q6H, Dosing Weight 99.574, kg, PRN Pain Score 7-10, Start date: 08/08/15 18:10:00 CDT, Duration: 30 day, Stop date: 09/07/15 18:09:00 CDTNotes: (Same as: Roxicodone) No Longer Active 08/08/2015 [facility] Tums 500 mg, 1 tab, Route: CHEW, Drug form: CHEWTAB, TID, Dosing Weight 99.574, kg, PRN Indigestion, Start date: 08/08/15 18:07:00, Duration: 30 day, Stop date: 09/07/15 18:06:00Notes: (Same As: Tums) Calcium Carbonate 500 vz=323 mg elemental calcium Dose= mg calcium carbonate ( mg elemental calcium) No Longer Active 08/08/2015 [facility] Coumadin 7.5 mg, 1 tab, Route: [...] Waste Black (Same As: Coumadin) Inactive 08/08/2015 [facility] Tylenol 1,000 mg, 2 tab, Route: PO, Drug form: TAB, Q6H, Dosing Weight 99.574, kg, Start date: 08/07/15 18:00:00, Duration: 30 day, Stop date: 09/06/15 12:00:00Notes: Max acetaminophen 4000 mg/day (4 gm/day). (Same as: Tylenol Extra Strength) No Longer Active 08/07/2015 [facility] Coumadin 7.5 mg, 1 tab, Route: [...] Waste Black (Same As: Coumadin) Inactive 08/07/2015 [facility] tramadol hydrochloride 50 MG Oral Tablet [Ultram] 50 mg, 1 tab, Route: PO, Drug form: TAB, Q4H, Dosing Weight 99.574, kg, PRN Pain Score 4-6, Start date: 08/07/15 12:36:00, Duration: 30 day, Stop date: 09/06/15 12:35:00Notes: Not to exceed 400mg/day. (Same As: Ultram) No Longer Active 08/07/2015 [facility] naproxen sodium 550 mg, Route: PO, Drug form: TAB, BID, Dosing Weight 99.574, kg, PRN Pain Score 1-3, Start date: 08/07/15 12:27:00, Duration: 30 day, Stop date: 09/06/15 12:26:00 Inactive 08/07/2015 [facility] Acetaminophen 325 MG / Hydrocodone Bitartrate 5 MG Oral Tablet [Irwin 5/325] 1 tab, Route: PO, Drug Form: TAB, Dosing Weight 99.574, kg, Q4H, PRN Pain Score 1-3, Start date: 08/07/15 10:36:00, Duration: 30 day, Stop date: 09/06/15 10:35:00Notes: (Same as: Irwin 325/5) Do not exceed 4gm/day of acetaminophen. Inactive 08/07/2015 [facility] Coumadin 5 mg, 1 tab, Route: [...] Waste Black (Same As: Coumadin) Inactive 08/06/2015 [facility] Ativan 0.5 mg, 1 tab, Route: PO, Drug form: TAB, TID, Dosing Weight 99.574, kg, PRN Anxiety, Start date: 08/06/15 9:39:00, Duration: 30 day, Stop date: 09/05/15 9:38:00Notes: (Same as: Ativan) No Longer Active 08/06/2015 [facility] Ativan 0.5 mg, 0.25 mL, Route: IV, Drug form: INJ, ONCE, Dosing Weight 99.574, kg, Start date: 08/06/15 9:06:00, Stop date: 08/06/15 9:06:00Notes: (Same as: Ativan) Inactive 08/06/2015 [facility] Ativan 0.5 mg, 0.25 mL, Route: IV, Drug form: INJ, ONCE, Dosing Weight 99.574, kg, Start date: 08/06/15 8:49:00, Stop date: 08/06/15 8:49:00Notes: (Same as: Ativan) Inactive 08/06/2015 [facility] Coumadin 10 mg, 1 tab, Route: [...] E - P Waste Black Inactive 08/05/2015 [facility] Coreg 3.125 mg, 1 tab, Route: PO, Drug form: TAB, Q12H, Dosing Weight 99.574, kg, Priority: NOW, Start date: 08/04/15 20:48:00, Duration: 30 day, Stop date: 09/03/15 9:00:00Notes: Give with food. (Same As: Coreg) No Longer Active 08/05/2015 [facility] Warfarin 10 mg, 1 tab, Route: [...] E - P Waste Black Inactive 08/04/2015 [facility] Prednisone 10 mg, 1 tab, Route: PO, Drug form: TAB, Daily, Dosing Weight 99.574, kg, Start date: 08/04/15 9:00:00 CDT, Stop date: 09/02/15 9:00:00 CDTNotes: (Same as: PredniSONE) Take with food. No Longer Active 08/04/2015 [facility] Coumadin 7.5 mg, 1 tab, Route: [...] Waste Black (Same As: Coumadin) Inactive 08/03/2015 [facility] K-Dur 20 40 mEq, 2 tab, Route: PO, Drug form: ERTAB, ONCE, Start date: 08/03/15 14:00:00, Stop date: 08/03/15 14:00:00Notes: (Same as: K- Dur 20) "Do Not Crush" With food and full glass of water Inactive 08/03/2015 [facility] Flonase 0.05 mg/inh nasal spray 2 spray, Route: Each Affected Nostril, Drug Form: SPRY, Dosing Weight 99.574, kg, Daily, NOW, Start date: 08/02/15 18:04:00, Stop date: 09/01/15 9:00:00Notes: (Same as: Flonase) No Longer Active 08/02/2015 [facility] Budesonide 0.25 MG/ML Inhalant Solution [Pulmicort] 0.5 mg, 2 mL, Route: NEB, Drug form: SUSP, BID, Dosing Weight 99.574, kg, Priority: NOW, Start date: 08/02/15 17:58:00, Duration: 30 day, Stop date: 09/01/15 17:00:00Notes: (Same As: Pulmicort) No Longer Active 08/02/2015 [facility] Coumadin 7.5 mg, 1 tab, Route: [...] Waste Black (Same As: Coumadin) Inactive 08/02/2015 [facility] Albuterol 0.83 MG/ML Inhalant Solution 2.49 mg, 3 mL, Route: PO, Drug form: SOLN, RQ4H, Dosing Weight 99.574, kg, PRN Wheezing, Start date: 08/02/15 10:21:00, Duration: 30 day, Stop date: 09/01/15 10:20:00Notes: SEE RT DOCUMENTATION (Same as: Proventil) No Longer Active 08/02/2015 [facility] Coumadin 7.5 mg, 1 tab, Route: PO, Drug form: TAB, Q5PM, Start date: 08/01/15 17:00:00, Duration: 1 day, Stop date: 08/01/15 17:00:00Notes: Nurse to ensure documentation of patient education per anticoagulation policy. Avoid large intake of vitamin-K containing foods diet. WASTE: F/P - P Waste Black; E - P Waste Black (Same As: Coumadin) Inactive 08/01/2015 [facility] Warfarin 5 mg, Route: PO, Q5PM, Dosing Weight 99.574, kg, Start date: 08/01/15 17:00:00, Duration: 1 doses or times, Stop date: 08/01/15 17:00:00 Inactive 08/01/2015 [facility] Bumex 1 mg, 1 tab, Route: PO, Drug form: TAB, Daily, Dosing Weight 99.574, kg, Start date: 08/01/15 9:00:00, Duration: 30 day, Stop date: 08/30/15 9:00:00Notes: (Same As: Bumex) No Longer Active 08/01/2015 [facility] trazodone 50 mg oral tablet 25 mg, 0.5 tab, Route: PO, Drug form: TAB, ONCE, Dosing Weight 99.574, kg, Start date: 07/31/15 23:00:00, Stop date: 07/31/15 23:00:00Notes: (Same As: Desyrel) Inactive 08/01/2015 [facility] Trazodone 25 mg, 0.5 tab, Route: PO, Drug form: TAB, ONCE, Dosing Weight 99.574, kg, PRN Sleep, Start date: 07/31/15 21:49:00, Stop date: 07/31/15 21:49:00Notes: (Same As: Desyrel) Inactive 08/01/2015 [facility] Warfarin 5 mg, 1 tab, Route: [...] Waste Black (Same As: Coumadin) Inactive 07/31/2015 [facility] Lactulose 20 gm, 30 ml, Route: PO, Drug Form: SYRP, Dosing Weight 99.574, kg, ONCE, PRN Constipation, Start date: 07/31/15 9:55:00, Stop date: 08/30/15 9:54:00Notes: (Same as:Chronulac) Inactive 07/31/2015 [facility] azithromycin 250 mg oral tablet 250 mg, 1 tab, Route: PO, Drug form: TAB, Daily, Dosing Weight 99.574, kg, Start date: 07/31/15 9:00:00, Duration: 4 day, Stop date: 08/03/15 9:00:00Notes: Take 1 hour before or 2 hours after meals. (Same As: Zithromax) No Longer Active 07/31/2015 [facility] Lidocaine Hydrochloride 10 MG/ML Injectable Solution 100 mg, 10 mL, Route: IV, Drug Form: INJ, Dosing Weight 99.574, kg, ONCE, Start date: 07/30/15 20:34:00, Stop date: 07/30/15 20:34:00Notes: (Same as: Xylocaine) Inactive 07/31/2015 [facility] Lidocaine Hydrochloride 20 MG/ML Injectable Solution 200 mg, 10 mL, Route: SUB-Q, Drug Form: INJ, Dosing Weight 99.574, kg, ONCE, Start date: 07/30/15 18:53:00, Stop date: 07/30/15 18:53:00Notes: Syringe (Same as: Xylocaine) Inactive 07/30/2015 [facility] azithromycin 500 mg oral tablet 500 mg, 2 tab, Route: PO, Drug form: TAB, Daily, Dosing Weight 99.574, kg, Priority: STAT, Start date: 07/30/15 18:45:00, Duration: 1 doses or times, Stop date: 07/30/15 18:45:00Notes: Take 1 hour before or 2 hours after meals. (Same As: Zithromax) Inactive 07/30/2015 [facility] Albuterol 0.833 MG/ML / Ipratropium [place] 0.167 MG/ML Inhalant Solution 3 ml, Route: NEB, Drug Form: SOLN, Dosing Weight 99.574, kg, RQ4H, STAT, Start date: 07/30/15 18:45:00, Duration: 30 day, Stop date: 08/29/15 15:00:00Notes: (Same as: Duoneb) No Longer Active 07/30/2015 [facility] Prednisone 60 mg, 3 tab, Route: PO, Drug form: TAB, Daily, Dosing Weight 99.574, kg, Priority: STAT, Start date: 07/30/15 18:45:00, Duration: 30 day, Stop date: 08/29/15 9:00:00Notes: Take with food. No Longer Active 07/30/2015 [facility] Magnesium Sulfate 2 gm, 50 mL, Route: IVPB, Drug form: INJ, ONCE, Dosing Weight 99.574, kg, Start date: 07/30/15 15:19:00, Duration: 2 hr, Stop date: 07/30/15 15:19:00Notes: WASTE: F/P - Sink; E - Municipal Trash Bin Inactive 07/30/2015 [facility] Tylenol 650 mg, 2 tab, Route: PO, Drug form: TAB, ONCE, Dosing Weight 99.574, kg, Start date: 07/30/15 1:27:00, Stop date: 07/30/15 1:27:00Notes: Do not exceed 4 gm/day. (Same as: Tylenol) Inactive 07/30/2015 [facility] Magnesium Sulfate 2 gm, 50 mL, Route: IVPB, Drug form: INJ, ONCE, Dosing Weight 99.574, kg, Start date: 07/29/15 10:51:00, Duration: 2 hr, Stop date: 07/29/15 10:51:00Notes: WASTE: F/P - Sink; E - Municipal Trash Bin Inactive 07/29/2015 [facility] Bumex 1 mg, 4 mL, Route: IVP, Drug form: INJ, Daily, Dosing Weight 99.574, kg, Priority: NOW, Start date: 07/29/15 10:17:00, Duration: 30 day, Stop date: 08/28/15 9:00:00Notes: (Same As: Bumex) No Longer Active 07/29/2015 [facility] ketoconazole topical 2% shampoo 1 appl, Route: SHAMPOO, QSat, Drug form: SHMP, Start date: 07/29/15 9:00:00, Duration: 30 day, Stop date: 08/26/15 9:00:00Notes: Non-Formulary Drug (Same as:Nizoral Topical) No Longer Active 07/29/2015 [facility] normal saline 0.9% IV 1,000 mL 1,000 mL, Rate: 50 ml/hr, Infuse over: 20 hr, Route: IVPB, Dosing Weight 99.574 kg, Total Volume: 1,000, Start date: 07/27/15 22:04:00, Duration: 30 day, Stop date: 08/26/15 22:03:00 No Longer Active 07/28/2015 [facility] hydrocortisone topical 2.5% cream 1 appl, Route: TOP, BID, Drug form: CRM, PRN Itching, Start date: 07/26/15 14:53:00, Duration: 30 day, Stop date: 08/25/15 14:52:00 No Longer Active 07/26/2015 [facility] Ketoconazole 20 MG/ML Medicated Shampoo 1 appl, Route: TOP, QWed, Drug form: SHMP, Start date: 07/26/15 14:50:00, Duration: 30 day, Stop date: 08/23/15 15:00:00Notes: Non-Formulary Drug (Same as:Nizoral Topical) No Longer Active 07/26/2015 [facility] tiotropium 0.018 MG/ACTUAT Inhalant Powder [Spiriva] 18 microgram, 1 inhalation, Route: INHALATION, Drug form: CAP, Daily, Dosing Weight 99.574, kg, Start date: 07/26/15 9:00:00, Duration: 30 day, Stop date: 08/24/15 9:00:00Notes: (Same As: Spiriva) No Longer Active 07/26/2015 [facility] Clonidine Hydrochloride 0.1 MG Oral Tablet 0.1 mg, 1 tab, Route: PO, Drug form: TAB, TID, Dosing Weight 99.574, kg, Start date: 07/22/15 17:00:00, Duration: 30 day, Stop date: 08/21/15 13:00:00Notes: (Same As: Catapres) No Longer Active 07/22/2015 [facility] Remeron 30 mg, 2 tab, Route: PO, Drug form: TAB, Bedtime, Dosing Weight 99.574, kg, Start date: 07/21/15 21:00:00, Duration: 30 day, Stop date: 08/19/15 21:00:00Notes: (Same as:Remeron) Inactive 07/22/2015 [facility] Mirtazapine 30 mg, 1 tab, Route: PO, Drug form: TAB, Bedtime, Dosing Weight 99.574, kg, Start date: 07/21/15 21:00:00, Duration: 30 day, Stop date: 09/18/15 21:00:00Notes: (Same as:Remeron) No Longer Active 07/22/2015 [facility] Hydrocortisone-Aloe 0.5% topical cream 1 appl, Route: TOP, BID, Drug form: CRM, Start date: 07/21/15 9:00:00, Duration: 30 day, Stop date: 08/19/15 17:00:00 No Longer Active 07/21/2015 [facility] Aspirin 81 mg, 1 tab, Route: PO, Drug form: ECTAB, Daily, Dosing Weight 99.574, kg, Start date: 07/21/15 9:00:00, Duration: 30 day, Stop date: 09/18/15 9:00:00Notes: Do not crush or chew. (Same As: Ecotrin) No Longer Active 07/21/2015 [facility] Clonidine Hydrochloride 0.1 MG Oral Tablet 0.1 mg, 1 tab, Route: PO, Drug form: TAB, QID, Dosing Weight 99.574, kg, Start date: 07/21/15 9:00:00, Duration: 30 day, Stop date: 08/19/15 21:00:00Notes: (Same As: Catapres) No Longer Active 07/21/2015 [facility] Folic Acid 1 mg, 1 tab, Route: PO, Drug form: TAB, Daily, Dosing Weight 99.574, kg, Start date: 07/21/15 9:00:00, Duration: 30 day, Stop date: 09/18/15 9:00:00Notes: (Same as: Folvite) No Longer Active 07/21/2015 [facility] Thiamine 100 mg, 1 tab, Route: PO, Drug form: TAB, Daily, Dosing Weight 99.574, kg, Start date: 07/21/15 9:00:00, Duration: 30 day, Stop date: 09/18/15 9:00:00Notes: (Same As: Vitamin B1) No Longer Active 07/21/2015 [facility] heparin additive 25,000 unit [18 unit/kg/hr] + Premix Diluent Dextrose 5% 500 mL 500 mL, Rate: 31.1 ml/hr, Infuse over: 16.1 hr, Route: IV, Dosing Weight 86.39 kg, Total Volume: 500 mL, Start date: 07/21/15 3:49:00, Duration: 30 day, Stop date: 08/20/15 3:48:00 No Longer Active 07/21/2015 [facility] Heparin 40 unit/kg Bolus (Heparin Dosing Weight) Route: IVP, PRN, 3,500 unit, 3.5 mL, Drug form: INJ, PRN, Heparin Protocol, Start date: 07/21/15 3:49:00 Stop date: 08/20/15 3:48:00, 30 day No Longer Active 07/21/2015 [facility] Heparin 80 unit/kg Bolus (Heparin Dosing Weight) Route: IVP, PRN, 6,900 unit, 6.9 mL, Drug form: INJ, PRN, Heparin Protocol, Start date: 07/21/15 3:49:00 Stop date: 08/20/15 3:48:00, 30 day No Longer Active 07/21/2015 [facility] tramadol hydrochloride 50 MG Oral Tablet 50 mg, 1 tab, Route: PO, Drug form: TAB, Q6H, Dosing Weight 99.574, kg, PRN Pain Score 6-10, Start date: 07/21/15 3:33:00, Duration: 30 day, Stop date: 08/20/15 3:32:00Notes: Not to exceed 400mg/day. (Same As: Ultram) No Longer Active 07/21/2015 [facility] Artificial Tears 2 drp, Route: BOTH EYES, PRN, Drug form: SOLN, PRN as needed for dry eyes, Start date: 07/21/15 3:33:00 CDT, Duration: 30 day, Stop date: 09/19/15 3:32:00 CDT No Longer Active 07/21/2015 [facility] Nitroglycerin 0.4 MG Sublingual Tablet 0.4 mg, 1 tab, Route: SL, Drug form: TAB, Q5Min, Dosing Weight 99.574, kg, PRN Chest Pain, Start date: 07/21/15 3:33:00 CDT, Duration: 30 day, Stop date: 09/19/15 3:32:00 CDTNotes: (Same as:Nitroquick, Nitrostat) "Do Not Crush" Sublingual tablet No Longer Active 07/21/2015 [facility] Clonazepam 0.5 mg, 1 tab, Route: PO, Drug form: TAB, Q6H, Dosing Weight 99.574, kg, PRN Anxiety, Start date: 07/21/15 3:33:00, Duration: 30 day, Stop date: 08/20/15 3:32:00Notes: (Same As: KlonoPIN) No Longer Active 07/21/2015 [facility] Tylenol PO, Q6H, PRN Pain Score 1-5, 0 Refill(s) No Longer Active 07/21/2015 [facility] Hydrocortisone-Aloe 0.5% topical cream 1 appl, TOP, BID, # 30 gm, 0 Refill(s) No Longer Active 07/21/2015 [facility] Aspirin 81 mg, PO, Daily, 0 Refill(s) Active 07/21/2015 [facility] 24 HR Nicotine 0.875 MG/HR Transdermal Patch =1 patch, Transdermal, Daily, 0 Refill(s) No Longer Active 07/21/2015 [facility] Clonidine Hydrochloride 0.1 MG Oral Tablet 0.1 mg=1 tab, PO, QID, 0 Refill(s) No Longer Active 07/21/2015 [facility] clonazePAM 0.5 mg oral tablet 0.5 mg=1 tab, PO, PRN, Prn anxiety q 6 hrs, 0 Refill(s) No Longer Active 07/21/2015 [facility] mirtazapine 15 mg oral tablet 15 mg=1 tab, PO, Bedtime, # 30 tab, 0 Refill(s) No Longer Active 07/21/2015 [facility] Alprazolam 0.25 MG Oral Tablet 0.25 mg=1 tab, PO, BID, PRN anxiety, stress, # 20 tab, 0 Refill(s) No Longer Active 07/21/2015 [facility] tramadol hydrochloride 50 MG Oral Tablet 50 mg=1 tab, PO, Q6H, PRN Pain, PRN for pain q 6 hrs, 0 Refill(s) No Longer Active 07/21/2015 [facility] Nitroglycerin 0.4 MG Sublingual Tablet 0.4 mg=1 tab, SL, Q5Min, PRN Chest Pain, Give up to 3 doses. Call 911 if pain persists., # 25 tab, 3 Refill(s) No Longer Active 07/21/2015 [facility] Artificial Tears BOTH EYES, PRN, 1 drop each eye q 4 hours, 0 Refill(s) No Longer Active 07/21/2015 [facility] Allergies, Adverse Reactions, Alerts No Known Medication Allergies Immunizations No Data Provided for This Section Results Order Name Results Value Reference Range Date Interpretation Comments Source HEMATOLOGY PT 14.0 12.0 - 14.7 11/29/2015 [facility] HEMATOLOGY INR 1.05 0.85 - 1.17 11/29/2015 [facility] LIPIDS CHD Risk 3.28 4.00 - 7.30 11/29/2015 [facility] LIPIDS Chol 210 <=199 mg/dL 11/29/2015 [facility] LIPIDS Trig 69 <=149 mg/dL 11/29/2015 [facility] LIPIDS HDL 64 >=61 mg/dL 11/29/2015 [facility] LIPIDS VLDL 14 11/29/2015 [facility] LIPIDS LDL (Calculated) 132 <=99 mg/dL 11/29/2015 [facility] CARDIAC ENZYMES Troponin-I <0.02 0.00 - 0.40 11/29/2015 [facility] CARDIAC ENZYMES Total CK 48 12 - 191 11/29/2015 [facility] CARDIAC ENZYMES Troponin-I <0.02 0.00 - 0.40 2015 [facility] CARDIAC ENZYMES Total CK 50 12 - 191 2015 [facility] CARDIAC ENZYMES CK MB Index 4.7 0.0 - 2.5 2015 [facility] CARDIAC ENZYMES BNP 92 <=100 pg/mL 2015 [facility] CARDIAC ENZYMES Troponin-I <0.02 0.00 - 0.40 2015 [facility] CARDIAC ENZYMES CK MB 2.7 0.5 - 3.6 2015 [facility] CARDIAC ENZYMES Total CK 57 12 - 191 2015 [facility] CHEM PANEL eGFR 96 2015 Result Comment: [...] Alk Phos 64 39 - 136 2015 [facility] CHEM PANEL Bili Total 0.3 0.2 - 1.3 2015 [facility] CHEM PANEL CO2 29 24 - 32 2015 [facility] CHEM PANEL Chloride Lvl 106 95 - 109 2015 [facility] CHEM PANEL Potassium Lvl 4.0 3.5 - 5.1 2015 [facility] CHEM PANEL A/G Ratio 1.1 0.7 - 1.6 2015 [facility] CHEM PANEL Globulin 3.5 2.0 - 4.0 2015 [facility] CHEM PANEL B/C Ratio 13 6 - 25 2015 [facility] CHEM PANEL Sodium Lvl 141 135 - 145 2015 [facility] CHEM PANEL BUN 11 7 - 22 2015 [facility] CHEM PANEL Glucose Lvl 86 70 - 99 2015 [facility] CHEM PANEL Creatinine Lvl 0.86 0.50 - 1.40 2015 [facility] HEMATOLOGY Segs-Bands # 7.8 1.5 - 8.1 2015 [facility] HEMATOLOGY Basophils 0.9 0.0 - 1.0 2015 [facility] HEMATOLOGY Basophils # 0.1 0.0 - 0.2 2015 [facility] HEMATOLOGY Segs 67.3 45.0 - 75.0 2015 [facility] HEMATOLOGY Monocytes # 0.7 0.0 - 0.8 2015 [facility] HEMATOLOGY Lymphocytes # 3.0 1.0 - 5.5 2015 [facility] HEMATOLOGY Eosinophils 0.2 0.0 - 4.0 2015 [facility] HEMATOLOGY Lymphocytes 25.5 20.0 - 40.0 2015 [facility] Monocytes 6.1 2.0 - 12.0 2015 [facility] RBC 5.08 4.70 - 6.10 2015 [facility] WBC 11.6 3.7 - 10.4 2015 [facility] MPV 7.4 7.4 - 10.4 2015 [facility] Hct 43.6 42.0 - 54.0 2015 [facility] Hgb 14.0 14.0 - 18.0 2015 [facility] MCV 85.7 80.0 - 94.0 2015 [facility] MCH 27.5 27.0 - 31.0 2015 [facility] RDW 15.0 11.5 - 14.5 2015 [facility] Platelet 244 133 - 450 2015 [facility] MCHC 32.1 32.0 - 36.0 2015 [facility] ELECTROLYTES AGAP 14.0 10.0 - 20.0 08/22/2015 [facility] ELECTROLYTES Calcium Lvl 8.3 8.5 - 10.5 08/22/2015 [facility] ELECTROLYTES CO2 26 24 - 32 08/22/2015 [facility] ELECTROLYTES eGFR 104 08/22/2015 Result Comment: [...] multiplied by the estimated BMI. [facility] ELECTROLYTES Chloride Lvl 107 95 - 109 08/22/2015 [facility] ELECTROLYTES Potassium Lvl 4.0 3.5 - 5.1 08/22/2015 [facility] ELECTROLYTES Glucose Lvl 84 70 - 99 08/22/2015 [facility] ELECTROLYTES Sodium Lvl 143 135 - 145 08/22/2015 [facility] ELECTROLYTES BUN 11 7 - 22 08/22/2015 [facility] ELECTROLYTES Creatinine Lvl 0.71 0.50 - 1.40 08/22/2015 [facility] HEMATOLOGY Basophils # 0.0 0.0 - 0.2 08/22/2015 [facility] HEMATOLOGY Eosinophils 1.2 0.0 - 4.0 08/22/2015 [facility] HEMATOLOGY Monocytes 9.5 2.0 - 12.0 08/22/2015 [facility] HEMATOLOGY Monocytes # 0.6 0.0 - 0.8 08/22/2015 [facility] HEMATOLOGY Segs 59.2 45.0 - 75.0 08/22/2015 [facility] HEMATOLOGY Lymphocytes 29.8 20.0 - 40.0 08/22/2015 [facility] HEMATOLOGY Basophils 0.3 0.0 - 1.0 08/22/2015 [facility] HEMATOLOGY Segs-Bands # 3.8 1.5 - 8.1 08/22/2015 [facility] HEMATOLOGY Eosinophils # 0.1 0.0 - 0.5 08/22/2015 [facility] HEMATOLOGY Lymphocytes # 1.9 1.0 - 5.5 08/22/2015 [facility] HEMATOLOGY RBC 4.51 4.70 - 6.10 08/22/2015 [facility] HEMATOLOGY WBC 6.5 3.7 - 10.4 08/22/2015 [facility] HEMATOLOGY MCV 87.9 80.0 - 94.0 08/22/2015 [facility] HEMATOLOGY Hct 39.6 42.0 - 54.0 08/22/2015 [facility] HEMATOLOGY Hgb 12.7 14.0 - 18.0 08/22/2015 [facility] HEMATOLOGY MCHC 32.1 32.0 - 36.0 08/22/2015 [facility] HEMATOLOGY MCH 28.2 27.0 - 31.0 08/22/2015 [facility] HEMATOLOGY MPV 8.1 7.4 - 10.4 08/22/2015 [facility] HEMATOLOGY Platelet 161 133 - 450 08/22/2015 [facility] HEMATOLOGY RDW 16.3 11.5 - 14.5 08/22/2015 [facility] CARDIAC ENZYMES Troponin-I <0.02 0.00 - 0.40 08/19/2015 [facility] CARDIAC ENZYMES Total CK 54 12 - 191 08/19/2015 [facility] CARDIAC ENZYMES Troponin-I <0.02 0.00 - 0.40 08/18/2015 [facility] CARDIAC ENZYMES Total CK 30 12 - 191 08/18/2015 [facility] CARDIAC ENZYMES Troponin-I <0.02 0.00 - 0.40 08/18/2015 [facility] HEMATOLOGY PT 24.6 12.0 - 14.7 08/18/2015 [facility] HEMATOLOGY INR 2.18 0.85 - 1.17 08/18/2015 [facility] BACTERIAL - SEROLOGY MRSA by PCR Negative (08/18/15 1:44 PM) 08/18/2015 [facility] CARDIAC ENZYMES CK MB Index 3.2 0.0 - 2.5 08/18/2015 [facility] CARDIAC ENZYMES CK MB 2.0 0.5 - 3.6 08/18/2015 [facility] CARDIAC ENZYMES Total CK 62 12 - 191 08/18/2015 [facility] CHEM PANEL Lipase Lvl 114 73 - 393 08/18/2015 [facility] CHEM PANEL eGFR 97 08/18/2015 Result [...] multiplied by the estimated BMI. [facility] CHEM PANEL AGAP 14.6 10.0 - 20.0 08/18/2015 [facility] CHEM PANEL CO2 23 24 - 32 08/18/2015 [facility] CHEM PANEL Calcium Lvl 8.7 8.5 - 10.5 08/18/2015 [facility] CHEM PANEL Globulin 3.6 2.0 - 4.0 08/18/2015 [facility] CHEM PANEL Total Protein 6.7 6.4 - 8.4 08/18/2015 [facility] CHEM PANEL Albumin Lvl 3.1 3.5 - 5.0 08/18/2015 [facility] CHEM PANEL AST 21 0 - 37 08/18/2015 [facility] CHEM PANEL ALT 36 0 - 65 08/18/2015 [facility] CHEM PANEL B/C Ratio 25 6 - 25 08/18/2015 [facility] CHEM PANEL Bili Total 0.4 0.2 - 1.3 08/18/2015 [facility] CHEM PANEL A/G Ratio 0.9 0.7 - 1.6 08/18/2015 [facility] CHEM PANEL Alk Phos 64 39 - 136 08/18/2015 [facility] CHEM PANEL Glucose Lvl 85 70 - 99 08/18/2015 [facility] CHEM PANEL BUN 21 7 - 22 08/18/2015 [facility] CHEM PANEL Creatinine Lvl 0.83 0.50 - 1.40 08/18/2015 [facility] CHEM PANEL Potassium Lvl 4.6 3.5 - 5.1 08/18/2015 [facility] CHEM PANEL Sodium Lvl 140 135 - 145 08/18/2015 [facility] CHEM PANEL Chloride Lvl 107 95 - 109 08/18/2015 [facility] HEMATOLOGY Basophils # 0.1 0.0 - 0.2 08/18/2015 [facility] HEMATOLOGY Eosinophils # 0.1 0.0 - 0.5 08/18/2015 [facility] HEMATOLOGY Monocytes # 1.0 0.0 - 0.8 08/18/2015 [facility] HEMATOLOGY Lymphocytes # 2.4 1.0 - 5.5 08/18/2015 [facility] HEMATOLOGY Eosinophils 0.5 0.0 - 4.0 08/18/2015 [facility] HEMATOLOGY Monocytes 7.3 2.0 - 12.0 08/18/2015 [facility] HEMATOLOGY Segs-Bands # 10.0 1.5 - 8.1 08/18/2015 [facility] HEMATOLOGY Basophils 0.4 0.0 - 1.0 08/18/2015 [facility] HEMATOLOGY Lymphocytes 18.0 20.0 - 40.0 08/18/2015 [facility] HEMATOLOGY Segs 73.8 45.0 - 75.0 08/18/2015 [facility] HEMATOLOGY Plt Morph Normal (08/18/15 9:22 AM) 08/18/2015 [facility] HEMATOLOGY RBC Morph Normal (08/18/15 9:22 AM) 08/18/2015 [facility] HEMATOLOGY Platelet 207 133 - 450 08/18/2015 Result Comment: Reviewed. [facility] HEMATOLOGY RBC 4.79 4.70 - 6.10 08/18/2015 [facility] HEMATOLOGY WBC 13.5 3.7 - 10.4 08/18/2015 [facility] HEMATOLOGY Hgb 13.7 14.0 - 18.0 08/18/2015 [facility] HEMATOLOGY Hct 42.1 42.0 - 54.0 08/18/2015 [facility] HEMATOLOGY RDW 16.1 11.5 - 14.5 08/18/2015 [facility] HEMATOLOGY MPV 7.7 7.4 - 10.4 08/18/2015 [facility] HEMATOLOGY MCH 28.5 27.0 - 31.0 08/18/2015 [facility] HEMATOLOGY MCV 87.9 80.0 - 94.0 08/18/2015 [facility] HEMATOLOGY MCHC 32.4 32.0 - 36.0 08/18/2015 [facility] ELECTROLYTES AGAP 11.7 10.0 - 20.0 08/17/2015 [facility] ELECTROLYTES eGFR 112 08/17/2015 Result Comment: [...] should be multiplied by the estimated BMI. [facility] ELECTROLYTES Calcium Lvl 7.1 8.5 - 10.5 08/17/2015 [facility] ELECTROLYTES Creatinine Lvl 0.58 0.50 - 1.40 08/17/2015 [facility] ELECTROLYTES Sodium Lvl 146 135 - 145 08/17/2015 [facility] ELECTROLYTES BUN 13 7 - 22 08/17/2015 [facility] ELECTROLYTES Glucose Lvl 78 70 - 99 08/17/2015 [facility] ELECTROLYTES Chloride Lvl 115 95 - 109 08/17/2015 [facility] ELECTROLYTES CO2 23 24 - 32 08/17/2015 [facility] ELECTROLYTES Potassium Lvl 3.7 3.5 - 5.1 08/17/2015 [facility] HEMATOLOGY MCH 28.8 27.0 - 31.0 08/17/2015 [facility] HEMATOLOGY Hct 36.5 42.0 - 54.0 08/17/2015 [facility] HEMATOLOGY MCV 88.6 80.0 - 94.0 08/17/2015 [facility] HEMATOLOGY Hgb 11.8 14.0 - 18.0 08/17/2015 [facility] HEMATOLOGY Platelet 149 133 - 450 08/17/2015 [facility] HEMATOLOGY MCHC 32.5 32.0 - 36.0 08/17/2015 [facility] HEMATOLOGY RDW 15.4 11.5 - 14.5 08/17/2015 [facility] HEMATOLOGY MPV 7.2 7.4 - 10.4 08/17/2015 [facility] HEMATOLOGY WBC 8.5 3.7 - 10.4 08/17/2015 [facility] HEMATOLOGY RBC 4.12 4.70 - 6.10 08/17/2015 [facility] HEMATOLOGY Monocytes 7.1 2.0 - 12.0 08/17/2015 [facility] HEMATOLOGY Basophils 0.4 0.0 - 1.0 08/17/2015 [facility] HEMATOLOGY Segs-Bands # 5.8 1.5 - 8.1 08/17/2015 [facility] HEMATOLOGY Eosinophils 0.5 0.0 - 4.0 08/17/2015 [facility] HEMATOLOGY Lymphocytes 23.4 20.0 - 40.0 08/17/2015 [facility] HEMATOLOGY Segs 68.6 45.0 - 75.0 08/17/2015 [facility] HEMATOLOGY Lymphocytes # 2.0 1.0 - 5.5 08/17/2015 [facility] HEMATOLOGY Monocytes # 0.6 0.0 - 0.8 08/17/2015 [facility] HEMATOLOGY INR 2.09 0.85 - 1.17 08/17/2015 [facility] HEMATOLOGY PT 23.8 12.0 - 14.7 08/17/2015 [facility] HEMATOLOGY INR 1.84 0.85 - 1.17 08/16/2015 [facility] HEMATOLOGY PT 21.6 12.0 - 14.7 08/16/2015 [facility] HEMATOLOGY INR 2.24 0.85 - 1.17 08/15/2015 [facility] HEMATOLOGY PT 25.1 12.0 - 14.7 08/15/2015 [facility] ELECTROLYTES Potassium Lvl 4.2 3.5 - 5.1 08/14/2015 [facility] ELECTROLYTES Chloride Lvl 107 95 - 109 08/14/2015 [facility] ELECTROLYTES Creatinine Lvl 0.93 0.50 - 1.40 08/14/2015 [facility] ELECTROLYTES Sodium Lvl 140 135 - 145 08/14/2015 [facility] ELECTROLYTES BUN 27 7 - 22 08/14/2015 [facility] ELECTROLYTES Calcium Lvl 8.5 8.5 - 10.5 08/14/2015 [facility] ELECTROLYTES CO2 26 24 - 32 08/14/2015 [facility] ELECTROLYTES eGFR 91 08/14/2015 Result Comment: [...] should be multiplied by the estimated BMI. [facility] ELECTROLYTES Glucose Lvl 84 70 - 99 08/14/2015 [facility] ELECTROLYTES AGAP 11.2 10.0 - 20.0 08/14/2015 [facility] CHEM PANEL Magnesium Lvl 2.2 1.8 - 2.4 08/10/2015 [facility] CHEM PANEL eGFR 102 08/10/2015 Result [...] should be multiplied by the estimated BMI. [facility] CHEM PANEL Calcium Lvl 8.8 8.5 - 10.5 08/10/2015 [facility] CHEM PANEL CO2 28 24 - 32 08/10/2015 [facility] CHEM PANEL Chloride Lvl 106 95 - 109 08/10/2015 [facility] CHEM PANEL Potassium Lvl 4.2 3.5 - 5.1 08/10/2015 [facility] CHEM PANEL Sodium Lvl 140 135 - 145 08/10/2015 [facility] CHEM PANEL BUN 20 7 - 22 08/10/2015 [facility] CHEM PANEL Creatinine Lvl 0.74 0.50 - 1.40 08/10/2015 [facility] CHEM PANEL Glucose Lvl 78 70 - 99 08/10/2015 [facility] CHEM PANEL AGAP 10.2 10.0 - 20.0 08/10/2015 [facility] CHEM PANEL Phosphorus 3.7 2.5 - 4.5 08/10/2015 [facility] HEMATOLOGY RBC Morph Normal (08/10/15 5:29 AM) 08/10/2015 [facility] HEMATOLOGY Plt Morph Normal (08/10/15 5:29 AM) 08/10/2015 [facility] HEMATOLOGY Atypical Lymphs 0.0 <=0.0 % 08/10/2015 [facility] HEMATOLOGY Myelocytes 1.0 <=0.0 % 08/10/2015 [facility] HEMATOLOGY Metamyelocytes 1.0 0.0 - 1.0 08/10/2015 [facility] HEMATOLOGY Lymphocytes 24.0 20.0 - 40.0 08/10/2015 [facility] HEMATOLOGY Monocytes 6.0 2.0 - 12.0 08/10/2015 [facility] HEMATOLOGY Segs-Bands # 8.4 1.5 - 8.1 08/10/2015 [facility] HEMATOLOGY Bands 1.0 0.0 - 11.0 08/10/2015 [facility] HEMATOLOGY Monocytes # 0.7 0.0 - 0.8 08/10/2015 [facility] HEMATOLOGY Lymphocytes # 3.0 1.0 - 5.5 08/10/2015 [facility] HEMATOLOGY Segs 67.0 45.0 - 75.0 08/10/2015 [facility] HEMATOLOGY WBC 12.3 3.7 - 10.4 08/10/2015 [facility] HEMATOLOGY RBC 4.82 4.70 - 6.10 08/10/2015 [facility] HEMATOLOGY Hgb 13.6 14.0 - 18.0 08/10/2015 [facility] HEMATOLOGY MCH 28.3 27.0 - 31.0 08/10/2015 [facility] HEMATOLOGY Platelet 227 133 - 450 08/10/2015 [facility] HEMATOLOGY MCHC 32.4 32.0 - 36.0 08/10/2015 [facility] HEMATOLOGY RDW 15.3 11.5 - 14.5 08/10/2015 [facility] HEMATOLOGY MCV 87.2 80.0 - 94.0 08/10/2015 [facility] HEMATOLOGY Hct 42.0 42.0 - 54.0 08/10/2015 [facility] HEMATOLOGY MPV 7.2 7.4 - 10.4 08/10/2015 [facility] CHEM PANEL Magnesium Lvl 2.1 1.8 - 2.4 08/09/2015 [facility] CHEM PANEL Phosphorus 3.9 2.5 - 4.5 08/09/2015 [facility] HEMATOLOGY Myelocytes 1.0 <=0.0 % 08/09/2015 [facility] HEMATOLOGY RBC Morph Normal (08/09/15 4:34 AM) 08/09/2015 [facility] HEMATOLOGY Atypical Lymphs 1.0 <=0.0 % 08/09/2015 [facility] HEMATOLOGY Monocytes # 0.4 0.0 - 0.8 08/09/2015 [facility] HEMATOLOGY Segs-Bands # 7.7 1.5 - 8.1 08/09/2015 [facility] HEMATOLOGY Lymphocytes # 2.8 1.0 - 5.5 08/09/2015 [facility] HEMATOLOGY Plt Morph Normal (08/09/15 4:34 AM) 08/09/2015 [facility] HEMATOLOGY Lymphocytes 24.0 20.0 - 40.0 08/09/2015 [facility] HEMATOLOGY Monocytes 4.0 2.0 - 12.0 08/09/2015 [facility] HEMATOLOGY Segs 65.0 45.0 - 75.0 08/09/2015 [facility] HEMATOLOGY Bands 4.0 0.0 - 11.0 08/09/2015 [facility] HEMATOLOGY Metamyelocytes 1.0 0.0 - 1.0 08/09/2015 [facility] HEMATOLOGY MCV 88.1 80.0 - 94.0 08/09/2015 [facility] HEMATOLOGY MCHC 32.6 32.0 - 36.0 08/09/2015 [facility] HEMATOLOGY MCH 28.7 27.0 - 31.0 08/09/2015 [facility] HEMATOLOGY Hct 42.6 42.0 - 54.0 08/09/2015 [facility] HEMATOLOGY Hgb 13.9 14.0 - 18.0 08/09/2015 [facility] HEMATOLOGY MPV 7.4 7.4 - 10.4 08/09/2015 [facility] HEMATOLOGY RDW 15.4 11.5 - 14.5 08/09/2015 [facility] HEMATOLOGY Platelet 205 133 - 450 08/09/2015 [facility] HEMATOLOGY RBC 4.83 4.70 - 6.10 08/09/2015 [facility] HEMATOLOGY WBC 11.1 3.7 - 10.4 08/09/2015 [facility] CHEM PANEL Magnesium Lvl 2.2 1.8 - 2.4 08/08/2015 [facility] CHEM PANEL Phosphorus 4.1 2.5 - 4.5 08/08/2015 [facility] HEMATOLOGY Eosinophils # 0.2 0.0 - 0.5 08/08/2015 [facility] HEMATOLOGY Basophils # 0.1 0.0 - 0.2 08/08/2015 [facility] HEMATOLOGY Plt Morph Normal (08/08/15 3:55 AM) 08/08/2015 [facility] HEMATOLOGY RBC Morph Normal (08/08/15 3:55 AM) 08/08/2015 [facility] HEMATOLOGY Basophils 0.5 0.0 - 1.0 08/08/2015 [facility] HEMATOLOGY Eosinophils 1.2 0.0 - 4.0 08/08/2015 [facility] HEMATOLOGY Basophils 0.7 0.0 - 1.0 08/07/2015 [facility] HEMATOLOGY Eosinophils 0.4 0.0 - 4.0 08/07/2015 [facility] HEMATOLOGY Basophils # 0.1 0.0 - 0.2 08/07/2015 [facility] HEMATOLOGY PTT 69.5 22.9 - 35.8 08/06/2015 [facility] HEMATOLOGY Toxic Gran See Note 1 (08/06/15 3:33 AM) None Seen 08/06/2015 Result Comment: Slight [facility] HEMATOLOGY Atypical Lymphs 0.0 <=0.0 % 08/06/2015 [facility] HEMATOLOGY Bands 1.0 0.0 - 11.0 08/06/2015 [facility] HEMATOLOGY PTT 64.0 22.9 - 35.8 08/05/2015 [facility] HEMATOLOGY Toxic Gran slight 08/05/2015 [facility] HEMATOLOGY PTT 68.9 22.9 - 35.8 08/05/2015 [facility] HEMATOLOGY Anisocyte 1+ *ABN* (07/31/15 10:41 AM) None Seen 07/31/2015 [facility] HEMATOLOGY Basophils # 0.2 0.0 - 0.2 07/31/2015 [facility] CHEM PANEL Lactic Acid Lvl 1.0 0.5 - 2.2 07/30/2015 [facility] HEMATOLOGY POC Activated Clotting Time 206 07/28/2015 [facility] HEMATOLOGY Eosinophils # 0.1 0.0 - 0.5 07/28/2015 [facility] HEMATOLOGY Eosinophils # 0.1 0.0 - 0.5 07/27/2015 [facility] LIPIDS HDL 45 >=61 mg/dL 07/25/2015 [facility] LIPIDS Chol 162 <=199 mg/dL 07/25/2015 [facility] LIPIDS Trig 74 <=149 mg/dL 07/25/2015 [facility] LIPIDS VLDL 15 07/25/2015 [facility] LIPIDS LDL (Calculated) 102 <=99 mg/dL 07/25/2015 [facility] LIPIDS CHD Risk 3.60 4.00 - 7.30 07/25/2015 [facility] CARDIAC ENZYMES Troponin-I 0.09 0.00 - 0.40 07/21/2015 [facility] CARDIAC ENZYMES Troponin-T 0.035 0.000 - 0.100 07/21/2015 [facility] CARDIAC ENZYMES Total CK 36 12 - 191 07/21/2015 [facility] CARDIAC ENZYMES Troponin-I 0.10 0.00 - 0.40 07/21/2015 [facility] CARDIAC ENZYMES Total CK 32 12 - 191 07/21/2015 [facility] CARDIAC ENZYMES BNP 158 <=100 pg/mL 07/21/2015 [facility] CHEM PANEL A/G Ratio 0.9 0.7 - 1.6 07/21/2015 [facility] CHEM PANEL Bili Total 0.8 0.2 - 1.3 07/21/2015 [facility] CHEM PANEL Alk Phos 59 39 - 136 07/21/2015 [facility] CHEM PANEL Globulin 3.3 2.0 - 4.0 07/21/2015 [facility] CHEM PANEL B/C Ratio 14 6 - 25 07/21/2015 [facility] CHEM PANEL AST 6 0 - 37 07/21/2015 [facility] CHEM PANEL ALT 15 0 - 65 07/21/2015 [facility] CHEM PANEL Albumin Lvl 2.9 3.5 - 5.0 07/21/2015 [facility] CHEM PANEL Total Protein 6.2 6.4 - 8.4 07/21/2015 [facility] CHEM PANEL Amylase Lvl 46 25 - 115 07/21/2015 [facility] CHEM PANEL Lipase Lvl 85 73 - 393 07/21/2015 [facility] SPECIAL CHEMISTRY Hgb A1C 5.4 <=5.6 % 07/21/2015 [facility] Pathology Reports No Data Provided for This Section Diagnostic Reports Report Value Date Source Chest CTA Patient Name: ALETHA LOWERY : 1955; Age: 59 years Male MR: [id number] Study: Chest CTA 2015 3:09 PM CDT [...] 2015 6:09 PM CDT. SL: ANGELY 2015 [facility] 1view DX Study: Chest 1view DX Clinical Indication: Dyspnea Comparison: Chest x-ray from 08/21/2015 FINDINGS: Left sided dual-chamber pacemaker is stable. Cardiac silhouette is normal in size. Small right pleural effusion is seen. There is no pneumothorax. The osseous structures are unremarkable. IMPRESSION: Small right pleural effusion SL: [id number] 2015 [facility] 1view DX Patient Name: ALETHA LOWERY. : 1955; Age: 59 years y/o; Male. MR: [id number]. Ordering Physician: Jocy Bailon MD. PORTABLE CHEST [...] is unremarkable. SL: [id number] 08/21/2015 [facility] Knee 1-2 Views Bilateral DX Two-view [...] effusion suspected. SL: [id number] 08/20/2015 [facility] Brain wo contrast CT Patient Name: ALETHA LOWERY : 1955; Age: 59 years; Gender: Male MR: [id number] Ordering Physician: Piter Leslie MD PROCEDURE: CT head without contrast INDICATION: Pain Post Trauma. Fall with trauma to the frontal area. Patient is on blood thinners. TECHNIQUE: CT images were obtained from the foramen magnum to the vertex without the use of intravenous contrast on a multidetector CT. Total CT radiation dose: FPB=5416 mGy-cm COMPARISON: None. FINDINGS: No evidence for [...] 3. Possible mild right maxillary sinusitis. SL: [id number] 08/20/2015 [facility] Chest 1view DX CHEST RADIOGRAPH ONE [...] and/or thickening. 3. Enlarged cardiac silhouette. SL: [id number] 08/18/2015 [facility] Chest 1view DX EXAM: XR CHEST 1 VIEW DATE: 08/06/2015 8:49 AM CDT INDICATION: Coughing. FINDINGS: Comparison is made to August 01. The cardiomediastinal silhouette, life-support lines and tubes are stable. The lungs are clear of consolidation. There are calcified granulomas in the right lower lobe. No pleural effusions are identified. IMPRESSION: No acute abnormality. 08/06/2015 [facility] Chest 1view DX EXAM: XR CHEST 1 VIEW DATE: 08/02/2015 10:20 AM CDT INDICATION: Abnormal chest sounds COMPARISON: Chest x-ray from 07/30/2015 TECHNIQUE: AP chest FINDINGS: Stable right arm PICC. Stable left implantable cardiac defibrillator Stable cardiomediastinal silhouette. Small right pleural effusion versus pleural thickening. No new pleural or parenchymal based abnormalities. IMPRESSION: No significant change. 08/02/2015 [facility] Chest 1view DX EXAM: XR CHEST 1 VIEW DATE: 07/30/2015 7:41 PM CDT INDICATION: Dyspnea COMPARISON: Yesterday TECHNIQUE: AP chest FINDINGS: Stable right arm PICC. Stable left implantable cardiac defibrillator Stable cardiomediastinal silhouette. Small right pleural effusion versus pleural thickening. No new pleural or parenchymal based abnormalities. IMPRESSION: No significant changes compared to yesterday. 07/30/2015 [facility] HVI VAS Venous Lower Ext Bilat [...] no evidence of deep venous thrombosis. 07/29/2015 [facility] Chest 1view DX EXAM: XR CHEST 1 VIEW DATE: 07/29/2015 9:47 AM CDT INDICATION: Shortness of Breath COMPARISON: 07/21/2015 TECHNIQUE: AP chest FINDINGS: Stable right arm PICC. Stable left implantable cardiac defibrillator Stable cardiomediastinal silhouette. Small right pleural effusion. No new pleural or parenchymal based abnormalities. IMPRESSION: No significant changes compared to yesterday at 2:24 AM 07/29/2015 [facility] HVI VAS Arterial Extracranial Doppler Bi [...] was noted in the vertebral arteries. 07/21/2015 [facility] Chest 1view DX EXAM: XR CHEST [...] tip overlies the right brachiocephalic vein. 07/21/2015 [facility] Consultation Notes No Data Provided for This Section Discharge Summaries No Data Provided for This Section History and Physicals No Data Provided for This Section Vital Signs Vital Sign Value Date Comments Source Systolic (mm Hg) 109 12/02/2015 [facility] Diastolic (mm Hg) 76 12/02/2015 [facility] Respitory Rate 22 12/02/2015 [facility] Heart Rate 87 12/02/2015 [facility] Temperature Oral (F) 97.6 F 12/02/2015 [facility] Systolic (mm Hg) 122 12/02/2015 [facility] Diastolic (mm Hg) 82 12/02/2015 [facility] Heart Rate 74 12/02/2015 [facility] Temperature Oral (F) 97.3 F 12/02/2015 [facility] Respitory Rate 21 12/02/2015 [facility] Temperature Oral (F) 97.3 F 12/02/2015 [facility] Heart Rate 73 12/02/2015 [facility] Systolic (mm Hg) 104 12/02/2015 [facility] Diastolic (mm Hg) 67 12/02/2015 [facility] Respitory Rate 16 12/02/2015 [facility] Height 182.88 cm 2015 [facility] BMI Calculated 31.53 2015 [facility] Weight 105.455 2015 [facility] Weight 113.636 2015 [facility] Height 182.88 cm 2015 [facility] BMI Calculated 33.98 2015 [facility] Respitory Rate 20 08/23/2015 [facility] Heart Rate 83 08/23/2015 [facility] Temperature Oral (F) 97.4 F 08/23/2015 [facility] Systolic (mm Hg) 107 08/23/2015 [facility] Diastolic (mm Hg) 53 08/23/2015 [facility] Temperature Oral (F) 97.7 F 08/23/2015 [facility] Heart Rate 82 08/23/2015 [facility] Respitory Rate 20 08/23/2015 [facility] Systolic (mm Hg) 130 08/23/2015 [facility] Diastolic (mm Hg) 84 08/23/2015 [facility] Respitory Rate 20 08/23/2015 [facility] Temperature Oral (F) 97.3 F 08/23/2015 [facility] Systolic (mm Hg) 128 08/23/2015 [facility] Diastolic (mm Hg) 85 08/23/2015 [facility] Height 182.88 cm 08/18/2015 [facility] Weight 95 08/18/2015 [facility] BMI Calculated 28.4 08/18/2015 [facility] Heart Rate 83 08/18/2015 [facility] Systolic (mm Hg) 125 08/18/2015 [facility] Diastolic (mm Hg) 82 08/18/2015 [facility] Heart Rate 105 08/18/2015 [facility] Respitory Rate 18 08/18/2015 [facility] Temperature Oral (F) 97.9 F 08/18/2015 [facility] Heart Rate 83 08/18/2015 [facility] Respitory Rate 18 08/18/2015 [facility] Systolic (mm Hg) 91 08/18/2015 [facility] Diastolic (mm Hg) 67 08/18/2015 [facility] Temperature Oral (F) 97.7 F 08/17/2015 [facility] Systolic (mm Hg) 102 08/17/2015 [facility] Diastolic (mm Hg) 71 08/17/2015 [facility] Respitory Rate 18 08/17/2015 [facility] Heart Rate 81 08/17/2015 [facility] Temperature Oral (F) 97.7 F 08/17/2015 [facility] BMI Calculated 29.77 07/21/2015 [facility] Weight 99.574 07/21/2015 [facility] Height 182.88 cm 07/21/2015 [facility] Encounters Location Location Details Encounter Type Encounter Number Reason For Visit Attending Provider ADM Date DC Date Status Source [facility] Inpatient [id number] Arie Chung 07/21/2015 08/18/2015 [facility] OBS Observation Patient [id number] Elham Bryson 08/18/2015 08/23/2015 [facility] Inpatient [id number] Octavio Dc Jr 2015 12/02/2015 [facility] Procedures Procedure Code Date Perfomer Comments Source Insertion of cardiac pacemaker [id number] [facility] Assessment and Plan Assessment and Plan Date Source Extracted from:Title: Clinical Document Author: Jana Monson MD Date: 12/02/15 [facility] Progress Note Impression: Prior [...] of the chest done at the [facility]. Those records would be helpful, to determineif [...] Consulting Physicians: Humberto Beavers MD Office: MSO: [id number] Service: Cardiology Piter Leslie MD Office: MSO: [id number] Service: Medicine Jocy Bailon MD Office: MSO: [id number] Service: Medicine Elham Bryson MD Office: MSO: [id number] Service: Medicine Admission Date: 08/18/2015 Discharge Date: [...] dx iwth PE, who was sent from [facility] for an episode of bradycardia and [...] [facility] I have spent 35 min with the patient and in coordinating discharge. Extracted from:Title: [facility] Cardiology Consult Note Author: Rosemary Vasquez [...] consult. Patient okay to discharge back to [facility]. He should follow-up with PCP or [employer] In[employer] upon discharge. 08/23/2015 [facility] Extracted from:Title: Clinical Document Author: Arie Chung MD Date: 08/16/15 Acute Care Service Line Progress Note Pager#[phone] Attending: Arie Chung Subjective: complains of back [...] alcohol abuse and COPD who presented to [facility] with chest pain as an [...] would otherwise require daily venous sticks. 08/18/2015 [facility] Plan of Care No Data Provided [...] Yes; Reg Smoking Cessation Counseling No 12/01/2015 [facility] Social History TypeResponse Alcohol Current, [...] Smoking Cessation Counseling No 07/21/2015 [facility] Social History TypeResponse Alcohol Current, Type [...] Yes; Reg Smoking Cessation Counseling No 07/21/2015 [facility] Family History No Data Provided for This Section Advance Directives No Data Provided for This Section Functional Status No Data Provided for This Section
[2019-01-26 12:41] LABS: BASOPHILS % 0.3 % (0.0-1.0); EOSINOPHILS % 0.4 % (0.0-6.0); HEMATOCRIT 36.5 % (38.2-49.6); HEMOGLOBIN 10.8 g/dL (14.0-18.0); LYMPHOCYTES # (AUTO) 2.4 (1.0-3.2); LYMPHOCYTES % 21.7 % (18.0-39.1); MEAN CORPUSCULAR HEMOGLOBIN 24.4 pg (28-32); MEAN CORPUSCULAR HGB CONC 29.6 g/dL (31-35); MEAN CORPUSCULAR VOLUME 82.6 fL (81-99); MONOCYTES # (AUTO) 1.1 (0.2-0.8); MONOCYTES % 10.1 % (4.4-11.3); NEUTROPHILS # (AUTO) 7.5 (2.1-6.9); NEUTROPHILS % 67.1 % (38.7-80.0); PLATELET COUNT 307 x10e3/uL (140-360); RED BLOOD COUNT 4.42 x10e6/uL (4.3-5.7); RED CELL DISTRIBUTION WIDTH 19.3 % (11.7-14.4)
--- NOTE | 2019-01-26 13:07 | Diagnostic Imaging Report ---
EXAMINATION: CHEST SINGLE (PORTABLE) INDICATION: Chest pain COMPARISON: Multiple prior chest radiographs most recently of 12/16/2018, chest CT of 12/08/2018 FINDINGS: LINES/TUBES:Left chest pacer appears unchanged. EKG leads overlie the chest. LUNGS:The lungs are hyperinflated. Biapical pleural parenchymal thickening/scarring. Again seen is diffusely increased bilateral interstitial opacities. Patchy opacities at the right lung base, most likely subsegmental atelectasis. No new focal consolidation. PLEURA:No pleural effusion or pneumothorax. MEDIASTINUM:The cardiomediastinal silhouette appears unchanged in size and shape. BONES/SOFT TISSUES:No acute osseous injury. ABDOMEN:No free air under the diaphragm. IMPRESSION: Hyperinflated lungs and increased bilateral interstitial opacities consistent with chronic interstitial lung disease. No new focal consolidation or lakhwinder pulmonary edema. Signed by: Brayden Fragoso MD on 01/26/2019 1:03 PM
[2019-01-26 13:08] LABS: ALANINE AMINOTRANSFERASE 8 IU/L (0-55); ALBUMIN 3.3 g/dL (3.5-5.0); ALBUMIN/GLOBULIN RATIO 0.9 (0.8-2.0); ALKALINE PHOSPHATASE 111 IU/L (40-150); ANION GAP 13.5 mmol/L (8-16); BLOOD UREA NITROGEN 8 mg/dL (7-26); BUN/CREATININE RATIO 10 (6-25); CALCIUM 9.6 mg/dL (8.4-10.2); CARBON DIOXIDE 30 mmol/L (22-29); CHLORIDE 97 mmol/L (98-107); CREATINE KINASE 34 IU/L (30-200); CREATININE, SERUM 0.78 mg/dL (0.72-1.25); EST GLOMERULAR FILTRATION RATE > 60 ML/MIN (60-); GLUCOSE 79 mg/dL (74-118); POTASSIUM 3.5 mmol/L (3.5-5.1); SODIUM 137 mmol/L (136-145)
[2019-01-26] MEDS: ASPIRIN 81 MG CHEW TAB PO ONE (14:46)
[2019-01-26 15:37] LABS: ALANINE AMINOTRANSFERASE 8 IU/L (0-55); ALBUMIN 3.2 g/dL (3.5-5.0); ALBUMIN/GLOBULIN RATIO 0.9 (0.8-2.0); ALKALINE PHOSPHATASE 109 IU/L (40-150); ANION GAP 11.5 mmol/L (8-16); BLOOD UREA NITROGEN 7 mg/dL (7-26); BUN/CREATININE RATIO 10 (6-25); CALCIUM 9.2 mg/dL (8.4-10.2); CARBON DIOXIDE 31 mmol/L (22-29); CHLORIDE 97 mmol/L (98-107); CREATININE, SERUM 0.71 mg/dL (0.72-1.25); EST GLOMERULAR FILTRATION RATE > 60 ML/MIN (60-); GLUCOSE 86 mg/dL (74-118); POTASSIUM 3.5 mmol/L (3.5-5.1); SODIUM 136 mmol/L (136-145)
[2019-01-26] MEDS: ALBUTEROL SULF 0.083% NEB SOLN 3 ML NEB NEB STA (16:08)
[2019-01-26 16:16] LABS: CREATINE KINASE MB 2.4 ng/mL (0-5.0)
[2019-01-26 16:22] VITALS: BP 109/90
--- NOTE | 2019-01-26 16:33 | NUR ---
report called to [facility]; keyanna at [facility] contacted for transport eta 60-90 min at [phone]
== END 2019-01-26 16:54 | disposition home or self-care (01) ==
LOC: ER 10:29
DX: R07.89 Other chest pain (principal); I25.10 Atherosclerotic heart disease of native coronary artery without angina pectoris; Z95.0 Presence of cardiac pacemaker; J44.9 Chronic obstructive pulmonary disease, unspecified; I48.91 Unspecified atrial fibrillation; I50.9 Heart failure, unspecified; E78.5 Hyperlipidemia, unspecified; Z79.01 Long term (current) use of anticoagulants; Z79.02 Long term (current) use of antithrombotics/antiplatelets; Z79.82 Long term (current) use of aspirin
CPT/HCPCS: 36415; 71045; 80053; 82550; 82553; 83880; 84484; 85025; 93005; 99284

== ENCOUNTER → 2019-01-26 | Outpatient (CLI) | payer OTHER ==
[~2019-01-26] MED LIST changes: +ACETAZOLAMIDE250 MG PO; +BUMETANIDE1 MG PO; +CARVEDILOL25 MG PO; +LEXAPRO10 MG PO; +RANEXA500 MG PO
--- NOTE | 2019-02-07 02:19 | Pulmonary Function Test ---
PULMONARY FUNCTION TESTING DATE OF STUDY: 01/26/2019 REFERRING PHYSICIAN: Inocente Garcia MD SIX MINUTE WALK DISTANCE: The patient ambulated 18.3 m over 2 minutes. He stopped due to chest pain. Initial heart rate was 72 with end heart rate of 72. Initial blood pressure 111/75, end blood pressure 112/68. Initial oxygen saturation was 97% on room air FiO2 with final SpO2 of 99%. Six minutes walk distance was truncated after 2 minutes due to the chest pain and the patient was sent to the ER. SUMMARY: Severely decreased 6-minute walk distance of 18.3 m over a 2 minute timeframe. Clinical correlation is recommended. MD ESE Mauro/MODL /[id number] MTDD
== END ==
LOC: RESP 08:52
PROVIDERS: ATTEND Internal Medicine Critical Care Medicine
DX: J44.9 Chronic obstructive pulmonary disease, unspecified (principal); J96.10 Chronic respiratory failure, unspecified whether with hypoxia or hypercapnia; J18.9 Pneumonia, unspecified organism; I25.10 Atherosclerotic heart disease of native coronary artery without angina pectoris; K21.9 Gastro-esophageal reflux disease without esophagitis; F41.9 Anxiety disorder, unspecified; Z88.9 Allergy status to unspecified drugs, medicaments and biological substances; F17.290 Nicotine dependence, other tobacco product, uncomplicated

== ENCOUNTER 2019-02-28 11:41 | Inpatient (IN) | payer OTHER ==
[~2019-02-28] VITALS: Ht 182.9 cm; Wt 99.8 kg
[2019-02-28] VITALS (13 sets, daily range): BP systolic 83–126; BP diastolic 50–97
--- NOTE | 2019-02-28 12:13 | NUR ---
JENI FLOWERS SUP AT BEDSIDE ATTEMPTING IV ACCESS
[2019-02-28 12:38] LABS: BASOPHILS % 0.1 % (0.0-1.0); EOSINOPHILS # (AUTO) 0.1 (0.0-0.4); EOSINOPHILS % 0.3 % (0.0-6.0); HEMATOCRIT 36.8 % (38.2-49.6); HEMOGLOBIN 10.3 g/dL (14.0-18.0); LYMPHOCYTES # (AUTO) 1.2 (1.0-3.2); LYMPHOCYTES % 8.3 % (18.0-39.1); MEAN CORPUSCULAR HEMOGLOBIN 25.2 pg (28-32); MONOCYTES # (AUTO) 1.3 (0.2-0.8); MONOCYTES % 8.7 % (4.4-11.3); PLATELET COUNT 263 x10e3/uL (140-360); RED BLOOD COUNT 4.09 x10e6/uL (4.3-5.7); RED CELL DISTRIBUTION WIDTH 17.2 % (11.7-14.4)
--- NOTE | 2019-02-28 12:38 | NUR ---
R.T. AT BEDSIDE ADMINISTERING BREATHING TX
[2019-02-28 12:49] LABS: INR 0.97; PROTHROMBIN TIME 13.4 seconds (11.9-14.5)
[2019-02-28 13:00] LABS: ALANINE AMINOTRANSFERASE 16 IU/L (0-55); ALBUMIN 2.9 g/dL (3.5-5.0); ALBUMIN/GLOBULIN RATIO 0.9 (0.8-2.0); ALKALINE PHOSPHATASE 72 IU/L (40-150); ANION GAP 12.4 mmol/L (8-16); BLOOD UREA NITROGEN 14 mg/dL (7-26); BUN/CREATININE RATIO 22 (6-25); CALCIUM 8.4 mg/dL (8.4-10.2); CARBON DIOXIDE 39 mmol/L (22-29); CHLORIDE 93 mmol/L (98-107); CREATINE KINASE 28 IU/L (30-200); CREATININE, SERUM 0.65 mg/dL (0.72-1.25); EST GLOMERULAR FILTRATION RATE > 60 ML/MIN (60-); GLUCOSE 111 mg/dL (74-118); MAGNESIUM 2.1 MG/DL (1.3-2.1); POTASSIUM 4.4 mmol/L (3.5-5.1); SODIUM 140 mmol/L (136-145)
[2019-02-28] MEDS ORDERED: IPRATROPIUM BROMIDE 0.02% 2.5 ML NEB NEB ONE (13:00)
[2019-02-28] MEDS ORDERED: METHYLPREDNISOLONE SOD SUCC 125 MG/2ML VIAL IV ONE (13:00)
[2019-02-28] MEDS ORDERED: KETOROLAC TROMETHAMINE 30 MG/ML VIAL IV ONE (13:00)
[2019-02-28] MEDS ORDERED: ALBUTEROL SULF 0.083% NEB SOLN 3 ML NEB NEB ONE (13:00)
[2019-02-28 13:06] LABS: B-TYPE NATRIURETIC PEPTIDE2 355.9 pg/mL (0-100)
--- NOTE | 2019-02-28 13:33 | NUR ---
R.T. NOTIFIED TO COMPLETE BLOOD GAS
[2019-02-28 13:41] LABS: BILIRUBIN,URINE NEGATIVE (NEGATIVE); CLARITY,URINE CLEAR (CLEAR); COLOR,URINE YELLOW (YELLOW); KETONES,URINE 1+ (NEGATIVE); LEUKOCYTE ESTERASE ,URINE NEGATIVE (NEGATIVE); NITRITE,URINE NEGATIVE (NEGATIVE); PROTEIN,URINE DIPSTICK NEGATIVE (NEGATIVE); URINE UROBILINOGEN 0.2 mg/dL (0.2 - 1)
[2019-02-28 13:49] LABS: RBC,URINE 0-5 /HPF (0-5); WBC,URINE (MAN) 0-5 /HPF (0-5)
[2019-02-28 13:50] LABS: MUCUS,URINE FEW (RARE)
[2019-02-28 14:07] LABS: ABG HCO3 39 mmol/L (23-28); ABG PCO2 65 mmHg (41-51); ABG PH 7.39 (7.31-7.41); ABG PO2 74 mmHg (80-105)
--- NOTE | 2019-02-28 14:16 | Diagnostic Imaging Report ---
EXAMINATION: CHEST SINGLE (PORTABLE) INDICATION: ^sob ^[id number] ^1300 COMPARISON: 01/26/2019 FINDINGS: AP view TUBES and LINES: Stable position of a 2-lead pacemaker with leads overlying the right atrial appendage and right ventricle. LUNGS: Lungs are well inflated. Bilateral interstitial edema, worse. Bibasilar atelectasis, unchanged. PLEURA: Trace bilateral pleural effusions. No pneumothorax. HEART AND MEDIASTINUM: Stable mild cardiomegaly. BONES AND SOFT TISSUES: No acute osseous lesion. Soft tissues are unremarkable. UPPER ABDOMEN: No free air under the diaphragm. IMPRESSION: Bilateral interstitial edema, worse when compared to 01/26/2019. Signed by: Dr. Liberty Paris M.D. on 02/28/2019 2:13 PM
[2019-02-28] MEDS ORDERED: ONDANSETRON HCL INJ 2MG/ML 2ML 2 MG/ML VIAL IV PRN (14:30)
[2019-02-28] MEDS: CEFEPIME 1GM/NS 0.9% 50 ML 50 ML IV SCH (14:57)
[2019-02-28] MEDS ORDERED: FUROSEMIDE INJ 10 MG/ML 4 ML VIAL IV ONE (15:00)
[2019-02-28] MEDS: ALBUTEROL/IPRATROPIUM 3 ML NEB NEB SCH ×3 (15:00→23:00)
[2019-02-28] MEDS: AZITHROMYCIN 500MG/NS 250 ML 250 ML IV SCH (15:36)
[2019-02-28] MEDS: MORPHINE SULFATE 2 MG/ML SYR 1ML IV PRN ×2 (16:23→20:45)
--- NOTE | 2019-02-28 16:29 | NUR ---
SPOKE WITH LAB, THEY ARE ON THEIR WAY TO OBTAIN 2ND LACTIC ACID
--- NOTE | 2019-02-28 17:44 | NUR ---
PATIENT 2ND LACTIC ELEVATED 2.7. DR. REICH NOTIFIED. SPOKE WITH EVERARDO WHITE N.P.. SHE ORDERED FOR DR. LAGUNAS TO BE CONSULTED
[2019-02-28] MEDS ORDERED: NITROGLYCERIN 2% OINT 1 GM PKT TOP SCH (18:00)
--- NOTE | 2019-02-28 18:00 | NUR ---
BLOOD PRESSURE 78 SYSTOLIC. NITRO PASTE REMOVED. PATIENT GIVEN [address] BOOGIE AWARE
[2019-02-28] MEDS ORDERED: SODIUM CHLORIDE 0.9% 500ML 500 ML ONE (18:07)
[2019-02-28] MEDS ORDERED: SODIUM CHLORIDE 0.9% 500ML 500 ML IV ONE (18:30)
--- NOTE | 2019-02-28 18:30 | NUR ---
500 CC NS COMPLETED. BP 89/58 (69). NO ADDITIONAL FLUIDS ORDERED. EVERARDO REICH ORDERED ECHO, [place], CRITICAL CARE CONSULT.
[2019-02-28] MEDS: MIDODRINE 2.5 MG TAB PO SCH (18:50)
[2019-02-28] MEDS ORDERED: MIDODRINE HCL 5 MG TABLET ONE (18:53)
--- NOTE | 2019-02-28 19:00 | NUR ---
DR. Jennyfer WELCH IN NURSES STATION SPEAKING WITH DR. BOOGIE. DR. WELCH WILL BE BACK TO EVALUATE PATIENT
--- NOTE | 2019-02-28 19:15 | NUR ---
BEDSIDE REPORT TO MEREDITH Sahni
--- NOTE | 2019-02-28 19:33 | NUR ---
DR. Jennyfer WELCH AT BEDSIDE EVALUATING PATIENT. STATED, "I WILL TAKE A LOOK AT HIM AND GIVE NASIFF A CALL TO UPDATE HIM"
[2019-02-28] MEDS ORDERED: ALBUTEROL SULFATE HFA 8GM INHALATION AEROSOL INH PRN (19:45)
[2019-02-28 20:28] LABS: CREATINE KINASE 24 IU/L (30-200)
[2019-02-28] MEDS: METHYLPREDNISOLONE SOD SUCC 40 MG/ML VIAL 1ML IV SCH (20:45)
[2019-02-28] MEDS: ATORVASTATIN 20 MG TAB PO SCH (20:45)
[2019-02-28] MEDS: CLOPIDOGREL BISULFATE 75 MG TAB PO SCH (20:45)
[2019-02-28] MEDS ORDERED: SODIUM CHLORIDE 0.9% 1000ML 2,000 ML ONE (20:45)
[2019-02-28] MEDS ORDERED: SODIUM CHLORIDE 0.9% 1000ML 2,000 ML IV ONE (21:00)
--- NOTE | 2019-02-28 21:15 | Consultation ---
DATE OF CONSULTATION: Pulmonary Critical Care Consultation CHIEF COMPLAINT: Chest pain. HISTORY OF PRESENT ILLNESS: The patient is a 63-year-old man. He has a history of a prior pacemaker as well as a prior anomalous left anterior descending artery. He has a left bundle branch block. He also has a history of chronic obstructive pulmonary disease. He has required hospitalization several times over the past couple of years with atypical chest pain, that has been relieved with narcotics. His most recent hospitalization was in December of this year, when he was admitted with community-acquired pneumonia as well as zxvha-vp-grvkkze systolic congestive heart failure, hypertension, and chest pain. The patient now complains of worsening chest pain. He says that this started yesterday. He notes some worsening dyspnea. He does not complain of fevers or cough. He received 2 mg of morphine, which he says did not help. He also received Toradol, which did not help. PAST MEDICAL HISTORY: 1. Chronic systolic congestive heart failure. 2. Chronic obstructive pulmonary disease. 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 PAST SURGICAL HISTORY: 1. Status post pacemaker. 2. Status post cardiac catheterization. SOCIAL HISTORY: The patient is a former smoker. He is not an active drinker. ALLERGIES: THE PATIENT HAS NO KNOWN DRUG ALLERGIES. FAMILY HISTORY: Noncontributory. REVIEW OF SYSTEMS: He does not complain of fever. He has no headache. He does have some chest pain. He has some dyspnea. He is not having any abdominal pain. He has no nausea or vomiting. He has no abdominal pain. He has no leg edema. PHYSICAL EXAMINATION: VITAL SIGNS: Blood pressure is 95/60 with a pulse of 70 to 75. His saturation is 100%. HEENT: Shows no facial swelling or erythema. CARDIAC: Reveals a regular rate and rhythm with normal S1, S2. There are no murmurs or rubs. LUNGS: Auscultation of lungs reveals clear breath sounds bilaterally. There is no wheezing. ABDOMEN: Soft, nontender. There is no rebound or guarding. EXTREMITIES: Show no leg edema or calf tenderness. There is no cyanosis or clubbing. SKIN: Shows no rashes. NEUROLOGICAL: Shows no focal abnormalities. LABORATORY DATA: White blood cell count is 14.6 and hemoglobin is 10.3. The platelet count is 263. BUN to creatinine ratio is 14 to 0.65 and the other electrolytes are within normal limits. The bicarbonate is 39. The BNP is 355.9 and the lactic acid is 2.7. Albumin is 2.9. RADIOGRAPHIC DATA: Chest x-ray shows bilateral interstitial edema. IMPRESSION: 1. Szybr-zc-zmrjhvy systolic congestive heart failure. 2. Chest pain of unclear cause. 3. Chronic obstructive pulmonary disease. 4. Anemia, secondary to chronic blood loss. PLAN: 1. IV diuretics. 2. Continue prior cardiac regimen. 3. Cardiology consultation. 4. Solu-Medrol 1 mg/kg twice daily. 5. Continue prior inhaler regimen. Alon Urena MD Jase/MODL /[id number]
--- NOTE | 2019-02-28 21:46 | Consultation ---
DATE OF CONSULTATION: 02/28/2019 Pulmonary Medicine Consult. REASON FOR REFERRAL: Shortness of breath. HISTORY OF PRESENT ILLNESS: Mr. Castañeda is a pleasant 63-year-old gentleman with shortness of breath. The patient well known to me for many years and a clinic patient of [facility], who presents with shortness of breath on February 28, 2019. The patient with advanced chronic obstructive pulmonary disease and possible asthma by history with chronic hypoxemia, on home oxygen. He cannot tolerate noninvasive ventilator at home, which I have ordered for him in the past. The patient with superimposed anxiety and history of cerebrovascular accident, that make it more difficult his respiratory condition. The patient presented with wheezing and chest pain. Onset was really worse today, although for last few days, it has been present at the lower level. The patient came to emergency room with additional chest tightness. The patient BNP level was 356. ABG; 7.39/65/74, which is not that bad for him. The patient with chest x-ray showing mild increase in opacities. He was admitted. I am consulted. PAST MEDICAL HISTORY: Chronic obstructive pulmonary disease, suggested asthma, atrial fibrillation/flutter, coronary artery disease, RCA 40%; hypertension, transient ischemic attack/stroke, anxiety, left carotid stenosis, pacemaker, tonsillectomy, left carotid stent in 2018. MEDICATIONS: Medication list reviewed per record. I am not clear about the accuracy, however, so have to review further. ALLERGIES: NO KNOWN DRUG ALLERGIES. SOCIAL HISTORY: No alcohol. No drugs. The patient quit drinking many years ago. The patient still smokes actively. He lives in assisted living facility. FAMILY HISTORY: Noncontributory to this. REVIEW OF SYSTEMS: GENERAL: No weight changes. OPHTHALMOLOGIC: No double vision. ENT: No mouth ulcers. ENDOCRINE: No thyroid disease. PULMONARY: No hemoptysis. CARDIAC: No recent PR. GI: No constipation. : No blood in urine. DERMATOLOGIC: No rash. NEUROLOGIC: No seizures. IMMUNOLOGIC: No lupus. OBJECTIVE: VITAL SIGNS: Afebrile, vital signs noted, reviewed per the chart record. GENERAL: In mild shortness of breath, especially on lying flat, improved when sitting up. A little bit of recruitment, secondary muscles to breathe. HEENT: Normocephalic, atraumatic. NECK: Supple. Throat midline. LUNGS: Bilateral air entry, decreased to moderate; rare rhonchi, limited. CARDIOVASCULAR: S1, S2. No murmurs, rubs, or gallops. ABDOMEN: Soft, nontender. EXTREMITIES: No clubbing. No cyanosis. There is trace edema. INTEGUMENT: No rash. No purpura. LABORATORY DATA: Potassium 4.4, bicarbonate 39. IMPRESSION AND PLAN: 1. Abnormal chest radiography, treated as pneumonia, acquired prior to admission. 2. Abnormal chest radiography, possible fluid overload. 3. Chronic obstructive pulmonary disease with exacerbation. 4. Yfqfk-ti-soflgym respiratory failure, hypoxemic/hypercapnic. 5. Anxiety disorder. 6. History of cerebrovascular accident. 7. Associated chronic right basilar atelectasis/scarring, status post bronchoscopy in October 2016, which was unremarkable. 8. Active smoking one pack per day. 9. Asthma, coexisting. 10. Atrial fibrillation. 11. Coronary artery disease, RCA 40%. 12. Depression. 13. Gastroesophageal reflux disease. 14. Hypertension. Continue bronchodilators. IV steroids. We will consider starting theophylline next day or two. Consider resumption of N-acetylcysteine therapy. We will have to clarify his outpatient medicines, which we deferred from the list in the system. Once he is better, aggressive PT and rehabilitation. The patient as well as he was recommended for smoking cessation, but he is not ready to quit. The patient will get cardiac enzymes to risk stratify further. He will be treated with diuretics once daily. Thank you very much, Dr. Marin, for allowing me a chance to participate in the care of Mr. Castañeda. Please do not hesitate to contact me if I can help in any way. MD ESE Mauro/MODL /[id number]
[2019-02-28] MEDS ORDERED: METHYLPREDNISOLONE SOD SUCC 40 MG/ML VIAL 1ML IV SCH (22:00)
[2019-02-28] MEDS: ACETAMINOPHEN/CODEINE 300MG - 30MG TAB PO PRN (22:25)
[2019-02-28 23:47] LABS: CREATINE KINASE 24 IU/L (30-200)
[2019-03-01] VITALS (36 sets, daily range): BP systolic 92–132; BP diastolic 63–98
[2019-03-01] MEDS ORDERED: NICOTINE 14 MG/EA PATCH TOP ONE
[2019-03-01] MEDS: MORPHINE SULFATE 2 MG/ML SYR 1ML IV PRN ×3 (01:20→09:32)
[2019-03-01] MEDS: ALBUTEROL/IPRATROPIUM 3 ML NEB NEB SCH ×8 (02:10→22:45)
[2019-03-01] MEDS ORDERED: SODIUM CHLORIDE 0.9% IV SCH (02:30)
[2019-03-01] MEDS: CEFEPIME 1GM/NS 0.9% 50 ML 50 ML IV SCH ×2 (03:02→14:30)
[2019-03-01] MEDS: ACETAMINOPHEN/CODEINE 300MG - 30MG TAB PO PRN ×3 (04:07→19:25)
[2019-03-01] MEDS: ACETAMINOPHEN 325 MG TAB PO PRN (04:07)
[2019-03-01 04:52] LABS: BASOPHILS % 0.1 % (0.0-1.0); HEMATOCRIT 30.2 % (38.2-49.6); HEMOGLOBIN 8.8 g/dL (14.0-18.0); LYMPHOCYTES # (AUTO) 0.3 (1.0-3.2); LYMPHOCYTES % 3.4 % (18.0-39.1); MEAN CORPUSCULAR HEMOGLOBIN 25.2 pg (28-32); MEAN CORPUSCULAR HGB CONC 29.1 g/dL (31-35); MEAN CORPUSCULAR VOLUME 86.5 fL (81-99); MONOCYTES # (AUTO) 0.1 (0.2-0.8); MONOCYTES % 0.7 % (4.4-11.3); NEUTROPHILS # (AUTO) 8.9 (2.1-6.9); NEUTROPHILS % 95.3 % (38.7-80.0); PLATELET COUNT 233 x10e3/uL (140-360); RED BLOOD COUNT 3.49 x10e6/uL (4.3-5.7); RED CELL DISTRIBUTION WIDTH 17.4 % (11.7-14.4)
[2019-03-01 05:14] LABS: CREATINE KINASE 22 IU/L (30-200)
[2019-03-01 05:41] LABS: ALANINE AMINOTRANSFERASE 15 IU/L (0-55); ALBUMIN 2.5 g/dL (3.5-5.0); ALBUMIN/GLOBULIN RATIO 0.8 (0.8-2.0); ALKALINE PHOSPHATASE 59 IU/L (40-150); ANION GAP 14.3 mmol/L (8-16); BLOOD UREA NITROGEN 17 mg/dL (7-26); BUN/CREATININE RATIO 24 (6-25); CALCIUM 7.8 mg/dL (8.4-10.2); CARBON DIOXIDE 29 mmol/L (22-29); CHLORIDE 96 mmol/L (98-107); CHOL/HDL RATIO 2.5 (3.9-4.7); CHOLESTEROL 143 MD/DL (0-199); CREATININE, SERUM 0.71 mg/dL (0.72-1.25); EST GLOMERULAR FILTRATION RATE > 60 ML/MIN (60-); GLUCOSE 191 mg/dL (74-118); HDL CHOLESTEROL 58 MG/DL (40-60); LDL CHOLESTEROL 73 MG/DL (60-130); POTASSIUM 4.3 mmol/L (3.5-5.1); SODIUM 135 mmol/L (136-145); TRIGLYCERIDES 60 MG/DL (0-149)
[2019-03-01] MEDS: TIOTROPIUM 18 MCG INH POWDER INH SCH ×2 (06:35→14:20)
[2019-03-01] MEDS: BUDESONIDE/FORMOTEROL 160/4.5MCG INHALER INH SCH ×2 (06:35→19:25)
--- NOTE | 2019-03-01 07:05 | Diagnostic Imaging Report ---
EXAMINATION: CHEST SINGLE (PORTABLE) INDICATION: Congestive heart failure COMPARISON: Chest radiograph 02/28/2019, 12/07/2018; chest CT 12/08/2018 FINDINGS: AP view TUBES and LINES: Left chest wall cardiac device with leads in the right atrium and right ventricle. LUNGS: Hazy opacities in the right upper lung and right lower lung. Prominent central pulmonary vasculature. Left lung well aerated. PLEURA: No pleural effusion or pneumothorax. HEART AND MEDIASTINUM: Cardiac size is mildly enlarged. BONES AND SOFT TISSUES: No acute osseous lesion. Soft tissues are unremarkable. UPPER ABDOMEN: No free air under the diaphragm. Surgical clips project in the right upper chest. IMPRESSION: Airspace opacities in the right lung could represent pneumonia, although edema is also consideration. Mild cardiopulmonary and pulmonary vascular congestion. Signed by: Zack Thompson DO on 03/01/2019 7:02 AM
[2019-03-01] MEDS ORDERED: FUROSEMIDE INJ 10 MG/ML 4 ML VIAL IV SCH ×2 (09:00→17:00)
[2019-03-01] MEDS ORDERED: NICOTINE 14 MG/EA PATCH TOP SCH ×2 (09:00→21:00)
[2019-03-01] MEDS: METHYLPREDNISOLONE SOD SUCC 40 MG/ML VIAL 1ML IV SCH (09:32)
[2019-03-01] MEDS: MIDODRINE 2.5 MG TAB PO SCH (09:33)
[2019-03-01] MEDS: MONTELUKAST SODIUM 10 MG TAB PO SCH (09:33)
[2019-03-01] MEDS: DULOXETINE HCL 20 MG DELAYED RELEASE PO SCH (09:33)
[2019-03-01] MEDS: ASPIRIN 81 MG CHEW TAB PO SCH (09:33)
--- NOTE | 2019-03-01 12:22 | NUR ---
Pulmonary Medicine Date of encounter: 03/01/2019 SUBJECTIVE: Currently on oxygen 4 L/min oxygen Delivery by nasal cannula Patient with goot appetite, eats well Mildly less dyspneic today REVIEW OF SYSTEMS: no bleeding, no rash OBJECTIVE: VITAL SIGNS: Afebrile, vital signs noted per the chart record. GENERAL: Mild secondary respiratory muscles in use. In bed, eating. HEENT: Normocephalic, atraumatic. NECK: Supple. Throat midline. LUNGS: Bilateral air entry decreased. Limited evaluation. No lakhwinder wheezing CARDIOVASCULAR: S1, S2. No murmurs, rubs, or gallops. ABDOMEN: Soft, nontender. EXTREMITIES: No clubbing. No cyanosis. Trace edema. INTEGUMENT: No rash. No purpura. LABORATORY DATA: k 4.3, cr 0.71, wbc 9.4, hct 30, plt 233. IMPRESSION AND PLAN: 1. Abnormal chest radiography, healthcare associated pneumonia acquired prior to admission. 2. Abnormal chest radiography, possible fluid overload. 3. Chronic obstructive pulmonary disease with exacerbation. 4. Chronic respiratory failure, hypoxemic/hypercapnic. 5. Anxiety disorder. 6. History of cerebrovascular accident. 7. Associated chronic right basilar atelectasis/scarring, s/p unremarkable bronchoscopy October 2016 8. Active smoking one pack per day. 9. Asthma, coexisting per history 10. Atrial fibrillation. 11. Coronary artery disease, RCA 40%. 12. Depression. 13. Gastroesophageal reflux disease. 14. Hypertension. Continue bronchodilators Steroids, wean Theophylline N-acetylcysteine PO BID senior living azithromycin aggressive PT and rehabilitation. The patient is recommended for smoking cessation, but he is not ready to quit He will not tolerate home NIV Diuretics Thank you very much, Dr. Marin, for allowing me a chance to participate in the care of Mr. Castañeda. Please do not hesitate to contact me if I can help in any way.
[2019-03-01] MEDS ORDERED: LORAZEPAM 0.5 MG TAB PO PRN (12:45)
--- NOTE | 2019-03-01 13:11 | Diagnostic Imaging Report ---
EXAM: Focused Soft Tissue Ultrasound Evaluation of bilateral chest INDICATION: ^pleural thickening, effusion right side ^[id number] ^[id number] COMPARISON: Chest radiograph of earlier the same day TECHNIQUE: Salazar scale, color Doppler images of bilateral chest were obtained. FINDINGS/IMPRESSION: No right pleural effusion. Possible trace left pleural effusion, insufficient to safely perform thoracentesis. Signed by: Brayden Fragoso MD on 03/01/2019 1:08 PM
[2019-03-01] MEDS: THEOPHYLLINE 200 MG TABCR PO SCH (13:14)
[2019-03-01] MEDS: AZITHROMYCIN 250 MG TAB PO SCH (14:18)
[2019-03-01] MEDS: AZITHROMYCIN 500MG/NS 250 ML 250 ML IV SCH (15:00)
[2019-03-01] MEDS: MIDODRINE HCL 5 MG TABLET PO SCH (16:30)
[2019-03-01] MEDS: ACETYLCYSTEINE 200 MG/ML 4ML VIAL PO SCH (18:08)
[2019-03-01] MEDS: ATORVASTATIN 20 MG TAB PO SCH (21:23)
[2019-03-01] MEDS: CLOPIDOGREL BISULFATE 75 MG TAB PO SCH (21:23)
[2019-03-01] MEDS: LORAZEPAM 1 MG TAB PO PRN (21:24)
--- NOTE | 2019-03-01 23:08 | Consultation ---
DATE OF CONSULTATION: 03/01/2019 Cardiology Consultation REQUESTING PHYSICIAN: Edward Marin MD. REASON FOR CONSULTATION: Chest pain. 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 All history is obtained from the EMR as the patient responded "I don't know" to all questions. Per the ER record, he presented with complaints of shortness of breath and chest pain on the day of admission. This was worsened with exertion and improved with rest. He did endorse a productive cough. On evaluation in the ER, he was found to have airspace opacities in the right lung suspicious for pneumonia and his white count was elevated to 14.62. He was subsequently admitted to the hospital for treatment of pneumonia as well as CHF exacerbation given pulmonary edema on chest x-ray. Cardiology is consulted for management of his chest pain. The patient has had extensive prior cardiac evaluation, which has been unrevealing, although he does have anomalous left coronary artery. This is unlikely to be the cause of his symptoms. No further details could be obtained from the patient as the patient only answered "I don't know" in response to questions. REVIEW OF SYSTEMS: Unable to obtain secondary to patient lack of cooperation. PAST MEDICAL HISTORY: 1. 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 2. Left bundle-branch block. 3. Permanent pacemaker. 4. Paroxysmal atrial fibrillation. 5. Chronic systolic heart failure, LVEF of 45%. 6. COPD. ALLERGIES: PLEASE SEE EMR. MEDICATIONS: Please see medication list. SOCIAL HISTORY: No alcohol or illicit drugs. Does currently still smoke. FAMILY HISTORY: Noncontributory to current illness. PHYSICAL EXAMINATION: VITAL SIGNS: Temperature 97.8 degrees, pulse 71, respiratory rate 18, blood pressure 103/83, and oxygen saturation 96% on 3 L nasal cannula. GENERAL: Well-developed, well-nourished man, mildly distressed. HEENT: Normocephalic, atraumatic. Pupils are equal. No scleral icterus. NECK: Supple. No thyromegaly or cervical lymphadenopathy. No carotid bruits. LUNGS: Clear to auscultation. However, noticeably tachypneic while laying flat with respiratory rate in the 30s. CARDIOVASCULAR: Normal rate. Regular rhythm. No murmur. Normal S1 and S2. ABDOMEN: Soft, nontender. EXTREMITIES: Trace edema. NEUROLOGIC: Nonfocal exam. CARDIAC MEDICATIONS: 1. Aspirin 81 mg p.o. daily. 2. Midodrine 10 mg p.o. t.i.d. 3. Furosemide 40 mg IV daily. 4. Plavix 75 mg p.o. daily. 5. Atorvastatin 20 mg p.o. at bedtime. LABORATORY DATA: WBC 9.37, hemoglobin 8.8, hematocrit 30.2, platelets 233. Sodium 135, potassium 4.3, chloride 96, CO2 of 29, BUN 17, creatinine 0.71. Lactic acid 3.1. Cholesterol 143, triglycerides 60, LDL 73, HDL 58. BNP 356. DIAGNOSTIC DATA: Chest x-ray, airspace opacities in the right lung could represent pneumonia, although edema is also a consideration. Mild cardiopulmonary and pulmonary vascular congestion. EKG, electronic ventricular pacemaker. IMPRESSION: 1. Pneumonia. 2. Oeanl-kn-[id number] systolic heart failure. 3. Chest pain. 4. Chronic obstructive pulmonary disease exacerbation. 5. 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 6. Left bundle-branch block. 7. Permanent pacemaker. 8. History of cerebrovascular accident. 9. Left carotid artery stenosis status post carotid stents. 10. Atrial fibrillation/flutter. 11. Hypertension. 12. Tobacco use. RECOMMENDATIONS: The patient is ruled out for myocardial infarction with serial cardiac biomarkers. Repeat one more troponin if negative. No further cardiac evaluation is indicated at this time. Would increase diuretics given the patient's tachypnea and elevated BNP. Treatment of pneumonia per Pulmonary. Continue home cardiac medications otherwise. Continue supportive care. The patient's blood pressure is adequately controlled. Monitor the patient closely on telemetry. Device check. Thank you for this consult. We will continue to follow. Lisa Marsh MD ABS/MODL /[id number]
[2019-03-02] VITALS (25 sets, daily range): BP systolic 95–220; BP diastolic 70–118
[2019-03-02] MEDS: CEFEPIME 1GM/NS 0.9% 50 ML 50 ML IV SCH ×2 (01:45→13:32)
[2019-03-02] MEDS: LORAZEPAM 1 MG TAB PO PRN ×4 (01:46→22:59)
[2019-03-02] MEDS: ACETAMINOPHEN/CODEINE 300MG - 30MG TAB PO PRN ×4 (01:46→20:10)
[2019-03-02] MEDS: ALBUTEROL/IPRATROPIUM 3 ML NEB NEB SCH ×6 (02:27→23:02)
[2019-03-02 04:34] LABS: BASOPHILS % 0.1 % (0.0-1.0); HEMOGLOBIN 9.1 g/dL (14.0-18.0); LYMPHOCYTES # (AUTO) 0.5 (1.0-3.2); LYMPHOCYTES % 2.7 % (18.0-39.1); MEAN CORPUSCULAR HEMOGLOBIN 24.9 pg (28-32); MEAN CORPUSCULAR HGB CONC 29.4 g/dL (31-35); MEAN CORPUSCULAR VOLUME 84.9 fL (81-99); MONOCYTES # (AUTO) 0.8 (0.2-0.8); MONOCYTES % 4.5 % (4.4-11.3); NEUTROPHILS # (AUTO) 15.7 (2.1-6.9); NEUTROPHILS % 92.1 % (38.7-80.0); PLATELET COUNT 248 x10e3/uL (140-360); RED BLOOD COUNT 3.65 x10e6/uL (4.3-5.7); RED CELL DISTRIBUTION WIDTH 17.5 % (11.7-14.4)
[2019-03-02 05:09] LABS: % IRON SATURATION 10 % (15-50); ANION GAP 14.2 mmol/L (8-16); BLOOD UREA NITROGEN 15 mg/dL (7-26); BUN/CREATININE RATIO 23 (6-25); CALCIUM 8.2 mg/dL (8.4-10.2); CARBON DIOXIDE 33 mmol/L (22-29); CHLORIDE 94 mmol/L (98-107); CREATININE, SERUM 0.66 mg/dL (0.72-1.25); EST GLOMERULAR FILTRATION RATE > 60 ML/MIN (60-); GLUCOSE 121 mg/dL (74-118); IRON 40 ug/dL (65-175); POTASSIUM 4.2 mmol/L (3.5-5.1); SODIUM 137 mmol/L (136-145); TOTAL IRON BINDING CAPACITY 421 ug/dL (261-478); TRANSFERRIN 301 mg/dL (174-364)
[2019-03-02 05:13] LABS: FERRITIN 64.55 ng/mL (21.81-274.66); THYROID STIMULATING HORMONE 0.922 uIU/mL (0.350-4.940)
[2019-03-02] MEDS: BUMETANIDE 1 MG TAB PO SCH ×3 (06:05→20:10)
[2019-03-02] MEDS ORDERED: ANORO ELLIPTA1 EACH IH (06:07)
[2019-03-02] MEDS ORDERED: METOPROLOL TART25 MG PO (06:12)
[2019-03-02] MEDS ORDERED: SPIRIVA18 MCG INH (06:16)
[2019-03-02] MEDS: TIOTROPIUM 18 MCG INH POWDER INH SCH (07:25)
[2019-03-02] MEDS: BUDESONIDE/FORMOTEROL 160/4.5MCG INHALER INH SCH ×2 (07:25→19:20)
[2019-03-02] MEDS: FAMOTIDINE 20 MG TAB PO SCH ×2 (07:26→15:56)
[2019-03-02] MEDS: PANTOPRAZOLE SODIUM 40 MG SUSPDR.PKT PO SCH (07:27)
[2019-03-02] MEDS: MIDODRINE HCL 5 MG TABLET PO SCH ×3 (07:27→15:56)
[2019-03-02] MEDS: ASPIRIN 81 MG CHEW TAB PO SCH (08:18)
[2019-03-02] MEDS: WARFARIN SOD 3 MG TAB PO SCH (08:18)
[2019-03-02] MEDS: CITALOPRAM HYDROBROMIDE 20 MG TAB PO SCH (08:18)
[2019-03-02] MEDS: MONTELUKAST SODIUM 10 MG TAB PO SCH (08:19)
[2019-03-02] MEDS: THEOPHYLLINE 200 MG TABCR PO SCH (08:19)
[2019-03-02] MEDS: ESCITALOPRAM OXALATE 10 MG TAB PO SCH (08:19)
[2019-03-02] MEDS: LEVETIRACETAM 500 MG TAB PO SCH ×2 (08:19→15:56)
[2019-03-02] MEDS: DULOXETINE HCL 20 MG DELAYED RELEASE PO SCH (08:19)
[2019-03-02] MEDS: PREDNISONE 20 MG TAB PO SCH (08:19)
[2019-03-02] MEDS: ACETYLCYSTEINE 200 MG/ML 4ML VIAL PO SCH ×2 (08:20→15:56)
[2019-03-02] MEDS: NICOTINE 21 MG/EA PATCH TOP SCH (10:00)
--- NOTE | 2019-03-02 10:00 | NUR ---
pt disconnected himself from monitor and attempting to go smoke. significant sob noted. rr 36-40. notified latisha downs/ dr hall. notified cn and cnc supervisor regarding continued care if pt continues his attempt to go smoke despite his fragile condition. s/w moira and pt must speak to md to sign ama if refusing treatment by leaving to smoke.
[2019-03-02] MEDS: HYDROCODONE/APAP 5MG-325MG TAB PO PRN ×2 (10:39→18:19)
--- NOTE | 2019-03-02 11:28 | NUR ---
dr stanley making rounds and spoke to pt regarding current treatment and no smoking while he is in the hospital. pt verbalizes understanding of policy and expectations.
--- NOTE | 2019-03-02 11:43 | NUR ---
Pulmonary Medicine Date of encounter: 03/02/2019 SUBJECTIVE: patient once again slightly better than admit, but slow progress he has urges to smoke he remains in the IMCU level at this time-- when he ambulates he requires time to recover from severe dyspnea oxygen by HI REVIEW OF SYSTEMS: no bleeding, no rash OBJECTIVE: VITAL SIGNS: Afebrile, vital signs per the chart record. GENERAL: Mild secondary respiratory muscles in use again. In bed HEENT: Normocephalic, atraumatic. NECK: Supple. Throat midline. LUNGS: Bilateral air entry decreased. Limited evaluation. No lakhwinder wheezing CARDIOVASCULAR: S1, S2. No murmurs, rubs, or gallops. ABDOMEN: Soft, nontender. EXTREMITIES: No clubbing. No cyanosis. Trace edema. INTEGUMENT: No rash. No purpura. LABORATORY DATA: k 4.2, cr 0.66, hco3 33. wbc 17, hct 31, plt 248. IMPRESSION AND PLAN: 1. Abnormal chest radiography, healthcare associated pneumonia acquired prior to admission. 2. Abnormal chest radiography, possible fluid overload. 3. Chronic obstructive pulmonary disease with exacerbation. 4. Chronic respiratory failure, hypoxemic/hypercapnic. 5. Anxiety disorder. 6. History of cerebrovascular accident. 7. Associated chronic right basilar atelectasis/scarring, s/p unremarkable bronchoscopy October 2016 8. Active smoking one pack per day. 9. Asthma, coexisting per history 10. Atrial fibrillation. 11. Coronary artery disease, RCA 40%. 12. Depression. 13. Gastroesophageal reflux disease. 14. Hypertension. Continue bronchodilators Steroids, wean Theophylline N-acetylcysteine PO BID jail azithromycin aggressive PT and rehabilitation. The patient is recommended for smoking cessation, but he is not ready to quit. He will not tolerate home NIV Diuretics trial US chest - no pleural effusion Thank you very much, Dr. Marin, for allowing me a chance to participate in the care of Mr. Castañeda. Please do not hesitate to contact me if I can help in any way.
[2019-03-02] MEDS: AZITHROMYCIN 500MG/NS 250 ML 250 ML IV SCH (14:07)
--- NOTE | 2019-03-02 17:08 | Progress Note ---
DATE: 03/02/2019 Cardiology Progress Note SUBJECTIVE: The patient continues to have chest pain and shortness of breath. OBJECTIVE: VITAL SIGNS: Temperature 98.2 degrees, pulse 74, respiratory rate 36, blood pressure 145/118, oxygen saturation 94% on 3 L nasal cannula. GENERAL: Awake, alert, mildly distressed, visibly tachypneic. LUNGS: Clear to auscultation bilaterally. No wheezes or crackles. CARDIOVASCULAR: Normal rate, regular rhythm. No murmur. Normal S1, S2. ABDOMEN: Soft, nontender. EXTREMITIES: Trace edema. CARDIAC MEDICATIONS: Bumex 2 mg p.o. q.8 hours, warfarin 9 mg p.o. daily, aspirin 81 mg p.o. daily, Plavix 75 mg p.o. daily, atorvastatin 20 mg p.o. at bedtime. LABORATORY DATA: WBC 17.01, hemoglobin 9.1, hematocrit 31, platelets 248. Sodium 137, potassium 4.2, chloride 94, CO2 of 33, BUN 15, creatinine 0.66. TELEMETRY: V-paced. IMPRESSION: 1. Pneumonia. 2. Acute on chronic systolic heart failure. 3. Chest pain. 4. Chronic obstructive pulmonary disease exacerbation. 5. Anomalous left anterior descending, arising from the right coronary cusp. 6. Left bundle-branch block. 7. Permanent pacemaker. 8. History of cerebrovascular accident. 9. Left carotid artery stenosis status post carotid stent. 10. Atrial fibrillation/flutter. 11. Hypertension. 12. Tobacco use. RECOMMENDATIONS: The patient ruled out for myocardial infarction with serial cardiac biomarkers. No further cardiac evaluation is indicated at this time as he has had extensive cardiac evaluation earlier this year. Continue diuresis given elevated BNP and tachypnea. Treatment of pneumonia and COPD exacerbation per Pulmonary. Continue current cardiac medications otherwise. Monitor INR closely. Continue supportive care. Device interrogation was performed at the patient's request. The patient has a [employer] dual-chamber pacemaker with seven years battery remaining. He is in atrial fibrillation with normal function, V-paced greater than 99% of the time with chronic atrial fibrillation in the atrial chambers. Blood pressure is for the most part adequate for age. We will continue to monitor. Thank you for this consult. We will continue to follow. Lisa Marsh MD ABS/MODL /[id number]
[2019-03-02] MEDS: CLOPIDOGREL BISULFATE 75 MG TAB PO SCH (20:10)
[2019-03-02] MEDS: ATORVASTATIN 20 MG TAB PO SCH (20:10)
[2019-03-02] MEDS: QUETIAPINE FUMARATE 25 MG TAB PO SCH (20:10)
[2019-03-02] MEDS: MIRTAZAPINE 15 MG TAB PO SCH (20:10)
--- NOTE | 2019-03-02 21:40 | NUR ---
Transferred to [facility] via hospital bed accompanied by 2 RNs. Pt connected to Bedside monitor and 02 and repot given to Primary RN.
[2019-03-02] MEDS: ACETAMINOPHEN 325 MG TAB PO PRN (22:30)
[2019-03-02] MEDS: KETOROLAC TROMETHAMINE 30 MG/ML VIAL IV PRN (22:59)
[2019-03-03] MEDS: ALBUTEROL/IPRATROPIUM 3 ML NEB NEB SCH ×6 (03:10→23:00)
[2019-03-03] MEDS ORDERED: SODIUM CHLORIDE 0.9% 250ML 250 ML ONE (03:14)
[2019-03-03] MEDS: CEFEPIME 1GM/NS 0.9% 50 ML 50 ML IV SCH ×2 (03:16→13:48)
[2019-03-03 04:32] VITALS: BP 119/82
[2019-03-03] MEDS: BUMETANIDE 1 MG TAB PO SCH ×3 (06:34→21:04)
[2019-03-03 08:00] VITALS: BP 156/93
[2019-03-03] MEDS: PANTOPRAZOLE SODIUM 40 MG SUSPDR.PKT PO SCH (08:00)
[2019-03-03] MEDS: MIDODRINE HCL 5 MG TABLET PO SCH ×3 (08:00→15:37)
[2019-03-03] MEDS: FAMOTIDINE 20 MG TAB PO SCH ×2 (08:00→15:37)
[2019-03-03] MEDS: ACETYLCYSTEINE 200 MG/ML 4ML VIAL PO SCH ×3 (08:00→19:30)
[2019-03-03] MEDS: ASPIRIN 81 MG CHEW TAB PO SCH (08:00)
[2019-03-03] MEDS: CITALOPRAM HYDROBROMIDE 20 MG TAB PO SCH (08:00)
[2019-03-03] MEDS: DOCUSATE SODIUM 100 MG CAP PO SCH ×2 (08:00→16:01)
[2019-03-03] MEDS: NICOTINE 21 MG/EA PATCH TOP SCH (08:01)
[2019-03-03] MEDS: DULOXETINE HCL 20 MG DELAYED RELEASE PO SCH (08:01)
[2019-03-03] MEDS: CYANOCOBALAMIN 1,000 MCG TAB PO SCH (08:01)
[2019-03-03] MEDS: PREDNISONE 20 MG TAB PO SCH (08:01)
[2019-03-03] MEDS: WARFARIN SOD 3 MG TAB PO SCH (08:01)
[2019-03-03] MEDS: THEOPHYLLINE 200 MG TABCR PO SCH (08:01)
[2019-03-03] MEDS: MONTELUKAST SODIUM 10 MG TAB PO SCH (08:01)
[2019-03-03] MEDS: LEVETIRACETAM 500 MG TAB PO SCH ×2 (08:01→16:01)
[2019-03-03] MEDS: ESCITALOPRAM OXALATE 10 MG TAB PO SCH (08:01)
--- NOTE | 2019-03-03 08:49 | Diagnostic Imaging Report ---
EXAMINATION: CHEST SINGLE (PORTABLE) INDICATION: Pneumonia COMPARISON: Chest radiograph of 03/01/2019 FINDINGS: LINES/TUBES:EKG leads overlie the chest. Left chest pacer unchanged. LUNGS:The lungs are moderately inflated. There is perihilar fullness and indistinctness of the pulmonary vasculature. There is left basilar opacity silhouetting the left tom diaphragm. PLEURA:No pleural effusion or pneumothorax. MEDIASTINUM:The cardiomediastinal silhouette appears unchanged in size and shape. BONES/SOFT TISSUES:No acute osseous injury. ABDOMEN:No free air under the diaphragm. IMPRESSION: Unchanged interstitial pulmonary edema. Left basilar patchy opacity, more likely subsegmental atelectasis than superimposed aspiration or pneumonia. Signed by: Brayden Fragoso MD on 03/03/2019 8:45 AM
--- NOTE | 2019-03-03 09:17 | NUR ---
[employer]KE [employer] OR [facility]AV[facility] SALESPERSON FROM [facility] DIRECT LINE [phone] IS AVAILABLE FOR ANY DISCHARGE ASSISTANCE
[2019-03-03] MEDS: HYDROCODONE/APAP 5MG-325MG TAB PO PRN ×3 (09:23→23:38)
[2019-03-03 10:53] LABS: INR 0.93
[2019-03-03 11:06] VITALS: BP 156/93
[2019-03-03] MEDS: BUDESONIDE/FORMOTEROL 160/4.5MCG INHALER INH SCH ×2 (11:15→19:30)
[2019-03-03] MEDS: TIOTROPIUM 18 MCG INH POWDER INH SCH (11:15)
[2019-03-03] MEDS: ACETAMINOPHEN/CODEINE 300MG - 30MG TAB PO PRN ×2 (11:32→19:30)
--- NOTE | 2019-03-03 11:35 | NUR ---
Pulmonary Medicine Date of encounter: 03/03/2019 SUBJECTIVE: continues on oxygen by nasal cannula walking, some SOB but he can recover eating, BM+ REVIEW OF SYSTEMS: no bleeding, no rash OBJECTIVE: VITAL SIGNS: Afebrile, vital signs per the chart record. GENERAL: Mild secondary respiratory muscles in use again. In bed HEENT: Normocephalic, atraumatic. NECK: Supple. Throat midline. LUNGS: Bilateral air entry decreased. Limited evaluation. No lakhwinder wheezing CARDIOVASCULAR: S1, S2. No murmurs, rubs, or gallops. ABDOMEN: Soft, nontender. EXTREMITIES: No clubbing. No cyanosis. Trace edema. INTEGUMENT: No rash. No purpura. LABORATORY DATA: yesterday k 4.2, cr 0.66, wbc 17 IMPRESSION AND PLAN: 1. Abnormal chest radiography, healthcare associated pneumonia acquired prior to admission. 2. Abnormal chest radiography, possible fluid overload. 3. Chronic obstructive pulmonary disease with exacerbation. 4. Chronic respiratory failure, hypoxemic/hypercapnic. 5. Anxiety disorder. 6. History of cerebrovascular accident. 7. Associated chronic right basilar atelectasis/scarring, s/p unremarkable bronchoscopy October 2016 8. Active smoking one pack per day. 9. Asthma, coexisting per history 10. Atrial fibrillation. 11. Coronary artery disease, RCA 40%. 12. Depression. 13. Gastroesophageal reflux disease. 14. Hypertension. Continue bronchodilators Steroids, wean Theophylline N-acetylcysteine PO BID retirement azithromycin aggressive PT and rehabilitation. The patient is recommended for smoking cessation, but he is not ready to quit. He will not tolerate home NIV, as tried in the past Diuretics trial Thank you very much, Dr. Marin, for allowing me a chance to participate in the care of Mr. Castañeda. Please do not hesitate to contact me if I can help in any way.
[2019-03-03 12:00] VITALS: BP 93/72
[2019-03-03] MEDS: AZITHROMYCIN 250 MG TAB PO SCH (13:15)
[2019-03-03] MEDS: AZITHROMYCIN 500MG/NS 250 ML 250 ML IV SCH (14:10)
[2019-03-03 16:00] VITALS: BP 106/58
[2019-03-03 19:30] VITALS: BP 138/83
[2019-03-03] MEDS: CLOPIDOGREL BISULFATE 75 MG TAB PO SCH (20:16)
[2019-03-03] MEDS: MIRTAZAPINE 15 MG TAB PO SCH (20:16)
[2019-03-03] MEDS: QUETIAPINE FUMARATE 25 MG TAB PO SCH (20:16)
[2019-03-03] MEDS: ATORVASTATIN 20 MG TAB PO SCH (20:16)
[2019-03-04] VITALS (8 sets, daily range): BP systolic 117–141; BP diastolic 85–93
--- NOTE | 2019-03-04 01:30 | Progress Note ---
DATE: Cardiology Progress Note SUBJECTIVE: The patient continues to complain of chest pain and shortness of breath. OBJECTIVE: VITAL SIGNS: Temperature 97.6 degrees, pulse 71, respiratory rate 16, blood pressure 93/72, and oxygen saturation 96% on 3 L nasal cannula. GENERAL: Awake and alert, in no acute distress. LUNGS: Clear to auscultation bilaterally. No wheezes or crackles. Continue to be tachypneic. CARDIOVASCULAR: Normal rate. Regular rhythm. No murmur. Normal S1 and S2. ABDOMEN: Soft and nontender. EXTREMITIES: No edema. CARDIAC MEDICATIONS: Bumex 2 mg p.o. q.8 hours, Plavix 75 mg p.o. daily, atorvastatin 20 mg p.o. at bedtime, and warfarin 9 mg p.o. daily. LABORATORY DATA: None today. TELEMETRY: V-paced. IMPRESSION: 1. Pneumonia. 2. Uwmah-[id number] systolic heart failure. 3. Chest pain. 4. Chronic obstructive pulmonary disease exacerbation. 5. Anomalous left anterior descending artery to the right coronary cusp. 6. Left bundle-branch block. 7. Permanent pacemaker. 8. History of cerebrovascular accident. 9. Left carotid artery stenosis, status post cardiac stent. 10. Atrial fibrillation/flutter. 11. Hypertension. 12. Tobacco use. RECOMMENDATIONS: The patient ruled out for myocardial infarction with serial cardiac biomarkers. No further cardiac evaluation is indicated at this time as he has had extensive cardiac evaluation earlier this year. Continue diuresis given elevated BNP and tachypnea. Treatment of pneumonia and COPD exacerbation per Pulmonary. Continue current cardiac medications. INR remains subtherapeutic continue warfarin. The patient's blood pressure is for the most part adequately controlled. We will monitor. Thank you for this consult. We will continue to follow. Lisa Marsh MD ABS/MODL /[id number]
[2019-03-04] MEDS: ALBUTEROL/IPRATROPIUM 3 ML NEB NEB SCH ×6 (02:05→22:36)
[2019-03-04] MEDS: CEFEPIME 1GM/NS 0.9% 50 ML 50 ML IV SCH ×2 (03:16→13:46)
[2019-03-04] MEDS: KETOROLAC TROMETHAMINE 30 MG/ML VIAL IV PRN (03:38)
[2019-03-04 05:03] LABS: HEMATOCRIT 32.3 % (38.2-49.6); HEMOGLOBIN 9.5 g/dL (14.0-18.0); LYMPHOCYTES # (AUTO) 1.1 (1.0-3.2); LYMPHOCYTES % 11.6 % (18.0-39.1); MEAN CORPUSCULAR HEMOGLOBIN 25.4 pg (28-32); MEAN CORPUSCULAR HGB CONC 29.4 g/dL (31-35); MEAN CORPUSCULAR VOLUME 86.4 fL (81-99); MONOCYTES % 9.7 % (4.4-11.3); NEUTROPHILS # (AUTO) 7.7 (2.1-6.9); NEUTROPHILS % 78.3 % (38.7-80.0); PLATELET COUNT 244 x10e3/uL (140-360); RED BLOOD COUNT 3.74 x10e6/uL (4.3-5.7); RED CELL DISTRIBUTION WIDTH 17.8 % (11.7-14.4)
[2019-03-04 05:10] LABS: INR 1.27; PROTHROMBIN TIME 16.5 seconds (11.9-14.5)
[2019-03-04 05:21] LABS: ANION GAP 11.7 mmol/L (8-16); BLOOD UREA NITROGEN 16 mg/dL (7-26); BUN/CREATININE RATIO 22 (6-25); CALCIUM 8.5 mg/dL (8.4-10.2); CHLORIDE 90 mmol/L (98-107); CREATININE, SERUM 0.72 mg/dL (0.72-1.25); EST GLOMERULAR FILTRATION RATE > 60 ML/MIN (60-); GLUCOSE 99 mg/dL (74-118); POTASSIUM 3.7 mmol/L (3.5-5.1); SODIUM 141 mmol/L (136-145)
[2019-03-04 05:22] LABS: CARBON DIOXIDE 43 mmol/L (22-29)
--- NOTE | 2019-03-04 06:21 | NUR ---
called and spoke with dr Garcia, reported lab result, CO2 this morning is 43;no order obtained. patient is stable, will continue to monitor.
[2019-03-04] MEDS: MIDODRINE HCL 5 MG TABLET PO SCH ×3 (08:00→16:00)
[2019-03-04] MEDS: PANTOPRAZOLE SODIUM 40 MG SUSPDR.PKT PO SCH (08:30)
[2019-03-04] MEDS: FAMOTIDINE 20 MG TAB PO SCH ×2 (08:30→16:09)
[2019-03-04] MEDS: MONTELUKAST SODIUM 10 MG TAB PO SCH (08:57)
[2019-03-04] MEDS: ESCITALOPRAM OXALATE 10 MG TAB PO SCH (08:57)
[2019-03-04] MEDS: DULOXETINE HCL 20 MG DELAYED RELEASE PO SCH (08:57)
[2019-03-04] MEDS: FUROSEMIDE INJ 10 MG/ML 4 ML VIAL IV SCH (08:57)
[2019-03-04] MEDS: WARFARIN SOD 3 MG TAB PO SCH (08:57)
[2019-03-04] MEDS: DOCUSATE SODIUM 100 MG CAP PO SCH ×2 (08:57→16:09)
[2019-03-04] MEDS: ASPIRIN 81 MG CHEW TAB PO SCH (08:57)
[2019-03-04] MEDS: CITALOPRAM HYDROBROMIDE 20 MG TAB PO SCH (08:57)
[2019-03-04] MEDS: LEVETIRACETAM 500 MG TAB PO SCH ×2 (08:57→16:09)
[2019-03-04] MEDS: PREDNISONE 20 MG TAB PO SCH (08:57)
[2019-03-04] MEDS: THEOPHYLLINE 200 MG TABCR PO SCH (08:58)
[2019-03-04] MEDS: NICOTINE 21 MG/EA PATCH TOP SCH (08:58)
[2019-03-04] MEDS: CYANOCOBALAMIN 1,000 MCG TAB PO SCH (08:58)
[2019-03-04] MEDS: BUDESONIDE/FORMOTEROL 160/4.5MCG INHALER INH SCH ×2 (09:36→19:20)
[2019-03-04] MEDS: TIOTROPIUM 18 MCG INH POWDER INH SCH (09:36)
--- NOTE | 2019-03-04 11:52 | NUR ---
Pulmonary Medicine Date of encounter: 03/04/2019 SUBJECTIVE: eating well BM yesterday patient walked the [place] , no presyncope just SOB 3 l/min oxygen REVIEW OF SYSTEMS: no bleeding, no rash OBJECTIVE: VITAL SIGNS: vital signs per the chart record. GENERAL: Mild secondary respiratory muscles in use again. In bed HEENT: Normocephalic, atraumatic. NECK: Supple. Throat midline. LUNGS: Bilateral air entry decreased. Limited evaluation. No lakhwinder wheezing CARDIOVASCULAR: S1, S2. No murmurs, rubs, or gallops. ABDOMEN: Soft, nontender. EXTREMITIES: No clubbing. No cyanosis. Trace edema. INTEGUMENT: No rash. No purpura. LABORATORY DATA: yesterday k 4.2, cr 0.66, wbc 17 IMPRESSION AND PLAN: 1. Abnormal chest radiography, healthcare associated pneumonia acquired prior to admission. 2. Abnormal chest radiography, possible fluid overload. 3. Chronic obstructive pulmonary disease with exacerbation. 4. Chronic respiratory failure, hypoxemic/hypercapnic. 5. Anxiety disorder. 6. History of cerebrovascular accident. 7. Associated chronic right basilar atelectasis/scarring, s/p unremarkable bronchoscopy October 2016 8. Active smoking one pack per day. 9. Asthma, coexisting per history 10. Atrial fibrillation. 11. Coronary artery disease, RCA 40%. 12. Depression. 13. Gastroesophageal reflux disease. 14. Hypertension. Continue bronchodilators Steroids, wean Theophylline N-acetylcysteine PO BID exterminator azithromycin aggressive PT and rehabilitation. The patient is recommended for smoking cessation, but he is not ready to quit. He will not tolerate home NIV, as tried in the past Diuretics trial Cardiology consulted to optimize condition and PPM hx Thank you very much, Dr. Marin, for allowing me a chance to participate in the care of Mr. Castañeda. Please do not hesitate to contact me if I can help in any way.
[2019-03-04] MEDS: HYDROCODONE/APAP 5MG-325MG TAB PO PRN (13:46)
[2019-03-04] MEDS: ACETYLCYSTEINE 200 MG/ML 4ML VIAL PO SCH (16:09)
--- NOTE | 2019-03-04 19:07 | NUR ---
PATIENT IN BED RECEIVING BREATHING TREATMENT, AWAKE ALERT ORIENTED, NO DISTRESS NOTED, WILL CONTINUE TO MONITOR.
[2019-03-04] MEDS: ACETAMINOPHEN/CODEINE 300MG - 30MG TAB PO PRN (19:50)
[2019-03-04] MEDS: ATORVASTATIN 20 MG TAB PO SCH (21:06)
[2019-03-04] MEDS: CLOPIDOGREL BISULFATE 75 MG TAB PO SCH (21:06)
[2019-03-04] MEDS: MIRTAZAPINE 15 MG TAB PO SCH (21:07)
[2019-03-04] MEDS: QUETIAPINE FUMARATE 25 MG TAB PO SCH (21:07)
[2019-03-05 00:10] VITALS: BP 140/92
[2019-03-05] MEDS: HYDROCODONE/APAP 5MG-325MG TAB PO PRN (00:32)
--- NOTE | 2019-03-05 00:41 | NUR ---
PATIENT WAS RESTING, CLOSED EYES AND NO S/S OF DISTRESS. HE WAS AWAKEN WHEN NURSE PUT BLOOD PRESSURE CUFF ON. 5 MINS LATER HE CALLED STATED THAT HE HAD HEADACHE AND CHEST PAIN, EPISODES OF AGITATIONS NOTED, THEN HE TOOK PRN PAIN MEDICINE. WILL CONTINUE TO MONITOR.
--- NOTE | 2019-03-05 01:14 | NUR ---
PATIENT WAS ASKING FOR SANDWICH AND SNACKS AT THIS TIME, HE EATS AND TOLERATED WELL, NO SIGNS AND SYMPTOMS OF DISCOMFORT.
--- NOTE | 2019-03-05 01:51 | Progress Note ---
DATE: 03/04/2019 Cardiology Progress Note SUBJECTIVE: The patient continues to endorse chest pain and shortness of breath. OBJECTIVE: VITAL SIGNS: Temperature 97 degrees, pulse 72, respiratory rate 22, blood pressure 125/80, oxygen saturation 100% on 3 L nasal cannula. GENERAL: Awake, alert, in no acute distress. LUNGS: Clear to auscultation bilaterally. No wheezes or crackles. CARDIOVASCULAR: Normal rate. Regular rhythm. No murmur. Normal S1, S2. ABDOMEN: Soft, nontender. EXTREMITIES: No edema. CARDIAC MEDICATIONS: Plavix 75 mg p.o. daily, atorvastatin 20 mg p.o. at bedtime, furosemide 40 mg IV daily, warfarin 9 mg p.o. daily, aspirin 81 mg p.o. daily. LABORATORY DATA: WBC 9.8, hemoglobin 9.5, hematocrit 32.3, platelets 244. INR 1.27. Sodium 141, potassium 3.7, chloride 90, CO2 of 43, BUN 16, and creatinine 0.72. TELEMETRY: V-paced. IMPRESSION: 1. Pneumonia. 2. Dncyx-xw-prefhqj systolic heart failure. 3. Chest pain. 4. Chronic obstructive pulmonary disease exacerbation. 5. 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 6. Left bundle-branch block. 7. Permanent pacemaker. 8. History of cerebrovascular accident. 9. Left carotid artery stenosis status post stent. 10. Atrial fibrillation/flutter. 11. Hypertension. 12. Tobacco use. RECOMMENDATIONS: The patient ruled out for myocardial infarction with serial cardiac biomarkers. No further cardiac evaluation is indicated at this time as he has had extensive cardiac evaluation earlier this year. Continue diuresis. No rising CO2, likely approaching euvolemic. Monitor volume status closely. Treatment of pneumonia and COPD exacerbation per Pulmonary. Continue current cardiac medications. INR remains subtherapeutic, but rising. We will continue to monitor closely. The patient's blood pressure is for the most part adequately controlled, although labile. Thank you for this consult. We will continue to follow. Lisa Marsh MD ABS/MODL /[id number]
[2019-03-05] MEDS: ALBUTEROL/IPRATROPIUM 3 ML NEB NEB SCH ×3 (03:00→11:20)
[2019-03-05] MEDS: CEFEPIME 1GM/NS 0.9% 50 ML 50 ML IV SCH (03:24)
[2019-03-05 04:00] VITALS: BP 147/107
[2019-03-05] MEDS: ACETAMINOPHEN/CODEINE 300MG - 30MG TAB PO PRN ×2 (04:08→10:00)
[2019-03-05 05:16] LABS: BASOPHILS % 0.1 % (0.0-1.0); HEMATOCRIT 34.1 % (38.2-49.6); LYMPHOCYTES # (AUTO) 1.3 (1.0-3.2); LYMPHOCYTES % 12.8 % (18.0-39.1); MEAN CORPUSCULAR HEMOGLOBIN 25.3 pg (28-32); MEAN CORPUSCULAR HGB CONC 29.3 g/dL (31-35); MEAN CORPUSCULAR VOLUME 86.1 fL (81-99); MONOCYTES # (AUTO) 0.8 (0.2-0.8); MONOCYTES % 8.3 % (4.4-11.3); NEUTROPHILS # (AUTO) 7.9 (2.1-6.9); NEUTROPHILS % 78.3 % (38.7-80.0); PLATELET COUNT 244 x10e3/uL (140-360); RED BLOOD COUNT 3.96 x10e6/uL (4.3-5.7); RED CELL DISTRIBUTION WIDTH 17.4 % (11.7-14.4)
[2019-03-05 05:26] LABS: INR 1.62; PROTHROMBIN TIME 19.9 seconds (11.9-14.5)
[2019-03-05 05:35] LABS: ANION GAP 10.1 mmol/L (8-16); BLOOD UREA NITROGEN 16 mg/dL (7-26); BUN/CREATININE RATIO 23 (6-25); CALCIUM 8.8 mg/dL (8.4-10.2); CHLORIDE 93 mmol/L (98-107); EST GLOMERULAR FILTRATION RATE > 60 ML/MIN (60-); GLUCOSE 88 mg/dL (74-118); POTASSIUM 4.1 mmol/L (3.5-5.1); SODIUM 140 mmol/L (136-145)
[2019-03-05 05:37] LABS: CARBON DIOXIDE 41 mmol/L (22-29)
--- NOTE | 2019-03-05 05:42 | NUR ---
lab called for Co2 result, its 41 this morning, Carline WILLIS is around and she is aware. no order obtained.
[2019-03-05] MEDS ORDERED: ZITHROMAX250 MG PO ×2 (06:05→11:33)
[2019-03-05] MEDS ORDERED: CEFDINIR300 MG PO (06:05)
--- NOTE | 2019-03-05 06:26 | Diagnostic Imaging Report ---
EXAMINATION: CHEST SINGLE (PORTABLE) INDICATION: CHF COMPARISON: Chest radial at 03/03/2019 FINDINGS: AP view TUBES and LINES: Left chest wall cardiac device with leads in the right atrium and right ventricle.. LUNGS: Lungs are well inflated. Improved aeration of the lungs. No consolidations. Slightly prominent pulmonary interstitium. Pulmonary vascular congestion. Scattered calcified granulomata. PLEURA: No pleural effusion or pneumothorax. HEART AND MEDIASTINUM: Cardiac size is mildly enlarged. BONES AND SOFT TISSUES: No acute osseous lesion. Soft tissues are unremarkable. UPPER ABDOMEN: No free air under the diaphragm. IMPRESSION: Mild cardiomegaly with pulmonary vascular congestion. Mild interstitial pulmonary edema is possible. Signed by: Zack Thompson DO on 03/05/2019 6:23 AM
[2019-03-05 07:00] VITALS: BP 120/86
[2019-03-05] MEDS: BUDESONIDE/FORMOTEROL 160/4.5MCG INHALER INH SCH (07:08)
[2019-03-05] MEDS: TIOTROPIUM 18 MCG INH POWDER INH SCH (07:08)
[2019-03-05] MEDS: ASPIRIN 81 MG CHEW TAB PO SCH (08:11)
[2019-03-05] MEDS: ACETYLCYSTEINE 200 MG/ML 4ML VIAL PO SCH (08:11)
[2019-03-05] MEDS: FAMOTIDINE 20 MG TAB PO SCH (08:11)
[2019-03-05] MEDS: MIDODRINE HCL 5 MG TABLET PO SCH ×2 (08:11→12:00)
[2019-03-05] MEDS: FUROSEMIDE INJ 10 MG/ML 4 ML VIAL IV SCH (08:11)
[2019-03-05] MEDS: PANTOPRAZOLE SODIUM 40 MG SUSPDR.PKT PO SCH (08:11)
[2019-03-05] MEDS: PREDNISONE 20 MG TAB PO SCH (08:12)
[2019-03-05] MEDS: NICOTINE 21 MG/EA PATCH TOP SCH (08:12)
[2019-03-05] MEDS: LEVETIRACETAM 500 MG TAB PO SCH (08:12)
[2019-03-05] MEDS: DOCUSATE SODIUM 100 MG CAP PO SCH (08:12)
[2019-03-05] MEDS: ESCITALOPRAM OXALATE 10 MG TAB PO SCH (08:12)
[2019-03-05] MEDS: DULOXETINE HCL 20 MG DELAYED RELEASE PO SCH (08:12)
[2019-03-05] MEDS: WARFARIN SOD 3 MG TAB PO SCH (08:12)
[2019-03-05] MEDS: CITALOPRAM HYDROBROMIDE 20 MG TAB PO SCH (08:12)
[2019-03-05] MEDS: THEOPHYLLINE 200 MG TABCR PO SCH (08:12)
[2019-03-05] MEDS: CYANOCOBALAMIN 1,000 MCG TAB PO SCH (08:12)
[2019-03-05] MEDS: MONTELUKAST SODIUM 10 MG TAB PO SCH (08:12)
[2019-03-05 08:36] VITALS: BP 120/86
[2019-03-05] MEDS ORDERED: PNEUMOCOCCAL VACCINE POLYVALENT 23 MCG/0.5 ML VIAL IM SCH ×2 (09:00→12:15)
[2019-03-05] MEDS ORDERED: AZITHROMYCIN 250 MG TAB PO SCH (09:00)
[2019-03-05] MEDS ORDERED: INFLUENZA VIRUS VAC SPLIT INJ 0.5 ML SYR IM SCH ×2 (09:00→12:15)
[2019-03-05 11:00] VITALS: BP 137/87
[2019-03-05] MEDS ORDERED: N-ACETYL-L-CYS600 MG PO (11:33)
[2019-03-05] MEDS ORDERED: THEOPHYLLINE400 M1 PO (11:33)
--- NOTE | 2019-03-05 11:40 | NUR ---
Pulmonary Medicine Date of encounter: 03/05/2019 SUBJECTIVE: patient with sob on any activity out of bed approaching baseline eats BM REVIEW OF SYSTEMS: no bleeding, no rash OBJECTIVE: VITAL SIGNS: vital signs per the chart record. GENERAL: NAD, alert/calm HEENT: Normocephalic, atraumatic. NECK: Supple. Throat midline. LUNGS: Bilateral air entry decreased. Limited evaluation. No lakhwinder wheezing CARDIOVASCULAR: S1, S2. No murmurs, rubs, or gallops. ABDOMEN: Soft, nontender. EXTREMITIES: No clubbing. No cyanosis. Trace edema. INTEGUMENT: No rash. No purpura. LABORATORY DATA: k 4.1, hco3 41, cr 0.70, wbc 10, hct 34 IMPRESSION AND PLAN: 1. Abnormal chest radiography, healthcare associated pneumonia acquired prior to admission. 2. Abnormal chest radiography, possible fluid overload. 3. Chronic obstructive pulmonary disease with exacerbation. 4. Chronic respiratory failure, hypoxemic/hypercapnic. 5. Anxiety disorder. 6. History of cerebrovascular accident. 7. Associated chronic right basilar atelectasis/scarring, s/p unremarkable bronchoscopy October 2016 8. Active smoking one pack per day. 9. Asthma, coexisting per history 10. Atrial fibrillation. 11. Coronary artery disease, RCA 40%. 12. Depression. 13. Gastroesophageal reflux disease. 14. Hypertension. Continue bronchodilators Steroids, wean Theophylline N-acetylcysteine PO BID snf azithromycin aggressive PT and rehabilitation. The patient is recommended for smoking cessation, but he is not ready to quit. He will not tolerate home NIV, as tried in the past Light diuretics Cardiology consulted to optimize condition and PPM hx Thank you very much, Dr. Marin, for allowing me a chance to participate in the care of Mr. Castañeda. Please do not hesitate to contact me if I can help in any way.
--- NOTE | 2019-03-05 12:36 | NUR ---
Auto Electrical Technician informed patient became short of breath and had chest pain while walking back from bathroom. Dr. Garcia ok with discharging patient today. Carline WILLIS informed and gave orders to discharge. Updated discharge medication reconciliation faxed to [facility], facility confirmed they received fax. Patient given prescriptions for new medications (copy in chart). Patient instructed to follow up with PCP in 3 weeks. Patient does not appear to be in any distress at this time. Awaiting [facility] to warehouse order picker patient.
--- NOTE | 2019-03-05 13:12 | NUR ---
ORDERS FOR HOME HEALTH CARE REC'D CHOICE LETTER FOR [facility] SIGNED BY PT (IN NETWORK WITH TRS) [phone] FAXED CLINICAL TO [phone] ALTON COLON WILL COME PICK PT UP AND TAKE HIM BACK HOME SPOKE WITH LEAH AT [employer] [phone] NURSE NOEMI HAS LEAH'S NAME AND NUMBER AND WILL F/U ON TRANSPORTATION
--- NOTE | 2019-03-05 21:36 | Progress Note ---
DATE: 03/05/2019 Cardiology Progress Note SUBJECTIVE: The patient continues to have chest pain and shortness of breath, although slightly improved. OBJECTIVE: VITAL SIGNS: Temperature 98.2 degrees, pulse 73, respiratory rate 21, blood pressure 137/87, and oxygen saturation 100% on 3 liters nasal cannula. GENERAL: Awake, alert, in no acute distress. LUNGS: Clear to auscultation bilaterally. No wheezes or crackles. CARDIOVASCULAR: Normal rate, regular rhythm. No murmur. Normal S1 and S2. ABDOMEN: Soft and nontender. EXTREMITIES: No edema. CARDIAC MEDICATIONS: 1. Warfarin 9 mg p.o. daily. 2. Furosemide 40 mg IV daily. 3. Aspirin 81 mg p.o. daily. 4. Plavix 75 mg p.o. daily. 5. Atorvastatin 20 mg p.o. at bedtime. LABORATORY DATA: WBC 10.1, hemoglobin 10, hematocrit 34, and platelets 244. Sodium 140, potassium 4.1, chloride 93, CO2 of 41, BUN 15, and creatinine 0.7. TELEMETRY: V-paced. IMPRESSION: 1. Pneumonia. 2. Acute on chronic systolic heart failure. 3. Chest pain. 4. Chronic obstructive pulmonary disease exacerbation. 5. 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 6. Left bundle-branch block. 7. Permanent pacemaker. 8. History of cerebrovascular accident. 9. Left carotid artery stenosis, status post stent. 10. Atrial fibrillation/flutter. 11. Hypertension. 12. Tobacco use. RECOMMENDATIONS: The patient ruled out for myocardial infarction with serial cardiac biomarkers. The patient has had extensive cardiac evaluation earlier this year. No further cardiac evaluation is indicated at this time. Continue warfarin for CVA prophylaxis. INR is rising. We will continue to monitor. Continue diuresis. Would benefit from Lasix upon discharge as well. Follow creatinine. Replete electrolytes. Monitor volume status closely. Treatment of pneumonia and COPD exacerbation per Pulmonary. Continue current cardiac medications otherwise as the patient's blood pressure for the most part controlled. Thank you for this consult. We will continue to follow. Lisa Marsh MD ABS/MODL /[id number]
--- NOTE | 2019-03-06 04:23 | Discharge Summary ---
ADMISSION DIAGNOSES: Gedeg-sv-jitdjhj systolic congestive heart failure, acute exacerbation of COPD with hypercapnia and hypoxia, pneumonia with sepsis, anxiety, depression, history of coronary artery disease, anemia. DISCHARGE DIAGNOSES: Exgyc-pr-piqlozy systolic congestive heart failure, acute exacerbation of COPD with hypercapnia and hypoxia, pneumonia with sepsis, anxiety, depression, history of coronary artery disease, anemia. HISTORY: COPD, chronic systolic CHF, CVA, AR, anxiety, depression, seizure, anemia, CAD with stents. SURGICAL HISTORY: Pacer and PCI x1. FAMILY HISTORY: Noncontributory. SOCIAL HISTORY: Occasional alcohol use and the patient smokes 1 pack cigarettes a day. HOSPITAL COURSE: A 63-year-old male admits with complaints of chest pain and shortness of breath/wheezing. Chest pain began yesterday while lying down. The chest pain was a sharp pressure, which lasted a few minutes. He has associated shortness of breath and diaphoresis. He denies fever and cough. He uses 3 L/minute at home nasal cannula and has chronic wheezing. On admission, troponins were negative x5. The patient's pacer was interrogated, which has a battery life of 7 more years. Echo showed an EF of 55% to 60%. EKG showed V paced at a rate of 71. Chest x-ray showed bilateral interstitial edema. Pulmonology was consulted. The patient was started on Lasix IV, cefepime, Zithromax, nebs, and Solu-Medrol IV. After few days, the patient is feeling better. While in the hospital, the patient attempted to go AMA after he was unable to get any more IV morphine once ACS was ruled out. He has threatened that if we did not give him morphine that he would go outside to smoke. We instructed him that if he goes outside to smoke that he would be leaving against medical advice. At the time of discharge, the patient was given a new prescription for Zithromax and Omnicef. He will continue the same hospital medications and new med list was faxed to his assisted living facility as the med rec that they sent to us was incorrect on admission. Vital signs stable, the patient afebrile. Pulmonary okay with discharge. The patient will follow up with primary care and Pulmonary in 1 to 2 weeks. The patient understands discharge instructions and agrees to plan. Dictated by Carline M [place], GERM DRIER MD TARA Botello/BERNABE /[id number]
[2019-03-08] MEDS ORDERED: AZITHROMYCIN 250 MG TAB PO SCH (09:00)
== END 2019-03-05 14:00 | disposition home health service (06) | DRG 871 ==
LOC: ER 11:41 → ERHOLD 14:29 → ICU 20:02 → IMCU 03-02 22:30
PROVIDERS: ADMIT Internal Medicine; ATTEND Internal Medicine
DX: A41.9 Sepsis, unspecified organism (principal); J96.22 Acute and chronic respiratory failure with hypercapnia; J96.21 Acute and chronic respiratory failure with hypoxia; J18.9 Pneumonia, unspecified organism; I50.23 Acute on chronic systolic (congestive) heart failure; J44.1 Chronic obstructive pulmonary disease with (acute) exacerbation; J44.0 Chronic obstructive pulmonary disease with (acute) lower respiratory infection; I69.354 Hemiplegia and hemiparesis following cerebral infarction affecting left non-dominant side; I11.0 Hypertensive heart disease with heart failure; D50.0 Iron deficiency anemia secondary to blood loss (chronic); F41.9 Anxiety disorder, unspecified; I44.7 Left bundle-branch block, unspecified; Z95.0 Presence of cardiac pacemaker; I25.10 Atherosclerotic heart disease of native coronary artery without angina pectoris; F32.9 Major depressive disorder, single episode, unspecified; K21.9 Gastro-esophageal reflux disease without esophagitis; F17.210 Nicotine dependence, cigarettes, uncomplicated; I48.0 Paroxysmal atrial fibrillation; Z79.01 Long term (current) use of anticoagulants
CPT/HCPCS: 36415; 36600; 71045; 76604; 80048; 80053; 80061; 81001; 82550; 82553; 82607; 82728; 82805; 83036; 83540; 83605; 83735; 83880; 84100; 84443; 84466; 84484; 85025; 85610; 85730; 87040; 87086; 90732; 93005; 93306; 94640; 94664; 99284; J0456; J0692; J1885; J1940; J2270; J2405; J2920; J2930; J7030; J7040; J7050; J7512

== ENCOUNTER 2019-04-02 17:37 | Inpatient (IN) | payer OTHER ==
[~2019-04-02] VITALS: Ht 182.9 cm; Wt 95.8 kg
[~2019-04-02 17:37] MED LIST changes: +ANORO ELLIPTA1 EACH IH; +N-ACETYL-L-CYS600 MG PO; +THEOPHYLLINE400 M1 PO; +ZITHROMAX250 MG PO
[2019-04-02 18:31] LABS: BASOPHILS % 0.1 % (0.0-1.0); EOSINOPHILS % 0.3 % (0.0-6.0); HEMATOCRIT 30.6 % (38.2-49.6); HEMOGLOBIN 8.9 g/dL (14.0-18.0); LYMPHOCYTES % 17.3 % (18.0-39.1); MEAN CORPUSCULAR HEMOGLOBIN 24.9 pg (28-32); MEAN CORPUSCULAR HGB CONC 29.1 g/dL (31-35); MEAN CORPUSCULAR VOLUME 85.7 fL (81-99); MONOCYTES # (AUTO) 1.3 (0.2-0.8); MONOCYTES % 11.5 % (4.4-11.3); NEUTROPHILS % 70.2 % (38.7-80.0); PLATELET COUNT 234 x10e3/uL (140-360); RED BLOOD COUNT 3.57 x10e6/uL (4.3-5.7); RED CELL DISTRIBUTION WIDTH 15.7 % (11.7-14.4)
[2019-04-02 18:38] LABS: INR 0.99; PARTIAL THROMBOPLASTIN TIME 31.5 seconds (23.8-35.5); PROTHROMBIN TIME 13.6 seconds (11.9-14.5)
[2019-04-02 18:47] LABS: ALANINE AMINOTRANSFERASE 8 IU/L (0-55); ALBUMIN/GLOBULIN RATIO 0.9 (0.8-2.0); ALKALINE PHOSPHATASE 79 IU/L (40-150); ANION GAP 12.4 mmol/L (8-16); BLOOD UREA NITROGEN 11 mg/dL (7-26); BUN/CREATININE RATIO 17 (6-25); CALCIUM 8.6 mg/dL (8.4-10.2); CARBON DIOXIDE 32 mmol/L (22-29); CHLORIDE 97 mmol/L (98-107); CREATINE KINASE 26 IU/L (30-200); CREATININE, SERUM 0.66 mg/dL (0.72-1.25); EST GLOMERULAR FILTRATION RATE > 60 ML/MIN (60-); GLUCOSE 98 mg/dL (74-118); POTASSIUM 3.4 mmol/L (3.5-5.1); SODIUM 138 mmol/L (136-145)
[2019-04-02] MEDS ORDERED: ASPIRIN 81 MG CHEW TAB PO ONE (19:13)
[2019-04-02] MEDS ORDERED: SODIUM CHLORIDE 0.9% 1000ML 1,000 ML IV STA (19:13)
[2019-04-02] MEDS ORDERED: ONDANSETRON HCL INJ 2MG/ML 2ML 2 MG/ML VIAL IV ONE (19:17)
--- NOTE | 2019-04-02 19:23 | Diagnostic Imaging Report ---
EXAMINATION: CHEST 2 VIEWS INDICATION: Chest pain, shortness of breath ^CP ^[id number] ^1855 COMPARISON: Chest x-ray 03/05/2019 FINDINGS: PA and lateral views TUBES and LINES: Dual-lead pacemaker wires terminate in the right atrium and right ventricle and are stable in position. LUNGS/PLEURA: Diffuse hyperinflation consistent with COPD. Pulmonary vascular markings are prominent but stable. There is thickening of the lateral right pleura blunting of the right lateral costophrenic angle. No evidence of left pleural effusion. No pneumothorax. HEART AND MEDIASTINUM: Stable cardiomegaly. BONES AND SOFT TISSUES: No focal osseous lesions. Soft tissues are unremarkable. UPPER ABDOMEN: Unremarkable. IMPRESSION: New thickening of the right pleura. Small, Loculated effusion in the right lateral costophrenic angle cannot be excluded. Cardiomegaly and chronic pulmonary vascular congestion. Primary hyperinflation consistent with COPD. Signed by: Dr. Lisa Palma MD on 04/02/2019 7:20 PM
[2019-04-02 19:41] LABS: BILIRUBIN,URINE NEGATIVE (NEGATIVE); CLARITY,URINE SL CLOUDY (CLEAR); COLOR,URINE YELLOW (YELLOW); KETONES,URINE NEGATIVE (NEGATIVE); LEUKOCYTE ESTERASE ,URINE NEGATIVE (NEGATIVE); NITRITE,URINE NEGATIVE (NEGATIVE); PROTEIN,URINE DIPSTICK NEGATIVE (NEGATIVE); URINE UROBILINOGEN 1 mg/dL (0.2 - 1)
[2019-04-02 19:46] LABS: BACTERIA,URINE FEW /HPF; EPITHELIAL CELLS,URINE FEW /LPF; RBC,URINE 0-5 /HPF (0-5); WBC,URINE (MAN) 0-5 /HPF (0-5)
[2019-04-02] MEDS ORDERED: ONDANSETRON HCL INJ 2MG/ML 2ML 2 MG/ML VIAL IV PRN (20:15)
[2019-04-02] MEDS ORDERED: MORPHINE SULFATE 2 MG/ML SYR 1ML IV PRN (20:15)
[2019-04-02] MEDS: MORPHINE SULFATE INJ 4 MG/ML INJ 1ML IV PRN (20:43)
[2019-04-02 22:10] LABS: ABG PH 7.32 (7.31-7.41)
[2019-04-02 22:11] LABS: ABG HCO3 34 mmol/L (23-28); ABG PCO2 65 mmHg (41-51); ABG PO2 30 mmHg (80-105)
[2019-04-02 23:30] VITALS: BP 104/75
--- NOTE | 2019-04-02 23:45 | NUR ---
Patient received via stretcher from ER. AAO x 3. Patient had no complaints of pain. Respirations even and non-labored on 4L NC. Admission history obtained. Initial physical assessment performed. Patient oriented to room, call light, visiting hours and plan of care. Fall precautions implemented. Patient instructed to call for assistance when needed. Call light within reach.
[2019-04-03] VITALS (8 sets, daily range): BP systolic 105–144; BP diastolic 56–74
[2019-04-03] MEDS: ALBUTEROL/IPRATROPIUM 3 ML NEB NEB SCH ×6 (00:55→23:02)
--- NOTE | 2019-04-03 02:25 | NUR ---
Blood specimen sent to lab for analysis of cardiac enzymes.
[2019-04-03 03:25] LABS: CREATINE KINASE MB 1.8 ng/mL (0-5.0)
[2019-04-03] MEDS: MORPHINE SULFATE INJ 4 MG/ML INJ 1ML IV PRN ×4 (04:59→21:38)
--- NOTE | 2019-04-03 05:20 | NUR ---
Patient complained of chest pain (8/10) radiating to left arm. Morphine administered per eMAR. Respiratory Therapist paged for EKG. Will continue to monitor.
--- NOTE | 2019-04-03 06:09 | NUR ---
EKG rhythm recorded as "V-Paced " with a HR of 70 bpm. Patient denies chest pain or discomfort at this time.
--- NOTE | 2019-04-03 06:14 | NUR ---
Dr. Randal Snow notified of routine "consult'. Reason: Chest pain.
--- NOTE | 2019-04-03 07:00 | NUR ---
Walking rounds done. Patient denies pain. Report given to oncoming nurse.
--- NOTE | 2019-04-03 07:10 | NUR ---
Received patient lying in bed with eyes open. Denies pain at this time. Respiration even and unlabored without SOB. Call light in reach.
[2019-04-03 07:42] LABS: CREATINE KINASE MB 2.3 ng/mL (0-5.0)
[2019-04-03] MEDS ORDERED: NITROGLYCERIN 0.4 MG SUBL SL SCH (09:45)
[2019-04-03] MEDS: CEFTRIAXONE SOD 1 GM/NS 50 ML 50 ML IV SCH (09:53)
[2019-04-03] MEDS: CITALOPRAM HYDROBROMIDE 20 MG TAB PO SCH (10:17)
[2019-04-03] MEDS: DULOXETINE HCL 20 MG DELAYED RELEASE PO SCH (10:19)
[2019-04-03] MEDS: FOLIC ACID 1 MG TAB PO SCH (10:19)
[2019-04-03] MEDS: MIDODRINE HCL 5 MG TABLET PO SCH ×2 (10:21→17:13)
[2019-04-03] MEDS: ESCITALOPRAM OXALATE 10 MG TAB PO SCH (10:21)
[2019-04-03] MEDS: PREDNISONE 5 MG TAB PO SCH (10:27)
[2019-04-03] MEDS: PANTOPRAZOLE SOD 40 MG TABEC PO SCH (10:27)
--- NOTE | 2019-04-03 12:14 | Consultation ---
DATE OF CONSULTATION: Cardiac Consultation REASON FOR CONSULTATION: Chest pain. HISTORY: Mr. Castañeda is a 63-year-old man, who is known to me over the years. Last admission, he was seen by another associate dean of students, but regardless, the man is coming back and forth to the hospital. He is 63, heavy smoker, advanced COPD with advanced lung disease. Furthermore, he had a pacemaker implantation. He does have chronic atrial fibrillation. He is noncompliant at all with any medication. He is not compliant with any followup. He continues to smoke a one-pack a day. He continues to drink alcohol whenever he can. The patient is really truly poorly historian. His main problem is shortness of breath, very vague chest pain, admitted. His BNP is 509. His cardiac enzymes are normal. Of note, the patient had a cardiac catheterization with anomaly of the LAD from the right coronary artery as per record. This cath was done in [facility]. The patient is doing well now. He is not ready to go home because he is having some shortness of breath and not feeling so well. His main problem is wheezes and difficulty breathing, and he does have this very vague chest pain. He is supposed to be on anticoagulation, but in his MAR, he is on Plavix and warfarin, but his INR is only 1. Regardless, cardiac consultation is obtained. I visited with the patient, whom doing relatively better today. He does have his usual symptoms of chest pain, shortness of breath, not feeling very well, aches and pain, etc. There is no definite angina. There is no pleuritic or pericarditic component of chest pain. He does have his usual shortness of breath. He is dependent on oxygen. He does have chronic hypoxemia. PAST MEDICAL HISTORY: 1. COPD, on oxygen. 2. Anxiety. 3. Coronary artery disease as per record prior PCI, questionable details. 4. 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 5. History of atrial fibrillation. 6. Pacemaker implantation. 7. Degenerative joint disease. 8. Aches and pain. 9. The patient needs to walk with a cane because of his degenerative joint disease. SOCIAL HISTORY: Staying in [place]. He is heavy smoker. He is still drinking. He is unemployed for many years. CURRENT MEDICATIONS: Include Lasix 40 mg twice a day, lisinopril 2.5 mg a day, metoprolol 12.5 mg twice a day, Lipitor 20 mg a day, Plavix 75 mg a day, warfarin 9 mg a day, Keppra 500 mg twice a day, Symbicort, Spiriva, cetirizine, Singulair, nebulizer, and other p.r.n. medication. ALLERGIES: NONE. FAMILY HISTORY: No family history of premature coronary artery disease. PHYSICAL EXAMINATION: VITAL SIGNS: Height of 6 feet, weight of 211 pounds, blood pressure 106/70, heart rate of 70, respiratory rate of 18, and temperature of 98 Fahrenheit. HEENT: Pupils are reactive. CHEST: Pacemaker noted in place. Decreased lung expansion. Crackles. HEART: PMI 5th left intercostal space. Increased in intensity of second heart sound. ABDOMEN: Soft with good bowel sounds. No organomegaly. No abdominal bruits. EXTREMITIES: No cyanosis. No clubbing. No edema. NEUROLOGIC: Awake, alert, and oriented. No motor or sensory deficits. LABORATORY DATA: Sodium of 138, potassium of 3.4, BUN of 11, creatinine of 0.86, and glucose of 98. White blood cell count of 11.4, hemoglobin of 8.9, hematocrit 30%, and platelet count of 234,000. BNP of 509. Chest x-ray showing evidence of COPD with hyperinflated lung. ABG showed pH of 7.32, pCO2 of 65, and pO2 of 30 on room air. EKG showing pacing rhythm. IMPRESSION AND PLAN: 1. Chronic obstructive pulmonary disease with home oxygen dependency and chronic hypoxemia. 2. Heavy smoker. 3. History of coronary artery disease. 4. Anomalous coronary. 5. Status post pacemaker implantation. 6. BNP of 509. 7. Anxiety. 8. Depression. 9. Pulmonary hypertension. 10. Poor compliance. 11. Degenerative joint disease with abnormal gait. Cardiac melendez, my recommendation will be to continue his home medications to evaluate his condition and to see how well he is progressing. Pending on his course, further steps to be done. MD LILO Jansen/BERNABE /[id number]
[2019-04-03] MEDS: METHYLPREDNISOLONE SOD SUCC 40 MG/ML VIAL 1ML IV SCH ×2 (17:11→21:38)
[2019-04-03] MEDS: RANOLAZINE 500 MG TABSR PO SCH (17:12)
[2019-04-03] MEDS: FUROSEMIDE 40 MG TAB PO SCH (17:12)
[2019-04-03] MEDS: LEVETIRACETAM 500 MG TAB PO SCH (17:12)
[2019-04-03 17:53] LABS: CREATINE KINASE MB 2.5 ng/mL (0-5.0)
--- NOTE | 2019-04-03 19:10 | NUR ---
Report given to night nurse. Respiration even and unlabored without SOB. Call light in reach. Denies chest pain at this time.
--- NOTE | 2019-04-03 19:15 | NUR ---
Received patient from day nurse, patient stable. safety and fall precautions maintained: bed in lowest position and locked, needed items beside bed, call madsen close to patient.
[2019-04-03] MEDS: BUDESONIDE/FORMOTEROL 160/4.5MCG INHALER INH SCH (19:45)
[2019-04-03] MEDS: ATORVASTATIN 20 MG TAB PO SCH (20:35)
[2019-04-03] MEDS: QUETIAPINE FUMARATE 25 MG TAB PO SCH (20:36)
[2019-04-03] MEDS: CLOPIDOGREL BISULFATE 75 MG TAB PO SCH (20:36)
[2019-04-03] MEDS: MIRTAZAPINE 15 MG TAB PO SCH (20:36)
[2019-04-03] MEDS: MONTELUKAST SODIUM 10 MG TAB PO SCH (20:36)
[2019-04-03] MEDS: LORAZEPAM 0.5 MG TAB PO PRN (23:52)
[2019-04-04] VITALS (8 sets, daily range): BP systolic 96–142; BP diastolic 53–87
[2019-04-04] MEDS: ALBUTEROL/IPRATROPIUM 3 ML NEB NEB SCH ×6 (02:58→23:55)
[2019-04-04] MEDS: MORPHINE SULFATE INJ 4 MG/ML INJ 1ML IV PRN ×4 (03:15→20:10)
[2019-04-04] MEDS: METHYLPREDNISOLONE SOD SUCC 40 MG/ML VIAL 1ML IV SCH ×3 (05:32→21:29)
[2019-04-04 05:45] LABS: HEMATOCRIT 33.8 % (38.2-49.6); HEMOGLOBIN 9.5 g/dL (14.0-18.0); LYMPHOCYTES # (AUTO) 0.5 (1.0-3.2); LYMPHOCYTES % 7.6 % (18.0-39.1); MEAN CORPUSCULAR HEMOGLOBIN 24.9 pg (28-32); MEAN CORPUSCULAR HGB CONC 28.1 g/dL (31-35); MEAN CORPUSCULAR VOLUME 88.5 fL (81-99); MONOCYTES # (AUTO) 0.1 (0.2-0.8); MONOCYTES % 1.2 % (4.4-11.3); NEUTROPHILS # (AUTO) 5.4 (2.1-6.9); NEUTROPHILS % 90.5 % (38.7-80.0); PLATELET COUNT 231 x10e3/uL (140-360); RED BLOOD COUNT 3.82 x10e6/uL (4.3-5.7); RED CELL DISTRIBUTION WIDTH 15.6 % (11.7-14.4)
[2019-04-04 05:53] LABS: INR 0.96; PROTHROMBIN TIME 13.3 seconds (11.9-14.5)
[2019-04-04 06:09] LABS: ALANINE AMINOTRANSFERASE 8 IU/L (0-55); ALBUMIN/GLOBULIN RATIO 0.8 (0.8-2.0); ALKALINE PHOSPHATASE 76 IU/L (40-150); BLOOD UREA NITROGEN 9 mg/dL (7-26); BUN/CREATININE RATIO 13 (6-25); CALCIUM 9.2 mg/dL (8.4-10.2); CARBON DIOXIDE 36 mmol/L (22-29); CHLORIDE 99 mmol/L (98-107); CHOL/HDL RATIO 2.8 (3.9-4.7); CHOLESTEROL 139 MD/DL (0-199); CREATININE, SERUM 0.68 mg/dL (0.72-1.25); EST GLOMERULAR FILTRATION RATE > 60 ML/MIN (60-); GLUCOSE 144 mg/dL (74-118); HDL CHOLESTEROL 50 MG/DL (40-60); LDL CHOLESTEROL 79 MG/DL (60-130); SODIUM 142 mmol/L (136-145); TRIGLYCERIDES 51 MG/DL (0-149)
[2019-04-04 06:29] LABS: THYROID STIMULATING HORMONE 0.434 uIU/mL (0.350-4.940)
--- NOTE | 2019-04-04 06:55 | NUR ---
Received patient lying in bed with eyes closed. Respiration even and unlabored without SOB. Call light in reach.
[2019-04-04 06:58] LABS: HYPOCHROMASIA MODERATE; RBC MORPHOLOGY COMMENT ABNORMAL
--- NOTE | 2019-04-04 07:22 | NUR ---
patient endorsed to day nurse for continuity of care
[2019-04-04] MEDS: BUDESONIDE/FORMOTEROL 160/4.5MCG INHALER INH SCH ×3 (08:34→20:25)
[2019-04-04] MEDS ORDERED: TIOTROPIUM 18 MCG INH POWDER INH SCH (09:00)
[2019-04-04] MEDS: POTASSIUM CHLORIDE 10MEQ EA PO SCH (09:00)
[2019-04-04] MEDS: MIDODRINE HCL 5 MG TABLET PO SCH ×3 (09:08→16:03)
[2019-04-04] MEDS: CITALOPRAM HYDROBROMIDE 20 MG TAB PO SCH (09:08)
[2019-04-04] MEDS: PANTOPRAZOLE SOD 40 MG TABEC PO SCH (09:08)
[2019-04-04] MEDS: CEFTRIAXONE SOD 1 GM/NS 50 ML 50 ML IV SCH (09:08)
[2019-04-04] MEDS: ASPIRIN 81 MG CHEW TAB PO SCH (09:08)
[2019-04-04] MEDS: DULOXETINE HCL 20 MG DELAYED RELEASE PO SCH (09:08)
[2019-04-04] MEDS: ACETAZOLAMIDE 250 MG TAB PO SCH (09:09)
[2019-04-04] MEDS: FOLIC ACID 1 MG TAB PO SCH (09:09)
[2019-04-04] MEDS: LEVETIRACETAM 500 MG TAB PO SCH ×2 (09:10→18:26)
[2019-04-04] MEDS: ESCITALOPRAM OXALATE 10 MG TAB PO SCH (09:10)
[2019-04-04] MEDS: FUROSEMIDE 40 MG TAB PO SCH ×2 (09:10→18:26)
[2019-04-04] MEDS: PREDNISONE 5 MG TAB PO SCH (09:10)
[2019-04-04] MEDS: RANOLAZINE 500 MG TABSR PO SCH ×2 (09:11→18:26)
--- NOTE | 2019-04-04 11:54 | Progress Note ---
DATE: SUBJECTIVE: The patient did better overnight. No new complaints. OBJECTIVE: VITAL SIGNS: Temperature is 97.2, pulse 74, blood pressure 96/53, and saturations 100%. GENERAL: No apparent distress, lying in bed. CARDIOVASCULAR: Regular rate and rhythm. LUNGS: Decreased breath sounds bilaterally. ABDOMEN: Good bowel sounds. Soft and nontender. EXTREMITIES: No clubbing or cyanosis. NEUROLOGIC: Nonfocal. ASSESSMENT AND PLAN: 1. Chest pain. The patient has been seen by Cardiology. 2. Congestive heart failure. Continue current care per Cardiology. 3. Hyperlipidemia. Continue with his medication. 4. Hypokalemia. Check his labs. 5. Anemia. We will check his labs. 6. Coronary artery disease. Continue with current care. Please see hospital chart for full details. MD TRISTA Hester/BERNABE /[id number]
--- NOTE | 2019-04-04 13:45 | NUR ---
Report given to RACHEL Mckeon. Patient is to transfer to room 104.
--- NOTE | 2019-04-04 14:01 | NUR ---
Patient is transported via wheelchair to room 104 at this time.
[2019-04-04] MEDS: WARFARIN SOD 3 MG TAB PO SCH (18:27)
--- NOTE | 2019-04-04 19:00 | NUR ---
RECEIVED PATIENT IN BEDSIDE REPORT. PATIENT RESTING IN BED AT THIS TIME, O2@3L VIA NC. PAIN REPORTED 8/10, WILL ADMINISTER MEDICATION WHEN IT IS TIME. NO S&S OF DISTRESS NOTED. BED LOCKED IN LOWEST POSITION, SIDE RAILS UPX2, CALL LIGHT IN REACH.
[2019-04-04] MEDS: MONTELUKAST SODIUM 10 MG TAB PO SCH (21:29)
[2019-04-04] MEDS: CLOPIDOGREL BISULFATE 75 MG TAB PO SCH (21:29)
[2019-04-04] MEDS: MIRTAZAPINE 15 MG TAB PO SCH (21:29)
[2019-04-04] MEDS: ATORVASTATIN 20 MG TAB PO SCH (21:29)
[2019-04-04] MEDS: QUETIAPINE FUMARATE 25 MG TAB PO SCH (21:29)
[2019-04-05] VITALS (7 sets, daily range): BP systolic 104–117; BP diastolic 61–80
[2019-04-05] MEDS: MORPHINE SULFATE INJ 4 MG/ML INJ 1ML IV PRN ×6 (01:27→22:55)
[2019-04-05] MEDS: ALBUTEROL/IPRATROPIUM 3 ML NEB NEB SCH ×6 (03:15→23:12)
[2019-04-05] MEDS: METHYLPREDNISOLONE SOD SUCC 40 MG/ML VIAL 1ML IV SCH ×3 (05:39→23:01)
[2019-04-05] MEDS: BUDESONIDE/FORMOTEROL 160/4.5MCG INHALER INH SCH (07:16)
[2019-04-05] MEDS: PANTOPRAZOLE SOD 40 MG TABEC PO SCH (08:44)
[2019-04-05] MEDS: CITALOPRAM HYDROBROMIDE 20 MG TAB PO SCH (08:44)
[2019-04-05] MEDS: MIDODRINE HCL 5 MG TABLET PO SCH ×3 (08:44→17:00)
[2019-04-05] MEDS: POTASSIUM CHLORIDE 10MEQ EA PO SCH (08:44)
[2019-04-05] MEDS: ACETAZOLAMIDE 250 MG TAB PO SCH (08:44)
[2019-04-05] MEDS: CEFTRIAXONE SOD 1 GM/NS 50 ML 50 ML IV SCH (08:44)
[2019-04-05] MEDS: DULOXETINE HCL 20 MG DELAYED RELEASE PO SCH (08:44)
[2019-04-05] MEDS: PREDNISONE 5 MG TAB PO SCH (08:44)
[2019-04-05] MEDS: LEVETIRACETAM 500 MG TAB PO SCH ×2 (08:44→17:00)
[2019-04-05] MEDS: ASPIRIN 81 MG CHEW TAB PO SCH (08:44)
[2019-04-05] MEDS: FUROSEMIDE 40 MG TAB PO SCH ×2 (08:44→17:00)
[2019-04-05] MEDS: ESCITALOPRAM OXALATE 10 MG TAB PO SCH (08:44)
[2019-04-05] MEDS: RANOLAZINE 500 MG TABSR PO SCH ×2 (08:45→17:01)
[2019-04-05] MEDS: FOLIC ACID 1 MG TAB PO SCH (08:45)
[2019-04-05] MEDS ORDERED: SODIUM CHLORIDE 0.9% 250ML 250 ML ONE (09:58)
--- NOTE | 2019-04-05 13:04 | NUR ---
WOUND CARE CONSULT FOR SCREENING 63YO MALE GROUP HOME PATIENT MENDOZA Luis ON CONSERVATIVE PUP STATUS ON VISCO SURFACE PATIENT CONTINUES TO REMAIN FREE FROM AND SKIN INJURY OR PRESSURE RELATED WOUNDS INDEPENDENT WITH TURNING AND OFFLOADING Addendum: 04/05/19 at 1308 by Harman Dinero RN Amended: Links added.
--- NOTE | 2019-04-05 16:00 | NUR ---
Patient states he does not have a Primary care doctor. Spoke to Dr. Mejía about being the PCP for Mr. Castañeda. He declines. Upon looking in past admissions, Dr. Marin has seen the patient. Spoke with Dr. Marin and he agrees to be Mr. Castañeda's PCP.
[2019-04-05] MEDS: WARFARIN SOD 3 MG TAB PO SCH (17:00)
[2019-04-05] MEDS: QUETIAPINE FUMARATE 25 MG TAB PO SCH (22:24)
[2019-04-05] MEDS: CLOPIDOGREL BISULFATE 75 MG TAB PO SCH (22:24)
[2019-04-05] MEDS: ATORVASTATIN 20 MG TAB PO SCH (22:24)
[2019-04-05] MEDS: MIRTAZAPINE 15 MG TAB PO SCH (22:24)
[2019-04-05] MEDS: MONTELUKAST SODIUM 10 MG TAB PO SCH (22:24)
[2019-04-06] VITALS (8 sets, daily range): BP systolic 115–162; BP diastolic 70–90
[2019-04-06] MEDS: ALBUTEROL/IPRATROPIUM 3 ML NEB NEB SCH ×5 (03:15→20:00)
[2019-04-06] MEDS: METHYLPREDNISOLONE SOD SUCC 40 MG/ML VIAL 1ML IV SCH ×3 (06:07→21:49)
[2019-04-06] MEDS: MORPHINE SULFATE INJ 4 MG/ML INJ 1ML IV PRN (07:04)
[2019-04-06] MEDS: BUDESONIDE/FORMOTEROL 160/4.5MCG INHALER INH SCH ×3 (07:51→20:05)
[2019-04-06] MEDS: MIDODRINE HCL 5 MG TABLET PO SCH ×3 (08:15→17:31)
[2019-04-06] MEDS: CEFTRIAXONE SOD 1 GM/NS 50 ML 50 ML IV SCH (08:15)
[2019-04-06] MEDS: PANTOPRAZOLE SOD 40 MG TABEC PO SCH (08:15)
[2019-04-06] MEDS: ASPIRIN 81 MG CHEW TAB PO SCH (08:16)
[2019-04-06] MEDS: POTASSIUM CHLORIDE 10MEQ EA PO SCH (08:16)
[2019-04-06] MEDS: ACETAZOLAMIDE 250 MG TAB PO SCH (08:16)
[2019-04-06] MEDS: ESCITALOPRAM OXALATE 10 MG TAB PO SCH (08:16)
[2019-04-06] MEDS: PREDNISONE 5 MG TAB PO SCH (08:16)
[2019-04-06] MEDS: DULOXETINE HCL 20 MG DELAYED RELEASE PO SCH (08:16)
[2019-04-06] MEDS: RANOLAZINE 500 MG TABSR PO SCH ×2 (08:16→17:32)
[2019-04-06] MEDS: FUROSEMIDE 40 MG TAB PO SCH ×2 (08:16→17:32)
[2019-04-06] MEDS: CITALOPRAM HYDROBROMIDE 20 MG TAB PO SCH (08:16)
[2019-04-06] MEDS: LEVETIRACETAM 500 MG TAB PO SCH ×2 (08:16→17:32)
[2019-04-06] MEDS: FOLIC ACID 1 MG TAB PO SCH (08:16)
[2019-04-06] MEDS: HYDROCODONE/APAP 5MG-325MG TAB PO PRN ×3 (12:30→22:35)
[2019-04-06 12:51] LABS: INR 1.05; PROTHROMBIN TIME 14.2 seconds (11.9-14.5)
--- NOTE | 2019-04-06 16:42 | NUR ---
Notified [facility] of Mr Maddy's PCP appt
[2019-04-06] MEDS: WARFARIN SOD 3 MG TAB PO SCH (17:31)
--- NOTE | 2019-04-06 19:15 | NUR ---
WALKING ROUNDS PERFORMED, RECEIVED PT LAYING FOWLERS IN BED, AAOX3, RR EVEN AND NON-LABORED, O2 BY NC AT 3L. PT REPORTS PAIN TO (L) ANTERIOR CHEST. LEFT PT LAYING FOWLERS IN BED, BED IN LOW LOCKED POSITION, SIDE RAILS UPX2, CALL LIGHT AND PHONE WITHIN REACH.
[2019-04-06] MEDS: QUETIAPINE FUMARATE 25 MG TAB PO SCH (21:49)
[2019-04-06] MEDS: MIRTAZAPINE 15 MG TAB PO SCH (21:49)
[2019-04-06] MEDS: ATORVASTATIN 20 MG TAB PO SCH (21:49)
[2019-04-06] MEDS: MONTELUKAST SODIUM 10 MG TAB PO SCH (21:49)
[2019-04-06] MEDS: LORAZEPAM 0.5 MG TAB PO PRN (21:49)
[2019-04-07] VITALS (9 sets, daily range): BP systolic 118–143; BP diastolic 73–95
[2019-04-07] MEDS: ALBUTEROL/IPRATROPIUM 3 ML NEB NEB SCH ×7 (03:15→22:40)
[2019-04-07] MEDS: METHYLPREDNISOLONE SOD SUCC 40 MG/ML VIAL 1ML IV SCH ×4 (05:22→21:04)
[2019-04-07] MEDS: HYDROCODONE/APAP 5MG-325MG TAB PO PRN ×4 (05:24→21:00)
[2019-04-07 05:50] LABS: BASOPHILS % 0.1 % (0.0-1.0); HEMATOCRIT 34.8 % (38.2-49.6); LYMPHOCYTES # (AUTO) 0.4 (1.0-3.2); LYMPHOCYTES % 2.4 % (18.0-39.1); MEAN CORPUSCULAR HGB CONC 28.7 g/dL (31-35); MONOCYTES # (AUTO) 0.3 (0.2-0.8); MONOCYTES % 2.1 % (4.4-11.3); NEUTROPHILS # (AUTO) 13.5 (2.1-6.9); NEUTROPHILS % 93.9 % (38.7-80.0); PLATELET COUNT 273 x10e3/uL (140-360); RED CELL DISTRIBUTION WIDTH 15.7 % (11.7-14.4)
[2019-04-07 06:05] LABS: INR 1.37; PROTHROMBIN TIME 17.5 seconds (11.9-14.5)
[2019-04-07 06:19] LABS: ALANINE AMINOTRANSFERASE 15 IU/L (0-55); ALBUMIN 3.1 g/dL (3.5-5.0); ALKALINE PHOSPHATASE 63 IU/L (40-150); BLOOD UREA NITROGEN 23 mg/dL (7-26); BUN/CREATININE RATIO 27 (6-25); CALCIUM 8.4 mg/dL (8.4-10.2); CARBON DIOXIDE 34 mmol/L (22-29); CHLORIDE 99 mmol/L (98-107); CREATININE, SERUM 0.84 mg/dL (0.72-1.25); EST GLOMERULAR FILTRATION RATE > 60 ML/MIN (60-); GLUCOSE 155 mg/dL (74-118); SODIUM 141 mmol/L (136-145)
[2019-04-07] MEDS: CEFTRIAXONE SOD 1 GM/NS 50 ML 50 ML IV SCH (07:00)
[2019-04-07] MEDS: BUDESONIDE/FORMOTEROL 160/4.5MCG INHALER INH SCH ×2 (07:50→18:05)
[2019-04-07] MEDS: FOLIC ACID 1 MG TAB PO SCH (08:05)
[2019-04-07] MEDS: PANTOPRAZOLE SOD 40 MG TABEC PO SCH (08:05)
[2019-04-07] MEDS: ACETAZOLAMIDE 250 MG TAB PO SCH (08:05)
[2019-04-07] MEDS: FUROSEMIDE 40 MG TAB PO SCH ×2 (08:05→16:51)
[2019-04-07] MEDS: ESCITALOPRAM OXALATE 10 MG TAB PO SCH (08:05)
[2019-04-07] MEDS: POTASSIUM CHLORIDE 10MEQ EA PO SCH (08:05)
[2019-04-07] MEDS: LEVETIRACETAM 500 MG TAB PO SCH ×2 (08:05→16:51)
[2019-04-07] MEDS: RANOLAZINE 500 MG TABSR PO SCH ×2 (08:05→16:51)
[2019-04-07] MEDS: CITALOPRAM HYDROBROMIDE 20 MG TAB PO SCH (08:05)
[2019-04-07] MEDS: PREDNISONE 5 MG TAB PO SCH (08:05)
[2019-04-07] MEDS: DULOXETINE HCL 20 MG DELAYED RELEASE PO SCH (08:05)
[2019-04-07] MEDS: MIDODRINE HCL 5 MG TABLET PO SCH ×3 (08:05→16:50)
[2019-04-07] MEDS: LORAZEPAM 0.5 MG TAB PO PRN (10:07)
[2019-04-07] MEDS: WARFARIN SOD 3 MG TAB PO SCH (16:50)
[2019-04-07] MEDS: ATORVASTATIN 20 MG TAB PO SCH (20:47)
[2019-04-07] MEDS: MIRTAZAPINE 15 MG TAB PO SCH (20:47)
[2019-04-07] MEDS: MONTELUKAST SODIUM 10 MG TAB PO SCH (20:48)
[2019-04-07] MEDS: QUETIAPINE FUMARATE 25 MG TAB PO SCH (20:48)
[2019-04-08 00:50] VITALS: BP 118/73
[2019-04-08] MEDS: ALBUTEROL/IPRATROPIUM 3 ML NEB NEB SCH ×4 (02:20→14:20)
[2019-04-08 04:00] VITALS: BP 120/82
[2019-04-08] MEDS: METHYLPREDNISOLONE SOD SUCC 40 MG/ML VIAL 1ML IV SCH ×2 (05:02→14:00)
[2019-04-08] MEDS: HYDROCODONE/APAP 5MG-325MG TAB PO PRN ×2 (05:02→08:51)
[2019-04-08 08:00] VITALS: BP 118/85
[2019-04-08] MEDS: MIDODRINE HCL 5 MG TABLET PO SCH ×2 (08:00→12:00)
[2019-04-08] MEDS: PANTOPRAZOLE SOD 40 MG TABEC PO SCH (08:01)
[2019-04-08] MEDS: CEFTRIAXONE SOD 1 GM/NS 50 ML 50 ML IV SCH (08:01)
[2019-04-08] MEDS: FOLIC ACID 1 MG TAB PO SCH (08:02)
[2019-04-08] MEDS: RANOLAZINE 500 MG TABSR PO SCH (08:02)
[2019-04-08] MEDS: ESCITALOPRAM OXALATE 10 MG TAB PO SCH (08:02)
[2019-04-08] MEDS: ACETAZOLAMIDE 250 MG TAB PO SCH (08:02)
[2019-04-08] MEDS: FUROSEMIDE 40 MG TAB PO SCH (08:02)
[2019-04-08] MEDS: POTASSIUM CHLORIDE 10MEQ EA PO SCH (08:02)
[2019-04-08] MEDS: PREDNISONE 5 MG TAB PO SCH (08:02)
[2019-04-08] MEDS: LEVETIRACETAM 500 MG TAB PO SCH (08:02)
[2019-04-08] MEDS: CITALOPRAM HYDROBROMIDE 20 MG TAB PO SCH (08:02)
[2019-04-08] MEDS: DULOXETINE HCL 20 MG DELAYED RELEASE PO SCH (08:02)
[2019-04-08] MEDS: BUDESONIDE/FORMOTEROL 160/4.5MCG INHALER INH SCH (08:10)
[2019-04-08] MEDS ORDERED: ONDANSETRON HCL 4 MG ORAL DISINTEGRATING TAB PO PRN (08:15)
[2019-04-08 08:20] VITALS: BP 118/85
--- NOTE | 2019-04-08 08:48 | NUR ---
CALLED [facility] AND THEY WILL PICK HIM UP AT 10AM, LET CHARGE NURSE KNOW.
--- NOTE | 2019-04-08 10:00 | NUR ---
"Patient alert and oriented. discharge instructions given to patient at this time, patient verbalized understanding. IV discontinued, catheter in tact and small dressing applied. patient to be wheeled out to |[facility] personal auto for patient transfer back to facility."
--- NOTE | 2019-04-08 10:30 | NUR ---
[facility] arrived with no oxygen for patient transfer, patient aware. Business Owner/Engineer sent back to facility to obtain oxygen for patient transfer.
[2019-04-08 12:15] VITALS: BP 110/83
--- NOTE | 2019-04-08 12:58 | Discharge Summary ---
DISCHARGE DIAGNOSES: 1. Acute exacerbation of chronic obstructive pulmonary disease. 2. Tobacco user. 3. Noncompliance. HISTORY OF PRESENT ILLNESS AND HOSPITAL COURSE: See hospital chart for full details. The patient is a gentleman, history of noncompliance, continues to smoke, who has advanced lung disease, who presented with acute exacerbation of COPD with some bronchitis. The patient was brought in and placed on IV antibiotics, IV steroids, around the clock nebulizer therapy, which helped him improve. By the time of discharge, the patient was ambulating in the halls well. He was back to his baseline and he wanted to go back to his assisted living. He was discharged with p.o. Keflex for 10 more days as well as p.o. prednisone taper for 15 days. Since the patient does not have a primary care physician, Case Management spoke with Dr. Marin, who will be happy to take over as his primary care physician. So, that information was given to Mr. Castañeda and told him to follow up with Dr. Marin in 1 week. Hopefully, this will help minimize his frequent admissions to the hospital due to his noncompliance. Also, I had a long talk with the patient about his smoking habits that if he continues to smoke, he will only get worse, he will become dependent and he would eventually from his poor decisions he is making. He fully understands, but he states that he is most likely not going to quit. Please see hospital chart for full details. MD TRISTA Hester/BERNABE /[id number]
--- NOTE | 2019-04-08 15:20 | NUR ---
patient alert and oriented, drop hammer pile driver operator from facility has arrived with oxygen for patient transfer. patient transferred to [facility] via wheelchair.
== END 2019-04-08 15:20 | DRG 190 ==
LOC: ER 17:46 → ERHOLD 21:37 → MED/SURG2 22:55 → OBSVTOIN 04-04 06:41 → MED/SURG 04-04 14:03
PROVIDERS: ADMIT Internal Medicine; ATTEND Internal Medicine
DX: J44.1 Chronic obstructive pulmonary disease with (acute) exacerbation (principal); I50.33 Acute on chronic diastolic (congestive) heart failure; I11.0 Hypertensive heart disease with heart failure; Z72.0 Tobacco use; Z91.19 Patient's noncompliance with other medical treatment and regimen; J40 Bronchitis, not specified as acute or chronic; Z99.81 Dependence on supplemental oxygen; I25.10 Atherosclerotic heart disease of native coronary artery without angina pectoris; Z79.01 Long term (current) use of anticoagulants; M19.90 Unspecified osteoarthritis, unspecified site; F41.9 Anxiety disorder, unspecified; F17.210 Nicotine dependence, cigarettes, uncomplicated; E87.6 Hypokalemia; D64.9 Anemia, unspecified; E78.5 Hyperlipidemia, unspecified; I48.0 Paroxysmal atrial fibrillation; K21.9 Gastro-esophageal reflux disease without esophagitis
CPT/HCPCS: 36415; 71046; 80053; 80061; 81001; 82550; 82553; 82805; 83735; 83880; 84443; 84484; 85025; 85610; 85730; 93005; 93306; 94640; 94664; 96374; 99284; G0378; J0696; J2270; J2405; J2920; J7030; J7050; J7512

== ENCOUNTER 2019-04-11 12:20 | Observation (INO) | payer OTHER ==
[~2019-04-11] VITALS: Ht 185.4 cm; Wt 96.6 kg
[2019-04-11] MEDS ORDERED: IPRATROPIUM BROMIDE 0.02% 2.5 ML NEB NEB ONE (13:15)
[2019-04-11] MEDS ORDERED: METHYLPREDNISOLONE SOD SUCC 125 MG/2ML VIAL IV ONE (13:30)
[2019-04-11] MEDS ORDERED: ALBUTEROL SULF 0.083% NEB SOLN 3 ML NEB NEB ONE (13:30)
--- NOTE | 2019-04-11 13:30 | NUR ---
LAB NOTIFIED TO DRAW BLOOD WORK. PATIENT DIFFICULT STICK ORDER FOR PICC LINE PLACED
--- NOTE | 2019-04-11 14:01 | NUR ---
LAB NOTIFIED FOR ASSISTANCE DRAWING BLOOD
--- NOTE | 2019-04-11 14:10 | NUR ---
PATIENT RECEIVING BREATHING TX
--- NOTE | 2019-04-11 14:18 | NUR ---
KRISTIE NGOWEIGHTS AND MEASURES INSPECTOR AT BEDSIDE ATTEMPTING IV ACCESS/LAB DRAW
--- NOTE | 2019-04-11 14:19 | Diagnostic Imaging Report ---
EXAMINATION: CHEST SINGLE (PORTABLE) INDICATION: Chest pain, shortness of breath ^SOB ^[id number] ^1330 COMPARISON: Chest x-ray 04/02/2019 FINDINGS: PA and lateral views TUBES and LINES: Dual-lead pacemaker wires terminate in the right atrium and right ventricle. LUNGS: Diffuse hyperinflation consistent with COPD. Mild volume loss of the right hemithorax is stable. Distal vascular congestion has improved. Central pulmonary vascular prominence is stable. No confluent infiltrates PLEURA: Stable right lateral costophrenic angle blunting. Left lateral costophrenic angle is sharp. No pneumothorax. HEART AND MEDIASTINUM: Stable cardiomegaly. BONES AND SOFT TISSUES: No focal osseous lesions. Soft tissues are unremarkable. UPPER ABDOMEN: Unremarkable. IMPRESSION: Stable right lateral costophrenic angle blunting or effusion. Pulmonary hyperinflation consistent with COPD. Signed by: Dr. Lisa Palma MD on 04/11/2019 2:15 PM
[2019-04-11 14:49] LABS: BASOPHILS % 0.1 % (0.0-1.0); EOSINOPHILS % 0.2 % (0.0-6.0); HEMATOCRIT 34.1 % (38.2-49.6); HEMOGLOBIN 10.1 g/dL (14.0-18.0); LYMPHOCYTES % 6.4 % (18.0-39.1); MEAN CORPUSCULAR HEMOGLOBIN 25.1 pg (28-32); MEAN CORPUSCULAR HGB CONC 29.6 g/dL (31-35); MEAN CORPUSCULAR VOLUME 84.8 fL (81-99); MONOCYTES # (AUTO) 1.1 (0.2-0.8); MONOCYTES % 6.8 % (4.4-11.3); NEUTROPHILS # (AUTO) 13.8 (2.1-6.9); NEUTROPHILS % 85.3 % (38.7-80.0); PLATELET COUNT 264 x10e3/uL (140-360); RED BLOOD COUNT 4.02 x10e6/uL (4.3-5.7); RED CELL DISTRIBUTION WIDTH 15.9 % (11.7-14.4)
[2019-04-11 14:50] LABS: ALANINE AMINOTRANSFERASE 17 IU/L (0-55); ALBUMIN 2.9 g/dL (3.5-5.0); ALKALINE PHOSPHATASE 63 IU/L (40-150); BLOOD UREA NITROGEN 15 mg/dL (7-26); BUN/CREATININE RATIO 25 (6-25); CALCIUM 8.2 mg/dL (8.4-10.2); CARBON DIOXIDE 32 mmol/L (22-29); CHLORIDE 102 mmol/L (98-107); CREATINE KINASE 32 IU/L (30-200); CREATININE, SERUM 0.61 mg/dL (0.72-1.25); EST GLOMERULAR FILTRATION RATE > 60 ML/MIN (60-); GLUCOSE 114 mg/dL (74-118); MAGNESIUM 2.2 MG/DL (1.3-2.1); SODIUM 143 mmol/L (136-145)
[2019-04-11 14:52] LABS: INR 0.96; PROTHROMBIN TIME 13.3 seconds (11.9-14.5)
[2019-04-11 14:53] LABS: PARTIAL THROMBOPLASTIN TIME 32.3 seconds (23.8-35.5)
--- NOTE | 2019-04-11 15:57 | NUR ---
PICC LINE PLACEMENT SET UP AT BEDSIDE
[2019-04-11] MEDS ORDERED: ONDANSETRON HCL INJ 2MG/ML 2ML 2 MG/ML VIAL IV PRN (16:15)
[2019-04-11] MEDS ORDERED: ALBUTEROL SULF 0.083% NEB SOLN 3 ML NEB NEB PRN (16:15)
[2019-04-11] MEDS: LEVOFLOXACIN 500MG/D5W 100ML 100 ML IV SCH (16:50)
[2019-04-11] MEDS: FAMOTIDINE 20 MG/2 ML VIAL IV SCH (16:50)
[2019-04-11] MEDS ORDERED: KETOROLAC TROMETHAMINE 30 MG/ML VIAL IV ONE (17:30)
--- NOTE | 2019-04-11 17:30 | NUR ---
PATIENT GIVEN MEAL TRAY
[2019-04-11] MEDS: ALBUTEROL/IPRATROPIUM 3 ML NEB NEB SCH ×2 (19:50→23:15)
--- NOTE | 2019-04-11 19:50 | NUR ---
report received from ENVIRONMENTAL WEB CRAWLER Brittney, patient pending arrival to the floor, SBAR report received via telephone
[2019-04-11 20:00] VITALS: BP 114/79
--- NOTE | 2019-04-11 20:00 | NUR ---
patient arrived to the floor, via REJI hendrickson, able to verbalize needs, gait steady, dyspnea noted, patient encouraged to use urinal, rest in bed, call light within reach, oriented to staff and room, bed in lowest position, ambulatory aid(Cane) place within reach, oxygen therapy continues at 3 liters via NC tolerating well, VSS, PSO2@94%,
[2019-04-11 20:20] VITALS: BP 114/79
[2019-04-11 20:48] VITALS: BP 114/79
[2019-04-11 20:50] VITALS: BP 114/79
[2019-04-11] MEDS ORDERED: QUETIAPINE FUMARATE 25 MG TAB PO SCH (21:00)
--- NOTE | 2019-04-11 21:00 | NUR ---
patient c/o chest pain level 10/10, seen lying comfortably in bed, no distress noted, skin warm dry, watching tv, Nitoglycerin SL given, NOC PO medication given tolerated medication well,
[2019-04-11] MEDS: MIRTAZAPINE 15 MG TAB PO SCH (21:07)
[2019-04-11] MEDS: CLOPIDOGREL BISULFATE 75 MG TAB PO SCH (21:07)
[2019-04-11] MEDS: METHYLPREDNISOLONE SOD SUCC 125 MG/2ML VIAL IV SCH (21:07)
[2019-04-11] MEDS: ATORVASTATIN 20 MG TAB PO SCH (21:07)
[2019-04-11] MEDS: NITROGLYCERIN 0.4 MG SUBL SL SCH (21:08)
--- NOTE | 2019-04-11 21:19 | NUR ---
MD Pittman at beside consulting with patient, patient AOJuan F, good historian Addendum: 04/11/19 at 2126 by RADHA ABBOTT RN error patient is not good historian, seen talking to MD Pittman able to give information on when pacemaker was placed or serviced, MD Pittman will refer to yard crane operator
[2019-04-11 21:43] LABS: CREATINE KINASE MB 2.6 ng/mL (0-5.0)
[2019-04-11 22:00] VITALS: BP 114/79
[2019-04-11] MEDS ORDERED: INFLUENZA VIRUS VAC SPLIT INJ 0.5 ML SYR IM SCH (22:12)
[2019-04-12] VITALS (9 sets, daily range): BP systolic 101–138; BP diastolic 58–84
[2019-04-12] MEDS ORDERED: HALOPERIDOL LACTATE 5 MG/ML VIAL IM ONE (01:00)
[2019-04-12] MEDS: ALBUTEROL/IPRATROPIUM 3 ML NEB NEB SCH ×6 (03:02→23:00)
--- NOTE | 2019-04-12 03:45 | NUR ---
MD patton called this am, patient awaken with severe chest pain stating "Feels like someone's sitting on my chest", pain level 10/10,
[2019-04-12] MEDS: NITROGLYCERIN 0.4 MG SUBL SL SCH (03:51)
[2019-04-12] MEDS ORDERED: ONDANSETRON HCL INJ 2MG/ML 2ML 2 MG/ML VIAL IV PRN (04:00)
[2019-04-12] MEDS: MORPHINE SULFATE 2 MG/ML SYR 1ML IV PRN ×5 (04:19→21:32)
[2019-04-12 04:48] LABS: CREATINE KINASE 31 IU/L (30-200)
--- NOTE | 2019-04-12 05:02 | Consultation ---
DATE OF CONSULTATION: 04/11/2019 Pulmonary Medicine Consult REASON FOR REFERRAL: COPD. HISTORY OF PRESENT ILLNESS: Mr. Castañeda is a pleasant 63-year-old gentleman, well known to me from clinic and other encounters with COPD. The patient has acute onset of chest tightness. Onset x2 hours. He took his oxygen off to smoke and then he developed symptoms. The patient's oxygen saturations were 75% when EMS arrived and went back to 98% when he got on 2 L/minute by nasal cannula. The patient went on to have vital signs that were mostly unremarkable. White count was 16,000. Chest x-ray done was unchanged compared to previous with right basilar thrill, blunting at costophrenic angle. A decision was made to admit him due to extent of dyspnea. PAST MEDICAL HISTORY: COPD, suggested asthma, atrial fibrillation/flutter, coronary artery disease with 40% RCA blockage, hypertension, TIA, stroke, anxiety, left carotid stenosis, pacemaker, tonsillectomy, left carotid stent in 2018, AICD. MEDICATIONS: Medication list reviewed per electronic record. ALLERGIES: NO KNOWN DRUG ALLERGIES. SOCIAL HISTORY: No alcohol. No drugs. The patient does smoke actively one pack per day. There is a former alcohol abuse. No drug use. Lives in assisted living. FAMILY HISTORY: Noncontributory. REVIEW OF SYSTEMS: GENERAL: No weight changes. OPHTHALMOLOGIC: No floaters. ENT: No nasal bleeding, excessive. IMMUNOLOGIC: No thyroid disease. PULMONARY: No hemoptysis. CARDIAC: There is no recollection of recent OR. GI: No diarrhea. : No blood in urine. DERMATOLOGIC: No rash. MUSCULOSKELETAL: Mild arthritis. PHYSICAL EXAMINATION: VITAL SIGNS: Afebrile, vital signs noted and reviewed per the chart and record. GENERAL: In no acute distress now, in bed, talking. HEENT: Normocephalic and atraumatic. NECK: Supple. Throat midline. LUNGS: Bilateral air entry, decreased breath sounds, rare rhonchi. CARDIOVASCULAR: S1, S2. No murmurs, rubs, or gallops. ABDOMEN: Soft and nontender. EXTREMITIES: No clubbing. No cyanosis. There is trace edema. INTEGUMENT: No rash or purpura. LABORATORY DATA: Potassium 4.0, BUN 15, creatinine 0.61. White count 16, hematocrit 34, platelets 264. IMPRESSION AND PLAN: 1. Atypical chest tightness on admit, per others. 2. Chronic obstructive pulmonary disease by history. 3. Chronic respiratory failure, hypoxic, hypercapnic. 4. History of anxiety. 5. Cerebrovascular accident history. 6. Chronic right vascular atelectasis/scarring, status post bronchoscopy in October 2016, which was unremarkable. 7. Coexisting asthma. 8. Long-time smoker. 9. Atrial fibrillation. 10. Coronary artery disease, status post 40% RCA stenosis. 11. Depression. 12. Gastroesophageal reflux disease. 13. Hypertension. Initial IV steroids. Bronchodilators. Restart theophylline. Restart n-acetylcysteine therapy. We will continue followup closely. Mobilize the patient. At this time, we will wait how is doing with therapy. Thank you very much, Dr. Pittman for allowing me a chance to participate in the care of Mr. Castañeda. Please call for questions. MD ESE Mauro/BERNABE /[id number]
--- NOTE | 2019-04-12 05:07 | History and Physical ---
CHIEF COMPLAINT: Chest pain. HISTORY OF PRESENT ILLNESS: This is a 63-year-old male, very poor historian on examination. Of note, he reports having an AICD several years ago, but he does not recall when. Reports also having history of heart catheterization, cannot remember who is the loan clerk is. He reports having a cardiac stent, but cannot remember how many stents and who is the heart doctor was, came in this morning with complaints of substernal chest pain with some shortness of breath. The patient reports he has had similar chest pain in the past. Of note, he also has a history of COPD, reports some shortness of breath and wheezing, cough and congestion. The patient does not follow up with a loan clerk or primary care physician. He denies any fever at home, cough or congestion. The patient seen and evaluated at bedside on the medical floor with the nursing staff present throughout the entire conversation. Currently, he is complaining of some chest pain, but he is receiving some pain medication with some resolved. REVIEW OF SYSTEMS: Pertinent positive shortness of breath and chest pain. Pertinent negative: He denies any palpitation, nausea, vomiting, diarrhea, dysuria, hematuria, frequency, urgency, lightheadedness, dizziness, abdominal pain, headaches, or any fever. The rest of 14-point review of systems have been reviewed with the patient and are negative. ALLERGIES: NO KNOWN DRUG ALLERGIES. HOME MEDICATIONS: He takes Tylenol with codeine, acetazolamide, Diamox, albuterol inhaler. He was taken azithromycin. He takes: 1. Symbicort. 2. Celexa. 3. Lexapro. 4. Warfarin. 5. Lorazepam. 6. Prednisone. 7. Spiriva. 8. Acetylcysteine. 9. Aspirin. 10. Lipitor. 11. Plavix. 12. Cymbalta. 13. Keppra. 14. Midodrine. 15. Remeron. 16. Protonix. 17. Seroquel. 18. Ranexa. 19. Theophyline. PAST MEDICAL HISTORY: Multiple psychiatric disorders, seizures, hypertension, heart failure, allergies, COPD, hyperlipidemia. Unsure why he takes warfarin. PAST SURGICAL HISTORY: Reports an AICD, reports having a left heart catheterization many years ago. Cannot recall when. FAMILY HISTORY: Hypertension, diabetes. SOCIAL HISTORY: No drugs, was a former smoker. No alcohol. Poor historian. Retired. PHYSICAL EXAMINATION: VITAL SIGNS: Temperature is 97.5, pulse 74, respiratory rate is 20, blood pressure is 116/84, pulse is 98% on nasal cannula. GENERAL: Not in acute distress, alert, oriented x3. Cooperative on exam. HEENT: Head normocephalic, atraumatic. Eyes; pupils are equal, round, and reactive to light bilaterally. Extraocular movements intact bilaterally. NECK: Supple. Good range of motion. Throat; no evidence of erythema or exudates in the posterior pharynx. Has poor dentition. PULMONARY: Clear to auscultation bilaterally. He has expiratory wheezing appreciated. No crackles. No rhonchi. CARDIOVASCULAR: Positive S1, S2. No murmurs, rubs, or gallops appreciated. ABDOMEN: Soft, nondistended, and nontender to palpation. Bowel sounds present. MUSCULOSKELETAL: Strength is 5/5 throughout. No evidence of any muscle deficits on examination. No weakness appreciated. NEUROLOGIC: Cranial nerve 2 through 12 grossly intact. No evidence of any neurological deficits on exam. SKIN: Intact. Warm to touch. Good cap refill. PSYCHIATRIC: We will defer to Psychiatry. EXTREMITIES: No edema. Good range of motion throughout. LABORATORY DATA: Show white count 16.1, hemoglobin 10.1, hematocrit 34, platelets of 264, coagulation PT 13, INR 0.96, PTT 32. Chemistry; sodium 143, potassium 4, chloride 102, bicarbonate 32, anion gap of 13, BUN 15, creatinine 0.61, glucose is 114, magnesium 2.2, calcium 8.2, glucose 114, total bilirubin was 0.7, AST 18, and ALT 17, alkaline phosphatase 63. Troponins are negative 0.013. BNP 270. Albumin 2.9. Microbiology, none. IMAGING STUDIES: Chest x-ray shows stable right lateral costophrenic angle blunting or effusion. Pulmonary hyperinflation consistent with COPD. IMPRESSION: 1. Acute exacerbation of chronic obstructive pulmonary disease. 2. Chest pain, rule out acute coronary syndrome. 3. Multiple psychiatric disorders. 4. History of seizures. 5. Poor historian. PLAN: At this time, as for his COPD, Pulmonary has been consulted. He is on IV steroids, neb treatments and antibiotics. As for his chest pain, his cardiac enzymes have been negative, but we will go ahead and get Cardiology consultation. Put on cardioprotective medications including aspirin. As for his multiple psychiatric issues, he is on significant amount of antidepressants, he takes like 4 or 5 different medications and which I will go ahead and get Psychiatry to help decipher and to wean him off some of these medications. As for his history of seizures, we will continue with his Keppra. Nutrition will be heart healthy diet. Put him on pain control. PT/OT evaluation. Put on Lovenox for DVT prophylaxis. MD REVA Gan/MODL /[id number]
[2019-04-12] MEDS: FAMOTIDINE 20 MG/2 ML VIAL IV SCH ×2 (05:10→16:12)
[2019-04-12] MEDS: METHYLPREDNISOLONE SOD SUCC 125 MG/2ML VIAL IV SCH ×3 (05:10→21:32)
[2019-04-12 06:15] LABS: BASOPHILS % 0.1 % (0.0-1.0); HEMATOCRIT 32.9 % (38.2-49.6); HEMOGLOBIN 9.7 g/dL (14.0-18.0); LYMPHOCYTES # (AUTO) 0.3 (1.0-3.2); LYMPHOCYTES % 3.5 % (18.0-39.1); MEAN CORPUSCULAR HEMOGLOBIN 25.3 pg (28-32); MEAN CORPUSCULAR HGB CONC 29.5 g/dL (31-35); MEAN CORPUSCULAR VOLUME 85.7 fL (81-99); MONOCYTES # (AUTO) 0.1 (0.2-0.8); MONOCYTES % 0.6 % (4.4-11.3); NEUTROPHILS # (AUTO) 7.4 (2.1-6.9); NEUTROPHILS % 94.6 % (38.7-80.0); PLATELET COUNT 209 x10e3/uL (140-360); RED BLOOD COUNT 3.84 x10e6/uL (4.3-5.7); RED CELL DISTRIBUTION WIDTH 15.8 % (11.7-14.4)
[2019-04-12 06:35] LABS: ALANINE AMINOTRANSFERASE 16 IU/L (0-55); ALBUMIN 2.8 g/dL (3.5-5.0); ALKALINE PHOSPHATASE 52 IU/L (40-150); ANION GAP 15.3 mmol/L (8-16); BLOOD UREA NITROGEN 16 mg/dL (7-26); BUN/CREATININE RATIO 24 (6-25); CALCIUM 8.1 mg/dL (8.4-10.2); CARBON DIOXIDE 28 mmol/L (22-29); CHLORIDE 100 mmol/L (98-107); CREATININE, SERUM 0.66 mg/dL (0.72-1.25); EST GLOMERULAR FILTRATION RATE > 60 ML/MIN (60-); GLUCOSE 196 mg/dL (74-118); POTASSIUM 4.3 mmol/L (3.5-5.1); SODIUM 139 mmol/L (136-145)
--- NOTE | 2019-04-12 06:50 | NUR ---
RECEIVED BEDSIDE SHIFT REPORT FROM OFF GOING NURSE. PATIENT IS RESTING IN BED, NO ACUTE DISTRESS NOTED. CALL LIGHT WITHIN REACH. BED IN THE LOWEST POSITION.
[2019-04-12 07:01] LABS: CHOL/HDL RATIO 2.7 (3.9-4.7)
[2019-04-12 07:14] LABS: CREATINE KINASE 34 IU/L (30-200)
--- NOTE | 2019-04-12 07:27 | NUR ---
SBAR report given to meagan Her, patient seen resting in bed, watching TV, no s/sx of chest pain at this time, call light within reach
[2019-04-12] MEDS ORDERED: PANTOPRAZOLE SODIUM 40 MG SUSPDR.PKT PO SCH (07:30)
[2019-04-12] MEDS: VITAMIN C PO SCH ×2 (09:00→16:13)
[2019-04-12] MEDS ORDERED: ACETYLCYSTEINE 200 MG/ML 4ML VIAL PO SCH (09:00)
[2019-04-12] MEDS ORDERED: NON-FORMULARY MEDICATION (Theophylline Anhydrous (Theophylline) 400 MG) PO SCH (09:00)
[2019-04-12] MEDS ORDERED: ACETYLCYSTEINE 600 MG PO SCH (09:00)
[2019-04-12] MEDS ORDERED: ASPIRIN 325 MG TAB PO SCH (09:00)
[2019-04-12] MEDS ORDERED: ASPIRIN 81 MG ENTERIC COATED PO SCH (09:00)
[2019-04-12] MEDS: MIDODRINE 2.5 MG TAB PO SCH ×3 (09:00→16:11)
[2019-04-12] MEDS ORDERED: ASPIRIN 81 MG CHEW TAB PO SCH ×2 (09:00)
[2019-04-12] MEDS: N ACETYL CYSTEINE PO SCH ×2 (09:00→16:13)
[2019-04-12] MEDS: DULOXETINE HCL 20 MG DELAYED RELEASE PO SCH (09:02)
[2019-04-12] MEDS: LEVETIRACETAM 500 MG TAB PO SCH ×2 (09:02→16:13)
[2019-04-12] MEDS: PANTOPRAZOLE SOD 40 MG TABEC PO SCH (09:02)
[2019-04-12] MEDS: FOLIC ACID 1 MG TAB PO SCH (09:02)
[2019-04-12] MEDS: FUROSEMIDE 40 MG TAB PO SCH ×2 (09:02→16:13)
[2019-04-12] MEDS: THEOPHYLLINE 200 MG TABCR PO SCH (09:03)
[2019-04-12] MEDS: RANOLAZINE 500 MG TABSR PO SCH ×2 (09:03→16:13)
[2019-04-12] MEDS ORDERED: RANOLAZINE 500 MG TABSR PO SCH (11:45)
[2019-04-12] MEDS ORDERED: QUETIAPINE FUMARATE 25 MG TAB PO PRN (14:00)
--- NOTE | 2019-04-12 14:16 | Consultation ---
DATE OF CONSULTATION: 04/12/2019 REASON FOR CONSULTATION: Chest pain. HISTORY OF PRESENT ILLNESS: This is a 63-year-old male known to practice with multiple admissions for COPD exacerbation with history of COPD exacerbation, tobacco use, CAD, status post left heart catheterization in 2018 showing distal LAD disease, chronic atrial fibrillation status post pacemaker implantation, smoker, anxiety, depression, and history of poor compliance. The patient presents to [facility] ER with complaints of shortness of breath and chest tightness. Cardiology was consulted to evaluate the patient. The patient is seen in room, reports that he came in because of his chest pain and shortness of breath lasting for about an hour; however, no more chest pain since arrival. Also of note, the patient apparently from EMS report, his sats were 75% and was put on oxygen therapy. Enzymes negative x4. EKG showing paced rhythm. PAST MEDICAL HISTORY: 1. COPD. 2. Smoker. 3. History of CAD, status post left heart catheterization in March 2018 showing distal LAD due to occluded occlusion. 4. Atrial fibrillation, chronic. 5. Poor compliance. 6. Anxiety. 7. Depression. 8. Status pacemaker implantation. 9. Degenerative joint disease with abnormal gait. PAST SURGICAL HISTORY: Status post pacemaker implantation. SOCIAL HISTORY: He is living in [facility]. He continued to smoke from half a pack to a pack a day, positive for alcohol use. HOME MEDICATIONS: Include Lasix 40 mg twice a day, lisinopril 2.5 mg daily, metoprolol 12.5 b.i.d., Lipitor 20 mg daily, Plavix 75 mg daily, warfarin 9 mg daily, Keppra 500 mg twice a day, Symbicort, Spiriva, Singulair. ALLERGIES: NO KNOWN ALLERGIES. FAMILY HISTORY: No history of premature coronary artery disease. REVIEW OF SYSTEMS: GENERAL: Denies any fatigue, weakness, fevers, chills, or night sweats. SKIN: Denies any rashes or sores. HEENT: Denies nausea, vomiting, vision changes, blurred vision, double vision, earache, epistaxis, sore throat, or swollen neck. CARDIAC: Positive for chest pain. Positive for dyspnea on exertion. Positive for intermittent palpitation. Denies any orthopnea, PND, or lower extremity edema. RESPIRATORY: Positive shortness of breath. Positive for wheezing and coughing. Positive for tobacco use. GI: Denies any nausea, vomiting, diarrhea, constipation, melena, hematochezia, bloody or tarry stools. URINARY: Denies any frequency, urgency, hematuria, dysuria. VASCULAR: Denies any lower extremity edema or claudication. MUSCULOSKELETAL: Denies any muscle weakness; however, positive for generalized joint pains. NEUROLOGIC: Denies any weakness, paralysis, fainting, blackouts, seizures. HEMATOLOGY: Denies any anemia. Positive for bruising. ENDOCRINE: Denies any heat or cold intolerance, polyuria, polydipsia, or polyphagia. PHYSICAL EXAMINATION: VITAL SIGNS: Height 73 inches, weight 213 pounds. Current vitals are temp 97.8, respiratory rate 18, blood pressure 129/83, pulse ox 100% on nasal cannula. GENERAL: Appears stated age. Poor historian, in no acute distress. HEENT: Normocephalic. Pupils are reactive. Extraocular movements intact. Trachea midline. No JVD. No carotid bruit. Oral mucosa pink. HEART: Regular rate and rhythm. Pacemaker scar in the left chest wall. PMI about 4th and 5th intercostal space. LUNGS: Poor airway entry and exit. Wheezing and crackles noted. ABDOMEN: Soft, nontender, no problems for distention. No organomegaly noted. MUSCULOSKELETAL: Good muscle strength throughout. VASCULAR: +2 radial pulses, +1 DP, PT pulses bilaterally. NEUROLOGIC: Cranial nerves 2 through 12 seem intact. LABORATORY DATA: Sodium 139, potassium 4.3, chloride 100, creatinine 0.6, BUN 16. Troponin 0.013, 0.013, less than 0.001, less than 0.001. BNP 270. White count 6, hemoglobin 10, hematocrit 34, platelets 264. Chest x-ray showing hyperinflated lungs consistent with COPD. ASSESSMENT: 1. Chronic obstructive pulmonary disease exacerbation. 2. Tobacco use. 3. Chest pain. 4. Coronary artery disease, status post left heart catheterization in March 2018 showing distal left anterior descending artery occlusion, chronic. 5. Chronic atrial fibrillation. 6. Status post pacemaker implantation. 7. Poor compliance. PLAN: 1. The patient presents to [facility] ER with complaints of shortness of breath, was hypoxic with a sat of 75% by EMS report. Cardiac enzymes strongly negative. From cardiac standpoint, we will continue medical therapy. 2. Discussed with the patient regarding medical compliance and taking them. 3. We will continue to monitor patient and recommend medical therapy from cardiac standpoint. Thank you very much for this consult. Dictated by Robi Sal, LAZARO Prieto Snow MD DC/MODL /[id number]
[2019-04-12] MEDS ORDERED: SODIUM CHLORIDE 0.9% 250ML 250 ML ONE (15:59)
--- NOTE | 2019-04-12 16:01 | Progress Note ---
DATE: 04/12/2019 Medicine Progress Note SUBJECTIVE: The patient is doing much better today with no complaints. He was evaluated by Cardiology. No further workup needed. He has been evaluated by Pulmonary. No further workup needed. The patient will likely be discharged tomorrow. We will keep him overnight. PHYSICAL EXAMINATION: VITAL SIGNS: Temperature 97.8, pulse 70, respiratory rate is 18, blood pressure 129/83, pulse ox 95% on 3 L nasal cannula chronically. GENERAL: Not in acute distress. Alert and oriented x3. Cooperative on exam. HEENT: Head; normocephalic, atraumatic. Eyes; pupils are equal, round, and reactive to light bilaterally. Extraocular movements intact bilaterally. NECK: Supple. Good range of motion. Throat; no evidence of any erythema or exudates in the posterior pharynx. Has poor dentition. PULMONARY: Clear to auscultation bilaterally. No wheezing, rales, or rhonchi. No crackles appreciated. CARDIOVASCULAR: Positive S1, S2. No murmurs, rubs, or gallops appreciated. ABDOMEN: Soft, nondistended, and nontender to palpation. Bowel sounds present. MUSCULOSKELETAL: Strength is 5/5 throughout. No evidence of any muscle deficits on examination. No weakness appreciated. NEUROLOGIC: Cranial nerve 2 through 12 grossly intact. No evidence of any neurological deficits on exam. SKIN: Intact. Warm to touch. Good cap refill. PSYCHIATRIC: Normal affect and mood. EXTREMITIES: No edema. Good range of motion throughout. LABORATORY DATA: CBC reviewed; white count 7.8, hemoglobin 9.7, hematocrit 32, and platelets of 209. Chemistry reviewed and stable. Troponins were all negative. IMPRESSION: 1. Acute exacerbation of chronic obstructive pulmonary disease. 2. Chest pain, rule out acute coronary syndrome, likely atypical in nature. 3. Multiple psychiatric disorders. 4. History of seizures. 5. Poor historian. PLAN: As for his COPD, the patient already has oxygen at home. He is on steroids, neb treatments and antibiotics. Pulmonary has seen him already. As for his chest pain it is all atypical. Cardiac enzymes were negative and no further workup needed by Cardiology. Continue with cardioprotective medications for now. Psychiatry will come and evaluate him for adjustment of his medications. The patient is doing much better today. We will get a.m. labs. We will discharge the patient tomorrow once he is cleared by the consultants. MD REVA Gan/BERNABE /[id number]
[2019-04-12] MEDS: LEVOFLOXACIN 500MG/D5W 100ML 100 ML IV SCH (16:11)
[2019-04-12] MEDS ORDERED: WARFARIN SOD 2.5 MG TAB PO SCH (17:00)
--- NOTE | 2019-04-12 19:10 | NUR ---
BEDSIDE SHIFT REPORT GIVEN TO ONCOMING NURSE. PATIENT IS IN STABLE CONDITION, NO ACUTE DISTRESS NOTED. NO S/S OF PAIN NOTED. CALL LIGHT WITHIN REACH. BED IN THE LOWEST POSITION.
--- NOTE | 2019-04-12 20:30 | NUR ---
RECEIVED PT IN BED AOX3 RESPIRATIONS ARE EVEN AND UNLABORED .CALL LIGHT WITH IN REACH .CONTINUE TO MONITOR
[2019-04-12] MEDS: ATORVASTATIN 20 MG TAB PO SCH (20:57)
[2019-04-12] MEDS: MIRTAZAPINE 15 MG TAB PO SCH (20:57)
[2019-04-12] MEDS: CLOPIDOGREL BISULFATE 75 MG TAB PO SCH (20:57)
--- NOTE | 2019-04-12 23:13 | Consultation ---
DATE OF CONSULTATION: 04/12/2019 Psychiatric Consultation. REASON FOR CONSULTATION: To evaluate the patient's mood and to evaluate his medication. HISTORY OF PRESENT ILLNESS: The patient is 63-year-old male admitted to the hospital for bronchitis, chest pain, psychiatric consultation and called to evaluate the patient's mood and medication. The patient is well known to me from Psychiatry standpoint due to his previous hospitalization for his mood disorders and alcoholism. As per medical record, the patient has history of COPD and seizure. Upon evaluation today, the patient is found to be sitting in the chair in the room. He is alert, awake, and oriented to situation. He is calm and cooperative. He denies any anxiety, depression. He denies any feelings of hopelessness or helplessness. He denies any suicidal or homicidal ideation. He denies any problem with sleep or appetite. He is calm and not agitated at this time. PAST PSYCHIATRIC HISTORY: The patient has history of depression and anxiety. He denies past suicide attempts. He drinks alcohol 2 times a week about 2 or 3 beers each time. He denies any drug use. FAMILY HISTORY: Denies. SOCIAL HISTORY: The patient states that he lives at [facility]. MENTAL STATUS EXAM: The patient is an elderly male. He is alert, awake, and oriented to situation. His mood is fair. He denies any suicidal or homicidal ideation. Denies hallucination. Thought process is concrete. No delusion elicited. Insight and judgment are fair. Memory appears to be grossly intact. CURRENT MEDICATION: 1. Seroquel 50 mg p.o. at bedtime. 2. Methylprednisolone. 3. Albuterol/ipratropium. 4. Midodrine. 5. Morphine sulfate. 6. Theophylline. 7. Ranexa. 8. Protonix. 9. Keppra. 10. Lasix. 11. Folic acid. 12. Cymbalta 40 mg p.o. daily. 13. Famotidine. 14. Ondansetron. 15. Nitroglycerin. 16. Remeron 15 mg q.h.s. 17. Plavix. 18. Atorvastatin. 19. Levofloxacin/dextrose. 20. Acetylcysteine. 21. Warfarin. 22. Influenza. 23. Albuterol. 24. Nitroglycerin. CURRENT LABS: WBC 7.81, RBC 3.84, hemoglobin 9.7, hematocrit 32.7, platelets 209. Chemistry; sodium 139, potassium 4.3, chloride 100, CO2 28, BUN 16, creatinine 0.66, AST 11, ALT 16. ASSESSMENT: 1. Adjustment disorder with mixed mood. 2. History of depression. PLAN: 1. Plan is to discontinue Seroquel. 2. Continue Remeron 15 mg p.o. at bedtime. 3. Continue Cymbalta 40 mg p.o. daily. 4. Seroquel 25 mg p.o. q. 6 hours as needed for agitation. Dictated by Nivia Howard PA-C MD MAVERICK RichardsV/BERNABE /[id number]
[2019-04-13] VITALS: BP 142/86
--- NOTE | 2019-04-13 00:54 | NUR ---
Pulmonary Medicine DATE 04/12/2019 SUBJECTIVE 3 l/MIN oxygen NC delivery of O2 eating well BM in morning walked, with ok breathing REVIEW OF SYSTEMS: stable arthritis, no rash PHYSICAL EXAMINATION: VITAL SIGNS: vital signs noted and reviewed per the chart record. GENERAL: no acute distress now, in bed HEENT: Normocephalic and atraumatic. NECK: Supple. Throat midline. LUNGS: Bilateral air entry, decreased breath sounds, rare rhonchi. CARDIOVASCULAR: S1, S2. No murmurs, rubs, or gallops. ABDOMEN: Soft and nontender. EXTREMITIES: No clubbing. No cyanosis. There is trace edema. INTEGUMENT: No rash or purpura. LABORATORY DATA: k 4.3, cr 0.66. wbc 7.8 IMPRESSION AND PLAN: 1. Atypical chest tightness on admit, per others. 2. Chronic obstructive pulmonary disease. 3. Chronic respiratory failure, hypoxic, hypercapnic. 4. History of anxiety. 5. Cerebrovascular accident history. 6. Chronic right vascular atelectasis/scarring, status post unremarkable bronchoscopy in October 2016 7. Coexisting asthma. 8. Long-time smoker. 9. Atrial fibrillation. 10. Coronary artery disease, status post 40% RCA stenosis. 11. Depression. 12. Gastroesophageal reflux disease. 13. Hypertension. light steroids. Bronchodilators. theophylline. n-acetylcysteine Mobilize the patient. He is not ready to quit smoking despite advice Thank you very much, Dr. Pittman for allowing me a chance to participate in the care of Mr. Castañeda. Please call for questions.
[2019-04-13] MEDS: MORPHINE SULFATE 2 MG/ML SYR 1ML IV PRN ×4 (00:58→09:09)
[2019-04-13] MEDS: ALBUTEROL/IPRATROPIUM 3 ML NEB NEB SCH ×3 (03:00→10:48)
[2019-04-13 04:00] VITALS: BP 166/90
[2019-04-13] MEDS: FAMOTIDINE 20 MG/2 ML VIAL IV SCH (04:57)
--- NOTE | 2019-04-13 05:39 | NUR ---
PT C/O PAIN AND GIVEN MORPHINE .CALL LIGHT WITHIN REACH .CONTINUE TO MONITOR
[2019-04-13 06:16] LABS: BASOPHILS % 0.1 % (0.0-1.0); HEMATOCRIT 31.7 % (38.2-49.6); HEMOGLOBIN 9.1 g/dL (14.0-18.0); LYMPHOCYTES # (AUTO) 0.3 (1.0-3.2); LYMPHOCYTES % 1.9 % (18.0-39.1); MEAN CORPUSCULAR HEMOGLOBIN 24.9 pg (28-32); MEAN CORPUSCULAR HGB CONC 28.7 g/dL (31-35); MEAN CORPUSCULAR VOLUME 86.6 fL (81-99); MONOCYTES # (AUTO) 0.3 (0.2-0.8); NEUTROPHILS # (AUTO) 13.3 (2.1-6.9); NEUTROPHILS % 95.2 % (38.7-80.0); PLATELET COUNT 214 x10e3/uL (140-360); RED BLOOD COUNT 3.66 x10e6/uL (4.3-5.7); RED CELL DISTRIBUTION WIDTH 16.1 % (11.7-14.4)
[2019-04-13 06:40] LABS: INR 0.98; PROTHROMBIN TIME 13.5 seconds (11.9-14.5)
[2019-04-13 06:50] LABS: ANION GAP 14.6 mmol/L (8-16); BLOOD UREA NITROGEN 13 mg/dL (7-26); BUN/CREATININE RATIO 19 (6-25); CALCIUM 8.3 mg/dL (8.4-10.2); CARBON DIOXIDE 32 mmol/L (22-29); CHLORIDE 97 mmol/L (98-107); CREATININE, SERUM 0.69 mg/dL (0.72-1.25); EST GLOMERULAR FILTRATION RATE > 60 ML/MIN (60-); GLUCOSE 141 mg/dL (74-118); POTASSIUM 4.6 mmol/L (3.5-5.1); SODIUM 139 mmol/L (136-145)
--- NOTE | 2019-04-13 07:16 | NUR ---
BEDSIDE REPORT GIVEN TO THE ONCOMING NURSE
[2019-04-13 07:42] VITALS: BP 135/95
[2019-04-13] MEDS ORDERED: PREDNISONE 10 MG TAB PO SCH (09:00)
[2019-04-13] MEDS: VITAMIN C PO SCH (09:00)
[2019-04-13] MEDS: N ACETYL CYSTEINE PO SCH (09:00)
[2019-04-13] MEDS: PANTOPRAZOLE SOD 40 MG TABEC PO SCH (09:15)
[2019-04-13] MEDS: THEOPHYLLINE 200 MG TABCR PO SCH (09:15)
[2019-04-13] MEDS: DULOXETINE HCL 20 MG DELAYED RELEASE PO SCH (09:16)
[2019-04-13] MEDS: FUROSEMIDE 40 MG TAB PO SCH (09:16)
[2019-04-13] MEDS: MIDODRINE HCL 5 MG TABLET PO SCH ×2 (09:17→12:00)
[2019-04-13] MEDS: FOLIC ACID 1 MG TAB PO SCH (09:17)
[2019-04-13] MEDS: LEVETIRACETAM 500 MG TAB PO SCH (09:17)
[2019-04-13] MEDS: RANOLAZINE 500 MG TABSR PO SCH (09:18)
[2019-04-13 09:19] VITALS: BP 135/95
[2019-04-13 11:32] VITALS: BP 159/88
--- NOTE | 2019-04-13 11:37 | NUR ---
PATIENT SHAKING AND VERY UPSET STATING HE IS "IN PAIN AND WANTS HIS PAIN MEDICATION" PRIMARY RN EXPLAINED TO PATIENT AT THIS TIME THAT HE HAS BEEN DISCONTINUED AND ORDERS ARE TO SEND HIM HOME. PATIENT CONTINUES TO BE UPSET AT THIS TIME AND WANTS THE DOCTOR CALLED. DR JIMENEZ CALLED AND MADE AWARE. NO NEW ORDERS RECEIVED AT THIS TIME. PER MD CONTINUE WITH DISCHARGE.
--- NOTE | 2019-04-13 12:12 | Progress Note ---
DATE: 04/13/2019 Psychiatric Progress Note SUBJECTIVE: The patient evaluated and events noted. The patient is in the room. He is sitting up. He is getting breathing treatment. He is calm and cooperative. He states that he is doing good. He denies any depression or anxiety. He denies any hallucination. He denies any suicidal ideation. He reports sleeping and eating well. He denies any side effects from medication. ASSESSMENT: 1. Adjustment disorder, mixed mood. 2. History of depression. PLAN: 1. To continue with Remeron 15 mg p.o. at bedtime. 2. Continue Cymbalta 30 mg p.o. daily. 3. Continue with Seroquel p.r.n. 4. Monitor for mood. 5. Supportive therapy. Dictated by Nivia Howard PA-C Bessy Driscoll MD QTV/MODL /[id number]
--- NOTE | 2019-04-13 12:20 | NUR ---
[facility] [place] CALLED AT THIS TIME. ETA "AFTER 1". WILL CONTINUE TO MONITOR PATIENT AT THIS TIME.
--- NOTE | 2019-04-13 13:00 | NUR ---
RIGHT UPPER ARM PICC REMOVED AT THIS TIME. CATHETER IS INTACT. PATIENT DENIES PAIN AT SITE.
--- NOTE | 2019-04-14 01:18 | NUR ---
Pulmonary Medicine DATE 04/13/2019 SUBJECTIVE 3 l/MIN oxygen eating well reviewed findings with patient REVIEW OF SYSTEMS: stable arthritis, no rash PHYSICAL EXAMINATION: VITAL SIGNS: vital signs noted and reviewed per the chart record. GENERAL: no acute distress now, in bed HEENT: Normocephalic and atraumatic. NECK: Supple. Throat midline. LUNGS: Bilateral air entry, decreased breath sounds, rare rhonchi. CARDIOVASCULAR: S1, S2. No murmurs, rubs, or gallops. ABDOMEN: Soft and nontender. EXTREMITIES: No clubbing. No cyanosis. There is trace edema. INTEGUMENT: No rash or purpura. LABORATORY DATA: per EMR IMPRESSION AND PLAN: 1. Atypical chest tightness on admit, per others. 2. Chronic obstructive pulmonary disease. 3. Chronic respiratory failure, hypoxic, hypercapnic. 4. History of anxiety. 5. Cerebrovascular accident history. 6. Chronic right vascular atelectasis/scarring, status post unremarkable bronchoscopy in October 2016 7. Coexisting asthma. 8. Long-time smoker. 9. Atrial fibrillation. 10. Coronary artery disease, status post 40% RCA stenosis. 11. Depression. 12. Gastroesophageal reflux disease. 13. Hypertension. light steroids. Bronchodilators. theophylline. n-acetylcysteine Mobilize the patient. He is not ready to quit smoking despite advice Outpatient CT chest soon. He is a longstanding clinic patient of mine and can follow there Thank you very much, Dr. Pittman for allowing me a chance to participate in the care of Mr. Castañeda. Please call for questions.
--- NOTE | 2019-04-14 08:58 | Discharge Summary ---
FINAL DISCHARGE DIAGNOSES: 1. Acute exacerbation of chronic obstructive pulmonary disease. 2. Chest pain, atypical in nature. 3. Multiple psychiatric disorders. 4. History of seizures. 5. Poor historian. 6. Polysubstance abuse. 7. Steroid-induced leukocytosis. CONSULTANTS: 1. Pulmonary. 2. Cardiology. PHYSICAL EXAMINATION: VITAL SIGNS: Temperature is 97.2, pulse 72, respiratory rate is 20, blood pressure 135/95, pulse ox 99% on 3 L nasal cannula chronically. LABORATORY DATA: White count 13, hemoglobin 9, hematocrit 32, platelets of 214. Coagulation; PT 13, INR 0.98, PTT 32. Chemistry; sodium 139, potassium 4.6, chloride 97, bicarb 32, anion gap of 14, BUN is 13, creatinine is 0.69, glucose is 141, calcium is 8.3. LFTs within normal range. Albumin 2.8. LDL 65. MICROBIOLOGY: None. IMAGING STUDIES: Chest x-ray showed just hyperinflation concerning for COPD. HOSPITAL COURSE: This is a 63-year-old male with multiple comorbidities. Of note, history of COPD and chronic chest pain and also multiple psychiatric disorders also including history of seizures, presents to the ED with complaints of similar findings of shortness of breath and chest pain. The patient was just recently discharged and was ruled out and was discharged back to his assisted living facility. The patient came in complaining of shortness of breath, started on steroids, neb treatments, and antibiotics and Pulmonary was consulted. The patient improved from his respiratory status back to normal baseline. He already has home O2 already arranged from prior discharges. The patient was cleared for discharge by Pulmonary. As for his chest pain is atypical in nature. Cardiac enzymes were negative. He has had several workups from his cardiac standpoint as well. There is a component that the patient is likely malignant for pain medication IV. The patient was continued on oral pain medication while here as well as IV. Psychiatry was consulted for adjustment for his psych medications. His medications were adjusted accordingly. I will adjust that per his home med reconciliation as well. On discharge, the patient was cleared for discharge by all consultants, Pulmonary, Cardiology, and Psychiatry. On the day of discharge, vital signs were stable, labs reviewed and stable. The patient is seen and evaluated, examined thoroughly on the day of discharge. No other complaints. The patient verbalized understanding and agrees to plan of care to follow up accordingly as an outpatient with primary care physician in 1 week and Pulmonary and Cardiology in 2 weeks' time. MEDICATIONS: See med reconciliation form. DISPOSITION: Home. CONDITION: Stable. DIET: Heart healthy. DISCHARGE INSTRUCTIONS: In the event of any worsening symptoms, the patient was advised to come back to the ED for further evaluation. TIME SPENT: Discharge summary took greater than 35 minutes. MD REVA Gan/BERNABE /[id number]
== END 2019-04-13 14:13 | disposition home or self-care (01) ==
LOC: ER 12:20 → ERHOLD 16:14 → MED/SURG3 19:56
PROVIDERS: ADMIT Internal Medicine; ATTEND Internal Medicine
DX: J44.1 Chronic obstructive pulmonary disease with (acute) exacerbation (principal); G40.909 Epilepsy, unspecified, not intractable, without status epilepticus; Z95.810 Presence of automatic (implantable) cardiac defibrillator; R07.89 Other chest pain; J96.12 Chronic respiratory failure with hypercapnia; J96.11 Chronic respiratory failure with hypoxia; F41.9 Anxiety disorder, unspecified; Z86.73 Personal history of transient ischemic attack (TIA), and cerebral infarction without residual deficits; F17.210 Nicotine dependence, cigarettes, uncomplicated; I25.10 Atherosclerotic heart disease of native coronary artery without angina pectoris; K21.9 Gastro-esophageal reflux disease without esophagitis; I10 Essential (primary) hypertension; F32.9 Major depressive disorder, single episode, unspecified; I48.20 Chronic atrial fibrillation, unspecified; Z91.19 Patient's noncompliance with other medical treatment and regimen; F43.23 Adjustment disorder with mixed anxiety and depressed mood; D72.829 Elevated white blood cell count, unspecified
CPT/HCPCS: 36415 ×3; 36569; 71045; 80048; 80053 ×2; 80061; 82550 ×2; 82553 ×2; 83036; 83735; 83880; 84484 ×2; 85025 ×3; 85610 ×2; 85730; 93005; 94640 ×3; 97161; 99284; G0378 ×3; J1885; J1956 ×2; J2270 ×2; J2405; J2930 ×2; J7050; J7512; S0164 ×2